=== PATIENT | female | born 1940 | race Caucasian/White ===

== ENCOUNTER → 2016-08-25 | Outpatient (CLI) | payer OTHER, BC ==
[~2016-08-25] MED LIST: ACET-1256 PO; APIX1TAB3 PO; ASCA500 PO; ASPI-435 PO; ATV5X PO; B COCAP3 PO; BSP/5 PO; CALC-51 PO; CARV6.25 PO; CHOL100040 PO; DIAZ2TAB PO; FLV400 PO; FOLI800T PO; FURO40TA3 PO; GFNSR600 PO; GUAISYP4 PO; INSU0.01 SC; INSU1INJ16 SC; INSU1INJ16 SQ; INSUINJ7 SC; IPRA1AER2 INH; LVQ750 PO; MAGN1TAB19 PO; MULT-506 PO; NVLG SQ; NVLRPUC SQ; OXYC1TAB3 PO; PRED10TA PO; PREG200C PO; SCPTP TD; VENL37.593 PO
[2016-08-25 16:46] LABS: HEMATOCRIT 40.1 % (37-47); MEAN CELL VOLUME 91.1 fL (80-100); MEAN CORPUSCULAR HEMOGLOBIN 28.9 pg (25-34); MEAN CORPUSCULAR HGB CONC 31.7 g/dl (32-36); MEAN PLATELET VOLUME 11.9 fL (7.4-10.4); PLATELET COUNT 150 K/uL (130-400)
[2016-08-25 16:59] LABS: URINE APPEARANCE CLEAR (CLEAR); URINE BILIRUBIN NEG (NEG); URINE COLOR YELLOW; URINE NITRITE NEG (NEG); URINE PH 5.5 (4.5-7.5); URINE SPECIFIC GRAVITY 1.018 (1.000-1.030); UROBILINOGEN NEG (NEG)
[2016-08-25 17:07] LABS: MANUAL MICROSCOPIC REQUIRED? NO; REVIEW REQ? NO
[2016-08-25 17:09] LABS: URINE PROTIEN/CREAT RATIO 0.3 (0-0.2); URINE TOTAL PROTEIN 34.8 mg/dl (0-11.9)
[2016-08-25 17:10] LABS: ALT/SGPT 23 U/L (12-78); AST/SGOT 17 U/L (15-37); BLOOD UREA NITROGEN 22 mg/dl (7-18); BUN/CREATININE RATIO 17.2 (10-20); CALCIUM 8.3 mg/dl (8.5-10.1); CARBON DIOXIDE 26 mmol/L (21-32); CHLORIDE 106 mmol/L (98-107); GLUCOSE 220 mg/dl (70-99); POTASSIUM 4.1 mmol/L (3.5-5.1); SODIUM 144 mmol/L (136-145)
[2016-08-25 17:15] LABS: ALB/GLOB RATIO 1.2 (0.9-2); ALKALINE PHOSPHATASE 69 U/L (45-117)
== END | disposition home or self-care (01) ==
LOC: C.LAB1850 15:30
PROVIDERS: ATTEND Internal Medicine Nephrology
DX: I12.9 Hypertensive chronic kidney disease with stage 1 through stage 4 chronic kidney disease, or unspecified chronic kidney disease (principal); N18.3 Chronic kidney disease, stage 3 (moderate); E11.9 Type 2 diabetes mellitus without complications; E55.9 Vitamin D deficiency, unspecified

== ENCOUNTER 2016-11-03 04:47 | Emergency (ER) | payer OTHER, BC ==
[~2016-11-03] VITALS: Ht 154.9 cm; Wt 90.6 kg
[~2016-11-03 04:47] MED LIST changes: -ASCA500 PO; -ASPI-435 PO; -B COCAP3 PO; -BSP/5 PO; -CALC-51 PO; -CHOL100040 PO; -FOLI800T PO; -INSU1INJ16 SQ; -MAGN1TAB19 PO; -MULT-506 PO; -NVLG SQ; -NVLRPUC SQ; -PREG200C PO
[2016-11-03 04:55] VITALS: TEMP 36.7; Ht 154.9 cm; Wt 90.6 kg
[2016-11-03] MEDS ORDERED: LIDOCAINE/EPINEPH/TETRACAINE 1 EA SYR EXT STA (05:11)
[2016-11-03] MEDS ORDERED: LIDOCAINE/EPINEPH/TETRACAINE 1 EA SYR ONE (05:19)
[2016-11-03 06:08] LABS: BUN/CREATININE RATIO 24.3 (10-20); CALCIUM 8.6 mg/dl (8.5-10.1); CREATININE 1.2 mg/dl (0.60-1.20); POTASSIUM 3.9 mmol/L (3.5-5.1)
[2016-11-03 06:12] LABS: BASO % 0.2 %; BASO ABS # 0.01 K/uL (0-0.2); COMPLETE YES; EOS % 2.9 %; HEMATOCRIT 39.3 % (37-47); IG% 0.5 %; LARGE PLATELETS 1+; LYMPH % 22.4 %; LYMPH ABS # 1.24 K/uL (1.2-3.4); MEAN CELL VOLUME 91.4 fL (80-100); MEAN CORPUSCULAR HEMOGLOBIN 30.5 pg (25-34); MEAN CORPUSCULAR HGB CONC 33.3 g/dl (32-36); MONO % 10.8 %; NEUT % 63.2 %; PLATELET COUNT 120 K/uL (130-400); PLT ESTIMATE NORMAL; POLYCHROMASIA 1+; WHITE BLOOD COUNT 5.53 K/uL (4.8-10.8)
[2016-11-03] MEDS ORDERED: PROMETHAZINE HCL INJ 12.5 MG in SODIUM CHLORIDE 0.9% 50ML 50 ML IV STA (06:15)
--- NOTE | 2016-11-03 06:36 | EMERGENCY ROOM VISIT NOTE ---
ED Visit Note First contact with patient: 05:00 I have personally evaluated and examined this patient. I agree with assessment and plan of Lambert Bansal PA-C. Fell striking right forehead.
[2016-11-03 06:43] VITALS: O2SAT 95
[2016-11-03] MEDS ORDERED: INSU1INJ16 SQ ×3 (07:01)
--- NOTE | 2016-11-03 07:06 | DIAGNOSTIC IMAGING REPORT ---
CT SCAN OF THE BRAIN WITHOUT IV CONTRAST CLINICAL HISTORY: Fall. Dizziness. Head injury. COMPARISON STUDY: CT of the brain dated 09/09/2015. TECHNIQUE: Unenhanced axial CT scan of the brain is performed from the vertex to the skull base. CT DOSE: 614.27 mGy.cm FINDINGS: Brain parenchyma: There are age-related involutional changes noting minimal subcortical and periventricular microangiopathic change. There is no hemorrhage, mass effect, or evidence of acute territorial ischemia by CT criteria. Finn-white matter is preserved. No extra-axial fluid collection is seen. Ventricles, sulci, cisterns: Prominent secondary to involutional change. Intracranial vasculature: There is atherosclerotic calcification of the cavernous carotid and vertebral arteries. Calvarium: The skeletal structures are osteopenic. There is no depressed calvarial fracture. Sinuses and mastoids: There is trace mucosal thickening within the left maxillary antrum. The remaining visualized paranasal sinuses are clear. The mastoid air cells are well pneumatized. Orbits: The bony orbits are grossly intact. There are bilateral ocular lens implants. IMPRESSION: There is no hemorrhage, mass effect, or evidence of acute territorial ischemia by CT criteria. Electronically signed by: Eliceo Hart M.D. 11/03/2016 7:04 AM Dictated Date/Time: 11/03/2016 7:02 AM
[2016-11-03] MEDS ORDERED: ACETAMINOPHEN 500 MG TAB PO STA (07:11)
--- NOTE | 2016-11-03 07:28 | EMERGENCY ROOM VISIT NOTE ---
History First contact with patient: 05:00 Chief Complaint: LACERATION/CUT (SUT/DERMABOND) Stated Complaint: FELL HIT HEAD,LAC ABOVE RIGHT EYE Nursing Triage Summary: Pt has hx of night terrors. Pt was asleep and thinks she got out of bed while sleeping and had fallen and hit head of dresser. Pt has approx. one inch laceration to right eyebrow. History of Present Illness The patient is a 76 year old female who presents to the Emergency Department by private vehicle for evaluation of a forehead laceration after sustaining a fall out of bed. She reports that while sleeping, she was having a dream that her was in a fight with his neighbor. She remembers waking up on the ground after falling. She had immediate pain. Her awoke with her falling as well. There was no seizure-like activity. There was no postictal state. She describes pain to the RIGHT-sided forehead as well as some nausea. She reports no history of head injuries. The patient does take Eliquis daily. She rates her current discomfort as a 5/10. She reports some dizziness which she reports is not uncommon. She denies any blurry vision, double vision, slurred speech, facial droop, unilateral weakness/numbness, neck pain, chest pain, abdominal pain, or extremity pain. She reports that she was on an antibiotic recently for a urinary tract infection and has been "sore" since. Review of Systems A complete 10-point Review of Systems was discussed with the patient, with pertinent positives and negatives listed in the History of Present Illness. All remaining Review of Systems questions can be considered negative unless otherwise specified. Past Medical/Surgical History Medical Problems: (1) Atrial Fibrillation (2) Atrial fibrillation or flutter (3) C. 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 (7) H/O non-ST elevation myocardial infarction (NSTEMI) (8) HTN (hypertension) (9) Hyperlipidemia Nec/Nos (10) Large Cell Lymphoma, Unsp Site, Extranodal & Solid Organ (11) Neutropenia (12) Peripheral neuropathy Surgical Problems: (1) Knee Joint Replacement Status Family History Diabetes mellitus Hypertension Social History Smoking Status: Never Smoker Alcohol Use: none Drug Use: none Marital Status: Housing Status: lives with significant other Occupation Status: retired Current/Historical Medications Scheduled Apixaban (Eliquis), 5 MG PO BID Aspirin (Aspirin 81), 1 TAB PO QAM B Complex W/ C (Vitamin B Complex-C), 1 CAP PO QAM Calcium Carbonate-Vitamin D (Calcium), 1 TAB PO HS Carvedilol (Coreg), 6.25 MG PO BID Cholecalciferol (Vitamin D-1000), 2,000 UNITS PO QAM Folic Acid (Folic Acid), 1 TAB PO BID Insulin Aspart (Novolog), 60 UNITS SQ HS Insulin Regular (Human) (Novolin R Relion), 18 UNITS SQ DAILY WITH BREAKFAST Insulin Regular (Human) (Novolin R Relion), 26 UNITS SQ DAILY WITH LUNCH Insulin Regular (Human) (Novolin R Relion), 28 UNITS SQ DAILY WITH SUPPER Magnesium Oxide (Mg Supplement (Magnesium Oxide), 1 TAB PO BID Multivitamin (Multivitamin), 1 TAB PO QAM Pregabalin (Lyrica), 200 MG PO BID Scheduled PRN Diazepam (Valium), 2 MG PO DAILY PRN for Anxiety Allergies Coded Allergies: Eptifibatide (Verified Allergy, Severe, ANAPHYLAXIS, 11/03/16) PT STATED SHE CODED TWICE WITH MED Wasp (Verified Allergy, Severe, WASP VENOM PROTEIN-ANAPHYLAXIS, 11/03/16) Azithromycin (Verified Allergy, Intermediate, palpatations, 11/03/16) Atorvastatin (Verified Allergy, Unknown, MUSCLE PAIN, 11/03/16) Cortisone (Verified Allergy, Unknown, INCREASES SUGAR AND VOMITING?, ) Ezetimibe (Verified Allergy, Unknown, MUSCLE PAIN, 11/03/16) Hydralazine (Verified Allergy, Unknown, VOMITING, 11/03/16) Ibuprofen (Verified Allergy, Unknown, VOMITING AND DIARRHEA, 11/03/16) Iodine (Verified Allergy, Unknown, SHELLFISH - VOMITING, 11/03/16) Shellfish (Verified Allergy, Unknown, VOMITING, 11/03/16) Simvastatin (Verified Allergy, Unknown, MUSCLE PAIN, 11/03/16) HMG-CoA-R Inhibitors (Verified Adverse Reaction, Intermediate, STATINS - NAUSEA/RASH; TOLERATES CRESTOR, 11/03/16) Warfarin (Verified Adverse Reaction, Intermediate, EXTREME BLEEDING TIMES , 11/03/16) Codeine (Verified Adverse Reaction, Mild, VOMITING, 11/03/16) Gemfibrozil (Verified Adverse Reaction, Mild, NAUSEA, 11/03/16) Meperidine (Verified Adverse Reaction, Mild, VOMITING, 11/03/16) Ondansetron (Verified Adverse Reaction, Mild, vomiting, 11/03/16) Sulfa Antibiotics (Verified Adverse Reaction, Unknown, VOMITING, 11/03/16) Physical Exam Vital Signs Date Time Temp Pulse Resp B/P Pulse Ox O2 Delivery O2 Flow Rate FiO2 11/03/16 08:10 63 20 159/66 96 11/03/16 06:43 82 18 134/84 95 Nasal Cannula 2.0 11/03/16 06:43 95 Nasal Cannula 2.0 11/03/16 04:55 36.7 65 18 138/67 91 Room Air Pain Rating (0-10): 5 Physical Exam VITAL SIGNS - Vital signs and nursing notes were reviewed. GENERAL - 76-year-old female appearing her stated age. Communicates well with provider and answers questions appropriately. SKIN - 3.0 cm linear laceration noted to the RIGHT-sided forehead. Edges gape apart with traction. No deep structures appreciated. HEAD - Normocephalic. No Vines's Sign or Raccoon's Eyes. No depressed skull fractures palpable. EYES - PERRL with EOMI bilaterally. Without subconjunctival hemorrhage. Palpebral conjunctiva pink and moist with no injection. EARS - No deformities of external structures noted on gross examination bilaterally. No hemotympanum present. No tympanic perforation noted. Handle of malleus, umbo, cone of light, pars tensa/flaccid all easily visualized. NOSE - Midline and without cyanosis. No epistaxis or clear watery discharge noted. Septum midline without deviation. No septal hematoma noted. No overlying ecchymosis noted. MOUTH/OROPHARYNX - Without perioral cyanosis. Tongue midline with equal elevation of palate bilaterally. No blood noted in the oropharynx. No tonsillar hypertrophy, erythema, or exudates noted. No dental fractures noted. NECK - FROM assessed. No nuchal rigidity. No tenderness to palpation over the cervical spinous processes. No cervical paraspinal muscle tenderness noted. LUNGS - Chest wall symmetric without accessory muscle use, intercostals retractions, or central cyanosis. Normal vesicular breath sounds CTA B/L. No wheezes, rales, or rhonchi appreciated. CARDIAC - RRR with S1/S2. No murmur, rubs, or gallops appreciated. ABDOMEN - Abdominal contour obese without pulsations or visible masses. BS normoactive all four quadrants. EXTREMITIES - No gross deformities noted of the extremities. +5/5 strength noted in UE/LE bilaterally. NEUROLOGIC - Cranial nerves II through XII grossly intact. Sensory intact to light touch throughout. Patient able to perform rapid alternating movements appropriately. Negative Pronator Drift. PSYCH - A&Ox3 and cooperates fully with examiner. Pt is very pleasant and interacts well with examiner. Medical Decision & Procedures ER Provider Diagnostic Interpretation: Radiological imaging and reports were reviewed by myself. Radiologist's Interpretation as follows: CT SCAN OF THE BRAIN WITHOUT IV CONTRAST CLINICAL HISTORY: Fall. Dizziness. Head injury. COMPARISON STUDY: CT of the brain dated 09/09/2015. TECHNIQUE: Unenhanced axial CT scan of the brain is performed from the vertex to the skull base. CT DOSE: 614.27 mGy.cm FINDINGS: Brain parenchyma: There are age-related involutional changes noting minimal subcortical and periventricular microangiopathic change. There is no hemorrhage, mass effect, or evidence of acute territorial ischemia by CT criteria. Finn-white matter is preserved. No extra-axial fluid collection is seen. Ventricles, sulci, cisterns: Prominent secondary to involutional change. Intracranial vasculature: There is atherosclerotic calcification of the cavernous carotid and vertebral arteries. Calvarium: The skeletal structures are osteopenic. There is no depressed calvarial fracture. Sinuses and mastoids: There is trace mucosal thickening within the left maxillary antrum. The remaining visualized paranasal sinuses are clear. The mastoid air cells are well pneumatized. Orbits: The bony orbits are grossly intact. There are bilateral ocular lens implants. IMPRESSION: There is no hemorrhage, mass effect, or evidence of acute territorial ischemia by CT criteria. Laboratory Results 11/03/16 05:32 Red Blood Count 4.30, Mean Corpuscular Volume 91.4, Mean Corpuscular Hemoglobin 30.5, Mean Corpuscular Hemoglobin Concent 33.3, Mean Platelet Volume 12.0, Neutrophils (%) (Auto) 63.2, Lymphocytes (%) (Auto) 22.4, Monocytes (%) (Auto) 10.8, Eosinophils (%) (Auto) 2.9, Basophils (%) (Auto) 0.2, Neutrophils # (Auto ) 3.49, Lymphocytes # (Auto) 1.24, Monocytes # (Auto) 0.60, Eosinophils # (Auto ) 0.16, Basophils # (Auto) 0.01 11/03/16 05:32 Test 11/03/16 05:32 White Blood Count 5.53 K/uL (4.8-10.8) Red Blood Count 4.30 M/uL (4.2-5.4) Hemoglobin 13.1 g/dL (12.0-16.0) Hematocrit 39.3 % (37-47) Mean Corpuscular Volume 91.4 fL (80-100) Mean Corpuscular Hemoglobin 30.5 pg (25-34) Mean Corpuscular Hemoglobin Concent 33.3 g/dl (32-36) Platelet Count 120 K/uL (130-400) Mean Platelet Volume 12.0 fL (7.4-10.4) Neutrophils (%) (Auto) 63.2 % Lymphocytes (%) (Auto) 22.4 % Monocytes (%) (Auto) 10.8 % Eosinophils (%) (Auto) 2.9 % Basophils (%) (Auto) 0.2 % Neutrophils # (Auto) 3.49 K/uL (1.4-6.5) Lymphocytes # (Auto) 1.24 K/uL (1.2-3.4) Monocytes # (Auto) 0.60 K/uL (0.11-0.59) Eosinophils # (Auto) 0.16 K/uL (0-0.5) Basophils # (Auto) 0.01 K/uL (0-0.2) RDW Standard Deviation 56.0 fL (36.4-46.3) RDW Coefficient of Variation 16.8 % (11.5-14.5) Immature Granulocyte % (Auto) 0.5 % Immature Granulocyte # (Auto) 0.03 K/uL (0.00-0.02) Platelet Estimate NORMAL Large Platelets 1+ Polychromasia 1+ Anion Gap 7.0 mmol/L (3-11) Est Creatinine Clear Calc Drug Dose 41.5 ml/min Estimated GFR () 51.2 Estimated GFR (Non- 44.2 BUN/Creatinine Ratio 24.3 (10-20) Calcium Level 8.6 mg/dl (8.5-10.1) Total Bilirubin 0.4 mg/dl (0.2-1) Direct Bilirubin 0.1 mg/dl (0-0.2) Aspartate Amino Transf (AST/SGOT) 18 U/L (15-37) Alanine Aminotransferase (ALT/SGPT) 21 U/L (12-78) Alkaline Phosphatase 73 U/L (45-117) Total Creatine Kinase 35 U/L (26-192) Total Protein 6.6 gm/dl (6.4-8.2) Albumin 3.1 gm/dl (3.4-5.0) Medications Administered Medications (Trade) Dose Ordered Sig/Carmen Route Start Time Stop Time Status Last Admin Dose Admin Tetracaine/ Epinephrine/ Lidocaine 1 ea 1 ea NOW STAT EXT 11/03/16 05:11 11/03/16 05:12 DC 11/03/16 05:14 1 EA Promethazine HCl/ Sodium Chloride (Phenergan Inj/ Nss 50ml) 50.5 ml @ 204 mls/hr NOW STAT IV 11/03/16 06:15 11/03/16 06:29 DC 11/03/16 06:34 204 MLS/HR Acetaminophen (Tylenol Tab) 1,000 mg NOW STAT PO 11/03/16 07:11 11/03/16 07:12 DC 11/03/16 07:23 1,000 MG Heparin Sodium (Porcine) (Heparin 100 Unit/ml 5ml Flush) 5 ml STK-MED ONCE .ROUTE 11/03/16 08:00 11/03/16 08:01 DC 11/03/16 08:01 5 ML Procedure Costs and benefits of performing primary wound closure versus no repair were discussed with the patient who verbalizes understanding. Verbal consent was obtained prior to performing the procedure. LET Gel was applied to the laceration with an occlusive dressing and allowed to set for greater than 45 minutes. After proper anesthetization, the wound was cleansed and prepped in the typical sterile fashion utilizing normal saline and Betadine. The wound was further examined and demonstrated a full-thickness laceration as described above. The wound was copiously irrigated with normal saline and Betadine. The wound was closed using 8 simple interrupted, 6-0 Nylon sutures with the wound edges being well approximated. Patient tolerated the procedure well. No complications were met. The wound was cleansed and dressed with a Bacitracin dressing. ED Course Patient was seen and evaluated by myself. Labs were drawn, saline lock in place. CT of the head was obtained. Laboratory results demonstrate no acute leukocytosis, worrisome anemia, or bandemia. The patient has no significant electrolyte abnormalities. Patient complains of headache as well as intense nausea. She is unable to take Zofran as she is allergic. She has used Phenergan in the past with success. On review of her record, she has had IV Phenergan. She was treated with 12.5 mg IV Phenergan. Laceration repair was performed by myself without issue. Laboratory results and imaging studies were reviewed with the patient who acknowledges understanding. The patient was monitored in the emergency department and discharged home in good condition with her driving. Medical Decision Given the patient's presentation and stated complaints, I did elect to perform the above-mentioned workup. The patient presents today after sustaining a facial laceration from a fall from bed. She awoke from her sleep after the injury. Neurological exam is completely unremarkable. She has no focal neurological deficits. CT the head was unremarkable. Laboratory assessment demonstrates no acute findings. The patient does take an anticoagulant daily secondary to atrial fibrillation. Her laceration was repaired without issue. She was monitored in the emergency department without change in neurological status. The patient was discharged home with the intent for close follow-up with her primary care provider. In the evaluation and treatment of this patient, the following differential diagnoses were considered: Concussion, Contrecoup Injury, Brain Tumor, Depression, Encephalitis, Hypothyroidism, Meningitis, CVA, TIA, Migraine, Cluster Headache, Intracranial Abnormality, Intracranial Hemorrhage, Subdural Hematoma, Subarachnoid Hemorrhage, Hydrocephalus. Impression Primary Impression: Fall from bed Additional Impression: Facial laceration Departure Information Dispostion Home / Self-Care Condition GOOD Referrals Lizet Jeter D.O. (PCP) Patient Instructions ED Head Injury Closed, ED Laceration Face Sutr Tape , [facility] Additional Instructions You have been treated in the Emergency Department for a Closed Head Injury. CT Scan of your head/brain demonstrated no acute bleeding or other abnormalities. This does not completely rule out the risk for future damage to the brain. You have received 8 sutures on your face. These sutures are NOT dissolvable and WILL need to be removed by a health care provider in 7 days. You can return to the Emergency Department or contact your Primary Care Provider to have the sutures removed. Proper wound care is essential for adequate wound healing and infection prevention. You can shower and clean the wound with soap and water. Do not scour over the wound, pat dry with a towel. Do not submerse the wound (i.e. bathe or dish wash) until the sutures have been removed. You can use an antibiotic ointment with a dressing over the wound for the next 3-4 days. After this time you may leave the wound dry and open to the air. If crust develops over the wound you can use a Q-tip to apply a 1:1 peroxide:water solution to clean the wound. Look for signs of infection of the wound including: increased pain, swelling, foul discharge, streaking, or increased temperature. If any of these are noticed you should return to the Emergency Department for further assessment and treatment. As with any laceration you may have received nerve damage to the surrounding tissues. This damage may or may not be permanent. You should keep the area covered with sunscreen for the first 6 months to 1 year when at risk for exposure to help minimize scarring. For pain control, you can use the following [id number] medicines (if >12 yo): - Regular strength (325mg/tab) Tylenol (acetaminophen) 2 tabs every 4-6 hours as needed. Do not exceed 12 tablets in a 24 hour period. Avoid taking more than 4 grams (4000 mg) of Tylenol per day. This includes any other sources of acetaminophen you may take on a regular basis. - Regular strength (200 mg/tab) Advil (ibuprofen) 1-2 tabs every 4-6 hours as needed. Do not exceed a dose of 3200 mg per day. You should relax in a quiet, dark place for the rest of the day. Avoid any possible triggers including: cigarette smoke, caffeine, nicotine, chocolate, wine, beer, loud noises or music, or bright lights. You should schedule a follow-up appointment in 2-3 days with your Primary Care Provider or established Neurologist for further evaluation and treatment of your Headache. Return to the Emergency Department if your current symptoms worsen despite treatment course outlined above, or if you develop any of the following symptoms : intractable pain despite aforementioned treatment course, visual disturbances , loss of vision, unilateral weakness or facial drooping, slurring of speech, loss of coordination, or loss of consciousness. Problem Qualifiers Primary Impression: Fall from bed Encounter type: initial encounter Qualified Codes: W06.XXXA - Fall from bed , initial encounter Additional Impression: Facial laceration Encounter type: initial encounter Qualified Codes: S01.81XA - Laceration without foreign body of other part of head, initial encounter
[2016-11-03 08:10] VITALS: BP 159/66; PULSE 63; O2SAT 96
[2017-02-28] MEDS ORDERED: NVLG SQ (06:54)
[2017-02-28] MEDS ORDERED: MULT-506 PO (08:26)
[2017-02-28] MEDS ORDERED: ASPI-435 PO (11:16)
[2017-02-28] MEDS ORDERED: MAGN1TAB19 PO (11:16)
[2017-02-28] MEDS ORDERED: CALC-51 PO (11:16)
[2017-02-28] MEDS ORDERED: CHOL100040 PO (13:59)
[2017-02-28] MEDS ORDERED: B COCAP3 PO (13:59)
[2017-02-28] MEDS ORDERED: ASCA500 PO (15:08)
== END 2016-11-03 08:12 | disposition home or self-care (01) ==
LOC: C.EDB 04:50
DX: S01.81XA Laceration without foreign body of other part of head, initial encounter (principal); W06.XXXA Fall from bed, initial encounter; I48.91 Unspecified atrial fibrillation; I48.92 Unspecified atrial flutter; E11.9 Type 2 diabetes mellitus without complications; I10 Essential (primary) hypertension; E78.5 Hyperlipidemia, unspecified; I25.2 Old myocardial infarction; G62.9 Polyneuropathy, unspecified; Z85.72 Personal history of non-Hodgkin lymphomas; Z96.659 Presence of unspecified artificial knee joint; Z79.82 Long term (current) use of aspirin; Z79.4 Long term (current) use of insulin; Z79.899 Other long term (current) drug therapy; Z88.1 Allergy status to other antibiotic agents; Z88.2 Allergy status to sulfonamides; Z88.5 Allergy status to narcotic agent; Z88.8 Allergy status to other drugs, medicaments and biological substances; Z91.018 Allergy to other foods; Z91.09 Other allergy status, other than to drugs and biological substances; Z83.3 Family history of diabetes mellitus; Z82.49 Family history of ischemic heart disease and other diseases of the circulatory system

== ENCOUNTER 2016-11-29 14:26 | Emergency (ER) | payer OTHER, BC ==
[~2016-11-29] VITALS: Ht 154.9 cm; Wt 89.4 kg
[~2016-11-29 14:26] MED LIST changes: -ACET-1256 PO; -ATV5X PO; -FURO40TA3 PO; -GFNSR600 PO; -GUAISYP4 PO; -INSU0.01 SC; -INSU1INJ16 SC; +INSU1INJ16 SQ; -INSUINJ7 SC; -IPRA1AER2 INH; -LVQ750 PO; -OXYC1TAB3 PO; -PRED10TA PO; -SCPTP TD; -VENL37.593 PO
[2016-11-29 14:35] VITALS: TEMP 36.6
[2016-11-29] MEDS ORDERED: SODIUM CHLORIDE 0.9% 1000ML 1,000 ML IV STA (14:56)
[2016-11-29] MEDS ORDERED: PROCHLORPERAZINE 5 MG/ML 2 ML VIAL IM STA (14:56)
[2016-11-29] MEDS ORDERED: SODIUM CHLORIDE 0.9% 1000ML 1,000 ML IV SCH (14:56)
[2016-11-29] MEDS ORDERED: MAGNESIUM SULFATE 1GM / D5W 1 GM BAG IV STA (14:56)
[2016-11-29] MEDS ORDERED: DiphenhydrAMINE HCL 50 MG/ML VIAL IV STA (14:56)
[2016-11-29 14:59] VITALS: O2SAT 95
[2016-11-29 15:00] VITALS: Ht 154.9 cm; Wt 89.4 kg
[2016-11-29] MEDS ORDERED: ACETAMINOPHEN 500 MG TAB PO STA (15:41)
[2016-11-29 15:49] LABS: BASO % 0.4 %; BASO ABS # 0.02 K/uL (0-0.2); COMPLETE YES; EOS % 2.5 %; HEMATOCRIT 40.3 % (37-47); IG% 0.5 %; LYMPH % 22.1 %; LYMPH ABS # 1.22 K/uL (1.2-3.4); MEAN CELL VOLUME 91.4 fL (80-100); MEAN CORPUSCULAR HEMOGLOBIN 29.9 pg (25-34); MEAN CORPUSCULAR HGB CONC 32.8 g/dl (32-36); MEAN PLATELET VOLUME 11.9 fL (7.4-10.4); MONO % 6.5 %; PLATELET COUNT 131 K/uL (130-400); RED BLOOD COUNT 4.41 M/uL (4.2-5.4); WHITE BLOOD COUNT 5.52 K/uL (4.8-10.8)
[2016-11-29 16:01] LABS: PARTIAL THROMBOPLASTIN RATIO 1.1; PROTHROMBIN TIME (PATIENT) 10.4 SECONDS (9.0-12.0)
[2016-11-29 16:04] LABS: CALCIUM 8.5 mg/dl (8.5-10.1)
--- NOTE | 2016-11-29 16:05 | DIAGNOSTIC IMAGING REPORT ---
CT HEAD WITHOUT CONTRAST (CT) CLINICAL HISTORY: Stroke NAUSEA AND DIZZINESS LEFT-SIDED NUMBNESS COMPARISON STUDY: 11/03/2016 TECHNIQUE: Axial CT of the brain is performed from the vertex to the skull base. IV contrast was not administered for this examination. CT DOSE: 1441.90 mGycm FINDINGS: No intraparenchymal masses are visualized in this noncontrast study. There is no CT evidence of acute cortical infarction. There are chronic bilateral subdural hematomas/hygromas. The collection on the right is minimally larger having increased from 7 mm to 10 mm. There are minimal white matter hypodensities likely on a small vessel basis. There is no evidence of pathologic ventricular dilatation. There is no evidence of acute sinusitis IMPRESSION: 1. Chronic bilateral subdural hematomas/hygromas with minimal interval increase in the size of the right-sided collection which have increased from 7 mm to 10 mm. Electronically signed by: Olaf Muir M.D. 11/29/2016 4:04 PM Dictated Date/Time: 11/29/2016 3:57 PM
[2016-11-29 16:08] LABS: BUN/CREATININE RATIO 21.8 (10-20); CREATININE 1.1 mg/dl (0.60-1.20); POTASSIUM 4.1 mmol/L (3.5-5.1)
[2016-11-29 16:12] LABS: CKMB/CK RATIO 2.9 (0-3.0)
[2016-11-29] MEDS ORDERED: PROCHLORPERAZINE 5 MG/ML 2 ML VIAL IV STA (16:12)
--- NOTE | 2016-11-29 16:17 | DIAGNOSTIC IMAGING REPORT ---
CHEST ONE VIEW PORTABLE CLINICAL HISTORY: Stroke mental status change COMPARISON STUDY: 06/22/2016 FINDINGS: Moderate cardiac megaly. Mild congestive failure. FM smooth. IMPRESSION: Mild congestive heart failure. Electronically signed by: Luciano Longoria M.D. 11/29/2016 4:16 PM Dictated Date/Time: 11/29/2016 4:16 PM
[2016-11-29 16:30] LABS: URINE APPEARANCE CLEAR (CLEAR); URINE BILIRUBIN NEG (NEG); URINE COLOR YELLOW; URINE NITRITE NEG (NEG); URINE SPECIFIC GRAVITY 1.012 (1.000-1.030); UROBILINOGEN NEG (NEG); ZZUR CULT IF INDIC CLEAN CATCH NO
[2016-11-29 16:35] LABS: MANUAL MICROSCOPIC REQUIRED? NO; REVIEW REQ? NO
--- NOTE | 2016-11-29 16:57 | EMERGENCY ROOM VISIT NOTE ---
History Report prepared by Christian: Rishi Hammond Under the Supervision of: Dr. Arun Marshall M.D. First contact with patient: 14:44 Chief Complaint: STROKE SYMPTOMS Stated Complaint: NUMBNESS LEFT SIDE OF FACE, N, DIZZY, WEAK History of Present Illness The patient is a 76 year old female who presents to the Emergency Room with complaints of intermittent left sided facial numbness beginning 2-3 weeks ago. She states that the numbness is primarily in her lips and scalp. She also complains of facial tingling, headaches, nausea, and visual changes. The patient feels that her visual changes are what cause her nausea. She denies any abdominal pain. She notes that her numbness is often present along with her headaches. The patient also notes that her prevention coordinator took of her of amiodarone recently. She has a history of four heart attacks and has four stents in [address]. She notes that she has a heart monitor on for a-fib and a- flutter. The patient also notes that she fell a few weeks ago and has been experiencing her symptoms since then. Source of History: patient Onset: 2-3 weeks ago Position: head (left face) Quality: numbness Timing: intermittent Associated Symptoms: + headache, + nausea, No abdominal pain Note: The patient also complains of facial tingling and visual changes. Review of Systems See HPI for pertinent positives & negatives. A total of 10 systems reviewed and were otherwise negative. Past Medical & Surgical Medical Problems: (1) Atrial Fibrillation (2) Atrial fibrillation or flutter (3) C. 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 (7) H/O non-ST elevation myocardial infarction (NSTEMI) (8) HTN (hypertension) (9) Hyperlipidemia Nec/Nos (10) Large Cell Lymphoma, Unsp Site, Extranodal & Solid Organ (11) Neutropenia (12) Peripheral neuropathy Surgical Problems: (1) Knee Joint Replacement Status Family History Diabetes mellitus Hypertension Social History Smoking Status: Never Smoker Alcohol Use: none Drug Use: none Marital Status: Housing Status: lives with significant other Occupation Status: retired Current/Historical Medications Scheduled Apixaban (Eliquis), 5 MG PO BID Ascorbic Acid (Vitamin C), 500 MG PO QAM Aspirin (Aspirin 81), 1 TAB PO QAM B Complex W/ C (Vitamin B Complex-C), 1 CAP PO QAM Calcium Carbonate-Vitamin D (Calcium), 1 TAB PO BID Carvedilol (Coreg), 3.125 MG PO BID Cholecalciferol (Vitamin D-1000), 2,000 UNITS PO QAM Folic Acid (Folic Acid), 1 TAB PO BID Insulin Aspart (Novolog), 60 UNITS SQ HS Insulin Regular (Human) (Novolin R Relion), 18 UNITS SQ DAILY WITH BREAKFAST Insulin Regular (Human) (Novolin R Relion), 26 UNITS SQ DAILY WITH LUNCH Insulin Regular (Human) (Novolin R Relion), 28 UNITS SQ DAILY WITH SUPPER Magnesium Oxide (Mg Supplement (Magnesium Oxide), 1 TAB PO BID Multivitamin (Multivitamin), 1 TAB PO QAM Pregabalin (Lyrica), 200 MG PO BID Scheduled PRN Diazepam (Valium), 2 MG PO DAILY PRN for Anxiety Allergies Coded Allergies: Eptifibatide (Verified Allergy, Severe, ANAPHYLAXIS, 11/29/16) PT STATED SHE CODED TWICE WITH MED Wasp (Verified Allergy, Severe, WASP VENOM PROTEIN-ANAPHYLAXIS, 11/29/16) Azithromycin (Verified Allergy, Intermediate, palpatations, 11/29/16) Atorvastatin (Verified Allergy, Unknown, MUSCLE PAIN, 11/29/16) Ezetimibe (Verified Allergy, Unknown, MUSCLE PAIN, 11/29/16) Simvastatin (Verified Allergy, Unknown, MUSCLE PAIN, 11/29/16) HMG-CoA-R Inhibitors (Verified Adverse Reaction, Intermediate, STATINS - NAUSEA/RASH; TOLERATES CRESTOR, 11/29/16) Warfarin (Verified Adverse Reaction, Intermediate, EXTREME BLEEDING TIMES , 11/29/16) Codeine (Verified Adverse Reaction, Mild, VOMITING, 11/29/16) Gemfibrozil (Verified Adverse Reaction, Mild, NAUSEA, 11/29/16) Meperidine (Verified Adverse Reaction, Mild, VOMITING, 11/29/16) Ondansetron (Verified Adverse Reaction, Mild, vomiting, 11/29/16) Cortisone (Verified Adverse Reaction, Unknown, INCREASES SUGAR AND VOMITING?, 11/29/16) Hydralazine (Verified Adverse Reaction, Unknown, VOMITING, 11/29/16) Ibuprofen (Verified Adverse Reaction, Unknown, VOMITING AND DIARRHEA, ) Iodine (Verified Adverse Reaction, Unknown, SHELLFISH - VOMITING, 11/29/16) Shellfish (Verified Adverse Reaction, Unknown, VOMITING, 11/29/16) Sulfa Antibiotics (Verified Adverse Reaction, Unknown, VOMITING, 11/29/16) Physical Exam Vital Signs Date Time Temp Pulse Resp B/P Pulse Ox O2 Delivery O2 Flow Rate FiO2 11/29/16 16:55 73 20 210/86 96 Room Air 11/29/16 16:22 75 20 245/103 95 Room Air 11/29/16 15:41 65 20 194/89 95 Room Air 11/29/16 15:32 65 11/29/16 14:59 95 Room Air 11/29/16 14:35 36.6 68 20 164/77 95 Room Air Physical Exam GENERAL: Patient is a healthy-appearing well-nourished HEAD: Normocephalic atraumatic EYES: Ocular movements intact pupils equal and react to light OROPHARYNX mucous membranes are moist no exudates present no erythema or edema present NECK: Supple no nuchal rigidity CHEST: Good equal expansion LUNGS: Clear and equal to auscultation CARDIAC: Normal S1 and S2 ABDOMEN: Soft nontender no guarding BACK: No CVA tenderness EXTREMITIES: No pain upon palpation normal muscle strength in all groups no clubbing cyanosis or edema NEURO: Patient is following commands is answering questions appropriately. Alert and oriented x3 Cranial Nerves 2-12 grossly intact Medical Decision & Procedures ER Provider Diagnostic Interpretation: X-ray results as stated below per interpretation by me and the radiologist. CT results as stated below per my review and radiologist interpretation: CT HEAD WITHOUT CONTRAST (CT) FINDINGS: No intraparenchymal masses are visualized in this noncontrast study. There is no CT evidence of acute cortical infarction. There are chronic bilateral subdural hematomas/hygromas. The collection on the right is minimally larger having increased from 7 mm to 10 mm. There are minimal white matter hypodensities likely on a small vessel basis. There is no evidence of pathologic ventricular dilatation. There is no evidence of acute sinusitis IMPRESSION: 1. Chronic bilateral subdural hematomas/hygromas with minimal interval increase in the size of the right-sided collection which have increased from 7 mm to 10 mm. Electronically signed by: Olaf Muir M.D. CHEST ONE VIEW PORTABLE FINDINGS: Moderate cardiac megaly. Mild congestive failure. FM smooth. IMPRESSION: Mild congestive heart failure. Electronically signed by: Luciano Longoria M.D. Laboratory Results 11/29/16 15:10 Red Blood Count 4.41, Mean Corpuscular Volume 91.4, Mean Corpuscular Hemoglobin 29.9, Mean Corpuscular Hemoglobin Concent 32.8, Mean Platelet Volume 11.9, Neutrophils (%) (Auto) 68.0, Lymphocytes (%) (Auto) 22.1, Monocytes (%) (Auto) 6.5, Eosinophils (%) (Auto) 2.5, Basophils (%) (Auto) 0.4, Neutrophils # (Auto) 3.75, Lymphocytes # (Auto) 1.22, Monocytes # (Auto) 0.36, Eosinophils # (Auto) 0.14, Basophils # (Auto) 0.02 11/29/16 15:10 Test 11/29/16 15:07 11/29/16 15:10 11/29/16 16:14 Bedside Prothrombin Time INR 1.0 (0.9-1.1) Bedside Glucose 210 mg/dl (70-90) White Blood Count 5.52 K/uL (4.8-10.8) Red Blood Count 4.41 M/uL (4.2-5.4) Hemoglobin 13.2 g/dL (12.0-16.0) Hematocrit 40.3 % (37-47) Mean Corpuscular Volume 91.4 fL (80-100) Mean Corpuscular Hemoglobin 29.9 pg (25-34) Mean Corpuscular Hemoglobin Concent 32.8 g/dl (32-36) Platelet Count 131 K/uL (130-400) Mean Platelet Volume 11.9 fL (7.4-10.4) Neutrophils (%) (Auto) 68.0 % Lymphocytes (%) (Auto) 22.1 % Monocytes (%) (Auto) 6.5 % Eosinophils (%) (Auto) 2.5 % Basophils (%) (Auto) 0.4 % Neutrophils # (Auto) 3.75 K/uL (1.4-6.5) Lymphocytes # (Auto) 1.22 K/uL (1.2-3.4) Monocytes # (Auto) 0.36 K/uL (0.11-0.59) Eosinophils # (Auto) 0.14 K/uL (0-0.5) Basophils # (Auto) 0.02 K/uL (0-0.2) RDW Standard Deviation 53.3 fL (36.4-46.3) RDW Coefficient of Variation 15.8 % (11.5-14.5) Immature Granulocyte % (Auto) 0.5 % Immature Granulocyte # (Auto) 0.03 K/uL (0.00-0.02) Prothrombin Time 10.4 SECONDS (9.0-12.0) Prothromb Time International Ratio 1.0 (0.9-1.1) Activated Partial Thromboplast Time 29.4 SECONDS (21.0-31.0) Partial Thromboplastin Ratio 1.1 Anion Gap 8.0 mmol/L (3-11) Est Creatinine Clear Calc Drug Dose 44.9 ml/min Estimated GFR () 56.9 Estimated GFR (Non- 49.1 BUN/Creatinine Ratio 21.8 (10-20) Calcium Level 8.5 mg/dl (8.5-10.1) Total Creatine Kinase 52 U/L (26-192) Creatine Kinase MB 1.5 ng/ml (0.5-3.6) Creatine Kinase MB Ratio 2.9 (0-3.0) Troponin I 0.028 ng/ml (0-0.045) Urine Color YELLOW Urine Appearance CLEAR (CLEAR) Urine pH 6.0 (4.5-7.5) Urine Specific [place] 1.012 (1.000-1.030) Urine Protein TRACE (NEG) Urine Glucose (UA) NEG (NEG) Urine Ketones NEG (NEG) Urine Occult Blood NEG (NEG) Urine Nitrite NEG (NEG) Urine Bilirubin NEG (NEG) Urine Urobilinogen NEG (NEG) Urine Leukocyte Esterase SMALL (NEG) Urine WBC (Auto) 5-10 /hpf (0-5) Urine RBC (Auto) 0-4 /hpf (0-4) Urine Hyaline Casts (Auto) 1-5 /lpf (0-5) Urine Epithelial Cells (Auto) 10-20 /lpf (0-5) Urine Bacteria (Auto) NEG (NEG) Labs reviewed by ED physician. Medications Administered Medications (Trade) Dose Ordered Sig/Carmen Route Start Time Stop Time Status Last Admin Dose Admin Sodium Chloride 1,000 ml @ 50 mls/hr Q20H IV 11/29/16 14:56 12/29/16 14:55 11/29/16 15:44 50 MLS/HR Sodium Chloride (Nss 1000ml) 1,000 ml @ 999 mls/hr Q1H1M STAT IV 11/29/16 14:56 11/29/16 15:56 DC 11/29/16 15:43 999 MLS/HR Magnesium Sulfate (Magnesium Sulfate) 1 gm NOW STAT IV 11/29/16 14:56 11/29/16 15:00 DC 11/29/16 16:09 1 GM Diphenhydramine HCl (Benadryl Inj) 25 mg NOW STAT IV 11/29/16 14:56 11/29/16 15:00 DC 11/29/16 16:07 25 MG Acetaminophen (Tylenol Tab) 1,000 mg NOW STAT PO 11/29/16 15:41 11/29/16 15:42 DC 11/29/16 16:11 1,000 MG Prochlorperazine Edisylate (Compazine Inj) 5 mg NOW STAT IV 11/29/16 16:12 11/29/16 16:14 DC 11/29/16 16:14 5 MG ECG Indication: other (numbness) Rate (beats per minute): 69 Rhythm: normal sinus Findings: no acute ischemic change, no ectopy Comparison ECG Date: no prior available ED Course 1445: Past medical records reviewed. The patient was evaluated in room C5. A complete history and physical examination was performed. 1456: Ordered Benadryl Inj 25 mg IV, Compazine Inj 5 mg IM, Magnesium Sulfate 1 gm IV, Sodium Chloride 1000 ml @ 999 mls/hr, Sodium Chloride 1000 ml @ 50 mls/hr , Tylenol Tab 1000 mg PO. 1541: Ordered Tylenol Tab 1000 mg PO. 1612: Ordered Compazine Inj 5 mg IV. 1640: Upon reexamination the patient is resting comfortably. I discussed results and treatment plan with the patient. She verbalizes agreement and understanding. I spoke with Dr. Preston from [facility]. The patient will be transferred to [facility] by ground. Medical Decision Differential diagnosis: Etiologies such as migraine headache, meningitis, sinusitis, CO exposure, ICH, SAH, infection, tumor, headache, sinus thrombosis, arterial dissection, as well as others were entertained. This is a 76-year-old female who presents emergency department complaining of left-sided facial numbness along with headaches that have been ongoing for the past 2-3 weeks. I will note that the patient fell out of bed 3 weeks ago and is apixiban the patient was sent for CAT scan of the head which was concerning for a chronic subdural hematoma that has increased in size since 2 weeks ago. Because the patient is on a blood thinner and the fact that we do not have a neurosurgical service here at [facility] I did discuss case with the patient and that she needed a tertiary care center. Based on this the patient wished to go to [facility]. I reviewed the benefits and risks of going to [facility] with the patient. She was given normal saline bolus, Toradol, Compazine and Benadryl for her headache. Repeat examination revealed improvement patient's symptoms. I did discuss the case with Dr. Valle at [facility] who agreed to accept the patient. Patient was in agreement with the treatment plan. Consults Time Called: 1625 Consulting Physician: Dr. Rizvi -Hematology Returned Call: [phone] I discussed the patient's case with Dr. Rizvi. She states that there is nothing to due about the patient's Apixaban, and that the patient needs to be evaluated by neurosurgery. Additional Consults: Time Called: 1638 Consulted Physician: Dr. Preston -[facility] Returned Call: [phone] Additional Comments: I discussed the patient's case with Dr. Preston. The patient will be transferred to the [facility] by ground. Impression Primary Impression: Subdural hematoma Critical Care I have personally spent greater than 90 minutes of critical care time in the direct management of this patient. This includes bedside care, interpretation of diagnostic studies, and testing, discussion with consultants, patient, and family members, and other required patient management activities. This 90 minutes is in excess of all separately billable procedures. Scribe Attestation The scribe's documentation has been prepared under my direction and personally reviewed by me in its entirety. I confirm that the note above accurately reflects all work, treatment, procedures, and medical decision making performed by me. Departure Information Dispostion Transfer Acute Care Facility ([facility] by ground) Referrals Lizet Jteer D.O. (PCP) Patient Instructions [facility]
[2016-11-29 22:38] VITALS: BP 195/86; PULSE 75; O2SAT 97
[2017-02-28] MEDS ORDERED: NVLG SQ (06:54)
[2017-02-28] MEDS ORDERED: MULT-506 PO (08:26)
[2017-02-28] MEDS ORDERED: MAGN1TAB19 PO (11:16)
[2017-02-28] MEDS ORDERED: ASPI-435 PO (11:16)
[2017-02-28] MEDS ORDERED: CALC-51 PO (11:16)
[2017-02-28] MEDS ORDERED: CHOL100040 PO (13:59)
[2017-02-28] MEDS ORDERED: B COCAP3 PO (13:59)
[2017-02-28] MEDS ORDERED: ASCA500 PO (15:08)
== END 2016-11-29 22:42 | disposition short-term general hospital (02) ==
LOC: C.EDB 14:29 → C.EDC 22:42
DX: S06.5X0A Traumatic subdural hemorrhage without loss of consciousness, initial encounter (principal); X58.XXXA Exposure to other specified factors, initial encounter; I48.91 Unspecified atrial fibrillation; E11.9 Type 2 diabetes mellitus without complications; I25.2 Old myocardial infarction; I10 Essential (primary) hypertension; E78.5 Hyperlipidemia, unspecified; Z83.3 Family history of diabetes mellitus; Z82.49 Family history of ischemic heart disease and other diseases of the circulatory system; Z79.82 Long term (current) use of aspirin; Z79.4 Long term (current) use of insulin

== ENCOUNTER → 2017-02-25 | Outpatient (CLI) | payer OTHER, BC ==
[~2017-02-25] MED LIST changes: +ASCA500 PO; +ASPI-435 PO; +B COCAP3 PO; +BSP/5 PO; +CALC-51 PO; +CHOL100040 PO; +FOLI800T PO; +MAGN1TAB19 PO; +MULT-506 PO; +NVLG SQ; +NVLRPUC SQ; +PREG200C PO
[2017-02-25 12:14] LABS: HEMATOCRIT 39.5 % (37-47); MEAN CELL VOLUME 92.7 fL (80-100); MEAN CORPUSCULAR HEMOGLOBIN 30.5 pg (25-34); MEAN CORPUSCULAR HGB CONC 32.9 g/dl (32-36); MEAN PLATELET VOLUME 12.6 fL (7.4-10.4); PLATELET COUNT 143 K/uL (130-400); RED BLOOD COUNT 4.26 M/uL (4.2-5.4); WHITE BLOOD COUNT 5.71 K/uL (4.8-10.8)
[2017-02-25 12:17] LABS: URINE APPEARANCE CLEAR (CLEAR); URINE BILIRUBIN NEG (NEG); URINE COLOR YELLOW; URINE EPITHELIAL CELL AUTO >30 /lpf (0-5); URINE NITRITE NEG (NEG); URINE SPECIFIC GRAVITY 1.027 (1.000-1.030); UROBILINOGEN NEG (NEG)
[2017-02-25 12:20] LABS: MANUAL MICROSCOPIC REQUIRED? NO; REVIEW REQ? NO
[2017-02-25 12:28] LABS: BLOOD UREA NITROGEN 27 mg/dl (7-18); BUN/CREATININE RATIO 20.4 (10-20); CALCIUM 8.6 mg/dl (8.5-10.1); CARBON DIOXIDE 26 mmol/L (21-32); CHLORIDE 105 mmol/L (98-107); GLUCOSE 300 mg/dl (70-99); POTASSIUM 4.1 mmol/L (3.5-5.1); SODIUM 140 mmol/L (136-145)
[2017-02-25 12:29] LABS: PHOSPHORUS 3.5 mg/dl (2.5-4.9)
[2017-02-25 12:36] LABS: URINE PROTIEN/CREAT RATIO 0.4 (0-0.2); URINE TOTAL PROTEIN 64.4 mg/dl (0-11.9)
== END | disposition home or self-care (01) ==
LOC: C.LAB1850 09:42
PROVIDERS: ATTEND Internal Medicine Nephrology
DX: C85.90 Non-Hodgkin lymphoma, unspecified, unspecified site (principal); E55.9 Vitamin D deficiency, unspecified; I12.9 Hypertensive chronic kidney disease with stage 1 through stage 4 chronic kidney disease, or unspecified chronic kidney disease; N18.3 Chronic kidney disease, stage 3 (moderate)

== ENCOUNTER 2017-02-28 16:08 | Emergency (ER) | payer OTHER, BC ==
[~2017-02-28] VITALS: Ht 154.9 cm; Wt 86.0 kg
[~2017-02-28 16:08] MED LIST changes: -BSP/5 PO; -FOLI800T PO; -NVLRPUC SQ; -PREG200C PO
[2017-02-28 16:12] VITALS: Ht 154.9 cm; Wt 86.0 kg
[2017-02-28] MEDS ORDERED: ACETAMINOPHEN 500 MG TAB PO STA (16:25)
--- NOTE | 2017-02-28 16:37 | EMERGENCY ROOM VISIT NOTE ---
History First contact with patient: 16:15 Chief Complaint: HEAD INJURY (MINOR) Stated Complaint: FALL- HEAD HURTS, HX SUBDURAL HEMATOMA 11/30 History of Present Illness The patient is a 77 year old female who presents to the Emergency Room via private vehicle coming by male with complaints of "fall, head hurts, history of subdural hematoma". The patient states that earlier today, around 2 PM, she was in the laundry room of her house, when the rug that was on the floor slipped out from underneath her, causing the ironing board to fall striking her in the head, and she fell to the ground. She notes blurred vision in the left eye, as well as pain in the right arm, sternal region, left hip and left mccormick region. She rates the overall pain as a 7/10. She is concerned because she has a history of subdural hematoma or this year, but notes that she does not take any anticoagulants. She takes 1 baby aspirin daily. She denies any loss of consciousness time of the fall. She denies any neck pain. Review of Systems A complete 10-point Review of Systems was discussed with the patient, with pertinent positives and negatives listed in the History of Present Illness. All remaining Review of Systems questions can be considered negative unless otherwise specified. Past Medical/Surgical History Medical Problems: (1) Atrial Fibrillation (2) Atrial fibrillation or flutter (3) C. 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 (7) H/O non-ST elevation myocardial infarction (NSTEMI) (8) HTN (hypertension) (9) Hyperlipidemia Nec/Nos (10) Large Cell Lymphoma, Unsp Site, Extranodal & Solid Organ (11) Neutropenia (12) Peripheral neuropathy Surgical Problems: (1) Knee Joint Replacement Status Family History Diabetes mellitus Hypertension Social History Smoking Status: Never Smoker Alcohol Use: none Drug Use: none Marital Status: Housing Status: lives with significant other Occupation Status: retired Current/Historical Medications Scheduled Ascorbic Acid (Vitamin C), 500 MG PO QAM Aspirin (Aspirin 81), 1 TAB PO QAM B Complex W/ C (Vitamin B Complex-C), 1 CAP PO QAM Buspirone HCl (Buspirone HCl), 5 MG PO BID Calcium Carbonate-Vitamin D (Calcium), 1 TAB PO BID Carvedilol (Coreg), 6.25 MG PO BID Cholecalciferol (Vitamin D-1000), 2,000 UNITS PO QAM Folic Acid (Folic Acid), 800 MCG PO DAILY Insulin Aspart (Novolog), 60 UNITS SQ HS Insulin Regular (Human) (Novolin R Relion), 11 UNITS SQ DAILY WITH BREAKFAST Insulin Regular (Human) (Novolin R Relion), 18 UNITS SQ DAILY WITH LUNCH Insulin Regular (Human) (Novolin R Relion), 26 UNITS SQ DAILY WITH SUPPER Magnesium Oxide (Mg Supplement (Magnesium Oxide), 1 TAB PO BID Multivitamin (Multivitamin), 1 TAB PO QAM Pregabalin (Lyrica), 200 MG PO BID Physical Exam Vital Signs Date Time Temp Pulse Resp B/P (MAP) Pulse Ox O2 Delivery O2 Flow Rate FiO2 02/28/17 17:44 73 20 170/80 95 Room Air 02/28/17 16:12 36.7 77 20 167/92 91 Physical Exam VITAL SIGNS - Vital signs and nursing notes were reviewed. Stable. GENERAL - 77-year-old yearold female appearing her stated age. Communicates well with provider and answers questions appropriately. SKIN - Gross examination of the entire body surface demonstrates no lacerations to the body surface. There is no ecchymosis noted to body examination. HEAD - Normocephalic, Atraumatic. No Vines's Sign or Raccoon's Eyes. No depressed skull fractures palpable. EYES - PERRL with EOMI bilaterally. Without subconjunctival hemorrhage. Palpebral conjunctiva pink and moist with no injection. EARS - No deformities of external structures noted on gross examination bilaterally. No hemotympanum present. No tympanic perforation noted. Handle of malleus, umbo, cone of light, pars tensa/flaccid all easily visualized. NOSE - Midline and without cyanosis. No epistaxis or clear watery discharge noted. Septum midline without deviation. No septal hematoma noted. No overlying ecchymosis noted. MOUTH/OROPHARYNX - Without perioral cyanosis. Tongue midline with equal elevation of palate bilaterally. No blood noted in the oropharynx. No tonsillar hypertrophy, erythema, or exudates noted. No dental fractures noted. NECK - There is tenderness to palpation over the cervical spinous processes. No cervical paraspinal muscle tenderness noted. LUNGS - Chest wall symmetric without accessory muscle use, intercostals retractions, or central cyanosis. No flail chest or depressed fractures noted. No paradoxical chest wall movements noted. There is slight tenderness to palpation across the anterior and posterior chest granados. There is no tenderness with deep inspiration noted against the examiner's applied pressure to the lateral chest granados. Normal vesicular breath sounds CTA B/L. No wheezes, rales, or rhonchi appreciated. CARDIAC - RRR with S1/S2. No murmur, rubs, or gallops appreciated. ABDOMEN - Abdominal contour and without pulsations or visible masses. BS normoactive all four quadrants. No rebound tenderness or guarding noted. Negative Ji's or Eagle Mcdaniels's Signs. No tenderness, palpable masses, hepatosplenomegaly, or ascites noted. EXTREMITIES - No gross deformities noted of the extremities. There is tenderness to palpation overlying the right bicep region, left anterior mccormick, and left hip region. +5/5 strength noted in UE/LE bilaterally. NEUROLOGIC - Cranial nerves II through XII grossly intact. Sensory intact to light touch throughout. . PSYCH - A&Ox3 and cooperates fully with examiner. Pt is very pleasant and interacts well with examiner. Medical Decision & Procedures ER Provider Diagnostic Interpretation: HEAD WITHOUT CONTRAST (CT) CT DOSE: 1009.45 mGy.cm HISTORY: Trauma Fall, head trauma, hx subdural hematoma TECHNIQUE: Multiaxial CT images of the head were performed without the use of intravenous contrast. A dose lowering technique was utilized adhering to the principles of ALARA. Comparison: 11/29/2016 Findings: The paranasal sinuses and mastoid air cells are clear. Interval right craniotomy flap aligned anatomically. High density component of a 5 mm residual subdural collection. This may represent chronic scarring versus a small rebleed. Interval scans are not available for comparison. Frontal atrophy is unchanged. No acute parenchymal hemorrhage. Impression: 1. Nonspecific study due to absence of postoperative scans for comparison. 2. Linear high density focus immediately deep to an interval craniotomy flap on the right. 3. This may represent a small acute subdural hematoma superimposed upon a residual chronic subdural hygroma. 4. This may also represent postoperative residual high density postoperative tissue 5. Correlation with postoperative scans would be helpful The above report was generated using voice recognition software. It may contain grammatical, syntax or spelling errors. Electronically signed by: Luciano Longoria M.D. 02/28/2017 5:04 PM Dictated Date/Time: 02/28/2017 5:[address] DOSE: HISTORY: Fall, head trauma, hx subdural hematoma TECHNIQUE: Multiaxial CT images of the cervical spine were performed and reformatted in the sagittal and coronal plane without the use of contrast. A dose lowering technique was utilized adhering to the principles of ALARA. COMPARISON: None. FINDINGS: No fractures. Severe disc space narrowing at C5-C6 and moderate to space narrowing at C6-C7 with endplate osteophytes. Prevertebral soft tissues and the C1-C2 interval are intact. Moderate facet degenerative changes seen throughout the cervical spine. There is 1 mm of anterolisthesis of C4 and C5 likely due to the long-standing degenerative change. IMPRESSION: No fractures within the cervical spine. Electronically signed by: Jeremy Moran M.D. 02/28/2017 5:04 PM Dictated Date/Time: 02/28/2017 5:00 PM [~ rep ct add3]] CHEST 1 VW FRONT-NOT PORTABLE CLINICAL HISTORY: FALL trauma COMPARISON STUDY: 11/29/2016 FINDINGS: Stable cardiomegaly. Central catheters. Vena cava. Prominent pulmonary vasculature. IMPRESSION: Mild congestive heart failure. The above report was generated using voice recognition software. It may contain grammatical, syntax or spelling errors. Electronically signed by: Luciano Longoria M.D. 02/28/2017 6:32 PM Dictated Date/Time: 02/28/2017 6:32 PM LEFT PELVIS/UNILATERAL HIP 2-3VIEWS CLINICAL HISTORY: Fall, left hip pain trauma. Pain. COMPARISON: None. DISCUSSION: The bones and joint spaces appear intact. There is no evidence of fracture, dislocation or bony disease. Mild degenerative change of both hips as well as sacroiliac joints. No acute bony abnormality. IMPRESSION: No acute bony abnormality. Mild degenerative change. The above report was generated using voice recognition software. It may contain grammatical, syntax or spelling errors. Electronically signed by: Luciano Longoria M.D. 02/28/2017 6:33 PM Dictated Date/Time: 02/28/2017 6:33 PM RIGHT HUMERUS 2 VIEWS HISTORY: Fall, right arm pain Right COMPARISON: None. FINDINGS: There is no fracture or dislocation. Soft tissues are unremarkable. No radiopaque foreign bodies. Moderate osteoarthritis of the glenohumeral joint. IMPRESSION: No fractures within the right humerus. Electronically signed by: Jeremy Moran M.D. 02/28/2017 6:30 PM Dictated Date/Time: 02/28/2017 6:29 PM LEFT TIBIA/FIBULAR 2 VIEWS HISTORY: Fall, left leg pain COMPARISON: None. FINDINGS: No fracture or dislocation. Left total knee arthroplasty. The hardware appears intact. Plantar and posterior calcaneal spurs. Calcification of the distal Achilles tendon. Mild soft tissue swelling within the ankle. A 7 mm lucent lesion within the mid shaft of the tibia. No radiopaque foreign bodies. IMPRESSION: 1. No fracture or dislocation within the left lower leg. 2. Multiple dural calcifications. 3. A 7 mm lucent lesion within the mid shaft of the tibia. This is indeterminate. Consider follow-up nonemergent skeletal survey for further evaluation. Electronically signed by: Jeremy Moran M.D. 02/28/2017 6:33 PM Dictated Date/Time: 02/28/2017 6:30 PM Laboratory Results Test 02/28/17 17:32 02/28/17 17:44 02/28/17 17:45 Bedside Prothrombin Time INR 0.9 (0.9-1.1) Troponin I 0.031 ng/ml (0-0.045) Bedside Hemoglobin 12.6 g/dl (12.0-16.0) Bedside Hematocrit 37 % (37-47) Bedside Sodium 142 mEq/L (135-144) Bedside Potassium 4.1 mEq/L (3.3-5.0) Bedside Chloride 105 mEq/L (101-112) Bedside Total CO2 26 mEq/l (24-31) Anion Gap 15.0 mmol/L (16-25) Bedside Blood Urea Nitrogen 29 mg/dl (7-18) Bedside Creatinine 1.0 mg/dl (0.6-1.3) Bedside Glucose (other) 135 mg/dl (70-99) Bedside Ionized Calcium (Melina) 1.16 mmol/l (1.12-1.32) Medications Administered Medications (Trade) Dose Ordered Sig/Carmen Route Start Time Stop Time Status Last Admin Dose Admin Acetaminophen (Tylenol Tab) 500 mg NOW STAT PO 02/28/17 16:25 02/28/17 16:28 DC 02/28/17 16:46 500 MG Medical Decision Patient was seen and evaluated as above. After obtaining a thorough history and physical examination IV access was initiated, and the above workup was performed. CT scans, and radiographs were ordered as indicated. CT scan of the head reveals a questionable acute on chronic subdural hematoma. Remainder of the studies were essentially negative for acute process, however the incidental's were discussed with the patient. She is to follow-up with a skeletal survey for the left tibia abnormality. I did discuss the case with the attending physician here, and subsequently the ER attending at [facility] , trauma team, as well as Dr. Valle, neurosurgeon. Correspondence took place, with direct visualization of the CAT scans, and Dr. Valle was able to state that this appears to be postoperative change, and not in acute subdural hematoma. He indicated that he does not feel the patient needs to be transferred. He feels comfortable following up with the patient either this week or next week. I do believe this is reasonable. Remainder of her studies were unremarkable. EKG was obtained, and reveals normal sinus rhythm, with abnormalities however no acute change compared to previous. Troponin was normal. BUN slightly high, but the patient states this is normal for her. She appears stable for outpatient management. She was offered splinting for her injuries today, but declined. She was educated upon worrisome symptoms which to return, had questions as to discharge, and was discharged home in good condition. In the evaluation and treatment of this patient, the following differential diagnoses were considered: Concussion, Contrecoup Injury, Brain Tumor, Depression, Encephalitis, Hypothyroidism, Meningitis, CVA, TIA, Migraine, Cluster Headache, Intracranial Abnormality, Intracranial Hemorrhage, Subdural Hematoma, Subarachnoid Hemorrhage, Hydrocephalus. Impression Primary Impression: Closed head injury Additional Impressions: Sternal pain Right arm pain Left hip pain Pain in left mccormick Departure Information Dispostion Home / Self-Care Condition GOOD Referrals Lizet Jeter D.O. (PCP) Patient Instructions [facility] Additional Instructions You have been treated in the Emergency Department for a Closed Head Injury and fall injuries. For pain control, you can use the following [id number] medicines (if >12 yo): - Regular strength (325mg/tab) Tylenol (acetaminophen) 2 tabs every 4-6 hours as needed. Do not exceed 12 tablets in a 24 hour period. Avoid taking more than 3 grams (3000 mg) of Tylenol per day. This includes any other sources of acetaminophen you may take on a regular basis. You should relax in a quiet, dark place for the rest of the day. Avoid any possible triggers including: cigarette smoke, caffeine, nicotine, chocolate, wine, beer, loud noises or music, or bright lights. You should schedule a follow-up appointment in 2-3 days with your Primary Care Provider or established Neurologist for further evaluation and treatment of your Headache. Please also follow-up with your family doctor regarding the lesion in the leg as we discussed. Return to the Emergency Department if your current symptoms worsen despite treatment course outlined above, or if you develop any of the following symptoms : intractable pain despite aforementioned treatment course, visual disturbances , loss of vision, unilateral weakness or facial drooping, slurring of speech, loss of coordination, or loss of consciousness. Please return to the emergency department with any new/concerning symptoms. Dr.Burke BENDER (Neurosurgeon) [place] Address: [facility] [place] [address] Problem Qualifiers
[2017-02-28] MEDS ORDERED: BSP/5 PO (16:39)
[2017-02-28] MEDS ORDERED: FOLI800T PO (16:39)
--- NOTE | 2017-02-28 17:05 | DIAGNOSTIC IMAGING REPORT ---
HEAD WITHOUT CONTRAST (CT) CT DOSE: 1009.45 mGy.cm HISTORY: Trauma Fall, head trauma, hx subdural hematoma TECHNIQUE: Multiaxial CT images of the head were performed without the use of intravenous contrast. A dose lowering technique was utilized adhering to the principles of ALARA. Comparison: 11/29/2016 Findings: The paranasal sinuses and mastoid air cells are clear. Interval right craniotomy flap aligned anatomically. High density component of a 5 mm residual subdural collection. This may represent chronic scarring versus a small rebleed. Interval scans are not available for comparison. Frontal atrophy is unchanged. No acute parenchymal hemorrhage. Impression: 1. Nonspecific study due to absence of postoperative scans for comparison. 2. Linear high density focus immediately deep to an interval craniotomy flap on the right. 3. This may represent a small acute subdural hematoma superimposed upon a residual chronic subdural hygroma. 4. This may also represent postoperative residual high density postoperative tissue 5. Correlation with postoperative scans would be helpful The above report was generated using voice recognition software. It may contain grammatical, syntax or spelling errors. Electronically signed by: Luciano Longoria M.D. 02/28/2017 5:04 PM Dictated Date/Time: 02/28/2017 5:00 PM
--- NOTE | 2017-02-28 17:06 | DIAGNOSTIC IMAGING REPORT ---
CERVICAL SPINE CT CT DOSE: HISTORY: Fall, head trauma, hx subdural hematoma TECHNIQUE: Multiaxial CT images of the cervical spine were performed and reformatted in the sagittal and coronal plane without the use of contrast. A dose lowering technique was utilized adhering to the principles of ALARA. COMPARISON: None. FINDINGS: No fractures. Severe disc space narrowing at C5-C6 and moderate to space narrowing at C6-C7 with endplate osteophytes. Prevertebral soft tissues and the C1-C2 interval are intact. Moderate facet degenerative changes seen throughout the cervical spine. There is 1 mm of anterolisthesis of C4 and C5 likely due to the long-standing degenerative change. IMPRESSION: No fractures within the cervical spine. Electronically signed by: Jeremy Moran M.D. 02/28/2017 5:04 PM Dictated Date/Time: 02/28/2017 5:00 PM
[2017-02-28 18:07] LABS: ISTAT HEMOGLOBIN 12.6 g/dl (12.0-16.0); ISTAT IONIZED CALCIUM 1.16 mmol/l (1.12-1.32)
--- NOTE | 2017-02-28 18:31 | DIAGNOSTIC IMAGING REPORT ---
RIGHT HUMERUS 2 VIEWS HISTORY: Fall, right arm pain Right COMPARISON: None. FINDINGS: There is no fracture or dislocation. Soft tissues are unremarkable. No radiopaque foreign bodies. Moderate osteoarthritis of the glenohumeral joint. IMPRESSION: No fractures within the right humerus. Electronically signed by: Jeremy Moran M.D. 02/28/2017 6:30 PM Dictated Date/Time: 02/28/2017 6:29 PM
--- NOTE | 2017-02-28 18:34 | DIAGNOSTIC IMAGING REPORT ---
CHEST 1 VW FRONT-NOT PORTABLE CLINICAL HISTORY: FALL trauma COMPARISON STUDY: 11/29/2016 FINDINGS: Stable cardiomegaly. Central catheters. Vena cava. Prominent pulmonary vasculature. IMPRESSION: Mild congestive heart failure. The above report was generated using voice recognition software. It may contain grammatical, syntax or spelling errors. Electronically signed by: Luciano Longoria M.D. 02/28/2017 6:32 PM Dictated Date/Time: 02/28/2017 6:32 PM
--- NOTE | 2017-02-28 18:34 | DIAGNOSTIC IMAGING REPORT ---
LEFT TIBIA/FIBULAR 2 VIEWS HISTORY: Fall, left leg pain COMPARISON: None. FINDINGS: No fracture or dislocation. Left total knee arthroplasty. The hardware appears intact. Plantar and posterior calcaneal spurs. Calcification of the distal Achilles tendon. Mild soft tissue swelling within the ankle. A 7 mm lucent lesion within the mid shaft of the tibia. No radiopaque foreign bodies. IMPRESSION: 1. No fracture or dislocation within the left lower leg. 2. Multiple dural calcifications. 3. A 7 mm lucent lesion within the mid shaft of the tibia. This is indeterminate. Consider follow-up nonemergent skeletal survey for further evaluation. Electronically signed by: Jeremy Moran M.D. 02/28/2017 6:33 PM Dictated Date/Time: 02/28/2017 6:30 PM
--- NOTE | 2017-02-28 18:35 | DIAGNOSTIC IMAGING REPORT ---
LEFT PELVIS/UNILATERAL HIP 2-3VIEWS CLINICAL HISTORY: Fall, left hip pain trauma. Pain. COMPARISON: None. DISCUSSION: The bones and joint spaces appear intact. There is no evidence of fracture, dislocation or bony disease. Mild degenerative change of both hips as well as sacroiliac joints. No acute bony abnormality. IMPRESSION: No acute bony abnormality. Mild degenerative change. The above report was generated using voice recognition software. It may contain grammatical, syntax or spelling errors. Electronically signed by: Luciano Longoria M.D. 02/28/2017 6:33 PM Dictated Date/Time: 02/28/2017 6:33 PM
[2017-02-28] MEDS ORDERED: PREG200C PO (20:09)
[2017-02-28 20:17] VITALS: BP 161/78; PULSE 71; TEMP 36.7; O2SAT 95
--- NOTE | 2017-02-28 22:48 | EMERGENCY ROOM VISIT NOTE ---
ED Visit Note First contact with patient: 16:15 I have personally seen and evaluated the patient with the PA. I agree with the diagnosis and management decisions and have been personally involved in the case. Please see Yrn Blackwell PA-C's notes for further details of the history, physical and visit.
== END 2017-02-28 20:19 | disposition home or self-care (01) ==
LOC: C.EDB 16:11 → C.EDD 20:19
DX: S09.90XA Unspecified injury of head, initial encounter (principal); R07.2 Precordial pain; M79.601 Pain in right arm; M25.552 Pain in left hip; M79.662 Pain in left lower leg; W19.XXXA Unspecified fall, initial encounter; W22.09XA Striking against other stationary object, initial encounter; Z85.841 Personal history of malignant neoplasm of brain; Y92.008 Other place in unspecified non-institutional (private) residence as the place of occurrence of the external cause; I48.91 Unspecified atrial fibrillation; E11.43 Type 2 diabetes mellitus with diabetic autonomic (poly)neuropathy; Z85.79 Personal history of other malignant neoplasms of lymphoid, hematopoietic and related tissues; I10 Essential (primary) hypertension; E78.5 Hyperlipidemia, unspecified; Z96.659 Presence of unspecified artificial knee joint; Z83.3 Family history of diabetes mellitus; Z82.49 Family history of ischemic heart disease and other diseases of the circulatory system; Z79.82 Long term (current) use of aspirin; Z79.4 Long term (current) use of insulin; Z79.899 Other long term (current) drug therapy

== ENCOUNTER → 2017-03-21 | Outpatient (CLI) | payer OTHER, BC ==
[~2017-03-21] MED LIST changes: -APIX1TAB3 PO; +BSP/5 PO; -DIAZ2TAB PO; -FLV400 PO; +FOLI800T PO; +NVLRPUC SQ; +PREG200C PO
--- NOTE | 2017-03-21 15:33 | DIAGNOSTIC IMAGING REPORT ---
BONE SCAN WHOLE BODY CLINICAL HISTORY: C83.30 lymphoma. Lesion of the tibia COMPARISON STUDY: Conventional radiographic study of the left tibia and fibula dated 02/28/2017, CT scan of the abdomen and pelvis dated 09/09/2015, head CT dated 02/28/2017 FINDINGS: The patient was injected with 22.2 mCi of technetium 99m MDP. Three-hour delayed whole body images were acquired. There is an area of increased activity involving the right calvarium, consistent with the history of a prior craniotomy. There are photopenic defects within each knee consistent with bilateral knee arthroplasties. There are no areas of increased activity to correspond to the 7 mm lytic lesion within the midshaft of the left tibia. There is a subtle focus of increased activity within the mid thoracic spine, likely degenerative. There is a focus of increased activity within the mid to lower lumbar spine likely corresponding to degenerative changes as visualized in the prior abdominal CT scan dated 09/09/2015 IMPRESSION: 1. No scintigraphic evidence of metastatic disease 2. Foci of increased activity within the spine likely degenerative 3. Focus of increased activity within the right calvarium consistent with post craniotomy changes 4. There are no areas of increased activity to correspond to the recently described 7 mm lucent lesion within the midshaft of the left tibia Electronically signed by: Olaf Muir M.D. 03/21/2017 3:31 PM Dictated Date/Time: 03/21/2017 3:26 PM
== END | disposition home or self-care (01) ==
LOC: C.NUCL 11:27
PROVIDERS: ATTEND Nurse Practitioner Family
DX: C83.30 Diffuse large B-cell lymphoma, unspecified site (principal)

== ENCOUNTER 2017-04-25 10:39 | Observation (INO) | payer OTHER, BC ==
[~2017-04-25] VITALS: Ht 154.9 cm; Wt 86.1 kg
[2017-04-25] VITALS (8 sets, daily range): BP systolic 151–203; BP diastolic 77–97; PULSE 66–75; TEMP 36.3–36.4; O2SAT 91–99; Ht 154.9 cm; Wt 86.1 kg
[~2017-04-25 10:39] MED LIST changes: -NVLRPUC SQ
[2017-04-25] MEDS ORDERED: NITROGLYCERIN OINT 2% 1GM PACKET EXT ONE (11:15)
[2017-04-25 11:17] LABS: BASO % 0.2 %; BASO ABS # 0.01 K/uL (0-0.2); COMPLETE YES; EOS % 2.6 %; HEMATOCRIT 40.2 % (37-47); IG% 0.4 %; LYMPH % 19.8 %; LYMPH ABS # 0.98 K/uL (1.2-3.4); MEAN CELL VOLUME 90.7 fL (80-100); MEAN CORPUSCULAR HGB CONC 33.1 g/dl (32-36); MEAN PLATELET VOLUME 12.1 fL (7.4-10.4); MONO % 6.9 %; NEUT % 70.1 %; PLATELET COUNT 136 K/uL (130-400); RED BLOOD COUNT 4.43 M/uL (4.2-5.4); WHITE BLOOD COUNT 4.95 K/uL (4.8-10.8)
--- NOTE | 2017-04-25 11:28 | DIAGNOSTIC IMAGING REPORT ---
CHEST ONE VIEW PORTABLE HISTORY: Atypical chest pain. COMPARISON: Chest 02/28/2017. FINDINGS: Left subclavian Port-A-Cath terminates in the SVC. There are suture material within the left lung apex, unchanged. The heart remains enlarged. No pleural effusions. No pneumothorax. There is mild central pulmonary vascular congestion without overt edema. A few linear densities the left lung base favor subsegmental atelectasis. No new focal lung consolidations to suggest pneumonia. IMPRESSION: Cardiomegaly with mild central pulmonary vascular congestion without overt edema. Electronically signed by: Jeremy Moran M.D. 04/25/2017 11:27 AM Dictated Date/Time: 04/25/2017 11:26 AM
[2017-04-25 11:30] LABS: PROTHROMBIN TIME (PATIENT) 10.3 SECONDS (9.0-12.0)
[2017-04-25 11:34] LABS: BUN/CREATININE RATIO 22.1 (10-20); CALCIUM 9.3 mg/dl (8.5-10.1); CREATININE 1.2 mg/dl (0.60-1.20); POTASSIUM 3.8 mmol/L (3.5-5.1)
[2017-04-25] MEDS ORDERED: NVLRPUC SQ (11:38)
[2017-04-25] MEDS ORDERED: PANTOprazole SOD 40 MG TAB PO STA (13:03)
[2017-04-25] MEDS ORDERED: ACETAMINOPHEN 325 MG TAB PO PRN (13:15)
[2017-04-25] MEDS ORDERED: MAGNESIUM HYDROXIDE SUSP 30 ML UDC PO PRN (13:15)
[2017-04-25] MEDS ORDERED: ALUMINUM/MAGNESIUM/SIMETH (MAALOX MAX) 30 ML UDC PO PRN (13:15)
[2017-04-25] MEDS ORDERED: NITROGLYCERIN 0.4 MG SL PER TAB CHARGE SL PRN (13:15)
[2017-04-25] MEDS ORDERED: GI COCKTAIL PO PRN (13:15)
[2017-04-25] MEDS ORDERED: ONDANSETRON INJ 2 MG/ML 2 ML VIAL IV PRN (13:15)
--- NOTE | 2017-04-25 13:48 | History and Physical ---
History & Physical Date & Time of Service: Apr 25, 2017 at 13:41 Chief Complaint: Chest Pain Primary Care Physician: Lizet Jeter D.O. History of Present Illness 77-year-old female with accelerated course of chest pain over the last 1 month. Patient is diabetic and has known coronary disease with stents in the past. Patient is recovering from lymphoma. She also suffered a subdural hematoma from a fall. She has been her normal state up into the last 1 month when she's had increased stress in her life as her and her are transitioning to a [facility] this is place undue strain upon the patient she began developing chest pain which she said she didn't have time for this however continues to be reproducible and has been increasing in frequency today being associated with shortness of breath and some nausea. The patient has chronic right shoulder pain due to previous orthopedic injury and she cannot tell whether that's worse because she is preparing to move or whether to associate with her chest pain. Her blood glucoses have also been okay during last period of time in the emergency department her initial evaluation is unremarkable including EKG and troponin checks Past Medical/Surgical History Medical Problems: (1) Atrial Fibrillation Status: Chronic (2) Atrial fibrillation or flutter Status: Chronic (3) C. 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 (7) H/O non-ST elevation myocardial infarction (NSTEMI) Status: Resolved (8) HTN (hypertension) Status: Chronic (9) Hyperlipidemia Nec/Nos Status: Chronic (10) Large Cell Lymphoma, Unsp Site, Extranodal & Solid Organ Status: Chronic (11) Neutropenia Status: Resolved (12) Peripheral neuropathy Status: Chronic Surgical Problems: (1) Knee Joint Replacement Status Status: Resolved Family History Diabetes mellitus Hypertension Social History Smoking Status: Never Smoker Drug Use: none Marital Status: Housing status: lives with family Occupational Status: retired Immunizations History of Influenza Vaccine: Yes Influenza Vaccine Date: Jul 20, 2013 History of Tetanus Vaccine?: Yes Tetanus Immunization Date: Sep 18, 2007 History of Pneumococcal: Yes Pneumococcal Date: Apr 18, 1998 History of Hepatitis B Vaccine: No Multi-Drug Resistant Organisms History of MDRO: No Allergies Coded Allergies: Eptifibatide (Verified Allergy, Severe, ANAPHYLAXIS, 04/25/17) PT STATED SHE CODED TWICE WITH MED Wasp (Verified Allergy, Severe, WASP VENOM PROTEIN-ANAPHYLAXIS, 04/25/17) Azithromycin (Verified Allergy, Intermediate, palpatations, 04/25/17) Atorvastatin (Verified Allergy, Unknown, MUSCLE PAIN, 04/25/17) Ezetimibe (Verified Allergy, Unknown, MUSCLE PAIN, 04/25/17) Simvastatin (Verified Allergy, Unknown, MUSCLE PAIN, 04/25/17) HMG-CoA-R Inhibitors (Verified Adverse Reaction, Intermediate, STATINS - NAUSEA/RASH; TOLERATES CRESTOR, 04/25/17) Warfarin (Verified Adverse Reaction, Intermediate, EXTREME BLEEDING TIMES , 04/25/17) Codeine (Verified Adverse Reaction, Mild, VOMITING, 04/25/17) Gemfibrozil (Verified Adverse Reaction, Mild, NAUSEA, 04/25/17) Meperidine (Verified Adverse Reaction, Mild, VOMITING, 04/25/17) Ondansetron (Verified Adverse Reaction, Mild, vomiting, 04/25/17) Cortisone (Verified Adverse Reaction, Unknown, INCREASES SUGAR AND VOMITING?, 04/25/17) Hydralazine (Verified Adverse Reaction, Unknown, VOMITING, 04/25/17) Ibuprofen (Verified Adverse Reaction, Unknown, VOMITING AND DIARRHEA, 04/25) Iodine (Verified Adverse Reaction, Unknown, SHELLFISH - VOMITING, 04/25/17) Shellfish (Verified Adverse Reaction, Unknown, VOMITING, 04/25/17) Sulfa Antibiotics (Verified Adverse Reaction, Unknown, VOMITING, 04/25/17) Home Medications Scheduled Ascorbic Acid (Vitamin C), 500 MG PO QAM B Complex W/ C (Vitamin B Complex-C), 1 CAP PO QAM Buspirone HCl (Buspirone HCl), 5 MG PO BID Calcium Carbonate-Vitamin D (Calcium), 1 TAB PO BID Carvedilol (Coreg), 6.25 MG PO BID Cholecalciferol (Vitamin D-1000), 2,000 UNITS PO QAM Folic Acid (Folic Acid), 800 MCG PO DAILY Insulin Aspart (Novolog), 60 UNITS SQ HS Insulin Human Regular (Novolin R), SQ TIDM Insulin Regular (Human) (Novolin R Relion), 11 UNITS SQ DAILY WITH BREAKFAST Insulin Regular (Human) (Novolin R Relion), 18 UNITS SQ DAILY WITH LUNCH Insulin Regular (Human) (Novolin R Relion), 28 UNITS SQ DAILY WITH SUPPER Magnesium Oxide (Mg Supplement (Magnesium Oxide), 1 TAB PO DAILY Multivitamin (Multivitamin), 1 TAB PO QAM Pregabalin (Lyrica), 200 MG PO BID Review of Systems ROS: well nourished well developed No double vision blurry vision No problems with speech or swallowing No palpitations, but has had increasing chest pain and pressure with associated shortness of breath No Wheezing or breathing issues not associated with chest pain No abdominal pain nausea vomiting diarrhea changes in appetite or weight No burning urine urine frequency or changes in color No focal joint pain or muscle pain No skin rashes or oral lesions No unusual bruising or bleeding No focused back pain or numbness or loss of strength, chronic right shoulder pain No changes in memory or confusion Physical Exam Vital Signs Date Time Temp Pulse Resp B/P (MAP) Pulse Ox O2 Delivery O2 Flow Rate FiO2 04/25/17 11:56 61 18 146/72 94 Nasal Cannula 2.0 04/25/17 11:13 67 20 191/77 Nasal Cannula 2.0 04/25/17 11:10 93 Nasal Cannula 2.0 04/25/17 11:07 66 04/25/17 11:05 Nasal Cannula 2.0 04/25/17 10:48 36.7 71 22 179/89 97 Room Air General Appearance: WD/WN, + mild distress Head: normocephalic, atraumatic Eyes: PERRL, EOMI Respiratory/Chest: chest non-tender, lungs clear, normal breath sounds Cardiovascular: regular rate, rhythm, + systolic murmur Abdomen/GI: normal bowel sounds, non tender, soft, + pertinent finding (slight distention but no change in bowel habits) Back: no CVA tenderness, no muscle spasm Extremities/Musculoskelatal: no pedal edema, normal range of motion Neurologic/Psych: alert, oriented x 3 Skin: normal color, warm/dry, no rash Diagnostics Laboratory Results Results Past 24 Hours Test 04/25/17 11:00 04/25/17 11:54 Range/Units White Blood Count 4.95 4.8-10.8 K/uL Red Blood Count 4.43 4.2-5.4 M/uL Hemoglobin 13.3 12.0-16.0 g/dL Hematocrit 40.2 37-47 % Mean Corpuscular Volume 90.7 80-100 fL Mean Corpuscular Hemoglobin 30.0 25-34 pg Mean Corpuscular Hemoglobin Concent 33.1 32-36 g/dl Platelet Count 136 130-400 K/uL Mean Platelet Volume 12.1 7.4-10.4 fL Neutrophils (%) (Auto) 70.1 % Lymphocytes (%) (Auto) 19.8 % Monocytes (%) (Auto) 6.9 % Eosinophils (%) (Auto) 2.6 % Basophils (%) (Auto) 0.2 % Neutrophils # (Auto) 3.47 1.4-6.5 K/uL Lymphocytes # (Auto) 0.98 1.2-3.4 K/uL Monocytes # (Auto) 0.34 0.11-0.59 K/uL Eosinophils # (Auto) 0.13 0-0.5 K/uL Basophils # (Auto) 0.01 0-0.2 K/uL RDW Standard Deviation 52.3 36.4-46.3 fL RDW Coefficient of Variation 15.8 11.5-14.5 % Immature Granulocyte % (Auto) 0.4 % Immature Granulocyte # (Auto) 0.02 0.00-0.02 K/uL Prothrombin Time 10.3 9.0-12.0 SECONDS Prothromb Time International Ratio 1.0 0.9-1.1 Activated Partial Thromboplast Time 25.9 21.0-31.0 SECONDS Partial Thromboplastin Ratio 1.0 Sodium Level 142 136-145 mmol/L Potassium Level 3.8 3.5-5.1 mmol/L Chloride Level 105 98-107 mmol/L Carbon Dioxide Level 28 21-32 mmol/L Anion Gap 9.0 3-11 mmol/L Blood Urea Nitrogen 27 7-18 mg/dl Creatinine 1.20 0.60-1.20 mg/dl Est Creatinine Clear Calc Drug Dose 40.4 ml/min Estimated GFR () 50.8 Estimated GFR (Non- 43.9 BUN/Creatinine Ratio 22.1 10-20 Random Glucose 188 70-99 mg/dl Calcium Level 9.3 8.5-10.1 mg/dl Bedside Troponin I 0.040 0-0.045 ng/ml CXR normal other (EKG shows sinus rhythm with chronic T-wave inversions that are old compared to summer) Impression Assessment and Plan 77 showed female here with accelerated chest pain history of coronary disease and diabetes Chest pain the patient will have serial troponins she'll consult with Oliver Gilbert and Dr. Iraheta last stress that she had was a nuclear stress test 2014 given the fact that her last catheterization 2011 that shows nonocclusive disease this may have progressed since that time. We'll continue aspirin and statin beta suraj therapy. She'll maintain on Nitropaste in the past she's been on Eliquis for A. fib this has since been stopped due to her subdural hematoma Regarding her diabetes will continue basal bolus with sliding scale insulin GERD we'll continue her Protonix Anxiety the patient is on BuSpar will continue Lyrica for restless leg syndrome Heparin will be used for DVT prevention VTE Prophylaxis VTE Risk Assessment Done? Y/N: Yes Risk Level: Moderate Given or contraindicated: Unfractionated heparin SQ
[2017-04-25] MEDS ORDERED: ALUMINUM/MAGNESIUM SUSP 18 ML, LIDOCAINE HCL 2% VISCOUS SOLN 6 ML, BARCODE IDENTIFIER 1 EA PO PRN ×2 (14:30)
[2017-04-25] MEDS ORDERED: GLUCOSE 10 TABS/TUBE PO PRN (14:45)
[2017-04-25] MEDS ORDERED: GLUCOSE 40% GEL 15 GM TUBE PO PRN (14:45)
[2017-04-25] MEDS ORDERED: DEXTROSE 50% 50 ML SYR IV PRN (14:45)
[2017-04-25] MEDS ORDERED: GLUCAGON FOR INJ 1 MG VIAL SQ PRN (14:45)
[2017-04-25] MEDS: NITROGLYCERIN OINT 2% 1GM PACKET EXT SCH ×2 (16:14→20:47)
--- NOTE | 2017-04-25 16:30 | ECHOCARDIOGRAM REPORT ---
*NOTICE TO RECEIVING [employer]PUBL[employer] AGENCY This information is strictly Confidential and protected under [place] law. [place] law prohibits you from making any further disclosure of this information unless further disclosure is expressly permitted by the written consent of the person to whom it pertains or is authorized by law. A general authorization for the release of medical or other information is not sufficient for this purpose. Hospital accepts no responsibility if the information is made available to any other person, INCLUDING THE PATIENT. Interpretation Summary * Conclusions -- * 1. Normal left ventricular size and systolic function. EF 60-65%. No regional wall motion abnormalities. Severe concentric left ventricular hypertrophy. * 2. Normal right ventricular size with mildly reduced systolic function. * 3. The left atrium is moderately dilated. * 4. No significant valvular abnormalities visualized. * 5. Technically difficult study, enhanced with IV Definity. * 6. No significant change from prior study on 06/20/2016. Procedure Details * A complete two-dimensional transthoracic echocardiogram was performed (2D, M-mode, Doppler and color flow Doppler). * The study was technically difficult. * A contrast injection of Definity was performed to improve assessment of LV function. * Contrast was injected into an intravenous site in the central line. * One vial of Definity ultrasound contrast was diluted in normal saline to a total volume of 10 ml. A total of '2' ml of solution was administered during imaging. * Lot # [id number] of Definity utilized for procedure. * Expiration date MAY 11. * The attending nurse who injected the contrast agent was FEDERICO GORDON RN. Left Ventricle * Normal left ventricular size and systolic function. EF 60-65%. No regional wall motion abnormalities. Severe concentric left ventricular hypertrophy. Right Ventricle * Normal right ventricular size with mildly reduced systolic function. * There is mild right ventricular hypertrophy. Atria * The left atrium is moderately dilated. * Right atrial size is normal. * There is no evidence of atrial septal defect, but resolution does not allow assessment for a patent foramen ovale. Mitral Valve * There is mild to moderate mitral annular calcification. * There is no mitral valve stenosis. * There is trace mitral regurgitation. Tricuspid Valve * The tricuspid valve is not well visualized. * There is no tricuspid stenosis. * Significant tricuspid regurgitation is absent. Aortic Valve * The aortic valve is not well visualized. * No hemodynamically significant valvular aortic stenosis. * There is no significant aortic regurgitation. Pulmonic Valve * The pulmonary valve is inadequately visualized, but the Doppler data is adequate for interpretation. * There is no pulmonic valvular stenosis. * There is no significant pulmonary regurgitation. Great Vessels * The aortic root is normal size. * Ascending aorta of normal dimension * Blunted pulmonary venous flow pattern. Pericardium/Pleural * Trace pericardial effusion. Great Vessels * IVC not well visualized, but appears normal in size. Left Ventricular Diastolic Function * No significant diastolic dysfunction. MMode 2D Measurements and Calculations IVSd 1.6 cm IVSs 2.0 cm LVIDd 4.4 cm LVIDs 2.8 cm LVPWd 1.5 cm LVPWs 2.0 cm IVS/LVPW 1.0 FS 36.5 % EDV(Teich) 86.4 ml ESV(Teich) 28.9 ml EF(Teich) 66.5 % EDV(cubed) 83.6 ml ESV(cubed) 21.4 ml EF(cubed) 74.4 % % IVS thick 29.7 % % LVPW thick 34.7 % LV mass(C)d 274.6 grams LV mass(C)dI 146.9 grams/m\S\2 LV mass(C)s 249.1 grams LV mass(C)sI 133.3 grams/m\S\2 SV(Teich) 57.4 ml SI(Teich) 30.7 ml/m\S\2 SV(cubed) 62.2 ml SI(cubed) 33.3 ml/m\S\2 Ao root diam 3.5 cm Ao root area 9.6 cm\S\2 asc Aorta Diam 2.9 cm LVOT diam 2.0 cm LVOT area 3.0 cm\S\2 Doppler Measurements and Calculations MV E max elvia 94.9 cm/sec MV A max elvia 27.5 cm/sec MV E/A 3.5 MV P1/2t max elvia 99.2 cm/sec MV P1/2t 62.4 msec MVA(P1/2t) 3.5 cm\S\2 MV dec slope 465.9 cm/sec\S\2 MV dec time 0.22 sec Ao V2 max 109.8 cm/sec Ao max PG 4.9 mmHg Ao max PG (full) 3.6 mmHg MISHEL(V,A) 1.5 cm\S\2 MISHEL(V,D) 1.5 cm\S\2 LV V1 max PG 1.3 mmHg LV V1 max 56.1 cm/sec TV E max elvia 34.0 cm/sec PA V2 max 63.8 cm/sec PA max PG 1.6 mmHg
[2017-04-25] MEDS: INSULIN ASPART 100 UNITS/ML 3 ML PEN SC SCH ×2 (17:36→20:44)
--- NOTE | 2017-04-25 18:34 | EMERGENCY ROOM VISIT NOTE ---
History Report prepared by Christian: Rishi Hammond Under the Supervision of: Dr. Zachery Choi M.D. First contact with patient: 10:50 Chief Complaint: CHEST PAIN Stated Complaint: CHEST PAIN History of Present Illness The patient is a 77 year old female who presents to the Emergency Room with complaints of waxing and waning chest pain beginning three weeks ago. She has a history of multiple myocardial infarctions. She states that her pain is localized to her central chest which is unlike her previous heart attacks. The patient states that she had a jabbing episode of pain to the right side. Her central pain feels different. She also complains of nausea, diarrhea, and SOB. She denies any known fevers, abdominal pain, or vomiting. The patient states that she has felt a lot of indigestion recently. She notes that she has leg swelling but that this is chronic. She states that she has been sweating at night, but denies sweating more with increased pain. The patient has a previous history of Non-Hodgkin's Lymphoma and has been cancer free for about two years. She is on supplemental oxygen at home for heart failure. The pain today started at 6 AM. Source of History: patient Onset: Three weeks ago Position: chest (central) Timing: intermittent Associated Symptoms: + SOB, + nausea, + diarrhea, No fevers (known), No vomiting, No abdominal pain Review of Systems See HPI for pertinent positives & negatives. A total of 10 systems reviewed and were otherwise negative. Past Medical & Surgical Medical Problems: (1) Atrial Fibrillation (2) Atrial fibrillation or flutter (3) C. 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 (7) H/O non-ST elevation myocardial infarction (NSTEMI) (8) HTN (hypertension) (9) Hyperlipidemia Nec/Nos (10) Large Cell Lymphoma, Unsp Site, Extranodal & Solid Organ (11) Neutropenia (12) Peripheral neuropathy Surgical Problems: (1) Knee Joint Replacement Status Family History Diabetes mellitus Hypertension Social History Smoking Status: Never Smoker Alcohol Use: none Drug Use: none Marital Status: Housing Status: lives with significant other Occupation Status: retired Current/Historical Medications Scheduled Ascorbic Acid (Vitamin C), 500 MG PO QAM B Complex W/ C (Vitamin B Complex-C), 1 CAP PO QAM Buspirone HCl (Buspirone HCl), 5 MG PO BID Calcium Carbonate-Vitamin D (Calcium), 1 TAB PO BID Carvedilol (Coreg), 6.25 MG PO BID Cholecalciferol (Vitamin D-1000), 2,000 UNITS PO QAM Folic Acid (Folic Acid), 800 MCG PO DAILY Insulin Aspart (Novolog), 60 UNITS SQ HS Insulin Human Regular (Novolin R), SQ TIDM Insulin Regular (Human) (Novolin R Relion), 11 UNITS SQ DAILY WITH BREAKFAST Insulin Regular (Human) (Novolin R Relion), 18 UNITS SQ DAILY WITH LUNCH Insulin Regular (Human) (Novolin R Relion), 28 UNITS SQ DAILY WITH SUPPER Magnesium Oxide (Mg Supplement (Magnesium Oxide), 1 TAB PO DAILY Multivitamin (Multivitamin), 1 TAB PO QAM Pregabalin (Lyrica), 200 MG PO BID Allergies Coded Allergies: Eptifibatide (Verified Allergy, Severe, ANAPHYLAXIS, 04/25/17) PT STATED SHE CODED TWICE WITH MED Wasp (Verified Allergy, Severe, WASP VENOM PROTEIN-ANAPHYLAXIS, 04/25/17) Azithromycin (Verified Allergy, Intermediate, palpatations, 04/25/17) Atorvastatin (Verified Allergy, Unknown, MUSCLE PAIN, 04/25/17) Ezetimibe (Verified Allergy, Unknown, MUSCLE PAIN, 04/25/17) Simvastatin (Verified Allergy, Unknown, MUSCLE PAIN, 04/25/17) HMG-CoA-R Inhibitors (Verified Adverse Reaction, Intermediate, STATINS - NAUSEA/RASH; TOLERATES CRESTOR, 04/25/17) Warfarin (Verified Adverse Reaction, Intermediate, EXTREME BLEEDING TIMES , 04/25/17) Codeine (Verified Adverse Reaction, Mild, VOMITING, 04/25/17) Gemfibrozil (Verified Adverse Reaction, Mild, NAUSEA, 04/25/17) Meperidine (Verified Adverse Reaction, Mild, VOMITING, 04/25/17) Ondansetron (Verified Adverse Reaction, Mild, vomiting, 04/25/17) Cortisone (Verified Adverse Reaction, Unknown, INCREASES SUGAR AND VOMITING?, 04/25/17) Hydralazine (Verified Adverse Reaction, Unknown, VOMITING, 04/25/17) Ibuprofen (Verified Adverse Reaction, Unknown, VOMITING AND DIARRHEA, 04/25) Iodine (Verified Adverse Reaction, Unknown, SHELLFISH - VOMITING, 04/25/17) Shellfish (Verified Adverse Reaction, Unknown, VOMITING, 04/25/17) Sulfa Antibiotics (Verified Adverse Reaction, Unknown, VOMITING, 04/25/17) Physical Exam Vital Signs Date Time Temp Pulse Resp B/P (MAP) Pulse Ox O2 Delivery O2 Flow Rate FiO2 04/25/17 11:56 61 18 146/72 94 Nasal Cannula 2.0 04/25/17 11:13 67 20 191/77 Nasal Cannula 2.0 04/25/17 11:10 93 Nasal Cannula 2.0 04/25/17 11:07 66 04/25/17 11:05 Nasal Cannula 2.0 04/25/17 10:48 36.7 71 22 179/89 97 Room Air Physical Exam Constitutional: Vital signs reviewed. Eyes: Pupils are equal round reactive to light. Conjunctiva are noninjected. ENT: Pharynx is clear without erythema or exudate. Mucous membranes are moist. Neck supple without meningeal signs. Respiratory: Clear to auscultation bilaterally. Breath sounds are equal bilaterally. Cardiovascular: Regular rate and rhythm. No rubs or gallops. GI: Soft, nondistended and nontender. Bowel sounds are present. Musculoskeletal: No peripheral edema. No lower extremity tenderness. Port left chest. Integumentary: No cyanosis. Neurological: The patient is awake and alert. No focal deficits. Psychiatric: Normal affect. Medical Decision & Procedures ER Provider Diagnostic Interpretation: X-ray results as stated below per interpretation by me and the radiologist: CHEST ONE VIEW PORTABLE FINDINGS: Left subclavian Port-A-Cath terminates in the SVC. There are suture material within the left lung apex, unchanged. The heart remains enlarged. No pleural effusions. No pneumothorax. There is mild central pulmonary vascular congestion without overt edema. A few linear densities the left lung base favor subsegmental atelectasis. No new focal lung consolidations to suggest pneumonia. IMPRESSION: Cardiomegaly with mild central pulmonary vascular congestion without overt edema. Electronically signed by: Jeremy Moran M.D. 04/25/2017 11:27 AM Laboratory Results 04/25/17 11:00 Red Blood Count 4.43, Mean Corpuscular Volume 90.7, Mean Corpuscular Hemoglobin 30.0, Mean Corpuscular Hemoglobin Concent 33.1, Mean Platelet Volume 12.1, Neutrophils (%) (Auto) 70.1, Lymphocytes (%) (Auto) 19.8, Monocytes (%) (Auto) 6.9, Eosinophils (%) (Auto) 2.6, Basophils (%) (Auto) 0.2, Neutrophils # (Auto) 3.47, Lymphocytes # (Auto) 0.98, Monocytes # (Auto) 0.34, Eosinophils # (Auto) 0.13, Basophils # (Auto) 0.01 04/25/17 11:00 Test 04/25/17 11:00 04/25/17 11:54 White Blood Count 4.95 K/uL (4.8-10.8) Red Blood Count 4.43 M/uL (4.2-5.4) Hemoglobin 13.3 g/dL (12.0-16.0) Hematocrit 40.2 % (37-47) Mean Corpuscular Volume 90.7 fL (80-100) Mean Corpuscular Hemoglobin 30.0 pg (25-34) Mean Corpuscular Hemoglobin Concent 33.1 g/dl (32-36) Platelet Count 136 K/uL (130-400) Mean Platelet Volume 12.1 fL (7.4-10.4) Neutrophils (%) (Auto) 70.1 % Lymphocytes (%) (Auto) 19.8 % Monocytes (%) (Auto) 6.9 % Eosinophils (%) (Auto) 2.6 % Basophils (%) (Auto) 0.2 % Neutrophils # (Auto) 3.47 K/uL (1.4-6.5) Lymphocytes # (Auto) 0.98 K/uL (1.2-3.4) Monocytes # (Auto) 0.34 K/uL (0.11-0.59) Eosinophils # (Auto) 0.13 K/uL (0-0.5) Basophils # (Auto) 0.01 K/uL (0-0.2) RDW Standard Deviation 52.3 fL (36.4-46.3) RDW Coefficient of Variation 15.8 % (11.5-14.5) Immature Granulocyte % (Auto) 0.4 % Immature Granulocyte # (Auto) 0.02 K/uL (0.00-0.02) Prothrombin Time 10.3 SECONDS (9.0-12.0) Prothromb Time International Ratio 1.0 (0.9-1.1) Activated Partial Thromboplast Time 25.9 SECONDS (21.0-31.0) Partial Thromboplastin Ratio 1.0 Anion Gap 9.0 mmol/L (3-11) Est Creatinine Clear Calc Drug Dose 40.4 ml/min Estimated GFR () 50.8 Estimated GFR (Non- 43.9 BUN/Creatinine Ratio 22.1 (10-20) Calcium Level 9.3 mg/dl (8.5-10.1) Bedside Troponin I 0.040 ng/ml (0-0.045) Laboratory results as reviewed by me. Medications Administered Medications (Trade) Dose Ordered Sig/Carmen Route Start Time Stop Time Status Last Admin Dose Admin Nitroglycerin (Nitroglycerin 2% Oint) 1 inch NOW ONCE EXT 04/25/17 11:15 04/25/17 11:16 DC 04/25/17 11:16 1 INCH Pantoprazole Sodium (Protonix Tab) 40 mg NOW STAT PO 04/25/17 13:03 04/25/17 13:15 DC 04/25/17 16:19 40 MG ECG Indication: chest pain Rate (beats per minute): 64 Rhythm: normal sinus Findings: T-wave inversion (lead 1, V5, V6, and AVL. ), ST elevation (1 mm, in lead 3) Comparison ECG Date: November 29, 2016 Change: T-wave inversions are old. ED Course 1054: The patient was evaluated in room C4. A complete history and physical exam was performed. 1115: Ordered Nitroglycerin 2% Oint 1 inch EXT. 1145: I reassessed the patient. Her chest pain is much better. I discussed her test results with her and recommended hospitalization. 1205: Upon reevaluation, the patient appeared to have improvement of her symptoms. I discussed her negative Troponin with her. She verbalized agreement of the treatment plan. The patient will be evaluated for further management. Medical Decision this is a 77-year-old female presents with chest pain.differential diagnosis includes unstable angina, VA, pleurisy, GERD, pneumonia. I did perform a limited focused review of portions of the patient's old chart on the electronic medical record. The patient has had no recent pertinent visits to this hospital. I did evaluate the patient as noted above. IV access was established. The patient was placed on a continuous ekg monitor tech. I did order and personally review the patient's 12-lead EKG and chest x-ray as described above. The patient has normal EKG but it does not show any significant changes from her prior. She does have an extensive cardiac history. I did treat her with nitroglycerin paste. She did have significant improvement of her chest discomfort with this. I did order and review the patient's blood work as noted in the electronic medical record. Initial troponin is negative. I did discuss the test results with the patient. I did recommend hospitalization for further evaluation of her symptoms. I did discuss case with the hospitalist and bilingual patient support caseworker. Medication Reconcilliation Current Medication List: was personally reviewed by me Blood Pressure Screening Patient's blood pressure: Elevated blood pressure Blood pressure disposition: Referred to PCP Consults Time Called: 1230 Consulting Physician: Dr. Lomeli -[facility] Returned Call: [address] Lomeli of [facility]. We discussed the patient and her results. The patient will be further evaluated by [facility]. Impression Primary Impression: Acute chest pain Scribe Attestation The scribe's documentation has been prepared under my direct and personally reviewed by me in its entirety. I confirm that the note above accurately reflects all work, treatment, procedures, and medical decision making performed by me. Departure Information Dispostion Being Evaluated By Hospitalist Referrals Lizet Jeter D.O. (PCP) Patient Instructions [facility]
--- NOTE | 2017-04-25 20:19 | DIAGNOSTIC IMAGING REPORT ---
ABDOMEN 2 VIEWS CLINICAL HISTORY: Constipation. COMPARISON STUDY: CT of the abdomen and pelvis July 09, 2016. FINDINGS: There is no evidence of free air. The bowel gas pattern is normal. A calcified structure within the pelvis is unchanged. This is of no clinical significance. There is a moderate amount of stool within the colon and rectum. IMPRESSION: 1. No free air or evidence of bowel obstruction. 2. Moderate amount of stool within the colon and rectum. No evidence for fecal impaction. Electronically signed by: Jose Mcgregor M.D. 04/25/2017 8:18 PM Dictated Date/Time: 04/25/2017 8:16 PM
[2017-04-25] MEDS: PREGABALIN 100 MG CAP PO SCH (20:31)
[2017-04-25] MEDS: CARVEDILOL 6.25 MG TAB PO SCH (20:32)
[2017-04-25] MEDS ORDERED: HEPARIN SOD 5000 UNIT/0.5 ML CARP SQ SCH (21:00)
--- NOTE | 2017-04-25 21:19 | Progress Note ---
Progress Note Date of Service Apr 25, 2017. Progress Note patient refusing DVT prophylaxis due history of intracranial bleed I have placed a hold order Per day team to review need to for pharmacological prophylaxis and group home counselor patient accordingly
[2017-04-25] MEDS ORDERED: LABETALOL HCL IV 5 MG/ML 20ML IV PRN (22:00)
[2017-04-26 03:37] LABS: MEAN CELL VOLUME 91.6 fL (80-100); MEAN CORPUSCULAR HEMOGLOBIN 30.1 pg (25-34); MEAN CORPUSCULAR HGB CONC 32.9 g/dl (32-36); MEAN PLATELET VOLUME 11.3 fL (7.4-10.4); PLATELET COUNT 132 K/uL (130-400); RED BLOOD COUNT 4.15 M/uL (4.2-5.4); WHITE BLOOD COUNT 4.72 K/uL (4.8-10.8)
[2017-04-26 04:00] VITALS: BP 113/67; PULSE 67; TEMP 36.4; O2SAT 97
[2017-04-26 04:02] LABS: BUN/CREATININE RATIO 22.5 (10-20); CALCIUM 8.1 mg/dl (8.5-10.1); CREATININE 1.4 mg/dl (0.60-1.20); POTASSIUM 4.3 mmol/L (3.5-5.1)
[2017-04-26] MEDS: NITROGLYCERIN OINT 2% 1GM PACKET EXT SCH ×2 (04:06→10:41)
[2017-04-26 04:08] VITALS: BP 134/70
[2017-04-26 07:09] VITALS: BP 159/82; PULSE 66; TEMP 36.7; O2SAT 97
[2017-04-26] MEDS: CARVEDILOL 6.25 MG TAB PO SCH (08:33)
[2017-04-26] MEDS: PREGABALIN 100 MG CAP PO SCH (08:40)
[2017-04-26] MEDS: INSULIN ASPART 100 UNITS/ML 3 ML PEN SC SCH ×2 (08:40→12:09)
[2017-04-26] MEDS ORDERED: MULTIVITAMIN TAB PO SCH (09:00)
[2017-04-26] MEDS ORDERED: MAGNESIUM OXIDE 400 MG TAB PO SCH (09:00)
[2017-04-26] MEDS ORDERED: PANTOprazole SOD 40 MG TAB PO SCH (09:00)
[2017-04-26] MEDS ORDERED: ASCORBIC ACID 500 MG TAB PO SCH (09:00)
--- NOTE | 2017-04-26 10:34 | Cardiology Consultation ---
Cardiology Consultation Date of Consultation: Apr 26, 2017. Requesting Physician: Dr. Lomeli Attending Physician: Dr. Iraheta Reason for Consultation: Chest pain Pt evaluation today including: conversation w/ patient, physical exam, chart review, lab review, review of studies, review of inpatient medication list, conversation w/ attending History of Present Illness Mrs. 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 She has a history of coronary artery disease status post RCA, left circumflex and LAD stenting. She underwent cardiac catheterization on 08/03/11 which demonstrated diffuse CAD with multiple intracoronary stents within the RCA, left circumflex and LAD which were all patent. There was a small marginal branch of the left circumflex with 70% ostial stenosis, otherwise nonobstructive CAD in the circumflex, RCA and LAD. A nuclear stress test on 04/10 was negative for myocardial ischemia. She reports that about 4 months ago she fell and suffered a subdural hematoma. She was transferred to [facility] in [place] where she apparently required neurosurgery. Since then she has been off Eliquis and aspirin. She feels her mentation is not completely back to baseline which she finds frustrating. She was admitted on 04/26/17 with chest discomfort. She reports that over the past month she has experienced intermittent episodes of chest pain which can be associated with emotional stress or exertion. She is under increased stress due to family issues. Also, she and her are preparing to move into a correction [place]. Her exertional chest discomfort occurs about 3 days per week on average. She has been doing a lot of packing and lifting heavy boxes. Typically her pain occurs directly after exertion rather than during exertion. Her pain is often sharp in nature and resolves on its own usually within a few minutes. Yesterday morning around 6 am she was eating breakfast when she developed a squeezing discomfort in the center of her chest. She also had episodes of sharper chest discomfort. Her pain became progressively worse, especially while carrying boxes to the car and she therefore presented to the emergency department. She states her pain was similar to previous angina but not as severe. She believes her pain radiated into her shoulders but she cannot recall for certain. She had some associated dyspnea and nausea. No vomiting or diaphoresis. Upon admission her troponin level was not elevated and electrocardiogram showed ST changes which are not new. Her pain persisted until she went to be last night. She states she is currently feeling well and has no acute complaints. She has not had any chest discomfort today. She has stable exertional dyspnea. She denies dyspnea at rest, orthopnea, PND, peripheral edema. She reports intermittent episodes of dizziness which she describes as a "spinning sensation." She denies cerebrovascular symptoms. She denies abnormal bleeding including melena, hematochezia or hematuria. The remainder of her review of systems is unremarkable. Family History Diabetes mellitus Hypertension Social History Smoking Status: Never Smoker History of Alcohol Use: No with 3 children and grandchildren. Retired. No history of tobacco use. No alcohol or drug use. Allergies Coded Allergies: Eptifibatide (Verified Allergy, Severe, ANAPHYLAXIS, 04/25/17) PT STATED SHE CODED TWICE WITH MED Wasp (Verified Allergy, Severe, WASP VENOM PROTEIN-ANAPHYLAXIS, 04/25/17) Azithromycin (Verified Allergy, Intermediate, palpatations, 04/25/17) Atorvastatin (Verified Allergy, Unknown, MUSCLE PAIN, 04/25/17) Ezetimibe (Verified Allergy, Unknown, MUSCLE PAIN, 04/25/17) Simvastatin (Verified Allergy, Unknown, MUSCLE PAIN, 04/25/17) HMG-CoA-R Inhibitors (Verified Adverse Reaction, Intermediate, STATINS - NAUSEA/RASH; TOLERATES CRESTOR, 04/25/17) Warfarin (Verified Adverse Reaction, Intermediate, EXTREME BLEEDING TIMES , 04/25/17) Codeine (Verified Adverse Reaction, Mild, VOMITING, 04/25/17) Gemfibrozil (Verified Adverse Reaction, Mild, NAUSEA, 04/25/17) Meperidine (Verified Adverse Reaction, Mild, VOMITING, 04/25/17) Ondansetron (Verified Adverse Reaction, Mild, vomiting, 04/25/17) Cortisone (Verified Adverse Reaction, Unknown, INCREASES SUGAR AND VOMITING?, 04/25/17) Hydralazine (Verified Adverse Reaction, Unknown, VOMITING, 04/25/17) Ibuprofen (Verified Adverse Reaction, Unknown, VOMITING AND DIARRHEA, 04/25) Iodine (Verified Adverse Reaction, Unknown, SHELLFISH - VOMITING, 04/25/17) Shellfish (Verified Adverse Reaction, Unknown, VOMITING, 04/25/17) Sulfa Antibiotics (Verified Adverse Reaction, Unknown, VOMITING, 04/25/17) Medications Current Inpatient Medications Medications (Trade) Dose Ordered Sig/Carmen Route Start Time Stop Time Status Last Admin Dose Admin Heparin Sodium (Porcine) (Heparin Sq 5000 Unit/0.5ml) 5,000 unit Q12 SQ 04/25/17 21:00 05/25/17 20:59 Future Hold 04/25/17 20:45 5,000 UNIT Acetaminophen (Tylenol Tab) 650 mg Q4H PRN PO 04/25/17 13:15 05/25/17 13:14 04/25/17 22:47 650 MG Al Hydrox/Mg Hydrox/Simethicone (Maalox Max Susp) 15 ml Q4H PRN PO 04/25/17 13:15 05/25/17 13:14 Magnesium Hydroxide (Milk Of Magnesia Susp) 30 ml Q12H PRN PO 04/25/17 13:15 05/25/17 13:14 Ondansetron HCl (Zofran Inj) 4 mg Q6H PRN IV 04/25/17 13:15 05/25/17 13:14 Nitroglycerin (Nitrostat Tab) 0.4 mg UD PRN SL 04/25/17 13:15 05/25/17 13:14 Nitroglycerin (Nitroglycerin 2% Oint) 1 inch Q6H EXT 04/25/17 16:00 05/25/17 15:59 04/26/17 04:06 1 INCH Ascorbic Acid (Vitamin C Tab) 500 mg QAM PO 04/26/17 09:00 05/26/17 08:59 04/26/17 08:33 500 MG Buspirone HCl (Buspar Tab) 5 mg BID PO 04/25/17 21:00 05/25/17 20:59 04/26/17 08:33 5 MG Carvedilol (Coreg Tab) 6.25 mg BID PO 04/25/17 21:00 05/25/17 20:59 04/26/17 08:33 6.25 MG Multivitamins (Multivitamin Tab) 1 tab QAM PO 04/26/17 09:00 05/26/17 08:59 04/26/17 08:33 1 TAB Pregabalin (Lyrica Cap) 200 mg BID PO 04/25/17 21:00 05/25/17 20:59 04/26/17 08:40 200 MG Magnesium Oxide (Mag-Ox Tab) 400 mg DAILY PO 04/26/17 09:00 05/26/17 08:59 04/26/17 08:33 400 MG Insulin Aspart (novoLOG ASPART) SLIDING SCALE PARAMETER ACHS SC 04/25/17 16:30 05/25/17 16:29 04/26/17 08:40 4 UNITS Pantoprazole Sodium (Protonix Tab) 40 mg QAM PO 04/26/17 09:00 05/26/17 08:59 04/26/17 09:16 40 MG Al Hydroxide/Mg Hydroxide/ Lidocaine HCl/ Barcode Q8H PRN PO 04/25/17 14:30 05/25/17 14:29 Glucose (Glucose 40% Gel) 15-30 GRAMS 15 GRAMS... UD PRN PO 04/25/17 14:45 05/25/17 14:44 Glucose (Glucose Chew Tab) 4-8 Tablets 4 Tabl... UD PRN PO 04/25/17 14:45 05/25/17 14:44 Dextrose (Dextrose 50% 50ML Syringe) 25-50ML OF 50% DW IV FOR... UD PRN IV 04/25/17 14:45 05/25/17 14:44 Glucagon (Glucagon Inj) 1 mg UD PRN SQ 04/25/17 14:45 05/25/17 14:44 Labetalol HCl (Normodyne IV) 10 mg Q4H PRN IV 04/25/17 22:00 05/25/17 21:59 04/25/17 22:42 10 MG Heparin Sodium (Porcine) (Heparin 100 Unit/ml 5ml Flush) 5 ml PRN PRN IV 04/25/17 23:15 05/25/17 23:14 04/26/17 03:22 5 ML Physical Exam Vital Signs Past 12 Hours Date Time Temp Pulse Resp B/P (MAP) Pulse Ox O2 Delivery O2 Flow Rate FiO2 04/26/17 08:00 Nasal Cannula 2.0 04/26/17 07:09 36.7 66 18 159/82 (107) 97 Room Air 04/26/17 04:08 134/70 (91) 04/26/17 04:00 Nasal Cannula 2.0 04/26/17 04:00 36.4 67 20 113/67 (82) 97 Nasal Cannula 2.0 04/26/17 00:00 Nasal Cannula 2.0 04/25/17 23:07 36.3 66 18 151/77 (101) 93 Nasal Cannula 2.0 04/25/17 22:30 69 176/85 (115) General: No acute distress. Alert and oriented. HEENT: Head is normal. PERRLA. EOMI. Sclera anicteric. Ears, nose and throat unremarkable. Mucous membranes moist. Neck: No JVD or carotid bruit. Lungs: Clear to auscultation without rales, rhonchi or wheezes. Cardiac: Regular rate and rhythm. S1 and S2 with grade 1-2/6 systolic murmur at the left sternal border. No diastolic murmur, gallop or rub. Port L chest wall. Abdomen: Soft and nontender. Bowel sounds present. No mass. No abdominal bruit. Extremities: No cyanosis or clubbing. Trace pretibial edema bilaterally. Peripheral pulses intact. Skin: No rash or abnormal lesions. Normal turgor. Neurologic: No focal deficits. Psychiatric: Affect seems appropriate. Data Laboratory Results: Last 24 Hours Test 04/25/17 11:00 04/25/17 11:54 04/25/17 16:10 04/25/17 19:12 White Blood Count 4.95 K/uL Red Blood Count 4.43 M/uL Hemoglobin 13.3 g/dL Hematocrit 40.2 % Mean Corpuscular Volume 90.7 fL Mean Corpuscular Hemoglobin 30.0 pg Mean Corpuscular Hemoglobin Concent 33.1 g/dl Platelet Count 136 K/uL Mean Platelet Volume 12.1 fL Neutrophils (%) (Auto) 70.1 % Lymphocytes (%) (Auto) 19.8 % Monocytes (%) (Auto) 6.9 % Eosinophils (%) (Auto) 2.6 % Basophils (%) (Auto) 0.2 % Neutrophils # (Auto) 3.47 K/uL Lymphocytes # (Auto) 0.98 K/uL Monocytes # (Auto) 0.34 K/uL Eosinophils # (Auto) 0.13 K/uL Basophils # (Auto) 0.01 K/uL RDW Standard Deviation 52.3 fL RDW Coefficient of Variation 15.8 % Immature Granulocyte % (Auto) 0.4 % Immature Granulocyte # (Auto) 0.02 K/uL Prothrombin Time 10.3 SECONDS Prothromb Time International Ratio 1.0 Activated Partial Thromboplast Time 25.9 SECONDS Partial Thromboplastin Ratio 1.0 Sodium Level 142 mmol/L Potassium Level 3.8 mmol/L Chloride Level 105 mmol/L Carbon Dioxide Level 28 mmol/L Anion Gap 9.0 mmol/L Blood Urea Nitrogen 27 mg/dl Creatinine 1.20 mg/dl Est Creatinine Clear Calc Drug Dose 40.4 ml/min Estimated GFR () 50.8 Estimated GFR (Non- 43.9 BUN/Creatinine Ratio 22.1 Random Glucose 188 mg/dl Calcium Level 9.3 mg/dl Bedside Troponin I 0.040 ng/ml Bedside Glucose 178 mg/dl Troponin I 0.028 ng/ml Test 04/25/17 20:15 04/26/17 03:25 04/26/17 07:35 Bedside Glucose 220 mg/dl 229 mg/dl White Blood Count 4.72 K/uL Red Blood Count 4.15 M/uL Hemoglobin 12.5 g/dL Hematocrit 38.0 % Mean Corpuscular Volume 91.6 fL Mean Corpuscular Hemoglobin 30.1 pg Mean Corpuscular Hemoglobin Concent 32.9 g/dl RDW Standard Deviation 53.5 fL RDW Coefficient of Variation 15.9 % Platelet Count 132 K/uL Mean Platelet Volume 11.3 fL Sodium Level 141 mmol/L Potassium Level 4.3 mmol/L Chloride Level 104 mmol/L Carbon Dioxide Level 30 mmol/L Anion Gap 7.0 mmol/L Blood Urea Nitrogen 32 mg/dl Creatinine 1.40 mg/dl Est Creatinine Clear Calc Drug Dose 34.2 ml/min Estimated GFR () 42.2 Estimated GFR (Non- 36.4 BUN/Creatinine Ratio 22.5 Random Glucose 201 mg/dl Calcium Level 8.1 mg/dl Troponin I 0.033 ng/ml Chemistry Specimen Hemolysis Imaging: Chest xray per radiology shows cardiomegaly with mild central pulmonary vascular congestion without overt edema. ECG: Electrocardiograms reviewed. ECG from 04/26/17 sinus rhythm at [address] and T wave abnormality, consider lateral ischemia. Compared to ECG from no significant change. Echocardiogram: normal LV size and function (EF 60-65%). No regional wall motion abnormalities. Severe concentric LVH. Left atrium moderately dilated. No significant valvular abnormalities. Technically difficult study, enhanced with IV Definity. No significant change from study on 06/20/16. Telemetry reviewed: Sinus rhythm without arrhythmia or pause. Assessment & Plan Patient discussed with Dr. Iraheta. 1. Coronary artery disease: Patient was admitted 04/25/17 with chest pain. She has a history of CAD status post multiple intracoronary stents in the RCA, left circumflex and LAD. A cardiac cath in 2011 demonstrated patent stents with otherwise nonobstructive CAD. She has been having episodes of chest discomfort for the past month. Her chest discomfort is atypical and can occur with emotional stress or exertion. Yesterday she had a more severe, prolonged episode of chest pain which prompted her current admission. Her troponin level has been normal and she has no new ECG changes. It is unlikely her pain represents acute coronary syndrome and a cardiac catheterization is not indicated at this time. Recommend ischemic evaluation with a nuclear stress test which can be performed as an outpatient. She does have reproducible pain on exam and it may be musculoskeletal. Continue statin therapy and beta suraj. Patient's aspirin was reportedly discontinued after her subdural hemorrhage. Given her history of intracoronary stent placement ideally the patient would be maintained on aspirin therapy. She would need to be cleared by her neurosurgeon first. 2. Paroxysmal atrial flutter: Patient is currently in sinus rhythm. Her anticoagulation has been discontinued due to recent subdural hematoma. Continue beta suraj therapy. 3. Apical variant hypertropic cardiomyopathy with chronic diastolic CHF: Severe concentric LVH on echo. No signs or symptoms of decompensated heart failure. 4. Hypertension: Blood pressure has been elevated during admission, could consider increasing dose of carvedilol. Thank you for the consultation. Dr. Iraheta Addendum: Patient seen and examined. Reviewed patient's ECGs, Echo, prior stress test and cardiac cath. Agree with assessment and plan as outlined by JEFE Maldonado. Suspicion that presenting chest pain represents ACS is low. Prior symptoms over the last several weeks have also been atypical but with her CAD history suspicion for some progression of prior disease is elevated and reasonable to further risk stratify with repeat stress test. With patients LVH , baseline ECG abnormalities would recommend pharmacologic SPECT over stress echo. This will be arranged as an outpatient. From a cardiac standpoint OK for discharge today.
[2017-04-26 10:42] VITALS: BP 137/62; PULSE 67
[2017-04-26 11:13] VITALS: BP 152/79; PULSE 61; TEMP 36.4; O2SAT 97
--- NOTE | 2017-04-26 11:25 | Discharge Instructions ---
Discharge Instructions Date of Service Apr 26, 2017. Admission Reason for Admission: Chest Pain Discharge Discharge Diagnosis / Problem: Chest pain rule out acute coronary syndrome Discharge Goals Goal(s): Decrease discomfort, Improve function, Increase independence, Improve disease control, Diagnostic testing, Therapeutic intervention, Prevent Disease Progression Activity Recommendations Activity Limitations: resume your previous activity Exercise/Sports Limitations: as tolerated . Instructions / Follow-Up Instructions / Follow-Up Patient to be discharged home Continue all home medications at this time Recommend outpatient nuclear stress test If worsening chest pain, shortness of breath please report to ER Follow up with Dr Jeter in 1 week Current Hospital Diet Patient's current hospital diet: AHA Diet (Heart Healthy), Diabetes Type 2 Diet Discharge Diet Recommended Diet: AHA Diet (Heart Healthy), Diabetes Type 2 Diet Pending Studies Studies pending at discharge: no Medical Emergencies . Who to Call and When: Medical Emergencies: If at any time you feel your situation is an emergency, please call 911 immediately. . Non-Emergent Contact Non-Emergency issues call your: Primary Care Provider Call Non-Emergent contact if: your pain is worsening . . "Provider Documentation" section prepared by Alan Suazo. . VTE Core Measure Inpt VTE Proph given/why not?: Unfractionated heparin SQ
[2017-04-26 11:37] VITALS: BP 152/79; PULSE 61; TEMP 36.4; O2SAT 97
--- NOTE | 2017-04-26 12:51 | Discharge Summary ---
Discharge Summary Date of Service Apr 26, 2017. Discharge Summary Admission Date: Apr 25, 2017 at 13:10 Discharge Date: Apr 26, 2017 Discharge Disposition: Home Principal Diagnosis: chest pain rule out acute coronary syndrome Immunizations: Have You Had Influenza Vaccine: Yes Influenza Vaccine Date: Jul 20, 2013 History of Tetanus Vaccine?: Yes Tetanus Immunization Date: Sep 18, 2007 History of Pneumococcal: Yes Pneumococcal Date: Apr 18, 1998 History of Hepatitis B Vaccine: No Consultations: cardiology Medication Reconciliation Continued Medications: Ascorbic Acid (Vitamin C) 500 Mg Tab 500 MG PO QAM B Complex W/ C (Vitamin B Complex-C) 1 Cap Cap 1 CAP PO QAM Buspirone HCl (Buspirone HCl) 5 Mg Tab 5 MG PO BID, #90 Calcium Carbonate-Vitamin D (Calcium) 1 Tab Tab 1 TAB PO BID Carvedilol (Coreg) 6.25 Mg Tab 6.25 MG PO BID, TAB Cholecalciferol (Vitamin D-1000) 1,000 Unit Tab 2000 UNITS PO QAM Folic Acid (Folic Acid) 800 Mcg Tab 800 MCG PO DAILY Insulin Aspart (Novolog) 100 Units/Ml Inj 60 UNITS SQ HS Insulin Human Regular (Novolin R) 100 Units/1 Ml Inj SQ TIDM SLIDING SCALE Insulin Regular (Human) (Novolin R Relion) 100 Unit/Ml Inj 11 UNITS SQ DAILY WITH BREAKFAST PLUS SLIDING SCALE Insulin Regular (Human) (Novolin R Relion) 100 Unit/Ml Inj 18 UNITS SQ DAILY WITH LUNCH PLUSS SLIDING SCALE Insulin Regular (Human) (Novolin R Relion) 100 Unit/Ml Inj 28 UNITS SQ DAILY WITH SUPPER PLUS SLIDING SCALE Magnesium Oxide (Mg Supplement (Magnesium Oxide) 400 Mg Tab 1 TAB PO DAILY Multivitamin (Multivitamin) Tab 1 TAB PO QAM, 0 Refills Pregabalin (Lyrica) 200 Mg Cap 200 MG PO BID, CAP Discharge Exam Review of Systems: Constitutional: No fever, No chills, No sweats, No weakness, No fatigue ENT: No unusual epistaxis, No nasal symptoms, No sore throat, No tinnitus Respiratory: No cough, No sputum, No wheezing, No shortness of breath Cardiovascular: No chest pain, No orthopnea, No PND, No edema Abdomen: No pain, No nausea, No vomiting, No diarrhea Musculoskeletal: No joint pain, No muscle pain, No swelling, No calf pain Genitourinary - Female: No dysuria, No urinary frequency, No urinary urgency , No urinary incontinence Neurologic: No memory loss, No paralysis, No weakness, No numbness/tingling Psychiatric: No depression symptoms, No anhedonism, No anxiety, No insomnia Endocrine: No fatigue, No excessive thirst Integumentary: No rash, No itch Physical Exam: General Appearance: WD/WN, no apparent distress Eyes: normal inspection, PERRL, EOMI, sclerae normal Neck: supple, no adenopathy, thyroid normal, no JVD Respiratory/Chest: chest non-tender, lungs clear, normal breath sounds, no respiratory distress Cardiovascular: regular rate, rhythm, no edema, no gallop, no JVD, + systolic murmur Abdomen / GI: normal bowel sounds, non tender, soft, no organomegaly Neurologic/Psychiatric: no motor/sensory deficits, alert, normal mood/affect , normal reflexes, oriented x 3 Skin: normal color, warm/dry, no rash Lymphatic: no adenopathy Hospital Course 77 showed female here with accelerated chest pain history of coronary disease and diabetes Chest pain with hx of CAD wit stents in the RCA, left circumflex and LAD. A cardiac cath in 2012 demonstrated patent stents with otherwise nonobstructive CAD. She has been having episodes of chest discomfort for the past month. Pt reports stressors of moving into a snf. Her serial troponin levels have been normal and she has no new ECG changes. It is unlikely her pain represents acute coronary syndrome and a cardiac catheterization is not indicated at this time. Recommend ischemic evaluation with a nuclear stress test which can be performed as an outpatient. Continue beta suraj. Patient's aspirin was reportedly discontinued after her subdural hemorrhage. Given her history of intracoronary stent placement ideally the patient would be maintained on aspirin therapy. She would need to be cleared by her neurosurgeon first. Regarding her diabetes will continue basal bolus with sliding scale insulin Paroxysmal a flutter AC on hold due to recent intracranial bleed GERD we'll continue her Protonix Anxiety the patient is on BuSpar will continue Lyrica for restless leg syndrome Heparin will be used for DVT prevention Total Time Spent: Greater than 30 minutes This includes examination of the patient, discharge planning, medication reconciliation, and communication with other providers. Discharge Instructions Please refer to the electronic Patient Visit Report (Discharge Instructions) for additional information. Additional Copies To Lizet Jeter D.O.
--- NOTE | 2017-04-26 15:34 | Medical Student: [facility] ---
Med Student History & Physical Date & Time of Service: Apr 26, 2017 at 12:27 Chief Complaint: Chest Pain Primary Care Physician: Lizet Jeter D.O. History of Present Illness Source: patient This is 77 year-old female with history of Afib, PA x4 stents, HTN, hyperlipidemia, neuropathy, CKD stage 3, IBS, questionable MS, non-Hodgkin Lymphoma diffuse large B cells, and recent subdural hematoma presented to the ER yesterday with worsening chest pain for the past month. Patient states that for the past 1 month, she has been busy with packing and moving to the senior house with her and started to have the chest pain associated with exertion. Although, she also admits to have some CP while resting. CP usually last minutes to half hour and localized to mid-chest but once in a while radiate to the right side of the chest. Pain is described as pressure-like. Pt just waits for the pain to pass and does not take anything to help with the pain. With these chest pain, patient also gets SOB and leg swelling. She is on 2.5L of O2 at home, CPAP at night and during the day when she gets SOB. Of note , patient recently has neurosurgical procedure on 11/30/2016 at [facility] to evacuate a subdural hematoma after a fall. Since, she started to have the light-headedness and syncope episodes. Not sure how many times she has these syncopes, but last time she gets syncope was last week. She does not know how long each lasts and there was usually no witness. She also has associated N/ V with these episodes. She uses a walker/cane at home. Since neurosurgery, her Eliquis and aspirin, which are for Afib were held. Today, she states that she feels better than yesterday, but still has the pressure-like chest pain. No SOB. She gets right lower quadrant abdominal pain, which she states that has been chronic for 20 years. Bm are swinging between diarrhea and constipation. She has sweating which she says has been going on since diagnosis of lymphoma. No headache, fever, chills, or dysuria. Past Medical/Surgical History PMH - Paroxysmal Afib - CAD x 4 stents 2010 - PA x 4 - MS? - DM type II - HTN - Hyperlipidemia - Neuropathy - IBS - Subdural hematoma Surgeries - B/l knee joint replacement ( R-2007, L-2002) - Left upper lob wedge resection - Brain Surgery (11/2016) - Tonsillectomy - Hysterectomy Family History Father: coronary artery disease, HTN, heart disease Mother: stroke Social History Smoking Status: Never Smoker Drug Use: none Marital Status: Housing status: lives with family Occupational Status: retired Immunizations History of Influenza Vaccine: Yes Influenza Vaccine Date: Jul 20, 2013 History of Tetanus Vaccine?: Yes Tetanus Immunization Date: Sep 18, 2007 History of Pneumococcal: Yes Pneumococcal Date: Apr 18, 1998 History of Hepatitis B Vaccine: No Allergies Coded Allergies: Eptifibatide (Verified Allergy, Severe, ANAPHYLAXIS, 04/25/17) PT STATED SHE CODED TWICE WITH MED Wasp (Verified Allergy, Severe, WASP VENOM PROTEIN-ANAPHYLAXIS, 04/25/17) Azithromycin (Verified Allergy, Intermediate, palpatations, 04/25/17) Atorvastatin (Verified Allergy, Unknown, MUSCLE PAIN, 04/25/17) Ezetimibe (Verified Allergy, Unknown, MUSCLE PAIN, 04/25/17) Simvastatin (Verified Allergy, Unknown, MUSCLE PAIN, 04/25/17) HMG-CoA-R Inhibitors (Verified Adverse Reaction, Intermediate, STATINS - NAUSEA/RASH; TOLERATES CRESTOR, 04/25/17) Warfarin (Verified Adverse Reaction, Intermediate, EXTREME BLEEDING TIMES , 04/25/17) Codeine (Verified Adverse Reaction, Mild, VOMITING, 04/25/17) Gemfibrozil (Verified Adverse Reaction, Mild, NAUSEA, 04/25/17) Meperidine (Verified Adverse Reaction, Mild, VOMITING, 04/25/17) Ondansetron (Verified Adverse Reaction, Mild, vomiting, 04/25/17) Cortisone (Verified Adverse Reaction, Unknown, INCREASES SUGAR AND VOMITING?, 04/25/17) Hydralazine (Verified Adverse Reaction, Unknown, VOMITING, 04/25/17) Ibuprofen (Verified Adverse Reaction, Unknown, VOMITING AND DIARRHEA, 04/25) Iodine (Verified Adverse Reaction, Unknown, SHELLFISH - VOMITING, 04/25/17) Shellfish (Verified Adverse Reaction, Unknown, VOMITING, 04/25/17) Sulfa Antibiotics (Verified Adverse Reaction, Unknown, VOMITING, 04/25/17) Medications Ascorbic Acid (Vitamin C), 500 MG PO QAM B Complex W/ C (Vitamin B Complex-C), 1 CAP PO QAM Buspirone HCl (Buspirone HCl), 5 MG PO BID Calcium Carbonate-Vitamin D (Calcium), 1 TAB PO BID Carvedilol (Coreg), 6.25 MG PO BID Cholecalciferol (Vitamin D-1000), 2,000 UNITS PO QAM Folic Acid (Folic Acid), 800 MCG PO DAILY Insulin Aspart (Novolog), 60 UNITS SQ HS Insulin Human Regular (Novolin R), SQ TIDM Insulin Regular (Human) (Novolin R Relion), 11 UNITS SQ DAILY WITH BREAKFAST Insulin Regular (Human) (Novolin R Relion), 18 UNITS SQ DAILY WITH LUNCH Insulin Regular (Human) (Novolin R Relion), 28 UNITS SQ DAILY WITH SUPPER Magnesium Oxide (Mg Supplement (Magnesium Oxide), 1 TAB PO DAILY Multivitamin (Multivitamin), 1 TAB PO QAM Pregabalin (Lyrica), 200 MG PO BID Review of Systems Constitutional: + sweats, No fever, No chills ENT: No hearing loss Respiratory: + dyspnea on exertion, No cough, No sputum, No shortness of breath Cardiovascular: + chest pain (pressure-like) Abdomen: + pain (RLQ), No nausea, No vomiting Musculoskeletal: No muscle pain Genitourinary - Female: No dysuria Neurologic: + numbness/tingling (neuropathic pain), + balance problems Hematologic / Lymphatic: + night sweats Integumentary: No rash Physical Exam Vital Signs (24 Hours) Date Time Temp Pulse Resp B/P (MAP) Pulse Ox O2 Delivery O2 Flow Rate FiO2 04/26/17 11:37 36.4 61 18 97 Nasal Cannula 04/26/17 11:13 36.4 61 18 152/79 (103) 97 Room Air 04/26/17 10:42 67 137/62 (87) 04/26/17 08:00 Nasal Cannula 2.0 04/26/17 07:09 36.7 66 18 159/82 (107) 97 Room Air 04/26/17 04:08 134/70 (91) 04/26/17 04:00 Nasal Cannula 2.0 04/26/17 04:00 36.4 67 20 113/67 (82) 97 Nasal Cannula 2.0 04/26/17 00:00 Nasal Cannula 2.0 04/25/17 23:07 36.3 66 18 151/77 (101) 93 Nasal Cannula 2.0 04/25/17 22:30 69 176/85 (115) 04/25/17 20:00 91 Nasal Cannula 2.0 CPAP 04/25/17 19:07 36.3 75 20 189/81 (117) 91 Room Air 04/25/17 17:41 72 18 172/85 (114) 97 Nasal Cannula 2.0 04/25/17 16:24 67 20 181/82 (115) 97 Nasal Cannula 2.0 04/25/17 16:00 97 Nasal Cannula 2.0 04/25/17 14:38 36.4 66 20 197/97 99 Nasal Cannula 2.0 203/85 04/25/17 13:52 67 20 158/86 95 Nasal Cannula 2.0 General Appearance: no apparent distress, + obese Head: atraumatic Eyes: normal inspection ENT: hearing grossly normal Respiratory/Chest: lungs clear, normal breath sounds, no respiratory distress Cardiovascular: regular rate, rhythm, no murmur Abdomen/GI: normal bowel sounds, soft, + tenderness (RLQ), + distended Extremities/Musculoskelatal: no calf tenderness, no pedal edema Neurologic/Psych: normal mood/affect, normal reflexes, oriented x 3 Skin: normal color Diagnostics Laboratory Results Results Past 24 Hours Test 04/25/17 16:10 04/25/17 19:12 04/25/17 20:15 04/26/17 03:25 Range/Units Bedside Glucose 178 220 70-90 mg/dl Troponin I 0.028 0.033 0-0.045 ng/ml White Blood Count 4.72 4.8-10.8 K/uL Red Blood Count 4.15 4.2-5.4 M/uL Hemoglobin 12.5 12.0-16.0 g/dL Hematocrit 38.0 37-47 % Mean Corpuscular Volume 91.6 80-100 fL Mean Corpuscular Hemoglobin 30.1 25-34 pg Mean Corpuscular Hemoglobin Concent 32.9 32-36 g/dl RDW Standard Deviation 53.5 36.4-46.3 fL RDW Coefficient of Variation 15.9 11.5-14.5 % Platelet Count 132 130-400 K/uL Mean Platelet Volume 11.3 7.4-10.4 fL Sodium Level 141 136-145 mmol/L Potassium Level 4.3 3.5-5.1 mmol/L Chloride Level 104 98-107 mmol/L Carbon Dioxide Level 30 21-32 mmol/L Anion Gap 7.0 3-11 mmol/L Blood Urea Nitrogen 32 7-18 mg/dl Creatinine 1.40 0.60-1.20 mg/dl Est Creatinine Clear Calc Drug Dose 34.2 ml/min Estimated GFR () 42.2 Estimated GFR (Non- 36.4 BUN/Creatinine Ratio 22.5 10-20 Random Glucose 201 70-99 mg/dl Calcium Level 8.1 8.5-10.1 mg/dl Chemistry Specimen Hemolysis Test 04/26/17 07:35 04/26/17 11:13 Range/Units Bedside Glucose 229 275 70-90 mg/dl Diagnostic Radiology CXR - cardiomegaly with mild central pulmonary vascular congestion without edema Abd x-ray - no perforation or obstruction other (Inverted T-wave on V4-V6, Q-wave on Lead III) Impression Assessment and Plan This is 77 year-old female with history of Afib, PA x4 stents, HTN, hyperlipidemia, neuropathy, CKD stage 3, IBS, questionable MS, non-Hodgkin Lymphoma diffuse large B cells, and recent subdural hematoma presented to the ER yesterday with worsening chest pain for the past month Ddx chest pain - cardiac-PA, arrhythmia, CAD; lungs - pneumonia, pleuritis, pleural effusion, GI- GERD, MSK - costochondritis Chest pain - atypical, probably related to patient's underlying cardiac problems CAD, HTN, and AFIB Sx has gotten better. Chest pain has improved. CBC and electrolytes are normal. VSS. Echo 04/25 shows LV concentric hypertrophy, EF 60-65%, no wall motion abnormalities, no valvular stenosis. Troponin serial - negative - Cardiology consulted - Continue Coreg (probably dose has to be titrate up). Nuclear stress test as outpt. Continue hold Eliquis and aspirin until cleared by neurosurgery. Eliquis for AFIB has been held since November 2016 after neurosurgery for subdural hematoma. - Consider putting on statin and KAMRAN inhibitor as outpatient. - Follow with rabbit dresser and PCP as outpatient. DM type II Glucose today is 229. - Continue insulin sliding scales while inpatient - Resume home insulin and follow with PCP. Neuropathy - Continue pregabalin DVT prophylaxis - Patient declines heparin for DVT prophylaxis due to history of brain bleed. Level of Care Telemetry Advanced Directives Existing Living Will: No Existing Power of Feather Washer: No Resuscitation Status FULL RESUSCITATION DVT Prophylaxis Prophylaxis Contraindication: Medication refused Social Service Consult None Apply Note Total Time: Critical Care 30 - 74 minutes
== END 2017-04-26 13:21 | disposition home or self-care (01) ==
LOC: C.EDB 10:41 → C.MED 13:10 → EDBEDREQ 13:18 → ENRESERV 13:41
PROVIDERS: ADMIT Internal Medicine; ATTEND Hospitalist
DX: R07.9 Chest pain, unspecified (principal); I25.10 Atherosclerotic heart disease of native coronary artery without angina pectoris; E11.9 Type 2 diabetes mellitus without complications; K21.9 Gastro-esophageal reflux disease without esophagitis; I48.0 Paroxysmal atrial fibrillation; I50.32 Chronic diastolic (congestive) heart failure; I11.0 Hypertensive heart disease with heart failure; Z79.4 Long term (current) use of insulin; Z96.659 Presence of unspecified artificial knee joint; Z82.49 Family history of ischemic heart disease and other diseases of the circulatory system; Z88.1 Allergy status to other antibiotic agents; Z88.2 Allergy status to sulfonamides; Z88.5 Allergy status to narcotic agent; Z91.013 Allergy to seafood; Z83.3 Family history of diabetes mellitus

== ENCOUNTER 2017-06-18 10:44 | Inpatient (IN) | payer OTHER, BC ==
[~2017-06-18] VITALS: Ht 154.9 cm; Wt 68.3 kg
[~2017-06-18 10:44] MED LIST changes: -ASPI-435 PO; +NVLRPUC SQ
[2017-06-18] MEDS ORDERED: METOPROLOL TARTRATE 1 MG/ML VIAL IV STA ×3 (11:24→12:23)
--- NOTE | 2017-06-18 11:24 | EMERGENCY ROOM VISIT NOTE ---
History Report prepared by Christian: Mariely Sunshine Under the Supervision of: Dr. Johnny Handley M.D. First contact with patient: 11:05 Chief Complaint: CHEST PAIN Stated Complaint: CHEST PAIN Nursing Triage Summary: Intermittnet chest pain, "racing" heart History of Present Illness The patient is a 77 year old white female with a past medical history of atrial flutter, atrial fibrillation, cardiac stent, brain hemorrhage, brain surgery, who presents to the ED with a cc of intermittent chest pain described as a pressure beginning prior to arrival. Positive shortness of breath, lower extremity swelling, left arm pain, left jaw pain, nausea, diaphoresis. Negative cough, vomiting. She currently rates her discomfort as a 9/10 in severity. The patient states that she is on 2.5 liters of nasal cannula oxygen at home at all times. She denies any history of smoking, but notes that she has a history of COPD and lung cancer. The patient denies any recent car or plane travel. She reports a history of a brain hemorrhage, noting that she is no longer on her blood thinners. Source of History: patient Onset: prior to arrival Position: chest Symptom Intensity: 9/10 Timing: intermittent Associated Symptoms: + diaphoresis, + SOB, + nausea, No cough, No vomiting Note: Associated Symptoms: lower extremity swelling, left arm pain, left jaw pain Review of Systems See HPI for pertinent positives and negatives. A total of ten systems were reviewed and were otherwise negative. Past Medical & Surgical Medical Problems: (1) Atrial Fibrillation (2) Atrial fibrillation or flutter (3) C. 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, Unsp Site, Extranodal & Solid Organ (12) Neutropenia (13) Peripheral neuropathy Surgical Problems: (1) Knee Joint Replacement Status Family History Cancer Diabetes mellitus FHx: gallbladder disease Heart disease Hypertension Social History Smoking Status: Never Smoker Alcohol Use: none Drug Use: none Marital Status: Housing Status: lives with significant other Occupation Status: retired Current/Historical Medications Scheduled Ascorbic Acid (Vitamin C), 500 MG PO QAM B Complex W/ C (Vitamin B Complex-C), 1 CAP PO QAM Buspirone HCl (Buspirone HCl), 5 MG PO BID Calcium Carbonate-Vitamin D (Calcium), 1 TAB PO BID Carvedilol (Coreg), 6.25 MG PO BID Cholecalciferol (Vitamin D-1000), 2,000 UNITS PO QAM Folic Acid (Folic Acid), 800 MCG PO DAILY Insulin Human Regular (Novolin R), SQ TIDM Insulin Isophane (Human) (Novolin N Relion), 35 UNITS SQ BID Insulin Regular (Human) (Novolin R Relion), 11 UNITS SQ DAILY WITH BREAKFAST Insulin Regular (Human) (Novolin R Relion), 18 UNITS SQ DAILY WITH LUNCH Insulin Regular (Human) (Novolin R Relion), 28 UNITS SQ DAILY WITH SUPPER Magnesium Oxide (Mg Supplement (Magnesium Oxide), 1 TAB PO DAILY Multivitamin (Multivitamin), 1 TAB PO QAM Pregabalin (Lyrica), 200 MG PO BID Allergies Coded Allergies: Eptifibatide (Verified Allergy, Severe, ANAPHYLAXIS, 04/25/17) PT STATED SHE CODED TWICE WITH MED Wasp (Verified Allergy, Severe, WASP VENOM PROTEIN-ANAPHYLAXIS, 04/25/17) Azithromycin (Verified Allergy, Intermediate, palpatations, 04/25/17) Atorvastatin (Verified Allergy, Unknown, MUSCLE PAIN, 04/25/17) Ezetimibe (Verified Allergy, Unknown, MUSCLE PAIN, 04/25/17) Simvastatin (Verified Allergy, Unknown, MUSCLE PAIN, 04/25/17) HMG-CoA-R Inhibitors (Verified Adverse Reaction, Intermediate, STATINS - NAUSEA/RASH; TOLERATES CRESTOR, 04/25/17) Warfarin (Verified Adverse Reaction, Intermediate, EXTREME BLEEDING TIMES , 04/25/17) Codeine (Verified Adverse Reaction, Mild, VOMITING, 04/25/17) Gemfibrozil (Verified Adverse Reaction, Mild, NAUSEA, 04/25/17) Meperidine (Verified Adverse Reaction, Mild, VOMITING, 04/25/17) Ondansetron (Verified Adverse Reaction, Mild, vomiting, 04/25/17) Cortisone (Verified Adverse Reaction, Unknown, INCREASES SUGAR AND VOMITING?, 04/25/17) Hydralazine (Verified Adverse Reaction, Unknown, VOMITING, 04/25/17) Ibuprofen (Verified Adverse Reaction, Unknown, VOMITING AND DIARRHEA, 04/25) Iodine (Verified Adverse Reaction, Unknown, SHELLFISH - VOMITING, 04/25/17) Shellfish (Verified Adverse Reaction, Unknown, VOMITING, 04/25/17) Sulfa Antibiotics (Verified Adverse Reaction, Unknown, VOMITING, 04/25/17) Physical Exam Vital Signs Date Time Temp Pulse Resp B/P (MAP) Pulse Ox O2 Delivery O2 Flow Rate FiO2 06/18/17 13:58 69 27 121/61 95 Nasal Cannula 2.0 06/18/17 12:15 123 104/73 06/18/17 12:05 132 124/88 06/18/17 12:03 138 106/77 06/18/17 12:02 138 18 106/77 94 Nasal Cannula 2.0 06/18/17 11:40 139 06/18/17 11:32 94 Nasal Cannula 2.0 06/18/17 11:32 94 Nasal Cannula 2.0 06/18/17 10:53 36.7 128 18 131/68 94 Room Air Physical Exam GENERAL: Awake, alert, well-appearing, NAD, on nasal cannula oxygen, no respiratory distress. HENT: Normocephalic, atraumatic. EYES: Normal conjunctiva. Sclera non-icteric. NECK: Supple. No nuchal rigidity. FROM. RESPIRATORY: CTAB, no rhonchi, wheezing, crackles CARDIAC: RRR, no MRG ABDOMEN: Soft, NTND, BS+ MSK: No chest wall TTP, 1+ pretibial edema bilaterally NEURO: GCS 15, CN 2-12 intact, moves all 4s on command SKIN: No rash or jaundice noted. Medical Decision & Procedures ER Provider Diagnostic Interpretation: X-ray: Per my interpretation, radiologist review. CHEST ONE VIEW PORTABLE CLINICAL HISTORY: Chest pain and. COMPARISON STUDY: Chest radiograph April 25, 2017. FINDINGS: A left subclavian [id number] remains in place. Postsurgical findings within the left upper hemithorax are noted. Cardiomegaly is unchanged. There is no evidence of pulmonary edema. There is no consolidation to suggest pneumonia. The appearance of the chest is unchanged. IMPRESSION: No acute cardiopulmonary findings. No change in appearance of the chest. Electronically signed by: Jose Mcgregor M.D. 06/18/2017 12:37 PM Dictated Date/Time: 06/18/2017 12:36 PM Laboratory Results 06/18/17 11:54 Red Blood Count 4.31, Mean Corpuscular Volume 94.0, Mean Corpuscular Hemoglobin 31.3, Mean Corpuscular Hemoglobin Concent 33.3, Mean Platelet Volume 12.4, Neutrophils (%) (Auto) 71.1, Lymphocytes (%) (Auto) 19.6, Monocytes (%) (Auto) 6.5, Eosinophils (%) (Auto) 1.8, Basophils (%) (Auto) 0.4, Neutrophils # (Auto) 3.52, Lymphocytes # (Auto) 0.97, Monocytes # (Auto) 0.32, Eosinophils # (Auto) 0.09, Basophils # (Auto) 0.02 06/18/17 11:54 Test 06/18/17 11:54 White Blood Count 4.95 K/uL (4.8-10.8) Red Blood Count 4.31 M/uL (4.2-5.4) Hemoglobin 13.5 g/dL (12.0-16.0) Hematocrit 40.5 % (37-47) Mean Corpuscular Volume 94.0 fL (80-100) Mean Corpuscular Hemoglobin 31.3 pg (25-34) Mean Corpuscular Hemoglobin Concent 33.3 g/dl (32-36) Platelet Count 139 K/uL (130-400) Mean Platelet Volume 12.4 fL (7.4-10.4) Neutrophils (%) (Auto) 71.1 % Lymphocytes (%) (Auto) 19.6 % Monocytes (%) (Auto) 6.5 % Eosinophils (%) (Auto) 1.8 % Basophils (%) (Auto) 0.4 % Neutrophils # (Auto) 3.52 K/uL (1.4-6.5) Lymphocytes # (Auto) 0.97 K/uL (1.2-3.4) Monocytes # (Auto) 0.32 K/uL (0.11-0.59) Eosinophils # (Auto) 0.09 K/uL (0-0.5) Basophils # (Auto) 0.02 K/uL (0-0.2) RDW Standard Deviation 54.0 fL (36.4-46.3) RDW Coefficient of Variation 15.7 % (11.5-14.5) Immature Granulocyte % (Auto) 0.6 % Immature Granulocyte # (Auto) 0.03 K/uL (0.00-0.02) Prothrombin Time 10.7 SECONDS (9.0-12.0) Prothromb Time International Ratio 1.0 (0.9-1.1) Activated Partial Thromboplast Time 26.8 SECONDS (21.0-31.0) Partial Thromboplastin Ratio 1.0 Venous Blood pH 7.39 (7.36-7.41) Venous Blood Partial Pressure CO2 46 mmHg (38.0-50.0) Venous Blood Partial Pressure O2 36 mmHg Venous Blood HCO3 27 mmol/L Venous Blood Oxygen Saturation 64.8 % Venous Blood Base Excess 1.2 mEq/L Anion Gap 10.0 mmol/L (3-11) Est Creatinine Clear Calc Drug Dose 32.2 ml/min Estimated GFR () 39.1 Estimated GFR (Non- 33.8 BUN/Creatinine Ratio 21.7 (10-20) Calcium Level 9.1 mg/dl (8.5-10.1) Total Bilirubin 0.3 mg/dl (0.2-1) Direct Bilirubin mg/dl (0-0.2) Aspartate Amino Transf (AST/SGOT) 27 U/L (15-37) Alanine Aminotransferase (ALT/SGPT) 30 U/L (12-78) Alkaline Phosphatase 64 U/L (45-117) Troponin I 0.049 ng/ml (0-0.045) Pro-B-Type Natriuretic Peptide 2939 pg/ml (0-1800) Total Protein 6.2 gm/dl (6.4-8.2) Albumin 3.1 gm/dl (3.4-5.0) Lipase 269 U/L (73-393) Laboratory results reviewed by me Medications Administered Medications (Trade) Dose Ordered Sig/Carmen Route Start Time Stop Time Status Last Admin Dose Admin Metoprolol Tartrate (Lopressor Iv) 5 mg NOW STAT IV 06/18/17 11:24 06/18/17 11:25 DC 06/18/17 12:03 5 MG Metoprolol Tartrate (Lopressor Iv) 5 mg NOW STAT IV 06/18/17 12:23 06/18/17 12:24 DC 06/18/17 12:05 5 MG Metoprolol Tartrate (Lopressor Iv) 5 mg NOW STAT IV 06/18/17 12:23 06/18/17 12:24 DC 06/18/17 12:15 5 MG Carvedilol (Coreg Tab) 6.25 mg NOW ONCE PO 06/18/17 12:30 06/18/17 12:31 DC 06/18/17 13:24 6.25 MG Diltiazem HCl 125 mg/Dextrose 125 ml @ 0 mls/hr Q0M PRN IV 06/18/17 13:30 06/18/17 17:13 DC 06/18/17 13:53 5 MLS/HR Morphine Sulfate (MoRPHine SULFATE INJ) 2 mg STK-MED ONCE .ROUTE 06/18/17 13:34 06/18/17 13:35 DC 06/18/17 13:44 2 MG Diltiazem HCl (Cardizem Inj) 20 mg TODAY@1345 IV 06/18/17 13:45 06/18/17 13:46 DC 06/18/17 13:54 20 MG ECG Indication: chest pain Rate (beats per minute): 122 Rhythm: atrial fibrillation (with RVR) Findings: T-wave inversion (Lateral), other (normal QRS, no other STS or TWI) Comparison ECG Date: 04/26/17 Change: no significant change Change: Repeat EKG: atrial flutter with a 2:1 conduction, ventricular rate is 74 beats per minute, T wave inversions laterally. ED Course 1114: The patient was evaluated in room B10. A complete history and physical exam was performed. 1245: I reevaluated the patient and she is resting comfortably. I discussed thee exam findings with her and I discussed the treatment plan. She verbalized complete understanding and agreement. She is going to be evaluated for further treatment. 1315: I discussed the patients case with Dr. Watson, Cardiology. He recommends a Cardizem drip and that the patient is evaluated for further treatment. 1324: I discussed the patients case with Dr. Bhatt, [facility]. He is going to evaluate the patient for further treatment. 1415: I reevaluated the patient and she is feeling much better. Dr. Lomeli is at the patients bedside. Medical Decision Differential diagnosis: Etiologies such as cardiac ischemia, aortic dissection, pulmonary embolism, pneumonia, pneumothorax, musculoskeletal, infections, pericarditis, myocarditis , esophageal rupture, gastrointestinal, as well as others were entertained. The patient is a 77 year old white female with a past medical history of atrial flutter, atrial fibrillation, cardiac stent, brain hemorrhage, brain surgery, who presents to the ED with a cc of intermittent chest pain described as a pressure beginning prior to arrival. Patient was seen and evaluated the bedside. Patient states that she's been having some chest pain and pressure since been ongoing today. Patient does have a prior history of atrial flutter. Patient is noted to be tachycardic on exam did have an EKG that shows some A. fib with RVR. Patient does take Coreg at home. Patient did have blood work that was completed. Patient is chronically on 2-1/2 L of oxygen at all times secondary to prior bouts procedure secondary to lung resection. Patient is no prior history of smoking. Patient describes the chest pain is pressure. Patient has a prior history of CAD and stents. Patient does complain of some mild nausea but no vomiting. Patient is not taking any aspirin or Plavix given that the patient has had a brain bleed within the last 6 months. Patient does not take any other anticoagulant medications. Patient's EKG did show some lateral depressions and T-wave inversions. Patient to inversions are old compared to prior EKG. Patient's troponin is 0.049. Aspirin was deferred at this time given that the patient has had a prior brain bleed. I did speak with the applications systems engineer who stated he needed to be careful about possibly converting the patient given that we do not want to results of blood clot or possible stroke. He did recommend starting on a Cardizem drip. No nitro at this time to see if patient's CP improves w/ better rate control. I discussed this w/ the hospitalist. I did speak with the hospitalist who agreed to evaluate and admit the patient. Of note patient did convert on cardizem. Repeat EKG shows likely a flutt w/ 2:1 conduction w/ a ventricular rate < 100. Discussed patient w/ hospitalist at bedside. CP/SOB much improved. Medication Reconcilliation Current Medication List: was personally reviewed by me Blood Pressure Screening Patient's blood pressure: Normal blood pressure Blood pressure disposition: Did not require urgent referral Consults Time Called: 1250 Consulting Physician: Dr. Watson Returned Call: 1315 I discussed the patients case with Dr. Watson, Cardiology. He recommends a Cardizem drip and that the patient is evaluated for further treatment. Additional Consults: Time Called: 1320 Consulted Physician: HUNTER Woodard Returned Call: [phone] Additional Comments: I discussed the patients case with HUNTER Woodard. He is going to evaluate the patient for further treatment. Impression Primary Impression: Atrial Fibrillation Additional Impressions: Chest pain SOB (shortness of breath) Critical Care I have personally spent greater than 45 minutes of critical care time in the direct management of this patient. This includes bedside care, interpretation of diagnostic studies, and testing, discussion with consultants, patient, and family members, and other required patient management activities. This 45 minutes is in excess of all separately billable procedures. Scribe Attestation The scribe's documentation has been prepared under my direction and personally reviewed by me in its entirety. I confirm that the note above accurately reflects all work, treatment, procedures, and medical decision making performed by me. Departure Information Dispostion Being Evaluated By Hospitalist Referrals Lizet Jeter D.O. (PCP) Problem Qualifiers Additional Impressions: Chest pain Chest pain type: unspecified Qualified Codes: R07.9 - Chest pain, unspecified
[2017-06-18 12:05] LABS: BASO % 0.4 %; BASO ABS # 0.02 K/uL (0-0.2); COMPLETE YES; EOS % 1.8 %; HEMATOCRIT 40.5 % (37-47); IG% 0.6 %; LYMPH % 19.6 %; LYMPH ABS # 0.97 K/uL (1.2-3.4); MEAN CORPUSCULAR HEMOGLOBIN 31.3 pg (25-34); MEAN CORPUSCULAR HGB CONC 33.3 g/dl (32-36); MEAN PLATELET VOLUME 12.4 fL (7.4-10.4); MONO % 6.5 %; NEUT % 71.1 %; PLATELET COUNT 139 K/uL (130-400); RED BLOOD COUNT 4.31 M/uL (4.2-5.4); WHITE BLOOD COUNT 4.95 K/uL (4.8-10.8)
[2017-06-18 12:13] LABS: PROTHROMBIN TIME (PATIENT) 10.7 SECONDS (9.0-12.0); VEN BLD GAS O2 SATURATION 64.8 %; VEN BLOOD GAS BASE EXCESS 1.2 mEq/L
[2017-06-18] MEDS ORDERED: CARVEDILOL 3.125 MG TAB PO ONE (12:30)
--- NOTE | 2017-06-18 12:38 | DIAGNOSTIC IMAGING REPORT ---
CHEST ONE VIEW PORTABLE CLINICAL HISTORY: Chest pain and. COMPARISON STUDY: Chest radiograph April 25, 2017. FINDINGS: A left subclavian [id number] remains in place. Postsurgical findings within the left upper hemithorax are noted. Cardiomegaly is unchanged. There is no evidence of pulmonary edema. There is no consolidation to suggest pneumonia. The appearance of the chest is unchanged. IMPRESSION: No acute cardiopulmonary findings. No change in appearance of the chest. Electronically signed by: Jose Mcgregor M.D. 06/18/2017 12:37 PM Dictated Date/Time: 06/18/2017 12:36 PM
[2017-06-18 12:44] LABS: ALKALINE PHOSPHATASE 64 U/L (45-117); ALT/SGPT 30 U/L (12-78); AST/SGOT 27 U/L (15-37); BLOOD UREA NITROGEN 32 mg/dl (7-18); BUN/CREATININE RATIO 21.7 (10-20); CALCIUM 9.1 mg/dl (8.5-10.1); CARBON DIOXIDE 26 mmol/L (21-32); CHLORIDE 104 mmol/L (98-107); CREATININE 1.49 mg/dl (0.60-1.20); GLUCOSE 291 mg/dl (70-99); POTASSIUM 4.3 mmol/L (3.5-5.1); SODIUM 140 mmol/L (136-145)
[2017-06-18] MEDS ORDERED: DILTIAZEM BOLUS / DRIP IV STA (13:19)
[2017-06-18] MEDS ORDERED: DILTIAZEM HCL INJ 125 MG in DEXTROSE 5% 100ML IV PRN (13:30)
[2017-06-18] MEDS ORDERED: MoRPHine SULFATE 2 MG/ML CARP IV STA (13:33)
[2017-06-18] MEDS ORDERED: MoRPHine SULFATE 2 MG/ML CARP ONE (13:34)
[2017-06-18] MEDS ORDERED: DILTIAZEM HCL 5 MG/ML 5 ML VIAL BOLUS/OMNI IV SCH (13:45)
[2017-06-18] MEDS ORDERED: INFLUENZA VIRUS QUAD VACCINE 0.5 ML SYR IM. ONE (14:00)
[2017-06-18] MEDS ORDERED: POLYETHYLENE (MIRALAX) 17 GM PACK PO PRN (14:00)
[2017-06-18] MEDS ORDERED: ALUMINUM/MAGNESIUM/SIMETH (MAALOX MAX) 30 ML UDC PO PRN (14:00)
[2017-06-18] MEDS ORDERED: NITROGLYCERIN 0.4 MG SL PER TAB CHARGE SL PRN (14:00)
[2017-06-18] MEDS ORDERED: ACETAMINOPHEN 325 MG TAB PO PRN (14:00)
[2017-06-18] MEDS ORDERED: ONDANSETRON INJ 2 MG/ML 2 ML VIAL IV PRN (14:00)
[2017-06-18 14:35] VITALS: O2SAT 95; Ht 154.9 cm; Wt 68.3 kg
[2017-06-18] MEDS ORDERED: LANTUS PER UNIT CHARGE SC STA (14:54)
[2017-06-18] MEDS ORDERED: GLUCOSE 10 TABS/TUBE PO PRN (15:00)
[2017-06-18] MEDS ORDERED: GLUCOSE 40% GEL 15 GM TUBE PO PRN (15:00)
[2017-06-18] MEDS ORDERED: LORAZEPAM 2 MG/ML 1 ML VIAL IV PRN ×2 (15:00)
[2017-06-18] MEDS ORDERED: GLUCAGON FOR INJ 1 MG VIAL SQ PRN (15:00)
[2017-06-18] MEDS ORDERED: DEXTROSE 50% 50 ML SYR IV PRN (15:00)
[2017-06-18] MEDS ORDERED: MoRPHine SULFATE 4 MG/ML 1 ML CARP\\VIAL IV PRN (15:00)
[2017-06-18] MEDS ORDERED: LORAZEPAM 0.5 MG TAB PO PRN (15:00)
--- NOTE | 2017-06-18 15:05 | History and Physical ---
History & Physical Date & Time of Service: Jun 18, 2017 at 14:58 Chief Complaint: Chest Pain Primary Care Physician: Lizet Jeter D.O. History of Present Illness 77 showed female who presents with A. fib RVR and chest pain with known history of coronary disease and diabetes who is in our facility in April with chest pain and some ST depression and T-wave inversion. Patient attributes that episode to stress in her life and was supposed to have an outpatient nuclear stress test. However the patient did not follow-up. She states since that time she's had exertional chest pain with associated diaphoresis dyspnea and nausea sometimes to the point where she gets dizzy and has to lay down this can occur doing simple things such as vacuuming her carpet. Her and urged her to be present to the ER however patient was resistant to all today when she says her symptoms became too great and she cannot stand being at home. In the ER her EKG shows similar changes to previous with inferolateral ST depression and T-wave inversion she's a mild elevation of her troponin to 0.049 and she is agreeable for further cardiac evaluation During her last stay she visited with Dr. Iraheta because she has had a intercranial hemorrhage in the past that required evacuation she is not on antiplatelet agents nor anticoagulation for her history of atrial fib. She sees Dr. Valle from [place] and he states that if it's amount of life or limb he would then support the use of anticoagulants and antiplatelet agents but until that time if we can avoid it we shall. Past Medical/Surgical History Medical Problems: (1) Atrial Fibrillation Status: Chronic (2) Atrial fibrillation or flutter Status: Chronic (3) C. 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 (7) H/O non-ST elevation myocardial infarction (NSTEMI) Status: Resolved (8) HTN (hypertension) Status: Chronic (9) Hyperlipidemia Nec/Nos Status: Chronic (10) Large Cell Lymphoma, Unsp Site, Extranodal & Solid Organ Status: Chronic (11) Neutropenia Status: Resolved (12) Peripheral neuropathy Status: Chronic Surgical Problems: (1) Knee Joint Replacement Status Status: Resolved Family History Cancer Diabetes mellitus FHx: gallbladder disease Heart disease Hypertension Social History Smoking Status: Never Smoker Drug Use: none Marital Status: Housing status: lives with family Occupational Status: retired Immunizations History of Influenza Vaccine: Yes Influenza Vaccine Date: Jul 20, 2013 History of Tetanus Vaccine?: Yes Tetanus Immunization Date: Sep 18, 2007 History of Pneumococcal: Yes Pneumococcal Date: Apr 18, 1998 History of Hepatitis B Vaccine: No Multi-Drug Resistant Organisms History of MDRO: No Allergies Coded Allergies: Eptifibatide (Verified Allergy, Severe, ANAPHYLAXIS, 04/25/17) PT STATED SHE CODED TWICE WITH MED Wasp (Verified Allergy, Severe, WASP VENOM PROTEIN-ANAPHYLAXIS, 04/25/17) Azithromycin (Verified Allergy, Intermediate, palpatations, 04/25/17) Atorvastatin (Verified Allergy, Unknown, MUSCLE PAIN, 04/25/17) Ezetimibe (Verified Allergy, Unknown, MUSCLE PAIN, 04/25/17) Simvastatin (Verified Allergy, Unknown, MUSCLE PAIN, 04/25/17) HMG-CoA-R Inhibitors (Verified Adverse Reaction, Intermediate, STATINS - NAUSEA/RASH; TOLERATES CRESTOR, 04/25/17) Warfarin (Verified Adverse Reaction, Intermediate, EXTREME BLEEDING TIMES , 04/25/17) Codeine (Verified Adverse Reaction, Mild, VOMITING, 04/25/17) Gemfibrozil (Verified Adverse Reaction, Mild, NAUSEA, 04/25/17) Meperidine (Verified Adverse Reaction, Mild, VOMITING, 04/25/17) Ondansetron (Verified Adverse Reaction, Mild, vomiting, 04/25/17) Cortisone (Verified Adverse Reaction, Unknown, INCREASES SUGAR AND VOMITING?, 04/25/17) Hydralazine (Verified Adverse Reaction, Unknown, VOMITING, 04/25/17) Ibuprofen (Verified Adverse Reaction, Unknown, VOMITING AND DIARRHEA, 04/25) Iodine (Verified Adverse Reaction, Unknown, SHELLFISH - VOMITING, 04/25/17) Shellfish (Verified Adverse Reaction, Unknown, VOMITING, 04/25/17) Sulfa Antibiotics (Verified Adverse Reaction, Unknown, VOMITING, 04/25/17) Home Medications Scheduled Ascorbic Acid (Vitamin C), 500 MG PO QAM B Complex W/ C (Vitamin B Complex-C), 1 CAP PO QAM Buspirone HCl (Buspirone HCl), 5 MG PO BID Calcium Carbonate-Vitamin D (Calcium), 1 TAB PO BID Carvedilol (Coreg), 6.25 MG PO BID Cholecalciferol (Vitamin D-1000), 2,000 UNITS PO QAM Folic Acid (Folic Acid), 800 MCG PO DAILY Insulin Aspart (Novolog), 35 UNITS SQ BID Insulin Human Regular (Novolin R), SQ TIDM Insulin Regular (Human) (Novolin R Relion), 11 UNITS SQ DAILY WITH BREAKFAST Insulin Regular (Human) (Novolin R Relion), 18 UNITS SQ DAILY WITH LUNCH Insulin Regular (Human) (Novolin R Relion), 28 UNITS SQ DAILY WITH SUPPER Magnesium Oxide (Mg Supplement (Magnesium Oxide), 1 TAB PO DAILY Multivitamin (Multivitamin), 1 TAB PO QAM Pregabalin (Lyrica), 200 MG PO BID Review of Systems ROS: well nourished well developed No double vision blurry vision No problems with speech or swallowing No palpitations but she has significant, chest pressure There is associated dyspnea with minor activity No abdominal pain , nausea accompanies her symptoms, some mild increased abdominal girth No burning urine urine frequency or changes in color No focal joint pain or muscle pain No skin rashes or oral lesions No unusual bruising or bleeding No focused back pain or numbness or loss of strength No changes in memory or confusion Physical Exam Vital Signs Date Time Temp Pulse Resp B/P (MAP) Pulse Ox O2 Delivery O2 Flow Rate FiO2 06/18/17 13:58 69 27 121/61 95 Nasal Cannula 2.0 06/18/17 12:15 123 104/73 06/18/17 12:05 132 124/88 06/18/17 12:03 138 106/77 06/18/17 12:02 138 18 106/77 94 Nasal Cannula 2.0 06/18/17 11:40 139 06/18/17 11:32 94 Nasal Cannula 2.0 06/18/17 11:32 94 Nasal Cannula 2.0 06/18/17 10:53 36.7 128 18 131/68 94 Room Air General Appearance: WD/WN, + mild distress Head: normocephalic, atraumatic Eyes: PERRL, EOMI ENT: hearing grossly normal, pharynx normal Neck: supple, no JVD Respiratory/Chest: chest non-tender, lungs clear, normal breath sounds Cardiovascular: + tachycardia, + irregularly irregular Abdomen/GI: normal bowel sounds, non tender, soft Back: no CVA tenderness, no muscle spasm Extremities/Musculoskelatal: no pedal edema, normal range of motion Neurologic/Psych: alert, oriented x 3 Skin: normal color, warm/dry, no rash Diagnostics Laboratory Results Results Past 24 Hours Test 06/18/17 11:54 Range/Units White Blood Count 4.95 4.8-10.8 K/uL Red Blood Count 4.31 4.2-5.4 M/uL Hemoglobin 13.5 12.0-16.0 g/dL Hematocrit 40.5 37-47 % Mean Corpuscular Volume 94.0 80-100 fL Mean Corpuscular Hemoglobin 31.3 25-34 pg Mean Corpuscular Hemoglobin Concent 33.3 32-36 g/dl Platelet Count 139 130-400 K/uL Mean Platelet Volume 12.4 7.4-10.4 fL Neutrophils (%) (Auto) 71.1 % Lymphocytes (%) (Auto) 19.6 % Monocytes (%) (Auto) 6.5 % Eosinophils (%) (Auto) 1.8 % Basophils (%) (Auto) 0.4 % Neutrophils # (Auto) 3.52 1.4-6.5 K/uL Lymphocytes # (Auto) 0.97 1.2-3.4 K/uL Monocytes # (Auto) 0.32 0.11-0.59 K/uL Eosinophils # (Auto) 0.09 0-0.5 K/uL Basophils # (Auto) 0.02 0-0.2 K/uL RDW Standard Deviation 54.0 36.4-46.3 fL RDW Coefficient of Variation 15.7 11.5-14.5 % Immature Granulocyte % (Auto) 0.6 % Immature Granulocyte # (Auto) 0.03 0.00-0.02 K/uL Prothrombin Time 10.7 9.0-12.0 SECONDS Prothromb Time International Ratio 1.0 0.9-1.1 Activated Partial Thromboplast Time 26.8 21.0-31.0 SECONDS Partial Thromboplastin Ratio 1.0 Venous Blood pH 7.39 7.36-7.41 Venous Blood Partial Pressure CO2 46 38.0-50.0 mmHg Venous Blood Partial Pressure O2 36 mmHg Venous Blood HCO3 27 mmol/L Venous Blood Oxygen Saturation 64.8 % Venous Blood Base Excess 1.2 mEq/L Sodium Level 140 136-145 mmol/L Potassium Level 4.3 3.5-5.1 mmol/L Chloride Level 104 98-107 mmol/L Carbon Dioxide Level 26 21-32 mmol/L Anion Gap 10.0 3-11 mmol/L Blood Urea Nitrogen 32 7-18 mg/dl Creatinine 1.49 0.60-1.20 mg/dl Est Creatinine Clear Calc Drug Dose 32.2 ml/min Estimated GFR () 39.1 Estimated GFR (Non- 33.8 BUN/Creatinine Ratio 21.7 10-20 Random Glucose 291 70-99 mg/dl Calcium Level 9.1 8.5-10.1 mg/dl Total Bilirubin 0.3 0.2-1 mg/dl Direct Bilirubin 0-0.2 mg/dl Aspartate Amino Transf (AST/SGOT) 27 15-37 U/L Alanine Aminotransferase (ALT/SGPT) 30 12-78 U/L Alkaline Phosphatase 64 45-117 U/L Troponin I 0.049 0-0.045 ng/ml Pro-B-Type Natriuretic Peptide 2939 0-1800 pg/ml Total Protein 6.2 6.4-8.2 gm/dl Albumin 3.1 3.4-5.0 gm/dl Lipase 269 73-393 U/L Diagnostic Radiology Elevated troponin noted other (a port note significant heart failure) other (atrial fibrillation RVR inferolateral ST and T wave changes similar to old) Impression Assessment and Plan 77-year-old female A. fib RVR chest pain and elevated troponin The A. fib is being controlled by diltiazem drip he typically takes carvedilol these will both be continued, the patient is not on any anticoagulation due to previous intracranial hemorrhage Exertional chest pain and elevated troponin patient is agreeable to a nuclear stress test likely will not be performed until 1126 we'll do serial cardiac enzymes and consult cardiology she has seen Dr. Iraheta in the past Diabetes patient will be on basal bolus I discussed the fact that her med reconciliation is likely erroneous and her will bring in her insulin that she takes 35 twice a day as I do not believe she is on log 35 twice a day plus along with meals plus sliding scale. We will put her on Lantus 20 twice a day with a very tight sliding scale until this information is shared Previous history of lymphoma the patient states that she is scheduled to have an outpatient CT abdomen and pelvis and up coming days she's concerned she is may have some increased abdominal girth, however recent bone scan has been negative for recurrence of malignancy There is a history of COPD in her chart typically the patient does wear oxygen and use nocturnal CPAP at home her will bring in her CPAP machine DVT prevention is SCDs and teds given her contraindication to anticoagulation VTE Prophylaxis VTE Risk Assessment Done? Y/N: Yes Risk Level: Moderate
[2017-06-18] MEDS ORDERED: DILTIAZEM BOLUS / DRIP IV PRN (15:35)
[2017-06-18 17:00] VITALS: BP 144/78; PULSE 78; TEMP 36.6; O2SAT 97
[2017-06-18] MEDS ORDERED: INFLUENZA ADMINISTRATION CHARGE ONE (17:45)
[2017-06-18] MEDS ORDERED: PNEUMOCOCCAL ADMINISTRATION CHARGE ONE (18:00)
[2017-06-18] MEDS ORDERED: INFLUENZA VACCINE HIGH DOSE 65+ 0.5 ML SYR IM. ONE (18:00)
[2017-06-18] MEDS ORDERED: PNEUMOCOCCAL POLYSACCHARIDES 25 MCG/0.5 ML VIAL/SYR IM. ONE (18:00)
[2017-06-18] MEDS: DILTIAZEM HCL INJ 125 MG in DEXTROSE 5% 100ML IV PRN (18:24)
[2017-06-18] MEDS ORDERED: INSU0.01 SQ (18:28)
[2017-06-18] MEDS: INSULIN ASPART 100 UNITS/ML 3 ML PEN SC SCH ×2 (18:30→21:20)
[2017-06-18] MEDS ORDERED: LORAZEPAM INJ 0.5 MG in SYRINGE 0.75 ML IV PRN (18:30)
[2017-06-18] MEDS ORDERED: LORAZEPAM INJ 1 MG in SYRINGE 0.5 ML IV PRN (18:30)
[2017-06-18] MEDS: INSULIN GLARGINE SOLOSTAR 100 UNITS/ML 3 ML PEN SC SCH (18:31)
[2017-06-18 19:00] VITALS: BP 127/73; PULSE 78; TEMP 36.5; O2SAT 94
[2017-06-18] MEDS: PREGABALIN 100 MG CAP PO SCH (21:13)
[2017-06-18] MEDS: CARVEDILOL 6.25 MG TAB PO SCH (21:13)
[2017-06-18 23:08] VITALS: BP 123/69; PULSE 69; TEMP 36.5; O2SAT 96
[2017-06-19] VITALS (8 sets, daily range): BP systolic 102–150; BP diastolic 52–97; PULSE 67–91; TEMP 36.4–36.8; O2SAT 92–97
[2017-06-19 04:04] LABS: HEMATOCRIT 41.9 % (37-47); MEAN CELL VOLUME 94.2 fL (80-100); MEAN CORPUSCULAR HEMOGLOBIN 29.2 pg (25-34); MEAN PLATELET VOLUME 12.3 fL (7.4-10.4); PLATELET COUNT 145 K/uL (130-400); RED BLOOD COUNT 4.45 M/uL (4.2-5.4); WHITE BLOOD COUNT 5.57 K/uL (4.8-10.8)
[2017-06-19] MEDS: DILTIAZEM HCL INJ 125 MG in DEXTROSE 5% 100ML IV PRN (04:08)
[2017-06-19 04:21] LABS: BUN/CREATININE RATIO 24.1 (10-20); CALCIUM 8.1 mg/dl (8.5-10.1); CREATININE 1.48 mg/dl (0.60-1.20); POTASSIUM 4.3 mmol/L (3.5-5.1)
[2017-06-19] MEDS: CARVEDILOL 6.25 MG TAB PO SCH (07:59)
[2017-06-19] MEDS: FoLIC ACID TAB 400 MCG TAB PO SCH (07:59)
[2017-06-19] MEDS: PREGABALIN 100 MG CAP PO SCH (08:01)
[2017-06-19] MEDS: INSULIN ASPART 100 UNITS/ML 3 ML PEN SC SCH ×3 (08:07→17:26)
[2017-06-19] MEDS: INSULIN GLARGINE SOLOSTAR 100 UNITS/ML 3 ML PEN SC SCH (08:08)
--- NOTE | 2017-06-19 10:44 | Cardiology Consultation ---
Cardiology Consultation Date of Consultation: Jun 19, 2017. Requesting Physician: Dr. Goins Reason for Consultation: Atrial fibrillation, elevated troponin Pt evaluation today including: conversation w/ patient, physical exam, lab review, review of studies, review of inpatient medication list, conversation w/ attending History of Present Illness This is a 77-year-old woman who has a history of coronary artery disease including stenting in the past, catheterization 08/03/2011 showed multivessel disease with patent stents which were previously placed. A nuclear stress test 04/10/2015 was negative for ischemia. She also has a history of apical variant hypertrophic cardiomyopathy and chronic congestive heart failure. She was admitted in early April 2017 with chest discomfort, however her troponin was not elevated and she had no new electrocardiographic changes. An outpatient nuclear stress test was recommended and she was discharged. She subsequently did not have the stress test done. She also has a history of paroxysmal atrial flutter, she had been maintained on Eliquis for this. She evidently fell on 11/03/2016 and was seen in the emergency room, although there was felt to be no intracerebral bleed at that time. She then had neurologic symptoms and her CT scan from November 29, 2016 was read as chronic bilateral subdural hematomas, the comparison study was 2016 however the report on that study does not describe them so I'm not sure when they occurred. Evidently they were worse in November 2016. She was transferred to [facility] and mayh have required neurosurgical intervention. I haven't found detailed records regarding that. Her Eliquis was discontinued and she has not been on it since. She has been instructed not to take antiplatelet agents or anticoagulants if at all possible. In the past she had been on amiodarone, her amiodarone was discontinued on 04/19/2016, from the record it appears she was doing well on it but was concerned about the side effects. At that time she was on Eliquis. She is currently not on an antiarrhythmic. She presents now with worsening exertional chest discomfort associated with diaphoresis and dyspnea, occasionally she has to lay down because of dizziness which occurs at the same time. In the emergency room she was found to have atrial fibrillation or flutter with a rapid ventricular response. It is not clear when this started, 04/26/2017 she was in sinus rhythm, she feels that her symptoms worsened shortly thereafter which is not specifically aware of the arrhythmia. Today she feels well, she has not had chest discomfort since admission. It seems as though her discomfort is only exertional. Past Medical/Surgical History (1) Hyperlipidemia Nec/Nos (2) Large Cell Lymphoma, Unsp Site, Extranodal & Solid Organ (3) Peripheral neuropathy (4) Diabetes (5) HTN (hypertension) (6) Atrial fibrillation or flutter (7) H/O non-ST elevation myocardial infarction (NSTEMI) (8) C. difficile colitis Family History Cancer Diabetes mellitus FHx: gallbladder disease Heart disease Hypertension Social History Smoking Status: Never Smoker History of Alcohol Use: No Allergies Coded Allergies: Eptifibatide (Verified Allergy, Severe, ANAPHYLAXIS, 04/25/17) PT STATED SHE CODED TWICE WITH MED Wasp (Verified Allergy, Severe, WASP VENOM PROTEIN-ANAPHYLAXIS, 04/25/17) Azithromycin (Verified Allergy, Intermediate, palpatations, 04/25/17) Atorvastatin (Verified Allergy, Unknown, MUSCLE PAIN, 04/25/17) Ezetimibe (Verified Allergy, Unknown, MUSCLE PAIN, 04/25/17) Simvastatin (Verified Allergy, Unknown, MUSCLE PAIN, 04/25/17) HMG-CoA-R Inhibitors (Verified Adverse Reaction, Intermediate, STATINS - NAUSEA/RASH; TOLERATES CRESTOR, 04/25/17) Warfarin (Verified Adverse Reaction, Intermediate, EXTREME BLEEDING TIMES , 04/25/17) Codeine (Verified Adverse Reaction, Mild, VOMITING, 04/25/17) Gemfibrozil (Verified Adverse Reaction, Mild, NAUSEA, 04/25/17) Meperidine (Verified Adverse Reaction, Mild, VOMITING, 04/25/17) Ondansetron (Verified Adverse Reaction, Mild, vomiting, 04/25/17) Cortisone (Verified Adverse Reaction, Unknown, INCREASES SUGAR AND VOMITING?, 04/25/17) Hydralazine (Verified Adverse Reaction, Unknown, VOMITING, 04/25/17) Ibuprofen (Verified Adverse Reaction, Unknown, VOMITING AND DIARRHEA, 04/25) Iodine (Verified Adverse Reaction, Unknown, SHELLFISH - VOMITING, 04/25/17) Shellfish (Verified Adverse Reaction, Unknown, VOMITING, 04/25/17) Sulfa Antibiotics (Verified Adverse Reaction, Unknown, VOMITING, 04/25/17) Medications Current Inpatient Medications Medications (Trade) Dose Ordered Sig/Carmen Route Start Time Stop Time Status Last Admin Dose Admin Buspirone HCl (Buspar Tab) 5 mg BID PO 06/18/17 21:00 07/18/17 20:59 06/19/17 07:59 5 MG Carvedilol (Coreg Tab) 6.25 mg BID PO 06/18/17 21:00 07/18/17 20:59 06/19/17 07:59 6.25 MG Pregabalin (Lyrica Cap) 200 mg BID PO 06/18/17 21:00 07/18/17 20:59 06/19/17 08:01 200 MG Folic Acid (Folvite Tab) 800 mcg DAILY PO 06/19/17 09:00 07/19/17 08:59 06/19/17 07:59 800 MCG Insulin Aspart (novoLOG ASPART) SLIDING SCALE PARAMETER ACHS SC 06/18/17 17:19 07/18/17 17:18 06/19/17 08:07 10 UNITS Acetaminophen (Tylenol Tab) 650 mg Q4H PRN PO 06/18/17 14:00 07/18/17 13:59 Al Hydrox/Mg Hydrox/Simethicone (Maalox Max Susp) 15 ml Q4H PRN PO 06/18/17 14:00 07/18/17 13:59 Ondansetron HCl (Zofran Inj) 4 mg Q6H PRN IV 06/18/17 14:00 07/18/17 13:59 Nitroglycerin (Nitrostat Tab) 0.4 mg UD PRN SL 06/18/17 14:00 07/18/17 13:59 Polyethylene (Miralax Powder Packet) 17 gm DAILY PRN PO 06/18/17 14:00 07/18/17 13:59 06/19/17 08:09 17 GM Lorazepam (Ativan Inj) 0.5 mg Q4H PRN IV 06/18/17 15:00 07/18/17 14:59 Lorazepam (Ativan Inj) 1 mg Q4H PRN IV 06/18/17 15:00 07/18/17 14:59 Lorazepam (Ativan Tab) 0.5 mg Q6 PRN PO 06/18/17 15:00 07/18/17 14:59 Morphine Sulfate (MoRPHine SULFATE INJ) 4 mg Q4H PRN IV 06/18/17 15:00 07/02/17 14:59 Glucose (Glucose 40% Gel) 15-30 GRAMS 15 GRAMS... UD PRN PO 06/18/17 15:00 07/18/17 14:59 Glucose (Glucose Chew Tab) 4-8 Tablets 4 Tabl... UD PRN PO 06/18/17 15:00 07/18/17 14:59 Dextrose (Dextrose 50% 50ML Syringe) 25-50ML OF 50% DW IV FOR... UD PRN IV 06/18/17 15:00 07/18/17 14:59 Glucagon (Glucagon Inj) 1 mg UD PRN SQ 06/18/17 15:00 07/18/17 14:59 Diltiazem HCl 125 mg/Dextrose 125 ml @ 0 mls/hr Q0M PRN IV 06/18/17 17:15 07/18/17 17:14 06/19/17 04:08 10 MLS/HR Insulin Glargine (Lantus Solostar Pen) 20 units BID SC 06/18/17 17:21 07/18/17 17:20 06/19/17 08:08 20 UNITS Lorazepam 1 mg/ Syringe 1 ml @ 1 mls/min Q4H PRN IV 06/18/17 18:30 07/18/17 18:29 Lorazepam 0.5 mg/ Syringe 1 ml @ 1 mls/min Q4H PRN IV 06/18/17 18:30 07/18/17 18:29 Heparin Sodium (Porcine) (Heparin 100 Unit/ml 5ml Flush) 5 ml PRN PRN IV 06/19/17 01:15 07/19/17 01:14 Physical Exam Vital Signs Past 12 Hours Date Time Temp Pulse Resp B/P (MAP) Pulse Ox O2 Delivery O2 Flow Rate FiO2 06/19/17 08:00 Nasal Cannula 2.0 06/19/17 07:43 36.6 69 18 117/63 (81) 93 CPAP 06/19/17 06:11 128/65 (86) 06/19/17 04:00 36.7 70 18 105/52 (69) 92 CPAP 06/19/17 04:00 95 Nasal Cannula 2.0 CPAP 06/19/17 00:00 95 Nasal Cannula 2.0 CPAP 06/18/17 23:08 36.5 69 16 123/69 (87) 96 Nasal Cannula 2.0 Constitutional: General Apperance: overweight Level of Distress: NAD Psychiatric: Mental Status: active & alert Head: normocephalic Eyes: EOM: EOMI ENMT: normal ENT inspection, hearing grossly normal Neck: supple, no masses Lungs: Respiratory effort: no dyspnea, good air movement Auscultation: breath sounds normal, no wheezing Cardiovascular: Heart Auscultation: RRR, no murmurs, no rubs, no gallops Peripheral Pulses: Bruits: none appreciated Abdomen: Bowel Sounds: normal Inspection & Palpation: soft, no tenderness, guarding & rebound, no masses Musculoskeletal: normal strength (5/5 throughout) Extremities: no edema Neurologic: Cranial Nerves: grossly intact Sensation: grossly intact Data Laboratory Results: Last 24 Hours Test 06/18/17 11:54 06/18/17 17:06 06/18/17 20:13 06/18/17 21:03 White Blood Count 4.95 K/uL Red Blood Count 4.31 M/uL Hemoglobin 13.5 g/dL Hematocrit 40.5 % Mean Corpuscular Volume 94.0 fL Mean Corpuscular Hemoglobin 31.3 pg Mean Corpuscular Hemoglobin Concent 33.3 g/dl Platelet Count 139 K/uL Mean Platelet Volume 12.4 fL Neutrophils (%) (Auto) 71.1 % Lymphocytes (%) (Auto) 19.6 % Monocytes (%) (Auto) 6.5 % Eosinophils (%) (Auto) 1.8 % Basophils (%) (Auto) 0.4 % Neutrophils # (Auto) 3.52 K/uL Lymphocytes # (Auto) 0.97 K/uL Monocytes # (Auto) 0.32 K/uL Eosinophils # (Auto) 0.09 K/uL Basophils # (Auto) 0.02 K/uL RDW Standard Deviation 54.0 fL RDW Coefficient of Variation 15.7 % Immature Granulocyte % (Auto) 0.6 % Immature Granulocyte # (Auto) 0.03 K/uL Prothrombin Time 10.7 SECONDS Prothromb Time International Ratio 1.0 Activated Partial Thromboplast Time 26.8 SECONDS Partial Thromboplastin Ratio 1.0 Venous Blood pH 7.39 Venous Blood Partial Pressure CO2 46 mmHg Venous Blood Partial Pressure O2 36 mmHg Venous Blood HCO3 27 mmol/L Venous Blood Oxygen Saturation 64.8 % Venous Blood Base Excess 1.2 mEq/L Sodium Level 140 mmol/L Potassium Level 4.3 mmol/L Chloride Level 104 mmol/L Carbon Dioxide Level 26 mmol/L Anion Gap 10.0 mmol/L Blood Urea Nitrogen 32 mg/dl Creatinine 1.49 mg/dl Est Creatinine Clear Calc Drug Dose 32.2 ml/min Estimated GFR () 39.1 Estimated GFR (Non- 33.8 BUN/Creatinine Ratio 21.7 Random Glucose 291 mg/dl Calcium Level 9.1 mg/dl Total Bilirubin 0.3 mg/dl Direct Bilirubin mg/dl Aspartate Amino Transf (AST/SGOT) 27 U/L Alanine Aminotransferase (ALT/SGPT) 30 U/L Alkaline Phosphatase 64 U/L Troponin I 0.049 ng/ml 0.071 ng/ml Pro-B-Type Natriuretic Peptide 2939 pg/ml Total Protein 6.2 gm/dl Albumin 3.1 gm/dl Lipase 269 U/L Bedside Glucose 207 mg/dl 243 mg/dl Test 06/19/17 03:57 06/19/17 06:57 White Blood Count 5.57 K/uL Red Blood Count 4.45 M/uL Hemoglobin 13.0 g/dL Hematocrit 41.9 % Mean Corpuscular Volume 94.2 fL Mean Corpuscular Hemoglobin 29.2 pg Mean Corpuscular Hemoglobin Concent 31.0 g/dl RDW Standard Deviation 53.9 fL RDW Coefficient of Variation 15.7 % Platelet Count 145 K/uL Mean Platelet Volume 12.3 fL Sodium Level 137 mmol/L Potassium Level 4.3 mmol/L Chloride Level 103 mmol/L Carbon Dioxide Level 26 mmol/L Anion Gap 8.0 mmol/L Blood Urea Nitrogen 36 mg/dl Creatinine 1.48 mg/dl Est Creatinine Clear Calc Drug Dose 32.4 ml/min Estimated GFR () 39.5 Estimated GFR (Non- 34.0 BUN/Creatinine Ratio 24.1 Random Glucose 219 mg/dl Calcium Level 8.1 mg/dl Troponin I 0.074 ng/ml Bedside Glucose 214 mg/dl Imaging: Chest x-ray shows clear lung edmonds. EKG: Initially atrial fibrillation or flutter with a heart rate of 122 bpm at rest. This morning atrial flutter with what appears to be 4 to one AV block with a ventricular rate of 70 bpm. Telemetry reviewed: Initially atrial fibrillation or atrial flutter with a rapid ventricular response, one starting intravenous diltiazem her rate dropped significantly and regularized but appears to be 4-1 atrial flutter. Assessment & Plan #1. Atrial arrhythmia: She has a history of paroxysmal atrial flutter, she was on amiodarone for control but was discontinued due to concern of side effects. She was on eliquis to protect her from stroke but developed a subdural hematoma following a fall. She now returns with paroxysmal atrial flutter, currently rate controlled but quite fast on admission and probably with exertion prior to admission. Her current episode of atrial flutter evidently started sometime after 04/26/2017. It isn't clear how long she has been in it. Our options are limited, ideally we would start an anticoagulant (since she had a subdural hematoma following a fall I don't know that that is strictly contraindicated although she is evidently been told not to take them). We could consider converting her back to sinus rhythm, either with amiodarone or electrically, but that would require a ELZA and after cardioversion she really should be anticoagulated. The other approaches to leave things alone with rate control, if she converts spontaneously to sinus rhythm then we could restart her amiodarone. #2. Coronary disease: She presented with symptoms of exertional chest discomfort as well as an elevated troponin, her troponin however is quite low, only 0.074. This would be consistent with demand ischemia based on her known coronary artery disease and her rapid rates during atrial fibrillation. Basically on this I would not pursue invasive evaluation and her electrocardiogram does not show acute changes. We should consider a stress test (which had been planned before), although we can intervene this is of limited use. We will get more information if we did a stress test rather than a pharmacologic study as exercise may reproduce her exertional symptoms. #3. Exertional chest discomfort: Her worsening of exertional chest discomfort currently could be due to rapid rates during her atrial arrhythmia, which is likely given her description of dizziness and near syncope associated with the exercise. I would make sure that her rate is well controlled before performing stress test, and I think a treadmill stress test (even if she doesn't do very well on it) would be useful to see whether she has rapid heart rates during activity and with that reproduces her symptoms of chest discomfort. Without significant ischemia on stress imaging or quite severe symptoms I would be reluctant to consider invasive evaluation. I will discuss this with Dr. Iraheta who sees the patient is an outpatient. Thank you for allowing me to participate in her care.
[2017-06-19] MEDS: DILTIAZEM SR 60 MG CAP PO SCH (11:32)
--- NOTE | 2017-06-19 13:30 | Progress Note ---
Subjective Date of Service: Jun 19, 2017. Subjective pt has been without symptoms but has not been exerting herself in the hospital, no further syncopal spells. has many questions about the upcoming stress test Problem List Medical Problems: (1) Acute chest pain Status: Acute (2) Atrial Fibrillation Status: Chronic (3) Chest pain Status: Acute (4) Closed head injury Status: Acute (5) COPD exacerbation Status: Acute (6) COPD exacerbation Status: Acute (7) Facial laceration Status: Acute (8) Failure of outpatient treatment Status: Acute (9) Fall from bed Status: Acute (10) Left hip pain Status: Acute (11) Pain in left mccormick Status: Acute (12) PNA (pneumonia) Status: Acute (13) Right arm pain Status: Acute (14) SOB (shortness of breath) Status: Acute (15) Sternal pain Status: Acute (16) Subdural hematoma Status: Acute Review of Systems Constitutional: + weakness, No fever, No chills, No fatigue Respiratory: No cough, No sputum, No shortness of breath Cardiac: No chest pain, No orthopnea, No edema Abdomen: No pain, No nausea, No vomiting, No diarrhea Musculoskeletal: No joint pain, No muscle pain Psychiatric: No depression symptoms, No anhedonism Objective Vital Signs Date Time Temp Pulse Resp B/P (MAP) Pulse Ox O2 Delivery O2 Flow Rate FiO2 06/19/17 06:11 128/65 (86) 06/19/17 04:00 36.7 70 18 105/52 (69) 92 CPAP 06/19/17 04:00 95 Nasal Cannula 2.0 CPAP 06/19/17 00:00 95 Nasal Cannula 2.0 CPAP 06/18/17 23:08 36.5 69 16 123/69 (87) 96 Nasal Cannula 2.0 06/18/17 19:00 36.5 78 18 127/73 (91) 94 Nasal Cannula 2.0 06/18/17 17:00 36.6 78 20 144/78 (100) 97 Nasal Cannula 2.0 06/18/17 14:35 95 Nasal Cannula 2.0 06/18/17 13:58 69 27 121/61 95 Nasal Cannula 2.0 06/18/17 12:15 123 104/73 06/18/17 12:05 132 124/88 06/18/17 12:03 138 106/77 06/18/17 12:02 138 18 106/77 94 Nasal Cannula 2.0 06/18/17 11:40 139 06/18/17 11:32 94 Nasal Cannula 2.0 06/18/17 11:32 94 Nasal Cannula 2.0 06/18/17 10:53 36.7 128 18 131/68 94 Room Air Physical Exam General Appearance: WD/WN, no apparent distress Eyes: PERRL, EOMI Neck: supple, no JVD Respiratory/Chest: chest non-tender, lungs clear, normal breath sounds Cardiovascular: regular rate, rhythm, no murmur Abdomen: normal bowel sounds, non tender, soft Extremities: no pedal edema, no calf tenderness Laboratory Results Last 24 Hours Test 06/18/17 11:54 06/18/17 17:06 06/18/17 20:13 06/18/17 21:03 White Blood Count 4.95 K/uL Red Blood Count 4.31 M/uL Hemoglobin 13.5 g/dL Hematocrit 40.5 % Mean Corpuscular Volume 94.0 fL Mean Corpuscular Hemoglobin 31.3 pg Mean Corpuscular Hemoglobin Concent 33.3 g/dl Platelet Count 139 K/uL Mean Platelet Volume 12.4 fL Neutrophils (%) (Auto) 71.1 % Lymphocytes (%) (Auto) 19.6 % Monocytes (%) (Auto) 6.5 % Eosinophils (%) (Auto) 1.8 % Basophils (%) (Auto) 0.4 % Neutrophils # (Auto) 3.52 K/uL Lymphocytes # (Auto) 0.97 K/uL Monocytes # (Auto) 0.32 K/uL Eosinophils # (Auto) 0.09 K/uL Basophils # (Auto) 0.02 K/uL RDW Standard Deviation 54.0 fL RDW Coefficient of Variation 15.7 % Immature Granulocyte % (Auto) 0.6 % Immature Granulocyte # (Auto) 0.03 K/uL Prothrombin Time 10.7 SECONDS Prothromb Time International Ratio 1.0 Activated Partial Thromboplast Time 26.8 SECONDS Partial Thromboplastin Ratio 1.0 Venous Blood pH 7.39 Venous Blood Partial Pressure CO2 46 mmHg Venous Blood Partial Pressure O2 36 mmHg Venous Blood HCO3 27 mmol/L Venous Blood Oxygen Saturation 64.8 % Venous Blood Base Excess 1.2 mEq/L Sodium Level 140 mmol/L Potassium Level 4.3 mmol/L Chloride Level 104 mmol/L Carbon Dioxide Level 26 mmol/L Anion Gap 10.0 mmol/L Blood Urea Nitrogen 32 mg/dl Creatinine 1.49 mg/dl Est Creatinine Clear Calc Drug Dose 32.2 ml/min Estimated GFR () 39.1 Estimated GFR (Non- 33.8 BUN/Creatinine Ratio 21.7 Random Glucose 291 mg/dl Calcium Level 9.1 mg/dl Total Bilirubin 0.3 mg/dl Direct Bilirubin mg/dl Aspartate Amino Transf (AST/SGOT) 27 U/L Alanine Aminotransferase (ALT/SGPT) 30 U/L Alkaline Phosphatase 64 U/L Troponin I 0.049 ng/ml 0.071 ng/ml Pro-B-Type Natriuretic Peptide 2939 pg/ml Total Protein 6.2 gm/dl Albumin 3.1 gm/dl Lipase 269 U/L Bedside Glucose 207 mg/dl 243 mg/dl Test 06/19/17 03:57 06/19/17 06:57 White Blood Count 5.57 K/uL Red Blood Count 4.45 M/uL Hemoglobin 13.0 g/dL Hematocrit 41.9 % Mean Corpuscular Volume 94.2 fL Mean Corpuscular Hemoglobin 29.2 pg Mean Corpuscular Hemoglobin Concent 31.0 g/dl RDW Standard Deviation 53.9 fL RDW Coefficient of Variation 15.7 % Platelet Count 145 K/uL Mean Platelet Volume 12.3 fL Sodium Level 137 mmol/L Potassium Level 4.3 mmol/L Chloride Level 103 mmol/L Carbon Dioxide Level 26 mmol/L Anion Gap 8.0 mmol/L Blood Urea Nitrogen 36 mg/dl Creatinine 1.48 mg/dl Est Creatinine Clear Calc Drug Dose 32.4 ml/min Estimated GFR () 39.5 Estimated GFR (Non- 34.0 BUN/Creatinine Ratio 24.1 Random Glucose 219 mg/dl Calcium Level 8.1 mg/dl Troponin I 0.074 ng/ml Bedside Glucose 214 mg/dl Assessment and Plan 77-year-old female A. fib RVR chest pain and elevated troponin The A. fib had been controlled by diltiazem drip will convert to po bid diltiazem and continue the typically taken carvedilol, the patient is not on any anticoagulation due to previous intracranial hemorrhage and advice from her Neurosurgeon. If needed such as stemi or need for LHC or just AC from Afib will need to discuss with Dr Valle in [place] Exertional chest pain and elevated troponin this has trended 0.07, patient is agreeable to a nuclear stress test will attempt to have treadmill nuclear test, consult cardiology she did see Dr Watson and she has seen Dr. Iraheta in the past Diabetes patient will be on basal bolus in the 200's with Lantus 20 twice a day with a very tight sliding scale, may need to increase lantus but will be npo for stress overnight Previous history of lymphoma the patient states that she is scheduled to have an outpatient CT abdomen and pelvis this week, recent bone scan has been negative for recurrence of malignancy COPD she typically wears oxygen and use nocturnal CPAP at home DVT prevention is SCDs and teds given her contraindication to anticoagulation
[2017-06-20] VITALS: BP 150/97; PULSE 91; TEMP 36.8; O2SAT 94
[2017-06-20] MEDS: DILTIAZEM SR 60 MG CAP PO SCH ×2 (00:47→09:31)
[2017-06-20] MEDS: PREGABALIN 100 MG CAP PO SCH ×2 (00:48→08:02)
[2017-06-20] MEDS: CARVEDILOL 6.25 MG TAB PO SCH ×2 (00:48→09:31)
[2017-06-20] MEDS: INSULIN GLARGINE SOLOSTAR 100 UNITS/ML 3 ML PEN SC SCH ×2 (00:49→14:24)
[2017-06-20] MEDS: INSULIN ASPART 100 UNITS/ML 3 ML PEN SC SCH ×5 (00:52→17:03)
[2017-06-20] MEDS ORDERED: PREGABALIN 100 MG CAP PO STA (01:46)
[2017-06-20 03:01] VITALS: BP 148/72; PULSE 80; TEMP 36.9; O2SAT 92
[2017-06-20 07:53] VITALS: BP 156/81; PULSE 130; TEMP 36.9; O2SAT 96
[2017-06-20] MEDS: FoLIC ACID TAB 400 MCG TAB PO SCH (07:53)
[2017-06-20 09:05] LABS: HEMATOCRIT 41.3 % (37-47); MEAN CELL VOLUME 93.2 fL (80-100); MEAN CORPUSCULAR HEMOGLOBIN 30.5 pg (25-34); MEAN CORPUSCULAR HGB CONC 32.7 g/dl (32-36); PLATELET COUNT 132 K/uL (130-400); RED BLOOD COUNT 4.43 M/uL (4.2-5.4); WHITE BLOOD COUNT 4.71 K/uL (4.8-10.8)
[2017-06-20 09:23] LABS: BUN/CREATININE RATIO 25.3 (10-20); CALCIUM 8.7 mg/dl (8.5-10.1); CREATININE 1.22 mg/dl (0.60-1.20); MAGNESIUM 1.6 mg/dl (1.8-2.4); POTASSIUM 4.1 mmol/L (3.5-5.1)
[2017-06-20 13:46] VITALS: BP 152/90; PULSE 81; TEMP 36.6; O2SAT 96
[2017-06-20] MEDS ORDERED: CRDSR60 PO (15:26)
--- NOTE | 2017-06-20 16:18 | Discharge Instructions ---
Discharge Instructions Date of Service Jun 20, 2017. Admission Reason for Admission: Elevated Troponin Discharge Discharge Diagnosis / Problem: Exertional chest pain, atrial fibrillation Discharge Goals Goal(s): Decrease discomfort, Improve function, Diagnostic testing, Therapeutic intervention Activity Recommendations Activity Limitations: resume your previous activity (as tolerated) . Instructions / Follow-Up Instructions / Follow-Up You were admitted to the hospital after presenting with severe exertional chest pain. You were also found to be in an irregular rhythm called atrial fibrillation with a rapid heart rate. You were initially treated with an IV drip of diltiazem due to your heart rhythm and rate. This was later stopped and you were started on oral diltiazem which has been keeping your heart rate under control. You did have a mildly elevated troponin, which is a cardiac enzyme, while in the hospital, but this did not appear to be due to an acute cardiac event and did return to normal prior to discharge. A nuclear exercise stress test was completed, and this was normal. Medications: *Please take diltiazem 60 mg by mouth twice a day. This is a new medication for the abnormal heart rhythm *Continue your other home medications as prescribed. *Some questions were raised about your insulin regimen. The regimen was confirmed by your pharmacy. Please continue your current home insulin regimen as prescribed until you follow up with your primary care provider on 06/21. You may require adjustments to this regimen for better/more efficient control. Follow up: *You have been scheduled to follow up with your primary care provider's office tomorrow, 06/21. Further details have been provided in these instructions. Please seek medical attention if you experience fevers, chills, sweats, dizziness/lightheadedness, loss of consciousness, chest pain, shortness of breath, nausea, vomiting, numbness or tingling. Current Hospital Diet Patient's current hospital diet: Diabetes Type 2 Diet, AHA Diet (Heart Healthy) Discharge Diet Recommended Diet: AHA Diet (Heart Healthy), Diabetes Type 2 Diet Procedures Procedures Performed: Nuclear stress test Pending Studies Studies pending at discharge: no Medical Emergencies . Who to Call and When: Medical Emergencies: If at any time you feel your situation is an emergency, please call 911 immediately. . Non-Emergent Contact Non-Emergency issues call your: Primary Care Provider, [employer] Call Non-Emergent contact if: you have a fever, your pain is not controlled, your pain is worsening, your pain is unusual for you, your pain is concerning you, you have any medication questions . Past History Medical & Surgical History: (1) Atrial Fibrillation (2) Chest pain . "Provider Documentation" section prepared by Purvi Pulido. . VTE Core Measure Inpt VTE Proph given/why not?: T.E.D. Stockings, SCD's
[2017-06-20 16:31] VITALS: BP 140/88; PULSE 74; O2SAT 97
--- NOTE | 2017-06-20 16:49 | Discharge Summary ---
Discharge Summary Date of Service Jun 20, 2017. (Purvi Pulido PA-C) Discharge Summary Admission Date: Jun 18, 2017 at 14:06 Discharge Date: Jun 20, 2017 Discharge Disposition: Home Principal Diagnosis: Chest pain, atrial fibrillation Problems/Secondary Diagnoses: (1) Atrial Fibrillation Status: Chronic Immunizations: Have You Had Influenza Vaccine: Yes Influenza Vaccine Date: Jul 20, 2013 History of Tetanus Vaccine?: Yes Tetanus Immunization Date: Sep 18, 2007 History of Pneumococcal: Yes Pneumococcal Date: Apr 18, 1998 History of Hepatitis B Vaccine: No (Purvi Pulido PA-C) Medication Reconciliation New Medications: Diltiazem HCl (Diltiazem HCl ER) 60 Mg Capcr 60 MG PO BID for 30 Days, #60 CAP Continued Medications: Ascorbic Acid (Vitamin C) 500 Mg Tab 500 MG PO QAM B Complex W/ C (Vitamin B Complex-C) 1 Cap Cap 1 CAP PO QAM Buspirone HCl (Buspirone HCl) 5 Mg Tab 5 MG PO BID, #90 Calcium Carbonate-Vitamin D (Calcium) 1 Tab Tab 1 TAB PO BID Carvedilol (Coreg) 6.25 Mg Tab 6.25 MG PO BID, TAB Cholecalciferol (Vitamin D-1000) 1,000 Unit Tab 2000 UNITS PO QAM Folic Acid (Folic Acid) 800 Mcg Tab 800 MCG PO DAILY Insulin Human Regular (Novolin R) 100 Units/1 Ml Inj SQ TIDM SLIDING SCALE Insulin Isophane (Human) (Novolin N Relion) 100 Unit/Ml Inj 35 UNITS SQ BID Insulin Regular (Human) (Novolin R Relion) 100 Unit/Ml Inj 11 UNITS SQ DAILY WITH BREAKFAST PLUS SLIDING SCALE Insulin Regular (Human) (Novolin R Relion) 100 Unit/Ml Inj 18 UNITS SQ DAILY WITH LUNCH PLUSS SLIDING SCALE Insulin Regular (Human) (Novolin R Relion) 100 Unit/Ml Inj 28 UNITS SQ DAILY WITH SUPPER PLUS SLIDING SCALE Magnesium Oxide (Mg Supplement (Magnesium Oxide) 400 Mg Tab 1 TAB PO DAILY Multivitamin (Multivitamin) Tab 1 TAB PO QAM, 0 Refills Pregabalin (Lyrica) 200 Mg Cap 200 MG PO BID, CAP Discharge Exam Patient reports feeling well. She does not have any exertional chest pain this morning. She states she has a chronic mild chest discomfort that she rates as a "less than 1 out of 10" in her mid chest, but nothing like she had been feeling when she first came in. She also complains of nausea which she states is again chronic. She had noted some palpitations earlier this morning, but they have since resolved. The patient denies fevers, chills, sweats, claudication, cough, wheezing, shortness of breath, vomiting, abdominal pain, dysuria, hematuria, urinary retention, paralysis, weakness, numbness and tingling. Review of Systems: Constitutional: No fever, No chills, No sweats Eyes: No worsening of vision, No eye pain, No diplopia ENT: No hearing loss, No nasal symptoms, No trouble swallowing Respiratory: No cough, No wheezing, No shortness of breath Cardiovascular: + chest pain, + palpitations, No claudication Abdomen: No pain, No nausea, No vomiting Musculoskeletal: No joint pain, No muscle pain, No swelling Genitourinary - Female: No dysuria, No urinary retention, No hematuria Neurologic: No paralysis, No weakness, No numbness/tingling Integumentary: No rash, No itch, No color change Physical Exam: General Appearance: WD/WN, no apparent distress Eyes: normal inspection, PERRL, EOMI ENT: normal ENT inspection, hearing grossly normal, pharynx normal Neck: supple, no JVD, trachea midline Respiratory/Chest: lungs clear, normal breath sounds, no respiratory distress Cardiovascular: no gallop, no murmur, + irregularly irregular (rate controlled) Abdomen / GI: normal bowel sounds, soft, + tenderness (mild lower abdominal tenderness) Extremities: normal inspection, no calf tenderness, + swelling (trace pitting edema) Neurologic/Psychiatric: alert, normal mood/affect, oriented x 3 Skin: normal color, warm/dry, no rash (Purvi Pulido ., SILVIAC) Hospital Course 77 y/o female with a history of paroxysmal a-fib, h/o intracranial hemorrhage while on anticoagulation, HTN, HLD, CAD with h/o NSTEMI, DM II, h/o lymphoma, anxiety, and peripheral neuropathy who presents with chest pain, elevated troponin and a-fib with RVR. Chest pain, h/o CAD and NSTEMI--resolved, back to baseline -Admit to telemetry. Pt remains in a-fib, up to 130s prior to morning medications, otherwise mostly controlled in 80s-90s -Troponin mildly elevated at 0.074. Repeat trop 06/20 negative -Cardiology consulted, appreciate recs: Recommend exercise nuclear stress test to see if exertion reproduces RVR and/or chest pain. If no clear ischemia or severe symptoms on stress, would avoid further invasive evaluation. -Spoke with Dr. Iraheta regarding results of nuclear exercise stress test. Pt only achieved 70% of predicted target HR, but perfusion study at that point normal. Exertion did not reproduce RVR and pt remained rate control. Did not reproduce chest pain. Not a good candidate for invasive evaluation. Will f/u with her as oupt A-fib with RVR--stable, rate controlled -D/C with diltiazem 60 mg PO BID -Continue Coreg 6.25 mg PO BID -Not a good candidate for cardioversion as pt cannot be anticoagulated (history of ICH) HTN, HLD--stable -Continue Coreg as above DM II--stable -Questions regarding pt's home insulin regimen. Pt's pharmacy was called who did confirm the prescriptions. Attempted to call PCP office for clarification of regimen but prescribing physician not in the office. Case management will follow up. Recommend that pt be on long acting insulin in addition to short acting. -Will d/c pt back on home regimen as she is scheduled to follow up with PCP following day and could not successfully clarify current regimen -Lantus 20 units SC BID while inpt -Insulin sliding scale -Check BSGs q ac and qhs H/o lymphoma -Pt to have outpt CT a/p for f/u -Recent bone scan negative for malignancy Anxiety -Continue BuSpar 5 mg PO BID Neuropathy -Continue Lyrica 200 mg PO BID DVT prophylaxis -FREEDOM turner and SCDs Code Status -Level I, FULL RESUSCITATION STATUS Total Time Spent: Greater than 30 minutes This includes examination of the patient, discharge planning, medication reconciliation, and communication with other providers. (Purvi Pulido .BRYSON) Discharge Instructions Please refer to the electronic Patient Visit Report (Discharge Instructions) for additional information. (Purvi Pulido PA-C) Follow-Up Pt to f/u with PCP 06/21 Will schedule cardiology f/u (Purvi Pulido PA-C) Additional Copies To Grine, Lizet M.,D.O. Reviewed: Pt Seen/Exam by Me (Bridgette Hernandez, ) History Pt has had no further chest pain. No SOB on her baseline O2 use. Tolerating PO without issue. Agree with HPI/ROS as noted. (Bridgette Hernandez, ) General Appearance: WD/WN, no apparent distress Respiratory: normal breath sounds, no respiratory distress Cardiovascular: normal peripheral pulses, regular rate, rhythm Gastrointestinal: non tender, soft Extremities: non-tender, no pedal edema Neurologic/Psychiatric: alert, normal mood/affect, oriented x 3 Skin Characteristics: normal color, warm/dry (Bridgette Hernandez, ) Assessment/Plan Agree with plan as outlined above CP: possibly related to afib with RVR and now resolved with improved HR Unable to take anticoag due to recent hemorrhage Nuclear stress not quite to optimal HR, but no issues at 70% Insulin regimen is not optimal however this was a recent change by PCP Confirmed by pharmacy and PCP unavailable to discuss Advised pt to discuss with PCP and given appt for tomorrow Pt states she could not afford lantus in the past, but just recently qualified for a PACE card--lantus possibly more affordable now? to discuss with PCP (Bridgette Hernandez, )
[2017-06-20 17:28] VITALS: BP 140/88; PULSE 74; TEMP 36.6; O2SAT 97
--- NOTE | 2017-06-20 21:06 | MYOCARDIAL PERFUSION SCAN ---
ONE-DAY NUCLEAR MEDICINE TECHNETIUM-99M CARDIOLITE MYOCARDIAL PERFUSION SCAN STUDY REQUESTED BY: Dr. Lomeli PRIMARY CARE DOCTOR: Dr. Jeter INDICATION: Chest pain, mildly elevated troponin in the setting of atrial fibrillation with rapid ventricular response. Baseline EKG showed atrial flutter with 4:1 conduction and ventricular rate of 74. She had lateral T-wave inversions in 1, 2 and aVL. Stress EKG; the patient exercised for 4 minutes and 31 seconds on a modified Chauncey protocol achieving 2.3 mets. Her heart rate dahiana from 74 to 107. She had no dynamic ST changes. She had occasional PVCs, but no complex arrhythmias. Her blood pressure dahiana from 120/68 to 132/70. TECHNIQUE: For the stress portion of the study, 28.8 mCi of technetium-99m Cardiolite IV was injected at 13:05 p.m. on 06/20/2017. Fifteen minutes following the injection, imaging of the heart was performed in multiple projections. For the rest portion of the study, 9.9 mCi of technetium-99m Cardiolite was injected IV at 10:30 a.m. One hour following the injection, imaging of the heart was performed in the same projections. STUDY FINDINGS: Rotating raw images were reviewed in detail. There was a uniform breast shadow over the heart in both stress and rest images. There was gut and liver uptake mildly impacting the inferior imaging border of the heart. There was no significant motion artifact. There was no significant extra cardiac pathologic uptake. The short axis, vertical long axis and horizontal long axis images were reviewed in detail. There was normal myocardial perfusion in both the stress and the rest. No significant evidence of ischemia/infarct. LV size was normal with an end-diastolic volume of 53. Calculated ejection fraction was 46% with low to mild global hypokinesis. IMPRESSION: 1. Nondiagnostic exercise myocardial perfusion study due to inability to reach target heart rate. 2. Normal myocardial perfusion at achieved 73% MPHR. No evidence of significant ischemia or infarct. 3. Well rate-controlled atrial flutter without signs of ischemia at achieved maximum heart rate of 107. 4. Poor functional capacity, achieved 2.3 mets. No exercise induced chest pain. 5. Normal left ventricular size and with low normal to mild left ventricular dysfunction, calculated ejection fraction of 46% with no regional wall motion abnormalities. [facility]
== END 2017-06-20 18:11 | disposition home or self-care (01) | DRG 309 ==
LOC: C.EDB 10:46 → C.2E 14:06 → ENRESERV 14:41
PROVIDERS: ADMIT Internal Medicine; ATTEND Internal Medicine
DX: I48.0 Paroxysmal atrial fibrillation (principal); I24.8 Other forms of acute ischemic heart disease; I48.92 Unspecified atrial flutter; I25.10 Atherosclerotic heart disease of native coronary artery without angina pectoris; I10 Essential (primary) hypertension; E78.5 Hyperlipidemia, unspecified; E11.42 Type 2 diabetes mellitus with diabetic polyneuropathy; F41.9 Anxiety disorder, unspecified; J44.9 Chronic obstructive pulmonary disease, unspecified; I25.2 Old myocardial infarction; Z86.79 Personal history of other diseases of the circulatory system; Z95.5 Presence of coronary angioplasty implant and graft; Z85.72 Personal history of non-Hodgkin lymphomas; Z99.81 Dependence on supplemental oxygen; Z79.4 Long term (current) use of insulin; Z79.899 Other long term (current) drug therapy; Z88.8 Allergy status to other drugs, medicaments and biological substances; Z82.49 Family history of ischemic heart disease and other diseases of the circulatory system; Z83.3 Family history of diabetes mellitus

== ENCOUNTER → 2017-06-23 | Outpatient (CLI) | payer OTHER, BC ==
[~2017-06-23] MED LIST changes: +CRDSR60 PO; +INSU0.01 SQ; -NVLG SQ; +OPTIRAY 320 IV PRN
--- NOTE | 2017-06-23 12:33 | DIAGNOSTIC IMAGING REPORT ---
(CHEST) THORAX WITHOUT CT DOSE: 1465.96 mGy.cm HISTORY: Lymphoma LYPHOMA TECHNIQUE: Multiaxial CT images of the chest were performed without contrast. A dose lowering technique was utilized adhering to the principles of ALARA. COMPARISON: 09/09/2015 FINDINGS: Parenchymal scarring left pulmonary apex is stable. 4 mm nodule previous described right upper lobe has resolved. Mild basilar interstitial prominence improved from the prior exam. Mild stable cardiomegaly. No significant mediastinal or hilar adenopathy. Moderate stable cardiomegaly. IMPRESSION: 1. Improved exam with decrease/resolution in parenchymal nodularity 2. No significant adenopathy at the current time. The above report was generated using voice recognition software. It may contain grammatical, syntax or spelling errors. Electronically signed by: Luciano Longoria M.D. 06/23/2017 12:31 PM Dictated Date/Time: 06/23/2017 12:19 PM
--- NOTE | 2017-06-23 12:50 | DIAGNOSTIC IMAGING REPORT ---
CT SCAN OF THE ABDOMEN AND PELVIS WITHOUT IV CONTRAST CLINICAL HISTORY: Lymphoma. COMPARISON STUDY: Abdominal CT dated 09/09/15. TECHNIQUE: CT scan of the abdomen and pelvis is performed from the lung bases to the proximal femora. Images are reviewed in the axial, sagittal, and coronal planes. IV contrast was not administered for this examination as per the referring clinician. Note that the examination was performed in suboptimal fashion without IV contrast. A dose lowering technique was utilized adhering to the principles of ALARA. FINDINGS: Lung bases: The heart is enlarged and without pericardial effusion. The coronary arteries are densely calcified. There is a tiny hiatal hernia. Scarring versus atelectasis is present the lung bases. No airspace consolidation or pleural effusion is seen. Liver: The unenhanced liver is normal in size, contour, and attenuation. There is no intrahepatic biliary ductal dilatation. Gallbladder: Unremarkable. Spleen: Normal in size and attenuation, measuring 11.4 cm in length. Pancreas: The unenhanced pancreas is moderately atrophic and grossly unremarkable. Adrenal glands: Unremarkable. Kidneys: There is markedly asymmetric cortical atrophy of the left kidney as compared to the right. Significant scarring is identified in the left kidney. There is no hydronephrosis. Small nonobstructing left renal calculi are noted. No right renal calculi are seen. 1.7 cm cyst is noted in the left kidney. Abdominal vasculature: The abdominal aorta is normal in course and caliber noting advanced atherosclerotic calcification. Bowel: There is mild to moderate colonic diverticulosis without CT evidence of acute diverticulitis. Mild colonic fecal retention is observed. No bowel obstruction is seen. A fat-containing structure measuring 1.9 cm on the anterior aspect of the ascending colon seen on image #236 likely represents a chronically torsed epiploic appendage. The appendix is not identified and reported surgically absent. Peritoneum: There is no intraperitoneal free air or abdominal ascites. Lymphadenopathy: None. Pelvic viscera: The bladder is normal as visualized. The uterus is surgically absent. No adnexal lesion is seen. Skeletal structures: The skeletal structures are osteopenic. Moderate lumbosacral spondylosis is observed. Large posterior disc osteophyte complexes seen at L3-L4 and L5-S1 likely contribute to central canal stenosis. No lytic or blastic lesions are seen. IMPRESSION: 1. Suboptimal examination without IV contrast. 2. There are no pathologically enlarged lymph nodes identified in the abdomen or pelvis. 3. The spleen is normal in size. 4. There is markedly asymmetric cortical atrophy of the left kidney as compared to the right. Nonobstructing left renal calculi are noted. 5. Mild/moderate colonic diverticulosis without CT evidence of acute diverticulitis. 6. Additional findings as above. Electronically signed by: Eliceo Hart M.D. 06/23/2017 12:49 PM Dictated Date/Time: 06/23/2017 12:43 PM
== END | disposition home or self-care (01) ==
LOC: C.CTS 11:19
PROVIDERS: ATTEND Nurse Practitioner Family
DX: C83.30 Diffuse large B-cell lymphoma, unspecified site (principal); K57.30 Diverticulosis of large intestine without perforation or abscess without bleeding

== ENCOUNTER → 2017-06-23 | Outpatient (CLI) | payer OTHER, BC ==
[~2017-06-23] MED LIST changes: -OPTIRAY 320 IV PRN
[2017-06-23 12:38] LABS: ESTIMATED AVERAGE GLUCOSE 180 mg/dl; HA1C FLAG Normal (Normal)
== END | disposition home or self-care (01) ==
LOC: C.LAB1850 10:53
PROVIDERS: ATTEND Family Medicine
DX: E11.9 Type 2 diabetes mellitus without complications (principal)

== ENCOUNTER → 2017-07-06 | Outpatient (CLI) | payer OTHER, BC ==
[2017-07-06 18:08] LABS: BLOOD UREA NITROGEN 31 mg/dl (7-18); BUN/CREATININE RATIO 19.4 (10-20); CALCIUM 8.7 mg/dl (8.5-10.1); CARBON DIOXIDE 29 mmol/L (21-32); CHLORIDE 102 mmol/L (98-107); CREATININE 1.58 mg/dl (0.60-1.20); GLUCOSE 265 mg/dl (70-99); POTASSIUM 4.2 mmol/L (3.5-5.1); SODIUM 139 mmol/L (136-145)
== END | disposition home or self-care (01) ==
LOC: C.LAB1850 16:17
PROVIDERS: ATTEND Family Medicine
DX: E11.9 Type 2 diabetes mellitus without complications (principal)

== ENCOUNTER 2017-07-29 22:25 | Emergency (ER) | payer OTHER, BC ==
[~2017-07-29] VITALS: Ht 154.9 cm; Wt 87.7 kg
[2017-07-29 22:28] VITALS: TEMP 36.4; Ht 154.9 cm; Wt 87.7 kg
[2017-07-29] MEDS ORDERED: DILTIAZEM HCL 5 MG/ML 5 ML VIAL IV STA ×2 (22:45)
[2017-07-29] MEDS ORDERED: DILTIAZEM BOLUS / DRIP IV STA (22:45)
--- NOTE | 2017-07-29 22:46 | EMERGENCY ROOM VISIT NOTE ---
History Report prepared by Scribe: Shaina Cooley Under the Supervision of: Dr. Arun Marshall M.D. First contact with patient: 22:37 Chief Complaint: IRREGULAR HEARTBEAT Stated Complaint: HIGH BP,HIGH HEART RATE,FEELING LOUSY History of Present Illness The patient is a 77 year old female who presents to the Emergency Room with complaints of an intermittent irregular heartbeat for the past 5 to 6 weeks. She states she has been in and out of atrial fibrillation since . This evening, she began to feel weak, dizzy, and developed chest pain. She checked her vitals and her blood pressure was 160/110 and her BSG was over 400. 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 Iraheta with [facility] and she admits to a history of 4 previous NC's and multiple cardiac stents. She last saw him a few weeks ago and states he placed her on Diltiazem. She believes the Diltiazem has been elevating her blood sugars, but has still been taking it. She used to take Insulin for her history of Diabetes, but states she was placed on Lantus by Dr. Justin of [facility] around [facility]. The patient denies any abdominal pain but admits to diarrhea that seems to be worsened by the Diltiazem. She does not take any daily blood thinners. 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 A total of 10 systems reviewed and were otherwise negative. Past Medical & Surgical Medical Problems: (1) Atrial Fibrillation (2) Atrial fibrillation or flutter (3) C. 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, Unsp Site, Extranodal & Solid Organ (12) Neutropenia (13) Peripheral neuropathy Surgical Problems: (1) Knee Joint Replacement Status Family History Cancer Diabetes mellitus FHx: gallbladder disease Heart disease Hypertension Social History Smoking Status: Never Smoker Alcohol Use: none Drug Use: none Marital Status: Housing Status: lives with significant other Occupation Status: retired Current/Historical Medications Scheduled Ascorbic Acid (Vitamin C), 500 MG PO QAM B Complex W/ C (Vitamin B Complex-C), 1 CAP PO QAM Buspirone HCl (Buspirone HCl), 5 MG PO BID Calcium Carbonate-Vitamin D (Calcium), 1 TAB PO BID Carvedilol (Coreg), 3.125 MG PO BID Cholecalciferol (Vitamin D-1000), 2,000 UNITS PO QAM Diltiazem Hcl (Diltiazem Hcl Er), 60 MG PO BID Folic Acid (Folic Acid), 800 MCG PO DAILY Insulin Glargine (Lantus Solostar), 25 UNITS SQ QPM Magnesium Oxide (Mg Supplement (Magnesium Oxide), 400 MG PO DAILY Multivitamin (Multivitamin), 1 TAB PO QAM Pregabalin (Lyrica), 200 MG PO BID Allergies Coded Allergies: Eptifibatide (Verified Allergy, Severe, ANAPHYLAXIS, 04/25/17) PT STATED SHE CODED TWICE WITH MED Wasp (Verified Allergy, Severe, WASP VENOM PROTEIN-ANAPHYLAXIS, 04/25/17) Azithromycin (Verified Allergy, Intermediate, palpatations, 04/25/17) Atorvastatin (Verified Allergy, Unknown, MUSCLE PAIN, 04/25/17) Ezetimibe (Verified Allergy, Unknown, MUSCLE PAIN, 04/25/17) Simvastatin (Verified Allergy, Unknown, MUSCLE PAIN, 04/25/17) HMG-CoA-R Inhibitors (Verified Adverse Reaction, Intermediate, STATINS - NAUSEA/RASH; TOLERATES CRESTOR, 04/25/17) Warfarin (Verified Adverse Reaction, Intermediate, EXTREME BLEEDING TIMES , 04/25/17) Codeine (Verified Adverse Reaction, Mild, VOMITING, 04/25/17) Gemfibrozil (Verified Adverse Reaction, Mild, NAUSEA, 04/25/17) Meperidine (Verified Adverse Reaction, Mild, VOMITING, 04/25/17) Ondansetron (Verified Adverse Reaction, Mild, vomiting, 04/25/17) Cortisone (Verified Adverse Reaction, Unknown, INCREASES SUGAR AND VOMITING?, 04/25/17) Hydralazine (Verified Adverse Reaction, Unknown, VOMITING, 04/25/17) Ibuprofen (Verified Adverse Reaction, Unknown, VOMITING AND DIARRHEA, 04/25) Iodine (Verified Adverse Reaction, Unknown, SHELLFISH - VOMITING, 04/25/17) Shellfish (Verified Adverse Reaction, Unknown, VOMITING, 04/25/17) Sulfa Antibiotics (Verified Adverse Reaction, Unknown, VOMITING, 04/25/17) Physical Exam Vital Signs Date Time Temp Pulse Resp B/P (MAP) Pulse Ox O2 Delivery O2 Flow Rate FiO2 07/29/17 23:50 65 18 110/55 95 Room Air 07/29/17 23:37 108 20 118/85 96 Room Air 07/29/17 23:27 101 20 116/66 96 Room Air 07/29/17 23:13 95 Room Air 07/29/17 23:01 118 07/29/17 22:28 36.4 123 22 195/117 92 Room Air Physical Exam GENERAL: Patient is a healthy-appearing well-nourished 77 year old female HEAD: Normocephalic atraumatic EYES: Ocular movements intact pupils equal and react to light OROPHARYNX mucous membranes are moist no exudates present no erythema or edema present NECK: Supple no nuchal rigidity CHEST: Good equal expansion LUNGS: Clear and equal to auscultation CARDIAC: Normal S1 and S2 ABDOMEN: Soft nontender no guarding BACK: No CVA tenderness EXTREMITIES: No pain upon palpation normal muscle strength in all groups no clubbing cyanosis or edema NEURO: Patient is following commands and answering questions appropriately. Alert and oriented x3 Cranial Nerves 2-12 grossly intact Medical Decision & Procedures ER Provider Diagnostic Interpretation: Radiology results as stated below per my review and interpretation: CHEST X-RAY, 1 VIEW Enlarged heart. No evidence of pneumonia. Port in place. No pneumothorax. Laboratory Results 07/29/17 23:00 Red Blood Count 4.26, Mean Corpuscular Volume 92.7, Mean Corpuscular Hemoglobin 31.2, Mean Corpuscular Hemoglobin Concent 33.7, Mean Platelet Volume 12.0, Neutrophils (%) (Auto) 66.6, Lymphocytes (%) (Auto) 21.6, Monocytes (%) (Auto) 7.8, Eosinophils (%) (Auto) 1.7, Basophils (%) (Auto) 0.4, Neutrophils # (Auto) 3.43, Lymphocytes # (Auto) 1.11, Monocytes # (Auto) 0.40, Eosinophils # (Auto) 0.09, Basophils # (Auto) 0.02 07/29/17 23:00 Test 07/29/17 00:00 07/29/17 23:00 Influenza Type A Antigen Neg for Influ A (NEG) Influenza Type B Antigen Neg for Influ B (NEG) White Blood Count 5.15 K/uL (4.8-10.8) Red Blood Count 4.26 M/uL (4.2-5.4) Hemoglobin 13.3 g/dL (12.0-16.0) Hematocrit 39.5 % (37-47) Mean Corpuscular Volume 92.7 fL (80-100) Mean Corpuscular Hemoglobin 31.2 pg (25-34) Mean Corpuscular Hemoglobin Concent 33.7 g/dl (32-36) Platelet Count 144 K/uL (130-400) Mean Platelet Volume 12.0 fL (7.4-10.4) Neutrophils (%) (Auto) 66.6 % Lymphocytes (%) (Auto) 21.6 % Monocytes (%) (Auto) 7.8 % Eosinophils (%) (Auto) 1.7 % Basophils (%) (Auto) 0.4 % Neutrophils # (Auto) 3.43 K/uL (1.4-6.5) Lymphocytes # (Auto) 1.11 K/uL (1.2-3.4) Monocytes # (Auto) 0.40 K/uL (0.11-0.59) Eosinophils # (Auto) 0.09 K/uL (0-0.5) Basophils # (Auto) 0.02 K/uL (0-0.2) RDW Standard Deviation 49.4 fL (36.4-46.3) RDW Coefficient of Variation 14.7 % (11.5-14.5) Immature Granulocyte % (Auto) 1.9 % Immature Granulocyte # (Auto) 0.10 K/uL (0.00-0.02) Prothrombin Time 10.0 SECONDS (9.0-12.0) Prothromb Time International Ratio 1.0 (0.9-1.1) Activated Partial Thromboplast Time 27.9 SECONDS (21.0-31.0) Partial Thromboplastin Ratio 1.1 Anion Gap 12.0 mmol/L (3-11) Est Creatinine Clear Calc Drug Dose 34.4 ml/min Estimated GFR () 42.2 Estimated GFR (Non- 36.4 BUN/Creatinine Ratio 18.5 (10-20) Calcium Level 8.4 mg/dl (8.5-10.1) Total Bilirubin 0.3 mg/dl (0.2-1) Direct Bilirubin mg/dl (0-0.2) Aspartate Amino Transf (AST/SGOT) 32 U/L (15-37) Alanine Aminotransferase (ALT/SGPT) 42 U/L (12-78) Alkaline Phosphatase 84 U/L (45-117) Total Creatine Kinase 58 U/L (26-192) Creatine Kinase MB 1.3 ng/ml (0.5-3.6) Creatine Kinase MB Ratio 2.2 (0-3.0) Troponin I 0.020 ng/ml (0-0.045) Total Protein 6.8 gm/dl (6.4-8.2) Albumin 3.2 gm/dl (3.4-5.0) Lipase 455 U/L (73-393) Beta-Hydroxybutyric Acid mg/dL (0.2-2.81) Labs reviewed by ED physician. Medications Administered Medications (Trade) Dose Ordered Sig/Carmen Route Start Time Stop Time Status Last Admin Dose Admin Diltiazem HCl (Cardizem Inj) 22 mg NOW STAT IV 07/29/17 22:45 07/29/17 22:51 DC 07/29/17 23:23 22 MG Diltiazem HCl (Cardizem Inj) 30 mg NOW STAT IV 07/29/17 22:45 07/29/17 22:51 DC 07/29/17 23:46 30 MG Insulin Human Regular (novoLIN-R U-100 PER UNIT) 10 units NOW STAT IV 07/30/17 00:06 07/30/17 00:07 DC 07/30/17 00:26 10 UNITS Sodium Chloride 500 ml @ 999 mls/hr Q31M STAT IV 07/30/17 00:07 07/30/17 00:37 DC 07/30/17 00:26 999 MLS/HR ECG Indication: palpitations (atrial fibrillation) Rate (beats per minute): 115 Rhythm: atrial fibrillation (with RVR) Findings: ST depression (Anterior, lateral), no acute ischemic change, no ectopy ED Course 2238: Past medical records reviewed. The patient was evaluated in room B2. A complete history and physical examination was performed. 2245: Cardizem 30 mg IV, Cardizem 22 mg IV, Cardizem Bolus/Drip 1 ea IV. 2299: Diltiazem HCl 125 mg/Dextrose 125 ml @ 0 mls/hr IV. 2349: I reevaluated the patient. She is feeling well and resting comfortably. Medical Decision Prior records/ancillary studies reviewed. Triage Nursing notes reviewed. The patient's history was concerning for chest pain. Differential diagnosis: Etiologies such as cardiac ischemia, aortic dissection, pulmonary embolism, pneumonia, pneumothorax, musculoskeletal, infections, pericarditis, myocarditis , esophageal rupture, gastrointestinal, as well as others were entertained. This is a 77-year-old female that presents emergency department complaining of a fibrillation with RVR. I will note that the patient is on diltiazem for her RVR however she has not been taking the medication believing that it has been causing her sugars to be elevated. After further questioning the patient I suspect the patient sugars are elevated because she stopped taking her short acting insulin after starting her long acting insulin. I had a lengthy conversation with the patient that both insulins are normally needed. The patient agreed to continue taking her diltiazem. She was given them here in the emergency department and 2 boluses. Repeat examination revealed much improvement the patient's symptoms. I do believe that the patient is well enough at this point to be discharged home as this is what she wants. She is going to follow-up with her primary care physician on Tuesday. Impression Primary Impression: Hyperglycemia Additional Impression: Atrial fibrillation Scribe Attestation The scribe's documentation has been prepared under my direction and personally reviewed by me in its entirety. I confirm that the note above accurately reflects all work, treatment, procedures, and medical decision making performed by me. Departure Information Dispostion Home / Self-Care Referrals Lizet Jeter D.O. (PCP) Patient Instructions My [facility] Problem Qualifiers Additional Impression: Atrial fibrillation Atrial fibrillation type: unspecified Qualified Codes: I48.91 - Unspecified atrial fibrillation
[2017-07-29] MEDS ORDERED: DILTIAZEM HCL INJ 125 MG in DEXTROSE 5% 100ML IV PRN (23:00)
[2017-07-29 23:13] VITALS: O2SAT 95
[2017-07-29 23:13] LABS: BASO % 0.4 %; BASO ABS # 0.02 K/uL (0-0.2); EOS % 1.7 %; EOS ABS # 0.09 K/uL (0-0.5); HEMATOCRIT 39.5 % (37-47); HEMOGLOBIN 13.3 g/dL (12.0-16.0); LYMPH % 21.6 %; LYMPH ABS # 1.11 K/uL (1.2-3.4); MEAN CELL VOLUME 92.7 fL (80-100); MEAN CORPUSCULAR HEMOGLOBIN 31.2 pg (25-34); MEAN CORPUSCULAR HGB CONC 33.7 g/dl (32-36); MONO % 7.8 %; NEUT % 66.6 %; NEUT ABS # 3.43 K/uL (1.4-6.5); PLATELET COUNT 144 K/uL (130-400); RED CELL DISTRIBUTION WIDTH CV 14.7 % (11.5-14.5); RED CELL DISTRIBUTION WIDTH SD 49.4 fL (36.4-46.3); WHITE BLOOD COUNT 5.15 K/uL (4.8-10.8)
[2017-07-29 23:24] LABS: PTT PATIENT 27.9 SECONDS (21.0-31.0)
[2017-07-29] MEDS ORDERED: DILT40TA PO (23:50)
[2017-07-29] MEDS ORDERED: DILT60CA PO (23:51)
[2017-07-29] MEDS ORDERED: INSDGIPEN SQ (23:54)
[2017-07-29] MEDS ORDERED: CARV3.122 PO (23:56)
[2017-07-30 00:05] LABS: ALBUMIN 3.2 gm/dl (3.4-5.0); CALCIUM 8.4 mg/dl (8.5-10.1); CKMB 1.3 ng/ml (0.5-3.6); CREATININE 1.4 mg/dl (0.60-1.20); POTASSIUM 4.4 mmol/L (3.5-5.1); TOTAL PROTEIN 6.8 gm/dl (6.4-8.2)
[2017-07-30] MEDS ORDERED: NovoLIN-R INSULIN PER UNIT CHARGE IV STA (00:06)
[2017-07-30] MEDS ORDERED: SODIUM CHLORIDE 0.9% 500ML 500 ML IV STA (00:07)
[2017-07-30 00:16] LABS: INFLUENZA B ANTIGEN Neg for Influ B (NEG)
[2017-07-30 01:05] LABS: INFLUENZA A PCR Neg for Influ A (NEG); INFLUENZA B PCR Neg for Influ B (NEG)
[2017-07-30 01:15] VITALS: BP 123/65; PULSE 84; O2SAT 94
--- NOTE | 2017-07-30 06:37 | DIAGNOSTIC IMAGING REPORT ---
CHEST ONE VIEW PORTABLE CLINICAL HISTORY: Atypical chest pain. Hypertension. COMPARISON STUDY: 06/18/2017 FINDINGS: The heart remains enlarged. There is a left subclavian A-Port catheter present. Postsurgical changes are present within the left upper lobe. There is persistent prominence of the main pulmonary artery segment. There is mild interstitial thickening but no evidence of overt failure. There is no lobar consolidation. There are no significant pleural effusions.[ IMPRESSION: Stable findings. Persistent cardiomegaly. No active disease in the chest. Electronically signed by: Olaf Muir M.D. 07/30/2017 6:36 AM Dictated Date/Time: 07/30/2017 6:34 AM
== END 2017-07-30 01:25 | disposition home or self-care (01) ==
LOC: C.EDB 22:27
DX: E11.65 Type 2 diabetes mellitus with hyperglycemia (principal); I48.91 Unspecified atrial fibrillation; I10 Essential (primary) hypertension; E78.5 Hyperlipidemia, unspecified; Z85.72 Personal history of non-Hodgkin lymphomas; D70.9 Neutropenia, unspecified; E11.40 Type 2 diabetes mellitus with diabetic neuropathy, unspecified; Z80.9 Family history of malignant neoplasm, unspecified; Z83.3 Family history of diabetes mellitus; Z83.79 Family history of other diseases of the digestive system; Z82.49 Family history of ischemic heart disease and other diseases of the circulatory system; Z79.4 Long term (current) use of insulin; Z79.899 Other long term (current) drug therapy; Z96.659 Presence of unspecified artificial knee joint

== ENCOUNTER 2017-08-08 14:05 | Observation (INO) | payer OTHER, BC ==
[~2017-08-08] VITALS: Ht 162.6 cm; Wt 86.8 kg
[~2017-08-08 14:05] MED LIST changes: +CARV3.122 PO; -CARV6.25 PO; -CRDSR60 PO; +DILT60CA PO; +INSDGIPEN SQ; -INSU0.01 SQ; -INSU1INJ16 SQ; -NVLRPUC SQ
[2017-08-08] MEDS ORDERED: ASPIRIN 81 MG CHEW PO STA (14:25)
[2017-08-08] MEDS ORDERED: ONDANSETRON INJ 2 MG/ML 2 ML VIAL IV STA (14:25)
[2017-08-08] MEDS ORDERED: SODIUM CHLORIDE 0.9% 1000ML 1,000 ML IV STA (14:25)
[2017-08-08 15:07] LABS: BASO % 0.2 %; BASO ABS # 0.01 K/uL (0-0.2); EOS % 1.5 %; EOS ABS # 0.09 K/uL (0-0.5); HEMOGLOBIN 13.1 g/dL (12.0-16.0); IG# 0.04 K/uL (0.00-0.02); LYMPH % 18.1 %; LYMPH ABS # 1.07 K/uL (1.2-3.4); MEAN CELL VOLUME 93.5 fL (80-100); MEAN CORPUSCULAR HEMOGLOBIN 30.6 pg (25-34); MEAN CORPUSCULAR HGB CONC 32.8 g/dl (32-36); MEAN PLATELET VOLUME 11.7 fL (7.4-10.4); MONO % 8.4 %; NEUT % 71.1 %; NEUT ABS # 4.21 K/uL (1.4-6.5); PLATELET COUNT 138 K/uL (130-400); RED CELL DISTRIBUTION WIDTH CV 15.3 % (11.5-14.5); WHITE BLOOD COUNT 5.92 K/uL (4.8-10.8)
[2017-08-08] MEDS ORDERED: PROMETHAZINE HCL INJ 25 MG/ML 1 ML VIAL IV STA (15:09)
--- NOTE | 2017-08-08 15:13 | DIAGNOSTIC IMAGING REPORT ---
CHEST ONE VIEW PORTABLE HISTORY: 77 years-old Female EVALUATE WEAKNESS acute weakness COMPARISON: Chest radiograph 07/29/2017, chest CT 06/23/2017 TECHNIQUE: Portable AP view of the chest FINDINGS: Cardiac silhouette is again enlarged. Left subclavian [id number] catheter appears unchanged. Atherosclerosis of the aorta. Postoperative changes of the left upper lobe redemonstrated with adjacent pleural parenchymal scarring. There is no pneumothorax, pleural effusion, overt pulmonary edema or lobar airspace consolidation. Chronic left basilar opacities are again seen suggesting areas of scarring/atelectasis. Bones of the chest appear grossly intact. IMPRESSION: No acute process. The above report was generated using voice recognition software. It may contain grammatical, syntax or spelling errors. Electronically signed by: Dipak Tapia M.D. 08/08/2017 3:12 PM Dictated Date/Time: 08/08/2017 3:10 PM
[2017-08-08 15:28] LABS: ALBUMIN 3.3 gm/dl (3.4-5.0); ALT/SGPT 47 U/L (12-78); AST/SGOT 47 U/L (15-37); BLOOD UREA NITROGEN 30 mg/dl (7-18); CALCIUM 8.7 mg/dl (8.5-10.1); CARBON DIOXIDE 28 mmol/L (21-32); CREATININE 1.27 mg/dl (0.60-1.20); GLUCOSE 193 mg/dl (70-99); POTASSIUM 4.2 mmol/L (3.5-5.1); SODIUM 139 mmol/L (136-145)
[2017-08-08 15:38] LABS: ALKALINE PHOSPHATASE 69 U/L (45-117); TOTAL PROTEIN 6.5 gm/dl (6.4-8.2)
[2017-08-08] MEDS ORDERED: MECLIZINE HCL 25 MG TAB PO STA (15:42)
--- NOTE | 2017-08-08 16:03 | DIAGNOSTIC IMAGING REPORT ---
HEAD WITHOUT CONTRAST (CT) CLINICAL HISTORY: 77 years-old Female with EVALUATE WEAKNESS. Acute weakness. History of prior craniotomy with subdural hematoma evacuation TECHNIQUE: Multiple axial CT images of the head were obtained without contrast. A dose lowering technique was utilized adhering to the principles of ALARA. CT DOSE: 823.94 mGycm COMPARISON: Head CT 02/28/2017. FINDINGS: Postoperative changes from prior right calvarial craniotomy again noted involving the parietal bone. Linear area of partially calcified increased attenuation is again seen along the right cerebral convexity adjacent to the craniotomy site measuring 3 mm. This has decreased in size from prior study where it previously measured 5 mm. There is moderate atrophy. Senescent calcifications of the lentiform nuclei are noted. No hydrocephalus or midline shift. No intra-axial hemorrhage identified. No territorial infarction. Chronic microvascular ischemic changes. Moderate mucoperiosteal thickening of the left maxillary antrum, partially imaged. Mild mucosal thickening is seen throughout the ethmoid air cells. Mastoid air cells and middle ear cavities are clear. Soft tissues are unremarkable. IMPRESSION: 1. Postoperative changes from prior right calvarial craniotomy. Decreased size of partially calcified increased attenuation along the right cerebral convexity subdural space suggesting postsurgical changes related to subdural hematoma evacuation. No midline shift. 2. No evidence of territorial infarction. The above report was generated using voice recognition software. It may contain grammatical, syntax or spelling errors. Electronically signed by: Dipak Tapia M.D. 08/08/2017 4:02 PM Dictated Date/Time: 08/08/2017 3:56 PM
[2017-08-08] MEDS ORDERED: PROMETHAZINE HCL INJ 12.5 MG in SODIUM CHLORIDE 0.9% 50ML 50 ML IV ONE (16:15)
[2017-08-08] MEDS ORDERED: DIAZEPAM INJ 5 MG/ML 2 ML CARP IV STA (16:21)
[2017-08-08] MEDS ORDERED: NITROGLYCERIN 2% OINTMENT 30GM TUBE EXT SCH (17:15)
--- NOTE | 2017-08-08 18:41 | History and Physical ---
History & Physical Date & Time of Service: Aug 08, 2017 at 18:19 Chief Complaint: A FIB Primary Care Physician: Lizet Jeter D.O. History of Present Illness Source: patient, family 77yo female with history of a. fib/flutter who presented with dizziness/ vertigo. She was at the eye doctor's today for a visit for glaucoma. At that visit she became acutely vertiginous. She was sitting in a wheelchair in the lobby when the vertigo started abruptly. She had nausea and emesis. This occurred at about 1330 today. The vertigo improved while awaiting admission in the ER. Denies any visual field cuts but had some sort of visual change/loss during the episode. The vision slowly improved by the time she was in our ER. She had vertigo associated with her SDH last spring 2016 but doesn't suffer from chronic vertigo. She also had chest pressure when she was vomiting at the eye doctor office. The chest pressure improved in the ER while awaiting admission. The pain today was different and was "not as bad" as the pain she has had with prior MIs. She reports chronic fatigue, chronic dizziness/lightheadedness, occasional chest pressure at home. She is followed by Dr. Iraheta in cardiology and saw him within the last 2 weeks. Was placed on diltiazem for a. fib/flutter at that time. She uses NC O2 during the day "as needed" and CPAP at HS for JANICE. Past Medical/Surgical History PMH: 1. a. fib/flutter 2. h/o c. diff colitis 3. T2DM 4. h/o Diffuse large B-cell lymphoma of extranodal site - 2014 5. CAD s/p NSTEMI 6. HTN 7. hyperlipidemia 8. Peripheral neuropathy 9. h/o subdural hematoma in the setting of a fall and anticoagulant use 10. JANICE on CPAP 11. CKD stage 3 PSH: 1. Knee Joint Replacement b/l 2. s/p VATs for lymphoma 3. port placement 4. SDH evacuation 5. 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) Immunizations History of Influenza Vaccine: Yes Influenza Vaccine Date: Jul 20, 2013 History of Tetanus Vaccine?: Yes Tetanus Immunization Date: Sep 18, 2007 History of Pneumococcal: Yes Pneumococcal Date: Apr 18, 1998 History of Hepatitis B Vaccine: No Multi-Drug Resistant Organisms History of MDRO: No Allergies Coded Allergies: Eptifibatide (Verified Allergy, Severe, ANAPHYLAXIS, 08/08/17) PT STATED SHE CODED TWICE WITH MED Wasp (Verified Allergy, Severe, WASP VENOM PROTEIN-ANAPHYLAXIS, 08/08/17) Azithromycin (Verified Allergy, Intermediate, palpatations, 08/08/17) Atorvastatin (Verified Allergy, Unknown, MUSCLE PAIN, 08/08/17) Ezetimibe (Verified Allergy, Unknown, MUSCLE PAIN, 08/08/17) Simvastatin (Verified Allergy, Unknown, MUSCLE PAIN, 08/08/17) HMG-CoA-R Inhibitors (Verified Adverse Reaction, Intermediate, STATINS - NAUSEA/RASH; TOLERATES CRESTOR, 08/08/17) Warfarin (Verified Adverse Reaction, Intermediate, EXTREME BLEEDING TIMES , 08/08/17) Codeine (Verified Adverse Reaction, Mild, VOMITING, 08/08/17) Gemfibrozil (Verified Adverse Reaction, Mild, NAUSEA, 08/08/17) Meperidine (Verified Adverse Reaction, Mild, VOMITING, 08/08/17) Ondansetron (Verified Adverse Reaction, Mild, vomiting, 08/08/17) Cortisone (Verified Adverse Reaction, Unknown, INCREASES SUGAR AND VOMITING?, 08/08/17) Hydralazine (Verified Adverse Reaction, Unknown, VOMITING, 08/08/17) Ibuprofen (Verified Adverse Reaction, Unknown, VOMITING AND DIARRHEA, 08/08) Iodine (Verified Adverse Reaction, Unknown, SHELLFISH - VOMITING, 08/08/17) Shellfish (Verified Adverse Reaction, Unknown, VOMITING, 08/08/17) Sulfa Antibiotics (Verified Adverse Reaction, Unknown, VOMITING, 08/08/17) Home Medications Scheduled Ascorbic Acid (Vitamin C), 500 MG PO QAM B Complex W/ C (Vitamin B Complex-C), 1 CAP PO QAM Buspirone HCl (Buspirone HCl), 5 MG PO BID Calcium Carbonate-Vitamin D (Calcium), 1 TAB PO BID Carvedilol (Coreg), 3.125 MG PO BID Cholecalciferol (Vitamin D-1000), 2,000 UNITS PO QAM Diltiazem Hcl (Diltiazem Hcl Er), 120 MG PO BID Folic Acid (Folic Acid), 800 MCG PO DAILY Insulin Glargine (Lantus Solostar), 20 UNITS SQ BID Magnesium Oxide (Mg Supplement (Magnesium Oxide), 400 MG PO DAILY Multivitamin (Multivitamin), 1 TAB PO QAM Pregabalin (Lyrica), 200 MG PO BID Review of Systems Constitutional: + fatigue, No fever, No chills, No weight loss Eyes: + worsening of vision (today during the vertigo spell but no visual field deficits), No diplopia ENT: + sore throat (chronic, x 2 years), No nasal symptoms Respiratory: + dyspnea on exertion (chronic ), No cough, No sputum, No wheezing , No dyspnea at rest Cardiovascular: + chest pain (during episodes of emesis today), + edema (left, chronic ), + palpitations Abdomen: + pain (right groin - both rest and with walking x 1 month ), + nausea , + vomiting, No diarrhea, No constipation, No GI bleeding Musculoskeletal: No joint pain, No muscle pain Genitourinary - Female: No dysuria, No hematuria Neurologic: + numbness/tingling (feet - chronic ), + problem reported (uses can to walk) Psychiatric: No depression symptoms, No anxiety Endocrine: + fatigue, + problem reported (cold intolerance - 6 weeks worth) Hematologic / Lymphatic: No abnormal bleeding/bruising Integumentary: No rash Physical Exam Vital Signs Date Time Temp Pulse Resp B/P (MAP) Pulse Ox O2 Delivery O2 Flow Rate FiO2 08/08/17 15:57 60 18 166/83 95 Nasal Cannula 2.0 08/08/17 15:03 Nasal Cannula 2.0 08/08/17 14:24 61 08/08/17 14:18 Room Air 08/08/17 14:11 36.3 61 22 151/80 96 Room Air General Appearance: no apparent distress, + obese Head: normocephalic Eyes: PERRL, sclerae normal, + pertinent finding (no nystagmus) ENT: TMs normal, pharynx normal Neck: supple, no adenopathy, thyroid normal, no JVD Respiratory/Chest: lungs clear, no respiratory distress, no accessory muscle use Cardiovascular: no gallop, normal peripheral pulses, + systolic murmur (1/6 XAVI LSB), + irregularly irregular Abdomen/GI: normal bowel sounds, non tender, soft, no organomegaly Back: normal inspection Extremities/Musculoskelatal: + pedal edema (trace-1+ b/l ) Neurologic/Psych: no motor/sensory deficits, alert, normal mood/affect, normal reflexes, oriented x 3, + pertinent finding (visual edmonds full by direct confrontation in all quadrants; EOMI; no facial droop; finger/nose/finger maneuver without dysmetria) Skin: no rash, + pertinent finding (port, left chest - clean ) Diagnostics Laboratory Results Results Past 24 Hours Test 08/08/17 14:45 Range/Units White Blood Count 5.92 4.8-10.8 K/uL Red Blood Count 4.28 4.2-5.4 M/uL Hemoglobin 13.1 12.0-16.0 g/dL Hematocrit 40.0 37-47 % Mean Corpuscular Volume 93.5 80-100 fL Mean Corpuscular Hemoglobin 30.6 25-34 pg Mean Corpuscular Hemoglobin Concent 32.8 32-36 g/dl Platelet Count 138 130-400 K/uL Mean Platelet Volume 11.7 7.4-10.4 fL Neutrophils (%) (Auto) 71.1 % Lymphocytes (%) (Auto) 18.1 % Monocytes (%) (Auto) 8.4 % Eosinophils (%) (Auto) 1.5 % Basophils (%) (Auto) 0.2 % Neutrophils # (Auto) 4.21 1.4-6.5 K/uL Lymphocytes # (Auto) 1.07 1.2-3.4 K/uL Monocytes # (Auto) 0.50 0.11-0.59 K/uL Eosinophils # (Auto) 0.09 0-0.5 K/uL Basophils # (Auto) 0.01 0-0.2 K/uL RDW Standard Deviation 51.0 36.4-46.3 fL RDW Coefficient of Variation 15.3 11.5-14.5 % Immature Granulocyte % (Auto) 0.7 % Immature Granulocyte # (Auto) 0.04 0.00-0.02 K/uL Sodium Level 139 136-145 mmol/L Potassium Level 4.2 3.5-5.1 mmol/L Chloride Level 105 98-107 mmol/L Carbon Dioxide Level 28 21-32 mmol/L Anion Gap 6.0 3-11 mmol/L Blood Urea Nitrogen 30 7-18 mg/dl Creatinine 1.27 0.60-1.20 mg/dl Est Creatinine Clear Calc Drug Dose 40.1 ml/min Estimated GFR () 47.5 Estimated GFR (Non- 41.0 BUN/Creatinine Ratio 23.8 10-20 Random Glucose 193 70-99 mg/dl Calcium Level 8.7 8.5-10.1 mg/dl Total Bilirubin 0.5 0.2-1 mg/dl Direct Bilirubin 0.1 0-0.2 mg/dl Aspartate Amino Transf (AST/SGOT) 47 15-37 U/L Alanine Aminotransferase (ALT/SGPT) 47 12-78 U/L Alkaline Phosphatase 69 45-117 U/L Troponin I < 0.015 0-0.045 ng/ml Total Protein 6.5 6.4-8.2 gm/dl Albumin 3.3 3.4-5.0 gm/dl Thyroid Stimulating Hormone (TSH) 9.310 0.300-4.500 uIu/ml Diagnostic Radiology CT head - IMPRESSION: 1. Postoperative changes from prior right calvarial craniotomy. Decreased size of partially calcified increased attenuation along the right cerebral convexity subdural space suggesting postsurgical changes related to subdural hematoma evacuation. No midline shift. 2. No evidence of territorial infarction. cxr - FINDINGS: Cardiac silhouette is again enlarged. Left subclavian [id number] catheter appears unchanged. Atherosclerosis of the aorta. Postoperative changes of the left upper lobe redemonstrated with adjacent pleural parenchymal scarring. There is no pneumothorax, pleural effusion, overt pulmonary edema or lobar airspace consolidation. Chronic left basilar opacities are again seen suggesting areas of scarring/atelectasis. Bones of the chest appear grossly intact. IMPRESSION: No acute process. EKG EKG - my reading - a. flutter with variable block, ST segment depressions I and AVL and lateral chest leads - NO CHANGE FROM PRIOR EKG Impression Assessment and Plan 77yo female with multiple medical problems including a fib/flutter, h/o SDH, T2DM, JANICE, CAD - presenting with acute vertigo that began at a local eye physician's office. This was associated with some form of visual disturbance. She subsequently had emesis followed by chest pressure. All symptoms were resolved by the time of my ER assessment. 1. acute vertigo - now resolved. I am concerned that she had associated visual disturbance with this. Given her a fib/flutter and not being on anticoagulation any longer due to her prior subdural hematoma she is at high risk of stroke vs TIA. She could have had a posterior circulation event. She has not had any prodromal viral symptoms to suggest a viral labrynthitis. Will perform an MRI of the head to exclude stroke. Place on telemetry. PT, OT evals. Consider additional stroke work-up including carotid duplex or CTA neck. Defer on echo as she just had such a few months prior. Antivert prn for any recurrent symptoms. 2. chest pressure - she has ischemic changes on EKG but these are unchanged from prior EKGs. Initial troponin is negative. During her 05/2017 admission she had a negative exercise stress test although she did not hit target HR. With that said her symptoms today were in the setting of emesis and her pain was likely from the vomiting. Plan for telemetry, serial cardiac enzymes, and repeat EKG if needed. Consider cardiology consult only if convincing evidence of ischemia. She hasn't been taking aspirin at home (presumably due to prior SDH) but aspirin WAS given in ER today. Cont BB; apparently she is statin intolerant. 3. T2DM - cont lantus; add novolog for meal coverage. 4. a. fib/flutter - she has had trouble with this as of late with rapid rates. She just had CCB added in the office by Dr. Iraheta. Cont this and her beta suraj. Adjust meds as needed. 5. JANICE - may use home CPAP or hospital's. 6. h/o Diffuse large B-cell lymphoma of extranodal site - 2014 - noted. CBC is stable. Has chronic fatigue but this is likely related to other health issues. 7. CKD stage 3 - creatinine is at baseline. 8. abnormal TSH - check a free T4 in the AM. With her chronic fatigue, if the TSH remains abnormal as an outpatient, consider replacement. 9. DVT proph - SCDs. 10. HTN - continue home meds. PT, OT evals tomorrow to ensure safe to ambulate and return home Level of Care Telemetry Resuscitation Status DO NOT RESUSCITATE VTE Prophylaxis Risk Level: Moderate Given or contraindicated: SCD's Note patient to be placed on observation status - time 70 min
[2017-08-08] MEDS ORDERED: MECLIZINE HCL 12.5 MG TAB PO PRN (19:15)
[2017-08-08] MEDS ORDERED: DIAZEPAM 2MG TAB PO ONE (19:15)
[2017-08-08] MEDS ORDERED: ALUMINUM/MAGNESIUM/SIMETH (MAALOX MAX) 30 ML UDC PO PRN (19:15)
[2017-08-08] MEDS ORDERED: MAGNESIUM HYDROXIDE SUSP 30 ML UDC PO PRN (19:15)
[2017-08-08] MEDS ORDERED: ACETAMINOPHEN 325 MG TAB PO PRN (19:15)
[2017-08-08] MEDS ORDERED: ONDANSETRON INJ 2 MG/ML 2 ML VIAL IV PRN (19:15)
--- NOTE | 2017-08-08 19:23 | EMERGENCY ROOM VISIT NOTE ---
History Report prepared by Christian: Iva Rubio Under the Supervision of: Jerzy NewsomeO. First contact with patient: 14:15 Chief Complaint: CARDIAC ASSESSMENT Stated Complaint: A FIB History of Present Illness The patient is a 77 year old female who presents to the Emergency Room with complaints of persistent dizziness that began earlier today. The patient states that she was at her doctors office, when she began feeling dizzy and nauseous. She notes that she has been experiencing chest pain, describing it as chest tightness. The patient states that she has been in atrial fibrillation since . She notes that this morning her blood pressure was really low but her AFib was 130. She states a history of several heart attacks, noting her pain does not feel like her previous heart attacks. The patient states a history of blood clots. She denies having a pacemaker in place. Pt denies headache, change in vision, fevers, diarrhea, pain with urination, and melena. Dizziness is worse with changing positions. No weakness or numbness in arms or legs. Source of History: patient Onset: earlier today Quality: other (dizziness) Timing: other (persistent) Associated Symptoms: + chest pain, + nausea, No headache, No SOB, No vomiting, No melena, No diarrhea, No urinary symptoms Review of Systems See HPI for pertinent positives & negatives. A total of 10 systems reviewed and were otherwise negative. Past Medical & Surgical Medical Problems: (1) Atrial Fibrillation (2) Atrial fibrillation or flutter (3) C. 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, Unsp Site, Extranodal & Solid Organ (13) Neutropenia (14) Peripheral neuropathy (15) Vertigo Surgical Problems: (1) Knee Joint Replacement Status Family History Cancer Diabetes mellitus FHx: gallbladder disease Heart disease Hypertension Social History Smoking Status: Never Smoker Alcohol Use: none Drug Use: none Marital Status: Housing Status: lives with significant other Occupation Status: retired Current/Historical Medications Scheduled Ascorbic Acid (Vitamin C), 500 MG PO QAM B Complex W/ C (Vitamin B Complex-C), 1 CAP PO QAM Buspirone HCl (Buspirone HCl), 5 MG PO BID Calcium Carbonate-Vitamin D (Calcium), 1 TAB PO BID Carvedilol (Coreg), 3.125 MG PO BID Cholecalciferol (Vitamin D-1000), 2,000 UNITS PO QAM Diltiazem Hcl (Diltiazem Hcl Er), 120 MG PO BID Folic Acid (Folic Acid), 800 MCG PO DAILY Insulin Glargine (Lantus Solostar), 20 UNITS SQ BID Magnesium Oxide (Mg Supplement (Magnesium Oxide), 400 MG PO DAILY Multivitamin (Multivitamin), 1 TAB PO QAM Pregabalin (Lyrica), 200 MG PO BID Allergies Coded Allergies: Eptifibatide (Verified Allergy, Severe, ANAPHYLAXIS, 08/08/17) PT STATED SHE CODED TWICE WITH MED Wasp (Verified Allergy, Severe, WASP VENOM PROTEIN-ANAPHYLAXIS, 08/08/17) Azithromycin (Verified Allergy, Intermediate, palpatations, 08/08/17) Atorvastatin (Verified Allergy, Unknown, MUSCLE PAIN, 08/08/17) Ezetimibe (Verified Allergy, Unknown, MUSCLE PAIN, 08/08/17) Simvastatin (Verified Allergy, Unknown, MUSCLE PAIN, 08/08/17) HMG-CoA-R Inhibitors (Verified Adverse Reaction, Intermediate, STATINS - NAUSEA/RASH; TOLERATES CRESTOR, 08/08/17) Warfarin (Verified Adverse Reaction, Intermediate, EXTREME BLEEDING TIMES , 08/08/17) Codeine (Verified Adverse Reaction, Mild, VOMITING, 08/08/17) Gemfibrozil (Verified Adverse Reaction, Mild, NAUSEA, 08/08/17) Meperidine (Verified Adverse Reaction, Mild, VOMITING, 08/08/17) Ondansetron (Verified Adverse Reaction, Mild, vomiting, 08/08/17) Cortisone (Verified Adverse Reaction, Unknown, INCREASES SUGAR AND VOMITING?, 08/08/17) Hydralazine (Verified Adverse Reaction, Unknown, VOMITING, 08/08/17) Ibuprofen (Verified Adverse Reaction, Unknown, VOMITING AND DIARRHEA, 08/08) Iodine (Verified Adverse Reaction, Unknown, SHELLFISH - VOMITING, 08/08/17) Shellfish (Verified Adverse Reaction, Unknown, VOMITING, 08/08/17) Sulfa Antibiotics (Verified Adverse Reaction, Unknown, VOMITING, 08/08/17) Physical Exam Vital Signs Date Time Temp Pulse Resp B/P (MAP) Pulse Ox O2 Delivery O2 Flow Rate FiO2 08/08/17 18:30 08/08/17 18:30 81 151/81 98 136/90 82 139/81 08/08/17 18:27 82 08/08/17 18:00 82 20 137/81 96 Room Air 08/08/17 15:57 60 18 166/83 95 Nasal Cannula 2.0 08/08/17 15:03 Nasal Cannula 2.0 08/08/17 14:24 61 08/08/17 14:18 Room Air 08/08/17 14:11 36.3 61 22 151/80 96 Room Air Physical Exam GENERAL: Sitting up in bed, disheveled, in minimal distress, alert, well nourished, non-toxic EYE EXAM: normal conjunctiva. OROPHARYNX: no exudate, no erythema, lips, buccal mucosa, and tongue normal and mucous membranes are moist NECK: supple, no nuchal rigidity, no adenopathy, non-tender LUNGS: Clear to auscultation. Normal chest wall mechanics HEART: no murmurs, S1 normal and S2 normal ABDOMEN: abdomen soft, non-tender, normo-active bowel sounds, no masses, no rebound or guarding. BACK: Back is symmetrical on inspection and there is no deformity, no midline tenderness, no CVA tenderness. SKIN: no rashes and no bruising UPPER EXTREMITIES: upper extremities are grossly normal. LOWER EXTREMITIES: No pitting edema. NEURO EXAM: Normal sensorium, cranial nerves II-XII grossly intact, normal speech, no gross weakness of arms, no gross weakness of legs. No drift. Finger to nose intact. Gross sensation intact. Medical Decision & Procedures ER Provider Diagnostic Interpretation: Radiology results as stated below per my review and the radiologist's interpretation: CHEST ONE VIEW PORTABLE HISTORY: 77 years-old Female EVALUATE WEAKNESS acute weakness COMPARISON: Chest radiograph 07/29/2017, chest CT 06/23/2017 TECHNIQUE: Portable AP view of the chest FINDINGS: Cardiac silhouette is again enlarged. Left subclavian Ehjcsp-h-[id number] catheter appears unchanged. Atherosclerosis of the aorta. Postoperative changes of the left upper lobe redemonstrated with adjacent pleural parenchymal scarring. There is no pneumothorax, pleural effusion, overt pulmonary edema or lobar airspace consolidation. Chronic left basilar opacities are again seen suggesting areas of scarring/atelectasis. Bones of the chest appear grossly intact. IMPRESSION: No acute process. The above report was generated using voice recognition software. It may contain grammatical, syntax or spelling errors. Electronically signed by: Dipak Tapia M.D. 08/08/2017 3:12 PM Dictated Date/Time: 08/08/2017 3:10 PM HEAD WITHOUT CONTRAST (CT) CLINICAL HISTORY: 77 years-old Female with EVALUATE WEAKNESS. Acute weakness. History of prior craniotomy with subdural hematoma evacuation TECHNIQUE: Multiple axial CT images of the head were obtained without contrast. A dose lowering technique was utilized adhering to the principles of ALARA. CT DOSE: 823.94 mGycm COMPARISON: Head CT 02/28/2017. FINDINGS: Postoperative changes from prior right calvarial craniotomy again noted involving the parietal bone. Linear area of partially calcified increased attenuation is again seen along the right cerebral convexity adjacent to the craniotomy site measuring 3 mm. This has decreased in size from prior study where it previously measured 5 mm. There is moderate atrophy. Senescent calcifications of the lentiform nuclei are noted. No hydrocephalus or midline shift. No intra-axial hemorrhage identified. No territorial infarction. Chronic microvascular ischemic changes. Moderate mucoperiosteal thickening of the left maxillary antrum, partially imaged. Mild mucosal thickening is seen throughout the ethmoid air cells. Mastoid air cells and middle ear cavities are clear. Soft tissues are unremarkable. IMPRESSION: 1. Postoperative changes from prior right calvarial craniotomy. Decreased size of partially calcified increased attenuation along the right cerebral convexity subdural space suggesting postsurgical changes related to subdural hematoma evacuation. No midline shift. 2. No evidence of territorial infarction. The above report was generated using voice recognition software. It may contain grammatical, syntax or spelling errors. Electronically signed by: Dipak Tapia M.D. 08/08/2017 4:02 PM Dictated Date/Time: 08/08/2017 3:56 PM Laboratory Results 08/08/17 14:45 Red Blood Count 4.28, Mean Corpuscular Volume 93.5, Mean Corpuscular Hemoglobin 30.6, Mean Corpuscular Hemoglobin Concent 32.8, Mean Platelet Volume 11.7, Neutrophils (%) (Auto) 71.1, Lymphocytes (%) (Auto) 18.1, Monocytes (%) (Auto) 8.4, Eosinophils (%) (Auto) 1.5, Basophils (%) (Auto) 0.2, Neutrophils # (Auto) 4.21, Lymphocytes # (Auto) 1.07, Monocytes # (Auto) 0.50, Eosinophils # (Auto) 0.09, Basophils # (Auto) 0.01 08/08/17 14:45 Test 08/08/17 14:45 White Blood Count 5.92 K/uL (4.8-10.8) Red Blood Count 4.28 M/uL (4.2-5.4) Hemoglobin 13.1 g/dL (12.0-16.0) Hematocrit 40.0 % (37-47) Mean Corpuscular Volume 93.5 fL (80-100) Mean Corpuscular Hemoglobin 30.6 pg (25-34) Mean Corpuscular Hemoglobin Concent 32.8 g/dl (32-36) Platelet Count 138 K/uL (130-400) Mean Platelet Volume 11.7 fL (7.4-10.4) Neutrophils (%) (Auto) 71.1 % Lymphocytes (%) (Auto) 18.1 % Monocytes (%) (Auto) 8.4 % Eosinophils (%) (Auto) 1.5 % Basophils (%) (Auto) 0.2 % Neutrophils # (Auto) 4.21 K/uL (1.4-6.5) Lymphocytes # (Auto) 1.07 K/uL (1.2-3.4) Monocytes # (Auto) 0.50 K/uL (0.11-0.59) Eosinophils # (Auto) 0.09 K/uL (0-0.5) Basophils # (Auto) 0.01 K/uL (0-0.2) RDW Standard Deviation 51.0 fL (36.4-46.3) RDW Coefficient of Variation 15.3 % (11.5-14.5) Immature Granulocyte % (Auto) 0.7 % Immature Granulocyte # (Auto) 0.04 K/uL (0.00-0.02) Anion Gap 6.0 mmol/L (3-11) Est Creatinine Clear Calc Drug Dose 40.1 ml/min Estimated GFR () 47.5 Estimated GFR (Non- 41.0 BUN/Creatinine Ratio 23.8 (10-20) Calcium Level 8.7 mg/dl (8.5-10.1) Total Bilirubin 0.5 mg/dl (0.2-1) Direct Bilirubin 0.1 mg/dl (0-0.2) Aspartate Amino Transf (AST/SGOT) 47 U/L (15-37) Alanine Aminotransferase (ALT/SGPT) 47 U/L (12-78) Alkaline Phosphatase 69 U/L (45-117) Troponin I < 0.015 ng/ml (0-0.045) Total Protein 6.5 gm/dl (6.4-8.2) Albumin 3.3 gm/dl (3.4-5.0) Thyroid Stimulating Hormone (TSH) 9.310 uIu/ml (0.300-4.500) Laboratory results per my review. Medications Administered Medications (Trade) Dose Ordered Sig/Carmen Route Start Time Stop Time Status Last Admin Dose Admin Sodium Chloride 1,000 ml @ 999 mls/hr Q1H1M STAT IV 08/08/17 14:25 08/08/17 15:25 DC 08/08/17 15:00 999 MLS/HR Meclizine HCl (Antivert Tab) 25 mg NOW STAT PO 08/08/17 15:42 08/08/17 15:43 DC 08/08/17 16:45 25 MG Promethazine HCl 12.5 mg/Sodium Chloride 50.5 ml @ 202 mls/hr TODAY@1615 ONCE IV 08/08/17 16:15 08/08/17 16:29 DC 08/08/17 16:25 202 MLS/HR ECG Indication: other (dizzy) Rate (beats per minute): 61 Rhythm: other (mobitz 2 with T wave flattening in lateral ) Findings: T-wave inversion (Lateral) Comparison ECG Date: mobitz is new compared to 07/29/17 ED Course ED COURSE: Vital signs were reviewed and showed the patient is hypertensive. The patients medical record was reviewed The above diagnostic studies were performed and reviewed. ED treatments and interventions as stated above. 1417: The patient was evaluated in room A9. A complete history and physical examination was performed. 1425: Ordered Zofran Inj 4mg IV, Sodium Chloride 1000ml @ 999 mls/hr IV, and Aspirin 324mg PO. 1542: I reevaluated the patient and discussed with her the test findings. Ordered Antivert Tab 25mg PO. 1615: Ordered Promethazine HCL 12.5mg/ Sodium Chloride 50.5ml @202 mls/hr IV. 1617: I discussed the patients case with Dr. Watson from Cardiology, who believes the patient is in atrial flutter. 1621: Ordered Valium Inj 2mg IV. 1622: I reevaluated the patient and updated her on test findings. 1706: I reviewed the patient's case with HUNTER Dia. He will evaluate the patient for further management. The patient states that her chest pain is difficult to describe, but it is almost all gone. 1715: Ordered Nitroglycerin 0.5 inch. Medical Decision Differential diagnosis includes etiologies such as benign positional vertigo, dehydration, hypovolemia, anemia, tumor, infection, hypoglycemia, electrolyte abnormalities, cardiac sources, intracerebral event, toxicologic, neurologic, acute coronary syndrome, myocardial infarction, pericarditis, pulmonary embolus , aortic dissection, pneumonia, pneumothorax, musculoskeletal, shingles, esophageal. as well as others were entertained. Patient is a 77-year-old female with a past medical history of A. fib, and 3 MIs that presents for intermittent chest pain that has been present throughout the day today. Now complains of severe dizziness which is worse with movement. This started abruptly later today. She has no focal deficit. She is completely neurologically intact. CT head was negative. It is associated with shortness of breath. It feels somewhat like her previous MIs but not as severe. Each of her 3 previous MIs have all felt different. CBC all BMP, LFTs were unremarkable. TSH was slightly elevated. Troponin was negative. EKG was not changed from previous. Patient was given Phenergan. She declined aspirin. On multiple re-evaluations she notes that her chest pain was gone away and then she states it's difficult to describe whether truly there or not at this point. She was placed on Nitropaste. She did feel better. I discussed with internal medicine. She'll be admitted for further workup of her chest pain and vertiginous symptoms. Medication Reconcilliation Current Medication List: was personally reviewed by me Consults Time Called: 1705 Consulting Physician: HUNTER Dia Returned Call: 1706 I reviewed the patient's case with Dr. Greco [facility] [place]. He will evaluate the patient for further management Impression Primary Impression: Chest pain Additional Impression: Vertigo Scribe Attestation The scribe's documentation has been prepared under my direction and personally reviewed by me in its entirety. I confirm that the note above accurately reflects all work, treatment, procedures, and medical decision making performed by me. Departure Information Dispostion Being Evaluated By Hospitalist Referrals Lizet Jeter D.OCurry (PCP) Forms IMPORTANT VISIT INFORMATION Patient Instructions My [facility] Problem Qualifiers Primary Impression: Chest pain Chest pain type: unspecified Qualified Codes: R07.9 - Chest pain, unspecified
[2017-08-08] MEDS ORDERED: IV FLUIDS COMPLETED PRN (20:00)
[2017-08-08] MEDS ORDERED: DIAZEPAM 2MG TAB ONE (20:16)
[2017-08-08 20:55] VITALS: BP 137/89; PULSE 105; O2SAT 97; BMI 33.4
[2017-08-08] MEDS ORDERED: NURSING VERBAL MED ORDER ONE (21:45)
[2017-08-08] MEDS: PREGABALIN 100 MG CAP PO SCH (21:45)
[2017-08-08] MEDS: DILTIAZEM SR 60 MG CAP PO SCH (21:46)
[2017-08-08] MEDS: CARVEDILOL 3.125 MG TAB PO SCH (21:46)
[2017-08-08] MEDS: CALCIUM CARBONATE 1250MG TAB PO SCH (21:46)
[2017-08-08] MEDS: INSULIN GLARGINE SOLOSTAR 100 UNITS/ML 3 ML PEN SQ SCH (21:48)
[2017-08-08] MEDS ORDERED: GLUCOSE 40% GEL 15 GM TUBE PO PRN (22:00)
[2017-08-08] MEDS ORDERED: DEXTROSE 50% 50 ML SYR IV PRN (22:00)
[2017-08-08] MEDS ORDERED: GLUCOSE 10 TABS/TUBE PO PRN (22:00)
[2017-08-08] MEDS ORDERED: GLUCAGON FOR INJ 1 MG VIAL SQ PRN (22:00)
[2017-08-08] MEDS ORDERED: LORAZEPAM 2 MG/ML 1 ML VIAL IV PRN (22:00)
[2017-08-08] MEDS ORDERED: LORAZEPAM 2 MG/ML 1 ML VIAL IV SCH (22:00)
[2017-08-08 23:40] VITALS: BP 152/91; PULSE 114; TEMP 36.7; O2SAT 97
[2017-08-09] VITALS (9 sets, daily range): BP systolic 109–152; BP diastolic 72–85; PULSE 86–126; TEMP 36.4–36.7; O2SAT 91–96
[2017-08-09 03:27] LABS: CALCIUM 8.3 mg/dl (8.5-10.1); CREATININE 1.13 mg/dl (0.60-1.20); POTASSIUM 4.2 mmol/L (3.5-5.1)
--- NOTE | 2017-08-09 07:22 | DIAGNOSTIC IMAGING REPORT ---
BRAIN WITHOUT CONTRAST HISTORY: 77 years-old Female vertigo, visual change; eval for posterior circulation CVA acute vertigo with concern for acute stroke. COMPARISON: Brain MRI 08/07/2016, CT head 08/08/2017 TECHNIQUE: Multiplanar multisequence MRI of the brain was obtained without contrast. FINDINGS: No restricted diffusion to suggest acute infarction. Midline structures including the corpus callosum, brainstem, optic chiasm, infundibulum, pituitary and pineal glands are unremarkable the sagittal T1 series. No cerebellar tonsillar herniation. Degenerative changes are seen within the cervical spine. Postoperative changes from prior right parietal calvarial craniotomy from subdural evacuation. There is a chronic 3 mm subdural collection nicely seen on image 11 of series 8 demonstrating linear blooming artifact correlating with areas of calcification seen on comparison CT. No enlarging or new subdural collections identified. No significant mass effect or midline shift. No hydrocephalus or intracranial mass. Scattered foci of T2/FLAIR prolongation again seen within the subcortical and periventricular white matter suggesting mild chronic microvascular ischemic changes, slightly progressed from comparison study 08/07/2014. Mild to moderate brain atrophy. The major flow voids at the level of the skull base appear patent. Trace left mastoid effusion. Mild mucosal thickening of the left maxillary sinus. Soft tissues are unremarkable. IMPRESSION: 1. Postoperative changes from right sided craniotomy. Chronic partially calcified 3 mm subdural hematoma is again seen adjacent to the right cerebral convexity. No significant mass effect or midline shift. 2. Mild to moderate atrophy with mild chronic microvascular ischemic changes. The above report was generated using voice recognition software. It may contain grammatical, syntax or spelling errors. Electronically signed by: Dipak Tapia M.D. 08/09/2017 7:20 AM Dictated Date/Time: 08/09/2017 7:10 AM
[2017-08-09] MEDS: MULTIVITAMIN TAB PO SCH (09:11)
[2017-08-09] MEDS: ASCORBIC ACID 500 MG TAB PO SCH (09:12)
[2017-08-09] MEDS: CARVEDILOL 3.125 MG TAB PO SCH ×2 (09:12→21:12)
[2017-08-09] MEDS: MAGNESIUM OXIDE 400 MG TAB PO SCH (09:12)
[2017-08-09] MEDS: FoLIC ACID TAB 400 MCG TAB PO SCH (09:12)
[2017-08-09] MEDS: DILTIAZEM SR 60 MG CAP PO SCH ×2 (09:12→21:12)
[2017-08-09] MEDS: CHOLECALCIFEROL 1000 INTER.UNIT TAB PO SCH (09:12)
[2017-08-09] MEDS: CALCIUM CARBONATE 1250MG TAB PO SCH ×2 (09:12→21:12)
[2017-08-09] MEDS: INSULIN ASPART 100 UNITS/ML 3 ML PEN SC SCH ×4 (09:15→21:17)
[2017-08-09] MEDS: INSULIN GLARGINE SOLOSTAR 100 UNITS/ML 3 ML PEN SQ SCH ×2 (09:16→21:18)
[2017-08-09] MEDS: PREGABALIN 100 MG CAP PO SCH ×2 (09:26→21:13)
--- NOTE | 2017-08-09 11:19 | Progress Note ---
Subjective Date of Service: Aug 09, 2017. Subjective Pt evaluation today including: conversation w/ patient, conversation w/ family , physical exam, chart review, lab review, review of studies, conversation w/ clinical sales consultant, review of inpatient medication list Feeling better, sitting up in chair, no vertigo or dizziness, denied chest pain or chest tight, heart rate is better controlled, at 94 be per minute, denied palpitation or chest pain Problem List Medical Problems: (1) Acute chest pain Status: Acute (2) Atrial fibrillation Status: Acute (3) Closed head injury Status: Acute (4) COPD exacerbation Status: Acute (5) COPD exacerbation Status: Acute (6) Facial laceration Status: Acute (7) Failure of outpatient treatment Status: Acute (8) Fall from bed Status: Acute (9) Left hip pain Status: Acute (10) Pain in left mccormick Status: Acute (11) PNA (pneumonia) Status: Acute (12) Right arm pain Status: Acute (13) Sternal pain Status: Acute (14) Subdural hematoma Status: Acute Review of Systems Constitutional: No see HPI, No fever, No chills, No sweats, No weight loss, No weakness, No fatigue, No problem reported Eyes: No see HPI, No worsening of vision, No eye pain, No redness, No discharge , No diplopia, No problem reported ENT: No see HPI, No hearing loss, No unusual epistaxis, No nasal symptoms, No sore throat, No tinnitus, No dental problems, No trouble swallowing, No problem reported Respiratory: No see HPI, No cough, No sputum, No wheezing, No shortness of breath, No dyspnea on exertion, No dyspnea at rest, No hemoptysis, No problem reported Cardiac: + edema (is not new), No see HPI, No chest pain, No orthopnea, No PND , No claudication, No palpitations, No problem reported Abdomen: No see HPI, No pain, No nausea, No vomiting, No diarrhea, No constipation, No GI bleeding, No problem reported Musculoskeletal: No see HPI, No joint pain, No muscle pain, No swelling, No calf pain, No problem reported Female : No see HPI, No dysuria, No urinary frequency, No hematuria, No incontinence, No abnormal vaginal bleeding, No vaginal discharge, No problem reported Psychiatric: No see HPI, No depression symptoms, No anhedonism, No anxiety, No insomnia, No substance abuse, No problem reported Heme: No see HPI, No abnormal bleeding/bruising, No clotting problems, No swollen lymph nodes, No night sweats, No problem reported Endo: + fatigue, No see HPI, No excessive thirst, No excessive urination, No problem reported Skin: No see HPI, No rash, No itch, No new/changing skin lesions, No color change, No bleeding, No problem reported Objective Vital Signs Date Time Temp Pulse Resp B/P (MAP) Pulse Ox O2 Delivery O2 Flow Rate FiO2 08/09/17 10:58 36.7 103 18 124/79 (94) 92 Room Air 08/09/17 08:00 Room Air 08/09/17 07:16 36.4 105 20 135/76 (95) 96 Nasal Cannula 3.0 08/09/17 04:15 124 143/72 (95) 125 145/73 (97) 08/09/17 04:08 36.5 115 18 109/72 (84) 94 CPAP 2.0 08/09/17 04:00 Nasal Cannula 2.0 08/09/17 00:13 2.0 08/08/17 23:59 Nasal Cannula 2.0 08/08/17 23:40 36.7 114 22 152/91 (111) 97 Nasal Cannula 2.0 08/08/17 21:00 Nasal Cannula 2.0 08/08/17 20:55 105 18 137/89 (105) 97 Nasal Cannula 2.0 08/08/17 20:55 105 18 137/89 08/08/17 20:48 Nasal Cannula 2.0 08/08/17 20:31 106 17 151/103 97 Nasal Cannula 2.0 08/08/17 18:30 08/08/17 18:30 81 151/81 98 136/90 82 139/81 08/08/17 18:27 82 08/08/17 18:00 82 20 137/81 96 Room Air 08/08/17 15:57 60 18 166/83 95 Nasal Cannula 2.0 08/08/17 15:03 Nasal Cannula 2.0 08/08/17 14:24 61 08/08/17 14:18 Room Air 08/08/17 14:11 36.3 61 22 151/80 96 Room Air Physical Exam General Appearance: WD/WN, no apparent distress, + obese, + pertinent finding ( pleasant, but looks tired) Eyes: normal inspection, PERRL, EOMI, sclerae normal ENT: normal ENT inspection, hearing grossly normal, pharynx normal Neck: supple, no adenopathy, thyroid normal, no JVD, no carotid bruits, trachea midline Respiratory/Chest: chest non-tender, normal breath sounds, no respiratory distress, no accessory muscle use, + decreased breath sounds Cardiovascular: no gallop, no JVD, no murmur, + irregularly irregular, + pertinent finding (1+ edema) Abdomen: normal bowel sounds, non tender, soft, no organomegaly, no pulsatile mass Extremities: normal range of motion, non-tender, normal inspection, no pedal edema, no calf tenderness, normal capillary refill, pelvis stable, + swelling (1 + edema left > right, patient said it is always like this ) Neurologic/Psychiatric: instructor painting II-XII nml as tested, no motor/sensory deficits, alert, normal mood/affect, oriented x 3 Skin: normal color, warm/dry, no rash Lymphatic: no adenopathy Laboratory Results Last 24 Hours Test 08/08/17 14:31 08/08/17 14:45 08/08/17 21:00 08/08/17 21:45 Bedside Glucose 182 mg/dl 235 mg/dl White Blood Count 5.92 K/uL Red Blood Count 4.28 M/uL Hemoglobin 13.1 g/dL Hematocrit 40.0 % Mean Corpuscular Volume 93.5 fL Mean Corpuscular Hemoglobin 30.6 pg Mean Corpuscular Hemoglobin Concent 32.8 g/dl Platelet Count 138 K/uL Mean Platelet Volume 11.7 fL Neutrophils (%) (Auto) 71.1 % Lymphocytes (%) (Auto) 18.1 % Monocytes (%) (Auto) 8.4 % Eosinophils (%) (Auto) 1.5 % Basophils (%) (Auto) 0.2 % Neutrophils # (Auto) 4.21 K/uL Lymphocytes # (Auto) 1.07 K/uL Monocytes # (Auto) 0.50 K/uL Eosinophils # (Auto) 0.09 K/uL Basophils # (Auto) 0.01 K/uL RDW Standard Deviation 51.0 fL RDW Coefficient of Variation 15.3 % Immature Granulocyte % (Auto) 0.7 % Immature Granulocyte # (Auto) 0.04 K/uL Sodium Level 139 mmol/L Potassium Level 4.2 mmol/L Chloride Level 105 mmol/L Carbon Dioxide Level 28 mmol/L Anion Gap 6.0 mmol/L Blood Urea Nitrogen 30 mg/dl Creatinine 1.27 mg/dl Est Creatinine Clear Calc Drug Dose 40.1 ml/min Estimated GFR () 47.5 Estimated GFR (Non- 41.0 BUN/Creatinine Ratio 23.8 Random Glucose 193 mg/dl Calcium Level 8.7 mg/dl Total Bilirubin 0.5 mg/dl Direct Bilirubin 0.1 mg/dl Aspartate Amino Transf (AST/SGOT) 47 U/L Alanine Aminotransferase (ALT/SGPT) 47 U/L Alkaline Phosphatase 69 U/L Troponin I < 0.015 ng/ml 0.015 ng/ml Total Protein 6.5 gm/dl Albumin 3.3 gm/dl Thyroid Stimulating Hormone (TSH) 9.310 uIu/ml Urine Color YELLOW Urine Appearance CLEAR Urine pH 5.5 Urine Specific [place] 1.011 Urine Protein NEG Urine Glucose (UA) TRACE Urine Ketones NEG Urine Occult Blood NEG Urine Nitrite NEG Urine Bilirubin NEG Urine Urobilinogen NEG Urine Leukocyte Esterase NEG Test 08/09/17 02:37 Sodium Level 141 mmol/L Potassium Level 4.2 mmol/L Chloride Level 106 mmol/L Carbon Dioxide Level 28 mmol/L Anion Gap 7.0 mmol/L Blood Urea Nitrogen 24 mg/dl Creatinine 1.13 mg/dl Est Creatinine Clear Calc Drug Dose 45.5 ml/min Estimated GFR () 54.7 Estimated GFR (Non- 47.2 BUN/Creatinine Ratio 21.1 Random Glucose 200 mg/dl Calcium Level 8.3 mg/dl Troponin I 0.018 ng/ml Free Thyroxine 0.81 ng/dl Assessment and Plan 77yo female admitted on 08/08/2017 because of acute vertigo that began at a local eye physician's office, associated with some form of visual disturbance. acute vertigo with history of vertigo, has been evaluated extensively by PCP and ENT per report from patient now resolved. Differential diagnosis include stroke vs TIA. However MRI results has no acute disease, the report is in below: 1. Postoperative changes from right sided craniotomy. Chronic partially calcified 3 mm subdural hematoma is again seen adjacent to the right cerebral convexity. No significant mass effect or midline shift. 2. Mild to moderate atrophy with mild chronic microvascular ischemic changes. chest pressure with history of DM 2, a flutter, aflutter upon admission has ischemic changes on EKG but these are unchanged from prior EKGs. Cardiac enzyme troponin has been negative Combined with a flutter with RVR at 120's of HR, cardiology is consulted just had CCB added in the office by Dr. Iraheta. Cont this and her beta suraj. hasn't been taking aspirin or any other blood thinner for a flutter because of prior SDH Cont BB; and she is not on statin which she is not able to tolerant. T2DM - cont lantus; add novolog for meal coverage. JANICE - may use home CPAP or hospital's. h/o Diffuse large B-cell lymphoma of extranodal site - 2014 - noted. CKD stage 3 - creatinine is at baseline. abnormal TSH - check a free T4 which is normal. With her chronic fatigue, if the TSH remains abnormal as an outpatient, consider replacement, PCP and need to follow-up PT, OT evals tomorrow to ensure safe to ambulate and return home, increase activity out of bed to chair and ambulation Possible discharge home tomorrow Continued [facility] stay due to: multiple IV medications needed Discharge planning: home
--- NOTE | 2017-08-09 15:03 | Cardiology Consultation ---
Cardiology Consultation Date of Consultation: Aug 09, 2017. Requesting Physician: Nova Reason for Consultation: Atrial flutter Pt evaluation today including: conversation w/ patient, physical exam, chart review, lab review, review of studies, review of inpatient medication list, conversation w/ attending History of Present Illness Patient is a 77-year-old woman with a history of coronary artery disease, atrial flutter and hypertrophic cardiomyopathy who was at her regrinder yesterday for routine appointment. Patient states will wait for regrinder in a wheelchair she began to feel dizzy and lightheaded. The symptoms involved a sensation that the room was spinning. This quickly resulted in significant nausea vomiting and retching. Based on the severe nature of her symptoms she was brought to [facility] for an evaluation. Patient states that she felt as if she was going to pass out at a certain point. She never lost consciousness however. She also had some chest discomfort that occurred exclusively with vomiting. She describes this discomfort as sharp in nature. Patient was given some antiemetics and monitored over the course of the evening. With her history of prior intracranial hemorrhage she underwent imaging of her head and brain which did not reveal any evidence of trauma or other abnormality. This morning she claims to be feeling better. Nausea is improved and she has been tolerating usual diet. She still feels somewhat unsteady on her feet and tired. Recently she has had more fatigue and an element of exercise intolerance. She has some mild dyspnea on exertion. She does have episodes of dizziness which occur randomly. These are not always associated with gastrointestinal symptoms. They can occur in nearly any position. They are not exclusively related to exertion. Patient denies any chest pain currently. Past Medical/Surgical History Hypertrophic cardiomyopathy, apical variant Coronary artery disease Hypotension Hypertension Chronic renal insufficiency Atrial flutter Diabetes mellitus Lymphoma Glaucoma Past surgical history Cataracts Hysterectomy Knee arthroplasty Port placement Achilles tendon repair Family History Cancer Diabetes mellitus FHx: gallbladder disease Heart disease Hypertension Coronary disease, diabetes mellitus Social History Smoking Status: Never Smoker History of Alcohol Use: No Lives independently with her . Review of Systems Respiratory: No see HPI, No cough, No sputum, No wheezing, No shortness of breath, No dyspnea on exertion, No dyspnea at rest, No hemoptysis, No problem reported Cardiac: + edema No recent constitutional symptoms such as fevers or chills. All Other Systems: Reviewed and Negative Allergies Coded Allergies: Eptifibatide (Verified Allergy, Severe, ANAPHYLAXIS, 08/08/17) PT STATED SHE CODED TWICE WITH MED Wasp (Verified Allergy, Severe, WASP VENOM PROTEIN-ANAPHYLAXIS, 08/08/17) Azithromycin (Verified Allergy, Intermediate, palpatations, 08/08/17) Atorvastatin (Verified Allergy, Unknown, MUSCLE PAIN, 08/08/17) Ezetimibe (Verified Allergy, Unknown, MUSCLE PAIN, 08/08/17) Simvastatin (Verified Allergy, Unknown, MUSCLE PAIN, 08/08/17) HMG-CoA-R Inhibitors (Verified Adverse Reaction, Intermediate, STATINS - NAUSEA/RASH; TOLERATES CRESTOR, 08/08/17) Warfarin (Verified Adverse Reaction, Intermediate, EXTREME BLEEDING TIMES , 08/08/17) Codeine (Verified Adverse Reaction, Mild, VOMITING, 08/08/17) Gemfibrozil (Verified Adverse Reaction, Mild, NAUSEA, 08/08/17) Meperidine (Verified Adverse Reaction, Mild, VOMITING, 08/08/17) Ondansetron (Verified Adverse Reaction, Mild, vomiting, 08/08/17) Cortisone (Verified Adverse Reaction, Unknown, INCREASES SUGAR AND VOMITING?, 08/08/17) Hydralazine (Verified Adverse Reaction, Unknown, VOMITING, 08/08/17) Ibuprofen (Verified Adverse Reaction, Unknown, VOMITING AND DIARRHEA, 08/08) Iodine (Verified Adverse Reaction, Unknown, SHELLFISH - VOMITING, 08/08/17) Shellfish (Verified Adverse Reaction, Unknown, VOMITING, 08/08/17) Sulfa Antibiotics (Verified Adverse Reaction, Unknown, VOMITING, 08/08/17) Medications Current Inpatient Medications Medications (Trade) Dose Ordered Sig/Carmen Route Start Time Stop Time Status Last Admin Dose Admin Acetaminophen (Tylenol Tab) 650 mg Q4H PRN PO 08/08/17 19:15 09/07/17 19:14 Al Hydrox/Mg Hydrox/Simethicone (Maalox Max Susp) 15 ml Q4H PRN PO 08/08/17 19:15 09/07/17 19:14 Magnesium Hydroxide (Milk Of Magnesia Susp) 30 ml Q12H PRN PO 08/08/17 19:15 09/07/17 19:14 Ondansetron HCl (Zofran Inj) 4 mg Q6H PRN IV 08/08/17 19:15 09/07/17 19:14 Ascorbic Acid (Vitamin C Tab) 500 mg QAM PO 08/09/17 09:00 09/08/17 08:59 08/09/17 09:12 500 MG Buspirone HCl (Buspar Tab) 5 mg BID PO 08/08/17 21:00 09/07/17 20:59 08/09/17 09:12 5 MG Carvedilol (Coreg Tab) 3.125 mg BID PO 08/08/17 21:00 09/07/17 20:59 08/09/17 09:12 3.125 MG Cholecalciferol (Vitamin D Tab) 1,000 inter.unit QAM PO 08/09/17 09:00 09/08/17 08:59 08/09/17 09:12 1,000 INTER.UNIT Diltiazem HCl (Cardizem Sr) 120 mg BID PO 08/08/17 21:00 09/07/17 20:59 08/09/17 09:12 120 MG Insulin Glargine (Lantus Solostar Pen) 20 units BID SQ 08/08/17 22:00 09/07/17 21:59 08/09/17 09:16 20 UNITS Multivitamins (Multivitamin Tab) 1 tab QAM PO 08/09/17 09:00 09/08/17 08:59 08/09/17 09:11 1 TAB Pregabalin (Lyrica Cap) 200 mg BID PO 08/08/17 21:30 09/07/17 21:29 08/09/17 09:26 200 MG Calcium Carbonate (oS-Hemant 500 TAB) 1,250 mg BID PO 08/08/17 21:00 09/07/17 20:59 08/09/17 09:12 1,250 MG Folic Acid (Folvite Tab) 800 mcg QAM PO 08/09/17 09:00 09/08/17 08:59 08/09/17 09:12 800 MCG Magnesium Oxide (Mag-Ox Tab) 400 mg QAM PO 08/09/17 09:00 09/08/17 08:59 08/09/17 09:12 400 MG Meclizine HCl (Antivert Tab) 12.5 mg Q6H PRN PO 08/08/17 19:15 09/07/17 19:14 Miscellaneous (Iv Fluids Completed) 1 ea PRN PRN N/A 08/08/17 20:00 08/08/18 19:59 Insulin Aspart (novoLOG ASPART) SLIDING SCALE G... ACHS SC 08/09/17 07:00 09/08/17 06:59 08/09/17 12:57 5 UNITS Glucose (Glucose 40% Gel) 15-30 GRAMS 15 GRAMS... UD PRN PO 08/08/17 22:00 09/07/17 21:59 Glucose (Glucose Chew Tab) 4-8 Tablets 4 Tabl... UD PRN PO 08/08/17 22:00 09/07/17 21:59 Dextrose (Dextrose 50% 50ML Syringe) 25-50ML OF 50% DW IV FOR... UD PRN IV 08/08/17 22:00 09/07/17 21:59 Glucagon (Glucagon Inj) 1 mg UD PRN SQ 08/08/17 22:00 09/07/17 21:59 Heparin Sodium (Porcine) (Heparin 100 Unit/ml 5ml Flush) 5 ml PRN PRN IV 08/09/17 02:15 09/08/17 02:14 Physical Exam Vital Signs Past 12 Hours Date Time Temp Pulse Resp B/P (MAP) Pulse Ox O2 Delivery O2 Flow Rate FiO2 08/09/17 13:55 110 92 08/09/17 12:00 Room Air 08/09/17 10:58 36.7 103 18 124/79 (94) 92 Room Air 08/09/17 08:00 Room Air 08/09/17 07:16 36.4 105 20 135/76 (95) 96 Nasal Cannula 3.0 08/09/17 04:15 124 143/72 (95) 125 145/73 (97) 08/09/17 04:08 36.5 115 18 109/72 (84) 94 CPAP 2.0 08/09/17 04:00 Nasal Cannula 2.0 Data Laboratory Results: Last 24 Hours Test 08/08/17 14:45 08/08/17 21:00 08/08/17 21:45 08/09/17 02:37 White Blood Count 5.92 K/uL Red Blood Count 4.28 M/uL Hemoglobin 13.1 g/dL Hematocrit 40.0 % Mean Corpuscular Volume 93.5 fL Mean Corpuscular Hemoglobin 30.6 pg Mean Corpuscular Hemoglobin Concent 32.8 g/dl Platelet Count 138 K/uL Mean Platelet Volume 11.7 fL Neutrophils (%) (Auto) 71.1 % Lymphocytes (%) (Auto) 18.1 % Monocytes (%) (Auto) 8.4 % Eosinophils (%) (Auto) 1.5 % Basophils (%) (Auto) 0.2 % Neutrophils # (Auto) 4.21 K/uL Lymphocytes # (Auto) 1.07 K/uL Monocytes # (Auto) 0.50 K/uL Eosinophils # (Auto) 0.09 K/uL Basophils # (Auto) 0.01 K/uL RDW Standard Deviation 51.0 fL RDW Coefficient of Variation 15.3 % Immature Granulocyte % (Auto) 0.7 % Immature Granulocyte # (Auto) 0.04 K/uL Sodium Level 139 mmol/L 141 mmol/L Potassium Level 4.2 mmol/L 4.2 mmol/L Chloride Level 105 mmol/L 106 mmol/L Carbon Dioxide Level 28 mmol/L 28 mmol/L Anion Gap 6.0 mmol/L 7.0 mmol/L Blood Urea Nitrogen 30 mg/dl 24 mg/dl Creatinine 1.27 mg/dl 1.13 mg/dl Est Creatinine Clear Calc Drug Dose 40.1 ml/min 45.5 ml/min Estimated GFR () 47.5 54.7 Estimated GFR (Non- 41.0 47.2 BUN/Creatinine Ratio 23.8 21.1 Random Glucose 193 mg/dl 200 mg/dl Calcium Level 8.7 mg/dl 8.3 mg/dl Total Bilirubin 0.5 mg/dl Direct Bilirubin 0.1 mg/dl Aspartate Amino Transf (AST/SGOT) 47 U/L Alanine Aminotransferase (ALT/SGPT) 47 U/L Alkaline Phosphatase 69 U/L Troponin I < 0.015 ng/ml 0.015 ng/ml 0.018 ng/ml Total Protein 6.5 gm/dl Albumin 3.3 gm/dl Thyroid Stimulating Hormone (TSH) 9.310 uIu/ml Urine Color YELLOW Urine Appearance CLEAR Urine pH 5.5 Urine Specific [place] 1.011 Urine Protein NEG Urine Glucose (UA) TRACE Urine Ketones NEG Urine Occult Blood NEG Urine Nitrite NEG Urine Bilirubin NEG Urine Urobilinogen NEG Urine Leukocyte Esterase NEG Bedside Glucose 235 mg/dl Free Thyroxine 0.81 ng/dl Test 08/09/17 11:20 Bedside Glucose 210 mg/dl Imaging: Chest x-ray did not demonstrate any acute process. CT and MRI of the brain did not reveal any acute process. She did have evidence of an old craniotomy and chronic hematoma. EKG: Atrial flutter with controlled ventricular response Telemetry reviewed: Atrial flutter with variable heart rate response. Nuclear perfusion study dated 05/2017 did not reveal any evidence of reversible ischemia. Patient exercised during that test achieving a maximum heart rate of 107 beats per minute. Echocardiogram performed 04/2017: Preserved LV systolic function with ejection fraction 60 65 percent. Severe LVH. Cardiac catheterization performed 07/2011: Patent stents in the RCA. Patent stent in the left circumflex with 70 percent ostial stenosis of a small OM. Patent stent in the LAD Assessment & Plan 1. Dizziness and presyncope: Appears to be related more to vertigo than any arrhythmia. There is no sense of palpitation. Her symptoms involve nausea and vomiting which is more consistent with inner ear process. She does have a history of hypotension on occasion but she was sitting at that time. Her symptoms seem to have resolved. I do not think this represents a more sinister process such as a cardiac arrhythmia. 2. Hypertrophic cardiomyopathy: Described as apical variant. No symptoms of obstruction. No actual syncope. The overall degree of hypertrophy does not meet criteria as a primary indication for prophylactic defibrillator. Patient is on a beta-suraj and calcium channel suraj. 3. Atrial flutter: Previously, patient appeared to have good rate control. She actually exercised using a standard Chauncey protocol did not have significantly elevated heart rates. In the hospital on telemetry she is having some higher rates. She has been re-initiated on an outpatient regimen of low- dose carvedilol and diltiazem. I think it is reasonable to monitor on this regimen and continue ambulation to see if additional doses are warranted. Digoxin is relatively contraindicated in the setting of hypertrophic cardiomyopathy. Aggressive rate control with these agents may be limited by her periodic hypotension. In the past the patient reports being on amiodarone with good effect. It seems she was able to maintain sinus rhythm for extended period of time. While she is relatively long the long-term toxicities associated with amiodarone is significant, absence of good rate control with standard agents with the presence of hypotension in that setting may necessitate reinstitution of amiodarone. Do not think she is a good candidate for other antiarrhythmic such as sotalol or dofetilide due to her renal dysfunction. Disopyramide is often employed in the setting of hypertrophic cardiomyopathy, but she has no notable outflow gradient, this would likely be less effective for suppressing atrial fibrillation. With respect to anticoagulation, the patient was cleared by her neurosurgeon for reinstitution of anticoagulation. I think the appropriate dose for her would be Eliquis 5 milligrams twice daily. This could be reinstitution immediately. This would also allow for re-initiation of antiarrhythmic therapy or possibly cardioversion 1 month from now. 4. Coronary artery disease: Patient's symptoms of chest discomfort were decidedly noncardiac. She has not have elevation in her biomarkers. The symptoms were related exclusively to retching and vomiting. I think she can be continued on secondary prevention with beta blockers. She is not on anti-lipid therapy at this time as she has had prior intolerance to statins. Aspirin was discontinued at the time of her intracranial hemorrhage. He was seem reasonable reinitiate Eliquis as noted above.
[2017-08-10] VITALS (11 sets, daily range): BP systolic 126–160; BP diastolic 73–101; PULSE 90–125; TEMP 36.4–36.9; O2SAT 91–99; Ht 162.6 cm; Wt 86.8 kg
[2017-08-10 05:54] LABS: CALCIUM 8.9 mg/dl (8.5-10.1); CREATININE 1.27 mg/dl (0.60-1.20); POTASSIUM 4.1 mmol/L (3.5-5.1)
[2017-08-10 05:59] LABS: HEMOGLOBIN A1C 9.8 % (4.5-5.6)
[2017-08-10] MEDS: MAGNESIUM OXIDE 400 MG TAB PO SCH ×2 (08:16→21:19)
[2017-08-10] MEDS: FoLIC ACID TAB 400 MCG TAB PO SCH (08:16)
[2017-08-10] MEDS: CHOLECALCIFEROL 1000 INTER.UNIT TAB PO SCH (08:16)
[2017-08-10] MEDS: CALCIUM CARBONATE 1250MG TAB PO SCH ×2 (08:16→21:19)
[2017-08-10] MEDS: MULTIVITAMIN TAB PO SCH (08:17)
[2017-08-10] MEDS: DILTIAZEM SR 60 MG CAP PO SCH ×2 (08:17→21:18)
[2017-08-10] MEDS: ASCORBIC ACID 500 MG TAB PO SCH (08:17)
[2017-08-10] MEDS: CARVEDILOL 3.125 MG TAB PO SCH ×2 (08:17→21:19)
[2017-08-10] MEDS: INSULIN ASPART 100 UNITS/ML 3 ML PEN SC SCH ×4 (08:19→21:24)
[2017-08-10] MEDS: INSULIN GLARGINE SOLOSTAR 100 UNITS/ML 3 ML PEN SQ SCH ×2 (08:20→21:23)
[2017-08-10] MEDS: PREGABALIN 100 MG CAP PO SCH ×2 (08:33→21:21)
[2017-08-10] MEDS ORDERED: NURSING VERBAL MED ORDER ONE (09:45)
[2017-08-10] MEDS ORDERED: MAGNESIUM SULFATE 1GM / D5W 1 GM in PREMIXED IN D5W 100 ML IV ONE (10:00)
--- NOTE | 2017-08-10 10:08 | Progress Note ---
Subjective Date of Service: Aug 10, 2017. Subjective Pt evaluation today including: conversation w/ patient, physical exam, chart review, lab review, review of studies, conversation w/ cardiology consultant, review of inpatient medication list Heart rate still up to 120s in the monitor, patient is pleasant , no complaining , Problem List Medical Problems: (1) Acute chest pain Status: Acute (2) Atrial fibrillation Status: Acute (3) Closed head injury Status: Acute (4) COPD exacerbation Status: Acute (5) COPD exacerbation Status: Acute (6) Facial laceration Status: Acute (7) Failure of outpatient treatment Status: Acute (8) Fall from bed Status: Acute (9) Left hip pain Status: Acute (10) Pain in left mccormick Status: Acute (11) PNA (pneumonia) Status: Acute (12) Right arm pain Status: Acute (13) Sternal pain Status: Acute (14) Subdural hematoma Status: Acute Review of Systems Constitutional: No fever, No chills, No sweats, No weight loss, No weakness, No fatigue, No problem reported Eyes: No worsening of vision, No eye pain, No redness, No discharge, No diplopia ENT: No hearing loss, No unusual epistaxis, No nasal symptoms, No sore throat, No tinnitus, No dental problems, No trouble swallowing Respiratory: No cough, No sputum, No wheezing, No shortness of breath, No dyspnea on exertion, No dyspnea at rest, No hemoptysis Cardiac: + edema (1+ edema which is not new), No chest pain, No orthopnea, No PND, No claudication, No palpitations Abdomen: No pain, No nausea, No vomiting, No diarrhea, No constipation Musculoskeletal: No joint pain, No muscle pain, No swelling, No calf pain Female : No dysuria, No urinary frequency, No hematuria, No incontinence, No abnormal vaginal bleeding, No vaginal discharge Neurologic: No memory loss, No paralysis, No weakness, No numbness/tingling, No vertigo, No balance problems Psychiatric: No depression symptoms, No anhedonism, No anxiety, No insomnia, No substance abuse Heme: No abnormal bleeding/bruising, No clotting problems, No swollen lymph nodes, No night sweats Endo: No fatigue, No excessive thirst, No excessive urination Skin: No rash, No itch, No new/changing skin lesions, No color change, No bleeding Objective Vital Signs Date Time Temp Pulse Resp B/P (MAP) Pulse Ox O2 Delivery O2 Flow Rate FiO2 08/10/17 08:00 Room Air 08/10/17 07:57 111 157/84 (108) 08/10/17 07:57 125 159/101 (120) 08/10/17 07:55 36.6 120 20 135/80 (98) 98 2.0 08/10/17 04:00 Nasal Cannula 2.0 08/10/17 03:40 36.6 95 23 155/85 (108) 93 Room Air 3.0 131/84 (100) 149/89 (109) 08/10/17 00:00 Nasal Cannula 2.0 08/09/17 23:40 36.4 116 19 147/79 (101) 95 Room Air 08/09/17 22:24 126 94 2.0 08/09/17 20:00 Room Air 08/09/17 19:48 36.7 118 20 149/81 (103) 92 Room Air 08/09/17 16:04 36.6 86 20 152/85 (107) 91 Room Air 08/09/17 16:00 Room Air 08/09/17 13:55 110 92 08/09/17 12:00 Room Air 08/09/17 10:58 36.7 103 18 124/79 (94) 92 Room Air Physical Exam General Appearance: WD/WN, no apparent distress, + obese Eyes: normal inspection, PERRL, EOMI, sclerae normal ENT: normal ENT inspection, hearing grossly normal, pharynx normal Neck: supple, no adenopathy, thyroid normal, no JVD, no carotid bruits, trachea midline Respiratory/Chest: chest non-tender, lungs clear, normal breath sounds, no respiratory distress, no accessory muscle use Cardiovascular: regular rate, rhythm, no edema, no gallop, no JVD, no murmur, + irregularly irregular (heart rate at 120) Abdomen: normal bowel sounds, non tender, soft, no organomegaly, no pulsatile mass Extremities: normal range of motion, non-tender, normal inspection, no pedal edema, no calf tenderness, normal capillary refill, pelvis stable 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, no motor/sensory deficits, alert, normal mood/affect, oriented x 3 Skin: normal color, warm/dry, no rash Lymphatic: no adenopathy Laboratory Results Last 24 Hours Test 08/09/17 11:20 08/09/17 16:23 08/09/17 19:27 08/09/17 20:39 Bedside Glucose 210 mg/dl 140 mg/dl 230 mg/dl Magnesium Level 1.5 mg/dl Test 08/10/17 05:06 08/10/17 06:12 Sodium Level 141 mmol/L Potassium Level 4.1 mmol/L Chloride Level 105 mmol/L Carbon Dioxide Level 31 mmol/L Anion Gap 5.0 mmol/L Blood Urea Nitrogen 28 mg/dl Creatinine 1.27 mg/dl Est Creatinine Clear Calc Drug Dose 40.5 ml/min Estimated GFR () 47.5 Estimated GFR (Non- 41.0 BUN/Creatinine Ratio 21.9 Random Glucose 181 mg/dl Estimated Average Glucose 235 mg/dl Hemoglobin A1c 9.8 % Calcium Level 8.9 mg/dl Magnesium Level 1.4 mg/dl Bedside Glucose 208 mg/dl Assessment and Plan 77yo female admitted on 08/08/2017 because of acute vertigo that began at a local eye physician's office, associated with some form of visual disturbance, was found has A. fib with RVR emergency known acute vertigo with history of vertigo, has been evaluated extensively by PCP and ENT per report from patient: resolved. Differential diagnosis include stroke vs TIA. MRI results has no acute disease, the report is in below: 1. Postoperative changes from right sided craniotomy. Chronic partially calcified 3 mm subdural hematoma is again seen adjacent to the right cerebral convexity. No significant mass effect or midline shift. 2. Mild to moderate atrophy with mild chronic microvascular ischemic changes. chest pressure with history of DM 2, a flutter, aflutter upon admission Cardiac enzyme troponin has been negative Combined with a flutter with RVR at 120's of HR, cardiology is consulted just had CCB added in the office by Dr. Iraheta. Cont this and her beta suraj. Discussed with integrity analyst, may be add amiodarone by integrity analyst, while waiting for more input hasn't been taking aspirin or any other blood thinner for a flutter because of prior SDH Patient has proximal A. fib, this increased risk of stroke, per integrity analyst, the patient was cleared by her neurosurgeon for reinstitution of anticoagulation ( per integrity analyst: they got a letter from Dr. Valle [facility] neurosurgeon which indicate patient is okay to start of blood thinner for stroke prevention). I counselling patient again in bedside in detail about the risks and benefits of blood thinner for stroke prevention, and the pros and cons, patient is awake alert and orientated, understanding all the risks and willing to taking all the risks of the bleeding, Eliquis 5 milligrams twice daily, started. Cont BB; and she is not on statin which she is not able to tolerant. Uncontrolled T2DM with blood glucose elevated around 200, and A1c 9.8, increased lantus; continue novolog for meal coverage. JANICE - may use home CPAP or hospital's. h/o Diffuse large B-cell lymphoma of extranodal site - 2014 - noted. CKD stage 3 - creatinine continue is at baseline. abnormal TSH - check a free T4 which is normal. With her chronic fatigue, if the TSH remains abnormal as an outpatient, consider replacement, PCP and need to follow-up PT, OT evals tomorrow to ensure safe to ambulate and return home, increase activity out of bed to chair and ambulation Possible discharge home soon Continued [facility] stay due to: home environment unsafe for pt Discharge planning: home
[2017-08-10] MEDS ORDERED: MAGNESIUM OXIDE 400 MG TAB PO SCH (11:00)
--- NOTE | 2017-08-10 18:38 | Cardiology Follow-Up ---
Subjective Subjective Date of Service: Aug 10, 2017. Pt evaluation today including: conversation w/ patient, conversation w/ family , physical exam, chart review, lab review, review of studies, review of inpatient medication list Additional Details: Feeling relatively well. Denies any recurrent chest pain. Denies any recurrent dizziness/vertigo. Telemetry reviewed--heart rates primarily in the 90s to 110s, occasionally up in the 130s Problem List Medical Problems: (1) Acute chest pain Status: Acute (2) Atrial fibrillation Status: Acute (3) Closed head injury Status: Acute (4) COPD exacerbation Status: Acute (5) COPD exacerbation Status: Acute (6) Facial laceration Status: Acute (7) Failure of outpatient treatment Status: Acute (8) Fall from bed Status: Acute (9) Left hip pain Status: Acute (10) Pain in left mccormick Status: Acute (11) PNA (pneumonia) Status: Acute (12) Right arm pain Status: Acute (13) Sternal pain Status: Acute (14) Subdural hematoma Status: Acute Review of Systems Constitutional: No fever, No chills, No sweats, No weight loss, No weakness, No fatigue, No problem reported Eyes: No worsening of vision, No eye pain, No redness, No discharge, No diplopia ENT: No hearing loss, No unusual epistaxis, No nasal symptoms, No sore throat, No tinnitus, No dental problems, No trouble swallowing Respiratory: No cough, No sputum, No wheezing, No shortness of breath, No dyspnea on exertion, No dyspnea at rest, No hemoptysis Cardiac: + edema (1+ edema which is not new), No chest pain, No orthopnea, No PND, No claudication, No palpitations Abdomen: No pain, No nausea, No vomiting, No diarrhea, No constipation Musculoskeletal: No joint pain, No muscle pain, No swelling, No calf pain Female : No dysuria, No urinary frequency, No hematuria, No incontinence, No abnormal vaginal bleeding, No vaginal discharge Neurologic: No memory loss, No paralysis, No weakness, No numbness/tingling, No vertigo, No balance problems Psychiatric: No depression symptoms, No anhedonism, No anxiety, No insomnia, No substance abuse Heme: No abnormal bleeding/bruising, No clotting problems, No swollen lymph nodes, No night sweats Endo: No fatigue, No excessive thirst, No excessive urination Skin: No rash, No itch, No new/changing skin lesions, No color change, No bleeding Objective Vital Signs Last Vital Signs Documentation Date Time Temp Pulse Resp B/P (MAP) Pulse Ox O2 Delivery O2 Flow Rate FiO2 08/10/17 16:00 Room Air 08/10/17 11:39 36.4 90 16 126/73 (90) 95 08/10/17 07:55 2.0 Physical Exam: General Appearance: no apparent distress, + obese ENT: hearing grossly normal Neck: no JVD Respiratory/Chest: lungs clear, normal breath sounds, no accessory muscle use ( une) Cardiovascular: no edema, + tachycardia, + irregularly irregular (heart rate at 120) Abdomen: non tender, soft Extremities: no pedal edema, no calf tenderness Neurologic/Psychiatric: alert, normal mood/affect Skin: warm/dry Assessment and Plan 1. Dizziness/vertigo 2. Persistent atrial flutter/fibrillation 3. Coronary artery disease status post multivessel stenting 4. Apical variant hypertrophic cardiomyopathy 5. Chronic diastolic heart failure Patient remains in atrial fibrillation with reasonable rate control after receiving meds. She is otherwise asymptomatic. Well perfused, no significant congestion on exam. --patient restarted on apixaban 5 mg b.i.d. yesterday --continue current AV clarisse agents with carvedilol and diltiazem --patient had prolonged period of sinus rhythm and felt better on amiodarone and will plan to resume as an outpatient after has been on anticoagulation for 1 month. --from a cardiac standpoint okay for discharge tomorrow with outpatient follow- up. Continued [facility] stay due to: home environment unsafe for pt Discharge planning: home Medications: Current Inpatient Medications Medications (Trade) Dose Ordered Sig/Carmen Route Start Time Stop Time Status Last Admin Dose Admin Acetaminophen (Tylenol Tab) 650 mg Q4H PRN PO 08/08/17 19:15 09/07/17 19:14 Al Hydrox/Mg Hydrox/Simethicone (Maalox Max Susp) 15 ml Q4H PRN PO 08/08/17 19:15 09/07/17 19:14 Magnesium Hydroxide (Milk Of Magnesia Susp) 30 ml Q12H PRN PO 08/08/17 19:15 09/07/17 19:14 Ondansetron HCl (Zofran Inj) 4 mg Q6H PRN IV 08/08/17 19:15 09/07/17 19:14 Ascorbic Acid (Vitamin C Tab) 500 mg QAM PO 08/09/17 09:00 09/08/17 08:59 08/10/17 08:17 500 MG Buspirone HCl (Buspar Tab) 5 mg BID PO 08/08/17 21:00 09/07/17 20:59 08/10/17 08:18 5 MG Carvedilol (Coreg Tab) 3.125 mg BID PO 08/08/17 21:00 09/07/17 20:59 08/10/17 08:17 3.125 MG Cholecalciferol (Vitamin D Tab) 1,000 inter.unit QAM PO 08/09/17 09:00 09/08/17 08:59 08/10/17 08:16 1,000 INTER.UNIT Diltiazem HCl (Cardizem Sr) 120 mg BID PO 08/08/17 21:00 09/07/17 20:59 08/10/17 08:17 120 MG Multivitamins (Multivitamin Tab) 1 tab QAM PO 08/09/17 09:00 09/08/17 08:59 08/10/17 08:17 1 TAB Pregabalin (Lyrica Cap) 200 mg BID PO 08/08/17 21:30 09/07/17 21:29 08/10/17 08:33 200 MG Calcium Carbonate (oS-Hemant 500 TAB) 1,250 mg BID PO 08/08/17 21:00 09/07/17 20:59 08/10/17 08:16 1,250 MG Folic Acid (Folvite Tab) 800 mcg QAM PO 08/09/17 09:00 09/08/17 08:59 08/10/17 08:16 800 MCG Meclizine HCl (Antivert Tab) 12.5 mg Q6H PRN PO 08/08/17 19:15 09/07/17 19:14 Miscellaneous (Iv Fluids Completed) 1 ea PRN PRN N/A 08/08/17 20:00 08/08/18 19:59 Insulin Aspart (novoLOG ASPART) SLIDING SCALE G... ACHS SC 08/09/17 07:00 09/08/17 06:59 08/10/17 17:16 3 UNITS Glucose (Glucose 40% Gel) 15-30 GRAMS 15 GRAMS... UD PRN PO 08/08/17 22:00 09/07/17 21:59 Glucose (Glucose Chew Tab) 4-8 Tablets 4 Tabl... UD PRN PO 08/08/17 22:00 09/07/17 21:59 Dextrose (Dextrose 50% 50ML Syringe) 25-50ML OF 50% DW IV FOR... UD PRN IV 08/08/17 22:00 09/07/17 21:59 Glucagon (Glucagon Inj) 1 mg UD PRN SQ 08/08/17 22:00 09/07/17 21:59 Heparin Sodium (Porcine) (Heparin 100 Unit/ml 5ml Flush) 5 ml PRN PRN IV 08/09/17 02:15 09/08/17 02:14 08/10/17 05:19 5 ML Magnesium Oxide (Mag-Ox Tab) 400 mg BID PO 08/10/17 21:00 09/09/17 20:59 Insulin Glargine (Lantus Solostar Pen) 22 units BID SQ 08/10/17 21:00 09/07/17 21:59 Apixaban (Eliquis Tab) 5 mg BID PO 08/10/17 21:00 09/09/17 20:59 Lab Results: 08/10/17 05:06 Test 08/10/17 05:06 08/10/17 16:31 Anion Gap 5.0 mmol/L (3-11) Est Creatinine Clear Calc Drug Dose 40.5 ml/min Estimated GFR () 47.5 Estimated GFR (Non- 41.0 BUN/Creatinine Ratio 21.9 (10-20) Estimated Average Glucose 235 mg/dl Hemoglobin A1c 9.8 % (4.5-5.6) Calcium Level 8.9 mg/dl (8.5-10.1) Magnesium Level 1.4 mg/dl (1.8-2.4) Bedside Glucose 164 mg/dl (70-90)
[2017-08-10] MEDS: APIXABAN 2.5 MG TAB PO SCH (21:19)
[2017-08-11 03:54] VITALS: BP 117/74; PULSE 123; TEMP 36.6; O2SAT 99
[2017-08-11 08:02] VITALS: BP 136/63; PULSE 93; TEMP 36.6; O2SAT 92
[2017-08-11 08:03] VITALS: BP_SYST 138; BP_SYST 149; BP_DIAS 68; BP_DIAS 88; PULSE 110; PULSE 121
[2017-08-11] MEDS: ASCORBIC ACID 500 MG TAB PO SCH (08:29)
[2017-08-11] MEDS: INSULIN ASPART 100 UNITS/ML 3 ML PEN SC SCH ×2 (08:30→11:59)
[2017-08-11] MEDS: DILTIAZEM SR 60 MG CAP PO SCH (08:31)
[2017-08-11] MEDS: INSULIN GLARGINE SOLOSTAR 100 UNITS/ML 3 ML PEN SQ SCH (08:31)
[2017-08-11] MEDS: APIXABAN 2.5 MG TAB PO SCH (08:32)
[2017-08-11] MEDS: CALCIUM CARBONATE 1250MG TAB PO SCH (08:32)
[2017-08-11] MEDS: CARVEDILOL 3.125 MG TAB PO SCH (08:32)
[2017-08-11] MEDS: CHOLECALCIFEROL 1000 INTER.UNIT TAB PO SCH (08:33)
[2017-08-11] MEDS: MAGNESIUM OXIDE 400 MG TAB PO SCH (08:33)
[2017-08-11] MEDS: MULTIVITAMIN TAB PO SCH (08:33)
[2017-08-11] MEDS: FoLIC ACID TAB 400 MCG TAB PO SCH (08:33)
[2017-08-11] MEDS: PREGABALIN 100 MG CAP PO SCH (08:34)
[2017-08-11 10:05] LABS: CALCIUM 9.3 mg/dl (8.5-10.1); CREATININE 1.29 mg/dl (0.60-1.20)
[2017-08-11 11:31] VITALS: BP 123/81; PULSE 83; TEMP 36.5; O2SAT 96
[2017-08-11] MEDS ORDERED: PROMETHAZINE HCL 25 MG TAB PO ONE (12:30)
[2017-08-11] MEDS ORDERED: APIX1TAB3 PO (14:08)
[2017-08-11] MEDS ORDERED: MGNO400 PO (14:08)
[2017-08-11] MEDS ORDERED: ANT25 PO (14:08)
--- NOTE | 2017-08-11 14:20 | Discharge Instructions ---
Discharge Instructions Date of Service Aug 11, 2017. Admission Reason for Admission: Chest Pain, Vertigo Discharge Discharge Diagnosis / Problem: Vertigo and chest pain Discharge Goals Goal(s): Decrease discomfort, Improve function, Diagnostic testing, Therapeutic intervention Activity Recommendations Activity Limitations: resume your previous activity (as tolerated) . Instructions / Follow-Up Instructions / Follow-Up You were admitted to the hospital after presenting with vertigo, nausea, vomiting, and chest pain. A head CT scan and brain MRI were obtained, and these did not show any acute abnormalities. The chest pain does not appear to be cardiac in nature, but rather was related to the vomiting you had. During your stay, you developed a rapid heart rate. You were evaluated by cardiology, but it was not recommended to make any changes to your current recommendations at this time. Your neurosurgeon cleared the initiation of blood thinners to help reduce your risk of stroke. Cardiology has recommended that you go back on amiodarone for your atrial fibrillation, but this cannot be done until you have been on the blood thinner for 1 month. Medications: *Please take apixaban (Eliquis) 5 mg by mouth twice a day. This is a blood thinner, or anticoagulant, to reduce your stroke risk due to a-fib. *You may take meclizine (Antivert) 12.5 mg by mouth up to three times a day as needed for dizziness and/or vertigo. *Your magnesium supplement has been increased to 400 mg by mouth twice a day, as your magnesium levels had been low in the hospital. Follow up: *You will be scheduled to follow up with your primary care provider. You will need to follow up regarding your diabetes control, as your sugars were not well controlled here at the hospital, and your [id number] was up to 9.8. *You will also be scheduled to follow up with cardiology. Please seek medical attention if you experience fevers, chills, sweats, dizziness/lightheadedness, loss of consciousness, chest pain, shortness of breath, nausea, vomiting, numbness or tingling. Current Hospital Diet Patient's current hospital diet: AHA Diet (Heart Healthy), Diabetes Type 2 Diet Discharge Diet Recommended Diet: AHA Diet (Heart Healthy), Diabetes Type 2 Diet Pending Studies Studies pending at discharge: no Laboratory Results Hemoglobin A1c Test 08/10/17 05:06 Range/Units Estimated Average Glucose 235 mg/dl Hemoglobin A1c 9.8 H 4.5-5.6 % Medical Emergencies . Who to Call and When: Medical Emergencies: If at any time you feel your situation is an emergency, please call 911 immediately. . Non-Emergent Contact Non-Emergency issues call your: Primary Care Provider, Machine Accountant Call Non-Emergent contact if: you have a fever, you have any medication questions . Past History Medical & Surgical History: (1) Vertigo (2) Chest pain . "Provider Documentation" section prepared by Purvi Pulido. . VTE Core Measure Inpt VTE Proph given/why not?: Other Anticoagulation (Eliquis), SCD's
[2017-08-11 14:35] VITALS: BP 123/81; PULSE 83; TEMP 36.5; O2SAT 96
--- NOTE | 2017-08-11 15:02 | Discharge Summary ---
Discharge Summary Date of Service Aug 11, 2017. Discharge Summary Admission Date: Aug 08, 2017 at 19:22 Discharge Date: Aug 11, 2017 Discharge Disposition: Home Principal Diagnosis: Vertigo, chest pain Problems/Secondary Diagnoses: a-fib/flutter, CAD, h/o NSTEMI, HTN, HLd, DM II, diffuse large B-cell lymphoma of extranodal site (2014), peripheral neuropathy, h/o subdural hematoma following fall on AC, JANICE, CKD stage III, anxiety Immunizations: Have You Had Influenza Vaccine: Yes Influenza Vaccine Date: Jul 20, 2013 History of Tetanus Vaccine?: Yes Tetanus Immunization Date: Sep 18, 2007 History of Pneumococcal: Yes Pneumococcal Date: Apr 18, 1998 History of Hepatitis B Vaccine: No Procedures: HEAD WITHOUT CONTRAST (CT) CLINICAL HISTORY: 77 years-old Female with EVALUATE WEAKNESS. Acute weakness. History of prior craniotomy with subdural hematoma evacuation TECHNIQUE: Multiple axial CT images of the head were obtained without contrast. A dose lowering technique was utilized adhering to the principles of ALARA. CT DOSE: 823.94 mGycm COMPARISON: Head CT 02/28/2017. FINDINGS: Postoperative changes from prior right calvarial craniotomy again noted involving the parietal bone. Linear area of partially calcified increased attenuation is again seen along the right cerebral convexity adjacent to the craniotomy site measuring 3 mm. This has decreased in size from prior study where it previously measured 5 mm. There is moderate atrophy. Senescent calcifications of the lentiform nuclei are noted. No hydrocephalus or midline shift. No intra-axial hemorrhage identified. No territorial infarction. Chronic microvascular ischemic changes. Moderate mucoperiosteal thickening of the left maxillary antrum, partially imaged. Mild mucosal thickening is seen throughout the ethmoid air cells. Mastoid air cells and middle ear cavities are clear. Soft tissues are unremarkable. IMPRESSION: 1. Postoperative changes from prior right calvarial craniotomy. Decreased size of partially calcified increased attenuation along the right cerebral convexity subdural space suggesting postsurgical changes related to subdural hematoma evacuation. No midline shift. 2. No evidence of territorial infarction. BRAIN WITHOUT CONTRAST HISTORY: 77 years-old Female vertigo, visual change; eval for posterior circulation CVA acute vertigo with concern for acute stroke. COMPARISON: Brain MRI 08/07/2016, CT head 08/08/2017 TECHNIQUE: Multiplanar multisequence MRI of the brain was obtained without contrast. FINDINGS: No restricted diffusion to suggest acute infarction. Midline structures including the corpus callosum, brainstem, optic chiasm, infundibulum, pituitary and pineal glands are unremarkable the sagittal T1 series. No cerebellar tonsillar herniation. Degenerative changes are seen within the cervical spine. Postoperative changes from prior right parietal calvarial craniotomy from subdural evacuation. There is a chronic 3 mm subdural collection nicely seen on image 11 of series 8 demonstrating linear blooming artifact correlating with areas of calcification seen on comparison CT. No enlarging or new subdural collections identified. No significant mass effect or midline shift. No hydrocephalus or intracranial mass. Scattered foci of T2/FLAIR prolongation again seen within the subcortical and periventricular white matter suggesting mild chronic microvascular ischemic changes, slightly progressed from comparison study 08/07/2014. Mild to moderate brain atrophy. The major flow voids at the level of the skull base appear patent. Trace left mastoid effusion. Mild mucosal thickening of the left maxillary sinus. Soft tissues are unremarkable. IMPRESSION: 1. Postoperative changes from right sided craniotomy. Chronic partially calcified 3 mm subdural hematoma is again seen adjacent to the right cerebral convexity. No significant mass effect or midline shift. 2. Mild to moderate atrophy with mild chronic microvascular ischemic changes. CHEST ONE VIEW PORTABLE HISTORY: 77 years-old Female EVALUATE WEAKNESS acute weakness COMPARISON: Chest radiograph 07/29/2017, chest CT 06/23/2017 TECHNIQUE: Portable AP view of the chest FINDINGS: Cardiac silhouette is again enlarged. Left subclavian [id number] catheter appears unchanged. Atherosclerosis of the aorta. Postoperative changes of the left upper lobe redemonstrated with adjacent pleural parenchymal scarring. There is no pneumothorax, pleural effusion, overt pulmonary edema or lobar airspace consolidation. Chronic left basilar opacities are again seen suggesting areas of scarring/atelectasis. Bones of the chest appear grossly intact. IMPRESSION: No acute process. Consultations: Cardiology Medication Reconciliation New Medications: Apixaban (Eliquis) 5 Mg Tab 5 MG PO BID for 30 Days, #60 TAB Magnesium Oxide (Magnesium-Oxide) 400 Mg Tab 400 MG PO BID for 30 Days, #60 TAB Meclizine HCl (Meclizine HCl) 25 Mg Tab 12.5 MG PO TID PRN for dizziness/vertigo for 30 Days, #45 TAB Continued Medications: Ascorbic Acid (Vitamin C) 500 Mg Tab 500 MG PO QAM B Complex W/ C (Vitamin B Complex-C) 1 Cap Cap 1 CAP PO QAM Buspirone HCl (Buspirone HCl) 5 Mg Tab 5 MG PO BID Calcium Carbonate-Vitamin D (Calcium) 1 Tab Tab 1 TAB PO BID Carvedilol (Coreg) 3.125 Mg Tab 3.125 MG PO BID, TAB Cholecalciferol (Vitamin D-1000) 1,000 Unit Tab 2000 UNITS PO QAM Diltiazem Hcl (Diltiazem Hcl Er) 60 Mg Cap 120 MG PO BID Folic Acid (Folic Acid) 800 Mcg Tab 800 MCG PO DAILY Insulin Glargine (Lantus Solostar) 100 Unit/Ml Inj 20 UNITS SQ BID, PEN Multivitamin (Multivitamin) Tab 1 TAB PO QAM, 0 Refills Pregabalin (Lyrica) 200 Mg Cap 200 MG PO BID, CAP Discontinued Medications: Magnesium Oxide (Mg Supplement (Magnesium Oxide) 400 Mg Tab 400 MG PO DAILY Discharge Exam The patient reports feeling well. She does have some dizziness this morning but denies any vertigo. She states the dizziness began after she turned her head suddenly to the right to speak to her at bedside. She does note some mild blurry vision since onset of dizziness. She also complains of some nausea but denied any vomiting. Last night she felt palpitations, shortness of breath and fatigue. At that time upon tele review, the patient had been in a- flutter with HR sustained in 120s from about 7 pm to 4 am. She is otherwise feeling well. The patient denies fevers, chills, sweats, chest pain, claudication, cough, wheezing, vomiting, abdominal pain, dysuria, hematuria, urinary retention, paralysis, weakness, acute numbness and tingling. Constitutional: No fever, No chills, No sweats Eyes: +Blurry vision w/dizziness. No eye pain, No diplopia ENT: No hearing loss, No nasal symptoms, No trouble swallowing Respiratory: No cough, No wheezing, No shortness of breath Cardiovascular: +Palpitations. No chest pain, No claudication Abdomen: +Nausea. No pain, No vomiting Musculoskeletal: No joint pain, No muscle pain, No swelling Genitourinary - Female: No dysuria, No urinary retention, No hematuria Neurologic: +Dizziness. No paralysis, No weakness, No numbness/tingling Integumentary: No rash, No itch, No color change General appearance: +Obese. Well-developed, well-nourished, no apparent distress Head: Normocephalic, atraumatic Eyes: +Reports Increased nausea with EOM. Normal inspection, PERRL, EOMI ENT: Normal ENT inspection, hearing grossly normal, pharynx normal Neck: Supple, no JVD, trachea midline Respiratory/Chest: Lungs clear to auscultation, normal breath sounds, no respiratory distress Cardiovascular: +Irregularly irregular, currently rate controlled. No gallop, no murmur Abdomen/GI: Normal bowel sounds, non-tender, soft Extremities/Musculoskeletal: +1+ pitting edema. Normal inspection, no calf tenderness Neurological/Psych: Alert, normal mood/affect, oriented x 3 Skin: Normal color, warm/dry, no rash Hospital Course 77 y/o female with a history of a-fib/flutter, CAD, h/o NSTEMI, HTN, HLD, DM II , diffuse large B-cell lymphoma of extranodal site (2014), peripheral neuropathy , h/o subdural hematoma following fall on AC, JANICE, CKD stage III, and anxiety who presents with acute vertigo, nausea, vomiting and chest pain. Acute vertigo--improved. Had resolved at time of admission, but some dizziness without vertigo this morning. Nausea, no vomiting, able to ambulate -Admit to telemetry. No acute events overnight. Pt in a-fib/flutter HR 80s but up to 120s from [id number] -Head CT, brain MRI negative for acute findings -Dizziness today brought on by sudden head movements, nausea worsened, believe vertigo is benign -D/C with meclizine 12.5 mg PO TID prn -PT/OT evaluate and treat. Recommend home PT Chest pain -No acute ischemic changes, EKG abnormalities same as prior EKGs -Troponins negative -Chest pain occurred in setting of vomiting, likely related to this A-fib/flutter with RVR--currently rate controlled. Had been tachy overnight -Cardiology consulted, appreciate recs: Tolerated amiodarone well with long periods of sinus rhythm in the past. Will plan to restart amiodarone as outpatient after being on anticoagulation for [address] Iraheta regarding overnight RVR w/palpitations, SOB and fatigue. Pt has history of intermittent hypotension, does not recommend increasing home meds at this point. Ok to d/c from cardiac standpoint. -Continue Coreg 3.125 mg PO BID and diltiazem 120 mg PO BID -Cleared to restart anticoagulation by her neurosurgeon Dr. Valle at [facility]. Eliquis 5 mg PO BID CAD, h/o NSTEMI, HTN, HLD--stable -Continue Coreg and diltiazem as above, apparently does not tolerate statins DM II -Lantus 22 units SC BID -Insulin sliding scale -Check BSGs q ac and qhs -HgbA1c 9.8 on 08/10 -Need to f/u with PCP regarding glycemic control Peripheral neuropathy--stable -Continue Lyrica 200 mg PO BID H/o subdural hematoma following fall while on anticoagulation, s/p craniotomy and evacuation -OK to resume AC per neurosurgeon, Analiquis as above JANICE -Continue CPAP. Pt state she has not been wearing here b/c mask doesn't fit well (did not bring her own) H/o Diffuse large B-cell lymphoma of extranodal site - 2014 - noted. CKD stage III--stable, at baseline Abnormal TSH -TSH elevated on admission, free T4 WNL -Repeat thyroid function tests 4-6 weeks outpt, may require replacement Anxiety -Continue BuSpar 5 mg PO BID DVT prophylaxis -Eliquis -FREEDOM turner and SCDs Dispo -From home -D/C to home w/home PT Total Time Spent: Greater than 30 minutes This includes examination of the patient, discharge planning, medication reconciliation, and communication with other providers. Discharge Instructions Please refer to the electronic Patient Visit Report (Discharge Instructions) for additional information. Additional Copies To Lizet Jeter D.O.
== END 2017-08-11 14:55 | disposition home or self-care (01) ==
LOC: C.EDB 14:08 → C.2T 19:22 → ENRESERV 19:48
PROVIDERS: ADMIT Internal Medicine; ATTEND Internal Medicine
DX: R42 Dizziness and giddiness (principal); R07.9 Chest pain, unspecified; I48.91 Unspecified atrial fibrillation; I48.92 Unspecified atrial flutter; I25.10 Atherosclerotic heart disease of native coronary artery without angina pectoris; I13.0 Hypertensive heart and chronic kidney disease with heart failure and stage 1 through stage 4 chronic kidney disease, or unspecified chronic kidney disease; N18.3 Chronic kidney disease, stage 3 (moderate); I50.32 Chronic diastolic (congestive) heart failure; E78.5 Hyperlipidemia, unspecified; E11.9 Type 2 diabetes mellitus without complications; I42.2 Other hypertrophic cardiomyopathy; H40.9 Unspecified glaucoma; G47.33 Obstructive sleep apnea (adult) (pediatric); G62.9 Polyneuropathy, unspecified; I25.2 Old myocardial infarction; Z85.79 Personal history of other malignant neoplasms of lymphoid, hematopoietic and related tissues; Z79.82 Long term (current) use of aspirin; Z79.4 Long term (current) use of insulin; Z79.01 Long term (current) use of anticoagulants; Z87.01 Personal history of pneumonia (recurrent); Z90.710 Acquired absence of both cervix and uterus; Z96.653 Presence of artificial knee joint, bilateral; Z86.19 Personal history of other infectious and parasitic diseases; Z90.722 Acquired absence of ovaries, bilateral; Z90.79 Acquired absence of other genital organ(s); Z82.49 Family history of ischemic heart disease and other diseases of the circulatory system; Z83.3 Family history of diabetes mellitus; Z82.3 Family history of stroke

== ENCOUNTER → 2017-09-01 | Outpatient (CLI) | payer OTHER, BC ==
[~2017-09-01] MED LIST changes: +ANT25 PO; +APIX1TAB3 PO; -MAGN1TAB19 PO; +MGNO400 PO
[2017-09-01 16:42] LABS: HEMATOCRIT 44.2 % (37-47); HEMOGLOBIN 14.4 g/dL (12.0-16.0); MEAN CELL VOLUME 94.2 fL (80-100); MEAN CORPUSCULAR HEMOGLOBIN 30.7 pg (25-34); MEAN CORPUSCULAR HGB CONC 32.6 g/dl (32-36); MEAN PLATELET VOLUME 12.8 fL (7.4-10.4); PLATELET COUNT 162 K/uL (130-400); RED CELL DISTRIBUTION WIDTH CV 15.3 % (11.5-14.5); RED CELL DISTRIBUTION WIDTH SD 52.6 fL (36.4-46.3); WHITE BLOOD COUNT 6.91 K/uL (4.8-10.8)
[2017-09-01 18:18] LABS: ALBUMIN 3.8 gm/dl (3.4-5.0); BLOOD UREA NITROGEN 39 mg/dl (7-18); CALCIUM 9.4 mg/dl (8.5-10.1); CARBON DIOXIDE 27 mmol/L (21-32); CREATININE 1.35 mg/dl (0.60-1.20); GLUCOSE 109 mg/dl (70-99); POTASSIUM 3.6 mmol/L (3.5-5.1); SODIUM 139 mmol/L (136-145)
[2017-09-01 18:19] LABS: PHOSPHORUS 3.5 mg/dl (2.5-4.9)
== END | disposition home or self-care (01) ==
LOC: C.LAB1850 14:46
PROVIDERS: ATTEND Internal Medicine Nephrology
DX: I10 Essential (primary) hypertension (principal); N18.3 Chronic kidney disease, stage 3 (moderate); E11.9 Type 2 diabetes mellitus without complications; E55.9 Vitamin D deficiency, unspecified

== ENCOUNTER 2017-09-21 16:12 | Inpatient (IN) | payer OTHER, BC ==
[~2017-09-21] VITALS: Ht 162.6 cm; Wt 90.3 kg
[~2017-09-21 16:12] MED LIST changes: -APIX1TAB3 PO; -BSP/5 PO; -FOLI800T PO; -INSDGIPEN SQ
[2017-09-21] MEDS ORDERED: FOLI800T PO (16:39)
[2017-09-21] MEDS ORDERED: BSP/5 PO (16:39)
[2017-09-21 16:50] LABS: BASO % 0.8 %; BASO ABS # 0.04 K/uL (0-0.2); EOS % 2.1 %; EOS ABS # 0.11 K/uL (0-0.5); HEMATOCRIT 44.5 % (37-47); HEMOGLOBIN 14.7 g/dL (12.0-16.0); IG# 0.03 K/uL (0.00-0.02); LYMPH % 19.8 %; LYMPH ABS # 1.05 K/uL (1.2-3.4); MEAN CELL VOLUME 94.7 fL (80-100); MEAN CORPUSCULAR HEMOGLOBIN 31.3 pg (25-34); MEAN PLATELET VOLUME 12.5 fL (7.4-10.4); MONO % 5.8 %; MONO ABS # 0.31 K/uL (0.11-0.59); NEUT % 70.9 %; NEUT ABS # 3.77 K/uL (1.4-6.5); PLATELET COUNT 137 K/uL (130-400); RED CELL DISTRIBUTION WIDTH CV 15.2 % (11.5-14.5); WHITE BLOOD COUNT 5.31 K/uL (4.8-10.8)
--- NOTE | 2017-09-21 16:52 | DIAGNOSTIC IMAGING REPORT ---
CHEST ONE VIEW PORTABLE CLINICAL HISTORY: Atypical chest pain COMPARISON STUDY: July 2017 FINDINGS: The patient was imaged in a somewhat apical lordotic fashion. There is a left-sided A-Port catheter unchanged in position. The heart remains enlarged. The left hemidiaphragm remains obscured. The left heart border is indistinct. Left basilar scarring is suspected. There are postsurgical changes of the left apex.[ IMPRESSION: 1. Persistent cardiomegaly 2. Postsurgical changes of the left 3. Indistinctness of the left heart border and left hemidiaphragm, likely secondary to a combination of technical factors and left sided scarring. 4. If symptoms persist, a PA and lateral study might be of benefit for further evaluation Electronically signed by: Olaf Muir M.D. 09/21/2017 4:50 PM Dictated Date/Time: 09/21/2017 4:48 PM
--- NOTE | 2017-09-21 16:56 | EMERGENCY ROOM VISIT NOTE ---
History Report prepared by Christian: Andrey Glynn Under the Supervision of: Dr. Patti Rivera M.D. First contact with patient: 16:28 Chief Complaint: CHEST PAIN Stated Complaint: CHEST PRESSURE/PAIN History of Present Illness The patient is a 77 year old female who presents to the Emergency Room with complaints of chest pain and shortness of breath that began at 0600, 10.5 hours prior to her arrival to the department. The patient describes her chest pain as a "pressure" that has radiated down her arm and up into the right side of her neck intermittently. She rates the chest pressure as a 6/10 in severity. Her shortness of breath is worsened with exertion. The patient also complains of nausea that onset shortly after the chest pressure started. She noted that she has had a brain bleed in the past, about 9 months ago and cannot take Aspirin. She is taking Apixaban daily. The patient has had several myocardial infarctions in the past and notes that this pressure feels similar to those episodes in the past. Review of the patient's medical record shows that she has been cleared by her neurologist to start anticoagulation therapy again. Source of History: patient Onset: 10.5 hours prior to arrival Position: chest Quality: pressure Associated Symptoms: + SOB, + nausea Review of Systems See HPI for pertinent positives & negatives. A total of 10 systems reviewed and were otherwise negative. Past Medical & Surgical Medical Problems: (1) Atrial Fibrillation (2) Atrial fibrillation or flutter (3) C. 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, Unsp Site, Extranodal & Solid Organ (13) Neutropenia (14) Peripheral neuropathy (15) Unstable angina (16) Vertigo Surgical Problems: (1) Knee Joint Replacement Status Family History Cancer Diabetes mellitus FHx: gallbladder disease Heart disease Hypertension Social History Smoking Status: Never Smoker Alcohol Use: none Drug Use: none Marital Status: Housing Status: lives with significant other Occupation Status: retired Current/Historical Medications Scheduled Amiodarone HCl (Amiodarone HCl), 200 MG PO DAILY Apixaban (Eliquis), 5 MG PO BID Ascorbic Acid (Vitamin C), 500 MG PO QAM B Complex W/ C (Vitamin B Complex-C), 1 CAP PO QAM Buspirone HCl (Buspirone HCl), 5 MG PO BID Calcium Carbonate-Vitamin D (Calcium), 1 TAB PO BID Carvedilol (Carvedilol), 6.25 MG PO BID Diltiazem Hcl Coated Beads (Cartia Xt), 120 MG PO DAILY Ergocalciferol (Vitamin D 78987 Unit), 50,000 UNITS PO WK Folic Acid (Folic Acid), 800 MCG PO DAILY Insulin Glargine (Lantus Solostar), 25 UNITS SQ BID Magnesium Oxide (Mag-Ox), 400 MG PO BID Multivitamin (Multivitamin), 1 TAB PO QAM Pregabalin (Lyrica), 200 MG PO BID Allergies Coded Allergies: Eptifibatide (Verified Allergy, Severe, ANAPHYLAXIS, 08/08/17) PT STATED SHE CODED TWICE WITH MED Wasp (Verified Allergy, Severe, WASP VENOM PROTEIN-ANAPHYLAXIS, 08/08/17) Azithromycin (Verified Allergy, Intermediate, palpatations, 08/08/17) Atorvastatin (Verified Allergy, Unknown, MUSCLE PAIN, 08/08/17) Ezetimibe (Verified Allergy, Unknown, MUSCLE PAIN, 08/08/17) Simvastatin (Verified Allergy, Unknown, MUSCLE PAIN, 08/08/17) HMG-CoA-R Inhibitors (Verified Adverse Reaction, Intermediate, STATINS - NAUSEA/RASH; TOLERATES CRESTOR, 08/08/17) Warfarin (Verified Adverse Reaction, Intermediate, EXTREME BLEEDING TIMES , 08/08/17) Codeine (Verified Adverse Reaction, Mild, VOMITING, 08/08/17) Gemfibrozil (Verified Adverse Reaction, Mild, NAUSEA, 08/08/17) Meperidine (Verified Adverse Reaction, Mild, VOMITING, 08/08/17) Ondansetron (Verified Adverse Reaction, Mild, vomiting, 08/08/17) Cortisone (Verified Adverse Reaction, Unknown, INCREASES SUGAR AND VOMITING?, 08/08/17) Hydralazine (Verified Adverse Reaction, Unknown, VOMITING, 08/08/17) Ibuprofen (Verified Adverse Reaction, Unknown, VOMITING AND DIARRHEA, 08/08) Iodine (Verified Adverse Reaction, Unknown, SHELLFISH - VOMITING, 08/08/17) Shellfish (Verified Adverse Reaction, Unknown, VOMITING, 08/08/17) Sulfa Antibiotics (Verified Adverse Reaction, Unknown, VOMITING, 08/08/17) Physical Exam Vital Signs Date Time Temp Pulse Resp B/P (MAP) Pulse Ox O2 Delivery O2 Flow Rate FiO2 09/21/17 19:41 187/112 09/21/17 19:31 194/98 09/21/17 19:21 162/104 09/21/17 19:12 99 27 142/97 96 09/21/17 19:11 163/112 09/21/17 19:01 165/104 09/21/17 18:51 173/106 09/21/17 18:41 179/111 09/21/17 18:38 174/98 09/21/17 18:38 90 20 174/98 96 Nasal Cannula 09/21/17 18:31 173/113 09/21/17 18:28 177/110 09/21/17 18:21 194/113 09/21/17 18:12 108 25 96 09/21/17 18:11 181/108 09/21/17 18:09 108 20 198/118 96 Nasal Cannula 2.0 09/21/17 18:08 198/118 09/21/17 18:01 196/139 09/21/17 17:51 196/130 09/21/17 17:41 208/143 09/21/17 17:31 169/149 09/21/17 17:21 187/121 09/21/17 17:12 106 22 99 09/21/17 17:11 181/110 09/21/17 17:09 107 09/21/17 17:06 188/116 09/21/17 17:04 184/126 09/21/17 17:03 196/122 09/21/17 17:01 180/127 09/21/17 16:58 108 18 188/116 96 Nasal Cannula 2.0 09/21/17 16:58 90 Room Air 09/21/17 16:55 166/119 09/21/17 16:42 95 Room Air 09/21/17 16:40 93 Room Air 09/21/17 16:18 36.3 107 18 174/109 96 Room Air Physical Exam Vital signs reviewed.Tachycardic and hypertensive. General: Chronically ill-appearing obese female, in no significant distress. HEENT: No scleral icterus, PERRLA, neck supple. Atraumatic. Cardiovascular: Rapid rate with an irregular rhythm, no extra sounds. Pulmonary: Clear to auscultation bilaterally, normal work of breathing. Abdomen: Soft, nontender, nondistended, positive bowel sounds. Musculoskeletal: Atraumatic, no peripheral edema. Neurologic: Patient awake alert and oriented x 3 Skin: Warm, dry, no rash Medical Decision & Procedures ER Provider Diagnostic Interpretation: Radiology results as stated below per my review and radiologist interpretation: CHEST ONE VIEW PORTABLE CLINICAL HISTORY: Atypical chest pain COMPARISON STUDY: July 2017 FINDINGS: The patient was imaged in a somewhat apical lordotic fashion. There is a left-sided A-Port catheter unchanged in position. The heart remains enlarged. The left hemidiaphragm remains obscured. The left heart border is indistinct. Left basilar scarring is suspected. There are postsurgical changes of the left apex.[ IMPRESSION: 1. Persistent cardiomegaly 2. Postsurgical changes of the left 3. Indistinctness of the left heart border and left hemidiaphragm, likely secondary to a combination of technical factors and left sided scarring. 4. If symptoms persist, a PA and lateral study might be of benefit for further evaluation Electronically signed by: Olaf Muir M.D. 09/21/2017 4:50 PM Dictated Date/Time: 09/21/2017 4:48 PM Laboratory Results Test 09/21/17 16:35 09/21/17 16:43 Immature Granulocyte % (Auto) 0.6 % White Blood Count 5.31 K/uL (4.8-10.8) Red Blood Count 4.70 M/uL (4.2-5.4) Hemoglobin 14.7 g/dL (12.0-16.0) Hematocrit 44.5 % (37-47) Mean Corpuscular Volume 94.7 fL (80-100) Mean Corpuscular Hemoglobin 31.3 pg (25-34) Mean Corpuscular Hemoglobin Concent 33.0 g/dl (32-36) Platelet Count 137 K/uL (130-400) Mean Platelet Volume 12.5 fL (7.4-10.4) Neutrophils (%) (Auto) 70.9 % Lymphocytes (%) (Auto) 19.8 % Monocytes (%) (Auto) 5.8 % Eosinophils (%) (Auto) 2.1 % Basophils (%) (Auto) 0.8 % Neutrophils # (Auto) 3.77 K/uL (1.4-6.5) Lymphocytes # (Auto) 1.05 K/uL (1.2-3.4) Monocytes # (Auto) 0.31 K/uL (0.11-0.59) Eosinophils # (Auto) 0.11 K/uL (0-0.5) Basophils # (Auto) 0.04 K/uL (0-0.2) Immature Granulocyte # (Auto) 0.03 K/uL (0.00-0.02) Magnesium Level 1.7 mg/dl (1.8-2.4) Total Bilirubin 0.5 mg/dl (0.2-1) Direct Bilirubin mg/dl (0-0.2) Aspartate Amino Transf (AST/SGOT) 66 U/L (15-37) Alanine Aminotransferase (ALT/SGPT) 65 U/L (12-78) Alkaline Phosphatase 76 U/L (45-117) Total Creatine Kinase 66 U/L (26-192) Creatine Kinase MB 1.5 ng/ml (0.5-3.6) Creatine Kinase MB Ratio 2.3 (0-3.0) Total Protein 7.3 gm/dl (6.4-8.2) Albumin 3.7 gm/dl (3.4-5.0) Beta-Hydroxybutyric Acid mg/dL (0.2-2.81) Chemistry Specimen Hemolysis Bedside Troponin I < 0.030 ng/ml (0-0.045) Laboratory results per my review. Medications Administered Medications (Trade) Dose Ordered Sig/Carmen Route Start Time Stop Time Status Last Admin Dose Admin Labetalol HCl (Normodyne IV) 10 mg NOW STAT IV 09/21/17 17:16 09/21/17 17:17 DC 09/21/17 18:31 10 MG ECG Per My Interpretation Indication: chest pain, SOB/dyspnea Rate (beats per minute): 106 Rhythm: atrial fibrillation Findings: ST elevation (Lead III), other (Some reciprocal change in aVL noted, some repolarization abnormalities in the lateral leads. ) Comparison ECG Date: 08/08/2017 Change: no significant change Change: REPEAT ON SAME VISIT: A-fib at 107. Rightward axis, Likely previous anterior infarct. ST-changes in the inferior leads are not significantly changed from previous. Repolarization abnormality laterally. No significant change from previous. ED Course 162: Past medical records reviewed. The patient was evaluated in room A1. A complete history and physical examination was performed. 1715: Ordered Normodyne IV 10 mg. 1745: I discussed the case with Dr. Edy Rubalcava at this time. He states that he will make Dr. Momo Del Rio aware of the patient at his change of shift. 1910: I checked on the patient at this time. She is doing well. 1920: I discussed the case with Dr. Edy HARRISON Hospitalist at this time. He will evaluate the patient for further treatment. Medical Decision Differential diagnosis: Etiologies such as cardiac ischemia, aortic dissection, pulmonary embolism, pneumonia, pneumothorax, musculoskeletal, infections, pericarditis, myocarditis , esophageal rupture, gastrointestinal, as well as others were entertained. This pt was evaluated and appeared to be in no distress. IV access was obtained and lab work was drawn. Pt was placed on the cardiac care nurse. She declines aspirin d/t previous ICH, although is on Eliquis. Pt was given IV labetolol for HTN and rate control. Cardiac enzymes are negative. Pain seems chronic, although pt is high risk at this time. She will be evaluated by the hospitalist service for further management. Medication Reconcilliation Current Medication List: was personally reviewed by me Blood Pressure Screening Patient's blood pressure: Elevated blood pressure Referred to Hospitalist Consults Time Called: 1911 Consulting Physician: Dr. Edy HARRISON Hospitalist Returned Call: 1920 I discussed the case with Dr. Edy HARRISON Hospitalist at this time. He will evaluate the patient for further treatment. Impression Primary Impression: Unstable angina Additional Impressions: Hypertensive urgency Rapid atrial fibrillation Scribe Attestation The scribe's documentation has been prepared under my direction and personally reviewed by me in its entirety. I confirm that the note above accurately reflects all work, treatment, procedures, and medical decision making performed by me. Departure Information Dispostion Being Evaluated By Hospitalist Referrals Lizet Jeter D.O. (PCP) Patient Instructions My [facility] Problem Qualifiers
[2017-09-21] MEDS ORDERED: LABETALOL HCL IV 5 MG/ML 20ML IV STA (17:16)
[2017-09-21 17:37] LABS: ALBUMIN 3.7 gm/dl (3.4-5.0); ALKALINE PHOSPHATASE 76 U/L (45-117); ALT/SGPT 65 U/L (12-78); AST/SGOT 66 U/L (15-37); BLOOD UREA NITROGEN 33 mg/dl (7-18); CALCIUM 8.7 mg/dl (8.5-10.1); CARBON DIOXIDE 24 mmol/L (21-32); CKMB 1.5 ng/ml (0.5-3.6); CREATININE 1.52 mg/dl (0.60-1.20); GLUCOSE 325 mg/dl (70-99); POTASSIUM 5.1 mmol/L (3.5-5.1); SODIUM 140 mmol/L (136-145); TOTAL PROTEIN 7.3 gm/dl (6.4-8.2)
[2017-09-21] MEDS ORDERED: CRG625 PO (19:00)
[2017-09-21] MEDS ORDERED: CRD200 PO (19:00)
[2017-09-21] MEDS ORDERED: DILT120C43 PO (19:00)
[2017-09-21] MEDS ORDERED: APIX1TAB3 PO (19:00)
[2017-09-21] MEDS ORDERED: ERGO500011 PO (19:00)
[2017-09-21] MEDS ORDERED: MAGN400T6 PO (19:00)
[2017-09-21] MEDS ORDERED: METOPROLOL TARTRATE 1 MG/ML VIAL IV STA (19:48)
[2017-09-21] MEDS ORDERED: MoRPHine SULFATE 2 MG/ML CARP IV STA (19:52)
[2017-09-21] MEDS ORDERED: NITROGLYCERIN 2% OINTMENT 30GM TUBE EXT SCH (20:00)
[2017-09-21] MEDS ORDERED: METOPROLOL TARTRATE 1 MG/ML VIAL IV PRN (20:00)
[2017-09-21] MEDS ORDERED: MoRPHine SULFATE 2 MG/ML CARP IV PRN (20:15)
[2017-09-21] MEDS ORDERED: SODIUM CHLORIDE 0.9% 1000ML 1,000 ML IV SCH (20:30)
--- NOTE | 2017-09-21 20:42 | History and Physical ---
History & Physical Date & Time of Service: Sep 21, 2017 at 20:04 Chief Complaint: Chest Pressure/Pain Primary Care Physician: Lizet Jeter D.O. History of Present Illness Source: patient Ms. Hagen started feeling chest pain 04/03 with dyspnea while sitting and talking on the phone. She had associated jaw pain. She has chest pain often over the past weeks but its usually with exertion. She is also nauseas. She has an extensive cardiac history with CAD s/p multi vessel stenting with residual non occlusive disease, apical variant hypertrophic cardiomyopathy with diastolic CHF , PAF, htn, dyslipidemia, DMII, PAD, Lymphoma, CKDIII. She has been in A.fib for about a month for anticoagulation before cardioversion. She is able to feel palpitations when she lays down in bed. Due to history of craniotomy 9 months ago she is unable to take ASA. She also cannot take nitro but she does not remember why. ROS Constitutional: no chills, aches, sweats or fever Respiratory: see HPI Cardiac: see HPI GI: no abdominal pain, nausea, vomiting, diarrhea or constipation : no dysuria or hesitancy Extremities: no joint pain or weakness Skin: no rash All other systems reviewed and negative Family History Cancer Diabetes mellitus FHx: gallbladder disease Heart disease Hypertension Social History Smoking Status: Never Smoker Drug Use: none Marital Status: Housing status: lives with family Occupational Status: retired Immunizations History of Influenza Vaccine: Yes Influenza Vaccine Date: Jul 20, 2013 History of Tetanus Vaccine?: Yes Tetanus Immunization Date: Sep 18, 2007 History of Pneumococcal: Yes Pneumococcal Date: Apr 18, 1998 History of Hepatitis B Vaccine: No Allergies Coded Allergies: Eptifibatide (Verified Allergy, Severe, ANAPHYLAXIS, 08/08/17) PT STATED SHE CODED TWICE WITH MED Wasp (Verified Allergy, Severe, WASP VENOM PROTEIN-ANAPHYLAXIS, 08/08/17) Azithromycin (Verified Allergy, Intermediate, palpatations, 08/08/17) Atorvastatin (Verified Allergy, Unknown, MUSCLE PAIN, 08/08/17) Ezetimibe (Verified Allergy, Unknown, MUSCLE PAIN, 08/08/17) Simvastatin (Verified Allergy, Unknown, MUSCLE PAIN, 08/08/17) HMG-CoA-R Inhibitors (Verified Adverse Reaction, Intermediate, STATINS - NAUSEA/RASH; TOLERATES CRESTOR, 08/08/17) Warfarin (Verified Adverse Reaction, Intermediate, EXTREME BLEEDING TIMES , 08/08/17) Codeine (Verified Adverse Reaction, Mild, VOMITING, 08/08/17) Gemfibrozil (Verified Adverse Reaction, Mild, NAUSEA, 08/08/17) Meperidine (Verified Adverse Reaction, Mild, VOMITING, 08/08/17) Ondansetron (Verified Adverse Reaction, Mild, vomiting, 08/08/17) Cortisone (Verified Adverse Reaction, Unknown, INCREASES SUGAR AND VOMITING?, 08/08/17) Hydralazine (Verified Adverse Reaction, Unknown, VOMITING, 08/08/17) Ibuprofen (Verified Adverse Reaction, Unknown, VOMITING AND DIARRHEA, 08/08) Iodine (Verified Adverse Reaction, Unknown, SHELLFISH - VOMITING, 08/08/17) Shellfish (Verified Adverse Reaction, Unknown, VOMITING, 08/08/17) Sulfa Antibiotics (Verified Adverse Reaction, Unknown, VOMITING, 08/08/17) Home Medications Scheduled Amiodarone HCl (Amiodarone HCl), 200 MG PO DAILY Apixaban (Eliquis), 5 MG PO DAILY Ascorbic Acid (Vitamin C), 500 MG PO QAM B Complex W/ C (Vitamin B Complex-C), 1 CAP PO QAM Buspirone HCl (Buspirone HCl), 5 MG PO BID Calcium Carbonate-Vitamin D (Calcium), 1 TAB PO BID Carvedilol (Carvedilol), 6.25 MG PO BID Diltiazem Hcl Coated Beads (Cartia Xt), 120 MG PO DAILY Ergocalciferol (Vitamin D 58875 Unit), 50,000 UNITS PO WK Folic Acid (Folic Acid), 800 MCG PO DAILY Insulin Glargine (Lantus Solostar), 25 UNITS SQ BID Magnesium Oxide (Mag-Ox), 400 MG PO BID Multivitamin (Multivitamin), 1 TAB PO QAM Pregabalin (Lyrica), 200 MG PO BID Physical Exam Vital Signs Date Time Temp Pulse Resp B/P (MAP) Pulse Ox O2 Delivery O2 Flow Rate FiO2 09/21/17 18:38 90 20 174/98 96 Nasal Cannula 09/21/17 18:09 108 20 198/118 96 Nasal Cannula 2.0 09/21/17 17:09 107 09/21/17 16:58 108 18 188/116 96 Nasal Cannula 2.0 09/21/17 16:58 90 Room Air 09/21/17 16:42 95 Room Air 09/21/17 16:40 93 Room Air 09/21/17 16:18 36.3 107 18 174/109 96 Room Air General: no distress Eyes: normal inspection, PERLL Respiratory: chest non tender, clear to auscultation, normal breath sounds, no respiratory distress, no accessory muscle use Cardiac: irregular rate and rhythm, no rub or gallop, no murmur, no edema, no jvd GI/: active bowel sounds, no abd pain or tenderness, soft, non distended Extremities: normal range of motion, normal strength, non tender Neuro/Psych: alert and oriented x 3, normal mood and affect Skin: normal color, dry Diagnostics Laboratory Results Results Past 24 Hours Test 09/21/17 16:35 09/21/17 16:43 Range/Units White Blood Count 5.31 4.8-10.8 K/uL Red Blood Count 4.70 4.2-5.4 M/uL Hemoglobin 14.7 12.0-16.0 g/dL Hematocrit 44.5 37-47 % Mean Corpuscular Volume 94.7 80-100 fL Mean Corpuscular Hemoglobin 31.3 25-34 pg Mean Corpuscular Hemoglobin Concent 33.0 32-36 g/dl Platelet Count 137 130-400 K/uL Mean Platelet Volume 12.5 7.4-10.4 fL Neutrophils (%) (Auto) 70.9 % Lymphocytes (%) (Auto) 19.8 % Monocytes (%) (Auto) 5.8 % Eosinophils (%) (Auto) 2.1 % Basophils (%) (Auto) 0.8 % Neutrophils # (Auto) 3.77 1.4-6.5 K/uL Lymphocytes # (Auto) 1.05 1.2-3.4 K/uL Monocytes # (Auto) 0.31 0.11-0.59 K/uL Eosinophils # (Auto) 0.11 0-0.5 K/uL Basophils # (Auto) 0.04 0-0.2 K/uL RDW Standard Deviation 53.0 36.4-46.3 fL RDW Coefficient of Variation 15.2 11.5-14.5 % Immature Granulocyte % (Auto) 0.6 % Immature Granulocyte # (Auto) 0.03 0.00-0.02 K/uL Sodium Level 140 136-145 mmol/L Potassium Level 5.1 3.5-5.1 mmol/L Chloride Level 106 98-107 mmol/L Carbon Dioxide Level 24 21-32 mmol/L Anion Gap 10.0 3-11 mmol/L Blood Urea Nitrogen 33 7-18 mg/dl Creatinine 1.52 0.60-1.20 mg/dl Est Creatinine Clear Calc Drug Dose 31.9 ml/min Estimated GFR () 38.2 Estimated GFR (Non- 33.0 BUN/Creatinine Ratio 21.5 10-20 Random Glucose 325 70-99 mg/dl Calcium Level 8.7 8.5-10.1 mg/dl Magnesium Level 1.7 1.8-2.4 mg/dl Total Bilirubin 0.5 0.2-1 mg/dl Direct Bilirubin 0-0.2 mg/dl Aspartate Amino Transf (AST/SGOT) 66 15-37 U/L Alanine Aminotransferase (ALT/SGPT) 65 12-78 U/L Alkaline Phosphatase 76 45-117 U/L Total Creatine Kinase 66 26-192 U/L Creatine Kinase MB 1.5 0.5-3.6 ng/ml Creatine Kinase MB Ratio 2.3 0-3.0 Troponin I < 0.015 0-0.045 ng/ml Total Protein 7.3 6.4-8.2 gm/dl Albumin 3.7 3.4-5.0 gm/dl Beta-Hydroxybutyric Acid 0.2-2.81 mg/dL Chemistry Specimen Hemolysis Bedside Troponin I < 0.030 0-0.045 ng/ml Diagnostic Radiology CHEST ONE VIEW PORTABLE CLINICAL HISTORY: Atypical chest pain COMPARISON STUDY: July 2017 FINDINGS: The patient was imaged in a somewhat apical lordotic fashion. There is a left-sided A-Port catheter unchanged in position. The heart remains enlarged. The left hemidiaphragm remains obscured. The left heart border is indistinct. Left basilar scarring is suspected. There are postsurgical changes of the left apex.[ IMPRESSION: 1. Persistent cardiomegaly 2. Postsurgical changes of the left 3. Indistinctness of the left heart border and left hemidiaphragm, likely secondary to a combination of technical factors and left sided scarring. 4. If symptoms persist, a PA and lateral study might be of benefit for further evaluation EKG Likely atrial flutter Rightward axis ST & T wave abnormality, consider lateral ischemia Abnormal ECG Confirmed by Mo Manuel ([id number]) on 09/21/2017 5:16:26 PM Impression Assessment and Plan Ms. Hagen is here for unstable angina and A.fib with RVR Unstable angina, chest pain, A.fib RVR, diastolic CHF - admit telemetry - 5 mg IV lopressor now - continue home coreg, diltiazem, metoprolol, amiodarone, apixaban - prn morphine for chest pain - EKG showed lateral ischemia, trop wnl - will continue to trend - EKG with chest pain - consult cardiology - Echo Elevated creatinine - creatinine 1.52 - baseline is around 1.3 - Gentle IVF - repeat prp in am DMII with hyperglycemia and neuropathy - patient's bsg 325 - continue home lantus and add ss - bsgs ac & hs - continue Lyrica Hypomagnesemia - 1 g mag IV now I personally interviewed and examined the patient. I agree with history of present illness and physical exam mentioned above, I also performed my own history taking and examination. Past medical history and review of system has been obtained by myself I reviewed all pertinent labs and studies Reviewed current medications I discussed and formulated of the assessment and plan mentioned above. Please refer to the Summary mentioned below. 77-year-old female with significant past medical history for cardiac disease, presented to the ED with persistent chest pain. Patient did have a fall and intracranial hemorrhage status post craniectomy about a year ago, since then she was told she is not a candidate for any aspirin. Also patient is not taking any nitroglycerin but she does not remember why. In ED she was found to have A. fib with RVR with elevated blood pressure. Patient with giving IV beta-suraj 2, patient pain improved to 4 out of 10. Sensate that she takes morphine for pain, morphine was ordered. Troponin is negative, EKG showed some ST-T wave changes but no ST elevation. Minimal depression in lateral leads, likely rate related. Cardiology was consulted patient will be admitted to telemetry. Serial cardiac enzymes ordered. General Appearance: not in acute distress Eyes: normal Sclerae, extraocular muscle intact ENT: hearing grossly normal Neck: supple Respiratory/Chest: normal air entry bilateral ,no respiratory distress, no accessory muscle use Cardiovascular: regular rate, rhythm, no murmur Abdomen: non tender, soft, no masses Extremities: no edema Neurologic/Psychiatric: Awake alert oriented times place and person moves all extremities sensation intact cranial nerves II-12 appear to be intact Skin: normal color, warm/dry, no rash Suhail Rubalcava MD, [facility] Advanced Directives Existing Advance Directive: No Existing Living Will: No Existing Power of Business Data Analyst: No Existing Health Care Proxy: No Resuscitation Status DNR VTE Prophylaxis Will order VTE Prophylaxis: Yes
[2017-09-21 22:22] VITALS: BP 160/88; PULSE 97; TEMP 36.9; O2SAT 95; Ht 162.6 cm; Wt 90.3 kg
[2017-09-21] MEDS ORDERED: MAGNESIUM SULFATE 1GM / D5W 1 GM in PREMIXED IN D5W 100 ML IV ONE (23:00)
[2017-09-21 23:35] VITALS: BP 155/80; PULSE 100; TEMP 36.8; O2SAT 97
[2017-09-21] MEDS: MAGNESIUM OXIDE 400 MG TAB PO SCH (23:49)
[2017-09-21] MEDS: CALCIUM 600MG + VIT D 400 IU TAB PO SCH (23:49)
[2017-09-21] MEDS: CARVEDILOL 6.25 MG TAB PO SCH (23:49)
[2017-09-21] MEDS: PREGABALIN 100 MG CAP PO SCH (23:50)
[2017-09-21] MEDS: APIXABAN 2.5 MG TAB PO SCH (23:50)
[2017-09-21] MEDS ORDERED: INSDGIPEN SQ (23:54)
[2017-09-22] VITALS (9 sets, daily range): BP systolic 111–157; BP diastolic 55–95; PULSE 59–100; TEMP 36.6–36.8; O2SAT 93–97
[2017-09-22] MEDS: INSULIN ASPART 100 UNITS/ML 3 ML PEN SC SCH ×3 (00:07→11:38)
[2017-09-22] MEDS: INSULIN GLARGINE SOLOSTAR 100 UNITS/ML 3 ML PEN SQ SCH ×2 (00:08→09:00)
[2017-09-22 06:55] LABS: HEMATOCRIT 39.8 % (37-47); HEMOGLOBIN 12.8 g/dL (12.0-16.0); MEAN CELL VOLUME 94.5 fL (80-100); MEAN CORPUSCULAR HEMOGLOBIN 30.4 pg (25-34); MEAN CORPUSCULAR HGB CONC 32.2 g/dl (32-36); MEAN PLATELET VOLUME 11.9 fL (7.4-10.4); PLATELET COUNT 125 K/uL (130-400); RED CELL DISTRIBUTION WIDTH CV 15.5 % (11.5-14.5); RED CELL DISTRIBUTION WIDTH SD 53.5 fL (36.4-46.3); WHITE BLOOD COUNT 4.86 K/uL (4.8-10.8)
[2017-09-22 07:27] LABS: CALCIUM 8.4 mg/dl (8.5-10.1); CREATININE 1.18 mg/dl (0.60-1.20); POTASSIUM 4.2 mmol/L (3.5-5.1)
[2017-09-22] MEDS ORDERED: MULTIVITAMIN TAB PO SCH (09:00)
[2017-09-22] MEDS ORDERED: FoLIC ACID TAB 400 MCG TAB PO SCH (09:00)
[2017-09-22] MEDS ORDERED: DILTIAZEM HCL 120 MG CAPCR PO SCH (09:00)
[2017-09-22] MEDS ORDERED: VITAMIN B COMPLEX TAB PO SCH (09:00)
[2017-09-22] MEDS ORDERED: AMIODARONE 200 MG TAB PO SCH (09:00)
[2017-09-22] MEDS ORDERED: ASCORBIC ACID 500 MG TAB PO SCH (09:00)
[2017-09-22] MEDS: MAGNESIUM OXIDE 400 MG TAB PO SCH (09:12)
[2017-09-22] MEDS: CARVEDILOL 6.25 MG TAB PO SCH (09:12)
[2017-09-22] MEDS: CALCIUM 600MG + VIT D 400 IU TAB PO SCH (09:13)
[2017-09-22] MEDS: APIXABAN 2.5 MG TAB PO SCH (09:17)
[2017-09-22] MEDS: PREGABALIN 100 MG CAP PO SCH (09:17)
--- NOTE | 2017-09-22 12:57 | [facility] Operative Report ---
Operative Report Date of Service Sep 22, 2017. 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 She understood such and wished to proceed. She was taken to the cardiac catheterization suite holding area. A general anesthetic was administered by the Anesthesiology Service. Once appropriately anesthetized, the patient was cardioverted using 200 joules delivered in a biphasic fashion. This returned the patient to sinus rhythm. The patient tolerated procedure well , there were no immediate complications. Patient was neurologically intact subsequent to the procedure. Impression: Successful cardioversion from atrial flutter to normal sinus rhythm I attest to the content of the Intraoperative Record and any orders documented therein. Any exceptions are noted below.
--- NOTE | 2017-09-22 13:04 | Anesthesiology Progress Note ---
Anesthesia Post Op Note Date & Time Sep 22, 2017 at 13:04 Vital Signs Pain Intensity: 0 Vital Signs Past 12 Hours Date Time Temp Pulse Resp B/P (MAP) Pulse Ox O2 Delivery O2 Flow Rate FiO2 09/22/17 12:56 85 16 113/58 96 Nasal Cannula 4 09/22/17 12:55 85 16 113/58 96 Nasal Cannula 4 09/22/17 12:50 85 16 147/85 96 Nasal Cannula 4 09/22/17 12:00 Room Air 09/22/17 11:34 36.6 100 18 111/82 (92) 93 Room Air 09/22/17 08:00 Room Air 09/22/17 07:56 36.7 89 18 157/95 (115) 96 09/22/17 04:00 Nasal Cannula 2.0 09/22/17 03:53 36.8 96 19 149/80 (103) 97 Nasal Cannula 2.0 Notes Mental Status: alert / awake / arousable, participated in evaluation Pt Amnestic to Procedure: Yes Nausea / Vomiting: adequately controlled Pain: adequately controlled Airway Patency, RR, SpO2: stable & adequate BP & HR: stable & adequate Hydration State: stable & adequate Anesthetic Complications: no major complications apparent
--- NOTE | 2017-09-22 15:25 | Family Medicine Progress Note ---
Progress Note Date of Service Sep 22, 2017. Subjective Pt resting comfortably in bed, describes long h/o afib, says she can feel it when she has it, and says she has felt it for months. Says her pain with the afib sensation was new for her however, began as a pain coming from deep in her pelvis all the way to her chest, then settled in her left upper abdomen area. When she mentioned it to her care nurse, they recommended she get to the hospital immediately. Pt follows with Dr. Iraheta in the clinic. Lives with her in assisted living. Currently denies shortness of breath, abdominal pain, diarrhea, constipation, headache. ROS See HPI for pertinent positives and negatives. Objective Physical Exam Notes: GENERAL: Awake, alert, in no distress HENT: Normocephalic, atraumatic. EYES: Normal conjunctiva. Sclera non-icteric. NECK: Supple. No nuchal rigidity. FROM. No JVD. + carotid bruit appreciated over Left side RESPIRATORY: Slight crackles heard at left base CARDIAC: Irregularly irregular rate. Extremities warm and well perfused. Pulses equal. ABDOMEN: Soft, non-distended. No tenderness to palpation. No rebound or guarding. No masses. LOWER EXTREMITIES: Calves are equal size bilaterally and non-tender. No edema. No discoloration. NEURO: No motor deficits noted. SKIN: No rash or jaundice noted. Assessment and Plan 77 yoF here for unstable angina and A.fib with RVR Unstable angina, chest pain, A.fib RVR, diastolic CHF - pain improved, pt still feels her afib though - 5 mg IV lopressor given overnight. Currently rate controled 80s-90s - NPO except meds - continue home coreg, diltiazem, metoprolol, amiodarone, apixaban - prn morphine for chest pain (2mg given last night, none since, denies pain currently) - EKG showed lateral ischemia, trop wnl - will continue to trend - cardiology consulted, cardioversion done today. Pt tolerated well, is resting in her room with at bedside, eating. - Echo Elevated creatinine - resolved - Gentle IVF given -- will DC DMII with hyperglycemia and neuropathy - patient's bsg 325 - continue home lantus and add ss - bsgs ac & hs - continue Lyrica Hypomagnesemia - 1 g mag IV now Resident Tracking Resident Involvement: Resident Care Provided Care Provided: Adult Hospital Medicine
--- NOTE | 2017-09-22 16:28 | Discharge Instructions ---
Discharge Instructions Date of Service Sep 22, 2017. Admission Reason for Admission: Unstable Angina Discharge Discharge Diagnosis / Problem: Unstable Angina Discharge Goals Goal(s): Decrease discomfort, Improve function, Increase independence, Improve disease control, Learn about illness, Diagnostic testing, Therapeutic intervention Activity Recommendations Activity Limitations: per Instructions/Follow-up section . Instructions / Follow-Up Instructions / Follow-Up You were admitted for chest pain that was new for you. You were found to have atrial flutter Given your worsening symptoms, cardiology decided to treat your rhythm with cardioversion. You tolerated the procedure well, and your heart rate is back to normal today. However, your atrial fibrillation will likely return as you know, cardioversion is not a cure. Please continue your medications as prescribed, and keep your follow up appointment with Oliver Gilbert on October 03. Be well A [facility] Current Hospital Diet Patient's current hospital diet: AHA Diet (Heart Healthy) Discharge Diet Recommended Diet: AHA Diet (Heart Healthy), Diabetes Type 2 Diet Pending Studies Studies pending at discharge: no Laboratory Results Hemoglobin A1c Test 08/10/17 05:06 Range/Units Estimated Average Glucose 235 mg/dl Hemoglobin A1c 9.8 H 4.5-5.6 % Medical Emergencies . Who to Call and When: Medical Emergencies: If at any time you feel your situation is an emergency, please call 911 immediately. . Non-Emergent Contact Non-Emergency issues call your: Primary Care Provider, Players Assistant Call Non-Emergent contact if: your pain is not controlled, your pain is worsening, your pain is unusual for you . . "Provider Documentation" section prepared by Brenda Pond. . Resident Tracking Resident Involvement: Resident Care Provided Care Provided: Adult Hospital Medicine
--- NOTE | 2017-09-22 16:45 | Discharge Summary ---
Discharge Summary Date of Service Sep 22, 2017. Discharge Summary Admission Date: Sep 21, 2017 at 19:47 Discharge Date: Sep 22, 2017 Discharge Disposition: Home Principal Diagnosis: Unstable angina Problems/Secondary Diagnoses: Atrial flutter T2DM Immunizations: Have You Had Influenza Vaccine: Yes Influenza Vaccine Date: Jul 20, 2013 History of Tetanus Vaccine?: Yes Tetanus Immunization Date: Sep 18, 2007 History of Pneumococcal: Yes Pneumococcal Date: Apr 18, 1998 History of Hepatitis B Vaccine: No Procedures: Date of Service Sep 22, 2017. Operative Report Procedure performed: Cardioversion Indication: Atrial fibrillation Staff supervisor public health nursing: Mo Manuel MD Procedure in detail: The patient was informed of the risks benefits and alternatives to the intended procedure. She understood such and wished to proceed. She was taken to the cardiac catheterization suite holding area. A general anesthetic was administered by the Anesthesiology Service. Once appropriately anesthetized, the patient was cardioverted using 200 joules delivered in a biphasic fashion. This returned the patient to sinus rhythm. The patient tolerated procedure well , there were no immediate complications. Patient was neurologically intact subsequent to the procedure. Impression: Successful cardioversion from atrial flutter to normal sinus rhythm I attest to the content of the Intraoperative Record and any orders documented therein. Any exceptions are noted below. Consultations: Cardiology Medication Reconciliation Continued Medications: Amiodarone HCl (Amiodarone HCl) 200 Mg Tab 200 MG PO DAILY Apixaban (Eliquis) 5 Mg Tab 5 MG PO BID Ascorbic Acid (Vitamin C) 500 Mg Tab 500 MG PO QAM B Complex W/ C (Vitamin B Complex-C) 1 Cap Cap 1 CAP PO QAM Buspirone HCl (Buspirone HCl) 5 Mg Tab 5 MG PO BID Calcium Carbonate-Vitamin D (Calcium) 1 Tab Tab 1 TAB PO BID Carvedilol (Carvedilol) 6.25 Mg Tab 6.25 MG PO BID Diltiazem Hcl Coated Beads (Cartia Xt) 120 Mg Cap 120 MG PO DAILY Ergocalciferol (Vitamin D 50280 Unit) 50,000 Unit Cap 84648 UNITS PO WK TAKE EVERY TUESDAY Folic Acid (Folic Acid) 800 Mcg Tab 800 MCG PO DAILY Insulin Glargine (Lantus Solostar) 100 Unit/Ml Inj 25 UNITS SQ BID, PEN Magnesium Oxide (Mag-Ox) 400 Mg Tab 400 MG PO BID Multivitamin (Multivitamin) Tab 1 TAB PO QAM, 0 Refills Pregabalin (Lyrica) 200 Mg Cap 200 MG PO BID, CAP Discharge Exam Pt resting comfortably in bed, describes long h/o afib, says she can feel it when she has it, and says she has felt it for months. Says her pain with the afib sensation was new for her however, began as a pain coming from deep in her pelvis all the way to her chest, then settled in her left upper abdomen area. When she mentioned it to her care nurse, they recommended she get to the hospital immediately. Pt follows with Dr. Iarheta in the clinic. Lives with her in assisted living. Currently denies shortness of breath, abdominal pain, diarrhea, constipation, headache. ROS See HPI for pertinent positives and negatives. Physical Exam Notes: GENERAL: Awake, alert, in no distress HENT: Normocephalic, atraumatic. EYES: Normal conjunctiva. Sclera non-icteric. NECK: Supple. No nuchal rigidity. FROM. No JVD. + carotid bruit appreciated over Left side RESPIRATORY: Slight crackles heard at left base CARDIAC: Regular rate. Extremities warm and well perfused. Pulses equal. ABDOMEN: Soft, non-distended. No tenderness to palpation. No rebound or guarding. No masses. LOWER EXTREMITIES: Calves are equal size bilaterally and non-tender. No edema. No discoloration. NEURO: No motor deficits noted. SKIN: No rash or jaundice noted. Hospital Course Mrs. Hagen is a 77 year old Female here for unstable angina and A.fib with RVR. Describes long h/o afib, says she can feel it when she has it, and says she has felt it for months. Says her pain with the afib sensation was new for her however, began as a pain coming from deep in her pelvis all the way to her chest , then settled in her left upper abdomen area. When she mentioned it to her care nurse, they recommended she get to the hospital immediately. Pt follows with Dr. Iraheta in the clinic. Lives with her in assisted living. Pt was admitted due to the new onset of the pain, and treated with cardioversion. Pt's rate was normal sinus following the procedure and deemed stable for discharge. Answered all pt's questions. Follow up scheduled with cardiology on October 03. For more details of hospital stay, please see below. It was a pleasure participating in Mrs. Hagen's care. Unstable angina, chest pain, A.fib RVR, diastolic CHF - 5 mg IV lopressor given overnight. - EKG showed lateral ischemia, troponin normal. - cardiology consulted, cardioversion done today as above. - Normal sinus rhythm after procedure. Stable for discharge. Elevated creatinine - Gentle IVF given, resolved. 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 DMII with hyperglycemia and neuropathy - continue home insulin - continue Lyrica Hypomagnesemia - repleted, resolved. Resident Physician Supervision Note: I was present with Dr. Pond during the history and exam. I discussed the case with the resident and agree with the findings and plan as documented in the note. I also discussed the case with cardiology. Documented By: Jacky Singleton Total Time Spent: Less than 30 minutes This includes examination of the patient, discharge planning, medication reconciliation, and communication with other providers. Discharge Instructions Please refer to the electronic Patient Visit Report (Discharge Instructions) for additional information. Follow-Up Oliver Gilbert October 03. Additional Copies To Lizet Jeter D.O.
--- NOTE | 2017-09-23 01:10 | CARDIOLOGY CONSULTATION ---
DATE OF CONSULTATION: 09/22/2017 CONSULTATION REQUESTED BY: Dr. Edy Rubalcava. REASON FOR CONSULTATION: Chest pain, atrial fibrillation. HISTORY OF PRESENT ILLNESS: Mrs. Hagen is a 77-year-old woman with a complex cardiac history as outlined below, who is known to me from the outpatient setting and prior hospital visits. She has had longstanding atrial fibrillation with recent RVR which has been difficult to control. More recently, she was started on amiodarone and has been on Eliquis since 07/2017. She was admitted overnight in the setting of recurrent chest pain. She states that she has had chest pain intermittently for the last month. Current symptoms worse than prior with associated shortness of breath. Denied any palpitations. Denied any presyncope. Upon arrival, the patient was tachycardic to the 110s. Her EKG showed atrial fibrillation with lateral ST depressions which she has had on prior EKGs with RVR. Troponins have been negative x2, and at the time of the interview, she was largely chest pain free. PAST MEDICAL HISTORY: 1. Multivessel coronary artery disease, status post prior multivessel stenting. 2. 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 3. Paroxysmal atrial fibrillation. 4. Hypertension. 5. Dyslipidemia. 6. Diabetes. 7. Chronic kidney disease. 8. Large B cell lymphoma, in remission. 9. Prior subdural hematoma in 11/2016. FAMILY HISTORY: Mother had an AK as did brother. SOCIAL HISTORY: She is . She is a nonsmoker. Denies any alcohol or illicit drugs. HOME MEDICATIONS: Include amiodarone 200, Eliquis 5 mg b.i.d., vitamin C, B complex vitamin, buspirone, calcium carbonate, vitamin D, carvedilol 6.25 b.i.d., diltiazem 120 mg daily, ergocalciferol 50,000 units q. weekly, folic acid, insulin glargine, magnesium oxide, multivitamin and pregabalin. REVIEW OF SYSTEMS: Ten-point review of systems completed and otherwise negative other than listed in HPI. PHYSICAL EXAMINATION: VITAL SIGNS: Temperature 36.6, pulse 100, blood pressure 113/58, satting 96% on 4 liters. GENERAL: The patient appears comfortable, in no acute distress. HEENT: Sclerae anicteric. Oropharynx is clear. LUNGS: Clear to auscultation bilaterally. CARDIAC: She has an irregularly irregular rhythm with no murmurs, with 2/6 holosystolic murmur. ABDOMEN: Soft, nontender, nondistended with positive bowel sounds. EXTREMITIES: Warm. She has no significant lower extremity edema. SKIN: Shows no rashes or lesions. DATA: CBC reviewed, within normal limits. BMP remarkable for BUN 28, creatinine of 1.2. Troponins negative x2. Chest x-ray showed no acute cardiopulmonary process. IMPRESSION AND PLAN: 1. Atypical chest pain. 2. Atrial fibrillation with rapid ventricular response. 3. 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 4. Hypertension. 5. History of subdural hematoma. Mrs. Hagen is here with atypical chest pain notable over the last month, worse in the presenting days. This is in the setting of atrial fibrillation with RVR. At this point, the patient has been on anticoagulation for more than a month and has been on amiodarone for several weeks. I feel the patient will benefit from a symptomatic standpoint from proceeding with electrical cardioversion and we will plan to arrange for later today. In the interim, continue anticoagulation and the amiodarone on discharge. Assuming successful conversion, may need to stop diltiazem. Further recommendations pending completion of cardioversion. Thank you for consultation.
[2017-09-24] MEDS ORDERED: ERGOCALCIFEROL 50,000 INTER.UNIT CAP PO SCH (09:00)
== END 2017-09-22 17:44 | disposition home or self-care (01) | DRG 309 ==
LOC: C.EDB 16:13 → C.2E 19:47 → ENRESERV 21:19
PROVIDERS: ADMIT Internal Medicine; ATTEND Internal Medicine
DX: I48.0 Paroxysmal atrial fibrillation (principal); I50.32 Chronic diastolic (congestive) heart failure; I13.0 Hypertensive heart and chronic kidney disease with heart failure and stage 1 through stage 4 chronic kidney disease, or unspecified chronic kidney disease; E78.5 Hyperlipidemia, unspecified; G62.9 Polyneuropathy, unspecified; I16.0 Hypertensive urgency; N18.3 Chronic kidney disease, stage 3 (moderate); E83.42 Hypomagnesemia; E11.40 Type 2 diabetes mellitus with diabetic neuropathy, unspecified; E11.65 Type 2 diabetes mellitus with hyperglycemia; Z66 Do not resuscitate; I42.2 Other hypertrophic cardiomyopathy; I25.10 Atherosclerotic heart disease of native coronary artery without angina pectoris; I48.92 Unspecified atrial flutter; Z96.659 Presence of unspecified artificial knee joint; I25.2 Old myocardial infarction; Z88.2 Allergy status to sulfonamides; Z88.6 Allergy status to analgesic agent; Z88.5 Allergy status to narcotic agent; Z91.038 Other insect allergy status; Z91.013 Allergy to seafood; Z85.72 Personal history of non-Hodgkin lymphomas; Z80.9 Family history of malignant neoplasm, unspecified; Z83.3 Family history of diabetes mellitus; Z82.49 Family history of ischemic heart disease and other diseases of the circulatory system

== ENCOUNTER → 2017-10-03 | Outpatient (CLI) | payer OTHER, BC ==
[~2017-10-03] MED LIST changes: -ANT25 PO; +APIX1TAB3 PO; +BSP/5 PO; -CARV3.122 PO; -CHOL100040 PO; +CRD200 PO; +CRG625 PO; +DILT120C43 PO; -DILT60CA PO; +ERGO500011 PO; +FOLI800T PO; +INSDGIPEN SQ; +MAGN400T6 PO; -MGNO400 PO
[2017-10-03 16:29] LABS: ALBUMIN 3.4 gm/dl (3.4-5.0); TOTAL PROTEIN 6.6 gm/dl (6.4-8.2)
== END | disposition home or self-care (01) ==
LOC: C.LAB1850 13:57
PROVIDERS: ATTEND Internal Medicine Interventional Cardiology
DX: I48.91 Unspecified atrial fibrillation (principal)

== ENCOUNTER → 2018-02-07 | Outpatient (CLI) | payer OTHER, BC | END | disposition home or self-care (01) | LOC: C.PATH 07:53 | PROVIDERS: ATTEND Family Medicine | DX: R22.32 Localized swelling, mass and lump, left upper limb (principal) ==

== ENCOUNTER → 2018-03-06 | Outpatient (CLI) | payer OTHER, BC ==
--- NOTE | 2018-03-06 13:53 | DIAGNOSTIC IMAGING REPORT ---
ULTRASOUND OF THE PELVIS CLINICAL HISTORY: Right groin pain. COMPARISON STUDY: Pelvic CT dated 06/23/2017. TECHNIQUE: Real-time, grayscale, and color flow sonography of the pelvis is performed transabdominally. Images are reviewed in the transverse and longitudinal planes. FINDINGS: Uterus: The uterus is surgically absent Ovaries: The ovaries are not identified and reported surgically absent. Pelvis: There is no free fluid in the cul-de-sac. No concerning adnexal lesion is seen. IMPRESSION: No acute sonographic abnormality is identified in the pelvis. The uterus and ovaries are reported surgically absent. Electronically signed by: Eliceo Hart M.D. 03/06/2018 1:51 PM Dictated Date/Time: 03/06/2018 1:50 PM
== END | disposition home or self-care (01) ==
LOC: C.ULTR 12:56
PROVIDERS: ATTEND Family Medicine
DX: R10.9 Unspecified abdominal pain (principal)

== ENCOUNTER → 2018-03-06 | Outpatient (CLI) | payer OTHER, BC ==
[2018-03-06 14:53] LABS: HEMATOCRIT 41.9 % (37-47); HEMOGLOBIN 13.5 g/dL (12.0-16.0); MEAN CELL VOLUME 94.8 fL (80-100); MEAN CORPUSCULAR HEMOGLOBIN 30.5 pg (25-34); MEAN CORPUSCULAR HGB CONC 32.2 g/dl (32-36); RED CELL DISTRIBUTION WIDTH CV 15.4 % (11.5-14.5); RED CELL DISTRIBUTION WIDTH SD 53.5 fL (36.4-46.3); WHITE BLOOD COUNT 5.43 K/uL (4.8-10.8)
[2018-03-06 15:12] LABS: MEAN PLATELET VOLUME 12.5 fL (7.4-10.4); PLATELET COUNT 129 K/uL (130-400)
[2018-03-06 15:19] LABS: ALBUMIN 3.4 gm/dl (3.4-5.0); BLOOD UREA NITROGEN 25 mg/dl (7-18); CALCIUM 8.5 mg/dl (8.5-10.1); CARBON DIOXIDE 30 mmol/L (21-32); CREATININE 1.35 mg/dl (0.60-1.20); GLUCOSE 144 mg/dl (70-99); PHOSPHORUS 2.7 mg/dl (2.5-4.9); POTASSIUM 4.4 mmol/L (3.5-5.1); SODIUM 137 mmol/L (136-145)
== END | disposition home or self-care (01) ==
LOC: C.LAB1850 13:54
PROVIDERS: ATTEND Internal Medicine Nephrology
DX: I12.9 Hypertensive chronic kidney disease with stage 1 through stage 4 chronic kidney disease, or unspecified chronic kidney disease (principal); N18.3 Chronic kidney disease, stage 3 (moderate); C85.90 Non-Hodgkin lymphoma, unspecified, unspecified site; E55.9 Vitamin D deficiency, unspecified; I48.91 Unspecified atrial fibrillation

== ENCOUNTER 2018-08-08 16:25 | Inpatient (IN) ==
[2018-08-08] MEDS ORDERED: ONDANSETRON INJ 2 MG/ML 2 ML VIAL IV STA (17:13)
[2018-08-08] MEDS ORDERED: SODIUM CHLORIDE 0.9% 1000ML 1,000 ML IV SCH (17:15)
[2018-08-08 17:41] LABS: Alanine Aminotransferase 33 U/L (12-78); Albumin Level 3.4 gm/dl (3.4-5.0); Aspartate Aminotransferase 20 U/L (15-37); BUN Creatinine Ratio 20.3 (10-20); Blood Urea Nitrogen 38 mg/dl (7-18); Carbon Dioxide 27 mmol/L (21-32); Chloride 102 mmol/L (98-107); Creatinine Clr Calc Pharmacy 25.6 ml/min; Est GFR (African American) 29.5; Est GFR (Non-African American) 25.5; Glucose 187 mg/dl (70-99); Magnesium 1.5 mg/dl (1.8-2.4); Potassium 4.2 mmol/L (3.5-5.1); Sodium 139 mmol/L (136-145)
[2018-08-08 17:43] LABS: Albumin Globulin Ratio 0.9 (0.9-2); Alkaline Phosphatase 80 U/L (45-117); Bilirubin,Total 0.7 mg/dl (0.2-1); Globulin 3.9 gm/dl (2.5-4.0); Total Protein 7.3 gm/dl (6.4-8.2)
--- NOTE | 2018-08-08 17:44 | XRay Report ---
XR chest 1V portable CLINICAL HISTORY: sob COMPARISON STUDY: 07/04/2018 FINDINGS: The heart is enlarged. There is a left-sided A-Port catheter present. There is continued ra diographic evidence of congestive failure with pulmonary edema. Suspected trace pleural effusions.[ IMPRESSION: Stable findings. Persistent cardiomegaly and radiographic evidence of congestive failure with pulmonary edema Electronically signed by: Olaf Muir M.D. 08/08/2018 5:42 PM
[2018-08-08] MEDS ORDERED: PROMETHAZINE HCL 12.5 MG in SODIUM CHLORIDE 0.9% 50 ML IV STA (17:45)
[2018-08-08] MEDS ORDERED: cefTRIAXone SODIUM 1,000 MG/50 ML BAG IV STA (17:49)
[2018-08-08 17:58] LABS: Basophils # (auto) 0.01 K/uL (0-0.2); Basophils % (auto) 0.2 %; Eosinophils # (auto) 0.01 K/uL (0-0.5); Eosinophils % (auto) 0.2 %; Hemoglobin 12.7 g/dL (12.0-16.0); Immature Granulocytes # (auto) 0.05 K/uL (0.00-0.02); Immature Granulocytes % (auto) 1.2 %; Lymphocytes # (auto) 0.14 K/uL (1.2-3.4); Lymphocytes % (auto) 3.3 %; Mean Corpuscular Hgb Conc 31.8 g/dL (32-36); Mean Corpuscular Volume 96.2 fL (80-100); Mean Platelet Volume 12.2 fL (7.4-10.4); Monocytes # (auto) 0.05 K/uL (0.11-0.59); Monocytes % (auto) 1.2 %; Neutrophils # (auto) 3.99 K/uL (1.4-6.5); Neutrophils % (auto) 93.9 %; Platelet Count 125 K/uL (130-400); RBC Morphology Unremarkable; RDW Coefficient of Variation 15.8 % (11.5-14.5); Red Blood Count 4.16 M/uL (4.2-5.4); White Blood Count 4.25 K/uL (4.8-10.8)
[2018-08-08 18:10] LABS: Appearance Urine Clear (Clear); Bacteria Urine Automated 3+ (Negative); Bilirubin Urine Negative (Negative); Cast Urine Automated 0 /lpf (0-5); Color Urine Yellow; Epithelial Cell Urine Auto 0-5 /lpf (0-5); Glucose Urine UA Negative (Negative); Ketones Urine Negative (Negative); Leukocyte Esterase Urine Trace (Negative); Nitrite Urine Negative (Negative); Protein Urine 1+ (Negative); Urobilinogen Urine Negative (Negative); WBC Urine Automated >30 /hpf (0-5)
[2018-08-08 18:19] LABS: Troponin I < 0.015 ng/ml (0-0.045)
--- NOTE | 2018-08-08 18:26 | CT Scan Report ---
CT SCAN OF THE ABDOMEN AND PELVIS WITHOUT CONTRAST CLINICAL HISTORY: Left flank pain. A urinary tract infection. COMPARISON STUDY: 06/26/2018 TECHNIQUE: CT scan of the abdomen and pelvis was performed from the lung bases to the proximal femurs . Images are reviewed in the axial, sagittal, and coronal planes. IV contrast was not administered fo r this examination. A dose lowering technique was utilized adhering to the principles of ALARA. CT DOSE: 935.74 mGycm FINDINGS: Lower chest: The heart is enlarged. There are coronary artery calcifications present. There are persi stent right dependent bibasilar opacities right greater than left. Liver: The unenhanced liver is normal in size, contour, and attenuation. There is no intrahepatic uzma iary ductal dilatation. Gallbladder: Unremarkable. Spleen: There is a subtle splenic hypodensity, similar to the prior study. A splenic calcification is also evident Pancreas: Unremarkable. Adrenal glands: Unremarkable. Kidneys: The left kidney is atrophic. There is a lower pole calculus. There is mild left-sided periur eteral edema. There is a 2.5 mm distal left ureteral calculus as above the level of the UVJ. Bowel: There are no transition zones indicate bowel obstruction. There is no acute diverticulitis. Th ere are multiple colonic diverticula present. By history the appendix is surgically absent. Peritoneum: There is no intraperitoneal free air or abdominal ascites. There is a blunted intraperito radha fat. Vasculature: Atherosclerotic changes are present. There is no evidence of abdominal aortic aneurysm. Adenopathy: None. Pelvic viscera: The uterus is surgically absent. Skeletal structures: No destructive osseous lesions are seen. IMPRESSION: 1. 2.5 mm distal left ureteral calculus with mild secondary obstructive changes 2. Left-sided nephrolithiasis. Renal atrophy. 3. Diverticulosis. No evidence of acute diverticulitis 4. No evidence of bowel obstruction. No evidence of free air 5. Stable bilateral lower lobe dependent parenchymal opacities Electronically signed by: Olaf Muir M.D. 08/08/2018 6:24 PM
[2018-08-08] MEDS: MAGNESIUM SULFATE / D5W 1 GM/100 ML BAG IV SCH ×3 (19:23→21:45)
--- NOTE | 2018-08-08 20:12 | History & Physical Report ---
Date of Service August 08, 2018 Assessment & Plan (1) Ureterolithiasis: Patient with 2.5mm stone in left ureter, mildly obstructing. UA positive for bacteria. Presently pain and nausea is well controlled. Patient is afebrile, hemodynamically stable, non-septic. Patient had a stone in the past which she passed without difficulty. She is unsure of the size. * Admit to medical floor * Follow urine culture * Urine strainer * Flomax 0.4mg qHS * Ceftriaxone 1gm IV daily - patient received first dose in the ER * Urology consultation - appreciate assistance with this case * Will keep patient NPO after midnight tonight in case of procedure in the morning, although she will most likely pass 2.5mm stone * Patient received gentle IVF in the ER. Will hold off on additional IVF at this time given patient's history of CHF, recent weight gain and faint crackles on exam * Present on Admission?: Yes (2) UTI (urinary tract infection): +UA in presence of stone. Patient hemodynamically stable at present. Patient is not showing evidence of severe allergic reaction to the Bactrim that she took. No skin manifestations or evidence of anaphylaxis * Plan as above. Follow culture, Ceftriaxone, Urology consultation * Continue to monitor for evidence of systemic allergic reaction * Monitor renal function * Present on Admission?: Yes (3) Diabetes: Blood sugar presently 187. Last A1C 8.3 07/05/18. * Will decrease basal insulin to 12u BID as patient to be NPO tonight * ISS * Continue to monitor * (4) CAD (coronary artery disease): CAD s/p AR x 4. Cardiac catheterization 07/06/18 with placement of AWILDA x 2 to RCA. Patient is presently CP free. No concern for cardiac ischemia at this time. Patient is statin intolerant. Per notes she may be started on a PCSK9 inhibitor (Vascepa) as an outpatient to assist with lipid management. She does not take ASA. * Continue Plavix daily * Continue Eliquis daily * Continue Carvedilol * (5) Atrial fibrillation: Patient presently in NSR with PACs per EKG. * Continue Amiodarone * Continue Carvedilol * Continue Eliquis * (6) HTN (hypertension): Blood pressure mildly elevated at present at 168/75 * Continue Carvedilol * Continue to monitor * Present on Admission?: Yes (7) CHF (congestive heart failure): Patient with chronic diastolic CHF. Does not appear to be in florid overload at this time. She has received IVF in the ER. Will not continue additional IVF after that * Carvedilol as above * Continue Lasix at home dose - monitor closely for need for additional dosing while inpatient * (8) JANICE treated with BiPAP: BiPAP qHS (9) Chronic respiratory failure with hypoxia: No respiratory distress at present. Adequate oxygenation/ventilation on NC 2L. Patient wears 2-3L O2 during the day * Continue home O2 * Continue Combivent Present on Admission?: Yes (10) Chronic kidney disease with active medical management without dialysis, stage 3 (moderate): BUN=38, Cr=1.87 at present which is slightly above her baseline. Electrolytes are acceptable, patient is making adequate urine. ?effects of infection, stone, mild prerenal or effects of Bactrim. * Continue to monitor BUN, Cr, electrolytes and UOP * Avoid nephrotoxic medications * Renal dosing where needed * F/E/N - Heplock. Mg given in ER, will continue PO supplementation, repeat Mg level in AM, CC diet and NPO after midnight. Ppx - Patient anticoagulated with Eliquis. Code - DNR per discussion with patient Dispo - Admit to medical floor Present on Admission?: Yes History of Present Illness Chief Complaint: Back pain Primary Care Provider: Lizet Jeter DO Mrs. Hagen is a pleasant 78yo C female with history of CAD s/p AR x 4, recent cardiac catheterization on 07/06/18 with placement of 2 AWILDA to the RCA. She is on Plavix and Eliquis. Also with HTN, DM, CKD III, CHF and AF. Patient was seen by her PCP yesterday with complaints consistent with a UTI. She had a urine dip performed at the office and was started on Bactrim for uncomplicated UTI, however, patient has an allergy listed to Sulfa drugs reaction is GI upset. Patient took a dose of Bactrim last evening with dinner and felt fine. She took her second dose with breakfast then started to experience severe nausea as well as left flank pain with radiation into the groin. She denies fevers, chills, CP, palpitations. Denies SOB, wheeze, rash, swelling of the face/lips/tongue/throat. She does report gaining 4 pounds in the last week, otherwise no complaints. Upon arrival to the ER she was afebrile, mildly hypertensive. CT of the abdomen was performed which revealed a 2.5mm partially obstructing stone in the distal left ureter. UA positive. ER Course: Ceftriaxone 1gm, Magnesium sulfate 1gm, NSS x 1 liter, Phenergan x 12.5mg Allergies Allergy/AdvReac Type Severity Reaction Status Date / Time eptifibatide Allergy Severe ANAPHYLAXIS Verified 08/08/18 18:17 hornet venom Allergy Severe WASP VENOM Verified 08/08/18 18:17 PROTEIN-ANAPHYLAXIS mivacurium Allergy Intermediate palpatation Verified 08/08/18 18:17 s atorvastatin Allergy Unknown MUSCLE PAIN Verified 08/08/18 18:17 ezetimibe Allergy Unknown MUSCLE PAIN Verified 08/08/18 18:17 simvastatin Allergy Unknown MUSCLE PAIN Verified 08/08/18 18:17 warfarin AdvReac Intermediate EXTREME Verified 08/08/18 18:17 BLEEDING TIMES codeine AdvReac Mild VOMITING Verified 08/08/18 18:17 gemfibrozil AdvReac Mild NAUSEA Verified 08/08/18 18:17 meperidine AdvReac Mild VOMITING Verified 08/08/18 18:17 ondansetron AdvReac Mild vomiting Verified 08/08/18 18:17 ranitidine [From Zantac] AdvReac Mild dyspepsia Verified 08/08/18 18:17 cortisone AdvReac Unknown INCREASES Verified 08/08/18 18:17 SUGAR AND VOMITING? hydralazine AdvReac Unknown VOMITING Verified 08/08/18 18:17 ibuprofen AdvReac Unknown VOMITING Verified 08/08/18 18:17 AND DIARRHEA iodine AdvReac Unknown SHELLFISH Verified 08/08/18 18:17 - VOMITING shellfish derived AdvReac Unknown VOMITING Verified 08/08/18 18:17 Sulfa (Sulfonamide AdvReac Unknown VOMITING Verified 08/08/18 18:17 Antibiotics) HMG-CoA-R Inhibitors AdvReac Intermediate STATINS - Uncoded 08/08/18 18:17 NAUSEA/RASH Home Medications Home Medications Medication Instructions Recorded Confirmed Type amiodarone [Pacerone] 100 mg PO BID 06/20/18 08/08/18 History ascorbic acid (vitamin C) [Vitamin 1 g PO DAILY 06/20/18 08/08/18 History C] buspirone 5 mg PO BID 06/20/18 08/08/18 History ergocalciferol (vitamin D2) 50,000 unit PO MONTHLY 06/20/18 08/08/18 History [Vitamin D2] folic acid 0.4 mg PO BID 06/20/18 08/08/18 History furosemide [Lasix] 40 mg PO Q OTHER DAY 06/20/18 08/08/18 History insulin aspart U-100 [Novolog 11 unit SUBCUT QAM 06/20/18 08/08/18 History U-100 Insulin aspart] insulin aspart U-100 [Novolog 18 unit SUBCUT LD 06/20/18 08/08/18 History U-100 Insulin aspart] insulin aspart U-100 [Novolog 26 unit SUBCUT QPM 06/20/18 08/08/18 History U-100 Insulin aspart] insulin glargine [Lantus Solostar 25 unit SUBCUT BID 06/20/18 08/08/18 History U-100 Insulin] ipratropium-albuterol [Combivent 1 puff INHALATION Q6H PRN 06/20/18 08/08/18 History Respimat] magnesium oxide [MagOx] 400 mg PO BID 06/20/18 08/08/18 History multivitamin 1 tab PO DAILY 06/20/18 08/08/18 History nitroglycerin [Nitrostat] 0.4 mg SUBLINGUAL UD PRN 06/20/18 08/08/18 History pregabalin [Lyrica] 200 mg PO BID 06/20/18 08/08/18 History tafluprost (PF) [Zioptan (PF)] 1 drp OPB DAILY 06/20/18 08/08/18 History vitamin B complex 1 tab PO DAILY 06/20/18 08/08/18 History carvedilol 12.5 mg PO BID 30 Days #60 tab 06/22/18 08/08/18 Rx apixaban [Eliquis] 2.5 mg PO BID 07/09/18 08/08/18 History clopidogrel 75 mg PO QAM #30 tab 07/09/18 08/08/18 Rx cephalexin 500 mg PO Q12 08/08/18 08/08/18 History sulfamethoxazole-trimethoprim 1 tab PO BID 08/08/18 08/08/18 History Past Med/Surg History Medical History CHF (congestive heart failure) JANICE treated with BiPAP Atrial fibrillation CAD (coronary artery disease) Myocardial infarction Peripheral neuropathy (Chronic) Diabetes (Chronic) HTN (hypertension) (Chronic) Diffuse large B-cell lymphoma of extranodal site (~08/2012) Surgical History S/P cardiac catheterization S/P hysterectomy S/P tonsillectomy Social History marital status: Current Living Situation: Spouse Feels Safe at Home: Yes Smoking Status: Never smoker Second Hand Exposure: No Hx Alcohol Use: No Hx Substance Use: No Beliefs That Will Affect Care: None Preferred Language: Bengali Review of Systems All systems reviewed & are unremarkable except as noted in HPI & below Physical Exam 2 Vital Signs (Past 24 Hours): Last Vital Signs Temp 36.8 C 08/08/18 16:28 Pulse 78 08/08/18 18:24 Resp 24 08/08/18 18:24 BP 168/75 H 08/08/18 18:24 Pulse Ox 91 08/08/18 18:24 Physical Exam: General: patient resting comfortably, NAD, non-toxic in appearance, AA&O x 4, NC in place Skin: warm, dry, intact, no rashes or lesions HEENT: NC/AT, PERRL, EOMI, anicteric sclera, conjunctiva without injection, external ear normal to inspection and nontender, nares patent, dry mucus membranes, dentition intact, no oropharyngeal lesions, neck supple, trachea midline, no LAD, no thyromegaly, no JVD. No swelling of tongue, soft palate, uvula or face noted Heart: +S1/S2, irregularly irregular, no m/r/g Lungs: equal air entry bilaterally, crackles in bilateral bases L>R Abd: +BS, soft, distended and tympanic to percussion, nontender, no masses/ organomegaly/ascites Ext: warm, 2+ pulses in UE/LE bilaterally, 1+ pitting edema to knees bilaterally Neuro: nonfocal, patient AA&O x 4, speech intact, no facial droop, moving all extremities on command with equal strength 5/5 Results & Data Laboratory Results Lab Results 08/08/18 08/08/1808/08/19 Range/Units 16:45 16:45 17:35 WBC 4.25 L (4.8-10.8) K/uL RBC 4.16 L (4.2-5.4) M/uL Hgb 12.7 (12.0-16.0) g/dL Hct 40.0 (37-47) % MCV 96.2 (80-100) fL MCH 30.5 (25-34) pg MCHC 31.8 L (32-36) g/dL RDW Std Deviation 55.0 H (36.4-46.3) fL RDW Coeff of Nhi 15.8 H (11.5-14.5) % Plt Count 125 L (130-400) K/uL MPV 12.2 H (7.4-10.4) fL Immature Gran % (Auto) 1.2 % Neut % (Auto) 93.9 % Lymph % (Auto) 3.3 % [place] % (Auto) 1.2 % Eos % (Auto) 0.2 % Baso % (Auto) 0.2 % Immature Gran # (Auto) 0.05 H (0.00-0.02) K/uL Neut # (Auto) 3.99 (1.4-6.5) K/uL Lymph # (Auto) 0.14 L (1.2-3.4) K/uL [place] # (Auto) 0.05 L (0.11-0.59) K/uL Eos # (Auto) 0.01 (0-0.5) K/uL Baso # (Auto) 0.01 (0-0.2) K/uL RBC Morphology Unremarkable Sodium 139 (136-145) mmol/L Potassium 4.2 (3.5-5.1) mmol/L Chloride 102 (98-107) mmol/L Carbon Dioxide 27 (21-32) mmol/L Anion Gap 10.0 (3-11) BUN 38 H (7-18) mg/dl Creatinine 1.87 H (0.6-1.2) mg/dl Est Cr Clr Drug Dosing 25.6 ml/min Est GFR ( Amer) 29.5 Est GFR (Non-Af Amer) 25.5 BUN/Creatinine Ratio 20.3 H (10-20) Glucose 187 H (70-99) mg/dl Calcium 9.0 (8.5-10.1) mg/dl Magnesium 1.5 L (1.8-2.4) mg/dl Total Bilirubin 0.7 (0.2-1) mg/dl AST 20 (15-37) U/L ALT 33 (12-78) U/L Alkaline Phosphatase 80 (45-117) U/L Troponin I < 0.015 (0-0.045) ng/ml Total Protein 7.3 (6.4-8.2) gm/dl Albumin 3.4 (3.4-5.0) gm/dl Globulin 3.9 (2.5-4.0) gm/dl Albumin/Globulin Ratio 0.9 (0.9-2) Lipase 194 (73-393) U/L Urine Color Yellow Urine Appearance Clear (Clear) Urine pH 5.0 (4.5-7.5) Ur Specific [place] 1.010 (1.000-1.030) Urine Protein 1+ H (Negative) Urine Glucose (UA) Negative (Negative) Urine Ketones Negative (Negative) Urine Blood 1+ H (Negative) Urine Nitrite Negative (Negative) Urine Bilirubin Negative (Negative) Urine Urobilinogen Negative (Negative) Ur Leukocyte Esterase Trace H (Negative) Urine WBC (Auto) >30 H (0-5) /hpf Urine RBC (Auto) 0-4 (0-4) /hpf U Hyaline Cast (Auto) 0 (0-5) /lpf U Epithel Cells (Auto) 0-5 (0-5) /lpf Urine Bacteria (Auto) 3+ H (Negative) Diagnostic Findings CT SCAN OF THE ABDOMEN AND PELVIS WITHOUT CONTRAST CLINICAL HISTORY: Left flank pain. A urinary tract infection. COMPARISON STUDY: 06/26/2018 TECHNIQUE: CT scan of the abdomen and pelvis was performed from the lung bases to the proximal femurs. Images are reviewed in the axial, sagittal, and coronal planes. IV contrast was not administered for this examination. A dose lowering technique was utilized adhering to the principles of ALARA. CT DOSE: 935.74 mGycm FINDINGS: Lower chest: The heart is enlarged. There are coronary artery calcifications present. There are persistent right dependent bibasilar opacities right greater than left. Liver: The unenhanced liver is normal in size, contour, and attenuation. There is no intrahepatic biliary ductal dilatation. Gallbladder: Unremarkable. Spleen: There is a subtle splenic hypodensity, similar to the prior study. A splenic calcification is also evident Pancreas: Unremarkable. Adrenal glands: Unremarkable. Kidneys: The left kidney is atrophic. There is a lower pole calculus. There is mild left-sided periureteral edema. There is a 2.5 mm distal left ureteral calculus as above the level of the UVJ. Bowel: There are no transition zones indicate bowel obstruction. There is no acute diverticulitis. There are multiple colonic diverticula present. By history the appendix is surgically absent. Peritoneum: There is no intraperitoneal free air or abdominal ascites. There is a blunted intraperitoneal fat. Vasculature: Atherosclerotic changes are present. There is no evidence of abdominal aortic aneurysm. Adenopathy: None. Pelvic viscera: The uterus is surgically absent. Skeletal structures: No destructive osseous lesions are seen. IMPRESSION: 1. 2.5 mm distal left ureteral calculus with mild secondary obstructive changes 2. Left-sided nephrolithiasis. Renal atrophy. 3. Diverticulosis. No evidence of acute diverticulitis 4. No evidence of bowel obstruction. No evidence of free air 5. Stable bilateral lower lobe dependent parenchymal opacities Electronically signed by: Olaf Muir M.D. 08/08/2018 6:24 PM Dictated: 08/08/181817 Transcribed: 08/08/181817 XR chest 1V portable CLINICAL HISTORY: sob COMPARISON STUDY: 07/04/2018 FINDINGS: The heart is enlarged. There is a left-sided A-Port catheter present. There is continued radiographic evidence of congestive failure with pulmonary edema. Suspected trace pleural effusions.[ IMPRESSION: Stable findings. Persistent cardiomegaly and radiographic evidence of congestive failure with pulmonary edema Electronically signed by: Olaf Muir M.D. 08/08/2018 5:42 PM ECG Additional Comments: The study shows NSR with PACs, ZA=660, QRS=88, RRz=543, nonspecific ST changes Code Status & VTE Plan Code Status DNR per discussion with patient VTE Prophylaxis Plan VTE Prophylaxis will be ordered: No Reason for no VTE drug order: Treatment not indicated Critical Care Time Critical Care Time: No _ (1) UTI (urinary tract infection) Encounter type: Hematuria presence: with hematuria Indwelling urinary catheter type: Urinary tract infection type: acute cystitis Qualified Code(s) : N30.01 - Acute cystitis with hematuria (2) Diabetes Diabetes mellitus type: type 2 Diabetes mellitus intermediate insulin use: with intermediate use Diabetes mellitus complication status: without complication Diabetes mellitus complication detail: Diabetic retinopathy severity: Proliferative retinopathy type: Diabetes mellitus macular edema: Laterality : Chronic kidney disease stage: Qualified Code(s): E11.9 - Type 2 diabetes mellitus without complications; Z79.4 - terminologist (current) use of insulin (3) CAD (coronary artery disease) Coronary Disease-Associated Artery/Lesion type: [place] artery [place] vs. transplanted heart: [place] heart Associated angina: without angina Qualified Code(s): I25.10 - Atherosclerotic heart disease of [place] coronary artery without angina pectoris (4) Atrial fibrillation Atrial fibrillation type: paroxysmal Qualified Code(s): I48.0 - Paroxysmal atrial fibrillation (5) HTN (hypertension) Hypertension type: essential hypertension Qualified Code(s): I10 - Essential (primary) hypertension (6) CHF (congestive heart failure) Heart failure type: diastolic Heart failure chronicity: chronic Qualified Code(s): I50.32 - Chronic diastolic (congestive) heart failure
[2018-08-08] MEDS ORDERED: IPRATROPIUM BROMIDE/ALBUTEROL respimat INH INH PRN (20:26)
[2018-08-08] MEDS ORDERED: CARBOHYDRATES FOR HYPOGLYCEMIA PO PRN (20:26)
[2018-08-08] MEDS ORDERED: GLUCOSE 40% GEL 15 GM TUBE PO PRN (20:26)
[2018-08-08] MEDS ORDERED: DEXTROSE 50% 50 ML SYRINGE IV PRN (20:26)
[2018-08-08] MEDS ORDERED: GLUCAGON FOR INJ 1 MG VIAL SQ PRN (20:26)
[2018-08-08] MEDS ORDERED: PROMETHAZINE HCL 12.5 MG in SODIUM CHLORIDE 0.9% 50 ML IV PRN (20:26)
[2018-08-08] MEDS ORDERED: GLUCOSE 10 TABS/TUBE PO PRN (20:26)
[2018-08-08] MEDS ORDERED: ALBUT/IPRATROP 3MG/0.5MG NEB 3 ML VIAL NEB STA (20:55)
[2018-08-08] MEDS ORDERED: ALBUT/IPRATROP 3MG/0.5MG NEB 3 ML VIAL NEB PRN (20:55)
[2018-08-08] MEDS ORDERED: TAMSULOSIN HCL 0.4 MG CAP PO SCH (21:00)
[2018-08-08] MEDS ORDERED: INSULIN ASPART 100 UNITS/ML 3 ML PEN SC SCH (21:00)
[2018-08-08] MEDS: CARVEDILOL 12.5 MG TAB PO SCH (21:47)
[2018-08-08] MEDS: AMIODARONE 200 MG TAB PO SCH (21:48)
[2018-08-08] MEDS: APIXABAN 2.5 MG TAB PO SCH (21:48)
[2018-08-08] MEDS: FOLIC ACID 400 MCG TAB PO SCH (21:49)
[2018-08-08] MEDS: MAGNESIUM OXIDE 400 MG TAB PO SCH (21:49)
[2018-08-08] MEDS: INSULIN GLARGINE SOLOSTAR 100 UNITS/ML 3 ML PEN SC SCH (21:51)
[2018-08-08] MEDS: PREGABALIN 100 MG CAP PO SCH (21:55)
[2018-08-09] MEDS ORDERED: Nursing to Pharmacy Communication ONE (00:54)
[2018-08-09] MEDS: HEPARIN 100 UNIT/ML 5ML FLUSH FLUSH PRN ×3 (06:04→14:26)
[2018-08-09] MEDS: INSULIN ASPART 100 UNITS/ML 3 ML PEN SC SCH ×4 (06:16→23:59)
[2018-08-09] MEDS ORDERED: INFLUENZA ADMINISTRATION CHARGE ONE (06:30)
[2018-08-09] MEDS ORDERED: INFLUENZA VACCINE HIGH DOSE 65+ 0.5 ML SYR IM ONE (06:30)
[2018-08-09 07:12] LABS: Basophils # (auto) 0.02 K/uL (0-0.2); Basophils % (auto) 0.1 %; Hemoglobin 10.9 g/dL (12.0-16.0); Immature Granulocytes # (auto) 0.04 K/uL (0.00-0.02); Immature Granulocytes % (auto) 0.3 %; Lymphocytes % (auto) 4.4 %; Mean Corpuscular Hgb Conc 32.1 g/dL (32-36); Mean Corpuscular Volume 96.6 fL (80-100); Mean Platelet Volume 12.8 fL (7.4-10.4); Monocytes # (auto) 0.91 K/uL (0.11-0.59); Monocytes % (auto) 6.7 %; Neutrophils # (auto) 11.98 K/uL (1.4-6.5); Neutrophils % (auto) 88.5 %; Nucleated RBC # (auto) 0.05 K/uL (0-0); Nucleated RBC % (auto) 0.4 %; Platelet Count 123 K/uL (130-400); RDW Coefficient of Variation 16.2 % (11.5-14.5); RDW Standard Deviation 57.5 fL (36.4-46.3); Red Blood Count 3.52 M/uL (4.2-5.4); White Blood Count 13.55 K/uL (4.8-10.8)
[2018-08-09 07:31] LABS: Calcium 8.2 mg/dl (8.5-10.1); Creatinine Clr Calc Pharmacy 19.8 ml/min; Est GFR (African American) 21.6; Est GFR (Non-African American) 18.7; Potassium 5.1 mmol/L (3.5-5.1)
[2018-08-09] MEDS: MAGNESIUM SULFATE / D5W 1 GM/100 ML BAG IV SCH ×2 (08:23→09:16)
[2018-08-09] MEDS ORDERED: TAFLUPROST OPB SCH (09:00)
[2018-08-09] MEDS ORDERED: CLOPIDOGREL BISULFATE 75 MG TAB PO SCH (09:00)
[2018-08-09] MEDS: INSULIN GLARGINE SOLOSTAR 100 UNITS/ML 3 ML PEN SC SCH ×2 (09:04→20:32)
[2018-08-09] MEDS: APIXABAN 2.5 MG TAB PO SCH (09:21)
--- NOTE | 2018-08-09 09:33 | Urology Consultation ---
Date of Consultation August 09, 2018 Assessment & Plan (1) Ureterolithiasis: 2.5mm L ureteral stone, KENDELL and elevated WBC Plan for stent placement today. Discussed with Dr. Au. Risks and benefits of ureteral stent placement reviewed. Discussed potential parish catheter placement if bleeding or debri encountered during procedure. Keep NPO. Plavix/eliquis to be held today. Discussed with hospitalist salas. Patient agreeable to this plan. Please contact us with any changes in condition including temp >38C, tachycardia , hypotension - this will necessitate immediate stent placement. History of Present Illness Reason for Consultation: stone, +ua Requesting Physician: Dr. Farrell Attending Physician: Catarina Farrell MD History of Present Illness Ms. Hagen is a very pleasant 78yo F whom presented to ED last evenign with complaints of severe L flank pain and groin pain. Eval by PCP 1 day prior to arrival with typical UTI symtoms, started on bactrim. She recieved 2 doses prior to hospitalization. CT reveals 2-2.5mm distal L ureteral stone, mild perinephric edema. No hydro, no renal stones. UA + bacteria, trace leuks. Prelim UC&S reveals >100,000 cfu G- bacilli. Cr grossly elevated from her baseline of 1.0-1.5 (per dr. berg). WBC elevated today, despite broad spectrum antibiotic coverage. Fever of 37.6F last night noted. VS stable otherwise. Sitting in bed at times of evaluation, feeling better today than yesterday. No family members at bedside at time of evaluation. Voiding spontaneously without difficulty, slight dysuria. Denies hematuria, urgency/frequency Agree with above . Pt seen at 1 pm and has had no fever . She does have urgency which is new and may be the stone at the uvj . Kub done and initail interpretation of stone appeared to be to proximal and likelycalcicication in iliac artery. Reviewed w Dr. workman pt has less than 3 m stone just at uvj . Pt on elequis and plavix and will likely bleed with a stent and would need a possible ureteroscopy . Best alternative would be to give stone a chance to pass if pt not uroseptic . Will order lactic acid and reassess at 530 . Discussed with the hospitalist who held plavix and elequis this am . Gregory Au Hx brain surgery in 2017, interfers with [facility]. She is unsure if ever evaluated by urologist, thinks he may have spontaneously passed stone before. No previous intervention. Known to Dr. Can, nephrology, for CKD. Baseline Cr 1.0-1.5. Allergies Allergy/AdvReac Type Severity Reaction Status Date / Time eptifibatide Allergy Severe ANAPHYLAXIS Verified 08/08/18 18:17 hornet venom Allergy Severe WASP VENOM Verified 08/08/18 18:17 PROTEIN-ANAPHYLAXIS mivacurium Allergy Intermediate palpatation Verified 08/08/18 18:17 s atorvastatin Allergy Unknown MUSCLE PAIN Verified 08/08/18 18:17 ezetimibe Allergy Unknown MUSCLE PAIN Verified 08/08/18 18:17 simvastatin Allergy Unknown MUSCLE PAIN Verified 08/08/18 18:17 warfarin AdvReac Intermediate EXTREME Verified 08/08/18 18:17 BLEEDING TIMES codeine AdvReac Mild VOMITING Verified 08/08/18 18:17 gemfibrozil AdvReac Mild NAUSEA Verified 08/08/18 18:17 meperidine AdvReac Mild VOMITING Verified 08/08/18 18:17 ondansetron AdvReac Mild vomiting Verified 08/08/18 18:17 ranitidine [From Zantac] AdvReac Mild dyspepsia Verified 08/08/18 18:17 cortisone AdvReac Unknown INCREASES Verified 08/08/18 18:17 SUGAR AND VOMITING? hydralazine AdvReac Unknown VOMITING Verified 08/08/18 18:17 ibuprofen AdvReac Unknown VOMITING Verified 08/08/18 18:17 AND DIARRHEA iodine AdvReac Unknown SHELLFISH Verified 08/08/18 18:17 - VOMITING shellfish derived AdvReac Unknown VOMITING Verified 08/08/18 18:17 Sulfa (Sulfonamide AdvReac Unknown VOMITING Verified 08/08/18 18:17 Antibiotics) Home Medications Home Medications Medication Instructions Recorded Confirmed Type amiodarone [Pacerone] 100 mg PO BID 06/20/18 08/08/18 History ascorbic acid (vitamin C) [Vitamin 1 g PO DAILY 06/20/18 08/08/18 History C] buspirone 5 mg PO BID 06/20/18 08/08/18 History ergocalciferol (vitamin D2) 50,000 unit PO MONTHLY 06/20/18 08/08/18 History [Vitamin D2] folic acid 0.4 mg PO BID 06/20/18 08/08/18 History furosemide [Lasix] 40 mg PO Q OTHER DAY 06/20/18 08/08/18 History insulin aspart U-100 [Novolog 11 unit SUBCUT QAM 06/20/18 08/08/18 History U-100 Insulin aspart] insulin aspart U-100 [Novolog 18 unit SUBCUT LD 06/20/18 08/08/18 History U-100 Insulin aspart] insulin aspart U-100 [Novolog 26 unit SUBCUT QPM 06/20/18 08/08/18 History U-100 Insulin aspart] insulin glargine [Lantus Solostar 25 unit SUBCUT BID 06/20/18 08/08/18 History U-100 Insulin] ipratropium-albuterol [Combivent 1 puff INHALATION Q6H PRN 06/20/18 08/08/18 History Respimat] magnesium oxide [MagOx] 400 mg PO BID 06/20/18 08/08/18 History multivitamin 1 tab PO DAILY 06/20/18 08/08/18 History nitroglycerin [Nitrostat] 0.4 mg SUBLINGUAL UD PRN 06/20/18 08/08/18 History pregabalin [Lyrica] 200 mg PO BID 06/20/18 08/08/18 History tafluprost (PF) [Zioptan (PF)] 1 drp OPB DAILY 06/20/18 08/08/18 History vitamin B complex 1 tab PO DAILY 06/20/18 08/08/18 History carvedilol 12.5 mg PO BID 30 Days #60 tab 06/22/18 08/08/18 Rx apixaban [Eliquis] 2.5 mg PO BID 07/09/18 08/08/18 History clopidogrel 75 mg PO QAM #30 tab 07/09/18 08/08/18 Rx cephalexin 500 mg PO Q12 08/08/18 08/08/18 History sulfamethoxazole-trimethoprim 1 tab PO BID 08/08/18 08/08/18 History Patient History Medical History CHF (congestive heart failure) JANICE treated with BiPAP Atrial fibrillation CAD (coronary artery disease) Myocardial infarction Peripheral neuropathy (Chronic) Diabetes (Chronic) HTN (hypertension) (Chronic) Diffuse large B-cell lymphoma of extranodal site (~08/2012) Surgical History S/P cardiac catheterization S/P hysterectomy S/P tonsillectomy Family History Other Cancer Diabetes Gallbladder disease Heart disease Hypertension Kidney stones Social History marital status: Current Living Situation: Spouse Other Information That Helps Us Care for You: No Feels Safe at Home: Yes Safety Concerns: Feels Safe At This Time Smoking Status: Never smoker Do You Dip or Chew Tobacco: No Hx Alcohol Use: No Hx Substance Use: No Beliefs That Will Affect Care: None Communication Ability: Effective Review of Systems Constitutional: as per Subjective / HPI; no fever, no chills and no sweats Eyes: no problem reported Ear, Nose, Mouth, Throat: no problem reported Respiratory: no cough and no dyspnea Cardiovascular: no chest pain Gastrointestinal: + nausea (mild, intermittent); no abdominal pain, no belching and no vomiting Genitourinary (Female): + flank pain (mild, left sided. improve from time of admit); no urinary frequency and no urinary hesitancy Musculoskeletal: no problem reported Integumentary: no rash Neurologic: no confusion Endocrine: no fatigue and no polydipsia Hematologic / Lymphatic: no easy bleeding and no easy bruising Physical Exam 2 Vital Signs (Past 24 Hours): Last Vital Signs Temp 36.7 C 08/09/18 06:54 Pulse 53 L 08/09/18 06:54 Resp 20 08/09/18 06:54 BP 119/78 08/09/18 06:54 Pulse Ox 99 08/09/18 06:54 Constitutional: well developed and + obese; no acute distress ENMT: Ears: no hearing impairment Neck: normal visual inspection Respiratory: normal respiratory effort; no respiratory distress, no labored breathing and does not use accessory muscles 2.5LNC intact Cardiovascular: Vessels: no JVD Gastrointestinal (Abdomen): Inspection/Auscultation: abdomen not distended and no abdominal edema Percussion/Palpation: abdomen nontender Skin: no rashes, warm and dry (in exposed areas) Psychiatric: A+Ox3, euthymic affect Judgement: good judgement Genitourinary: no suprapubic tenderness, no bladder distension
--- NOTE | 2018-08-09 10:09 | XRay Report ---
ADDENDUM Addendum: The calcification immediately inferior to left sacroiliac joint represents vascular calcifi cation. The 2.5 mm distal left ureteral calculus shown on CT of August 08, 2018 is not definitively identified, likely due to radiographic technique, but may reflect a faint calcification projecting ov er the distal left ureter. Electronically signed by: Jose Mcgregor M.D. 08/09/2018 1:04 PM ORIGINAL REPORT XR KUB CLINICAL HISTORY: ureteral stone nephrocalcinosis COMPARISON STUDY: 04/25/2017 FINDINGS: 3 mm distal left ureteral calculus medially inferior to the level of the left sacroiliac dano int. Multiple pelvic vascular calcifications unchanged from the prior study. Calcification overlying the r ight kidney unchanged. Bowel pattern is nonobstructive. IMPRESSION: 3 mm distal left ureteral calculus inferior to the level of the left sacroiliac joint. The above report was generated using voice recognition software. It may contain grammatical, syntax or spelling errors. Electronically signed by: Luciano Longoria M.D. 08/09/2018 10:07 AM
[2018-08-09] MEDS: PREGABALIN 100 MG CAP PO SCH ×2 (10:42→20:28)
[2018-08-09] MEDS: MULTIVITAMIN TAB PO SCH (10:45)
[2018-08-09] MEDS: ASCORBIC ACID 500 MG TAB PO SCH (10:45)
[2018-08-09] MEDS: VITAMIN B COMPLEX TAB PO SCH (10:45)
[2018-08-09] MEDS: MAGNESIUM OXIDE 400 MG TAB PO SCH ×2 (10:45→20:30)
[2018-08-09] MEDS: FOLIC ACID 400 MCG TAB PO SCH ×2 (10:46→20:29)
[2018-08-09] MEDS: CARVEDILOL 12.5 MG TAB PO SCH ×2 (10:46→20:30)
[2018-08-09] MEDS: AMIODARONE 200 MG TAB PO SCH ×2 (12:13→20:46)
[2018-08-09] MEDS: ACETAMINOPHEN 325 MG TAB PO PRN (12:17)
[2018-08-09] MEDS ORDERED: SODIUM CHLORIDE 0.9% 500 ML IV ONE (12:48)
[2018-08-09] MEDS: SODIUM CHLORIDE 0.9% 1000ML 1,000 ML IV SCH (15:58)
[2018-08-09] MEDS: cefTRIAXone SODIUM 1,000 MG in DEXTROSE 5% 50 ML IV SCH (16:05)
--- NOTE | 2018-08-09 16:25 | Hospitalist Progress Note ---
Date of Service August 09, 2018 Assessment & Plan (1) Sepsis: - Admitted with leukocytosis, low grade fevers and hypotension with urinary source; lactate level was 0.9. - Hypotensive this afternoon -- received 500 cc bolus followed by fluids at 100 cc/hr. - Holding Flomax and home Lasix; will continue Coreg 12.5 mg BID with hold parameters. - CXR was negative for pneumonia; no BC were collected. - Treatment for UTI as noted below. (2) Ureterolithiasis: - Presented with left flank pain and dysuria; CT A/P showed 2.5 cm distal left ureteral calculus with obstructive changes. - Urology consulted, appreciate input. - Strain urine to monitor for passing of stone. - May require surgical intervention with stent placement over next 48 hours. - Hold Flomax due to hypotension. - Received 500 cc bolus, continue IV fluids at 100 cc/hr. - Currently NPO for possible procedure -- will keep NPO overnight. (3) UTI (urinary tract infection): - U/a positive, UC shows gram negative bacilli. - Was started on Bactrim as outpatient by PCP, reports developing allergic reaction of "left flank pain". - Continue Ceftriaxone for empiric coverage. - Urology following, appreciate input. (4) Acute kidney injury: - Creatinine increased to 2.42 today, likely prerenal related to dehydration. - Started IV fluids at 100 cc/hr. - Repeat BMP showed worsening renal function, creatinine 2.6. (5) Chronic kidney disease with active medical management without dialysis, stage 3 (moderate): - Avoid nephrotoxic agents, renally dose all meds. (6) Diabetes: - Most recent A1C was 8.3 in June 2018. - On Lantus 25 units BID at home; decreased dose to 12 units BID due to NPO status. - SSI coverage with gluc checks ac/hs. - Blood glucose levels have been elevated -- will need to increase coverage once pt. is eating. (7) Apical variant hypertrophic cardiomyopathy: - Holding home Lasix. - Monitor volume status. (8) CAD (coronary artery disease): - H/o CAD, most recent cardiac event with cardiac cath on 07/06/18 with placement of AWILDA x 2 to RCA. - EKG negative for changes on admission; initial Troponin was negative, will repeat level. - Continue Coreg 12.5 mg BID with hold parameters. - Will hold Eliquis for possible procedure. - Held Plavix this morning, will need to resume on 08/10/18 -- discussed with cardiology, patient will need to continue Plavix in operative setting due to recent cath with stent placement/high risk of discontinuing medication. - May need to start PCSK9 inhibitor as outpatient; is statin intolerant. - Cardiology consulted. (9) Atrial fibrillation: - In NSR at admission. - Continue Amiodarone 100 mg BID. - Continue Coreg 12.5 mg BID with hold parameters. - Holding Eliquis for procedure. (10) HTN (hypertension): - Has been hypotensive this afternoon with SBP 90's. - Holding home Lasix; continue Coreg with hold parameters. - On IVFs at 100 cc/hr. (11) CHF (congestive heart failure): - Has chronic diastolic CHF; no evidence of fluid overload. - Holding home Lasix; on continuous IV fluids at 100 cc/hr due to dehydration/ hypotension. - Continue Coreg as prescribed. - Monitor daily weights and I/Os. (12) JANICE treated with BiPAP: - BiPAP qhs. (13) Acute and chronic respiratory failure: - Requires 2-3L via NC at home chronically; was requiring Oxymask at 5-15L , now weaned down to baseline. (14) Anxiety: - Continue Buspar 5 mg BID as prescribed. (15) DVT prophylaxis: - Continue Plavix; holding Eliquis. Dispo: Urology consulted, may require stent placement if no improvement. Will need to call Dr. Au overnight if she clinically decompensates for urgent stent placement. Supervising Physician Co-Signing Physician Notes JEFE Supervision Note: I did not personally see or examine the patient today, but I verified all [place] points of JEFE Chaves's assessment and plan with the following exceptions/ additions: None Subjective Pt. has ongoing dysuria with left flank pain that radiates to left side of abdomen today. She had fever/chills at home, had low grade fever during this admission. Has nausea, no vomiting, with decreased appetite. WBC is elevated in setting of infection. BP has been trending down throughout day, was 90's systolically this afternoon. Received 500 cc bolus followed by IV fluids at 100 cc/hr due to dehydration. Will re-evaluate this afternoon to determine if pt. is appropriate to go to the OR for stent placement. Discussed cardiac medications in pre-op period with cardiology. Will hold Eliquis (last dose was on 08/08/18 in the evening). Will continue Plavix as pt. is s/p cardiac cath on 07/06/18 with placement of 2 drug eluting stents; discontinuing plavix would be high risk at this time. Will need to monitor for bleeding/treatment bleeding that occurs if pt. goes to the OR. Review of Systems All systems reviewed & are unremarkable except as noted in HPI & below Constitutional: + fever, + chills and + weakness Respiratory: no cough and no dyspnea Cardiovascular: no chest pain, no palpitations and no edema Gastrointestinal: + abdominal pain and + nausea; no vomiting, no constipation and no diarrhea/loose stools Genitourinary (Female): + dysuria, + urinary frequency and + flank pain (Left); no hematuria Musculoskeletal: no joint pain Allergy / Immunological: no rash Physical Exam 2 Vital Signs (Past 24 Hours): Last Vital Signs Temp 36.4 C L 08/09/18 15:08 Pulse 50 L 08/09/18 15:08 Resp 18 08/09/18 15:08 BP 90/43 L 08/09/18 15:08 Pulse Ox 100 08/09/18 15:08 Physical Exam: General: Resting comfortably in no apparent distress HEENT: NC/AT; PERRLA with EOMI; [place] conjunctiva, MMM. Neck: Supple and nontender Cardiac: RRR Lungs: on 2L via NC; clear to auscultation throughout Abdomen: Bowel normoactive X 4; Nontender to palpation Extremities: Warm. No edema present Neuro: No focal weakness Skin: No rash Results & Data Laboratory Results 08/09/18 08/09/18 08/09/18 Range/Units 16:05 16:04 14:33 WBC (4.8-10.8) K/uL RBC (4.2-5.4) M/uL Hgb (12.0-16.0) g/dL Hct (37-47) % MCV (80-100) fL MCH (25-34) pg MCHC (32-36) g/dL RDW Std Deviation (36.4-46.3) fL RDW Coeff of Nhi (11.5-14.5) % Plt Count (130-400) K/uL MPV (7.4-10.4) fL Immature Gran % (Auto) % Neut % (Auto) % Lymph % (Auto) % [place] % (Auto) % Eos % (Auto) % Baso % (Auto) % Immature Gran # (Auto) (0.00-0.02) K/uL Neut # (Auto) (1.4-6.5) K/uL Lymph # (Auto) (1.2-3.4) K/uL [place] # (Auto) (0.11-0.59) K/uL Eos # (Auto) (0-0.5) K/uL Baso # (Auto) (0-0.2) K/uL Absolute Nucleated RBC (0-0) K/uL Nucleated RBC % (auto) % Platelet Estimate (Normal) RBC Morphology PT Pending INR Pending Sodium Pending (136-145) mmol/L Potassium Pending (3.5-5.1) mmol/L Chloride Pending (98-107) mmol/L Carbon Dioxide Pending (21-32) mmol/L Anion Gap Pending (3-11) BUN Pending (7-18) mg/dl Creatinine Pending (0.6-1.2) mg/dl Est Cr Clr Drug Dosing Pending ml/min Est GFR ( Amer) Pending Est GFR (Non-Af Amer) Pending BUN/Creatinine Ratio Pending (10-20) Glucose Pending (70-99) mg/dl POC Glucose (70-99) Lactate 0.9 (0.4-2.0) mmol/L Calcium Pending (8.5-10.1) mg/dl Magnesium (1.8-2.4) mg/dl Total Bilirubin (0.2-1) mg/dl AST (15-37) U/L ALT (12-78) U/L Alkaline Phosphatase (45-117) U/L Troponin I Pending (0-0.045) ng/ml Total Protein (6.4-8.2) gm/dl Albumin (3.4-5.0) gm/dl Globulin (2.5-4.0) gm/dl Albumin/Globulin Ratio (0.9-2) Lipase (73-393) U/L Urine Color Urine Appearance (Clear) Urine pH (4.5-7.5) Ur Specific [place] (1.000-1.030) Urine Protein (Negative) Urine Glucose (UA) (Negative) Urine Ketones (Negative) Urine Blood (Negative) Urine Nitrite (Negative) Urine Bilirubin (Negative) Urine Urobilinogen (Negative) Ur Leukocyte Esterase (Negative) Urine WBC (Auto) (0-5) /hpf Urine RBC (Auto) (0-4) /hpf U Hyaline Cast (Auto) (0-5) /lpf U Epithel Cells (Auto) (0-5) /lpf Urine Bacteria (Auto) (Negative) 08/09/18 08/09/18 08/09/18 Range/Units 11:43 06:02 06:02 WBC 13.55 H (4.8-10.8) K/uL RBC 3.52 L (4.2-5.4) M/uL Hgb 10.9 L (12.0-16.0) g/dL Hct 34.0 L (37-47) % MCV 96.6 (80-100) fL MCH 31.0 (25-34) pg MCHC 32.1 (32-36) g/dL RDW Std Deviation 57.5 H (36.4-46.3) fL RDW Coeff of Nhi 16.2 H (11.5-14.5) % Plt Count 123 L (130-400) K/uL MPV 12.8 H (7.4-10.4) fL Immature Gran % (Auto) 0.3 % Neut % (Auto) 88.5 % Lymph % (Auto) 4.4 % [place] % (Auto) 6.7 % Eos % (Auto) 0.0 % Baso % (Auto) 0.1 % Immature Gran # (Auto) 0.04 H (0.00-0.02) K/uL Neut # (Auto) 11.98 H (1.4-6.5) K/uL Lymph # (Auto) 0.60 L (1.2-3.4) K/uL [place] # (Auto) 0.91 H (0.11-0.59) K/uL Eos # (Auto) 0.00 (0-0.5) K/uL Baso # (Auto) 0.02 (0-0.2) K/uL Absolute Nucleated RBC 0.05 H (0-0) K/uL Nucleated RBC % (auto) 0.4 % Platelet Estimate Decreased (Normal) RBC Morphology PT INR Sodium 138 (136-145) mmol/L Potassium 5.1 D (3.5-5.1) mmol/L Chloride 100 (98-107) mmol/L Carbon Dioxide 31 (21-32) mmol/L Anion Gap 7.0 (3-11) BUN 44 H (7-18) mg/dl Creatinine 2.42 H D (0.6-1.2) mg/dl Est Cr Clr Drug Dosing 19.8 ml/min Est GFR ( Amer) 21.6 Est GFR (Non-Af Amer) 18.7 BUN/Creatinine Ratio 18.0 (10-20) Glucose 244 H (70-99) mg/dl POC Glucose 180 H (70-99) Lactate (0.4-2.0) mmol/L Calcium 8.2 L (8.5-10.1) mg/dl Magnesium 2.0 (1.8-2.4) mg/dl Total Bilirubin (0.2-1) mg/dl AST (15-37) U/L ALT (12-78) U/L Alkaline Phosphatase (45-117) U/L Troponin I (0-0.045) ng/ml Total Protein (6.4-8.2) gm/dl Albumin (3.4-5.0) gm/dl Globulin (2.5-4.0) gm/dl Albumin/Globulin Ratio (0.9-2) Lipase (73-393) U/L Urine Color Urine Appearance (Clear) Urine pH (4.5-7.5) Ur Specific [place] (1.000-1.030) Urine Protein (Negative) Urine Glucose (UA) (Negative) Urine Ketones (Negative) Urine Blood (Negative) Urine Nitrite (Negative) Urine Bilirubin (Negative) Urine Urobilinogen (Negative) Ur Leukocyte Esterase (Negative) Urine WBC (Auto) (0-5) /hpf Urine RBC (Auto) (0-4) /hpf U Hyaline Cast (Auto) (0-5) /lpf U Epithel Cells (Auto) (0-5) /lpf Urine Bacteria (Auto) (Negative) 08/09/18 08/08/18 08/08/18 Range/Units 05:57 20:31 17:35 WBC (4.8-10.8) K/uL RBC (4.2-5.4) M/uL Hgb (12.0-16.0) g/dL Hct (37-47) % MCV (80-100) fL MCH (25-34) pg MCHC (32-36) g/dL RDW Std Deviation (36.4-46.3) fL RDW Coeff of Nhi (11.5-14.5) % Plt Count (130-400) K/uL MPV (7.4-10.4) fL Immature Gran % (Auto) % Neut % (Auto) % Lymph % (Auto) % [place] % (Auto) % Eos % (Auto) % Baso % (Auto) % Immature Gran # (Auto) (0.00-0.02) K/uL Neut # (Auto) (1.4-6.5) K/uL Lymph # (Auto) (1.2-3.4) K/uL [place] # (Auto) (0.11-0.59) K/uL Eos # (Auto) (0-0.5) K/uL Baso # (Auto) (0-0.2) K/uL Absolute Nucleated RBC (0-0) K/uL Nucleated RBC % (auto) % Platelet Estimate (Normal) RBC Morphology PT INR Sodium (136-145) mmol/L Potassium (3.5-5.1) mmol/L Chloride (98-107) mmol/L Carbon Dioxide (21-32) mmol/L Anion Gap (3-11) BUN (7-18) mg/dl Creatinine (0.6-1.2) mg/dl Est Cr Clr Drug Dosing ml/min Est GFR ( Amer) Est GFR (Non-Af Amer) BUN/Creatinine Ratio (10-20) Glucose (70-99) mg/dl POC Glucose 269 H 181 H (70-99) Lactate (0.4-2.0) mmol/L Calcium (8.5-10.1) mg/dl Magnesium (1.8-2.4) mg/dl Total Bilirubin (0.2-1) mg/dl AST (15-37) U/L ALT (12-78) U/L Alkaline Phosphatase (45-117) U/L Troponin I (0-0.045) ng/ml Total Protein (6.4-8.2) gm/dl Albumin (3.4-5.0) gm/dl Globulin (2.5-4.0) gm/dl Albumin/Globulin Ratio (0.9-2) Lipase (73-393) U/L Urine Color Yellow Urine Appearance Clear (Clear) Urine pH 5.0 (4.5-7.5) Ur Specific [place] 1.010 (1.000-1.030) Urine Protein 1+ H (Negative) Urine Glucose (UA) Negative (Negative) Urine Ketones Negative (Negative) Urine Blood 1+ H (Negative) Urine Nitrite Negative (Negative) Urine Bilirubin Negative (Negative) Urine Urobilinogen Negative (Negative) Ur Leukocyte Esterase Trace H (Negative) Urine WBC (Auto) >30 H (0-5) /hpf Urine RBC (Auto) 0-4 (0-4) /hpf U Hyaline Cast (Auto) 0 (0-5) /lpf U Epithel Cells (Auto) 0-5 (0-5) /lpf Urine Bacteria (Auto) 3+ H (Negative) 08/08/18 08/08/18 Range/Units 16:45 16:45 WBC 4.25 L (4.8-10.8) K/uL RBC 4.16 L (4.2-5.4) M/uL Hgb 12.7 (12.0-16.0) g/dL Hct 40.0 (37-47) % MCV 96.2 (80-100) fL MCH 30.5 (25-34) pg MCHC 31.8 L (32-36) g/dL RDW Std Deviation 55.0 H (36.4-46.3) fL RDW Coeff of Nhi 15.8 H (11.5-14.5) % Plt Count 125 L (130-400) K/uL MPV 12.2 H (7.4-10.4) fL Immature Gran % (Auto) 1.2 % Neut % (Auto) 93.9 % Lymph % (Auto) 3.3 % [place] % (Auto) 1.2 % Eos % (Auto) 0.2 % Baso % (Auto) 0.2 % Immature Gran # (Auto) 0.05 H (0.00-0.02) K/uL Neut # (Auto) 3.99 (1.4-6.5) K/uL Lymph # (Auto) 0.14 L (1.2-3.4) K/uL [place] # (Auto) 0.05 L (0.11-0.59) K/uL Eos # (Auto) 0.01 (0-0.5) K/uL Baso # (Auto) 0.01 (0-0.2) K/uL Absolute Nucleated RBC (0-0) K/uL Nucleated RBC % (auto) % Platelet Estimate (Normal) RBC Morphology Unremarkable PT INR Sodium 139 (136-145) mmol/L Potassium 4.2 (3.5-5.1) mmol/L Chloride 102 (98-107) mmol/L Carbon Dioxide 27 (21-32) mmol/L Anion Gap 10.0 (3-11) BUN 38 H (7-18) mg/dl Creatinine 1.87 H (0.6-1.2) mg/dl Est Cr Clr Drug Dosing 25.6 ml/min Est GFR ( Amer) 29.5 Est GFR (Non-Af Amer) 25.5 BUN/Creatinine Ratio 20.3 H (10-20) Glucose 187 H (70-99) mg/dl POC Glucose (70-99) Lactate (0.4-2.0) mmol/L Calcium 9.0 (8.5-10.1) mg/dl Magnesium 1.5 L (1.8-2.4) mg/dl Total Bilirubin 0.7 (0.2-1) mg/dl AST 20 (15-37) U/L ALT 33 (12-78) U/L Alkaline Phosphatase 80 (45-117) U/L Troponin I < 0.015 (0-0.045) ng/ml Total Protein 7.3 (6.4-8.2) gm/dl Albumin 3.4 (3.4-5.0) gm/dl Globulin 3.9 (2.5-4.0) gm/dl Albumin/Globulin Ratio 0.9 (0.9-2) Lipase 194 (73-393) U/L Urine Color Urine Appearance (Clear) Urine pH (4.5-7.5) Ur Specific [place] (1.000-1.030) Urine Protein (Negative) Urine Glucose (UA) (Negative) Urine Ketones (Negative) Urine Blood (Negative) Urine Nitrite (Negative) Urine Bilirubin (Negative) Urine Urobilinogen (Negative) Ur Leukocyte Esterase (Negative) Urine WBC (Auto) (0-5) /hpf Urine RBC (Auto) (0-4) /hpf U Hyaline Cast (Auto) (0-5) /lpf U Epithel Cells (Auto) (0-5) /lpf Urine Bacteria (Auto) (Negative) _ (1) UTI (urinary tract infection) Encounter type: Hematuria presence: with hematuria Indwelling urinary catheter type: Urinary tract infection type: acute cystitis Qualified Code(s) : N30.01 - Acute cystitis with hematuria (2) Diabetes Chronic kidney disease stage: Diabetes mellitus complication detail: Diabetes mellitus complication status: without complication Diabetes mellitus chcf insulin use: with chcf use Diabetes mellitus macular edema: Diabetes mellitus type: type 2 Diabetic retinopathy severity: Laterality: Proliferative retinopathy type: Qualified Code(s): E11.9 - Type 2 diabetes mellitus without complications; 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 transplanted heart: [place] heart Qualified Code (s): I25.10 - Atherosclerotic heart disease of [place] coronary artery without angina pectoris (4) CHF (congestive heart failure) Heart failure chronicity: chronic Heart failure type: diastolic Qualified Code(s): I50.32 - Chronic diastolic (congestive) heart failure (5) Atrial fibrillation Atrial fibrillation type: paroxysmal Qualified Code(s): I48.0 - Paroxysmal atrial fibrillation (6) HTN (hypertension) Hypertension type: essential hypertension Qualified Code(s): I10 - Essential (primary) hypertension
[2018-08-09 16:27] LABS: INR 1.1 (0.9-1.1); Prothrombin Time 10.7 Seconds (9.0-12.0)
[2018-08-09 16:51] LABS: BUN Creatinine Ratio 17.2 (10-20); Calcium 8.3 mg/dl (8.5-10.1); Creatinine Clr Calc Pharmacy 17.9 ml/min; Est GFR (African American) 19.2; Est GFR (Non-African American) 16.6; Potassium 4.2 mmol/L (3.5-5.1); Troponin I 0.035 ng/ml (0-0.045)
--- NOTE | 2018-08-09 18:06 | Urology Progress Note ---
Date of Service August 09, 2018 pt reevaluated prior to planned stent placement this evening . Pt feels much better w/o flank or abdominal pain and diminished urgency . Lactic acid this afternoon normal .Afebrile and no chills . Pt hungry . Her mucous membranes are dry . Discussed the risks of the procedure and not doing the procedure . She does not appear septic as of now and her lactic acid is normal . If a stent is placed on both elequis and plavix she may have symptomatic bleeding and likely will need another procedure and she is high risk . The stone is near the bladder and per radiology less than 3 mm. She has passed stones before . Discussed with the hospitalist and will let her eat now and then make her NPO again . If she becomes febrile will place stent later. If creatinine continues to rise will need to place stent but she will have been off elequis longer . Explained the situation to the patient and her and they understand the risks and that if she develops chills or fever will need to proceed to stent placement Subjective Constitutional: as per Subjective / HPI; no fever, no chills and no sweats Physical Exam 2 Vital Signs (Past 24 Hours): Last Vital Signs Temp 36.4 C L 08/09/18 15:08 Pulse 49 L 08/09/18 16:40 Resp 18 08/09/18 15:08 BP 114/66 08/09/18 16:40 Pulse Ox 100 08/09/18 15:08
[2018-08-09] MEDS ORDERED: ZIOPTAN OP SCH (21:00)
[2018-08-09] MEDS: ZIOPTAN OP SCH (21:54)
--- NOTE | 2018-08-10 00:11 | Emergency Department Note ---
Entered by Gilbert Rodriguez acting as a scribe for Arleth Centeno DO History of Present Illness General Chief complaint: Urinary Symptoms Stated complaint: BAD REACTION FROM DRUG TREATING UTI Time Seen by Provider: 08/08/18 16:40 Source: patient History of Present Illness Onset (ago): hour(s) (this morning) Location: back and abdomen (nausea) Pain Consistency: + other (persistent) Quality: + other ("strong" nausea) Associated symptoms: + other (chills, left lower back pain) The patient is a 78 year old female who presents to the Emergency Room with complaints of persistent strong nausea beginning this morning. The patient reports a recent UTI and states that she was prescribed Bactrim DS, but she has a sulfa drug allergy and notes that this was not mentioned at the time of prescription. She reports that the first dosage was taken last night. Her second dose was taken this morning after breakfast, and one hour later her nausea developed. She states that she has not vomited. She reports chills, left lower back pain beginning today, and states that her bottom feels like someone took a sledgehammer to it. She notes that she is unsure if cultures were sent for her UTI. She reports a history of recurrent UTIs. She states that she does not have any medications at home. She notes that she wears supplemental oxygen at home. 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 [facility]. She notes a history of non-Hodgkins lymphoma of the left lung, stating that she has had no problems with her port for the past nine years. She reports a history of four heart attacks. Home Medications Home Medications Medication Instructions Recorded Confirmed Type amiodarone [Pacerone] 100 mg PO BID 06/20/18 08/08/18 History ascorbic acid (vitamin C) [Vitamin 1 g PO DAILY 06/20/18 08/08/18 History C] buspirone 5 mg PO BID 06/20/18 08/08/18 History ergocalciferol (vitamin D2) 50,000 unit PO MONTHLY 06/20/18 08/08/18 History [Vitamin D2] folic acid 0.4 mg PO BID 06/20/18 08/08/18 History furosemide [Lasix] 40 mg PO Q OTHER DAY 06/20/18 08/08/18 History insulin aspart U-100 [Novolog 11 unit SUBCUT QAM 06/20/18 08/08/18 History U-100 Insulin aspart] insulin aspart U-100 [Novolog 18 unit SUBCUT LD 06/20/18 08/08/18 History U-100 Insulin aspart] insulin aspart U-100 [Novolog 26 unit SUBCUT QPM 06/20/18 08/08/18 History U-100 Insulin aspart] insulin glargine [Lantus Solostar 25 unit SUBCUT BID 06/20/18 08/08/18 History U-100 Insulin] ipratropium-albuterol [Combivent 1 puff INHALATION Q6H PRN 06/20/18 08/08/18 History Respimat] magnesium oxide [MagOx] 400 mg PO BID 06/20/18 08/08/18 History multivitamin 1 tab PO DAILY 06/20/18 08/08/18 History nitroglycerin [Nitrostat] 0.4 mg SUBLINGUAL UD PRN 06/20/18 08/08/18 History pregabalin [Lyrica] 200 mg PO BID 06/20/18 08/08/18 History tafluprost (PF) [Zioptan (PF)] 1 drp OPB DAILY 06/20/18 08/08/18 History vitamin B complex 1 tab PO DAILY 06/20/18 08/08/18 History carvedilol 12.5 mg PO BID 30 Days #60 tab 06/22/18 08/08/18 Rx apixaban [Eliquis] 2.5 mg PO BID 07/09/18 08/08/18 History clopidogrel 75 mg PO QAM #30 tab 07/09/18 08/08/18 Rx cephalexin 500 mg PO Q12 08/08/18 08/08/18 History sulfamethoxazole-trimethoprim 1 tab PO BID 08/08/18 08/08/18 History Allergies Allergy/AdvReac Type Severity Reaction Status Date / Time eptifibatide Allergy Severe ANAPHYLAXIS Verified 08/08/18 18:17 hornet venom Allergy Severe WASP VENOM Verified 08/08/18 18:17 PROTEIN-ANAPHYLAXIS mivacurium Allergy Intermediate palpatation Verified 08/08/18 18:17 s atorvastatin Allergy Unknown MUSCLE PAIN Verified 08/08/18 18:17 ezetimibe Allergy Unknown MUSCLE PAIN Verified 08/08/18 18:17 simvastatin Allergy Unknown MUSCLE PAIN Verified 08/08/18 18:17 warfarin AdvReac Intermediate EXTREME Verified 08/08/18 18:17 BLEEDING TIMES codeine AdvReac Mild VOMITING Verified 08/08/18 18:17 gemfibrozil AdvReac Mild NAUSEA Verified 08/08/18 18:17 meperidine AdvReac Mild VOMITING Verified 08/08/18 18:17 ondansetron AdvReac Mild vomiting Verified 08/08/18 18:17 ranitidine [From Zantac] AdvReac Mild dyspepsia Verified 08/08/18 18:17 cortisone AdvReac Unknown INCREASES Verified 08/08/18 18:17 SUGAR AND VOMITING? hydralazine AdvReac Unknown VOMITING Verified 08/08/18 18:17 ibuprofen AdvReac Unknown VOMITING Verified 08/08/18 18:17 AND DIARRHEA iodine AdvReac Unknown SHELLFISH Verified 08/08/18 18:17 - VOMITING shellfish derived AdvReac Unknown VOMITING Verified 08/08/18 18:17 Sulfa (Sulfonamide AdvReac Unknown VOMITING Verified 08/08/18 18:17 Antibiotics) Past Med/Surg History Medical History CHF (congestive heart failure) JANICE treated with BiPAP Atrial fibrillation CAD (coronary artery disease) Myocardial infarction Peripheral neuropathy (Chronic) Diabetes (Chronic) HTN (hypertension) (Chronic) Diffuse large B-cell lymphoma of extranodal site (~08/2012) Surgical History S/P cardiac catheterization S/P hysterectomy S/P tonsillectomy Family History Other Cancer Diabetes Gallbladder disease Heart disease Hypertension Kidney stones Social History marital status: Current Living Situation: Spouse Other Information That Helps Us Care for You: No Feels Safe at Home: Yes Safety Concerns: Feels Safe At This Time Smoking Status: Never smoker Do You Dip or Chew Tobacco: No Hx Alcohol Use: No Hx Substance Use: No Beliefs That Will Affect Care: None Communication Ability: Effective Review of Systems See HPI for pertinent positives & negatives. and A total of 10 systems reviewed and were otherwise negative Physical Exam Vital Signs Vital Signs - 24 hr 08/09/18 06:54 08/09/18 08:26 08/09/18 12:38 Temperature 36.7 C 36.3 C L Temperature Source Axillary Oral Pulse Rate Pulse Rate [Left] 53 L 50 L Pulse Rate [Right Brachial] Pulse Rhythm [Left] Regular Pulse Strength [Left] Normal Respiratory Rate 20 12 Respiratory Effort / Characteristics Non-Labored Non-Labored Respiratory Depth Normal Normal Respiratory Pattern Apnea Regular Blood Pressure [Right Arm] 119/78 90/45 L Blood Pressure Mean [Right Arm] 91 60 Blood Pressure Position [Right Arm] Lying Lying Pulse Oximetry 99 98 Oxygen Delivery Method BiPAP BiPAP Nasal Cannula Oxygen Flow Rate 9 9 3 08/09/18 14:09 08/09/18 15:08 08/09/18 16:00 Temperature 36.4 C L Temperature Source Oral Pulse Rate Pulse Rate [Left] 50 L Pulse Rate [Right Brachial] Pulse Rhythm [Left] Regular Pulse Strength [Left] Normal Respiratory Rate 18 Respiratory Effort / Characteristics Non-Labored Spontaneous Non-Labored Non-Labored Spontaneous Respiratory Depth Normal Normal Normal Respiratory Pattern Regular Regular Regular Blood Pressure [Right Arm] 90/43 L Blood Pressure Mean [Right Arm] 58 Blood Pressure Position [Right Arm] Sitting Pulse Oximetry 100 Oxygen Delivery Method Nasal Cannula Nasal Cannula Nasal Cannula Oxygen Flow Rate 3 3 3 08/09/18 16:19 08/09/18 16:40 08/09/18 20:27 Temperature 36.9 C Temperature Source Oral Pulse Rate Pulse Rate [Left] 52 L Pulse Rate [Right Brachial] 49 L 49 L 52 L Pulse Rhythm [Left] Pulse Strength [Left] Respiratory Rate Respiratory Effort / Characteristics Respiratory Depth Respiratory Pattern Blood Pressure [Right Arm] 94/50 L 114/66 112/64 Blood Pressure Mean [Right Arm] 64 82 80 Blood Pressure Position [Right Arm] Pulse Oximetry 97 Oxygen Delivery Method Nasal Cannula Oxygen Flow Rate 3 08/09/18 22:09 08/09/18 23:49 Temperature 36.5 C Temperature Source Oral Pulse Rate 76 Pulse Rate [Left] Pulse Rate [Right Brachial] 64 Pulse Rhythm [Left] Pulse Strength [Left] Respiratory Rate 18 20 Respiratory Effort / Characteristics Non-Labored Spontaneous Respiratory Depth Normal Respiratory Pattern Regular Blood Pressure [Right Arm] 125/70 Blood Pressure Mean [Right Arm] 88 Blood Pressure Position [Right Arm] Lying Pulse Oximetry 93 100 Oxygen Delivery Method Oxymask Oxygen Flow Rate 8 3 GENERAL: alert, ill and pale-appearing, well nourished EYE EXAM: normal conjunctiva, PERRL and EOM's grossly intact OROPHARYNX: no exudate, no erythema, lips, buccal mucosa, and tongue normal and mucous membranes are dry NECK: supple, no nuchal rigidity, no adenopathy, non-tender LUNGS: Clear to auscultation. Normal chest wall mechanics, no w/r/r HEART: no murmurs, S1 normal and S2 normal CHEST: port in the left anterior/superior chest wall without surrounding erythema ABDOMEN: abdomen mildly distended, generalized tenderness with palpation, normo- active bowel sounds, no masses, no rebound or guarding. BACK: Back is symmetrical on inspection and there is no deformity, no midline tenderness, no CVA tenderness. SKIN: no rashes and no bruising UPPER EXTREMITIES: upper extremities are grossly normal. FROM,nml pulses b/l. LOWER EXTREMITIES: No pitting edema. FROM, nml pulses b/l. NEURO EXAM: Normal sensorium, cranial nerves II-XII grossly intact, normal speech, no gross weakness of arms, no gross weakness of legs. Gross sensation intact. Course 1658: Past medical records reviewed. The patient was evaluated in room C3, and a complete history and physical examination were performed. 1836: I updated the patient on results. 1910: I consulted Dr. [facility]. He is agreeable to the current plan. He states that if the patients symptoms worsen she may require additional coverage for pseudomonas, but given her current condition, he does not currently feel the need for this. 1921: I consulted Dr. Hinojosa [facility] Hospitalist. She will reevaluate the patient for hospitalization. Consultations Consultation #1: I consulted Dr. [facility]. He is agreeable to the current plan. He states that if the patients symptoms worsen she may require additional coverage for pseudomonas, but given her current condition, he does not currently feel the need for this. Time: 19:11 Consultation #2: I consulted Dr. Hinojosa [facility] Hospitalist. She will reevaluate the patient for hospitalization. Time: 19:22 Administered Medications Acetaminophen (Tylenol) 650 mg PO Q4H PRN PRN Reason: pain/fever Stop: 09/07/18 20:25 Last Admin: 08/09/18 12:17 Dose: 650 mg Amiodarone HCl (Cordarone) 100 mg PO BID [facility] Stop: 09/07/18 20:59 Last Admin: 08/09/18 20:46 Dose: 100 mg Admin: 08/09/18 12:13 Dose: 100 mg Admin: 08/08/18 21:48 Dose: 100 mg Ascorbic Acid (Vitamin C) 1,000 mg PO DAILY [facility] Stop: 09/08/18 08:59 Last Admin: 08/09/18 10:45 Dose: Not Given Buspirone HCl (Buspar) 5 mg PO BID [facility] Stop: 09/07/18 20:59 Last Admin: 08/09/18 20:29 Dose: 5 mg Admin: 08/09/18 10:47 Dose: 5 mg Admin: 08/08/18 21:48 Dose: 5 mg Carvedilol (Coreg) 12.5 mg PO BID [facility] Stop: 09/07/18 20:59 Last Admin: 08/09/18 20:30 Dose: Not Given Admin: 08/09/18 10:46 Dose: 12.5 mg Admin: 08/08/18 21:47 Dose: 12.5 mg Folic Acid (Folvite) 400 mcg PO BID [facility] Stop: 09/07/18 20:59 Last Admin: 08/09/18 20:29 Dose: 400 mcg Admin: 08/09/18 10:46 Dose: Not Given Admin: 08/08/18 21:49 Dose: 400 mcg Heparin Sodium (Porcine) (Heparin Sod 100 Unit/Ml Flush) 5 ml FLUSH PRN PRN PRN Reason: Flush Stop: 09/08/18 00:59 Last Admin: 08/09/18 14:26 Dose: 5 ml Admin: 08/09/18 10:17 Dose: 5 ml Admin: 08/09/18 06:04 Dose: 5 ml Ceftriaxone Sodium 1,000 mg/ (Dextrose) 50 mls @ 100 mls/hr IV Q24H [facility]; Protocol Stop: 08/18/18 15:59 Last Infusion: 08/09/18 17:14 Dose: 0 mls/hr Admin: 08/09/18 16:05 Dose: 100 mls/hr Sodium Chloride (Nss 1000ml) 1,000 mls @ 100 mls/hr IV .Q10H [facility] Stop: 09/08/18 14:59 Last Admin: 08/09/18 15:58 Dose: 100 mls/hr Insulin Aspart (Novolog Flexpen) 0 units SC Q6 [facility] Stop: 09/08/18 05:59 Last Admin: 08/09/18 23:59 Dose: 1 units Admin: 08/09/18 18:54 Dose: 3 units Admin: 08/09/18 12:29 Dose: 2 units Admin: 08/09/18 06:16 Dose: 6 units Insulin Glargine (Lantus Solostar Pen) 12 units SC Q12H [facility] Stop: 09/07/18 20:25 Last Admin: 08/09/18 20:32 Dose: 12 units Admin: 08/09/18 09:04 Dose: 12 units Admin: 08/08/18 21:51 Dose: 12 units Magnesium Oxide (Mag-Ox) 400 mg PO BID [facility] Stop: 09/07/18 20:59 Last Admin: 08/09/18 20:30 Dose: 400 mg Admin: 08/09/18 10:45 Dose: Not Given Admin: 08/08/18 21:49 Dose: 400 mg Multivitamins (Multivitamin Tab) 1 tab PO DAILY [facility] Stop: 09/08/18 08:59 Last Admin: 08/09/18 10:45 Dose: Not Given Zioptan- Non- Formulary Patient's Own Med 1 ea OP HS [facility] Stop: 09/08/18 20:59 Last Admin: 08/09/18 21:54 Dose: 2 drops Pregabalin (Lyrica) 200 mg PO BID [facility] Stop: 09/07/18 20:59 Last Admin: 08/09/18 20:28 Dose: 200 mg Admin: 08/09/18 10:42 Dose: 200 mg Admin: 08/08/18 21:55 Dose: 200 mg Vitamin B Complex (Vitamin B Complex) 1 tab PO DAILY [facility] Stop: 09/08/18 08:59 Last Admin: 08/09/18 10:45 Dose: Not Given Discontinued Medications Albuterol (Duoneb) 3 ml NEB NOW STA Stop: 08/08/18 20:56 Last Admin: 08/08/18 21:17 Dose: 3 ml Apixaban (Eliquis) 2.5 mg PO BID [facility] Stop: 09/07/18 20:59 Last Admin: 08/09/18 09:21 Dose: Not Given Admin: 08/08/18 21:48 Dose: 2.5 mg Clopidogrel Bisulfate (Plavix) 75 mg PO QAM [facility] Stop: 09/08/18 08:59 Last Admin: 08/09/18 09:21 Dose: Not Given Sodium Chloride (Nss 1000ml) 1,000 mls @ 125 mls/hr IV .Q8H [facility] Stop: 09/07/18 17:14 Last Infusion: 08/08/18 21:46 Dose: Admin: 08/08/18 17:43 Dose: 125 mls/hr Promethazine HCl 12.5 mg/ (Sodium Chloride) 50.5 mls @ 204 mls/hr IV NOW STA Stop: 08/08/18 17:59 Last Infusion: 08/08/18 18:23 Dose: 0 mls/hr Admin: 08/08/18 18:06 Dose: 204 mls/hr Ceftriaxone Sodium (Rocephin) 1,000 mg in 50 mls @ 100 mls/hr IV NOW STA Stop: 08/08/18 18:18 Last Infusion: 08/08/18 19:00 Dose: 0 mls/hr Admin: 08/08/18 18:23 Dose: 100 mls/hr Magnesium Sulfate/Dextrose (Magnesium Sulfate / D5w) 1 gm in 100 mls @ 100 mls/ hr IV Q1H [facility] Stop: 08/08/18 20:44 Last Admin: 08/08/18 21:45 Dose: Not Given Infusion: 08/08/18 20:30 Dose: 0 mls/hr Admin: 08/08/18 19:23 Dose: 100 mls/hr Magnesium Sulfate/Dextrose (Magnesium Sulfate / D5w) 1 gm in 100 mls @ 100 mls/ hr IV Q1H [facility] Stop: 08/09/18 08:14 Last Infusion: 08/09/18 10:15 Dose: 0 mls/hr Admin: 08/09/18 09:16 Dose: 100 mls/hr Infusion: 08/09/18 09:16 Dose: 100 mls/hr Admin: 08/09/18 08:23 Dose: 100 mls/hr Sodium Chloride (Nss) 500 mls @ 999 mls/hr IV .Q31M ONE Stop: 08/09/18 13:18 Last Infusion: 08/09/18 14:25 Dose: 0 mls/hr Admin: 08/09/18 13:18 Dose: 999 mls/hr Influenza Virus Vaccine (Fluzone High-Dose Pf) 0.5 ml IM .ONCE ONE Stop: 08/09/18 06:31 Last Admin: 08/09/18 08:36 Dose: Not Given Insulin Aspart (Novolog Flexpen) 0 units SC ACHS [facility] Stop: 09/07/18 20:59 Last Admin: 08/08/18 21:50 Dose: 2 units Miscellaneous (Order Awaiting Action) 1 ea N/A QS [facility] Stop: 09/08/18 00:00 Last Admin: 08/09/18 16:06 Dose: Not Given Admin: 08/09/18 13:21 Dose: Not Given Admin: 08/08/18 23:45 Dose: Not Given Ondansetron HCl (Zofran) 4 mg IV NOW STA Stop: 08/08/18 17:14 Last Admin: 08/08/18 17:43 Dose: Not Given Tamsulosin HCl (Flomax) 0.4 mg PO HS [facility] Stop: 09/07/18 20:59 Last Admin: 08/08/18 21:48 Dose: 0.4 mg Medical Decision Making Differential Diagnosis Differential diagnosis: Etiologies such as gastroenteritis, food borne illness, infections, appendicitis , diverticulitis, inflammatory bowel disease, obstruction, GI bleed, biliary pathology, as well as others were entertained. Medical Records Attestation: I reviewed the patient's medical records. Home Medications Current Medication List: was personally reviewed by me Laboratory Data Attestation: I reviewed the patient's lab results. Result diagrams: 08/09/18 06:02 08/09/18 16:05 Lab Results 08/08/18 08/08/18 08/08/18 Range/Units 16:45 16:45 17:35 WBC 4.25 L (4.8-10.8) K/uL RBC 4.16 L (4.2-5.4) M/uL Hgb 12.7 (12.0-16.0) g/dL Hct 40.0 (37-47) % MCV 96.2 (80-100) fL MCH 30.5 (25-34) pg MCHC 31.8 L (32-36) g/dL RDW Std Deviation 55.0 H (36.4-46.3) fL RDW Coeff of Nhi 15.8 H (11.5-14.5) % Plt Count 125 L (130-400) K/uL MPV 12.2 H (7.4-10.4) fL Immature Gran % (Auto) 1.2 % Neut % (Auto) 93.9 % Lymph % (Auto) 3.3 % [place] % (Auto) 1.2 % Eos % (Auto) 0.2 % Baso % (Auto) 0.2 % Immature Gran # (Auto) 0.05 H (0.00-0.02) K/uL Neut # (Auto) 3.99 (1.4-6.5) K/uL Lymph # (Auto) 0.14 L (1.2-3.4) K/uL [place] # (Auto) 0.05 L (0.11-0.59) K/uL Eos # (Auto) 0.01 (0-0.5) K/uL Baso # (Auto) 0.01 (0-0.2) K/uL Absolute Nucleated RBC (0-0) K/uL Nucleated RBC % (auto) % Platelet Estimate (Normal) RBC Morphology Unremarkable PT (9.0-12.0) Seconds INR (0.9-1.1) Sodium 139 (136-145) mmol/L Potassium 4.2 (3.5-5.1) mmol/L Chloride 102 (98-107) mmol/L Carbon Dioxide 27 (21-32) mmol/L Anion Gap 10.0 (3-11) BUN 38 H (7-18) mg/dl Creatinine 1.87 H (0.6-1.2) mg/dl Est Cr Clr Drug Dosing 25.6 ml/min Est GFR ( Amer) 29.5 Est GFR (Non-Af Amer) 25.5 BUN/Creatinine Ratio 20.3 H (10-20) Glucose 187 H (70-99) mg/dl POC Glucose (70-99) Lactate (0.4-2.0) mmol/L Calcium 9.0 (8.5-10.1) mg/dl Magnesium 1.5 L (1.8-2.4) mg/dl Total Bilirubin 0.7 (0.2-1) mg/dl AST 20 (15-37) U/L ALT 33 (12-78) U/L Alkaline Phosphatase 80 (45-117) U/L Troponin I < 0.015 (0-0.045) ng/ml Total Protein 7.3 (6.4-8.2) gm/dl Albumin 3.4 (3.4-5.0) gm/dl Globulin 3.9 (2.5-4.0) gm/dl Albumin/Globulin Ratio 0.9 (0.9-2) Lipase 194 (73-393) U/L Urine Color Yellow Urine Appearance Clear (Clear) Urine pH 5.0 (4.5-7.5) Ur Specific [place] 1.010 (1.000-1.030) Urine Protein 1+ H (Negative) Urine Glucose (UA) Negative (Negative) Urine Ketones Negative (Negative) Urine Blood 1+ H (Negative) Urine Nitrite Negative (Negative) Urine Bilirubin Negative (Negative) Urine Urobilinogen Negative (Negative) Ur Leukocyte Esterase Trace H (Negative) Urine WBC (Auto) >30 H (0-5) /hpf Urine RBC (Auto) 0-4 (0-4) /hpf U Hyaline Cast (Auto) 0 (0-5) /lpf U Epithel Cells (Auto) 0-5 (0-5) /lpf Urine Bacteria (Auto) 3+ H (Negative) 08/08/18 08/09/18 08/09/18 Range/Units 20:31 05:57 06:02 WBC 13.55 H (4.8-10.8) K/uL RBC 3.52 L (4.2-5.4) M/uL Hgb 10.9 L (12.0-16.0) g/dL Hct 34.0 L (37-47) % MCV 96.6 (80-100) fL MCH 31.0 (25-34) pg MCHC 32.1 (32-36) g/dL RDW Std Deviation 57.5 H (36.4-46.3) fL RDW Coeff of Nhi 16.2 H (11.5-14.5) % Plt Count 123 L (130-400) K/uL MPV 12.8 H (7.4-10.4) fL Immature Gran % (Auto) 0.3 % Neut % (Auto) 88.5 % Lymph % (Auto) 4.4 % [place] % (Auto) 6.7 % Eos % (Auto) 0.0 % Baso % (Auto) 0.1 % Immature Gran # (Auto) 0.04 H (0.00-0.02) K/uL Neut # (Auto) 11.98 H (1.4-6.5) K/uL Lymph # (Auto) 0.60 L (1.2-3.4) K/uL [place] # (Auto) 0.91 H (0.11-0.59) K/uL Eos # (Auto) 0.00 (0-0.5) K/uL Baso # (Auto) 0.02 (0-0.2) K/uL Absolute Nucleated RBC 0.05 H (0-0) K/uL Nucleated RBC % (auto) 0.4 % Platelet Estimate Decreased (Normal) RBC Morphology PT (9.0-12.0) Seconds INR (0.9-1.1) Sodium (136-145) mmol/L Potassium (3.5-5.1) mmol/L Chloride (98-107) mmol/L Carbon Dioxide (21-32) mmol/L Anion Gap (3-11) BUN (7-18) mg/dl Creatinine (0.6-1.2) mg/dl Est Cr Clr Drug Dosing ml/min Est GFR ( Amer) Est GFR (Non-Af Amer) BUN/Creatinine Ratio (10-20) Glucose (70-99) mg/dl POC Glucose 181 H 269 H (70-99) Lactate (0.4-2.0) mmol/L Calcium (8.5-10.1) mg/dl Magnesium (1.8-2.4) mg/dl Total Bilirubin (0.2-1) mg/dl AST (15-37) U/L ALT (12-78) U/L Alkaline Phosphatase (45-117) U/L Troponin I (0-0.045) ng/ml Total Protein (6.4-8.2) gm/dl Albumin (3.4-5.0) gm/dl Globulin (2.5-4.0) gm/dl Albumin/Globulin Ratio (0.9-2) Lipase (73-393) U/L Urine Color Urine Appearance (Clear) Urine pH (4.5-7.5) Ur Specific [place] (1.000-1.030) Urine Protein (Negative) Urine Glucose (UA) (Negative) Urine Ketones (Negative) Urine Blood (Negative) Urine Nitrite (Negative) Urine Bilirubin (Negative) Urine Urobilinogen (Negative) Ur Leukocyte Esterase (Negative) Urine WBC (Auto) (0-5) /hpf Urine RBC (Auto) (0-4) /hpf U Hyaline Cast (Auto) (0-5) /lpf U Epithel Cells (Auto) (0-5) /lpf Urine Bacteria (Auto) (Negative) 08/09/18 08/09/18 08/09/18 Range/Units 06:02 11:43 14:33 WBC (4.8-10.8) K/uL RBC (4.2-5.4) M/uL Hgb (12.0-16.0) g/dL Hct (37-47) % MCV (80-100) fL MCH (25-34) pg MCHC (32-36) g/dL RDW Std Deviation (36.4-46.3) fL RDW Coeff of Nhi (11.5-14.5) % Plt Count (130-400) K/uL MPV (7.4-10.4) fL Immature Gran % (Auto) % Neut % (Auto) % Lymph % (Auto) % [place] % (Auto) % Eos % (Auto) % Baso % (Auto) % Immature Gran # (Auto) (0.00-0.02) K/uL Neut # (Auto) (1.4-6.5) K/uL Lymph # (Auto) (1.2-3.4) K/uL [place] # (Auto) (0.11-0.59) K/uL Eos # (Auto) (0-0.5) K/uL Baso # (Auto) (0-0.2) K/uL Absolute Nucleated RBC (0-0) K/uL Nucleated RBC % (auto) % Platelet Estimate (Normal) RBC Morphology PT (9.0-12.0) Seconds INR (0.9-1.1) Sodium 138 (136-145) mmol/L Potassium 5.1 D (3.5-5.1) mmol/L Chloride 100 (98-107) mmol/L Carbon Dioxide 31 (21-32) mmol/L Anion Gap 7.0 (3-11) BUN 44 H (7-18) mg/dl Creatinine 2.42 H D (0.6-1.2) mg/dl Est Cr Clr Drug Dosing 19.8 ml/min Est GFR ( Amer) 21.6 Est GFR (Non-Af Amer) 18.7 BUN/Creatinine Ratio 18.0 (10-20) Glucose 244 H (70-99) mg/dl POC Glucose 180 H (70-99) Lactate 0.9 (0.4-2.0) mmol/L Calcium 8.2 L (8.5-10.1) mg/dl Magnesium 2.0 (1.8-2.4) mg/dl Total Bilirubin (0.2-1) mg/dl AST (15-37) U/L ALT (12-78) U/L Alkaline Phosphatase (45-117) U/L Troponin I (0-0.045) ng/ml Total Protein (6.4-8.2) gm/dl Albumin (3.4-5.0) gm/dl Globulin (2.5-4.0) gm/dl Albumin/Globulin Ratio (0.9-2) Lipase (73-393) U/L Urine Color Urine Appearance (Clear) Urine pH (4.5-7.5) Ur Specific [place] (1.000-1.030) Urine Protein (Negative) Urine Glucose (UA) (Negative) Urine Ketones (Negative) Urine Blood (Negative) Urine Nitrite (Negative) Urine Bilirubin (Negative) Urine Urobilinogen (Negative) Ur Leukocyte Esterase (Negative) Urine WBC (Auto) (0-5) /hpf Urine RBC (Auto) (0-4) /hpf U Hyaline Cast (Auto) (0-5) /lpf U Epithel Cells (Auto) (0-5) /lpf Urine Bacteria (Auto) (Negative) 08/09/18 08/09/18 08/09/18 Range/Units 16:04 16:05 17:56 WBC (4.8-10.8) K/uL RBC (4.2-5.4) M/uL Hgb (12.0-16.0) g/dL Hct (37-47) % MCV (80-100) fL MCH (25-34) pg MCHC (32-36) g/dL RDW Std Deviation (36.4-46.3) fL RDW Coeff of Nhi (11.5-14.5) % Plt Count (130-400) K/uL MPV (7.4-10.4) fL Immature Gran % (Auto) % Neut % (Auto) % Lymph % (Auto) % [place] % (Auto) % Eos % (Auto) % Baso % (Auto) % Immature Gran # (Auto) (0.00-0.02) K/uL Neut # (Auto) (1.4-6.5) K/uL Lymph # (Auto) (1.2-3.4) K/uL [place] # (Auto) (0.11-0.59) K/uL Eos # (Auto) (0-0.5) K/uL Baso # (Auto) (0-0.2) K/uL Absolute Nucleated RBC (0-0) K/uL Nucleated RBC % (auto) % Platelet Estimate (Normal) RBC Morphology PT 10.7 (9.0-12.0) Seconds INR 1.1 (0.9-1.1) Sodium 139 (136-145) mmol/L Potassium 4.2 D (3.5-5.1) mmol/L Chloride 101 (98-107) mmol/L Carbon Dioxide 31 (21-32) mmol/L Anion Gap 7.0 (3-11) BUN 46 H (7-18) mg/dl Creatinine 2.67 H (0.6-1.2) mg/dl Est Cr Clr Drug Dosing 17.9 ml/min Est GFR ( Amer) 19.2 Est GFR (Non-Af Amer) 16.6 BUN/Creatinine Ratio 17.2 (10-20) Glucose 117 H (70-99) mg/dl POC Glucose 128 H (70-99) Lactate (0.4-2.0) mmol/L Calcium 8.3 L (8.5-10.1) mg/dl Magnesium (1.8-2.4) mg/dl Total Bilirubin (0.2-1) mg/dl AST (15-37) U/L ALT (12-78) U/L Alkaline Phosphatase (45-117) U/L Troponin I 0.035 (0-0.045) ng/ml Total Protein (6.4-8.2) gm/dl Albumin (3.4-5.0) gm/dl Globulin (2.5-4.0) gm/dl Albumin/Globulin Ratio (0.9-2) Lipase (73-393) U/L Urine Color Urine Appearance (Clear) Urine pH (4.5-7.5) Ur Specific [place] (1.000-1.030) Urine Protein (Negative) Urine Glucose (UA) (Negative) Urine Ketones (Negative) Urine Blood (Negative) Urine Nitrite (Negative) Urine Bilirubin (Negative) Urine Urobilinogen (Negative) Ur Leukocyte Esterase (Negative) Urine WBC (Auto) (0-5) /hpf Urine RBC (Auto) (0-4) /hpf U Hyaline Cast (Auto) (0-5) /lpf U Epithel Cells (Auto) (0-5) /lpf Urine Bacteria (Auto) (Negative) 08/09/18 08/09/18 Range/Units 22:06 23:40 WBC (4.8-10.8) K/uL RBC (4.2-5.4) M/uL Hgb (12.0-16.0) g/dL Hct (37-47) % MCV (80-100) fL MCH (25-34) pg MCHC (32-36) g/dL RDW Std Deviation (36.4-46.3) fL RDW Coeff of Nhi (11.5-14.5) % Plt Count (130-400) K/uL MPV (7.4-10.4) fL Immature Gran % (Auto) % Neut % (Auto) % Lymph % (Auto) % [place] % (Auto) % Eos % (Auto) % Baso % (Auto) % Immature Gran # (Auto) (0.00-0.02) K/uL Neut # (Auto) (1.4-6.5) K/uL Lymph # (Auto) (1.2-3.4) K/uL [place] # (Auto) (0.11-0.59) K/uL Eos # (Auto) (0-0.5) K/uL Baso # (Auto) (0-0.2) K/uL Absolute Nucleated RBC (0-0) K/uL Nucleated RBC % (auto) % Platelet Estimate (Normal) RBC Morphology PT (9.0-12.0) Seconds INR (0.9-1.1) Sodium (136-145) mmol/L Potassium (3.5-5.1) mmol/L Chloride (98-107) mmol/L Carbon Dioxide (21-32) mmol/L Anion Gap (3-11) BUN (7-18) mg/dl Creatinine (0.6-1.2) mg/dl Est Cr Clr Drug Dosing ml/min Est GFR ( Amer) Est GFR (Non-Af Amer) BUN/Creatinine Ratio (10-20) Glucose (70-99) mg/dl POC Glucose 148 H (70-99) Lactate (0.4-2.0) mmol/L Calcium (8.5-10.1) mg/dl Magnesium (1.8-2.4) mg/dl Total Bilirubin (0.2-1) mg/dl AST (15-37) U/L ALT (12-78) U/L Alkaline Phosphatase (45-117) U/L Troponin I 0.022 (0-0.045) ng/ml Total Protein (6.4-8.2) gm/dl Albumin (3.4-5.0) gm/dl Globulin (2.5-4.0) gm/dl Albumin/Globulin Ratio (0.9-2) Lipase (73-393) U/L Urine Color Urine Appearance (Clear) Urine pH (4.5-7.5) Ur Specific [place] (1.000-1.030) Urine Protein (Negative) Urine Glucose (UA) (Negative) Urine Ketones (Negative) Urine Blood (Negative) Urine Nitrite (Negative) Urine Bilirubin (Negative) Urine Urobilinogen (Negative) Ur Leukocyte Esterase (Negative) Urine WBC (Auto) (0-5) /hpf Urine RBC (Auto) (0-4) /hpf U Hyaline Cast (Auto) (0-5) /lpf U Epithel Cells (Auto) (0-5) /lpf Urine Bacteria (Auto) (Negative) Imaging Data Radiologist's Impression: Radiology results as stated below per my review and the radiologist's interpretation: CT SCAN OF THE ABDOMEN AND PELVIS WITHOUT CONTRAST CLINICAL HISTORY: Left flank pain. A urinary tract infection. COMPARISON STUDY: 06/26/2018 TECHNIQUE: CT scan of the abdomen and pelvis was performed from the lung bases to the proximal femurs. Images are reviewed in the axial, sagittal, and coronal planes. IV contrast was not administered for this examination. A dose lowering technique was utilized adhering to the principles of ALARA. CT DOSE: 935.74 mGycm FINDINGS: Lower chest: The heart is enlarged. There are coronary artery calcifications present. There are persistent right dependent bibasilar opacities right greater than left. Liver: The unenhanced liver is normal in size, contour, and attenuation. There is no intrahepatic biliary ductal dilatation. Gallbladder: Unremarkable. Spleen: There is a subtle splenic hypodensity, similar to the prior study. A splenic calcification is also evident Pancreas: Unremarkable. Adrenal glands: Unremarkable. Kidneys: The left kidney is atrophic. There is a lower pole calculus. There is mild left-sided periureteral edema. There is a 2.5 mm distal left ureteral calculus as above the level of the UVJ. Bowel: There are no transition zones indicate bowel obstruction. There is no acute diverticulitis. There are multiple colonic diverticula present. By history the appendix is surgically absent. Peritoneum: There is no intraperitoneal free air or abdominal ascites. There is a blunted intraperitoneal fat. Vasculature: Atherosclerotic changes are present. There is no evidence of abdominal aortic aneurysm. Adenopathy: None. Pelvic viscera: The uterus is surgically absent. Skeletal structures: No destructive osseous lesions are seen. IMPRESSION: 1. 2.5 mm distal left ureteral calculus with mild secondary obstructive changes 2. Left-sided nephrolithiasis. Renal atrophy. 3. Diverticulosis. No evidence of acute diverticulitis 4. No evidence of bowel obstruction. No evidence of free air 5. Stable bilateral lower lobe dependent parenchymal opacities Electronically signed by: Olaf Muir M.D. 08/08/2018 6:24 PM XR chest 1V portable CLINICAL HISTORY: sob COMPARISON STUDY: 07/04/2018 FINDINGS: The heart is enlarged. There is a left-sided A-Port catheter present. There is continued radiographic evidence of congestive failure with pulmonary edema. Suspected trace pleural effusions.[ IMPRESSION: Stable findings. Persistent cardiomegaly and radiographic evidence of congestive failure with pulmonary edema Electronically signed by: Olaf Muir M.D. 08/08/2018 5:42 PM ECG Data Attestation: I personally reviewed and interpreted this ECG as follows: Indication: nausea Rate (beats per minute): 74 Rhythm: sinus rhythm Findings: + other (normal axis, normal intervals) and + T-wave inversion (leads I, II, aVL, V4-V6) Comparison ECG Date: from (07/06/18) Change: the following changes noted (T-wave inversion in V4-V6 is new) Blood Pressure Blood Pressure Findings: Elevated blood pressure Blood Pressure Disposition: further management by hospitalist MDM Narrative Patient here initially ill-appearing, however responded to gentle IV hydration and antiemetics. Patient likely with intolerance/allergy to Bactrim which she was started on again for a urinary tract infection as an outpatient. Patient does have a prior history of UTI. Given patient's complaint of low back pain and worsening symptoms, concern for possible evolving pyelonephritis. On CT patient found to have a distal left ureteral stone. Patient has previously had and spontaneously passed a kidney stone. Due to patient's chronic kidney disease, infection, and concurrent stone, discussed with patient continued monitoring and inpatient evaluation due to risks of additional complication, as well as patient's very tenuous volume status due to prior heart history. Patient was in agreement with this plan. Case discussed with Dr. Mir, urology. No need for emergent intervention at this time given the size and location of the stone, however they will reevaluate in the morning. He was comfortable with IV Rocephin started in the ER did not feel additional antibiotics were warranted at this time. We were unable to obtain the urine culture at this time as the office was closed. Discussed with him that hopefully this can be obtained tomorrow to assure the patient would not need additional coverage for possible Pseudomonas. Case discussed with hospitalist for additional evaluation and management and discussion with urology conveyed to them. Impression & Plan UTI (urinary tract infection), Ureterolithiasis, Chronic kidney disease, Nausea & vomiting Discharge Plan Visit Data *Final* Discharge Date/Time: 08/08/18 20:08 Chief Complaint: Urinary Symptoms Stated Complaint: BAD REACTION FROM DRUG TREATING UTI ED Provider: Arleth Centeno Discharge Problem: UTI (urinary tract infection), Ureterolithiasis, Chronic kidney disease, Nausea & vomiting Patient Disposition: Admitted As Inpatient Discharge Instructions Interventions: ED Discharge Assessment Last Done: 08/08/18 20:08 The scribe's documentation has been prepared under my direction and personally reviewed by me in its entirety. I confirm that the note above accurately reflects all work, treatment, procedures, and medical decision making performed by me.
[2018-08-10] MEDS: SODIUM CHLORIDE 0.9% 1000ML 1,000 ML IV SCH (01:34)
[2018-08-10] MEDS: INSULIN ASPART 100 UNITS/ML 3 ML PEN SC SCH ×4 (05:46→21:35)
[2018-08-10 05:53] LABS: Hemoglobin 10.8 g/dL (12.0-16.0); Mean Corpuscular Hgb Conc 30.9 g/dL (32-36); Mean Corpuscular Volume 99.2 fL (80-100); Mean Platelet Volume 12.4 fL (7.4-10.4); Platelet Count 108 K/uL (130-400); RDW Coefficient of Variation 16.4 % (11.5-14.5); RDW Standard Deviation 59.1 fL (36.4-46.3); Red Blood Count 3.53 M/uL (4.2-5.4); White Blood Count 9.11 K/uL (4.8-10.8)
[2018-08-10 06:37] LABS: BUN Creatinine Ratio 21.6 (10-20); Calcium 7.7 mg/dl (8.5-10.1); Est GFR (African American) 20.6; Est GFR (Non-African American) 17.8; Magnesium 2.7 mg/dl (1.8-2.4); Potassium 4.9 mmol/L (3.5-5.1)
[2018-08-10] MEDS: HEPARIN 100 UNIT/ML 5ML FLUSH FLUSH PRN ×2 (08:18→18:04)
--- NOTE | 2018-08-10 08:51 | Anesthesiology Consultation ---
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 Date Last Intake of Fluids: 08/09/18 Time Last Intake of Fluids: 00:00 Date Last Intake of Solids: 08/09/18 Time Last Intake of Solids: 00:00 History Surgery Operation Date: 08/09/18 17:30 Proposed Procedures p Cystoscopy, Left Stent Placement - Gregory Au MD Operation Date: 08/10/18 08:15 Proposed Procedures p Cystoscopy Left Stent Insertion - Zack Mir II, DO Height/Weight Height: 1.55 m Weight: 91.6 kg Allergies Allergy/AdvReac Type Severity Reaction Status Date / Time eptifibatide Allergy Severe ANAPHYLAXIS Verified 08/08/18 18:17 hornet venom Allergy Severe WASP VENOM Verified 08/08/18 18:17 PROTEIN-ANAPHYLAXIS mivacurium Allergy Intermediate palpatation Verified 08/08/18 18:17 s atorvastatin Allergy Unknown MUSCLE PAIN Verified 08/08/18 18:17 ezetimibe Allergy Unknown MUSCLE PAIN Verified 08/08/18 18:17 simvastatin Allergy Unknown MUSCLE PAIN Verified 08/08/18 18:17 warfarin AdvReac Intermediate EXTREME Verified 08/08/18 18:17 BLEEDING TIMES codeine AdvReac Mild VOMITING Verified 08/08/18 18:17 gemfibrozil AdvReac Mild NAUSEA Verified 08/08/18 18:17 meperidine AdvReac Mild VOMITING Verified 08/08/18 18:17 ondansetron AdvReac Mild vomiting Verified 08/08/18 18:17 ranitidine [From Zantac] AdvReac Mild dyspepsia Verified 08/08/18 18:17 cortisone AdvReac Unknown INCREASES Verified 08/08/18 18:17 SUGAR AND VOMITING? hydralazine AdvReac Unknown VOMITING Verified 08/08/18 18:17 ibuprofen AdvReac Unknown VOMITING Verified 08/08/18 18:17 AND DIARRHEA iodine AdvReac Unknown SHELLFISH Verified 08/08/18 18:17 - VOMITING shellfish derived AdvReac Unknown VOMITING Verified 08/08/18 18:17 Sulfa (Sulfonamide AdvReac Unknown VOMITING Verified 08/08/18 18:17 Antibiotics) Medications Home Medications Medication Instructions Recorded Confirmed Last Taken amiodarone [Pacerone] 100 mg PO BID 06/20/18 08/08/18 08/08/18 ascorbic acid (vitamin C) [Vitamin 1 g PO DAILY 06/20/18 08/08/18 08/07/18 C] buspirone 5 mg PO BID 06/20/18 08/08/18 08/08/18 ergocalciferol (vitamin D2) 50,000 unit PO MONTHLY 06/20/18 08/08/18 05/27/18 [Vitamin D2] folic acid 0.4 mg PO BID 06/20/18 08/08/18 08/07/18 furosemide [Lasix] 40 mg PO Q OTHER DAY 06/20/18 08/08/18 08/08/18 insulin aspart U-100 [Novolog 11 unit SUBCUT QAM 06/20/18 08/08/18 08/08/18 U-100 Insulin aspart] insulin aspart U-100 [Novolog 18 unit SUBCUT LD 06/20/18 08/08/18 08/07/18 U-100 Insulin aspart] insulin aspart U-100 [Novolog 26 unit SUBCUT QPM 06/20/18 08/08/18 08/07/18 U-100 Insulin aspart] insulin glargine [Lantus Solostar 25 unit SUBCUT BID 06/20/18 08/08/18 08/07/18 U-100 Insulin] ipratropium-albuterol [Combivent 1 puff INHALATION Q6H PRN 06/20/18 08/08/18 Unknown Respimat] magnesium oxide [MagOx] 400 mg PO BID 06/20/18 08/08/18 08/07/18 multivitamin 1 tab PO DAILY 06/20/18 08/08/18 08/08/18 nitroglycerin [Nitrostat] 0.4 mg SUBLINGUAL UD PRN 06/20/18 08/08/18 Unknown pregabalin [Lyrica] 200 mg PO BID 06/20/18 08/08/18 08/08/18 tafluprost (PF) [Zioptan (PF)] 1 drp OPB DAILY 06/20/18 08/08/18 08/07/18 vitamin B complex 1 tab PO DAILY 06/20/18 08/08/18 08/07/18 carvedilol 12.5 mg PO BID 30 Days #60 tab 06/22/18 08/08/18 08/07/18 apixaban [Eliquis] 2.5 mg PO BID 07/09/18 08/08/18 08/08/18 clopidogrel 75 mg PO QAM #30 tab 07/09/18 08/08/18 08/08/18 cephalexin 500 mg PO Q12 08/08/18 08/08/18 Unknown sulfamethoxazole-trimethoprim 1 tab PO BID 08/08/18 08/08/18 08/08/18 Active Medications Generic Name Dose Route Start Last Admin Trade Name Freq PRN Reason Stop Dose Admin Acetaminophen 650 mg 08/08/18 20:26 08/09/18 12:17 Tylenol PO 09/07/18 20:25 650 mg Q4H PRN Administration pain/fever Amiodarone HCl 100 mg 08/08/18 21:00 08/09/18 20:46 Cordarone PO 09/07/18 20:59 100 mg BID RAFIA Administration Ascorbic Acid 1,000 mg 08/09/18 09:00 08/09/18 10:45 Vitamin C PO 09/08/18 08:59 Not Given DAILY RAFIA Buspirone HCl 5 mg 08/08/18 21:00 08/09/18 20:29 Buspar PO 09/07/18 20:59 5 mg BID RAFIA Administration Carvedilol 12.5 mg 08/08/18 21:00 08/09/18 20:30 Coreg PO 09/07/18 20:59 Not Given BID RAFIA Folic Acid 400 mcg 08/08/18 21:00 08/09/18 20:29 Folvite PO 09/07/18 20:59 400 mcg BID RAFIA Administration Heparin Sodium (Porcine) 5 ml 08/09/18 00:57 08/10/18 08:18 Heparin Sod 100 Unit/Ml Flush FLUSH 09/08/18 00:59 5 ml PRN PRN Administration Flush Ceftriaxone Sodium 1,000 mg/ 50 mls @ 100 mls/hr 08/09/18 16:00 08/09/18 17: 14 Dextrose IV 08/18/18 15:59 Infused Q24H [facility] Infusion Protocol Insulin Aspart 0 units 08/09/18 06:00 08/10/18 05:46 Novolog Flexpen SC 09/08/18 05:59 2 units Q6 RAFIA Administration Insulin Glargine 12 units 08/08/18 20:26 08/09/18 20:32 Lantus Solostar Pen SC 09/07/18 20:25 12 units Q12H RAFIA Administration Magnesium Oxide 400 mg 08/08/18 21:00 08/09/18 20:30 Mag-Ox PO 09/07/18 20:59 400 mg BID RAFIA Administration Multivitamins 1 tab 08/09/18 09:00 08/09/18 10:45 Multivitamin Tab PO 09/08/18 08:59 Not Given DAILY RAFIA Zioptan- Non- 1 ea 08/09/18 21:00 08/09/18 21:54 Formulary Patient's OP 09/08/18 20:59 2 drops Own Med HS RAFIA Administration Pregabalin 200 mg 08/08/18 21:00 08/09/18 20:28 Lyrica PO 09/07/18 20:59 200 mg BID RAFIA Administration Vitamin B Complex 1 tab 08/09/18 09:00 08/09/18 10:45 Vitamin B Complex PO 09/08/18 08:59 Not Given DAILY RAFIA Beta Sherita Beta Sherita Taken Within 24 Hours: No Past Medical History Medical History CHF (congestive heart failure) JANICE treated with BiPAP Atrial fibrillation CAD (coronary artery disease) Myocardial infarction Peripheral neuropathy (Chronic) Diabetes (Chronic) HTN (hypertension) (Chronic) CKD (chronic kidney disease) stage 3, GFR 30-59 ml/min Respiratory failure Chronic-on 2-3L O2 at home Diffuse large B-cell lymphoma of extranodal site (~08/2012) Past Family History Family History Other Cancer Diabetes Gallbladder disease Heart disease Hypertension Kidney stones Past Surgical History Surgical History S/P cardiac catheterization S/P hysterectomy S/P tonsillectomy Social History Smoking Status: Never smoker Do You Dip or Chew Tobacco: No Hx Alcohol Use: No Hx Substance Use: No Physical Exam Vital Signs Last Vital Signs Temp 36.8 C 08/10/18 07:22 Pulse 59 L 08/10/18 07:22 Resp 22 08/10/18 07:22 BP 153/77 H 08/10/18 07:22 Pulse Ox 97 08/10/18 07:22 Testing Electrocardiogram Date: 08/08/18 Findings: + NSR @ (74bpm with PACs) Sinus rhythm with Premature atrial complexes ST & T wave abnormality, consider lateral ischemia Abnormal ECG When compared with ECG of 06-JUL-2018 16:24, Premature atrial complexes are now Present Confirmed by GREGORY SANDY ([id number]) on 08/09/2018 12:09:36 PM Chest X-Ray Date: 08/08/18 FINDINGS: The heart is enlarged. There is a left-sided A-Port catheter present. There is continued radiographic evidence of congestive failure with pulmonary edema. Suspected trace pleural effusions.[ IMPRESSION: Stable findings. Persistent cardiomegaly and radiographic evidence of congestive failure with pulmonary edema Echocardiogram Date: 06/21/18 EF: 55-60% LV Function: normal (LV borderline dilated) Other Findings: + LVH (Mild CLVH) and + diastolic dysfunction (Gr II) RVSP elevated at 40-50mmHg Laboratory Results 08/10/18 05:36 08/10/18 05:36 PT 10.7 Seconds (9.0-12.0) 08/09/18 16:04 INR 1.1 (0.9-1.1) 08/09/18 16:04 Urine Color Yellow 08/08/18 17:35 Urine Appearance Clear (Clear) 08/08/18 17:35 Urine pH 5.0 (4.5-7.5) 08/08/18 17:35 Ur Specific [place] 1.010 (1.000-1.030) 08/08/18 17:35 Urine Protein 1+ (Negative) H 08/08/18 17:35 Urine Glucose (UA) Negative (Negative) 08/08/18 17:35 Urine Ketones Negative (Negative) 08/08/18 17:35 Urine Nitrite Negative (Negative) 08/08/18 17:35 Ur Leukocyte Esterase Trace (Negative) H 08/08/18 17:35 Urine WBC (Auto) >30 /hpf (0-5) H 08/08/18 17:35 Urine RBC (Auto) 0-4 /hpf (0-4) 08/08/18 17:35 U Hyaline Cast (Auto) 0 /lpf (0-5) 08/08/18 17:35 U Epithel Cells (Auto) 0-5 /lpf (0-5) 08/08/18 17:35 Urine Bacteria (Auto) 3+ (Negative) H 08/08/18 17:35 08/08/18 17:35 Urine Culture - Preliminary Urine,Clean Catch Escherichia coli 08/10/18 08/10/18 08/09/18 08:14 05:33 23:40 POC Glucose 182 H 169 H 148 H
--- NOTE | 2018-08-10 08:57 | XRay Report ---
XR KUB CLINICAL HISTORY: distal stone passage confirmation COMPARISON STUDY: 08/09/2017 FINDINGS: The pelvic calcifications bilaterally are unchanged. As was noted in the addendum per Dr. Aislinn gonzales, there is no evidence for an obstructing calculus on the prior study. Current study therefor e is unchanged. Bilateral renal nephrocalcinosis is unaltered. IMPRESSION: No evidence for a ureteral calculus. No change from the prior study. The above report was generated using voice recognition software. It may contain grammatical, syntax or spelling errors. Electronically signed by: Luciano Longoria M.D. 08/10/2018 8:56 AM
[2018-08-10] MEDS ORDERED: FUROSEMIDE 40 MG TAB PO SCH (09:00)
[2018-08-10] MEDS: FOLIC ACID 400 MCG TAB PO SCH ×2 (09:39→21:05)
[2018-08-10] MEDS: INSULIN GLARGINE SOLOSTAR 100 UNITS/ML 3 ML PEN SC SCH (09:39)
[2018-08-10] MEDS: CARVEDILOL 12.5 MG TAB PO SCH ×2 (09:39→21:04)
[2018-08-10] MEDS: AMIODARONE 200 MG TAB PO SCH ×2 (09:40→21:03)
[2018-08-10] MEDS: VITAMIN B COMPLEX TAB PO SCH (09:41)
[2018-08-10] MEDS: MAGNESIUM OXIDE 400 MG TAB PO SCH ×2 (09:41→21:06)
[2018-08-10] MEDS: MULTIVITAMIN TAB PO SCH (09:42)
[2018-08-10] MEDS: ASCORBIC ACID 500 MG TAB PO SCH (09:42)
[2018-08-10] MEDS: CLOPIDOGREL BISULFATE 75 MG TAB PO SCH (10:21)
[2018-08-10] MEDS: PREGABALIN 100 MG CAP PO SCH ×2 (10:23→21:27)
--- NOTE | 2018-08-10 10:26 | Nephrology Consultation ---
Date of Consultation August 10, 2018 Assessment & Plan (1) Acute kidney injury: Maureen Hagen is a 78-year-old female with stage 3 chronic kidney disease, chronic diastolic dysfunction, coronary artery disease and nephrolithiasis admitted with left-sided ureteral stone. She passed the stone this morning. On admission she was found to have acute kidney injury, creatinine 1.9 with baseline creatinine around 1.5. Over last 2 days renal function worsened and creatinine staying around 2.4-2.5. She has left atrophy kidney. Has low grade proteinuria. Since admission diuretics has been on hold and she has been getting IV hydration. Acute kidney injury could be related to the of right left-sided hydronephrosis however could be hemodynamically mediated with volume overload and decreased cardiac output with history of diastolic dysfunction as diuretics has been on hold. Creatinine already seems to have started slightly to 2.5 this morning from 2.7 yesterday. --currently she denies any significant symptom respiratory distress --avoid further IV fluid --check renal function a.m. --renal function may continue to improve --she does have some sign of volume overload, if renal function stabilize would suggest starting her back on Lasix --no other workup indicated at this time Will follow Thank you for allowing me to participate in your patient's care. It was a pleasure to see Maureen (2) CHF (congestive heart failure): (3) Ureterolithiasis: (4) Chronic kidney disease with active medical management without dialysis, stage 3 (moderate): (5) HTN (hypertension): (6) Diabetes: History of Present Illness Reason for Consultation: Acute kidney injury with history of chronic kidney disease Attending Physician: Catarina Farrell MD History of Present Illness Maureen Hagen 78-year-old female with past medical history significant for stage 3 chronic kidney disease, diabetes, coronary artery disease, congestive heart failure with diastolic dysfunction , nephrolithiasis admitted to the hospital with left ureteral stone with hydronephrosis. Nephrology consult was requested to manage acute kidney injury. Electronic medical records including labs and imaging are reviewed in detail during patient's visit. Maureen presented in emergency room 08/08/2018 with left flank pain. CT abdomen pelvis on admission showed left ureteral 3 millimeter stone with hydronephrosis. She has paroxysmal atrial fibrillation and has been on Eliquis and Plavix and because of high risk of bleeding no urological procedure was planned and waited for the stone to pass. She seems to have passed the stone, this morning KUB showed no remaining stone. Her family flank pain seems to have resolved. She remained afebrile. She has stage 3 chronic kidney disease baseline creatinine around 1.5, secondary to microvascular disease. Has low grade proteinuria. Renal imaging showed atrophic left kidney. On admission creatinine was 1.9 which worsened over last 2 days creatinine staying around 2.4 to 2.5. No history of NSAID exposure. She has history of CHF with diastolic dysfunction at home she was on Lasix 40 milligram every other day. Since admission Lasix has been on hold. On admission chest x-ray showed pulmonary edema. Since then her creatinine was elevated and clinically she was thought to be volume depleted, she was started on IV fluid which she has been getting until this morning. She currently denies any shortness of breath or chest pain. Electrolyte remain acceptable. She is non-oliguric. Blood pressure running slightly elevated. Allergies Allergy/AdvReac Type Severity Reaction Status Date / Time eptifibatide Allergy Severe ANAPHYLAXIS Verified 08/08/18 18:17 hornet venom Allergy Severe WASP VENOM Verified 08/08/18 18:17 PROTEIN-ANAPHYLAXIS mivacurium Allergy Intermediate palpatation Verified 08/08/18 18:17 s atorvastatin Allergy Unknown MUSCLE PAIN Verified 08/08/18 18:17 ezetimibe Allergy Unknown MUSCLE PAIN Verified 08/08/18 18:17 simvastatin Allergy Unknown MUSCLE PAIN Verified 08/08/18 18:17 warfarin AdvReac Intermediate EXTREME Verified 08/08/18 18:17 BLEEDING TIMES codeine AdvReac Mild VOMITING Verified 08/08/18 18:17 gemfibrozil AdvReac Mild NAUSEA Verified 08/08/18 18:17 meperidine AdvReac Mild VOMITING Verified 08/08/18 18:17 ondansetron AdvReac Mild vomiting Verified 08/08/18 18:17 ranitidine [From Zantac] AdvReac Mild dyspepsia Verified 08/08/18 18:17 cortisone AdvReac Unknown INCREASES Verified 08/08/18 18:17 SUGAR AND VOMITING? hydralazine AdvReac Unknown VOMITING Verified 08/08/18 18:17 ibuprofen AdvReac Unknown VOMITING Verified 08/08/18 18:17 AND DIARRHEA iodine AdvReac Unknown SHELLFISH Verified 08/08/18 18:17 - VOMITING shellfish derived AdvReac Unknown VOMITING Verified 08/08/18 18:17 Sulfa (Sulfonamide AdvReac Unknown VOMITING Verified 08/08/18 18:17 Antibiotics) Home Medications Home Medications Medication Instructions Recorded Confirmed Type amiodarone [Pacerone] 100 mg PO BID 06/20/18 08/08/18 History ascorbic acid (vitamin C) [Vitamin 1 g PO DAILY 06/20/18 08/08/18 History C] buspirone 5 mg PO BID 06/20/18 08/08/18 History ergocalciferol (vitamin D2) 50,000 unit PO MONTHLY 06/20/18 08/08/18 History [Vitamin D2] folic acid 0.4 mg PO BID 06/20/18 08/08/18 History furosemide [Lasix] 40 mg PO Q OTHER DAY 06/20/18 08/08/18 History insulin aspart U-100 [Novolog 11 unit SUBCUT QAM 06/20/18 08/08/18 History U-100 Insulin aspart] insulin aspart U-100 [Novolog 18 unit SUBCUT LD 06/20/18 08/08/18 History U-100 Insulin aspart] insulin aspart U-100 [Novolog 26 unit SUBCUT QPM 06/20/18 08/08/18 History U-100 Insulin aspart] insulin glargine [Lantus Solostar 25 unit SUBCUT BID 06/20/18 08/08/18 History U-100 Insulin] ipratropium-albuterol [Combivent 1 puff INHALATION Q6H PRN 06/20/18 08/08/18 History Respimat] magnesium oxide [MagOx] 400 mg PO BID 06/20/18 08/08/18 History multivitamin 1 tab PO DAILY 06/20/18 08/08/18 History nitroglycerin [Nitrostat] 0.4 mg SUBLINGUAL UD PRN 06/20/18 08/08/18 History pregabalin [Lyrica] 200 mg PO BID 06/20/18 08/08/18 History tafluprost (PF) [Zioptan (PF)] 1 drp OPB DAILY 06/20/18 08/08/18 History vitamin B complex 1 tab PO DAILY 06/20/18 08/08/18 History carvedilol 12.5 mg PO BID 30 Days #60 tab 11/29/18 01/15/19 Rx apixaban [Eliquis] 2.5 mg PO BID 07/09/18 08/08/18 History clopidogrel 75 mg PO QAM #30 tab 07/09/18 08/08/18 Rx cephalexin 500 mg PO Q12 08/08/18 08/08/18 History sulfamethoxazole-trimethoprim 1 tab PO BID 08/08/18 08/08/18 History Patient History Medical History CHF (congestive heart failure) JANICE treated with BiPAP Atrial fibrillation CAD (coronary artery disease) Myocardial infarction Peripheral neuropathy (Chronic) Diabetes (Chronic) HTN (hypertension) (Chronic) CKD (chronic kidney disease) stage 3, GFR 30-59 ml/min Respiratory failure Chronic-on 2-3L O2 at home Diffuse large B-cell lymphoma of extranodal site (~08/2012) Surgical History S/P cardiac catheterization S/P hysterectomy S/P tonsillectomy Family History Other Cancer Diabetes Gallbladder disease Heart disease Hypertension Kidney stones Social History marital status: Current Living Situation: Spouse Other Information That Helps Us Care for You: No Feels Safe at Home: Yes Safety Concerns: Feels Safe At This Time Smoking Status: Never smoker Do You Dip or Chew Tobacco: No Hx Alcohol Use: No Hx Substance Use: No Beliefs That Will Affect Care: None Communication Ability: Effective Review of Systems Detailed review of system otherwise unremarkable. Physical Exam 2 Vital Signs (Past 24 Hours): Last Vital Signs Temp 36.8 C 08/10/18 07:22 Pulse 59 L 08/10/18 07:22 Resp 22 08/10/18 07:22 BP 153/77 H 08/10/18 07:22 Pulse Ox 97 08/10/18 07:22 Physical Exam: GENERAL: Elderly female AAA x 3, pleasant, healthy-appearing, not in any distress. HEENT: Atraumatic, normocephalic. NECK: Supple, no JVD, no carotid bruit appreciated. ENT: No sinus tenderness MOUTH and THROAT: Moist oral mucosa, no oral ulcer or pharyngeal erythema RESPIRATORY: Normal breathing efforts, no accessory muscle use, crackles b/l bases. CARDIOVASCULAR: S1, S2 normal, rate rhythm regular. ABDOMEN: Soft, nontender, positive bowel sound. MUSCULOSKELETAL: No CVA tenderness. No joint swelling, erythema or tenderness. Normal range of motion. SKIN: No skin rash EXTREMITY: 1+ b/l lower extremity edema NEURO: No gross focal neurological deficit, speech fluent. 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
--- NOTE | 2018-08-10 10:53 | Cardiology Consultation ---
Date of Consultation August 10, 2018 Assessment & Plan (1) CAD (coronary artery disease): 2. Ureterolithiasis 3. Paroxysmal atrial fibrillation 4. Chronic diastolic heart 5. Acute on chronic kidney disease 6. Insulin dependent diabetes 7. Prior subdural hematoma 8. Hypertension Patient stable from a cardiac standpoint. Remains in sinus rhythm. No recurrent anginal symptoms. No evidence of heart failure on exam today. Patient seems to have passed her stone but if urologic surgery necessary will be okay to proceed with planned procedure without additional risk stratification. Ideally would continue clopidogrel in the perioperative period as is only 1 month out from recent drug-eluting stents. Can hold eliquis as needed. Continue home amiodarone, carvedilol. Hold home diuretics. Thank you for allowing us to participate in the care of this patient. Please contact with any questions. History of Present Illness Attending Physician: Catarina Farrell MD History of Present Illness Mrs. Hagen is a very pleasant 78-year-old female with a history of coronary artery disease status post multivessel stenting, paroxysmal atrial fibrillation/ flutter, apical variant hypertrophic cardiomyopathy, chronic diastolic heart failure, hypertension, hyperlipidemia, insulin dependent diabetes, chronic kidney disease, JANICE on BiPAP, large B-cell lymphoma in remission, and prior subdural hematoma post craniotomy 11/2016. She is well-known to me from the outpatient setting and recent hospitalizations. She was admitted 06/20/18 with chest pain occurring at rest. Her initial EKG was unchanged and troponins were negative. She underwent a dobutamine stress echo which showed preserved LV function with no signs of ischemia. Her troponins post stress were elevated (peak 0.288). She was discharged home on Lasix 40 mg every other day. She was readmitted on 07/04/18 with increased fatigue and shortness of breath, epigastric discomfort, heart failure. Cardiac cath demonstrated severe multivessel CAD and elevated intracardiac filling pressures. She underwent successful PCI of distal RCA with single AWILDA and mid RCA in-stent restenosis with a single AWILDA. She was placed on Plavix following stent placement. She developed recurrent atrial fibrillation during admission and was restarted on Eliquis 2.5 mg BID. She was continued on Amiodarone and carvedilol. She was diuresed with IV Lasix during admission and was discharged on PO Lasix 40 mg every other day. Patient was readmitted 2 days ago in the setting of UTI symptoms and left flank pain ureterolithiasis complicated by KENDELL. Patient treated with IV antibiotics. She reports stone yesterday evening. Today she feels much improved. During episode denies any chest pain denies any palpitations or symptoms consistent with prior atrial fibrillation. Cardiology was consulted for preoperative assessment prior to possible cystoscopy, stent insertion. Allergies Allergy/AdvReac Type Severity Reaction Status Date / Time eptifibatide Allergy Severe ANAPHYLAXIS Verified 08/08/18 18:17 hornet venom Allergy Severe WASP VENOM Verified 08/08/18 18:17 PROTEIN-ANAPHYLAXIS mivacurium Allergy Intermediate palpatation Verified 08/08/18 18:17 s atorvastatin Allergy Unknown MUSCLE PAIN Verified 08/08/18 18:17 ezetimibe Allergy Unknown MUSCLE PAIN Verified 08/08/18 18:17 simvastatin Allergy Unknown MUSCLE PAIN Verified 08/08/18 18:17 warfarin AdvReac Intermediate EXTREME Verified 08/08/18 18:17 BLEEDING TIMES codeine AdvReac Mild VOMITING Verified 08/08/18 18:17 gemfibrozil AdvReac Mild NAUSEA Verified 08/08/18 18:17 meperidine AdvReac Mild VOMITING Verified 08/08/18 18:17 ondansetron AdvReac Mild vomiting Verified 08/08/18 18:17 ranitidine [From Zantac] AdvReac Mild dyspepsia Verified 08/08/18 18:17 cortisone AdvReac Unknown INCREASES Verified 08/08/18 18:17 SUGAR AND VOMITING? hydralazine AdvReac Unknown VOMITING Verified 08/08/18 18:17 ibuprofen AdvReac Unknown VOMITING Verified 08/08/18 18:17 AND DIARRHEA iodine AdvReac Unknown SHELLFISH Verified 08/08/18 18:17 - VOMITING shellfish derived AdvReac Unknown VOMITING Verified 08/08/18 18:17 Sulfa (Sulfonamide AdvReac Unknown VOMITING Verified 08/08/18 18:17 Antibiotics) Home Medications Home Medications Medication Instructions Recorded Confirmed Type amiodarone [Pacerone] 100 mg PO BID 06/20/18 08/08/18 History ascorbic acid (vitamin C) [Vitamin 1 g PO DAILY 06/20/18 08/08/18 History C] buspirone 5 mg PO BID 06/20/18 08/08/18 History ergocalciferol (vitamin D2) 50,000 unit PO MONTHLY 06/20/18 08/08/18 History [Vitamin D2] folic acid 0.4 mg PO BID 06/20/18 08/08/18 History furosemide [Lasix] 40 mg PO Q OTHER DAY 06/20/18 08/08/18 History insulin aspart U-100 [Novolog 11 unit SUBCUT QAM 06/20/18 08/08/18 History U-100 Insulin aspart] insulin aspart U-100 [Novolog 18 unit SUBCUT LD 06/20/18 08/08/18 History U-100 Insulin aspart] insulin aspart U-100 [Novolog 26 unit SUBCUT QPM 06/20/18 08/08/18 History U-100 Insulin aspart] insulin glargine [Lantus Solostar 25 unit SUBCUT BID 06/20/18 08/08/18 History U-100 Insulin] ipratropium-albuterol [Combivent 1 puff INHALATION Q6H PRN 06/20/18 08/08/18 History Respimat] magnesium oxide [MagOx] 400 mg PO BID 06/20/18 08/08/18 History multivitamin 1 tab PO DAILY 06/20/18 08/08/18 History nitroglycerin [Nitrostat] 0.4 mg SUBLINGUAL UD PRN 06/20/18 08/08/18 History pregabalin [Lyrica] 200 mg PO BID 06/20/18 08/08/18 History tafluprost (PF) [Zioptan (PF)] 1 drp OPB DAILY 06/20/18 08/08/18 History vitamin B complex 1 tab PO DAILY 06/20/18 08/08/18 History carvedilol 12.5 mg PO BID 30 Days #60 tab 06/22/18 08/08/18 Rx apixaban [Eliquis] 2.5 mg PO BID 07/09/18 08/08/18 History clopidogrel 75 mg PO QAM #30 tab 07/09/18 08/08/18 Rx cephalexin 500 mg PO Q12 08/08/18 08/08/18 History sulfamethoxazole-trimethoprim 1 tab PO BID 08/08/18 08/08/18 History Patient History Medical History CHF (congestive heart failure) JANICE treated with BiPAP Atrial fibrillation CAD (coronary artery disease) Myocardial infarction Peripheral neuropathy (Chronic) Diabetes (Chronic) HTN (hypertension) (Chronic) CKD (chronic kidney disease) stage 3, GFR 30-59 ml/min Respiratory failure Chronic-on 2-3L O2 at home Diffuse large B-cell lymphoma of extranodal site (~08/2012) Surgical History S/P cardiac catheterization S/P hysterectomy S/P tonsillectomy Family History Other Cancer Diabetes Gallbladder disease Heart disease Hypertension Kidney stones Social History marital status: Current Living Situation: Spouse Other Information That Helps Us Care for You: No Feels Safe at Home: Yes Safety Concerns: Feels Safe At This Time Smoking Status: Never smoker Do You Dip or Chew Tobacco: No Hx Alcohol Use: No Hx Substance Use: No Beliefs That Will Affect Care: None Communication Ability: Effective Review of Systems 10 point review of systems was completed and was otherwise negative unless stated in HPI Physical Exam 2 Vital Signs (Past 24 Hours): Last Vital Signs Temp 36.8 C 08/10/18 07:22 Pulse 59 L 08/10/18 07:22 Resp 22 08/10/18 07:22 BP 153/77 H 08/10/18 07:22 Pulse Ox 97 08/10/18 07:22 Physical Exam: General: Comfortable, no acute distress Eyes: Sclerae anicteric, extraocular movements intact HENT: Oropharynx clear mucous membranes moist Neck: Normal carotid upstrokes, no bruits. No JVD. Lungs: Clear to auscultation bilaterally, no rhonchi or wheezes Cardiac: Regular rate and rhythm, no murmurs, rubs or gallops. Vascular: 2+ radial, DP and PT pulses. No varicosities. Abdomen: Soft, nontender, nondistended, positive bowel sounds. Extremities: Well perfused, trace bilateral edema Skin: No rashes or lesions. Neuro: Nonfocal Psych: Alert orient x3, normal affect and mood _ (1) CAD (coronary artery disease) Coronary Disease-Associated Artery/Lesion type: kaibab artery [place] vs. transplanted heart: kaibab heart Associated angina: without angina Qualified Code(s): I25.10 - Atherosclerotic heart disease of [place] coronary artery without angina pectoris
--- NOTE | 2018-08-10 15:09 | Urology Progress Note ---
Date of Service August 10, 2018 Assessment & Plan (1) Ureterolithiasis: Interval passage of L ureteral stone, confirmed by KUB today. Case discussed with Dr. Mir, unclear if elevated Cr solely due to stone as L kidney is atrophic. Appreciate nephrology's input. No further urologic intervention required at this time. (2) UTI (urinary tract infection): UC&S positive for e. coli - please treat based on sensitivies for 5-7days. Will make f/u outpatient appt with Dr. Au in 3-4 weeks. Thank you for the consultation and allowing us to participate in the care of Ms. Hagen. Please contact us with any additional concerns, questions or changes in patient status. Subjective 78yo F female with history of CKD III, stones, CAD, CHF and AF, on plavix and eliquis. Sitting up in chair at time of evaluation, no family members at bedside. In good spirits. Spontaneously passed distal L ureteral stone last evening. Patient feeling much better, denies flank or suprapubic pain. Mild urgency, frequency - ongoing x1 month, no acute issue. Some dysuria. Tolerating PO diet well. Per patient, she has trouble with recurrent UTI's, requiring antibiotics frequently. Previously managed by PCP. We are happy to work this up as an outpatient. Review of Systems All systems reviewed & are unremarkable except as noted in HPI & below Physical Exam 2 Vital Signs (Past 24 Hours): Last Vital Signs Temp 36.8 C 08/10/18 07:22 Pulse 59 L 08/10/18 07:22 Resp 22 08/10/18 07:22 BP 153/77 H 08/10/18 07:22 Pulse Ox 97 08/10/18 07:22 Physical Exam: A&Ox3 RRR - 2LNC Abd obese, slightly firm but nontender Bladder nondistended, nontended psych- calm, good spirits, good judgement Results & Data Laboratory Results Laboratory Tests Laboratory Tests 08/09/18 16:05 BUN 46 H Creatinine 2.67 H 08/10/18 08/10/18 05:36 05:36 WBC 9.11 Hgb 10.8 L Hct 35.0 L Plt Count 108 L Creatinine 2.52 H _ (1) UTI (urinary tract infection) Encounter type: Hematuria presence: with hematuria Indwelling urinary catheter type: Urinary tract infection type: acute cystitis Qualified Code(s) : N30.01 - Acute cystitis with hematuria
--- NOTE | 2018-08-10 15:32 | Hospitalist Progress Note ---
Date of Service August 10, 2018 Assessment & Plan (1) Ureterolithiasis: - Presented with left flank pain and dysuria; CT A/P showed 2.5 cm distal left ureteral calculus with obstructive changes. - Urology consulted, appreciate input. - Passed stone last evening, symptoms now resolved. No surgical intervention indicated. - Discontinued IV fluids due to evidence of fluid overload. - Advanced diet, tolerating well. (2) UTI (urinary tract infection): - U/a positive, UC +E. coli. - Was started on Bactrim as outpatient by PCP, reports developing allergic reaction of "left flank pain". - Continue Ceftriaxone for empiric coverage. - Urology following, appreciate input. (3) Acute kidney injury: - Creatinine remains elevated, was 2.5 on morning labs; likely pre-renal related to dehydration with slow improvement. - Discontinued IV fluids due to evidence of pulm edema. - Consulted nephro, recommend to continue to monitor renal function & restart home Lasix when creatinine is stable. - Monitor BMP qAM. (4) Chronic kidney disease with active medical management without dialysis, stage 3 (moderate): - Avoid nephrotoxic agents, renally dose all meds. (5) Diabetes: - Most recent A1C was 8.3 in June 2018. - On Lantus 25 units BID at home; will increase back to 18 units BID as diet was restarted. - SSI coverage with gluc checks ac/hs. - Blood glucose levels have been elevated, titrate coverage as needed. (6) Apical variant hypertrophic cardiomyopathy: - Holding home Lasix, will likely need to resume on 08/11/18. - Monitor volume status -- appears volume overloaded. (7) CAD (coronary artery disease): - H/o CAD, most recent cardiac event with cardiac cath on 07/06/18 with placement of AWILDA x 2 to RCA. - EKG negative for changes on admission; Troponin neg x 2. - Continue Coreg 12.5 mg BID with hold parameters. - Resume Eliquis 2.5 mg BID and Plavix 75 mg daily. - May need to start PCSK9 inhibitor as outpatient; is statin intolerant. - Cardiology consulted, appreciate input. (8) Atrial fibrillation: - In NSR at admission. - Continue Amiodarone 100 mg BID. - Continue Coreg 12.5 mg BID with hold parameters. - Resumed Eliquis. (9) HTN (hypertension): - Hypotension now improving. - Holding home Lasix; continue Coreg with hold parameters. (10) CHF (congestive heart failure): - Has chronic diastolic CHF; has evidence of fluid overload. - Holding home Lasix, will likely resume over next 24 hours. - Continue Coreg as prescribed. - Monitor daily weights and I/Os. (11) JANICE treated with BiPAP: - BiPAP qhs. (12) Acute and chronic respiratory failure: - Requires 2-3L via NC at home chronically. (13) Anxiety: - Continue Buspar 5 mg BID as prescribed. (14) DVT prophylaxis: - Continue Plavix & Eliquis. Dispo: Discharge on 08/11/18 pending improvement in renal function. PT/OT ordered. Supervising Physician Co-Signing Physician Notes PA Supervision Note: I did not personally see or examine the patient today, but I verified all [place] points of JEFE Chaves's assessment and plan with the following exceptions/ additions: None Subjective Pt. is doing well overall. Stone passed last evening. She had hematuria yesterday, now resolved. Left flank pain and N/V completely resolved. No indication for procedure. Creatinine remains elevated, will continue to monitor. Nephro consulted, appreciate input. IV fluids discontinued this AM due to crackles on lung exam, evidence of fluid overload. Will continue to hold home Lasix, may restart on 08/11/18. Will also restart home Eliquis as pt. will not require procedure. Review of Systems All systems reviewed & are unremarkable except as noted in HPI & below Constitutional: no fever and no chills Respiratory: no cough and no dyspnea Cardiovascular: no chest pain, no palpitations and no edema Gastrointestinal: no abdominal pain, no nausea and no constipation Genitourinary (Female): no difficulty urinating and no hematuria Musculoskeletal: no joint pain Allergy / Immunological: no rash Physical Exam 2 Vital Signs (Past 24 Hours): Last Vital Signs Temp 36.8 C 08/10/18 07:22 Pulse 59 L 08/10/18 07:22 Resp 22 08/10/18 07:22 BP 153/77 H 08/10/18 07:22 Pulse Ox 97 08/10/18 07:22 Physical Exam: General: Resting comfortably in no apparent distress HEENT: NC/AT; PERRLA with EOMI; [place] conjunctiva, MMM. Neck: Supple and nontender Cardiac: RRR Lungs: on 2L via NC; crackles in bilat lower lung bases Abdomen: Bowel normoactive X 4; Nontender to palpation Extremities: Warm. Trace LE edema. Neuro: No focal weakness Skin: No rash Results & Data Laboratory Results 08/10/18 08/10/18 08/10/18 Range/Units 12:02 08:14 05:36 WBC (4.8-10.8) K/uL RBC (4.2-5.4) M/uL Hgb (12.0-16.0) g/dL Hct (37-47) % MCV (80-100) fL MCH (25-34) pg MCHC (32-36) g/dL RDW Std Deviation (36.4-46.3) fL RDW Coeff of Nhi (11.5-14.5) % Plt Count (130-400) K/uL MPV (7.4-10.4) fL PT (9.0-12.0) Seconds INR (0.9-1.1) Sodium 140 (136-145) mmol/L Potassium 4.9 D (3.5-5.1) mmol/L Chloride 105 (98-107) mmol/L Carbon Dioxide 32 (21-32) mmol/L Anion Gap 3.0 (3-11) BUN 54 H (7-18) mg/dl Creatinine 2.52 H (0.6-1.2) mg/dl Est Cr Clr Drug Dosing 19.0 ml/min Est GFR ( Amer) 20.6 Est GFR (Non-Af Amer) 17.8 BUN/Creatinine Ratio 21.6 H (10-20) Glucose 170 H (70-99) mg/dl POC Glucose 175 H 182 H (70-99) Calcium 7.7 L (8.5-10.1) mg/dl Magnesium 2.7 H (1.8-2.4) mg/dl Troponin I (0-0.045) ng/ml 08/10/18 08/10/18 08/09/18 Range/Units 05:36 05:33 23:40 WBC 9.11 (4.8-10.8) K/uL RBC 3.53 L (4.2-5.4) M/uL Hgb 10.8 L (12.0-16.0) g/dL Hct 35.0 L (37-47) % MCV 99.2 (80-100) fL MCH 30.6 (25-34) pg MCHC 30.9 L (32-36) g/dL RDW Std Deviation 59.1 H (36.4-46.3) fL RDW Coeff of Nhi 16.4 H (11.5-14.5) % Plt Count 108 L (130-400) K/uL MPV 12.4 H (7.4-10.4) fL PT (9.0-12.0) Seconds INR (0.9-1.1) Sodium (136-145) mmol/L Potassium (3.5-5.1) mmol/L Chloride (98-107) mmol/L Carbon Dioxide (21-32) mmol/L Anion Gap (3-11) BUN (7-18) mg/dl Creatinine (0.6-1.2) mg/dl Est Cr Clr Drug Dosing ml/min Est GFR ( Amer) Est GFR (Non-Af Amer) BUN/Creatinine Ratio (10-20) Glucose (70-99) mg/dl POC Glucose 169 H 148 H (70-99) Calcium (8.5-10.1) mg/dl Magnesium (1.8-2.4) mg/dl Troponin I (0-0.045) ng/ml 08/09/18 08/09/18 08/09/18 Range/Units 22:06 17:56 16:05 WBC (4.8-10.8) K/uL RBC (4.2-5.4) M/uL Hgb (12.0-16.0) g/dL Hct (37-47) % MCV (80-100) fL MCH (25-34) pg MCHC (32-36) g/dL RDW Std Deviation (36.4-46.3) fL RDW Coeff of Nhi (11.5-14.5) % Plt Count (130-400) K/uL MPV (7.4-10.4) fL PT (9.0-12.0) Seconds INR (0.9-1.1) Sodium 139 (136-145) mmol/L Potassium 4.2 D (3.5-5.1) mmol/L Chloride 101 (98-107) mmol/L Carbon Dioxide 31 (21-32) mmol/L Anion Gap 7.0 (3-11) BUN 46 H (7-18) mg/dl Creatinine 2.67 H (0.6-1.2) mg/dl Est Cr Clr Drug Dosing 17.9 ml/min Est GFR ( Amer) 19.2 Est GFR (Non-Af Amer) 16.6 BUN/Creatinine Ratio 17.2 (10-20) Glucose 117 H (70-99) mg/dl POC Glucose 128 H (70-99) Calcium 8.3 L (8.5-10.1) mg/dl Magnesium (1.8-2.4) mg/dl Troponin I 0.022 0.035 (0-0.045) ng/ml 08/09/18 Range/Units 16:04 WBC (4.8-10.8) K/uL RBC (4.2-5.4) M/uL Hgb (12.0-16.0) g/dL Hct (37-47) % MCV (80-100) fL MCH (25-34) pg MCHC (32-36) g/dL RDW Std Deviation (36.4-46.3) fL RDW Coeff of Nhi (11.5-14.5) % Plt Count (130-400) K/uL MPV (7.4-10.4) fL PT 10.7 (9.0-12.0) Seconds INR 1.1 (0.9-1.1) Sodium (136-145) mmol/L Potassium (3.5-5.1) mmol/L Chloride (98-107) mmol/L Carbon Dioxide (21-32) mmol/L Anion Gap (3-11) BUN (7-18) mg/dl Creatinine (0.6-1.2) mg/dl Est Cr Clr Drug Dosing ml/min Est GFR ( Amer) Est GFR (Non-Af Amer) BUN/Creatinine Ratio (10-20) Glucose (70-99) mg/dl POC Glucose (70-99) Calcium (8.5-10.1) mg/dl Magnesium (1.8-2.4) mg/dl Troponin I (0-0.045) ng/ml _ (1) UTI (urinary tract infection) Encounter type: Hematuria presence: with hematuria Indwelling urinary catheter type: Urinary tract infection type: acute cystitis Qualified Code(s) : N30.01 - Acute cystitis with hematuria (2) Diabetes Chronic kidney disease stage: Diabetes mellitus complication detail: Diabetes mellitus complication status: without complication Diabetes mellitus long-term insulin use: with termite control service representative use Diabetes mellitus macular edema: Diabetes mellitus type: type 2 Diabetic retinopathy severity: Laterality: Proliferative retinopathy type: Qualified Code(s): E11.9 - Type 2 diabetes mellitus without complications; Z79.4 - rn long term care (current) use of insulin (3) CAD (coronary artery disease) Associated angina: without angina Coronary Disease-Associated Artery/Lesion type: [place] artery [place] vs. transplanted heart: [place] heart Qualified Code (s): I25.10 - Atherosclerotic heart disease of [place] coronary artery without angina pectoris (4) CHF (congestive heart failure) Heart failure chronicity: chronic Heart failure type: diastolic Qualified Code(s): I50.32 - Chronic diastolic (congestive) heart failure (5) Atrial fibrillation Atrial fibrillation type: paroxysmal Qualified Code(s): I48.0 - Paroxysmal atrial fibrillation (6) HTN (hypertension) Hypertension type: essential hypertension Qualified Code(s): I10 - Essential (primary) hypertension
[2018-08-10] MEDS: cefTRIAXone SODIUM 1,000 MG in DEXTROSE 5% 50 ML IV SCH (16:51)
[2018-08-10] MEDS ORDERED: INSULIN GLARGINE SOLOSTAR 100 UNITS/ML 3 ML PEN SC SCH (21:00)
[2018-08-10] MEDS: ZIOPTAN OP SCH (21:07)
[2018-08-10] MEDS ORDERED: Nursing to Pharmacy Communication ONE (21:18)
[2018-08-10] MEDS: APIXABAN 2.5 MG TAB PO SCH (21:32)
[2018-08-11 06:24] LABS: Hematocrit (blood only) 34.3 % (37-47); Hemoglobin 10.7 g/dL (12.0-16.0); Mean Corpuscular Hgb Conc 31.2 g/dL (32-36); RDW Coefficient of Variation 16.1 % (11.5-14.5); Red Blood Count 3.43 M/uL (4.2-5.4); White Blood Count 7.67 K/uL (4.8-10.8)
[2018-08-11 06:50] LABS: BUN Creatinine Ratio 24.9 (10-20); Calcium 7.6 mg/dl (8.5-10.1); Creatinine Clr Calc Pharmacy 21.1 ml/min; Est GFR (African American) 22.9; Est GFR (Non-African American) 19.7; Potassium 5.2 mmol/L (3.5-5.1)
[2018-08-11 06:58] LABS: Platelet Count 98 K/uL (130-400)
[2018-08-11] MEDS: INSULIN ASPART 100 UNITS/ML 3 ML PEN SC SCH ×5 (08:22→21:47)
[2018-08-11] MEDS: ALBUT/IPRATROP 3MG/0.5MG NEB 3 ML VIAL NEB PRN ×2 (08:39→22:02)
[2018-08-11] MEDS: CARVEDILOL 12.5 MG TAB PO SCH ×2 (09:08→21:46)
[2018-08-11] MEDS: APIXABAN 2.5 MG TAB PO SCH ×2 (09:09→21:45)
[2018-08-11] MEDS: AMIODARONE 200 MG TAB PO SCH ×2 (09:09→21:45)
[2018-08-11] MEDS: FOLIC ACID 400 MCG TAB PO SCH ×2 (09:10→21:46)
[2018-08-11] MEDS: MULTIVITAMIN TAB PO SCH (09:10)
[2018-08-11] MEDS: VITAMIN B COMPLEX TAB PO SCH (09:11)
[2018-08-11] MEDS: MAGNESIUM OXIDE 400 MG TAB PO SCH ×2 (09:11→21:46)
[2018-08-11] MEDS: ASCORBIC ACID 500 MG TAB PO SCH (09:11)
[2018-08-11] MEDS: CLOPIDOGREL BISULFATE 75 MG TAB PO SCH (09:11)
[2018-08-11] MEDS: INSULIN GLARGINE SOLOSTAR 100 UNITS/ML 3 ML PEN SC SCH ×2 (09:14→21:47)
[2018-08-11] MEDS ORDERED: SODIUM POLYSTYRENE SULFONATE 30 GM/120 ML UDP PO SCH (09:15)
[2018-08-11] MEDS: PREGABALIN 100 MG CAP PO SCH ×2 (09:21→21:46)
[2018-08-11] MEDS ORDERED: SODIUM POLYSTYRENE SULFONATE 15G/60ML SUSP PO ONE (09:45)
--- NOTE | 2018-08-11 14:09 | Nephrology Progress Note ---
Date of Service August 11, 2018 Assessment & Plan (1) Acute kidney injury: Maureen Hagen is a 78-year-old female with stage 3 chronic kidney disease, chronic diastolic dysfunction, coronary artery disease and nephrolithiasis admitted with left-sided ureteral stone. She passed the stone this morning. On admission she was found to have acute kidney injury, creatinine 1.9 with baseline creatinine around 1.5. Over last 2 days renal function worsened and creatinine staying around 2.4-2.5. She has left atrophy kidney. Has low grade proteinuria. Since admission diuretics has been on hold and she has been getting IV hydration. Acute kidney injury could be related to the right left-sided hydronephrosis however could be hemodynamically mediated with volume overload and decreased cardiac output with history of diastolic dysfunction as diuretics has been on hold. Renal function has been slowly improving creatinine down to 2.3 this morning. --resume Lasix at 20 milligrams p.o. daily, 1 dose now --avoid further IV fluid --check renal function a.m. --if renal function continues to improve, can be discharged tomorrow Will follow (2) CHF (congestive heart failure): (3) Ureterolithiasis: (4) Chronic kidney disease with active medical management without dialysis, stage 3 (moderate): (5) HTN (hypertension): (6) Diabetes: Subjective Maureen was seen and examined in her room this morning. She denies any shortness of breath or chest pain. Has been voiding. Blood pressure slightly elevated. Reports being unstable when walks however it has been chronic. Renal function improving but rather slowly. Review of Systems Detailed review of system was otherwise unremarkable. Physical Exam 2 Vital Signs (Past 24 Hours): Last Vital Signs Temp 37 C 08/10/18 23:51 Pulse 53 L 08/11/18 12:17 Resp 20 08/11/18 12:17 BP 178/76 H 08/11/18 13:13 Pulse Ox 98 08/11/18 12:17 Physical Exam: GENERAL: Elderly female, AAA x 3, pleasant, healthy-appearing , not in any distress. NECK: Supple, no JVD. RESPIRATORY: Normal breathing efforts, no accessory muscle use, crackles bilaterally at bases. CARDIOVASCULAR: S1, S2 normal, rate rhythm regular. EXTREMITY: 1+ bilateral lower extremity edema NEURO: speech fluent. PSYCHIATRY: Normal mood and judgment _ (1) CHF (congestive heart failure) Heart failure type: diastolic Heart failure chronicity: chronic Qualified Code(s): I50.32 - Chronic diastolic (congestive) heart failure (2) HTN (hypertension) Hypertension type: essential hypertension Qualified Code(s): I10 - Essential (primary) hypertension (3) Diabetes Diabetes mellitus type: type 2 Diabetes mellitus senior living insulin use: with manager terminal use Diabetes mellitus complication status: without complication Diabetes mellitus complication detail: Diabetic retinopathy severity: Proliferative retinopathy type: Diabetes mellitus macular edema: Laterality : Chronic kidney disease stage: Qualified Code(s): E11.9 - Type 2 diabetes mellitus without complications; Z79.4 - nursing home (current) use of insulin
--- NOTE | 2018-08-11 16:30 | Hospitalist Progress Note ---
Date of Service August 11, 2018 Assessment & Plan (1) Ureterolithiasis: - Presented with left flank pain and dysuria; CT A/P showed 2.5 cm distal left ureteral calculus with obstructive changes. - Urology consulted, appreciate input. - Passed stone on 08/09, symptoms now resolved. No surgical intervention indicated. - Hold IV fluids due to evidence of fluid overload. - Tolerating diet. (2) UTI (urinary tract infection): - U/a positive, UC +E. coli. - Was started on Bactrim as outpatient by PCP, reports developing allergic reaction of "left flank pain". - Converted Ceftriaxone to Cipro per sensitivities. Would treat for 7 day course - Urology following, appreciate input. (3) Acute kidney injury: - Creatinine and BUN remain elevated, will continue to monitor. - Holding IV fluids due to evidence of pulm edema. - Consulted nephro, recommend to monitor renal function over next 24 hours. - Monitor BMP qAM. (4) Chronic kidney disease with active medical management without dialysis, stage 3 (moderate): - Avoid nephrotoxic agents, renally dose all meds. (5) Hyperkalemia: - K level 5.2 in setting of KENDELL. - EKG with no acute changes. - Received Kayexalate 30 gm PO. - Low potassium diet. - Repeat BMP is pending. (6) Diabetes: - Most recent A1C was 8.3 in June 2018. - On Lantus 25 units BID at home; increase back to home dose due to hyperglycemia. - SSI coverage with gluc checks ac/hs. (7) Apical variant hypertrophic cardiomyopathy: - Holding home Lasix, may resume on 08/12/18 pending improvement in renal function. - Monitor volume status -- appears volume overloaded. (8) CAD (coronary artery disease): - H/o CAD, most recent cardiac event with cardiac cath on 07/06/18 with placement of AWILDA x 2 to RCA. - EKG negative for changes on admission; Troponin neg x 2. - Continue Coreg 12.5 mg BID with hold parameters. - Resumed Eliquis 2.5 mg BID and Plavix 75 mg daily. - May need to start PCSK9 inhibitor as outpatient; is statin intolerant. - Cardiology consulted, appreciate input. (9) Atrial fibrillation: - In NSR. - Continue Amiodarone 100 mg BID & Eliquis. - Continue Coreg 12.5 mg BID with hold parameters. (10) HTN (hypertension): - Is now hypertensive with SBP 150-170's. - Holding home Lasix due to KENDELL; continue Coreg. (11) CHF (congestive heart failure): Acute on chronic diastolic CHF - Has chronic diastolic CHF; now has evidence of fluid overload. - Holding home Lasix due to KENDELL, will likely resume on 08/12/18. - Continue Coreg as prescribed. - Monitor daily weights and I/Os. (12) JANICE treated with BiPAP: - BiPAP qhs. (13) Acute and chronic respiratory failure: - Requires 2-3L via NC at home chronically. Possibly some acute component today due to acute CHF as above (14) Anxiety: - Continue Buspar 5 mg BID as prescribed. (15) DVT prophylaxis: - Continue Plavix & Eliquis. Dispo: Discharge pending improvement in renal function. Supervising Physician Co-Signing Physician Notes PA Supervision Note: I did not personally see or examine the patient today, but I verified all [place] points of JEFE Chaves's assessment and plan with the following exceptions/ additions: None Subjective Pt is doing well today. She denies left flank pain, nausea or vomiting. She has SOB, on oxymask or NC, likely related to fluid overload and chronic respiratory failure. Plan for discharge tomorrow pending improvement in renal function. Review of Systems All systems reviewed & are unremarkable except as noted in HPI & below Constitutional: no fever and no chills Respiratory: + dyspnea and + dyspnea on exertion; no cough Cardiovascular: + edema; no chest pain and no palpitations Gastrointestinal: no abdominal pain, no nausea and no constipation Genitourinary (Female): no dysuria Musculoskeletal: no joint pain Allergy / Immunological: no rash Physical Exam 2 Vital Signs (Past 24 Hours): Last Vital Signs Temp 36.5 C 08/11/18 15:30 Pulse 56 L 08/11/18 15:30 Resp 18 08/11/18 15:30 BP 172/76 H 08/11/18 15:30 Pulse Ox 93 08/11/18 15:30 Physical Exam: General: Resting comfortably in no apparent distress HEENT: NC/AT; PERRLA with EOMI; [place] conjunctiva, MMM. Neck: Supple and nontender Cardiac: RRR Lungs: on oxymask; crackles in bilat lower lung bases Abdomen: Bowel normoactive X 4; Nontender to palpation Extremities: Warm. Trace LE edema. Neuro: No focal weakness Skin: No rash Results & Data Laboratory Results 08/11/18 08/11/18 08/11/18 Range/Units 15:59 12:05 08:16 WBC (4.8-10.8) K/uL RBC (4.2-5.4) M/uL Hgb (12.0-16.0) g/dL Hct (37-47) % MCV (80-100) fL MCH (25-34) pg MCHC (32-36) g/dL RDW Std Deviation (36.4-46.3) fL RDW Coeff of Nhi (11.5-14.5) % Plt Count (130-400) K/uL MPV (7.4-10.4) fL Platelet Estimate (Normal) Sodium Pending (136-145) mmol/L Potassium Pending (3.5-5.1) mmol/L Chloride Pending (98-107) mmol/L Carbon Dioxide Pending (21-32) mmol/L Anion Gap Pending (3-11) BUN Pending (7-18) mg/dl Creatinine Pending (0.6-1.2) mg/dl Est Cr Clr Drug Dosing Pending ml/min Est GFR ( Amer) Pending Est GFR (Non-Af Amer) Pending BUN/Creatinine Ratio Pending (10-20) Glucose Pending (70-99) mg/dl POC Glucose 192 H 210 H (70-99) Calcium Pending (8.5-10.1) mg/dl 08/11/18 08/11/18 08/10/18 Range/Units 05:37 05:37 20:33 WBC 7.67 (4.8-10.8) K/uL RBC 3.43 L (4.2-5.4) M/uL Hgb 10.7 L (12.0-16.0) g/dL Hct 34.3 L (37-47) % MCV 100.0 (80-100) fL MCH 31.2 (25-34) pg MCHC 31.2 L (32-36) g/dL RDW Std Deviation 59.0 H (36.4-46.3) fL RDW Coeff of Nhi 16.1 H (11.5-14.5) % Plt Count 98 L (130-400) K/uL MPV 13.0 H (7.4-10.4) fL Platelet Estimate Decreased (Normal) Sodium 138 (136-145) mmol/L Potassium 5.2 H (3.5-5.1) mmol/L Chloride 105 (98-107) mmol/L Carbon Dioxide 27 (21-32) mmol/L Anion Gap 6.0 (3-11) BUN 58 H (7-18) mg/dl Creatinine 2.31 H (0.6-1.2) mg/dl Est Cr Clr Drug Dosing 21.1 ml/min Est GFR ( Amer) 22.9 Est GFR (Non-Af Amer) 19.7 BUN/Creatinine Ratio 24.9 H (10-20) Glucose 216 H (70-99) mg/dl POC Glucose 161 H (70-99) Calcium 7.6 L (8.5-10.1) mg/dl 08/10/18 Range/Units 17:07 WBC (4.8-10.8) K/uL RBC (4.2-5.4) M/uL Hgb (12.0-16.0) g/dL Hct (37-47) % MCV (80-100) fL MCH (25-34) pg MCHC (32-36) g/dL RDW Std Deviation (36.4-46.3) fL RDW Coeff of Nhi (11.5-14.5) % Plt Count (130-400) K/uL MPV (7.4-10.4) fL Platelet Estimate (Normal) Sodium (136-145) mmol/L Potassium (3.5-5.1) mmol/L Chloride (98-107) mmol/L Carbon Dioxide (21-32) mmol/L Anion Gap (3-11) BUN (7-18) mg/dl Creatinine (0.6-1.2) mg/dl Est Cr Clr Drug Dosing ml/min Est GFR ( Amer) Est GFR (Non-Af Amer) BUN/Creatinine Ratio (10-20) Glucose (70-99) mg/dl POC Glucose 206 H (70-99) Calcium (8.5-10.1) mg/dl _ (1) UTI (urinary tract infection) Encounter type: Hematuria presence: with hematuria Indwelling urinary catheter type: Urinary tract infection type: acute cystitis Qualified Code(s) : N30.01 - Acute cystitis with hematuria (2) Diabetes Chronic kidney disease stage: Diabetes mellitus complication detail: Diabetes mellitus complication status: without complication Diabetes mellitus correction insulin use: with correction use Diabetes mellitus macular edema: Diabetes mellitus type: type 2 Diabetic retinopathy severity: Laterality: Proliferative retinopathy type: Qualified Code(s): E11.9 - Type 2 diabetes mellitus without complications; Z79.4 - terminal supervisor (current) use of insulin (3) CAD (coronary artery disease) Associated angina: without angina Coronary Disease-Associated Artery/Lesion type: [place] artery [place] vs. transplanted heart: [place] heart Qualified Code (s): I25.10 - Atherosclerotic heart disease of [place] coronary artery without angina pectoris (4) CHF (congestive heart failure) Heart failure chronicity: chronic Heart failure type: diastolic Qualified Code(s): I50.32 - Chronic diastolic (congestive) heart failure (5) Atrial fibrillation Atrial fibrillation type: paroxysmal Qualified Code(s): I48.0 - Paroxysmal atrial fibrillation (6) HTN (hypertension) Hypertension type: essential hypertension Qualified Code(s): I10 - Essential (primary) hypertension
[2018-08-11 16:36] LABS: BUN Creatinine Ratio 27.2 (10-20); Creatinine Clr Calc Pharmacy 24.2 ml/min; Est GFR (African American) 27.1; Est GFR (Non-African American) 23.3; Potassium 4.7 mmol/L (3.5-5.1)
[2018-08-11] MEDS: FUROSEMIDE 20 MG TAB PO SCH (17:25)
[2018-08-11] MEDS: CIPROFLOXACIN 500 MG TAB PO SCH (21:46)
[2018-08-11] MEDS: ZIOPTAN OP SCH (21:46)
[2018-08-12] MEDS: HEPARIN 100 UNIT/ML 5ML FLUSH FLUSH PRN ×5 (01:06→18:04)
[2018-08-12 06:21] LABS: Hematocrit (blood only) 36.9 % (37-47); Hemoglobin 11.5 g/dL (12.0-16.0); Mean Corpuscular Hgb Conc 31.2 g/dL (32-36); Mean Corpuscular Volume 99.7 fL (80-100); Mean Platelet Volume 12.5 fL (7.4-10.4); Nucleated RBC # (auto) 0.04 K/uL (0-0); Nucleated RBC % (auto) 0.4 %; Platelet Count 125 K/uL (130-400); RDW Coefficient of Variation 15.9 % (11.5-14.5); RDW Standard Deviation 58.4 fL (36.4-46.3); White Blood Count 9.05 K/uL (4.8-10.8)
[2018-08-12 06:46] LABS: BUN Creatinine Ratio 26.3 (10-20); Calcium 7.9 mg/dl (8.5-10.1); Creatinine Clr Calc Pharmacy 24.8 ml/min; Est GFR (African American) 27.9; Est GFR (Non-African American) 24.1; Phosphorus 4.9 mg/dl (2.5-4.9); Potassium 4.8 mmol/L (3.5-5.1)
[2018-08-12] MEDS: ALBUT/IPRATROP 3MG/0.5MG NEB 3 ML VIAL NEB PRN ×2 (07:35→21:57)
[2018-08-12] MEDS: MULTIVITAMIN TAB PO SCH (09:18)
[2018-08-12] MEDS: FOLIC ACID 400 MCG TAB PO SCH ×2 (09:18→21:30)
[2018-08-12] MEDS: AMIODARONE 200 MG TAB PO SCH ×2 (09:19→21:31)
[2018-08-12] MEDS: CLOPIDOGREL BISULFATE 75 MG TAB PO SCH (09:19)
[2018-08-12] MEDS: ASCORBIC ACID 500 MG TAB PO SCH (09:19)
[2018-08-12] MEDS: VITAMIN B COMPLEX TAB PO SCH (09:20)
[2018-08-12] MEDS: CARVEDILOL 12.5 MG TAB PO SCH ×2 (09:20→21:31)
[2018-08-12] MEDS: CIPROFLOXACIN 500 MG TAB PO SCH (09:20)
[2018-08-12] MEDS: APIXABAN 2.5 MG TAB PO SCH ×2 (09:21→21:33)
[2018-08-12] MEDS: FUROSEMIDE 20 MG TAB PO SCH (09:21)
[2018-08-12] MEDS: MAGNESIUM OXIDE 400 MG TAB PO SCH ×2 (09:22→21:30)
[2018-08-12] MEDS: PREGABALIN 100 MG CAP PO SCH ×2 (09:27→21:50)
[2018-08-12] MEDS: INSULIN ASPART 100 UNITS/ML 3 ML PEN SC SCH ×4 (09:34→21:43)
[2018-08-12] MEDS: INSULIN GLARGINE SOLOSTAR 100 UNITS/ML 3 ML PEN SC SCH ×2 (09:36→21:42)
--- NOTE | 2018-08-12 11:13 | Nephrology Progress Note ---
Date of Service August 12, 2018 Assessment & Plan (1) Acute kidney injury: Mrs. Hagen is a 78-year-old female with stage 3 chronic kidney disease, chronic diastolic dysfunction, coronary artery disease and nephrolithiasis admitted with left-sided ureteral stone. She passed the stone 08/11/18. On admission she was found to have acute kidney injury, creatinine 1.9 with baseline creatinine around 1.5. Over last 2 days renal function worsened and creatinine staying around 2.4-2.5. She has left atrophy kidney. Has low grade proteinuria. Since admission diuretics has been on hold and she has been getting IV hydration. -- Patient is now in recovery phase. She is nonoliguric and creatinine has improved to 1.9 -- Continue Furosemide 20 mg daily -- Patient clinically has developed an ileus. Electrolyte balance is acceptable. Recommend checking KUB x-ray and ambulating patient -- Discharge can be considered once patient is moving her bowels, tolerating her diet and able to ambulate / perform ADL's (2) CHF (congestive heart failure): (3) Ureterolithiasis: (4) Chronic kidney disease with active medical management without dialysis, stage 3 (moderate): (5) HTN (hypertension): (6) Diabetes: Subjective Mrs. Hagen was seen and examined in her hospital room this morning. She reports brisk UO but complains of abdominal distention and nausea. Physical Exam 2 Vital Signs (Past 24 Hours): Last Vital Signs Temp 36.6 C 08/12/18 06:49 Pulse 60 08/12/18 07:36 Resp 20 08/12/18 07:36 BP 189/76 H 08/12/18 06:49 Pulse Ox 95 08/12/18 07:36 Constitutional: + obese Respiratory: no respiratory distress Cardiovascular: RRR, no murmur, no edema Gastrointestinal (Abdomen): Inspection/Auscultation: + abdomen distended (no bowel sounds) Percussion/Palpation: abdomen nontender and no guarding Results & Data Laboratory Results Laboratory Tests 08/12/18 06:01 WBC 9.05 Hgb 11.5 L Hct 36.9 L Plt Count 125 L Laboratory Tests 08/12/18 06:01 Sodium 141 Potassium 4.8 Chloride 105 Carbon Dioxide 34 H BUN 52 H Creatinine 1.96 H Calcium 7.9 L Albumin 3.0 L _ (1) CHF (congestive heart failure) Heart failure type: diastolic Heart failure chronicity: chronic Qualified Code(s): I50.32 - Chronic diastolic (congestive) heart failure (2) HTN (hypertension) Hypertension type: essential hypertension Qualified Code(s): I10 - Essential (primary) hypertension (3) Diabetes Diabetes mellitus type: type 2 Diabetes mellitus assisted insulin use: with terminal make up operator use Diabetes mellitus complication status: without complication Diabetes mellitus complication detail: Diabetic retinopathy severity: Proliferative retinopathy type: Diabetes mellitus macular edema: Laterality : Chronic kidney disease stage: Qualified Code(s): E11.9 - Type 2 diabetes mellitus without complications; Z79.4 - [facility] (current) use of insulin
[2018-08-12 11:20] LABS: Base Excess VBG 4.5 mEq/L; Oxygen Saturation VBG 73.8 %; pH VBG 7.24 (7.36-7.41)
--- NOTE | 2018-08-12 11:20 | XRay Report ---
SINGLE VIEW CHEST CLINICAL HISTORY: Dyspnea. FINDINGS: An AP, portable, upright chest radiograph is compared to study dated 08/08/2018 and correlat ed with chest CT dated 06/26/2018. The examination is degraded by portable technique and apical lordot ic positioning. A left subclavian central venous infusion port is unchanged in position. The heart is enlarged and there is atherosclerotic calcification of the thoracic aorta. There is pulmonary vascul ar congestion. Linear atelectasis/scarring is seen in the mid lung bilaterally. There are bibasilar a irspace opacities. Small pleural effusions are suspected. No pneumothorax is seen. The skeletal struc tures are osteopenic. The bony thorax is grossly intact. IMPRESSION: 1. Cardiomegaly with evidence of congestive failure. 2. There are bibasilar airspace opacities and small pleural effusions. This could represent atelectas is versus an infectious/inflammatory pneumonitis. Clinical correlation will be required. Electronically signed by: Eliceo Hart M.D. 08/12/2018 11:19 AM
--- NOTE | 2018-08-12 11:22 | XRay Report ---
KUB CLINICAL HISTORY: Generalized abdominal pain. FINDINGS: 2 AP, portable, supine abdominal radiographs are compared to study dated 08/10/2018 and kimberly elated with abdominal CT dated 08/08/2018. There is a nonobstructed abdominal bowel gas pattern. Moder ate fecal retention is noted in the right colon. No evidence of intraperitoneal free air is seen on t hese supine images. There are no abnormal abdominal calcifications. Phleboliths are noted in the pelv is. The skeletal structures are osteopenic. Moderate to advanced lumbosacral spondylosis is observed. IMPRESSION: Nonobstructed abdominal bowel gas pattern. Electronically signed by: Eliceo Hart M.D. 08/12/2018 11:20 AM
[2018-08-12] MEDS ORDERED: MAGNESIUM HYDROXIDE SUSP 30 ML UDC PO PRN (11:29)
[2018-08-12] MEDS: AMLODIPINE BESYLATE 5 MG TAB PO SCH (11:34)
[2018-08-12 11:41] LABS: BUN Creatinine Ratio 25.8 (10-20); Calcium 7.8 mg/dl (8.5-10.1); Creatinine Clr Calc Pharmacy 25.8 ml/min; Est GFR (African American) 29.1; Est GFR (Non-African American) 25.2; Potassium 4.2 mmol/L (3.5-5.1)
[2018-08-12] MEDS: DOCUSATE SODIUM/SENNA 50/8.6MG TAB PO SCH ×2 (12:40→21:30)
--- NOTE | 2018-08-12 13:14 | Hospitalist Progress Note ---
Date of Service August 12, 2018 Assessment & Plan (1) Acute respiratory failure with hypercapnia: - Developed acute lethargy this morning; VBG showed pH 7.24, pCO2 83. - Has been refusing BiPAP at night for JANICE; will start continuous BiPAP - her will bring her machine from home. - Repeat VBG in 1-2 hours. - Requires 2-3L via NC at home with BiPAP at night chronically. (2) Healthcare-associated pneumonia: - CXR showed no congestive failure; bibasilar opacities concerning for atelectasis vs. PNA - Concern for HAP -- start Cefepime/Levaquin. - MRSA swab pending -- will need Vancomycin if positive. - BiPAP for respiratory failure as noted above. (3) Acute on chronic diastolic heart failure: - Has chronic diastolic CHF; acute fluid overload noted during this admission 2/2 IV fluids. - Monitor daily weights and I/O's. - Resumed Lasix 20 mg PO daily on 08/11; nephro following in setting of ARF. - Continue Coreg as prescribed. (4) Acute chest pain: - Developed chest pain last evening; EKG showed no significant change compared to study at admission. - Troponin was 0.026, now trending down. - Discussed with cardiology due to h/o recent cardiac events, is not concerning for acute ischemia. (5) Constipation: - No BM in 4 days; KUB negative for obstruction. - Start Colace/Senna BID with Miralax TID until pt. has BM; MOM prn. - Pt. received Kayexalate on 08/11 for hyperkalemia with no response. (6) Ureterolithiasis: - Presented with left flank pain and dysuria; CT A/P showed 2.5 cm distal left ureteral calculus with obstructive changes. - Urology consulted, appreciate input. - Passed stone on 08/09, symptoms now resolved. No surgical intervention indicated. (7) UTI (urinary tract infection): - U/a positive, UC +E. coli. - On Cefepime for coverage of PNA/UTI. (8) Acute kidney injury: - Creatinine trending down, baseline ~1.4-1.8; BUN remains elevated above baseline. - Holding IV fluids due to acute CHF. - Consulted nephro, stable for discharge in regards to renal function. - Monitor BMP qAM. (9) Chronic kidney disease with active medical management without dialysis, stage 3 (moderate): - Avoid nephrotoxic agents, renally dose all meds. (10) Hyperkalemia: - K level 5.2 on 08/11, now resolved. - S/p kayexalate, did not have BM following med. - Low potassium diet. (11) Diabetes: - Most recent A1C was 8.3 in June 2018. - Continue home Lantus 25 units BID. - SSI coverage with gluc checks ac/hs. (12) Apical variant hypertrophic cardiomyopathy: - Continue Lasix 20 mg PO daily. - Monitor volume status. (13) CAD (coronary artery disease): - H/o CAD, most recent cardiac event with cardiac cath on 07/06/18 with placement of AWILDA x 2 to RCA. - Continue Coreg 12.5 mg BID. - Resumed Eliquis 2.5 mg BID and Plavix 75 mg daily. - May need to start PCSK9 inhibitor as outpatient; is statin intolerant. - Cardiology consulted, appreciate input. (14) Atrial fibrillation: - In NSR. - Continue Amiodarone 100 mg BID & Eliquis. - Continue Coreg 12.5 mg BID with hold parameters. (15) HTN (hypertension): - Remains hypertensive with SBP 170-180s. - Continue Coreg as prescribed, cannot increase dose due to borderline bradycardia. - Lasix 20 mg PO daily. - Start Amlodipine 5 mg PO daily. (16) JANICE treated with BiPAP: - BiPAP qhs - pt. has been refused, now requiring continuous BiPAP for resp failure. (17) Anxiety: - Continue Buspar 5 mg BID as prescribed. (18) DVT prophylaxis: - Continue Plavix & Eliquis. Dispo: Discharge pending clinical improvement. Supervising Physician Co-Signing Physician Notes Attending Attestation - Pt seen/examined, chart reviewed, care plan d/w JEFE Ugarte. I agree w/ the [place] components of her documentation. Pt was lethargic prior to my bedside visit. By the time of my assessment she was more awake/alert. She c/o fatigue, anorexia, and cough. Some dyspnea. Exam - gen - obese, NAD, mildly sleepy mouth - MMM neck - no JVD heart - RRR lungs - rales bases, decreased BS bases abd - soft NT ext - pulses 2+ b/l A/P: acute/chronic hypoxic/hypercarbic respiratory failure. uncontrolled JANICE. concern for gram negative pneumonia/nosocomial pneumonia. acute/chronic diastolic CHF. recent acute kidney injury. morbid obesity with BMI approaching 40. agree with Ms. Ugarte's care plan including initiation of IV antibiotic therapy. start BIPAP now; to retrieve her personal unit from home sometime today as she does not like hospital supplied BIPAP. Alfredo Goldberg MD Subjective Pt. developed acute lethargy/fatigue this morning. She was alert and oriented x 3 but had significant change compared to baseline. VBG showed CO2 retention -- will start BiPAP. Pt. has been refusing BiPAP at night as ordered. CXR also showed pneumonia -- will start Cefepime/Levaquin for coverage. MRSA swab is pending. She has not had a BM in 4 days -- KUB neg for obstruction. Will start Colace/Senna BID with Miralax TID until she has BM. MOM is also ordered as needed. Review of Systems All systems reviewed & are unremarkable except as noted in HPI & below Constitutional: + weakness; no fever and no chills Respiratory: no cough and no dyspnea Cardiovascular: + edema (Bilat LE); no chest pain and no palpitations Gastrointestinal: + bloating and + constipation; no abdominal pain, no nausea, no vomiting and no diarrhea/loose stools Genitourinary (Female): no difficulty urinating Musculoskeletal: no joint pain Allergy / Immunological: no rash Physical Exam 2 Vital Signs (Past 24 Hours): Last Vital Signs Temp 36.6 C 08/12/18 06:49 Pulse 53 L 08/12/18 12:13 Resp 14 08/12/18 12:13 BP 189/76 H 08/12/18 06:49 Pulse Ox 98 08/12/18 12:13 Physical Exam: General: Resting comfortably in no apparent distress HEENT: NC/AT; PERRLA with EOMI; Franquez conjunctiva, MMM. Neck: Supple and nontender Cardiac: RRR Lungs: on oxymask; crackles in bilat lower lung bases Abdomen: Distended; Bowel hypoactive X 4; Nontender to palpation Extremities: Warm. Trace bilat LE edema. Neuro: No focal weakness Skin: No rash Results & Data Laboratory Results 0108/12/18 08/12/18 Range/Units 12:02 11:07 11:07 WBC (4.8-10.8) K/uL RBC (4.2-5.4) M/uL Hgb (12.0-16.0) g/dL Hct (37-47) % MCV (80-100) fL MCH (25-34) pg MCHC (32-36) g/dL RDW Std Deviation (36.4-46.3) fL RDW Coeff of Nhi (11.5-14.5) % Plt Count (130-400) K/uL MPV (7.4-10.4) fL Absolute Nucleated RBC (0-0) K/uL Nucleated RBC % (auto) % VBG pH (7.36-7.41) VBG pCO2 (38-50) mmHg VBG pO2 mmHg VBG HCO3 mmol/L VBG O2 Saturation % VBG Base Excess mEq/L Barometric Pressure mm/Hg Sodium 141 (136-145) mmol/L Potassium 4.2 (3.5-5.1) mmol/L Chloride 103 (98-107) mmol/L Carbon Dioxide 33 H (21-32) mmol/L Anion Gap 4.0 (3-11) BUN 49 H (7-18) mg/dl Creatinine 1.89 H (0.6-1.2) mg/dl Est Cr Clr Drug Dosing 25.8 ml/min Est GFR ( Amer) 29.1 Est GFR (Non-Af Amer) 25.2 BUN/Creatinine Ratio 25.8 H (10-20) Glucose 134 H (70-99) mg/dl POC Glucose 160 H (70-99) Lactate (0.4-2.0) mmol/L Calcium 7.8 L (8.5-10.1) mg/dl Phosphorus (2.5-4.9) mg/dl Ammonia 19.6 (11-32) umol/L Troponin I (0-0.045) ng/ml Albumin (3.4-5.0) gm/dl 08/12/18 08/12/18 08/12/18 Range/Units 11:07 11:07 08:18 WBC (4.8-10.8) K/uL RBC (4.2-5.4) M/uL Hgb (12.0-16.0) g/dL Hct (37-47) % MCV (80-100) fL MCH (25-34) pg MCHC (32-36) g/dL RDW Std Deviation (36.4-46.3) fL RDW Coeff of Nhi (11.5-14.5) % Plt Count (130-400) K/uL MPV (7.4-10.4) fL Absolute Nucleated RBC (0-0) K/uL Nucleated RBC % (auto) % VBG pH 7.24 L (7.36-7.41) VBG pCO2 83 H (38-50) mmHg VBG pO2 42 mmHg VBG HCO3 34 mmol/L VBG O2 Saturation 73.8 % VBG Base Excess 4.5 mEq/L Barometric Pressure 733.8 mm/Hg Sodium (136-145) mmol/L Potassium (3.5-5.1) mmol/L Chloride (98-107) mmol/L Carbon Dioxide (21-32) mmol/L Anion Gap (3-11) BUN (7-18) mg/dl Creatinine (0.6-1.2) mg/dl Est Cr Clr Drug Dosing ml/min Est GFR ( Amer) Est GFR (Non-Af Amer) BUN/Creatinine Ratio (10-20) Glucose (70-99) mg/dl POC Glucose 136 H (70-99) Lactate 0.5 (0.4-2.0) mmol/L Calcium (8.5-10.1) mg/dl Phosphorus (2.5-4.9) mg/dl Ammonia (11-32) umol/L Troponin I (0-0.045) ng/ml Albumin (3.4-5.0) gm/dl 08/12/18 08/12/18 08/12/18 Range/Units 06:01 06:01 06:01 WBC 9.05 (4.8-10.8) K/uL RBC 3.70 L (4.2-5.4) M/uL Hgb 11.5 L (12.0-16.0) g/dL Hct 36.9 L (37-47) % MCV 99.7 (80-100) fL MCH 31.1 (25-34) pg MCHC 31.2 L (32-36) g/dL RDW Std Deviation 58.4 H (36.4-46.3) fL RDW Coeff of Nhi 15.9 H (11.5-14.5) % Plt Count 125 L (130-400) K/uL MPV 12.5 H (7.4-10.4) fL Absolute Nucleated RBC 0.04 H (0-0) K/uL Nucleated RBC % (auto) 0.4 % VBG pH (7.36-7.41) VBG pCO2 (38-50) mmHg VBG pO2 mmHg VBG HCO3 mmol/L VBG O2 Saturation % VBG Base Excess mEq/L Barometric Pressure mm/Hg Sodium 141 (136-145) mmol/L Potassium 4.8 (3.5-5.1) mmol/L Chloride 105 (98-107) mmol/L Carbon Dioxide 34 H (21-32) mmol/L Anion Gap 2.0 L (3-11) BUN 52 H (7-18) mg/dl Creatinine 1.96 H (0.6-1.2) mg/dl Est Cr Clr Drug Dosing 24.8 ml/min Est GFR ( Amer) 27.9 Est GFR (Non-Af Amer) 24.1 BUN/Creatinine Ratio 26.3 H (10-20) Glucose 118 H (70-99) mg/dl POC Glucose (70-99) Lactate (0.4-2.0) mmol/L Calcium 7.9 L (8.5-10.1) mg/dl Phosphorus 4.9 (2.5-4.9) mg/dl Ammonia (11-32) umol/L Troponin I 0.025 (0-0.045) ng/ml Albumin 3.0 L (3.4-5.0) gm/dl 08/12/18 08/11/18 08/11/18 Range/Units 00:59 20:43 17:12 WBC (4.8-10.8) K/uL RBC (4.2-5.4) M/uL Hgb (12.0-16.0) g/dL Hct (37-47) % MCV (80-100) fL MCH (25-34) pg MCHC (32-36) g/dL RDW Std Deviation (36.4-46.3) fL RDW Coeff of Nhi (11.5-14.5) % Plt Count (130-400) K/uL MPV (7.4-10.4) fL Absolute Nucleated RBC (0-0) K/uL Nucleated RBC % (auto) % VBG pH (7.36-7.41) VBG pCO2 (38-50) mmHg VBG pO2 mmHg VBG HCO3 mmol/L VBG O2 Saturation % VBG Base Excess mEq/L Barometric Pressure mm/Hg Sodium (136-145) mmol/L Potassium (3.5-5.1) mmol/L Chloride (98-107) mmol/L Carbon Dioxide (21-32) mmol/L Anion Gap (3-11) BUN (7-18) mg/dl Creatinine (0.6-1.2) mg/dl Est Cr Clr Drug Dosing ml/min Est GFR ( Amer) Est GFR (Non-Af Amer) BUN/Creatinine Ratio (10-20) Glucose (70-99) mg/dl POC Glucose 202 H 192 H (70-99) Lactate (0.4-2.0) mmol/L Calcium (8.5-10.1) mg/dl Phosphorus (2.5-4.9) mg/dl Ammonia (11-32) umol/L Troponin I 0.026 (0-0.045) ng/ml Albumin (3.4-5.0) gm/dl 08/11/18 Range/Units 15:59 WBC (4.8-10.8) K/uL RBC (4.2-5.4) M/uL Hgb (12.0-16.0) g/dL Hct (37-47) % MCV (80-100) fL MCH (25-34) pg MCHC (32-36) g/dL RDW Std Deviation (36.4-46.3) fL RDW Coeff of Nhi (11.5-14.5) % Plt Count (130-400) K/uL MPV (7.4-10.4) fL Absolute Nucleated RBC (0-0) K/uL Nucleated RBC % (auto) % VBG pH (7.36-7.41) VBG pCO2 (38-50) mmHg VBG pO2 mmHg VBG HCO3 mmol/L VBG O2 Saturation % VBG Base Excess mEq/L Barometric Pressure mm/Hg Sodium 140 (136-145) mmol/L Potassium 4.7 (3.5-5.1) mmol/L Chloride 107 (98-107) mmol/L Carbon Dioxide 32 (21-32) mmol/L Anion Gap 1.0 L (3-11) BUN 55 H (7-18) mg/dl Creatinine 2.01 H D (0.6-1.2) mg/dl Est Cr Clr Drug Dosing 24.2 ml/min Est GFR ( Amer) 27.1 Est GFR (Non-Af Amer) 23.3 BUN/Creatinine Ratio 27.2 H (10-20) Glucose 160 H (70-99) mg/dl POC Glucose (70-99) Lactate (0.4-2.0) mmol/L Calcium 8.0 L (8.5-10.1) mg/dl Phosphorus (2.5-4.9) mg/dl Ammonia (11-32) umol/L Troponin I (0-0.045) ng/ml Albumin (3.4-5.0) gm/dl Diagnostic Findings SINGLE VIEW CHEST CLINICAL HISTORY: Dyspnea. FINDINGS: An AP, portable, upright chest radiograph is compared to study dated and correlated with chest CT dated 06/26/2018. The examination is degraded by portable technique and apical lordotic positioning. A left subclavian central venous infusion port is unchanged in position. The heart is enlarged and there is atherosclerotic calcification of the thoracic aorta. There is pulmonary vascular congestion. Linear atelectasis/scarring is seen in the mid lung bilaterally. There are bibasilar airspace opacities. Small pleural effusions are suspected. No pneumothorax is seen. The skeletal structures are osteopenic. The bony thorax is grossly intact. IMPRESSION: 1. Cardiomegaly with evidence of congestive failure. 2. There are bibasilar airspace opacities and small pleural effusions. This could represent atelectasis versus an infectious/inflammatory pneumonitis. Clinical correlation will be required. KUB CLINICAL HISTORY: Generalized abdominal pain. FINDINGS: 2 AP, portable, supine abdominal radiographs are compared to study dated 08/10/2018 and correlated with abdominal CT dated 08/08/2018. There is a nonobstructed abdominal bowel gas pattern. Moderate fecal retention is noted in the right colon. No evidence of intraperitoneal free air is seen on these supine images. There are no abnormal abdominal calcifications. Phleboliths are noted in the pelvis. The skeletal structures are osteopenic. Moderate to advanced lumbosacral spondylosis is observed. IMPRESSION: Nonobstructed abdominal bowel gas pattern. _ (1) UTI (urinary tract infection) Encounter type: Hematuria presence: with hematuria Indwelling urinary catheter type: Urinary tract infection type: acute cystitis Qualified Code(s) : N30.01 - Acute cystitis with hematuria (2) Diabetes Chronic kidney disease stage: Diabetes mellitus complication detail: Diabetes mellitus complication status: without complication Diabetes mellitus manager long term care insulin use: with manager long term care use Diabetes mellitus macular edema: Diabetes mellitus type: type 2 Diabetic retinopathy severity: Laterality: Proliferative retinopathy type: Qualified Code(s): E11.9 - Type 2 diabetes mellitus without complications; Z79.4 - assisted (current) use of insulin (3) CAD (coronary artery disease) Associated angina: without angina Coronary Disease-Associated Artery/Lesion type: [place] artery [place] vs. transplanted heart: [place] heart Qualified Code (s): I25.10 - Atherosclerotic heart disease of [place] coronary artery without angina pectoris (4) Atrial fibrillation Atrial fibrillation type: paroxysmal Qualified Code(s): I48.0 - Paroxysmal atrial fibrillation (5) HTN (hypertension) Hypertension type: essential hypertension Qualified Code(s): I10 - Essential (primary) hypertension
[2018-08-12] MEDS: POLYETHYLENE (MIRALAX) 17 GM PACK PO SCH ×2 (13:17→21:40)
[2018-08-12] MEDS: CEFEPIME 1,000 MG in SYRINGE 0 ML IV SCH (13:52)
[2018-08-12 13:58] LABS: Base Excess VBG 5.6 mEq/L; Oxygen Saturation VBG 60.9 %; pH VBG 7.3 (7.36-7.41)
[2018-08-12] MEDS ORDERED: LEVOFLOXACIN/D5W 750 MG/150 ML BAG IV SCH (16:00)
[2018-08-12] MEDS: ZIOPTAN OP SCH (21:34)
[2018-08-13] MEDS: HEPARIN 100 UNIT/ML 5ML FLUSH FLUSH PRN ×2 (05:45→13:23)
[2018-08-13 06:19] LABS: Hematocrit (blood only) 34.4 % (37-47); Hemoglobin 10.7 g/dL (12.0-16.0); Mean Corpuscular Hgb Conc 31.1 g/dL (32-36); Mean Platelet Volume 12.4 fL (7.4-10.4); Platelet Count 117 K/uL (130-400); RDW Coefficient of Variation 15.6 % (11.5-14.5); RDW Standard Deviation 56.1 fL (36.4-46.3); Red Blood Count 3.51 M/uL (4.2-5.4); White Blood Count 7.08 K/uL (4.8-10.8)
[2018-08-13 06:41] LABS: BUN Creatinine Ratio 26.5 (10-20); Calcium 8.1 mg/dl (8.5-10.1); Creatinine Clr Calc Pharmacy 27.8 ml/min; Est GFR (Non-African American) 27.6; Potassium 3.8 mmol/L (3.5-5.1)
[2018-08-13] MEDS: ALBUT/IPRATROP 3MG/0.5MG NEB 3 ML VIAL NEB PRN ×2 (07:20→22:18)
[2018-08-13] MEDS: FOLIC ACID 400 MCG TAB PO SCH ×2 (09:31→21:42)
[2018-08-13] MEDS: APIXABAN 2.5 MG TAB PO SCH ×2 (09:31→21:42)
[2018-08-13] MEDS: VITAMIN B COMPLEX TAB PO SCH (09:31)
[2018-08-13] MEDS: MAGNESIUM OXIDE 400 MG TAB PO SCH ×2 (09:31→21:41)
[2018-08-13] MEDS: CLOPIDOGREL BISULFATE 75 MG TAB PO SCH (09:32)
[2018-08-13] MEDS: ASCORBIC ACID 500 MG TAB PO SCH (09:32)
[2018-08-13] MEDS: MULTIVITAMIN TAB PO SCH (09:32)
[2018-08-13] MEDS: CARVEDILOL 12.5 MG TAB PO SCH ×2 (09:32→21:40)
[2018-08-13] MEDS: DOCUSATE SODIUM/SENNA 50/8.6MG TAB PO SCH ×2 (09:32→21:42)
[2018-08-13] MEDS: FUROSEMIDE 20 MG TAB PO SCH (09:32)
[2018-08-13] MEDS: AMIODARONE 200 MG TAB PO SCH ×2 (09:32→21:41)
[2018-08-13] MEDS: AMLODIPINE BESYLATE 5 MG TAB PO SCH (09:32)
[2018-08-13] MEDS: INSULIN ASPART 100 UNITS/ML 3 ML PEN SC SCH ×4 (09:33→21:44)
[2018-08-13] MEDS: INSULIN GLARGINE SOLOSTAR 100 UNITS/ML 3 ML PEN SC SCH ×3 (09:33→22:12)
[2018-08-13] MEDS: POLYETHYLENE (MIRALAX) 17 GM PACK PO SCH ×2 (09:33→14:09)
[2018-08-13] MEDS: PREGABALIN 100 MG CAP PO SCH ×2 (09:41→21:55)
--- NOTE | 2018-08-13 11:16 | Nephrology Progress Note ---
Date of Service August 13, 2018 Assessment & Plan (1) Acute kidney injury: Mrs. Hagen is a 78-year-old female with stage 3 chronic kidney disease, chronic diastolic dysfunction, coronary artery disease and nephrolithiasis admitted with left-sided ureteral stone. She passed the stone 08/11/18. On admission she was found to have acute kidney injury, creatinine 1.9 with baseline creatinine around 1.5. Over last 2 days renal function worsened and creatinine staying around 2.4-2.5. She has left atrophy kidney. Has low grade proteinuria. Since admission diuretics has been on hold and she has been getting IV hydration. -- Patient is now in recovery phase. She is nonoliguric and creatinine has improved to 1.7. She is nearing her baseline kidney function -- Continue Furosemide 20 mg daily -- KUB x-ray 08/12/18: No obstruction or ileus. Moderate fecal retention. -- No further Nephrology evaluation needed at this time. Will sign off. Please call if further assistance is needed. (2) CHF (congestive heart failure): (3) Ureterolithiasis: (4) Chronic kidney disease with active medical management without dialysis, stage 3 (moderate): (5) HTN (hypertension): (6) Diabetes: Subjective Mrs. Hagen was seen and examined in her hospital room this morning. She reports that her abdominal discomfort has improved. She had one bowel movement this morning. She is tolerating her diet. Mrs. Hagen's only concern is fatigue. Physical Exam 2 Vital Signs (Past 24 Hours): Last Vital Signs Temp 36.3 C L 08/13/18 07:13 Pulse 58 L 08/13/18 07:21 Resp 18 08/13/18 07:21 BP 155/76 H 08/13/18 07:13 Pulse Ox 95 08/13/18 07:21 Constitutional: + obese Respiratory: no respiratory distress Cardiovascular: RRR, no murmur, no edema Gastrointestinal (Abdomen): Inspection/Auscultation: + abdomen distended (no bowel sounds) Percussion/Palpation: abdomen nontender and no guarding Results & Data Laboratory Results Laboratory Tests 08/13/18 08/13/18 05:43 05:43 WBC 7.08 Hgb 10.7 L Hct 34.4 L Plt Count 117 L Sodium 142 Potassium 3.8 Chloride 103 Carbon Dioxide 33 H BUN 46 H Creatinine 1.75 H _ (1) CHF (congestive heart failure) Heart failure type: diastolic Heart failure chronicity: chronic Qualified Code(s): I50.32 - Chronic diastolic (congestive) heart failure (2) HTN (hypertension) Hypertension type: essential hypertension Qualified Code(s): I10 - Essential (primary) hypertension (3) Diabetes Diabetes mellitus type: type 2 Diabetes mellitus manager intermediate insulin use: with manager intermediate use Diabetes mellitus complication status: without complication Diabetes mellitus complication detail: Diabetic retinopathy severity: Proliferative retinopathy type: Diabetes mellitus macular edema: Laterality : Chronic kidney disease stage: Qualified Code(s): E11.9 - Type 2 diabetes mellitus without complications; Z79.4 - intermediate (current) use of insulin
[2018-08-13] MEDS: CEFEPIME 1,000 MG in SYRINGE 0 ML IV SCH (13:23)
--- NOTE | 2018-08-13 15:17 | Hospitalist Progress Note ---
Date of Service August 13, 2018 Assessment & Plan (1) Acute respiratory failure with hypercapnia: - Developed acute lethargy on 08/12; VBG showed pH 7.24, pCO2 83. - Was not able to tolerate BiPAP yesterday, cannot use machine from home per RT. - CO2 remains elevated on morning labs, did not repeat VBG. - Lethargy now improved, on 4L via NC. (2) Healthcare-associated pneumonia: - CXR: no congestive failure; bibasilar opacities concerning for atelectasis vs. PNA - Concern for HAP -- continue Cefepime/Levaquin. - MRSA swab negative -- will hold MRSA coverage. (3) Acute on chronic diastolic heart failure: - Has chronic diastolic CHF; acute fluid overload noted during this admission 2/2 IV fluids. - Monitor daily weights and I/O's. - Resumed Lasix 20 mg PO daily on 08/11; nephro following in setting of ARF. - Continue Coreg as prescribed. (4) Acute chest pain: - Developed chest pain on 08/11; EKG showed no significant change. - Troponin was 0.026, trended down. - Discussed with cardiology due to h/o recent cardiac events, is not concerning for acute ischemia. (5) Constipation: - KUB was negative for obstruction; had BM, now resolved. - Colace/Senna BID with Miralax TID prn. (6) Ureterolithiasis: - Presented with left flank pain and dysuria; CT A/P showed 2.5 cm distal left ureteral calculus with obstructive changes. - Urology consulted, appreciate input. - Passed stone on 08/09, symptoms now resolved. No surgical intervention indicated. (7) UTI (urinary tract infection): - U/a positive, UC +E. coli. - On Cefepime for coverage of PNA/UTI. (8) Acute kidney injury: - Creatinine & BUN trending down, creatinine baseline ~1.4-1.8. - Holding IV fluids due to acute CHF. - Consulted nephro, stable for discharge in regards to renal function. - Monitor BMP qAM. (9) Chronic kidney disease with active medical management without dialysis, stage 3 (moderate): - Avoid nephrotoxic agents, renally dose all meds. (10) Hyperkalemia: - K level 5.2 on 08/11, now resolved. - S/p kayexalate, did not have BM following med. - Low potassium diet. (11) Diabetes: - Most recent A1C was 8.3 in June 2018. - Had AM hypoglycemia -- will decrease home Lantus from 25 to 20 units BID and change SSI coverage. (12) Apical variant hypertrophic cardiomyopathy: - Continue Lasix 20 mg PO daily. - Monitor volume status. (13) CAD (coronary artery disease): - H/o CAD, most recent cardiac event with cardiac cath on 07/06/18 with placement of AWILDA x 2 to RCA. - Continue Coreg 12.5 mg BID. - Resumed Eliquis 2.5 mg BID and Plavix 75 mg daily. - May need to start PCSK9 inhibitor as outpatient; is statin intolerant. - Cardiology consulted, appreciate input. (14) Atrial fibrillation: - In NSR. - Continue Amiodarone 100 mg BID & Eliquis. - Continue Coreg 12.5 mg BID. (15) HTN (hypertension): - Continue Coreg as prescribed. - Lasix 20 mg PO daily. - Started Amlodipine 5 mg PO daily on 08/12 with improvement in uncontrolled BP. (16) JANICE treated with BiPAP: - BiPAP qhs - pt. refuses our BiPAP machine, cannot use one from home. (17) Anxiety: - Continue Buspar 5 mg BID as prescribed. (18) DVT prophylaxis: - Continue Plavix & Eliquis. Dispo: Discharge pending clinical improvement. Supervising Physician Co-Signing Physician Notes Attending Attestation - Chart reviewed in detail, and care plan d/w JEFE Ugarte. I agree w/ the [place] components of her documentation. Patient with improved respiratory status overnight including CO2 on VBG. Remains on IV antibiotics for suspected pneumonia. Labs acceptable today. Vitals acceptable as well. Continue current care plan as outlined by Ms. Ugarte. Alfredo Goldberg MD Subjective Pt. complains of decreased appetite and generalized weakness. She expressed that she "does not know if I can go on". She had a large BM, constipation and abd bloating now resolved. Pt. had hypercapnia yesterday, was placed on BiPAP but was not able to tolerate for long period of time. She has BiPAP machine at home but cannot tolerate hospital machine. She is now weaned down to 4L via NC. CO2 remains elevated on morning lab work, no repeat VBG was obtained. Plan to continue IV abx for treatment of PNA. Pt. will also need repeat eval by PT/OT as she states she feels weak, is not sure if she can go home. Review of Systems All systems reviewed & are unremarkable except as noted in HPI & below Constitutional: + weakness and + anorexia; no fever and no chills Respiratory: no cough and no dyspnea Cardiovascular: no chest pain, no palpitations and no edema Gastrointestinal: no abdominal pain, no nausea and no constipation Genitourinary (Female): no difficulty urinating Musculoskeletal: no joint pain Allergy / Immunological: no rash Physical Exam 2 Vital Signs (Past 24 Hours): Last Vital Signs Temp 36.3 C L 08/13/18 15:09 Pulse 51 L 08/13/18 15:09 Resp 19 08/13/18 15:09 BP 131/60 08/13/18 15:09 Pulse Ox 96 08/13/18 15:09 Physical Exam: General: Resting comfortably in no apparent distress HEENT: NC/AT; PERRLA with EOMI; [place] conjunctiva, MMM. Neck: Supple and nontender Cardiac: RRR Lungs: on 4L via NC; crackles in bilat lower lung [place]. Abdomen: Bowel normoactive x4; non tender to light palpation, abd distention improved. Extremities: Warm. Trace bilat LE edema. Neuro: No focal weakness Skin: No rash Results & Data Laboratory Results 08/13/18 08/13/18 08/13/18 Range/Units 12:09 08:25 08:10 WBC (4.8-10.8) K/uL RBC (4.2-5.4) M/uL Hgb (12.0-16.0) g/dL Hct (37-47) % MCV (80-100) fL MCH (25-34) pg MCHC (32-36) g/dL RDW Std Deviation (36.4-46.3) fL RDW Coeff of Nhi (11.5-14.5) % Plt Count (130-400) K/uL MPV (7.4-10.4) fL Sodium (136-145) mmol/L Potassium (3.5-5.1) mmol/L Chloride (98-107) mmol/L Carbon Dioxide (21-32) mmol/L Anion Gap (3-11) BUN (7-18) mg/dl Creatinine (0.6-1.2) mg/dl Est Cr Clr Drug Dosing ml/min Est GFR ( Amer) Est GFR (Non-Af Amer) BUN/Creatinine Ratio (10-20) Glucose (70-99) mg/dl POC Glucose 156 H 76 64 L* (70-99) Calcium (8.5-10.1) mg/dl Nasal Screen MRSA (PCR) (Negative) 08/13/18 08/13/18 08/12/18 Range/Units 05:43 05:43 20:44 WBC 7.08 (4.8-10.8) K/uL RBC 3.51 L (4.2-5.4) M/uL Hgb 10.7 L (12.0-16.0) g/dL Hct 34.4 L (37-47) % MCV 98.0 (80-100) fL MCH 30.5 (25-34) pg MCHC 31.1 L (32-36) g/dL RDW Std Deviation 56.1 H (36.4-46.3) fL RDW Coeff of Nhi 15.6 H (11.5-14.5) % Plt Count 117 L (130-400) K/uL MPV 12.4 H (7.4-10.4) fL Sodium 142 (136-145) mmol/L Potassium 3.8 (3.5-5.1) mmol/L Chloride 103 (98-107) mmol/L Carbon Dioxide 33 H (21-32) mmol/L Anion Gap 6.0 (3-11) BUN 46 H (7-18) mg/dl Creatinine 1.75 H (0.6-1.2) mg/dl Est Cr Clr Drug Dosing 27.8 ml/min Est GFR ( Amer) 32.0 Est GFR (Non-Af Amer) 27.6 BUN/Creatinine Ratio 26.5 H (10-20) Glucose 59 L (70-99) mg/dl POC Glucose 165 H (70-99) Calcium 8.1 L (8.5-10.1) mg/dl Nasal Screen MRSA (PCR) (Negative) 08/12/18 08/12/18 Range/Units 17:11 13:20 WBC (4.8-10.8) K/uL RBC (4.2-5.4) M/uL Hgb (12.0-16.0) g/dL Hct (37-47) % MCV (80-100) fL MCH (25-34) pg MCHC (32-36) g/dL RDW Std Deviation (36.4-46.3) fL RDW Coeff of Nhi (11.5-14.5) % Plt Count (130-400) K/uL MPV (7.4-10.4) fL Sodium (136-145) mmol/L Potassium (3.5-5.1) mmol/L Chloride (98-107) mmol/L Carbon Dioxide (21-32) mmol/L Anion Gap (3-11) BUN (7-18) mg/dl Creatinine (0.6-1.2) mg/dl Est Cr Clr Drug Dosing ml/min Est GFR ( Amer) Est GFR (Non-Af Amer) BUN/Creatinine Ratio (10-20) Glucose (70-99) mg/dl POC Glucose 138 H (70-99) Calcium (8.5-10.1) mg/dl Nasal Screen MRSA (PCR) Negative (Negative) _ (1) UTI (urinary tract infection) Encounter type: Hematuria presence: with hematuria Indwelling urinary catheter type: Urinary tract infection type: acute cystitis Qualified Code(s) : N30.01 - Acute cystitis with hematuria (2) Diabetes Chronic kidney disease stage: Diabetes mellitus complication detail: Diabetes mellitus complication status: without complication 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 transplanted heart: [place] heart Qualified Code (s): I25.10 - Atherosclerotic heart disease of [place] coronary artery without angina pectoris (4) Atrial fibrillation Atrial fibrillation type: paroxysmal Qualified Code(s): I48.0 - Paroxysmal atrial fibrillation (5) HTN (hypertension) Hypertension type: essential hypertension Qualified Code(s): I10 - Essential (primary) hypertension
[2018-08-13] MEDS ORDERED: POLYETHYLENE (MIRALAX) 17 GM PACK PO PRN (15:24)
[2018-08-13] MEDS: ZIOPTAN OP SCH (21:43)
[2018-08-14] MEDS: HEPARIN 100 UNIT/ML 5ML FLUSH FLUSH PRN (05:44)
[2018-08-14 06:17] LABS: Hematocrit (blood only) 34.7 % (37-47); Hemoglobin 10.6 g/dL (12.0-16.0); Mean Corpuscular Hgb Conc 30.5 g/dL (32-36); Mean Corpuscular Volume 98.3 fL (80-100); Mean Platelet Volume 12.7 fL (7.4-10.4); Nucleated RBC # (auto) 0.03 K/uL (0-0); Nucleated RBC % (auto) 0.5 %; Platelet Count 126 K/uL (130-400); RDW Coefficient of Variation 15.7 % (11.5-14.5); RDW Standard Deviation 55.2 fL (36.4-46.3); Red Blood Count 3.53 M/uL (4.2-5.4); White Blood Count 5.47 K/uL (4.8-10.8)
[2018-08-14 06:49] LABS: BUN Creatinine Ratio 27.1 (10-20); Calcium 8.5 mg/dl (8.5-10.1); Creatinine Clr Calc Pharmacy 30.4 ml/min; Est GFR (African American) 35.7; Est GFR (Non-African American) 30.8; Potassium 4.2 mmol/L (3.5-5.1)
[2018-08-14] MEDS: ALBUT/IPRATROP 3MG/0.5MG NEB 3 ML VIAL NEB PRN ×3 (07:19→23:28)
[2018-08-14] MEDS: FOLIC ACID 400 MCG TAB PO SCH ×2 (07:54→22:13)
[2018-08-14] MEDS: MULTIVITAMIN TAB PO SCH (07:54)
[2018-08-14] MEDS: AMLODIPINE BESYLATE 5 MG TAB PO SCH (07:54)
[2018-08-14] MEDS: APIXABAN 2.5 MG TAB PO SCH ×2 (07:54→22:14)
[2018-08-14] MEDS: DOCUSATE SODIUM/SENNA 50/8.6MG TAB PO SCH ×2 (07:54→22:13)
[2018-08-14] MEDS: CARVEDILOL 12.5 MG TAB PO SCH ×2 (07:54→22:13)
[2018-08-14] MEDS: FUROSEMIDE 20 MG TAB PO SCH (07:56)
[2018-08-14] MEDS: AMIODARONE 200 MG TAB PO SCH ×2 (07:56→22:13)
[2018-08-14] MEDS: VITAMIN B COMPLEX TAB PO SCH (07:56)
[2018-08-14] MEDS: ASCORBIC ACID 500 MG TAB PO SCH (07:57)
[2018-08-14] MEDS: MAGNESIUM OXIDE 400 MG TAB PO SCH ×2 (07:57→22:13)
[2018-08-14] MEDS: CLOPIDOGREL BISULFATE 75 MG TAB PO SCH (07:57)
[2018-08-14] MEDS: PREGABALIN 100 MG CAP PO SCH ×2 (08:01→22:26)
[2018-08-14] MEDS: INSULIN ASPART 100 UNITS/ML 3 ML PEN SC SCH ×4 (08:39→22:04)
[2018-08-14] MEDS: INSULIN GLARGINE SOLOSTAR 100 UNITS/ML 3 ML PEN SC SCH ×2 (08:39→22:04)
[2018-08-14] MEDS: CEFEPIME 1,000 MG in SYRINGE 0 ML IV SCH (12:59)
--- NOTE | 2018-08-14 14:21 | Hospitalist Progress Note ---
Date of Service August 14, 2018 Assessment & Plan (1) Healthcare-associated pneumonia: CXR on 08/08 showed heart failure, but on 08/12, showed bibasilar opacities concerning for atelectasis vs. PNA. - Concern for HAP - started on cefepime & levofloxacin on 08/12 - MRSA swab negative on 08/12 - hold MRSA coverage - Breathing at baseline on 08/14 with minimal cough (2) Acute respiratory failure with hypercapnia: Developed acute lethargy on 08/12; VBG showed pH 7.24, pCO2 83. - Was not able to tolerate BiPAP & cannot use machine from home per RT. - Lethargy improved on 08/13 & 08/14, on 4L via NC. (3) Acute on chronic diastolic heart failure: Has chronic diastolic CHF; acute fluid overload noted during this admission 2/2 IV fluids. - Monitor daily weights and I/O's. - Resumed Lasix 20 mg PO daily on 08/11; nephro following in setting of ARF. - Continue Coreg as prescribed (4) Ureterolithiasis: Presented with left flank pain and dysuria; CT A/P showed 2.5 cm distal left ureteral calculus with obstructive changes. - Urology consulted, appreciate input. - Passed stone on 08/09, symptoms now resolved. No surgical intervention indicated. (5) UTI (urinary tract infection): U/a on 08/08 positive; urine culture grew +E. coli, sensitive to levofloxacin. - On cefepime for coverage of PNA/UTI. (6) Acute kidney injury: Creatinine baseline ~1.4-1.8; up to 2.7 on admission, likely due to renal stone obstruction. - Holding IV fluids due to acute CHF. - By 08/14, nephrology signed off as Cr was back to baseline. - Monitor BMP qAM (7) Chronic kidney disease with active medical management without dialysis, stage 3 (moderate): - Avoid nephrotoxic agents, renally dose all meds. (8) Diabetes: - Most recent A1C was 8.3 in June 2018. - Had AM hypoglycemia -- will decrease home Lantus from 25 to 20 units BID and change SSI coverage. (9) CAD (coronary artery disease): H/o CAD, most recent cardiac event with cardiac cath on 07/06/18 with placement of AWILDA x 2 to RCA. - Continue Coreg 12.5 mg BID. - Resumed Eliquis 2.5 mg BID and Plavix 75 mg daily. - May need to start PCSK9 inhibitor as outpatient; is statin intolerant. - Cardiology consulted, appreciate input. (10) Atrial fibrillation: In NSR. - Continue Amiodarone 100 mg BID & Eliquis. - Continue Coreg 12.5 mg BID. (11) HTN (hypertension): BP 100/70 up to 175/75 in the last 24 hours. - Continue Coreg as prescribed. - Lasix 20 mg PO daily - Started Amlodipine 5 mg PO daily on 08/12; monitor BPs (12) JANICE treated with BiPAP: - BiPAP qhs - pt. refuses our BiPAP machine, cannot use one from home. (13) Anxiety: - Continue Buspar 5 mg BID as prescribed. (14) DVT prophylaxis: Plavix & Eliquis Subjective 78yo F w/ hx of kidney stone who presented with kidney stone, but had complicated course with respiratory failure. Today, she reports feeling weak, and not being sure she can go on. When asked what is making her feel this way, she reports the of her dog and overall health problems. Reports no fevers/chills, chest pain, shortness of breath, abdominal pain, nausea, or vomiting. Physical Exam 2 Vital Signs (Past 24 Hours): Last Vital Signs Temp 36.8 C 08/14/18 07:33 Pulse 54 L 08/14/18 07:33 Resp 16 08/14/18 07:33 BP 135/62 08/14/18 07:33 Pulse Ox 98 08/14/18 07:33 Constitutional: WD/WN, vitals as above + ill appearing and + obese; no acute distress Eyes: EOM intact bilaterally; no conjunctival abnormality ENMT: external ear and nose normal, oropharynx normal Neck: trachea midline, no thyromegaly normal visual inspection Respiratory: normal respiratory effort, lungs clear to auscultation no respiratory distress Cardiovascular: RRR, no murmur, no edema Gastrointestinal (Abdomen): Inspection/Auscultation: abdomen normal to inspection; abdomen not distended Musculoskeletal: no cyanosis or clubbing, extremities motor strength 5/5 Skin: no rashes, warm and dry Neurologic: moves all extremities and awake Psychiatric: Orientation: alert, oriented to person and cooperative _ (1) UTI (urinary tract infection) Encounter type: Hematuria presence: with hematuria Indwelling urinary catheter type: Urinary tract infection type: acute cystitis Qualified Code(s) : N30.01 - Acute cystitis with hematuria (2) Diabetes Diabetes mellitus type: type 2 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 transplanted heart: [place] heart Associated angina: without angina Qualified Code(s): I25.10 - Atherosclerotic heart disease of [place] coronary artery without angina pectoris (4) Atrial fibrillation Atrial fibrillation type: paroxysmal Qualified Code(s): I48.0 - Paroxysmal atrial fibrillation (5) HTN (hypertension) Hypertension type: essential hypertension Qualified Code(s): I10 - Essential (primary) hypertension
[2018-08-14] MEDS ORDERED: levoFLOXacin 750 MG TAB PO SCH (16:00)
[2018-08-14] MEDS: ACETAMINOPHEN 325 MG TAB PO PRN ×2 (17:06→22:13)
[2018-08-14] MEDS: ZIOPTAN OP SCH (23:28)
[2018-08-15] MEDS: HEPARIN 100 UNIT/ML 5ML FLUSH FLUSH PRN ×2 (06:11→12:58)
[2018-08-15 07:03] LABS: Calcium 8.3 mg/dl (8.5-10.1); Est GFR (African American) 32.2; Est GFR (Non-African American) 27.8; Potassium 4.3 mmol/L (3.5-5.1)
[2018-08-15] MEDS: ALBUT/IPRATROP 3MG/0.5MG NEB 3 ML VIAL NEB PRN (07:18)
[2018-08-15] MEDS: CARVEDILOL 12.5 MG TAB PO SCH (07:40)
[2018-08-15] MEDS: AMIODARONE 200 MG TAB PO SCH (07:41)
[2018-08-15] MEDS: FUROSEMIDE 20 MG TAB PO SCH (07:41)
[2018-08-15] MEDS: AMLODIPINE BESYLATE 5 MG TAB PO SCH (07:42)
[2018-08-15] MEDS: CLOPIDOGREL BISULFATE 75 MG TAB PO SCH (08:33)
[2018-08-15] MEDS: VITAMIN B COMPLEX TAB PO SCH (08:33)
[2018-08-15] MEDS: FOLIC ACID 400 MCG TAB PO SCH (08:33)
[2018-08-15] MEDS: DOCUSATE SODIUM/SENNA 50/8.6MG TAB PO SCH (08:34)
[2018-08-15] MEDS: APIXABAN 2.5 MG TAB PO SCH (08:34)
[2018-08-15] MEDS: MAGNESIUM OXIDE 400 MG TAB PO SCH (08:34)
[2018-08-15] MEDS: ASCORBIC ACID 500 MG TAB PO SCH (08:34)
[2018-08-15] MEDS: MULTIVITAMIN TAB PO SCH (08:34)
[2018-08-15] MEDS: PREGABALIN 100 MG CAP PO SCH (08:38)
[2018-08-15] MEDS: INSULIN GLARGINE SOLOSTAR 100 UNITS/ML 3 ML PEN SC SCH (09:18)
[2018-08-15] MEDS: INSULIN ASPART 100 UNITS/ML 3 ML PEN SC SCH ×2 (09:18→12:49)
[2018-08-15] MEDS: CEFEPIME 1,000 MG in SYRINGE 0 ML IV SCH (12:59)
--- NOTE | 2018-08-15 18:15 | Discharge Summary ---
Date of Service August 15, 2018 Admission HPI Per Admitting Provider Mrs. Hagen is a pleasant 78yo C female with history of CAD s/p HI x 4, recent cardiac catheterization on 07/06/18 with placement of 2 AWILDA to the RCA. She is on Plavix and Eliquis. Also with HTN, DM, CKD III, CHF and AF. Patient was seen by her PCP yesterday with complaints consistent with a UTI. She had a urine dip performed at the office and was started on Bactrim for uncomplicated UTI, however, patient has an allergy listed to Sulfa drugs reaction is GI upset. Patient took a dose of Bactrim last evening with dinner and felt fine. She took her second dose with breakfast then started to experience severe nausea as well as left flank pain with radiation into the groin. She denies fevers, chills, CP, palpitations. Denies SOB, wheeze, rash, swelling of the face/lips/tongue/throat. She does report gaining 4 pounds in the last week, otherwise no complaints. Upon arrival to the ER she was afebrile, mildly hypertensive. CT of the abdomen was performed which revealed a 2.5mm partially obstructing stone in the distal left ureter. UA positive. ER Course: Ceftriaxone 1gm, Magnesium sulfate 1gm, NSS x 1 liter, Phenergan x 12.5mg Principal Diagnosis Kidney stone, with hospital course complicated by respiratory distress Discharge Exam Constitutional WD/WN, vitals as above + ill appearing and + obese; no acute distress Eyes EOM intact bilaterally; no conjunctival abnormality ENMT external ear and nose normal, oropharynx normal Neck trachea midline, no thyromegaly normal visual inspection Respiratory normal respiratory effort, lungs clear to auscultation no respiratory distress Cardiovascular RRR, no murmur, no edema Gastrointestinal (Abdomen) Inspection/Auscultation: abdomen normal to inspection; abdomen not distended Musculoskeletal no cyanosis or clubbing, extremities motor strength 5/5 Skin no rashes, warm and dry Neurologic moves all extremities and awake Psychiatric Orientation: alert, oriented to person and cooperative Discharge Data Allergies Allergy/AdvReac Type Severity Reaction Status Date / Time eptifibatide Allergy Severe ANAPHYLAXIS Verified 08/08/18 18:17 hornet venom Allergy Severe WASP VENOM Verified 08/08/18 18:17 PROTEIN-ANAPHYLAXIS mivacurium Allergy Intermediate palpatation Verified 08/08/18 18:17 s atorvastatin Allergy Unknown MUSCLE PAIN Verified 08/08/18 18:17 ezetimibe Allergy Unknown MUSCLE PAIN Verified 08/08/18 18:17 simvastatin Allergy Unknown MUSCLE PAIN Verified 08/08/18 18:17 warfarin AdvReac Intermediate EXTREME Verified 08/08/18 18:17 BLEEDING TIMES codeine AdvReac Mild VOMITING Verified 08/08/18 18:17 gemfibrozil AdvReac Mild NAUSEA Verified 08/08/18 18:17 meperidine AdvReac Mild VOMITING Verified 08/08/18 18:17 ondansetron AdvReac Mild vomiting Verified 08/08/18 18:17 ranitidine [From Zantac] AdvReac Mild dyspepsia Verified 08/08/18 18:17 cortisone AdvReac Unknown INCREASES Verified 08/08/18 18:17 SUGAR AND VOMITING? hydralazine AdvReac Unknown VOMITING Verified 08/08/18 18:17 ibuprofen AdvReac Unknown VOMITING Verified 08/08/18 18:17 AND DIARRHEA iodine AdvReac Unknown SHELLFISH Verified 08/08/18 18:17 - VOMITING shellfish derived AdvReac Unknown VOMITING Verified 08/08/18 18:17 Sulfa (Sulfonamide AdvReac Unknown VOMITING Verified 08/08/18 18:17 Antibiotics) Consultations 08/08/18 19:22 ED Decision to Admit Stat 08/08/18 20:26 Consult Urology Routine 08/09/18 14:56 Consult Cardiology Routine 08/10/18 09:47 Consult Nephrology Routine 08/12/18 13:27 Consult Case Management - Discharge Planning Routine Procedures Performed Operation Date: 08/09/18 17:30 <No data on this case meets the specified criteria> Operation Date: 08/10/18 08:15 <No data on this case meets the specified criteria> Ordered Studies 08/08/18 17:13 CT abd pelvis wo con Stat Hospital Course (1) Healthcare-associated pneumonia: CXR on 08/08 showed heart failure, but on 08/12, showed bibasilar opacities concerning for atelectasis vs. PNA. - Concern for HAP - started on cefepime & levofloxacin on 08/12 - MRSA swab negative on 08/12 - held MRSA coverage - Breathing at baseline on 08/14 with minimal cough - Last dose of levofloxacin would be 08/16 for coverage until 01/24 given her kidney function (2) Acute respiratory failure with hypercapnia: Developed acute lethargy on 08/12; VBG showed pH 7.24, pCO2 83. - Was not able to tolerate BiPAP. - Lethargy improved on 08/13 & 08/14, on 4L via NC. - Was able to bring in home BiPap and use it on 08/15. This improved her mental status during the day, and she was much more alert and awake. (3) Acute on chronic diastolic heart failure: Has chronic diastolic CHF; acute fluid overload noted during this admission 2/2 IV fluids. - Monitor daily weights and I/O's. - Resumed Lasix 20 mg PO daily on 08/11; nephro following in setting of ARF. - Continue Coreg as prescribed (4) Ureterolithiasis: Presented with left flank pain and dysuria; CT A/P showed 2.5 cm distal left ureteral calculus with obstructive changes. - Urology consulted, appreciate input. - Passed stone on 08/09, symptoms now resolved. No surgical intervention indicated. - Outpatient follow up. (5) UTI (urinary tract infection): U/a on 08/08 positive; urine culture grew +E. coli, sensitive to levofloxacin. - On cefepime for coverage of PNA/UTI. - Covered with her PNA antibiotics. (6) Acute kidney injury: Creatinine baseline ~1.4-1.8; up to 2.7 on admission, likely due to renal stone obstruction. - Holding IV fluids due to acute CHF. - By 08/14, nephrology signed off as Cr was back to baseline. (7) Chronic kidney disease with active medical management without dialysis, stage 3 (moderate): - Avoid nephrotoxic agents, renally dose all meds. (8) Diabetes: - Most recent A1C was 8.3 in June 2018. - Had AM hypoglycemia one day. - On discharge, Lantus was down to 20 units BID (9) CAD (coronary artery disease): H/o CAD, most recent cardiac event with cardiac cath on 07/06/18 with placement of AWILDA x 2 to RCA. - Continued Coreg 12.5 mg BID. - Resumed Eliquis 2.5 mg BID and Plavix 75 mg daily. - May need to start PCSK9 inhibitor as outpatient; is statin intolerant. (10) Atrial fibrillation: In NSR. - Continue Amiodarone 100 mg BID & Eliquis. - Continue Coreg 12.5 mg BID. (11) HTN (hypertension): BP 100/70 up to 175/75 in the last 24 hours. - Continue Coreg as prescribed. - Lasix 20 mg PO daily - Started Amlodipine 5 mg PO daily on 08/12; BPs were somewhat better (120/60-170 /70) with it. - Discharged on amlodipine (12) JANICE treated with BiPAP: May have contributed to her hypercapnea. Had home machine by discharge, and respiratory status was stable. (13) Anxiety: - Continue Buspar 5 mg BID as prescribed. (14) DVT prophylaxis: Plavix & Eliquis Total Time Total Time Spent Total Time Spent (In Minutes): 45 Total Time Includes: Examination of the Patient, Discharge Planning and Medication Reconciliation Discharge Plan Discharge Items Patient Disposition: Transfer Inpatient Rehab Fac Reason For Visit: UTI,RENAL STONE Discharge Diagnosis: Initially for kidney stone, then for respiratory distress Discharge Goals: Decrease discomfort and Improve function Activity: Resume your previous activity Exercise/Sports: Gradually increase as tolerated Non-emergency contact: Primary Care Provider Call non-emergency contact if: your symptoms worsen and your pain is not controlled Follow-up/Referrals: Gregory Au MD [Physician] - 09/06/18 4:40 pm (Please, follow up at [facility] Urology Office with Dr. Au on TuesdaySeptember 06 at 4:40 pm. *This office is located at [address] [place] [address] in [place]. If you need to change this appointment, call the office at [phone].) Gopi Iraheta MD [Physician] - 08/17/18 10:30 am (Please, follow up at [facility] Cardiology Office [facility] Dr. Enrico Iraheta on August 17 at 10:30 am. *If you need to change this appointment, call the office at [phone]. ) Lizet Jeter DO [Primary Care Provider] - (Please see your PCP in 1-2 weeks.) Diet: Heart Healthy Addtl Provider Instructions: Ms. Hagen was admitted for a kidney stone on 08/08. She received some IV fluids in the ED, and possibly this caused some respiratory distress. She passed the kidney stone without issue while she was hospitalized, but developed respiratory issues with hypercapnea and confusion which required several days of antibiotics, diuresis, and BiPap to improve. While my concern for pneumonia is lower, she has improved with these therapies, so would complete 7-day treatment with levofloxacin. Despite the multiple QTc- prolonging medications, her QTc was only 326 on 08/19/2018, so there was low concern for QT prolongation. Given the kidney function, she only needs one more dose on 08/16 to finish out her antibiotic course. She should continue her oral medications and definitely wear her BiPap at night to prevent hypercapnea. Her baseline Cr is ~1.5. Possibly due to Bactrim & the kidney stone, her Cr was 1.9 on admission and went up to 2.7. It was down to 1.7 on discharge, and she should get a follow up check in 1 week to be sure it is stable. Her blood pressure was significantly elevated for much of the stay, and she was started on amlodipine. On discharge, BP was 125/60, but was still up as high as 170/70 at times. Prescriptions: New amlodipine [Norvasc] 5 mg Tablet 5 mg PO QAM Qty: 30 RF: 0 levofloxacin 750 mg Tablet 750 mg PO Q2D@1100 Qty: 3 RF: 0 Continue multivitamin Tablet 1 tab PO DAILY RF: 0 buspirone 5 mg tablet 5 mg PO BID RF: 0 amiodarone [Pacerone] 200 mg tablet 100 mg PO BID RF: 0 folic acid 400 mcg Tablet 0.4 mg PO BID RF: 0 nitroglycerin [Nitrostat] 0.4 mg Tablet, Sublingual 0.4 mg Sublingual UD PRN (Reason: Chest Pain) RF: 0 vitamin B complex Tablet 1 tab PO DAILY RF: 0 pregabalin [Lyrica] 200 mg capsule 200 mg PO BID RF: 0 ipratropium-albuterol [Combivent Respimat] 20-100 mcg/actuation Mist 1 puff INHALATION Q6H PRN (Reason: Shortness Of Breath Or Wheezing) RF: 0 furosemide [Lasix] 40 mg tablet 40 mg PO Q OTHER DAY RF: 0 ascorbic acid (vitamin C) [Vitamin C] 1,000 mg Tablet 1 g PO DAILY RF: 0 magnesium oxide [MagOx] 400 mg (241.3 mg magnesium) tablet 400 mg PO BID RF: 0 insulin aspart U-100 [Novolog U-100 Insulin aspart] 100 unit/mL Solution 18 unit SUBCUT LD RF: 0 insulin aspart U-100 [Novolog U-100 Insulin aspart] 100 unit/mL Solution 26 unit SUBCUT QPM RF: 0 insulin aspart U-100 [Novolog U-100 Insulin aspart] 100 unit/mL Solution 11 unit SUBCUT QAM RF: 0 ergocalciferol (vitamin D2) [Vitamin D2] 50,000 unit Capsule 50,000 unit PO MONTHLY RF: 0 tafluprost (PF) [Zioptan (PF)] 0.0015 % dropperette 1 drp OPB DAILY RF: 0 carvedilol 12.5 mg tablet 12.5 mg PO BID 30 Days Qty: 60 RF: 3 apixaban [Eliquis] 2.5 mg Tablet 2.5 mg PO BID RF: 0 clopidogrel 75 mg Tablet 75 mg PO QAM Qty: 30 RF: 0 Changed insulin glargine [Lantus Solostar U-100 Insulin] 100 unit/mL (3 mL) insulin pen 20 unit subcut BID Qty: 0 RF: 0 Discontinued sulfamethoxazole-trimethoprim 800-160 mg tablet 1 tab PO BID RF: 0 cephalexin 500 mg capsule 500 mg PO Q12 RF: 0 Stand-Alone Forms: [facility]/Other Patient Handouts: Levofloxacin Oral tablet, Amlodipine, Kidney Stones Discharge Orders: Discharge Order (Routine); Ordered 08/15/18 Ordered By: Raymundo Lucio Skilled Items Patient informed of condition?: Yes DNR: Yes Discharge Level of Care: Acute rehab Communicable Disease: No Discharge Prognosis: Stable Admission Data Admit Date/Time: 08/08/18 19:42 Attending Provider: Raymundo Lucio Admit Provider: Mariely Hinojosa Primary Care Provider: Lizet Jeter Other Providers: Mariely Hinojosa ; Gregory Au ; Vito Taylor ; Cesar Lucio I. ; Gopi Figueroa ; Allie Schafer ; Zack Mir II ; Amy Groves ; Gregory Watson Service: Surgical Services Other Interventions: Discharge Summary Assessment (RN) Last Done: 08/15/18 15:41 DC Date/Time DO NOT enter until pt leaves facility: 08/15/18 17:50
== END 2018-08-15 17:50 | DRG 871 ==
LOC: ED 16:25 → 3W 19:42 → SUATTDRO 19:42 → 3W 20:08

== ENCOUNTER 2018-09-14 16:57 | Observation (INO) ==
[2018-09-14 17:28] LABS: Basophils # (auto) 0.02 K/uL (0-0.2); Basophils % (auto) 0.4 %; Eosinophils # (auto) 0.09 K/uL (0-0.5); Eosinophils % (auto) 1.7 %; Hematocrit (blood only) 40.9 % (37-47); Hemoglobin 12.7 g/dL (12.0-16.0); Immature Granulocytes # (auto) 0.01 K/uL (0.00-0.02); Immature Granulocytes % (auto) 0.2 %; Lymphocytes # (auto) 1.09 K/uL (1.2-3.4); Mean Corpuscular Hgb Conc 31.1 g/dL (32-36); Mean Corpuscular Volume 97.1 fL (80-100); Mean Platelet Volume 12.6 fL (7.4-10.4); Monocytes # (auto) 0.34 K/uL (0.11-0.59); Monocytes % (auto) 6.6 %; Neutrophils # (auto) 3.63 K/uL (1.4-6.5); Neutrophils % (auto) 70.1 %; Platelet Count 145 K/uL (130-400); RDW Coefficient of Variation 16.1 % (11.5-14.5); RDW Standard Deviation 56.8 fL (36.4-46.3); Red Blood Count 4.21 M/uL (4.2-5.4); White Blood Count 5.18 K/uL (4.8-10.8)
[2018-09-14 17:46] LABS: Partial Thromboplastin Ratio 0.9; Partial Thromboplastin Time 25.5 Seconds (21.0-31.0); Prothrombin Time 10.5 Seconds (9.0-12.0)
[2018-09-14 17:53] LABS: Alanine Aminotransferase 29 U/L (12-78); Albumin Level 3.3 gm/dl (3.4-5.0); Aspartate Aminotransferase 19 U/L (15-37); BUN Creatinine Ratio 21.6 (10-20); Blood Urea Nitrogen 40 mg/dl (7-18); Calcium 8.4 mg/dl (8.5-10.1); Carbon Dioxide 30 mmol/L (21-32); Chloride 105 mmol/L (98-107); Est GFR (African American) 29.5; Est GFR (Non-African American) 25.5; Glucose 145 mg/dl (70-99); Potassium 4.3 mmol/L (3.5-5.1); Sodium 143 mmol/L (136-145)
[2018-09-14 17:57] LABS: Albumin Globulin Ratio 0.9 (0.9-2); Alkaline Phosphatase 61 U/L (45-117); Bilirubin,Total 0.4 mg/dl (0.2-1); Globulin 3.7 gm/dl (2.5-4.0); Troponin I 0.018 ng/ml (0-0.045)
[2018-09-14] MEDS ORDERED: SODIUM CHLORIDE 0.9% 1000ML 500 ML IV ONE (19:16)
--- NOTE | 2018-09-14 19:27 | Emergency Department Note ---
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 The patient reports that she was referred to the ER by her PCP after having a blood pressure of 60/44. The patient states that she has been experiencing chest pain as well as nausea but denies any vomiting or urinary symptoms. She notes that she is prescribed Eliquis as well as Plavix. Home Medications Home Medications Medication Instructions Recorded Confirmed Type amiodarone [Pacerone] 100 mg PO BID 06/20/18 09/14/18 History ascorbic acid (vitamin C) [Vitamin 1 g PO DAILY 06/20/18 09/14/18 History C] buspirone 5 mg PO BID 06/20/18 09/14/18 History ergocalciferol (vitamin D2) 50,000 unit PO MONTHLY 06/20/18 09/14/18 History [Vitamin D2] folic acid 800 mcg PO DAILY 06/20/18 09/14/18 History furosemide [Lasix] 40 mg PO Q OTHER DAY 06/20/18 09/14/18 History insulin aspart U-100 [Novolog 11 unit SUBCUT QAM 06/20/18 09/14/18 History U-100 Insulin aspart] insulin aspart U-100 [Novolog 18 unit SUBCUT LD 06/20/18 09/14/18 History U-100 Insulin aspart] insulin aspart U-100 [Novolog 26 unit SUBCUT QPM 06/20/18 09/14/18 History U-100 Insulin aspart] ipratropium-albuterol [Combivent 1 puff INHALATION Q6H PRN 06/20/18 09/14/18 History Respimat] magnesium oxide [MagOx] 400 mg PO BID 06/20/18 09/14/18 History multivitamin 1 tab PO DAILY 06/20/18 09/14/18 History pregabalin [Lyrica] 200 mg PO BID 06/20/18 09/14/18 History tafluprost (PF) [Zioptan (PF)] 1 drp OPB DAILY 06/20/18 09/14/18 History vitamin B complex 1 tab PO DAILY 06/20/18 09/14/18 History carvedilol 12.5 mg PO BID 30 Days #60 tab 06/22/18 09/14/18 Rx apixaban [Eliquis] 2.5 mg PO BID 07/09/18 09/14/18 History clopidogrel 75 mg PO QAM #30 tab 07/09/18 09/14/18 Rx insulin glargine [Lantus Solostar 20 unit SUBCUT BID #0 ml 08/15/18 09/14/18 Rx U-100 Insulin] amoxicillin 2,000 mg PO UD 09/14/18 09/14/18 History Allergies Allergy/AdvReac Type Severity Reaction Status Date / Time eptifibatide Allergy Severe ANAPHYLAXIS Verified 08/08/18 18:17 hornet venom Allergy Severe WASP VENOM Verified 08/08/18 18:17 PROTEIN-ANAPHYLAXIS levofloxacin [From Levaquin] Allergy Severe Hives Verified 09/14/18 19:43 mivacurium Allergy Intermediate palpatation Verified 08/08/18 18:17 s atorvastatin Allergy Unknown MUSCLE PAIN Verified 08/08/18 18:17 ezetimibe Allergy Unknown MUSCLE PAIN Verified 08/08/18 18:17 simvastatin Allergy Unknown MUSCLE PAIN Verified 08/08/18 18:17 amlodipine AdvReac Severe Nausea Verified 09/14/18 19:43 warfarin AdvReac Intermediate EXTREME Verified 08/08/18 18:17 BLEEDING TIMES codeine AdvReac Mild VOMITING Verified 08/08/18 18:17 gemfibrozil AdvReac Mild NAUSEA Verified 08/08/18 18:17 meperidine AdvReac Mild VOMITING Verified 08/08/18 18:17 ondansetron AdvReac Mild vomiting Verified 08/08/18 18:17 ranitidine [From Zantac] AdvReac Mild dyspepsia Verified 08/08/18 18:17 cortisone AdvReac Unknown INCREASES Verified 08/08/18 18:17 SUGAR AND VOMITING? hydralazine AdvReac Unknown VOMITING Verified 08/08/18 18:17 ibuprofen AdvReac Unknown VOMITING Verified 08/08/18 18:17 AND DIARRHEA iodine AdvReac Unknown SHELLFISH Verified 08/08/18 18:17 - VOMITING shellfish derived AdvReac Unknown VOMITING Verified 08/08/18 18:17 Sulfa (Sulfonamide AdvReac Unknown VOMITING Verified 08/08/18 18:17 Antibiotics) Past Med/Surg History Medical History JANICE treated with BiPAP Atrial fibrillation CAD (coronary artery disease) Myocardial infarction Peripheral neuropathy (Chronic) Diabetes (Chronic) HTN (hypertension) (Chronic) CKD (chronic kidney disease) stage 3, GFR 30-59 ml/min Diffuse large B-cell lymphoma of extranodal site (~08/2012) Respiratory failure Chronic-on 2-3L O2 at home Surgical History S/P cardiac catheterization S/P hysterectomy S/P tonsillectomy Family History Other Cancer Diabetes Gallbladder disease Heart disease Hypertension Kidney stones Social History marital status: Current Living Situation: Spouse Other Information That Helps Us Care for You: No Feels Safe at Home: Yes Safety Concerns: Feels Safe At This Time Smoking Status: Never smoker Second Hand Exposure: No Hx Alcohol Use: No Hx Substance Use: No Beliefs That Will Affect Care: None Preferred Language: Setswana Review of Systems See HPI for pertinent positives & negatives. and A total of 10 systems reviewed and were otherwise negative Physical Exam Vital Signs Vital Signs - 24 hr 09/14/18 17:00 09/14/18 20:26 09/14/18 20:27 Temperature 36.7 C Temperature Source Oral Sepsis Recent Fever Within 48 Hours No Sepsis New/Unexplained Change in Mental Status No Sepsis Action Taken by Nursing No Action Required Pulse Rate 104 H Pulse Rate [Left Finger] 95 H Pulse Rate from SpO2 Sensor Respiratory Rate 24 24 Respiratory Effort / Characteristics Non-Labored Respiratory Depth Normal Respiratory Pattern Regular Blood Pressure 117/70 Blood Pressure [Left Arm] 186/92 H Blood Pressure [Right Arm] Blood Pressure Mean 85 Blood Pressure Mean [Left Arm] 123 Blood Pressure Mean [Right Arm] Blood Pressure Position [Left Arm] Blood Pressure Position [Right Arm] Pulse Oximetry 92 98 98 Oxygen Delivery Method Nasal Cannula Nasal Cannula Nasal Cannula Oxygen Flow Rate 2.5 2 2 09/14/18 21:02 09/14/18 21:37 09/14/18 22:06 Temperature Temperature Source Sepsis Recent Fever Within 48 Hours Sepsis New/Unexplained Change in Mental Status Sepsis Action Taken by Nursing Pulse Rate Pulse Rate [Left Finger] 86 91 H 90 Pulse Rate from SpO2 Sensor Respiratory Rate 21 22 23 Respiratory Effort / Characteristics Non-Labored Respiratory Depth Normal Respiratory Pattern Blood Pressure Blood Pressure [Left Arm] 180/87 H 178/89 H 161/84 H Blood Pressure [Right Arm] Blood Pressure Mean Blood Pressure Mean [Left Arm] 118 118 109 Blood Pressure Mean [Right Arm] Blood Pressure Position [Left Arm] Lying Blood Pressure Position [Right Arm] Pulse Oximetry 98 99 97 Oxygen Delivery Method Nasal Cannula Nasal Cannula Nasal Cannula Oxygen Flow Rate 2 2 2 09/14/18 23:00 09/14/18 23:30 09/15/18 00:10 Temperature Temperature Source Sepsis Recent Fever Within 48 Hours Sepsis New/Unexplained Change in Mental Status Sepsis Action Taken by Nursing Pulse Rate 84 90 84 Pulse Rate [Left Finger] Pulse Rate from SpO2 Sensor 82 94 H Respiratory Rate 25 H 21 21 Respiratory Effort / Characteristics Respiratory Depth Respiratory Pattern Blood Pressure 141/82 H 133/87 137/75 Blood Pressure [Left Arm] Blood Pressure [Right Arm] Blood Pressure Mean 101 102 Blood Pressure Mean [Left Arm] Blood Pressure Mean [Right Arm] Blood Pressure Position [Left Arm] Blood Pressure Position [Right Arm] Pulse Oximetry 97 97 96 Oxygen Delivery Method Nasal Cannula Nasal Cannula Nasal Cannula Oxygen Flow Rate 2 2 2 09/15/18 00:30 09/15/18 00:32 09/15/18 03:20 Temperature 36.3 C L 36.5 C Temperature Source Oral Oral Sepsis Recent Fever Within 48 Hours Sepsis New/Unexplained Change in Mental Status Sepsis Action Taken by Nursing Pulse Rate 101 H Pulse Rate [Left Finger] 104 H 90 Pulse Rate from SpO2 Sensor Respiratory Rate 18 18 Respiratory Effort / Characteristics Non-Labored Spontaneous Respiratory Depth Normal Respiratory Pattern Regular Blood Pressure Blood Pressure [Left Arm] 132/62 130/72 Blood Pressure [Right Arm] Blood Pressure Mean Blood Pressure Mean [Left Arm] 85 91 Blood Pressure Mean [Right Arm] Blood Pressure Position [Left Arm] Lying Blood Pressure Position [Right Arm] Pulse Oximetry 94 96 Oxygen Delivery Method Nasal Cannula Nasal Cannula Nasal Cannula Oxygen Flow Rate 2 2 2 09/15/18 07:52 09/15/18 08:00 09/15/18 11:56 Temperature 36.7 C 36.3 C L Temperature Source Oral Oral Sepsis Recent Fever Within 48 Hours Sepsis New/Unexplained Change in Mental Status Sepsis Action Taken by Nursing Pulse Rate Pulse Rate [Left Finger] 92 H 92 H Pulse Rate from SpO2 Sensor Respiratory Rate 19 18 Respiratory Effort / Characteristics Non-Labored Respiratory Depth Normal Respiratory Pattern Regular Blood Pressure Blood Pressure [Left Arm] 121/71 Blood Pressure [Right Arm] 136/77 Blood Pressure Mean Blood Pressure Mean [Left Arm] 87 Blood Pressure Mean [Right Arm] 96 Blood Pressure Position [Left Arm] Sitting Blood Pressure Position [Right Arm] Sitting Pulse Oximetry 97 94 Oxygen Delivery Method Room Air Nasal Cannula Room Air Oxygen Flow Rate 2 09/15/18 13:38 Temperature 36.3 C L Temperature Source Sepsis Recent Fever Within 48 Hours Sepsis New/Unexplained Change in Mental Status Sepsis Action Taken by Nursing Pulse Rate Pulse Rate [Left Finger] 92 H Pulse Rate from SpO2 Sensor Respiratory Rate 18 Respiratory Effort / Characteristics Respiratory Depth Respiratory Pattern Blood Pressure Blood Pressure [Left Arm] 121/71 Blood Pressure [Right Arm] 136/77 Blood Pressure Mean Blood Pressure Mean [Left Arm] Blood Pressure Mean [Right Arm] Blood Pressure Position [Left Arm] Blood Pressure Position [Right Arm] Pulse Oximetry 94 Oxygen Delivery Method Oxygen Flow Rate GENERAL: Patient is awake alert in no acute distress patient is resting comfortably and showing no signs of anxiety EYES: The conjunctivae are clear. The pupils are round and reactive. EARS, NOSE, MOUTH AND THROAT: The nose is without any evidence of any deformity. Mucous membranes are moist tongue is midline NECK: The neck is nontender and supple. RESPIRATORY: Diminished breath sounds are noted throughout. There is no tachypnea or conversational dyspnea noted. CARDIOVASCULAR: Irregular rhythm was noted to auscultation. There is no definite murmur noted. GASTROINTESTINAL: The abdomen is soft. Bowel sounds are present in all quadrants. Abdomen is nontender MUSCULOSKELETAL/EXTREMITIES: There is no evidence of gross deformity full range of motion is noted in the hips and shoulders SKIN: There is no obvious evidence of any rash. Pedal edema was noted bilaterally. NEUROLOGIC: Patient is awake alert and oriented x3. Course 191: Past medical records reviewed. The patient was evaluated in room A4B, and a complete history and physical examination were performed. 2118: I reviewed the patient's case with Dr. Del Rio - [facility] Hospitalist. He will evaluate the patient for further management. Administered Medications Discontinued Medications Amiodarone HCl (Cordarone) 100 mg PO BID RAFIA Stop: 10/15/18 00:05 Last Admin: 09/15/18 08:24 Dose: 100 mg Admin: 09/15/18 00:59 Dose: 100 mg Apixaban (Eliquis) 2.5 mg PO BID RAFIA Stop: 10/15/18 00:05 Last Admin: 09/15/18 08:25 Dose: 2.5 mg Admin: 09/15/18 01:00 Dose: 2.5 mg Ascorbic Acid (Vitamin C) 1,000 mg PO DAILY RAFIA Stop: 10/15/18 08:59 Last Admin: 09/15/18 08:25 Dose: 1,000 mg Buspirone HCl (Buspar) 5 mg PO BID RAFIA Stop: 10/15/18 00:05 Last Admin: 09/15/18 08:24 Dose: 5 mg Admin: 09/15/18 01:00 Dose: 5 mg Carvedilol (Coreg) 12.5 mg PO BIDM RAFIA Stop: 10/15/18 00:05 Last Admin: 09/15/18 08:24 Dose: 12.5 mg Admin: 09/15/18 01:00 Dose: 12.5 mg Clopidogrel Bisulfate (Plavix) 75 mg PO QAM RAFIA Stop: 10/15/18 08:59 Last Admin: 09/15/18 08:25 Dose: 75 mg Folic Acid (Folvite) 800 mcg PO DAILY RAFIA Stop: 10/15/18 08:59 Last Admin: 09/15/18 08:24 Dose: 800 mcg Heparin Sodium (Porcine) (Heparin Sod 100 Unit/Ml Flush) Confirm Administered Dose 5 ml .ROUTE .STK-MED ONE Stop: 09/15/18 06:30 Last Admin: 09/15/18 06:34 Dose: 5 ml Sodium Chloride (Nss 1000ml) 500 mls @ 999 mls/hr IV .Q31M ONE Stop: 09/14/18 19:46 Last Infusion: 09/14/18 21:36 Dose: 0 mls/hr Admin: 09/14/18 20:59 Dose: 999 mls/hr Insulin Aspart (Novolog Flexpen) 0 units SC ACHS RAFIA Stop: 10/15/18 07:29 Last Admin: 09/15/18 12:17 Dose: 2 units Admin: 09/15/18 08:25 Dose: 5 units Insulin Glargine (Lantus Solostar Pen) 14 units SQ BID RAFIA Stop: 10/15/18 00:05 Last Admin: 09/15/18 08:26 Dose: 14 units Admin: 09/15/18 00:58 Dose: 14 units Magnesium Oxide (Mag-Ox) 400 mg PO BID RAFIA Stop: 10/15/18 00:05 Last Admin: 09/15/18 08:24 Dose: 400 mg Admin: 09/15/18 00:59 Dose: 400 mg Miscellaneous (Order Awaiting Action) 1 ea N/A QS RAFIA Stop: 10/15/18 07:59 Last Admin: 09/15/18 07:30 Dose: Not Given Miscellaneous (Patient's Height And/Or Weight Needed) 1 ea N/A Q2H RAFIA Stop: 10/15/18 00:44 Last Admin: 09/15/18 07:30 Dose: Not Given Admin: 09/15/18 07:13 Dose: Not Given Admin: 09/15/18 05:14 Dose: Not Given Admin: 09/15/18 05:01 Dose: Not Given Admin: 09/15/18 01:18 Dose: 1 ea Multivitamins (Multivitamin Tab) 1 tab PO DAILY RAFIA Stop: 10/15/18 08:59 Last Admin: 09/15/18 08:25 Dose: 1 tab Pregabalin (Lyrica) 200 mg PO BID RAFIA Stop: 10/15/18 00:05 Last Admin: 09/15/18 08:30 Dose: 200 mg Admin: 09/15/18 01:03 Dose: 200 mg Vitamin B Complex (Vitamin B Complex) 1 tab PO DAILY RAFIA Stop: 10/15/18 08:59 Last Admin: 09/15/18 08:24 Dose: 1 tab Medical Decision Making Differential Diagnosis Differential Diagnosis includes but is not limited to dehydration, stroke, anemia, hypoglycemia, hyponatremia, hypernatremia, urinary tract infection, pneumonia, bronchitis, sepsis, gastroenteritis, additional abdominal pathology, metabolic abnormalities and infections. Medical Records Attestation: I reviewed the patient's medical records. Home Medications Current Medication List: was personally reviewed by me Laboratory Data Attestation: I reviewed the patient's lab results. Result diagrams: 09/15/18 06:28 09/15/18 06:28 Lab Results 09/14/18 09/14/18 09/14/18 Range/Units 17:10 17:10 17:10 WBC 5.18 (4.8-10.8) K/uL RBC 4.21 (4.2-5.4) M/uL Hgb 12.7 (12.0-16.0) g/dL Hct 40.9 (37-47) % MCV 97.1 (80-100) fL MCH 30.2 (25-34) pg MCHC 31.1 L (32-36) g/dL RDW Std Deviation 56.8 H (36.4-46.3) fL RDW Coeff of Nhi 16.1 H (11.5-14.5) % Plt Count 145 (130-400) K/uL MPV 12.6 H (7.4-10.4) fL Immature Gran % (Auto) 0.2 % Neut % (Auto) 70.1 % Lymph % (Auto) 21.0 % Page % (Auto) 6.6 % Eos % (Auto) 1.7 % Baso % (Auto) 0.4 % Immature Gran # (Auto) 0.01 (0.00-0.02) K/uL Neut # (Auto) 3.63 (1.4-6.5) K/uL Lymph # (Auto) 1.09 L (1.2-3.4) K/uL Page # (Auto) 0.34 (0.11-0.59) K/uL Eos # (Auto) 0.09 (0-0.5) K/uL Baso # (Auto) 0.02 (0-0.2) K/uL PT 10.5 (9.0-12.0) Seconds INR 1.0 (0.9-1.1) APTT 25.5 (21.0-31.0) Seconds PTT Ratio 0.9 Sodium 143 (136-145) mmol/L Potassium 4.3 (3.5-5.1) mmol/L Chloride 105 (98-107) mmol/L Carbon Dioxide 30 (21-32) mmol/L Anion Gap 8.0 (3-11) BUN 40 H (7-18) mg/dl Creatinine 1.87 H (0.6-1.2) mg/dl Est Cr Clr Drug Dosing Not Reportable Est GFR ( Amer) 29.5 Est GFR (Non-Af Amer) 25.5 BUN/Creatinine Ratio 21.6 H (10-20) Glucose 145 H (70-99) mg/dl POC Glucose (70-99) Estimat Average Glucose mg/dl Hemoglobin A1c (4.5-5.6) % Calcium 8.4 L (8.5-10.1) mg/dl Magnesium 1.9 (1.8-2.4) mg/dl Total Bilirubin 0.4 (0.2-1) mg/dl AST 19 (15-37) U/L ALT 29 (12-78) U/L Alkaline Phosphatase 61 (45-117) U/L Troponin I 0.018 (0-0.045) ng/ml Total Protein 7.0 (6.4-8.2) gm/dl Albumin 3.3 L (3.4-5.0) gm/dl Globulin 3.7 (2.5-4.0) gm/dl Albumin/Globulin Ratio 0.9 (0.9-2) TSH 3.500 (0.300-4.500) uIu/ml Urine Color Urine Appearance (Clear) Urine pH (4.5-7.5) Ur Specific Sterling (1.000-1.030) Urine Protein (Negative) Urine Glucose (UA) (Negative) Urine Ketones (Negative) Urine Blood (Negative) Urine Nitrite (Negative) Urine Bilirubin (Negative) Urine Urobilinogen (Negative) Ur Leukocyte Esterase (Negative) Urine WBC (Auto) (0-5) /hpf Urine RBC (Auto) (0-4) /hpf U Hyaline Cast (Auto) (0-5) /lpf U Epithel Cells (Auto) (0-5) /lpf Urine Bacteria (Auto) (Negative) 09/15/18 09/15/18 09/15/18 Range/Units 00:35 00:37 00:39 WBC (4.8-10.8) K/uL RBC (4.2-5.4) M/uL Hgb (12.0-16.0) g/dL Hct (37-47) % MCV (80-100) fL MCH (25-34) pg MCHC (32-36) g/dL RDW Std Deviation (36.4-46.3) fL RDW Coeff of Nhi (11.5-14.5) % Plt Count (130-400) K/uL MPV (7.4-10.4) fL Immature Gran % (Auto) % Neut % (Auto) % Lymph % (Auto) % Page % (Auto) % Eos % (Auto) % Baso % (Auto) % Immature Gran # (Auto) (0.00-0.02) K/uL Neut # (Auto) (1.4-6.5) K/uL Lymph # (Auto) (1.2-3.4) K/uL Page # (Auto) (0.11-0.59) K/uL Eos # (Auto) (0-0.5) K/uL Baso # (Auto) (0-0.2) K/uL PT (9.0-12.0) Seconds INR (0.9-1.1) APTT (21.0-31.0) Seconds PTT Ratio Sodium (136-145) mmol/L Potassium (3.5-5.1) mmol/L Chloride (98-107) mmol/L Carbon Dioxide (21-32) mmol/L Anion Gap (3-11) BUN (7-18) mg/dl Creatinine (0.6-1.2) mg/dl Est Cr Clr Drug Dosing Est GFR ( Amer) Est GFR (Non-Af Amer) BUN/Creatinine Ratio (10-20) Glucose (70-99) mg/dl POC Glucose 134 H (70-99) Estimat Average Glucose mg/dl Hemoglobin A1c (4.5-5.6) % Calcium (8.5-10.1) mg/dl Magnesium (1.8-2.4) mg/dl Total Bilirubin (0.2-1) mg/dl AST (15-37) U/L ALT (12-78) U/L Alkaline Phosphatase (45-117) U/L Troponin I 0.040 (0-0.045) ng/ml Total Protein (6.4-8.2) gm/dl Albumin (3.4-5.0) gm/dl Globulin (2.5-4.0) gm/dl Albumin/Globulin Ratio (0.9-2) TSH (0.300-4.500) uIu/ml Urine Color Yellow Urine Appearance Clear (Clear) Urine pH 6.5 (4.5-7.5) Ur Specific Sterling 1.017 (1.000-1.030) Urine Protein 1+ H (Negative) Urine Glucose (UA) Negative (Negative) Urine Ketones Negative (Negative) Urine Blood Negative (Negative) Urine Nitrite Negative (Negative) Urine Bilirubin Negative (Negative) Urine Urobilinogen Negative (Negative) Ur Leukocyte Esterase 1+ H (Negative) Urine WBC (Auto) >30 H (0-5) /hpf Urine RBC (Auto) 0-4 (0-4) /hpf U Hyaline Cast (Auto) 0 (0-5) /lpf U Epithel Cells (Auto) 10-20 H (0-5) /lpf Urine Bacteria (Auto) Negative (Negative) 09/15/18 09/15/18 09/15/18 Range/Units 06:28 06:28 06:28 WBC 3.89 L (4.8-10.8) K/uL RBC 3.79 L (4.2-5.4) M/uL Hgb 11.6 L (12.0-16.0) g/dL Hct 37.3 (37-47) % MCV 98.4 (80-100) fL MCH 30.6 (25-34) pg MCHC 31.1 L (32-36) g/dL RDW Std Deviation 58.3 H (36.4-46.3) fL RDW Coeff of Nhi 16.2 H (11.5-14.5) % Plt Count 110 L (130-400) K/uL MPV 11.9 H (7.4-10.4) fL Immature Gran % (Auto) 0.3 % Neut % (Auto) 66.5 % Lymph % (Auto) 23.1 % Page % (Auto) 8.0 % Eos % (Auto) 1.8 % Baso % (Auto) 0.3 % Immature Gran # (Auto) 0.01 (0.00-0.02) K/uL Neut # (Auto) 2.59 (1.4-6.5) K/uL Lymph # (Auto) 0.90 L (1.2-3.4) K/uL Page # (Auto) 0.31 (0.11-0.59) K/uL Eos # (Auto) 0.07 (0-0.5) K/uL Baso # (Auto) 0.01 (0-0.2) K/uL PT 10.8 (9.0-12.0) Seconds INR 1.1 (0.9-1.1) APTT 25.5 (21.0-31.0) Seconds PTT Ratio 0.9 Sodium 146 H (136-145) mmol/L Potassium 4.1 (3.5-5.1) mmol/L Chloride 110 H (98-107) mmol/L Carbon Dioxide 32 (21-32) mmol/L Anion Gap 4.0 (3-11) BUN 35 H (7-18) mg/dl Creatinine 1.66 H (0.6-1.2) mg/dl Est Cr Clr Drug Dosing 28.7 Est GFR ( Amer) 34.1 Est GFR (Non-Af Amer) 29.4 BUN/Creatinine Ratio 21.1 H (10-20) Glucose 158 H (70-99) mg/dl POC Glucose (70-99) Estimat Average Glucose mg/dl Hemoglobin A1c (4.5-5.6) % Calcium 7.5 L (8.5-10.1) mg/dl Magnesium (1.8-2.4) mg/dl Total Bilirubin 0.4 (0.2-1) mg/dl AST 14 L (15-37) U/L ALT 21 (12-78) U/L Alkaline Phosphatase 49 (45-117) U/L Troponin I (0-0.045) ng/ml Total Protein 6.0 L (6.4-8.2) gm/dl Albumin 2.8 L (3.4-5.0) gm/dl Globulin 3.2 (2.5-4.0) gm/dl Albumin/Globulin Ratio 0.9 (0.9-2) TSH (0.300-4.500) uIu/ml Urine Color Urine Appearance (Clear) Urine pH (4.5-7.5) Ur Specific Sterling (1.000-1.030) Urine Protein (Negative) Urine Glucose (UA) (Negative) Urine Ketones (Negative) Urine Blood (Negative) Urine Nitrite (Negative) Urine Bilirubin (Negative) Urine Urobilinogen (Negative) Ur Leukocyte Esterase (Negative) Urine WBC (Auto) (0-5) /hpf Urine RBC (Auto) (0-4) /hpf U Hyaline Cast (Auto) (0-5) /lpf U Epithel Cells (Auto) (0-5) /lpf Urine Bacteria (Auto) (Negative) 09/15/18 09/15/18 09/15/18 Range/Units 06:28 07:09 11:13 WBC (4.8-10.8) K/uL RBC (4.2-5.4) M/uL Hgb (12.0-16.0) g/dL Hct (37-47) % MCV (80-100) fL MCH (25-34) pg MCHC (32-36) g/dL RDW Std Deviation (36.4-46.3) fL RDW Coeff of Nhi (11.5-14.5) % Plt Count (130-400) K/uL MPV (7.4-10.4) fL Immature Gran % (Auto) % Neut % (Auto) % Lymph % (Auto) % Page % (Auto) % Eos % (Auto) % Baso % (Auto) % Immature Gran # (Auto) (0.00-0.02) K/uL Neut # (Auto) (1.4-6.5) K/uL Lymph # (Auto) (1.2-3.4) K/uL Page # (Auto) (0.11-0.59) K/uL Eos # (Auto) (0-0.5) K/uL Baso # (Auto) (0-0.2) K/uL PT (9.0-12.0) Seconds INR (0.9-1.1) APTT (21.0-31.0) Seconds PTT Ratio Sodium (136-145) mmol/L Potassium (3.5-5.1) mmol/L Chloride (98-107) mmol/L Carbon Dioxide (21-32) mmol/L Anion Gap (3-11) BUN (7-18) mg/dl Creatinine (0.6-1.2) mg/dl Est Cr Clr Drug Dosing Est GFR ( Amer) Est GFR (Non-Af Amer) BUN/Creatinine Ratio (10-20) Glucose (70-99) mg/dl POC Glucose 162 H 150 H (70-99) Estimat Average Glucose 148 mg/dl Hemoglobin A1c 6.8 H (4.5-5.6) % Calcium (8.5-10.1) mg/dl Magnesium (1.8-2.4) mg/dl Total Bilirubin (0.2-1) mg/dl AST (15-37) U/L ALT (12-78) U/L Alkaline Phosphatase (45-117) U/L Troponin I (0-0.045) ng/ml Total Protein (6.4-8.2) gm/dl Albumin (3.4-5.0) gm/dl Globulin (2.5-4.0) gm/dl Albumin/Globulin Ratio (0.9-2) TSH (0.300-4.500) uIu/ml Urine Color Urine Appearance (Clear) Urine pH (4.5-7.5) Ur Specific Sterling (1.000-1.030) Urine Protein (Negative) Urine Glucose (UA) (Negative) Urine Ketones (Negative) Urine Blood (Negative) Urine Nitrite (Negative) Urine Bilirubin (Negative) Urine Urobilinogen (Negative) Ur Leukocyte Esterase (Negative) Urine WBC (Auto) (0-5) /hpf Urine RBC (Auto) (0-4) /hpf U Hyaline Cast (Auto) (0-5) /lpf U Epithel Cells (Auto) (0-5) /lpf Urine Bacteria (Auto) (Negative) Imaging Data Radiologist's Impression: Radiology results as stated below per my review and the radiologist's interpretation: XR chest 1V portable HISTORY: 78 years-old Female weakness acute atypical chest pain with atrial fibrillation and hypotension COMPARISON: Chest radiograph 08/12/2018 TECHNIQUE: Portable AP view of the chest FINDINGS: Cardiac silhouette is enlarged, unchanged. Calcification of the thoracic aortic arch. Pulmonary vascular congestion with interstitial coarsening. No pneumothorax. Trace pleural effusions with bibasilar opacities, left greater than right. Stable positioning of left subclavian [id number] catheter. Degenerative changes of the shoulders and spine. IMPRESSION: 1. Cardiomegaly with mild pulmonary edema. 2. Trace pleural effusions with bibasilar opacities suggesting atelectasis or pneumonitis. The above report was generated using voice recognition software. It may contain grammatical, syntax or spelling errors. Electronically signed by: Dipak Tapia M.D. 09/14/2018 8:01 PM ECG Data Attestation: I personally reviewed and interpreted this ECG as follows: Indication: chest pain Rate (beats per minute): 104 Rhythm: atrial fibrillation Findings: + Q waves (inferior) and + ST depression (lateral) Comparison ECG Date: from (13-AUG-2018) Change: the following changes noted (a fib has replaced maria de jesus) Additional Comments: REPEAT EKG: a-fib, rate of 89 bpm, inferior Q waves, lateral ST depressions. No change from earlier tracing. Blood Pressure Blood Pressure Findings: Elevated blood pressure Blood Pressure Disposition: further management by hospitalist JOSE Narrative The patient is a 78-year-old female who presented to the emergency department with multiple complaints. The patient had chest pain as well as palpitations. She has a history of paroxysmal atrial fibrillation which is normally controlled with medications and anticoagulants. The patient continued to have chest discomfort in the emergency department. I discussed the patient's laboratory and radiographic studies with her. I also discussed the limitations of the emergency department workup for chest pain with her. Ultimately I discussed her case with the on-call [facility] hospitalist. Given the patient's risk factors and comorbidities I felt that she may be expensing discomfort secondary to her atrial fibrillation. They have agreed to evaluate the patient in the emergency department for further management and disposition. Impression & Plan Chest pain, Paroxysmal A-fib Discharge Plan Visit Data *Final* Discharge Date/Time: 09/15/18 00:10 Chief Complaint: Cardiac Assessment Stated Complaint: LOW BP, CHEST PRESSURE, REFERRED ED Provider: Gerry Barbosa Discharge Problem: Chest pain, Paroxysmal A-fib Patient Disposition: Admitted As Inpatient Discharge Instructions Interventions: ED Discharge Assessment Last Done: 09/15/18 00:10 The scribe's documentation has been prepared under my direction and personally reviewed by me in its entirety. I confirm that the note above accurately reflects all work, treatment, procedures, and medical decision making performed by me.
[2018-09-14 19:53] LABS: Magnesium 1.9 mg/dl (1.8-2.4)
--- NOTE | 2018-09-14 20:03 | XRay Report ---
XR chest 1V portable HISTORY: 78 years-old Female weakness acute atypical chest pain with atrial fibrillation and hypoten vidhya COMPARISON: Chest radiograph 08/12/2018 TECHNIQUE: Portable AP view of the chest FINDINGS: Cardiac silhouette is enlarged, unchanged. Calcification of the thoracic aortic arch. Pulmonary vascu lar congestion with interstitial coarsening. No pneumothorax. Trace pleural effusions with bibasilar opacities, left greater than right. Stable positioning of left subclavian Vzvcdj-[id number]-Rixt catheter. Deg enerative changes of the shoulders and spine. IMPRESSION: 1. Cardiomegaly with mild pulmonary edema. 2. Trace pleural effusions with bibasilar opacities suggesting atelectasis or pneumonitis. The above report was generated using voice recognition software. It may contain grammatical, syntax o r spelling errors. Electronically signed by: Dipak Tapia M.D. 09/14/2018 8:01 PM
--- NOTE | 2018-09-14 23:08 | History & Physical Report ---
Date of Service September 14, 2018 Assessment & Plan (1) Chest pressure: Chest pressure/ Paroxysmal Atrial Fib with RVR/CAD-- The patient will be admitted to telemetry for serial cardiac enzymes, serial EKG's, cardiac rhythm monitoring and a 2-D echocardiogram with Dopplers. Continue amiodarone, carvedilol, clopidogrel and apixban. Her symptoms were triggered by the stress of her upcoming oral surgery, the question will be whether she will need to be in a hospital setting for the procedure to be monitored for rapid a-fib. I told her that in large part that may become an insurance approval issue. Consult cardiology. Present on Admission?: Yes (2) Paroxysmal A-fib: as above. Present on Admission?: Yes (3) CAD (coronary artery disease): as above Present on Admission?: Yes (4) Diabetes: reduce insulin glargine from 20 to 14 units subcu bid. hold standing orders for short acting. Place on accuchecks AC and HS with novolog coverage per scale. Present on Admission?: Yes (5) Anxiety: continue buspirone 5mg po bid Present on Admission?: Yes (6) Peripheral neuropathy: continue pregabalin 200mg bid Present on Admission?: Yes (7) Chronic kidney disease with active medical management without dialysis, stage 3 (moderate): Creatinine of 1.87 is within her usual range of 1.60-2.67. Follow serially. Present on Admission?: Yes (8) JANICE treated with BiPAP: if patient does not have her own unit, one will be supplied Present on Admission?: Yes History of Present Illness Chief Complaint: The patient presents to the ED with chest pressure, recurrent palpitations due to atrial fib with RVR, and borderline low BP. Primary Care Provider: Lizet Jeter, The patient is a 78 yo female who presents to the ED with palpitations thought due to recurrent atrial fib with RVR, that she associates with the stress of going to an oral surgeon appointment today regarding a dental procedure needing to be performed on a front tooth. Her EKG shows some new nonspecific inferior lateral changes, so she was referred to the medical service for assessment for admission. She is specific to say that she is having chest pressure, not chest pain. Allergies Allergy/AdvReac Type Severity Reaction Status Date / Time eptifibatide Allergy Severe ANAPHYLAXIS Verified 08/08/18 18:17 hornet venom Allergy Severe WASP VENOM Verified 08/08/18 18:17 PROTEIN-ANAPHYLAXIS levofloxacin [From Levaquin] Allergy Severe Hives Verified 09/14/18 19:43 mivacurium Allergy Intermediate palpatation Verified 08/08/18 18:17 s atorvastatin Allergy Unknown MUSCLE PAIN Verified 08/08/18 18:17 ezetimibe Allergy Unknown MUSCLE PAIN Verified 08/08/18 18:17 simvastatin Allergy Unknown MUSCLE PAIN Verified 08/08/18 18:17 amlodipine AdvReac Severe Nausea Verified 09/14/18 19:43 warfarin AdvReac Intermediate EXTREME Verified 08/08/18 18:17 BLEEDING TIMES codeine AdvReac Mild VOMITING Verified 08/08/18 18:17 gemfibrozil AdvReac Mild NAUSEA Verified 08/08/18 18:17 meperidine AdvReac Mild VOMITING Verified 08/08/18 18:17 ondansetron AdvReac Mild vomiting Verified 08/08/18 18:17 ranitidine [From Zantac] AdvReac Mild dyspepsia Verified 08/08/18 18:17 cortisone AdvReac Unknown INCREASES Verified 08/08/18 18:17 SUGAR AND VOMITING? hydralazine AdvReac Unknown VOMITING Verified 08/08/18 18:17 ibuprofen AdvReac Unknown VOMITING Verified 08/08/18 18:17 AND DIARRHEA iodine AdvReac Unknown SHELLFISH Verified 08/08/18 18:17 - VOMITING shellfish derived AdvReac Unknown VOMITING Verified 08/08/18 18:17 Sulfa (Sulfonamide AdvReac Unknown VOMITING Verified 08/08/18 18:17 Antibiotics) Home Medications Home Medications Medication Instructions Recorded Confirmed Type amiodarone [Pacerone] 100 mg PO BID 06/20/18 09/14/18 History ascorbic acid (vitamin C) [Vitamin 1 g PO DAILY 06/20/18 09/14/18 History C] buspirone 5 mg PO BID 06/20/18 09/14/18 History ergocalciferol (vitamin D2) 50,000 unit PO MONTHLY 06/20/18 09/14/18 History [Vitamin D2] folic acid 800 mcg PO DAILY 06/20/18 09/14/18 History furosemide [Lasix] 40 mg PO Q OTHER DAY 06/20/18 09/14/18 History insulin aspart U-100 [Novolog 11 unit SUBCUT QAM 06/20/18 09/14/18 History U-100 Insulin aspart] insulin aspart U-100 [Novolog 18 unit SUBCUT LD 06/20/18 09/14/18 History U-100 Insulin aspart] insulin aspart U-100 [Novolog 26 unit SUBCUT QPM 06/20/18 09/14/18 History U-100 Insulin aspart] ipratropium-albuterol [Combivent 1 puff INHALATION Q6H PRN 06/20/18 09/14/18 History Respimat] magnesium oxide [MagOx] 400 mg PO BID 06/20/18 09/14/18 History multivitamin 1 tab PO DAILY 06/20/18 09/14/18 History pregabalin [Lyrica] 200 mg PO BID 06/20/18 09/14/18 History tafluprost (PF) [Zioptan (PF)] 1 drp OPB DAILY 06/20/18 09/14/18 History vitamin B complex 1 tab PO DAILY 06/20/18 09/14/18 History carvedilol 12.5 mg PO BID 30 Days #60 tab 06/22/18 09/14/18 Rx apixaban [Eliquis] 2.5 mg PO BID 07/09/18 09/14/18 History clopidogrel 75 mg PO QAM #30 tab 07/09/18 09/14/18 Rx insulin glargine [Lantus Solostar 20 unit SUBCUT BID #0 ml 08/15/18 09/14/18 Rx U-100 Insulin] amoxicillin 2,000 mg PO UD 09/14/18 09/14/18 History Past Med/Surg History Medical History JANICE treated with BiPAP Atrial fibrillation CAD (coronary artery disease) Myocardial infarction Peripheral neuropathy (Chronic) Diabetes (Chronic) HTN (hypertension) (Chronic) CKD (chronic kidney disease) stage 3, GFR 30-59 ml/min Diffuse large B-cell lymphoma of extranodal site (~08/2012) Respiratory failure Chronic-on 2-3L O2 at home Surgical History S/P cardiac catheterization S/P hysterectomy S/P tonsillectomy Family History Other Cancer Diabetes Gallbladder disease Heart disease Hypertension Kidney stones Social History marital status: Current Living Situation: Spouse Other Information That Helps Us Care for You: No Feels Safe at Home: Yes Safety Concerns: Feels Safe At This Time Smoking Status: Never smoker Second Hand Exposure: No Hx Alcohol Use: No Hx Substance Use: No Beliefs That Will Affect Care: None Preferred Language: Irish Review of Systems The patient denies chest pain, cough, lower extremity swelling, sore throat, fevers, chills, sweats, weight change, fatigue, nausea, vomiting, diarrhea , constipation, abdominal pain, pelvic pain, blood in urine or stool, dysuria, urinary frequency or urgency, lightheadedness, dizziness, headache, memory loss , loss of consciousness, rash, abnormal bruising or bleeding, imbalance, focal or generalized weakness, numbness or tingling in arms or legs, generalized arthralgias or myalgias, back or neck pain, or night sweats. The review of systems is otherwise negative other than for that already noted above, and at least 10 systems have been reviewed. Physical Exam 2 Vital Signs (Past 24 Hours): Last Vital Signs Temp 36.7 C 09/14/18 17:00 Pulse 90 09/14/18 22:06 Resp 23 09/14/18 22:06 BP 161/84 H 09/14/18 22:06 Pulse Ox 97 09/14/18 22:06 Physical Exam: The patient is awake, alert and oriented 3, normocephalic and atraumatic, lying in bed and in no acute distress. HEENT--PERRL, EOMI, mucous membranes and oropharynx dry. Neck--supple. No JVD. No bruits. Thyroid normal, trachea midline, no adenopathy. Heart--irregularly irregular, No murmurs, rubs or gallops. Lungs--clear bilaterally, no respiratory distress, no accessory muscle use. Abdomen--normal bowel sounds and soft. Nontender. Nondistended. Obese Extremities--no cyanosis or clubbing. No edema. There are good distal pulses b/ l. Dermatologic--normal skin turgor, normal color, no abnormal lymph nodes, no rash. Neurologic--cranial nerves II through XII grossly intact. Rheumatologic--normal range of motion. Psychiatric--normal affect. Results & Data Laboratory Results Laboratory Results WBC 5.18 K/uL (4.8-10.8) 09/14/18 17:10 RBC 4.21 M/uL (4.2-5.4) 09/14/18 17:10 Hgb 12.7 g/dL (12.0-16.0) 09/14/18 17:10 Hct 40.9 % (37-47) 09/14/18 17:10 MCV 97.1 fL (80-100) 09/14/18 17:10 MCH 30.2 pg (25-34) 09/14/18 17:10 MCHC 31.1 g/dL (32-36) L 09/14/18 17:10 RDW Std Deviation 56.8 fL (36.4-46.3) H 09/14/18 17:10 RDW Coeff of Nhi 16.1 % (11.5-14.5) H 09/14/18 17:10 Plt Count 145 K/uL (130-400) 09/14/18 17:10 MPV 12.6 fL (7.4-10.4) H 09/14/18 17:10 Immature Gran % (Auto) 0.2 % 09/14/18 17:10 Neut % (Auto) 70.1 % 09/14/18 17:10 Lymph % (Auto) 21.0 % 09/14/18 17:10 [place] % (Auto) 6.6 % 09/14/18 17:10 Eos % (Auto) 1.7 % 09/14/18 17:10 Baso % (Auto) 0.4 % 09/14/18 17:10 Immature Gran # (Auto) 0.01 K/uL (0.00-0.02) 09/14/18 17:10 Neut # (Auto) 3.63 K/uL (1.4-6.5) 09/14/18 17:10 Lymph # (Auto) 1.09 K/uL (1.2-3.4) L 09/14/18 17:10 [place] # (Auto) 0.34 K/uL (0.11-0.59) 09/14/18 17:10 Eos # (Auto) 0.09 K/uL (0-0.5) 09/14/18 17:10 Baso # (Auto) 0.02 K/uL (0-0.2) 09/14/18 17:10 PT 10.5 Seconds (9.0-12.0) 09/14/18 17:10 INR 1.0 (0.9-1.1) 09/14/18 17:10 APTT 25.5 Seconds (21.0-31.0) 09/14/18 17:10 PTT Ratio 0.9 09/14/18 17:10 Sodium 143 mmol/L (136-145) 09/14/18 17:10 Potassium 4.3 mmol/L (3.5-5.1) 09/14/18 17:10 Chloride 105 mmol/L (98-107) 09/14/18 17:10 Carbon Dioxide 30 mmol/L (21-32) 09/14/18 17:10 Anion Gap 8.0 (3-11) 09/14/18 17:10 BUN 40 mg/dl (7-18) H 09/14/18 17:10 Creatinine 1.87 mg/dl (0.6-1.2) H 09/14/18 17:10 Est Cr Clr Drug Dosing Not Reportable 09/14/18 17:10 Est GFR ( Amer) 29.5 09/14/18 17:10 Est GFR (Non-Af Amer) 25.5 09/14/18 17:10 BUN/Creatinine Ratio 21.6 (10-20) H 09/14/18 17:10 Glucose 145 mg/dl (70-99) H 09/14/18 17:10 POC Glucose 134 (70-99) H 09/15/18 00:37 Calcium 8.4 mg/dl (8.5-10.1) L 09/14/18 17:10 Magnesium 1.9 mg/dl (1.8-2.4) 09/14/18 17:10 Total Bilirubin 0.4 mg/dl (0.2-1) 09/14/18 17:10 AST 19 U/L (15-37) 09/14/18 17:10 ALT 29 U/L (12-78) 09/14/18 17:10 Alkaline Phosphatase 61 U/L (45-117) 09/14/18 17:10 Troponin I 0.040 ng/ml (0-0.045) 09/15/18 00:39 Total Protein 7.0 gm/dl (6.4-8.2) 09/14/18 17:10 Albumin 3.3 gm/dl (3.4-5.0) L 09/14/18 17:10 Globulin 3.7 gm/dl (2.5-4.0) 09/14/18 17:10 Albumin/Globulin Ratio 0.9 (0.9-2) 09/14/18 17:10 TSH 3.500 uIu/ml (0.300-4.500) 09/14/18 17:10 Urine Color Yellow 09/15/18 00:35 Urine Appearance Clear (Clear) 09/15/18 00:35 Urine pH 6.5 (4.5-7.5) 09/15/18 00:35 Ur Specific [place] 1.017 (1.000-1.030) 09/15/18 00:35 Urine Protein 1+ (Negative) H 09/15/18 00:35 Urine Glucose (UA) Negative (Negative) 09/15/18 00:35 Urine Ketones Negative (Negative) 09/15/18 00:35 Urine Blood Negative (Negative) 09/15/18 00:35 Urine Nitrite Negative (Negative) 09/15/18 00:35 Urine Bilirubin Negative (Negative) 09/15/18 00:35 Urine Urobilinogen Negative (Negative) 09/15/18 00:35 Ur Leukocyte Esterase 1+ (Negative) H 09/15/18 00:35 Urine WBC (Auto) >30 /hpf (0-5) H 09/15/18 00:35 Urine RBC (Auto) 0-4 /hpf (0-4) 09/15/18 00:35 U Hyaline Cast (Auto) 0 /lpf (0-5) 09/15/18 00:35 U Epithel Cells (Auto) 10-20 /lpf (0-5) H 09/15/18 00:35 Urine Bacteria (Auto) Negative (Negative) 09/15/18 00:35 Diagnostic Findings [facility], [place] [phone] XRay Report Patient: PING VIZCAINO Date: 09/14/18 MR#: [id number]: [address] Acct ID:[id number]: [facility] [place] [place] [address] Age: 78Location: ED Sex: F Room/Bed: Att Phy: Diagnosis: LOW BP, CHEST PRESSURE, CARDIAC HX-REFERRED Moni Phy: Lizet Jeter D.O.Service Date: 09/14/18 Fam Phy: Mo Iraheta MDInterpreting Phy: Peter Tapia Admit Phy: Ordering Phy: Gerry Barbosa DO cc: ~ XR chest 1V portable HISTORY: 78 years-old Female weakness acute atypical chest pain with atrial fibrillation and hypotension COMPARISON: Chest radiograph 08/12/2018 TECHNIQUE: Portable AP view of the chest FINDINGS: Cardiac silhouette is enlarged, unchanged. Calcification of the thoracic aortic arch. Pulmonary vascular congestion with interstitial coarsening. No pneumothorax. Trace pleural effusions with bibasilar opacities, left greater than right. Stable positioning of left subclavian Swibcn-c-Zwyr catheter. Degenerative changes of the shoulders and spine. IMPRESSION: 1. Cardiomegaly with mild pulmonary edema. 2. Trace pleural effusions with bibasilar opacities suggesting atelectasis or pneumonitis. The above report was generated using voice recognition software. It may contain grammatical, syntax or spelling errors. Electronically signed by: Dipak Tapia M.D. 09/14/2018 8:01 PM Dictated: 09/14/181999 Transcribed: 09/14/181999 Code Status & VTE Plan Code Status full code VTE Prophylaxis Plan VTE Prophylaxis will be ordered: Yes _ (1) CAD (coronary artery disease) Coronary Disease-Associated Artery/Lesion type: [place] artery [place] vs. 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
[2018-09-15] MEDS ORDERED: GLUCOSE 40% GEL 15 GM TUBE PO PRN (00:06)
[2018-09-15] MEDS ORDERED: ALUMINUM/MAGNESIUM SUSP 30 ML UDC PO PRN (00:06)
[2018-09-15] MEDS ORDERED: ACETAMINOPHEN 325 MG TAB PO PRN (00:06)
[2018-09-15] MEDS ORDERED: DEXTROSE 50% 50 ML SYRINGE IV PRN (00:06)
[2018-09-15] MEDS ORDERED: CARBOHYDRATES FOR HYPOGLYCEMIA PO PRN (00:06)
[2018-09-15] MEDS ORDERED: GLUCAGON FOR INJ 1 MG VIAL SQ PRN (00:06)
[2018-09-15] MEDS ORDERED: MAGNESIUM HYDROXIDE SUSP 30 ML UDC PO PRN (00:06)
[2018-09-15] MEDS ORDERED: GLUCOSE 10 TABS/TUBE PO PRN (00:06)
[2018-09-15] MEDS ORDERED: NITROGLYCERIN SL 0.4 MG/TAB TAB SL PRN (00:06)
[2018-09-15] MEDS ORDERED: IPRATROPIUM BROMIDE/ALBUTEROL respimat INH INH PRN (00:06)
[2018-09-15] MEDS ORDERED: ACETAMINOPHEN 1000 MG/100 ML IV IV PRN (00:06)
[2018-09-15] MEDS ORDERED: ONDANSETRON INJ 2 MG/ML 2 ML VIAL IV PRN (00:06)
[2018-09-15] MEDS ORDERED: POLYETHYLENE (MIRALAX) 17 GM PACK PO PRN (00:06)
[2018-09-15] MEDS: INSULIN GLARGINE SOLOSTAR 100 UNITS/ML 3 ML PEN SQ SCH ×2 (00:58→08:26)
[2018-09-15] MEDS: MAGNESIUM OXIDE 400 MG TAB PO SCH ×2 (00:59→08:24)
[2018-09-15] MEDS: AMIODARONE 200 MG TAB PO SCH ×2 (00:59→08:24)
[2018-09-15] MEDS: CARVEDILOL 12.5 MG TAB PO SCH ×2 (01:00→08:24)
[2018-09-15] MEDS: APIXABAN 2.5 MG TAB PO SCH ×2 (01:00→08:25)
[2018-09-15] MEDS: PREGABALIN 100 MG CAP PO SCH ×2 (01:03→08:30)
[2018-09-15] MEDS: PATIENT'S HEIGHT AND/OR WEIGHT NEEDED SCH ×5 (01:18→07:30)
[2018-09-15 01:37] LABS: Appearance Urine Clear (Clear); Bacteria Urine Automated Negative (Negative); Bilirubin Urine Negative (Negative); Blood Urine Negative (Negative); Cast Urine Automated 0 /lpf (0-5); Color Urine Yellow; Glucose Urine UA Negative (Negative); Ketones Urine Negative (Negative); Leukocyte Esterase Urine 1+ (Negative); Nitrite Urine Negative (Negative); Protein Urine 1+ (Negative); RBC Urine Automated 0-4 /hpf (0-4); Specific Gravity Urine 1.017 (1.000-1.030); Urobilinogen Urine Negative (Negative); WBC Urine Automated >30 /hpf (0-5); pH Urine 6.5 (4.5-7.5)
[2018-09-15] MEDS ORDERED: HEPARIN 100 UNIT/ML 5ML FLUSH ONE (06:29)
[2018-09-15] MEDS ORDERED: NURSING DECISION MEDICATION ONE (06:34)
[2018-09-15] MEDS ORDERED: HEPARIN 100 UNIT/ML 5ML FLUSH IV PRN (06:39)
[2018-09-15 06:52] LABS: Basophils # (auto) 0.01 K/uL (0-0.2); Basophils % (auto) 0.3 %; Eosinophils # (auto) 0.07 K/uL (0-0.5); Eosinophils % (auto) 1.8 %; Hematocrit (blood only) 37.3 % (37-47); Hemoglobin 11.6 g/dL (12.0-16.0); Immature Granulocytes # (auto) 0.01 K/uL (0.00-0.02); Immature Granulocytes % (auto) 0.3 %; Lymphocytes % (auto) 23.1 %; Mean Corpuscular Hgb Conc 31.1 g/dL (32-36); Mean Corpuscular Volume 98.4 fL (80-100); Mean Platelet Volume 11.9 fL (7.4-10.4); Monocytes # (auto) 0.31 K/uL (0.11-0.59); Neutrophils # (auto) 2.59 K/uL (1.4-6.5); Neutrophils % (auto) 66.5 %; Platelet Count 110 K/uL (130-400); RDW Coefficient of Variation 16.2 % (11.5-14.5); RDW Standard Deviation 58.3 fL (36.4-46.3); Red Blood Count 3.79 M/uL (4.2-5.4); White Blood Count 3.89 K/uL (4.8-10.8)
[2018-09-15 06:55] LABS: Estimated Average Glucose 148 mg/dl; Hemoglobin A1C 6.8 % (4.5-5.6)
[2018-09-15 07:11] LABS: INR 1.1 (0.9-1.1); Partial Thromboplastin Ratio 0.9; Partial Thromboplastin Time 25.5 Seconds (21.0-31.0); Prothrombin Time 10.8 Seconds (9.0-12.0)
[2018-09-15 07:22] LABS: Albumin Level 2.8 gm/dl (3.4-5.0); BUN Creatinine Ratio 21.1 (10-20); Calcium 7.5 mg/dl (8.5-10.1); Creatinine Clr Calc Pharmacy 28.7 ml/min; Est GFR (African American) 34.1; Est GFR (Non-African American) 29.4; Potassium 4.1 mmol/L (3.5-5.1)
[2018-09-15 07:25] LABS: Albumin Globulin Ratio 0.9 (0.9-2); Bilirubin,Total 0.4 mg/dl (0.2-1); Globulin 3.2 gm/dl (2.5-4.0)
--- NOTE | 2018-09-15 08:11 | Hospitalist Progress Note ---
Date of Service September 15, 2018 Assessment & Plan (1) Chest pressure: Chest pressure/ Paroxysmal Atrial Fib with RVR/CAD-- Continue amiodarone, carvedilol, clopidogrel and apixban. Her symptoms were triggered by the stress of her upcoming oral surgery, the question will be whether she will need to be in a hospital setting for the procedure to be monitored for rapid a-fib. Consult cardiology. (2) Paroxysmal A-fib: as above. (3) CAD (coronary artery disease): as above (4) Diabetes: reduce insulin glargine from 20 to 14 units subcu bid. hold standing orders for short acting. Place on accuchecks AC and HS with novolog coverage per scale. (5) Anxiety: continue buspirone 5mg po bid (6) Peripheral neuropathy: continue pregabalin 200mg bid (7) Chronic kidney disease with active medical management without dialysis, stage 3 (moderate): Creatinine of 1.87 is within her usual range of 1.60-2.67. Follow serially. (8) JANICE treated with BiPAP: if patient does not have her own unit, one will be supplied Physical Exam 2 Vital Signs (Past 24 Hours): Last Vital Signs Temp 36.7 C 09/15/18 07:52 Pulse 92 H 09/15/18 07:52 Resp 19 09/15/18 07:52 BP 136/77 09/15/18 07:52 Pulse Ox 97 09/15/18 07:52 _ (1) CAD (coronary artery disease) Coronary Disease-Associated Artery/Lesion type: [place] artery [place] vs. 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
[2018-09-15] MEDS: INSULIN ASPART 100 UNITS/ML 3 ML PEN SC SCH ×2 (08:25→12:17)
[2018-09-15] MEDS ORDERED: VITAMIN B COMPLEX TAB PO SCH (09:00)
[2018-09-15] MEDS ORDERED: ASCORBIC ACID 500 MG TAB PO SCH (09:00)
[2018-09-15] MEDS ORDERED: MULTIVITAMIN TAB PO SCH (09:00)
[2018-09-15] MEDS ORDERED: FOLIC ACID 400 MCG TAB PO SCH (09:00)
[2018-09-15] MEDS ORDERED: CLOPIDOGREL BISULFATE 75 MG TAB PO SCH (09:00)
--- NOTE | 2018-09-15 10:19 | Cardiology Consultation ---
Date of Consultation September 15, 2018 Assessment & Plan (1) Chest pressure: 2. CAD 3. Atrial fibrillation with RVR 4. Apical variant hypertrophic cardiomyopathy 5. Chronic diastolic heart failure 6. Hypertension 7. Dyslipidemia Patient developed palpitations, tachycardia and associated chest discomfort yesterday. Her symptoms developed while she was feeling anxious about meeting with her oral surgeon to discuss possible surgery. Initial EKG noted afib with elevated heart rate. She remains in afib but her heart rate is now well controlled. She is chest pain free. On exam she is well perfused without signs of heart failure. Her troponin levels are normal and EKG without acute ischemic changes. Her symptoms were likely due to her atrial fibrillation rather than acute coronary syndrome. Stable for discharge from cardiac standpoint with followup in our office. Supervising Physician Co-Signing Physician Notes Agree with assessment and plan as outlined by physician photo studio assistant Karlie Maldonado. Symptoms likely secondary to atrial fibrillation. Will rate controlled today. Symptoms seem to be triggered due to stress regarding possible oral surgery. Recommend oral surgery be deferred as DAPT should be continued for at least 6 months post most recent PCI with stenting. History of Present Illness Attending Physician: Zachery Lomeli MD History of Present Illness Mrs. Hagen is a very pleasant 78-year-old female with a history of coronary artery disease status post multivessel stenting (most recently RCA DESx 2 2017), paroxysmal atrial fibrillation/flutter, apical variant hypertrophic cardiomyopathy, chronic diastolic heart failure, hypertension, hyperlipidemia, insulin dependent diabetes, chronic kidney disease, JANICE on BiPAP, large B-cell lymphoma in remission, and prior subdural hematoma post craniotomy 11/2016. She was admitted on 09/14/18 with chest pain and afib with RVR. She had an appointment with her oral surgeon to discuss a possible dental procedure. She felt very anxious about possibly undergoing surgery and around noon developed palpitations, tachycardia and chest discomfort. Her hear rate was as high as the 120s and she notes her blood pressure was low. The chest discomfort initially felt "crushing" and later become more of a pressure. It was brought on with exertion. She states the pain felt similar to a previous episode of atrial fibrillation which required cardioversion last year. It was different than her prior angina symptoms. Chest discomfort lasted greater than 5 hours in duration. She did not take nitro. She had no associated shortness of breath or diaphoresis. She had some mild nausea which she attributes to not eating all day. She reports feeling much better today. She denies any recurrent chest discomfort. No shortness of breath, orthopnea or edema. No further palpitations. No lightheadedness, near syncope or syncope. No abnormal bleeding. Allergies Allergy/AdvReac Type Severity Reaction Status Date / Time eptifibatide Allergy Severe ANAPHYLAXIS Verified 08/08/18 18:17 hornet venom Allergy Severe WASP VENOM Verified 08/08/18 18:17 PROTEIN-ANAPHYLAXIS levofloxacin [From Levaquin] Allergy Severe Hives Verified 09/14/18 19:43 mivacurium Allergy Intermediate palpatation Verified 08/08/18 18:17 s atorvastatin Allergy Unknown MUSCLE PAIN Verified 08/08/18 18:17 ezetimibe Allergy Unknown MUSCLE PAIN Verified 08/08/18 18:17 simvastatin Allergy Unknown MUSCLE PAIN Verified 08/08/18 18:17 amlodipine AdvReac Severe Nausea Verified 09/14/18 19:43 warfarin AdvReac Intermediate EXTREME Verified 08/08/18 18:17 BLEEDING TIMES codeine AdvReac Mild VOMITING Verified 08/08/18 18:17 gemfibrozil AdvReac Mild NAUSEA Verified 08/08/18 18:17 meperidine AdvReac Mild VOMITING Verified 08/08/18 18:17 ondansetron AdvReac Mild vomiting Verified 08/08/18 18:17 ranitidine [From Zantac] AdvReac Mild dyspepsia Verified 08/08/18 18:17 cortisone AdvReac Unknown INCREASES Verified 08/08/18 18:17 SUGAR AND VOMITING? hydralazine AdvReac Unknown VOMITING Verified 08/08/18 18:17 ibuprofen AdvReac Unknown VOMITING Verified 08/08/18 18:17 AND DIARRHEA iodine AdvReac Unknown SHELLFISH Verified 08/08/18 18:17 - VOMITING shellfish derived AdvReac Unknown VOMITING Verified 08/08/18 18:17 Sulfa (Sulfonamide AdvReac Unknown VOMITING Verified 08/08/18 18:17 Antibiotics) Home Medications Home Medications Medication Instructions Recorded Confirmed Type amiodarone [Pacerone] 100 mg PO BID 06/20/18 09/14/18 History ascorbic acid (vitamin C) [Vitamin 1 g PO DAILY 06/20/18 09/14/18 History C] buspirone 5 mg PO BID 06/20/18 09/14/18 History ergocalciferol (vitamin D2) 50,000 unit PO MONTHLY 06/20/18 09/14/18 History [Vitamin D2] folic acid 800 mcg PO DAILY 06/20/18 09/14/18 History furosemide [Lasix] 40 mg PO Q OTHER DAY 06/20/18 09/14/18 History insulin aspart U-100 [Novolog 11 unit SUBCUT QAM 06/20/18 09/14/18 History U-100 Insulin aspart] insulin aspart U-100 [Novolog 18 unit SUBCUT LD 06/20/18 09/14/18 History U-100 Insulin aspart] insulin aspart U-100 [Novolog 26 unit SUBCUT QPM 06/20/18 09/14/18 History U-100 Insulin aspart] ipratropium-albuterol [Combivent 1 puff INHALATION Q6H PRN 06/20/18 09/14/18 History Respimat] magnesium oxide [MagOx] 400 mg PO BID 06/20/18 09/14/18 History multivitamin 1 tab PO DAILY 06/20/18 09/14/18 History pregabalin [Lyrica] 200 mg PO BID 06/20/18 09/14/18 History tafluprost (PF) [Zioptan (PF)] 1 drp OPB DAILY 06/20/18 09/14/18 History vitamin B complex 1 tab PO DAILY 06/20/18 09/14/18 History carvedilol 12.5 mg PO BID 30 Days #60 tab 06/22/18 09/14/18 Rx apixaban [Eliquis] 2.5 mg PO BID 07/09/18 09/14/18 History clopidogrel 75 mg PO QAM #30 tab 07/09/18 09/14/18 Rx insulin glargine [Lantus Solostar 20 unit SUBCUT BID #0 ml 08/15/18 09/14/18 Rx U-100 Insulin] amoxicillin 2,000 mg PO UD 09/14/18 09/14/18 History Patient History Medical History JANICE treated with BiPAP Atrial fibrillation CAD (coronary artery disease) Myocardial infarction Peripheral neuropathy (Chronic) Diabetes (Chronic) HTN (hypertension) (Chronic) CKD (chronic kidney disease) stage 3, GFR 30-59 ml/min Diffuse large B-cell lymphoma of extranodal site (~08/2012) Respiratory failure Chronic-on 2-3L O2 at home Surgical History S/P cardiac catheterization S/P hysterectomy S/P tonsillectomy Family History Other Cancer Diabetes Gallbladder disease Heart disease Hypertension Kidney stones Social History marital status: Current Living Situation: Spouse Other Information That Helps Us Care for You: No Feels Safe at Home: Yes Safety Concerns: Feels Safe At This Time Smoking Status: Never smoker Second Hand Exposure: No Hx Alcohol Use: No Hx Substance Use: No Beliefs That Will Affect Care: None Preferred Language: Chinese Review [employer] Systems 10 point ROS completed and otherwise negative unless stated in HPI Physical Exam 2 Vital Signs (Past 24 Hours): Last Vital Signs Temp 36.7 C 09/15/18 07:52 Pulse 92 H 09/15/18 07:52 Resp 19 09/15/18 07:52 BP 136/77 09/15/18 07:52 Pulse Ox 97 09/15/18 07:52 Physical Exam: General: No acute distress, comfortable. HEENT: Head is normal. PERRLA. EOMI. Sclerae anicteric. Ears, nose and throat unremarkable. Mucous membranes moist. Neck: Normal carotid upstrokes, no bruits. No appreciable JVD. Lungs: Clear to auscultation bilaterally without rales, rhonchi or wheezes. Cardiac: Irregularly irregular. Controlled rate. S1-S2 normal. No appreciable murmur, gallop or rub. Abdomen: Soft and nontender. Bowel sounds normal. No mass or organomegaly. No abdominal bruit. Extremities/vascular: Well perfused. No edema. Radial, DP and PT pulses 2+ bilaterally Skin: No rash or abnormal lesions. Normal turgor. Neurologic: Nonfocal Psychiatric: Affect appropriate. Alert and oriented. Results & Data Laboratory Results Laboratory Results - last 24 hr 09/14/18 09/14/18 09/14/18 17:10 17:10 17:10 WBC 5.18 RBC 4.21 Hgb 12.7 Hct 40.9 MCV 97.1 MCH 30.2 MCHC 31.1 L RDW Std Deviation 56.8 H RDW Coeff of Nhi 16.1 H Plt Count 145 MPV 12.6 H Immature Gran % (Auto) 0.2 Neut % (Auto) 70.1 Lymph % (Auto) 21.0 Vance % (Auto) 6.6 Eos % (Auto) 1.7 Baso % (Auto) 0.4 Immature Gran # (Auto) 0.01 Neut # (Auto) 3.63 Lymph # (Auto) 1.09 L Vance # (Auto) 0.34 Eos # (Auto) 0.09 Baso # (Auto) 0.02 PT 10.5 INR 1.0 APTT 25.5 PTT Ratio 0.9 Sodium 143 Potassium 4.3 Chloride 105 Carbon Dioxide 30 Anion Gap 8.0 BUN 40 H Creatinine 1.87 H Est Cr Clr Drug Dosing Not Reportable Est GFR ( Amer) 29.5 Est GFR (Non-Af Amer) 25.5 BUN/Creatinine Ratio 21.6 H Glucose 145 H POC Glucose Estimat Average Glucose Hemoglobin A1c Calcium 8.4 L Magnesium 1.9 Total Bilirubin 0.4 AST 19 ALT 29 Alkaline Phosphatase 61 Troponin I 0.018 Total Protein 7.0 Albumin 3.3 L Globulin 3.7 Albumin/Globulin Ratio 0.9 TSH 3.500 Urine Color Urine Appearance Urine pH Ur Specific [place] Urine Protein Urine Glucose (UA) Urine Ketones Urine Blood Urine Nitrite Urine Bilirubin Urine Urobilinogen Ur Leukocyte Esterase Urine WBC (Auto) Urine RBC (Auto) U Hyaline Cast (Auto) U Epithel Cells (Auto) Urine Bacteria (Auto) 09/15/18 09/15/18 09/15/18 00:35 00:37 00:39 WBC RBC Hgb Hct MCV MCH MCHC RDW Std Deviation RDW Coeff of Nhi Plt Count MPV Immature Gran % (Auto) Neut % (Auto) Lymph % (Auto) Vance % (Auto) Eos % (Auto) Baso % (Auto) Immature Gran # (Auto) Neut # (Auto) Lymph # (Auto) Vance # (Auto) Eos # (Auto) Baso # (Auto) PT INR APTT PTT Ratio Sodium Potassium Chloride Carbon Dioxide Anion Gap BUN Creatinine Est Cr Clr Drug Dosing Est GFR ( Amer) Est GFR (Non-Af Amer) BUN/Creatinine Ratio Glucose POC Glucose 134 H Estimat Average Glucose Hemoglobin A1c Calcium Magnesium Total Bilirubin AST ALT Alkaline Phosphatase Troponin I 0.040 Total Protein Albumin Globulin Albumin/Globulin Ratio TSH Urine Color Yellow Urine Appearance Clear Urine pH 6.5 Ur Specific [place] 1.017 Urine Protein 1+ H Urine Glucose (UA) Negative Urine Ketones Negative Urine Blood Negative Urine Nitrite Negative Urine Bilirubin Negative Urine Urobilinogen Negative Ur Leukocyte Esterase 1+ H Urine WBC (Auto) >30 H Urine RBC (Auto) 0-4 U Hyaline Cast (Auto) 0 U Epithel Cells (Auto) 10-20 H Urine Bacteria (Auto) Negative 09/15/18 09/15/18 09/15/18 06:28 06:28 06:28 WBC 3.89 L RBC 3.79 L Hgb 11.6 L Hct 37.3 MCV 98.4 MCH 30.6 MCHC 31.1 L RDW Std Deviation 58.3 H RDW Coeff of Nhi 16.2 H Plt Count 110 L MPV 11.9 H Immature Gran % (Auto) 0.3 Neut % (Auto) 66.5 Lymph % (Auto) 23.1 Vance % (Auto) 8.0 Eos % (Auto) 1.8 Baso % (Auto) 0.3 Immature Gran # (Auto) 0.01 Neut # (Auto) 2.59 Lymph # (Auto) 0.90 L Vance # (Auto) 0.31 Eos # (Auto) 0.07 Baso # (Auto) 0.01 PT 10.8 INR 1.1 APTT 25.5 PTT Ratio 0.9 Sodium 146 H Potassium 4.1 Chloride 110 H Carbon Dioxide 32 Anion Gap 4.0 BUN 35 H Creatinine 1.66 H Est Cr Clr Drug Dosing 28.7 Est GFR ( Amer) 34.1 Est GFR (Non-Af Amer) 29.4 BUN/Creatinine Ratio 21.1 H Glucose 158 H POC Glucose Estimat Average Glucose Hemoglobin A1c Calcium 7.5 L Magnesium Total Bilirubin 0.4 AST 14 L ALT 21 Alkaline Phosphatase 49 Troponin I Total Protein 6.0 L Albumin 2.8 L Globulin 3.2 Albumin/Globulin Ratio 0.9 TSH Urine Color Urine Appearance Urine pH Ur Specific [place] Urine Protein Urine Glucose (UA) Urine Ketones Urine Blood Urine Nitrite Urine Bilirubin Urine Urobilinogen Ur Leukocyte Esterase Urine WBC (Auto) Urine RBC (Auto) U Hyaline Cast (Auto) U Epithel Cells (Auto) Urine Bacteria (Auto) 09/15/18 09/15/18 06:28 07:09 WBC RBC Hgb Hct MCV MCH MCHC RDW Std Deviation RDW Coeff of Nhi Plt Count MPV Immature Gran % (Auto) Neut % (Auto) Lymph % (Auto) Vance % (Auto) Eos % (Auto) Baso % (Auto) Immature Gran # (Auto) Neut # (Auto) Lymph # (Auto) Vance # (Auto) Eos # (Auto) Baso # (Auto) PT INR APTT PTT Ratio Sodium Potassium Chloride Carbon Dioxide Anion Gap BUN Creatinine Est Cr Clr Drug Dosing Est GFR ( Amer) Est GFR (Non-Af Amer) BUN/Creatinine Ratio Glucose POC Glucose 162 H Estimat Average Glucose 148 Hemoglobin A1c 6.8 H Calcium Magnesium Total Bilirubin AST ALT Alkaline Phosphatase Troponin I Total Protein Albumin Globulin Albumin/Globulin Ratio TSH Urine Color Urine Appearance Urine pH Ur Specific [place] Urine Protein Urine Glucose (UA) Urine Ketones Urine Blood Urine Nitrite Urine Bilirubin Urine Urobilinogen Ur Leukocyte Esterase Urine WBC (Auto) Urine RBC (Auto) U Hyaline Cast (Auto) U Epithel Cells (Auto) Urine Bacteria (Auto) ECG Additional Comments: EKGs reviewed: initial EKG afib with rate in low 100s. EKG today afib with controlled rate. ST/T wave abnormality which is similar to previous EKGs.
--- NOTE | 2018-09-15 13:25 | Discharge Summary ---
Date of Service September 15, 2018 Admission HPI Per Admitting Provider The patient is a 78 yo female who presents to the ED with palpitations thought due to recurrent atrial fib with RVR, that she associates with the stress of going to an oral surgeon appointment today regarding a dental procedure needing to be performed on a front tooth. Her EKG shows some new nonspecific inferior lateral changes, so she was referred to the medical service for assessment for admission. She is specific to say that she is having chest pressure, not chest pain. Principal Diagnosis atrial fibrillation with rapid response Discharge Exam Constitutional well developed and average body habitus Eyes no conjunctival abnormality and no scleral abnormality Neck normal visual inspection and trachea midline Respiratory normal respiratory effort; no respiratory distress Auscultation: lungs clear to auscultation bilaterally Cardiovascular RRR, no murmur, no edema Gastrointestinal (Abdomen) normal bowel sounds, soft, nontender, no hepatosplenomegaly Musculoskeletal no cyanosis or clubbing, extremities motor strength 5/5 Discharge Data Allergies Allergy/AdvReac Type Severity Reaction Status Date / Time eptifibatide Allergy Severe ANAPHYLAXIS Verified 08/08/18 18:17 hornet venom Allergy Severe WASP VENOM Verified 08/08/18 18:17 PROTEIN-ANAPHYLAXIS levofloxacin [From Levaquin] Allergy Severe Hives Verified 09/14/18 19:43 mivacurium Allergy Intermediate palpatation Verified 08/08/18 18:17 s atorvastatin Allergy Unknown MUSCLE PAIN Verified 08/08/18 18:17 ezetimibe Allergy Unknown MUSCLE PAIN Verified 08/08/18 18:17 simvastatin Allergy Unknown MUSCLE PAIN Verified 08/08/18 18:17 amlodipine AdvReac Severe Nausea Verified 09/14/18 19:43 warfarin AdvReac Intermediate EXTREME Verified 08/08/18 18:17 BLEEDING TIMES codeine AdvReac Mild VOMITING Verified 08/08/18 18:17 gemfibrozil AdvReac Mild NAUSEA Verified 08/08/18 18:17 meperidine AdvReac Mild VOMITING Verified 08/08/18 18:17 ondansetron AdvReac Mild vomiting Verified 08/08/18 18:17 ranitidine [From Zantac] AdvReac Mild dyspepsia Verified 08/08/18 18:17 cortisone AdvReac Unknown INCREASES Verified 08/08/18 18:17 SUGAR AND VOMITING? hydralazine AdvReac Unknown VOMITING Verified 08/08/18 18:17 ibuprofen AdvReac Unknown VOMITING Verified 08/08/18 18:17 AND DIARRHEA iodine AdvReac Unknown SHELLFISH Verified 08/08/18 18:17 - VOMITING shellfish derived AdvReac Unknown VOMITING Verified 08/08/18 18:17 Sulfa (Sulfonamide AdvReac Unknown VOMITING Verified 08/08/18 18:17 Antibiotics) Consultations 09/14/18 21:08 ED Decision to Admit Stat 09/15/18 00:06 Consult Cardiology Routine Consult Case Management - Discharge Planning Routine Hospital Course (1) Chest pressure: Chest pressure/ Paroxysmal Atrial Fib with RVR/CAD-- Cardiology did evaluate and does not feel any additional intervention will recommend to continue amiodarone, carvedilol, clopidogrel and apixban. Her symptoms were triggered by the stress of her upcoming oral surgery, she will need to have this timed to be at least 6 months after her recent cardiac stent procedure (2) Paroxysmal A-fib: as above. (3) CAD (coronary artery disease): as above (4) Diabetes: will return to her home regimen (5) Anxiety: continue buspirone 5mg po bid, pt was offered ativan and refused a Rx (6) Peripheral neuropathy: continue pregabalin 200mg bid (7) Chronic kidney disease with active medical management without dialysis, stage 3 (moderate): (8) JANICE treated with BiPAP: Total Time Total Time Spent Total Time Spent (In Minutes): greater than 30 minutes were required to prepare discharge Discharge Plan Discharge Items Patient Disposition: Home - Self-Care Reason For Visit: ATRIAL FIB WITH RVR Discharge Diagnosis: atrial fibrillation Discharge Goals: Decrease discomfort and Improve disease control Activity: Resume your previous activity Non-emergency contact: Primary Care Provider and Percussion Teacher Call non-emergency contact if: you have any medication questions Diet: Carb Consistent or DM2 Addtl Provider Instructions: follow up with Dr Iraheta, no oral surgery until at least 6 months after your cardiac stents were placed as you cannot stop plavix for at minimum of 6 months for concern of stents becoming clotted Prescriptions: Continue multivitamin Tablet 1 tab PO DAILY RF: 0 buspirone 5 mg tablet 5 mg PO BID RF: 0 amiodarone [Pacerone] 200 mg tablet 100 mg PO BID RF: 0 folic acid 400 mcg Tablet 800 mcg PO DAILY RF: 0 vitamin B complex Tablet 1 tab PO DAILY RF: 0 pregabalin [Lyrica] 200 mg capsule 200 mg PO BID RF: 0 ipratropium-albuterol [Combivent Respimat] 20-100 mcg/actuation Mist 1 puff INHALATION Q6H PRN (Reason: Shortness Of Breath Or Wheezing) RF: 0 furosemide [Lasix] 40 mg tablet 40 mg PO Q OTHER DAY RF: 0 ascorbic acid (vitamin C) [Vitamin C] 1,000 mg Tablet 1 g PO DAILY RF: 0 magnesium oxide [MagOx] 400 mg (241.3 mg magnesium) tablet 400 mg PO BID RF: 0 insulin aspart U-100 [Novolog U-100 Insulin aspart] 100 unit/mL Solution 18 unit SUBCUT LD RF: 0 insulin aspart U-100 [Novolog U-100 Insulin aspart] 100 unit/mL Solution 26 unit SUBCUT QPM RF: 0 insulin aspart U-100 [Novolog U-100 Insulin aspart] 100 unit/mL Solution 11 unit SUBCUT QAM RF: 0 ergocalciferol (vitamin D2) [Vitamin D2] 50,000 unit Capsule 50,000 unit PO MONTHLY RF: 0 tafluprost (PF) [Zioptan (PF)] 0.0015 % dropperette 1 drp OPB DAILY RF: 0 carvedilol 12.5 mg tablet 12.5 mg PO BID 30 Days Qty: 60 RF: 3 insulin glargine [Lantus Solostar U-100 Insulin] 100 unit/mL (3 mL) insulin pen 20 unit subcut BID Qty: 0 RF: 0 amoxicillin 500 mg Tablet 2,000 mg PO UD RF: 0 apixaban [Eliquis] 2.5 mg Tablet 2.5 mg PO BID RF: 0 clopidogrel 75 mg Tablet 75 mg PO QAM Qty: 30 RF: 0 Stand-Alone Forms: [facility] Discharge Orders: Discharge Order (Routine); Ordered 09/15/18 Ordered By: Zachery Lomeli Admission Data Admit Date/Time: 09/14/18 23:08 Attending Provider: Zachery Lomeli Admit Provider: Jeffery Del Rio Primary Care Provider: Lizet Jeter Other Providers: Jeffery Del Rio ; Iggy Fisher Service: Telemetry
== END 2018-09-15 14:27 | disposition home or self-care (01) ==
LOC: ED 16:57 → 2S 16:57 → SUATTDRO 23:08 → 2S 09-15 00:10

== ENCOUNTER 2018-11-15 11:16 | Inpatient (IN) ==
[2018-11-15 12:48] LABS: INR 1.1 (0.9-1.1); Partial Thromboplastin Ratio 1.5; Partial Thromboplastin Time 41.7 Seconds (21.0-31.0)
[2018-11-15 12:54] LABS: BUN Creatinine Ratio 24.5 (10-20); Calcium 8.2 mg/dl (8.5-10.1); Creatinine Clr Calc Pharmacy 32.2 ml/min; Est GFR (African American) 37.9; Est GFR (Non-African American) 32.7; Potassium 4.2 mmol/L (3.5-5.1)
[2018-11-15 12:59] LABS: Albumin Globulin Ratio 0.9 (0.9-2); Bilirubin,Total 0.3 mg/dl (0.2-1); Globulin 3.4 gm/dl (2.5-4.0); Total Protein 6.4 gm/dl (6.4-8.2); Troponin I 0.034 ng/ml (0-0.045)
[2018-11-15 13:01] LABS: Hematocrit (blood only) 38.1 % (37-47); Hemoglobin 11.7 g/dL (12.0-16.0); Mean Corpuscular Hgb Conc 30.7 g/dL (32-36); Mean Corpuscular Volume 94.8 fL (80-100); Mean Platelet Volume 12.8 fL (7.4-10.4); Platelet Count 90 K/uL (130-400); RDW Coefficient of Variation 16.4 % (11.5-14.5); RDW Standard Deviation 56.7 fL (36.4-46.3); Red Blood Count 4.02 M/uL (4.2-5.4); White Blood Count 5.21 K/uL (4.8-10.8)
[2018-11-15 13:02] LABS: Basophils # (auto) 0.01 K/uL (0-0.2); Basophils % (auto) 0.2 %; Eosinophils # (auto) 0.04 K/uL (0-0.5); Eosinophils % (auto) 0.8 %; Immature Granulocytes # (auto) 0.02 K/uL (0.00-0.02); Immature Granulocytes % (auto) 0.4 %; Lymphocytes # (auto) 0.87 K/uL (1.2-3.4); Lymphocytes % (auto) 16.7 %; Monocytes # (auto) 0.42 K/uL (0.11-0.59); Monocytes % (auto) 8.1 %; Neutrophils # (auto) 3.85 K/uL (1.4-6.5); Neutrophils % (auto) 73.8 %; Platelet Estimate Decreased (Normal); RBC Morphology Unremarkable
--- NOTE | 2018-11-15 13:48 | CT Scan Report ---
CT head/brain wo con CLINICAL HISTORY: 78 years-old Female with headache. Acute headache with history of prior craniotomy TECHNIQUE: Multiple axial CT images of the head were obtained without contrast. A dose lowering tech nique was utilized adhering to the principles of ALARA. CT DOSE: 638.56 mGycm COMPARISON: Head CT 01/20/2018. FINDINGS: Hyperattenuating extra-axial area about the subdural distribution adjacent to the right frontal conve xity is unchanged measuring up to 3 mm, likely postsurgical and unchanged. Postoperative changes from prior right parietal craniotomy. Age-related involutional changes. Ill-defined white matter hypodens ities suggest chronic microvascular ischemic changes. Senescent calcifications of the lentiform nucle i. No acute intracranial hemorrhage, midline shift, new abnormal extra-axial collections, intracrania l mass or territorial infarct. Cerebral vascular calcifications are noted. Mild mucosal thickening of the maxillary, ethmoid and sphenoid sinuses. Mastoid air cells and middle ear cavities are clear. Secretions are seen about the nasopharynx. The soft tissues and orbits are un remarkable. Prior bilateral cataract repair. IMPRESSION: Chronic findings as above without acute intracranial abnormality. The above report was generated using voice recognition software. It may contain grammatical, syntax o r spelling errors. Electronically signed by: Dipak Tapia M.D. 11/15/2018 1:47 PM
[2018-11-15 14:27] LABS: Appearance Urine Clear (Clear); Bacteria Urine Automated Negative (Negative); Bilirubin Urine Negative (Negative); Blood Urine Negative (Negative); Cast Urine Automated 0 /lpf (0-5); Color Urine Yellow; Glucose Urine UA Negative (Negative); Ketones Urine Negative (Negative); Leukocyte Esterase Urine Trace (Negative); Nitrite Urine Negative (Negative); Protein Urine 2+ (Negative); RBC Urine Automated 0-4 /hpf (0-4); Specific Gravity Urine 1.024 (1.000-1.030); Urobilinogen Urine Negative (Negative)
--- NOTE | 2018-11-15 14:43 | XRay Report ---
XR chest 2V routine CLINICAL HISTORY: cough COMPARISON STUDY: No previous studies for comparison. FINDINGS: The heart remains enlarged. There is a left-sided A-Port catheter. There is persistent but improving congestive failure/fluid overload. There is no lobar consolidation. Trace pleural effusions are suspected. Increased left basilar markings are likely atelectatic.[ IMPRESSION: Cardiomegaly and persistent but improving congestive failure/fluid overload. Electronically signed by: Olaf Muir M.D. 11/15/2018 2:42 PM
--- NOTE | 2018-11-15 15:17 | Emergency Department Note ---
ED Visit Note This Patient was discussed with the physician furniture removalist's assistant, Purvi Niño PA-C. The pertinent historical and physical exam findings were confirmed. I agree with the studies ordered and with the interpretations of these studies. I agree with the disposition and care plan. .
[2018-11-15] MEDS ORDERED: FUROSEMIDE 40 MG/4 ML VIAL IV STA (15:20)
[2018-11-15] MEDS ORDERED: ACETAMINOPHEN 325 MG TAB PO STA (15:42)
--- NOTE | 2018-11-15 16:20 | Emergency Department Note ---
History of Present Illness General Chief Complaint: Shortness of Breath/Dyspnea Stated Complaint: PNEUMONIA Source: patient Mode of arrival: ambulatory Limitations: no limitations History of Present Illness Provider Complaint: shortness of breath, cough and pain with inspiration Onset (ago): week(s) (1.5) Severity: moderate Consistency/Duration: + progressively worsening Maximum Pain Intensity: 7 Current Pain Intensity: 7 Relieved By: + nothing Exacerbated By: + lying flat, + exertion and + coughing Context: + recent illness Known history of: COPD, congestive heart failure and recurrent pneumonia Associated symptoms: + fever (subjective), + cough, + wheezing, + sputum production, + orthopnea, + chest congestion and + other (headache) Treatment prior to arrival: diuretics (80mg lasix BID) and other (doxycycline) This 78-year-old female patient presents emergency department today, ambulatory, accompanied by her . She is complaining of cough, chest congestion, and "pneumonia" since Tuesday. The patient states her symptoms have been ongoing for approximately 10-14 days. She has noticed progressive edema in her lower ex tremities early on, and states early last week, she was seen by her PCP who increased her Lasix to 80 mg twice daily. She states by Tuesday, her coughing and chest congestion were worse,. She saw her PCP again and without any imaging, was diagnosed with pneumonia. She was started on doxycycline. She was told to come back if she was not feeling better. She did have a follow-up today, and states her PCP told her she seemed much worse. She states her coughing is worse and she is noticing subjective fevers and has been having difficulty sleeping due to dyspnea and cough while lying flat. She reports body aches, decreased appetite, productive cough, and worsening leg edema since last week. She states the doxycycline does not seem to be helping. She does have a history of CHF, recurrent pneumonia, and is chronically on 2 L of oxygen at home. The patient also reports a history of lung cancer and a brain bleed/clot in 2017. She states she is currently experience any headache in her right temporal region in the area of the bleed since Tuesday. She was also asked to have this evaluated by her PCP. The patient denies any numbness, tingling, weakness, balance disturbances, dizziness, nausea, vomiting, diarrhea, constipation, abdominal pain, or other concerning symptoms. Related Data Home oxygen amount: 2 liters Home Medications Home Medications Medication Instructions Recorded Confirmed Type Combivent Respimat 1 puff INHALATION Q6H PRN 06/20/18 11/15/18 History Lyrica 200 mg PO BID 06/20/18 11/15/18 History Novolog U-100 Insulin aspart 11 unit SUBCUT QAM 06/20/18 11/15/18 History Novolog U-100 Insulin aspart 18 unit SUBCUT LD 06/20/18 11/15/18 History Novolog U-100 Insulin aspart 26 unit SUBCUT QPM 06/20/18 11/15/18 History Zioptan (PF) 1 drp OPB DAILY 06/20/18 11/15/18 History amiodarone [Pacerone] 100 mg PO BID 06/20/18 11/15/18 History ascorbic acid (vitamin C) [Vitamin 1 g PO DAILY 06/20/18 11/15/18 History C] buspirone 5 mg PO BID 06/20/18 11/15/18 History ergocalciferol (vitamin D2) 50,000 unit PO MONTHLY 06/20/18 11/15/18 History [Vitamin D2] folic acid 800 mcg PO DAILY 06/20/18 11/15/18 History furosemide [Lasix] 40 mg PO Q OTHER DAY 06/20/18 11/15/18 History magnesium oxide [MagOx] 400 mg PO BID 06/20/18 11/15/18 History multivitamin 1 tab PO DAILY 06/20/18 11/15/18 History vitamin B complex 1 tab PO DAILY 06/20/18 11/15/18 History Eliquis 2.5 mg PO BID 07/09/18 11/15/18 History clopidogrel 75 mg PO QAM #30 tab 07/09/18 11/15/18 Rx Lantus Solostar U-100 Insulin 20 unit SUBCUT BID #0 ml 08/15/18 11/15/18 Rx amoxicillin 2,000 mg PO UD 09/14/18 11/15/18 History Allergies Allergy/AdvReac Type Severity Reaction Status Date / Time eptifibatide Allergy Severe ANAPHYLAXIS Verified 11/15/18 14:59 hornet venom Allergy Severe WASP VENOM Verified 11/15/18 14:59 PROTEIN-ANAPHYLAXIS levofloxacin [From Levaquin] Allergy Severe Hives Verified 11/15/18 14:59 mivacurium Allergy Intermediate palpatation Verified 11/15/18 14:59 s atorvastatin Allergy Unknown MUSCLE PAIN Verified 11/15/18 14:59 ezetimibe Allergy Unknown MUSCLE PAIN Verified 11/15/18 14:59 simvastatin Allergy Unknown MUSCLE PAIN Verified 11/15/18 14:59 amlodipine AdvReac Severe Nausea Verified 11/15/18 14:59 warfarin AdvReac Intermediate EXTREME Verified 11/15/18 14:59 BLEEDING TIMES codeine AdvReac Mild VOMITING Verified 11/15/18 14:59 gemfibrozil AdvReac Mild NAUSEA Verified 11/15/18 14:59 meperidine AdvReac Mild VOMITING Verified 11/15/18 14:59 ondansetron AdvReac Mild vomiting Verified 11/15/18 14:59 ranitidine [From Zantac] AdvReac Mild dyspepsia Verified 11/15/18 14:59 cortisone AdvReac Unknown INCREASES Verified 11/15/18 14:59 SUGAR AND VOMITING? hydralazine AdvReac Unknown VOMITING Verified 11/15/18 14:59 ibuprofen AdvReac Unknown VOMITING Verified 11/15/18 14:59 AND DIARRHEA iodine AdvReac Unknown SHELLFISH Verified 11/15/18 14:59 - VOMITING shellfish derived AdvReac Unknown VOMITING Verified 11/15/18 14:59 Sulfa (Sulfonamide AdvReac Unknown VOMITING Verified 11/15/18 14:59 Antibiotics) Past Med/Surg History Medical History JANICE treated with BiPAP Atrial fibrillation CAD (coronary artery disease) Myocardial infarction Peripheral neuropathy (Chronic) Diabetes (Chronic) HTN (hypertension) (Chronic) CKD (chronic kidney disease) stage 3, GFR 30-59 ml/min Diffuse large B-cell lymphoma of extranodal site (~08/2012) Respiratory failure Chronic-on 2-3L O2 at home Surgical History S/P cardiac catheterization S/P hysterectomy S/P tonsillectomy Social History Preferred Language: Maori Communication Ability: Effective Gas Singer Required: No Beliefs That Will Affect Care: None marital status: Current Living Situation: Spouse 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: Retired/Disabled Other Information That Helps Us Care for You: No Feels Safe at Home: Yes Safety Concerns: Feels Safe At This Time Smoking Status: Never smoker Do You Dip or Chew Tobacco: No Second Hand Exposure: No Hx Alcohol Use: No Hx Substance Use: No Review of Systems A total of 10 systems reviewed and were otherwise negative Physical Exam Vital Signs: Vital Signs - 24 hr 11/15/18 11:16 11/15/18 11:17 11/15/18 12:03 Temperature 36.6 C Temperature Source Oral Sepsis Recent Feve r Within 48 Hours Yes Sepsis New/Unexpla ined Change in Men david Status No Sepsis Action Take n by Nursing No Action Required Pulse Rate 101 H Pulse Rate [Apical ] Respiratory Rate 24 Respiratory Effort / Characteristics Respiratory Depth Blood Pressure 126/72 Blood Pressure [Ri ght Arm] Blood Pressure Deborah n 90 Blood Pressure Deborah n [Right Arm] Pulse Oximetry 94 92 94 Oxygen Delivery Me thod Nasal Cannula Nasal Cannula Nasal Cannula Oxygen Flow Rate 2 2 2 11/15/18 13:16 11/15/18 15:00 Temperature Temperature Source Sepsis Recent Feve r Within 48 Hours Sepsis New/Unexpla ined Change in Men david Status Sepsis Action Take n by Nursing Pulse Rate Pulse Rate [Apical ] 112 H 98 H Respiratory Rate 18 24 Respiratory Effort / Characteristics Non-Labored Respiratory Depth Normal Blood Pressure Blood Pressure [Ri ght Arm] 107/84 144/96 H Blood Pressure Deborah n Blood Pressure Deborah n [Right Arm] 91 112 Pulse Oximetry 95 96 Oxygen Delivery Me thod Nasal Cannula Nasal Cannula Oxygen Flow Rate 2 2 Physical Exam: VITALS: Vitals are noted on the nurse's note and reviewed by myself. Vital signs stable. GENERAL: This is a 78-year-old obese white female, dyspneic, but in no acute distress, nondiaphoretic, well-developed well-nourished. SKIN: 3+ pitting edema of the bilateral lower extremities to the knees. The skin was without rashes, erythema, or bruising. There is no tenting of the ski n. Capillary reflex less than 2 seconds. HEAD: Normocephalic atraumatic. EARS: External auditory canals clear, tympanic membranes pearly [place] without erythema or effusion bilaterally. EYES: Pupils equal round and reactive to light and accommodation. Conjunctivae without injection, sclerae without icterus. Extraocular movements intact. NOSE: Patent, turbinates without inflammation or discharge. No sinus tenderness. MOUTH: Mucous membranes moist. Tonsils are not enlarged. Pharynx without erythema or exudate. Uvula midline. Airway patent. Tongue does not deviate. NECK: Supple without nuchal rigidity. No lymphadenopathy. No thyromegaly. Cervical spine is nontender. No JVD. HEART: Regular rate and rhythm without murmurs gallops or rubs. LUNGS: Diffuse wheezing and rhonchi throughout out. No dullness to percussion. No retractions or accessory muscle use. ABDOMEN: Positive bowel sounds x 4. Normal tympanic percussion. Soft, nontender, without masses or organomegaly. Luu sign negative. No guarding or rebound tenderness. MUSCULOSKELETAL: No muscle atrophy, erythema, or edema except as noted. Full range of motion without joint tenderness in all extremities. No tenderness to palpation. Normal gait. Strength 5/5 throughout. NEURO: Patient was alert and oriented to person place and time. Normal sensation to light and sharp touch. Deep tendon reflexes 2+ throughout. No focal neurological deficits. Course The patient was seen and evaluated as above. IV access obtained, labs drawn. Imaging performed and reviewed by myself and radiologist as above. Labs reviewed by myself. I discussed the findings with the patient at bedside. I discussed the case with my attending in the fundraising manager. The patient was given 40 mg IV Lasix. I discussed the case with the [facility] hospitalist, Dr. Hinojosa. She agreed to evaluate the patient for admission. Administered Medications Discontinued Medications Acetaminophen (Tylenol) 650 mg PO NOW STA Stop: 11/15/18 15:43 Last Admin: 11/15/18 15:54 Dose: 650 mg Documented by: [id number] Furosemide (Lasix) 40 mg IV NOW STA Stop: 11/15/18 15:21 Last Admin: 11/15/18 15:54 Dose: 40 mg Documented by: [id number] Medical Decision Making Differential Diagnosis + acute exacerbation of chronic obstructive airways disease, + congestive heart failure, + community acquired pneumonia, + asthma with exacerbation, + pulmonary embolism, + COPD, + bronchitis, + pneumothorax, + pneumonia, + pleural effusion, + CHF, + ACS and + aspiration Medical Records Attestation: I reviewed the patient's medical records. Home Medications Current Medication List: was personally reviewed by me Laboratory Data Attestation: I reviewed the patient's lab results. No leukocytosis, anemia, thrombocytopenia. Creatinine elevated 1.52. This has improved from previous values. Glucose 168. Potassium 4.2, sodium 140. Lipase 207. BNP greater than 3000. Troponin slightly elevated at 0.034. Urinalysis without any evidence of infection. Influenza testing negative. Result diagrams: 11/15/18 12:11/15/18 12: Lab Results 11/15/18 11/15/18 11/15/18 Range/Units 12: 12: 12: WBC 5.21 (4.8-10.8) K/uL RBC 4.02 L (4.2-5.4) M/uL Hgb 11.7 L (12.0-16.0) g/dL Hct 38.1 (37-47) % MCV 94.8 (80-100) fL MCH 29.1 (25-34) pg MCHC 30.7 L (32-36) g/dL RDW Std Deviation 56.7 H (36.4-46.3) fL RDW Coeff of Nhi 16.4 H (11.5-14.5) % Plt Count 90 L (130-400) K/uL MPV 12.8 H (7.4-10.4) fL Immature Gran % (Auto) 0.4 % Neut % (Auto) 73.8 % Lymph % (Auto) 16.7 % Mason % (Auto) 8.1 % Eos % (Auto) 0.8 % Baso % (Auto) 0.2 % Immature Gran # (Auto) 0.02 (0.00-0.02) K/uL Neut # (Auto) 3.85 (1.4-6.5) K/uL Lymph # (Auto) 0.87 L (1.2-3.4) K/uL Mason # (Auto) 0.42 (0.11-0.59) K/uL Eos # (Auto) 0.04 (0-0.5) K/uL Baso # (Auto) 0.01 (0-0.2) K/uL Platelet Estimate Decreased (Normal) RBC Morphology Unremarkable PT 11.0 (9.0-12.0) Seconds INR 1.1 (0.9-1.1) APTT 41.7 H (21.0-31.0) Seconds PTT Ratio 1.5 Sodium 140 (136-145) mmol/L Potassium 4.2 (3.5-5.1) mmol/L Chloride 104 (98-107) mmol/L Carbon Dioxide 34 H (21-32) mmol/L Anion Gap 2.0 L (3-11) BUN 37 H (7-18) mg/dl Creatinine 1.52 H (0.6-1.2) mg/dl Est Cr Clr Drug Dosing 32.2 ml/min Est GFR ( Amer) 37.9 Est GFR (Non-Af Amer) 32.7 BUN/Creatinine Ratio 24.5 H (10-20) Glucose 168 H (70-99) mg/dl Calcium 8.2 L (8.5-10.1) mg/dl Total Bilirubin 0.3 (0.2-1) mg/dl AST 36 (15-37) U/L ALT 31 (12-78) U/L Alkaline Phosphatase 67 (45-117) U/L Troponin I 0.034 (0-0.045) ng/ml NT-Pro-B Natriuret Pep 3083 H (0-1800) pg/ml Total Protein 6.4 (6.4-8.2) gm/dl Albumin 3.0 L (3.4-5.0) gm/dl Globulin 3.4 (2.5-4.0) gm/dl Albumin/Globulin Ratio 0.9 (0.9-2) Lipase 207 (73-393) U/L Urine Color Urine Appearance (Clear) Urine pH (4.5-7.5) Ur Specific [place] (1.000-1.030) Urine Protein (Negative) Urine Glucose (UA) (Negative) Urine Ketones (Negative) Urine Blood (Negative) Urine Nitrite (Negative) Urine Bilirubin (Negative) Urine Urobilinogen (Negative) Ur Leukocyte Esterase (Negative) Urine WBC (Auto) (0-5) /hpf Urine RBC (Auto) (0-4) /hpf U Hyaline Cast (Auto) (0-5) /lpf U Epithel Cells (Auto) (0-5) /lpf Urine Bacteria (Auto) (Negative) Influenza Type A Ag (Neg) Influenza Type B Ag (Neg) 11/15/18 11/15/18 Range/Units 12:20 13:50 WBC (4.8-10.8) K/uL RBC (4.2-5.4) M/uL Hgb (12.0-16.0) g/dL Hct (37-47) % MCV (80-100) fL MCH (25-34) pg MCHC (32-36) g/dL RDW Std Deviation (36.4-46.3) fL RDW Coeff of Nhi (11.5-14.5) % Plt Count (130-400) K/uL MPV (7.4-10.4) fL Immature Gran % (Auto) % Neut % (Auto) % Lymph % (Auto) % Mason % (Auto) % Eos % (Auto) % Baso % (Auto) % Immature Gran # (Auto) (0.00-0.02) K/uL Neut # (Auto) (1.4-6.5) K/uL Lymph # (Auto) (1.2-3.4) K/uL Mason # (Auto) (0.11-0.59) K/uL Eos # (Auto) (0-0.5) K/uL Baso # (Auto) (0-0.2) K/uL Platelet Estimate (Normal) RBC Morphology PT (9.0-12.0) Seconds INR (0.9-1.1) APTT (21.0-31.0) Seconds PTT Ratio Sodium (136-145) mmol/L Potassium (3.5-5.1) mmol/L Chloride (98-107) mmol/L Carbon Dioxide (21-32) mmol/L Anion Gap (3-11) BUN (7-18) mg/dl Creatinine (0.6-1.2) mg/dl Est Cr Clr Drug Dosing ml/min Est GFR ( Amer) Est GFR (Non-Af Amer) BUN/Creatinine Ratio (10-20) Glucose (70-99) mg/dl Calcium (8.5-10.1) mg/dl Total Bilirubin (0.2-1) mg/dl AST (15-37) U/L ALT (12-78) U/L Alkaline Phosphatase (45-117) U/L Troponin I (0-0.045) ng/ml NT-Pro-B Natriuret Pep (0-1800) pg/ml Total Protein (6.4-8.2) gm/dl Albumin (3.4-5.0) gm/dl Globulin (2.5-4.0) gm/dl Albumin/Globulin Ratio (0.9-2) Lipase (73-393) U/L Urine Color Yellow Urine Appearance Clear (Clear) Urine pH 5.0 (4.5-7.5) Ur Specific [place] 1.024 (1.000-1.030) Urine Protein 2+ H (Negative) Urine Glucose (UA) Negative (Negative) Urine Ketones Negative (Negative) Urine Blood Negative (Negative) Urine Nitrite Negative (Negative) Urine Bilirubin Negative (Negative) Urine Urobilinogen Negative (Negative) Ur Leukocyte Esterase Trace H (Negative) Urine WBC (Auto) 1-5 (0-5) /hpf Urine RBC (Auto) 0-4 (0-4) /hpf U Hyaline Cast (Auto) 0 (0-5) /lpf U Epithel Cells (Auto) 10-20 H (0-5) /lpf Urine Bacteria (Auto) Negative (Negative) Influenza Type A Ag Neg for Influ A (Neg) Influenza Type B Ag Neg for Influ B (Neg) Imaging Data Radiologist's Impression: CT head/brain wo con CLINICAL HISTORY: 78 years-old Female with headache. Acute headache with history of prior craniotomy TECHNIQUE: Multiple axial CT images of the head were obtained without contrast. A dose lowering technique was utilized adhering to the principles of ALARA. CT DOSE: 638.56 mGycm COMPARISON: Head CT 01/20/2018. FINDINGS: Hyperattenuating extra-axial area about the subdural distribution adjacent to the right frontal convexity is unchanged measuring up to 3 mm, likely postsurgical and unchanged. Postoperative changes from prior right parietal craniotomy. Age-related involutional changes. Ill-defined white matter hypodensities suggest chronic microvascular ischemic changes. Senescent calcifications of the lentiform nuclei. No acute intracranial hemorrhage, midline shift, new abnormal extra-axial collections, intracranial mass or territorial infarct. Cerebral vascular calcifications are noted. Mild mucosal thickening of the maxillary, ethmoid and sphenoid sinuses. Mastoid air cells and middle ear cavities are clear. Secretions are seen about the nasopharynx. The soft tissues and orbits are unremarkable. Prior bilateral cataract repair. IMPRESSION: Chronic findings as above without acute intracranial abnormality. The above report was generated using voice recognition software. It may contain grammatical, syntax or spelling errors. Electronically signed by: Dipak Tapia M.D. 11/15/2018 1:47 PM XR chest 2V routine CLINICAL HISTORY: cough COMPARISON STUDY: No previous studies for comparison. FINDINGS: The heart remains enlarged. There is a left-sided A-Port catheter. There is persistent but improving congestive failure/fluid overload. There is no lobar consolidation. Trace pleural effusions are suspected. Increased left basilar markings are likely atelectatic.[ IMPRESSION: Cardiomegaly and persistent but improving congestive failure/fluid overload. Electronically signed by: Olaf Muir M.D. 11/15/2018 2:42 PM ECG Data Attestation: I personally reviewed and interpreted this ECG as follows: Prior ECG tracings: available for review Interpretation: Atrial fibrillation with RVR, ventricular rate of 110 bpm. Rightward axis. T wave inversion in lateral leads, less evident than EKG 09/15/18. Blood Pressure Blood Pressure Findings: Normal blood pressure Blood Pressure Disposition: further management by hospitalist Head Trauma GCS Score: 15 MDM Narrative This 78-year-old female patient presents emergency department today complaining of cough, congestion, edema, and subjective fever. The patient has been on outpatient doxycycline without improvement of her symptoms. She was diagnosed with pneumonia, but no imaging was performed. She also complains of worsening bilateral lower extremity edema for which her Lasix was increased to 80 mg twice daily. The patient states the edema seems to be worsening and she has had approximately 10 pound weight gain over the past "few days". The patient is e xperiencing orthopnea. Her symptoms are consistent with heart failure. There is no fever while here in the emergency department. X-ray and laboratory evaluation are consistent with CHF. I suspect this is an acute on chronic CHF exacerbation, and recommended the patient be admitted for diuresis and further management of her symptoms. The patient was agreeable. She was given IV Lasix while here in the department and will be further evaluated and managed by the hospitalist. The chart was completed utilizing [employer] voice recognition software. Grammatical errors, random word insertions, pronoun errors, and incomplete sentences are an occasional consequence of this system due to software limitations, ambient noise, and hardware issues. Any formal questions or concerns about the content, text, or information contained within the body of this dictation should be directly addressed to the provider for clarification. Impression & Plan Acute on chronic diastolic heart failure Discharge Plan Visit Data Chief Complaint: Shortness of Breath/Dyspnea Stated Complaint: PNEUMONIA ED Provider: Gerry Barbosa ED Midlevel Provider: Purvi Niño Discharge Problem: Acute on chronic diastolic heart failure Patient Disposition: Admitted As Inpatient Condition: Good Forms Stand Alone Forms: [facility] goTenna Prescriptions Prescriptions: No Action multivitamin Tablet 1 tab PO DAILY RF: 0 buspirone 5 mg tablet 5 mg PO BID RF: 0 amiodarone [Pacerone] 200 mg tablet 100 mg PO BID RF: 0 folic acid 400 mcg Tablet 800 mcg PO DAILY RF: 0 vitamin B complex Tablet 1 tab PO DAILY RF: 0 Lyrica 200 mg capsule 200 mg PO BID RF: 0 Combivent Respimat 20-100 mcg/actuation Mist 1 puff INHALATION Q6H PRN (Reason: Shortness Of Breath Or Wheezing) RF: 0 furosemide [Lasix] 40 mg tablet 40 mg PO Q OTHER DAY RF: 0 ascorbic acid (vitamin C) [Vitamin C] 1,000 mg Tablet 1 g PO DAILY RF: 0 magnesium oxide [MagOx] 400 mg (241.3 mg magnesium) tablet 400 mg PO BID RF: 0 Novolog U-100 Insulin aspart 100 unit/mL Solution 18 unit SUBCUT LD RF: 0 Novolog U-100 Insulin aspart 100 unit/mL Solution 26 unit SUBCUT QPM RF: 0 Novolog U-100 Insulin aspart 100 unit/mL Solution 11 unit SUBCUT QAM RF: 0 ergocalciferol (vitamin D2) [Vitamin D2] 50,000 unit Capsule 50,000 unit PO MONTHLY RF: 0 Zioptan (PF) 0.0015 % dropperette 1 drp OPB DAILY RF: 0 Lantus Solostar U-100 Insulin 100 unit/mL (3 mL) insulin pen 20 unit subcut BID Qty: 0 RF: 0 amoxicillin 500 mg Tablet 2,000 mg PO UD RF: 0 Eliquis 2.5 mg Tablet 2.5 mg PO BID RF: 0 clopidogrel 75 mg Tablet 75 mg PO QAM Qty: 30 RF: 0 Referrals Referrals: Lizet Jeter DO [Primary Care Provider] -
--- NOTE | 2018-11-15 17:32 | History & Physical Report ---
Date of Service November 15, 2018 Assessment & Plan (1) Acute on chronic diastolic heart failure: Patient with progressive BARAHONA/SOB, edema, orthopnea and weight gain. Appears to be volume overloaded on clinical exam. She has history of diastolic CHF. Echo performed on 25 April 2017 with normal LV size and function with EF of 60-65%. No WMA, severe LVH. No diastolic dysfunction noted on echo at that time. ?Acute exacerbation of CHF. Patient mildly dyspneic, adequate oxygenation on NC. Afebrile, no leukocytosis, no infiltrate noted on CXR. +Wheezing as well. -Admit to medical floor with telemetry monitoring -Check procalcitonin -Lasix 60mg IV BID -Daily weights, strict I/Os, Na restriction -BID BMP to monitor electrolytes and renal function -Check 2D echocardiogram (2) Paroxysmal A-fib: Patient mildly tachycardic at 110 bpm. -Continue Amiodarone 100mg po BID -Continue Carvedilol BID -Continue Eliquis daily -Telemetry monitoring Present on Admission?: Yes (3) Chest pressure: Patient with known CAD, complaining of mild substernal chest pressure since today. She has chronic changes on EKG, does not appear to be any acute ischemic changes. Troponin is detectable but near prior studies. -Telemetry monitoring -Repeat troponin to assess trend -2D echo as above -Continue Plavix. Patient is statin intolerant Present on Admission?: Yes (4) Anxiety: Patient with history of anxiety. Well controlled -Continue Buspirone 5mg po BID Present on Admission?: Yes (5) JANICE treated with BiPAP: Treat suspected CHF as above -BiPAP qHS, patient's plans to return home to bring her BiPAP in Present on Admission?: Yes (6) CAD (coronary artery disease): CP as above -EKG monitoring -Repeat troponin -Continue Plavix (7) Diabetes: Patient reports adequate blood sugar control AIC=6.8 on 09/15/18 -Continue home insulin regimen -Fingersticks -CC diet as tolerated Present on Admission?: Yes (8) HTN (hypertension): Blood pressure mildly elevated at present, 138/103 -Continue Amlodipine. -Continue Carvedilol Present on Admission?: Yes (9) Diarrhea: In setting of recent antibiotic use -Check C.diff F/E/N - diuresis as above. Monitor electrolytes and replete as needed. Continue PO Mag supplement. CC/Low Na diet as tolerated Ppx - anticoagulation with Eliquis Code -Full Dispo - Med tele History of Present Illness Chief Complaint: SOB, edema, weight gain Primary Care Provider: Lizet Jeter DO Maureen Hagen is a 78yo C female with multiple medical problems to include history of CAD s/p NM with cardiac stent, AF on anticoagulation, DM, CKD III, and JANICE on home BiPAP qHS. Patient was seen by her PCP 5 days ago and was noted to have increase in bilateral LE edema and weight gain. Lasix was increased to 80mg PO BID at that time. Patient reports compliance with the increased Lasix dosing but does not feel improved. States that she has been having progressively worsening productive cough, BARAHONA and SOB, orthopnea, and weight gain x 4 days. Reports 9# weight gain over the last week. Additionally she reports SSCP that started today - occurs frequently in times of stress. Palpitations and tachycardia over the last month. Nausea and diarrhea, 5 episodes/day over the last few days. ER Course: Tylenol, Lasix 40mg IV Allergies Allergy/AdvReac Type Severity Reaction Status Date / Time eptifibatide Allergy Severe ANAPHYLAXIS Verified 11/15/18 14:59 hornet venom Allergy Severe WASP VENOM Verified 11/15/18 14:59 PROTEIN-ANAPHYLAXIS levofloxacin [From Levaquin] Allergy Severe Hives Verified 11/15/18 14:59 mivacurium Allergy Intermediate palpatation Verified 11/15/18 14:59 s atorvastatin Allergy Unknown MUSCLE PAIN Verified 11/15/18 14:59 ezetimibe Allergy Unknown MUSCLE PAIN Verified 11/15/18 14:59 simvastatin Allergy Unknown MUSCLE PAIN Verified 11/15/18 14:59 amlodipine AdvReac Severe Nausea Verified 11/15/18 14:59 warfarin AdvReac Intermediate EXTREME Verified 11/15/18 14:59 BLEEDING TIMES codeine AdvReac Mild VOMITING Verified 11/15/18 14:59 gemfibrozil AdvReac Mild NAUSEA Verified 11/15/18 14:59 meperidine AdvReac Mild VOMITING Verified 11/15/18 14:59 ondansetron AdvReac Mild vomiting Verified 11/15/18 14:59 ranitidine [From Zantac] AdvReac Mild dyspepsia Verified 04/24/19 14:59 cortisone AdvReac Unknown INCREASES Verified 11/15/18 14:59 SUGAR AND VOMITING? hydralazine AdvReac Unknown VOMITING Verified 11/15/18 14:59 ibuprofen AdvReac Unknown VOMITING Verified 11/15/18 14:59 AND DIARRHEA iodine AdvReac Unknown SHELLFISH Verified 11/15/18 14:59 - VOMITING shellfish derived AdvReac Unknown VOMITING Verified 11/15/18 14:59 Sulfa (Sulfonamide AdvReac Unknown VOMITING Verified 11/15/18 14:59 Antibiotics) Home Medications Home Medications Medication Instructions Recorded Confirmed Type Combivent Respimat 1 puff INHALATION Q6H PRN 06/20/18 11/15/18 History Lyrica 200 mg PO BID 06/20/18 11/15/18 History Novolog U-100 Insulin aspart 11 unit SUBCUT QAM 06/20/18 11/15/18 History Novolog U-100 Insulin aspart 18 unit SUBCUT LD 06/20/18 11/15/18 History Novolog U-100 Insulin aspart 26 unit SUBCUT QPM 06/20/18 11/15/18 History Zioptan (PF) 1 drp OPB DAILY 06/20/18 11/15/18 History amiodarone [Pacerone] 100 mg PO BID 06/20/18 11/15/18 History ascorbic acid (vitamin C) [Vitamin 1 g PO DAILY 06/20/18 11/15/18 History C] buspirone 5 mg PO BID 06/20/18 11/15/18 History ergocalciferol (vitamin D2) 50,000 unit PO MONTHLY 06/20/18 11/15/18 History [Vitamin D2] folic acid 800 mcg PO DAILY 06/20/18 11/15/18 History furosemide [Lasix] 40 mg PO Q OTHER DAY 06/20/18 11/15/18 History magnesium oxide [MagOx] 400 mg PO BID 06/20/18 11/15/18 History multivitamin 1 tab PO DAILY 06/20/18 11/15/18 History vitamin B complex 1 tab PO DAILY 06/20/18 11/15/18 History Eliquis 2.5 mg PO BID 07/09/18 11/15/18 History clopidogrel 75 mg PO QAM #30 tab 07/09/18 11/15/18 Rx Lantus Solostar U-100 Insulin 20 unit SUBCUT BID #0 ml 08/15/18 11/15/18 Rx amoxicillin 2,000 mg PO UD 09/14/18 11/15/18 History carvedilol 6.25 mg PO BID 11/15/18 11/15/18 History Past Med/Surg History Medical History JANICE treated with BiPAP Atrial fibrillation CAD (coronary artery disease) Myocardial infarction Peripheral neuropathy (Chronic) Diabetes (Chronic) HTN (hypertension) (Chronic) Diastolic CHF Dyslipidemia Hypertrophic cardiomyopathy apical variant CKD (chronic kidney disease) stage 3, GFR 30-59 ml/min Diffuse large B-cell lymphoma of extranodal site (~08/2012) Respiratory failure Chronic-on 2-3L O2 at home Surgical History S/P cardiac catheterization S/P hysterectomy S/P tonsillectomy Social History Preferred Language: Lithuanian Communication Ability: Effective Bryologist Required: No Beliefs That Will Affect Care: None marital status: Current Living Situation: Spouse 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: Retired/Disabled Other Information That Helps Us Care for You: No Feels Safe at Home: Yes Safety Concerns: Feels Safe At This Time Smoking Status: Never smoker Do You Dip or Chew Tobacco: No Second Hand Exposure: No Hx Alcohol Use: No Hx Substance Use: No Review of Systems Review of Systems: All systems reviewed & are unremarkable except as noted in HPI & below +Subjective fevers/chills Physical Exam Physical Exam: General: patient sitting at edge of the bed, chronically ill in appearance, NAD, AA&O x 4, mild conversational dyspnea Skin: warm, dry, intact, no rashes or lesions HEENT: NC/AT, PERRL, EOMI, anicteric sclera, conjunctiva without injection, external ear normal to inspection and nontender, nares patent, moist mucus membranes, dentition intact, no oropharyngeal lesions, neck supple, trachea midline, no LAD, no thyromegaly, + JVD to angle of the jaw bilaterally Heart: +S1/S2, distant heart sounds, irregularly irregular, no m/r/g Lungs: equal air entry bilaterally, diffuse expiratory wheezing throughout, +rales to mid-lung field bilaterally, mildly diminished in right base Abd: +BS, soft, NT/ND, no masses/organomegaly/ascites Ext: warm, 2+ pulses in UE/LE bilaterally, no clubbing/cyanosis, 2+ pitting edema to knees bilaterally Neuro: nonfocal, patient AA&O x 4, speech intact, no facial droop, moving all extremities on command with equal strength 5/5 Results & Data Vital Signs (Past 12 Hours) Vital Signs Temp Pulse Pulse Resp BP BP Pulse Ox 11/15/18 17:00 99 H 18 138/103 H 94 11/15/18 15:00 98 H 24 144/96 H 96 11/15/18 13:16 112 H 18 107/84 95 11/15/18 12:03 94 11/15/18 11:17 36.6 C 101 H 24 126/72 92 11/15/18 11:16 94 Laboratory Results Lab Results 11/15/18 11/15/18 11/15/18 Range/Units 12:19 12:19 12:19 WBC 5.21 (4.8-10.8) K/uL RBC 4.02 L (4.2-5.4) M/uL Hgb 11.7 L (12.0-16.0) g/dL Hct 38.1 (37-47) % MCV 94.8 (80-100) fL MCH 29.1 (25-34) pg MCHC 30.7 L (32-36) g/dL RDW Std Deviation 56.7 H (36.4-46.3) fL RDW Coeff of Nhi 16.4 H (11.5-14.5) % Plt Count 90 L (130-400) K/uL MPV 12.8 H (7.4-10.4) fL Immature Gran % (Auto) 0.4 % Neut % (Auto) 73.8 % Lymph % (Auto) 16.7 % [place] % (Auto) 8.1 % Eos % (Auto) 0.8 % Baso % (Auto) 0.2 % Immature Gran # (Auto) 0.02 (0.00-0.02) K/uL Neut # (Auto) 3.85 (1.4-6.5) K/uL Lymph # (Auto) 0.87 L (1.2-3.4) K/uL [place] # (Auto) 0.42 (0.11-0.59) K/uL Eos # (Auto) 0.04 (0-0.5) K/uL Baso # (Auto) 0.01 (0-0.2) K/uL Platelet Estimate Decreased (Normal) RBC Morphology Unremarkable PT 11.0 (9.0-12.0) Seconds INR 1.1 (0.9-1.1) APTT 41.7 H (21.0-31.0) Seconds PTT Ratio 1.5 Sodium 140 (136-145) mmol/L Potassium 4.2 (3.5-5.1) mmol/L Chloride 104 (98-107) mmol/L Carbon Dioxide 34 H (21-32) mmol/L Anion Gap 2.0 L (3-11) BUN 37 H (7-18) mg/dl Creatinine 1.52 H (0.6-1.2) mg/dl Est Cr Clr Drug Dosing 32.2 ml/min Est GFR ( Amer) 37.9 Est GFR (Non-Af Amer) 32.7 BUN/Creatinine Ratio 24.5 H (10-20) Glucose 168 H (70-99) mg/dl Calcium 8.2 L (8.5-10.1) mg/dl Total Bilirubin 0.3 (0.2-1) mg/dl AST 36 (15-37) U/L ALT 31 (12-78) U/L Alkaline Phosphatase 67 (45-117) U/L Troponin I 0.034 (0-0.045) ng/ml NT-Pro-B Natriuret Pep 3083 H (0-1800) pg/ml Total Protein 6.4 (6.4-8.2) gm/dl Albumin 3.0 L (3.4-5.0) gm/dl Globulin 3.4 (2.5-4.0) gm/dl Albumin/Globulin Ratio 0.9 (0.9-2) Lipase 207 (73-393) U/L Urine Color Urine Appearance (Clear) Urine pH (4.5-7.5) Ur Specific Geraldine (1.000-1.030) Urine Protein (Negative) Urine Glucose (UA) (Negative) Urine Ketones (Negative) Urine Blood (Negative) Urine Nitrite (Negative) Urine Bilirubin (Negative) Urine Urobilinogen (Negative) Ur Leukocyte Esterase (Negative) Urine WBC (Auto) (0-5) /hpf Urine RBC (Auto) (0-4) /hpf U Hyaline Cast (Auto) (0-5) /lpf U Epithel Cells (Auto) (0-5) /lpf Urine Bacteria (Auto) (Negative) Influenza Type A Ag (Neg) Influenza Type B Ag (Neg) 11/15/18 11/15/18 Range/Units 12:20 13:50 WBC (4.8-10.8) K/uL RBC (4.2-5.4) M/uL Hgb (12.0-16.0) g/dL Hct (37-47) % MCV (80-100) fL MCH (25-34) pg MCHC (32-36) g/dL RDW Std Deviation (36.4-46.3) fL RDW Coeff of Nhi (11.5-14.5) % Plt Count (130-400) K/uL MPV (7.4-10.4) fL Immature Gran % (Auto) % Neut % (Auto) % Lymph % (Auto) % [place] % (Auto) % Eos % (Auto) % Baso % (Auto) % Immature Gran # (Auto) (0.00-0.02) K/uL Neut # (Auto) (1.4-6.5) K/uL Lymph # (Auto) (1.2-3.4) K/uL [place] # (Auto) (0.11-0.59) K/uL Eos # (Auto) (0-0.5) K/uL Baso # (Auto) (0-0.2) K/uL Platelet Estimate (Normal) RBC Morphology PT (9.0-12.0) Seconds INR (0.9-1.1) APTT (21.0-31.0) Seconds PTT Ratio Sodium (136-145) mmol/L Potassium (3.5-5.1) mmol/L Chloride (98-107) mmol/L Carbon Dioxide (21-32) mmol/L Anion Gap (3-11) BUN (7-18) mg/dl Creatinine (0.6-1.2) mg/dl Est Cr Clr Drug Dosing ml/min Est GFR ( Amer) Est GFR (Non-Af Amer) BUN/Creatinine Ratio (10-20) Glucose (70-99) mg/dl Calcium (8.5-10.1) mg/dl Total Bilirubin (0.2-1) mg/dl AST (15-37) U/L ALT (12-78) U/L Alkaline Phosphatase (45-117) U/L Troponin I (0-0.045) ng/ml NT-Pro-B Natriuret Pep (0-1800) pg/ml Total Protein (6.4-8.2) gm/dl Albumin (3.4-5.0) gm/dl Globulin (2.5-4.0) gm/dl Albumin/Globulin Ratio (0.9-2) Lipase (73-393) U/L Urine Color Yellow Urine Appearance Clear (Clear) Urine pH 5.0 (4.5-7.5) Ur Specific Geraldine 1.024 (1.000-1.030) Urine Protein 2+ H (Negative) Urine Glucose (UA) Negative (Negative) Urine Ketones Negative (Negative) Urine Blood Negative (Negative) Urine Nitrite Negative (Negative) Urine Bilirubin Negative (Negative) Urine Urobilinogen Negative (Negative) Ur Leukocyte Esterase Trace H (Negative) Urine WBC (Auto) 1-5 (0-5) /hpf Urine RBC (Auto) 0-4 (0-4) /hpf U Hyaline Cast (Auto) 0 (0-5) /lpf U Epithel Cells (Auto) 10-20 H (0-5) /lpf Urine Bacteria (Auto) Negative (Negative) Influenza Type A Ag Neg for Influ A (Neg) Influenza Type B Ag Neg for Influ B (Neg) Diagnostic Findings CT head/brain wo con CLINICAL HISTORY: 78 years-old Female with headache. Acute headache with history of prior craniotomy TECHNIQUE: Multiple axial CT images of the head were obtained without contrast. A dose lowering technique was utilized adhering to the principles of ALARA. CT DOSE: 638.56 mGycm COMPARISON: Head CT 01/20/2018. FINDINGS: Hyperattenuating extra-axial area about the subdural distribution adjacent to the right frontal convexity is unchanged measuring up to 3 mm, likely post surgical and unchanged. Postoperative changes from prior right parietal craniotomy. Age-related involutional changes. Ill-defined white matter hypodensities suggest chronic microvascular ischemic changes. Senescent calcifications of the lentiform nuclei. No acute intracranial hemorrhage, midline shift, new abnormal extra-axial collections, intracranial mass or territorial infarct. Cerebral vascular calcifications are noted. Mild mucosal thickening of the maxillary, ethmoid and sphenoid sinuses. Mastoid air cells and middle ear cavities are clear. Secretions are seen about the nasopharynx. The soft tissues and orbits are unremarkable. Prior bilateral cataract repair. IMPRESSION: Chronic findings as above without acute intracranial abnormality. The above report was generated using voice recognition software. It may contain grammatical, syntax or spelling errors. Electronically signed by: Dipak Tapia M.D. 11/15/2018 1:47 PM Dictated: 11/15/18 1343 Transcribed: 11/15/18 134 XR chest 2V routine CLINICAL HISTORY: cough COMPARISON STUDY: No previous studies for comparison. FINDINGS: The heart remains enlarged. There is a left-sided A-Port catheter. There is persistent but improving congestive failure/fluid overload. There is no lobar consolidation. Trace pleural effusions are suspected. Increased left basilar markings are likely atelectatic.[ IMPRESSION: Cardiomegaly and persistent but improving congestive failure/fluid overload. Electronically signed by: Olaf Muir M.D. 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 transplanted heart: [place] heart Qualified Code(s): I25.10 - Atherosclerotic heart disease of [place] coronary artery without angina pectoris (3) HTN (hypertension) Hypertension type: essential hypertension Qualified Code(s): I10 - Essential (primary) hypertension
[2018-11-15] MEDS ORDERED: GLUCOSE 40% GEL 15 GM TUBE PO PRN (19:06)
[2018-11-15] MEDS ORDERED: ALBUTEROL 0.5% NEB SOLN 2.5 MG/0.5 ML VIAL NEB PRN (19:06)
[2018-11-15] MEDS ORDERED: CARBOHYDRATES FOR HYPOGLYCEMIA PO PRN (19:06)
[2018-11-15] MEDS ORDERED: GLUCAGON FOR INJ 1 MG VIAL SQ PRN (19:06)
[2018-11-15] MEDS ORDERED: ONDANSETRON INJ 2 MG/ML 2 ML VIAL IV PRN (19:06)
[2018-11-15] MEDS ORDERED: ACETAMINOPHEN 325 MG TAB PO PRN (19:06)
[2018-11-15] MEDS ORDERED: GLUCOSE 10 TABS/TUBE PO PRN (19:06)
[2018-11-15] MEDS ORDERED: DEXTROSE 50% 50 ML SYRINGE IV PRN (19:06)
[2018-11-15] MEDS ORDERED: INSULIN ASPART SQ SCH ×2 (19:06→21:00)
[2018-11-15] MEDS: ALBUT/IPRATROP 3MG/0.5MG NEB 3 ML VIAL NEB SCH ×2 (19:35→23:08)
[2018-11-15 21:19] LABS: BUN Creatinine Ratio 24.4 (10-20); Calcium 8.4 mg/dl (8.5-10.1); Creatinine Clr Calc Pharmacy 30.9 ml/min; Est GFR (African American) 36.2; Est GFR (Non-African American) 31.2; Magnesium 1.6 mg/dl (1.8-2.4); Potassium 4.1 mmol/L (3.5-5.1)
[2018-11-15 21:24] LABS: Phosphorus 3.3 mg/dl (2.5-4.9); Troponin I 0.044 ng/ml (0-0.045)
[2018-11-15] MEDS: AMIODARONE 200 MG TAB PO SCH (21:50)
[2018-11-15] MEDS: APIXABAN 2.5 MG TAB PO SCH (21:50)
[2018-11-15] MEDS: FUROSEMIDE 60 MG in SYRINGE 0 ML IV SCH (21:51)
[2018-11-15] MEDS: MAGNESIUM OXIDE 400 MG TAB PO SCH (21:51)
[2018-11-15] MEDS: INSULIN ASPART 100 UNITS/ML 3 ML PEN SC SCH (21:52)
[2018-11-15] MEDS: INSULIN GLARGINE SOLOSTAR 100 UNITS/ML 3 ML PEN SQ SCH (21:53)
[2018-11-15] MEDS: guaiFENesin SUGAR FREE 100 MG/5 ML UDC PO PRN (21:54)
[2018-11-15] MEDS: CARVEDILOL 6.25 MG TAB PO SCH (22:02)
[2018-11-15] MEDS: PREGABALIN 100 MG CAP PO SCH (22:03)
[2018-11-16] MEDS: ALBUT/IPRATROP 3MG/0.5MG NEB 3 ML VIAL NEB SCH ×6 (03:29→23:14)
[2018-11-16] MEDS: INSULIN ASPART 100 UNITS/ML 3 ML PEN SC SCH ×4 (08:12→21:15)
[2018-11-16] MEDS: FUROSEMIDE 60 MG in SYRINGE 0 ML IV SCH ×2 (08:12→21:18)
[2018-11-16] MEDS: INSULIN GLARGINE SOLOSTAR 100 UNITS/ML 3 ML PEN SQ SCH ×2 (08:12→21:12)
[2018-11-16] MEDS: PREGABALIN 100 MG CAP PO SCH ×2 (08:12→21:18)
[2018-11-16] MEDS: AMIODARONE 200 MG TAB PO SCH ×2 (08:13→21:21)
[2018-11-16] MEDS: MAGNESIUM OXIDE 400 MG TAB PO SCH ×2 (08:13→21:22)
[2018-11-16] MEDS: APIXABAN 2.5 MG TAB PO SCH ×2 (08:13→21:22)
[2018-11-16] MEDS: guaiFENesin SUGAR FREE 100 MG/5 ML UDC PO PRN (08:13)
[2018-11-16] MEDS: FOLIC ACID 400 MCG TAB PO SCH (08:13)
[2018-11-16] MEDS: CLOPIDOGREL BISULFATE 75 MG TAB PO SCH (08:13)
[2018-11-16] MEDS: VITAMIN B COMPLEX TAB PO SCH (08:13)
[2018-11-16] MEDS: CARVEDILOL 6.25 MG TAB PO SCH ×2 (08:14→21:20)
[2018-11-16] MEDS ORDERED: INSULIN ASPART SQ SCH (09:00)
[2018-11-16 09:28] LABS: Hematocrit (blood only) 38.6 % (37-47); Hemoglobin 12.1 g/dL (12.0-16.0); Mean Corpuscular Hgb Conc 31.3 g/dL (32-36); Mean Corpuscular Volume 94.4 fL (80-100); Mean Platelet Volume 12.3 fL (7.4-10.4); Nucleated RBC # (auto) 0.02 K/uL (0-0); Nucleated RBC % (auto) 0.3 %; Platelet Count 98 K/uL (130-400); RDW Coefficient of Variation 16.4 % (11.5-14.5); RDW Standard Deviation 56.6 fL (36.4-46.3); Red Blood Count 4.09 M/uL (4.2-5.4); White Blood Count 5.98 K/uL (4.8-10.8)
[2018-11-16 09:29] LABS: BUN Creatinine Ratio 25.4 (10-20); Calcium 8.5 mg/dl (8.5-10.1); Est GFR (African American) 35.7; Est GFR (Non-African American) 30.8; Potassium 4.1 mmol/L (3.5-5.1)
[2018-11-16 09:33] LABS: Basophils # (auto) 0.01 K/uL (0-0.2); Basophils % (auto) 0.2 %; Eosinophils # (auto) 0.04 K/uL (0-0.5); Eosinophils % (auto) 0.7 %; Giant Platelets 1+; Immature Granulocytes # (auto) 0.03 K/uL (0.00-0.02); Immature Granulocytes % (auto) 0.5 %; Lymphocytes # (auto) 0.63 K/uL (1.2-3.4); Lymphocytes % (auto) 10.5 %; Monocytes # (auto) 0.36 K/uL (0.11-0.59); Neutrophils # (auto) 4.91 K/uL (1.4-6.5); Neutrophils % (auto) 82.1 %; Platelet Estimate Decreased (Normal)
--- NOTE | 2018-11-16 10:59 | Cardiology Consultation ---
Date of Consultation November 16, 2018 Assessment & Plan (1) Acute on chronic diastolic heart failure: 2. Multivessel CAD 3. Persistent AF 4. CKD 5. Type 2 DM 6. HTN 7. Prior subdural hematoma post craniotomy 2016 8. JANICE Admitted with progressive acute on chronic diastolic heart failure refractory to escalating outpatient diuretics. Questionably precipitated by preceding respiratory illness. Has been in persistent AF for months, rate control adequate. No evidence of coronary ischemia. Biventricular, valvular function unchanged. Patient responding appropriately to IV diuretics. Renal function stable. Residual congestion. Recommendations: -- Continue current BID IV lasix -- continue current carvedilol. rate control has been adequate - if HR>110s could consider increasing beta-suraj -- for now will continue amiodarone despite unsuccessful rhythm control (steve felt worse off med, will reconsider as an outpatient). -- continue current eliquis 2.5 bid with renal function/ICH history -- continue clopidogrel, 4 months out from most recent stents. Will continue to follow. History of Present Illness Attending Physician: Catarina Farrell MD History of Present Illness Mrs. Hagen is a 78 year old woman well known to me from the outpatient setting with a history multivessel CAD post PCI with DESx2 to RCA 06/11, persistent atrial fibrillation on anticoagulation/amiodarone, chronic diastolic heart failure, CKD, insulin dependent diabetes and prior subdural hematoma requiring craniotomy on 11/2016 readmitted yestereday with acute heart failure. Patient was last seen by me on 11/10/2018 at which time she presented acutely, feeling poorly with increased fatigue, LE edema, and exertional dyspnea, weight up 9lbs. Lasix increased to 40mg BID with plan for repeat follow-up early this week. Later seen by PCP who increased lasix to 80mg BID. Minimal change in urine output with change with increased diuretics and endorsed continued worsen ing of dyspnea/orthopnea,additional weight gain prompting presentation to ED. Symptoms also accompanied by increased productive cough, wheezing questionable fever/chills for which states was on antibiotics at some point. Also with some recurrent chest pain, different than prior cardiac chest pain. In ED persistent congestion on xray, BNP in 3000s, troponin negative, ECG with AF with RVR in 100s but without ST changes. Started on IV diuretics (40 in ED, 60 on floor). Negative 1200 thus far. Allergies Allergy/AdvReac Type Severity Reaction Status Date / Time eptifibatide Allergy Severe ANAPHYLAXIS Verified 11/15/18 14:59 hornet venom Allergy Severe WASP VENOM Verified 11/15/18 14:59 PROTEIN-ANAPHYLAXIS levofloxacin [From Levaquin] Allergy Severe Hives Verified 11/15/18 14:59 mivacurium Allergy Intermediate palpatation Verified 11/15/18 14:59 s atorvastatin Allergy Unknown MUSCLE PAIN Verified 11/15/18 14:59 ezetimibe Allergy Unknown MUSCLE PAIN Verified 11/15/18 14:59 simvastatin Allergy Unknown MUSCLE PAIN Verified 11/15/18 14:59 amlodipine AdvReac Severe Nausea Verified 11/15/18 14:59 warfarin AdvReac Intermediate EXTREME Verified 11/15/18 14:59 BLEEDING TIMES codeine AdvReac Mild VOMITING Verified 11/15/18 14:59 gemfibrozil AdvReac Mild NAUSEA Verified 11/15/18 14:59 meperidine AdvReac Mild VOMITING Verified 11/15/18 14:59 ondansetron AdvReac Mild vomiting Verified 11/15/18 14:59 ranitidine [From Zantac] AdvReac Mild dyspepsia Verified 11/15/18 14:59 cortisone AdvReac Unknown INCREASES Verified 11/15/18 14:59 SUGAR AND VOMITING? hydralazine AdvReac Unknown VOMITING Verified 11/15/18 14:59 ibuprofen AdvReac Unknown VOMITING Verified 11/15/18 14:59 AND DIARRHEA iodine AdvReac Unknown SHELLFISH Verified 11/15/18 14:59 - VOMITING shellfish derived AdvReac Unknown VOMITING Verified 11/15/18 14:59 Sulfa (Sulfonamide AdvReac Unknown VOMITING Verified 11/15/18 14:59 Antibiotics) Home Medications Home Medications Medication Instructions Recorded Confirmed Type Combivent Respimat 1 puff INHALATION Q6H PRN 06/20/18 11/15/18 History Lyrica 200 mg PO BID 06/20/18 11/15/18 History Novolog U-100 Insulin aspart 11 unit SUBCUT QAM 06/20/18 11/15/18 History Novolog U-100 Insulin aspart 18 unit SUBCUT LD 06/20/18 11/15/18 History Novolog U-100 Insulin aspart 26 unit SUBCUT QPM 06/20/18 11/15/18 History Zioptan (PF) 1 drp OPB DAILY 06/20/18 11/15/18 History amiodarone [Pacerone] 100 mg PO BID 06/20/18 11/15/18 History ascorbic acid (vitamin C) [Vitamin 1 g PO DAILY 06/20/18 11/15/18 History C] buspirone 5 mg PO BID 06/20/18 11/15/18 History ergocalciferol (vitamin D2) 50,000 unit PO MONTHLY 06/20/18 11/15/18 History [Vitamin D2] folic acid 800 mcg PO DAILY 06/20/18 11/15/18 History furosemide [Lasix] 40 mg PO Q OTHER DAY 06/20/18 11/15/18 History magnesium oxide [MagOx] 400 mg PO BID 06/20/18 11/15/18 History multivitamin 1 tab PO DAILY 06/20/18 11/15/18 History vitamin B complex 1 tab PO DAILY 06/20/18 11/15/18 History Eliquis 2.5 mg PO BID 07/09/18 11/15/18 History clopidogrel 75 mg PO QAM #30 tab 07/09/18 11/15/18 Rx Lantus Solostar U-100 Insulin 20 unit SUBCUT BID #0 ml 08/15/18 11/15/18 Rx amoxicillin 2,000 mg PO UD 09/14/18 11/15/18 History carvedilol 6.25 mg PO BID 11/15/18 11/15/18 History Patient History Medical History JANICE treated with BiPAP Atrial fibrillation CAD (coronary artery disease) Myocardial infarction Peripheral neuropathy (Chronic) Diabetes (Chronic) HTN (hypertension) (Chronic) Diastolic CHF Dyslipidemia Hypertrophic cardiomyopathy apical variant CKD (chronic kidney disease) stage 3, GFR 30-59 ml/min Diffuse large B-cell lymphoma of extranodal site (~08/2012) Respiratory failure Chronic-on 2-3L O2 at home Surgical History S/P cardiac catheterization S/P hysterectomy S/P tonsillectomy Social History Preferred Language: Indonesian Communication Ability: Effective Clock And Watch Hands Painter Required: No Beliefs That Will Affect Care: None marital status: Current Living Situation: Spouse 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: Retired/Disabled Other Information That Helps Us Care for You: No Feels Safe at Home: Yes Safety Concerns: Feels Safe At This Time Smoking Status: Never smoker Do You Dip or Chew Tobacco: No Second Hand Exposure: No Hx Alcohol Use: No Hx Substance Use: No Review of Systems Review of Systems: All systems reviewed & are unremarkable except as noted in HPI & below Physical Exam Constitutional: WD/WN, vitals as above + ill appearing Eyes: + anicteric sclerae Respiratory: Auscultation: + crackles (at bases) and + wheezes (diffuse) Cardiovascular: Rate/Rhythm: regular rate and + irregularly irregular Heart Sounds: no murmur Extremities: + edema (2+ to knees) Gastrointestinal (Abdomen): Inspection/Auscultation: abdomen not distended Percussion/Palpation: abdomen soft; abdomen nontender Skin: no rashes, warm and dry Neurologic: no focal motor deficits Psychiatric: A+Ox3, euthymic affect Results & Data Vital Signs (Past 12 Hours) Vital Signs Temp Pulse Pulse Resp BP Pulse Ox 11/16/18 07:38 36.9 C 99 H 20 134/75 94 11/16/18 07:20 114 H 20 94 11/16/18 03:35 37.1 C 106 H 20 139/67 98 11/16/18 03:30 92 H 20 93 11/15/18 23:10 106 H 16 85 L 11/15/18 23:09 37.1 C 97 H 20 138/91 92 Diagnostic Findings Echo today: LVEF 55-60%. Diastolic dysfunction. Mild RV dysfunction. Normal CVP.
[2018-11-16] MEDS ORDERED: COUGH DROP (SUGAR FREE) LOZ 24 LOZ/1 BOX BUCCAL PRN (15:52)
[2018-11-16] MEDS: BENZONATATE 100 MG CAPSULE PO PRN (16:22)
--- NOTE | 2018-11-16 18:11 | Hospitalist Progress Note ---
Date of Service November 16, 2018 Assessment & Plan (1) Acute on chronic diastolic heart failure: Patient with progressive [place]/SOB, edema, orthopnea and weight gain prior to admission along with recent respiratory illness as below. Continues to be volume overloaded on clinical exam. She has history of diastolic CHF. Echo performed on 25 April 2017 with normal LV size and function with EF of 60- 65%. No WMA, severe LVH. No diastolic dysfunction noted on echo at that time. Afebrile, no leukocytosis, no infiltrate noted on CXR. +Wheezing as well with COPD exacerbation as below Has known diuresed and is down 3 kg from previous. Rapid A. fib is likely contributing Procalcitonin is negative. Repeat echocardiogram here with preserved LV function, mild LVH, diastolic dysfunction, and mildly reduced RV function Also has known apical variant hypertrophic obstructive cardiomyopathy -Continue rate control for A. fib as below -Appreciate cardiology consultation -Continue Lasix 60mg IV BID -Continue Daily weights, strict I/Os, Na restriction -Continue to check BMP to monitor electrolytes and renal function on a daily basis (2) COPD with acute exacerbation: With diffuse wheezing on examination, worsening shortness of breath, and recent lower respiratory infection likely viral. Was on doxycycline prior to admission x3 days, but has not been on any corticosteroids. Flu swab here is negative -Start Solu-Medrol with loading dose now then 60 mg IV every 8 Continue duo nebs scheduled every 4 hours -Continue supplemental O2 during the day and nasal BiPAP at nighttime -Added Tessalon Perles for cough -Chest x-ray without definite pneumonia but difficult to see the left base due to cardiomegaly on chest x-ray (3) Acute and chronic respiratory failure: Acute and chronic respiratory failure with hypoxia, also with hypercapnia in the past on previous ABGs -Continue supplemental O2 during the day to keep pulse ox greater than 88% -Continue nasal BiPAP at nighttime -Follows with sleep medicine as an outpatient (4) Paroxysmal A-fib: Continues with mildly rapid ventricular response with her A. fib-could be exacerbated by recent respiratory illness and COPD exacerbation -Continue Amiodarone 100mg po BID -Continue Carvedilol 6.25 mg BID -Continue Eliquis 2.5 mg p.o. twice daily (is on lower dose due to history of intracranial hemorrhage and is also on Plavix for her recent cardiac stents) -Continue telemetry monitoring -Appreciate cardiology consultation (5) Chest pressure: Patient with known CAD, complaining of mild substernal chest pressure upon admission which is now resolved. She has chronic changes on EKG, does not appear to be any acute ischemic changes. Troponin within normal range at 0.034/0.044 Had cardiac catheterization in 06/2018 with stent placed x2 in the RCA No ongoing ACS, echo without wall motion abnormalities -Continue telemetry monitoring -Repeat troponin to assess trend -Continue Plavix. Patient is statin intolerant -Continue carvedilol (6) CAD (coronary artery disease): Plan outlined as above in "chest pain" (7) Anxiety: Patient with history of anxiety. Well controlled -Continue Buspirone 5mg po BID (8) JANICE treated with BiPAP: Treat suspected CHF as above -BiPAP qHS, patient's plans to return home to bring her BiPAP in (9) Diabetes: Patient reports adequate blood sugar control AIC=6.8 on 09/15/18 -Continue home insulin regimen -Fingersticks (10) HTN (hypertension): controlled -Continue Amlodipine. -Continue Carvedilol (11) Diarrhea: In setting of recent antibiotic use -Check C.diff-not collected thus far (12) Thrombocytopenia: mild, 90s Unclear etiology -Follow CBC (13) DVT prophylaxis: Eliquis Disposition-remain on telemetry Subjective Patient feeling a little bit better than when she came in. Less short of breath but still wheezing coughing quite a bit. Her cough is minimally productive but she is unable to get it up and out. She reports that she does have a long history of COPD, yet she never smoked. She has been on prednisone before for this but says that it usually does not help. Telemetry with A. fib with rates in the 100s to 120s Review of Systems Review of Systems: All systems reviewed & are unremarkable except as noted in HPI & below Physical Exam Constitutional: WD/WN, vitals as above + obese; no acute distress Eyes: PERRL, conjunctivae normal, anicteric sclerae ENMT: external ear and nose normal, oropharynx normal Neck: trachea midline, no thyromegaly Respiratory: normal respiratory effort Auscultation: + crackles (At the bases) and + wheezes (Diffuse inspiratory and expiratory wheezes); no rhonchi Cardiovascular: Rate/Rhythm: + tachycardic (Mild) and + irregularly irregular Heart Sounds: no murmur Extremities: + edema (1+ pitting edema legs to the knees bilaterally) Gastrointestinal (Abdomen): normal bowel sounds, soft, nontender, no hepatosplenomegaly Musculoskeletal: Extremities: extremities normal to inspection; no cyanosis and no clubbing Skin: no rashes, warm and dry Neurologic: moves all extremities and awake; no focal motor deficits Psychiatric: A+Ox3, euthymic affect Results & Data Vital Signs (Past 12 Hours) Vital Signs Temp Pulse Pulse Pulse Resp BP BP 11/16/18 15:00 102 H 11/16/18 11:45 37.2 C 99 H 20 120/69 11/16/18 11:16 104 H 18 11/16/18 07:38 36.9 C 99 H 20 134/75 11/16/18 07:20 114 H 20 Pulse Ox 11/16/18 15:00 11/16/18 11:45 94 11/16/18 11:16 86 L 11/16/18 07:38 94 11/16/18 07:20 94 Laboratory Results 11/17/18 11/16/18 11/16/18 Range/Units 05:44 20:09 16:47 WBC (4.8-10.8) K/uL RBC (4.2-5.4) M/uL Hgb (12.0-16.0) g/dL Hct (37-47) % MCV (80-100) fL MCH (25-34) pg MCHC (32-36) g/dL RDW Std Deviation (36.4-46.3) fL RDW Coeff of Nhi (11.5-14.5) % Plt Count (130-400) K/uL MPV (7.4-10.4) fL Immature Gran % (Auto) % Neut % (Auto) % Lymph % (Auto) % [place] % (Auto) % Eos % (Auto) % Baso % (Auto) % Immature Gran # (Auto) (0.00-0.02) K/uL Neut # (Auto) (1.4-6.5) K/uL Lymph # (Auto) (1.2-3.4) K/uL [place] # (Auto) (0.11-0.59) K/uL Eos # (Auto) (0-0.5) K/uL Baso # (Auto) (0-0.2) K/uL Absolute Nucleated RBC (0-0) K/uL Nucleated RBC % (auto) % Platelet Estimate (Normal) Giant Platelets Sodium Pending (136-145) mmol/L Potassium Pending (3.5-5.1) mmol/L Chloride Pending (98-107) mmol/L Carbon Dioxide Pending (21-32) mmol/L Anion Gap Pending (3-11) BUN Pending (7-18) mg/dl Creatinine Pending (0.6-1.2) mg/dl Est Cr Clr Drug Dosing Pending ml/min Est GFR ( Amer) Pending Est GFR (Non-Af Amer) Pending BUN/Creatinine Ratio Pending (10-20) Glucose Pending (70-99) mg/dl POC Glucose 135 H 89 (70-99) Calcium Pending (8.5-10.1) mg/dl Magnesium Pending Specimen Hemolysis 11/16/18 11/16/18 11/16/18 Range/Units 11:43 08:50 08:50 WBC 5.98 (4.8-10.8) K/uL RBC 4.09 L (4.2-5.4) M/uL Hgb 12.1 (12.0-16.0) g/dL Hct 38.6 (37-47) % MCV 94.4 (80-100) fL MCH 29.6 (25-34) pg MCHC 31.3 L (32-36) g/dL RDW Std Deviation 56.6 H (36.4-46.3) fL RDW Coeff of Nhi 16.4 H (11.5-14.5) % Plt Count 98 L (130-400) K/uL MPV 12.3 H (7.4-10.4) fL Immature Gran % (Auto) 0.5 % Neut % (Auto) 82.1 % Lymph % (Auto) 10.5 % [place] % (Auto) 6.0 % Eos % (Auto) 0.7 % Baso % (Auto) 0.2 % Immature Gran # (Auto) 0.03 H (0.00-0.02) K/uL Neut # (Auto) 4.91 (1.4-6.5) K/uL Lymph # (Auto) 0.63 L (1.2-3.4) K/uL [place] # (Auto) 0.36 (0.11-0.59) K/uL Eos # (Auto) 0.04 (0-0.5) K/uL Baso # (Auto) 0.01 (0-0.2) K/uL Absolute Nucleated RBC 0.02 H (0-0) K/uL Nucleated RBC % (auto) 0.3 % Platelet Estimate Decreased (Normal) Giant Platelets 1+ Sodium 143 (136-145) mmol/L Potassium 4.1 (3.5-5.1) mmol/L Chloride 102 (98-107) mmol/L Carbon Dioxide 36 H (21-32) mmol/L Anion Gap 5.0 (3-11) BUN 41 H (7-18) mg/dl Creatinine 1.60 H (0.6-1.2) mg/dl Est Cr Clr Drug Dosing 30.0 ml/min Est GFR ( Amer) 35.7 Est GFR (Non-Af Amer) 30.8 BUN/Creatinine Ratio 25.4 H (10-20) Glucose 157 H (70-99) mg/dl POC Glucose 109 H (70-99) Calcium 8.5 (8.5-10.1) mg/dl Magnesium Specimen Hemolysis 11/16/18 Range/Units 07:24 WBC (4.8-10.8) K/uL RBC (4.2-5.4) M/uL Hgb (12.0-16.0) g/dL Hct (37-47) % MCV (80-100) fL MCH (25-34) pg MCHC (32-36) g/dL RDW Std Deviation (36.4-46.3) fL RDW Coeff of Nhi (11.5-14.5) % Plt Count (130-400) K/uL MPV (7.4-10.4) fL Immature Gran % (Auto) % Neut % (Auto) % Lymph % (Auto) % [place] % (Auto) % Eos % (Auto) % Baso % (Auto) % Immature Gran # (Auto) (0.00-0.02) K/uL Neut # (Auto) (1.4-6.5) K/uL Lymph # (Auto) (1.2-3.4) K/uL [place] # (Auto) (0.11-0.59) K/uL Eos # (Auto) (0-0.5) K/uL Baso # (Auto) (0-0.2) K/uL Absolute Nucleated RBC (0-0) K/uL Nucleated RBC % (auto) % Platelet Estimate (Normal) Giant Platelets Sodium (136-145) mmol/L Potassium (3.5-5.1) mmol/L Chloride (98-107) mmol/L Carbon Dioxide (21-32) mmol/L Anion Gap (3-11) BUN (7-18) mg/dl Creatinine (0.6-1.2) mg/dl Est Cr Clr Drug Dosing ml/min Est GFR ( Amer) Est GFR (Non-Af Amer) BUN/Creatinine Ratio (10-20) Glucose (70-99) mg/dl POC Glucose 141 H (70-99) Calcium (8.5-10.1) mg/dl Magnesium Specimen Hemolysis (1) Diabetes Diabetes mellitus complication status: without complication 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 transplanted heart: [place] heart Qualified Code(s): I25.10 - Atherosclerotic heart disease of [place] coronary artery without angina pectoris (4) HTN (hypertension) Hypertension type: essential hypertension Qualified Code(s): I10 - Essential (primary) hypertension
[2018-11-16] MEDS ORDERED: SODIUM CHLORIDE 0.65% NA SOLN 45 ML (OCEAN) PRN (18:39)
[2018-11-16] MEDS ORDERED: methylPREDNISolone 125 MG/2 ML VIAL IV STA (18:39)
[2018-11-16] MEDS ORDERED: methylPREDNISolone 125 MG in SYRINGE 0 ML IV STA (18:50)
[2018-11-16] MEDS: DOXYCYCLINE HYCLATE 100 MG in DEXTROSE 5% 100 ML IV SCH (19:42)
[2018-11-16] MEDS: FLUTICASONE PROPIONATE NA SPR 16 GM BTL SCH (19:42)
[2018-11-16] MEDS: HEPARIN 100 UNIT/ML 5ML FLUSH IV PRN (22:02)
[2018-11-17] MEDS: HEPARIN 100 UNIT/ML 5ML FLUSH IV PRN ×5 (02:04→20:34)
[2018-11-17] MEDS: methylPREDNISolone 60 MG in SYRINGE 0 ML IV SCH ×3 (02:04→17:52)
[2018-11-17] MEDS: ALBUT/IPRATROP 3MG/0.5MG NEB 3 ML VIAL NEB SCH ×6 (03:13→23:04)
[2018-11-17] MEDS: DOXYCYCLINE HYCLATE 100 MG in DEXTROSE 5% 100 ML IV SCH ×2 (06:22→17:52)
[2018-11-17 07:02] LABS: BUN Creatinine Ratio 29.4 (10-20); Calcium 8.1 mg/dl (8.5-10.1); Creatinine Clr Calc Pharmacy 27.9 ml/min; Est GFR (African American) 32.7; Est GFR (Non-African American) 28.2; Magnesium 1.7 mg/dl (1.8-2.4); Potassium 3.9 mmol/L (3.5-5.1)
[2018-11-17] MEDS: INSULIN ASPART 100 UNITS/ML 3 ML PEN SC SCH ×5 (08:04→20:47)
[2018-11-17] MEDS: INSULIN GLARGINE SOLOSTAR 100 UNITS/ML 3 ML PEN SQ SCH ×2 (08:04→20:48)
[2018-11-17] MEDS: CLOPIDOGREL BISULFATE 75 MG TAB PO SCH (08:08)
[2018-11-17] MEDS: CARVEDILOL 6.25 MG TAB PO SCH ×2 (08:08→20:45)
[2018-11-17] MEDS: PREGABALIN 100 MG CAP PO SCH (08:08)
[2018-11-17] MEDS: FUROSEMIDE 60 MG in SYRINGE 0 ML IV SCH (08:08)
[2018-11-17] MEDS: FLUTICASONE PROPIONATE NA SPR 16 GM BTL SCH (08:08)
[2018-11-17] MEDS: BENZONATATE 100 MG CAPSULE PO PRN (08:09)
[2018-11-17] MEDS: FOLIC ACID 400 MCG TAB PO SCH (08:09)
[2018-11-17] MEDS: VITAMIN B COMPLEX TAB PO SCH (08:09)
[2018-11-17] MEDS: AMIODARONE 200 MG TAB PO SCH ×2 (08:09→20:45)
[2018-11-17] MEDS: APIXABAN 2.5 MG TAB PO SCH ×2 (08:10→20:47)
[2018-11-17] MEDS: MAGNESIUM OXIDE 400 MG TAB PO SCH ×2 (08:10→20:45)
[2018-11-17] MEDS ORDERED: POTASSIUM CHLORIDE 20 MEQ TABCR PO STA (09:05)
[2018-11-17] MEDS: MAGNESIUM SULFATE / D5W 1 GM/100 ML BAG IV SCH ×2 (11:35→12:17)
--- NOTE | 2018-11-17 12:01 | Hospitalist Progress Note ---
Date of Service November 17, 2018 Assessment & Plan (1) COPD with acute exacerbation: With diffuse wheezing on examination, worsening shortness of breath, and recent lower respiratory infection likely viral respiratory illness that started within the last week. Was on doxycycline prior to admission x3 days, but has not been on any corticosteroids. With increased sputum production and severe COPD exacerbation Flu swab here is negative Much improved today with addition of steroids -Continue Solu-Medrol 60 mg IV every 8 hours Continue duo nebs scheduled every 4 hours -Continue supplemental O2 during the day and nasal BiPAP at nighttime -Continue Tessalon Perles for cough -Chest x-ray without definite pneumonia but difficult to see the left base due to cardiomegaly on chest x-ray -Continue doxycycline 100 mg twice daily -Check sputum culture if possible (2) Acute on chronic diastolic heart failure: Patient with progressive [place]/SOB, edema, orthopnea and weight gain prior to admission along with recent respiratory illness as above Peripheral edema is improved, weight is down, and respiratory distress is improved with IV diuresis Approaching euvolemia Echo performed on 25 April 2017 with normal LV size and function with EF of 60-65%. No WMA, severe LVH. Has now diuresed and is down 3 kg from previous. Rapid A. fib was likely contributing Repeat echocardiogram here with preserved LV function, mild LVH, diastolic dysfunction, and mildly reduced RV function Also has known apical variant hypertrophic obstructive cardiomyopathy -Continue rate control for A. fib as below -Appreciate cardiology consultation -With creatinine rising, will transition to Lasix 40 mg p.o. twice daily -Continue Daily weights, strict I/Os, Na restriction -Continue to check BMP to monitor electrolytes and renal function on a daily basis (3) Acute and chronic respiratory failure: Acute and chronic respiratory failure with hypoxia, also with hypercapnia in the past on previous ABGs -Continue supplemental O2 during the day to keep pulse ox greater than 88% -Continue nasal BiPAP at nighttime -Follows with sleep medicine as an outpatient (4) Paroxysmal A-fib: Continues with mildly rapid ventricular response with her A. fib-could be exacerbated by recent respiratory illness and COPD exacerbation -Continue Amiodarone 100mg po BID -Continue Carvedilol 6.25 mg BID -Continue Eliquis 2.5 mg p.o. twice daily (is on lower dose due to history of intracranial hemorrhage and is also on Plavix for her recent cardiac stents) -Continue telemetry monitoring -Appreciate cardiology consultation (5) Chest pressure: Patient with known CAD, complaining of mild substernal chest pressure upon admission which is now resolved. She has chronic changes on EKG, does not appear to be any acute ischemic changes. Troponin within normal range at 0.034/0.044 Had cardiac catheterization in 06/2018 with stent placed x2 in the RCA No ongoing ACS, echo without wall motion abnormalities -Continue telemetry monitoring -Repeat troponin to assess trend -Continue Plavix. Patient is statin intolerant -Continue carvedilol (6) CAD (coronary artery disease): Plan outlined as above in "chest pain" (7) Anxiety: Patient with history of anxiety. Well controlled -Continue Buspirone 5mg po BID (8) JANICE treated with BiPAP: Treat suspected CHF as above -BiPAP qHS (9) Diabetes: Patient reports adequate blood sugar control AIC=6.8 on 09/15/18 With hyperglycemia here secondary corticosteroids -Increase Lantus and sliding scale insulin (10) HTN (hypertension): controlled -Continue Amlodipine. -Continue Carvedilol (11) Diarrhea: Resolved (12) Thrombocytopenia: mild, 90s Unclear etiology -Follow CBC (13) DVT prophylaxis: Eliquis Disposition-remain on telemetry Subjective Feeling much improved today, much less short of breath and cough is decreased. Denies any chest pain. She is making plenty of urine. No nausea or vomiting. Atrial fibrillation with rates in the 90s to 100s noted on telemetry Review of Systems Review of Systems: All systems reviewed & are unremarkable except as noted in HPI & below Physical Exam Constitutional: WD/WN, vitals as above + obese; no acute distress Eyes: PERRL, conjunctivae normal, anicteric sclerae ENMT: external ear and nose normal, oropharynx normal Neck: trachea midline, no thyromegaly Respiratory: normal respiratory effort Auscultation: + wheezes (Diffuse expiratory wheezes but much improved air movement since yesterday); no rhonchi Cardiovascular: Rate/Rhythm: regular rate and + irregularly irregular Heart Sounds: no murmur Extremities: + edema (Trace + pitting edema legs to the knees bilaterally) Gastrointestinal (Abdomen): normal bowel sounds, soft, nontender, no hepatosplenomegaly Musculoskeletal: Extremities: extremities normal to inspection; no cyanosis and no clubbing Skin: no rashes, warm and dry Neurologic: moves all extremities and awake; no focal motor deficits Psychiatric: A+Ox3, euthymic affect Results & Data Vital Signs (Past 12 Hours) Vital Signs Temp Pulse Resp BP Pulse Ox 11/17/18 11:40 36.7 C 87 16 115/70 90 11/17/18 11:11 87 18 96 11/17/18 07:30 78 20 95 11/17/18 07:06 36.4 C L 101 H 20 133/73 90 11/17/18 03:40 36.5 C 101 H 20 118/69 92 Laboratory Results 11/17/18 11/17/18 11/17/18 Range/Units 16:47 16:45 11:37 Sodium (136-145) mmol/L Potassium (3.5-5.1) mmol/L Chloride (98-107) mmol/L Carbon Dioxide (21-32) mmol/L Anion Gap (3-11) BUN (7-18) mg/dl Creatinine (0.6-1.2) mg/dl Est Cr Clr Drug Dosing ml/min Est GFR ( Amer) Est GFR (Non-Af Amer) BUN/Creatinine Ratio (10-20) Glucose (70-99) mg/dl POC Glucose 291 H 303 H* 280 H (70-99) Calcium (8.5-10.1) mg/dl Magnesium (1.8-2.4) mg/dl Specimen Hemolysis 11/17/18 11/17/18 11/16/18 Range/Units 07:36 05:44 20:09 Sodium 140 (136-145) mmol/L Potassium 3.9 (3.5-5.1) mmol/L Chloride 98 (98-107) mmol/L Carbon Dioxide 35 H (21-32) mmol/L Anion Gap 7.0 (3-11) BUN 51 H (7-18) mg/dl Creatinine 1.72 H (0.6-1.2) mg/dl Est Cr Clr Drug Dosing 27.9 ml/min Est GFR ( Amer) 32.7 Est GFR (Non-Af Amer) 28.2 BUN/Creatinine Ratio 29.4 H (10-20) Glucose 185 H (70-99) mg/dl POC Glucose 225 H 135 H (70-99) Calcium 8.1 L (8.5-10.1) mg/dl Magnesium 1.7 L (1.8-2.4) mg/dl Specimen Hemolysis (1) Diabetes Diabetes mellitus complication status: without complication Diabetes mellitus shelter insulin use: with shelter use Diabetes mellitus type: type 2 Qualified Code(s): E11.9 - Type 2 diabetes mellitus without complications; 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 transplanted heart: [place] heart Qualified Code(s): I25.10 - Atherosclerotic heart disease of [place] coronary artery without angina pectoris (4) HTN (hypertension) Hypertension type: essential hypertension Qualified Code(s): I10 - Essential (primary) hypertension
--- NOTE | 2018-11-17 12:43 | Cardiology Progress Note ---
Date of Service November 17, 2018 Assessment & Plan (1) Acute on chronic diastolic heart failure: 2. Multivessel CAD 3. Persistent Afib 4. CKD 5. Type 2 DM 6. Hypertension 7. History of subdural hematoma with craniotomy 2017 8. JANICE 9. COPD exacerbation Patient notes improvement in her shortness of breath and is negative 2.4 L. She continues to have evidence of vascular congestion on exam and would continue IV Lasix. Renal function remains relatively stable. Continue to monitor BMP closel y. Daily weights. Low sodium diet. No recurrent chest pain and troponin is in normal range. Continue clopidogrel, beta suraj. Heart rate has been reasonably controlled. If HR >110s can attempt to increase beta suraj. Continue anticoagulation. Subjective No acute complaints. Notes improvement in shortness of breath but not back to baseline. Some improvement in peripheral edema. No orthopnea or PND. No chest pain today. Continues to have a cough. Negative 2.4 L. Tele reviewed-- afib with rates up to low 100s Review of Systems Review of Systems: 10 point ROS completed and otherwise negative unless stated in HPI Physical Exam Physical Exam: General: No acute distress, comfortable. HEENT: Head is normal. PERRLA. EOMI. Sclerae anicteric. Ears, nose and throat unremarkable. Mucous membranes moist. Neck: Normal carotid upstrokes, no bruits. No appreciable JVD. Lungs: Bibasilar crackles and diffuse wheezing. Cardiac: Irregularly irregular. No appreciable murmur. Abdomen: Soft and nontender. Bowel sounds normal. No mass or organomegaly. No abdominal bruit. Extremities/vascular: Well perfused. 1+ right lower extremity edema and 1-2+ left lower extremity edema to nearly the knees Radial, DP and PT pulses 2+ bilaterally Skin: No rash or abnormal lesions. Normal turgor. Neurologic: Nonfocal Psychiatric: Affect appropriate. Alert and oriented. Results & Data Vital Signs (Past 12 Hours) Vital Signs Temp Pulse Resp BP Pulse Ox 11/17/18 11:40 36.7 C 87 16 115/70 90 11/17/18 11:11 87 18 96 11/17/18 07:30 78 20 95 11/17/18 07:06 36.4 C L 101 H 20 133/73 90 11/17/18 03:40 36.5 C 101 H 20 118/69 92 Laboratory Results Laboratory Results - last 24 hr 11/16/18 11/16/18 11/17/18 16:47 20:09 05:44 Sodium 140 Potassium 3.9 Chloride 98 Carbon Dioxide 35 H Anion Gap 7.0 BUN 51 H Creatinine 1.72 H Est Cr Clr Drug Dosing 27.9 Est GFR ( Amer) 32.7 Est GFR (Non-Af Amer) 28.2 BUN/Creatinine Ratio 29.4 H Glucose 185 H POC Glucose 89 135 H Calcium 8.1 L Magnesium 1.7 L Specimen Hemolysis 11/17/18 11/17/18 07:36 11:37 Sodium Potassium Chloride Carbon Dioxide Anion Gap BUN Creatinine Est Cr Clr Drug Dosing Est GFR ( Amer) Est GFR (Non-Af Amer) BUN/Creatinine Ratio Glucose POC Glucose 225 H 280 H Calcium Magnesium Specimen Hemolysis Diagnostic Findings Echo 11/16/18: Normal LV size. Mild concentric LVH. LVEF 55-60%. Normal RV size mildly reduced function. Diastolic dysfunction. Normal estimated CVP.
[2018-11-17] MEDS: FUROSEMIDE 40 MG TAB PO SCH (17:52)
[2018-11-17] MEDS: PREGABALIN 75 MG CAP PO SCH (20:51)
[2018-11-17] MEDS ORDERED: LORazepam 0.5 MG TAB PO STA (23:26)
[2018-11-18] MEDS: methylPREDNISolone 60 MG in SYRINGE 0 ML IV SCH ×3 (01:32→20:53)
[2018-11-18] MEDS: ALBUT/IPRATROP 3MG/0.5MG NEB 3 ML VIAL NEB SCH ×6 (03:30→23:02)
[2018-11-18] MEDS: DOXYCYCLINE HYCLATE 100 MG in DEXTROSE 5% 100 ML IV SCH ×2 (05:15→18:16)
[2018-11-18 06:53] LABS: Hematocrit (blood only) 39.2 % (37-47); Hemoglobin 12.3 g/dL (12.0-16.0); Mean Corpuscular Hgb Conc 31.4 g/dL (32-36); Mean Corpuscular Volume 93.3 fL (80-100); Nucleated RBC # (auto) 0.03 K/uL (0-0); Nucleated RBC % (auto) 0.4 %; Platelet Count 105 K/uL (130-400); RDW Standard Deviation 54.4 fL (36.4-46.3); White Blood Count 8.18 K/uL (4.8-10.8)
[2018-11-18 06:56] LABS: Basophils # (auto) 0.01 K/uL (0-0.2); Basophils % (auto) 0.1 %; Immature Granulocytes # (auto) 0.06 K/uL (0.00-0.02); Immature Granulocytes % (auto) 0.7 %; Lymphocytes # (auto) 0.39 K/uL (1.2-3.4); Lymphocytes % (auto) 4.8 %; Monocytes # (auto) 0.36 K/uL (0.11-0.59); Monocytes % (auto) 4.4 %; Neutrophils # (auto) 7.36 K/uL (1.4-6.5)
[2018-11-18 06:59] LABS: BUN Creatinine Ratio 34.8 (10-20); Creatinine Clr Calc Pharmacy 24.3 ml/min; Est GFR (African American) 27.7; Est GFR (Non-African American) 23.9; Potassium 4.1 mmol/L (3.5-5.1)
[2018-11-18] MEDS: CLOPIDOGREL BISULFATE 75 MG TAB PO SCH (08:05)
[2018-11-18] MEDS: AMIODARONE 200 MG TAB PO SCH ×2 (08:05→20:51)
[2018-11-18] MEDS: APIXABAN 2.5 MG TAB PO SCH ×2 (08:05→20:52)
[2018-11-18] MEDS: MAGNESIUM OXIDE 400 MG TAB PO SCH ×2 (08:06→20:54)
[2018-11-18] MEDS: FUROSEMIDE 40 MG TAB PO SCH ×2 (08:06→16:54)
[2018-11-18] MEDS: CARVEDILOL 6.25 MG TAB PO SCH (08:06)
[2018-11-18] MEDS: FOLIC ACID 400 MCG TAB PO SCH (08:06)
[2018-11-18] MEDS: FLUTICASONE PROPIONATE NA SPR 16 GM BTL SCH (08:07)
[2018-11-18] MEDS: VITAMIN B COMPLEX TAB PO SCH (08:07)
[2018-11-18] MEDS: INSULIN GLARGINE SOLOSTAR 100 UNITS/ML 3 ML PEN SQ SCH ×2 (08:08→20:53)
[2018-11-18] MEDS: INSULIN ASPART 100 UNITS/ML 3 ML PEN SC SCH ×4 (08:11→20:56)
[2018-11-18] MEDS: PREGABALIN 75 MG CAP PO SCH ×2 (08:14→20:54)
[2018-11-18] MEDS: HEPARIN 100 UNIT/ML 5ML FLUSH IV PRN ×2 (08:16→20:54)
[2018-11-18] MEDS ORDERED: CARVEDILOL 3.125 MG TAB PO ONE ×2 (09:15→16:30)
--- NOTE | 2018-11-18 10:25 | Nephrology Consultation ---
Date of Consultation November 18, 2018 Assessment & Plan (1) Acute kidney injury: -- UA: +2 protein; acellular microscopy -- Creatinine slightly elevated but metabolic profile otherwise acceptable -- Good urine output -- Volume status improving -- Rise in creatinine/BUN consistent with prerenal physiology from changes in effective circulating volume due to CRS and diuretics -- Medications are appropriately dosed for kidney function, including dose adjusted Eliquis -- Agree with continuing furosemide to encourage even to slightly negative fluid balance -- Document I/O's -- Repeat metabolic profile tomorrow AM (2) Chronic kidney disease with active medical management without dialysis, stage 3 (moderate): -- Baseline creatinine ~1.6 mg/dL -- Multiple episodes of KENDELL consistent with CRS -- Follows with Dr. 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 Maureen Hagen is a 78-year-old female with coronary artery disease, paroxysmal atrial fibrillation/flutter, apical variant hypertrophic cardiomyopathy, chronic diastolic heart failure, hypertension, hyperlipidemia, insulin dependent diabetes, chronic kidney disease, JANICE on BiPAP QHS, large B-cell lymphoma in remission, and prior subdural hematoma post craniotomy 11/2016. Maureen has CKD III with a baseline creatinine of 1.6 mg/dL. CKD has been attributed to diabetic nephropathy, hypertension, and microvascular disease. The patient follows with Dr. Sherman in the nephrology clinic. She has a history of multiple episodes of KENDELL consistent with cardiorenal syndrome. Hypertension has been managed with Carvedilol. ARB therapy was discontinued due to persistent lightheadedness and a history of recent KENDELL. In 2011, Mrs. Hagen suffered a syncopal event. She underwent an extensive evaluation. Random cortisol level was appropriately elevated. Cardiac catheterization July revealed no significant coronary artery disease. Event monitor was negative for arrhythmia. Carotid Doppler revealed bilateral plaque disease. An echocardiogram was performed. This was felt to be c/w hypertrophic cardiomyopathy. Mrs. Hagen was found to have an enlarged mediastinum. A chest CT revealed 3 pulmonary nodules. The patient underwent bronchoscopy. She was found to have a diffuse large B-cell lymphoma. She was referred to Oncology and completed six months or EPOCH chemotherapy and IVIG therapy. She is considered to be in complete remission at this time. For atrial fibrillation, her rhythm has been controlled with Amiodarone. Amiodarone previously discontinued in March of 2016. Unfortunately, she had multiple hospitalizations with recurrent AFib with RVR and associated dizziness and the medication was restarted in August of 2017. She was again admitted in September 2017 with atypical chest pain was found to be in atrial fibrillation and underwent electrical cardioversion. She was admitted to [facility] on 06/20/18 with chest pain occurring at rest. Her initial EKG was unchanged and troponin was negative. She underwent a dobutamine stress echo which showed preserved LV function with no signs of ischemia. She was discharged home on Lasix 40 mg every other day. She was readmitted on 07/04/18 with increased fatigue, shortness of breath and epigastric discomfort. Cardiac cath demonstrated severe multivessel CAD and elevated intracardiac filling pressures. She underwent successful PCI of distal RCA with single AWILDA and mid RCA in-stent restenosis with a single AWILDA. She was placed on Plavix following stent placement. She developed recurrent atrial fibrillation during admission and was restarted on Eliquis 2.5 mg BID (the med was held for the catheterization procedure). She was continued on Amiodarone and carvedilol. She was diuresed with IV Lasix during admission and was discharged on PO Lasix 40 mg every other day. More recently, she was admitted on 08/08/2018 with UTI and ureterolithiasis complicated by acute kidney injury. She eventually passed her stone and no surgical intervention was required. She was felt to volume overload secondary to treatment with IV fluids her Lasix was resumed with improvement of volume status. She presented to the cardiology clinic for an acute evaluation on 11/10 due to feeling poorly. Complaints included fatigue, lower extremity swelling, and increased exertional dyspnea. She was being treated by her PCP for left lower extremity cellulitis with Keflex. No fever, chills or sweats. She increased her Lasix from 40 mg every other day to 40 mg daily about one week prior without any significant improvement in her symptoms. Furosemide was increased to 80 mg BID, unfortunately symptoms progressed. Maureen presented to the ED at [facility] on November 15 with dyspnea and increasing edema. She was admitted with acute on chronic diastolic CHF and a COPD exacerbation. She also endorsed some substernal chest pains and palpitations at that time. Tele monitor has demonstrated atrial fibrillation with rates in the low 100's. There have not been any acute EKG changes. Symptoms are improving with diuresis and treatment of a COPD exacerbation. Maureen was started on doxycycline prior to arrival. She had symptoms of recent bronchitis. Solumedrol was started for COPD exacerbation during the admission. She remains on amiodarone and carvedilol for her atrial fibrillation. TTE was obtained on 10/2518: Normal LV size. Mild concentric LVH. LVEF 55-60%. Normal RV size mildly reduced function. Diastolic dysfunction. Normal estimated CVP. Furosemide has been reduced to 40 mg BID. Maureen weighs herself daily at home. She notes that she typically feels best when weight is less than 200 lbs. Weight had increased to >200 lbs for greater than 1 week prior to admission. Maureen's was recently diagnosed with prostate CA. She is very concerned about his health. Allergies Allergy/AdvReac Type Severity Reaction Status Date / Time eptifibatide Allergy Severe ANAPHYLAXIS Verified 11/15/18 14:59 hornet venom Allergy Severe WASP VENOM Verified 11/15/18 14:59 PROTEIN-ANAPHYLAXIS levofloxacin [From Levaquin] Allergy Severe Hives Verified 11/15/18 14:59 mivacurium Allergy Intermediate palpatation Verified 11/15/18 14:59 s atorvastatin Allergy Unknown MUSCLE PAIN Verified 11/15/18 14:59 ezetimibe Allergy Unknown MUSCLE PAIN Verified 11/15/18 14:59 simvastatin Allergy Unknown MUSCLE PAIN Verified 11/15/18 14:59 amlodipine AdvReac Severe Nausea Verified 11/15/18 14:59 warfarin AdvReac Intermediate EXTREME Verified 11/15/18 14:59 BLEEDING TIMES codeine AdvReac Mild VOMITING Verified 11/15/18 14:59 gemfibrozil AdvReac Mild NAUSEA Verified 11/15/18 14:59 meperidine AdvReac Mild VOMITING Verified 11/15/18 14:59 ondansetron AdvReac Mild vomiting Verified 11/15/18 14:59 ranitidine [From Zantac] AdvReac Mild dyspepsia Verified 11/15/18 14:59 cortisone AdvReac Unknown INCREASES Verified 11/15/18 14:59 SUGAR AND VOMITING? hydralazine AdvReac Unknown VOMITING Verified 11/15/18 14:59 ibuprofen AdvReac Unknown VOMITING Verified 11/15/18 14:59 AND DIARRHEA iodine AdvReac Unknown SHELLFISH Verified 11/15/18 14:59 - VOMITING shellfish derived AdvReac Unknown VOMITING Verified 11/15/18 14:59 Sulfa (Sulfonamide AdvReac Unknown VOMITING Verified 11/15/18 14:59 Antibiotics) Home Medications Home Medications Medication Instructions Recorded Confirmed Type Combivent Respimat 1 puff INHALATION Q6H PRN 06/20/18 11/15/18 History Lyrica 200 mg PO BID 06/20/18 11/15/18 History Novolog U-100 Insulin aspart 11 unit SUBCUT QAM 06/20/18 11/15/18 History Novolog U-100 Insulin aspart 18 unit SUBCUT LD 06/20/18 11/15/18 History Novolog U-100 Insulin aspart 26 unit SUBCUT QPM 06/20/18 11/15/18 History Zioptan (PF) 1 drp OPB DAILY 06/20/18 11/15/18 History amiodarone [Pacerone] 100 mg PO BID 06/20/18 11/15/18 History ascorbic acid (vitamin C) [Vitamin 1 g PO DAILY 06/20/18 11/15/18 History C] buspirone 5 mg PO BID 06/20/18 11/15/18 History ergocalciferol (vitamin D2) 50,000 unit PO MONTHLY 06/20/18 11/15/18 History [Vitamin D2] folic acid 800 mcg PO DAILY 06/20/18 11/15/18 History furosemide [Lasix] 40 mg PO Q OTHER DAY 06/20/18 11/15/18 History magnesium oxide [MagOx] 400 mg PO BID 06/20/18 11/15/18 History multivitamin 1 tab PO DAILY 06/20/18 11/15/18 History vitamin B complex 1 tab PO DAILY 06/20/18 11/15/18 History Eliquis 2.5 mg PO BID 07/09/18 11/15/18 History clopidogrel 75 mg PO QAM #30 tab 07/09/18 11/15/18 Rx Lantus Solostar U-100 Insulin 20 unit SUBCUT BID #0 ml 08/15/18 11/15/18 Rx amoxicillin 2,000 mg PO UD 09/14/18 11/15/18 History carvedilol 6.25 mg PO BID 11/15/18 11/15/18 History Patient History Medical History JANICE treated with BiPAP Atrial fibrillation CAD (coronary artery disease) Myocardial infarction Peripheral neuropathy (Chronic) Diabetes (Chronic) HTN (hypertension) (Chronic) Diastolic CHF Dyslipidemia Hypertrophic cardiomyopathy apical variant CKD (chronic kidney disease) stage 3, GFR 30-59 ml/min Diffuse large B-cell lymphoma of extranodal site (~08/2012) Respiratory failure Chronic-on 2-3L O2 at home Surgical History S/P cardiac catheterization S/P hysterectomy S/P tonsillectomy Family History Other Cancer Diabetes Gallbladder disease Heart disease Hypertension Kidney stones Social History Preferred Language: Lao Communication Ability: Effective 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 Beliefs That Will Affect Care: None marital status: Current Living Situation: Spouse 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: Retired/Disabled Other Information That Helps Us Care for You: No Feels Safe at Home: Yes Safety Concerns: Feels Safe At This Time Smoking Status: Never smoker Do You Dip or Chew Tobacco: No Second Hand Exposure: No Hx Alcohol Use: No Hx Substance Use: No Review of Systems Review of Systems: All systems reviewed & are unremarkable except as noted in HPI & below Physical Exam Constitutional: + obese; no acute distress Eyes: no scleral abnormality and no corneal abnormality ENMT: Mouth: no oral mucosal abnormality and oral mucous membranes not dry Neck: normal visual inspection and trachea midline Respiratory: no respiratory distress Auscultation: lungs clear to auscultation bilaterally and + rales (few basilar) Cardiovascular: Rate/Rhythm: + tachycardic and + irregularly irregular Heart Sounds: normal S1 and normal S2 Vessels: + JVD Extremities: + edema Gastrointestinal (Abdomen): Inspection/Auscultation: + abdomen distended Percussion/Palpation: abdomen soft; abdomen nontender Musculoskeletal: Extremities: no cyanosis and no clubbing Skin: normal turgor; no rashes Neurologic: Motor/Sensory: no tremor and no asterixis Psychiatric: Affect: euthymic affect Results & Data Vital Signs (Past 12 Hours) Vital Signs Temp Pulse Pulse Pulse Resp BP Pulse Ox 11/18/18 08:08 36.4 C L 119 H 20 159/90 H 96 11/18/18 07:22 115 H 18 97 11/18/18 04:25 97 11/18/18 04:01 115 H 20 79 L 11/18/18 04:00 36.4 C L 102 H 20 148/91 H 94 11/17/18 23:11 97 H 11/17/18 23:00 36.5 C 94 H 18 159/75 H 93 Laboratory Results Laboratory Results - last 24 hr 11/17/18 11/17/18 11/17/18 11:37 16:45 16:47 WBC RBC Hgb Hct MCV MCH MCHC RDW Std Deviation RDW Coeff of Nhi Plt Count MPV Immature Gran % (Auto) Neut % (Auto) Lymph % (Auto) [place] % (Auto) Eos % (Auto) Baso % (Auto) Immature Gran # (Auto) Neut # (Auto) Lymph # (Auto) [place] # (Auto) Eos # (Auto) Baso # (Auto) Absolute Nucleated RBC Nucleated RBC % (auto) Sodium Potassium Chloride Carbon Dioxide Anion Gap BUN Creatinine Est Cr Clr Drug Dosing Est GFR ( Amer) Est GFR (Non-Af Amer) BUN/Creatinine Ratio Glucose POC Glucose 280 H 303 H* 291 H Calcium 11/17/18 11/18/18 11/18/18 20:11 06:06 06:06 WBC 8.18 RBC 4.20 Hgb 12.3 Hct 39.2 MCV 93.3 MCH 29.3 MCHC 31.4 L RDW Std Deviation 54.4 H RDW Coeff of Nhi 16.0 H Plt Count 105 L MPV 12.0 H Immature Gran % (Auto) 0.7 Neut % (Auto) 90.0 Lymph % (Auto) 4.8 [place] % (Auto) 4.4 Eos % (Auto) 0.0 Baso % (Auto) 0.1 Immature Gran # (Auto) 0.06 H Neut # (Auto) 7.36 H Lymph # (Auto) 0.39 L [place] # (Auto) 0.36 Eos # (Auto) 0.00 Baso # (Auto) 0.01 Absolute Nucleated RBC 0.03 H Nucleated RBC % (auto) 0.4 Sodium 139 Potassium 4.1 Chloride 97 L Carbon Dioxide 37 H Anion Gap 5.0 BUN 69 H Creatinine 1.97 H Est Cr Clr Drug Dosing 24.3 Est GFR ( Amer) 27.7 Est GFR (Non-Af Amer) 23.9 BUN/Creatinine Ratio 34.8 H Glucose 167 H POC Glucose 238 H Calcium 8.0 L 11/18/18 07:29 WBC RBC Hgb Hct MCV MCH MCHC RDW Std Deviation RDW Coeff of Nhi Plt Count MPV Immature Gran % (Auto) Neut % (Auto) Lymph % (Auto) [place] % (Auto) Eos % (Auto) Baso % (Auto) Immature Gran # (Auto) Neut # (Auto) Lymph # (Auto) [place] # (Auto) Eos # (Auto) Baso # (Auto) Absolute Nucleated RBC Nucleated RBC % (auto) Sodium Potassium Chloride Carbon Dioxide Anion Gap BUN Creatinine Est Cr Clr Drug Dosing Est GFR ( Amer) Est GFR (Non-Af Amer) BUN/Creatinine Ratio Glucose POC Glucose 172 H Calcium Diagnostic Findings Echo 11/16/18: Normal LV size. Mild concentric LVH. LVEF 55-60%. Normal RV size mildly reduced function. Diastolic dysfunction. Normal estimated CVP. (1) Atrial fibrillation Atrial fibrillation type: paroxysmal Qualified Code(s): I48.0 - Paroxysmal atrial fibrillation (2) CAD (coronary artery disease) Coronary Disease-Associated Artery/Lesion type: [place] artery [place] vs. transplanted heart: [place] heart Associated angina: without angina Qualified Code(s): I25.10 - Atherosclerotic heart disease of [place] coronary artery without angina pectoris
--- NOTE | 2018-11-18 16:36 | Hospitalist Progress Note ---
Date of Service November 18, 2018 Assessment & Plan (1) COPD with acute exacerbation: With diffuse wheezing on examination, worsening shortness of breath, and recent lower respiratory infection likely viral respiratory illness that started within the last week. Was on doxycycline prior to admission x3 days, but has not been on any corticosteroids. With increased sputum production and severe COPD exacerbation Flu swab here is negative Continues to be improved today Wheezing is now resolved -taper down Solu-Medrol 60 mg IV every 12 hours -Continue duo nebs scheduled every 4 hours -Continue supplemental O2 during the day and nasal BiPAP at nighttime -Continue Tessalon Perles for cough -Chest x-ray without definite pneumonia but difficult to see the left base due to cardiomegaly on chest x-ray -Continue doxycycline 100 mg twice daily x 2 more days -Check sputum culture if possible (2) Acute on chronic diastolic heart failure: Patient with progressive BARAHONA/SOB, edema, orthopnea and weight gain prior to admission along with recent respiratory illness as above Peripheral edema is improved, weight is down, and respiratory distress is improved with IV diuresis Approaching euvolemia but still needs some volume taken off With rising occ ther, consulted Nephro--> appreciate consult--> recommends remaining on po lasix to encourage UOP Has cardiorenal syndrome Echo performed on 25 April 2017 with normal LV size and function with EF of 60-65%. No WMA, severe LVH. Has now diuresed and is down 3 kg from previous. Rapid A. fib was likely contributing Repeat echocardiogram here with preserved LV function, mild LVH, diastolic dysfunction, and mildly reduced RV function Also has known apical variant hypertrophic obstructive cardiomyopathy -Continue rate control for A. fib as below -Appreciate cardiology consultation -cont Lasix 40 mg p.o. twice daily -Continue Daily weights, strict I/Os, Na restriction -Continue to check BMP to monitor electrolytes and renal function on a daily basis (3) Acute and chronic respiratory failure: Acute and chronic respiratory failure with hypoxia, also with hypercapnia in the past on previous ABGs -Continue supplemental O2 during the day to keep pulse ox greater than 88% -Continue nasal BiPAP at nighttime -Follows with sleep medicine as an outpatient (4) Paroxysmal A-fib: Rates not well controlled yet A. fib-could be exacerbated by recent respiratory illness and COPD exacerbation, steroids and bronchodilators -Continue Amiodarone 100mg po BID -increase Carvedilol to 9.375 mg BID -Continue Eliquis 2.5 mg p.o. twice daily (is on lower dose due to history of intracranial hemorrhage and is also on Plavix for her recent cardiac stents) -Continue telemetry monitoring -Appreciate cardiology consultation (5) Chest pressure: Patient with known CAD, complaining of mild substernal chest pressure upon admission which is now resolved. She has chronic changes on EKG, does not appear to be any acute ischemic changes. Troponin within normal range at 0.034/0.044 Had cardiac catheterization in 06/2018 with stent placed x2 in the RCA No ongoing ACS, echo without wall motion abnormalities -Continue telemetry monitoring -Continue Plavix. Patient is statin intolerant -Continue carvedilol (6) CAD (coronary artery disease): Plan outlined as above in "chest pain" (7) Anxiety: Patient with history of anxiety. Well controlled -Continue Buspirone 5mg po BID (8) JANICE treated with BiPAP: Treat suspected CHF as above -BiPAP qHS (9) Diabetes: Patient reports adequate blood sugar control AIC=6.8 on 09/15/18 With hyperglycemia here secondary corticosteroids, now improved with increased doses of insulin -continue Lantus and sliding scale insulin (10) HTN (hypertension): controlled -Continue Amlodipine. -Continue Carvedilol (11) Diarrhea: Resolved (12) Thrombocytopenia: mild,improved today to 105 Unclear etiology, no liver abnormalities or splenomegaly on imaging mild anemia with macrocytosis -Follow CBC -check B12, folate levels (13) DVT prophylaxis: Eliquis Disposition-remain on telemetry, remain hospitalized until renal function improving and euvolemic, breathing is improved Subjective Pt feelin gbetter with her breathing. Is making urine, denies CP. Is actually feeling "bored." Tele with Afib with rates 100s-110s pt also reports great difficulty sleeping last night due to the steroids hyping her up-reports the ativan 0.5mg dose she got did nothing for her Review of Systems Review of Systems: All systems reviewed & are unremarkable except as noted in HPI & below Physical Exam Constitutional: WD/WN, vitals as above + obese; no acute distress Eyes: PERRL, conjunctivae normal, anicteric sclerae ENMT: external ear and nose normal, oropharynx normal Neck: trachea midline, no thyromegaly Respiratory: normal respiratory effort Auscultation: + diminished lung sounds (at bases); no crackles, no rhonchi and no wheezes Cardiovascular: Rate/Rhythm: + tachycardic and + irregularly irregular Heart Sounds: no murmur Extremities: + edema (Trace + pitting edema legs to the knees bilaterally, improved from yesterda) Gastrointestinal (Abdomen): normal bowel sounds, soft, nontender, no hepatosplenomegaly Musculoskeletal: Extremities: extremities normal to inspection; no cyanosis and no clubbing Skin: no rashes, warm and dry Neurologic: moves all extremities and awake; no focal motor deficits Psychiatric: A+Ox3, euthymic affect Results & Data Vital Signs (Past 12 Hours) Vital Signs Temp Pulse Pulse Resp BP BP Pulse Ox 11/18/18 15:34 76 18 97 11/18/18 15:22 111 H 20 136/73 91 11/18/18 11:51 36.3 C L 97 H 20 139/82 93 11/18/18 11:20 97 H 16 94 11/18/18 08:08 36.4 C L 119 H 20 159/90 H 96 11/18/18 07:22 115 H 18 97 Laboratory Results 11/18/18 11/18/18 11/18/18 Range/Units 11:56 07:29 06:06 WBC (4.8-10.8) K/uL RBC (4.2-5.4) M/uL Hgb (12.0-16.0) g/dL Hct (37-47) % MCV (80-100) fL MCH (25-34) pg MCHC (32-36) g/dL RDW Std Deviation (36.4-46.3) fL RDW Coeff of Nhi (11.5-14.5) % Plt Count (130-400) K/uL MPV (7.4-10.4) fL Immature Gran % (Auto) % Neut % (Auto) % Lymph % (Auto) % [place] % (Auto) % Eos % (Auto) % Baso % (Auto) % Immature Gran # (Auto) (0.00-0.02) K/uL Neut # (Auto) (1.4-6.5) K/uL Lymph # (Auto) (1.2-3.4) K/uL [place] # (Auto) (0.11-0.59) K/uL Eos # (Auto) (0-0.5) K/uL Baso # (Auto) (0-0.2) K/uL Absolute Nucleated RBC (0-0) K/uL Nucleated RBC % (auto) % Sodium 139 (136-145) mmol/L Potassium 4.1 (3.5-5.1) mmol/L Chloride 97 L (98-107) mmol/L Carbon Dioxide 37 H (21-32) mmol/L Anion Gap 5.0 (3-11) BUN 69 H (7-18) mg/dl Creatinine 1.97 H (0.6-1.2) mg/dl Est Cr Clr Drug Dosing 24.3 ml/min Est GFR ( Amer) 27.7 Est GFR (Non-Af Amer) 23.9 BUN/Creatinine Ratio 34.8 H (10-20) Glucose 167 H (70-99) mg/dl POC Glucose 184 H 172 H (70-99) Calcium 8.0 L (8.5-10.1) mg/dl 11/18/18 11/17/18 11/17/18 Range/Units 06:06 20:11 16:47 WBC 8.18 (4.8-10.8) K/uL RBC 4.20 (4.2-5.4) M/uL Hgb 12.3 (12.0-16.0) g/dL Hct 39.2 (37-47) % MCV 93.3 (80-100) fL MCH 29.3 (25-34) pg MCHC 31.4 L (32-36) g/dL RDW Std Deviation 54.4 H (36.4-46.3) fL RDW Coeff of Nhi 16.0 H (11.5-14.5) % Plt Count 105 L (130-400) K/uL MPV 12.0 H (7.4-10.4) fL Immature Gran % (Auto) 0.7 % Neut % (Auto) 90.0 % Lymph % (Auto) 4.8 % [place] % (Auto) 4.4 % Eos % (Auto) 0.0 % Baso % (Auto) 0.1 % Immature Gran # (Auto) 0.06 H (0.00-0.02) K/uL Neut # (Auto) 7.36 H (1.4-6.5) K/uL Lymph # (Auto) 0.39 L (1.2-3.4) K/uL [place] # (Auto) 0.36 (0.11-0.59) K/uL Eos # (Auto) 0.00 (0-0.5) K/uL Baso # (Auto) 0.01 (0-0.2) K/uL Absolute Nucleated RBC 0.03 H (0-0) K/uL Nucleated RBC % (auto) 0.4 % Sodium (136-145) mmol/L Potassium (3.5-5.1) mmol/L Chloride (98-107) mmol/L Carbon Dioxide (21-32) mmol/L Anion Gap (3-11) BUN (7-18) mg/dl Creatinine (0.6-1.2) mg/dl Est Cr Clr Drug Dosing ml/min Est GFR ( Amer) Est GFR (Non-Af Amer) BUN/Creatinine Ratio (10-20) Glucose (70-99) mg/dl POC Glucose 238 H 291 H (70-99) Calcium (8.5-10.1) mg/dl 11/17/18 Range/Units 16:45 WBC (4.8-10.8) K/uL RBC (4.2-5.4) M/uL Hgb (12.0-16.0) g/dL Hct (37-47) % MCV (80-100) fL MCH (25-34) pg MCHC (32-36) g/dL RDW Std Deviation (36.4-46.3) fL RDW Coeff of Nhi (11.5-14.5) % Plt Count (130-400) K/uL MPV (7.4-10.4) fL Immature Gran % (Auto) % Neut % (Auto) % Lymph % (Auto) % [place] % (Auto) % Eos % (Auto) % Baso % (Auto) % Immature Gran # (Auto) (0.00-0.02) K/uL Neut # (Auto) (1.4-6.5) K/uL Lymph # (Auto) (1.2-3.4) K/uL [place] # (Auto) (0.11-0.59) K/uL Eos # (Auto) (0-0.5) K/uL Baso # (Auto) (0-0.2) K/uL Absolute Nucleated RBC (0-0) K/uL Nucleated RBC % (auto) % Sodium (136-145) mmol/L Potassium (3.5-5.1) mmol/L Chloride (98-107) mmol/L Carbon Dioxide (21-32) mmol/L Anion Gap (3-11) BUN (7-18) mg/dl Creatinine (0.6-1.2) mg/dl Est Cr Clr Drug Dosing ml/min Est GFR ( Amer) Est GFR (Non-Af Amer) BUN/Creatinine Ratio (10-20) Glucose (70-99) mg/dl POC Glucose 303 H* (70-99) Calcium (8.5-10.1) mg/dl (1) Acute and chronic respiratory failure Respiratory failure complication: hypoxia Qualified Code(s): J96.21 - Acute and chronic respiratory failure with hypoxia (2) CAD (coronary artery disease) Coronary Disease-Associated Artery/Lesion type: [place] artery [place] vs. 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
[2018-11-18] MEDS ORDERED: LORazepam 1 MG TAB PO PRN (16:50)
[2018-11-18] MEDS: CARVEDILOL 3.125 MG TAB PO SCH (20:51)
[2018-11-19] MEDS: ALBUT/IPRATROP 3MG/0.5MG NEB 3 ML VIAL NEB SCH ×6 (03:47→22:57)
[2018-11-19] MEDS: DOXYCYCLINE HYCLATE 100 MG in DEXTROSE 5% 100 ML IV SCH ×2 (06:02→17:12)
[2018-11-19 06:56] LABS: BUN Creatinine Ratio 37.1 (10-20); Calcium 8.1 mg/dl (8.5-10.1); Est GFR (Non-African American) 22.4; Potassium 4.1 mmol/L (3.5-5.1)
[2018-11-19 07:15] LABS: Mean Corpuscular Hgb Conc 31.2 g/dL (32-36)
[2018-11-19 07:18] LABS: Hematocrit (blood only) 40.7 % (37-47); Hemoglobin 12.7 g/dL (12.0-16.0); Mean Corpuscular Volume 95.1 fL (80-100); Mean Platelet Volume 12.7 fL (7.4-10.4); Nucleated RBC # (auto) 0.03 K/uL (0-0); Nucleated RBC % (auto) 0.2 %; Platelet Count 131 K/uL (130-400); RDW Standard Deviation 54.9 fL (36.4-46.3); Red Blood Count 4.28 M/uL (4.2-5.4)
[2018-11-19 07:19] LABS: Basophils # (auto) 0.01 K/uL (0-0.2); Basophils % (auto) 0.1 %; Immature Granulocytes # (auto) 0.18 K/uL (0.00-0.02); Immature Granulocytes % (auto) 1.5 %; Lymphocytes # (auto) 0.36 K/uL (1.2-3.4); Monocytes # (auto) 0.37 K/uL (0.11-0.59); Monocytes % (auto) 3.1 %; Neutrophils # (auto) 11.18 K/uL (1.4-6.5); Neutrophils % (auto) 92.3 %; Platelet Estimate Decreased (Normal); RBC Morphology Unremarkable
[2018-11-19] MEDS: methylPREDNISolone 60 MG in SYRINGE 0 ML IV SCH ×2 (08:20→20:09)
[2018-11-19] MEDS: AMIODARONE 200 MG TAB PO SCH ×2 (08:21→20:09)
[2018-11-19] MEDS: CLOPIDOGREL BISULFATE 75 MG TAB PO SCH (08:21)
[2018-11-19] MEDS: VITAMIN B COMPLEX TAB PO SCH (08:22)
[2018-11-19] MEDS: MAGNESIUM OXIDE 400 MG TAB PO SCH ×2 (08:22→20:12)
[2018-11-19] MEDS: FOLIC ACID 400 MCG TAB PO SCH (08:22)
[2018-11-19] MEDS: APIXABAN 2.5 MG TAB PO SCH ×2 (08:22→20:10)
[2018-11-19] MEDS: BENZONATATE 100 MG CAPSULE PO PRN (08:22)
[2018-11-19] MEDS: INSULIN GLARGINE SOLOSTAR 100 UNITS/ML 3 ML PEN SQ SCH ×2 (08:23→20:13)
[2018-11-19] MEDS: INSULIN ASPART 100 UNITS/ML 3 ML PEN SC SCH ×4 (08:23→20:12)
[2018-11-19] MEDS: CARVEDILOL 3.125 MG TAB PO SCH ×2 (08:25→20:11)
[2018-11-19] MEDS: FLUTICASONE PROPIONATE NA SPR 16 GM BTL SCH (08:25)
[2018-11-19] MEDS: PREGABALIN 75 MG CAP PO SCH ×2 (08:57→20:15)
--- NOTE | 2018-11-19 11:31 | Nephrology Progress Note ---
Date of Service November 19, 2018 Assessment & Plan (1) Acute kidney injury: -- UA: +2 protein; acellular microscopy -- Creatinine slightly elevated from baseline but fairly stable at 2.0 mg/dL this morning -- Good urine output -- Volume status acceptable, agree with holding diuretics -- Rise in creatinine/BUN consistent with prerenal physiology from changes in effective circulating volume due to CRS and diuretics -- Medications are appropriately dosed for kidney function, including dose ad justed Eliquis -- Maintain even fluid balance -- Document I/O's -- Repeat metabolic profile tomorrow AM (2) Chronic kidney disease with active medical management without dialysis, stage 3 (moderate): -- Baseline creatinine ~1.6 mg/dL -- Multiple episodes of KENDELL consistent with CRS -- Follows with Dr. 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 Maureen is feeling somewhat depressed this morning. Her breathing has significantly improved. Appetite is poor. She denies nausea, abdominal pain, or constipation. Maureen is concerned about her 's health. She is worried about not being at home. She otherwise feels well. Activity tolerance has improved. Review of Systems Review of Systems: All systems reviewed & are unremarkable except as noted in HPI & below Physical Exam Constitutional: + obese; no acute distress Eyes: no scleral abnormality and no corneal abnormality ENMT: Mouth: no oral mucosal abnormality and oral mucous membranes not dry Neck: normal visual inspection and trachea midline Respiratory: no respiratory distress Auscultation: lungs clear to auscultation bilaterally and + rales (few basilar) Cardiovascular: Rate/Rhythm: regular rate and + irregularly irregular Heart Sounds: normal S1 and normal S2 Vessels: + JVD Extremities: + edema (significantly improved) Gastrointestinal (Abdomen): Inspection/Auscultation: + abdomen distended Percussion/Palpation: abdomen soft; abdomen nontender Musculoskeletal: Extremities: no cyanosis and no clubbing Skin: normal turgor; no rashes Neurologic: Motor/Sensory: no tremor and no asterixis Psychiatric: Affect: euthymic affect Results & Data Vital Signs (Past 12 Hours) Vital Signs Temp Pulse Pulse Resp BP BP Pulse Ox 11/19/18 07:22 99 H 18 94 11/19/18 07:20 36.5 C 103 H 20 148/77 H 94 11/19/18 04:00 36.4 C L 103 H 20 149/98 H 94 11/19/18 00:00 102 H Laboratory Results Laboratory Results - last 24 hr 11/18/18 11/18/18 11/18/18 11:56 16:38 20:21 WBC RBC Hgb Hct MCV MCH MCHC RDW Std Deviation RDW Coeff of Nhi Plt Count MPV Immature Gran % (Auto) Neut % (Auto) Lymph % (Auto) [place] % (Auto) Eos % (Auto) Baso % (Auto) Immature Gran # (Auto) Neut # (Auto) Lymph # (Auto) [place] # (Auto) Eos # (Auto) Baso # (Auto) Absolute Nucleated RBC Nucleated RBC % (auto) Platelet Estimate RBC Morphology Sodium Potassium Chloride Carbon Dioxide Anion Gap BUN Creatinine Est Cr Clr Drug Dosing Est GFR ( Amer) Est GFR (Non-Af Amer) BUN/Creatinine Ratio Glucose POC Glucose 184 H 168 H 182 H Calcium 11/19/18 11/19/18 11/19/18 06:12 06:12 07:36 WBC 12.10 H RBC 4.28 Hgb 12.7 Hct 40.7 MCV 95.1 MCH 29.7 MCHC 31.2 L RDW Std Deviation 54.9 H RDW Coeff of Nhi 16.0 H Plt Count 131 MPV 12.7 H Immature Gran % (Auto) 1.5 Neut % (Auto) 92.3 Lymph % (Auto) 3.0 [place] % (Auto) 3.1 Eos % (Auto) 0.0 Baso % (Auto) 0.1 Immature Gran # (Auto) 0.18 H Neut # (Auto) 11.18 H Lymph # (Auto) 0.36 L [place] # (Auto) 0.37 Eos # (Auto) 0.00 Baso # (Auto) 0.01 Absolute Nucleated RBC 0.03 H Nucleated RBC % (auto) 0.2 Platelet Estimate Decreased RBC Morphology Unremarkable Sodium 141 Potassium 4.1 Chloride 98 Carbon Dioxide 37 H Anion Gap 6.0 BUN 77 H Creatinine 2.08 H Est Cr Clr Drug Dosing 23.0 Est GFR ( Amer) 26.0 Est GFR (Non-Af Amer) 22.4 BUN/Creatinine Ratio 37.1 H Glucose 157 H POC Glucose 192 H Calcium 8.1 L (1) Atrial fibrillation Atrial fibrillation type: paroxysmal Qualified Code(s): I48.0 - Paroxysmal atrial fibrillation (2) CAD (coronary artery disease) Coronary Disease-Associated Artery/Lesion type: [place] artery [place] vs. transplanted heart: [place] heart Associated angina: without angina Qualified Code(s): I25.10 - Atherosclerotic heart disease of [place] coronary artery without angina pectoris
[2018-11-19 12:00] LABS: Folate (Folic Acid) > 24.00 ng/ml (>5.38); Vitamin B12 1391 pg/ml (211-911)
--- NOTE | 2018-11-19 13:35 | Hospitalist Progress Note ---
Date of Service November 19, 2018 Assessment & Plan (1) COPD with acute exacerbation: Presented with diffuse wheezing on examination, worsening shortness of breath, and recent lower respiratory infection likely viral respiratory illness that started within the last week. Was on doxycycline prior to admission x3 days, but had not been on any corticosteroids. Here with increased sputum production and severe COPD exacerbation Flu swab here is negative Continues to be improved today from a pulmonary standpoint Wheezing is now resolved -DC Solu-Medrol and switch to prednisone for tomorrow -Continue duo nebs scheduled every 4 hours -Continue supplemental O2 during the day to keep pulse ox greater than 90% and nasal BiPAP at nighttime -Continue Tessalon Perles for cough -Chest x-ray without definite pneumonia but difficult to see the left base due to cardiomegaly on chest x-ray -Continue doxycycline 100 mg twice daily x 1 more days -Check sputum culture if possible, but not able to cough up any sputum (2) Acute on chronic diastolic heart failure: Patient with progressive [place]/SOB, edema, orthopnea and weight gain prior to admission along with recent respiratory illness as above Peripheral edema is improved, weight is down, and respiratory distress is improved with IV diuresis Approaching euvolemia but still needs some volume taken off With creatinine continue to rise, consulted Nephro--> appreciate consult--> will now hold Lasix Has cardiorenal syndrome Echo performed on 25 April 2017 with normal LV size and function with EF of 60- 65%. No WMA, severe LVH. Has now diuresed and is down 3 kg from previous. Rapid A. fib was likely contributing Repeat echocardiogram here with preserved LV function, mild LVH, diastolic dysfunction, and mildly reduced RV function Also has known apical variant hypertrophic obstructive cardiomyopathy -Continue rate control for A. fib as below -Appreciate cardiology consultation -Hold Lasix today for rising creatinine -Continue Daily weights, strict I/Os, Na restriction -Continue to check BMP to monitor electrolytes and renal function on a daily basis - will likely send out on oral Lasix 40 mg once daily once creatinine improves- her previous home dosage was 40 mg every other day-we will discuss with nephrology and cardiology prior to discharge (3) Acute and chronic respiratory failure: Acute and chronic respiratory failure with hypoxia, also with hypercapnia in the past on previous ABGs -Continue supplemental O2 during the day to keep pulse ox greater than 88% -Continue nasal BiPAP at nighttime -Follows with sleep medicine as an outpatient (4) Paroxysmal A-fib: Rates have been mildly elevated throughout her stay but are slightly improved today with increased dose of carvedilol A. fib-could be exacerbated by recent respiratory illness and COPD exacerbation, steroids and bronchodilators -Continue Amiodarone 100mg po BID -increased Carvedilol to 9.375 mg BID on 11/18-continue the same dose -Continue Eliquis 2.5 mg p.o. twice daily (is on lower dose due to history of intracranial hemorrhage and is also on Plavix for her recent cardiac stents) -Continue telemetry monitoring -Appreciate cardiology consultation -Hesitant to increase beta-suraj further as I suspect her blood pressure and heart rate will decrease now that steroids are being tapered down (5) Chest pressure: Patient with known CAD, complaining of mild substernal chest pressure upon admission which is now resolved. She has chronic changes on EKG, does not appear to be any acute ischemic changes. Troponin within normal range at 0.034/0.044 Had cardiac catheterization in 06/2018 with stent placed x2 in the RCA No ongoing ACS, echo without wall motion abnormalities -Continue telemetry monitoring -Continue Plavix. Patient is statin intolerant -Continue carvedilol (6) CAD (coronary artery disease): Plan outlined as above in "chest pain" (7) Anxiety: Patient with history of anxiety. Well controlled -Continue Buspirone 5mg po BID (8) JANICE treated with BiPAP: -BiPAP qHS (9) Diabetes: Patient reports adequate blood sugar control AIC=6.8 on 09/15/18 With hyperglycemia here secondary corticosteroids, now improved with increased doses of insulin -continue Lantus and sliding scale insulin (10) HTN (hypertension): Blood pressures somewhat elevated here, could be secondary to high-dose steroids -Continue Amlodipine. -Continue Carvedilol -Tapering down steroids -Follow blood pressures (11) Diarrhea: Resolved (12) Thrombocytopenia: mild,improved again today to 131 Unclear etiology, no liver abnormalities or splenomegaly on imaging mild anemia with macrocytosis -Follow CBC -B12 and folate levels are normal (13) DVT prophylaxis: Eliquis Disposition-remain on telemetry, remain hospitalized until renal function improving-hopeful for discharge to home in the next 1 to 2 days Will need follow-up in CHF clinic Subjective Patient is feeling depressed about being in the hospital for so long. Feels her breathing is much improved. She is tired of using salt substitute and wishes she could use regular salt on her food. No chest pain or abdominal pain. She is making plenty of urine. I discussed the case with nephrology today. Telemetry with atrial fibrillation with rates in the low 100s. Review of Systems Review of Systems: All systems reviewed & are unremarkable except as noted in HPI & below Physical Exam Constitutional: WD/WN, vitals as above + obese; no acute distress Eyes: PERRL, conjunctivae normal, anicteric sclerae Neck: trachea midline, no thyromegaly Respiratory: normal respiratory effort Auscultation: + diminished lung sounds (at bases); no crackles, no rhonchi and no wheezes Cardiovascular: Rate/Rhythm: regular rate and + irregularly irregular Heart Sounds: no murmur Extremities: + edema (1 + pitting edema legs to the knees bilaterally, slightly worse) Gastrointestinal (Abdomen): normal bowel sounds, soft, nontender, no hepatosplenomegaly Musculoskeletal: Extremities: extremities normal to inspection; no cyanosis and no clubbing Skin: no rashes, warm and dry Neurologic: moves all extremities and awake; no focal motor deficits Psychiatric: A+Ox3, euthymic affect Results & Data Vital Signs (Past 12 Hours) Vital Signs Temp Pulse Pulse Resp BP BP Pulse Ox 11/19/18 11:30 36.4 C L 90 20 163/91 H 96 11/19/18 08:00 98 H 11/19/18 07:22 99 H 18 94 11/19/18 07:20 36.5 C 103 H 20 148/77 H 94 11/19/18 04:00 36.4 C L 103 H 20 149/98 H 94 Laboratory Results 11/19/18 11/19/18 11/19/18 Range/Units 16:37 11:35 07:36 WBC (4.8-10.8) K/uL RBC (4.2-5.4) M/uL Hgb (12.0-16.0) g/dL Hct (37-47) % MCV (80-100) fL MCH (25-34) pg MCHC (32-36) g/dL RDW Std Deviation (36.4-46.3) fL RDW Coeff of Nhi (11.5-14.5) % Plt Count (130-400) K/uL MPV (7.4-10.4) fL Immature Gran % (Auto) % Neut % (Auto) % Lymph % (Auto) % [place] % (Auto) % Eos % (Auto) % Baso % (Auto) % Immature Gran # (Auto) (0.00-0.02) K/uL Neut # (Auto) (1.4-6.5) K/uL Lymph # (Auto) (1.2-3.4) K/uL [place] # (Auto) (0.11-0.59) K/uL Eos # (Auto) (0-0.5) K/uL Baso # (Auto) (0-0.2) K/uL Absolute Nucleated RBC (0-0) K/uL Nucleated RBC % (auto) % Platelet Estimate (Normal) RBC Morphology Sodium (136-145) mmol/L Potassium (3.5-5.1) mmol/L Chloride (98-107) mmol/L Carbon Dioxide (21-32) mmol/L Anion Gap (3-11) BUN (7-18) mg/dl Creatinine (0.6-1.2) mg/dl Est Cr Clr Drug Dosing ml/min Est GFR ( Amer) Est GFR (Non-Af Amer) BUN/Creatinine Ratio (10-20) Glucose (70-99) mg/dl POC Glucose 159 H 231 H 192 H (70-99) Calcium (8.5-10.1) mg/dl Vitamin B12 (211-911) pg/ml Folate (>5.38) ng/ml 11/19/18 11/19/18 11/19/18 Range/Units 06:12 06:12 06:12 WBC 12.10 H (4.8-10.8) K/uL RBC 4.28 (4.2-5.4) M/uL Hgb 12.7 (12.0-16.0) g/dL Hct 40.7 (37-47) % MCV 95.1 (80-100) fL MCH 29.7 (25-34) pg MCHC 31.2 L (32-36) g/dL RDW Std Deviation 54.9 H (36.4-46.3) fL RDW Coeff of Nhi 16.0 H (11.5-14.5) % Plt Count 131 (130-400) K/uL MPV 12.7 H (7.4-10.4) fL Immature Gran % (Auto) 1.5 % Neut % (Auto) 92.3 % Lymph % (Auto) 3.0 % [place] % (Auto) 3.1 % Eos % (Auto) 0.0 % Baso % (Auto) 0.1 % Immature Gran # (Auto) 0.18 H (0.00-0.02) K/uL Neut # (Auto) 11.18 H (1.4-6.5) K/uL Lymph # (Auto) 0.36 L (1.2-3.4) K/uL [place] # (Auto) 0.37 (0.11-0.59) K/uL Eos # (Auto) 0.00 (0-0.5) K/uL Baso # (Auto) 0.01 (0-0.2) K/uL Absolute Nucleated RBC 0.03 H (0-0) K/uL Nucleated RBC % (auto) 0.2 % Platelet Estimate Decreased (Normal) RBC Morphology Unremarkable Sodium 141 (136-145) mmol/L Potassium 4.1 (3.5-5.1) mmol/L Chloride 98 (98-107) mmol/L Carbon Dioxide 37 H (21-32) mmol/L Anion Gap 6.0 (3-11) BUN 77 H (7-18) mg/dl Creatinine 2.08 H (0.6-1.2) mg/dl Est Cr Clr Drug Dosing 23.0 ml/min Est GFR ( Amer) 26.0 Est GFR (Non-Af Amer) 22.4 BUN/Creatinine Ratio 37.1 H (10-20) Glucose 157 H (70-99) mg/dl POC Glucose (70-99) Calcium 8.1 L (8.5-10.1) mg/dl Vitamin B12 1391 H (211-911) pg/ml Folate > 24.00 (>5.38) ng/ml 11/18/18 Range/Units 20:21 WBC (4.8-10.8) K/uL RBC (4.2-5.4) M/uL Hgb (12.0-16.0) g/dL Hct (37-47) % MCV (80-100) fL MCH (25-34) pg MCHC (32-36) g/dL RDW Std Deviation (36.4-46.3) fL RDW Coeff of Nhi (11.5-14.5) % Plt Count (130-400) K/uL MPV (7.4-10.4) fL Immature Gran % (Auto) % Neut % (Auto) % Lymph % (Auto) % [place] % (Auto) % Eos % (Auto) % Baso % (Auto) % Immature Gran # (Auto) (0.00-0.02) K/uL Neut # (Auto) (1.4-6.5) K/uL Lymph # (Auto) (1.2-3.4) K/uL [place] # (Auto) (0.11-0.59) K/uL Eos # (Auto) (0-0.5) K/uL Baso # (Auto) (0-0.2) K/uL Absolute Nucleated RBC (0-0) K/uL Nucleated RBC % (auto) % Platelet Estimate (Normal) RBC Morphology Sodium (136-145) mmol/L Potassium (3.5-5.1) mmol/L Chloride (98-107) mmol/L Carbon Dioxide (21-32) mmol/L Anion Gap (3-11) BUN (7-18) mg/dl Creatinine (0.6-1.2) mg/dl Est Cr Clr Drug Dosing ml/min Est GFR ( Amer) Est GFR (Non-Af Amer) BUN/Creatinine Ratio (10-20) Glucose (70-99) mg/dl POC Glucose 182 H (70-99) Calcium (8.5-10.1) mg/dl Vitamin B12 (211-911) pg/ml Folate (>5.38) ng/ml (1) Diabetes Diabetes mellitus complication status: without complication Diabetes mellitus bed bug exterminator insulin use: with snf use Diabetes mellitus type: type 2 Qualified Code(s): E11.9 - Type 2 diabetes mellitus without complications; Z79.4 - terminal gauger supervisor (current) use of insulin (2) Acute and chronic respiratory failure Respiratory failure complication: hypoxia Qualified Code(s): J96.21 - Acute and chronic respiratory failure with hypoxia (3) CAD (coronary artery disease) Associated angina: without angina Coronary Disease-Associated Artery/Lesion type: [place] artery [place] vs. transplanted heart: [place] heart Qualified Code(s): I25.10 - Atherosclerotic heart disease of [place] coronary artery without angina pectoris (4) HTN (hypertension) Hypertension type: essential hypertension Qualified Code(s): I10 - Essential (primary) hypertension
[2018-11-19] MEDS: HEPARIN 100 UNIT/ML 5ML FLUSH IV PRN (20:17)
[2018-11-20] MEDS: ALBUT/IPRATROP 3MG/0.5MG NEB 3 ML VIAL NEB SCH ×6 (03:15→23:08)
[2018-11-20 06:00] LABS: Hematocrit (blood only) 39.3 % (37-47); Hemoglobin 12.3 g/dL (12.0-16.0); Mean Corpuscular Hgb Conc 31.3 g/dL (32-36); Mean Corpuscular Volume 94.7 fL (80-100); Mean Platelet Volume 12.5 fL (7.4-10.4); Nucleated RBC # (auto) 0.03 K/uL (0-0); Nucleated RBC % (auto) 0.3 %; Platelet Count 108 K/uL (130-400); RDW Coefficient of Variation 16.1 % (11.5-14.5); RDW Standard Deviation 55.7 fL (36.4-46.3); Red Blood Count 4.15 M/uL (4.2-5.4)
[2018-11-20] MEDS: DOXYCYCLINE HYCLATE 100 MG in DEXTROSE 5% 100 ML IV SCH (06:05)
[2018-11-20 06:13] LABS: Creatinine Clr Calc Pharmacy 29.3 ml/min; Est GFR (African American) 34.9; Est GFR (Non-African American) 30.1; Magnesium 2.6 mg/dl (1.8-2.4); Potassium 3.7 mmol/L (3.5-5.1)
[2018-11-20] MEDS: MAGNESIUM OXIDE 400 MG TAB PO SCH ×2 (08:06→20:36)
[2018-11-20] MEDS: CARVEDILOL 3.125 MG TAB PO SCH (08:06)
[2018-11-20] MEDS: AMIODARONE 200 MG TAB PO SCH ×2 (08:06→20:34)
[2018-11-20] MEDS: FOLIC ACID 400 MCG TAB PO SCH (08:07)
[2018-11-20] MEDS: CLOPIDOGREL BISULFATE 75 MG TAB PO SCH (08:07)
[2018-11-20] MEDS: APIXABAN 2.5 MG TAB PO SCH ×2 (08:07→20:36)
[2018-11-20] MEDS: INSULIN GLARGINE SOLOSTAR 100 UNITS/ML 3 ML PEN SQ SCH ×2 (08:07→20:40)
[2018-11-20] MEDS: INSULIN ASPART 100 UNITS/ML 3 ML PEN SC SCH ×4 (08:07→20:38)
[2018-11-20] MEDS: FLUTICASONE PROPIONATE NA SPR 16 GM BTL SCH (08:07)
[2018-11-20] MEDS: predniSONE 20 MG TAB PO SCH (08:07)
[2018-11-20] MEDS: VITAMIN B COMPLEX TAB PO SCH (08:07)
[2018-11-20] MEDS: PREGABALIN 75 MG CAP PO SCH ×2 (08:07→20:44)
--- NOTE | 2018-11-20 10:24 | Nephrology Progress Note ---
Date of Service November 20, 2018 Assessment & Plan (1) Acute kidney injury: -- acute kidney injury resolving, renal function improved, creatinine close to baseline. Her volume status improved and she has been net negative --continue Lasix at 40 milligram p.o. daily, monitor urine output next 24 hours, aim for net negative, eventually she may needs to be on Lasix 40 twice a day before discharge -- Document I/O's -- Repeat metabolic profile tomorrow AM --if otherwise stable, can be discharged tomorrow with outpatient follow-up with Dr. Sherman in 2-3 weeks, will need to have lab prior to the visit. (2) Chronic kidney disease with active medical management without dialysis, stage 3 (moderate): -- Baseline creatinine ~1.6 mg/dL -- Multiple episodes of KENDELL consistent with CRS -- Follows with Dr. 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 No acute events overnight. Her breathing has significantly improved. Appetite is poor. She denies nausea, abdominal pain, or constipation. Maureen is concerned about her 's health. She is worried about not being at home. She otherwise feels well. Activity tolerance has improved. Lasix has been on hold since yesterday afternoon however she remained net negative with more than 1 liter negative. Physical Exam Constitutional: WD/WN, vitals as above Neck: trachea midline Respiratory: Auscultation: + rhonchi and + wheezes Cardiovascular: Rate/Rhythm: regular rate and regular rhythm Heart Sounds: normal S1 and normal S2 Neurologic: moves all extremities and awake Psychiatric: A+Ox3, euthymic affect Results & Data Vital Signs (Past 12 Hours) Vital Signs Temp Pulse Pulse Resp BP Pulse Ox 11/20/18 08:00 36.6 C 94 H 88 18 149/82 H 94 11/20/18 07:07 86 18 95 04/29/19 04:00 36.5 C 98 H 20 143/85 H 92 11/19/18 23:54 36.9 C 102 H 20 148/75 H 96 (1) Atrial fibrillation Atrial fibrillation type: paroxysmal Qualified Code(s): I48.0 - Paroxysmal atrial fibrillation (2) CAD (coronary artery disease) Coronary Disease-Associated Artery/Lesion type: [place] artery [place] vs. transplanted heart: [place] heart Associated angina: without angina Qualified Code(s): I25.10 - Atherosclerotic heart disease of [place] coronary artery wi thout angina pectoris
[2018-11-20] MEDS: FUROSEMIDE 40 MG TAB PO SCH (12:51)
[2018-11-20] MEDS: SERTRALINE HCL 50 MG TABLET PO SCH (12:51)
--- NOTE | 2018-11-20 14:44 | Cardiology Progress Note ---
Date of Service November 20, 2018 Assessment & Plan (1) Acute on chronic diastolic heart failure: 2. Multivessel CAD 3. Persistent Afib 4. Acute on chronic renal insufficiency 5. Type 2 DM 6. Hypertension 7. History of subdural hematoma with craniotomy 2017 8. JANICE 9. COPD exacerbation Patient has been diuresing well, down more than 4 L, 4 kg since admission. Mild KENDELL improved, creatinine back near baseline Respiratory status improved, still with some mild congestion on exam. Heart rate reasonably controlled on current carvedilol, amiodarone. Transitioned to daily p.o. diuretics today. If respiratory status stable okay with discharge today/tomorrow with close heart failure follow-up later this week Continue current carvedilol. We will plan to discontinue amiodarone as an outpatient. Continue Eliquis and clopidogrel. Subjective Breathing better. No chest pain. No other new complaints. Tele reviewed -- persistent AF with HR 90-100s Review of Systems Review of Systems: All systems reviewed & are unremarkable except as noted in HPI & below Physical Exam Constitutional: WD/WN, vitals as above Eyes: + anicteric sclerae Respiratory: Auscultation: + crackles (at bases) Cardiovascular: Rate/Rhythm: regular rate and + irregularly irregular Heart Sounds: no murmur Extremities: + edema (1+) Gastrointestinal (Abdomen): Inspection/Auscultation: abdomen not distended Percussion/Palpation: abdomen soft; abdomen nontender Skin: no rashes, warm and dry Neurologic: no focal motor deficits Psychiatric: A+Ox3, euthymic affect Results & Data Vital Signs (Past 12 Hours) Vital Signs Temp Pulse Pulse Resp BP BP Pulse Ox 11/20/18 14:22 11/20/18 12:08 36.8 C 83 18 114/73 90 11/20/18 11:08 101 H 16 98 11/20/18 08:00 36.6 C 94 H 88 18 149/82 H 94 11/20/18 07:07 86 18 95 11/20/18 04:00 36.5 C 98 H 20 143/85 H 92 Pulse Ox Pulse Ox 11/20/18 14:22 94 82 L 11/20/18 12:08 11/20/18 11:08 11/20/18 08:00 11/20/18 07:07 11/20/18 04:00
--- NOTE | 2018-11-20 16:23 | Hospitalist Progress Note ---
Date of Service November 20, 2018 Assessment & Plan (1) COPD with acute exacerbation: slowly improving. change doxycycline from IV to PO. day #5/7 today. continue prednisone. wean over next 7-10 days. cont nebs. cont NC O2. BIPAP HS. pulmonary toilet. Present on Admission?: Yes (2) Acute on chronic diastolic heart failure: echocardiogram this admission with preserved LV function, mild LVH, diastolic dysfunction, and mildly reduced RV function. h/o known apical variant hypertrophic obstructive cardiomyopathy. resume lasix today at 40mg PO daily. (3) Acute and chronic respiratory failure: acute component resolving. see above. (4) Paroxysmal A-fib: Continue Amiodarone 100mg po BID Would increase Carvedilol to 12.5 mg BID due to borderline high rates Continue Eliquis 2.5 mg p.o. twice daily if rates prove difficult to control could increase amiodarone dosing to help maintain NSR (5) CAD (coronary artery disease): No ischemic symptoms today. Cont BB, plavix. previously statin-intolerant. (6) Anxiety: Buspirone 5mg po BID Consider increase adding SSRI due to depression (7) Depression: start SSRI in form of zoloft 25mg daily (8) JANICE treated with BiPAP: -BiPAP qHS (9) Diabetes: control acceptable at this time with lantus & novolog; no changes today (10) HTN (hypertension): cont current medications (11) Chronic kidney disease with active medical management without dialysis, stage 3 (moderate): creatinine stable today / at baseline (12) Thrombocytopenia: stable count today at 108. TSH, B12, folate acceptable. cause? (13) Acute kidney injury: resolved appreciate nephrology consult & recs resume lasix 40mg once daily today (14) DVT prophylaxis: [facility] PT, OT mark needed ok to shower hopefully home tomorrow on Tuesday Subjective tele - a.fib, most rates controlled. she reports depression of several months duration. to her knowledge has never taken an antidepressant. she wants to take a shower. states she needs to get home to take care of various things. she feels she is ready to go home. also reports nausea "for maybe a week or two" and inability to eat because of the nausea. denies abdominal pain. attributes the nausea to stress/anxiety/depression. uses home O2 w/ ambulation only. anxious to get home. Review of Systems Constitutional: no fever Respiratory: + cough, + dyspnea and + wheezing Cardiovascular: no chest pain Gastrointestinal: no abdominal pain Physical Exam Constitutional: well developed, well nourished and + obese; no acute distress ENMT: external ear and nose normal, oropharynx normal Respiratory: no respiratory distress Auscultation: + diminished lung sounds (bases) and + wheezes; no crackles Cardiovascular: Rate/Rhythm: regular rate; + abnormal rhythm (irregular) Heart Sounds: normal S1 and normal S2 Vessels: posterior tibial pulses present and dorsalis pedis pulses present; no JVD Extremities: no edema Gastrointestinal (Abdomen): normal bowel sounds, soft, nontender, no h epatosplenomegaly Psychiatric: Orientation: alert Mood: + anxious mood Results & Data Vital Signs (Past 12 Hours) Vital Signs Temp Pulse Pulse Resp BP BP Pulse Ox 11/20/18 16:17 36.6 C 101 H 20 171/83 H 94 11/20/18 14:22 11/20/18 12:08 36.8 C 83 18 114/73 90 11/20/18 11:08 101 H 16 98 11/20/18 08:00 36.6 C 94 H 88 18 149/82 H 94 11/20/18 07:07 86 18 95 Pulse Ox Pulse Ox 11/20/18 16:17 11/20/18 14:22 94 82 L 11/20/18 12:08 11/20/18 11:08 11/20/18 08:00 11/20/18 07:07 Laboratory Results Laboratory Results - last 24 hr 11/19/18 11/19/18 11/20/18 16:37 20:07 05:36 WBC RBC Hgb Hct MCV MCH MCHC RDW Std Deviation RDW Coeff of Nhi Plt Count MPV Absolute Nucleated RBC Nucleated RBC % (auto) Sodium 144 Potassium 3.7 Chloride 101 Carbon Dioxide 40 H Anion Gap 3.0 BUN 72 H Creatinine 1.63 H D Est Cr Clr Drug Dosing 29.3 Est GFR ( Amer) 34.9 Est GFR (Non-Af Amer) 30.1 BUN/Creatinine Ratio 44.0 H Glucose 80 POC Glucose 159 H 144 H Calcium 8.0 L Magnesium 2.6 H 11/20/18 11/20/18 11/20/18 05:36 07:49 11:22 WBC 9.00 RBC 4.15 L Hgb 12.3 Hct 39.3 MCV 94.7 MCH 29.6 MCHC 31.3 L RDW Std Deviation 55.7 H RDW Coeff of Nhi 16.1 H Plt Count 108 L MPV 12.5 H Absolute Nucleated RBC 0.03 H Nucleated RBC % (auto) 0.3 Sodium Potassium Chloride Carbon Dioxide Anion Gap BUN Creatinine Est Cr Clr Drug Dosing Est GFR ( Amer) Est GFR (Non-Af Amer) BUN/Creatinine Ratio Glucose POC Glucose 96 158 H Calcium Magnesium (1) Diabetes Diabetes mellitus complication status: without complication Diabetes mellitus rodent exterminator insulin use: with rodent exterminator use Diabetes mellitus type: type 2 Qualified Code(s): E11.9 - Type 2 diabetes mellitus without complications; Z79.4 - exterminator helper (current) use of insulin (2) Acute and chronic respiratory failure Respiratory failure complication: hypoxia Qualified Code(s): J96.21 - Acute and chronic respiratory failure with hypoxia (3) CAD (coronary artery disease) Associated angina: without angina Coronary Disease-Associated Artery/Lesion type: [place] artery [place] vs. transplanted heart: [place] heart Qualified Code(s): I25.10 - Atherosclerotic heart disease of [place] coronary artery without angina pectoris (4) HTN (hypertension) Hypertension type: essential hypertension Qualified Code(s): I10 - Essential (primary) hypertension (5) Depression Depression Type: unspecified Qualified Code(s): F32.9 - Major depressive disorder, single episode, unspecified
[2018-11-20] MEDS: DOXYCYCLINE HYCLATE 100 MG CAP PO SCH (18:42)
--- OUTSIDE RECORDS SUMMARY | 2018-11-20 20:27 | External Medical Summary | Continuity of Care Document ---
:1940 Author Name Garrett Angeles, Provider Address Unavailable Unavailable , Care Team Providers Name Role Phone Oliver Gilbert PA-C Unavailable [email or web address] Roe Angeles Unavailable [email or web address] Unavailable [email or web address] Joel MASSEY Unavailable [email or web address] Parish MASSEY Unavailable [email or web address] Esequiel Angeles Unavailable [email or web address] Thuan Sherman M.D. Unavailable [email or web address] Megan YADAV Unavailable Unavailable Unavailable Unavailable Unavailable Problems Lymphoma (202.80) (C85.90) Type 2 diabetes mellitus (250.00) (E11.9) Atrial flutter, paroxysmal (427.32) (I48.92) Dyslipidemia (272.4) (E78.5) Hypertension (401.9) (I10) Nephrolithiasis (592.0) (N20.0) CAD (coronary artery disease) (414.00) (I25.10) AF (atrial fibrillation) (427.31) (I48.91) Diastolic congestive heart failure (428.30) (I50.30) Obstructive hypertrophic cardiomyopathy (425.11) (I42.1) Vertigo (780.4) (R42) Sensory problems with limbs (V49.3) (R20.9) Dizziness (780.4) (R42) 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) Diabetic nephropathy (250.40) (E11.21) Diabetic peripheral neuropathy (250.60) (E11.42) Fibromyalgia (729.1) (M79.7) Multiple sclerosis (340) (G35) Arteriosclerotic cardiovascular disease (ASCVD) (429.2) (I25 .10) Apical variant hypertrophic cardiomyopathy (425.18) (I42.2) Peripheral vascular disease (443.9) (I73.9) Vitamin D deficiency (268.9) (E55.9) Chronic kidney disease, stage 3 (moderate) (585.3) (N18.3) Hypertensive urgency (401.9) (I16.0) Dyspnea on exertion (786.09) (R06.09) Allergies and Adverse Reactions Codeine Derivatives (Allergy) Cortisone POWD (Allergy) Coumadin TABS (Allergy) Gemfibrozil TABS (Allergy) Ibuprofen CAPS (Allergy) Integrilin SOLN (Allergy) Statins (Allergy) Sulfa Drugs (Allergy) Zofran TABS (Allergy) Shellfish (Allergy) Wasp (Allergy) Medications Vitamin D (Ergocalciferol) 93652 UNIT Oral Capsule; on e tablet each month. Bridgette Sherman Start: 07-Sep-2017 Quantity: 4 Refills: 3 Multivitamins TABS; TAKE 1 TABLET DAILY. Refills: 0 B Complex Oral Tablet; TAKE 1 TABLET DAILY. Refills: 0 cloNIDine HCl - 0.1 MG Oral Tablet; TAKE 1 TABLET BY MOUTH EVERY 8 HRS, NEEDED FOR SYSTOLIC BP > OR = 160 mmHg BRYSON Gilbert Start: Quantity: 30 Refills: 5 Lyrica 200 MG Oral Capsule; TAKE 1 CAPSULE BY MOUTH TWICE DA DARSHAN Refills: 0 Carvedilol 6.25 MG Oral Tablet; TAKE 1 T ABLET BY MOUTH TWICE A DAY WITH MORNING AND EVENING MEAL Bridgette Iraheta Start: 13-Apr-2017 Quantity: 180 Refills: 3 Fluticasone Propionate 50 MCG/ACT Nasal Suspension; USE 2 SPRAYS IN EACH NOSTRIL TWICE DAILY. Refills: 0 Furosemide 40 MG Oral Tablet; take 1 tablet by mouth e very other day Bridgette Iraheta Quantity: 30 Refills: 11 Clopidogrel Bisulfate 75 MG Oral Tablet; take 1 tablet by mouth once daily Bridgette Iraheta Quantity: 30 Refills: 5 NovoLOG SOLN; INJECT SUBCUTANEOUSLY DIRECTED. 10 ML Vial Refills: 0 Eliquis 2.5 MG Oral Tablet; Take 1 tablet twice daily BRYSON Lugo Start: 05-Sep-2017 Quantity: 60 Refills: 5 Amiodarone HCl - 100 MG Oral Tablet; TAKE 1 TABLET BY MOUTH TWICE DAILY Bridgette Iraheta Start: 05-Sep-2017 Quantity: 60 Refills: 11 Lantus SOLN; inject 25 units subcutaneously twice daily 10 ML Vial Refills: 0 B-12 1000 MCG Oral Capsule; 1 capsule per day Start: 29-Aug-2014 Refills: 0 Magnesium 400 MG CAPS; 1 pill two times a day Start: 29-Aug-2014 Refills: 0 Nitroglycerin 0.4 MG Sublingual Tablet S ublingual; PLACE 1 TABLET UNDER THE TONGUE EVERY 5 MINUTES FOR UP TO 3 DOSES NEEDED FOR CHEST PAIN.CALL 911 IF PAIN PERSISTS. BRYSON Maldonado Start: 22-Sep-2018 Quantity: 25 Refills: 1 Tylenol Extra Strength 500 MG Oral Tablet; prn Refills: 0 GNP Folic Acid 400 MCG Oral Tablet; TAKE 1 TABLET DAILY D IRECTED. Refills: 0 BD Insulin Syringe Ultrafine 31G X 15/64 " 0.5 ML MISC; use to inject NPH and humalog 4 times a day JEFE Davidson Start: 21-Feb-2014 Quantity: 4 100 Miscellaneous George x Refills: 3 Procedures History of Hysterectomy Status: Complete d History of Knee Arthroplasty Status: Com pleted History of Cataract Surgery Status: Comp leted History of Primary Repair Of Ruptured Achilles Tendon Status: Completed Immunizations Immunizations not documented Family History Mother Family history of Acute Myocardial Infarction (V17.3) Status : Active Father Family history of Diabetes Mellitus (V18.0) Status: Active Brother Family history of Acute Myocardial Infarction (V17.3) Status : Active Social History - Smoking Status Never smoker Plan of Treatment Planned Encounters Appointment; Gregory Au M.D. Start: 01-Mar-2019 13:20 R laraest Planned Observations Planned Goals not documented Results Urine rflx Laboratory: [facility] Laboratory Comments: C ath N Microscopic [address] [place] [address] tel: 08-Nov-2018 12:15 Urine Color Yellow Urine Appearance Clear Range: Clear Urine Specific [place] 1.014 Range: 1.0 00-1.030 Urine Ph 5.0 Range: 4.5-7.5 Urine Protein(Dipstick) 1+ Range: Negat chito (Abnormal) Urine Glucose(Dipstick) Negative Range: Negative Urine Ketones Negative Range: Negative Urine Bilirubin Negative Range: Negativ e URINE BLOOD HGB Negative Range: Negativ e Urobilinogen Negative Range: Negative Nitrite Urine Negative Range: Negative Urine Leukocyte Esterase Trace Range: N egative (Abnormal) Urine Rbc Auto 0-4 {/hpf} Range: 0-4 /h pf Urine Wbc Auto 1-5 {/hpf} Range: 0-5 /h pf Urine Epithelial Cell Auto 10-20 Range: 0-5 /lpf {/lpf} (Abnormal) Urine Cast (Auto) 1-5 {/lpf} Range: 0-5 /lpf Urine Bacteria (Auto) Negative Range: N egative Urine Laboratory: [facility] Laboratory Protein/Creatinine [address] [facility] [address] tel: 08-Nov-2018 12:15 CREATININE RANDOM URINE 48.7 Range: mg/ dl mg/dl Comments: The refere nce interval and other method performancespecifications have not been established for this bodyfluid. The test result must be integrated into the clinicalcontext for interpretation. URINE TOTAL PROTEIN 35.4 mg/dl Range: 0 -11.9 mg/dl (above high threshold) URINE PROTIEN/CREAT RATIO 0.7 Range: 0- 0.2 (above high threshold) Renal Panel Laboratory: [facility] Laboratory [address] [employer] [facility] [employer] [facility] [address] tel: 08-Nov-2018 12:06 SODIUM 144 mmol/L Range: 136-145 mmol /L POTASSIUM 4.2 mmol/L Range: 3.5-5.1 mmo l/L CHLORIDE 108 mmol/L (above high Range: 98-107 mmol/L threshold) CARBON DIOXIDE 31 mmol/L Range: 21-32 m mol/L ANION GAP 5.0 Range: 3-11 BLOOD UREA NITROGEN 34 mg/dl Range: 7-1 8 mg/dl (above high threshold) CREATININE 1.65 mg/dl (above Range: 0.6 -1.2 mg/dl high threshold) Estimated GFR () Comment s: Units: ml/min per 1.73 34.4 meters squaredThe es timated GFR (CKD-EPI equation) h as not been validatedfor inpatie nt settings and may not be an ac curate reflectionof renal f unction in critically ill patie nts or those withrapidly changing renal function (e.g. KENDELL). Estimated GFR (Non- Comments: Uni ts: ml/min per 1.73 Syrian) 29.6 meters squaredThe es timated GFR (CKD-EPI equation) h as not been validatedfor inpatie nt settings and may not be an ac curate reflectionof renal f unction in critically ill patie nts or those withrapidly changing renal function (e.g. KENDELL). BUN/CREATININE RATIO 20.3 (above Range: 10-20 high threshold) GLUCOSE 182 mg/dl (above high Range: 70 -99 mg/dl threshold) CALCIUM 9.6 mg/dl Range: 8.5-10.1 mg/ dl PHOSPHORUS 3.3 mg/dl Range: 2.5-4.9 mg/ dl ALBUMIN 3.4 {gm/dl} Range: 3.4-5.0 gm/d l CBC No Diff Laboratory: [facility] Laboratory [address] [facility] [address] tel: 08-Nov-2018 12:06 WBC 6.63 K/uL Range: 4.8-10.8 K/u L RBC 4.44 {M/uL} Range: 4.2-5.4 M/uL HEMOGLOBIN 13.0 g/dL Range: 12.0-16.0 g /dL HEMATOCRIT 41.9 % Range: 37-47 % MCV 94.4 fL Range: 80-100 fL MCH 29.3 pg Range: 25-34 pg MEAN CORPUSCULAR HGB CONC 31.0 Range: 3 2-36 g/dL g/dL (below low threshold) RED CELL DISTRIBUTION WIDTH SD Range: 3 6.4-46.3 fL 54.8 fL (above high threshold) RED CELL DISTRIBUTION WIDTH CV Range: 1 1.5-14.5 % 15.9 % (above high threshold) PLATELET COUNT 128 K/uL (below Range: 1 30-400 K/uL low threshold) MEAN PLATELET VOLUME 13.3 fL Range: 7.4 -10.4 fL (above high threshold) PLATELET ESTIMATE Normal Range: Normal PTH, Intact Laboratory: [facility] Laboratory [address] [facility] [address] tel: 08-Nov-2018 12:06 PARATHYROID HORMONE INTACT Range: 18. 4-80.1 pg/ml 42.7 pg/ml Vitamin D, Laboratory: [facility] Laboratory 25-Hydroxy [address] [place] [address] tel: 08-Nov-2018 12:06 VITAMIN D, 25 HYDROXY 35.8 ng/ml Range: 30-100 ng/ml Comments: Deficient: <20 ng/mLInsufficient: 20-30 ng/mLSufficient: 30-100 ng/mL In-House EKG Laboratory: [facility] Total Component (Pending) 10-Nov-2018 13:43 In-House EKG Total Component [facility] Test Date: [id number] Name: PING VIZCAINO Detment: Room: Gender: Female Hydrodynamics Teacher: SergioOB: 1940 Requested By: Karlie MaldonadoOrder Number: [id number] Reading MD: Mo Iraheta MeasurementsIntervals [place] Rate: 88 P: IN: QRS: 90QRSD: 89 T: 153QT: 365 QTc: 411 Interpretive StatementsATRIAL FIBRILLATIONNONSPECIFIC ST \\T\\ T-WAVE ABNORMALITYABNORMAL ECGComed to ECG 07/19/2018 14:43:07Sinus bradycardia no longer presentPossible ischemia no longer presentElectronically Signed On 11-13-2018 14:58:39 EDT by JEFE MaldonadoElectronically Signed On 11-15-2018 18:30:41 EDT by Mo Iraheta Vital Signs 10-Nov-2018 13:02 Systolic 100 mm[Hg] Diastolic 80 mm[Hg] Heart Rate 80 /min Weight 208 lb BSA Calculated 1.92 m2 BMI Calculated 39.3 kg/m2 Encounters Appointment; Karlie Maldonado PA-C 10-Nov-2018 13:15 Encounter Diagnosis: Problem not documented Appointment; Gregory Au M.D. 06-Sep-2018 16:40 Encounter Diagnosis: Problem not documented Appointment; Karlie Maldonado PA-C 29-Aug-2018 14:30 Encounter Diagnosis: Problem not documented Appointment; Zack Sherman M.D. 21-Jul-2018 13:30 Encounter Diagnosis: Problem not documented Appointment; Charmaine Lugo PA-C 19-Jul-2018 14:00 Encounter Diagnosis: Problem not documented Appointment; Karlie Maldonado PA-C 13-Jul-2018 15:15 Encounter Diagnosis: Problem not documented Appointment; Zack Sherman M.D. 27-Apr-2018 15:00 Encounter Diagnosis: Problem not documented Appointment; Zack Sherman M.D. 16-Mar-2018 15:15 Encounter Diagnosis: Problem not documented Appointment; Mo Iraheta M.D. 05-Jan-2018 15:45 Encounter Diagnosis: Problem not documented Appointment; Oliver Gilbert PA-C 03-Oct-2017 13:00 Encounter Diagnosis: Problem not documented Appointment; Zack Sherman M.D. 07-Sep-2017 14:30 Encounter Diagnosis: Problem not documented Appointment; Oliver Gilbert PA-C 05-Sep-2017 14:00 Encounter Diagnosis: Problem not documented Appointment; Oliver Gilbert PA-C 25-Aug-2017 14:30 Encounter Diagnosis: Problem not documented Appointment; Mo Iraheta M.D. 08-Jul-2017 10:00 Encounter Diagnosis: Problem not documented Appointment; Zack Sherman M.D. 07-Mar-2017 14:30 Encounter Diagnosis: Problem not documented Appointment; Gregory Au M.D. 01-Mar-2019 13:20 Encounter Diagnosis: Problem not documented
[2018-11-20] MEDS: BENZONATATE 100 MG CAPSULE PO PRN (20:33)
[2018-11-20] MEDS: CARVEDILOL 12.5 MG TAB PO SCH (20:36)
[2018-11-20] MEDS: guaiFENesin SUGAR FREE 100 MG/5 ML UDC PO PRN (20:51)
[2018-11-20] MEDS: HEPARIN 100 UNIT/ML 5ML FLUSH IV PRN (20:53)
[2018-11-21] MEDS: ALBUT/IPRATROP 3MG/0.5MG NEB 3 ML VIAL NEB SCH ×3 (03:30→13:09)
[2018-11-21] MEDS: DOXYCYCLINE HYCLATE 100 MG CAP PO SCH (06:37)
[2018-11-21] MEDS: FLUTICASONE PROPIONATE NA SPR 16 GM BTL SCH (07:51)
[2018-11-21] MEDS: AMIODARONE 200 MG TAB PO SCH (07:51)
[2018-11-21] MEDS: CARVEDILOL 12.5 MG TAB PO SCH (07:51)
[2018-11-21] MEDS: FUROSEMIDE 40 MG TAB PO SCH (07:51)
[2018-11-21] MEDS: APIXABAN 2.5 MG TAB PO SCH (07:51)
[2018-11-21] MEDS: FOLIC ACID 400 MCG TAB PO SCH (07:51)
[2018-11-21] MEDS: PREGABALIN 75 MG CAP PO SCH (07:52)
[2018-11-21] MEDS: CLOPIDOGREL BISULFATE 75 MG TAB PO SCH (07:52)
[2018-11-21] MEDS: VITAMIN B COMPLEX TAB PO SCH (07:52)
[2018-11-21] MEDS: SERTRALINE HCL 50 MG TABLET PO SCH (07:52)
[2018-11-21] MEDS: MAGNESIUM OXIDE 400 MG TAB PO SCH (07:52)
[2018-11-21] MEDS: INSULIN GLARGINE SOLOSTAR 100 UNITS/ML 3 ML PEN SQ SCH (07:52)
[2018-11-21] MEDS: predniSONE 20 MG TAB PO SCH (07:52)
[2018-11-21] MEDS: INSULIN ASPART 100 UNITS/ML 3 ML PEN SC SCH ×2 (07:53→12:18)
--- NOTE | 2018-11-21 08:37 | Cardiology Progress Note ---
Date of Service November 21, 2018 Assessment & Plan (1) Acute on chronic diastolic heart failure: 2. Multivessel CAD 3. Persistent Afib 4. Acute on chronic renal insufficiency 5. Type 2 DM 6. Hypertension 7. History of subdural hematoma with craniotomy 2016 8. JANICE 9. COPD exacerbation Near euvolemic. Respiratory status improved. HR stable on current therapy. From a cardiac standpoint OK for discharge today. -- Home on lasix 40mg daily -- continue clopidogrel, eliquis 2.5 bid -- continue current carvedilol, amiodarone. will likely stop amio an outpatient. Follow-up with me in next 1-2 weeks. Subjective Upset overnight about not going home. Concerned mad at her. Some hypoglycemia this morning with sugars to 60s, with this felt nauseated. Breathing feels better. Denies chest pain. Tele reviewed -- AF 90-100s Review of Systems Review of Systems: All systems reviewed & are unremarkable except as noted in HPI & below Physical Exam Constitutional: WD/WN, vitals as above Eyes: + anicteric sclerae Respiratory: Auscultation: + crackles (few at bases) Cardiovascular: Rate/Rhythm: regular rate and + irregularly irregular Heart Sounds: no murmur Extremities: + edema (trace) Gastrointestinal (Abdomen): Inspection/Auscultation: abdomen not distended Percussion/Palpation: abdomen soft; abdomen nontender Skin: no rashes, warm and dry Neurologic: no focal motor deficits Psychiatric: A+Ox3, euthymic affect Results & Data Vital Signs (Past 12 Hours) Vital Signs Temp Pulse Pulse Resp BP Pulse Ox 11/21/18 07:35 36.5 C 76 18 145/94 H 94 11/21/18 04:35 36.5 C 67 18 123/78 96 11/21/18 03:30 103 H 18 96 11/20/18 23:10 36.4 C L 82 20 118/85 95 11/20/18 23:08 90 15 95
[2018-11-21] MEDS: HEPARIN 100 UNIT/ML 5ML FLUSH IV PRN (08:39)
[2018-11-21 09:06] LABS: Albumin Level 2.8 gm/dl (3.4-5.0); BUN Creatinine Ratio 40.4 (10-20); Calcium 8.2 mg/dl (8.5-10.1); Creatinine Clr Calc Pharmacy 27.7 ml/min; Est GFR (African American) 32.7; Est GFR (Non-African American) 28.2; Potassium 3.9 mmol/L (3.5-5.1)
[2018-11-21 09:07] LABS: Phosphorus 2.9 mg/dl (2.5-4.9)
--- NOTE | 2018-11-21 09:16 | Psychiatric Consultation ---
Date of Consultation November 21, 2018 Impression / Recommendations Impression 78-year-old woman admitted with acute on chronic heart failure. We are consulted to evaluate possible depression and delusions. She admits that she is frustrated being in the hospital and wants only to be able to go home. She says that she had a "meltdown" yesterday and threatened to walk home. She understands that she has been kept in the hospital due to her medical conditions and today seems much more reasonable. She would like to go home as soon as possible as she misses her dog, her home and her . I find no evidence of delusions, saying only that her is at home doing the very think she would like to be doing. Her mood is not depressed but she does admit to a history of chronic anxiety. All in all she is quite reasonable in conversation, reality based and one can certainly sympathize with not wanting to stay in the hospital very long. She is currently on BuSpar 5 mg twice daily and has recently been started on Zoloft 25 mg daily. Although I do not object to starting her on an antidepressant as this will clearly help to improve her medical outcomes over time however I am not sure that she meets criteria for severe depression that would benefit from an antidepressant. I see no reason that she should be kept in the hospital psychiatrically. Inventory Assets Strengths: Love of her her home and her dog Needs: Healthy coping strategies Risk Factors Assessment Male: No : Yes Health Problems: Yes Mental Health Diagnoses: Yes Substance Use Disorders: No Previous Attempt: No Smoker: No Protective Factors Assessment : Yes Responsible for Young Children: No Employed: No Stable Relationships: Yes Supportive Family: Yes CPT Code 40372 Psych History Identifying Data 78 yo female with multiple chronic medical conditions listed below, admitted with acute on chronic heart failure. We are consulted to evaluate depression and possible delusions. Informatuion is gathered from the patient and considered to be reliable. Chief Complaint "Oh honey, I'm fine. ". History of Present Illness 78-year-old woman with multiple chronic medical conditions including MS, hy pertension, paroxysmal atrial fib, chronic kidney disease, chronic heart failure, coronary artery disease, obstructive sleep apnea, and diabetes, presented to the ED at the recommendation of her PCP due to a weeklong course of worsening cough, lower extremity edema. She was found to have acute on chronic heart failure and admitted medically. She has been improving slowly and has wanted to go home almost since the day of admission. She describes feeling like they tell her she will be discharged and then they postpone it. She admits that she has been increasingly frustrated and yesterday had a "meltdown" and wanted to go home. She threatened to walk down the [place] to get home and was making statements that her was leaving the easier life at home while she was in the hospital. This raises concerns that she may be delusional and a consult was requested. At the time I see the patient she is seated at the bedside finishing her breakfast. She is alert and cooperative. She is fully oriented. She admits that she has been frustrated and simply wants to be able to go home and see her dog and take care of her house. She says that she is 78 years old and has had multiple problems medically in the past including cancer and so has no idea how much longer she has to live, and therefore wants to leave it to the fullest at her home and not in the hospital. She understands that medically she has been kept in the hospital due to her heart failure, but wishes with all of her heart to be able to go home. 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 She appreciates it but she wants to be able to be at home and help with those things herself. She denies having any auditory or visual hallucinations and her conversation is completely reasonable. She says that her mood is "fine" and denies any suicidal thinking. Her sleep is excessive, with multiple naps during the day. She reports good appetite although says that she is sick of hospital food despite the fact that she thinks that it is good. She admits to some chronic worry having been in psychiatric treatment years ago for anxiety. She says that she has learned to like herself and accept her lot in life which has significantly reduced her anxiety. She says that she has been on medications in the past, cannot remember what, but does not think she needs them at this time. Past Psychiatric History Previous Psych History: Years ago had been in therapy at the psych clinic Current Psychiatric Diagnosis: Anxiety Outpatient Services: None History of Previous Suicide Attempt: No Past Medication Trials: Multiple but she cannot remember what Allergies Allergy/AdvReac Type Severity Reaction Status Date / Time eptifibatide Allergy Severe ANAPHYLAXIS Verified 11/15/18 14:59 hornet venom Allergy Severe WASP VENOM Verified 11/15/18 14:59 PROTEIN-ANAPHYLAXIS levofloxacin [From Levaquin] Allergy Severe Hives Verified 11/15/18 14:59 mivacurium Allergy Intermediate palpatation Verified 11/15/18 14:59 s atorvastatin Allergy Unknown MUSCLE PAIN Verified 11/15/18 14:59 ezetimibe Allergy Unknown MUSCLE PAIN Verified 11/15/18 14:59 simvastatin Allergy Unknown MUSCLE PAIN Verified 11/15/18 14:59 amlodipine AdvReac Severe Nausea Verified 11/15/18 14:59 warfarin AdvReac Intermediate EXTREME Verified 11/15/18 14:59 BLEEDING TIMES codeine AdvReac Mild VOMITING Verified 11/15/18 14:59 gemfibrozil AdvReac Mild NAUSEA Verified 11/15/18 14:59 meperidine AdvReac Mild VOMITING Verified 11/15/18 14:59 ondansetron AdvReac Mild vomiting Verified 11/15/18 14:59 ranitidine [From Zantac] AdvReac Mild dyspepsia Verified 11/15/18 14:59 cortisone AdvReac Unknown INCREASES Verified 11/15/18 14:59 SUGAR AND VOMITING? hydralazine AdvReac Unknown VOMITING Verified 11/15/18 14:59 ibuprofen AdvReac Unknown VOMITING Verified 11/15/18 14:59 AND DIARRHEA iodine AdvReac Unknown SHELLFISH Verified 11/15/18 14:59 - VOMITING shellfish derived AdvReac Unknown VOMITING Verified 11/15/18 14:59 Sulfa (Sulfonamide AdvReac Unknown VOMITING Verified 11/15/18 14:59 Antibiotics) Home Medications Home Medications Medication Instructions Recorded Confirmed Type Combivent Respimat 1 puff INHALATION Q6H PRN 06/20/18 11/15/18 History Lyrica 200 mg PO BID 06/20/18 11/15/18 History Novolog U-100 Insulin aspart 11 unit SUBCUT QAM 06/20/18 11/15/18 History Novolog U-100 Insulin aspart 18 unit SUBCUT LD 06/20/18 11/15/18 History Novolog U-100 Insulin aspart 26 unit SUBCUT QPM 06/20/18 11/15/18 History Zioptan (PF) 1 drp OPB DAILY 06/20/18 11/15/18 History amiodarone [Pacerone] 100 mg PO BID 06/20/18 11/15/18 History ascorbic acid (vitamin C) [Vitamin 1 g PO DAILY 06/20/18 11/15/18 History C] buspirone 5 mg PO BID 06/20/18 11/15/18 History ergocalciferol (vitamin D2) 50,000 unit PO MONTHLY 06/20/18 11/15/18 History [Vitamin D2] folic acid 800 mcg PO DAILY 06/20/18 11/15/18 History furosemide [Lasix] 40 mg PO Q OTHER DAY 06/20/18 11/15/18 History magnesium oxide [MagOx] 400 mg PO BID 06/20/18 11/15/18 History multivitamin 1 tab PO DAILY 06/20/18 11/15/18 History vitamin B complex 1 tab PO DAILY 06/20/18 11/15/18 History Eliquis 2.5 mg PO BID 07/09/18 11/15/18 History clopidogrel 75 mg PO QAM #30 tab 07/09/18 11/15/18 Rx Lantus Solostar U-100 Insulin 20 unit SUBCUT BID #0 ml 08/15/18 11/15/18 Rx amoxicillin 2,000 mg PO UD 09/14/18 11/15/18 History carvedilol 6.25 mg PO BID 11/15/18 11/15/18 History Family History Not applicable Substance Abuse History Occasional small glass of wine Personal History Living Arrangements: Home Highest Grade Completed: High School Graduate Employment Status: Retired Marital Status: Number Of Children: 3 Beliefs That Will Affect Care: None Patient History Medical History JANICE treated with BiPAP Atrial fibrillation CAD (coronary artery disease) Myocardial infarction Peripheral neuropathy (Chronic) Diabetes (Chronic) HTN (hypertension) (Chronic) Diastolic CHF Dyslipidemia Hypertrophic cardiomyopathy apical variant CKD (chronic kidney disease) stage 3, GFR 30-59 ml/min Diffuse large B-cell lymphoma of extranodal site (~08/2012) Respiratory failure Chronic-on 2-3L O2 at home Surgical History S/P cardiac catheterization S/P hysterectomy S/P tonsillectomy Family History Other Cancer Diabetes Gallbladder disease Heart disease Hypertension Kidney stones Social History Preferred Language: Welsh Communication Ability: Effective 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 Beliefs That Will Affect Care: None marital status: Current Living Situation: Spouse 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: Retired/Disabled Other Information That Helps Us Care for You: No Feels Safe at Home: Yes Safety Concerns: Feels Safe At This Time Smoking Status: Never smoker Do You Dip or Chew Tobacco: No Second Hand Exposure: No Hx Alcohol Use: No Hx Substance Use: No Physical Exam Psychiatric: Orientation: alert, oriented x 3 and cooperative Apperance: appropriately dressed and appropriately groomed Eye Contact: good eye contact Motor Behavior: no abnormal motor movements Speech: normal rate/rhy thm/volume of speech Affect: euthymic affect Mood: no depressed mood and no anxious mood Thought Process: goal directed thought process Thought Content: reality based without delusions Suicidal Thoughts: denies suicidal thoughts Homicidal Thoughts: denies homicidal thoughts Hallucinations: no auditory hallucinations and no visual hallucinations Cognition: recent memory grossly intact, remote memory grossly intact, attention grossly intact and language grossly intact Estimated Intelligence: consistent with education level Insight: + fair insight Judgement: + fair judgement Vital Signs (Past 24 Hours): Last Vital Signs Temp 36.5 C 11/21/18 07:35 Pulse 76 11/21/18 07:35 Resp 18 11/21/18 07:35 BP 145/94 H 11/21/18 07:35 Pulse Ox 94 11/21/18 07:35 Review of Systems All systems reviewed & are unremarkable except as noted in HPI & below Constitutional: + malaise Respiratory: + cough Results & Data Medications Administered Albuterol (Duoneb) 3 ml NEB Q4R RAFIA Stop: 12/15/18 19:59 Last Admin: 11/21/18 07:00 Dose: Not Given Documented by: [id number] Admin: 11/21/18 03:30 Dose: 3 ml Documented by: [id number] Admin: 11/20/18 23:08 Dose: 3 ml Documented by: [id number] Admin: 11/20/18 19:23 Dose: Not Given Documented by: [id number] Admin: 11/20/18 15:01 Dose: Not Given Documented by: [id number] Admin: 11/20/18 11:09 Dose: Not Given Documented by: [id number] Admin: 11/20/18 07:06 Dose: 3 ml Documented by: [id number] Admin: 11/20/18 03:15 Dose: Not Given Documented by: [id number] Admin: 11/19/18 22:57 Dose: Not Given Documented by: [id number] Admin: 11/19/18 19:16 Dose: 3 ml Documented by: [id number] Admin: 11/19/18 15:24 Dose: Not Given Documented by: [id number] Admin: 11/19/18 11:05 Dose: Not Given Documented by: [id number] Admin: 11/19/18 07:22 Dose: 3 ml Documented by: [id number] Admin: 11/19/18 03:47 Dose: Not Given Documented by: [id number] Admin: 11/18/18 23:02 Dose: 3 ml Documented by: [id number] Admin: 11/18/18 19:25 Dose: 3 ml Documented by: [id number] Admin: 11/18/18 15:28 Dose: 3 ml Documented by: [id number] Admin: 11/18/18 11:19 Dose: 3 ml Documented by: [id number] Admin: 11/18/18 07:21 Dose: 3 ml Documented by: [id number] Admin: 11/18/18 03:30 Dose: Not Given Documented by: [id number] Admin: 11/17/18 23:04 Dose: Not Given Documented by: [id number] Admin: 11/17/18 18:52 Dose: Not Given Documented by: [id number] Admin: 11/17/18 15:15 Dose: Not Given Documented by: [id number] Admin: 11/17/18 11:11 Dose: 3 ml Documented by: [id number] Admin: 11/17/18 07:26 Dose: 3 ml Documented by: [id number] Admin: 11/17/18 03:13 Dose: Not Given Documented by: [id number] Admin: 11/16/18 23:14 Dose: Not Given Documented by: [id number] Admin: 11/16/18 18:45 Dose: 3 ml Documented by: [id number] Admin: 11/16/18 15:42 Dose: Not Given Documented by: [id number] Admin: 11/16/18 11:14 Dose: 3 ml Documented by: [id number] Admin: 11/16/18 07:20 Dose: 3 ml Documented by: [id number] Admin: 11/16/18 03:29 Dose: 3 ml Documented by: [id number] Admin: 11/15/18 23:08 Dose: 3 ml Documented by: [id number] Admin: 11/15/18 19:35 Dose: 3 ml Documented by: [id number] Albuterol (Ventolin 0.5% 2.5mg/0.5ml) 2.5 mg NEB Q2H PRN PRN Reason: SOB/Wheeze Stop: 12/15/18 19:05 Last Admin: 11/18/18 04:00 Dose: 2.5 mg Documented by: [id number] Amiodarone HCl (Cordarone) 100 mg PO BID RAFIA Stop: 12/15/18 20:59 Last Admin: 11/21/18 07:51 Dose: 100 mg Documented by: [id number] Admin: 11/20/18 20:34 Dose: 100 mg Documented by: [id number] Admin: 11/20/18 08:06 Dose: 100 mg Documented by: [id number] Admin: 11/19/18 20:09 Dose: 100 mg Documented by: [id number] Admin: 11/19/18 08:21 Dose: 100 mg Documented by: [id number] Admin: 11/18/18 20:51 Dose: 100 mg Documented by: [id number] Admin: 11/18/18 08:05 Dose: 100 mg Documented by: [id number] Admin: 11/17/18 20:45 Dose: 100 mg Documented by: [id number] Admin: 11/17/18 08:09 Dose: 100 mg Documented by: [id number] Admin: 11/16/18 21:21 Dose: 100 mg Documented by: [id number] Admin: 11/16/18 08:13 Dose: 100 mg Documented by: [id number] Admin: 11/15/18 21:50 Dose: 100 mg Documented by: [id number] Apixaban (Eliquis) 2.5 mg PO BID RAFIA Stop: 12/15/18 20:59 Last Admin: 11/21/18 07:51 Dose: 2.5 mg Documented by: [id number] Admin: 11/20/18 20:36 Dose: 2.5 mg Documented by: [id number] Admin: 11/20/18 08:07 Dose: 2.5 mg Documented by: [id number] Admin: 11/19/18 20:10 Dose: 2.5 mg Documented by: [id number] Admin: 11/19/18 08:22 Dose: 2.5 mg Documented by: [id number] Admin: 11/18/18 20:52 Dose: 2.5 mg Documented by: [id number] Admin: 11/18/18 08:05 Dose: 2.5 mg Documented by: [id number] Admin: 11/17/18 20:47 Dose: 2.5 mg Documented by: [id number] Admin: 11/17/18 08:10 Dose: 2.5 mg Documented by: [id number] Admin: 11/16/18 21:22 Dose: 2.5 mg Documented by: [id number] Admin: 11/16/18 08:13 Dose: 2.5 mg Documented by: [id number] Admin: 11/15/18 21:50 Dose: 2.5 mg Documented by: [id number] Benzonatate (Tessalon Perle) 100 mg PO Q6 PRN PRN Reason: Cough Stop: 12/16/18 15:51 Last Admin: 11/20/18 20:33 Dose: 100 mg Documented by: [id number] Admin: 11/19/18 08:22 Dose: 100 mg Documented by: [id number] Admin: 11/17/18 08:09 Dose: 100 mg Documented by: [id number] Admin: 11/16/18 16:22 Dose: 100 mg Documented by: [id number] Buspirone HCl (Buspar) 5 mg PO BID RAFIA Stop: 12/15/18 20:59 Last Admin: 11/21/18 07:51 Dose: 5 mg Documented by: [id number] Admin: 11/20/18 20:35 Dose: 5 mg Documented by: [id number] Admin: 11/20/18 08:06 Dose: 5 mg Documented by: [id number] Admin: 11/19/18 20:10 Dose: 5 mg Documented by: [id number] Admin: 11/19/18 08:22 Dose: 5 mg Documented by: [id number] Admin: 11/18/18 20:52 Dose: 5 mg Documented by: [id number] Admin: 11/18/18 08:06 Dose: 5 mg Documented by: [id number] Admin: 11/17/18 20:45 Dose: 5 mg Documented by: [id number] Admin: 11/17/18 08:09 Dose: 5 mg Documented by: [id number] Admin: 11/16/18 21:21 Dose: 5 mg Documented by: [id number] Admin: 11/16/18 08:13 Dose: 5 mg Documented by: [id number] Admin: 11/15/18 21:49 Dose: 5 mg Documented by: [id number] Carvedilol (Coreg) 12.5 mg PO BID RAFIA Stop: 12/20/18 20:59 Last Admin: 11/21/18 07:51 Dose: 12.5 mg Documented by: [id number] Admin: 11/20/18 20:36 Dose: 12.5 mg Documented by: [id number] Clopidogrel Bisulfate (Plavix) 75 mg PO QAM RAFIA Stop: 12/16/18 08:59 Last Admin: 11/21/18 07:52 Dose: 75 mg Documented by: [id number] Admin: 11/20/18 08:07 Dose: 75 mg Documented by: [id number] Admin: 11/19/18 08:21 Dose: 75 mg Documented by: [id number] Admin: 11/18/18 08:05 Dose: 75 mg Documented by: [id number] Admin: 11/17/18 08:08 Dose: 75 mg Documented by: [id number] Admin: 11/16/18 08:13 Dose: 75 mg Documented by: [id number] Doxycycline Hyclate (Vibramycin) 100 mg PO Q12H RAFIA Stop: 11/24/18 18:59 Last Admin: 11/21/18 06:37 Dose: 100 mg Documented by: [id number] Admin: 11/20/18 18:42 Dose: 100 mg Documented by: [id number] Fluticasone Propionate (Flonase) 2 sprays NA DAILY RAFIA Stop: 12/16/18 18:44 Last Admin: 11/21/18 07:51 Dose: 2 sprays Documented by: [id number] Admin: 11/20/18 08:07 Dose: 2 sprays Documented by: [id number] Admin: 11/19/18 08:25 Dose: 2 sprays Documented by: [id number] Admin: 11/18/18 08:07 Dose: 2 sprays Documented by: [id number] Admin: 11/17/18 08:08 Dose: 2 sprays Documented by: [id number] Admin: 11/16/18 19:42 Dose: 2 sprays Documented by: [id number] Folic Acid (Folvite) 800 mcg PO DAILY RAFIA Stop: 12/16/18 08:59 Last Admin: 11/21/18 07:51 Dose: 800 mcg Documented by: [id number] Admin: 11/20/18 08:07 Dose: 800 mcg Documented by: [id number] Admin: 11/19/18 08:22 Dose: 800 mcg Documented by: [id number] Admin: 11/18/18 08:06 Dose: 800 mcg Documented by: [id number] Admin: 11/17/18 08:09 Dose: 800 mcg Documented by: [id number] Admin: 11/16/18 08:13 Dose: 800 mcg Documented by: [id number] Furosemide (Lasix) 40 mg PO DAILY RAFIA Stop: 12/20/18 11:44 Last Admin: 11/21/18 07:51 Dose: 40 mg Documented by: [id number] Admin: 11/20/18 12:51 Dose: 40 mg Documented by: [id number] Guaifenesin (Robitussin Sugar Free Syrup) 100 mg PO Q6H PRN PRN Reason: Cough Stop: 12/15/18 19:05 Last Admin: 11/20/18 20:51 Dose: 100 mg Documented by: [id number] Admin: 11/16/18 08:13 Dose: 100 mg Documented by: [id number] Admin: 11/15/18 21:54 Dose: 100 mg Documented by: [id number] Heparin Sodium (Porcine) (Heparin Sod 100 Unit/Ml Flush) 5 ml IV PRN PRN PRN Reason: Flush Stop: 12/16/18 08:38 Last Admin: 11/21/18 08:39 Dose: 5 ml Documented by: [id number] Admin: 11/20/18 20:53 Dose: 5 ml Documented by: [id number] Admin: 11/19/18 20:17 Dose: 5 ml Documented by: [id number] Admin: 11/18/18 20:54 Dose: 5 ml Documented by: [id number] Admin: 11/18/18 08:16 Dose: 5 ml Documented by: [id number] Admin: 11/17/18 20:34 Dose: 5 ml Documented by: [id number] Admin: 11/17/18 15:34 Dose: 5 ml Documented by: [id number] Admin: 11/17/18 12:21 Dose: 5 ml Documented by: [id number] Admin: 11/17/18 08:11 Dose: 5 ml Documented by: [id number] Admin: 11/17/18 02:04 Dose: 5 ml Documented by: [id number] Admin: 11/16/18 22:02 Dose: 5 ml Documented by: [id number] Insulin Aspart (Novolog Flexpen) 0 units SC ACHS RAFIA Stop: 12/15/18 20:59 Last Admin: 11/21/18 07:53 Dose: 5 units Documented by: [id number] Cosigned by: [id number] Admin: 11/20/18 20:38 Dose: 1 units Documented by: [id number] Cosigned by: [id number] Admin: 11/20/18 17:24 Dose: Not Given Documented by: [id number] Cosigned by: [id number] Admin: 11/20/18 12:51 Dose: 7 units Documented by: [id number] Cosigned by: [id number] Admin: 11/20/18 08:07 Dose: 6 units Documented by: [id number] Cosigned by: [id number] Admin: 11/19/18 20:12 Dose: Not Given Documented by: [id number] Cosigned by: [id number] Admin: 11/19/18 17:14 Dose: 6 units Documented by: [id number] Cosigned by: [id number] Admin: 11/19/18 12:26 Dose: 13 units Documented by: [id number] Cosigned by: [id number] Admin: 11/19/18 08:23 Dose: 14 units Documented by: [id number] Cosigned by: [id number] Admin: 11/18/18 20:56 Dose: 2 units Documented by: [id number] Cosigned by: [id number] Admin: 11/18/18 16:56 Dose: 11 units Documented by: [id number] Cosigned by: [id number] Admin: 11/18/18 14:04 Dose: 10 units Documented by: [id number] Cosigned by: [id number] Admin: 11/18/18 08:11 Dose: 11 units Documented by: [id number] Cosigned by: [id number] Admin: 11/17/18 20:47 Dose: 6 units Documented by: [id number] Cosigned by: [id number] Admin: 11/17/18 17:53 Dose: 21 units Documented by: [id number] Cosigned by: [id number] Insulin Glargine (Lantus Solostar Pen) 30 units SQ BID RAFIA Stop: 12/17/18 20:59 Last Admin: 11/21/18 07:52 Dose: 30 units Documented by: [id number] Cosigned by: [id number] Admin: 11/20/18 20:40 Dose: 30 units Documented by: [id number] Cosigned by: [id number] Admin: 11/20/18 08:07 Dose: 30 units Documented by: [id number] Cosigned by: [id number] Admin: 11/19/18 20:13 Dose: 30 units Documented by: [id number] Cosigned by: [id number] Admin: 11/19/18 08:23 Dose: 30 units Documented by: [id number] Cosigned by: [id number] Admin: 11/18/18 20:53 Dose: 30 units Documented by: [id number] Cosigned by: [id number] Admin: 11/18/18 08:08 Dose: 30 units Documented by: [id number] Cosigned by: [id number] Admin: 11/17/18 20:48 Dose: 30 units Documented by: [id number] Cosigned by: [id number] Magnesium Oxide (Mag-Ox) 400 mg PO BID RAFIA Stop: 12/15/18 20:59 Last Admin: 11/21/18 07:52 Dose: 400 mg Documented by: [id number] Admin: 11/20/18 20:36 Dose: 400 mg Documented by: [id number] Admin: 11/20/18 08:06 Dose: 400 mg Documented by: [id number] Admin: 11/19/18 20:12 Dose: 400 mg Documented by: [id number] Admin: 11/19/18 08:22 Dose: 400 mg Documented by: [id number] Admin: 11/18/18 20:54 Dose: 400 mg Documented by: [id number] Admin: 11/18/18 08:06 Dose: 400 mg Documented by: [id number] Admin: 11/17/18 20:45 Dose: 400 mg Documented by: [id number] Admin: 11/17/18 08:10 Dose: 400 mg Documented by: [id number] Admin: 11/16/18 21:22 Dose: 400 mg Documented by: [id number] Admin: 11/16/18 08:13 Dose: 400 mg Documented by: [id number] Admin: 11/15/18 21:51 Dose: 400 mg Documented by: [id number] Menthol (Nice) 1 che BUCCAL NOW PRN PRN Reason: Sore Throat Stop: 12/16/18 15:51 Last Admin: 11/16/18 16:22 Dose: 1 che Documented by: [id number] Miscellaneous (Order Awaiting Action) 1 ea N/A QS RAFIA Stop: 12/16/18 00:00 Last Admin: 11/21/18 07:46 Dose: Not Given Documented by: [id number] Admin: 11/21/18 00:25 Dose: Not Given Documented by: [id number] Admin: 11/20/18 16:04 Dose: Not Given Documented by: [id number] Admin: 11/20/18 08:02 Dose: Not Given Documented by: [id number] Admin: 11/19/18 23:08 Dose: Not Given Documented by: [id number] Admin: 11/19/18 12:22 Dose: Not Given Documented by: [id number] Admin: 11/19/18 08:25 Dose: Not Given Documented by: [id number] Admin: 11/18/18 23:32 Dose: Not Given Documented by: [id number] Admin: 11/18/18 16:55 Dose: Not Given Documented by: [id number] Admin: 11/18/18 08:23 Dose: Not Given Documented by: [id number] Admin: 11/18/18 00:04 Dose: Not Given Documented by: [id number] Admin: 11/17/18 15:35 Dose: Not Given Documented by: [id number] Admin: 11/17/18 08:04 Dose: Not Given Documented by: [id number] Admin: 11/17/18 00:00 Dose: Not Given Documented by: [id number] Admin: 11/16/18 15:00 Dose: Not Given Documented by: [id number] Admin: 11/16/18 07:59 Dose: Not Given Documented by: [id number] Admin: 11/16/18 00:53 Dose: Not Given Documented by: [id number] Miscellaneous (Carbohydrates For Hypoglycemia) 15 - 30 gm PO UD PRN PRN Reason: Hypoglycemia Treatment Stop: 12/15/18 19:05 Last Admin: 11/21/18 07:45 Dose: 15 gm Documented by: [id number] Prednisone (Prednisone) 60 mg PO QAM RAFIA Stop: 12/20/18 08:59 Last Admin: 11/21/18 07:52 Dose: 60 mg Documented by: [id number] Admin: 11/20/18 08:07 Dose: 60 mg Documented by: [id number] Pregabalin (Lyrica) 75 mg PO BID RAFIA Stop: 12/17/18 20:59 Last Admin: 11/21/18 07:52 Dose: 75 mg Documented by: [id number] Admin: 11/20/18 20:44 Dose: 75 mg Documented by: [id number] Admin: 11/20/18 08:07 Dose: 75 mg Documented by: [id number] Admin: 11/19/18 20:15 Dose: 75 mg Documented by: [id number] Admin: 11/19/18 08:57 Dose: 75 mg Documented by: [id number] Admin: 11/18/18 20:54 Dose: 75 mg Documented by: [id number] Admin: 11/18/18 08:14 Dose: 75 mg Documented by: [id number] Admin: 11/17/18 20:51 Dose: 75 mg Documented by: [id number] Sertraline HCl (Zoloft) 25 mg PO QAM RAFIA Stop: 12/20/18 11:59 Last Admin: 11/21/18 07:52 Dose: 25 mg Documented by: [id number] Admin: 11/20/18 12:51 Dose: 25 mg Documented by: [id number] Vitamin B Complex (Vitamin B Complex) 1 tab PO DAILY RAFIA Stop: 12/16/18 08:59 Last Admin: 11/21/18 07:52 Dose: 1 tab Documented by: [id number] Admin: 11/20/18 08:07 Dose: 1 tab Documented by: [id number] Admin: 11/19/18 08:22 Dose: 1 tab Documented by: [id number] Admin: 11/18/18 08:07 Dose: 1 tab Documented by: [id number] Admin: 11/17/18 08:09 Dose: 1 tab Documented by: [id number] Admin: 11/16/18 08:13 Dose: 1 tab Documented by: [id number]
--- NOTE | 2018-11-21 10:25 | Nephrology Progress Note ---
Date of Service November 21, 2018 Assessment & Plan (1) Acute kidney injury: -- renal function staying relatively stable, creatinine close to baseline, however BUN remained elevated. Her volume status improved and she has been net negative --continue Lasix at 40 milligram p.o. daily -- Document I/O's -- Repeat metabolic profile tomorrow AM --if otherwise stable, can be discharged with outpatient follow-up with Dr. Sherman in 2-3 weeks, will need to have lab prior to the visit. --patient has significant risk for progressive worsening of renal function or recurrent acute kidney injury, will need close monitoring, diuretics should be managed by the heart failure clinic. 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 She reports having nausea after she was found to be hypoglycemic this morning. Reports decent urine output although recorded I/O shows decreased urine output as she was not able to collect all her urine. Renal function staying relatively stable although BUN remained significantly elevated, electrolyte acceptable. Physical Exam Constitutional: WD/WN, vitals as above Neck: trachea midline Respiratory: Auscultation: + rhonchi and + wheezes Cardiovascular: Rate/Rhythm: regular rate and regular rhythm Heart Sounds: normal S1 and normal S2 Extremities: + edema Neurologic: moves all extremities and awake Psychiatric: A+Ox3, euthymic affect Results & Data Vital Signs (Past 12 Hours) Vital Signs Temp Pulse Pulse Pulse Resp BP Pulse Ox 11/21/18 08:00 81 11/21/18 07:35 36.5 C 76 18 145/94 H 94 11/21/18 04:35 36.5 C 67 18 123/78 96 11/21/18 03:30 103 H 18 96 11/20/18 23:10 36.4 C L 82 20 118/85 95 11/20/18 23:08 90 15 95 (1) Atrial fibrillation Atrial fibrillation type: paroxysmal Qualified Code(s): I48.0 - Paroxysmal atrial fibrillation (2) CAD (coronary artery disease) Coronary Disease-Associated Artery/Lesion type: [place] artery [place] vs. transplanted heart: [place] heart Associated angina: without angina Qualified Code(s): I25.10 - Atherosclerotic heart disease of [place] coronary artery without angina pectoris
[2018-11-21 14:31] LABS: Appearance Urine Clear (Clear); Bacteria Urine Automated Negative (Negative); Bilirubin Urine Negative (Negative); Blood Urine Negative (Negative); Color Urine Yellow; Glucose Urine UA Negative (Negative); Ketones Urine Negative (Negative); Leukocyte Esterase Urine 1+ (Negative); Nitrite Urine Negative (Negative); Protein Urine Negative (Negative); RBC Urine Automated 0-4 /hpf (0-4); Specific Gravity Urine 1.016 (1.000-1.030); Urobilinogen Urine Negative (Negative)
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
== END 2018-11-21 15:02 | disposition home health service (06) | DRG 291 ==
LOC: ED 11:16 → SUATTDRO 17:09 → 2N 17:09
DX: J96.21 Acute and chronic respiratory failure with hypoxia; D69.6 Thrombocytopenia, unspecified; G47.33 Obstructive sleep apnea (adult) (pediatric); Z79.899 Other long term (current) drug therapy; N17.9 Acute kidney failure, unspecified; I42.1 Obstructive hypertrophic cardiomyopathy; J44.1 Chronic obstructive pulmonary disease with (acute) exacerbation; Z99.81 Dependence on supplemental oxygen; I25.10 Atherosclerotic heart disease of native coronary artery without angina pectoris; N18.3 Chronic kidney disease, stage 3 (moderate); Z79.01 Long term (current) use of anticoagulants; I48.0 Paroxysmal atrial fibrillation; E11.22 Type 2 diabetes mellitus with diabetic chronic kidney disease; I13.0 Hypertensive heart and chronic kidney disease with heart failure and stage 1 through stage 4 chronic kidney disease, or unspecified chronic kidney disease; R19.7 Diarrhea, unspecified; Z79.4 Long term (current) use of insulin; F41.9 Anxiety disorder, unspecified; I50.33 Acute on chronic diastolic (congestive) heart failure

== ENCOUNTER 2019-02-12 12:05 | Inpatient (IN) ==
[2019-02-12] MEDS ORDERED: ALBUT/IPRATROP 3MG/0.5MG NEB 3 ML VIAL NEB STA (12:34)
[2019-02-12 12:50] LABS: Albumin Level 3.4 gm/dl (3.4-5.0); BUN Creatinine Ratio 22.4 (10-20); Calcium 8.9 mg/dl (8.5-10.1); Creatinine Clr Calc Pharmacy 22.8 ml/min; Magnesium 1.7 mg/dl (1.8-2.4); Potassium 3.8 mmol/L (3.5-5.1)
[2019-02-12 12:55] LABS: Bilirubin,Total 0.7 mg/dl (0.2-1); Globulin 3.5 gm/dl (2.5-4.0); Total Protein 6.9 gm/dl (6.4-8.2); Troponin I 0.016 ng/ml (0-0.045)
--- NOTE | 2019-02-12 12:56 | XRay Report ---
XR chest 1V portable HISTORY: 78 years-old Female Chest Pain acute atypical chest pain COMPARISON: Chest radiograph 01/18/2019 TECHNIQUE: Portable AP view of the chest FINDINGS: Cardiac silhouette is enlarged, unchanged. Pulmonary vascular congestion with persistent interstitial coarsening. Postoperative changes of the left upper lung. Stable positioning of the left subclavian [id number] catheter. No pneumothorax. Mild blunting of the cost phrenic angles is unchanged and ma y reflect trace pleural effusions. Subsegmental bibasilar opacities suggest atelectasis. Degenerative changes of the shoulders and spine. IMPRESSION: 1. Cardiomegaly with mild pulmonary edema. 2. Suggestion of trace pleural effusions with subsegmental bibasilar opacities. The above report was generated using voice recognition software. It may contain grammatical, syntax o r spelling errors. Electronically signed by: Dipak Tapia M.D. 02/12/2019 12:54 PM
[2019-02-12 13:12] LABS: Hematocrit (blood only) 42.1 % (37-47); Hemoglobin 13.4 g/dL (12.0-16.0); Mean Corpuscular Hgb Conc 31.8 g/dL (32-36); Mean Corpuscular Volume 96.1 fL (80-100); Platelet Count 95 K/uL (130-400); RDW Coefficient of Variation 18.1 % (11.5-14.5); Red Blood Count 4.38 M/uL (4.2-5.4); White Blood Count 4.49 K/uL (4.8-10.8)
[2019-02-12 13:14] LABS: Basophils # (auto) 0.02 K/uL (0-0.2); Basophils % (auto) 0.4 %; Eosinophils # (auto) 0.07 K/uL (0-0.5); Eosinophils % (auto) 1.6 %; Immature Granulocytes # (auto) 0.07 K/uL (0.00-0.02); Immature Granulocytes % (auto) 1.6 %; Lymphocytes # (auto) 0.92 K/uL (1.2-3.4); Lymphocytes % (auto) 20.5 %; Monocytes % (auto) 8.9 %; Neutrophils # (auto) 3.01 K/uL (1.4-6.5); Platelet Estimate Decreased (Normal)
[2019-02-12] MEDS ORDERED: MAGNESIUM SULFATE / D5W 1 GM/100 ML BAG IV ONE (13:41)
[2019-02-12] MEDS ORDERED: MAGNESIUM OXIDE 400 MG TAB PO STA (13:41)
[2019-02-12 14:10] LABS: Partial Thromboplastin Ratio 0.9; Partial Thromboplastin Time 25.6 Seconds (21.0-31.0); Prothrombin Time 10.7 Seconds (9.0-12.0)
[2019-02-12] MEDS ORDERED: NITROGLYCERIN SL 0.4 MG/TAB TAB ONE (14:12)
[2019-02-12] MEDS ORDERED: NITROGLYCERIN SL 0.4 MG/TAB TAB SL STA (14:15)
[2019-02-12] MEDS ORDERED: FUROSEMIDE 40 MG/4 ML VIAL IV STA (14:15)
[2019-02-12] MEDS ORDERED: NITROGLYCERIN 2% OINTMENT 30GM TUBE ONE (14:26)
--- NOTE | 2019-02-12 14:31 | History & Physical Report ---
Date of Service February 12, 2019 Assessment & Plan (1) Paroxysmal A-fib: Apparent recurrence of paroxysmal atrial fibrillation with chest pain this morning. She is now in sinus bradycardia rhythm. Telemetry. Continue amiodarone, metoprolol, Eliquis. Await cardiology consultation Present on Admission?: Yes (2) Angina pectoris: Chest discomfort and shortness of breath consistent with angina pectoris occurred with palpitations this morning. Telemetry. Continue data suraj therapy. Add aspirin therapy and nitrates. Serial troponins. Cardiology consultation Present on Admission?: Yes (3) Acute on chronic diastolic heart failure: IV Lasix every 12 hours. Gautam catheter for accurate intake and output. BNP level is pending Present on Admission?: Yes (4) Chronic kidney disease with active medical management without dialysis, stage 3 (moderate): Monitor intake and output. Serial lab studies (5) Diabetes: ADA diet. Basal glargine insulin. Sliding scale coverage as needed (6) DVT prophylaxis: Continue Eliquis therapy History of Present Illness Chief Complaint: Recurrent palpitations, chest pain, shortness of breath Primary Care Provider: Lizet Jeter, 78-year-old female with known coronary artery disease and paroxysmal atrial fibrillation. She recently underwent cardioversion procedure. Today while at rest after awakening she developed palpitations accompanied by chest pain and shortness of breath. She describes the chest discomfort as pressure-like and nonradiating. EMS was summoned and they gave her a series of sublingual nitroglycerin tablets and her symptoms completely resolved. At the time of my examination, she is beginning to have chest discomfort again and repeat sublingual nitroglycerin has been ordered with the addition of topical nitrates. Her EKG at this time reveals sinus bradycardia with [address] segment depression and conduction delay. Initial troponin is normal. The ED physician has discussed case with Dr. Enrico Iraheta who will see the patient later today. She also has clinical evidence of congestive heart failure, probably diastolic. Gautam catheter will be placed and intravenous Lasix started. BNP is pending. Allergies Allergy/AdvReac Type Severity Reaction Status Date / Time eptifibatide Allergy Severe ANAPHYLAXIS Verified 02/12/19 13:28 hornet venom Allergy Severe WASP VENOM Verified 02/12/19 13:28 PROTEIN-ANAPHYLAXIS levofloxacin [From Levaquin] Allergy Severe Hives Verified 02/12/19 13:28 atorvastatin Allergy Unknown MUSCLE PAIN Verified 02/12/19 13:28 ezetimibe Allergy Unknown MUSCLE PAIN Verified 02/12/19 13:28 simvastatin Allergy Unknown MUSCLE PAIN Verified 02/12/19 13:28 amlodipine AdvReac Severe Nausea Verified 02/12/19 13:28 mivacurium AdvReac Intermediate palpatation Verified 02/12/19 13:28 s warfarin AdvReac Intermediate EXTREME Verified 02/12/19 13:28 BLEEDING TIMES codeine AdvReac Mild VOMITING Verified 02/12/19 13:28 gemfibrozil AdvReac Mild NAUSEA Verified 02/12/19 13:28 meperidine AdvReac Mild VOMITING Verified 02/12/19 13:28 ondansetron AdvReac Mild vomiting Verified 02/12/19 13:28 ranitidine [From Zantac] AdvReac Mild dyspepsia Verified 02/12/19 13:28 cortisone AdvReac Unknown INCREASES Verified 02/12/19 13:28 SUGAR AND VOMITING? hydralazine AdvReac Unknown VOMITING Verified 02/12/19 13:28 ibuprofen AdvReac Unknown VOMITING Verified 02/12/19 13:28 AND DIARRHEA iodine AdvReac Unknown SHELLFISH Verified 02/12/19 13:28 - VOMITING shellfish derived AdvReac Unknown VOMITING Verified 02/12/19 13:28 Sulfa (Sulfonamide AdvReac Unknown VOMITING Verified 02/12/19 13:28 Antibiotics) Home Medications Home Medications Medication Instructions Recorded Confirmed Type Combivent Respimat 1 puff INHALATION Q6H PRN 06/20/18 02/12/19 History Novolog U-100 Insulin aspart 11 unit SUBCUT QAM 06/20/18 02/12/19 History Novolog U-100 Insulin aspart 18 unit SUBCUT QDL 06/20/18 02/12/19 History Novolog U-100 Insulin aspart 28 unit SUBCUT QPM 06/20/18 02/12/19 History ascorbic acid (vitamin C) [Vitamin 1 g PO QAM 06/20/18 02/12/19 History C] buspirone 5 mg PO BID 06/20/18 02/12/19 History ergocalciferol (vitamin D2) 50,000 unit PO MONTHLY 06/20/18 02/12/19 History [Vitamin D2] folic acid 800 mcg PO QAM 06/20/18 02/12/19 History multivitamin 1 tab PO QAM 06/20/18 02/12/19 History vitamin B complex 1 tab PO QAM 06/20/18 02/12/19 History Eliquis 2.5 mg PO BID 07/09/18 02/12/19 History clopidogrel 75 mg PO QAM #30 tab 07/09/18 02/12/19 Rx amoxicillin 2,000 mg PO UD 09/14/18 02/12/19 History Lyrica 200 mg PO BID 01/18/19 02/12/19 History furosemide [Lasix] 40 mg PO QAM 01/18/19 02/12/19 History metoprolol tartrate 25 mg PO QAM 01/18/19 02/12/19 History amiodarone 200 mg PO BID 30 Days #60 tab 02/05/19 02/12/19 Rx furosemide 80 mg PO UD PRN 02/12/19 02/12/19 History insulin glargine [Basaglar KwikPen 20 unit SUBCUT BID 02/12/19 02/12/19 History U-100 Insulin] Past Med/Surg History Social History Preferred Language: Setswana Communication Ability: Effective Beliefs That Will Affect Care: None marital status: Current Living Situation: Spouse 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: Retired/Disabled Feels Safe at Home: Yes Smoking Status: Never smoker Second Hand Exposure: No Hx Alcohol Use: No Hx Substance Use: No Review of Systems Review of Systems: Constitutional-no fever or chills ENT-no blurred vision, no double vision, no epistaxis, no sore throat Respiratory-no cough, no wheezing. Shortness of breath as described above with chest discomfort Cardiac-no syncope. Chest discomfort and palpitations as described above GI-no nausea, vomiting, diarrhea, melena, hematochezia -no urinary retention, no urinary incontinence, no dysuria, no hematuria Musculoskeletal-no joint pain, no muscle tenderness Skin-no bruising, no rashes, no pruritus Neuro-no isolated weakness, no paresthesia, no weakness Psych-no depression, no anxiety Physical Exam Physical Exam: General-alert and oriented x3, no fevers, no chills HEENT-head atraumatic and normocephalic, TMs intact bilaterally, pupils equal and reactive to light, extraocular muscles intact Neck-no lymphadenopathy or thyromegaly, trachea midline Chest-bibasilar inspiratory rales. No rhonchi. No dullness to percussion Cardiac-sinus bradycardia in the 50s. Normal S1 and S2. The patient is obese and presence of JVD is difficult to discern Abdomen-normal bowel sounds, nontender, no hepatosplenomegaly Extremities-no cyanosis, clubbing. Mild peripheral edema bilateral lower ex tremities below the knees Neuro-cranial nerves II through XII intact, motor and sensory function within normal limits, strength symmetrical 5/5, no focal deficits Psych-normal affect, normal mood Results & Data Vital Signs (Past 12 Hours) Vital Signs Temp Pulse Pulse Resp BP BP Pulse Ox 02/12/19 14:23 54 L 18 128/63 97 02/12/19 14:14 54 L 16 170/77 H 95 02/12/19 13:31 52 L 20 156/72 H 95 02/12/19 13:03 52 L 18 95 02/12/19 13:01 54 L 12 160/82 H 92 02/12/19 12:45 93 02/12/19 12:05 36.7 C 57 L 16 169/73 H 95 Laboratory Results 02/12/19 11:50 02/12/19 11:50 PG Care Time/CCT Total # of Minutes Spent Total Time Spent with Patient: Total time spent is greater than 50% in coordination of care (as documented) at patient's floor/unit and/or counseling patient: (1) Diabetes Diabetes mellitus type: type 2 Diabetes mellitus head nurse insulin use: with head nurse use Diabetes mellitus complication status: without complication Qualified Code(s): E11.9 - Type 2 diabetes mellitus without complications; 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
[2019-02-12] MEDS ORDERED: MoRPHine SULFATE 2 MG/ML CARP IV PRN (16:00)
[2019-02-12] MEDS ORDERED: IPRATROPIUM BROMIDE/ALBUTEROL respimat INH INH PRN (16:00)
[2019-02-12] MEDS ORDERED: ONDANSETRON INJ 2 MG/ML 2 ML VIAL IV PRN (16:00)
[2019-02-12] MEDS ORDERED: ALUMINUM/MAGNESIUM SUSP 30 ML UDC PO PRN (16:00)
[2019-02-12] MEDS ORDERED: ACETAMINOPHEN 325 MG TAB PO PRN (16:00)
[2019-02-12] MEDS ORDERED: NITROGLYCERIN SL 0.4 MG/TAB TAB SL PRN (16:00)
[2019-02-12] MEDS ORDERED: GLUCAGON FOR INJ 1 MG VIAL IM PRN (16:15)
[2019-02-12] MEDS ORDERED: GLUCOSE 10 TABS/TUBE PO PRN (16:15)
[2019-02-12] MEDS ORDERED: CARBOHYDRATES FOR HYPOGLYCEMIA PO PRN (16:15)
[2019-02-12] MEDS ORDERED: GLUCOSE 40% GEL 15 GM TUBE PO PRN (16:15)
[2019-02-12] MEDS ORDERED: DEXTROSE 50% 50 ML SYRINGE IV PRN (16:15)
[2019-02-12] MEDS: NITROGLYCERIN 2% OINTMENT 30GM TUBE EXT SCH (17:41)
[2019-02-12] MEDS ORDERED: HEPARIN 100 UNIT/ML 5ML FLUSH FLUSH PRN (17:52)
[2019-02-12] MEDS ORDERED: NITROGLYCERIN 2% OINTMENT 30GM TUBE EXT SCH (18:00)
--- NOTE | 2019-02-12 18:20 | Emergency Department Note ---
Entered by Chandra Boyd acting as a scribe for Eliceo Reddy MD History of Present Illness General Chief complaint: Chest Pain Time Seen by Provider: 02/12/19 12:20 Source: patient History of Present Illness Onset (ago): hour(s) 2 Location: chest Pain Consistency: + other (an episode) Maximum Pain Intensity: 9 Relieved By: + medication (nitroglycerin) Associated symptoms: + other (Positive for left arm pain, jaw pain, and dizziness.) The patient is a 78 year old female who presents to the emergency department with complaints of an episode of chest pain beginning 2 hours ago. The patient states that she had a cardioversion done for rapid Afib on 02/05/2019 and has not had any heart problems since. She notes that she had an episode of Afib today at 0940. She reports that she was not exerting herself at that time. The patient states her throat and head started pounding, and she notes that she had pain in her center chest, left arm, and jaw. She rated her pain as a 9/10. She reports that her heart rate increased from the 50s to 122 during the episode. The patient states that her symptoms lasted for over an hour. She notes that she received 2 sprays of nitroglycerin which relieved her symptoms. She also complains of dizziness. She reports that she wears 2.5L of oxygen at all times for her COPD. The patient states that she has a history of a brain bleed. She notes that she takes Eliquis. She reports that she takes nebulizer treatments as needed. Home Medications Home Medications Medication Instructions Recorded Confirmed Type Combivent Respimat 1 puff INHALATION Q6H PRN 06/20/18 02/12/19 History Novolog U-100 Insulin aspart 11 unit SUBCUT QAM 06/20/18 02/12/19 History Novolog U-100 Insulin aspart 18 unit SUBCUT QDL 06/20/18 02/12/19 History Novolog U-100 Insulin aspart 28 unit SUBCUT QPM 06/20/18 02/12/19 History ascorbic acid (vitamin C) [Vitamin 1 g PO QAM 06/20/18 02/12/19 History C] buspirone 5 mg PO BID 06/20/18 02/12/19 History ergocalciferol (vitamin D2) 50,000 unit PO MONTHLY 06/20/18 02/12/19 History [Vitamin D2] folic acid 800 mcg PO QAM 06/20/18 02/12/19 History multivitamin 1 tab PO QAM 06/20/18 02/12/19 History vitamin B complex 1 tab PO QAM 06/20/18 02/12/19 History Eliquis 2.5 mg PO BID 07/09/18 02/12/19 History clopidogrel 75 mg PO QAM #30 tab 07/09/18 02/12/19 Rx amoxicillin 2,000 mg PO UD 09/14/18 02/12/19 History Lyrica 200 mg PO BID 01/18/19 02/12/19 History furosemide [Lasix] 40 mg PO QAM 01/18/19 02/12/19 History metoprolol tartrate 25 mg PO QAM 01/18/19 02/12/19 History amiodarone 200 mg PO BID 30 Days #60 tab 02/05/19 02/12/19 Rx furosemide 80 mg PO UD PRN 02/12/19 02/12/19 History insulin glargine [Basaglar KwikPen 20 unit SUBCUT BID 02/12/19 02/12/19 History U-100 Insulin] Allergies Allergy/AdvReac Type Severity Reaction Status Date / Time eptifibatide Allergy Severe ANAPHYLAXIS Verified 02/12/19 13:28 hornet venom Allergy Severe WASP VENOM Verified 02/12/19 13:28 PROTEIN-ANAPHYLAXIS levofloxacin [From Levaquin] Allergy Severe Hives Verified 02/12/19 13:28 atorvastatin Allergy Unknown MUSCLE PAIN Verified 02/12/19 13:28 ezetimibe Allergy Unknown MUSCLE PAIN Verified 02/12/19 13:28 simvastatin Allergy Unknown MUSCLE PAIN Verified 02/12/19 13:28 amlodipine AdvReac Severe Nausea Verified 02/12/19 13:28 mivacurium AdvReac Intermediate palpatation Verified 02/12/19 13:28 s warfarin AdvReac Intermediate EXTREME Verified 02/12/19 13:28 BLEEDING TIMES codeine AdvReac Mild VOMITING Verified 02/12/19 13:28 gemfibrozil AdvReac Mild NAUSEA Verified 02/12/19 13:28 meperidine AdvReac Mild VOMITING Verified 02/12/19 13:28 ondansetron AdvReac Mild vomiting Verified 02/12/19 13:28 ranitidine [From Zantac] AdvReac Mild dyspepsia Verified 02/12/19 13:28 cortisone AdvReac Unknown INCREASES Verified 02/12/19 13:28 SUGAR AND VOMITING? 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) Chronic kidney disease with active medical management without dialysis, stage 3 (moderate) (Chronic) Acute on chronic diastolic heart failure (Acute) Thrombocytopenia chronic; baseline platelets low 100's JANICE treated with BiPAP Atrial fibrillation CAD (coronary artery disease) cardiac stents x 6; most recent: AWILDA x2 (mid/distal RCA) 07/06/18* Myocardial infarction X4 Peripheral neuropathy Diabetes (Chronic) HTN (hypertension) Lung cancer CKD (chronic kidney disease) stage 3, GFR 30-59 ml/min Diastolic CHF Dyslipidemia Hypertrophic cardiomyopathy apical variant Respiratory failure 2-3L O2 Surgical History History of cardioversion MULTIPLE History of lung surgery PARTIAL LEFT LOBECTOMY (2013) Hx of brain surgery 2017 S/P FALL/INJURY; SUBSEQUENT BLOOD CLOT EVACUATION S/P cardiac catheterization 7 TOTAL; CARDIAC STENTS X6 S/P hysterectomy S/P tonsillectomy Social History Preferred Language: Greenlandic Communication Ability: Effective 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 and A total of 10 systems reviewed and were otherwise negative Physical Exam Vital Signs Vital Signs - 24 hr 02/12/19 12:05 02/12/19 12:45 02/12/19 13:00 Temperature 36.7 C Temperature Source Oral Sepsis Recent Fever Within 48 Hours No Sepsis New/Unexplained Change in Mental Status No Sepsis Action Taken by Nursing No Action Required Pulse Rate 57 L Pulse Rate [Apical] Pulse Rhythm Regular Respiratory Rate 16 Respiratory Effort / Characteristics Non-Labored Respiratory Depth Normal Respiratory Pattern Regular Blood Pressure 169/73 H Blood Pressure [Left Arm] Blood Pressure Mean 105 Blood Pressure Mean [Left Arm] Pulse Oximetry 95 93 Oxygen Delivery Method Nasal Cannula Room Air Nasal Cannula Oxygen Flow Rate 2 2 02/12/19 13:01 02/12/19 13:03 02/12/19 13:31 Temperature Temperature Source Sepsis Recent Fever Within 48 Hours Sepsis New/Unexplained Change in Mental Status Sepsis Action Taken by Nursing Pulse Rate Pulse Rate [Apical] 54 L 52 L 52 L Pulse Rhythm Respiratory Rate 12 18 20 Respiratory Effort / Characteristics Spontaneous Non-Labored Respiratory Depth Normal Respiratory Pattern Blood Pressure Blood Pressure [Left Arm] 160/82 H 156/72 H Blood Pressure Mean Blood Pressure Mean [Left Arm] 108 100 Pulse Oximetry 92 95 95 Oxygen Delivery Method Nasal Cannula Nasal Cannula Nasal Cannula Oxygen Flow Rate 2 2 02/12/19 14:14 02/12/19 14:23 Temperature Temperature Source Sepsis Recent Fever Within 48 Hours Sepsis New/Unexplained Change in Mental Status Sepsis Action Taken by Nursing Pulse Rate Pulse Rate [Apical] 54 L 54 L Pulse Rhythm Respiratory Rate 16 18 Respiratory Effort / Characteristics Respiratory Depth Respiratory Pattern Blood Pressure Blood Pressure [Left Arm] 170/77 H 128/63 Blood Pressure Mean Blood Pressure Mean [Left Arm] 108 84 Pulse Oximetry 95 97 Oxygen Delivery Method Room Air Nasal Cannula Oxygen Flow Rate 2 GENERAL: Patient is in no acute distress. HEENT: No acute trauma, normocephalic atraumatic, mucous membranes moist, no nasal congestion, no scleral icterus. NECK: No stridor, no adenopathy, no meningismus, trachea is midline. LUNGS: No wheezing, breath sounds equal, crackles at both lung bases, no respiratory distress. HEART: Mildly bradycardic with a regular rhythm, no murmurs. ABDOMEN: Soft, nontender, bowel sounds positive, no hernias, no peritonitis. EXTREMITIES: No cyanosis, full range of motion of all the joints without pain or difficulty, no signs for acute trauma, mild bilateral pedal edema. NEUROLOGIC: Oriented x 3, no acute motor or sensory deficits, no focal weakness. SKIN: No rash, no jaundice, no diaphoresis. Course 1223: The patient was evaluated in room C4. A complete history and physical exam was performed. Per review of EMR, the patient had a cardioversion for rapid Afib on 02/05/2019. 1234: I discussed the patient's case with Dr. Esequiel Cortés [facility]. He states that the patient should be hospitalized and that he will see her as a consult. He has no immediate suggestions. 1346: Upon reevaluation, the patient is stable. I discussed the findings and the treatment plan with the patient. She expresses agreement and understanding. I spoke with Dr. Street of the [facility] Hospitalist Service. The patient will be evaluated for further management. 1354: I reevaluated and updated the patient. Consultations Consultation #1: I discussed the patient's case with Dr. Esequiel Cortés [facility]. He states that the patient should be hospitalized and that he will see her as a consult. He has no immediate suggestions. Time: 12:34 Consultation #2: I reviewed the patient's case with Dr. Street - Augusto [facility]. He will evaluate the patient for further management. Time: 13:46 Administered Medications Nitroglycerin (Nitro-Bid 2%) 1 inch EXT Q6 RAFIA Stop: 03/14/19 17:59 Last Admin: 02/12/19 17:41 Dose: 1 inch Documented by: [id number] Discontinued Medications Albuterol (Duoneb) 3 ml NEB NOW STA Stop: 02/12/19 12:35 Last Admin: 02/12/19 13:00 Dose: 3 ml Documented by: [id number] Furosemide (Lasix) 40 mg IV NOW STA Stop: 02/12/19 14:16 Last Admin: 02/12/19 14:29 Dose: 40 mg Documented by: [id number] Magnesium Sulfate/Dextrose (Magnesium Sulfate / D5w) 1 gm in 100 mls @ 100 mls/hr IV ONE ONE Stop: 02/12/19 14:40 Last Infusion: 02/12/19 15:15 Dose: 0 mls/hr Documented by: [id number] Admin: 02/12/19 13:57 Dose: 100 mls/hr Documented by: [id number] Magnesium Oxide (Mag-Ox) 400 mg PO NOW STA Stop: 02/12/19 13:42 Last Admin: 02/12/19 13:57 Dose: 400 mg Documented by: [id number] Nitroglycerin (Nitrostat) Confirm Administered Dose 0.4 mg .ROUTE .STK-MED ONE Stop: 02/12/19 14:13 Last Admin: 02/12/19 14:15 Dose: 0.4 mg Documented by: [id number] Nitroglycerin (Nitrostat) 0.4 mg SL NOW STA Stop: 02/12/19 14:16 Last Admin: 02/12/19 16:09 Dose: Not Given Documented by: [id number] Nitroglycerin (Nitro-Bid 2%) Confirm Administered Dose 18 inch .ROUTE .STK-MED ONE Stop: 02/12/19 14:27 Last Admin: 02/12/19 14:29 Dose: 18 inch Documented by: [id number] Medical Decision Making Differential Diagnosis Differential diagnosis includes: OH, angina, Afib, atrial flutter, anemia, electrolyte imbalance, and CHF. Medical Records Attestation: I reviewed the patient's medical records. Home Medications Current Medication List: was personally reviewed by me Laboratory Data Attestation: I reviewed the patient's lab results. Result diagrams: 02/12/19 11:50 02/12/19 11:50 Lab Results 02/12/19 02/12/19 02/12/19 Range/Units 11:50 11:50 13:38 WBC 4.49 L (4.8-10.8) K/uL RBC 4.38 (4.2-5.4) M/uL Hgb 13.4 (12.0-16.0) g/dL Hct 42.1 (37-47) % MCV 96.1 (80-100) fL MCH 30.6 (25-34) pg MCHC 31.8 L (32-36) g/dL RDW Std Deviation 63.0 H (36.4-46.3) fL RDW Coeff of Nhi 18.1 H (11.5-14.5) % Plt Count 95 L (130-400) K/uL Immature Gran % (Auto) 1.6 % Neut % (Auto) 67.0 % Lymph % (Auto) 20.5 % Shelby % (Auto) 8.9 % Eos % (Auto) 1.6 % Baso % (Auto) 0.4 % Immature Gran # (Auto) 0.07 H (0.00-0.02) K/uL Neut # (Auto) 3.01 (1.4-6.5) K/uL Lymph # (Auto) 0.92 L (1.2-3.4) K/uL Shelby # (Auto) 0.40 (0.11-0.59) K/uL Eos # (Auto) 0.07 (0-0.5) K/uL Baso # (Auto) 0.02 (0-0.2) K/uL Platelet Estimate Decreased L (Normal) PT 10.7 (9.0-12.0) Seconds INR 1.0 (0.9-1.1) APTT 25.6 (21.0-31.0) Seconds PTT Ratio 0.9 Sodium 143 (136-145) mmol/L Potassium 3.8 (3.5-5.1) mmol/L Chloride 102 (98-107) mmol/L Carbon Dioxide 32 (21-32) mmol/L Anion Gap 9.0 (3-11) BUN 43 H (7-18) mg/dl Creatinine 1.90 H (0.6-1.2) mg/dl Est Cr Clr Drug Dosing 22.8 ml/min Est GFR ( Amer) 29.0 Est GFR (Non-Af Amer) 25.0 BUN/Creatinine Ratio 22.4 H (10-20) Glucose 223 H (70-99) mg/dl Calcium 8.9 (8.5-10.1) mg/dl Magnesium 1.7 L (1.8-2.4) mg/dl Total Bilirubin 0.7 (0.2-1) mg/dl AST 20 (15-37) U/L ALT 29 (12-78) U/L Alkaline Phosphatase 75 (45-117) U/L Troponin I 0.016 (0-0.045) ng/ml NT-Pro-B Natriuret Pep 1581 (0-1800) pg/ml Total Protein 6.9 (6.4-8.2) gm/dl Albumin 3.4 (3.4-5.0) gm/dl Globulin 3.5 (2.5-4.0) gm/dl Albumin/Globulin Ratio 1.0 (0.9-2) Lipase 386 (73-393) U/L Imaging Data Radiologist's Impression: Radiology results as stated below per my review and the radiologist's interpretation: XR chest 1V portable FINDINGS: Cardiac silhouette is enlarged, unchanged. Pulmonary vascular congestion with persistent interstitial coarsening. Postoperative changes of the left upper lung. Stable positioning of the left subclavian [id number] catheter. No pneumothorax. Mild blunting of the cost phrenic angles is unchanged and may reflect trace pleural effusions. Subsegmental bibasilar opacities suggest atelectasis. Degenerative changes of the shoulders and spine. IMPRESSION: 1. Cardiomegaly with mild pulmonary edema. 2. Suggestion of trace pleural effusions with subsegmental bibasilar opacities. The above report was generated using voice recognition software. It may contain grammatical, syntax or spelling errors. Electronically signed by: Dipak Tapia M.D. 02/12/2019 12:54 PM ECG Data Attestation: I personally reviewed and interpreted this ECG as follows: Indication: chest pain Rate (beats per minute): 112 Rhythm: atrial fibrillation Findings: + ST depression (laterally) Additional Comments: EKG #2: Sinus tachycardia, 114, LBBB noted. Blood Pressure Blood Pressure Findings: Elevated blood pressure Blood Pressure Disposition: further management by hospitalist [facility] Narrative There is no concerning anemia. No leukocytosis. Platelet count slightly low at 95, the patient does have a history of a lower platelet count. No coagulopathy. Creatinine is elevated at 1.9, this is baseline for the patient. Magnesium is low 1.7. No concerning liver enzyme elevation. No evidence for pancreatitis. EKG showed a sinus bradycardia without acute ischemic change. Cardiac enzyme testing x1 is not consistent with acute cardiac injury. Chest film shows cardiomegaly and some parenchymal congestion. The film looks similar to previous films. The patient presents with chest pain, jaw pain and arm pain. She was short of breath. Her symptoms lasted for about 2 hours and she believes were resolved by the nitroglycerin administered by EMS. Looking at her EKG from the EMS trip, she was in a rapid A. fib, at one point, she had a left bundle branch block. Upon arrival, her EKG shows a sinus bradycardia, no left bundle branch block seen. Patient received IV magnesium, she was given a DuoNeb as she was due for a treatment. I spoke with cardiology. Patient is going to be hospitalized for further cardiac work-up. Patient is currently resting comfortably. She is aware of all her findings. Case management has been involved. The on-call hospitalist was consulted. Impression & Plan Chest pain, precordial, Atrial fibrillation, rapid, Hypomagnesemia Discharge Plan Visit Data *Final* Discharge Date/Time: 02/12/19 15:41 Chief Complaint: Chest Pain ED Provider: Eliceo Reddy Discharge Problem: Chest pain, precordial, Atrial fibrillation, rapid, Hypomagnesemia Patient Disposition: Admitted As Inpatient Discharge Instructions Interventions: ED Discharge Assessment Last Done: 02/12/19 15:41 The scribe's documentation has been prepared under my direction and personally reviewed by me in its entirety. I confirm that the note above accurately reflects all work, treatment, procedures, and medical decision making performed by me.
[2019-02-12] MEDS: AMIODARONE 200 MG TAB PO SCH (21:08)
[2019-02-12] MEDS: APIXABAN 2.5 MG TAB PO SCH (21:09)
[2019-02-12] MEDS: PREGABALIN 100 MG CAP PO SCH (21:12)
[2019-02-12] MEDS: INSULIN GLARGINE SOLOSTAR 100 UNITS/ML 3 ML PEN SQ SCH (21:13)
[2019-02-13] MEDS: NITROGLYCERIN 2% OINTMENT 30GM TUBE EXT SCH ×2 (00:29→05:37)
[2019-02-13 00:59] LABS: Calcium 8.2 mg/dl (8.5-10.1); Creatinine Clr Calc Pharmacy 25.2 ml/min; Potassium 3.6 mmol/L (3.5-5.1)
[2019-02-13 01:04] LABS: Troponin I 0.026 ng/ml (0-0.045)
[2019-02-13] MEDS: FUROSEMIDE 40 MG in SYRINGE 0 ML IV SCH ×2 (05:38→17:40)
[2019-02-13] MEDS: CLOPIDOGREL BISULFATE 75 MG TAB PO SCH (07:54)
[2019-02-13] MEDS: APIXABAN 2.5 MG TAB PO SCH ×2 (07:54→20:53)
[2019-02-13] MEDS: VITAMIN B COMPLEX TAB PO SCH (07:54)
[2019-02-13] MEDS: FOLIC ACID 400 MCG TAB PO SCH (07:54)
[2019-02-13] MEDS: AMIODARONE 200 MG TAB PO SCH ×2 (07:54→20:53)
[2019-02-13] MEDS: MULTIVITAMIN TAB PO SCH (07:54)
[2019-02-13] MEDS: ASPIRIN 81 MG ECTAB PO SCH (07:54)
[2019-02-13] MEDS: INSULIN GLARGINE SOLOSTAR 100 UNITS/ML 3 ML PEN SQ SCH ×2 (07:55→20:54)
[2019-02-13] MEDS: METOPROLOL TARTRATE 25 MG TAB PO SCH (07:55)
[2019-02-13] MEDS: ASCORBIC ACID 500 MG TAB PO SCH (07:55)
[2019-02-13] MEDS: PREGABALIN 100 MG CAP PO SCH ×2 (08:00→20:53)
--- NOTE | 2019-02-13 08:09 | Family Medicine Progress Note ---
Date of Service February 13, 2019 Assessment & Plan (1) Paroxysmal A-fib: #Paroxysmal A-fib: Apparent recurrence of paroxysmal atrial fibrillation with chest pain this morning. On telemetry. Continue amiodarone, metoprolol, Eliquis. Cardiology consulted following recommendations -Continue telemetry -IV furosemide 40 mg twice daily -Pharmacological SPECT tomorrow -Continue home meds and started on aspirin, if no evidence of high risk CAD discontinue on discharge #Angina pectoris: Chest discomfort and shortness of breath consistent with angina pectoris occurred with palpitations this morning. Continue beta suraj therapy. Add aspirin therapy and nitrates. Follow serial troponins. peaked and down trending now -0.016->0.017->0.026->0.018 -Started on isosorbide mononitrate 20 mg twice daily, if she tolerates we will continue on discharge #CAD Patient has history of not tolerating statins. She is tried all of them on the market and they cause side effects from GI upset all the way to myopathy. I believe this patient would be an excellent candidate for Repatha therapy, will attempt to get this approved for her as an inpatient. If not defer to outpatient physician. #Acute on chronic diastolic heart failure: IV Lasix every 12 hours. Gautam catheter for accurate intake and output. -currently -2 liters -weight 89 kg -> 86.8kg BNP level is 1581 #Chronic kidney disease with active medical management without dialysis, stage 3 (moderate): Monitor intake and output. -Cr 1.9 today holding off on hydration secondary to fluid overload Trend daily BMP, replete electrolytes as indicated #Diabetes: Basal glargine insulin. Sliding scale coverage as needed #JANICE on home Bipap at night FENa: Diabetic diet Code Status:[] DVT PPX: Eliquis Dispo: Telemetry Supervising Physician Co-Signing Physician Notes I personally examined the patient and verified all [place] points of history and exam, discussed case, and agree with decision making with Dr Hinojosa. Feeling better. No chest pain. Cardiology input appreciated, for nuclear med stress test tomorrow. Vitals noted, in general she is awake and alert pleasant no distress. HEENT normocephalic atraumatic mucous membranes moist. Breathing unlabored no accessory muscle use good effort. Skin shows no rashes no pallor or icterus. EKG is noted. Chest painconcern on unstable angina (however this seems less likely given that she had symptoms again in the ER whenever her rates were good). Pain-free now. Await stress test, likely will need to alter med management for coronary disease plus or minus cath based on stress results. Subjective Patient sitting up in bed comfortably this morning in no acute distress. Patient reports feeling significantly better than when she presented. No longer experiencing chest pain, chest pressure, tingling, palpitations, or other concerning signs or symptoms of cardiac pathology. Patient states she was in her normal state health until yesterday when she began acutely palpitations, chest pressure, chest pain and called EMS leading to her presentation in the ER. Symptoms resolved status post sublingual nitro. Patient has been in normal sinus rhythm since admission, she had a slight bump in her troponins, they have not peaked we are still continuing to trend. She does not endorse dyspnea currently, no coughing, no fevers no chills no nausea no vomiting. Patient is tolerating her diet, voiding, stooling, sleeping, no acute concerns are present all questions answered. Physical Exam Physical Exam: General: Elderly obese female in no acute distress HEENT: Normocephalic atraumatic Neck: Trachea midline, did not appreciate JVD Cardiac: Regular rate and rhythm, normal S1, initiate any murmurs rubs or gallops, negative calf tenderness, 1+ pitting pedal edema Respiratory: Clear to auscultation bilaterally GI: Soft, nontender, nondistended, normal bowel sounds MSK: Moves all extremities Skin: No new rashes Neuro: Alert and oriented x4 Psych: Calm, cooperative Results & Data Vital Signs (Past 12 Hours) Vital Signs Temp Pulse Pulse Pulse Resp BP Pulse Ox 02/13/19 07:51 36.5 C 63 18 107/53 L 96 02/13/19 04:16 36.6 C 55 L 18 134/66 98 02/13/19 00:44 52 L 02/12/19 23:01 36.7 C 55 L 18 159/69 H 97 Laboratory Results Abnormal lab results 02/12/19 02/12/19 02/12/19 Range/Units 11:50 11:50 16:41 WBC 4.49 L (4.8-10.8) K/uL MCHC 31.8 L (32-36) g/dL RDW Std Deviation 63.0 H (36.4-46.3) fL RDW Coeff of Nhi 18.1 H (11.5-14.5) % Plt Count 95 L (130-400) K/uL Immature Gran # (Auto) 0.07 H (0.00-0.02) K/uL Lymph # (Auto) 0.92 L (1.2-3.4) K/uL Platelet Estimate Decreased L (Normal) Carbon Dioxide (21-32) mmol/L BUN 43 H (7-18) mg/dl Creatinine 1.90 H (0.6-1.2) mg/dl BUN/Creatinine Ratio 22.4 H (10-20) Glucose 223 H (70-99) mg/dl POC Glucose 140 H (70-99) Calcium (8.5-10.1) mg/dl Magnesium 1.7 L (1.8-2.4) mg/dl 02/12/19 02/13/19 02/13/19 Range/Units 20:26 00:23 07:21 WBC (4.8-10.8) K/uL MCHC (32-36) g/dL RDW Std Deviation (36.4-46.3) fL RDW Coeff of Nhi (11.5-14.5) % Plt Count (130-400) K/uL Immature Gran # (Auto) (0.00-0.02) K/uL Lymph # (Auto) (1.2-3.4) K/uL Platelet Estimate (Normal) Carbon Dioxide 38 H (21-32) mmol/L BUN 44 H (7-18) mg/dl Creatinine 1.90 H (0.6-1.2) mg/dl BUN/Creatinine Ratio 23.0 H (10-20) Glucose 151 H (70-99) mg/dl POC Glucose 252 H 161 H (70-99) Calcium 8.2 L (8.5-10.1) mg/dl Magnesium (1.8-2.4) mg/dl Medications Administered Current Inpatient Medications Acetaminophen (Tylenol) 650 mg PO Q4H PRN PRN Reason: Pain or Fever Stop: 03/14/19 15:59 Al Hydrox/Mg Hydrox/Simethicone (Maalox) 15 ml PO Q4H PRN PRN Reason: Dyspepsia Stop: 03/14/19 15:59 Albuterol (Combivent Respimat) 1 puffs INH Q6H PRN PRN Reason: Shortness Of Breath Or Wheezin Stop: 03/14/19 15:59 Amiodarone HCl (Cordarone) 200 mg PO BID [facility] Stop: 03/14/19 20:59 Last Admin: 02/13/19 07:54 Dose: 200 mg Documented by: Apixaban (Eliquis) 2.5 mg PO BID [facility] Stop: 03/14/19 20:59 Last Admin: 02/13/19 07:54 Dose: 2.5 mg Documented by: Ascorbic Acid (Vitamin C) 1,000 mg PO QAM [facility] Stop: 03/15/19 08:59 Last Admin: 02/13/19 07:55 Dose: 1,000 mg Documented by: Aspirin (Ecotrin Ectab) 81 mg PO QAM [facility] Stop: 03/15/19 08:59 Last Admin: 02/13/19 07:54 Dose: 81 mg Documented by: Buspirone HCl (Buspar) 5 mg PO BID [facility] Stop: 03/14/19 20:59 Last Admin: 02/13/19 07:54 Dose: 5 mg Documented by: Clopidogrel Bisulfate (Plavix) 75 mg PO QAM [facility] Stop: 03/15/19 08:59 Last Admin: 02/13/19 07:54 Dose: 75 mg Documented by: Dextrose (Dextrose 50%) 25 - 50 ml IV UD PRN; Protocol PRN Reason: Hypoglycemia Protocol Stop: 03/14/19 16:14 Folic Acid (Folvite) 800 mcg PO [facility] Stop: 03/15/19 08:59 Last Admin: 02/13/19 07:54 Dose: 800 mcg Documented by: Glucagon (Glucagen) 1 mg IM UD PRN; Protocol PRN Reason: Hypoglycemia Protocol Stop: 03/14/19 16:14 Glucose (Glucose 40%) 15 - 30 gm PO UD PRN; Protocol PRN Reason: Hypoglycemia Protocol Stop: 03/14/19 16:14 Glucose (Dex4 Glucose) 4 - 8 tabs PO UD PRN; Protocol PRN Reason: Hypoglycemia Protocol Stop: 03/14/19 16:14 Heparin Sodium (Porcine) (Heparin Sod 100 Unit/Ml Flush) 5 ml FLUSH PRN PRN PRN Reason: Flush Stop: 03/14/19 17:51 Furosemide 40 mg/ Syringe 4 mls @ 4 mls/min IV Q12H [facility] Stop: 03/15/19 04:59 Last Admin: 02/13/19 05:38 Dose: 4 mls/min Documented by: Insulin Aspart (Novolog Flexpen) 18 units SQ QDD [facility] Stop: 03/15/19 16:29 Insulin Glargine (Lantus Solostar Pen) 20 units SQ BID [facility] Stop: 03/14/19 20:59 Last Admin: 02/13/19 07:55 Dose: 20 units Documented by: Metoprolol Tartrate (Lopressor) 25 mg PO QAM [facility] Stop: 03/15/19 08:59 Last Admin: 02/13/19 07:55 Dose: 25 mg Documented by: Miscellaneous (Carbohydrates For Hypoglycemia) 15 - 30 gm PO UD PRN PRN Reason: Hypoglycemia Treatment Stop: 03/14/19 16:14 Morphine Sulfate (Morphine Sulfate) 2 mg IV Q30M PRN PRN Reason: Chest Pain Stop: 02/26/19 15:59 [facility]ivitamins ([facility]ivitamin Tab) [facility] [place]: 03/15/19 08:59 Last Admin: 02/13/19 07:54 Dose: 1 tab Documented by: Nitroglycerin (Nitro-Bid 2%) 1 inch EXT Q6 RAFIA Stop: 03/14/19 17:59 Last Admin: 02/13/19 05:37 Dose: 1 inch Documented by: Nitroglycerin (Nitrostat) 0.4 mg SL UD PRN PRN Reason: Chest Pain Stop: 03/14/19 15:59 Ondansetron HCl (Zofran) 4 mg IV Q6H PRN PRN Reason: Nausea Stop: 03/14/19 15:59 Potassium Chloride (Klor-Con M20) 20 meq PO Q2H [facility] Stop: 02/13/19 11:46 Pregabalin (Lyrica) 200 mg PO BID [facility] Stop: 03/14/19 20:59 Last Admin: 02/13/19 08:00 Dose: 200 mg Documented by: Vitamin B Complex (Vitamin B Complex) 1 tab PO QAM [facility] Stop: 03/15/19 08:59 Last Admin: 02/13/19 07:54 Dose: 1 tab Documented by: PG Care Time/CCT Total # of Minutes Spent Total Time Spent with Patient: Total time spent is greater than 50% in coordination of care (as documented) at patient's floor/unit and/or counseling patient: Resident Activity Tracking Resident Involvement: Resident Care Provided Care Provided: Adult Hospital Medicine
--- NOTE | 2019-02-13 08:55 | Cardiology Consultation ---
Date of Consultation February 13, 2019 Assessment & Plan (1) Chest pain, precordial: 2. Paroxysmal atrial fibrillation 3. Acute on chronic diastolic heart failure 4. Multivessel coronary artery disease post most recent PCI to RCA 06/2018 5. Chronic kidney disease 6. Hypertension 7. Thrombocytopenia Patient with acute onset of chest pain with associated palpitations. Symptoms different than what has previously experienced with recent atrial fibrillation with RVR. Reportedly had some evidence of atrial fibrillation in route although EKG is unavailable for review at this time. Has remained in sinus rhythm overnight. Pulmonary congestion on imaging on presentation, breathing improved today post diuresis 2 L. With patient's history some concern for ACS triggering patient symptoms yesterday. Enzymes, EKG without signs of active ischemia. Will need additional risk stratification. Going forward: Continue to monitor on telemetry Continue current IV diuresis 40 mg twice daily today Plan for pharmacologic SPECT tomorrow Continue home amiodarone and Eliquis Continue home beta-suraj, clopidogrel. Started on aspirin. If no evidence of high risk CAD will discontinue on discharge. Thank you for allowing us to participate in the care of this patient. Please contact with any questions. History of Present Illness Attending Physician: Raad Villegas DO History of Present Illness Mrs. Hagen is a very pleasant 78-year-old woman well-known to me from the outpatient setting and prior hospitalizations readmitted yesterday with acute onset chest pain. Patient's prior history remarkable for coronary artery disease post multivessel stenting last with 2 stents to RCA in 06/2018, questionable apical variant hypertrophic or myopathy, chronic diastolic heart failure, hypertension, dyslipidemia, insulin-dependent diabetes, stage III chronic kidney disease, JANICE, large B-cell lymphoma in remission and prior subdural hematoma postcraniotomy. Most recently have been dealing with acute on diastolic heart failure requiring escalating diuretics and symptomatic atrial fibrillation with RVR. She is recently been loaded on amiodarone and underwent successful electrical cardioversion on 02/05/2019. Patient states feeling well post procedure. Still dealing with stress of her who is being treated for prostate cancer. Yesterday while at rest developed acute onset chest pain with some associated palpitations and shortness of breath. Pain severe, partially resolved with nitroglycerin. Per report EKGs in route showed questionable atrial fibrillation with left bundle branch block. On arrival here chest pain resolved with additional nitroglycerin and nitro patch. EKG here showed sinus bradycardia with nonspecific ST changes. Troponin has been negative overnight. No recurrent chest pain. Chest x-ray with pulmonary congestion. Started on IV Lasix. Negative more than 2 L. Creatinine stable 1.9. Allergies Allergy/AdvReac Type Severity Reaction Status Date / Time eptifibatide Allergy Severe ANAPHYLAXIS Verified 02/12/19 13:28 hornet venom Allergy Severe WASP VENOM Verified 02/12/19 13:28 PROTEIN-ANAPHYLAXIS levofloxacin [From Levaquin] Allergy Severe Hives Verified 02/12/19 13:28 atorvastatin Allergy Unknown MUSCLE PAIN Verified 02/12/19 13:28 ezetimibe Allergy Unknown MUSCLE PAIN Verified 02/12/19 13:28 simvastatin Allergy Unknown MUSCLE PAIN Verified 02/12/19 13:28 amlodipine AdvReac Severe Nausea Verified 02/12/19 13:28 mivacurium AdvReac Intermediate palpatation Verified 02/12/19 13:28 s warfarin AdvReac Intermediate EXTREME Verified 02/12/19 13:28 BLEEDING TIMES codeine AdvReac Mild VOMITING Verified 02/12/19 13:28 gemfibrozil AdvReac Mild NAUSEA Verified 02/12/19 13:28 meperidine AdvReac Mild VOMITING Verified 02/12/19 13:28 ondansetron AdvReac Mild vomiting Verified 02/12/19 13:28 ranitidine [From Zantac] AdvReac Mild dyspepsia Verified 02/12/19 13:28 cortisone AdvReac Unknown INCREASES Verified 02/12/19 13:28 SUGAR AND VOMITING? hydralazine AdvReac Unknown VOMITING Verified 02/12/19 13:28 ibuprofen AdvReac Unknown VOMITING Verified 02/12/19 13:28 AND DIARRHEA iodine AdvReac Unknown SHELLFISH Verified 02/12/19 13:28 - VOMITING shellfish derived AdvReac Unknown VOMITING Verified 02/12/19 13:28 Sulfa (Sulfonamide AdvReac Unknown VOMITING Verified 02/12/19 13:28 Antibiotics) Home Medications Home Medications Medication Instructions Recorded Confirmed Type Combivent Respimat 1 puff INHALATION Q6H PRN 06/20/18 02/12/19 History Novolog U-100 Insulin aspart 11 unit SUBCUT QAM 06/20/18 02/12/19 History Novolog U-100 Insulin aspart 18 unit SUBCUT QDL 06/20/18 02/12/19 History Novolog U-100 Insulin aspart 28 unit SUBCUT QPM 06/20/18 02/12/19 History ascorbic acid (vitamin C) [Vitamin 1 g PO QAM 06/20/18 02/12/19 History C] buspirone 5 mg PO BID 06/20/18 02/12/19 History ergocalciferol (vitamin D2) 50,000 unit PO MONTHLY 06/20/18 02/12/19 History [Vitamin D2] folic acid 800 mcg PO QAM 06/20/18 02/12/19 History multivitamin 1 tab PO QAM 06/20/18 02/12/19 History vitamin B complex 1 tab PO QAM 06/20/18 02/12/19 History Eliquis 2.5 mg PO BID 07/09/18 02/12/19 History clopidogrel 75 mg PO QAM #30 tab 07/09/18 02/12/19 Rx amoxicillin 2,000 mg PO UD 09/14/18 02/12/19 History Lyrica 200 mg PO BID 01/18/19 02/12/19 History furosemide [Lasix] 40 mg PO QAM 01/18/19 02/12/19 History metoprolol tartrate 25 mg PO QAM 01/18/19 02/12/19 History amiodarone 200 mg PO BID 30 Days #60 tab 02/05/19 02/12/19 Rx furosemide 80 mg PO UD PRN 02/12/19 02/12/19 History insulin glargine [Basaglar KwikPen 20 unit SUBCUT BID 02/12/19 02/12/19 History U-100 Insulin] Patient History Medical History Angina pectoris (Acute) 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) Chronic kidney disease with active medical management without dialysis, stage 3 (moderate) (Chronic) Acute on chronic diastolic heart failure (Acute) Thrombocytopenia chronic; baseline platelets low 100's JANICE treated with BiPAP Atrial fibrillation CAD (coronary artery disease) cardiac stents x 6; most recent: AWILDA x2 (mid/distal RCA) 07/06/18* Myocardial infarction X4 Peripheral neuropathy Diabetes (Chronic) HTN (hypertension) Lung cancer CKD (chronic kidney disease) stage 3, GFR 30-59 ml/min Diastolic CHF Dyslipidemia Hypertrophic cardiomyopathy apical variant Respiratory failure 2-3L O2 Surgical History History of cardioversion MULTIPLE History of lung surgery PARTIAL LEFT LOBECTOMY (2014) Hx of brain surgery 2017 S/P FALL/INJURY; SUBSEQUENT BLOOD CLOT EVACUATION S/P cardiac catheterization 7 TOTAL; CARDIAC STENTS X6 S/P hysterectomy S/P tonsillectomy Social History Preferred Language: Bulgarian Communication Ability: Effective Service Desk Specialist Required: No Beliefs That Will Affect Care: None marital status: Current Living Situation: Spouse 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: Retired/Disabled Feels Safe at Home: Yes Safety Concerns: Feels Safe At This Time Smoking Status: Never smoker Second Hand Exposure: No Hx Alcohol Use: No Hx Substance Use: No Review of Systems Review of Systems: All systems reviewed & are unremarkable except as noted in HPI & below Physical Exam Physical Exam: General: Comfortable, no acute distress Eyes: Sclerae anicteric, extraocular movements intact HENT: Oropharynx clear mucous membranes moist Neck: Normal carotid upstrokes, JVD difficult to assess Lungs: Few crackles at bases bilaterally Cardiac: Regular rate and rhythm, 2 out of 6 holosystolic murmur Abdomen: Soft, nontender, nondistended, positive bowel sounds. Extremities: Well perfused, no peripheral edema Skin: No rashes or lesions. Neuro: Nonfocal Psych: Alert orient x3, normal affect and mood Results & Data Vital Signs (Past 12 Hours) Vital Signs Temp Pulse Pulse Pulse Resp BP Pulse Ox 02/13/19 07:51 36.5 C 63 18 107/53 L 96 02/13/19 04:16 36.6 C 55 L 18 134/66 98 02/13/19 00:44 52 L 02/12/19 23:01 36.7 C 55 L 18 159/69 H 97
[2019-02-13] MEDS: POTASSIUM CHLORIDE 20 MEQ TABCR PO SCH ×2 (11:40→13:46)
[2019-02-13] MEDS ORDERED: ISOSORBIDE MONONITRATE 20 MG TAB PO SCH (12:45)
[2019-02-13] MEDS: ISOSORBIDE MONONITRATE 20 MG TAB PO SCH (14:46)
[2019-02-13] MEDS: INSULIN ASPART 100 UNITS/ML 3 ML PEN SQ SCH (17:40)
[2019-02-14] MEDS: FUROSEMIDE 40 MG in SYRINGE 0 ML IV SCH (05:28)
[2019-02-14 06:03] LABS: BUN Creatinine Ratio 21.5 (10-20); Calcium 8.2 mg/dl (8.5-10.1); Creatinine Clr Calc Pharmacy 22.8 ml/min; Est GFR (Non-African American) 22.4; Potassium 4.4 mmol/L (3.5-5.1)
[2019-02-14] MEDS: ISOSORBIDE MONONITRATE 20 MG TAB PO SCH ×2 (07:22→13:06)
--- NOTE | 2019-02-14 07:57 | Discharge Summary ---
Date of Service February 14, 2019 Admission HPI Per Admitting Provider 78-year-old female with known coronary artery disease and paroxysmal atrial fibrillation. She recently underwent cardioversion procedure. Today while at rest after awakening she developed palpitations accompanied by chest pain and shortness of breath. She describes the chest discomfort as pressure-like and nonradiating. EMS was summoned and they gave her a series of sublingual nitroglycerin tablets and her symptoms completely resolved. At the time of my examination, she is beginning to have chest discomfort again and repeat sublingual nitroglycerin has been ordered with the addition of topical nitrates. Her EKG at this time reveals sinus bradycardia with [address] segment depression and conduction delay. Initial troponin is normal. The ED physician has discussed case with Dr. Enrico Iraheta who will see the patient later today. She also has clinical evidence of congestive heart failure, probably diastolic. Gautam catheter will be placed and intravenous Lasix started. BNP is pending. Admission Exam Per Admitting Provider General-alert and oriented x3, no fevers, no chills HEENT-head atraumatic and normocephalic, TMs intact bilaterally, pupils equal and reactive to light, extraocular muscles intact Neck-no lymphadenopathy or thyromegaly, trachea midline Chest-bibasilar inspiratory rales. No rhonchi. No dullness to percussion Cardiac-sinus bradycardia in the 50s. Normal S1 and S2. The patient is obese and presence of JVD is difficult to discern Abdomen-normal bowel sounds, nontender, no hepatosplenomegaly Extremities-no cyanosis, clubbing. Mild peripheral edema bilateral lower extremities below the knees Neuro-cranial nerves II through XII intact, motor and sensory function within normal limits, strength symmetrical 5/5, no focal deficits Psych-normal affect, normal mood Principal Diagnosis CHEST PAIN,CHF,ATRIAL FIBRILLATION Discharge Exam eneral: Elderly obese female in no acute distress HEENT: Normocephalic atraumatic Neck: Trachea midline, did not appreciate JVD Cardiac: Regular rate and rhythm, normal S1, initiate any murmurs rubs or gallops, negative calf tenderness, 1+ pitting pedal edema Respiratory: Clear to auscultation bilaterally GI: Soft, nontender, nondistended, normal bowel sounds MSK: Moves all extremities Skin: No new rashes Neuro: Alert and oriented x4 Psych: Calm, cooperative Discharge Data Allergies Allergy/AdvReac Type Severity Reaction Status Date / Time eptifibatide Allergy Severe ANAPHYLAXIS Verified 02/12/19 13:28 hornet venom Allergy Severe WASP VENOM Verified 02/12/19 13:28 PROTEIN-ANAPHYLAXIS levofloxacin [From Levaquin] Allergy Severe Hives Verified 02/12/19 13:28 atorvastatin Allergy Unknown MUSCLE PAIN Verified 02/12/19 13:28 ezetimibe Allergy Unknown MUSCLE PAIN Verified 02/12/19 13:28 simvastatin Allergy Unknown MUSCLE PAIN Verified 02/12/19 13:28 amlodipine AdvReac Severe Nausea Verified 02/12/19 13:28 mivacurium AdvReac Intermediate palpatation Verified 02/12/19 13:28 s warfarin AdvReac Intermediate EXTREME Verified 02/12/19 13:28 BLEEDING TIMES codeine AdvReac Mild VOMITING Verified 02/12/19 13:28 gemfibrozil AdvReac Mild NAUSEA Verified 02/12/19 13:28 meperidine AdvReac Mild VOMITING Verified 02/12/19 13:28 ondansetron AdvReac Mild vomiting Verified 02/12/19 13:28 ranitidine [From Zantac] AdvReac Mild dyspepsia Verified 02/12/19 13:28 cortisone AdvReac Unknown INCREASES Verified 02/12/19 13:28 SUGAR AND VOMITING? hydralazine AdvReac Unknown VOMITING Verified 02/12/19 13:28 ibuprofen AdvReac Unknown VOMITING Verified 02/12/19 13:28 AND DIARRHEA iodine AdvReac Unknown SHELLFISH Verified 02/12/19 13:28 - VOMITING shellfish derived AdvReac Unknown VOMITING Verified 02/12/19 13:28 Sulfa (Sulfonamide AdvReac Unknown VOMITING Verified 02/12/19 13:28 Antibiotics) Consultations 02/12/19 13:48 ED Decision to Admit Stat 02/12/19 16:00 Consult Cardiology Routine Hospital Course (1) Paroxysmal A-fib: #Paroxysmal A-fib: Apparent recurrence of paroxysmal atrial fibrillation with chest pain morning of 02/12. Patient was admitted to the telemetry service, continued on her home amiodarone, metoprolol, Eliquis and monitored throughout the admission without recurrence of atrial fibrillation. Cardiology was consulted and recommended IV furosemide 40 mg twice daily, and will consider maintaining aspirin therapy on discharge pending schedule pharmacological SPECT on 02/14. Patient tolerated the procedure well and was subsequently discharged, aspirin was discontinued on discharge #Angina pectoris: Chest discomfort and shortness of breath consistent with angina pectoris occurred with palpitations morning of 02/12. Patient was admitted to the telemetry service and continued on her home beta-suraj therapy, aspirin therapy as well as PRN nitrates were added. Serial troponins were trended, and peaked on 02/13 with a max value of 0.026. Patient was started on isosorbide mononitrate 20 mg twice daily on 02/13 and has tolerated it well, this medication will be maintained on discharge #CAD Patient has history of not tolerating statins. She is tried all of them on the market and they cause side effects from GI upset all the way to myopathy. I believe this patient would be an excellent candidate for Repatha therapy, will attempt to get this approved for her as an inpatient. If not defer to outpa tient physician. #Acute on chronic diastolic heart failure: Patient has a past medical history of diastolic heart failure, on this admission appears to be having an acute exacerbation. BNP on admission was 1581 the patient received IV Lasix twice daily throughout the admission, a Gautam catheter was used for accurate tracking of eyes and O's, on the day of discharge the patient was net 4 L negative and her discharge weight was 87 kg.IV Lasix every 12 hours. #Chronic kidney disease with active medical management without dialysis, stage 3 (moderate): Baseline creatinine appears to be 1.6-1.7, admission creatinine 1.8. patient was administered fluid bolus on admission, BMP was trended daily, on the day of discharge her creatinine was 2.0, this is likely secondary to aggressive diuresis with Lasix. Would recommend follow-up BMP on discharge, primary care physician should ensure her creatinine returned to normal. #Diabetes: Patient's home diabetes medication was held during the admission, she was covered with basal glargine and sliding scale and insulin as needed. #JANICE on home Bipap at night FENa: Diabetic diet Code Status: full DVT PPX: Eliquis Dispo: Telemetry Total Time Total Time Spent Total Time Spent (In Minutes): >30 Discharge Plan Discharge Items Patient Disposition: Home - Self-Care Reason For Visit: CHEST PAIN,CHF,ATRIAL FIBRILLATION Discharge Diagnosis: CHEST PAIN,CHF,ATRIAL FIBRILLATION Discharge Goals: Decrease discomfort, Diagnostic testing and Therapeutic intervention Activity: Resume your previous activity Activity Comment: as tolerated Non-emergency contact: Primary Care Provider and [employer] Call non-emergency contact if: you have any medication questions, your symptoms worsen and your temperature is above 100.5 Follow-up/Referrals: Gopi Iraheta MD [Physician] - 03/08/19 2:30 pm (Please, follow up at [facility]iology Office with Dr. Iraheta on March 08 at 2:30 pm. *[address] [facility], next to this hospital. If you need to change this appointment, call the office at [phone].) Lizet Jeter DO [Primary Care Provider] - 02/19/19 10:50 am (Please, follow up at Dr. Lizet Jeter's office with her associate, Dr. Rollins, on TuesdayFebruary 19 at 10:50 am. *If you need to change this appointment, call the office at [phone].) Diet: Carb Consistent or DM2 and Heart Healthy Other Ambulatory Orders: Basic Metabolic Panel (Routine) Timeframe: 5 Days Location: Determined by Patient Ordered By: Arjun Henderson Provider Instructions: Care instructions: You were admitted to [facility] for treatment of chest pain, acute on chronic CHF exacerbation, atrial fibrillation. Your atrial fibrillation terminated upon arrival to the ED. your chest pain was assessed, there worse concerns on your EKG, so cardiology was consulted. They felt it was appropriate to do a chemical stress test, the results indicated that there were no high risk findings, and there is no need for further invasive evaluation of your coronary artery disease. Additionally upon arrival you were found to be slightly fluid overloaded so we aggressively diuresed you with Lasix during the admission. After successful completion and recovery of the chemical stress test he was subsequently discharged. While admitted he was started on a long-acting nitrate to help with your chest pain. This medication was called into the [facility] on [facility] in [place], you are to take 20 mg twice daily 7 hours apart for example 8 AM and 3 PM. A discharge summary will be sent to your primary care physician to ensure continuity of care. Please bring this discharge summary with you to your next office appointment so that your provider can review it at that time. Follow-up appointments: - Keep all your follow-up appointments as already scheduled. If you cannot make an appointment, notify your provider. - Please call to request a follow-up appointment with your primary care physician within one week of discharge. Please let us know if you are unable to obtain an appointment Follow-up labs: - Please go to a lab nearest you and obtain the requested lab work. Please have this completed at least 3 hours before your doctor's appointment (or the day before your appointment if possible). -BMP in 5 days Medications: - Your medication list has been reviewed and reconciled upon discharge to ensure accuracy and continuity of care. - You are provided with a list of all your current medications at this time. Please review this list closely and make note of any changes. - Please take all of your medications exactly as prescribed. - Tell your primary care provider if you cannot afford your medications. - Call your primary care provider if you are having any side effects or any other problems. - Call your primary care provider before taking any over the counter medications or supplements, including herbals and vitamins, because some of these may interact with your current medications and/or make your symptoms worse. Symptoms: Please call your primary care provider for symptoms including, but not limited to: fevers (temperatures greater than 100.4), chills, intractable nausea or vomiting, diarrhea, rash, shortness of breath, bleeding, pain, or if you experience any worsening of the symptoms that brought you to the hospital. For EMERGENCY and VERY SERIOUS health-related issues, such as chest pain, shortness of breath, or sudden onset of the symptoms that brought you to the hospital, you may need to call 911 or go directly to the Emergency Room It has been our privilege to take care of you during your hospital stay. And Above All Else Feel Better! Best Wishes, Arjun Hinojosa MD PGY1 Resident, Family & Community Medicine [facility] Residency at [facility] [place] [address], [address] : [place] [address] Prescriptions: New isosorbide mononitrate 20 mg Tablet 20 mg PO BID@0700,1400 30 Days Qty: 60 RF: 0 Continued multivitamin Tablet 1 tab PO QAM RF: 0 buspirone 5 mg tablet 5 mg PO BID RF: 0 folic acid 400 mcg Tablet 800 mcg PO QAM RF: 0 vitamin B complex Tablet 1 tab PO QAM RF: 0 Combivent Respimat 20-100 mcg/actuation Mist 1 puff INHALATION Q6H PRN (Reason: Shortness Of Breath Or Wheezing) RF: 0 ascorbic acid (vitamin C) [Vitamin C] 1,000 mg Tablet 1 g PO QAM RF: 0 Novolog U-100 Insulin aspart 100 unit/mL Solution 18 unit SUBCUT QDL RF: 0 Novolog U-100 Insulin aspart 100 unit/mL Solution 28 unit SUBCUT QPM RF: 0 Novolog U-100 Insulin aspart 100 unit/mL Solution 11 unit SUBCUT QAM RF: 0 ergocalciferol (vitamin D2) [Vitamin D2] 50,000 unit Capsule 50,000 unit PO MONTHLY RF: 0 amoxicillin 500 mg Tablet 2,000 mg PO UD RF: 0 metoprolol tartrate 50 mg tablet 25 mg PO QAM RF: 0 furosemide [Lasix] 40 mg tablet 40 mg PO QAM RF: 0 Lyrica 200 mg capsule 200 mg PO BID RF: 0 amiodarone 200 mg tablet 200 mg PO BID 30 Days Qty: 60 RF: 1 Eliquis 2.5 mg Tablet 2.5 mg PO BID RF: 0 clopidogrel 75 mg Tablet 75 mg PO QAM Qty: 30 RF: 0 furosemide 40 mg tablet 80 mg PO UD PRN (Reason: Edema) RF: 0 Basaglar KwikPen U-100 Insulin 100 unit/mL (3 mL) insulin pen 20 unit subcut BID RF: 0 Stand-Alone Forms: Call Back Authorization, [facility] Discharge Orders: Discharge Order (Routine); Ordered 02/14/19 Ordered By: Arjun Hinojosa Admission Data Admit Date/Time: 02/12/19 14:28 Attending Provider: Raad Villegas Admit Provider: Riley Street Primary Care Provider: Lizet Jeter Other Providers: Riley [address] ; Gopi Iraheta Service: Telemetry Other Interventions: Discharge Summary Assessment (RN) Last Done: 02/14/19 17:34 DC Date/Time DO NOT enter until pt leaves facility: 02/14/19 17:50 Supervising Physician Co-Signing Physician Notes I personally examined the patient and verified all [place] points of history and exam, discussed case, and agree with decision making with Dr Hinojosa. Feeling better. Had some reproducible chest pain earlier today that has now totally resolved. Stress test reviewed with cardiology, input greatly appreciated. Vitals noted, in general she is awake and alert pleasant no distress. HEENT normocephalic atraumatic mucous membranes moist. Breathing unlabored no accessory muscle use good effort. Skin shows no rashes no pallor or icterus. EKG is noted. Chest painnonspecificnow pain-free. Stress test low risk. Added long-acting nitrate, outpatient will initiate Repatha for lipids. Stable for home. Resident Activity Tracking Resident Involvement: Resident Care Provided Care Provided: Adult Hospital Medicine
[2019-02-14] MEDS ORDERED: REGADENOSON 0.4 MG/5 ML SYR IV ONE (08:32)
[2019-02-14] MEDS: MULTIVITAMIN TAB PO SCH (11:31)
[2019-02-14] MEDS: ASPIRIN 81 MG ECTAB PO SCH (11:31)
[2019-02-14] MEDS: CLOPIDOGREL BISULFATE 75 MG TAB PO SCH (11:31)
[2019-02-14] MEDS: AMIODARONE 200 MG TAB PO SCH (11:32)
[2019-02-14] MEDS: VITAMIN B COMPLEX TAB PO SCH (11:32)
[2019-02-14] MEDS: APIXABAN 2.5 MG TAB PO SCH (11:32)
[2019-02-14] MEDS: ASCORBIC ACID 500 MG TAB PO SCH (11:34)
[2019-02-14] MEDS: FOLIC ACID 400 MCG TAB PO SCH (11:34)
[2019-02-14] MEDS: INSULIN GLARGINE SOLOSTAR 100 UNITS/ML 3 ML PEN SQ SCH (11:38)
[2019-02-14] MEDS: PREGABALIN 100 MG CAP PO SCH (11:41)
[2019-02-14] MEDS: METOPROLOL TARTRATE 25 MG TAB PO SCH (11:41)
--- NOTE | 2019-02-14 11:46 | Family Medicine Progress Note ---
Date of Service February 14, 2019 Assessment & Plan (1) Paroxysmal A-fib: #Paroxysmal A-fib: Apparent recurrence of paroxysmal atrial fibrillation with chest pain morning of 02/12. Patient was admitted to the telemetry service, continued on her home amiodarone, metoprolol, Eliquis and monitored throughout the admission without recurrence of atrial fibrillation. Cardiology was consulted and recommended IV furosemide 40 mg twice daily, and will consider maintaining aspirin therapy on discharge pending schedule pharmacological SPECT on 02/14. Patient tolerated the procedure well and was subsequently discharged #Angina pectoris: Chest discomfort and shortness of breath consistent with angina pectoris occurred with palpitations morning of 02/12. Patient was admitted to the telemetry service and continued on her home beta-suraj therapy, aspirin therapy as well as PRN nitrates were added. Serial troponins were trended, and peaked on 02/13 with a max value of 0.026. Patient was started on isosorbide mononitrate 20 mg twice daily on 02/13 and has tolerated it well, this medication will be maintained on discharge #CAD Patient has history of not tolerating statins. She is tried all of them on the market and they cause side effects from GI upset all the way to myopathy. I believe this patient would be an excellent candidate for Repatha therapy, will attempt to get this approved for her as an inpatient. If not defer to outpatient physician. #Acute on chronic diastolic heart failure: Patient has a past medical history of diastolic heart failure, on this admission appears to be having an acute exacerbation. BNP on admission was 1581 the patient received IV Lasix twice daily throughout the admission, a Gautam catheter was used for accurate tracking of eyes and O's, on the day of discharge the patient was net 4 L negative and her discharge weight was 87 kg.IV Lasix every 12 hours. #Chronic kidney disease with active medical management without dialysis, stage 3 (moderate): Baseline creatinine appears to be 1.6-1.7, admission creatinine 1.8. patient was administered fluid bolus on admission, BMP was trended daily, on the day of discharge her creatinine was 2.0, this is likely secondary to aggressive diuresis with Lasix. Would recommend follow-up BMP on discharge, primary care physician should ensure her creatinine returned to normal. #Diabetes: Patient's home diabetes medication was held during the admission, she was covered with basal glargine and sliding scale and insulin as needed. #JANICE on home Bipap at night FENa: Diabetic diet Code Status: full DVT PPX: Eliquis Dispo: Telemetry Results & Data Vital Signs (Past 12 Hours) Vital Signs Temp Pulse Resp BP Pulse Ox 02/14/19 11:27 36.5 C 54 L 20 155/71 H 94 02/14/19 11:00 36.4 C L 56 L 18 169/76 H 96 02/14/19 06:50 36.4 C L 53 L 20 144/79 H 02/14/19 02:38 36.6 C 59 L 20 101/62 96 02/13/19 23:53 36.7 C 53 L 18 143/68 H 98 PG Care Time/CCT Total # of Minutes Spent Total Time Spent with Patient: Total time spent is greater than 50% in coordinat ion of care (as documented) at patient's floor/unit and/or counseling patient:
[2019-02-14] MEDS ORDERED: MAGNESIUM HYDROXIDE SUSP 30 ML UDC PO PRN (11:56)
[2019-02-14] MEDS ORDERED: MAGNESIUM HYDROXIDE SUSP 30 ML UDC PO ONE (12:00)
[2019-02-14] MEDS ORDERED: DOCUSATE SODIUM 100 MG CAP PO SCH (12:30)
[2019-02-14 15:05] VITALS: BP 138/70; TEMP 97.5; O2SAT 97
--- NOTE | 2019-02-14 16:13 | Myocardial Perfusion Study ---
Date of Service February 14, 2019 Myocardial Perfusion Study [facility] Myocardial Perfusion Study Report ONE DAY NUCLEAR MEDICINE LEXISCAN TECHNETIUM 99M MYOCARDIAL PERFUSION SCAN Indication: Chest pain, known coronary artery disease. Baseline ECG: Sinus bradycardia, occasional PACs, right axis deviation, nonspecific T wave flattening. Stress ECG: No Lexiscan induced ST changes. No arrhythmias. HR dahiana from 55 to 63 representing 44 % MPHR. SBP 155/67. No Lexiscan induced chest pain. Technique: For the stress portion of the study 32.2 mCi of Technetium 99m Cardiolite IV was injected at 10: 10 on 02/14/2019. 30 minutes following the injection, imaging of the heart was performed in multiple projections. For the rest portion of the study, 10.2 mCi of Technetium 99m Cardiolite was injected IV at 8: 25. One hour following the injection, imaging of the hear was performed in the same projections. Findings: Rotating raw images were reviewed in detail. Potential sources of attenuation include a lateral breast shadow, subtle diaphragmatic attenuation and minimal gut uptake impacting the inferior imaging border of the heart. No significant extracardiac pathologic uptake. Short axis, vertical long axis and horizontal long axis images were reviewed in detail. No visual TID. Moderate, mild, largely reversible, base to mid inferolateral perfusion defect potentially consistent with diaphragmatic attenuation (sum difference score 4). There is also a small, mild, mostly reversible anterior apical perfusion defect (summed difference score 2). Normal LV size. EDV 57 ml. Calculated EF 71 %. No regional wall motion abnormalities. SUMMARY: 1. Mildly abnormal myocardial perfusion study with mild base to mid inferolateral perfusion defect and small/mild anterior apical defect. Defects likely artifactual but potentially represent a small amount of low risk ischemia . 2. Normal LV size and function. LVEF 71 % with no regional wall motion abnormalities. 3. Non-diagnostic stress ECG due to inability to reach target HR with Lexiscan.
--- NOTE | 2019-02-14 16:20 | Cardiology Progress Note ---
Date of Service February 14, 2019 Assessment & Plan (1) Chest pain, precordial: 2. Paroxysmal atrial fibrillation 3. Acute on chronic diastolic heart failure 4. Multivessel coronary artery disease post most recent PCI to RCA 06/2018 5. Chronic kidney disease 6. Hypertension 7. Thrombocytopenia Breathing improved following diuresis, negative almost 4 L since admission. Minimal residual congestion on exam. Slight increase in creatinine No recurrent anginal symptoms. Has remained in sinus rhythm. Reviewed Lexiscan SPECT done today. Subtle mild perfusion defects potentially artifactual but could also correspond to known disease in small OM, apical LAD. No high risk findings. Do not feel needs further invasive evaluation of her CAD. Going forward: Continue home amiodarone, continue home metoprolol Continue anticoagulation with Eliquis and continue clopidogrel Transition IV Lasix to home p.o. Lasix 80 mg daily. Additional 80 mg as needed for weight gain/increased symptoms Continue home long-acting nitrate. Can titrate as an outpatient if additional anginal symptoms. From a cardiac standpoint okay with discharge today if medical issues resolved. Follow-up with me and 2 weeks. Subjective Breathing better today. Denies any chest pain. No other new concerns. Telemetry reviewedsinus bradycardia without any atrial fibrillation. -1700 yesterday Review of Systems Review of Systems: All systems reviewed & are unremarkable except as noted in HPI & below Physical Exam Physical Exam: General: Comfortable, no acute distress HEENT: Sclerae anicteric, mucous membranes moist Lungs: Clear to auscultation with scant crackles at bases bilaterally Cardiac: Regular, bradycardic Abdomen: Soft, nontender, nondistended, positive bowel sounds. Extremities: Warm, well perfused, no edema. Skin: No rashes or lesions. Neuro: Nonfocal Psych: Alert orient x3, normal affect and mood Results & Data Vital Signs (Past 12 Hours) Vital Signs Temp Pulse Pulse Resp BP Pulse Ox 02/14/19 15:04 36.4 C L 58 L 18 138/70 97 02/14/19 13:40 59 L 152/73 H 02/14/19 13:07 55 L 157/73 H 02/14/19 12:22 52 L 02/14/19 11:27 36.5 C 54 L 20 155/71 H 94 02/14/19 11:00 36.4 C L 56 L 18 169/76 H 96 02/14/19 06:50 36.4 C L 53 L 20 144/79 H
[2019-02-14] MEDS: INSULIN ASPART 100 UNITS/ML 3 ML PEN SQ SCH (16:57)
[2019-02-14 17:37] VITALS: PULSE 58
== END 2019-02-14 17:50 | disposition home or self-care (01) | DRG 308 ==
LOC: ED 12:05 → 2S 14:28 → SUATTDRO 14:28 → 2S 15:41

== ENCOUNTER 2019-04-22 13:42 | Observation (INO) ==
[2019-04-22 14:33] LABS: Prothrombin Time 10.5 Seconds (9.0-12.0)
--- NOTE | 2019-04-22 14:44 | XRay Report ---
SINGLE VIEW CHEST CLINICAL HISTORY: Atypical chest pain. FINDINGS: An AP, portable, upright chest radiograph is compared to study dated 02/12/2019 and correlat ed with chest CT dated 06/26/2018. The examination is degraded by portable technique, apical lordotic positioning, and patient rotation. A left subclavian central venous infusion port is unchanged in pos ition. The heart is enlarged noting atherosclerotic calcification of the thoracic aorta. There is mil d pulmonary vascular congestion. Bibasilar airspace opacities likely represent scarring/atelectasis. No large pleural effusion or pneumothorax is seen. Suture material projects over the left upper lung. Volume loss in the left lung suggests previous surgical resection. The skeletal structures are osteo penic. The bony thorax is grossly intact. Degenerative change is noted in the shoulders and thoracic spine. IMPRESSION: 1. Cardiomegaly with mild pulmonary vascular congestion. 2. Bibasilar airspace opacities likely represent scarring/atelectasis. Clinical correlation will be r equired. Electronically signed by: Eliceo Hart M.D. 04/22/2019 2:43 PM
[2019-04-22 14:53] LABS: Albumin Globulin Ratio 0.9 (0.9-2); Albumin Level 3.2 gm/dl (3.4-5.0); BUN Creatinine Ratio 21.7 (10-20); Bilirubin,Total 0.5 mg/dl (0.2-1); Calcium 8.7 mg/dl (8.5-10.1); Creatinine Clr Calc Pharmacy 21.8 ml/min; Est GFR (African American) 24.5; Est GFR (Non-African American) 21.1; Globulin 3.5 gm/dl (2.5-4.0); Potassium 4.1 mmol/L (3.5-5.1); Total Protein 6.7 gm/dl (6.4-8.2); Troponin I 0.021 ng/ml (0-0.045)
[2019-04-22 15:34] LABS: Hemoglobin 12.7 g/dL (12.0-16.0); Mean Corpuscular Hemoglobin 30.5 pg (25-34); Mean Corpuscular Hgb Conc 31.8 g/dL (32-36); Mean Corpuscular Volume 96.2 fL (80-100); Mean Platelet Volume 13.3 fL (7.4-10.4); Platelet Count 117 K/uL (130-400); RDW Coefficient of Variation 16.9 % (11.5-14.5); RDW Standard Deviation 59.4 fL (36.4-46.3); Red Blood Count 4.16 M/uL (4.2-5.4); White Blood Count 4.89 K/uL (4.8-10.8)
[2019-04-22 15:36] LABS: Basophils # (auto) 0.02 K/uL (0-0.2); Basophils % (auto) 0.4 %; Immature Granulocytes # (auto) 0.05 K/uL (0.00-0.02); Lymphocytes # (auto) 0.96 K/uL (1.2-3.4); Lymphocytes % (auto) 19.6 %; Monocytes # (auto) 0.35 K/uL (0.11-0.59); Monocytes % (auto) 7.2 %; Neutrophils # (auto) 3.41 K/uL (1.4-6.5); Neutrophils % (auto) 69.8 %
--- NOTE | 2019-04-22 17:46 | History & Physical Report ---
Date of Service April 22, 2019 Assessment & Plan (1) Atrial fibrillation with RVR: 79-year-old female with a history of coronary artery disease status post multivessel stenting, paroxysmal atrial fibrillation/flutter, apical variant hypertrophic cardiomyopathy, chronic diastolic heart failure, hypertension, hyperlipidemia, insulin dependent diabetes, chronic kidney disease III, JANICE on BiPAP, large B-cell lymphoma in remission, SKYLER lymphoma s/p VATS (on chronic O2 2L) and prior subdural hematoma post craniotomy 11/2016, chronic thrombocytopenia presents with recurrent chest pain due to atrial fibrillation episode. Chest pain: likely secondary to Afib with RVR - now resolved Episode likely triggered by hypoxia as she forgot to turn on her O2 02/14/19 nuclear stress test: small amount of low risk ischemia, EF 71% no regional wall motion abnormality EKG rate 62 SR 1st degree AV block, T wave inversion I and aVL, Qtc 452 Troponin 0.021 CXR cardiomegaly mild pulm vas congestion, bibasilar opacity likely scarring/atelectasis Continue home amiodarone, metoprolol and eliquis Monitor on telemetry ECHO ordered Trend troponin Cardiology consulted CAD s/p multivessel stenting (RCA AWILDA x 2 in 06/2018), apical variant hypertrophic cardiomyopathy, chronic diastolic heart failure, hypertension, hyperlipidemia, Afib Continue home amiodarone, metoprolol, clopidogrel and eliquis Hold home Lasix in the setting of KENDELL and dehydration KENDELL on CKD3 likely secondary to dehydration Pt reports drinking only 750cc (reports this is her renal limit), which sounds pretty low? BUN/Cr 47/2.17 (baseline Cr 1.6) Hold home lasix Follow BMP Hx of thrombocytopenia - stable Plt 117 Continue to monitor DM-Insulin Dependent On SSI and Glargine Check BSG per unit protocol Diabetic neuropathy Continue home lyrica Large B-cell lymphoma in remission, SKYLER lymphoma s/p VATS with resultant chronic O2 requirement Continue home O2 2L at baseline JANICE Continue home BiPAP Anxiety/depression Continue home bupropion FEN/GI: DM2 diet, NPO after midnight in the event she requires PCI, on IVFs LR 100cc/hr Code: DNR/DNI Dispo: Med/surg with telemetry (2) Chronic kidney disease with active medical management without dialysis, stage 3 (moderate): (3) Anxiety: (4) Paroxysmal A-fib: (5) JANICE treated with BiPAP: (6) Depression: (7) Thrombocytopenia: (8) CAD (coronary artery disease): (9) Peripheral neuropathy: (10) Diabetes: (11) HTN (hypertension): History of Present Illness Chief Complaint: Chest pain Primary Care Provider: Lizet Jeter DO 79-year-old female with a history of coronary artery disease status post multivessel stenting, paroxysmal atrial fibrillation/flutter, apical variant hypertrophic cardiomyopathy, chronic diastolic heart failure, hypertension, hyperlipidemia, insulin dependent diabetes, chronic kidney disease III, JANICE on BiPAP, large B-cell lymphoma in remission, SKYLER lymphoma s/p VATS (on chronic O2 2L) and prior subdural hematoma post craniotomy 11/2016, chronic leukopenia presents with recurrent chest pain due to atrial fibrillation episode. Per patient, she was reading a magazine this morning and bent down to fruit picker something from the floor when her A. fib hit her again. She reports sitting down however she continued to have midsternal chest pain that was radiating to her jaw and ears, she was also having left wrist pain and felt pounding sensations in her neck. Of note: She realized she was wearing her nasal cannula but her oxygen was not on which may have triggered her episode of A. fib. Per she has been more forgetful lately and also complaining of more shortness of breath for the past couple months. As a result of her recent symptoms she also had a recent stress test she was not particularly concerning for ischemia. Her chest pain got worse after receiving nitro but has now resolved. She only reports headache at this time. She denies any worsening of her breathing during the episode or now compared to her baseline. She also reports abdominal pain x1 month and chronically irregular bowel movements. She denies any dizziness, fever, chills, nausea, vomiting, dysuria. Allergies Allergy/AdvReac Type Severity Reaction Status Date / Time eptifibatide Allergy Severe ANAPHYLAXIS Verified 04/22/19 15:40 hornet venom Allergy Severe WASP VENOM Verified 04/22/19 15:40 PROTEIN-ANAPHYLAXIS levofloxacin [From Levaquin] Allergy Severe Hives Verified 04/22/19 15:40 atorvastatin Allergy Unknown MUSCLE PAIN Verified 04/22/19 15:40 ezetimibe Allergy Unknown MUSCLE PAIN Verified 04/22/19 15:40 simvastatin Allergy Unknown MUSCLE PAIN Verified 04/22/19 15:40 amlodipine AdvReac Severe Nausea Verified 04/22/19 15:40 mivacurium AdvReac Intermediate palpatation Verified 04/22/19 15:40 s warfarin AdvReac Intermediate EXTREME Verified 04/22/19 15:40 BLEEDING TIMES codeine AdvReac Mild VOMITING Verified 04/22/19 15:40 gemfibrozil AdvReac Mild NAUSEA Verified 04/22/19 15:40 meperidine AdvReac Mild VOMITING Verified 04/22/19 15:40 ondansetron AdvReac Mild vomiting Verified 04/22/19 15:40 ranitidine [From Zantac] AdvReac Mild dyspepsia Verified 04/22/19 15:40 cortisone AdvReac Unknown INCREASES Verified 04/22/19 15:40 SUGAR AND VOMITING? hydralazine AdvReac Unknown VOMITING Verified 04/22/19 15:40 ibuprofen AdvReac Unknown VOMITING Verified 04/22/19 15:40 AND DIARRHEA iodine AdvReac Unknown SHELLFISH Verified 04/22/19 15:40 - VOMITING shellfish derived AdvReac Unknown VOMITING Verified 04/22/19 15:40 Sulfa (Sulfonamide AdvReac Unknown VOMITING Verified 04/22/19 15:40 Antibiotics) Home Medications Home Medications Medication Instructions Recorded Confirmed Type ascorbic acid (vitamin C) [Vitamin 1 g PO QAM 06/20/18 04/22/19 History C] buspirone 5 mg PO BID 06/20/18 04/22/19 History ergocalciferol (vitamin D2) 50,000 unit PO MONTHLY 06/20/18 04/22/19 History [Vitamin D2] folic acid 400 mcg PO BID 06/20/18 04/22/19 History multivitamin 1 tab PO QAM 06/20/18 04/22/19 History Eliquis 2.5 mg PO BID 07/09/18 04/22/19 History clopidogrel 75 mg PO QAM #30 tab 07/09/18 04/22/19 Rx amoxicillin 2,000 mg PO UD 09/14/18 04/22/19 History pregabalin [Lyrica] 200 mg PO BID 01/18/19 04/22/19 History Basaglar KwikPen U-100 Insulin 28 unit SUBCUT BID 02/12/19 04/22/19 History furosemide 40 mg PO UD PRN 02/12/19 04/22/19 History furosemide 40 mg tablet 40 mg PO BID tab 02/26/19 04/22/19 History nitroglycerin 0.4 mg sublingual 0.4 mg SL Q5M PRN #25 tab 02/26/19 04/22/19 History tablet amiodarone 200 mg tablet 200 mg PO BID #180 tab 04/19/19 04/22/19 Rx insulin lispro [Humalog KwikPen 11 unit SUBCUT QAM 04/22/19 04/22/19 History Insulin] insulin lispro [Humalog KwikPen 18 unit SUBCUT .DAILY AFTER LUNCH 04/22/19 04/22/19 History Insulin] insulin lispro [Humalog KwikPen 28 unit SUBCUT .DAILY AFTER DINNER 04/22/19 04/22/19 History Insulin] metoprolol tartrate [Lopressor] 50 mg PO DAILY 04/22/19 04/22/19 History Past Med/Surg History Medical History Angina pectoris (Acute) 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) Chronic kidney disease with active medical management without dialysis, stage 3 (moderate) (Chronic) Thrombocytopenia chronic; baseline platelets low 100's JANICE treated with BiPAP Atrial fibrillation CAD (coronary artery disease) cardiac stents x 6; most recent: AWILDA x2 (mid/distal RCA) 07/06/18* Myocardial infarction X4 Peripheral neuropathy Diabetes (Chronic) HTN (hypertension) CKD (chronic kidney disease) stage 3, GFR 30-59 ml/min Diastolic CHF Dyslipidemia Hypertrophic cardiomyopathy apical variant Lung cancer Respiratory failure 2-3L O2 Surgical History History of cardioversion MULTIPLE History of lung surgery PARTIAL LEFT LOBECTOMY (2013) Hx of brain surgery 2017 S/P FALL/INJURY; SUBSEQUENT BLOOD CLOT EVACUATION S/P cardiac catheterization 7 TOTAL; CARDIAC STENTS X6 S/P hysterectomy S/P tonsillectomy Family History Father Cancer Heart disease Diabetes Mother Stroke Hypertension Grandmother (Maternal) Coronary heart disease Stroke Family/Other Multiple sclerosis Brother Coronary heart disease Grandfather (Maternal) Heart disease Grandfather (Paternal) Diabetes Aunt Muscular dystrophy Other Gallbladder disease Kidney stones Social History Preferred Language: Korean Communication Ability: Effective Delivery Motorcycle Driver Required: No Beliefs That Will Affect Care: None marital status: Current Living Situation: Spouse 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: Retired/Disabled Feels Safe at Home: Yes Safety Concerns: Feels Safe At This Time Smoking Status: Never smoker Second Hand Exposure: No ; Hx Alcohol Use: No Hx Substance Use: No Review of Systems Review of Systems: As per HPI Physical Exam Physical Exam: General: In NAD, pleasant HEENT: dry oral mucous membranes Neuro: A&O x 4 Pulm: Bibasilar crackles and diminished breath sounds CV: RRR, no m/r/g, cap refill 3 secs Abdomen:+BS, no TTP in all quadrants, non-distended LE: 1+ edema around ankles only, no calf TTP Results & Data Vital Signs (Past 12 Hours) Vital Signs Temp Pulse Pulse Resp BP BP Pulse Ox 04/22/19 17:00 53 L 16 161/75 H 97 04/22/19 15:59 55 L 16 127/68 97 04/22/19 13:59 36.6 C 63 16 159/73 H 96 Laboratory Results Abnormal lab results 04/22/19 04/22/19 04/22/19 Range/Units 13:55 13:55 16:27 RBC 4.16 L (4.2-5.4) M/uL MCHC 31.8 L (32-36) g/dL RDW Std Deviation 59.4 H (36.4-46.3) fL RDW Coeff of Nhi 16.9 H (11.5-14.5) % Plt Count 117 L (130-400) K/uL MPV 13.3 H (7.4-10.4) fL Immature Gran # (Auto) 0.05 H (0.00-0.02) K/uL Lymph # (Auto) 0.96 L (1.2-3.4) K/uL BUN 47 H (7-18) mg/dl Creatinine 2.17 H (0.6-1.2) mg/dl BUN/Creatinine Ratio 21.7 H (10-20) Glucose 301 H* (70-99) mg/dl POC Glucose 253 H (70-99) Albumin 3.2 L (3.4-5.0) gm/dl Diagnostic Findings SINGLE VIEW CHEST CLINICAL HISTORY: Atypical chest pain. FINDINGS: An AP, portable, upright chest radiograph is compared to study dated 02/12/2019 and correlated with chest CT dated 06/26/2018. The examination is degraded by portable technique, apical lordotic positioning, and patient rotation. A left subclavian central venous infusion port is unchanged in position. The heart is enlarged noting atherosclerotic calcification of the thoracic aorta. There is mild pulmonary vascular congestion. Bibasilar airspace opacities likely represent scarring/atelectasis. No large pleural effusion or pneumothorax is seen. Suture material projects over the left upper lung. Volume loss in the left lung suggests previous surgical resection. The skeletal structu res are osteopenic. The bony thorax is grossly intact. Degenerative change is noted in the shoulders and thoracic spine. IMPRESSION: 1. Cardiomegaly with mild pulmonary vascular congestion. 2. Bibasilar airspace opacities likely represent scarring/atelectasis. Clinical correlation will be required. Code Status & VTE Plan Code Status DNR/DNI Supervising Physician Co-Signing Physician Notes Resident Physician Supervision Note: I independently interviewed and examined the patient and verified the [place] history and physical, reviewed labs and image studies, discussed the case with the resident Dr. Iraheta and agree with the findings and care plan. PG Care Time/CCT Total # of Minutes Spent Total Time Spent with Patient: Total time spent is greater than 50% in coordination of care (as documented) at patient's floor/unit and/or counseling patient: Resident Activity Tracking Resident Involvement: Resident Care Provided Care Provided: Adult Hospital Medicine (1) Diabetes Diabetes mellitus complication status: without complication Diabetes mellitus exterminator helper termite insulin use: with exterminator helper termite use Diabetes mellitus type: type 2 Qualified Code(s): E11.9 - Type 2 diabetes mellitus without complications; Z79.4 - roasterman (current) use of insulin (2) CAD (coronary artery disease) Associated angina: without angina Coronary Disease-Associated Artery/Lesion type: [place] artery [place] vs. transplanted heart: [place] heart Qualified Code(s): I25.10 - Atherosclerotic heart disease of [place] coronary artery without angina pectoris (3) Depression Depression Type: unspecified Qualified Code(s): F32.9 - Major depressive disorder, single episode, unspecified (4) HTN (hypertension) Hypertension type: essential hypertension Qualified Code(s): I10 - Essential (primary) hypertension
[2019-04-22] MEDS ORDERED: GLUCOSE 40% GEL 15 GM TUBE PO PRN (19:14)
[2019-04-22] MEDS ORDERED: POLYETHYLENE (MIRALAX) 17 GM PACK PO PRN (19:14)
[2019-04-22] MEDS ORDERED: MAGNESIUM HYDROXIDE SUSP 30 ML UDC PO PRN (19:14)
[2019-04-22] MEDS ORDERED: ACETAMINOPHEN 325 MG TAB PO PRN (19:14)
[2019-04-22] MEDS ORDERED: ONDANSETRON INJ 2 MG/ML 2 ML VIAL IV PRN (19:14)
[2019-04-22] MEDS ORDERED: CARBOHYDRATES FOR HYPOGLYCEMIA PO PRN (19:14)
[2019-04-22] MEDS ORDERED: GLUCAGON FOR INJ 1 MG VIAL SQ PRN (19:14)
[2019-04-22] MEDS ORDERED: ALUMINUM/MAGNESIUM SUSP 30 ML UDC PO PRN (19:14)
[2019-04-22] MEDS ORDERED: DEXTROSE 50% 50 ML SYRINGE IV PRN (19:14)
[2019-04-22] MEDS ORDERED: GLUCOSE 10 TABS/TUBE PO PRN (19:14)
--- NOTE | 2019-04-22 19:49 | Emergency Department Note ---
Entered by Shaina Cooley acting as a scribe for Raad Andre DO History of Present Illness General Chief complaint: Chest Pain Stated complaint: chest pain/sob Source: patient and EMS Mode of arrival: EMS Limitations: no limitations History of Present Illness Location: chest Radiation: non-radiation Pain Consistency: + constant Quality: + other ("pressure" ) Relieved By: + none Exacerbated By: + medication (2 Nitro) Associated symptoms: + shortness of breath Treatments prior to arrival: other ( Nitro) The patient is a 79 year old female with a PMHX of atrial fibrillation on Eliquis and Plavix, CKD, COPD, DM, DVT, HTN, HI and JANICE who presents to the ED with complaints of chest pain. She was brought to the ED via EMS. She states around 1130 today as she was reading a magazine, she developed chest pain that she describes as feeling like "pressure". 2 Nitro made her pain "worse". She has been short of breath, but notes she is chronically on oxygen. The patient has a history of previous HI's and states her last stent was placed within the past 1 year. She notes that this feels like her previous onset of A. fib. EMS EKG showed A. fib. She is currently in no longer in A. fib. She currently has no chest pain at this time. She denies any shortness of breath. Home Medications Home Medications Medication Instructions Recorded Confirmed Type ascorbic acid (vitamin C) [Vitamin 1 g PO QAM 06/20/18 04/22/19 History C] buspirone 5 mg PO BID 06/20/18 04/22/19 History ergocalciferol (vitamin D2) 50,000 unit PO MONTHLY 06/20/18 04/22/19 History [Vitamin D2] folic acid 400 mcg PO BID 06/20/18 04/22/19 History multivitamin 1 tab PO QAM 06/20/18 04/22/19 History Eliquis 2.5 mg PO BID 07/09/18 04/22/19 History clopidogrel 75 mg PO QAM #30 tab 07/09/18 04/22/19 Rx amoxicillin 2,000 mg PO UD 09/14/18 04/22/19 History pregabalin [Lyrica] 200 mg PO BID 01/18/19 04/22/19 History Basaglar KwikPen U-100 Insulin 28 unit SUBCUT BID 02/12/19 04/22/19 History furosemide 40 mg PO UD PRN 02/12/19 04/22/19 History furosemide 40 mg tablet 40 mg PO BID tab 02/26/19 04/22/19 History nitroglycerin 0.4 mg sublingual 0.4 mg SL Q5M PRN #25 tab 02/26/19 04/22/19 History tablet amiodarone 200 mg tablet 200 mg PO BID #180 tab 04/19/19 04/22/19 Rx insulin lispro [Humalog KwikPen 11 unit SUBCUT QAM 04/22/19 04/22/19 History Insulin] insulin lispro [Humalog KwikPen 18 unit SUBCUT .DAILY AFTER LUNCH 04/22/19 04/22/19 History Insulin] insulin lispro [Humalog KwikPen 28 unit SUBCUT .DAILY AFTER DINNER 04/22/19 04/22/19 History Insulin] metoprolol tartrate [Lopressor] 50 mg PO DAILY 04/22/19 04/22/19 History Allergies Allergy/AdvReac Type Severity Reaction Status Date / Time eptifibatide Allergy Severe ANAPHYLAXIS Verified 04/22/19 15:40 hornet venom Allergy Severe WASP VENOM Verified 04/22/19 15:40 PROTEIN-ANAPHYLAXIS levofloxacin [From Levaquin] Allergy Severe Hives Verified 04/22/19 15:40 atorvastatin Allergy Unknown MUSCLE PAIN Verified 04/22/19 15:40 ezetimibe Allergy Unknown MUSCLE PAIN Verified 04/22/19 15:40 simvastatin Allergy Unknown MUSCLE PAIN Verified 04/22/19 15:40 amlodipine AdvReac Severe Nausea Verified 04/22/19 15:40 mivacurium AdvReac Intermediate palpatation Verified 04/22/19 15:40 s warfarin AdvReac Intermediate EXTREME Verified 04/22/19 15:40 BLEEDING TIMES codeine AdvReac Mild VOMITING Verified 04/22/19 15:40 gemfibrozil AdvReac Mild NAUSEA Verified 04/22/19 15:40 meperidine AdvReac Mild VOMITING Verified 04/22/19 15:40 ondansetron AdvReac Mild vomiting Verified 04/22/19 15:40 ranitidine [From Zantac] AdvReac Mild dyspepsia Verified 04/22/19 15:40 cortisone AdvReac Unknown INCREASES Verified 04/22/19 15:40 SUGAR AND VOMITING? hydralazine AdvReac Unknown VOMITING Verified 04/22/19 15:40 ibuprofen AdvReac Unknown VOMITING Verified 04/22/19 15:40 AND DIARRHEA iodine AdvReac Unknown SHELLFISH Verified 04/22/19 15:40 - VOMITING shellfish derived AdvReac Unknown VOMITING Verified 04/22/19 15:40 Sulfa (Sulfonamide AdvReac Unknown VOMITING Verified 04/22/19 15:40 Antibiotics) Past Med/Surg History Medical History Angina pectoris (Acute) 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) Chronic kidney disease with active medical management without dialysis, stage 3 (moderate) (Chronic) Thrombocytopenia chronic; baseline platelets low 100's JANICE treated with BiPAP Atrial fibrillation CAD (coronary artery disease) cardiac stents x 6; most recent: AWILDA x2 (mid/distal RCA) 07/06/18* Myocardial infarction X4 Peripheral neuropathy Diabetes (Chronic) HTN (hypertension) CKD (chronic kidney disease) stage 3, GFR 30-59 ml/min Diastolic CHF Dyslipidemia Hypertrophic cardiomyopathy apical variant Lung cancer Respiratory failure 2-3L O2 Surgical History History of cardioversion MULTIPLE History of lung surgery PARTIAL LEFT LOBECTOMY (2013) Hx of brain surgery 2017 S/P FALL/INJURY; SUBSEQUENT BLOOD CLOT EVACUATION S/P cardiac catheterization 7 TOTAL; CARDIAC STENTS X6 S/P hysterectomy S/P tonsillectomy Family History Father Cancer Heart disease Diabetes Mother Stroke Hypertension Grandmother (Maternal) Coronary heart disease Stroke Family/Other Multiple sclerosis Brother Coronary heart disease Grandfather (Maternal) Heart disease Grandfather (Paternal) Diabetes Aunt Muscular dystrophy Other Gallbladder disease Kidney stones Social History Preferred Language: Mohawk Communication Ability: Effective 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 and A total of 10 systems reviewed and were otherwise negative Physical Exam Vital Signs Vital Signs - 24 hr 04/22/19 13:59 04/22/19 15:59 04/22/19 17:00 Temperature 36.6 C Temperature Source Oral Sepsis Recent Fever Within 48 Hours No Sepsis New/Unexplained Change in Mental Status No Sepsis Action Taken by Nursing No Action Required Pulse Rate 63 Pulse Rate [Apical] 55 L 53 L Respiratory Rate 16 16 16 Blood Pressure 159/73 H Blood Pressure [Left Arm] 127/68 161/75 H Blood Pressure Mean 101 Blood Pressure Mean [Left Arm] 87 103 Pulse Oximetry 96 97 97 Oxygen Delivery Method Nasal Cannula Nasal Cannula Nasal Cannula Oxygen Flow Rate 2 2 2 04/22/19 18:11 Temperature Temperature Source Sepsis Recent Fever Within 48 Hours Sepsis New/Unexplained Change in Mental Status Sepsis Action Taken by Nursing Pulse Rate Pulse Rate [Apical] 60 Respiratory Rate 16 Blood Pressure Blood Pressure [Left Arm] 165/72 H Blood Pressure Mean Blood Pressure Mean [Left Arm] 103 Pulse Oximetry 97 Oxygen Delivery Method Room Air Oxygen Flow Rate 2 GENERAL: Patient is alert, chronically ill-appearing, disheveled, on nasal canula Oxygen EYE EXAM: normal conjunctiva OROPHARYNX: no exudate, no erythema, lips, buccal mucosa, and tongue normal and mucous membranes are moist NECK: supple, no nuchal rigidity, no adenopathy, non-tender LUNGS: Clear to auscultation. Normal chest wall mechanics HEART: no murmurs, S1 normal and S2 normal ABDOMEN: abdomen soft, non-tender, normo-active bowel sounds, no masses, no rebound or guarding. BACK: Back is symmetrical on inspection and there is no deformity, no midline tenderness, no CVA tenderness. SKIN: no rashes and no bruising UPPER EXTREMITIES: upper extremities are grossly normal. LOWER EXTREMITIES: No pitting edema. Calves are equal bilaterally. NEURO EXAM: Normal sensorium, cranial nerves II-XII intact, normal speech, no weakness of arms, no weakness of legs. Gross sensation intact. Course ED COURSE: Vital signs were reviewed and showed the patient is hypertensive. The patients medical record was reviewed The above diagnostic studies were performed and reviewed. ED treatments and interventions as stated above. 1351: The patient was evaluated in room A10. A complete history and physical examination was performed. 1630: I discussed the patients case with Dr. Goldberg, [facility] Hospitalist. The patient will be further evaluated. 1645: Upon reevaluation, the patient is resting comfortably. I discussed my findings with the patient and she understands and agrees with the treatment plan. Based on the patients age, coexisting illnesses, exam and lab findings the decision to treat as an inpatient was made. The patient remained stable while under my care. The patient will be evaluated for further management. Medical Decision Making Differential Diagnosis Differential diagnoses includes but is not limited to acute coronary syndrome, myocardial infarction, pericarditis, pulmonary embolus, aortic dissection, pneumonia, pneumothorax, musculoskeletal, shingles, esophageal. Medical Records Attestation: I reviewed the patient's medical records. Home Medications Current Medication List: was personally reviewed by me Laboratory Data Attestation: I reviewed the patient's lab results. Result diagrams: 04/22/19 13:55 04/22/19 13:55 Lab Results 04/22/19 04/22/19 04/22/19 Range/Units 13:55 13:55 13:55 WBC 4.89 (4.8-10.8) K/uL RBC 4.16 L (4.2-5.4) M/uL Hgb 12.7 (12.0-16.0) g/dL Hct 40.0 (37-47) % MCV 96.2 (80-100) fL MCH 30.5 (25-34) pg MCHC 31.8 L (32-36) g/dL RDW Std Deviation 59.4 H (36.4-46.3) fL RDW Coeff of Nhi 16.9 H (11.5-14.5) % Plt Count 117 L (130-400) K/uL MPV 13.3 H (7.4-10.4) fL Immature Gran % (Auto) 1.0 % Neut % (Auto) 69.8 % Lymph % (Auto) 19.6 % Mchenry % (Auto) 7.2 % Eos % (Auto) 2.0 % Baso % (Auto) 0.4 % Immature Gran # (Auto) 0.05 H (0.00-0.02) K/uL Neut # (Auto) 3.41 (1.4-6.5) K/uL Lymph # (Auto) 0.96 L (1.2-3.4) K/uL Mchenry # (Auto) 0.35 (0.11-0.59) K/uL Eos # (Auto) 0.10 (0-0.5) K/uL Baso # (Auto) 0.02 (0-0.2) K/uL PT 10.5 (9.0-12.0) Seconds INR 1.0 (0.9-1.1) Sodium 142 (136-145) mmol/L Potassium 4.1 (3.5-5.1) mmol/L Chloride 101 (98-107) mmol/L Carbon Dioxide 31 (21-32) mmol/L Anion Gap 10.0 (3-11) BUN 47 H (7-18) mg/dl Creatinine 2.17 H (0.6-1.2) mg/dl Est Cr Clr Drug Dosing 21.8 ml/min Est GFR ( Amer) 24.5 Est GFR (Non-Af Amer) 21.1 BUN/Creatinine Ratio 21.7 H (10-20) Glucose 301 H* (70-99) mg/dl POC Glucose (70-99) Calcium 8.7 (8.5-10.1) mg/dl Total Bilirubin 0.5 (0.2-1) mg/dl AST 19 (15-37) U/L ALT 26 (12-78) U/L Alkaline Phosphatase 71 (45-117) U/L Troponin I 0.021 (0-0.045) ng/ml Total Protein 6.7 (6.4-8.2) gm/dl Albumin 3.2 L (3.4-5.0) gm/dl Globulin 3.5 (2.5-4.0) gm/dl Albumin/Globulin Ratio 0.9 (0.9-2) Lipase 366 (73-393) U/L Beta-Hydroxybutyric Acd (0.2-2.81) mg/dl Specimen Hemolysis 04/22/19 Range/Units 16:27 WBC (4.8-10.8) K/uL RBC (4.2-5.4) M/uL Hgb (12.0-16.0) g/dL Hct (37-47) % MCV (80-100) fL MCH (25-34) pg MCHC (32-36) g/dL RDW Std Deviation (36.4-46.3) fL RDW Coeff of Nhi (11.5-14.5) % Plt Count (130-400) K/uL MPV (7.4-10.4) fL Immature Gran % (Auto) % Neut % (Auto) % Lymph % (Auto) % Mchenry % (Auto) % Eos % (Auto) % Baso % (Auto) % Immature Gran # (Auto) (0.00-0.02) K/uL Neut # (Auto) (1.4-6.5) K/uL Lymph # (Auto) (1.2-3.4) K/uL Mchenry # (Auto) (0.11-0.59) K/uL Eos # (Auto) (0-0.5) K/uL Baso # (Auto) (0-0.2) K/uL PT (9.0-12.0) Seconds INR (0.9-1.1) Sodium (136-145) mmol/L Potassium (3.5-5.1) mmol/L Chloride (98-107) mmol/L Carbon Dioxide (21-32) mmol/L Anion Gap (3-11) BUN (7-18) mg/dl Creatinine (0.6-1.2) mg/dl Est Cr Clr Drug Dosing ml/min Est GFR ( Amer) Est GFR (Non-Af Amer) BUN/Creatinine Ratio (10-20) Glucose (70-99) mg/dl POC Glucose 253 H (70-99) Calcium (8.5-10.1) mg/dl Total Bilirubin (0.2-1) mg/dl AST (15-37) U/L ALT (12-78) U/L Alkaline Phosphatase (45-117) U/L Troponin I (0-0.045) ng/ml Total Protein (6.4-8.2) gm/dl Albumin (3.4-5.0) gm/dl Globulin (2.5-4.0) gm/dl Albumin/Globulin Ratio (0.9-2) Lipase (73-393) U/L Beta-Hydroxybutyric Acd (0.2-2.81) mg/dl Specimen Hemolysis Imaging Data Radiologist's Impression: Radiology results as stated below per my review and the radiologist's interpretation: SINGLE VIEW CHEST CLINICAL HISTORY: Atypical chest pain. FINDINGS: An AP, portable, upright chest radiograph is compared to study dated 02/12/2019 and correlated with chest CT dated 06/26/2018. The examination is de graded by portable technique, apical lordotic positioning, and patient rotation. A left subclavian central venous infusion port is unchanged in position. The heart is enlarged noting atherosclerotic calcification of the thoracic aorta. There is mild pulmonary vascular congestion. Bibasilar airspace opacities likely represent scarring/atelectasis. No large pleural effusion or pneumothorax is seen. Suture material projects over the left upper lung. Volume loss in the left lung suggests previous surgical resection. The skeletal structures are osteopenic. The bony thorax is grossly intact. Degenerative change is noted in the shoulders and thoracic spine. IMPRESSION: 1. Cardiomegaly with mild pulmonary vascular congestion. 2. Bibasilar airspace opacities likely represent scarring/atelectasis. Clinical correlation will be required. Electronically signed by: Eliceo Hart M.D. 04/22/2019 2:43 PM ECG Data Attestation: I personally reviewed and interpreted this ECG as follows: Indication: chest pain Rate (beats per minute): 113 Rhythm: atrial fibrillation Findings: + other (Normal axis) and + LBBB Additional Comments: 2nd EKG on 04/22/2019: Sinus rhythm, rate of 62, inferior Q- waves, TWI and ST depressions in high lateral leads, septal Q-waves, worse than previous EKG from 02/14/2019 Blood Pressure Blood Pressure Findings: Elevated blood pressure Blood Pressure Disposition: further management by hospitalist JOSE Narrative Patient is a 79-year-old female with an extensive past medical history including A. fib, hyperlipidemia, CKD, CAD, HI, diabetes, hypertension who presents the ER for chest pain. Upon presentation symptoms have resolved. IV was established blood work was obtained showed no significant leukocytosis or anemia. INR was unremarkable. BMP with a creatinine 2.1. Slightly elevated off of a baseline of 1.9. Glucose was elevated at 301. Troponin was detectable but not positive. Lipase is normal. Chest x-ray without any focal infiltrate. EKG did show new/worsening ST depressions in the high lateral leads. EMS EKG did confirm A. fib and a low rate of 113. Patient was updated bedside. She declined aspirin. She is on Plavix and blood thinners. Due to the EKG changes with her extensive history discussed with the hospitalist for observation. Impression & Plan Chest pain, precordial, Atrial fibrillation with RVR, Acute electrocardiogram changes Discharge Plan Visit Data *Final* Discharge Date/Time: 04/22/19 18:35 Chief Complaint: Chest Pain Stated Complaint: chest pain/sob ED Provider: Raad Andre Discharge Problem: Chest pain, precordial, Atrial fibrillation with RVR, Acute electrocardiogram changes Patient Disposition: Admitted As Inpatient Discharge Instructions Interventions: ED Discharge Assessment Last Done: 04/22/19 18:35 The scribe's documentation has been prepared under my direction and personally reviewed by me in its entirety. I confirm that the note above accurately reflects all work, treatment, procedures, and medical decision making performed by me.
[2019-04-22] MEDS: FOLIC ACID 400 MCG TAB PO SCH (21:12)
[2019-04-22] MEDS: PREGABALIN 100 MG CAP PO SCH (21:12)
[2019-04-22] MEDS: APIXABAN 2.5 MG TAB PO SCH (21:13)
[2019-04-22] MEDS: AMIODARONE 200 MG TAB PO SCH (21:14)
[2019-04-22] MEDS: INSULIN GLARGINE SOLOSTAR 100 UNITS/ML 3 ML PEN SC SCH (21:14)
[2019-04-22] MEDS: INSULIN ASPART 100 UNITS/ML 3 ML PEN SC SCH (21:17)
[2019-04-22] MEDS: LACTATED RINGER'S 1,000 ML IV SCH (21:19)
[2019-04-23] MEDS ORDERED: HEPARIN 100 UNIT/ML 5ML FLUSH FLUSH PRN (01:23)
[2019-04-23 04:13] LABS: Basophils # (auto) 0.02 K/uL (0-0.2); Basophils % (auto) 0.5 %; Eosinophils # (auto) 0.11 K/uL (0-0.5); Eosinophils % (auto) 2.8 %; Hemoglobin 12.3 g/dL (12.0-16.0); Immature Granulocytes # (auto) 0.03 K/uL (0.00-0.02); Immature Granulocytes % (auto) 0.8 %; Lymphocytes # (auto) 0.83 K/uL (1.2-3.4); Lymphocytes % (auto) 21.3 %; Mean Corpuscular Hemoglobin 30.3 pg (25-34); Mean Corpuscular Hgb Conc 31.5 g/dL (32-36); Mean Corpuscular Volume 96.1 fL (80-100); Mean Platelet Volume 11.8 fL (7.4-10.4); Monocytes # (auto) 0.45 K/uL (0.11-0.59); Monocytes % (auto) 11.5 %; Neutrophils # (auto) 2.46 K/uL (1.4-6.5); Neutrophils % (auto) 63.1 %; Platelet Count 101 K/uL (130-400); RDW Coefficient of Variation 16.9 % (11.5-14.5); RDW Standard Deviation 59.3 fL (36.4-46.3); Red Blood Count 4.06 M/uL (4.2-5.4)
[2019-04-23 04:29] LABS: BUN Creatinine Ratio 25.5 (10-20); Calcium 8.8 mg/dl (8.5-10.1); Creatinine Clr Calc Pharmacy 24.9 ml/min; Est GFR (African American) 28.8; Est GFR (Non-African American) 24.8; Potassium 3.7 mmol/L (3.5-5.1)
[2019-04-23 04:40] LABS: Troponin I 0.102 ng/ml (0-0.045)
[2019-04-23 05:23] LABS: Stomatocytes 1+
[2019-04-23 06:09] LABS: Estimated Average Glucose 206 mg/dl; Hemoglobin A1C 8.8 % (4.5-5.6)
[2019-04-23] MEDS ORDERED: PERFLUTREN LIPID MICROSPHERE (DEFINITY) IV ONE (06:54)
[2019-04-23] MEDS: PREGABALIN 100 MG CAP PO SCH (08:47)
[2019-04-23] MEDS: APIXABAN 2.5 MG TAB PO SCH (08:52)
[2019-04-23] MEDS ORDERED: CLOPIDOGREL BISULFATE 75 MG TAB PO SCH (09:00)
[2019-04-23] MEDS ORDERED: METOPROLOL TARTRATE 50 MG TAB PO SCH (09:00)
[2019-04-23] MEDS: FOLIC ACID 400 MCG TAB PO SCH (10:08)
[2019-04-23] MEDS: AMIODARONE 200 MG TAB PO SCH (10:09)
[2019-04-23] MEDS: INSULIN GLARGINE SOLOSTAR 100 UNITS/ML 3 ML PEN SC SCH (10:10)
[2019-04-23] MEDS: INSULIN ASPART 100 UNITS/ML 3 ML PEN SC SCH ×3 (10:11→17:10)
[2019-04-23] MEDS: LACTATED RINGER'S 1,000 ML IV SCH (12:27)
--- NOTE | 2019-04-23 18:09 | Cardiology Consultation ---
Date of Consultation April 23, 2019 Assessment & Plan (1) Atrial fibrillation: 2. Elevated troponin 3. Chronic diastolic heart failure 4. Multivessel coronary artery disease post most recent PCI to RCA 06/2018 5. Chronic kidney disease 6. Hypertension 7. Thrombocytopenia 8. Type 2 DM Patient has remained chest pain free since admission. Troponin peaked and echo unchanged. Chest pain reminiscent of prior AF symptoms. Brief asymptomatic episodes of SVT on monitor. At this point low suspicion presenting symptoms represent ACS and suspect troponin secondary to demand in the setting of AF and chronic multivessel CAD. No clear triggers for AF recurrence. At this point limited additional options for rhythm control as has been maintained on bid amiodarone. For now -- -- Continue to monitor on telemetry -- Continue BID amiodarone and metoprolol -- Stop IV fluids -- resume daily lasix tomorrow -- Continue home eliquis and clopidogrel -- No need for additional ischemic testing at this point. -- If electrically stable overnight OK with discharge with close cardiac follow- up. History of Present Illness Attending Physician: Raad Villegas DO History of Present Illness Mrs. Hagen is a very pleasant 79-year-old woman well-known to me from the outpatient setting and prior hospitalizations readmitted yesterday with acute onset chest pain she attributes to her atrial fibrillation. Patient's prior history remarkable for coronary artery disease post multivessel stenting last with 2 stents to RCA in 06/2018, questionable apical variant hypertrophic cardiomyopathy, chronic diastolic heart failure, hypertension, dyslipidemia, insulin-dependent diabetes, stage III chronic kidney disease, JANICE, large B-cell lymphoma in remission and prior subdural hematoma postcraniotomy. Recent issues have focused on diastolic heart failure requiring escalating diuretics and symptomatic atrial fibrillation with RVR. She was loaded on amiodarone and underwent successful electrical cardioversion on 02/05/2019. She was re-hospitalized 02/14/2019 in the setting of chest pain attributed to atrial fibrillation. Underwent diuresis and stress test which was negative for significant ischemia. Last seen 03/12/2019 at which weight mildly elevated and lasix increased to BID 40mg. Represented yesterday after developed chest discomfort while sitting reading a magazine. States she can tell difference between her AF chest pain and OK chest pain and this was definitely her AF. Reportedly converted to sinus rhythm on arrival to ED. Since that time has been chest pain free and feels like herself other than being a little weak. Tele remarkable for a few episodes of apparent AFL/AT for 2 minutes during which patient asymptomatic. Trop mildly elevated to 0.1 and trending down. Initial ECG with lateral TWI but no other significant changes. Echo showed preserved LV function without new RWMA. Allergies Allergy/AdvReac Type Severity Reaction Status Date / Time eptifibatide Allergy Severe ANAPHYLAXIS Verified 04/22/19 15:40 hornet venom Allergy Severe WASP VENOM Verified 04/22/19 15:40 PROTEIN-ANAPHYLAXIS levofloxacin [From Levaquin] Allergy Severe Hives Verified 04/22/19 15:40 atorvastatin Allergy Unknown MUSCLE PAIN Verified 04/22/19 15:40 ezetimibe Allergy Unknown MUSCLE PAIN Verified 04/22/19 15:40 simvastatin Allergy Unknown MUSCLE PAIN Verified 04/22/19 15:40 amlodipine AdvReac Severe Nausea Verified 04/22/19 15:40 mivacurium AdvReac Intermediate palpatation Verified 04/22/19 15:40 s warfarin AdvReac Intermediate EXTREME Verified 04/22/19 15:40 BLEEDING TIMES codeine AdvReac Mild VOMITING Verified 04/22/19 15:40 gemfibrozil AdvReac Mild NAUSEA Verified 04/22/19 15:40 meperidine AdvReac Mild VOMITING Verified 04/22/19 15:40 ondansetron AdvReac Mild vomiting Verified 04/22/19 15:40 ranitidine [From Zantac] AdvReac Mild dyspepsia Verified 04/22/19 15:40 cortisone AdvReac Unknown INCREASES Verified 04/22/19 15:40 SUGAR AND VOMITING? hydralazine AdvReac Unknown VOMITING Verified 04/22/19 15:40 ibuprofen AdvReac Unknown VOMITING Verified 04/22/19 15:40 AND DIARRHEA iodine AdvReac Unknown SHELLFISH Verified 04/22/19 15:40 - VOMITING shellfish derived AdvReac Unknown VOMITING Verified 04/22/19 15:40 Sulfa (Sulfonamide AdvReac Unknown VOMITING Verified 04/22/19 15:40 Antibiotics) Home Medications Home Medications Medication Instructions Recorded Confirmed Type ascorbic acid (vitamin C) [Vitamin 1 g PO QAM 06/20/18 04/22/19 History C] buspirone 5 mg PO BID 06/20/18 04/22/19 History ergocalciferol (vitamin D2) 50,000 unit PO MONTHLY 06/20/18 04/22/19 History [Vitamin D2] folic acid 400 mcg PO BID 06/20/18 04/22/19 History multivitamin 1 tab PO QAM 06/20/18 04/22/19 History Eliquis 2.5 mg PO BID 07/09/18 04/22/19 History clopidogrel 75 mg PO QAM #30 tab 07/09/18 04/22/19 Rx amoxicillin 2,000 mg PO UD 09/14/18 04/22/19 History pregabalin [Lyrica] 200 mg PO BID 01/18/19 04/22/19 History Basaglar KwikPen U-100 Insulin 28 unit SUBCUT BID 02/12/19 04/22/19 History furosemide 40 mg PO UD PRN 02/12/19 04/22/19 History furosemide 40 mg tablet 40 mg PO BID tab 02/26/19 04/22/19 History nitroglycerin 0.4 mg sublingual 0.4 mg SL Q5M PRN #25 tab 02/26/19 04/22/19 History tablet amiodarone 200 mg tablet 200 mg PO BID #180 tab 04/19/19 04/22/19 Rx insulin lispro [Humalog KwikPen 11 unit SUBCUT QAM 04/22/19 04/22/19 History Insulin] insulin lispro [Humalog KwikPen 18 unit SUBCUT .DAILY AFTER LUNCH 04/22/19 04/22/19 History Insulin] insulin lispro [Humalog KwikPen 28 unit SUBCUT .DAILY AFTER DINNER 04/22/19 04/22/19 History Insulin] metoprolol tartrate [Lopressor] 50 mg PO DAILY 04/22/19 04/22/19 History Patient History Medical History Angina pectoris (Acute) 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) Chronic kidney disease with active medical management without dialysis, stage 3 (moderate) (Chronic) Thrombocytopenia chronic; baseline platelets low 100's JANICE treated with BiPAP Atrial fibrillation CAD (coronary artery disease) cardiac stents x 6; most recent: AWILDA x2 (mid/distal RCA) 07/06/18* Myocardial infarction X4 Peripheral neuropathy Diabetes (Chronic) HTN (hypertension) CKD (chronic kidney disease) stage 3, GFR 30-59 ml/min Diastolic CHF Dyslipidemia Hypertrophic cardiomyopathy apical variant Lung cancer Respiratory failure 2-3L O2 Surgical History History of cardioversion MULTIPLE History of lung surgery PARTIAL LEFT LOBECTOMY (2013) Hx of brain surgery 2017 S/P FALL/INJURY; SUBSEQUENT BLOOD CLOT EVACUATION S/P cardiac catheterization 7 TOTAL; CARDIAC STENTS X6 S/P hysterectomy S/P tonsillectomy Family History Father Cancer Heart disease Diabetes Mother Stroke Hypertension Grandmother (Maternal) Coronary heart disease Stroke Family/Other Multiple sclerosis Brother Coronary heart disease Grandfather (Maternal) Heart disease Grandfather (Paternal) Diabetes Aunt Muscular dystrophy Other Gallbladder disease Kidney stones Social History Preferred Language: Sudanese Communication Ability: Effective 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 Beliefs That Will Affect Care: None marital status: Current Living Situation: Spouse 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: Retired/Disabled Feels Safe at Home: Yes Smoking Status: Never smoker Second Hand Exposure: No ; Hx Alcohol Use: No Hx Substance Use: No Review of Systems Review of Systems: All systems reviewed & are unremarkable except as noted in HPI & below Physical Exam Constitutional: no acute distress and not ill appearing Eyes: PERRL, conjunctivae normal, anicteric sclerae Respiratory: Auscultation: + rales (few at bases); no wheezes Cardiovascular: Rate/Rhythm: regular rate Heart Sounds: no murmur Vessels: no JVD Gastrointestinal (Abdomen): Inspection/Auscultation: normal bowel sounds; abdomen not distended Percussion/Palpation: abdomen nontender Skin: no rashes, warm and dry Neurologic: awake; no focal motor deficits Psychiatric: A+Ox3, euthymic affect Results & Data Vital Signs (Past 12 Hours) Vital Signs Temp Pulse Pulse Pulse Pulse Resp BP 04/23/19 16:39 56 L 04/23/19 16:00 97.5 F L 55 L 18 137/82 04/23/19 12:18 97.7 F 52 L 18 154/88 H 04/23/19 08:59 53 L 04/23/19 08:00 56 L 04/23/19 07:25 97.7 F 54 L 16 180/64 H Pulse Ox 04/23/19 16:39 04/23/19 16:00 93 04/23/19 12:18 93 04/23/19 08:59 04/23/19 08:00 04/23/19 07:25 92 PG Care Time/CCT Total # of Minutes Spent Total Time Spent with Patient: Total time spent is greater than 50% in coordination of care (as documented) at patient's floor/unit and/or counseling patient:
--- NOTE | 2019-04-23 18:25 | Family Medicine Progress Note ---
Date of Service April 23, 2019 Assessment & Plan (1) Atrial fibrillation with RVR: 79-year-old female with a history of coronary artery disease status post multivessel stenting, paroxysmal atrial fibrillation/flutter, apical variant hypertrophic cardiomyopathy, chronic diastolic heart failure, hypertension, hyperlipidemia, insulin dependent diabetes, chronic kidney disease III, JANICE on BiPAP, large B-cell lymphoma in remission, SKYLER lymphoma s/p VATS (on chronic O2 2L) and prior subdural hematoma post craniotomy 11/2016, chronic thrombocytopenia presents with recurrent chest pain due to atrial fibrillation episode. Chest pain: likely secondary to Afib with RVR - now resolved Episode likely triggered by hypoxia as she forgot to turn on her O2 02/14/19 nuclear stress test: small amount of low risk ischemia, EF 71% no regional wall motion abnormality EKG rate 62 SR 1st degree AV block, T wave inversion I and aVL, Qtc 452 Troponin 0.021 CXR cardiomegaly mild pulm vas congestion, bibasilar opacity likely scarring/atelectasis Continue home amiodarone, metoprolol and eliquis Monitor on telemetry ECHO ordered Trend troponin Cardiology consulted CAD s/p multivessel stenting (RCA AWILDA x 2 in 06/2018), apical variant hypertrophic cardiomyopathy, chronic diastolic heart failure, hypertension, hyperlipidemia, Afib Continue home amiodarone, metoprolol, clopidogrel and eliquis Hold home Lasix in the setting of KENDELL and dehydration KENDELL on CKD3 likely secondary to dehydration Pt reports drinking only 750cc (reports this is her renal limit), which sounds pretty low? BUN/Cr 47/2.17 (baseline Cr 1.6) Hold home lasix Follow BMP Hx of thrombocytopenia - stable Plt 117 Continue to monitor DM-Insulin Dependent On SSI and Glargine Check BSG per unit protocol Diabetic neuropathy Continue home lyrica Large B-cell lymphoma in remission, SKYLER lymphoma s/p VATS with resultant chronic O2 requirement Continue home O2 2L at baseline JANICE Continue home BiPAP Anxiety/depression Continue home bupropion FEN/GI: DM2 diet, NPO after midnight in the event she requires PCI, on IVFs LR 100cc/hr Code: DNR/DNI Dispo: Med/surg with telemetry (2) Chronic kidney disease with active medical management without dialysis, stage 3 (moderate): (3) Anxiety: (4) Paroxysmal A-fib: (5) JANICE treated with BiPAP: (6) Depression: (7) Thrombocytopenia: (8) CAD (coronary artery disease): (9) Peripheral neuropathy: (10) Diabetes: (11) HTN (hypertension): Subjective Discussed the pain that she was having as 10/10 crushing with left arm and jaw pain. The pain started to feel the way prior episodes of A. fib had felt for patient but then thought the pain was more consistent with pain that she had had with prior heart attacks. Results & Data Vital Signs (Past 12 Hours) Vital Signs Temp Pulse Pulse Pulse Pulse Resp BP 04/23/19 16:39 56 L 04/23/19 16:00 36.4 C L 55 L 18 137/82 04/23/19 12:18 36.5 C 52 L 18 154/88 H 04/23/19 08:59 53 L 04/23/19 08:00 56 L 04/23/19 07:25 36.5 C 54 L 16 180/64 H Pulse Ox 04/23/19 16:39 04/23/19 16:00 93 04/23/19 12:18 93 04/23/19 08:59 04/23/19 08:00 04/23/19 07:25 92 PG Care Time/CCT Total # of Minutes Spent Total Time Spent with Patient: Total time spent is greater than 50% in coordination of care (as documented) at patient's floor/unit and/or counseling patient: (1) Depression Depression Type: unspecified Qualified Code(s): F32.9 - Major depressive disorder, single episode, unspecified (2) CAD (coronary artery disease) Coronary Disease-Associated Artery/Lesion type: [place] artery [place] vs. transplanted heart: [place] heart Associated angina: without angina Qualified Code(s): I25.10 - Atherosclerotic heart disease of [place] coronary artery without angina pectoris (3) Diabetes Diabetes mellitus type: type 2 Diabetes mellitus director long term care insulin use: with director long term care use Diabetes mellitus complication status: without complication Qualified Code(s): E11.9 - Type 2 diabetes mellitus without complications; Z79.4 - supervisor intermediates (current) use of insulin (4) HTN (hypertension) Hypertension type: essential hypertension Qualified Code(s): I10 - Essential (primary) hypertension
--- NOTE | 2019-04-23 18:34 | Discharge Summary ---
Date of Service April 23, 2019 Admission HPI Per Admitting Provider 79-year-old female with a history of coronary artery disease status post multivessel stenting, paroxysmal atrial fibrillation/flutter, apical variant hypertrophic cardiomyopathy, chronic diastolic heart failure, hypertension, hyperlipidemia, insulin dependent diabetes, chronic kidney disease III, JANICE on BiPAP, large B-cell lymphoma in remission, SKYLER lymphoma s/p VATS (on chronic O2 2L) and prior subdural hematoma post craniotomy 11/2016, chronic leukopenia presents with recurrent chest pain due to atrial fibrillation episode. Per patient, she was reading a magazine this morning and bent down to lemon picker something from the floor when her A. fib hit her again. She reports sitting down however she continued to have midsternal chest pain that was radiating to her jaw and ears, she was also having left wrist pain and felt pounding sensations in her neck. Of note: She realized she was wearing her nasal cannula but her oxygen was not on which may have triggered her episode of A. fib. Per she has been more forgetful lately and also complaining of more shortness of breath for the past couple months. As a result of her recent symptoms she also had a recent stress test she was not particularly concerning for ischemia. Her chest pain got worse after receiving nitro but has now resolved. She only reports headache at this time. She denies any worsening of her breathing during the episode or now compared to her baseline. She also reports abdominal pain x1 month and chronically irregular bowel movements. She denies any dizziness, fever, chills, nausea, vomiting, dysuria. Principal Diagnosis angina provoked by afib with RVR Discharge Exam General she is awake and alert pleasant no distress. HEENT normocephalic atraumatic mucous members moist. Breathing unlabored no accessory muscle use good effort. Cardio is now rate controlled. No focal neuro deficits. No pallor or icterus. Discharge Data Allergies Allergy/AdvReac Type Severity Reaction Status Date / Time eptifibatide Allergy Severe ANAPHYLAXIS Verified 04/22/19 15:40 hornet venom Allergy Severe WASP VENOM Verified 04/22/19 15:40 PROTEIN-ANAPHYLAXIS levofloxacin [From Levaquin] Allergy Severe Hives Verified 04/22/19 15:40 atorvastatin Allergy Unknown MUSCLE PAIN Verified 04/22/19 15:40 ezetimibe Allergy Unknown MUSCLE PAIN Verified 04/22/19 15:40 simvastatin Allergy Unknown MUSCLE PAIN Verified 04/22/19 15:40 amlodipine AdvReac Severe Nausea Verified 04/22/19 15:40 mivacurium AdvReac Intermediate palpatation Verified 04/22/19 15:40 s warfarin AdvReac Intermediate EXTREME Verified 04/22/19 15:40 BLEEDING TIMES codeine AdvReac Mild VOMITING Verified 04/22/19 15:40 gemfibrozil AdvReac Mild NAUSEA Verified 04/22/19 15:40 meperidine AdvReac Mild VOMITING Verified 04/22/19 15:40 ondansetron AdvReac Mild vomiting Verified 04/22/19 15:40 ranitidine [From Zantac] AdvReac Mild dyspepsia Verified 04/22/19 15:40 cortisone AdvReac Unknown INCREASES Verified 04/22/19 15:40 SUGAR AND VOMITING? hydralazine AdvReac Unknown VOMITING Verified 04/22/19 15:40 ibuprofen AdvReac Unknown VOMITING Verified 04/22/19 15:40 AND DIARRHEA iodine AdvReac Unknown SHELLFISH Verified 04/22/19 15:40 - VOMITING shellfish derived AdvReac Unknown VOMITING Verified 04/22/19 15:40 Sulfa (Sulfonamide AdvReac Unknown VOMITING Verified 04/22/19 15:40 Antibiotics) Consultations 04/22/19 16:24 ED Decision to Admit Stat 04/22/19 19:14 Consult Cardiology Routine Hospital Course (1) Atrial fibrillation with RVR: Appears in A. fib with RVR was the main culprit bring her to the hospital. I suspect this was probably provoked from hypoxia, and we discussed being careful about keeping her oxygen on. At the same time and discussions with cardiology and reviewing her baseline resting bradycardia when she is not in RV R, there are not a lot of immediate answers medically (discussed med changes versus observation management, and right now cardiology and myself feel that ongoing observation management makes the most sense, patient agrees with this as well). The rate related to her A. fib appears to have provoked a degree of angina, which is why she had a mild bump in troponin is a mild degree of demand ischemia, but only brought on by inappropriately fast rates. She is stable for home, she feels up to going home, and she will be followed up closely by her PCP and chief service dispatcher. (2) Chronic kidney disease with active medical management without dialysis, stage 3 (moderate): (3) Anxiety: (4) Paroxysmal A-fib: (5) JANICE treated with BiPAP: (6) Depression: (7) Thrombocytopenia: (8) CAD (coronary artery disease): (9) Peripheral neuropathy: (10) Diabetes: (11) HTN (hypertension): Total Time Total Time Spent Total Time Spent (In Minutes): Greater than 30 minutes Discharge Plan Discharge Items Patient Disposition: Home - Self-Care Reason For Visit: CHEST PAIN Discharge Diagnosis: chest pain related to atrial fibrillation racing Activity: Resume your previous activity Non-emergency contact: Primary Care Provider and Insulating Machine Operator Call non-emergency contact if: you have any medication questions and your symptoms worsen Follow-up/Referrals: Lizet Jeter, [Primary Care Provider] - 04/30/19 10:50 am (Please, follow up at Dr. Jeter's office with her associate, Dr. Rollins, on TuesdayApril 30 at 10:50 am. *If you need to change this appointment, call the office at [phone].) Diet: Carb Consistent or DM2 Addtl Attending Provider Instructions: it appears that the symptoms started because your atrial fibrillation "was acting up" and causing your heart to race. the heart racing then created an anginal feeling of chest pain because it was like you "were on a treadmill that was going too fast" -- fortunately it stopped on its own and things settled out. right now because it stopped on its own, and because your resting heart rate when you're not racing is pretty slow, it's going to be safest to keep you on the same meds you're already on and watch you closely -- Dr Iraheta will coordinate this. at the same time, just as we discussed, if you have new symptoms/recurrent symptoms, we'd rather have you here 100 times for things that don't turning machine operator to be truly worrisome than have you stay at home for problems that don't self-correct even once! Pending Studies at Discharge: No Stand-Alone Forms: Call Back Authorization, My [facility] Medications and DC Order Prescriptions: Continued nitroglycerin 0.4 mg tablet, sublingual 0.4 mg SL Q5M PRN (Reason: chest pain) Qty: 25 RF: 0 amiodarone 200 mg tablet 200 mg PO BID Qty: 180 RF: 2 multivitamin Tablet 1 tab PO QAM RF: 0 buspirone 5 mg tablet 5 mg PO BID RF: 0 folic acid 400 mcg Tablet 400 mcg PO BID RF: 0 ascorbic acid (vitamin C) [Vitamin C] 1,000 mg Tablet 1 g PO QAM RF: 0 ergocalciferol (vitamin D2) [Vitamin D2] 50,000 unit Capsule 50,000 unit PO MONTHLY RF: 0 amoxicillin 500 mg Tablet 2,000 mg PO UD RF: 0 pregabalin [Lyrica] 200 mg capsule 200 mg PO BID RF: 0 furosemide [Lasix] 40 mg tablet 40 mg PO BID RF: 0 Eliquis 2.5 mg Tablet 2.5 mg PO BID RF: 0 clopidogrel 75 mg Tablet 75 mg PO QAM Qty: 30 RF: 0 furosemide 40 mg tablet 40 mg PO UD PRN (Reason: Edema) RF: 0 Basaglar KwikPen U-100 Insulin 100 unit/mL (3 mL) insulin pen 28 unit subcut BID RF: 0 metoprolol tartrate [Lopressor] 50 mg tablet 50 mg PO DAILY RF: 0 insulin lispro [Humalog KwikPen Insulin] 100 unit/mL insulin pen 18 unit subcut .DAILY AFTER LUNCH RF: 0 insulin lispro [Humalog KwikPen Insulin] 100 unit/mL insulin pen 11 unit subcut QAM RF: 0 insulin lispro [Humalog KwikPen Insulin] 100 unit/mL insulin pen 28 unit subcut .DAILY AFTER DINNER RF: 0 Discharge Orders: Discharge Order (Routine); Ordered 04/23/19 Ordered By: Raad Yuen/Other Patient Handouts: Diabetes Longterm Complications, Diabetes Resources, Diabetes Type 2 Coping, Diabetes Healthy Meals, Diabetes Carbs, Diabetes Keep Feet Healthy, Diabetes Inspect Feet, Diabetes Exercise Benefits, Diabetes Exercise Get Started, Diabetes Activity Tips, Diabetes Living Life, Diabetes Manage A1C Test Admission Data Admit Date/Time: 04/22/19 18:20 Attending Provider: Raad Villegas Admit Provider: Bipin Pérez Primary Care Provider: Lizet Jeter Other Providers: Alfredo Goldberg ; Jose Alberto Moody ; Mirna Hankins
[2019-04-23] MEDS ORDERED: LIDOCAINE 5% 1 PATCH TD PRN (18:47)
== END 2019-04-23 18:59 | disposition home or self-care (01) ==
LOC: 2N 13:42 → ED 13:42 → SUATTDRO 18:20 → 2N 18:35

== ENCOUNTER 2019-06-04 10:51 | Inpatient (IN) ==
[2019-06-04 11:20] LABS: Hematocrit (blood only) 39.6 % (37-47); Hemoglobin 12.5 g/dL (12.0-16.0); Mean Corpuscular Hemoglobin 30.3 pg (25-34); Mean Corpuscular Hgb Conc 31.6 g/dL (32-36); Mean Corpuscular Volume 95.9 fL (80-100); Mean Platelet Volume 12.9 fL (7.4-10.4); Platelet Count 118 K/uL (130-400); RDW Coefficient of Variation 16.4 % (11.5-14.5); RDW Standard Deviation 56.6 fL (36.4-46.3); Red Blood Count 4.13 M/uL (4.2-5.4); White Blood Count 5.79 K/uL (4.8-10.8)
[2019-06-04 11:26] LABS: Albumin Level 3.4 gm/dl (3.4-5.0); BUN Creatinine Ratio 24.9 (10-20); Creatinine Clr Calc Pharmacy 24.2 ml/min; Est GFR (African American) 26.9; Est GFR (Non-African American) 23.2; Potassium 4.3 mmol/L (3.5-5.1)
[2019-06-04 11:31] LABS: Albumin Globulin Ratio 1.1 (0.9-2); Bilirubin,Total 0.6 mg/dl (0.2-1); Globulin 3.1 gm/dl (2.5-4.0); Total Protein 6.5 gm/dl (6.4-8.2); Troponin I 0.025 ng/ml (0-0.045)
--- NOTE | 2019-06-04 11:33 | XRay Report ---
XR chest 1V portable HISTORY: 79 years-old Female Chest Pain acute atypical chest pain COMPARISON: Chest radiograph 04/22/2019 TECHNIQUE: Portable AP view of the chest FINDINGS: The cardiac silhouette is enlarged, unchanged. Mild pulmonary vascular congestion. Unchanged left hil ar opacity adjacent surgical suture material. Stable positioning of the left subclavian [id number] catheter. Mild right hemidiaphragmatic elevation with bibasilar opacities. Scarring/atelectasis of t he lateral left midlung. No pneumothorax or large pleural effusion. Degenerative changes of the shoul ders and spine. IMPRESSION: 1. Cardiomegaly with pulmonary vascular congestion. 2. Bibasilar opacities suggest probable atelectasis/scarring. The above report was generated using voice recognition software. It may contain grammatical, syntax o r spelling errors. Electronically signed by: Dipak Tapia M.D. 06/04/2019 11:31 AM
[2019-06-04 11:37] LABS: Basophils # (auto) 0.02 K/uL (0-0.2); Basophils % (auto) 0.3 %; Eosinophils # (auto) 0.07 K/uL (0-0.5); Eosinophils % (auto) 1.2 %; Immature Granulocytes # (auto) 0.06 K/uL (0.00-0.02); Lymphocytes # (auto) 1.42 K/uL (1.2-3.4); Lymphocytes % (auto) 24.5 %; Monocytes # (auto) 0.47 K/uL (0.11-0.59); Monocytes % (auto) 8.1 %; Neutrophils # (auto) 3.75 K/uL (1.4-6.5); Neutrophils % (auto) 64.9 %
[2019-06-04] MEDS ORDERED: NITROGLYCERIN SL 0.4 MG/TAB TAB ONE (11:57)
[2019-06-04] MEDS: NITROGLYCERIN SL 0.4 MG/TAB TAB SL PRN ×2 (11:58→12:44)
[2019-06-04] MEDS ORDERED: FUROSEMIDE 40 MG/4 ML VIAL IV STA (12:32)
[2019-06-04] MEDS ORDERED: ONDANSETRON INJ 2 MG/ML 2 ML VIAL IV STA (13:43)
[2019-06-04] MEDS ORDERED: NITROGLYCERIN SL 0.4 MG/TAB TAB SL PRN ×2 (13:43→13:49)
[2019-06-04] MEDS ORDERED: ZOLPIDEM TARTRATE 5 MG TAB PO PRN (13:56)
[2019-06-04] MEDS ORDERED: POLYETHYLENE (MIRALAX) 17 GM PACK PO PRN (13:56)
[2019-06-04] MEDS ORDERED: MAGNESIUM HYDROXIDE SUSP 30 ML UDC PO PRN (13:56)
[2019-06-04] MEDS ORDERED: ALUMINUM/MAGNESIUM SUSP 30 ML UDC PO PRN (13:56)
[2019-06-04] MEDS ORDERED: CARBOHYDRATES FOR HYPOGLYCEMIA PO PRN (14:02)
[2019-06-04] MEDS ORDERED: GLUCOSE 10 TABS/TUBE PO PRN (14:02)
[2019-06-04] MEDS ORDERED: DEXTROSE 50% 50 ML SYRINGE IV PRN (14:02)
[2019-06-04] MEDS ORDERED: GLUCAGON FOR INJ 1 MG VIAL SQ PRN (14:02)
[2019-06-04] MEDS ORDERED: GLUCOSE 40% GEL 15 GM TUBE PO PRN (14:02)
--- NOTE | 2019-06-04 14:25 | History & Physical Report ---
Date of Service June 04, 2019 Assessment & Plan (1) Angina pectoris: Since she has persistent chest pain and her systolic blood pressure in 170 We will start patient on nitroglycerin drip titrate to comfort Also will have her on sublingual nitroglycerin as needed exacerbation of her chest pain Continue her home dose of metoprolol Received one aspirin in route, but has history of subdural hematoma, will hold aspirin Continue only Eliquis and Plavix Ordered house calls nurse practitioner consult (2) Diffuse large B-cell lymphoma of extranodal site: Continue supportive care (3) Chronic kidney disease with active medical management without dialysis, stage 3 (moderate): As patient will be on large dose of Lasix IV twice daily, will hold KAMRAN inhibitor for now (4) Acute on chronic systolic congestive heart failure, NYHA class 2: Admit to PCU Lasix 40 mg IV twice daily Place Gautam catheter for accurate calculation Obtain 2D echo Consult house calls nurse practitioner Daily weight (5) Dyslipidemia: Patient is (6) Dyslipidemia: Patient is on some injectable type of statin, I do not see in her med rec We will check her lipids panel prior to evaluating her regimen (7) Diabetes 1.5, managed as type 2: Continue pre-meal coverage Add sliding scale insulin We will give her only half the dose of her long-acting insulin as she will be n.p.o. from midnight, and this house calls nurse practitioner canceled the n.p.o. (8) Sleep apnea: CPAP machine at night (9) Atrial fibrillation with RVR: Continue metoprolol 50 mg will give 1 dose now Currently rate controlled It appears that she was on amiodarone as an outpatient but, I do not know the dose right now, will await until full reconciliation of her home meds History of Present Illness 79-year-old female with past medical history of dyslipidemia, recent B-cell lymphoma in the lung status post chemotherapy,/surgery, chronic respiratory failure on 2 L of oxygen at home recently increased to 3 L, essential hypertension, atrial fibrillation/paroxysmal, coronary artery disease, morbid obesity, obstructive sleep apnea, and chronic kidney disease stage III, diabetes mellitus insulin requiring, patient presented to the ED with chest pain and atrial fibrillation/RVR, patient stated that she was in her regular state of health until about 2 weeks ago when she started slowly gaining weight and having more lower extremity swelling. Patient also gets short of breath when she lays flat so she sleeps raising the head of the bed up about 30 degrees, patient stated that she recently had to increase her oxygen from 2 L to 3 L to help her breathe better. She was taking a shower today and while she was in the bathroom she started developing chest pain chest pain was substernal described as heaviness, initially was moderate and progressively became severe, referred to her jaw. Patient came out of the bathroom and took multiple nitroglycerin and that her tongue pain called 911, in route the patient received aspirin by paramedics, also received Cardizem by the time she got to the ER her heart rate was under control in the range of high 80s. But she continued to have mild chest pain about 5/10 Primary Care Provider: Lizet Jeter, Allergies Allergy/AdvReac Type Severity Reaction Status Date / Time eptifibatide Allergy Severe ANAPHYLAXIS Verified 06/04/19 12:05 hornet venom Allergy Severe WASP VENOM Verified 06/04/19 12:05 PROTEIN-ANAPHYLAXIS levofloxacin [From Levaquin] Allergy Severe Hives Verified 06/04/19 12:05 atorvastatin Allergy Unknown MUSCLE PAIN Verified 06/04/19 12:05 ezetimibe Allergy Unknown MUSCLE PAIN Verified 06/04/19 12:05 simvastatin Allergy Unknown MUSCLE PAIN Verified 06/04/19 12:05 amlodipine AdvReac Severe Nausea Verified 06/04/19 12:05 azithromycin AdvReac Intermediate Palpitation Verified 06/04/19 12:05 s warfarin AdvReac Intermediate EXTREME Verified 06/04/19 12:05 BLEEDING TIMES codeine AdvReac Mild VOMITING Verified 06/04/19 12:05 gemfibrozil AdvReac Mild NAUSEA Verified 06/04/19 12:05 meperidine AdvReac Mild VOMITING Verified 06/04/19 12:05 ondansetron AdvReac Mild vomiting Verified 06/04/19 12:05 ranitidine [From Zantac] AdvReac Mild dyspepsia Verified 06/04/19 12:05 cortisone AdvReac Unknown INCREASES Verified 06/04/19 12:05 SUGAR AND VOMITING? hydralazine AdvReac Unknown VOMITING Verified 06/04/19 12:05 ibuprofen AdvReac Unknown VOMITING Verified 06/04/19 12:05 AND DIARRHEA iodine AdvReac Unknown SHELLFISH Verified 06/04/19 12:05 - VOMITING shellfish derived AdvReac Unknown VOMITING Verified 06/04/19 12:05 Sulfa (Sulfonamide AdvReac Unknown VOMITING Verified 06/04/19 12:05 Antibiotics) Home Medications Home Medications Medication Instructions Recorded Confirmed Type ascorbic acid (vitamin C) [Vitamin 1 g PO QAM 06/20/18 06/04/19 History C] buspirone 5 mg PO BID 06/20/18 06/04/19 History ergocalciferol (vitamin D2) 50,000 unit PO MONTHLY 06/20/18 06/04/19 History [Vitamin D2] folic acid 400 mcg PO BID 06/20/18 06/04/19 History multivitamin 1 tab PO QAM 06/20/18 06/04/19 History amoxicillin 2,000 mg PO UD 09/14/18 06/04/19 History pregabalin [Lyrica] 200 mg PO BID 01/18/19 06/04/19 History Basaglar KwikPen U-100 Insulin 28 unit SUBCUT BID 02/12/19 06/04/19 History furosemide 40 mg PO UD PRN 02/12/19 06/04/19 History nitroglycerin 0.4 mg sublingual 0.4 mg SL Q5M PRN #25 tab 02/26/19 06/04/19 History tablet insulin lispro [Humalog KwikPen 11 unit SUBCUT QDB 04/22/19 06/04/19 History Insulin] insulin lispro [Humalog KwikPen 18 unit SUBCUT QDL 04/22/19 06/04/19 History Insulin] insulin lispro [Humalog KwikPen 28 unit SUBCUT QDD 04/22/19 06/04/19 History Insulin] metoprolol tartrate [Lopressor] 50 mg PO DAILY 04/22/19 06/04/19 History clopidogrel 75 mg tablet 75 mg PO QAM #90 tab 05/01/19 06/04/19 Rx alirocumab 75 mg/mL subcutaneous 75 mg SQ Q14D 05/03/19 06/04/19 History pen injector apixaban 2.5 mg tablet 2.5 mg PO BID #180 tab 05/04/19 06/04/19 Rx furosemide 80 mg tablet 80 mg PO BID tab 05/22/19 06/04/19 History levothyroxine 25 mcg PO DAILY 06/04/19 06/04/19 History Past Med/Surg History Social History Preferred Language: [place] Communication Ability: Effective School Library Media Specialist Required: No Beliefs That Will Affect Care: None marital status: Current Living Situation: Spouse 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: Retired/Disabled Other Information That Helps Us Care for You: No Feels Safe at Home: Yes Safety Concerns: Feels Safe At This Time Smoking Status: Never smoker Second Hand Exposure: No ; Hx Alcohol Use: No Hx Substance Use: No Review of Systems Review of Systems: Review of system Constitutional: No fever / no chills / no sweats / no weakness / no fatigue Eyes: no blurring of vision / no eye pain / no discharge / no redness ENT: no hearing loss / no epistaxis /no swallowing problems Respiratory: no cough / no wheezing /positive for shortness of breath/ no hemoptysis Cardiovascular: Positive for chest pain and lower extremity swelling as described for/ no palpitation Abdomen: no pain / no nausea / no vomiting / no constipation Musculoskeletal: no joint pain / no muscle pain / no joint swelling Genitourinary: no dysuria / no incontinence / no urinary retention Neurologic: no focal weakness / no numbness/tingling / no ataxia Psychiatric: no depression symptoms / no anxiety / no insomnia Endocrine: no excessive thirst / no excessive urination Hematologic: no abnormal bleeding / no bruising / no LN swelling Skin: No rash / no pallor Physical Exam Physical Exam: Physical examination General morbidly obese, in mild acute distress HEENT: Atraumatic , normocephalic /no jaundice /no pallor /anicteric /no dry mucous membrane /normal external ear inspection Neck: Supple /no swelling /central trach Heart: S1/S2 irregular irregularity/no gallop /no rub /no murmur Lungs: C decreased air entry bilaterally, scattered rhonchi/Rales Abdomen: Soft/nontender/no guarding/no rebound/no organomegaly/no pulsatile mass Musculoskeletal: No swelling/no edema/no tenderness/normal range of motion Neuro exam: Awake alert oriented 3/cranial nerves II through XII appear to be intact/sensation intact/moves all extremities/no abnormal movements Psychiatric evaluation: No depressed mood/normal affect Skin: No rash on exposed skin area/no erythema Extremity: Normal pulse/no pitting edema/no clubbing or cyanosis Endocrine/lymphatic: No obvious lymphadenopathy /no lymphedema Results & Data Vital Signs (Past 12 Hours) Vital Signs Temp Pulse Resp BP Pulse Ox 06/04/19 13:01 89 21 06/04/19 13:00 94 H 18 172/98 H 94 06/04/19 12:31 92 H 23 97 06/04/19 12:30 92 H 16 173/99 H 98 06/04/19 12:01 85 18 06/04/19 12:00 90 20 171/70 H 90 06/04/19 11:31 85 26 H 94 06/04/19 11:30 83 24 140/73 94 06/04/19 11:06 93 06/04/19 11:03 36.7 C 85 10 L 154/90 H 93 06/04/19 11:02 95 H 15 87 L 06/04/19 11:00 87 17 144/77 H 92 Code Status & VTE Plan VTE Prophylaxis Plan VTE Prophylaxis will be ordered: Yes PG Care Time/CCT Total # of Minutes Spent Total Time Spent with Patient: 35 minutes total time spent is greater than 50% in coordination of care (as documented) at patient's floor/unit and/or counseling patient/family discussion of care with nursing staff:
[2019-06-04] MEDS: NITROGLYCERIN/D5W 100MCG/ML 250 ML IV SCH (15:41)
[2019-06-04] MEDS ORDERED: FUROSEMIDE 20 MG in SYRINGE 0 ML IV SCH (17:00)
[2019-06-04] MEDS: METOPROLOL TARTRATE 50 MG TAB PO SCH (18:42)
[2019-06-04] MEDS: INSULIN HUMAN LISPRO (humaLOG) 100 UNITS/ML VIAL SC SCH ×2 (18:42→21:22)
[2019-06-04] MEDS: FUROSEMIDE 40 MG in SYRINGE 0 ML IV SCH (18:43)
[2019-06-04] MEDS: INSULIN HUMAN LISPRO (humaLOG) 100 UNITS/ML VIAL SQ SCH (18:43)
--- NOTE | 2019-06-04 20:30 | Cardiology Consultation ---
Date of Consultation June 04, 2019 Assessment & Plan (1) CHF (congestive heart failure): She appeared to have element of pulmonary vascular congestion at the time of admission. She appears to be approximately 3 kilograms heavier than she was a month ago. She has been administered diuretics with improvement in her symptoms. She is not currently short of breath at rest and does not appear to have symptoms orthopnea. She does have some evidence of peripheral edema. He would seem reasonable to continue her diuresis monitoring her electrolytes and renal function closely. The etiology of her heart failure is likely diastolic. She has evidence of small ventricular cavity and hypertrophy. Atrial fibrillation likely compromises her ventricular filling as well. She can continue on her metoprolol and hopefully more aggressive attempts at rate control of her atrial fibrillation will help. (2) A-fib: She tends to be symptomatic with her atrial fibrillation. In the past, a rhythm control strategy was not effective. This was despite high doses of amiodarone. A recent outpatient conversation revolved around the possibility of an ablate and pace strategy. I think we have an opportunity to perhaps place a pacemaker this admission and complete her ablation at a later date. We will see what her biomarkers do over the course of the evening and decide whether tomorrow is an opportune time for pacemaker implantation. Will hold a dose of Eliquis tonight in anticipation of procedure. She can continue her metoprolol. (3) Chest pain, precordial: In the past she has had symptoms of chest discomfort with atrial fibrillation. She also has known coronary disease. She has some branch vessel disease which could cause symptoms in the absence of an acute coronary syndrome and high ventricular rates. An echocardiogram performed today did not reveal any wall motion abnormalities. Her EKG appeared unchanged. Her biomarkers are slightly elevated. She seems to be a poor candidate for repeat catheterization due to her renal dysfunction. She is not currently having chest pain. Can monitor biomarkers over the course of the evening. Continue on nitroglycerin and metoprolol. Continue Plavix. Reassess need for coronary angiography in the morning. History of Present Illness Reason for Consultation: Chest pain, atrial fibrillation Requesting Physician: Khadar Attending Physician: Suhail Rubalcava MD History of Present Illness The patient is a 71-year-old woman with a long history of coronary disease, atrial fibrillation, possible apical variant hypertrophy and diastolic heart failure who experienced an episode of chest discomfort this morning. Patient states that around 8 a.m. she was taking a prolonged shower. She had some severe chest pains around that time that only improve mildly with discontinuation of her shower. Based on the nature of the symptoms which she describes as precordial in nature but radiating to her jaw and chin she came to the hospital for an evaluation. She states that the symptoms are fairly common. Occasionally she attributes this to atrial fibrillation. They tend to be fairly random in nature and not precipitated by any specific activity. In fact, the patient is very sedentary. She states that she is unable to perform much activity due to significant fatigue and an element of dyspnea. She reports an element of weight gain and some orthopnea. She has noticed some mild edema in her lower extremities. She has struggle with atrial fibrillation and a sense of palpitations over the past few weeks. Currently, she claims to be feeling fairly well. She states that her chest pain improved this afternoon. She has a sense of her chest being grouchy currently. She denies breathing difficulty at rest. She has no pain in other locations. Allergies Allergy/AdvReac Type Severity Reaction Status Date / Time eptifibatide Allergy Severe ANAPHYLAXIS Verified 06/04/19 12:05 hornet venom Allergy Severe WASP VENOM Verified 06/04/19 12:05 PROTEIN-ANAPHYLAXIS levofloxacin [From Levaquin] Allergy Severe Hives Verified 06/04/19 12:05 atorvastatin Allergy Unknown MUSCLE PAIN Verified 06/04/19 12:05 ezetimibe Allergy Unknown MUSCLE PAIN Verified 06/04/19 12:05 simvastatin Allergy Unknown MUSCLE PAIN Verified 06/04/19 12:05 amlodipine AdvReac Severe Nausea Verified 06/04/19 12:05 azithromycin AdvReac Intermediate Palpitation Verified 06/04/19 12:05 s warfarin AdvReac Intermediate EXTREME Verified 06/04/19 12:05 BLEEDING TIMES codeine AdvReac Mild VOMITING Verified 06/04/19 12:05 gemfibrozil AdvReac Mild NAUSEA Verified 06/04/19 12:05 meperidine AdvReac Mild VOMITING Verified 06/04/19 12:05 ondansetron AdvReac Mild vomiting Verified 06/04/19 12:05 ranitidine [From Zantac] AdvReac Mild dyspepsia Verified 06/04/19 12:05 cortisone AdvReac Unknown INCREASES Verified 06/04/19 12:05 SUGAR AND VOMITING? hydralazine AdvReac Unknown VOMITING Verified 06/04/19 12:05 ibuprofen AdvReac Unknown VOMITING Verified 06/04/19 12:05 AND DIARRHEA iodine AdvReac Unknown SHELLFISH Verified 06/04/19 12:05 - VOMITING shellfish derived AdvReac Unknown VOMITING Verified 06/04/19 12:05 Sulfa (Sulfonamide AdvReac Unknown VOMITING Verified 06/04/19 12:05 Antibiotics) Home Medications Home Medications Medication Instructions Recorded Confirmed Type ascorbic acid (vitamin C) [Vitamin 1 g PO QAM 06/20/18 06/04/19 History C] buspirone 5 mg PO BID 06/20/18 06/04/19 History ergocalciferol (vitamin D2) 50,000 unit PO MONTHLY 06/20/18 06/04/19 History [Vitamin D2] folic acid 400 mcg PO BID 06/20/18 06/04/19 History multivitamin 1 tab PO QAM 06/20/18 06/04/19 History amoxicillin 2,000 mg PO UD 09/14/18 06/04/19 History pregabalin [Lyrica] 200 mg PO BID 01/18/19 06/04/19 History Basaglar KwikPen U-100 Insulin 28 unit SUBCUT BID 02/12/19 06/04/19 History furosemide 40 mg PO UD PRN 02/12/19 06/04/19 History nitroglycerin 0.4 mg sublingual 0.4 mg SL Q5M PRN #25 tab 02/26/19 06/04/19 History tablet insulin lispro [Humalog KwikPen 11 unit SUBCUT QDB 04/22/19 06/04/19 History Insulin] insulin lispro [Humalog KwikPen 18 unit SUBCUT QDL 04/22/19 06/04/19 History Insulin] insulin lispro [Humalog KwikPen 28 unit SUBCUT QDD 04/22/19 06/04/19 History Insulin] metoprolol tartrate [Lopressor] 50 mg PO DAILY 04/22/19 06/04/19 History clopidogrel 75 mg tablet 75 mg PO QAM #90 tab 05/01/19 06/04/19 Rx alirocumab 75 mg/mL subcutaneous 75 mg SQ Q14D 05/03/19 06/04/19 History pen injector apixaban 2.5 mg tablet 2.5 mg PO BID #180 tab 05/04/19 06/04/19 Rx furosemide 80 mg tablet 80 mg PO BID tab 05/22/19 06/04/19 History levothyroxine 25 mcg PO DAILY 06/04/19 06/04/19 History Patient History Medical History Proteinuria (Chronic) Angina pectoris (Acute) 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) Chronic kidney disease with active medical management without dialysis, stage 3 (moderate) (Chronic) Thrombocytopenia chronic; baseline platelets low 100's JANICE treated with BiPAP Atrial fibrillation CAD (coronary artery disease) cardiac stents x 6; most recent: AWILDA x2 (mid/distal RCA) 07/06/18* Myocardial infarction X4 Peripheral neuropathy Diabetes (Chronic) HTN (hypertension) (Chronic) Subdural hematoma CKD (chronic kidney disease) stage 3, GFR 30-59 ml/min Diastolic CHF Dyslipidemia Hypertrophic cardiomyopathy apical variant Lung cancer Respiratory failure 2-3L O2 Surgical History History of cardioversion MULTIPLE History of lung surgery PARTIAL LEFT LOBECTOMY (2013) Hx of brain surgery 2017 S/P FALL/INJURY; SUBSEQUENT BLOOD CLOT EVACUATION S/P cardiac catheterization 7 TOTAL; CARDIAC STENTS X6 S/P hysterectomy S/P tonsillectomy Family History Father Cancer Heart disease Diabetes Mother Stroke Hypertension Grandmother (Maternal) Coronary heart disease Stroke Family/Other Multiple sclerosis Brother Coronary heart disease Grandfather (Maternal) Heart disease Grandfather (Paternal) Diabetes Aunt Muscular dystrophy Other Gallbladder disease Kidney stones Social History Preferred Language: Citizen Of [place] Communication Ability: Effective Patient Ambassador Required: No Beliefs That Will Affect Care: None marital status: Current Living Situation: Spouse 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: Retired/Disabled Feels Safe at Home: Yes Smoking Status: Never smoker Second Hand Exposure: No ; Hx Alcohol Use: No Hx Substance Use: No Review of Systems Review of Systems: All systems reviewed & are unremarkable except as noted in HPI & below Physical Exam Physical Exam: She is alert and oriented x3. Mood affect appear normal. She answered all questions appropriately. HEENT: Sclerae are anicteric. Pupils are equal and reactive to light and accommodation. Extraocular movements were intact. Neuro: Cranial nerves intact Neck: Examination of the submandibular region did not reveal any significant lymphadenopathy. Carotids are palpable bilaterally and free of bruits on auscultation. The thyroid was not enlarged. Lungs: Lungs are clear to auscultation bilaterally. There are no rales wheezes or rhonchi. She has normal respiratory effort without use of accessory muscles. There is normal pulmonary excursion. Cardiac: The rhythm was irregular. S1 and S2 were normal. There are no murmurs on examination. The PMI was not markedly displaced on palpation. Abdomen: The abdomen was soft and nontender. Extremities: Patient has bilateral radial pulses that are equal in intensity. There is no evidence cyanosis or clubbing. There was no evidence of significant peripheral edema bilaterally. Skin: There are no rashes noted on examination today. Results & Data Vital Signs (Past 12 Hours) Vital Signs Temp Pulse Pulse Pulse Resp BP BP 06/04/19 19:11 36.2 C L 95 H 18 123/67 06/04/19 17:30 112/75 06/04/19 17:15 130/73 06/04/19 17:00 118/72 06/04/19 16:45 152/71 H 06/04/19 16:30 156/80 H 06/04/19 16:20 129/86 06/04/19 16:10 119/74 06/04/19 16:00 141/89 H 06/04/19 15:50 150/84 H 06/04/19 15:41 162/77 H 06/04/19 15:10 36.7 C 88 20 188/92 H 06/04/19 13:01 89 21 06/04/19 13:00 94 H 18 172/98 H 06/04/19 12:31 92 H 23 06/04/19 12:30 92 H 16 173/99 H 06/04/19 12:01 85 18 06/04/19 12:00 90 20 171/70 H 06/04/19 11:31 85 26 H 06/04/19 11:30 83 24 140/73 06/04/19 11:06 06/04/19 11:03 36.7 C 85 10 L 154/90 H 06/04/19 11:02 95 H 15 06/04/19 11:00 87 17 144/77 H Pulse Ox 06/04/19 19:11 90 06/04/19 17:30 06/04/19 17:15 06/04/19 17:00 06/04/19 16:45 06/04/19 16:30 06/04/19 16:20 06/04/19 16:10 06/04/19 16:00 06/04/19 15:50 06/04/19 15:41 06/04/19 15:10 94 06/04/19 13:01 06/04/19 13:00 94 06/04/19 12:31 97 06/04/19 12:30 98 06/04/19 12:01 06/04/19 12:00 90 06/04/19 11:31 94 06/04/19 11:30 94 06/04/19 11:06 93 06/04/19 11:03 93 06/04/19 11:02 87 L 06/04/19 11:00 92 Laboratory Results Abnormal Lab Results 06/04/19 06/04/19 06/04/19 10:28 10:28 10:28 WBC 5.79 RBC 4.13 L Hgb 12.5 Hct 39.6 MCV 95.9 MCH 30.3 MCHC 31.6 L RDW Std Deviation 56.6 H RDW Coeff of Nhi 16.4 H Plt Count 118 L MPV 12.9 H Immature Gran % (Auto) 1.0 Neut % (Auto) 64.9 Lymph % (Auto) 24.5 [place] % (Auto) 8.1 Eos % (Auto) 1.2 Baso % (Auto) 0.3 Immature Gran # (Auto) 0.06 H Neut # (Auto) 3.75 Lymph # (Auto) 1.42 [place] # (Auto) 0.47 Eos # (Auto) 0.07 Baso # (Auto) 0.02 Sodium 139 Potassium 4.3 Chloride 99 Carbon Dioxide 33 H Anion Gap 7.0 BUN 50 H Creatinine 2.01 H Est Cr Clr Drug Dosing 24.2 Est GFR ( Amer) 26.9 Est GFR (Non-Af Amer) 23.2 BUN/Creatinine Ratio 24.9 H Glucose 237 H POC Glucose Calcium 9.0 Total Bilirubin 0.6 AST 23 ALT 28 Alkaline Phosphatase 63 Troponin I 0.025 NT-Pro-B Natriuret Pep 2195 H Total Protein 6.5 Albumin 3.4 Globulin 3.1 Albumin/Globulin Ratio 1.1 Lipase 431 H 06/04/19 06/04/19 06/04/19 16:32 16:40 19:40 WBC RBC Hgb Hct MCV MCH MCHC RDW Std Deviation RDW Coeff of Nhi Plt Count MPV Immature Gran % (Auto) Neut % (Auto) Lymph % (Auto) [place] % (Auto) Eos % (Auto) Baso % (Auto) Immature Gran # (Auto) Neut # (Auto) Lymph # (Auto) [place] # (Auto) Eos # (Auto) Baso # (Auto) Sodium Potassium Chloride Carbon Dioxide Anion Gap BUN Creatinine Est Cr Clr Drug Dosing Est GFR ( Amer) Est GFR (Non-Af Amer) BUN/Creatinine Ratio Glucose POC Glucose 206 H Calcium Total Bilirubin AST ALT Alkaline Phosphatase Troponin I 0.513 H* 0.766 H* NT-Pro-B Natriuret Pep Total Protein Albumin Globulin Albumin/Globulin Ratio Lipase Diagnostic Findings Echocardiogram obtained today revealed preserved LV systolic function with only mild mitral regurgitation. Essentially unchanged from echocardiogram performed 04/23/2019 Chest x-ray obtained today suggested pulmonary vascular congestion. ECG Additional Comments: EKG revealed atrial fibrillation with nonspecific ST and T- wave changes PG Care Time/CCT Total # of Minutes Spent Total Time Spent with Patient: Total time spent is greater than 50% in coordination of care (as documented) at patient's floor/unit and/or counseling patient: (1) CHF (congestive heart failure) Heart failure chronicity: unspecified Heart failure type: unspecified Qualified Code(s): I50.9 - Heart failure, unspecified (2) A-fib Atrial fibrillation type: unspecified Qualified Code(s): I48.91 - Unspecified atrial fibrillation
[2019-06-04] MEDS ORDERED: APIXABAN 2.5 MG TAB PO SCH (21:00)
[2019-06-04] MEDS ORDERED: INSULIN GLARGINE SOLOSTAR 100 UNITS/ML 3 ML PEN SQ SCH (21:00)
[2019-06-04] MEDS: PREGABALIN 100 MG CAP PO SCH (21:20)
[2019-06-04] MEDS: INSULIN GLARGINE SOLOSTAR 100 UNITS/ML 3 ML PEN SQ SCH (21:27)
--- NOTE | 2019-06-05 01:52 | Emergency Department Note ---
Entered by Nataliia Maldonado acting as a scribe for History of Present Illness General Chief complaint: Cardiac Assessment Time Seen by Provider: 06/04/19 12:13 Source: patient History of Present Illness Onset (ago): hour(s) 4 Location: chest Pain Consistency: + other (episode) Quality: + other (pressure) Relieved By: + medication (Nitroglycerin, Aspirin) Associated symptoms: + denies other symptoms (congestion), + fever/chills (Positive chills. Negative fever. ) and + other (heart racing, weight gain, leg swelling); no cough The patient is a 79 year old female who presents to the Emergency Room with complaints of an episode of chest pain starting 4 hours ago. The patient states that this morning she was in the shower when she started to have central chest pressure. She reports that she felt like along with her chest pain, her heart was racing. She states that she decided to take a Nitroglycerin and 4 baby Aspirin. She notes that she decided to call 911. She notes that she has had less intense chest pressure like this a few times a week for months, but nothing ever this bad. She reports that it scared her and that is why she came here. The patient states that in the ambulance they gave her another medication and that made her start to feel better once she got here, but it feels like it is starting to come back again now. The patient notes that she slept fine and felt fine before this happened. The patient complains of having chills for the past week, increased weight gain, and leg swelling. She notes that she has been taking her Lasix every day, but didnt take her medications this morning as she hadnt eaten yet. The patient notes that she is on Eliquis and typically wears 2L O2 at all times, but recently bumped it up to 3. The patient notes a history of lymphoma and a lung resection in 2018 and a subdural hematoma in 2017. The patient denies fever, cough, and congestion. Home Medications Home Medications Medication Instructions Recorded Confirmed Type ascorbic acid (vitamin C) [Vitamin 1 g PO QAM 06/20/18 06/04/19 History C] buspirone 5 mg PO BID 06/20/18 06/04/19 History ergocalciferol (vitamin D2) 50,000 unit PO MONTHLY 06/20/18 06/04/19 History [Vitamin D2] folic acid 400 mcg PO BID 06/20/18 06/04/19 History multivitamin 1 tab PO QAM 06/20/18 06/04/19 History amoxicillin 2,000 mg PO UD 09/14/18 06/04/19 History pregabalin [Lyrica] 200 mg PO BID 01/18/19 06/04/19 History Basaglar KwikPen U-100 Insulin 28 unit SUBCUT BID 02/12/19 06/04/19 History furosemide 40 mg PO UD PRN 02/12/19 06/04/19 History nitroglycerin 0.4 mg sublingual 0.4 mg SL Q5M PRN #25 tab 02/26/19 06/04/19 History tablet insulin lispro [Humalog KwikPen 11 unit SUBCUT QDB 04/22/19 06/04/19 History Insulin] insulin lispro [Humalog KwikPen 18 unit SUBCUT QDL 04/22/19 06/04/19 History Insulin] insulin lispro [Humalog KwikPen 28 unit SUBCUT QDD 04/22/19 06/04/19 History Insulin] metoprolol tartrate [Lopressor] 50 mg PO DAILY 04/22/19 06/04/19 History clopidogrel 75 mg tablet 75 mg PO QAM #90 tab 05/01/19 06/04/19 Rx alirocumab 75 mg/mL subcutaneous 75 mg SQ Q14D 05/03/19 06/04/19 History pen injector apixaban 2.5 mg tablet 2.5 mg PO BID #180 tab 05/04/19 06/04/19 Rx furosemide 80 mg tablet 80 mg PO BID tab 05/22/19 06/04/19 History levothyroxine 25 mcg PO DAILY 06/04/19 06/04/19 History Allergies Allergy/AdvReac Type Severity Reaction Status Date / Time eptifibatide Allergy Severe ANAPHYLAXIS Verified 06/04/19 12:05 hornet venom Allergy Severe WASP VENOM Verified 06/04/19 12:05 PROTEIN-ANAPHYLAXIS levofloxacin [From Levaquin] Allergy Severe Hives Verified 06/04/19 12:05 atorvastatin Allergy Unknown MUSCLE PAIN Verified 06/04/19 12:05 ezetimibe Allergy Unknown MUSCLE PAIN Verified 06/04/19 12:05 simvastatin Allergy Unknown MUSCLE PAIN Verified 06/04/19 12:05 amlodipine AdvReac Severe Nausea Verified 06/04/19 12:05 azithromycin AdvReac Intermediate Palpitation Verified 06/04/19 12:05 s warfarin AdvReac Intermediate EXTREME Verified 06/04/19 12:05 BLEEDING TIMES codeine AdvReac Mild VOMITING Verified 06/04/19 12:05 gemfibrozil AdvReac Mild NAUSEA Verified 06/04/19 12:05 meperidine AdvReac Mild VOMITING Verified 06/04/19 12:05 ondansetron AdvReac Mild vomiting Verified 06/04/19 12:05 ranitidine [From Zantac] AdvReac Mild dyspepsia Verified 06/04/19 12:05 cortisone AdvReac Unknown INCREASES Verified 06/04/19 12:05 SUGAR AND VOMITING? hydralazine AdvReac Unknown VOMITING Verified 06/04/19 12:05 ibuprofen AdvReac Unknown VOMITING Verified 06/04/19 12:05 AND DIARRHEA iodine AdvReac Unknown SHELLFISH Verified 06/04/19 12:05 - VOMITING shellfish derived AdvReac Unknown VOMITING Verified 06/04/19 12:05 Sulfa (Sulfonamide AdvReac Unknown VOMITING Verified 06/04/19 12:05 Antibiotics) Past Med/Surg History Medical History Angina pectoris (Acute) Atrial fibrillation CAD (coronary artery disease) cardiac stents x 6; most recent: AWILDA x2 (mid/distal RCA) 07/06/18* Chronic kidney disease with active medical management without dialysis, stage 3 (moderate) (Chronic) CKD (chronic kidney disease) stage 3, GFR 30-59 ml/min Diabetes (Chronic) Diastolic CHF 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) Dyslipidemia HTN (hypertension) (Chronic) Hypertrophic cardiomyopathy apical variant Lung cancer Myocardial infarction X4 JANICE treated with BiPAP Peripheral neuropathy Proteinuria (Chronic) Respiratory failure 2-3L O2 Subdural hematoma Thrombocytopenia chronic; baseline platelets low 100's Surgical History History of cardioversion MULTIPLE History of lung surgery PARTIAL LEFT LOBECTOMY (2013) Hx of brain surgery 2017 S/P FALL/INJURY; SUBSEQUENT BLOOD CLOT EVACUATION S/P cardiac catheterization 7 TOTAL; CARDIAC STENTS X6 S/P hysterectomy S/P tonsillectomy Family History Father Cancer Heart disease Diabetes Mother Stroke Hypertension Grandmother (Maternal) Coronary heart disease Stroke Family/Other Multiple sclerosis Brother Coronary heart disease Grandfather (Maternal) Heart disease Grandfather (Paternal) Diabetes Aunt Muscular dystrophy Other Gallbladder disease Kidney stones Social History Preferred Language: Malay Communication Ability: Effective 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 and A total of 10 systems reviewed and were otherwise negative Physical Exam Vital Signs Vital Signs - 24 hr 06/04/19 11:00 06/04/19 11:02 06/04/19 11:03 Temperature 36.7 C Temperature Source Oral Sepsis Recent Fever Within 48 Hours No Sepsis Action Taken by Nursing No Action Required Pulse Rate 87 95 H 85 Pulse Rate from SpO2 Sensor 90 97 H Pulse Rhythm Irregular Respiratory Rate 17 15 10 L Respiratory Effort / Characteristics Non-Labored Respiratory Depth Normal Respiratory Pattern Regular Blood Pressure 144/77 H 154/90 H Blood Pressure Mean 99 111 Blood Pressure Position Lying Pulse Oximetry 92 87 L 93 Oxygen Delivery Method Nasal Cannula Oxygen Flow Rate 3 06/04/19 11:06 06/04/19 11:30 06/04/19 11:31 Temperature Temperature Source Sepsis Recent Fever Within 48 Hours Sepsis Action Taken by Nursing Pulse Rate 83 85 Pulse Rate from SpO2 Sensor 92 H 84 Pulse Rhythm Respiratory Rate 24 26 H Respiratory Effort / Characteristics Respiratory Depth Respiratory Pattern Blood Pressure 140/73 Blood Pressure Mean 95 Blood Pressure Position Pulse Oximetry 93 94 94 Oxygen Delivery Method Nasal Cannula Oxygen Flow Rate 3 06/04/19 12:00 06/04/19 12:01 06/04/19 12:30 Temperature Temperature Source Sepsis Recent Fever Within 48 Hours Sepsis Action Taken by Nursing Pulse Rate 90 85 92 H Pulse Rate from SpO2 Sensor 89 90 97 H Pulse Rhythm Respiratory Rate 20 18 16 Respiratory Effort / Characteristics Respiratory Depth Respiratory Pattern Blood Pressure 171/70 H 173/99 H Blood Pressure Mean 103 123 Blood Pressure Position Pulse Oximetry 90 98 Oxygen Delivery Method Oxygen Flow Rate 06/04/19 12:31 06/04/19 13:00 06/04/19 13:01 Temperature Temperature Source Sepsis Recent Fever Within 48 Hours Sepsis Action Taken by Nursing Pulse Rate 92 H 94 H 89 Pulse Rate from SpO2 Sensor 89 101 H 85 Pulse Rhythm Respiratory Rate 23 18 21 Respiratory Effort / Characteristics Respiratory Depth Respiratory Pattern Blood Pressure 172/98 H Blood Pressure Mean 122 Blood Pressure Position Pulse Oximetry 97 94 Oxygen Delivery Method Oxygen Flow Rate GENERAL: Awake, alert, chronically ill-appearing, in no distress HENT: Normocephalic, atraumatic. Oropharynx unremarkable. EYES: Normal conjunctiva. Sclera non-icteric. NECK: Supple. No nuchal rigidity. FROM. No JVD. RESPIRATORY: Diminished breath sounds at the bases. CARDIAC: Regular rate, irreguar rhythm. Extremities warm and well perfused. Pulses equal. ABDOMEN: Soft, non-distended. No tenderness to palpation. No rebound or guarding. No masses. RECTAL: Deferred. MUSCULOSKELETAL: Chest examination reveals no tenderness. The back is symmetrical on inspection without obvious abnormality. There is no CVA tenderness to palpation. No joint edema. LOWER EXTREMITIES: Calves are equal size bilaterally and non-tender. 1+ bilateral lower extremity edema. No discoloration. NEURO: Normal sensorium. No sensory or motor deficits noted. SKIN: No rash or jaundice noted. Course 1225: The patient was evaluated in room C3. A complete history and physical exam was performed. I discussed her test results and the treatment plan with her. She verbally agrees and understands. 1239: I discussed the patient's case with Dr. Snow- [facility] Hospitalist. He will evaluate the patient for further management. Administered Medications Acetaminophen (Tylenol) 650 mg PO Q4H PRN PRN Reason: Pain or Fever Stop: 07/04/19 13:55 Last Admin: 06/06/19 03:12 Dose: 650 mg Documented by: [id number] Apixaban (Eliquis) 2.5 mg PO BID [facility] Stop: 07/06/19 20:59 Last Admin: 06/06/19 21:54 Dose: 2.5 mg Documented by: [id number] Buspirone HCl (Buspar) 5 mg PO BID [facility] Stop: 07/04/19 20:59 Last Admin: 06/06/19 21:54 Dose: 5 mg Documented by: [id number] Admin: 06/06/19 08:06 Dose: 5 mg Documented by: [id number] Admin: 06/05/19 20:34 Dose: 5 mg Documented by: [id number] Admin: 06/05/19 08:20 Dose: 5 mg Documented by: [id number] Admin: 06/04/19 21:20 Dose: 5 mg Documented by: [id number] Clopidogrel Bisulfate (Plavix) 75 mg PO QAM [facility] Stop: 07/05/19 08:59 Last Admin: 06/06/19 08:06 Dose: 75 mg Documented by: [id number] Admin: 06/05/19 08:21 Dose: 75 mg Documented by: [id number] Docusate Sodium (Colace) 100 mg PO BID [facility] Stop: 07/05/19 21:59 Last Admin: 06/06/19 21:54 Dose: Not Given Documented by: [id number] Admin: 06/06/19 08:05 Dose: 100 mg Documented by: [id number] Admin: 06/05/19 22:36 Dose: 100 mg Documented by: [id number] Heparin Sodium (Porcine) (Heparin Sod 100 Unit/Ml Flush) 5 ml FLUSH PRN PRN PRN Reason: Flush Stop: 07/05/19 01:14 Last Admin: 06/06/19 09:32 Dose: 5 ml Documented by: [id number] Furosemide 40 mg/ Syringe 4 mls @ 4 mls/min IV Q12 [facility] Stop: 07/05/19 20:59 Last Admin: 06/05/19 20:34 Dose: 4 mls/min Documented by: [id number] Insulin Glargine (Lantus Solostar Pen) 5 units SQ BID [facility] Stop: 07/05/19 21:29 Last Admin: 06/06/19 21:55 Dose: 5 units Documented by: [id number] Cosigned by: [id number] Admin: 06/06/19 08:08 Dose: 5 units Documented by: [id number] Cosigned by: [id number] Admin: 06/05/19 21:35 Dose: 5 units Documented by: [id number] Cosigned by: [id number] Insulin Human Lispro (Humalog) 11 units SQ QDB [facility] Stop: 07/05/19 07:29 Last Admin: 06/06/19 08:06 Dose: 11 units Documented by: [id number] Cosigned by: [id number] Admin: 06/05/19 08:29 Dose: Not Given Documented by: [id number] Insulin Human Lispro (Humalog) 0 units SC ACHS [facility] Stop: 07/04/19 16:29 Last Admin: 06/06/19 21:53 Dose: Not Given Documented by: [id number] Cosigned by: [id number] Admin: 06/06/19 17:07 Dose: Not Given Documented by: [id number] Admin: 06/06/19 11:42 Dose: 2 units Documented by: [id number] Cosigned by: [id number] Admin: 06/06/19 08:07 Dose: 3 units Documented by: [id number] Cosigned by: [id number] Admin: 06/05/19 21:34 Dose: Not Given Documented by: [id number] Cosigned by: [id number] Admin: 06/05/19 16:44 Dose: 1 units Documented by: [id number] Cosigned by: [id number] Admin: 06/05/19 12:10 Dose: 1 units Documented by: [id number] Cosigned by: [id number] Admin: 06/05/19 08:13 Dose: 2 units Documented by: [id number] Cosigned by: [id number] Admin: 06/04/19 21:22 Dose: 2 units Documented by: [id number] Cosigned by: [id number] Admin: 06/04/19 18:42 Dose: 3 units Documented by: [id number] Cosigned by: [id number] Insulin Human Lispro (Humalog) 18 units SQ QDL [facility] Stop: 07/05/19 11:29 Last Admin: 06/06/19 11:41 Dose: 18 units Documented by: [id number] Cosigned by: [id number] Admin: 06/05/19 12:07 Dose: 18 units Documented by: [id number] Cosigned by: [id number] Insulin Human Lispro (Humalog) 14 units SQ QDD [facility] Stop: 07/06/19 16:29 Last Admin: 06/06/19 17:07 Dose: Not Given Documented by: [id number] Levothyroxine Sodium (Synthroid) 25 mcg PO DAILYBB [facility] Stop: 07/05/19 06:29 Last Admin: 06/06/19 06:22 Dose: 25 mcg Documented by: [id number] Admin: 06/05/19 05:42 Dose: 25 mcg Documented by: [id number] Metoprolol Tartrate (Lopressor) 50 mg PO BID [facility] Stop: 07/06/19 20:59 Last Admin: 06/06/19 21:54 Dose: 50 mg Documented by: [id number] Miscellaneous (Carbohydrates For Hypoglycemia) 15 - 30 gm PO UD PRN PRN Reason: Hypoglycemia Protocol Stop: 07/04/19 14:01 Last Admin: 06/05/19 20:27 Dose: 15 gm Documented by: [id number] Pregabalin (Lyrica) 200 mg PO BID [facility] Stop: 07/04/19 20:59 Last Admin: 06/06/19 21:57 Dose: 200 mg Documented by: [id number] Admin: 06/06/19 08:18 Dose: 200 mg Documented by: [id number] Admin: 06/05/19 20:34 Dose: 200 mg Documented by: [id number] Admin: 06/05/19 08:43 Dose: 200 mg Documented by: [id number] Admin: 06/04/19 21:20 Dose: 200 mg Documented by: [id number] Discontinued Medications Bacitracin (Bacitracin) Confirm Administered Dose 50,000 units .ROUTE .STK-MED ONE Stop: 06/05/19 09:30 Last Admin: 06/05/19 13:52 Dose: Not Given Documented by: [id number] Bupivacaine HCl (Sensorcaine 0.25% Inj) Confirm Administered Dose 30 ml .ROUTE .STK-MED ONE Stop: 06/05/19 09:30 Last Admin: 06/05/19 13:52 Dose: Not Given Documented by: [id number] Cefazolin Sodium (Ancef) Confirm Administered Dose 2,000 mg .ROUTE .STK-MED ONE Stop: 06/05/19 10:15 Last Admin: 06/05/19 14:24 Dose: Not Given Documented by: [id number] Fentanyl Citrate (Fentanyl Citrate) Confirm Administered Dose 100 mcg .ROUTE .STK-MED ONE Stop: 06/05/19 10:13 Last Admin: 06/05/19 14:23 Dose: Not Given Documented by: [id number] Furosemide (Lasix) 40 mg IV NOW STA Stop: 06/04/19 12:33 Last Admin: 06/04/19 12:45 Dose: 40 mg Documented by: [id number] Nitroglycerin/Dextrose (Nitroglycerin/D5w 100 Mcg/Ml) 250 mls @ 3 mls/hr IV .Q24H [facility]; Protocol Stop: 07/04/19 14:09 Last Admin: 06/05/19 18:12 Dose: Not Given Documented by: [id number] Titration: 06/05/19 14:50 Dose: 0 mcg/min, 0 mls/hr Documented by: [id number] Titration: 06/05/19 07:10 Dose: 5 mcg/min, 3 mls/hr Documented by: [id number] Cosigned by: [id number] Titration: 06/04/19 21:31 Dose: 5 mcg/min, 3 mls/hr Documented by: [id number] Titration: 06/04/19 18:30 Dose: 10 mcg/min, 6 mls/hr Documented by: [id number] Titration: 06/04/19 16:15 Dose: 15 mcg/min, 9 mls/hr Documented by: [id number] Titration: 06/04/19 16:00 Dose: 10 mcg/min, 6 mls/hr Documented by: [id number] Admin: 06/04/19 15:41 Dose: 5 mcg/min, 3 mls/hr Documented by: [id number] Cosigned by: [id number] Furosemide 40 mg/ Syringe 4 mls @ 4 mls/min IV [id number] [facility] Stop: 06/05/19 09:15 Last Admin: 06/05/19 08:43 Dose: 4 mls/min Documented by: [id number] Admin: 06/04/19 18:43 Dose: 4 mls/min Documented by: [id number] Furosemide 40 mg/ Syringe 4 mls @ 4 mls/min IV Q6 [facility] Stop: 07/05/19 11:59 Last Admin: 06/05/19 12:10 Dose: 4 mls/min Documented by: [id number] Cefazolin Sodium (Ancef 1000mg) 1,000 mg in 7.5 mls @ 2.5 mls/min IV Q8H [facility]IA; Protocol Stop: 06/06/19 19:29 Last Admin: 06/06/19 11:40 Dose: 2.5 mls/min Documented by: [id number] Admin: 06/06/19 03:10 Dose: 2.5 mls/min Documented by: [id number] Admin: 06/05/19 20:34 Dose: 2.5 mls/min Documented by: [id number] Insulin Glargine (Lantus Solostar Pen) 10 units SQ BID [facility] Stop: 07/04/19 20:59 Last Admin: 06/05/19 21:36 Dose: Not Given Documented by: [id number] Cosigned by: [id number] Admin: 06/05/19 08:15 Dose: 10 units Documented by: [id number] Cosigned by: [id number] Admin: 06/04/19 21:27 Dose: 10 units Documented by: [id number] Cosigned by: [id number] Insulin Human Lispro (Humalog) 28 units SQ QDD [facility] Stop: 07/04/19 16:29 Last Admin: 06/05/19 16:44 Dose: 28 units Documented by: [id number] Cosigned by: [id number] Admin: 06/04/19 18:43 Dose: Not Given Documented by: [id number] Insulin Human Lispro (Humalog) 10 units SQ QDD [facility] Stop: 06/06/19 19:30 Last Admin: 06/06/19 17:08 Dose: 10 units Documented by: [id number] Cosigned by: [id number] Lidocaine HCl (Xylocaine 1% (Local)) Confirm Administered Dose 20 ml .ROUTE .STK-MED ONE Stop: 06/05/19 09:30 Last Admin: 06/05/19 13:53 Dose: Not Given Documented by: [id number] Metoprolol Tartrate (Lopressor) 50 mg PO DAILY [facility] Stop: 07/04/19 15:59 Last Admin: 06/06/19 08:05 Dose: 50 mg Documented by: [id number] Admin: 06/05/19 08:21 Dose: 50 mg Documented by: [id number] Admin: 06/04/19 18:42 Dose: 50 mg Documented by: [id number] Midazolam HCl (Versed) Confirm Administered Dose 5 mg .ROUTE .STK-MED ONE Stop: 06/05/19 10:13 Last Admin: 06/05/19 14:24 Dose: Not Given Documented by: [id number] Nitroglycerin (Nitrostat) 0.4 mg SL UD PRN PRN Reason: Chest Pain Stop: 07/04/19 11:53 Last Admin: 06/04/19 12:44 Dose: 0.4 mg Documented by: [id number] Admin: 06/04/19 11:58 Dose: 0.4 mg Documented by: [id number] Nitroglycerin (Nitrostat) Confirm Administered Dose 0.4 mg .ROUTE .STK-MED ONE Stop: 06/04/19 11:58 Last Admin: 06/04/19 11:58 Dose: Not Given Documented by: [id number] Ondansetron HCl (Zofran) 4 mg IV NOW STA Stop: 06/04/19 13:44 Last Admin: 06/04/19 15:00 Dose: 4 mg Documented by: [id number] Impression & Plan CHF (congestive heart failure), A-fib, CKD (chronic kidney disease), Shortness of breath Discharge Plan Visit Data *Final* Discharge Date/Time: 06/04/19 15:17 Chief Complaint: Cardiac Assessment ED Provider: Farhad Alves Discharge Problem: CHF (congestive heart failure), A-fib, CKD (chronic kidney disease), Shortness of breath Patient Disposition: Admitted As Inpatient Discharge Instructions Interventions: ED Discharge Assessment Last Done: 06/04/19 15:17 Medical Decision Making Differential Diagnosis Differential diagnoses includes but is not limited to acute coronary syndrome, myocardial infarction, pericarditis, pulmonary embolus, aortic dissection, pneumonia, pneumothorax, musculoskeletal, shingles, esophageal. Medical Records Attestation: I reviewed the patient's medical records. Home Medications Current Medication List: was personally reviewed by me Laboratory Data Attestation: I reviewed the patient's lab results. Result diagrams: 06/06/19 05:22 06/06/19 05:22 Lab Results 06/04/19 06/04/19 06/04/19 Range/Units 10:28 10:28 10:28 WBC 5.79 (4.8-10.8) K/uL RBC 4.13 L (4.2-5.4) M/uL Hgb 12.5 (12.0-16.0) g/dL Hct 39.6 (37-47) % MCV 95.9 (80-100) fL MCH 30.3 (25-34) pg MCHC 31.6 L (32-36) g/dL RDW Std Deviation 56.6 H (36.4-46.3) fL RDW Coeff of Nhi 16.4 H (11.5-14.5) % Plt Count 118 L (130-400) K/uL MPV 12.9 H (7.4-10.4) fL Immature Gran % (Auto) 1.0 % Neut % (Auto) 64.9 % Lymph % (Auto) 24.5 % Hall % (Auto) 8.1 % Eos % (Auto) 1.2 % Baso % (Auto) 0.3 % Immature Gran # (Auto) 0.06 H (0.00-0.02) K/uL Neut # (Auto) 3.75 (1.4-6.5) K/uL Lymph # (Auto) 1.42 (1.2-3.4) K/uL Hall # (Auto) 0.47 (0.11-0.59) K/uL Eos # (Auto) 0.07 (0-0.5) K/uL Baso # (Auto) 0.02 (0-0.2) K/uL Sodium 139 (136-145) mmol/L Potassium 4.3 (3.5-5.1) mmol/L Chloride 99 (98-107) mmol/L Carbon Dioxide 33 H (21-32) mmol/L Anion Gap 7.0 (3-11) BUN 50 H (7-18) mg/dl Creatinine 2.01 H (0.6-1.2) mg/dl Est Cr Clr Drug Dosing 24.2 ml/min Est GFR ( Amer) 26.9 Est GFR (Non-Af Amer) 23.2 BUN/Creatinine Ratio 24.9 H (10-20) Glucose 237 H (70-99) mg/dl Calcium 9.0 (8.5-10.1) mg/dl Total Bilirubin 0.6 (0.2-1) mg/dl AST 23 (15-37) U/L ALT 28 (12-78) U/L Alkaline Phosphatase 63 (45-117) U/L Troponin I 0.025 (0-0.045) ng/ml NT-Pro-B Natriuret Pep 2195 H (0-1800) pg/ml Total Protein 6.5 (6.4-8.2) gm/dl Albumin 3.4 (3.4-5.0) gm/dl Globulin 3.1 (2.5-4.0) gm/dl Albumin/Globulin Ratio 1.1 (0.9-2) Lipase 431 H (73-393) U/L Imaging Data Radiologist's Impression: Radiology results as stated below per my review and the radiologist's interpretation: XR chest 1V portable HISTORY: 79 years-old Female Chest Pain acute atypical chest pain COMPARISON: Chest radiograph 04/22/2019 TECHNIQUE: Portable AP view of the chest FINDINGS: The cardiac silhouette is enlarged, unchanged. Mild pulmonary vascular congestion. Unchanged left hilar opacity adjacent surgical suture material. Stable positioning of the left subclavian [id number] catheter. Mild right hemidiaphragmatic elevation with bibasilar opacities. Scarring/atelectasis of the lateral left midlung. No pneumothorax or large pleural effusion. Degenerative changes of the shoulders and spine. IMPRESSION: 1. Cardiomegaly with pulmonary vascular congestion. 2. Bibasilar opacities suggest probable atelectasis/scarring. The above report was generated using voice recognition software. It may contain grammatical, syntax or spelling errors. Electronically signed by: Dipak Tapia M.D. 06/04/2019 11:31 AM ECG Data Attestation: I personally reviewed and interpreted this ECG as follows: Indication: + chest pain Rate (beats per minute): 87 Rhythm: + atrial fibrillation ECG ST segments: no ST elevation ECG Findings: + Other (ST abnormalities, QT-c 425); no PACs and no PVCs Comparison ECG Date: from (04/22/2019) Change: no significant change Blood Pressure Blood Pressure Findings: Elevated blood pressure Blood Pressure Disposition: further management by hospitalist [facility] Narrative The patient is a pleasant 79-year-old woman with a past medical history of A. fib on Eliquis, CAD, CHF, CKD who presents emergency department with worsening shortness of breath over the past week in setting of report of increased weight gain with CP that began this morning and has been constant per hpi. Of note, patient was reported to have RVR prior to arrival which improved after administration of diltiazem by EMS. On arrival patient is chronically ill-ap pearing but no acute distress, afebrile stable vital signs. Patient has diminished breath sounds at the bases with 1+ bilateral lower extremity edema. EKG with Afib with ST abnormality. No ST elevations. Chest x-ray demonstrates venous congestion. WBC, H/H, wnl. Platelets 118 similar to prior. Chemistry without acidosis. Cr. 2.1 similar to prior values. LFTs and electrolytes unremarkable. UA negative.Troponin wnl. BNP 2K increased from 1500 in January. Of note, the patient has recently been followed outpatient for her volume overload however she reports not having any response despite taking Lasix. Given the patient's worsening symptoms in the setting of her increasing weight gain reasonable to admit the patient for the management. Patient agreeble with this. Patient ordered for IV Lasix.Case was discussed with Dr. Snow, [facility] hospitalist, who evaluate the patient for admission. Discharge Problem: CHF (congestive heart failure) Qualifiers: Heart failure type: unspecified Heart failure chronicity: unspecified Qualified Code(s): I50.9 - Heart failure, unspecified A-fib Qualifiers: Atrial fibrillation type: unspecified Qualified Code(s): I48.91 - Unspecified atrial fibrillation The scribe's documentation has been prepared under my direction and personally reviewed by me in its entirety. I confirm that the note above accurately reflects all work, treatment, procedures, and medical decision making performed by me.
[2019-06-05 04:54] LABS: Albumin Level 3.2 gm/dl (3.4-5.0); Bilirubin Direct 0.2 mg/dl (0-0.2); Bilirubin,Total 0.5 mg/dl (0.2-1); Calcium 8.5 mg/dl (8.5-10.1); Creatinine Clr Calc Pharmacy 21.7 ml/min; Est GFR (African American) 23.6; Est GFR (Non-African American) 20.3; Potassium 4.2 mmol/L (3.5-5.1); Total Protein 6.2 gm/dl (6.4-8.2); Troponin I 0.739 ng/ml (0-0.045)
[2019-06-05 04:55] LABS: Albumin Globulin Ratio 1.1 (0.9-2); BUN Creatinine Ratio 22.1 (10-20)
[2019-06-05] MEDS: LEVOTHYROXINE SODIUM 25 MCG TABLET PO SCH (05:42)
[2019-06-05 05:52] LABS: Hemoglobin 11.3 g/dL (12.0-16.0); Mean Corpuscular Hemoglobin 30.1 pg (25-34); Mean Corpuscular Hgb Conc 31.4 g/dL (32-36); Mean Platelet Volume 12.7 fL (7.4-10.4); Platelet Count 112 K/uL (130-400); RDW Coefficient of Variation 16.5 % (11.5-14.5); RDW Standard Deviation 57.5 fL (36.4-46.3); Red Blood Count 3.75 M/uL (4.2-5.4); White Blood Count 4.35 K/uL (4.8-10.8)
[2019-06-05 06:16] LABS: Basophils # (auto) 0.02 K/uL (0-0.2); Basophils % (auto) 0.5 %; Eosinophils # (auto) 0.07 K/uL (0-0.5); Eosinophils % (auto) 1.6 %; Immature Granulocytes # (auto) 0.02 K/uL (0.00-0.02); Immature Granulocytes % (auto) 0.5 %; Lymphocytes # (auto) 1.02 K/uL (1.2-3.4); Lymphocytes % (auto) 23.4 %; Monocytes # (auto) 0.37 K/uL (0.11-0.59); Monocytes % (auto) 8.5 %; Neutrophils # (auto) 2.85 K/uL (1.4-6.5); Neutrophils % (auto) 65.5 %
[2019-06-05 07:02] LABS: Estimated Average Glucose 200 mg/dl; Hemoglobin A1C 8.6 % (4.5-5.6)
[2019-06-05] MEDS: INSULIN HUMAN LISPRO (humaLOG) 100 UNITS/ML VIAL SC SCH ×4 (08:13→21:34)
[2019-06-05] MEDS: INSULIN GLARGINE SOLOSTAR 100 UNITS/ML 3 ML PEN SQ SCH ×3 (08:15→21:36)
[2019-06-05] MEDS: CLOPIDOGREL BISULFATE 75 MG TAB PO SCH (08:21)
[2019-06-05] MEDS: METOPROLOL TARTRATE 50 MG TAB PO SCH (08:21)
[2019-06-05] MEDS: INSULIN HUMAN LISPRO (humaLOG) 100 UNITS/ML VIAL SQ SCH ×3 (08:29→16:44)
[2019-06-05] MEDS: FUROSEMIDE 40 MG in SYRINGE 0 ML IV SCH (08:43)
[2019-06-05] MEDS: PREGABALIN 100 MG CAP PO SCH ×2 (08:43→20:34)
[2019-06-05] MEDS ORDERED: BACITRACIN INJ 50,000 UNIT VIAL ONE (09:29)
[2019-06-05] MEDS ORDERED: BUPIVACAINE 0.25% 30 ML VIAL ONE (09:29)
[2019-06-05] MEDS ORDERED: LIDOCAINE HCL 1% 20 ML VIAL ONE (09:29)
[2019-06-05] MEDS ORDERED: MIDAZOLAM HCL 5 MG/ML 1 ML VIAL ONE (10:12)
[2019-06-05] MEDS ORDERED: fentaNYL citrate 100 MCG/2 ML VIAL ONE (10:12)
[2019-06-05] MEDS ORDERED: CEFAZOLIN 250 MG/ML 1 GM VIAL ONE (10:14)
--- NOTE | 2019-06-05 10:25 | Pre Anesthesia Assessment ---
Date of Service June 05, 2019 Pre Sedation Assessment Vital Signs Temp Pulse Pulse Pulse Resp BP BP 06/05/19 07:53 36.6 C 83 18 113/75 06/05/19 04:03 36.3 C L 95 H 20 99/66 L 06/04/19 23:19 36.5 C 89 20 114/66 06/04/19 21:34 105/61 06/04/19 21:21 92/59 L 06/04/19 19:11 36.2 C L 95 H 18 123/67 06/04/19 17:30 112/75 06/04/19 17:15 130/73 06/04/19 17:00 118/72 06/04/19 16:45 152/71 H 06/04/19 16:30 156/80 H 06/04/19 16:20 129/86 06/04/19 16:10 119/74 06/04/19 16:00 141/89 H 06/04/19 15:50 150/84 H 06/04/19 15:41 162/77 H 06/04/19 15:10 36.7 C 88 20 188/92 H 06/04/19 13:01 89 21 06/04/19 13:00 94 H 18 172/98 H 06/04/19 12:31 92 H 23 06/04/19 12:30 92 H 16 173/99 H 06/04/19 12:01 85 18 06/04/19 12:00 90 20 171/70 H 06/04/19 11:31 85 26 H 06/04/19 11:30 83 24 140/73 06/04/19 11:06 06/04/19 11:03 36.7 C 85 10 L 154/90 H 06/04/19 11:02 95 H 15 06/04/19 11:00 87 17 144/77 H Pulse Ox 06/05/19 07:53 95 06/05/19 04:03 98 06/04/19 23:19 97 06/04/19 21:34 06/04/19 21:21 06/04/19 19:11 90 06/04/19 17:30 06/04/19 17:15 06/04/19 17:00 06/04/19 16:45 06/04/19 16:30 06/04/19 16:20 06/04/19 16:10 06/04/19 16:00 06/04/19 15:50 06/04/19 15:41 06/04/19 15:10 94 06/04/19 13:01 06/04/19 13:00 94 06/04/19 12:31 97 06/04/19 12:30 98 06/04/19 12:01 06/04/19 12:00 90 06/04/19 11:31 94 06/04/19 11:30 94 06/04/19 11:06 93 06/04/19 11:03 93 06/04/19 11:02 87 L 06/04/19 11:00 92 Cardiovascular + irregularly irregular Respiratory + respiratory effort normal Pre-Sedation Airway Assessment Smoking Status: Never smoker Hx Sleep Apnea: No Hx Difficult Intubation: No Short, Thick Neck: No Thyromental Distance: > or= 3.5 Finger Breadths Oral Cavity: + WNL Mallampati Class: I ASA: ASA3 NPO Status Date of Last Intake of Fluids: 06/04/19 Date of Last Intake of Solid Food: 06/04/19 Procedure Planning Contraindications for Sedation: none Current Medications Reviewed: Yes Notes The planned sedation has been discussed with the patient. Informed Consent was obtained. I have identified the patient, determined the appropriateness of sedation and have assessed the patient immediately prior to the procedure. All medicine(s) and interventions are by my order.
--- NOTE | 2019-06-05 11:20 | Procedure Note ---
Procedure Note Date of Service June 05, 2019 Note Procedure performed: Implantation of dual-chamber permanent pacemaker and right heart catheterization Staff executive sales assistant: Mo Manuel MD Indication: The patient is a 79-year-old woman with a history of paroxysmal atrial fibrillation refractory to medical therapy. An attempt to improve rate control she was advised to consider permanent pacemaker for tachybradycardia syndrome. The device is being implanted for symptomatic nonreversible sinus node dysfunction. Dual-chamber device was selected as wish to maintain AV synchrony and employ atrial therapies. Procedure in detail: The patient was informed of the risks benefits and alternatives to the intended procedure and she wished to proceed. She was taken to the electrophysiology suite in a fasting state. A preoperative antibiotic had been administered. The patient was monitored electrocardiographically throughout today's procedure and conscious sedation was administered per protocol. The left upper pectoral area is prepped and draped in usual sterile fashion. This area was anesthetized using subcutaneous administration of a xylocaine solution. An incision was made at this site and carried down to the prepectoralis fascia using sharp dissection. Electrocautery was also employed for dissection as well as for hemostasis. A device pocket was fashioned tissues above the pectoralis muscle. Subsequent to this maneuver the left axillary vein was accessed using modified Seldinger technique. Sheaths were placed over guidewires at this site and used to facilitate passage of the pacing leads to the respective chambers under fluoroscopic guidance. This included right atrial and right ventricular leads. Adequate sensing and threshold parameters were obtained prior to Active fixation of the leads to the endocardial surface. The proximal portion leads were then sutured the prepectoral fascia using nonabsorbable suture. The device pocket was irrigated with antibiotic solution. The leads were then attached to the device. The device and leads were then placed in the pocket and pocket was closed in 3 layers of absorbable suture. Steri-Strips and sterile dressing were applied. The device was tested noninvasively prior to conclusion the procedure. The patient tolerated procedure well there no immediate complications. Equipment used: New pulse generator: Head Porter [employer]. Model number: [id number] serial number [id number] Right atrial lead: Head Porter [employer]. Model number: 5076 serial number [id number] Right ventricular lead: Head Porter [employer]. Model number: 5076 serial number [id number] Measured data: Right atrial lead: The patient was in atrial fibrillation. Sensing was 3.5 mV. Pacing impedance was 475 ohms Right ventricular lead: R waves measured 12.5 mV. Pacing threshold was 0.75 V at 0.4 ms with a pacing impedance of 532 ohms Hemodynamics: PA pressure 75/43 mmHg Pulmonary Pulmonary capillary wedge pressure 25 mmHg Left ventricular pressure 70/11 mmHg Right atrial pressure 15 mmHg Impression: Successful implantation of chamber permanent pacemaker Elevated pulmonary pressures Coding
--- NOTE | 2019-06-05 11:28 | Post Anesthesia Assessment ---
Date of Service June 05, 2019 Post Sedation Assessment Vital Signs Temp Pulse Pulse Pulse Resp BP BP 06/05/19 11:22 76 20 138/89 06/05/19 07:53 36.6 C 83 18 113/75 06/05/19 04:03 36.3 C L 95 H 20 99/66 L 06/04/19 23:19 36.5 C 89 20 114/66 06/04/19 21:34 105/61 06/04/19 21:21 92/59 L 06/04/19 19:11 36.2 C L 95 H 18 123/67 06/04/19 17:30 112/75 06/04/19 17:15 130/73 06/04/19 17:00 118/72 06/04/19 16:45 152/71 H 06/04/19 16:30 156/80 H 06/04/19 16:20 129/86 06/04/19 16:10 119/74 06/04/19 16:00 141/89 H 06/04/19 15:50 150/84 H 06/04/19 15:41 162/77 H 06/04/19 15:10 36.7 C 88 20 188/92 H 06/04/19 13:01 89 21 06/04/19 13:00 94 H 18 172/98 H 06/04/19 12:31 92 H 23 06/04/19 12:30 92 H 16 173/99 H 06/04/19 12:01 85 18 06/04/19 12:00 90 20 171/70 H 06/04/19 11:31 85 26 H 06/04/19 11:30 83 24 140/73 Pulse Ox 06/05/19 11:22 96 06/05/19 07:53 95 06/05/19 04:03 98 06/04/19 23:19 97 06/04/19 21:34 06/04/19 21:21 06/04/19 19:11 90 06/04/19 17:30 06/04/19 17:15 06/04/19 17:00 06/04/19 16:45 06/04/19 16:30 06/04/19 16:20 06/04/19 16:10 06/04/19 16:00 06/04/19 15:50 06/04/19 15:41 06/04/19 15:10 94 06/04/19 13:01 06/04/19 13:00 94 06/04/19 12:31 97 06/04/19 12:30 98 06/04/19 12:01 06/04/19 12:00 90 06/04/19 11:31 94 06/04/19 11:30 94 Recovery Score Activity: Moves 4 extremities Respiration: Deep Breath/Cough Circulation: +/-20% PreAnes Value Consciousness: Fully Awake Oxygen Saturation: O2 needed for >90% Post Anesthesia Score: 9 Discharge Sedation Level of Care: Fast Track Phase II Post Sedation Plan On clinical assessment, the patient appears to have tolerated the sedation without complications. Patient is recovering as anticipated. Patient will continue to be monitored by nursing and may be discharged when sedation discharge criteria are met per below protocol. Upon Completions of procedure and additional 15 minutes continue every 5 minute vital signs and the P.A.R. score; then discharge to a Phase I or Fast Track to Phase II per the following guidelines: * Discharge Patient to appropriate Phase II area if PAR is 8 or greater or return to pre- procedure baseline. The post - procedure orders will be as directed. * If PAR score is less than 8 or not return to pre-procedure baseline then patient will follow Phase I monitoring till PAR is reached for Phase II. The Phase I may be done in procedure room or may call to secure a Phase I area. * If naloxone or flumazenil are used for reversal, hold in Phase I for continued monitoring from when last reversal dose was given for a minimum of 60 minutes or longer pending the nurse and/or physician discretion of patient condition before discharge to Phase II. Please call the Sedation Physician to re-evaluate and complete post-note for discharge to Phase II area. Do NOT discharge from procedure sedation or Phase 1 until post- sedation evaluation note is complete by procedure /sedation MD Sedation Discharge Instructions to be given to the patient at discharge to home.
[2019-06-05] MEDS ORDERED: INSULIN HUMAN LISPRO (humaLOG) 100 UNITS/ML VIAL SQ SCH (11:30)
[2019-06-05] MEDS ORDERED: FUROSEMIDE 40 MG in SYRINGE 0 ML IV SCH ×2 (12:00→21:00)
--- NOTE | 2019-06-05 17:17 | Hospitalist Progress Note ---
Date of Service June 05, 2019 Assessment & Plan (1) Acute on chronic systolic congestive heart failure, NYHA class 2: responding okay to Lasix, negative 1100mL for admission increased Lasix to q6 today, will back off to q12 again this evening Place Gautam catheter for accurate calculation continue fluid restriction, daily weights (2) Atrial fibrillation with RVR: continue metoprolol dual chamber pacemaker placed today with plans for aggressive rate control, possible ablation tolerated well anticoagulated on Eliquis (3) Angina pectoris: no further chest pain stop nitroglycerin drip troponin 0.5 and 0.7, likely due to CKD Continue Eliquis and Plavix appreciate input from Dr. Manuel would be high risk for cath given CKD (4) Diffuse large B-cell lymphoma of extranodal site: Continue supportive care (5) Chronic kidney disease with active medical management without dialysis, stage 3 (moderate): Cr stable at 2.2 which is baseline repeat tomorrow with aggressive diuresis holding Lisinopril while diursing (6) Dyslipidemia: (7) Diabetes 1.5, managed as type 2: continue basal and bolus insulin monitor for hypoglycemia (8) Sleep apnea: CPAP machine at night Subjective patient feeling better today, no chest pain, breathing is much better underwent dual chamber pacemaker and right heart cath today with Dr. Manuel, tolerated well, no complications eating fine vitals stable reviewed labs, Cr is 2.2 and K is 4.2 updated patient's at the bedside discussed with Dr. Manuel, appreciate his input Review of Systems Review of Systems: All systems reviewed & are unremarkable except as noted in HPI & below Constitutional: no fever, no fatigue and no weakness Respiratory: + dyspnea on exertion; no cough and no dyspnea Cardiovascular: no chest pain, no syncope and no edema Gastrointestinal: no abdominal pain, no nausea, no vomiting, no constipation and no diarrhea/loose stools Physical Exam Constitutional: WD/WN, vitals as above Eyes: PERRL, conjunctivae normal, anicteric sclerae ENMT: external ear and nose normal, oropharynx normal Neck: trachea midline, no thyromegaly Respiratory: normal respiratory effort, lungs clear to auscultation Cardiovascular: Rate/Rhythm: regular rate and + irregularly irregular Heart Sounds: normal S1 and normal S2; no murmur Vessels: no JVD Extremities: normal capillary refill; no edema Gastrointestinal (Abdomen): normal bowel sounds, soft, nontender, no hepatosplenomegaly Musculoskeletal: no cyanosis or clubbing, extremities motor strength 5/5 Skin: no rashes, warm and dry Neurologic: patellar DTR's 2+ bilat, sensation intact and PERRL, EOMI, accommodation nl, no face palsy, no dysarthria Psychiatric: A+Ox3, euthymic affect Lymphatic: no cervical or axillary lymphadenopathy Results & Data Vital Signs (Past 12 Hours) Vital Signs Temp Pulse Pulse Resp BP BP Pulse Ox 06/05/19 15:20 36.3 C L 68 18 131/68 90 06/05/19 14:25 79 18 126/85 99 06/05/19 13:45 70 18 114/69 96 06/05/19 13:15 82 18 118/74 94 06/05/19 12:43 36 C L 78 18 143/76 H 96 06/05/19 12:10 80 18 118/64 94 06/05/19 11:50 36.4 C L 78 18 130/61 93 06/05/19 11:37 82 20 134/82 97 06/05/19 11:22 76 20 138/89 96 06/05/19 07:53 36.6 C 83 18 113/75 95 Laboratory Results Laboratory Results - last 24 hr 06/04/19 06/04/19 06/04/19 16:32 16:40 19:40 WBC RBC Hgb Hct MCV MCH MCHC RDW Std Deviation RDW Coeff of Nhi Plt Count MPV Immature Gran % (Auto) Neut % (Auto) Lymph % (Auto) Williams % (Auto) Eos % (Auto) Baso % (Auto) Immature Gran # (Auto) Neut # (Auto) Lymph # (Auto) Williams # (Auto) Eos # (Auto) Baso # (Auto) ESR Sodium Potassium Chloride Carbon Dioxide Anion Gap BUN Creatinine Est Cr Clr Drug Dosing Est GFR ( Amer) Est GFR (Non-Af Amer) BUN/Creatinine Ratio Glucose POC Glucose 206 H Estimat Average Glucose Hemoglobin A1c Calcium Total Bilirubin Direct Bilirubin AST ALT Alkaline Phosphatase Troponin I 0.513 H* 0.766 H* Total Protein Albumin Globulin Albumin/Globulin Ratio Triglycerides Cholesterol LDL Cholesterol, Calc VLDL Cholesterol, Calc HDL Cholesterol Cholesterol/HDL Ratio Lipase 06/04/19 06/05/19 06/05/19 20:21 01:46 05:27 WBC 4.35 L RBC 3.75 L Hgb 11.3 L Hct 36.0 L MCV 96.0 MCH 30.1 MCHC 31.4 L RDW Std Deviation 57.5 H RDW Coeff of Nhi 16.5 H Plt Count 112 L MPV 12.7 H Immature Gran % (Auto) 0.5 Neut % (Auto) 65.5 Lymph % (Auto) 23.4 Williams % (Auto) 8.5 Eos % (Auto) 1.6 Baso % (Auto) 0.5 Immature Gran # (Auto) 0.02 Neut # (Auto) 2.85 Lymph # (Auto) 1.02 L Williams # (Auto) 0.37 Eos # (Auto) 0.07 Baso # (Auto) 0.02 ESR Sodium 143 Potassium 4.2 Chloride 101 Carbon Dioxide 35 H Anion Gap 7.0 BUN 49 H Creatinine 2.24 H Est Cr Clr Drug Dosing 21.7 Est GFR ( Amer) 23.6 Est GFR (Non-Af Amer) 20.3 BUN/Creatinine Ratio 22.1 H Glucose 194 H POC Glucose 194 H Estimat Average Glucose Hemoglobin A1c Calcium 8.5 Total Bilirubin 0.5 Direct Bilirubin 0.2 AST 22 ALT 26 Alkaline Phosphatase 56 Troponin I 0.739 H* Total Protein 6.2 L Albumin 3.2 L Globulin 3.0 Albumin/Globulin Ratio 1.1 Triglycerides 348 H Cholesterol 126 LDL Cholesterol, Calc 13 VLDL Cholesterol, Calc 70 HDL Cholesterol 43 Cholesterol/HDL Ratio 3 Lipase 319 06/05/19 06/05/19 06/05/19 05:27 05:27 05:27 WBC RBC Hgb Hct MCV MCH MCHC RDW Std Deviation RDW Coeff of Nhi Plt Count MPV Immature Gran % (Auto) Neut % (Auto) Lymph % (Auto) Williams % (Auto) Eos % (Auto) Baso % (Auto) Immature Gran # (Auto) Neut # (Auto) Lymph # (Auto) Williams # (Auto) Eos # (Auto) Baso # (Auto) ESR 9 Sodium Potassium Chloride Carbon Dioxide Anion Gap BUN Creatinine Est Cr Clr Drug Dosing Est GFR ( Amer) Est GFR (Non-Af Amer) BUN/Creatinine Ratio Glucose POC Glucose Estimat Average Glucose 200 Hemoglobin A1c 8.6 H Calcium Total Bilirubin Direct Bilirubin AST ALT Alkaline Phosphatase Troponin I 0.581 H* Total Protein Albumin Globulin Albumin/Globulin Ratio Triglycerides Cholesterol LDL Cholesterol, Calc VLDL Cholesterol, Calc HDL Cholesterol Cholesterol/HDL Ratio Lipase 06/05/19 06/05/19 06/05/19 07:23 12:03 16:33 WBC RBC Hgb Hct MCV MCH MCHC RDW Std Deviation RDW Coeff of Nhi Plt Count MPV Immature Gran % (Auto) Neut % (Auto) Lymph % (Auto) Williams % (Auto) Eos % (Auto) Baso % (Auto) Immature Gran # (Auto) Neut # (Auto) Lymph # (Auto) Williams # (Auto) Eos # (Auto) Baso # (Auto) ESR Sodium Potassium Chloride Carbon Dioxide Anion Gap BUN Creatinine Est Cr Clr Drug Dosing Est GFR ( Amer) Est GFR (Non-Af Amer) BUN/Creatinine Ratio Glucose POC Glucose 187 H 170 H 174 H Estimat Average Glucose Hemoglobin A1c Calcium Total Bilirubin Direct Bilirubin AST ALT Alkaline Phosphatase Troponin I Total Protein Albumin Globulin Albumin/Globulin Ratio Triglycerides Cholesterol LDL Cholesterol, Calc VLDL Cholesterol, Calc HDL Cholesterol Cholesterol/HDL Ratio Lipase Medications Administered Current Inpatient Medications Acetaminophen (Tylenol) 650 mg PO Q4H PRN PRN Reason: Pain or Fever Stop: 07/04/19 13:55 Al Hydrox/Mg Hydrox/Simethicone (Maalox) 15 ml PO Q4H PRN PRN Reason: Dyspepsia Stop: 07/04/19 13:55 Apixaban (Eliquis) 2.5 mg PO BID [facility] Stop: 07/04/19 20:59 Buspirone HCl (Buspar) 5 mg PO BID [facility] Stop: 07/04/19 20:59 Last Admin: 06/05/19 08:20 Dose: 5 mg Documented by: Clopidogrel Bisulfate (Plavix) 75 mg PO QAM [facility] Stop: 07/05/19 08:59 Last Admin: 06/05/19 08:21 Dose: 75 mg Documented by: Dextrose (Dextrose 50%) 25 - 50 ml IV UD PRN; Protocol PRN Reason: Hypoglycemia Protocol Stop: 07/04/19 14:01 Glucagon (Glucagen) 1 mg SQ UD PRN; Protocol PRN Reason: Hypoglycemia Protocol Stop: 07/04/19 14:01 Glucose (Glucose 40%) 15 - 30 gm PO UD PRN; Protocol PRN Reason: Hypoglycemia Protocol Stop: 07/04/19 14:01 Glucose (Dex4 Glucose) 4 - 8 tabs PO UD PRN; Protocol PRN Reason: Hypoglycemia Protocol Stop: 07/04/19 14:01 Heparin Sodium (Porcine) (Heparin Sod 100 Unit/Ml Flush) 5 ml FLUSH PRN PRN PRN Reason: Flush Stop: 07/05/19 01:14 Cefazolin Sodium (Ancef 1000mg) 1,000 mg in 7.5 mls @ 2.5 mls/min IV Q8H [facility]; Protocol Stop: 06/06/19 19:29 Furosemide 40 mg/ Syringe 4 mls @ 4 mls/min IV Q12 [facility] Stop: 07/05/19 20:59 Insulin Glargine (Lantus Solostar Pen) 10 units SQ BID [facility] Stop: 07/04/19 20:59 Last Admin: 06/05/19 08:15 Dose: 10 units Documented by: Insulin Human Lispro (Humalog) 28 units SQ QDD [facility] Stop: 07/04/19 16:29 Last Admin: 06/05/19 16:44 Dose: 28 units Documented by: Insulin Human Lispro (Humalog) 11 units SQ QDB [facility] Stop: 07/05/19 07:29 Last Admin: 06/05/19 08:29 Dose: Not Given Documented by: Insulin Human Lispro (Humalog) 0 units SC ACHS [facility] Stop: 07/04/19 16:29 Last Admin: 06/05/19 16:44 Dose: 1 units Documented by: Insulin Human Lispro (Humalog) 18 units SQ QDL [facility] Stop: 07/05/19 11:29 Last Admin: 06/05/19 12:07 Dose: 18 units Documented by: Levothyroxine Sodium (Synthroid) 25 mcg PO DAILYBB [facility] Stop: 07/05/19 06:29 Last Admin: 06/05/19 05:42 Dose: 25 mcg Documented by: Magnesium Hydroxide (Milk Of Magnesia) 30 ml PO Q12H PRN PRN Reason: Constipation Stop: 07/04/19 13:55 Metoprolol Tartrate (Lopressor) 50 mg PO DAILY [facility] Stop: 07/04/19 15:59 Last Admin: 06/05/19 08:21 Dose: 50 mg Documented by: Miscellaneous (Carbohydrates For Hypoglycemia) 15 - 30 gm PO UD PRN PRN Reason: Hypoglycemia Protocol Stop: 07/04/19 14:01 Nitroglycerin (Nitrostat) 0.4 mg SL Q5M PRN PRN Reason: chest pain Stop: 07/04/19 13:48 Polyethylene Glycol (Miralax Powder Packet) 17 gm PO DAILY PRN PRN Reason: Constipation Stop: 07/04/19 13:55 Pregabalin (Lyrica) 200 mg PO BID [facility] Stop: 07/04/19 20:59 Last Admin: 06/05/19 08:43 Dose: 200 mg Documented by: Zolpidem Tartrate (Ambien) 5 mg PO HS PRN PRN Reason: Sleep Stop: 07/04/19 13:55 PG Care Time/CCT Total # of Minutes Spent Total Time Spent with Patient: Total time spent is greater than 50% in coordination of care (as documented) at patient's floor/unit and/or counseling patient:
[2019-06-05] MEDS: NITROGLYCERIN/D5W 100MCG/ML 250 ML IV SCH (18:12)
[2019-06-05] MEDS: CEFAZOLIN 1000MG 1,000 MG/7.5 ML SYR IV SCH (20:34)
[2019-06-05] MEDS: DOCUSATE SODIUM 100 MG CAP PO SCH (22:36)
[2019-06-06] MEDS: CEFAZOLIN 1000MG 1,000 MG/7.5 ML SYR IV SCH ×2 (03:10→11:40)
[2019-06-06] MEDS: ACETAMINOPHEN 325 MG TAB PO PRN (03:12)
[2019-06-06 06:09] LABS: Hematocrit (blood only) 38.1 % (37-47); Hemoglobin 11.8 g/dL (12.0-16.0); Mean Corpuscular Hemoglobin 30.2 pg (25-34); Mean Corpuscular Volume 97.4 fL (80-100); Mean Platelet Volume 13.1 fL (7.4-10.4); Platelet Count 99 K/uL (130-400); Platelet Estimate Decreased (Normal); RDW Coefficient of Variation 16.9 % (11.5-14.5); RDW Standard Deviation 59.5 fL (36.4-46.3); Red Blood Count 3.91 M/uL (4.2-5.4); White Blood Count 6.69 K/uL (4.8-10.8)
[2019-06-06 06:11] LABS: Albumin Level 3.1 gm/dl (3.4-5.0); BUN Creatinine Ratio 21.4 (10-20); Calcium 8.2 mg/dl (8.5-10.1); Creatinine Clr Calc Pharmacy 15.9 ml/min; Est GFR (African American) 16.7; Est GFR (Non-African American) 14.4; Magnesium 1.9 mg/dl (1.8-2.4)
[2019-06-06 06:16] LABS: Bilirubin,Total 0.4 mg/dl (0.2-1); Globulin 3.2 gm/dl (2.5-4.0); Total Protein 6.3 gm/dl (6.4-8.2)
[2019-06-06] MEDS: LEVOTHYROXINE SODIUM 25 MCG TABLET PO SCH (06:22)
[2019-06-06] MEDS: METOPROLOL TARTRATE 50 MG TAB PO SCH ×2 (08:05→21:54)
[2019-06-06] MEDS: DOCUSATE SODIUM 100 MG CAP PO SCH ×2 (08:05→21:54)
[2019-06-06] MEDS: INSULIN HUMAN LISPRO (humaLOG) 100 UNITS/ML VIAL SQ SCH ×2 (08:06→11:41)
[2019-06-06] MEDS: CLOPIDOGREL BISULFATE 75 MG TAB PO SCH (08:06)
[2019-06-06] MEDS: INSULIN HUMAN LISPRO (humaLOG) 100 UNITS/ML VIAL SC SCH ×4 (08:07→21:53)
[2019-06-06] MEDS: INSULIN GLARGINE SOLOSTAR 100 UNITS/ML 3 ML PEN SQ SCH ×2 (08:08→21:55)
[2019-06-06] MEDS: PREGABALIN 100 MG CAP PO SCH ×2 (08:18→21:57)
[2019-06-06] MEDS: HEPARIN 100 UNIT/ML 5ML FLUSH FLUSH PRN (09:32)
--- NOTE | 2019-06-06 10:29 | Hospitalist Progress Note ---
Date of Service June 06, 2019 Assessment & Plan (1) Acute on chronic systolic congestive heart failure, NYHA class 2: no further response to Lasix, examines more euvolemic stop Lasix IV as her Cr up to 2.9 continue fluid restriction, daily weights reassess Cr in the morning (2) Atrial fibrillation with RVR: continue metoprolol, increase Lopressor 50mg to BID now that pacemaker in place dual chamber pacemaker placed 06/05 with plans for aggressive rate control, possible ablation tolerated well anticoagulated on Eliquis (3) Angina pectoris: no further chest pain stop nitroglycerin drip troponin 0.5 and 0.7, likely due to CKD Continue Eliquis and Plavix appreciate input from Dr. Manuel would be high risk for cath given CKD no chest pain or pressure on 06/06 (4) Diffuse large B-cell lymphoma of extranodal site: Continue supportive care (5) Chronic kidney disease with active medical management without dialysis, stage 3 (moderate): Cr trended up to 2.98 with aggressive Lasix repeat tomorrow, hold Lasix holding Lisinopril (6) Dyslipidemia: on a trial medication that is injected she asked about getting lipid profile, has only been on it a few weeks discussed that it would be too soon, should follow up with PCP (7) Diabetes 1.5, managed as type 2: continue basal and bolus insulin some hypoglycemia in the AM on 06/06 will decrease Humalog from 28 to 10 units at night, see how her sugars respond in the morning (8) Sleep apnea: CPAP machine at night Subjective patient doing well today, breathing well, no chest pain she says she "feels like a new woman with her pacemaker" she did admit that she is feeling weak noted that her rates are mostly in the 70-90 range but there were some rates in the 100's will increase her metoprolol to BID as it should be dosed discussed patient with Dr. Manuel, from a cardiology perspective he is okay with her going home patient eating okay, moving bowels updated at the bedside reviewed labs, Cr went up to 2.98 after Lasix, stopped Lasix in the AM Review of Systems Review of Systems: All systems reviewed & are unremarkable except as noted in HPI & below Constitutional: + fatigue and + weakness; no fever Respiratory: + dyspnea on exertion; no cough, no dyspnea and no wheezing Cardiovascular: no chest pain and no edema Gastrointestinal: no abdominal pain, no nausea, no vomiting, no constipation and no diarrhea/loose stools Physical Exam Constitutional: WD/WN, vitals as above Eyes: PERRL, conjunctivae normal, anicteric sclerae ENMT: external ear and nose normal, oropharynx normal Neck: trachea midline, no thyromegaly Respiratory: normal respiratory effort, lungs clear to auscultation Cardiovascular: Rate/Rhythm: regular rate and + irregularly irregular Heart Sounds: normal S1 and normal S2; no murmur Vessels: no JVD Extremities: normal capillary refill; no edema Gastrointestinal (Abdomen): normal bowel sounds, soft, nontender, no hepatosplenomegaly Musculoskeletal: no cyanosis or clubbing, extremities motor strength 5/5 Skin: no rashes, warm and dry Neurologic: patellar DTR's 2+ bilat, sensation intact and PERRL, EOMI, accommodation nl, no face palsy, no dysarthria Psychiatric: A+Ox3, euthymic affect Lymphatic: no cervical or axillary lymphadenopathy Results & Data Vital Signs (Past 12 Hours) Vital Signs Temp Pulse Pulse Resp BP Pulse Ox 06/06/19 08:00 123 H 06/06/19 07:40 36.5 C 84 18 107/75 91 06/06/19 03:06 36.5 C 89 19 121/66 91 06/05/19 23:38 36.7 C 82 18 111/62 93 Laboratory Results Laboratory Results - last 24 hr 06/05/19 06/05/19 06/05/19 12:03 16:33 20:22 WBC RBC Hgb Hct MCV MCH MCHC RDW Std Deviation RDW Coeff of Nhi Plt Count MPV Platelet Estimate Sodium Potassium Chloride Carbon Dioxide Anion Gap BUN Creatinine Est Cr Clr Drug Dosing Est GFR ( Amer) Est GFR (Non-Af Amer) BUN/Creatinine Ratio Glucose POC Glucose 170 H 174 H 63 L* Calcium Magnesium Total Bilirubin AST ALT Alkaline Phosphatase Total Protein Albumin Globulin Albumin/Globulin Ratio 06/05/19 06/05/19 06/06/19 20:23 20:42 03:02 WBC RBC Hgb Hct MCV MCH MCHC RDW Std Deviation RDW Coeff of Nhi Plt Count MPV Platelet Estimate Sodium Potassium Chloride Carbon Dioxide Anion Gap BUN Creatinine Est Cr Clr Drug Dosing Est GFR ( Amer) Est GFR (Non-Af Amer) BUN/Creatinine Ratio Glucose POC Glucose 66 L* 75 87 Calcium Magnesium Total Bilirubin AST ALT Alkaline Phosphatase Total Protein Albumin Globulin Albumin/Globulin Ratio 06/06/19 06/06/19 06/06/19 05:22 05:22 07:21 WBC 6.69 RBC 3.91 L Hgb 11.8 L Hct 38.1 MCV 97.4 MCH 30.2 MCHC 31.0 L RDW Std Deviation 59.5 H RDW Coeff of Nhi 16.9 H Plt Count 99 L MPV 13.1 H Platelet Estimate Decreased L Sodium 141 Potassium 4.0 Chloride 99 Carbon Dioxide 35 H Anion Gap 6.0 BUN 64 H Creatinine 2.98 H D Est Cr Clr Drug Dosing 15.9 Est GFR ( Amer) 16.7 Est GFR (Non-Af Amer) 14.4 BUN/Creatinine Ratio 21.4 H Glucose 185 H POC Glucose 213 H Calcium 8.2 L Magnesium 1.9 Total Bilirubin 0.4 AST 22 ALT 19 Alkaline Phosphatase 59 Total Protein 6.3 L Albumin 3.1 L Globulin 3.2 Albumin/Globulin Ratio 1.0 Medications Administered Current Inpatient Medications Acetaminophen (Tylenol) 650 mg PO Q4H PRN PRN Reason: Pain or Fever Stop: 07/04/19 13:55 Last Admin: 06/06/19 03:12 Dose: 650 mg Documented by: Al Hydrox/Mg Hydrox/Simethicone (Maalox) 15 ml PO Q4H PRN PRN Reason: Dyspepsia Stop: 07/04/19 13:55 Apixaban (Eliquis) 2.5 mg PO BID [facility] Stop: 07/04/19 20:59 Buspirone HCl (Buspar) 5 mg PO BID [facility] Stop: 07/04/19 20:59 Last Admin: 06/06/19 08:06 Dose: 5 mg Documented by: Clopidogrel Bisulfate (Plavix) 75 mg PO QAM [facility] Stop: 07/05/19 08:59 Last Admin: 06/06/19 08:06 Dose: 75 mg Documented by: Dextrose (Dextrose 50%) 25 - 50 ml IV UD PRN; Protocol PRN Reason: Hypoglycemia Protocol Stop: 07/04/19 14:01 Docusate Sodium (Colace) 100 mg PO BID [facility] Stop: 07/05/19 21:59 Last Admin: 06/06/19 08:05 Dose: 100 mg Documented by: Glucagon (Glucagen) 1 mg SQ UD PRN; Protocol PRN Reason: Hypoglycemia Protocol Stop: 07/04/19 14:01 Glucose (Glucose 40%) 15 - 30 gm PO UD PRN; Protocol PRN Reason: Hypoglycemia Protocol Stop: 07/04/19 14:01 Glucose (Dex4 Glucose) 4 - 8 tabs PO UD PRN; Protocol PRN Reason: Hypoglycemia Protocol Stop: 07/04/19 14:01 Heparin Sodium (Porcine) (Heparin Sod 100 Unit/Ml Flush) 5 ml FLUSH PRN PRN PRN Reason: Flush Stop: 07/05/19 01:14 Last Admin: 06/06/19 09:32 Dose: 5 ml Documented by: Cefazolin Sodium (Ancef 1000mg) 1,000 mg in 7.5 mls @ 2.5 mls/min IV Q8H [facility]; Protocol Stop: 06/06/19 19:29 Last Admin: 06/06/19 03:10 Dose: 2.5 mls/min Documented by: Furosemide 40 mg/ Syringe 4 mls @ 4 mls/min IV Q12 [facility] Stop: 07/05/19 20:59 Last Admin: 06/05/19 20:34 Dose: 4 mls/min Documented by: Insulin Glargine (Lantus Solostar Pen) 5 units SQ BID [facility] Stop: 07/05/19 21:29 Last Admin: 06/06/19 08:08 Dose: 5 units Documented by: Insulin Human Lispro (Humalog) 28 units SQ QDD [facility] Stop: 07/04/19 16:29 Last Admin: 06/05/19 16:44 Dose: 28 units Documented by: Insulin Human Lispro (Humalog) 11 units SQ QDB [facility] Stop: 07/05/19 07:29 Last Admin: 06/06/19 08:06 Dose: 11 units Documented by: Insulin Human Lispro (Humalog) 0 units SC ACHS [facility] Stop: 07/04/19 16:29 Last Admin: 06/06/19 08:07 Dose: 3 units Documented by: Insulin Human Lispro (Humalog) 18 units SQ QDL [facility] Stop: 07/05/19 11:29 Last Admin: 06/05/19 12:07 Dose: 18 units Documented by: Levothyroxine Sodium (Synthroid) 25 mcg PO DAILYBB [facility] Stop: 07/05/19 06:29 Last Admin: 06/06/19 06:22 Dose: 25 mcg Documented by: Magnesium Hydroxide (Milk Of Magnesia) 30 ml PO Q12H PRN PRN Reason: Constipation Stop: 07/04/19 13:55 Metoprolol Tartrate (Lopressor) 50 mg PO BID [facility] Stop: 07/06/19 20:59 Miscellaneous (Carbohydrates For Hypoglycemia) 15 - 30 gm PO UD PRN PRN Reason: Hypoglycemia Protocol Stop: 07/04/19 14:01 Last Admin: 06/05/19 20:27 Dose: 15 gm Documented by: Nitroglycerin (Nitrostat) 0.4 mg SL Q5M PRN PRN Reason: chest pain Stop: 07/04/19 13:48 Polyethylene Glycol (Miralax Powder Packet) 17 gm PO DAILY PRN PRN Reason: Constipation Stop: 07/04/19 13:55 Pregabalin (Lyrica) 200 mg PO BID [facility] Stop: 07/04/19 20:59 Last Admin: 06/06/19 08:18 Dose: 200 mg Documented by: Zolpidem Tartrate (Ambien) 5 mg PO HS PRN PRN Reason: Sleep Stop: 07/04/19 13:55 PG Care Time/CCT Total # of Minutes Spent Total Time Spent with Patient: Total time spent is greater than 50% in coordination of care (as documented) at patient's floor/unit and/or counseling patient:
--- NOTE | 2019-06-06 11:08 | XRay Report ---
XR chest 2V PA/lateral CLINICAL HISTORY: Chest x-ray status post pacemaker placement COMPARISON STUDY: 06/04/2019 FINDINGS: The heart remains enlarged. There is a left-sided A-Port catheter. There is been interval p lacement of a right subclavian dual-chamber central venous pacemaker. Electrode position is unremarka ble. There is no evidence of pneumothorax. There is mild central pulmonary vascular congestion simila r to the preceding study. There are suspected postsurgical changes within the left upper lobe. IMPRESSION: 1. No evidence of pneumothorax status post placement of a right subclavian dual-chamber central venou s pacemaker. Electronically signed by: Olaf Muir M.D. 06/06/2019 11:07 AM
--- NOTE | 2019-06-06 12:52 | Cardiology Progress Note ---
Date of Service June 06, 2019 Assessment & Plan (1) CHF (congestive heart failure): She did have some elevated both pulmonary and wedge pressures yesterday suggesting an element of diastolic heart failure. However, attempts at more aggressive diuresis of only resulted in worsening renal function. Perhaps we have reached a an endpoint in her diuretic management. I think if her symptoms are improved and clinically she is feeling well we can continue her on her outpatient dose of diuretic. (2) A-fib: To continues to be in atrial fibrillation. She seems to feel well despite the arrhythmia. Overall heart rates appear adequate. The glide a better understanding whether she requires more metoprolol when she has been more active. I have a low threshold for increasing her metoprolol to 75 or 100 milligrams daily based on her blood pressure. No concerns over bradycardia now that the pacemaker is in place. I think would be reasonable to restart her apixaban tonight. (3) Chest pain, precordial: No recurrence. Currently feeling well. She is known to have an element of coronary disease and appears to have had some demand ischemia. Hopefully with better control of her atrial fibrillation she will have fewer symptoms and controlled heart rates. Subjective This morning patient clearly feeling well. She has not had any additional episodes of chest discomfort. He states that her breathing is fine in the pain at the device implant site is minimal. Review of Systems Review of Systems: Per HPI Physical Exam Physical Exam: She is alert and oriented x3. Mood affect appear normal. She answered all questions appropriately. HEENT: Sclerae are anicteric. Pupils are equal and reactive to light and accommodation. Extraocular movements were intact. Neuro: Cranial nerves intact Neck: Examination of the submandibular region did not reveal any significant lymphadenopathy. Carotids are palpable bilaterally and free of bruits on auscultation. The thyroid was not enlarged. Lungs: Lungs are clear to auscultation bilaterally. There are no rales wheezes or rhonchi. She has normal respiratory effort without use of accessory muscles. There is normal pulmonary excursion. Cardiac: The rhythm was irregular. S1 and S2 were normal. There are no murmurs on examination. The PMI was not markedly displaced on palpation. Chest: Device implant site in the right upper pectoral area without hematoma or drainage. Very small amount of ecchymosis. Abdomen: The abdomen was soft and nontender. Extremities: Patient has bilateral radial pulses that are equal in intensity. There is no evidence cyanosis or clubbing. There was no evidence of significant peripheral edema bilaterally. Skin: There are no rashes noted on examination today. Results & Data Vital Signs (Past 12 Hours) Vital Signs Temp Pulse Pulse Resp BP Pulse Ox 06/06/19 11:55 36.5 C 73 20 119/76 98 06/06/19 08:00 123 H 06/06/19 07:40 36.5 C 84 18 107/75 91 06/06/19 03:06 36.5 C 89 19 121/66 91 Laboratory Results Abnormal Lab Results 06/05/19 06/05/19 06/05/19 16:33 20:22 20:23 WBC RBC Hgb Hct MCV MCH MCHC RDW Std Deviation RDW Coeff of Nhi Plt Count MPV Platelet Estimate Sodium Potassium Chloride Carbon Dioxide Anion Gap BUN Creatinine Est Cr Clr Drug Dosing Est GFR ( Amer) Est GFR (Non-Af Amer) BUN/Creatinine Ratio Glucose POC Glucose 174 H 63 L* 66 L* Calcium Magnesium Total Bilirubin AST ALT Alkaline Phosphatase Total Protein Albumin Globulin Albumin/Globulin Ratio 06/05/19 06/06/19 06/06/19 20:42 03:02 05:22 WBC 6.69 RBC 3.91 L Hgb 11.8 L Hct 38.1 MCV 97.4 MCH 30.2 MCHC 31.0 L RDW Std Deviation 59.5 H RDW Coeff of Nhi 16.9 H Plt Count 99 L MPV 13.1 H Platelet Estimate Decreased L Sodium Potassium Chloride Carbon Dioxide Anion Gap BUN Creatinine Est Cr Clr Drug Dosing Est GFR ( Amer) Est GFR (Non-Af Amer) BUN/Creatinine Ratio Glucose POC Glucose 75 87 Calcium Magnesium Total Bilirubin AST ALT Alkaline Phosphatase Total Protein Albumin Globulin Albumin/Globulin Ratio 06/06/19 06/06/19 05:22 07:21 WBC RBC Hgb Hct MCV MCH MCHC RDW Std Deviation RDW Coeff of Nhi Plt Count MPV Platelet Estimate Sodium 141 Potassium 4.0 Chloride 99 Carbon Dioxide 35 H Anion Gap 6.0 BUN 64 H Creatinine 2.98 H D Est Cr Clr Drug Dosing 15.9 Est GFR ( Amer) 16.7 Est GFR (Non-Af Amer) 14.4 BUN/Creatinine Ratio 21.4 H Glucose 185 H POC Glucose 213 H Calcium 8.2 L Magnesium 1.9 Total Bilirubin 0.4 AST 22 ALT 19 Alkaline Phosphatase 59 Total Protein 6.3 L Albumin 3.1 L Globulin 3.2 Albumin/Globulin Ratio 1.0 Diagnostic Findings Chest x-ray obtained today revealed good lead placement without evidence of pneumothorax Device interrogation revealed good sensing on both leads and good pacing parameters on the right ventricular lead. PG Care Time/CCT Total # of Minutes Spent Total Time Spent with Patient: Total time spent is greater than 50% in coordination of care (as documented) at patient's floor/unit and/or counseling patient: (1) CHF (congestive heart failure) Heart failure chronicity: unspecified Heart failure type: unspecified Qualified Code(s): I50.9 - Heart failure, unspecified (2) A-fib Atrial fibrillation type: unspecified Qualified Code(s): I48.91 - Unspecified atrial fibrillation
[2019-06-06] MEDS ORDERED: INSULIN HUMAN LISPRO (humaLOG) 100 UNITS/ML VIAL SQ SCH ×2 (16:30→17:05)
[2019-06-06] MEDS ORDERED: Nursing to Pharmacy Communication ONE (16:53)
[2019-06-06] MEDS: APIXABAN 2.5 MG TAB PO SCH (21:54)
[2019-06-07] MEDS: ACETAMINOPHEN 325 MG TAB PO PRN (04:07)
[2019-06-07] MEDS: LEVOTHYROXINE SODIUM 25 MCG TABLET PO SCH (05:56)
[2019-06-07 08:31] LABS: BUN Creatinine Ratio 25.1 (10-20); Creatinine Clr Calc Pharmacy 18.5 ml/min; Est GFR (African American) 20.1; Est GFR (Non-African American) 17.3; Potassium 4.3 mmol/L (3.5-5.1)
[2019-06-07] MEDS: INSULIN HUMAN LISPRO (humaLOG) 100 UNITS/ML VIAL SQ SCH ×2 (08:39→12:16)
[2019-06-07] MEDS: INSULIN HUMAN LISPRO (humaLOG) 100 UNITS/ML VIAL SC SCH ×2 (08:40→12:16)
[2019-06-07] MEDS: INSULIN GLARGINE SOLOSTAR 100 UNITS/ML 3 ML PEN SQ SCH (08:41)
[2019-06-07] MEDS: DOCUSATE SODIUM 100 MG CAP PO SCH (08:47)
[2019-06-07] MEDS: CLOPIDOGREL BISULFATE 75 MG TAB PO SCH (08:48)
[2019-06-07] MEDS: APIXABAN 2.5 MG TAB PO SCH (08:48)
[2019-06-07] MEDS: METOPROLOL TARTRATE 50 MG TAB PO SCH (08:51)
[2019-06-07] MEDS: PREGABALIN 100 MG CAP PO SCH (08:51)
--- NOTE | 2019-06-07 11:00 | Cardiology Progress Note ---
Date of Service June 07, 2019 Assessment & Plan (1) CHF (congestive heart failure): Overall she is feeling better. Her diuretic has been held due to declining renal function which is improved today. At some point I think we can simply to restart her outpatient medical regimen included furosemide 80 milligrams twice daily. (2) A-fib: He appears asymptomatic currently. Overall rate control appears quite good on her current medical regimen. They will monitor her rates either on telemetry through her device when she is discharged in good decide on more aggressive rate control. Apixaban was restarted last night. No evidence of significant hematoma at the implant site. (3) Chest pain, precordial: No recurrence. Currently feeling well. She is known to have an element of coronary disease and appears to have had some demand ischemia. Hopefully with better control of her atrial fibrillation she will have fewer symptoms and controlled heart rates. Subjective This morning patient claims feeling well. She still has little energy at times especially when she attempts to ambulate. However, she was happy with the ambulation she is able do yesterday. No pain at the implant site. Overall feeling better. Review of Systems Review of Systems: Per HPI Physical Exam Physical Exam: She is alert and oriented x3. Mood affect appear normal. She answered all questions appropriately. HEENT: Sclerae are anicteric. Pupils are equal and reactive to light and accommodation. Extraocular movements were intact. Neuro: Cranial nerves intact Neck: Examination of the submandibular region did not reveal any significant lymphadenopathy. Carotids are palpable bilaterally and free of bruits on auscultation. The thyroid was not enlarged. Lungs: Lungs are clear to auscultation bilaterally. There are no rales wheezes or rhonchi. She has normal respiratory effort without use of accessory muscles. There is normal pulmonary excursion. Cardiac: The rhythm was irregular. S1 and S2 were normal. There are no murmurs on examination. The PMI was not markedly displaced on palpation. Chest: Device implant site in the right upper pectoral area without hematoma or drainage. Very small amount of ecchymosis. Abdomen: The abdomen was soft and nontender. Extremities: Patient has bilateral radial pulses that are equal in intensity. There is no evidence cyanosis or clubbing. There was no evidence of significant peripheral edema bilaterally. Skin: There are no rashes noted on examination today. Results & Data Vital Signs (Past 12 Hours) Vital Signs Temp Pulse Pulse Resp BP BP Pulse Ox 06/07/19 08:00 94 H 06/07/19 07:57 36.4 C L 76 22 108/74 96 06/07/19 03:56 36.5 C 86 18 149/84 H 96 06/07/19 00:00 94 H 06/06/19 23:44 36.5 C 84 18 111/71 91 Laboratory Results Abnormal Lab Results 06/06/19 06/06/19 06/06/19 11:36 16:11 21:41 Sodium Potassium Chloride Carbon Dioxide Anion Gap BUN Creatinine Est Cr Clr Drug Dosing Est GFR ( Amer) Est GFR (Non-Af Amer) BUN/Creatinine Ratio Glucose POC Glucose 183 H 103 H 117 H Calcium 06/07/19 06/07/19 06/07/19 03:37 07:33 07:46 Sodium 139 Potassium 4.3 Chloride 101 Carbon Dioxide 34 H Anion Gap 5.0 BUN 64 H Creatinine 2.56 H D Est Cr Clr Drug Dosing 18.5 Est GFR ( Amer) 20.1 Est GFR (Non-Af Amer) 17.3 BUN/Creatinine Ratio 25.1 H Glucose 207 H POC Glucose 135 H 222 H Calcium 8.0 L (1) CHF (congestive heart failure) Heart failure chronicity: unspecified Heart failure type: unspecified Qualified Code(s): I50.9 - Heart failure, unspecified (2) A-fib Atrial fibrillation type: unspecified Qualified Code(s): I48.91 - Unspecified atrial fibrillation
--- NOTE | 2019-06-07 15:51 | Discharge Summary ---
Date of Service June 07, 2019 Admission HPI Per Admitting Provider 79-year-old female with past medical history of dyslipidemia, recent B-cell lymphoma in the lung status post chemotherapy,/surgery, chronic respiratory failure on 2 L of oxygen at home recently increased to 3 L, essential hypertension, atrial fibrillation/paroxysmal, coronary artery disease, morbid obesity, obstructive sleep apnea, and chronic kidney disease stage III, diabetes mellitus insulin requiring, patient presented to the ED with chest pain and atrial fibrillation/RVR, patient stated that she was in her regular state of health until about 2 weeks ago when she started slowly gaining weight and having more lower extremity swelling. Patient also gets short of breath when she lays flat so she sleeps raising the head of the bed up about 30 degrees, patient stated that she recently had to increase her oxygen from 2 L to 3 L to help her breathe better. She was taking a shower today and while she was in the bathroom she started developing chest pain chest pain was substernal described as heaviness, initially was moderate and progressively became severe, referred to her jaw. Patient came out of the bathroom and took multiple nitroglycerin and that her tongue pain called 911, in route the patient received aspirin by paramedics, also received Cardizem by the time she got to the ER her heart rate was under control in the range of high 80s. But she continued to have mild chest pain about 5/10 Primary Care Provider: Lizet Jeter DO Principal Diagnosis Chest pain Discharge Exam Constitutional WD/WN, vitals as above Eyes PERRL, conjunctivae normal, anicteric sclerae ENMT external ear and nose normal, oropharynx normal Neck trachea midline, no thyromegaly Respiratory normal respiratory effort, lungs clear to auscultation Cardiovascular Rate/Rhythm: regular rate and + irregularly irregular Heart Sounds: normal S1 and normal S2; no murmur Vessels: no JVD Extremities: normal capillary refill; no edema Gastrointestinal (Abdomen) normal bowel sounds, soft, nontender, no hepatosplenomegaly Musculoskeletal no cyanosis or clubbing, extremities motor strength 5/5 Skin no rashes, warm and dry Neurologic patellar DTR's 2+ bilat, sensation intact and PERRL, EOMI, accommodation nl, no face palsy, no dysarthria Psychiatric A+Ox3, euthymic affect Lymphatic no cervical or axillary lymphadenopathy Discharge Data Allergies Allergy/AdvReac Type Severity Reaction Status Date / Time eptifibatide Allergy Severe ANAPHYLAXIS Verified 06/04/19 12:05 hornet venom Allergy Severe WASP VENOM Verified 06/04/19 12:05 PROTEIN-ANAPHYLAXIS levofloxacin [From Levaquin] Allergy Severe Hives Verified 06/04/19 12:05 atorvastatin Allergy Unknown MUSCLE PAIN Verified 06/04/19 12:05 ezetimibe Allergy Unknown MUSCLE PAIN Verified 06/04/19 12:05 simvastatin Allergy Unknown MUSCLE PAIN Verified 06/04/19 12:05 amlodipine AdvReac Severe Nausea Verified 06/04/19 12:05 azithromycin AdvReac Intermediate Palpitation Verified 06/04/19 12:05 s warfarin AdvReac Intermediate EXTREME Verified 06/04/19 12:05 BLEEDING TIMES codeine AdvReac Mild VOMITING Verified 06/04/19 12:05 gemfibrozil AdvReac Mild NAUSEA Verified 06/04/19 12:05 meperidine AdvReac Mild VOMITING Verified 06/04/19 12:05 ondansetron AdvReac Mild vomiting Verified 06/04/19 12:05 ranitidine [From Zantac] AdvReac Mild dyspepsia Verified 06/04/19 12:05 cortisone AdvReac Unknown INCREASES Verified 06/04/19 12:05 SUGAR AND VOMITING? hydralazine AdvReac Unknown VOMITING Verified 06/04/19 12:05 ibuprofen AdvReac Unknown VOMITING Verified 06/04/19 12:05 AND DIARRHEA iodine AdvReac Unknown SHELLFISH Verified 06/04/19 12:05 - VOMITING shellfish derived AdvReac Unknown VOMITING Verified 06/04/19 12:05 Sulfa (Sulfonamide AdvReac Unknown VOMITING Verified 06/04/19 12:05 Antibiotics) Consultations 06/04/19 12:37 ED Decision to Admit Stat 06/04/19 13:56 Consult Cardiology Routine Procedures Performed Operation Date: 06/05/19 10:00 Actual Procedures p Pacer with A/V Leads (Dual) - Gopi Manuel MD s Right Heart Cath Only - Gopi Manuel MD Operation Date: 06/05/19 10:00 <No data on this case meets the specified criteria> Ordered Studies 06/05/19 09:51 CL Cath Imgs for PACS use only Routine Hospital Course (1) Acute on chronic systolic congestive heart failure, NYHA class 2: no further response to Lasix IV, examines euvolemic continue fluid restriction, daily weights on discharge, specific heart failure instructions given continue Lasix 80mg PO BID instructed to call PCP or cardiology if weight up by 2-3 lbs Cr went up with Lasix IV, peaked at 2.8, drifting back down to 2.5 off the Lasix IV (2) Atrial fibrillation with RVR: continue metoprolol, increased Lopressor 50mg to BID now that pacemaker in place dual chamber pacemaker placed 06/05 with plans for aggressive rate control, possible ablation tolerated well anticoagulated on Eliquis instructions for pacemaker provided, follow up with Dr. Manuel (3) Angina pectoris: no further chest pain stop nitroglycerin drip on 06/05 troponin 0.5 and 0.7, likely due to CKD Continue Eliquis and Plavix appreciate input from Dr. Manuel would be high risk for cath given CKD no chest pain or pressure for three days prior to discharge (4) Diffuse large B-cell lymphoma of extranodal site: Continue supportive care (5) Chronic kidney disease with active medical management without dialysis, stage 3 (moderate): Cr trended up to 2.98 with aggressive Lasix, down to 2.5 off the Lasix safe to resume Lasix PO on discharge and Lisinopril (6) Diabetes 1.5, managed as type 2: continue basal and bolus insulin some hypoglycemia in the AM on 06/06 likely fine to resume home dosing of insulin as she likely eats more carbs at home (7) Sleep apnea: CPAP machine at night Total Time Total Time Spent Total Time Spent (In Minutes): 37 minutes Total Time Includes: Examination of the Patient, Discharge Planning, Medication Reconciliation and Communication With Other Providers (cardiology) Discharge Plan Discharge Items Patient Disposition: Home - Home Health Services Reason For Visit: CHEST PAIN Discharge Diagnosis: Atrial fibrillation Acute on chronic diastolic heart failure Chest pain Condition on Discharge: Good Goals: improve strength and mobility improve disease control Activity: Resume your previous activity Lifting: No more than 5 pounds Lifting Comment: right arm, do not lift right arm above head or reach back for 6 weeks Bathing: Keep incision dry Driving/Machine Use: No limitations Weightbearing: Full weightbearing Non-emergency contact: Primary Care Provider and Vacuum Frame Operator Call non-emergency contact if: you have any medication questions, your symptoms worsen, your pain is not controlled and you have a fever Follow-up/Referrals: Lizet Jeter, DO [Primary Care Provider] - Diet: Carb Consistent or DM2 and Heart Healthy Fluids: 2000ml (8 cups) Addtl Attending Provider Instructions: Medications: - METOPROLOL: 50mg twice a day, you were previously taking once a day, dose increased because you now have a pacemaker so heart rate cannot go slow - LASIX: 80mg twice a day, start tonight - BASAGLAR: while you were hospitalized we reduced your dose, however, your diet is likely better while here, you can resume the 28 units you were taking at home Chest pain: no evidence of acute heart attack, likely just chronic angina Atrial fibrillation: you had pacemaker placed while here with Dr. Manuel, can now be more aggressive with heart rate control metoprolol 50mg increased from once a day to twice a day, Heart rate has been stable continue anticoagulation with Eliquis Acute on chronic diastolic heart failure resolved, continue on Lasix 80mg twice a day, can resume this evening important to follow fluid restriction of less than 2 liters of fluid a day, low sodium diet of less than 2gm a day WEIGH yourself every morning, generally recommend that you step on scale after you urinate, before you eat or drink record your weights, if at any time they are up by 2-3 lbs from your baseline, call cardiology office for instructions Pacemaker: placed by Dr. Manuel do not lift more than 5lbs with right arm do not lift right arm above head, do not reach backwards for 6 weeks, pacemaker and leads need to become secure FOLLOW UP - Dr. Jeter in one week, please call her office for appt - Dr. Manuel next week for pacemaker follow up, call [phone] for appointment Pending Studies at Discharge: No Stand-Alone Forms: [email or web address], Smoking Cessation Medications and DC Order Prescriptions: New metoprolol tartrate 50 mg Tablet 50 mg PO BID 30 Days Qty: 60 RF: 3 Continued nitroglycerin 0.4 mg tablet, sublingual 0.4 mg SL Q5M PRN (Reason: chest pain) Qty: 25 RF: 0 clopidogrel 75 mg tablet 75 mg PO QAM Qty: 90 RF: 1 Praluent Pen 75 mg/mL pen injector 75 mg SQ Q14D RF: 0 Eliquis 2.5 mg tablet 2.5 mg PO BID Qty: 180 RF: 3 furosemide 80 mg tablet 80 mg PO BID RF: 0 multivitamin Tablet 1 tab PO QAM RF: 0 buspirone 5 mg tablet 5 mg PO BID RF: 0 folic acid 400 mcg Tablet 400 mcg PO BID RF: 0 ascorbic acid (vitamin C) [Vitamin C] 1,000 mg Tablet 1 g PO QAM RF: 0 ergocalciferol (vitamin D2) [Vitamin D2] 50,000 unit Capsule 50,000 unit PO MONTHLY RF: 0 amoxicillin 500 mg Tablet 2,000 mg PO UD RF: 0 pregabalin [Lyrica] 200 mg capsule 200 mg PO BID RF: 0 levothyroxine 25 mcg tablet 25 mcg PO DAILY RF: 0 furosemide 40 mg tablet 40 mg PO UD PRN (Reason: Edema) RF: 0 Basaglar KwikPen U-100 Insulin 100 unit/mL (3 mL) insulin pen 28 unit subcut BID RF: 0 insulin lispro [Humalog KwikPen Insulin] 100 unit/mL insulin pen 18 unit subcut QDL RF: 0 insulin lispro [Humalog KwikPen Insulin] 100 unit/mL insulin pen 11 unit subcut QDB RF: 0 insulin lispro [Humalog KwikPen Insulin] 100 unit/mL insulin pen 28 unit subcut QDD RF: 0 Discontinued metoprolol tartrate [Lopressor] 50 mg tablet 50 mg PO DAILY RF: 0 Discharge Orders: Discharge Order (Routine); Ordered 06/07/19 Ordered By: Campos Yuen/Other Patient Handouts: Pacemaker, Implantation Pacemaker Dc, Meds Taking Admission Data Admit Date/Time: 06/04/19 13:52 Attending Provider: Campos Bingham Admit Provider: Suhail Gutierrez Primary Care Provider: Lizet Jeter Other Providers: Suhail Gutierrez ; Gopi Manuel ; [facility] Other Interventions: Discharge Summary Assessment (RN) Last Done: 06/07/19 15:42 DC Date/Time DO NOT enter until pt leaves facility: 06/07/19 16:50
[2019-06-07] MEDS ORDERED: HEPARIN 100 UNIT/ML 5ML FLUSH FLUSH PRN (16:02)
[2019-06-07] MEDS: HEPARIN 100 UNIT/ML 5ML FLUSH FLUSH PRN (16:20)
[2019-06-07] MEDS ORDERED: INSULIN HUMAN LISPRO (humaLOG) 100 UNITS/ML VIAL SQ SCH (16:30)
== END 2019-06-07 16:50 | disposition home health service (06) | DRG 242 ==
LOC: ED 10:51 → SUATTDRO 13:52 → 2S 13:52
PROC: CLB.CRH (2019-06-05 10:00)

== ENCOUNTER 2019-07-12 09:47 | Inpatient (IN) ==
[2019-07-12] MEDS ORDERED: METOPROLOL TARTRATE 1 MG/ML VIAL IV STA ×2 (10:35→11:46)
--- NOTE | 2019-07-12 11:00 | XRay Report ---
XR chest 1V portable HISTORY: 79 years-old Female eval for pna acute shortness of breath with clinical concern for pneumo dariel COMPARISON: Chest radiographs 06/06/2019 TECHNIQUE: Portable AP view of the chest FINDINGS: Unchanged left subclavian [id number] catheter and right subclavian pacer. Coronary arterial stent grafts are noted. Cardiomegaly. Calcified plaque of the thoracic aortic arch. Pulmonary vascular alphonse estion with interstitial coarsening. Postoperative changes of the left lung. No pneumothorax. Bluntin g of the costophrenic angles with left basilar opacities. Degenerative changes of the shoulders and s pine. No large pleural effusion. IMPRESSION: 1. Cardiomegaly with pulmonary vascular congestion. 2. Left basilar and midlung opacities suggest probable atelectasis. Superimposed pneumonitis would be difficult to exclude. 3. Possible trace effusions. ACT 112: Negative or not required by law. The above report was generated using voice recognition software. It may contain grammatical, syntax o r spelling errors. Electronically signed by: Dipak Tapia M.D. 07/12/2019 10:58 AM
--- NOTE | 2019-07-12 11:14 | CT Scan Report ---
HEAD CT NONCONTRAST CT DOSE: 614.27 mGy.cm HISTORY: Altered mental status. TECHNIQUE: Multiaxial CT images of the head were performed without the use of intravenous contrast. A utomated exposure control was utilized for this study. A dose lowering technique was utilized adheri ng to the principles of ALARA. Comparison: Head CT 11/15/2018. Findings: The paranasal sinuses and mastoid air cells are clear. The calvarium and skull base are int act. There is no mass, hematoma, midline shift, acute infarct. White matter hypodensity is nonspecifi c but suggestive of microvascular ischemic change. The ventricles and sulci demonstrate mild age-rela anjana involutional changes. Prior right lateral craniotomy. Mild thickening and calcification at the un derlying dura of the craniotomy site. This remains stable. Impression: No significant change compared to the prior study. No acute intracranial abnormality. ACT 112: Negative or not required by law. Electronically signed by: Jeremy Moran M.D. 07/12/2019 11:13 AM
[2019-07-12 11:36] LABS: Hematocrit (blood only) 36.5 % (37-47); Hemoglobin 11.2 g/dL (12.0-16.0); Mean Corpuscular Hemoglobin 30.4 pg (25-34); Mean Corpuscular Hgb Conc 30.7 g/dL (32-36); Mean Corpuscular Volume 99.2 fL (80-100); Nucleated RBC # (auto) 0.13 K/uL (0-0); Nucleated RBC % (auto) 1.8 %; Platelet Count 124 K/uL (130-400); RDW Coefficient of Variation 16.4 % (11.5-14.5); RDW Standard Deviation 59.1 fL (36.4-46.3); Red Blood Count 3.68 M/uL (4.2-5.4); White Blood Count 7.35 K/uL (4.8-10.8)
[2019-07-12 11:52] LABS: Albumin Level 2.9 gm/dl (3.4-5.0); BUN Creatinine Ratio 35.4 (10-20); Calcium 9.4 mg/dl (8.5-10.1); Est GFR (African American) 24.5; Est GFR (Non-African American) 21.1; Magnesium 1.9 mg/dl (1.8-2.4); Potassium 4.4 mmol/L (3.5-5.1)
[2019-07-12 11:58] LABS: Basophils # (auto) 0.04 K/uL (0-0.2); Basophils % (auto) 0.5 %; Eosinophils # (auto) 0.08 K/uL (0-0.5); Eosinophils % (auto) 1.1 %; Immature Granulocytes # (auto) 0.38 K/uL (0.00-0.02); Immature Granulocytes % (auto) 5.2 %; Lymphocytes # (auto) 0.89 K/uL (1.2-3.4); Lymphocytes % (auto) 12.1 %; Monocytes # (auto) 0.72 K/uL (0.11-0.59); Monocytes % (auto) 9.8 %; Neutrophils # (auto) 5.24 K/uL (1.4-6.5); Neutrophils % (auto) 71.3 %
[2019-07-12 12:03] LABS: Albumin Globulin Ratio 0.7 (0.9-2); Bilirubin,Total 0.6 mg/dl (0.2-1); Globulin 3.9 gm/dl (2.5-4.0); INR 1.1 (0.9-1.1); Partial Thromboplastin Ratio 1.1; Partial Thromboplastin Time 29.9 Seconds (21.0-31.0); Prothrombin Time 11.4 Seconds (9.0-12.0); Thyroid Stimulating Hormone 1.65 uIu/ml (0.300-4.500); Total Protein 6.8 gm/dl (6.4-8.2)
[2019-07-12] MEDS ORDERED: dilTIAZem HCL 125 MG in DEXTROSE 5% 100 ML IV SCH (12:30)
[2019-07-12 12:31] LABS: Appearance Urine Clear (Clear); Bacteria Urine Automated Negative (Negative); Bilirubin Urine Negative (Negative); Blood Urine Negative (Negative); Color Urine Yellow; Glucose Urine UA Negative (Negative); Ketones Urine Negative (Negative); Leukocyte Esterase Urine Negative (Negative); Nitrite Urine Negative (Negative); Protein Urine Trace (Negative); RBC Urine Automated 0-4 /hpf (0-4); Specific Gravity Urine 1.019 (1.000-1.030); Urobilinogen Urine Negative (Negative); WBC Urine Automated 0 /hpf (0-5)
[2019-07-12] MEDS: dilTIAZem HCL 125 MG in DEXTROSE 5% 100 ML IV SCH ×2 (13:05→23:12)
--- NOTE | 2019-07-12 13:27 | History & Physical Report ---
Date of Service July 12, 2019 Assessment & Plan (1) ACS (acute coronary syndrome): Admit to PCU on telemetry Vital signs every 4 hours Strict in and out Daily weight Free fluid restriction p.o. to 1200 mils per day Monitor electrolytes and replenish as needed Low-sodium diet Started diltiazem drip with bolus for A. fib with RVR control Consult cardiology Patient is a apixaban for A. fib's which will also serve as a DVT prophylaxis Full code Present on Admission?: Yes (2) Thrombocytopenia: Continue monitoring. Patient denies bruising, melena, hematuria, hematemesis, nosebleed. Present on Admission?: Yes (3) Elevated troponin: Patient troponin is elevated to 0.27. In the setting of EKG with atrial flutter and variable AV block market ST abnormality possibly lateral subendocardial injury we will consult cardiology. Patient is already on apixaban anticoagulated. Continue apixaban. Started diltiazem drip with bolus for better rate control. Patient may need cardiac intervention depending on her progression of troponin. Troponin x3 every 6 hours with EKG Present on Admission?: Yes (4) Chronic kidney disease: Patient is CKD stage IV. Avoid nephrotoxic agents. Monitor creatinine and GFR. We will consult nephrology. Present on Admission?: Yes (5) Anemia: Anemia of chronic disease. Continue monitoring. PRBC transfusion if hemoglobin drops below 8. No internal or external bleeding at this time is noted Present on Admission?: Yes (6) CHF (congestive heart failure): TTE pending Started diuresis with Lasix IV. Titrate up as needed. Volume overload Worsening kidney function. Patient may need temporary hemodialysis for volume overload if not responsive to Lasix. We will consult nephrology. Present on Admission?: Yes (7) Chronic kidney disease, stage 4 (severe): As above already discussed patient with cardiorenal syndrome. Present on Admission?: Yes (8) Paroxysmal atrial tachycardia: Continue apixaban. Monitor rate with diltiazem drip and bolus. Present on Admission?: Yes (9) Sleep apnea: Will offer CPAP at night. Patient can bring her own from home Present on Admission?: Yes (10) Diabetes 1.5, managed as type 2: Glycemic control Per pharmacy. Accu-Cheks before meals and at bedtime. A1c pending. Patient is on insulin and should receive two thirds of the home dose while in the hospital to prevent hypoglycemia. Present on Admission?: Yes (11) Dyslipidemia: Lipid panel pending. Patient is allergic on atorvastatin and Zetia. Will defer to cardiology for possibly prescription of Repatha after lipid panel is available. Present on Admission?: Yes (12) Atrial fibrillation with RVR: As already discussed. Present on Admission?: Yes History of Present Illness Chief Complaint: Altered mental status and chest pain Primary Care Provider: Lizet Jeter DO Patient is a 79 years old female with past medical history of diabetes mellitus type 2, hyperlipidemia, atrial fibrillation/flutter with RVR anticoagulation with apixaban, sleep apnea, diastolic congestive heart failure, chronic kidney disease stage IV, paroxysmal atrial tachycardia with a pacemaker-[employer] as you are XT DR MORFIN dual-chamber pacemaker placed 06/05/2019, hypertension , patient had stent placed for residual nonocclusive disease 1 months ago, apical variant hypertrophic cardiomyopathy who was brought by EMS per request of her because patient since this morning was not behaving properly, she was confused and she was complaining of chest pain. She was yesterday seen by cardiology in [facility] their device clinic for 1 months follow-up. Patient heart rate was in atrial tachycardia with the rate of 120 bpm, and they attempted to actually burst pace her out of this rhythm but it was not successful. Her atrial therapies were turned on. Her pacemaker and interrogation is functioning appropriately with appropriate pacing and sensing characteristics. They discussed AV clarisse ablation with Dr. Manuel in the past. Patient had her pacemaker implanted but she also needs to have AV node ablated. Patient was advised to follow-up in 3 months. Patient is poor historian and it is hard to review systems with her. Patient is at the bedside and he states that patient is not acting herself. Patient was able to confirm that she denies fever, chills, abdominal pain, frequency, urgency. 3 years ago patient had hemorrhage to her brain and she was treated in [facility]. Labs are reviewed: WBC 7.35, hemoglobin 11.2, hematocrit 36.5, platelets 124, PT 11.4, INR 1.1, APTT 29.9, sodium 140, potassium 4.4, BUN 77, creatinine 2.17, GFR 21.1, magnesium 1.9, AST 22 ALT 23 troponin 0 0.27, BNP 10,394, TSH 1.650. Urine trace proteins, 5-10 hyaline casts and 10-20 epithelial cells otherwise negative. Chest x-ray shows cardiomegaly with pulmonary vascular congestion, left basilar and midlung opacities suggesting probably atelectasis. Superimposed pneumonitis would be difficult to exclude. Possibly trace effusion. CT of the head shows no significant change compared to the prior study. No acute intracranial abnormality. Decision was made to admit patient to PCU on telemetry for further evaluation and treatment of acute exacerbation of acute diastolic congestive heart failure, to rule out possible acute coronary syndrome. Allergies Allergy/AdvReac Type Severity Reaction Status Date / Time eptifibatide Allergy Severe ANAPHYLAXIS Verified 07/12/19 11:00 hornet venom Allergy Severe WASP VENOM Verified 07/12/19 11:00 PROTEIN-ANAPHYLAXIS levofloxacin [From Levaquin] Allergy Severe Hives Verified 07/12/19 11:00 atorvastatin Allergy Unknown MUSCLE PAIN Verified 07/12/19 11:00 ezetimibe Allergy Unknown MUSCLE PAIN Verified 07/12/19 11:00 simvastatin Allergy Unknown MUSCLE PAIN Verified 07/12/19 11:00 amlodipine AdvReac Severe Nausea Verified 07/12/19 11:00 azithromycin AdvReac Intermediate Palpitation Verified 07/12/19 11:00 s warfarin AdvReac Intermediate EXTREME Verified 07/12/19 11:00 BLEEDING TIMES codeine AdvReac Mild VOMITING Verified 07/12/19 11:00 gemfibrozil AdvReac Mild NAUSEA Verified 07/12/19 11:00 meperidine AdvReac Mild VOMITING Verified 07/12/19 11:00 ondansetron AdvReac Mild vomiting Verified 07/12/19 11:00 ranitidine [From Zantac] AdvReac Mild dyspepsia Verified 07/12/19 11:00 cortisone AdvReac Unknown INCREASES Verified 07/12/19 11:00 SUGAR AND VOMITING? hydralazine AdvReac Unknown VOMITING Verified 07/12/19 11:00 ibuprofen AdvReac Unknown VOMITING Verified 07/12/19 11:00 AND DIARRHEA iodine AdvReac Unknown SHELLFISH Verified 07/12/19 11:00 - VOMITING shellfish derived AdvReac Unknown VOMITING Verified 07/12/19 11:00 Sulfa (Sulfonamide AdvReac Unknown VOMITING Verified 07/12/19 11:00 Antibiotics) Home Medications Home Medications Medication Instructions Recorded Confirmed Type ascorbic acid (vitamin C) [Vitamin 1 g PO QAM 06/20/18 07/12/19 History C] ergocalciferol (vitamin D2) 50,000 unit PO MONTHLY 06/20/18 07/12/19 History [Vitamin D2] multivitamin 1 tab PO QAM 06/20/18 07/12/19 History amoxicillin 2,000 mg PO UD 09/14/18 07/12/19 History pregabalin [Lyrica] 200 mg PO BID 01/18/19 07/12/19 History Basaglar KwikPen U-100 Insulin 28 unit SUBCUT BID 02/12/19 07/12/19 History furosemide [Lasix] 40 mg PO HS PRN 02/12/19 07/12/19 History nitroglycerin 0.4 mg sublingual 0.4 mg SL Q5M PRN #25 tab 02/26/19 07/12/19 History tablet insulin lispro [Humalog KwikPen 11 unit SUBCUT QDB 04/22/19 07/12/19 History Insulin] insulin lispro [Humalog KwikPen 18 unit SUBCUT QDL 04/22/19 07/12/19 History Insulin] insulin lispro [Humalog KwikPen 28 unit SUBCUT QDD 04/22/19 07/12/19 History Insulin] levothyroxine [Synthroid] 25 mcg PO QAM 06/04/19 07/12/19 History alirocumab [Praluent Pen] 75 mg SQ Q14D 07/12/19 07/12/19 History apixaban [Eliquis] 2.5 mg PO BID 07/12/19 07/12/19 History buspirone 10 mg PO TID 07/12/19 07/12/19 History clopidogrel [Plavix] 75 mg PO QAM 07/12/19 07/12/19 History furosemide [Lasix] 80 mg PO AMPM 07/12/19 07/12/19 History metoprolol tartrate [Lopressor] 50 mg PO BID 07/12/19 07/12/19 History Past Med/Surg History Medical History Angina pectoris Atrial fibrillation CAD (coronary artery disease) cardiac stents x 6; most recent: AWILDA x2 (mid/distal RCA) 07/06/18* Chronic kidney disease, stage 4 (severe) CKD (chronic kidney disease) stage 3, GFR 30-59 ml/min Diabetes (Chronic) Diastolic CHF 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) Dyslipidemia HTN (hypertension) (Chronic) Hypertrophic cardiomyopathy apical variant Lung cancer Myocardial infarction X4 JANICE treated with BiPAP Peripheral neuropathy Proteinuria (Chronic) Respiratory failure 2-3L O2 Subdural hematoma Thrombocytopenia chronic; baseline platelets low 100's Surgical History History of cardioversion MULTIPLE History of lung surgery PARTIAL LEFT LOBECTOMY (2013) Hx of brain surgery 2017 S/P FALL/INJURY; SUBSEQUENT BLOOD CLOT EVACUATION S/P cardiac catheterization 7 TOTAL; CARDIAC STENTS X6 S/P hysterectomy S/P tonsillectomy Family History Father Cancer Heart disease Diabetes Mother Stroke Hypertension Grandmother (Maternal) Coronary heart disease Stroke Family/Other Multiple sclerosis Brother Coronary heart disease Grandfather (Maternal) Heart disease Grandfather (Paternal) Diabetes Aunt Muscular dystrophy Other Gallbladder disease Kidney stones Social History Preferred Language: Palestinian Communication Ability: Unable Manager Business Intelligence Required: No Beliefs That Will Affect Care: None marital status: Current Living Situation: Spouse 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: Retired/Disabled Other Information That Helps Us Care for You: No Feels Safe at Home: Yes Safety Concerns: Feels Safe At This Time Smoking Status: Never smoker Do You Dip or Chew Tobacco: No ; Second Hand Exposure: No ; Tobacco Cessation Education Requested by Patient: No Hx Alcohol Use: No Hx Substance Use: No Review of Systems Review of Systems: All systems reviewed & are unremarkable except as noted in HPI & below Physical Exam Constitutional: WD/WN, vitals as above well developed, + acute distress, + ill appearing and + morbidly obese Eyes: PERRL, conjunctivae normal, anicteric sclerae ENMT: external ear and nose normal, oropharynx normal Neck: trachea midline, no thyromegaly Respiratory: Auscultation: + wheezes Cardiovascular: Rate/Rhythm: + irregularly irregular Heart Sounds: normal S1 and normal S2 Palpation: + palpable S3 Vessels: + JVD and dorsalis pedis pulses present Extremities: + pedal edema Gastrointestinal (Abdomen): normal bowel sounds, soft, nontender, no hepatosplenomegaly Musculoskeletal: no cyanosis or clubbing, extremities motor strength 5/5 Skin: no rashes, warm and dry Neurologic: patellar DTR's 2+ bilat, sensation intact Psychiatric: A+Ox3, euthymic affect Lymphatic: no cervical or axillary lymphadenopathy Results & Data Vital Signs (Past 12 Hours) Vital Signs Temp Pulse Pulse Resp BP BP Pulse Ox 07/12/19 13:00 111 H 20 133/86 98 07/12/19 11:33 115 H 20 146/92 H 97 07/12/19 09:55 36.6 C 118 H 20 145/95 H 94 Code Status & VTE Plan Code Status Full code VTE Prophylaxis Plan VTE Prophylaxis will be ordered: Yes PG Care Time/CCT Total # of Minutes Spent Total Time Spent with Patient: Total time spent is greater than 50% in coordination of care (as documented) at patient's floor/unit and/or counseling patient: (1) Chronic kidney disease Chronic kidney disease stage: unspecified stage Qualified Code(s): N18.9 - Chronic kidney disease, unspecified (2) Anemia Anemia type: unspecified type Qualified Code(s): D64.9 - Anemia, unspecified (3) CHF (congestive heart failure) Heart failure chronicity: unspecified Heart failure type: unspecified Qualified Code(s): I50.9 - Heart failure, unspecified
[2019-07-12] MEDS ORDERED: GLUCOSE 10 TABS/TUBE PO PRN (14:18)
[2019-07-12] MEDS ORDERED: GLUCOSE 40% GEL 15 GM TUBE PO PRN (14:18)
[2019-07-12] MEDS ORDERED: NITROGLYCERIN SL 0.4 MG/TAB TAB SL PRN (14:18)
[2019-07-12] MEDS ORDERED: DEXTROSE 50% 50 ML SYRINGE IV PRN (14:18)
[2019-07-12] MEDS ORDERED: ACETAMINOPHEN 325 MG TAB PO PRN (14:18)
[2019-07-12] MEDS ORDERED: ALUMINUM/MAGNESIUM SUSP 30 ML UDC PO PRN (14:18)
[2019-07-12] MEDS ORDERED: MAGNESIUM HYDROXIDE SUSP 30 ML UDC PO PRN (14:18)
[2019-07-12] MEDS ORDERED: POLYETHYLENE (MIRALAX) 17 GM PACK PO PRN (14:18)
[2019-07-12] MEDS ORDERED: ONDANSETRON INJ 2 MG/ML 2 ML VIAL IV PRN (14:18)
[2019-07-12] MEDS ORDERED: GLUCAGON FOR INJ 1 MG VIAL SQ PRN (14:18)
[2019-07-12] MEDS ORDERED: CARBOHYDRATES FOR HYPOGLYCEMIA PO PRN (14:18)
[2019-07-12] MEDS ORDERED: PHARMACY GLYCEMIC MGMT CONSULT PRN (14:43)
[2019-07-12] MEDS ORDERED: INSULIN GLARGINE SOLOSTAR 100 UNITS/ML 3 ML PEN SC STA (14:59)
--- NOTE | 2019-07-12 15:12 | Pharmacy Report ---
Glycemic Control Consultation - Date of Service July 12, 2019 - Scope Scope: Glycemic Pharmacist consulted for glycemic control and to write orders per [facility] inpatient glycemic control protocol - Objective Weight: 91.2 kg Accuchecks BSG (last 24hrs): 07/12/19 07/12/19 07/12/19 09:56 11:20 14:33 Glucose 236 H POC Glucose 234 H 236 H Laboratory Data (last 24hrs): 07/12/19 11:20 Potassium 4.4 Carbon Dioxide 34 H Anion Gap 6.0 Creatinine 2.17 H Est Cr Clr Drug Dosing 22.0 - Recent Pertinent Medications Outpatient Anti-diabetic Regimen: * Basaglar 28 units SC BID * Humalog 06/11/28 units SC TIDM, respectively * A1c = 8.6 % on 06/05/19, repeat ordered by provider for tomorrow Risk Factors for Insulin Resistance: * Diet: T2DM - Assessment & Plan Assessment & Plan: ASSESSMENT: * 79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 * Recent admission data reviewed - hypo and hyperglycemia noted. Hypoglycemia likely 2nd home Humalog regimen utilized (not CHO based). Hyperglycemia possibly attributed to significantly reduced basal insulin as compared to home * Will still reduce basal insulin compared to home dose, but not as much as previous * Will utilize CHO ratio instead of fixed-dose rapid acting insulin * Patient has not received any basal insulin today per medication history obtained. Will therefore give one-time dose now then again tonight based on BSG. PLAN FOR INPATIENT GLYCEMIC CONTROL: * Basal insulin: Lantus 20 units SC x1 now, then HS x1 tonight based on BSG * 0 units for BSG less than 140 mg/dL * 10 units for BSG 140-180 mg/dL * 20 units for BSG greater than 180 mg/dL * Bolus insulin * NovoLog per scale ACHS and one overnight check * Goal Range: 120 mg/dL - 160 mg/dL * Correction Factor: 20 mg/dL/unit * Nutritional / Prandial insulin per carb ratio of 1 unit per 6 grams CHO consumed * Please note that the plan above was derived based on current level of insulin resistance and hospital stress. These recommendations are appropriate for inpatient admission only. Plan of care upon discharge will need to be reassessed to avoid potential outpatient hypo/hyperglycemia. Thank you.
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
[2019-07-12] MEDS: FUROSEMIDE 40 MG in SYRINGE 0 ML IV SCH (17:03)
[2019-07-12] MEDS: INSULIN ASPART 100 UNITS/ML 3 ML PEN SC SCH ×2 (17:03→21:29)
--- NOTE | 2019-07-12 18:14 | Nephrology Consultation ---
Date of Consultation July 12, 2019 Assessment & Plan (1) Chronic kidney disease, stage 4 (severe): Baseline creatinine has been approximately 1.8-2.2. Patient is recovering from recent acute kidney injury associated with cardiorenal syndrome. Her urinalysis shows trace protein but is otherwise benign. Urine microscopy demonstrates hyaline casts. Serum electrolytes are appropriate. The patient has mild chronic anemia with a hemoglobin 11.2. She is nonoliguric. Volume status is currently acceptable. Chest x-ray does show some evidence of pulmonary vascular congestion. Patient does have some evidence of right greater than left heart failure on exam. I suspect this may improve with control of her heart rate. She has been started on a diltiazem drip. Her blood pressure is appropriate. Cardiology consultation is pending. Suggest be accurately document input and output. I would also suggest we monitor daily morning weights. I will repeat a metabolic profile tomorrow morning. In the interim, patient's medications are appropriately dosed for kidney function. No a dditional evaluation regarding her kidney dysfunction is necessary at this time. I will continue to follow during the hospitalization. It is noted that the patient's are bed previously been discontinued due to acute on chronic kidney dysfunction. I would continue her home dose of diuretic Lasix 80 milligrams twice daily. History of Present Illness Reason for Consultation: CKD Requesting Physician: Lolis Fierro MD Attending Physician: Lolis Fierro MD History of Present Illness Maureen is a 79-year-old female with chronic kidney disease and a history of KENDELL. She follows with Dr. Sherman in the nephrology clinic. Maureen was seen and evaluated in the clinic yesterday regarding a history of KENDELL related to tachybrady syndrome. She was also evaluated in the Cardiology clinic yesterday as well. Maureen was admitted to [facility] today with some confusion and chest pain. She had no acute complaints at the time of my assessment. Maureen has paroxysmal atrial fibrillation. Atrial rate has been difficult to control. She underwent dual chamber pacer placement last month but unfortunately continues to have atrial tachycardia. Consideration is being given to AV node ablation. Maureen was seen and evaluated today for assessment of her kidney dysfunction. She has baseline CKD IV with a serum creatinine of 1.7 - 2.0 mg/dL. Renal impairment is due to diabetic nephropathy and hypertensive nephrosclerosis. Urine sediment has been benign with trace proteinuria. Renal US has revealed asymmetry but no other structural abnormality. She recently suffered KENDELL relate d to tachybrady syndrome. Creatinine has improved to 2.2 mg/dL. Electrolytes are acceptable. She was evaluated with her at the bedside. Medical history is also notable for labile hypertension that has been difficult to control. Maureen has autonomic insufficiency w/ frequent near syncopal events. 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 Required debulking surgery of the main mass and then started EPOCH-R 04/11/2013. She completed 6 months of chemotherapy September 2013. She is now in complete remission. She continues to follow closely with Oncology), subdural hematoma s/p [facility] Allergies Allergy/AdvReac Type Severity Reaction Status Date / Time eptifibatide Allergy Severe ANAPHYLAXIS Verified 07/12/19 11:00 hornet venom Allergy Severe WASP VENOM Verified 07/12/19 11:00 PROTEIN-ANAPHYLAXIS levofloxacin [From Levaquin] Allergy Severe Hives Verified 07/12/19 11:00 atorvastatin Allergy Unknown MUSCLE PAIN Verified 07/12/19 11:00 ezetimibe Allergy Unknown MUSCLE PAIN Verified 07/12/19 11:00 simvastatin Allergy Unknown MUSCLE PAIN Verified 07/12/19 11:00 amlodipine AdvReac Severe Nausea Verified 07/12/19 11:00 azithromycin AdvReac Intermediate Palpitation Verified 07/12/19 11:00 s warfarin AdvReac Intermediate EXTREME Verified 07/12/19 11:00 BLEEDING TIMES codeine AdvReac Mild VOMITING Verified 07/12/19 11:00 gemfibrozil AdvReac Mild NAUSEA Verified 07/12/19 11:00 meperidine AdvReac Mild VOMITING Verified 07/12/19 11:00 ondansetron AdvReac Mild vomiting Verified 07/12/19 11:00 ranitidine [From Zantac] AdvReac Mild dyspepsia Verified 07/12/19 11:00 cortisone AdvReac Unknown INCREASES Verified 07/12/19 11:00 SUGAR AND VOMITING? hydralazine AdvReac Unknown VOMITING Verified 07/12/19 11:00 ibuprofen AdvReac Unknown VOMITING Verified 07/12/19 11:00 AND DIARRHEA iodine AdvReac Unknown SHELLFISH Verified 07/12/19 11:00 - VOMITING shellfish derived AdvReac Unknown VOMITING Verified 07/12/19 11:00 Sulfa (Sulfonamide AdvReac Unknown VOMITING Verified 07/12/19 11:00 Antibiotics) Home Medications Home Medications Medication Instructions Recorded Confirmed Type ascorbic acid (vitamin C) [Vitamin 1 g PO QAM 06/20/18 07/12/19 History C] ergocalciferol (vitamin D2) 50,000 unit PO MONTHLY 06/20/18 07/12/19 History [Vitamin D2] multivitamin 1 tab PO QAM 06/20/18 07/12/19 History amoxicillin 2,000 mg PO UD 09/14/18 07/12/19 History pregabalin [Lyrica] 200 mg PO BID 01/18/19 07/12/19 History Basaglar KwikPen U-100 Insulin 28 unit SUBCUT BID 02/12/19 07/12/19 History furosemide [Lasix] 40 mg PO HS PRN 02/12/19 07/12/19 History nitroglycerin 0.4 mg sublingual 0.4 mg SL Q5M PRN #25 tab 02/26/19 07/12/19 History tablet insulin lispro [Humalog KwikPen 11 unit SUBCUT QDB 04/22/19 07/12/19 History Insulin] insulin lispro [Humalog KwikPen 18 unit SUBCUT QDL 04/22/19 07/12/19 History Insulin] insulin lispro [Humalog KwikPen 28 unit SUBCUT QDD 04/22/19 07/12/19 History Insulin] levothyroxine [Synthroid] 25 mcg PO QAM 06/04/19 07/12/19 History alirocumab [Praluent Pen] 75 mg SQ Q14D 07/12/19 07/12/19 History apixaban [Eliquis] 2.5 mg PO BID 07/12/19 07/12/19 History buspirone 10 mg PO TID 07/12/19 07/12/19 History clopidogrel [Plavix] 75 mg PO QAM 07/12/19 07/12/19 History furosemide [Lasix] 80 mg PO AMPM 07/12/19 07/12/19 History metoprolol tartrate [Lopressor] 50 mg PO BID 07/12/19 07/12/19 History Patient History Medical History Angina pectoris Atrial fibrillation CAD (coronary artery disease) cardiac stents x 6; most recent: AWILDA x2 (mid/distal RCA) 07/06/18* Chronic kidney disease, stage 4 (severe) CKD (chronic kidney disease) stage 3, GFR 30-59 ml/min Diabetes (Chronic) Diastolic CHF 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) Dyslipidemia HTN (hypertension) (Chronic) Hypertrophic cardiomyopathy apical variant Lung cancer Myocardial infarction X4 JANICE treated with BiPAP Peripheral neuropathy Proteinuria (Chronic) Respiratory failure 2-3L O2 Subdural hematoma Thrombocytopenia chronic; baseline platelets low 100's Surgical History History of cardioversion MULTIPLE History of lung surgery PARTIAL LEFT LOBECTOMY (2013) Hx of brain surgery 2017 S/P FALL/INJURY; SUBSEQUENT BLOOD CLOT EVACUATION S/P cardiac catheterization 7 TOTAL; CARDIAC STENTS X6 S/P hysterectomy S/P tonsillectomy Family History Father Cancer Heart disease Diabetes Mother Stroke Hypertension Grandmother (Maternal) Coronary heart disease Stroke Family/Other Multiple sclerosis Brother Coronary heart disease Grandfather (Maternal) Heart disease Grandfather (Paternal) Diabetes Aunt Muscular dystrophy Other Gallbladder disease Kidney stones Social History Preferred Language: Telugu Communication Ability: Unable Head Paper Tester Required: No Beliefs That Will Affect Care: None marital status: Current Living Situation: Spouse 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: Retired/Disabled Feels Safe at Home: Yes Smoking Status: Never smoker Second Hand Exposure: No ; Hx Alcohol Use: No Hx Substance Use: No Review of Systems Review of Systems: All systems reviewed & are unremarkable except as noted in HPI & below Physical Exam Constitutional: + obese; no acute distress Eyes: + anicteric sclerae; no corneal abnormality ENMT: Mouth: no oral mucosal abnormality and oral mucous membranes not dry Neck: normal visual inspection and trachea midline Respiratory: normal respiratory effort Auscultation: lungs clear to auscultation bilaterally Cardiovascular: Rate/Rhythm: + tachycardic Heart Sounds: normal S1 and normal S2 Vessels: + JVD Extremities: + edema Gastrointestinal (Abdomen): Percussion/Palpation: abdomen soft; abdomen nontender Musculoskeletal: Extremities: no cyanosis and no clubbing Skin: normal turgor; no lesions Neurologic: Motor/Sensory: no tremor and no asterixis Psychiatric: Orientation: alert and oriented x 3 Results & Data Vital Signs (Past 12 Hours) Vital Signs Temp Pulse Pulse Resp BP BP Pulse Ox 07/12/19 16:09 36.8 C 109 H 20 143/60 H 96 07/12/19 13:48 120 H 20 143/76 H 96 07/12/19 13:00 111 H 20 133/86 98 07/12/19 11:33 115 H 20 146/92 H 97 07/12/19 09:55 36.6 C 118 H 20 145/95 H 94 Laboratory Results Laboratory Results - last 24 hr 07/12/19 07/12/19 07/12/19 09:56 11:20 11:20 WBC 7.35 RBC 3.68 L Hgb 11.2 L Hct 36.5 L MCV 99.2 MCH 30.4 MCHC 30.7 L RDW Std Deviation 59.1 H RDW Coeff of [place] 16.4 H Plt Count 124 L MPV 13.0 H Immature Gran % (Auto) 5.2 Neut % (Auto) 71.3 Lymph % (Auto) 12.1 [place] % (Auto) 9.8 Eos % (Auto) 1.1 Baso % (Auto) 0.5 Immature Gran # (Auto) 0.38 H Neut # (Auto) 5.24 Lymph # (Auto) 0.89 L [place] # (Auto) 0.72 H Eos # (Auto) 0.08 Baso # (Auto) 0.04 Absolute Nucleated RBC 0.13 H Nucleated RBC % (auto) 1.8 PT INR APTT PTT Ratio Sodium 140 Potassium 4.4 Chloride 100 Carbon Dioxide 34 H Anion Gap 6.0 BUN 77 H Creatinine 2.17 H Est Cr Clr Drug Dosing 22.0 Est GFR ( Amer) 24.5 Est GFR (Non-Af Amer) 21.1 BUN/Creatinine Ratio 35.4 H Glucose 236 H POC Glucose 234 H Calcium 9.4 Magnesium 1.9 Total Bilirubin 0.6 AST 22 ALT 23 Alkaline Phosphatase 87 POC Troponin I NT-Pro-B Natriuret Pep 85778 H Total Protein 6.8 Albumin 2.9 L Globulin 3.9 Albumin/Globulin Ratio 0.7 L Procalcitonin TSH 1.650 Urine Color Urine Appearance Urine pH Ur Specific [place] Urine Protein Urine Glucose (UA) Urine Ketones Urine Blood Urine Nitrite Urine Bilirubin Urine Urobilinogen Ur Leukocyte Esterase Urine WBC (Auto) Urine RBC (Auto) U Hyaline Cast (Auto) U Epithel Cells (Auto) Urine Bacteria (Auto) 07/12/19 07/12/19 07/12/19 11:20 11:20 11:27 WBC RBC Hgb Hct MCV MCH MCHC RDW Std Deviation RDW Coeff of [place] Plt Count MPV Immature Gran % (Auto) Neut % (Auto) Lymph % (Auto) [place] % (Auto) Eos % (Auto) Baso % (Auto) Immature Gran # (Auto) Neut # (Auto) Lymph # (Auto) [place] # (Auto) Eos # (Auto) Baso # (Auto) Absolute Nucleated RBC Nucleated RBC % (auto) PT 11.4 INR 1.1 APTT 29.9 PTT Ratio 1.1 Sodium Potassium Chloride Carbon Dioxide Anion Gap BUN Creatinine Est Cr Clr Drug Dosing Est GFR ( Amer) Est GFR (Non-Af Amer) BUN/Creatinine Ratio Glucose POC Glucose Calcium Magnesium Total Bilirubin AST ALT Alkaline Phosphatase POC Troponin I 0.27 H NT-Pro-B Natriuret Pep Total Protein Albumin Globulin Albumin/Globulin Ratio Procalcitonin 0.33 TSH Urine Color Urine Appearance Urine pH Ur Specific [place] Urine Protein Urine Glucose (UA) Urine Ketones Urine Blood Urine Nitrite Urine Bilirubin Urine Urobilinogen Ur Leukocyte Esterase Urine WBC (Auto) Urine RBC (Auto) U Hyaline Cast (Auto) U Epithel Cells (Auto) Urine Bacteria (Auto) 07/12/19 07/12/19 07/12/19 12:10 14:33 16:08 WBC RBC Hgb Hct MCV MCH MCHC RDW Std Deviation RDW Coeff of [place] Plt Count MPV Immature Gran % (Auto) Neut % (Auto) Lymph % (Auto) [place] % (Auto) Eos % (Auto) Baso % (Auto) Immature Gran # (Auto) Neut # (Auto) Lymph # (Auto) [place] # (Auto) Eos # (Auto) Baso # (Auto) Absolute Nucleated RBC Nucleated RBC % (auto) PT INR APTT PTT Ratio Sodium Potassium Chloride Carbon Dioxide Anion Gap BUN Creatinine Est Cr Clr Drug Dosing Est GFR ( Amer) Est GFR (Non-Af Amer) BUN/Creatinine Ratio Glucose POC Glucose 236 H 294 H Calcium Magnesium Total Bilirubin AST ALT Alkaline Phosphatase POC Troponin I NT-Pro-B Natriuret Pep Total Protein Albumin Globulin Albumin/Globulin Ratio Procalcitonin TSH Urine Color Yellow Urine Appearance Clear Urine pH 5.0 Ur Specific [place] 1.019 Urine Protein Trace H Urine Glucose (UA) Negative Urine Ketones Negative Urine Blood Negative Urine Nitrite Negative Urine Bilirubin Negative Urine Urobilinogen Negative Ur Leukocyte Esterase Negative Urine WBC (Auto) 0 Urine RBC (Auto) 0-4 U Hyaline Cast (Auto) 5-10 H U Epithel Cells (Auto) 10-20 H Urine Bacteria (Auto) Negative PG Care Time/CCT Total # of Minutes Spent Total Time Spent with Patient: Total time spent is greater than 50% in coordination of care (as documented) at patient's floor/unit and/or counseling patient:
[2019-07-12] MEDS ORDERED: INSULIN GLARGINE SOLOSTAR 100 UNITS/ML 3 ML PEN SC ONE (21:00)
[2019-07-12] MEDS ORDERED: APIXABAN 2.5 MG TAB PO SCH (21:00)
[2019-07-12] MEDS ORDERED: INSULIN GLARGINE SOLOSTAR 100 UNITS/ML 3 ML PEN SQ SCH (21:00)
[2019-07-12] MEDS: PREGABALIN 100 MG CAP PO SCH (21:26)
[2019-07-13] MEDS ORDERED: INSULIN ASPART 100 UNITS/ML 3 ML PEN SC ONE (02:00)
[2019-07-13] MEDS: LEVOTHYROXINE SODIUM 25 MCG TABLET PO SCH (06:13)
[2019-07-13 06:45] LABS: Mean Corpuscular Hgb Conc 30.4 g/dL (32-36); Nucleated RBC # (auto) 0.13 K/uL (0-0); Nucleated RBC % (auto) 1.9 %
[2019-07-13 07:15] LABS: Hematocrit (blood only) 36.2 % (37-47); Mean Corpuscular Hemoglobin 30.1 pg (25-34); Mean Corpuscular Volume 98.9 fL (80-100); Mean Platelet Volume 13.2 fL (7.4-10.4); Platelet Count 135 K/uL (130-400); RDW Coefficient of Variation 16.7 % (11.5-14.5); Red Blood Count 3.66 M/uL (4.2-5.4); White Blood Count 6.71 K/uL (4.8-10.8)
[2019-07-13 07:16] LABS: Basophils # (auto) 0.04 K/uL (0-0.2); Basophils % (auto) 0.6 %; Eosinophils # (auto) 0.12 K/uL (0-0.5); Eosinophils % (auto) 1.8 %; Immature Granulocytes # (auto) 0.31 K/uL (0.00-0.02); Immature Granulocytes % (auto) 4.6 %; Lymphocytes # (auto) 0.75 K/uL (1.2-3.4); Lymphocytes % (auto) 11.2 %; Monocytes # (auto) 0.84 K/uL (0.11-0.59); Monocytes % (auto) 12.5 %; Neutrophils # (auto) 4.65 K/uL (1.4-6.5); Neutrophils % (auto) 69.3 %
[2019-07-13 07:21] LABS: Albumin Level 2.8 gm/dl (3.4-5.0); BUN Creatinine Ratio 35.8 (10-20); Calcium 8.6 mg/dl (8.5-10.1); Creatinine Clr Calc Pharmacy 22.2 ml/min; Est GFR (African American) 24.5; Est GFR (Non-African American) 21.1; Potassium 4.2 mmol/L (3.5-5.1)
[2019-07-13 07:26] LABS: Albumin Globulin Ratio 0.7 (0.9-2); Bilirubin,Total 0.6 mg/dl (0.2-1); Estimated Average Glucose 177 mg/dl; Hemoglobin A1C 7.8 % (4.5-5.6); Total Protein 6.8 gm/dl (6.4-8.2)
[2019-07-13] MEDS: PREGABALIN 100 MG CAP PO SCH ×3 (07:44→23:30)
[2019-07-13] MEDS: FUROSEMIDE 40 MG in SYRINGE 0 ML IV SCH ×2 (07:45→16:42)
[2019-07-13] MEDS: CLOPIDOGREL BISULFATE 75 MG TAB PO SCH (07:45)
[2019-07-13] MEDS: ASCORBIC ACID 500 MG TAB PO SCH (07:46)
[2019-07-13] MEDS: INSULIN ASPART 100 UNITS/ML 3 ML PEN SC SCH ×4 (07:46→20:47)
[2019-07-13] MEDS: MULTIVITAMIN TAB PO SCH (07:46)
[2019-07-13] MEDS ORDERED: INSULIN GLARGINE SOLOSTAR 100 UNITS/ML 3 ML PEN SC ONE ×4 (09:00→21:00)
--- NOTE | 2019-07-13 09:52 | Nephrology Progress Note ---
Date of Service July 13, 2019 Assessment & Plan (1) Chronic kidney disease, stage 4 (severe): Creatinine is stable. Electrolytes are appropriate. Urine output is non- oliguric. Furosemide 40 mg IV provided this morning. Goal is to encourage a slightly negative fluid balance. I suspect there will be continued improvement with heart rate control. I discussed the plan of care with Dr. Manuel this morning. Possible ablation today. Continue to document strict I/O. Measure daily weights. Repeat metabolic profile tomorrow AM. Medications are appropriately dosed for kidney function. Subjective No acute events overnight. Improvement in dyspnea noted. Remains weak. No lightheadedness or dizziness. Denies chest pain today. Review of Systems Review of Systems: All systems reviewed & are unremarkable except as noted in HPI & below Physical Exam Constitutional: + obese; no acute distress Eyes: + anicteric sclerae; no corneal abnormality ENMT: Mouth: no oral mucosal abnormality and oral mucous membranes not dry Neck: normal visual inspection and trachea midline Respiratory: normal respiratory effort Auscultation: lungs clear to auscultation bilaterally Cardiovascular: Rate/Rhythm: + tachycardic Heart Sounds: normal S1 and normal S2 Vessels: + JVD Extremities: + edema Gastrointestinal (Abdomen): Percussion/Palpation: abdomen soft; abdomen nontender Musculoskeletal: Extremities: no cyanosis and no clubbing Skin: normal turgor; no lesions Neurologic: Motor/Sensory: no tremor and no asterixis Psychiatric: Orientation: alert and oriented x 3 Results & Data Vital Signs (Past 12 Hours) Vital Signs Temp Pulse Resp BP Pulse Ox 07/13/19 07:34 36.6 C 94 H 20 148/76 H 92 07/13/19 04:38 37.0 C 86 18 135/66 95 07/12/19 23:23 36.4 C L 82 22 120/92 96 Laboratory Results Laboratory Results - last 24 hr 07/12/19 07/12/19 07/12/19 09:56 11:20 11:20 WBC 7.35 RBC 3.68 L Hgb 11.2 L Hct 36.5 L MCV 99.2 MCH 30.4 MCHC 30.7 L RDW Std Deviation 59.1 H RDW Coeff of [place]hi 16.4 H Plt Count 124 L MPV 13.0 H Immature Gran % (Auto) 5.2 Neut % (Auto) 71.3 Lymph % (Auto) 12.1 [place] % (Auto) 9.8 Eos % (Auto) 1.1 Baso % (Auto) 0.5 Immature Gran # (Auto) 0.38 H Neut # (Auto) 5.24 Lymph # (Auto) 0.89 L [place] # (Auto) 0.72 H Eos # (Auto) 0.08 Baso # (Auto) 0.04 Absolute Nucleated RBC 0.13 H Nucleated RBC % (auto) 1.8 PT INR APTT PTT Ratio Sodium 140 Potassium 4.4 Chloride 100 Carbon Dioxide 34 H Anion Gap 6.0 BUN 77 H Creatinine 2.17 H Est Cr Clr Drug Dosing 22.0 Est GFR ( Amer) 24.5 Est GFR (Non-Af Amer) 21.1 BUN/Creatinine Ratio 35.4 H Glucose 236 H POC Glucose 234 H Estimat Average Glucose Hemoglobin A1c Calcium 9.4 Magnesium 1.9 Total Bilirubin 0.6 AST 22 ALT 23 Alkaline Phosphatase 87 POC Troponin I Troponin I NT-Pro-B Natriuret Pep 12137 H Total Protein 6.8 Albumin 2.9 L Globulin 3.9 Albumin/Globulin Ratio 0.7 L Triglycerides Cholesterol LDL Cholesterol, Calc VLDL Cholesterol, Calc HDL Cholesterol Cholesterol/HDL Ratio Procalcitonin TSH 1.650 Urine Color Urine Appearance Urine pH Ur Specific [place] Urine Protein Urine Glucose (UA) Urine Ketones Urine Blood Urine Nitrite Urine Bilirubin Urine Urobilinogen Ur Leukocyte Esterase Urine WBC (Auto) Urine RBC (Auto) U Hyaline Cast (Auto) U Epithel Cells (Auto) Urine Bacteria (Auto) 07/12/19 07/12/19 07/12/19 11:20 11:20 11:27 WBC RBC Hgb Hct MCV MCH MCHC RDW Std Deviation RDW Coeff of [place] Plt Count MPV Immature Gran % (Auto) Neut % (Auto) Lymph % (Auto) [place] % (Auto) Eos % (Auto) Baso % (Auto) Immature Gran # (Auto) Neut # (Auto) Lymph # (Auto) [place] # (Auto) Eos # (Auto) Baso # (Auto) Absolute Nucleated RBC Nucleated RBC % (auto) PT 11.4 INR 1.1 APTT 29.9 PTT Ratio 1.1 Sodium Potassium Chloride Carbon Dioxide Anion Gap BUN Creatinine Est Cr Clr Drug Dosing Est GFR ( Amer) Est GFR (Non-Af Amer) BUN/Creatinine Ratio Glucose POC Glucose Estimat Average Glucose Hemoglobin A1c Calcium Magnesium Total Bilirubin AST ALT Alkaline Phosphatase POC Troponin I 0.27 H Troponin I NT-Pro-B Natriuret Pep Total Protein Albumin Globulin Albumin/Globulin Ratio Triglycerides Cholesterol LDL Cholesterol, Calc VLDL Cholesterol, Calc HDL Cholesterol Cholesterol/HDL Ratio Procalcitonin 0.33 TSH Urine Color Urine Appearance Urine pH Ur Specific [place] Urine Protein Urine Glucose (UA) Urine Ketones Urine Blood Urine Nitrite Urine Bilirubin Urine Urobilinogen Ur Leukocyte Esterase Urine WBC (Auto) Urine RBC (Auto) U Hyaline Cast (Auto) U Epithel Cells (Auto) Urine Bacteria (Auto) 07/12/19 07/12/19 07/12/19 12:10 14:33 16:08 WBC RBC Hgb Hct MCV MCH MCHC RDW Std Deviation RDW Coeff of [place] Plt Count MPV Immature Gran % (Auto) Neut % (Auto) Lymph % (Auto) [place] % (Auto) Eos % (Auto) Baso % (Auto) Immature Gran # (Auto) Neut # (Auto) Lymph # (Auto) [place] # (Auto) Eos # (Auto) Baso # (Auto) Absolute Nucleated RBC Nucleated RBC % (auto) PT INR APTT PTT Ratio Sodium Potassium Chloride Carbon Dioxide Anion Gap BUN Creatinine Est Cr Clr Drug Dosing Est GFR ( Amer) Est GFR (Non-Af Amer) BUN/Creatinine Ratio Glucose POC Glucose 236 H 294 H Estimat Average Glucose Hemoglobin A1c Calcium Magnesium Total Bilirubin AST ALT Alkaline Phosphatase POC Troponin I Troponin I NT-Pro-B Natriuret Pep Total Protein Albumin Globulin Albumin/Globulin Ratio Triglycerides Cholesterol LDL Cholesterol, Calc VLDL Cholesterol, Calc HDL Cholesterol Cholesterol/HDL Ratio Procalcitonin TSH Urine Color Yellow Urine Appearance Clear Urine pH 5.0 Ur Specific [place] 1.019 Urine Protein Trace H Urine Glucose (UA) Negative Urine Ketones Negative Urine Blood Negative Urine Nitrite Negative Urine Bilirubin Negative Urine Urobilinogen Negative Ur Leukocyte Esterase Negative Urine WBC (Auto) 0 Urine RBC (Auto) 0-4 U Hyaline Cast (Auto) 5-10 H U Epithel Cells (Auto) 10-20 H Urine Bacteria (Auto) Negative 07/12/19 07/13/19 07/13/19 20:43 02:12 06:23 WBC 6.71 RBC 3.66 L Hgb 11.0 L Hct 36.2 L MCV 98.9 MCH 30.1 MCHC 30.4 L RDW Std Deviation 60.0 H RDW Coeff of [place] 16.7 H Plt Count 135 MPV 13.2 H Immature Gran % (Auto) 4.6 Neut % (Auto) 69.3 Lymph % (Auto) 11.2 [place] % (Auto) 12.5 Eos % (Auto) 1.8 Baso % (Auto) 0.6 Immature Gran # (Auto) 0.31 H Neut # (Auto) 4.65 Lymph # (Auto) 0.75 L [place] # (Auto) 0.84 H Eos # (Auto) 0.12 Baso # (Auto) 0.04 Absolute Nucleated RBC 0.13 H Nucleated RBC % (auto) 1.9 PT INR APTT PTT Ratio Sodium Potassium Chloride Carbon Dioxide Anion Gap BUN Creatinine Est Cr Clr Drug Dosing Est GFR ( Amer) Est GFR (Non-Af Amer) BUN/Creatinine Ratio Glucose POC Glucose 209 H 225 H Estimat Average Glucose Hemoglobin A1c Calcium Magnesium Total Bilirubin AST ALT Alkaline Phosphatase POC Troponin I Troponin I NT-Pro-B Natriuret Pep Total Protein Albumin Globulin Albumin/Globulin Ratio Triglycerides Cholesterol LDL Cholesterol, Calc VLDL Cholesterol, Calc HDL Cholesterol Cholesterol/HDL Ratio Procalcitonin TSH Urine Color Urine Appearance Urine pH Ur Specific [place] Urine Protein Urine Glucose (UA) Urine Ketones Urine Blood Urine Nitrite Urine Bilirubin Urine Urobilinogen Ur Leukocyte Esterase Urine WBC (Auto) Urine RBC (Auto) U Hyaline Cast (Auto) U Epithel Cells (Auto) Urine Bacteria (Auto) 07/13/19 07/13/19 07/13/19 06:23 06:23 06:23 WBC RBC Hgb Hct MCV MCH MCHC RDW Std Deviation RDW Coeff of [place] Plt Count MPV Immature Gran % (Auto) Neut % (Auto) Lymph % (Auto) [place] % (Auto) Eos % (Auto) Baso % (Auto) Immature Gran # (Auto) Neut # (Auto) Lymph # (Auto) [place] # (Auto) Eos # (Auto) Baso # (Auto) Absolute Nucleated RBC Nucleated RBC % (auto) PT INR APTT PTT Ratio Sodium 143 Potassium 4.2 Chloride 102 Carbon Dioxide 36 H Anion Gap 5.0 BUN 78 H Creatinine 2.17 H Est Cr Clr Drug Dosing 22.2 Est GFR ( Amer) 24.5 Est GFR (Non-Af Amer) 21.1 BUN/Creatinine Ratio 35.8 H Glucose 169 H POC Glucose Estimat Average Glucose 177 Hemoglobin A1c 7.8 H Calcium 8.6 Magnesium Total Bilirubin 0.6 AST 18 ALT 20 Alkaline Phosphatase 83 POC Troponin I Troponin I 0.463 H* NT-Pro-B Natriuret Pep 7353 H Total Protein 6.8 Albumin 2.8 L Globulin 4.0 Albumin/Globulin Ratio 0.7 L Triglycerides 175 H Cholesterol 88 LDL Cholesterol, Calc 16 VLDL Cholesterol, Calc 35 HDL Cholesterol 37 Cholesterol/HDL Ratio 2 Procalcitonin TSH Urine Color Urine Appearance Urine pH Ur Specific [place] Urine Protein Urine Glucose (UA) Urine Ketones Urine Blood Urine Nitrite Urine Bilirubin Urine Urobilinogen Ur Leukocyte Esterase Urine WBC (Auto) Urine RBC (Auto) U Hyaline Cast (Auto) U Epithel Cells (Auto) Urine Bacteria (Auto) 07/13/19 07:38 WBC RBC Hgb Hct MCV MCH MCHC RDW Std Deviation RDW Coeff of [place] Plt Count MPV Immature Gran % (Auto) Neut % (Auto) Lymph % (Auto) [place] % (Auto) Eos % (Auto) Baso % (Auto) Immature Gran # (Auto) Neut # (Auto) Lymph # (Auto) [place] # (Auto) Eos # (Auto) Baso # (Auto) Absolute Nucleated RBC Nucleated RBC % (auto) PT INR APTT PTT Ratio Sodium Potassium Chloride Carbon Dioxide Anion Gap BUN Creatinine Est Cr Clr Drug Dosing Est GFR ( Amer) Est GFR (Non-Af Amer) BUN/Creatinine Ratio Glucose POC Glucose 200 H Estimat Average Glucose Hemoglobin A1c Calcium Magnesium Total Bilirubin AST ALT Alkaline Phosphatase POC Troponin I Troponin I NT-Pro-B Natriuret Pep Total Protein Albumin Globulin Albumin/Globulin Ratio Triglycerides Cholesterol LDL Cholesterol, Calc VLDL Cholesterol, Calc HDL Cholesterol Cholesterol/HDL Ratio Procalcitonin TSH Urine Color Urine Appearance Urine pH Ur Specific [place] Urine Protein Urine Glucose (UA) Urine Ketones Urine Blood Urine Nitrite Urine Bilirubin Urine Urobilinogen Ur Leukocyte Esterase Urine WBC (Auto) Urine RBC (Auto) U Hyaline Cast (Auto) U Epithel Cells (Auto) Urine Bacteria (Auto) PG Care Time/CCT Total # of Minutes Spent Total Time Spent with Patient: Total time spent is greater than 50% in coordination of care (as documented) at patient's floor/unit and/or counseling patient:
--- NOTE | 2019-07-13 10:00 | Cardiology Consultation ---
Date of Consultation July 13, 2019 Assessment & Plan (1) Atrial fibrillation with rapid ventricular response: She has struggle with atrial arrhythmias. She was felt to have paroxysmal atrial tachycardia, possibly atrial flutter and certainly atrial fibrillation. These arrhythmias have been difficult to control. She was previously on aggressive rhythm control strategy with amiodarone. However, this was even ineffectual. We have had difficulty controlling her rates and this likely contributes to both her symptoms and decompensation of diastolic heart failure. She previously undergone implantation of a dual-chamber permanent pacemaker in anticipation of an AV node ablation strategy. He was seem reasonable to continue with that strategy. I did discuss the risks benefits and alternatives with the patient today. We will plan on proceeding this afternoon. In the long run she will need to continue on her apixaban. While she will not require metoprolol for rate control subsequent to AV node ablation, she has a history of of significant coronary disease and likely benefit from continued use. (2) Elevated troponin: I do not think this is likely related to an acute coronary syndrome. Curiously, she did not present with any symptoms of chest discomfort. She is known to have significant coronary disease. This is likely related to her high ventricular rates and cardiac hypertrophy. Will continue her outpatient medical regimen which includes both apixaban, Plavix, Praluent and beta blockade. (3) Pacemaker: Implanted just over 1 month ago. She has not been using her pacemaker. (4) CHF (congestive heart failure): She does appear to have an element of pulmonary edema. This is likely related diastolic heart failure. Hopefully better control of her ventricular rates we will see less frequent decompensations. She will receive another dose of intravenous Lasix this morning. History of Present Illness Reason for Consultation: Atrial fibrillation Requesting Physician: Jami Attending Physician: Catarina Farrell MD History of Present Illness The patient is a 71-year-old woman with an extensive cardiac history to include coronary artery disease status post multiple percutaneous interventions, persistent atrial fibrillation, possible apical variant hypertrophy, not time to consult from a in remission and diabetes mellitus who was brought to the hospital over concerns of breathing difficulty and confusion. The patient provided history to me today. She did not recall any specific symptoms leading up to her admission yesterday. He states she was in disagreement with her who apparently felt that she was more confused. Currently she claims to be excited About a pending procedure for this afternoon. She denies significant breathing difficulty. She did not report any symptoms of chest discomfort leading up to her admission. She is aware of palpitations and feels like she is in atrial fibrillation. She has been minimally ambulatory but is undergoing physical therapy. He has not been aware of any lower extremity edema or swelling. Allergies Allergy/AdvReac Type Severity Reaction Status Date / Time eptifibatide Allergy Severe ANAPHYLAXIS Verified 07/12/19 11:00 hornet venom Allergy Severe WASP VENOM Verified 07/12/19 11:00 PROTEIN-ANAPHYLAXIS levofloxacin [From Levaquin] Allergy Severe Hives Verified 07/12/19 11:00 atorvastatin Allergy Unknown MUSCLE PAIN Verified 07/12/19 11:00 ezetimibe Allergy Unknown MUSCLE PAIN Verified 07/12/19 11:00 simvastatin Allergy Unknown MUSCLE PAIN Verified 07/12/19 11:00 amlodipine AdvReac Severe Nausea Verified 07/12/19 11:00 azithromycin AdvReac Intermediate Palpitation Verified 07/12/19 11:00 s warfarin AdvReac Intermediate EXTREME Verified 07/12/19 11:00 BLEEDING TIMES codeine AdvReac Mild VOMITING Verified 07/12/19 11:00 gemfibrozil AdvReac Mild NAUSEA Verified 07/12/19 11:00 meperidine AdvReac Mild VOMITING Verified 07/12/19 11:00 ondansetron AdvReac Mild vomiting Verified 07/12/19 11:00 ranitidine [From Zantac] AdvReac Mild dyspepsia Verified 07/12/19 11:00 cortisone AdvReac Unknown INCREASES Verified 07/12/19 11:00 SUGAR AND VOMITING? hydralazine AdvReac Unknown VOMITING Verified 07/12/19 11:00 ibuprofen AdvReac Unknown VOMITING Verified 07/12/19 11:00 AND DIARRHEA iodine AdvReac Unknown SHELLFISH Verified 07/12/19 11:00 - VOMITING shellfish derived AdvReac Unknown VOMITING Verified 07/12/19 11:00 Sulfa (Sulfonamide AdvReac Unknown VOMITING Verified 07/12/19 11:00 Antibiotics) Home Medications Home Medications Medication Instructions Recorded Confirmed Type ascorbic acid (vitamin C) [Vitamin 1 g PO QAM 06/20/18 07/12/19 History C] ergocalciferol (vitamin D2) 50,000 unit PO MONTHLY 06/20/18 07/12/19 History [Vitamin D2] multivitamin 1 tab PO QAM 06/20/18 07/12/19 History amoxicillin 2,000 mg PO UD 09/14/18 07/12/19 History pregabalin [Lyrica] 200 mg PO BID 01/18/19 07/12/19 History Basaglar KwikPen U-100 Insulin 28 unit SUBCUT BID 02/12/19 07/12/19 History furosemide [Lasix] 40 mg PO HS PRN 02/12/19 07/12/19 History nitroglycerin 0.4 mg sublingual 0.4 mg SL Q5M PRN #25 tab 02/26/19 07/12/19 History tablet insulin lispro [Humalog KwikPen 11 unit SUBCUT QDB 04/22/19 07/12/19 History Insulin] insulin lispro [Humalog KwikPen 18 unit SUBCUT QDL 04/22/19 07/12/19 History Insulin] insulin lispro [Humalog KwikPen 28 unit SUBCUT QDD 04/22/19 07/12/19 History Insulin] levothyroxine [Synthroid] 25 mcg PO QAM 06/04/19 07/12/19 History alirocumab [Praluent Pen] 75 mg SQ Q14D 07/12/19 07/12/19 History apixaban [Eliquis] 2.5 mg PO BID 07/12/19 07/12/19 History buspirone 10 mg PO TID 07/12/19 07/12/19 History clopidogrel [Plavix] 75 mg PO QAM 07/12/19 07/12/19 History furosemide [Lasix] 80 mg PO AMPM 07/12/19 07/12/19 History metoprolol tartrate [Lopressor] 50 mg PO BID 07/12/19 07/12/19 History Patient History Medical History Angina pectoris Atrial fibrillation CAD (coronary artery disease) cardiac stents x 6; most recent: AWILDA x2 (mid/distal RCA) 07/06/18* Chronic kidney disease, stage 4 (severe) CKD (chronic kidney disease) stage 3, GFR 30-59 ml/min Diabetes (Chronic) Diastolic CHF 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) Dyslipidemia HTN (hypertension) (Chronic) Hypertrophic cardiomyopathy apical variant Lung cancer Myocardial infarction X4 JANICE treated with BiPAP Peripheral neuropathy Proteinuria (Chronic) Respiratory failure 2-3L O2 Subdural hematoma Thrombocytopenia chronic; baseline platelets low 100's Surgical History History of cardioversion MULTIPLE History of lung surgery PARTIAL LEFT LOBECTOMY (2014) Hx of brain surgery 2017 S/P FALL/INJURY; SUBSEQUENT BLOOD CLOT EVACUATION S/P cardiac catheterization 7 TOTAL; CARDIAC STENTS X6 S/P hysterectomy S/P tonsillectomy Family History Father Cancer Heart disease Diabetes Mother Stroke Hypertension Grandmother (Maternal) Coronary heart disease Stroke Family/Other Multiple sclerosis Brother Coronary heart disease Grandfather (Maternal) Heart disease Grandfather (Paternal) Diabetes Aunt Muscular dystrophy Other Gallbladder disease Kidney stones Social History Preferred Language: Thai Communication Ability: Unable Textiles Printer Required: No Beliefs That Will Affect Care: None marital status: Current Living Situation: Spouse 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: Retired/Disabled Feels Safe at Home: Yes Smoking Status: Never smoker Second Hand Exposure: No ; Hx Alcohol Use: No Hx Substance Use: No Review of Systems Review of Systems: All systems reviewed & are unremarkable except as noted in HPI & below Physical Exam Physical Exam: She is alert and oriented x3. Mood affect appear normal. She answered all questions appropriately. HEENT: Sclerae are anicteric. Pupils are equal and reactive to light and accommodation. Extraocular movements were intact. Neuro: Cranial nerves intact Neck: Examination of the submandibular region did not reveal any significant lymphadenopathy. Carotids are palpable bilaterally and free of bruits on auscultation. The thyroid was not enlarged. Chest: Well-healed pacemaker implant site in the right upper pectoral area. Intravenous port in the left upper pectoral area. Lungs: She has diffuse crackles in the bases of both lung edmonds. Some expiratory wheezing. She has normal respiratory effort without use of accessory muscles. There is normal pulmonary excursion. Cardiac: The rhythm was irregular. S1 and S2 were normal. There are no murmurs on examination. The PMI was not markedly displaced on palpation. Abdomen: The abdomen was soft and nontender. Extremities: Patient has bilateral radial pulses that are equal in intensity. There is no evidence cyanosis or clubbing. Mild lower extremity edema bilaterally. Skin: There are no rashes noted on examination today. Results & Data Vital Signs (Past 12 Hours) Vital Signs Temp Pulse Resp BP Pulse Ox 07/13/19 07:34 36.6 C 94 H 20 148/76 H 92 07/13/19 04:38 37.0 C 86 18 135/66 95 07/12/19 23:23 36.4 C L 82 22 120/92 96 Laboratory Results Abnormal Lab Results 07/12/19 07/12/19 07/12/19 09:56 11:20 11:20 WBC 7.35 RBC 3.68 L Hgb 11.2 L Hct 36.5 L MCV 99.2 MCH 30.4 MCHC 30.7 L RDW Std Deviation 59.1 H RDW Coeff of Nhi 16.4 H Plt Count 124 L MPV 13.0 H Immature Gran % (Auto) 5.2 Neut % (Auto) 71.3 Lymph % (Auto) 12.1 Morris % (Auto) 9.8 Eos % (Auto) 1.1 Baso % (Auto) 0.5 Immature Gran # (Auto) 0.38 H Neut # (Auto) 5.24 Lymph # (Auto) 0.89 L Morris # (Auto) 0.72 H Eos # (Auto) 0.08 Baso # (Auto) 0.04 Absolute Nucleated RBC 0.13 H Nucleated RBC % (auto) 1.8 PT INR APTT PTT Ratio Sodium 140 Potassium 4.4 Chloride 100 Carbon Dioxide 34 H Anion Gap 6.0 BUN 77 H Creatinine 2.17 H Est Cr Clr Drug Dosing 22.0 Est GFR ( Amer) 24.5 Est GFR (Non-Af Amer) 21.1 BUN/Creatinine Ratio 35.4 H Glucose 236 H POC Glucose 234 H Estimat Average Glucose Hemoglobin A1c Calcium 9.4 Magnesium 1.9 Total Bilirubin 0.6 AST 22 ALT 23 Alkaline Phosphatase 87 POC Troponin I Troponin I NT-Pro-B Natriuret Pep 68490 H Total Protein 6.8 Albumin 2.9 L Globulin 3.9 Albumin/Globulin Ratio 0.7 L Triglycerides Cholesterol LDL Cholesterol, Calc VLDL Cholesterol, Calc HDL Cholesterol Cholesterol/HDL Ratio Procalcitonin TSH 1.650 Urine Color Urine Appearance Urine pH Ur Specific [place] Urine Protein Urine Glucose (UA) Urine Ketones Urine Blood Urine Nitrite Urine Bilirubin Urine Urobilinogen Ur Leukocyte Esterase Urine WBC (Auto) Urine RBC (Auto) U Hyaline Cast (Auto) U Epithel Cells (Auto) Urine Bacteria (Auto) 07/12/19 07/12/19 07/12/19 11:20 11:20 11:27 WBC RBC Hgb Hct MCV MCH MCHC RDW Std Deviation RDW Coeff of Nhi Plt Count MPV Immature Gran % (Auto) Neut % (Auto) Lymph % (Auto) Morris % (Auto) Eos % (Auto) Baso % (Auto) Immature Gran # (Auto) Neut # (Auto) Lymph # (Auto) Morris # (Auto) Eos # (Auto) Baso # (Auto) Absolute Nucleated RBC Nucleated RBC % (auto) PT 11.4 INR 1.1 APTT 29.9 PTT Ratio 1.1 Sodium Potassium Chloride Carbon Dioxide Anion Gap BUN Creatinine Est Cr Clr Drug Dosing Est GFR ( Amer) Est GFR (Non-Af Amer) BUN/Creatinine Ratio Glucose POC Glucose Estimat Average Glucose Hemoglobin A1c Calcium Magnesium Total Bilirubin AST ALT Alkaline Phosphatase POC Troponin I 0.27 H Troponin I NT-Pro-B Natriuret Pep Total Protein Albumin Globulin Albumin/Globulin Ratio Triglycerides Cholesterol LDL Cholesterol, Calc VLDL Cholesterol, Calc HDL Cholesterol Cholesterol/HDL Ratio Procalcitonin 0.33 TSH Urine Color Urine Appearance Urine pH Ur Specific [place] Urine Protein Urine Glucose (UA) Urine Ketones Urine Blood Urine Nitrite Urine Bilirubin Urine Urobilinogen Ur Leukocyte Esterase Urine WBC (Auto) Urine RBC (Auto) U Hyaline Cast (Auto) U Epithel Cells (Auto) Urine Bacteria (Auto) 07/12/19 07/12/19 07/12/19 12:10 14:33 16:08 WBC RBC Hgb Hct MCV MCH MCHC RDW Std Deviation RDW Coeff of Nhi Plt Count MPV Immature Gran % (Auto) Neut % (Auto) Lymph % (Auto) Morris % (Auto) Eos % (Auto) Baso % (Auto) Immature Gran # (Auto) Neut # (Auto) Lymph # (Auto) Morris # (Auto) Eos # (Auto) Baso # (Auto) Absolute Nucleated RBC Nucleated RBC % (auto) PT INR APTT PTT Ratio Sodium Potassium Chloride Carbon Dioxide Anion Gap BUN Creatinine Est Cr Clr Drug Dosing Est GFR ( Amer) Est GFR (Non-Af Amer) BUN/Creatinine Ratio Glucose POC Glucose 236 H 294 H Estimat Average Glucose Hemoglobin A1c Calcium Magnesium Total Bilirubin AST ALT Alkaline Phosphatase POC Troponin I Troponin I NT-Pro-B Natriuret Pep Total Protein Albumin Globulin Albumin/Globulin Ratio Triglycerides Cholesterol LDL Cholesterol, Calc VLDL Cholesterol, Calc HDL Cholesterol Cholesterol/HDL Ratio Procalcitonin TSH Urine Color Yellow Urine Appearance Clear Urine pH 5.0 Ur Specific [place] 1.019 Urine Protein Trace H Urine Glucose (UA) Negative Urine Ketones Negative Urine Blood Negative Urine Nitrite Negative Urine Bilirubin Negative Urine Urobilinogen Negative Ur Leukocyte Esterase Negative Urine WBC (Auto) 0 Urine RBC (Auto) 0-4 U Hyaline Cast (Auto) 5-10 H U Epithel Cells (Auto) 10-20 H Urine Bacteria (Auto) Negative 07/12/19 07/13/19 07/13/19 20:43 02:12 06:23 WBC 6.71 RBC 3.66 L Hgb 11.0 L Hct 36.2 L MCV 98.9 MCH 30.1 MCHC 30.4 L RDW Std Deviation 60.0 H RDW Coeff of Nhi 16.7 H Plt Count 135 MPV 13.2 H Immature Gran % (Auto) 4.6 Neut % (Auto) 69.3 Lymph % (Auto) 11.2 Morris % (Auto) 12.5 Eos % (Auto) 1.8 Baso % (Auto) 0.6 Immature Gran # (Auto) 0.31 H Neut # (Auto) 4.65 Lymph # (Auto) 0.75 L Morris # (Auto) 0.84 H Eos # (Auto) 0.12 Baso # (Auto) 0.04 Absolute Nucleated RBC 0.13 H Nucleated RBC % (auto) 1.9 PT INR APTT PTT Ratio Sodium Potassium Chloride Carbon Dioxide Anion Gap BUN Creatinine Est Cr Clr Drug Dosing Est GFR ( Amer) Est GFR (Non-Af Amer) BUN/Creatinine Ratio Glucose POC Glucose 209 H 225 H Estimat Average Glucose Hemoglobin A1c Calcium Magnesium Total Bilirubin AST ALT Alkaline Phosphatase POC Troponin I Troponin I NT-Pro-B Natriuret Pep Total Protein Albumin Globulin Albumin/Globulin Ratio Triglycerides Cholesterol LDL Cholesterol, Calc VLDL Cholesterol, Calc HDL Cholesterol Cholesterol/HDL Ratio Procalcitonin TSH Urine Color Urine Appearance Urine pH Ur Specific [place] Urine Protein Urine Glucose (UA) Urine Ketones Urine Blood Urine Nitrite Urine Bilirubin Urine Urobilinogen Ur Leukocyte Esterase Urine WBC (Auto) Urine RBC (Auto) U Hyaline Cast (Auto) U Epithel Cells (Auto) Urine Bacteria (Auto) 07/13/19 07/13/19 07/13/19 06:23 06:23 06:23 WBC RBC Hgb Hct MCV MCH MCHC RDW Std Deviation RDW Coeff of Nhi Plt Count MPV Immature Gran % (Auto) Neut % (Auto) Lymph % (Auto) Morris % (Auto) Eos % (Auto) Baso % (Auto) Immature Gran # (Auto) Neut # (Auto) Lymph # (Auto) Morris # (Auto) Eos # (Auto) Baso # (Auto) Absolute Nucleated RBC Nucleated RBC % (auto) PT INR APTT PTT Ratio Sodium 143 Potassium 4.2 Chloride 102 Carbon Dioxide 36 H Anion Gap 5.0 BUN 78 H Creatinine 2.17 H Est Cr Clr Drug Dosing 22.2 Est GFR ( Amer) 24.5 Est GFR (Non-Af Amer) 21.1 BUN/Creatinine Ratio 35.8 H Glucose 169 H POC Glucose Estimat Average Glucose 177 Hemoglobin A1c 7.8 H Calcium 8.6 Magnesium Total Bilirubin 0.6 AST 18 ALT 20 Alkaline Phosphatase 83 POC Troponin I Troponin I 0.463 H* NT-Pro-B Natriuret Pep 7353 H Total Protein 6.8 Albumin 2.8 L Globulin 4.0 Albumin/Globulin Ratio 0.7 L Triglycerides 175 H Cholesterol 88 LDL Cholesterol, Calc 16 VLDL Cholesterol, Calc 35 HDL Cholesterol 37 Cholesterol/HDL Ratio 2 Procalcitonin TSH Urine Color Urine Appearance Urine pH Ur Specific [place] Urine Protein Urine Glucose (UA) Urine Ketones Urine Blood Urine Nitrite Urine Bilirubin Urine Urobilinogen Ur Leukocyte Esterase Urine WBC (Auto) Urine RBC (Auto) U Hyaline Cast (Auto) U Epithel Cells (Auto) Urine Bacteria (Auto) 07/13/19 07:38 WBC RBC Hgb Hct MCV MCH MCHC RDW Std Deviation RDW Coeff of Nhi Plt Count MPV Immature Gran % (Auto) Neut % (Auto) Lymph % (Auto) [place] % (Auto) Eos % (Auto) Baso % (Auto) Immature Gran # (Auto) Neut # (Auto) Lymph # (Auto) Morris # (Auto) Eos # (Auto) Baso # (Auto) Absolute Nucleated RBC Nucleated RBC % (auto) PT INR APTT PTT Ratio Sodium Potassium Chloride Carbon Dioxide Anion Gap BUN Creatinine Est Cr Clr Drug Dosing Est GFR ( Amer) Est GFR (Non-Af Amer) BUN/Creatinine Ratio Glucose POC Glucose 200 H Estimat Average Glucose Hemoglobin A1c Calcium Magnesium Total Bilirubin AST ALT Alkaline Phosphatase POC Troponin I Troponin I NT-Pro-B Natriuret Pep Total Protein Albumin Globulin Albumin/Globulin Ratio Triglycerides Cholesterol LDL Cholesterol, Calc VLDL Cholesterol, Calc HDL Cholesterol Cholesterol/HDL Ratio Procalcitonin TSH Urine Color Urine Appearance Urine pH Ur Specific [place] Urine Protein Urine Glucose (UA) Urine Ketones Urine Blood Urine Nitrite Urine Bilirubin Urine Urobilinogen Ur Leukocyte Esterase Urine WBC (Auto) Urine RBC (Auto) U Hyaline Cast (Auto) U Epithel Cells (Auto) Urine Bacteria (Auto) Diagnostic Findings Echocardiogram obtained yesterday revealed preserved LV systolic function. Moderate left ventricular hypertrophy. No significant valvular heart disease. ECG Additional Comments: EKG obtained at time admission revealed atrial fibrillation with rapid ventricular response. Nonspecific ST and T-wave changes. Unchanged from prior. PG Care Time/CCT Total # of Minutes Spent Total Time Spent with Patient: Total time spent is greater than 50% in coordination of care (as documented) at patient's floor/unit and/or counseling patient: (1) CHF (congestive heart failure) Heart failure chronicity: unspecified Heart failure type: unspecified Qualified Code(s): I50.9 - Heart failure, unspecified
--- NOTE | 2019-07-13 10:06 | Pre Anesthesia Assessment ---
Date of Service July 13, 2019 Pre Sedation Assessment Vital Signs Temp Pulse Pulse Resp BP BP Pulse Ox 07/13/19 07:34 36.6 C 94 H 20 148/76 H 92 07/13/19 04:38 37.0 C 86 18 135/66 95 07/12/19 23:23 36.4 C L 82 22 120/92 96 07/12/19 19:05 36.8 C 74 20 152/84 H 96 07/12/19 16:09 36.8 C 109 H 20 143/60 H 96 07/12/19 13:48 120 H 20 143/76 H 96 07/12/19 13:00 111 H 20 133/86 98 07/12/19 11:33 115 H 20 146/92 H 97 Cardiovascular + irregularly irregular Respiratory + respiratory effort normal + crackles Pre-Sedation Airway Assessment Smoking Status: Never smoker Hx Sleep Apnea: No Hx Difficult Intubation: No Short, Thick Neck: No Thyromental Distance: > or= 3.5 Finger Breadths Oral Cavity: + WNL Mallampati Class: III ASA: ASA3 Procedure Planning Contraindications for Sedation: none Current Medications Reviewed: Yes Notes The planned sedation has been discussed with the patient. Informed Consent was obtained. I have identified the patient, determined the appropriateness of sedation and have assessed the patient immediately prior to the procedure. All medicine(s) and interventions are by my order.
[2019-07-13] MEDS: dilTIAZem HCL 125 MG in DEXTROSE 5% 100 ML IV SCH (10:14)
--- NOTE | 2019-07-13 10:34 | Pharmacy Report ---
Pharmacy Glycemic Short Note 2 - Date of Service July 13, 2019 - Glycemic Short BSG Results (Last 24 hours): 07/12/19 07/12/19 07/12/19 11:20 14:33 16:08 Glucose 236 H POC Glucose 236 H 294 H 07/12/19 07/13/19 07/13/19 20:43 02:12 06:23 Glucose 169 H POC Glucose 209 H 225 H 07/13/19 07:38 Glucose POC Glucose 200 H OUTPATIENT ANTIDIABETIC REGIMEN: * Basaglar 28 units BID; Humalog 06/11/28 TIDM ASSESSMENT: 07/13 * Patient received 53 units of insulin yesterday however, insulin orders were initiated after lunch, does not accurately account for full day insulin needs * 40 units of basal insulin * 13 units of prandial/correctional insulin * BSGs ranging 209-294 over the past 24hrs * Risk factors for insulin resistance are over the past 24hrs * Dextrose containing IVF - Diltiazem infusion * POD # 0 - AV node ablation scheduled for today * Anticipating insulin regimen will need increased for the next 24hrs d/t : * AM Fasting BSG = 200; Will still give a reduction of 30% from home dose this morning due to NPO status, however will increase with evening dose if BSGs continue to be elevated 07/12 79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 * Recent admission data reviewed - hypo and hyperglycemia noted. Hypoglycemia likely 2nd home Humalog regimen utilized (not CHO based). Hyperglycemia possibly attributed to significantly reduced basal insulin as compared to home * Will still reduce basal insulin compared to home dose, but not as much as previous * Will utilize CHO ratio instead of fixed-dose rapid acting insulin * Patient has not received any basal insulin today per medication history obtained. Will therefore give one-time dose now then again tonight based on BSG. PLAN FOR INPATIENT GLYCEMIC CONTROL: * Basal insulin * Lantus 20 units subq this morning (reduced for NPO status), scale for PM up to home dose, anticipate patient may be able to start diet tomorrow * Bolus insulin * NovoLog per scale ACHS or Q6hrs while NPO * Goal Range: Low 120 mg/dL - High 160 mg/dL * Correction Factor: 20 mg/dL/unit * Nutritional / Prandial insulin per carb ratio of 1 unit per 6 grams CHO consumed
[2019-07-13] MEDS ORDERED: MIDAZOLAM HCL 5 MG/ML 1 ML VIAL ONE (12:08)
[2019-07-13] MEDS ORDERED: fentaNYL citrate 100 MCG/2 ML VIAL ONE (12:09)
[2019-07-13] MEDS ORDERED: HEPARIN (PORCINE) 1000 UNIT/ML 10 ML (CATH LAB USE ONLY) ONE (12:09)
[2019-07-13] MEDS ORDERED: ISOPROTERENOL HCL 0.2 MG/ML 5 ML AMP IV ONE (12:56)
--- NOTE | 2019-07-13 13:10 | Procedure Note ---
Procedure Note Date of Service July 13, 2019 Note Procedure performed: AV node ablation Staff Stripper And Printer: Mo Manuel MD Indication: Permanent rapid atrial fibrillation with recurrent congestive heart failure. Procedure in Detail: The patient was informed of the risks benefits alternatives to the intended procedure. She understood and wished to proceed. She was taken to electrophysiology suite in a fasting state. Conscious sedation was administered per protocol the patient was monitored electrocardiographically throughout today's procedure. The right femoral area is prepped and draped in usual sterile fashion. This area was anesthetized using subcutaneous menstruation lidocaine solution. The right femoral and was subsequently access using modified Seldinger technique. A venous sheath was placed at the site over guidewire. This sheath was used tilt a passage of the ablation catheter to the right atrium under fluoroscopic guidance. The area around the AV node was subsequently mapped. Radiofrequency ablation was performed in a power limited mode until AV conduction ceased. Additional testing on isoproterenol was performed. At the conclusion of the procedure the catheter and sheath were removed. Hemostasis was achieved at the access site using manual pressure. The patient tolerated procedure well. There were no immediate complications. Equipment use: Eight Indonesian irrigated radiofrequency ablation catheter Impression: Successful creation of complete heart block with ablation of the AV node Coding
--- NOTE | 2019-07-13 13:20 | Post Anesthesia Assessment ---
Date of Service July 13, 2019 Post Sedation Assessment Vital Signs Temp Pulse Pulse Resp BP BP Pulse Ox 07/13/19 07:34 36.6 C 94 H 20 148/76 H 92 07/13/19 04:38 37.0 C 86 18 135/66 95 07/12/19 23:23 36.4 C L 82 22 120/92 96 07/12/19 19:05 36.8 C 74 20 152/84 H 96 07/12/19 16:09 36.8 C 109 H 20 143/60 H 96 07/12/19 13:48 120 H 20 143/76 H 96 Recovery Score Activity: Moves 4 extremities Respiration: Deep Breath/Cough Circulation: +/-20% PreAnes Value Consciousness: Fully Awake Oxygen Saturation: O2 needed for >90% Discharge Sedation Level of Care: Fast Track Phase II Post Sedation Plan On clinical assessment, the patient appears to have tolerated the sedation without complications. Patient is recovering as anticipated. Patient will continue to be monitored by nursing and may be discharged when sedation discharge criteria are met per below protocol. Upon Completions of procedure up to 15 minutes continue every 5 minute vital signs and the P.A.R. score; then discharge to a Phase I or Fast Track to Phase II per the following guidelines: * Discharge Patient to appropriate Phase II area if PAR is 8 or greater or return to pre- procedure baseline. The post - procedure orders will be as directed. * If PAR score is less than 8 or not return to pre-procedure baseline then patient will follow Phase I monitoring till PAR is reached for Phase II. The Phase I may be done in procedure room or may call to secure a Phase I area. * If naloxone or flumazenil are used for reversal, hold in Phase I for continued monitoring from when last reversal dose was given for a minimum of 60 minutes or longer pending the nurse and/or physician discretion of patient condition before discharge to Phase II. Please call the Sedation Physician to re-evaluate and complete post-note for discharge to Phase II area. Do NOT discharge from procedure sedation or Phase 1 until post- sedation evaluation note is complete by procedure /sedation MD Sedation Discharge Instructions to be given to the patient at discharge to home.
--- NOTE | 2019-07-13 18:55 | Hospitalist Progress Note ---
Date of Service July 13, 2019 Assessment & Plan (1) Acute metabolic encephalopathy: Presented with acute confusion, possibly related to the rapid atrial fibrillation. Now improving as per status post AV node ablation and control of heart rate (2) Atrial fibrillation with RVR: Presented with rapid atrial fibrillation, was controlled on diltiazem drip Now status post AV node ablation and is pacer dependent -No need for rate control, however cardiology plans to continue beta-suraj given history of severe CAD -Eliquis is on hold for procedure but will be restarted when safe from cardiology standpoint (3) Elevated troponin: Type 2 UT evidenced by Chest Pain reported prior to admission to the ER physician, elevated troponin, and ST changes on ECG in setting of tachycardia and acute diastolic CHF Patient troponin is elevated to 0.27 and repeat 0.46. In the setting of EKG with atrial flutter/fibrillation and ST abnormality possibly lateral subendocardial injury-cardiology consulted and does not feel that this represents acute coronary syndrome or acute myocardial infarction (4) Thrombocytopenia: Platelets were mildly low upon admission and now improved to 135 Platelets have been low for several years TSH, B12, folate acceptable in the past. Unclear etiology, perhaps low level ITP. CT abdomen/pelvis earlier this year showed normal liver and a subtle hypodensity in the spleen that was stable from previous. No splenomegaly. Does have a history of diffuse large B-cell lymphoma now in remission for several years -Follow CBC as an outpatient -Follows with heme/onc (5) Chronic kidney disease: With CKD stage IV. Secondary to diabetic nephropathy and hypertensive nephrosclerosis. Avoid nephrotoxic agents. Monitor creatinine and GFR. Creatinine around baseline at 2.17 Consult nephrology appreciated -Follow BMP in the morning (6) Anemia: Anemia of chronic disease. Continue monitoring. PRBC transfusion if hemoglobin drops below 8. (7) CHF (congestive heart failure): Acute on chronic diastolic CHF treated with IV Lasix Likely secondary to rapid atrial fibrillation Echocardiogram with dilated RV with mild decrease in RV systolic function, RVH, preserved LVEF Improved with diuresis with IV Lasix -Continue Lasix 40 mg IV every 12 hours -Follow BMP and replace electrolytes as needed -Watch renal function Strict I's and O's, low-sodium diet, daily weights (8) Sleep apnea: Patient declines CPAP while here as she has been congested with a cold lately and is not able to use it -Continue supplemental O2 (9) Diabetes 1.5, managed as type 2: Glycemic control Per pharmacy. -Continue basal bolus insulin, Accu-Cheks (10) Dyslipidemia: Continue Repatha (11) Pacemaker: Now in place and will be pacer dependent after AV clarisse ablation (12) CAD (coronary artery disease): Severe, with history of 6 drug-eluting stents, most recently having 2 placed in 06/2018 -Continue Plavix, Repatha, metoprolol to be restarted, and apixaban to be restarted (13) Hypothyroidism: TSH within normal limits -Continue home levothyroxine 25 mcg daily (14) Anxiety: Continue BuSpar (15) Respiratory failure: Phonic hypoxic respiratory failure On 2 to 3 L chronic O2 at home (16) Peripheral neuropathy: Stable -Continue pregabalin 20 mg p.o. twice daily (17) DVT prophylaxis: Eliquis on hold SCDs Disposition-remain on PCU Subjective Patient returned from her complete AV node ablation today and is much improved as per with her mental status. She is still little bit drowsy from the sedation. Denies chest pain or shortness of breath. No abdominal pain or nausea. She has eaten since she returned. I discussed the case with cardiology today. Telemetry with atrial fibrillation with rates in the 80s to 90s prior to her AV node ablation Review of Systems Review of Systems: All systems reviewed & are unremarkable except as noted in HPI & below Physical Exam Constitutional: WD/WN, vitals as above Eyes: + anicteric sclerae Neck: trachea midline, no thyromegaly Respiratory: normal respiratory effort Auscultation: + crackles (At the bases bilaterally); no wheezes Cardiovascular: RRR, no murmur, no edema Chest (Breasts): Chest: normal inspection of chest Gastrointestinal (Abdomen): normal bowel sounds, soft, nontender, no hepatosplenomegaly Musculoskeletal: Extremities: extremities normal to inspection; no cyanosis and no clubbing Skin: no rashes, warm and dry (Right groin with dressing in place, no hematoma or bleeding) Neurologic: moves all extremities and awake; no focal motor deficits Psychiatric: Orientation: alert, oriented to person, oriented to place and cooperative Genitourinary: Gautam catheter in place Lymphatic: no lymphedema Results & Data Vital Signs (Past 12 Hours) Vital Signs Temp Pulse Resp BP Pulse Ox 07/13/19 18:00 80 16 131/64 94 07/13/19 16:48 80 18 139/69 95 07/13/19 16:14 36.4 C L 80 20 156/68 H 94 07/13/19 15:51 74 17 150/79 H 95 07/13/19 15:14 79 20 156/67 H 94 07/13/19 14:45 80 16 138/69 97 07/13/19 14:30 80 18 151/68 H 95 07/13/19 14:15 80 16 142/69 H 95 07/13/19 14:00 36.6 C 80 16 137/70 100 07/13/19 13:45 79 18 153/76 H 97 07/13/19 13:40 80 18 170/74 H 93 07/13/19 13:35 80 18 161/77 H 94 07/13/19 13:30 80 18 156/87 H 95 07/13/19 13:25 80 18 151/72 H 96 07/13/19 07:34 36.6 C 94 H 20 148/76 H 92 Laboratory Results 07/13/19 07/13/19 07/13/19 Range/Units 16:04 14:07 07:38 WBC (4.8-10.8) K/uL RBC (4.2-5.4) M/uL Hgb (12.0-16.0) g/dL Hct (37-47) % MCV (80-100) fL MCH (25-34) pg MCHC (32-36) g/dL RDW Std Deviation (36.4-46.3) fL RDW Coeff of Nhi (11.5-14.5) % Plt Count (130-400) K/uL MPV (7.4-10.4) fL Immature Gran % (Auto) % Neut % (Auto) % Lymph % (Auto) % [place] % (Auto) % Eos % (Auto) % Baso % (Auto) % Immature Gran # (Auto) (0.00-0.02) K/uL Neut # (Auto) (1.4-6.5) K/uL Lymph # (Auto) (1.2-3.4) K/uL [place] # (Auto) (0.11-0.59) K/uL Eos # (Auto) (0-0.5) K/uL Baso # (Auto) (0-0.2) K/uL Absolute Nucleated RBC (0-0) K/uL Nucleated RBC % (auto) % Sodium (136-145) mmol/L Potassium (3.5-5.1) mmol/L Chloride (98-107) mmol/L Carbon Dioxide (21-32) mmol/L Anion Gap (3-11) BUN (7-18) mg/dl Creatinine (0.6-1.2) mg/dl Est Cr Clr Drug Dosing ml/min Est GFR ( Amer) Est GFR (Non-Af Amer) BUN/Creatinine Ratio (10-20) Glucose (70-99) mg/dl POC Glucose 184 H 179 H 200 H (70-99) Estimat Average Glucose mg/dl Hemoglobin A1c (4.5-5.6) % Calcium (8.5-10.1) mg/dl Total Bilirubin (0.2-1) mg/dl AST (15-37) U/L ALT (12-78) U/L Alkaline Phosphatase (45-117) U/L Troponin I (0-0.045) ng/ml NT-Pro-B Natriuret Pep (0-1800) pg/ml Total Protein (6.4-8.2) gm/dl Albumin (3.4-5.0) gm/dl Globulin (2.5-4.0) gm/dl Albumin/Globulin Ratio (0.9-2) Triglycerides (0-150) mg/dl Cholesterol (0-200) mg/dl LDL Cholesterol, Calc mg/dl VLDL Cholesterol, Calc mg/dl HDL Cholesterol mg/dl Cholesterol/HDL Ratio 07/13/19 07/13/19 07/13/19 Range/Units 06:23 06:23 06:23 WBC (4.8-10.8) K/uL RBC (4.2-5.4) M/uL Hgb (12.0-16.0) g/dL Hct (37-47) % MCV (80-100) fL MCH (25-34) pg MCHC (32-36) g/dL RDW Std Deviation (36.4-46.3) fL RDW Coeff of Nhi (11.5-14.5) % Plt Count (130-400) K/uL MPV (7.4-10.4) fL Immature Gran % (Auto) % Neut % (Auto) % Lymph % (Auto) % [place] % (Auto) % Eos % (Auto) % Baso % (Auto) % Immature Gran # (Auto) (0.00-0.02) K/uL Neut # (Auto) (1.4-6.5) K/uL Lymph # (Auto) (1.2-3.4) K/uL [place] # (Auto) (0.11-0.59) K/uL Eos # (Auto) (0-0.5) K/uL Baso # (Auto) (0-0.2) K/uL Absolute Nucleated RBC (0-0) K/uL Nucleated RBC % (auto) % Sodium 143 (136-145) mmol/L Potassium 4.2 (3.5-5.1) mmol/L Chloride 102 (98-107) mmol/L Carbon Dioxide 36 H (21-32) mmol/L Anion Gap 5.0 (3-11) BUN 78 H (7-18) mg/dl Creatinine 2.17 H (0.6-1.2) mg/dl Est Cr Clr Drug Dosing 22.2 ml/min Est GFR ( Amer) 24.5 Est GFR (Non-Af Amer) 21.1 BUN/Creatinine Ratio 35.8 H (10-20) Glucose 169 H (70-99) mg/dl POC Glucose (70-99) Estimat Average Glucose 177 mg/dl Hemoglobin A1c 7.8 H (4.5-5.6) % Calcium 8.6 (8.5-10.1) mg/dl Total Bilirubin 0.6 (0.2-1) mg/dl AST 18 (15-37) U/L ALT 20 (12-78) U/L Alkaline Phosphatase 83 (45-117) U/L Troponin I 0.463 H* (0-0.045) ng/ml NT-Pro-B Natriuret Pep 7353 H (0-1800) pg/ml Total Protein 6.8 (6.4-8.2) gm/dl Albumin 2.8 L (3.4-5.0) gm/dl Globulin 4.0 (2.5-4.0) gm/dl Albumin/Globulin Ratio 0.7 L (0.9-2) Triglycerides 175 H (0-150) mg/dl Cholesterol 88 (0-200) mg/dl LDL Cholesterol, Calc 16 mg/dl VLDL Cholesterol, Calc 35 mg/dl HDL Cholesterol 37 mg/dl Cholesterol/HDL Ratio 2 07/13/19 07/13/19 07/12/19 Range/Units 06:23 02:12 20:43 WBC 6.71 (4.8-10.8) K/uL RBC 3.66 L (4.2-5.4) M/uL Hgb 11.0 L (12.0-16.0) g/dL Hct 36.2 L (37-47) % MCV 98.9 (80-100) fL MCH 30.1 (25-34) pg MCHC 30.4 L (32-36) g/dL RDW Std Deviation 60.0 H (36.4-46.3) fL RDW Coeff of Nhi 16.7 H (11.5-14.5) % Plt Count 135 (130-400) K/uL MPV 13.2 H (7.4-10.4) fL Immature Gran % (Auto) 4.6 % Neut % (Auto) 69.3 % Lymph % (Auto) 11.2 % [place] % (Auto) 12.5 % Eos % (Auto) 1.8 % Baso % (Auto) 0.6 % Immature Gran # (Auto) 0.31 H (0.00-0.02) K/uL Neut # (Auto) 4.65 (1.4-6.5) K/uL Lymph # (Auto) 0.75 L (1.2-3.4) K/uL [place] # (Auto) 0.84 H (0.11-0.59) K/uL Eos # (Auto) 0.12 (0-0.5) K/uL Baso # (Auto) 0.04 (0-0.2) K/uL Absolute Nucleated RBC 0.13 H (0-0) K/uL Nucleated RBC % (auto) 1.9 % Sodium (136-145) mmol/L Potassium (3.5-5.1) mmol/L Chloride (98-107) mmol/L Carbon Dioxide (21-32) mmol/L Anion Gap (3-11) BUN (7-18) mg/dl Creatinine (0.6-1.2) mg/dl Est Cr Clr Drug Dosing ml/min Est GFR ( Amer) Est GFR (Non-Af Amer) BUN/Creatinine Ratio (10-20) Glucose (70-99) mg/dl POC Glucose 225 H 209 H (70-99) Estimat Average Glucose mg/dl Hemoglobin A1c (4.5-5.6) % Calcium (8.5-10.1) mg/dl Total Bilirubin (0.2-1) mg/dl AST (15-37) U/L ALT (12-78) U/L Alkaline Phosphatase (45-117) U/L Troponin I (0-0.045) ng/ml NT-Pro-B Natriuret Pep (0-1800) pg/ml Total Protein (6.4-8.2) gm/dl Albumin (3.4-5.0) gm/dl Globulin (2.5-4.0) gm/dl Albumin/Globulin Ratio (0.9-2) Triglycerides (0-150) mg/dl Cholesterol (0-200) mg/dl LDL Cholesterol, Calc mg/dl VLDL Cholesterol, Calc mg/dl HDL Cholesterol mg/dl Cholesterol/HDL Ratio PG Care Time/CCT Total # of Minutes Spent Total Time Spent with Patient: Total time spent is greater than 50% in barrel cooper rdination of care (as documented) at patient's floor/unit and/or counseling patient: (1) CAD (coronary artery disease) Associated angina: without angina Coronary Disease-Associated Artery/Lesion type: [place] artery [place] vs. transplanted heart: [place] heart Qualified Code(s): I25.10 - Atherosclerotic heart disease of [place] coronary artery without angina pectoris (2) CHF (congestive heart failure) Heart failure chronicity: unspecified Heart failure type: unspecified Qualified Code(s): I50.9 - Heart failure, unspecified (3) Anemia Anemia type: unspecified type Qualified Code(s): D64.9 - Anemia, unspecified (4) Chronic kidney disease Chronic kidney disease stage: unspecified stage Qualified Code(s): N18.9 - Chronic kidney disease, unspecified
[2019-07-14] MEDS: LEVOTHYROXINE SODIUM 25 MCG TABLET PO SCH (05:50)
[2019-07-14 06:01] LABS: Hematocrit (blood only) 37.4 % (37-47); Hemoglobin 11.3 g/dL (12.0-16.0); Mean Corpuscular Hemoglobin 30.1 pg (25-34); Mean Corpuscular Hgb Conc 30.2 g/dL (32-36); Mean Corpuscular Volume 99.7 fL (80-100); Mean Platelet Volume 12.6 fL (7.4-10.4); Nucleated RBC % (auto) 1.3 %; Platelet Count 142 K/uL (130-400); RDW Coefficient of Variation 16.6 % (11.5-14.5); RDW Standard Deviation 59.3 fL (36.4-46.3); Red Blood Count 3.75 M/uL (4.2-5.4); White Blood Count 7.88 K/uL (4.8-10.8)
[2019-07-14 06:33] LABS: Basophils # (auto) 0.02 K/uL (0-0.2); Basophils % (auto) 0.3 %; Eosinophils # (auto) 0.09 K/uL (0-0.5); Eosinophils % (auto) 1.1 %; Immature Granulocytes % (auto) 5.1 %; Lymphocytes # (auto) 0.75 K/uL (1.2-3.4); Lymphocytes % (auto) 9.5 %; Monocytes # (auto) 0.56 K/uL (0.11-0.59); Monocytes % (auto) 7.1 %; Neutrophils # (auto) 6.06 K/uL (1.4-6.5); Neutrophils % (auto) 76.9 %
[2019-07-14 06:34] LABS: Albumin Level 2.7 gm/dl (3.4-5.0); Calcium 8.8 mg/dl (8.5-10.1); Creatinine Clr Calc Pharmacy 23.3 ml/min; Est GFR (African American) 26.1; Est GFR (Non-African American) 22.5; Potassium 4.2 mmol/L (3.5-5.1)
[2019-07-14 06:37] LABS: Albumin Globulin Ratio 0.7 (0.9-2); Bilirubin,Total 0.6 mg/dl (0.2-1); Globulin 3.9 gm/dl (2.5-4.0); Total Protein 6.6 gm/dl (6.4-8.2)
[2019-07-14] MEDS: CLOPIDOGREL BISULFATE 75 MG TAB PO SCH (08:23)
[2019-07-14] MEDS: INSULIN GLARGINE SOLOSTAR 100 UNITS/ML 3 ML PEN SC SCH ×2 (08:24→20:28)
[2019-07-14] MEDS: ASCORBIC ACID 500 MG TAB PO SCH (08:24)
[2019-07-14] MEDS: MULTIVITAMIN TAB PO SCH (08:24)
[2019-07-14] MEDS: INSULIN ASPART 100 UNITS/ML 3 ML PEN SC SCH ×4 (08:25→20:27)
[2019-07-14] MEDS: FUROSEMIDE 40 MG in SYRINGE 0 ML IV SCH (08:26)
[2019-07-14] MEDS: PREGABALIN 100 MG CAP PO SCH ×2 (08:27→20:32)
[2019-07-14] MEDS ORDERED: guaiFENesin SUGAR FREE 100 MG/5 ML UDC PO PRN (10:00)
--- NOTE | 2019-07-14 10:17 | Hospitalist Progress Note ---
Date of Service July 14, 2019 Assessment & Plan (1) Acute metabolic encephalopathy: Presented with acute confusion, possibly related to the rapid atrial fibrillation. Now much improved status post AV node ablation and control of heart rate, and diuresis No evidence of infection otherwise, except does have likely of viral URI causing a COPD exacerbation (2) Atrial fibrillation with RVR: Presented with rapid atrial fibrillation, was controlled on diltiazem drip Now status post AV node ablation and is pacer dependent -No need for rate control, however cardiology recommends to continue beta- suraj given history of severe CAD -Eliquis to be restarted today at 2.5 mg p.o. twice daily-I believe she is on the lower dose due to her history of intracranial hemorrhage and also being on clopidogrel-we will defer to cardiology on if she can be increased to the 5 mg dosing which would ordinarily be the appropriate dose for her (3) Elevated troponin: Type 2 CO evidenced by Chest Pain reported prior to admission to the ER physician, elevated troponin, and ST changes on ECG in setting of tachycardia and acute diastolic CHF Patient troponin is elevated to 0.27 and repeat 0.46. In the setting of EKG with atrial flutter/fibrillation and ST abnormality possibly lateral subendocardial injury-cardiology consulted and does not feel that this represents acute coronary syndrome or acute myocardial infarction (4) COPD with acute exacerbation: COughing x 2 weeks, worse last week prior to admission add prednisone 60 mg daily, start scheduled nebs -Add guaifenesin as needed (5) Thrombocytopenia: Platelets were mildly low upon admission and now improved to 142 Platelets have been low for several years TSH, B12, folate acceptable in the past. Unclear etiology, perhaps low level ITP. CT abdomen/pelvis earlier this year showed normal liver and a subtle hypodensity in the spleen that was stable from previous. No splenomegaly. Does have a history of diffuse large B-cell lymphoma now in remission for several years -Follow CBC as an outpatient -Follows with heme/onc (6) Chronic kidney disease: With CKD stage IV. Secondary to diabetic nephropathy and hypertensive nephrosclerosis. Avoid nephrotoxic agents. Monitor creatinine and GFR. Creatinine around baseline and slightly lower than yesterday at 2.06 Consult nephrology appreciated -Switching back from IV Lasix to p.o. Lasix today Has good urine output, other electrolytes are acceptable, volume status is euvolemic -Follow BMP in the morning (7) Anemia: Anemia of chronic disease. Hemoglobin stable at 11.3 Continue monitoring. (8) CHF (congestive heart failure): Acute on chronic diastolic CHF treated with IV Lasix Likely secondary to rapid atrial fibrillation Echocardiogram with dilated RV with mild decrease in RV systolic function, RVH, preserved LVEF Improved with diuresis with IV Lasix, weight is down -Convert IV Lasix back to home Lasix 80 mg p.o. twice daily -Follow BMP and replace electrolytes as needed -Watch renal function Strict I's and O's, low-sodium diet, daily weights (9) Sleep apnea: Patient declines CPAP while here as she has been congested with a cold lately and is not able to use it -Continue supplemental O2 (10) Diabetes 1.5, managed as type 2: Glycemic control Per pharmacy. -Continue basal bolus insulin, Accu-Cheks (11) Dyslipidemia: Continue Praluent Lipid panel here is quite low (12) Pacemaker: Now in place and is pacer dependent after AV clarisse ablation (13) CAD (coronary artery disease): Severe, with history of 6 drug-eluting stents, most recently having 2 placed in 06/2018 -Continue Plavix, Praluent, will restart metoprolol and apixaban (14) Hypothyroidism: TSH within normal limits -Continue home levothyroxine 25 mcg daily (15) Anxiety: Continue BuSpar (16) Respiratory failure: Chronic hypoxic respiratory failure On 2 to 3 L chronic O2 at home (17) Peripheral neuropathy: Stable -Continue pregabalin 200 mg p.o. twice daily (18) DVT prophylaxis: Eliquis SCDs Disposition-remain on PCU -Remove Gautam catheter PT/OT evaluations to make sure stable for discharge home possibly tomorrow Subjective Patient reports feeling better today. No confusion. She is complaining of a really bad cough that has been worse than last week but has been present for 3 weeks. Nonproductive. She is out of bed to a chair but has not walked around at all since admission. She is making urine. I discussed the case with Dr. Manuel who recommended restarting her Eliquis and metoprolol. Telemetry with paced rhythm at 80. I also discussed the case with nephrology today who suggested converting her from IV to p.o. diuretics again Review of Systems Review of Systems: All systems reviewed & are unremarkable except as noted in HPI & below Physical Exam Constitutional: WD/WN, vitals as above Eyes: + anicteric sclerae ENMT: external ear and nose normal, oropharynx normal Neck: trachea midline, no thyromegaly Respiratory: normal respiratory effort Auscultation: + crackles (At the lower and middle lung [place] bilaterally, occasional faint wheeze); no diminished lung sounds, no rhonchi and no wheezes Cardiovascular: Rate/Rhythm: regular rate and regular rhythm Heart Sounds: no murmur Extremities: + edema (Trace pitting edema bilaterally) Chest (Breasts): Chest: normal inspection of chest Gastrointestinal (Abdomen): normal bowel sounds, soft, nontender, no hepatospl enomegaly Musculoskeletal: Extremities: extremities normal to inspection; no cyanosis and no clubbing Neurologic: moves all extremities and awake; no focal motor deficits Psychiatric: Orientation: alert, oriented to person, oriented to place and cooperative Genitourinary: + abnormal external appearance (Gautam catheter in place draining clear yellow urine) Lymphatic: no lymphedema Results & Data Vital Signs (Past 12 Hours) Vital Signs Temp Pulse Pulse Resp BP Pulse Ox 07/14/19 07:55 36.6 C 80 18 154/74 H 98 07/14/19 02:43 36.8 C 80 19 141/69 H 95 07/14/19 00:00 80 07/13/19 23:26 36.5 C 80 18 150/95 H 97 Laboratory Results 07/14/19 07/14/19 07/14/19 Range/Units 16:10 11:26 07:22 WBC (4.8-10.8) K/uL RBC (4.2-5.4) M/uL Hgb (12.0-16.0) g/dL Hct (37-47) % MCV (80-100) fL MCH (25-34) pg MCHC (32-36) g/dL RDW Std Deviation (36.4-46.3) fL RDW Coeff of Nhi (11.5-14.5) % Plt Count (130-400) K/uL MPV (7.4-10.4) fL Immature Gran % (Auto) % Neut % (Auto) % Lymph % (Auto) % [place] % (Auto) % Eos % (Auto) % Baso % (Auto) % Immature Gran # (Auto) (0.00-0.02) K/uL Neut # (Auto) (1.4-6.5) K/uL Lymph # (Auto) (1.2-3.4) K/uL [place] # (Auto) (0.11-0.59) K/uL Eos # (Auto) (0-0.5) K/uL Baso # (Auto) (0-0.2) K/uL Absolute Nucleated RBC (0-0) K/uL Nucleated RBC % (auto) % Sodium (136-145) mmol/L Potassium (3.5-5.1) mmol/L Chloride (98-107) mmol/L Carbon Dioxide (21-32) mmol/L Anion Gap (3-11) BUN (7-18) mg/dl Creatinine (0.6-1.2) mg/dl Est Cr Clr Drug Dosing ml/min Est GFR ( Amer) Est GFR (Non-Af Amer) BUN/Creatinine Ratio (10-20) Glucose (70-99) mg/dl POC Glucose 221 H 263 H 175 H (70-99) Calcium (8.5-10.1) mg/dl Total Bilirubin (0.2-1) mg/dl AST (15-37) U/L ALT (12-78) U/L Alkaline Phosphatase (45-117) U/L Total Protein (6.4-8.2) gm/dl Albumin (3.4-5.0) gm/dl Globulin (2.5-4.0) gm/dl Albumin/Globulin Ratio (0.9-2) 07/14/19 07/14/19 07/13/19 Range/Units 05:43 05:43 19:54 WBC 7.88 (4.8-10.8) K/uL RBC 3.75 L (4.2-5.4) M/uL Hgb 11.3 L (12.0-16.0) g/dL Hct 37.4 (37-47) % MCV 99.7 (80-100) fL MCH 30.1 (25-34) pg MCHC 30.2 L (32-36) g/dL RDW Std Deviation 59.3 H (36.4-46.3) fL RDW Coeff of Nhi 16.6 H (11.5-14.5) % Plt Count 142 (130-400) K/uL MPV 12.6 H (7.4-10.4) fL Immature Gran % (Auto) 5.1 % Neut % (Auto) 76.9 % Lymph % (Auto) 9.5 % [place] % (Auto) 7.1 % Eos % (Auto) 1.1 % Baso % (Auto) 0.3 % Immature Gran # (Auto) 0.40 H (0.00-0.02) K/uL Neut # (Auto) 6.06 (1.4-6.5) K/uL Lymph # (Auto) 0.75 L (1.2-3.4) K/uL [place] # (Auto) 0.56 (0.11-0.59) K/uL Eos # (Auto) 0.09 (0-0.5) K/uL Baso # (Auto) 0.02 (0-0.2) K/uL Absolute Nucleated RBC 0.10 H (0-0) K/uL Nucleated RBC % (auto) 1.3 % Sodium 143 (136-145) mmol/L Potassium 4.2 (3.5-5.1) mmol/L Chloride 102 (98-107) mmol/L Carbon Dioxide 37 H (21-32) mmol/L Anion Gap 4.0 (3-11) BUN 74 H (7-18) mg/dl Creatinine 2.06 H (0.6-1.2) mg/dl Est Cr Clr Drug Dosing 23.3 ml/min Est GFR ( Amer) 26.1 Est GFR (Non-Af Amer) 22.5 BUN/Creatinine Ratio 36.0 H (10-20) Glucose 168 H (70-99) mg/dl POC Glucose 202 H (70-99) Calcium 8.8 (8.5-10.1) mg/dl Total Bilirubin 0.6 (0.2-1) mg/dl AST 22 (15-37) U/L ALT 20 (12-78) U/L Alkaline Phosphatase 84 (45-117) U/L Total Protein 6.6 (6.4-8.2) gm/dl Albumin 2.7 L (3.4-5.0) gm/dl Globulin 3.9 (2.5-4.0) gm/dl Albumin/Globulin Ratio 0.7 L (0.9-2) PG Care Time/CCT Total # of Minutes Spent Total Time Spent with Patient: Total time spent is greater than 50% in coordination of care (as documented) at patient's floor/unit and/or counseling patient: (1) CAD (coronary artery disease) Associated angina: without angina Coronary Disease-Associated Artery/Lesion type: [place] artery [place] vs. transplanted heart: [place] heart Qualified Code(s): I25.10 - Atherosclerotic heart disease of [place] coronary artery without angina pectoris (2) CHF (congestive heart failure) Heart failure chronicity: unspecified Heart failure type: unspecified Qualified Code(s): I50.9 - Heart failure, unspecified (3) Anemia Anemia type: unspecified type Qualified Code(s): D64.9 - Anemia, unspecified (4) Chronic kidney disease Chronic kidney disease stage: unspecified stage Qualified Code(s): N18.9 - Chronic kidney disease, unspecified
[2019-07-14] MEDS ORDERED: APIXABAN 2.5 MG TAB PO SCH (10:45)
[2019-07-14] MEDS: ALBUT/IPRATROP 3MG/0.5MG NEB 3 ML VIAL NEB SCH ×3 (10:59→20:36)
--- NOTE | 2019-07-14 11:08 | Nephrology Progress Note ---
Date of Service July 14, 2019 Assessment & Plan (1) Chronic kidney disease, stage 4 (severe): Creatinine is stable. Electrolytes are appropriate. Urine output remains acceptable. Furosemide switched back to home dosing of 80 mg twice daily today. Continue to document strict I/O. Measure daily weights. Repeat metabolic profile tomorrow AM. Medications are appropriately dosed for kidney function. Subjective Tolerated ablation well. Paced rhythm on monitor. Maureen was emotional this morning when speaking about her . She expressed that he has been overwhelmed recently. She denies significant pain. She denies dyspnea. Notable c ough. Dyspnea improved. Review of Systems Review of Systems: All systems reviewed & are unremarkable except as noted in HPI & below Physical Exam Constitutional: + obese; no acute distress Eyes: + anicteric sclerae; no corneal abnormality ENMT: Mouth: no oral mucosal abnormality and oral mucous membranes not dry Neck: normal visual inspection and trachea midline Respiratory: normal respiratory effort Auscultation: lungs clear to auscultation bilaterally Cardiovascular: Rate/Rhythm: + tachycardic Heart Sounds: normal S1 and normal S2 Gastrointestinal (Abdomen): Percussion/Palpation: abdomen soft; abdomen nontender Musculoskeletal: Extremities: no cyanosis and no clubbing Skin: normal turgor; no lesions Neurologic: Motor/Sensory: no tremor and no asterixis Psychiatric: Orientation: alert and oriented x 3 Results & Data Vital Signs (Past 12 Hours) Vital Signs Temp Pulse Pulse Resp BP Pulse Ox 07/14/19 10:57 80 18 92 07/14/19 07:55 36.6 C 80 18 154/74 H 98 07/14/19 02:43 36.8 C 80 19 141/69 H 95 07/14/19 00:00 80 07/13/19 23:26 36.5 C 80 18 150/95 H 97 Laboratory Results Laboratory Results - last 24 hr 07/13/19 07/13/19 07/13/19 14:07 16:04 19:54 WBC RBC Hgb Hct MCV MCH MCHC RDW Std Deviation RDW Coeff of Nhi Plt Count MPV Immature Gran % (Auto) Neut % (Auto) Lymph % (Auto) [place] % (Auto) Eos % (Auto) Baso % (Auto) Immature Gran # (Auto) Neut # (Auto) Lymph # (Auto) [place] # (Auto) Eos # (Auto) Baso # (Auto) Absolute Nucleated RBC Nucleated RBC % (auto) Sodium Potassium Chloride Carbon Dioxide Anion Gap BUN Creatinine Est Cr Clr Drug Dosing Est GFR ( Amer) Est GFR (Non-Af Amer) BUN/Creatinine Ratio Glucose POC Glucose 179 H 184 H 202 H Calcium Total Bilirubin AST ALT Alkaline Phosphatase Total Protein Albumin Globulin Albumin/Globulin Ratio 07/14/19 07/14/19 07/14/19 05:43 05:43 07:22 WBC 7.88 RBC 3.75 L Hgb 11.3 L Hct 37.4 MCV 99.7 MCH 30.1 MCHC 30.2 L RDW Std Deviation 59.3 H RDW Coeff of Nhi 16.6 H Plt Count 142 MPV 12.6 H Immature Gran % (Auto) 5.1 Neut % (Auto) 76.9 Lymph % (Auto) 9.5 [place] % (Auto) 7.1 Eos % (Auto) 1.1 Baso % (Auto) 0.3 Immature Gran # (Auto) 0.40 H Neut # (Auto) 6.06 Lymph # (Auto) 0.75 L [place] # (Auto) 0.56 Eos # (Auto) 0.09 Baso # (Auto) 0.02 Absolute Nucleated RBC 0.10 H Nucleated RBC % (auto) 1.3 Sodium 143 Potassium 4.2 Chloride 102 Carbon Dioxide 37 H Anion Gap 4.0 BUN 74 H Creatinine 2.06 H Est Cr Clr Drug Dosing 23.3 Est GFR ( Amer) 26.1 Est GFR (Non-Af Amer) 22.5 BUN/Creatinine Ratio 36.0 H Glucose 168 H POC Glucose 175 H Calcium 8.8 Total Bilirubin 0.6 AST 22 ALT 20 Alkaline Phosphatase 84 Total Protein 6.6 Albumin 2.7 L Globulin 3.9 Albumin/Globulin Ratio 0.7 L PG Care Time/CCT Total # of Minutes Spent Total Time Spent with Patient: Total time spent is greater than 50% in coordination of care (as documented) at patient's floor/unit and/or counseling patient:
[2019-07-14] MEDS: predniSONE 20 MG TAB PO SCH (12:00)
[2019-07-14] MEDS: INSULIN HUMAN NPH SC SCH (12:00)
[2019-07-14] MEDS: METOPROLOL TARTRATE 50 MG TAB PO SCH ×2 (12:13→20:30)
--- NOTE | 2019-07-14 14:49 | Pharmacy Report ---
Glycemic Control Progress Note - Date of Service July 14, 2019 - Scope Glycemic Pharmacist consulted for glycemic control to write orders per [facility] inpatient glycemic control protocol. - Objective Accuchecks BSG(last 24 hours):: 07/13/19 07/13/19 07/14/19 16:04 19:54 05:43 Glucose 168 H POC Glucose 184 H 202 H 07/14/19 07/14/19 07:22 11:26 Glucose POC Glucose 175 H 263 H HbA1c:: Hemoglobin A1c 7.8 % (4.5-5.6) H 07/13/19 06:23 - Recent Pertinent Medications The patient is currently receiving: * Basal insulin: Lantus 20 units every 12 hours * Correctional Insulin: Novolog Correction per scale ACHS Goal Range: Low 120 mg/dL - High 160 mg/dL Correction Factor: 20 mg/dL/unit * Prandial insulin: Per carb ratio of 1 unit per 6 grams CHO consumed - Outpatient Anti-Diabetic Meds Basalgar 28 units BID plus Humalog 06/11/28 - Assessment & Plan ASSESSMENT: * See progress note from 07/12/19 for more background info, in short: * Pt receiving SQ basal bolus insulin regimen for hyperglycemia secondary to baseline DM (outpatient regimen on hold) and now prednisone 60 mg daily for COPD exacerbation. * Patient is currently receiving an average of 53 units of insulin per day * 40 units of basal insulin * 13 units of prandial/correctional insulin * BSGs ranging 179 - 200 mg/dl over the past 24hrs * Changes needed to insulin regimen: * AM Fasting BSG = 175 mg/dl. This is slightly above goal range for patient based on inpatient targets and co-morbidities. Therefore Basal insulin may require increase. Uncertain at this point moving forward. Will fix 40 units/day for now since patient will be starting steroids. Evening blood sugar will most likely be artificially elevated. * Post-prandial BSGs are reasonably in range for now. Will tighten for dinner onwards since prednisone started. Start NPH 0.4 units/kg with prednisone. * Total daily dose = ? units. TBD after steroids. PLAN FOR INPATIENT GLYCEMIC CONTROL: * Continuing Lantus 20 units SQ BID + starting NPH 35 units with prednisone * TIGHTENING correction factor to 15 mg/dl/unit * TIGHTENING carb ratio to 1 unit per 5 grams CHO consumed * Continuing goal range of Low 110 mg/dL - High 140 mg/dL * Please note that the plan above was derived based on current level of insulin resistance and hospital stress. These recommendations are appropriate for inpatient admission only. Plan of care upon discharge will need to be reassessed to avoid potential outpatient hypo/hyperglycemia. Thank you.
[2019-07-14] MEDS: FUROSEMIDE 80 MG TAB PO SCH (17:02)
[2019-07-14] MEDS ORDERED: PRALUENT 75 MG/ML SQ SCH (19:00)
[2019-07-14] MEDS: APIXABAN 5 MG TABLET PO SCH (20:28)
[2019-07-15] MEDS: LEVOTHYROXINE SODIUM 25 MCG TABLET PO SCH (05:15)
[2019-07-15 06:21] LABS: Calcium 8.9 mg/dl (8.5-10.1); Creatinine Clr Calc Pharmacy 23.6 ml/min; Est GFR (African American) 26.5; Est GFR (Non-African American) 22.9
[2019-07-15] MEDS: ALBUT/IPRATROP 3MG/0.5MG NEB 3 ML VIAL NEB SCH ×3 (07:12→15:24)
[2019-07-15] MEDS ORDERED: SODIUM CHLORIDE 0.65% NA SOLN 45 ML (OCEAN) ONE (08:04)
[2019-07-15] MEDS: MULTIVITAMIN TAB PO SCH (08:16)
[2019-07-15] MEDS: CLOPIDOGREL BISULFATE 75 MG TAB PO SCH (08:16)
[2019-07-15] MEDS: APIXABAN 5 MG TABLET PO SCH ×2 (08:16→21:11)
[2019-07-15] MEDS: predniSONE 20 MG TAB PO SCH (08:16)
[2019-07-15] MEDS: METOPROLOL TARTRATE 50 MG TAB PO SCH ×2 (08:17→21:11)
[2019-07-15] MEDS: ASCORBIC ACID 500 MG TAB PO SCH (08:17)
[2019-07-15] MEDS: INSULIN GLARGINE SOLOSTAR 100 UNITS/ML 3 ML PEN SC SCH ×2 (08:18→21:41)
[2019-07-15] MEDS: INSULIN HUMAN NPH SC SCH ×2 (08:18→08:50)
[2019-07-15] MEDS: INSULIN ASPART 100 UNITS/ML 3 ML PEN SC SCH ×4 (08:19→21:46)
[2019-07-15] MEDS: PREGABALIN 100 MG CAP PO SCH ×2 (08:23→21:12)
[2019-07-15] MEDS: FUROSEMIDE 80 MG TAB PO SCH ×2 (10:21→16:05)
--- NOTE | 2019-07-15 10:34 | Nephrology Progress Note ---
Date of Service July 15, 2019 Assessment & Plan (1) Chronic kidney disease, stage 4 (severe): Creatinine is stable. Electrolytes are appropriate. Urine output remains acceptable. Furosemide switched back to home dosing of 80 mg twice daily yesterday. Overall, Maureen appears to be doing well despite some persistent weakness. Medications are appropriately dosed for kidney function. Kidney function is stable. Nephrology will sign-off. Outpatient follow up can be arranged with Dr. Sherman within 2-3 weeks of discharge. Please call with any questions or concerns otherwise. Subjective No acute events overnight. Maureen was seen and evaluated with her at the bedside today. He expressed some concerns about Maureen's weakness. He specifically asked about possible rehab upon discharge. Maureen and her agree that she did very well at [facility] in [place] in the past. She refuses to consider [facility]. The patient's nurse notes that she has been out of bed and ambulating reasonably well. Maureen states that her activity tolerance has improved but she remains weak. She is concerned that she will be sitting in a chair most of the time at home. Dyspnea has improved. Review of Systems Review of Systems: All systems reviewed & are unremarkable except as noted in HPI & below Physical Exam Constitutional: + obese; no acute distress Eyes: + anicteric sclerae; no corneal abnormality ENMT: Mouth: no oral mucosal abnormality and oral mucous membranes not dry Neck: normal visual inspection and trachea midline Respiratory: normal respiratory effort Auscultation: lungs clear to auscultation bilaterally Cardiovascular: Rate/Rhythm: regular rate Heart Sounds: normal S1 and normal S2 Extremities: + edema Gastrointestinal (Abdomen): Percussion/Palpation: abdomen soft; abdomen nontender Musculoskeletal: Extremities: no cyanosis and no clubbing Skin: normal turgor; no lesions Neurologic: Motor/Sensory: no tremor and no asterixis Psychiatric: Orientation: alert and oriented x 3 Results & Data Vital Signs (Past 12 Hours) Vital Signs Temp Pulse Pulse Resp BP Pulse Ox 07/15/19 07:59 36.7 C 86 22 155/66 H 94 07/15/19 07:12 94 07/15/19 03:22 36.8 C 86 19 165/87 H 98 07/15/19 00:00 88 07/14/19 23:25 36.5 C 88 19 146/79 H 93 Laboratory Results Laboratory Results - last 24 hr 07/14/19 07/14/19 07/14/19 11:26 16:10 20:02 Sodium Potassium Chloride Carbon Dioxide Anion Gap BUN Creatinine Est Cr Clr Drug Dosing Est GFR ( Amer) Est GFR (Non-Af Amer) BUN/Creatinine Ratio Glucose POC Glucose 263 H 221 H 204 H Calcium 07/15/19 07/15/19 05:11 07:24 Sodium 144 Potassium 4.0 Chloride 101 Carbon Dioxide 38 H Anion Gap 5.0 BUN 75 H Creatinine 2.03 H Est Cr Clr Drug Dosing 23.6 Est GFR ( Amer) 26.5 Est GFR (Non-Af Amer) 22.9 BUN/Creatinine Ratio 37.0 H Glucose 160 H POC Glucose 157 H Calcium 8.9 PG Care Time/CCT Total # of Minutes Spent Total Time Spent with Patient: Total time spent is greater than 50% in coordination of care (as documented) at patient's floor/unit and/or counseling patient:
--- NOTE | 2019-07-15 12:10 | Hospitalist Progress Note ---
Date of Service July 15, 2019 Assessment & Plan (1) Acute metabolic encephalopathy: Presented with acute confusion, possibly related to the rapid atrial fibrillation. Also with baseline mild cognitive impairment Now much improved status post AV node ablation and control of heart rate, and diuresis No evidence of infection otherwise, except does have likely of viral URI causing a COPD exacerbation (2) Atrial fibrillation with RVR: Presented with rapid atrial fibrillation, was controlled on diltiazem drip Now status post AV node ablation and is pacer dependent -No need for rate control, however cardiology recommends to continue beta-blo cker given history of severe CAD -Eliquis has been restarted at 5 mg p.o. twice daily-I believe she was previously on the lower dose due to her history of intracranial hemorrhage and also being on clopidogrel-intracranial hemorrhage was 3 or 4 years ago and was posttraumatic, discussed benefits of appropriate dosing to prevent embolic stroke with patient and her and feel that this benefit outweighs the risk of recurrent intracranial hemorrhage (3) Elevated troponin: Type 2 MN evidenced by Chest Pain reported prior to admission to the ER physician, elevated troponin, and ST changes on ECG in setting of tachycardia and acute diastolic CHF Patient troponin is elevated to 0.27 and repeat 0.46. In the setting of EKG with atrial flutter/fibrillation and ST abnormality possibly lateral subendocardial injury-cardiology consulted and does not feel that this represents acute coronary syndrome or acute myocardial infarction (4) COPD with acute exacerbation: COughing x 2 weeks, worse last week prior to admission With severe cough and wheezing here, now much improved after starting steroids -Continue prednisone and decrease by 10 mg daily until gone-changed to 50 mg for tomorrow -Continue nebulizers as needed -Add guaifenesin as needed (5) Thrombocytopenia: Platelets were mildly low upon admission and now improved to 142 Platelets have been low for several years TSH, B12, folate acceptable in the past. Unclear etiology, perhaps low level ITP. CT abdomen/pelvis earlier this year showed normal liver and a subtle hypodensity in the spleen that was stable from previous. No splenomegaly. Does have a history of diffuse large B-cell lymphoma now in remission for several years -Follow CBC as an outpatient -Follows with heme/onc (6) Chronic kidney disease: With CKD stage IV. Secondary to diabetic nephropathy and hypertensive nephrosclerosis. Avoid nephrotoxic agents. Monitor creatinine and GFR. Creatinine around baseline and slightly lower than yesterday at 2.03, BUN slightly elevated at 75 status post 2 days of receiving IV Lasix Consult nephrology appreciated-they have now signed off -Continue home dose of p.o. Lasix 80 mg twice daily Has good urine output, other electrolytes are acceptable, volume status is euvolemic -Follow BMP in the morning (7) Anemia: Anemia of chronic disease. Hemoglobin stable at 11.3 Continue monitoring. (8) CHF (congestive heart failure): Acute on chronic diastolic CHF treated with IV Lasix initially Likely secondary to rapid atrial fibrillation Echocardiogram with dilated RV with mild decrease in RV systolic function, RVH, preserved LVEF Improved with diuresis with IV Lasix, weight is down -Converted IV Lasix back to home Lasix 80 mg p.o. twice daily -Follow BMP and replace electrolytes as needed -Watch renal function Strict I's and O's, low-sodium diet, daily weights (9) Sleep apnea: Patient declines CPAP while here as she has been congested with a cold lately and is not able to use it -Continue supplemental O2 (10) Diabetes 1.5, managed as type 2: Glycemic control Per pharmacy. -Continue basal bolus insulin, Accu-Cheks Hemoglobin A1c 7.8% which is improved from previous With hyperglycemia here secondary to corticosteroids -Tapering down corticosteroids (11) Dyslipidemia: Continue Praluent Lipid panel here is quite low (12) Pacemaker: Now in place and is pacer dependent after AV clarisse ablation (13) CAD (coronary artery disease): Severe, with history of 6 drug-eluting stents, most recently having 2 placed in 06/2018 -Continue Plavix, Praluent, metoprolol and apixaban (14) Hypothyroidism: TSH within normal limits -Continue home levothyroxine 25 mcg daily (15) Anxiety: Continue BuSpar (16) Respiratory failure: Chronic hypoxic respiratory failure On 2 to 3 L chronic O2 at home (17) Peripheral neuropathy: Stable -Continue pregabalin 200 mg p.o. twice daily (18) DVT prophylaxis: Eliquis SCDs Disposition-stable for transfer off telemetry to medical floor -Remove Gautam catheter PT/OT evaluations appreciated-recommendation is for SNF. Case management has made referrals to [facility] and [facility] as per patient's request Hopeful for discharge on Tuesday Subjective Patient reports still coughing but is improved. Walked with physical therapy and walked further than she has in a long time and felt good about it. Denies chest pain or shortness of breath. Denies nausea. Her is concerned because she often will not check her blood sugar or if she does and its high, she does not feel like taking her insulin at home. Patient tells me in regards to her uncontrolled blood sugars "I just do not care if it takes a few years of my life, I just want to have fun." Review of Systems Review of Systems: All systems reviewed & are unremarkable except as noted in HPI & below Physical Exam Constitutional: WD/WN, vitals as above Eyes: + anicteric sclerae Neck: trachea midline, no thyromegaly Respiratory: normal respiratory effort Auscultation: + crackles (At the lower and middle lung edmonds bilaterally, occasional faint wheeze); no diminished lung sounds, no rhonchi and no wheezes Cardiovascular: RRR, no murmur, no edema Gastrointestinal (Abdomen): normal bowel sounds, soft, nontender, no hepatosplenomegaly Musculoskeletal: Extremities: extremities normal to inspection; no cyanosis and no clubbing Neurologic: moves all extremities and awake; no focal motor deficits Psychiatric: A+Ox3, euthymic affect Orientation: cooperative Genitourinary: + abnormal external appearance (Gautam catheter in place draining clear yellow urine) Results & Data Vital Signs (Past 12 Hours) Vital Signs Temp Pulse Resp BP Pulse Ox 07/15/19 11:16 36.6 C 84 18 116/67 96 07/15/19 07:59 36.7 C 86 22 155/66 H 94 07/15/19 07:12 94 07/15/19 03:22 36.8 C 86 19 165/87 H 98 Laboratory Results 07/15/19 07/15/19 07/15/19 Range/Units 11:17 07:24 05:11 Sodium 144 (136-145) mmol/L Potassium 4.0 (3.5-5.1) mmol/L Chloride 101 (98-107) mmol/L Carbon Dioxide 38 H (21-32) mmol/L Anion Gap 5.0 (3-11) BUN 75 H (7-18) mg/dl Creatinine 2.03 H (0.6-1.2) mg/dl Est Cr Clr Drug Dosing 23.6 ml/min Est GFR ( Amer) 26.5 Est GFR (Non-Af Amer) 22.9 BUN/Creatinine Ratio 37.0 H (10-20) Glucose 160 H (70-99) mg/dl POC Glucose 156 H 157 H (70-99) Calcium 8.9 (8.5-10.1) mg/dl 07/14/19 Range/Units 20:02 Sodium (136-145) mmol/L Potassium (3.5-5.1) mmol/L Chloride (98-107) mmol/L Carbon Dioxide (21-32) mmol/L Anion Gap (3-11) BUN (7-18) mg/dl Creatinine (0.6-1.2) mg/dl Est Cr Clr Drug Dosing ml/min Est GFR ( Amer) Est GFR (Non-Af Amer) BUN/Creatinine Ratio (10-20) Glucose (70-99) mg/dl POC Glucose 204 H (70-99) Calcium (8.5-10.1) mg/dl PG Care Time/CCT Total # of Minutes Spent Total Time Spent with Patient: Total time spent is greater than 50% in coordination of care (as documented) at patient's floor/unit and/or counseling patient: (1) CAD (coronary artery disease) Associated angina: without angina Coronary Disease-Associated Artery/Lesion type: [place] artery [place] vs. transplanted heart: [place] heart Qualified Code(s): I25.10 - Atherosclerotic heart disease of [place] coronary artery without angina pectoris (2) CHF (congestive heart failure) Heart failure chronicity: unspecified Heart failure type: unspecified Qualified Code(s): I50.9 - Heart failure, unspecified (3) Anemia Anemia type: unspecified type Qualified Code(s): D64.9 - Anemia, unspecified (4) Chronic kidney disease Chronic kidney disease stage: unspecified stage Qualified Code(s): N18.9 - Chronic kidney disease, unspecified
--- NOTE | 2019-07-15 13:46 | Pharmacy Report ---
Pharmacy Glycemic Short Note 2 - Date of Service July 15, 2019 - Glycemic Short BSG Results (Last 24 hours): 07/14/19 07/14/19 07/15/19 16:10 20:02 05:11 Glucose 160 H POC Glucose 221 H 204 H 07/15/19 07/15/19 07:24 11:17 Glucose POC Glucose 157 H 156 H OUTPATIENT ANTIDIABETIC REGIMEN: * Basaglar 28 units BID; Humalog 06/11/28 TIDM * Total daily dose ~ 113 units/day ASSESSMENT: * 79yo T2DM female with adequate outpatient control per recent A1c of 7.8% on 07/13/19 * Inpatient total daily dose continues to increase daily secondary to starting prednisone on 07/14/19 * Pt is receiving Prednisone 60mg PO Daily in AM * NPH insulin is used to counteract the hyperglycemic effect of prednisone. The rationale for this approach is that the pharmacodynamics profile of NPH, with a peak effect of 4-8hrs and duration of action of 12-16hrs, mirrors the pharmacodynamics of prednisone. NPH should be dosed at the same time that prednisone is given * The dose of NPH given is dependent on the steroid dose given * For doses of prednisone 40mg/day or above NPH dose should be 0.4 units/kg * -- Pt received 0.4 units/kg yesterday with prednisone 60mg but dinner and H S BSGs still elevated. Will increase dosing and continue to titrate based on BSG trends. * NPH dosing above is given in addition to patients basal insulin needs * Typically, patients will also need rapid-acting insulin with meals PLAN FOR INPATIENT GLYCEMIC CONTROL: * Basal insulin * No Change to Lantus dosing- AM fasting BSGs in goal range * Steroid induced hyperglycemia with prednisone 60mg daily * Increase NPH to 40 units SQ daily in AM with prednisone * Bolus insulin: no change * NovoLog per scale ACHS or Q6hrs while NPO * Goal Range: Low 110 mg/dL - High 140 mg/dL * Correction Factor: 15 mg/dL/unit * Nutritional / Prandial insulin per carb ratio of 1 unit per 5 grams CHO consumed
[2019-07-15] MEDS ORDERED: ALBUT/IPRATROP 3MG/0.5MG NEB 3 ML VIAL NEB PRN (16:44)
[2019-07-16] MEDS: INSULIN ASPART 100 UNITS/ML 3 ML PEN SC SCH ×6 (00:14→20:54)
[2019-07-16] MEDS: HEPARIN 100 UNIT/ML 5ML FLUSH FLUSH PRN (05:36)
[2019-07-16] MEDS: LEVOTHYROXINE SODIUM 25 MCG TABLET PO SCH (05:51)
[2019-07-16 06:05] LABS: Hematocrit (blood only) 36.8 % (37-47); Hemoglobin 11.4 g/dL (12.0-16.0)
[2019-07-16 06:41] LABS: Albumin Level 2.6 gm/dl (3.4-5.0); BUN Creatinine Ratio 36.1 (10-20); Calcium 8.6 mg/dl (8.5-10.1); Est GFR (African American) 23.1; Est GFR (Non-African American) 19.9; Phosphorus 3.1 mg/dl (2.5-4.9)
[2019-07-16] MEDS: INSULIN GLARGINE SOLOSTAR 100 UNITS/ML 3 ML PEN SC SCH ×2 (08:53→20:50)
[2019-07-16] MEDS: MULTIVITAMIN TAB PO SCH (08:54)
[2019-07-16] MEDS: CLOPIDOGREL BISULFATE 75 MG TAB PO SCH (08:54)
[2019-07-16] MEDS: predniSONE 50 MG TAB PO SCH (08:54)
[2019-07-16] MEDS: METOPROLOL TARTRATE 50 MG TAB PO SCH ×2 (08:54→20:51)
[2019-07-16] MEDS: ASCORBIC ACID 500 MG TAB PO SCH (08:54)
[2019-07-16] MEDS: APIXABAN 5 MG TABLET PO SCH ×2 (08:54→20:49)
[2019-07-16] MEDS: FUROSEMIDE 80 MG TAB PO SCH ×2 (08:54→17:07)
[2019-07-16] MEDS: INSULIN HUMAN NPH SC SCH (08:55)
[2019-07-16] MEDS: PREGABALIN 100 MG CAP PO SCH ×2 (09:09→20:51)
--- NOTE | 2019-07-16 09:44 | Cardiology Progress Note ---
Date of Service July 16, 2019 Assessment & Plan (1) Atrial fibrillation with rapid ventricular response: Status post successful AV node ablation. Currently pacing at 80 beats per minute. She feels better and this is possibly related to a regularization of her ventricular rate. She will require continued anticoagulation. Her dose has been adjusted to 5 milligrams of apixaban twice daily according to published guidelines. Will continue her on metoprolol currently for her history of coronary disease. I will arrange for follow-up in 1 month in order to adjust her ventricular response. (2) Elevated troponin: I do not think this is likely related to an acute coronary syndrome. Curiously, she did not present with any symptoms of chest discomfort. She is known to have significant coronary disease. This is likely related to her high ventricular rates and cardiac hypertrophy. Will continue her outpatient medical regimen which includes both apixaban, Plavix, Praluent and beta blockade. (3) Pacemaker: Likely pacer dependent status post AV node ablation. Normal function. Pacing rate set at 80 with rate response. (4) CHF (congestive heart failure): She did have significant oral intake yesterday. Now on a fluid restriction. Overall volume status has improved. Renal function stable. On oral diuretics currently. Subjective This morning the patient claims to be feeling better. She states that her strength is improving. She feels that her breathing is improved. She made a statement suggesting that she has not felt this well in many years. Her was present at the bedside today and stated that she still was confused last night and actually called him regarding legal proceedings. Review of Systems Review of Systems: Per HPI Physical Exam Physical Exam: She is alert and oriented x3. Mood affect appear normal. She answered all questions appropriately. HEENT: Sclerae are anicteric. Pupils are equal and reactive to light and accommodation. Extraocular movements were intact. Neuro: Cranial nerves intact Neck: Examination of the submandibular region did not reveal any significant l ymphadenopathy. Carotids are palpable bilaterally and free of bruits on auscultation. There was no evidence of jugular venous distention. The thyroid was not enlarged. Lungs: Lungs are clear to auscultation bilaterally. There are no rales wheezes or rhonchi. She has normal respiratory effort without use of accessory muscles. There is normal pulmonary excursion. Cardiac: The rhythm was regular. S1 and S2 were normal. There are no murmurs on examination. The PMI was not markedly displaced on palpation. Abdomen: The abdomen was soft and nontender. Extremities: Patient has bilateral radial pulses that are equal in intensity. There is no evidence cyanosis or clubbing. Skin: There are no rashes noted on examination today. Results & Data Vital Signs (Past 12 Hours) Vital Signs Temp Pulse Resp BP BP Pulse Ox 07/16/19 07:34 36.7 C 80 20 148/85 H 92 07/15/19 23:00 36.6 C 83 18 148/76 H 92 Laboratory Results Abnormal Lab Results 07/15/19 07/15/19 07/15/19 11:17 17:20 21:38 Hgb Hct Sodium Potassium Chloride Carbon Dioxide Anion Gap BUN Creatinine Est Cr Clr Drug Dosing Est GFR ( Amer) Est GFR (Non-Af Amer) BUN/Creatinine Ratio Glucose POC Glucose 156 H 172 H 341 H* Calcium Phosphorus Albumin 07/15/19 07/16/19 07/16/19 21:43 00:07 03:54 Hgb Hct Sodium Potassium Chloride Carbon Dioxide Anion Gap BUN Creatinine Est Cr Clr Drug Dosing Est GFR ( Amer) Est GFR (Non-Af Amer) BUN/Creatinine Ratio Glucose POC Glucose 326 H* 279 H 217 H Calcium Phosphorus Albumin 07/16/19 07/16/19 07/16/19 05:39 05:39 08:50 Hgb 11.4 L Hct 36.8 L Sodium 145 Potassium 4.0 Chloride 100 Carbon Dioxide 39 H Anion Gap 5.0 BUN 82 H Creatinine 2.28 H Est Cr Clr Drug Dosing 21.0 Est GFR ( Amer) 23.1 Est GFR (Non-Af Amer) 19.9 BUN/Creatinine Ratio 36.1 H Glucose 162 H POC Glucose 159 H Calcium 8.6 Phosphorus 3.1 Albumin 2.6 L PG Care Time/CCT Total # of Minutes Spent Total Time Spent with Patient: Total time spent is greater than 50% in coordination of care (as documented) at patient's floor/unit and/or counseling patient: (1) CHF (congestive heart failure) Heart failure chronicity: unspecified Heart failure type: unspecified Qualified Code(s): I50.9 - Heart failure, unspecified
--- NOTE | 2019-07-16 14:05 | Hospitalist Progress Note ---
Date of Service July 16, 2019 Assessment & Plan (1) COPD with acute exacerbation: COughing x 2 weeks, worse last week prior to admission. - Continue nebulizers as needed - Add guaifenesin as needed - Continue prednisone and decrease by 10 mg daily - 40 mg for tomorrow (2) Acute metabolic encephalopathy: Presented with acute confusion, possibly related to the rapid atrial fibrillation. Also with baseline mild cognitive impairment. Now much improved status post AV node ablation and control of heart rate, and diuresis. - No evidence of infection otherwise, except does have likely of viral URI causing a COPD exacerbation. (3) Atrial fibrillation with RVR: Presented with rapid atrial fibrillation. Now status post AV node ablation and is pacer dependent. - Eliquis has been restarted at 5 mg p.o. twice daily - Continue beta-suraj (4) Elevated troponin: Type 2 [place] evidenced by chest Pain reported prior to admission to the ER physician, elevated troponin, and ST changes on ECG in setting of tachycardia and acute diastolic CHF. Patient troponin is elevated to 0.27 and repeat 0.46. In the setting of EKG with atrial flutter/fibrillation and ST abnormality possibly lateral subendocardial injury - cardiology consulted and does not feel that this represents acute coronary syndrome or acute myocardial infarction. (5) Thrombocytopenia: Platelets were mildly low upon admission and now improved to 142. Platelets have been low for several years. TSH, B12, folate acceptable in the past. - Unclear etiology, perhaps low level ITP. CT abdomen/pelvis earlier this year showed normal liver and a subtle hypodensity in the spleen that was stable from previous. No splenomegaly. - Outpatient heme-onc follow up (6) Chronic kidney disease: With CKD stage IV. Secondary to diabetic nephropathy and hypertensive nephrosclerosis. - Baseline appears to be ~2.0 - 2.3; at baseline. (7) Anemia: Anemia of chronic disease. Hemoglobin stable at 11.3. (8) CHF (congestive heart failure): Acute on chronic diastolic CHF treated with IV Lasix initially. Likely secondary to rapid atrial fibrillation. Echocardiogram with dilated RV with mild decrease in RV systolic function, RVH, preserved LVEF. - Continue home Lasix 80 mg p.o. twice daily (9) Sleep apnea: Patient declines CPAP while here as she has been congested with a cold lately and is not able to use it. - Continue supplemental O2 (10) Diabetes 1.5, managed as type 2: Hemoglobin A1c 7.8% which is improved from previous. - Glycemic control per pharmacy. - Continue basal bolus insulin, Accu-Cheks - Continue pregabalin 200 mg p.o. twice daily for neuropathy (11) Dyslipidemia: Lipid panel here shows LDL of 16 & HDL of 37. - Continue Praluent (PCSK-9 inhibitor) (12) Pacemaker: Now in place and is pacer dependent after AV clarisse ablation. (13) CAD (coronary artery disease): Severe, with history of 6 drug-eluting stents, most recently having 2 placed in 06/2018. - Continue Plavix, Praluent, metoprolol, and apixaban (14) Hypothyroidism: TSH within normal limits. - Continue home levothyroxine 25 mcg daily (15) Anxiety: Continue BuSpar (16) Respiratory failure: Chronic hypoxic respiratory failure. - On 2 to 3 L chronic O2 at home. - At baseline. (17) DVT prophylaxis: Eliquis Subjective She feels well overall. She does not have any shortness of breath at this time. No major concerns. Reports no fevers/chills, chest pain, shortness of breath, abdominal pain, nausea, or vomiting. Physical Exam Constitutional: WD/WN, vitals as above Eyes: EOM intact bilaterally; no conjunctival abnormality ENMT: external ear and nose normal, oropharynx normal Neck: trachea midline, no thyromegaly normal visual inspection Respiratory: normal respiratory effort, lungs clear to auscultation no respiratory distress Cardiovascular: RRR, no murmur, no edema Gastrointestinal (Abdomen): Inspection/Auscultation: abdomen normal to inspection; abdomen not distended Musculoskeletal: no cyanosis or clubbing, extremities motor strength 5/5 Skin: no rashes, warm and dry Neurologic: moves all extremities and awake Psychiatric: Orientation: alert, oriented to person and cooperative Results & Data Vital Signs (Past 12 Hours) Vital Signs Temp Pulse Resp BP Pulse Ox 07/16/19 07:34 36.7 C 80 20 148/85 H 92 PG Care Time/CCT Total # of Minutes Spent Total Time Spent with Patient: Total time spent is greater than 50% in coordination of care (as documented) at patient's floor/unit and/or counseling patient: (1) Chronic kidney disease Chronic kidney disease stage: unspecified stage Qualified Code(s): N18.9 - Chronic kidney disease, unspecified (2) Anemia Anemia type: unspecified type Qualified Code(s): D64.9 - Anemia, unspecified (3) CHF (congestive heart failure) Heart failure chronicity: unspecified Heart failure type: unspecified Qualified Code(s): I50.9 - Heart failure, unspecified (4) CAD (coronary artery disease) Coronary Disease-Associated Artery/Lesion type: [place] artery [place] vs. transplanted heart: [place] heart Associated angina: without angina Qualified Code(s): I25.10 - Atherosclerotic heart disease of [place] coronary artery without angina pectoris
--- NOTE | 2019-07-16 14:28 | Pharmacy Report ---
Pharmacy Glycemic Short Note 2 - Date of Service July 16, 2019 - Glycemic Short BSG Results (Last 24 hours): 07/15/19 07/15/19 07/15/19 17:20 21:38 21:43 Glucose POC Glucose 172 H 341 H* 326 H* 07/16/19 07/16/19 07/16/19 00:07 03:54 05:39 Glucose 162 H POC Glucose 279 H 217 H 07/16/19 07/16/19 08:50 11:57 Glucose POC Glucose 159 H 87 OUTPATIENT ANTIDIABETIC REGIMEN: * Basaglar 28 units BID; Humalog 06/11/28 TIDM * Total daily dose ~ 113 units/day ASSESSMENT: 07/16 * Patient received total of 143 units of insulin yesterday, of which 80 were basal to help cover steroids * Fasting this AM 159 mg/dL - did receive overnight checks as BSGs increased * Prednisone decreased by 10 mg to 50 mg today and plan is to continue to decrease daily by 10 mg * Will continue same Lantus/NPH dosing at this time * Had tighten CR with breakfast, patient only had small meal, lunch trended down to 87 mg/dL - provided looser CR for lunch and then changed back to CR of 5 which patient had been on yesterday. Anticipate BSGs to trend up throughout the day with steroids continued 07/15 * 79yo T2DM female with adequate outpatient control per recent A1c of 7.8% on 07/13/19 * Inpatient total daily dose continues to increase daily secondary to starting prednisone on 07/14/19 * Pt is receiving Prednisone 60mg PO Daily in AM * NPH insulin is used to counteract the hyperglycemic effect of prednisone. The rationale for this approach is that the pharmacodynamics profile of NPH, with a peak effect of 4-8hrs and duration of action of 12-16hrs, mirrors the pharmacodynamics of prednisone. NPH should be dosed at the same time that prednisone is given * The dose of NPH given is dependent on the steroid dose given * For doses of prednisone 40mg/day or above NPH dose should be 0.4 units/kg * -- Pt received 0.4 units/kg yesterday with prednisone 60mg but dinner and HS BSGs still elevated. Will increase dosing and continue to titrate based on BSG trends. * NPH dosing above is given in addition to patients basal insulin needs * Typically, patients will also need rapid-acting insulin with meals PLAN FOR INPATIENT GLYCEMIC CONTROL: * Basal insulin * No Change to Lantus dosing- AM fasting BSGs in goal range * NPH - no change / continue 40 units today * Bolus insulin: no change * NovoLog per scale ACHS or Q6hrs while NPO * Goal Range: Low 110 mg/dL - High 140 mg/dL * Correction Factor: 15 mg/dL/unit * Nutritional / Prandial insulin per carb ratio of 1 unit per 5 grams CHO consumed
[2019-07-17] MEDS: INSULIN ASPART 100 UNITS/ML 3 ML PEN SC SCH ×4 (00:20→12:03)
[2019-07-17] MEDS: LEVOTHYROXINE SODIUM 25 MCG TABLET PO SCH (06:18)
[2019-07-17] MEDS: HEPARIN 100 UNIT/ML 5ML FLUSH FLUSH PRN (08:30)
[2019-07-17] MEDS ORDERED: INSULIN HUMAN NPH SC SCH (08:30)
[2019-07-17] MEDS: INSULIN GLARGINE SOLOSTAR 100 UNITS/ML 3 ML PEN SC SCH (08:56)
[2019-07-17] MEDS: APIXABAN 5 MG TABLET PO SCH (08:58)
[2019-07-17] MEDS: MULTIVITAMIN TAB PO SCH (08:59)
[2019-07-17] MEDS: METOPROLOL TARTRATE 50 MG TAB PO SCH (08:59)
[2019-07-17] MEDS: ASCORBIC ACID 500 MG TAB PO SCH (09:00)
[2019-07-17] MEDS: CLOPIDOGREL BISULFATE 75 MG TAB PO SCH (09:00)
[2019-07-17] MEDS: PREGABALIN 100 MG CAP PO SCH (09:09)
[2019-07-17] MEDS: predniSONE 50 MG TAB PO SCH (10:12)
[2019-07-17] MEDS: FUROSEMIDE 80 MG TAB PO SCH (10:12)
--- NOTE | 2019-07-17 13:35 | Pharmacy Report ---
Pharmacy Glycemic Short Note 2 - Date of Service July 17, 2019 - Glycemic Short BSG Results (Last 24 hours): 07/16/19 07/16/19 07/17/19 16:28 20:33 00:04 POC Glucose 212 H 279 H 264 H 07/17/19 07/17/19 07/17/19 03:51 07:47 11:47 POC Glucose 167 H 87 128 H OUTPATIENT ANTIDIABETIC REGIMEN: * Basaglar 28 units BID; Humalog 06/11/28 TIDM * Total daily dose ~ 113 units/day ASSESSMENT: 07/17 * Patient received total of 136 units of insulin yesterday, of which 80 were basal to cover steroids * Fasting BSG 87 mg/dL - will decrease to NPH 35 units daily and continue same Lantus 20 units BID * No change to CF/CR - continue same 07/16 * Patient received total of 143 units of insulin yesterday, of which 80 were basal to help cover steroids * Fasting this AM 159 mg/dL - did receive overnight checks as BSGs increased * Prednisone decreased by 10 mg to 50 mg today and plan is to continue to decrease daily by 10 mg * Will continue same Lantus/NPH dosing at this time * Had tighten CR with breakfast, patient only had small meal, lunch trended down to 87 mg/dL - provided looser CR for lunch and then changed back to CR of 5 which patient had been on yesterday. Anticipate BSGs to trend up throughout the day with steroids continued 07/15 * 79yo T2DM female with adequate outpatient control per recent A1c of 7.8% on 07/13/19 * Inpatient total daily dose continues to increase daily secondary to starting prednisone on 07/14/19 * Pt is receiving Prednisone 60mg PO Daily in AM * NPH insulin is used to counteract the hyperglycemic effect of prednisone. The rationale for this approach is that the pharmacodynamics profile of NPH, with a peak effect of 4-8hrs and duration of action of 12-16hrs, mirrors the pharmacodynamics of prednisone. NPH should be dosed at the same time that prednisone is given * The dose of NPH given is dependent on the steroid dose given * For doses of prednisone 40mg/day or above NPH dose should be 0.4 units/kg * -- Pt received 0.4 units/kg yesterday with prednisone 60mg but dinner and HS BSGs still elevated. Will increase dosing and continue to titrate based on BSG trends. * NPH dosing above is given in addition to patients basal insulin needs * Typically, patients will also need rapid-acting insulin with meals PLAN FOR INPATIENT GLYCEMIC CONTROL: * Basal insulin * No Change to Lantus dosing- AM fasting BSGs in goal range * NPH - 35 units daily with steroids * Bolus insulin: no change * NovoLog per scale ACHS or Q6hrs while NPO * Goal Range: Low 110 mg/dL - High 140 mg/dL * Correction Factor: 15 mg/dL/unit * Nutritional / Prandial insulin per carb ratio of 1 unit per 5 grams CHO consumed DISCHARGE RECOMMENDATIONS: * Spoke with provider and likely discharge today. Will remain on steroids x2-3 days then d/c. Recommended patient take 20 units of basaglar tonight (since got a dose of NPH this AM) . Feel that it is reasonable for her to start her home Basaglar dosing tomorrow morning. Daily units of insulin at home similar to what she is receiving currently on steroids therefore do not feel that dosage adjustment in insulin warranted on discharge
--- NOTE | 2019-07-17 16:01 | Discharge Summary ---
Date of Service July 17, 2019 Admission HPI Per Admitting Provider Patient is a 79 years old female with past medical history of diabetes mellitus type 2, hyperlipidemia, atrial fibrillation/flutter with RVR anticoagulation with apixaban, sleep apnea, diastolic congestive heart failure, chronic kidney disease stage IV, paroxysmal atrial tachycardia with a pacemaker-[employer] as you are XT DR MORFIN dual-chamber pacemaker placed 06/05/2019, hypertension , patient had stent placed for residual nonocclusive disease 1 months ago, apical variant hypertrophic cardiomyopathy who was brought by EMS per request of her because patient since this morning was not behaving properly, she was confused and she was complaining of chest pain. She was yesterday seen by cardiology in [facility] their device clinic for 1 months follow-up. Patient heart rate was in atrial tachycardia with the rate of 120 bpm, and they attempted to actually burst pace her out of this rhythm but it was not successful. Her atrial therapies were turned on. Her pacemaker and interrogation is functioning appropriately with appropriate pacing and sensing characteristics. They discussed AV clarisse ablation with Dr. Manuel in the past. Patient had her pacemaker implanted but she also needs to have AV node ablated. Patient was advised to follow-up in 3 months. Patient is poor historian and it is hard to review systems with her. Patient is at the bedside and he states that patient is not acting herself. Patient was able to confirm that she denies fever, chills, abdominal pain, frequency, urgency. 3 years ago patient had hemorrhage to her brain and she was treated in [place]. Labs are reviewed: WBC 7.35, hemoglobin 11.2, hematocrit 36.5, platelets 124, PT 11.4, INR 1.1, APTT 29.9, sodium 140, potassium 4.4, BUN 77, creatinine 2.17, GFR 21.1, magnesium 1.9, AST 22 ALT 23 troponin 0 0.27, BNP 10,394, TSH 1.650. Urine trace proteins, 5-10 hyaline casts and 10-20 epithelial cells otherwise negative. Chest x-ray shows cardiomegaly with pulmonary vascular congestion, left basilar and midlung opacities suggesting probably atelectasis. Superimposed pneumonitis would be difficult to exclude. Possibly trace effusion. CT of the head shows no significant change compared to the prior study. No acute intracranial abnormality. Decision was made to admit patient to PCU on telemetry for further evaluation and treatment of acute exacerbation of acute diastolic congestive heart failure, to rule out possible acute coronary syndrome. Principal Diagnosis Afib with RVR s/p AV node ablation Discharge Exam Constitutional WD/WN, vitals as above Eyes EOM intact bilaterally; no conjunctival abnormality ENMT external ear and nose normal, oropharynx normal Neck trachea midline, no thyromegaly normal visual inspection Respiratory normal respiratory effort, lungs clear to auscultation no respiratory distress Cardiovascular RRR, no murmur, no edema Gastrointestinal (Abdomen) Inspection/Auscultation: abdomen normal to inspection; abdomen not distended Musculoskeletal no cyanosis or clubbing, extremities motor strength 5/5 Skin no rashes, warm and dry Neurologic moves all extremities and awake Psychiatric Orientation: alert, oriented to person and cooperative Discharge Data Allergies Allergy/AdvReac Type Severity Reaction Status Date / Time eptifibatide Allergy Severe ANAPHYLAXIS Verified 07/12/19 11:00 hornet venom Allergy Severe WASP VENOM Verified 07/12/19 11:00 PROTEIN-ANAPHYLAXIS levofloxacin [From Levaquin] Allergy Severe Hives Verified 07/12/19 11:00 atorvastatin Allergy Unknown MUSCLE PAIN Verified 07/12/19 11:00 ezetimibe Allergy Unknown MUSCLE PAIN Verified 07/12/19 11:00 simvastatin Allergy Unknown MUSCLE PAIN Verified 07/12/19 11:00 amlodipine AdvReac Severe Nausea Verified 07/12/19 11:00 azithromycin AdvReac Intermediate Palpitation Verified 07/12/19 11:00 s warfarin AdvReac Intermediate EXTREME Verified 07/12/19 11:00 BLEEDING TIMES codeine AdvReac Mild VOMITING Verified 07/12/19 11:00 gemfibrozil AdvReac Mild NAUSEA Verified 07/12/19 11:00 meperidine AdvReac Mild VOMITING Verified 07/12/19 11:00 ondansetron AdvReac Mild vomiting Verified 07/12/19 11:00 ranitidine [From Zantac] AdvReac Mild dyspepsia Verified 07/12/19 11:00 cortisone AdvReac Unknown INCREASES Verified 07/12/19 11:00 SUGAR AND VOMITING? hydralazine AdvReac Unknown VOMITING Verified 07/12/19 11:00 ibuprofen AdvReac Unknown VOMITING Verified 07/12/19 11:00 AND DIARRHEA iodine AdvReac Unknown SHELLFISH Verified 07/12/19 11:00 - VOMITING shellfish derived AdvReac Unknown VOMITING Verified 07/12/19 11:00 Sulfa (Sulfonamide AdvReac Unknown VOMITING Verified 07/12/19 11:00 Antibiotics) Consultations 07/12/19 11:55 ED Decision to Admit Stat 07/12/19 14:18 Consult Cardiology Routine Consult Nephrology Routine 07/15/19 11:12 Consult Case Management - Discharge Planning Routine Procedures Performed Operation Date: 07/13/19 12:00 Actual Procedures p AV Node Ablation - Gopi Manuel MD s Interrogation of Pacer - Gopi Manuel MD Ordered Studies 07/12/19 10:35 CT head/brain wo con Stat 07/13/19 12:00 EP Lab Images for PACS ONCE Hospital Course (1) Atrial fibrillation with RVR: Presented with rapid atrial fibrillation. Now status post AV node ablation with Dr. Manuel on 07/13/2019 and is pacer dependent. - Eliquis has been restarted at 5 mg p.o. twice daily - Continue metoprolol 50mg PO BID for CAD (2) COPD with acute exacerbation: COughing x 2 weeks, worse last week prior to admission. - Continue nebulizers as needed - Discharged on a short prednisone burst. By discharge, breathing was at baseline. (3) Diabetes 1.5, managed as type 2: Hemoglobin A1c 7.8% which is improved from previous. - Insulin was adjusted inpatient, but given her ok A1c, her regimen was continued unchanged on discharge after discussed with the glycemic pharmacist. - Continue pregabalin 200 mg p.o. twice daily for neuropathy (4) Acute metabolic encephalopathy: Presented with acute confusion, possibly related to the rapid atrial fibrillation. Also with baseline mild cognitive impairment. Now much improved status post AV node ablation and control of heart rate, and diuresis. - and were quite antagonistic during her hospitalization. He felt she did not take of herself. She repeatedly discussed how she had "wasted" 60 years of her life with her . They frequently got into arguments, and he would leave the hospital in anger. They both report that this began to escalate about 6 weeks ago when she started Praluent injections. I do not see any psychiatric side effects on its UpToDate page. I am not sure what to make of this issue, and will have to defer to outpatient provider/PCP. (5) Elevated troponin: Type 2 [place] evidenced by chest Pain reported prior to admission to the ER physician, elevated troponin, and ST changes on ECG in setting of tachycardia and acute diastolic CHF. Patient troponin is elevated to 0.27 and repeat 0.46. In the setting of EKG with atrial flutter/fibrillation and ST abnormality possibly lateral subendocardial injury - cardiology consulted and does not feel that this represents acute coronary syndrome or acute myocardial infarction. (6) Thrombocytopenia: Platelets were mildly low upon admission and now improved to 142. Platelets have been low for several years. TSH, B12, folate acceptable in the past. - Unclear etiology, perhaps low level ITP. CT abdomen/pelvis earlier this year showed normal liver and a subtle hypodensity in the spleen that was stable from previous. No splenomegaly. - Outpatient heme-onc follow up (7) Chronic kidney disease: With CKD stage IV. Secondary to diabetic nephropathy and hypertensive nephrosclerosis. - Baseline appears to be ~2.0 - 2.3; at baseline. (8) Anemia: Anemia of chronic disease. Hemoglobin stable at 11.3. (9) CHF (congestive heart failure): Acute on chronic diastolic CHF treated with IV Lasix initially. Likely secondary to rapid atrial fibrillation. Echocardiogram with dilated RV with mild decrease in RV systolic function, RVH, preserved LVEF. - Continue home Lasix 80 mg p.o. twice daily with 40mg PRN - Euvolemic on discharge (10) Sleep apnea: Patient declines CPAP while here as she has been congested with a cold lately and is not able to use it. - Continue supplemental O2 (11) Dyslipidemia: Lipid panel here shows LDL of 16 & HDL of 37. - Continue Praluent (PCSK-9 inhibitor) (12) Pacemaker: Now in place and is pacer dependent after AV clarisse ablation. (13) CAD (coronary artery disease): Severe, with history of 6 drug-eluting stents, most recently having 2 placed in 06/2018. - Continue Plavix, Praluent, metoprolol, and apixaban (14) Hypothyroidism: TSH within normal limits. - Continue home levothyroxine 25 mcg daily (15) Anxiety: Continue BuSpar (16) Respiratory failure: Chronic hypoxic respiratory failure. - On 2 to 3 L chronic O2 at home. - At baseline. (17) DVT prophylaxis: Eliquis Total Time Total Time Spent Total Time Spent (In Minutes): 45 Discharge Plan Discharge Items Patient Disposition: Home - Home Health Services Reason For Visit: CHEST PAIN, ALTERED MENTAL STATUS Discharge Diagnosis: Altered mental status, fast heart rate Activity: Resume your previous activity Non-emergency contact: Primary Care Provider and [employer] Supervisor Call non-emergency contact if: you have any medication questions, your symptoms worsen and your temperature is above 101 Follow-up/Referrals: Gopi Manuel MD [Physician] - 08/07/19 1:45 pm (Please, follow up with Dr. Manuel on TuesdayAugust 07 at 1:45 pm. *The office is located in [address] of [facility], next to this hospital. *If you need to change this appointment, call the office at [phone].) Lizet Jeter DO [Primary Care Provider] - 07/23/19 10:10 am (Please, follow up at Dr. Lizet Jeter's office with her associate, Fidelia CORTEZ, on TuesdayJuly 23 at 10:10 am. *If you need to change this appointment, call their office at [phone].) Diet: Carb Consistent or DM2 and Heart Healthy Addtl Attending Provider Instructions: You were admitted to the hospital with problems related to your fast heart rate. We did a procedure which help keep your heart at a steady rate, and now you are feeling much better. Please follow up with Dr. Manuel in the office next month. We are giving you a steroid burst for 3 more days, then you can stop your steroids. This will help your breathing return to normal. For your diabetes, we did not adjust your insulin levels here in the hospital. Your sugars may run a bit high while you are on the steroids, but should go back to normal after your steroids are done. Pending Studies at Discharge: No Stand-Alone Forms: [employer], Smoking Cessation Medications and DC Order Prescriptions: New ipratropium-albuterol 0.5 mg-3 mg(2.5 mg base)/3 mL Solution For Nebulization 3 ml NEB QIDR PRN (Reason: shortness of breath or wheezing) Qty: 90 RF: 0 Eliquis 5 mg Tablet 5 mg PO BID Qty: 60 RF: 0 prednisone 20 mg tablet 40 mg PO DAILY 3 Days Qty: 6 RF: 0 Continued nitroglycerin 0.4 mg tablet, sublingual 0.4 mg SL Q5M PRN (Reason: Chest Pain) Qty: 25 RF: 0 multivitamin Tablet 1 tab PO QAM RF: 0 ascorbic acid (vitamin C) [Vitamin C] 1,000 mg Tablet 1 g PO QAM RF: 0 ergocalciferol (vitamin D2) [Vitamin D2] 50,000 unit Capsule 50,000 unit PO MONTHLY RF: 0 pregabalin [Lyrica] 200 mg capsule 200 mg PO BID RF: 0 levothyroxine [Synthroid] 25 mcg tablet 25 mcg PO QAM RF: 0 furosemide [Lasix] 40 mg tablet 40 mg PO HS PRN (Reason: Edema) RF: 0 insulin lispro [Humalog KwikPen Insulin] 100 unit/mL insulin pen 18 unit subcut QDL RF: 0 insulin lispro [Humalog KwikPen Insulin] 100 unit/mL insulin pen 11 unit subcut QDB RF: 0 insulin lispro [Humalog KwikPen Insulin] 100 unit/mL insulin pen 28 unit subcut QDD RF: 0 buspirone 10 mg tablet 10 mg PO TID RF: 0 clopidogrel [Plavix] 75 mg tablet 75 mg PO QAM RF: 0 furosemide [Lasix] 80 mg tablet 80 mg PO AMPM RF: 0 metoprolol tartrate [Lopressor] 50 mg tablet 50 mg PO BID RF: 0 Praluent Pen 75 mg/mL pen injector 75 mg SQ Q14D RF: 0 Basaglar KwikPen U-100 Insulin 100 unit/mL (3 mL) insulin pen 28 unit subcut BID Qty: 0 RF: 0 Discontinued amoxicillin 500 mg Tablet 2,000 mg PO UD RF: 0 Eliquis 2.5 mg tablet 2.5 mg PO BID RF: 0 Discharge Orders: Discharge Order (Routine); Ordered 07/17/19 Ordered By: Raymundo Lucio Admission Data Admit Date/Time: 07/12/19 13:12 Attending Provider: Raymundo Lucio Admit Provider: Lolis Fierro Primary Care Provider: Lizet Jeter Other Providers: Gregory Watson ; Arun Sauer ; [place] ; Raymundo Lucio ; [facility] Other Interventions: Discharge Summary Assessment (RN) Last Done: 07/17/19 13:59 DC Date/Time DO NOT enter until pt leaves facility: 07/17/19 15:15
[2019-07-28] MEDS ORDERED: ERGOCALCIFEROL 50,000 UNITS CAP PO SCH (09:00)
== END 2019-07-17 15:15 | disposition home health service (06) | DRG 273 ==
LOC: ED 09:47 → SUATTDRO 13:12 → 2E 13:12 → 2W 07-15 14:56

== ENCOUNTER 2019-09-15 13:37 | Inpatient (IN) ==
[2019-09-15] MEDS ORDERED: fentaNYL citrate 100 MCG/2 ML VIAL IV STA (13:57)
[2019-09-15] MEDS ORDERED: ONDANSETRON INJ 2 MG/ML 2 ML VIAL IV STA (14:28)
[2019-09-15] MEDS ORDERED: ONDANSETRON INJ 2 MG/ML 2 ML VIAL ONE (14:29)
[2019-09-15] MEDS ORDERED: PROMETHAZINE 12.5 MG/50.5 ML BAG IV STA (14:31)
--- NOTE | 2019-09-15 15:16 | CT Scan Report ---
CT head/brain wo con CT DOSE: HISTORY: fall TECHNIQUE: Multiaxial CT images of the head were performed without the use of intravenous contrast. A dose lowering technique was utilized adhering to the principles of ALARA. Comparison: 07/12/2019 Findings: Stable right craniotomy. Craniotomy flap is aligned anatomically. Small chronic right sided subdural hematoma. This is unchanged from the prior exam. This is partially calcified and again consistent with a nonacute process. The ventricular system is midline. No acute intracranial hemorrhage. No midline shift. Chronic and po stoperative change. No acute process. Impression: No acute intracranial abnormality. Chronic and postoperative change ACT 112: Negative or not required by law. The above report was generated using voice recognition software. It may contain grammatical, syntax or spelling errors. Electronically signed by: Luciano Longoria M.D. 09/15/2019 3:15 PM
--- NOTE | 2019-09-15 15:18 | CT Scan Report ---
CT cervical spine wo con CT DOSE: HISTORY: Trauma fall TECHNIQUE: Multiaxial CT images of the cervical spine were performed and reformatted in the sagittal and coronal plane without the use of contrast. A dose lowering technique was utilized adhering to e principles of ALARA. COMPARISON: 02/28/2017 FINDINGS: No fractures. No subluxation. Prevertebral soft tissues and the C1-C2 interval are intact. No pneumothorax. Considerable degenerative change primarily at the C5-C7. Focal defect posterior arch C6 felt to be no nacute. IMPRESSION: Degenerative change. No acute process. ACT 112: Negative or not required by law. The above report was generated using voice recognition software. It may contain grammatical, syntax or spelling errors. Electronically signed by: Luciano Longoria M.D. 09/15/2019 3:17 PM
--- NOTE | 2019-09-15 15:23 | CT Scan Report ---
CT chest wo con CT DOSE: 3457.57 mGy.cm HISTORY: Trauma. Pain. fall, left sided pain TECHNIQUE: Multiaxial CT images of the chest were performed without contrast. A dose lowering techni que was utilized adhering to the principles of ALARA. COMPARISON: 06/26/2018 FINDINGS: Chronic parenchymal prominence both lung bases. Moderate stable cardiomegaly. No evidence f or pneumothorax. Nondisplaced cortical fracture left humeral head. Several stable mediastinal and hil ar nodes as compared to the prior exam. There is no evidence for bulky adenopathy IMPRESSION: 1. Nondisplaced cortical fracture left humeral head. 2. Chronic change of the chest with no acute process. ACT 112: Negative or not required by law. The above report was generated using voice recognition software. It may contain grammatical, syntax or spelling errors. Electronically signed by: Luciano Longoria M.D. 09/15/2019 3:21 PM
--- NOTE | 2019-09-15 15:26 | CT Scan Report ---
CT abd pelvis wo con CT DOSE: HISTORY: Trauma. Pain. fall, L sided pain TECHNIQUE: Multiaxial CT images of the abdomen and pelvis were performed without contrast. A dose lo wering technique was utilized adhering to the principles of ALARA. COMPARISON STUDY: 08/08/2018 FINDINGS: The lung bases are clear. The unenhanced liver, spleen, gallbladder, pancreas, kidneys, and adrenal glands are within normal limits. No bowel wall thickening or obstruction. The pelvic organs are unremarkable. No suspicious lytic or blastic osseous lesions. Chronic sigmoid diverticulosis. No evidence for acute diverticulitis. Bladder is midline. IMPRESSION: No acute posttraumatic abnormality. ACT 112: Negative or not required by law. The above report was generated using voice recognition software. It may contain grammatical, syntax or spelling errors. Electronically signed by: Luciano Longoria M.D. 09/15/2019 3:25 PM
[2019-09-15] MEDS ORDERED: ACETAMINOPHEN 1,000 MG/100 ML VIAL IV STA (15:51)
--- NOTE | 2019-09-15 16:23 | XRay Report ---
XR shoulder LT min 2V routine CLINICAL HISTORY: fall trauma COMPARISON: None. DISCUSSION: Nondisplaced fracture humeral neck and lateral aspect humeral head. No evidence dislocati on. There is no evidence for soft tissue swelling. IMPRESSION: Nondisplaced fracture lateral aspect humeral head and neck. ACT 112: Negative or not required by law. The above report was generated using voice recognition software. It may contain grammatical, syntax or spelling errors. Electronically signed by: Luciano Longoria M.D. 09/15/2019 4:21 PM
[2019-09-15 16:33] LABS: BUN Creatinine Ratio 24.3 (10-20); Calcium 8.9 mg/dl (8.5-10.1); Creatinine Clr Calc Pharmacy 23.1 ml/min; Est GFR (African American) 26.1; Est GFR (Non-African American) 22.5
[2019-09-15 16:46] LABS: Hematocrit (blood only) 38.8 % (37-47); Hemoglobin 11.6 g/dL (12.0-16.0); Mean Corpuscular Hemoglobin 27.8 pg (25-34); Mean Corpuscular Hgb Conc 29.9 g/dL (32-36); Mean Corpuscular Volume 92.8 fL (80-100); Mean Platelet Volume 12.5 fL (7.4-10.4); Platelet Count 113 K/uL (130-400); RDW Coefficient of Variation 16.6 % (11.5-14.5); RDW Standard Deviation 56.5 fL (36.4-46.3); Red Blood Count 4.18 M/uL (4.2-5.4); White Blood Count 4.27 K/uL (4.8-10.8)
[2019-09-15 16:48] LABS: Basophils # (auto) 0.01 K/uL (0-0.2); Basophils % (auto) 0.2 %; Eosinophils # (auto) 0.09 K/uL (0-0.5); Eosinophils % (auto) 2.1 %; Giant Platelets 1+; Hypochromasia Present; Immature Granulocytes # (auto) 0.04 K/uL (0.00-0.02); Immature Granulocytes % (auto) 0.9 %; Lymphocytes # (auto) 0.64 K/uL (1.2-3.4); Monocytes # (auto) 0.29 K/uL (0.11-0.59); Monocytes % (auto) 6.8 %; Platelet Estimate Decreased (Normal)
--- NOTE | 2019-09-15 19:03 | Emergency Department Note ---
Entered by Marysol Pedraza acting as a scribe for Carlo Isaac M.D. History of Present Illness General Chief complaint: Fall Time Seen by Provider: 09/15/19 13:39 Source: patient and EMS History of Present Illness Onset (ago): hour(s) (1) Location: head (general) Pain Consistency: + other (episode) Quality: + other (fall) Associated symptoms: + denies other symptoms (change in vision), + headaches and + other (left shoulder pain); no nausea/vomiting and no shortness of breath The patient is a 79 year old female who presents to the Emergency Room with complaints of an episode of a fall that occurred 1 hour ago. EMS states the patient denies loss of consciousness. EMS states she is unsure why she fell, but thinks she tripped on her oxygen cord. They note patient states she hit the left side of her leg, shoulder, and head on a wall. EMS notes the worst of the pain is in her left shoulder. The patient reports a slight headache. The patient denies change in vision, nausea, shortness of breath. EMS reports the patient is on 2-3L of oxygen at home. Home Medications Home Medications Medication Instructions Recorded Confirmed Type ascorbic acid (vitamin C) [Vitamin 1 g PO QAM 06/20/18 09/15/19 History C] ergocalciferol (vitamin D2) 50,000 unit PO MONTHLY 06/20/18 09/15/19 History [Vitamin D2] multivitamin 1 tab PO QAM 06/20/18 09/15/19 History pregabalin [Lyrica] 200 mg PO BID 01/18/19 09/15/19 History furosemide [Lasix] 40 mg PO HS PRN 02/12/19 09/15/19 History nitroglycerin 0.4 mg sublingual 0.4 mg SL Q5M PRN #25 tab 02/26/19 09/15/19 History tablet insulin lispro [Humalog KwikPen 11 unit SUBCUT QDB 04/22/19 09/15/19 History Insulin] insulin lispro [Humalog KwikPen 18 unit SUBCUT QDL 04/22/19 09/15/19 History Insulin] insulin lispro [Humalog KwikPen 28 unit SUBCUT QDD 04/22/19 09/15/19 History Insulin] levothyroxine [Synthroid] 25 mcg PO QAM 06/04/19 09/15/19 History Praluent Pen 75 mg SQ Q14D 07/12/19 09/15/19 History buspirone 10 mg PO TID 07/12/19 09/15/19 History clopidogrel [Plavix] 75 mg PO QAM 07/12/19 09/15/19 History furosemide [Lasix] 80 mg PO DAILY 07/12/19 09/15/19 History metoprolol tartrate [Lopressor] 50 mg PO UD 07/12/19 09/15/19 History ipratropium-albuterol 3 ml NEB QIDR PRN #90 ml 07/17/19 09/15/19 Rx insulin glargine 100 unit/mL (3 30 units SUBCUT BID ml 08/07/19 09/15/19 History mL) subcutaneous pen apixaban [Eliquis] 2.5 mg PO BID 09/15/19 09/15/19 History Allergies Allergy/AdvReac Type Severity Reaction Status Date / Time eptifibatide Allergy Severe ANAPHYLAXIS Verified 09/15/19 14:24 hornet venom Allergy Severe WASP VENOM Verified 09/15/19 14:24 PROTEIN-ANAPHYLAXIS levofloxacin [From Levaquin] Allergy Severe Hives Verified 09/15/19 14:24 atorvastatin Allergy Unknown MUSCLE PAIN Verified 09/15/19 14:24 ezetimibe Allergy Unknown MUSCLE PAIN Verified 09/15/19 14:24 simvastatin Allergy Unknown MUSCLE PAIN Verified 09/15/19 14:24 amlodipine AdvReac Severe Nausea Verified 09/15/19 14:24 azithromycin AdvReac Intermediate Palpitation Verified 09/15/19 14:24 s warfarin AdvReac Intermediate EXTREME Verified 09/15/19 14:24 BLEEDING TIMES codeine AdvReac Mild VOMITING Verified 09/15/19 14:24 gemfibrozil AdvReac Mild NAUSEA Verified 09/15/19 14:24 meperidine AdvReac Mild VOMITING Verified 09/15/19 14:24 ondansetron AdvReac Mild vomiting Verified 09/15/19 14:24 ranitidine [From Zantac] AdvReac Mild dyspepsia Verified 09/15/19 14:24 cortisone AdvReac Unknown INCREASES Verified 09/15/19 14:24 SUGAR AND VOMITING? hydralazine AdvReac Unknown VOMITING Verified 09/15/19 14:24 ibuprofen AdvReac Unknown VOMITING Verified 09/15/19 14:24 AND DIARRHEA iodine AdvReac Unknown SHELLFISH Verified 09/15/19 14:24 - VOMITING shellfish derived AdvReac Unknown VOMITING Verified 09/15/19 14:24 Sulfa (Sulfonamide AdvReac Unknown VOMITING Verified 09/15/19 14:24 Antibiotics) Past Med/Surg History Medical History Angina pectoris Atrial fibrillation CAD (coronary artery disease) cardiac stents x 6; most recent: AWILDA x2 (mid/distal RCA) 07/06/18* Chronic kidney disease, stage 4 (severe) CKD (chronic kidney disease) stage 3, GFR 30-59 ml/min COPD with acute exacerbation Diabetes (Chronic) Diabetic foot ulcer associated with type 2 diabetes mellitus (Acute) Diastolic CHF 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) Dyslipidemia HTN (hypertension) (Chronic) Hypertrophic cardiomyopathy apical variant Hypothyroidism Lung cancer Myocardial infarction X4 Peripheral neuropathy (Chronic) Proteinuria (Chronic) Respiratory failure 2-3L O2 Subdural hematoma Thrombocytopenia chronic; baseline platelets low 100's Surgical History History of cardioversion MULTIPLE History of lung surgery PARTIAL LEFT LOBECTOMY (2013) Hx of brain surgery 2017 S/P FALL/INJURY; SUBSEQUENT BLOOD CLOT EVACUATION S/P cardiac catheterization 7 TOTAL; CARDIAC STENTS X6 S/P hysterectomy S/P tonsillectomy Family History Father Cancer Heart disease Diabetes Mother Stroke Hypertension Grandmother (Maternal) Coronary heart disease Stroke Family/Other Multiple sclerosis Brother Coronary heart disease Grandfather (Maternal) Heart disease Grandfather (Paternal) Diabetes Aunt Muscular dystrophy Other Gallbladder disease Kidney stones Social History Preferred Language: Jordanian Communication Ability: Effective Biomedical Repair Technician Required: No Beliefs That Will Affect Care: None marital status: Current Living Situation: Spouse 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: Retired/Disabled Feels Safe at Home: Yes Smoking Status: Never smoker Second Hand Exposure: No ; Hx Alcohol Use: No Hx Substance Use: No Review of Systems See HPI for pertinent positives & negatives. and A total of 10 systems reviewed and were otherwise negative Physical Exam Vital Signs Vital Signs - 24 hr 09/15/19 13:37 09/15/19 15:14 09/15/19 15:30 Temperature 36.7 C Temperature Source Oral Pulse Rate 72 70 70 Pulse Rate from SpO2 Sensor 69 70 Respiratory Rate 18 12 12 Respiratory Effort / Characteristics Non-Labored Respiratory Depth Normal Respiratory Pattern Regular Blood Pressure 173/51 H 166/89 H 145/93 H Blood Pressure Mean 91 100 110 Pulse Oximetry 96 97 99 Oxygen Delivery Method Nasal Cannula Nasal Cannula Nasal Cannula Oxygen Flow Rate 2 3 3 Sepsis Recent Fever Within 48 Hours No Sepsis New/Unexplained Change in Mental Status No Sepsis Action Taken by Nursing No Action Required 09/15/19 16:01 09/15/19 16:30 09/15/19 17:00 Temperature Temperature Source Pulse Rate 70 70 70 Pulse Rate from SpO2 Sensor 70 69 Respiratory Rate 18 12 25 H Respiratory Effort / Characteristics Respiratory Depth Respiratory Pattern Blood Pressure 169/90 H 166/93 H 169/88 H Blood Pressure Mean 112 115 126 Pulse Oximetry 99 100 Oxygen Delivery Method Nasal Cannula Nasal Cannula Oxygen Flow Rate 3 3 Sepsis Recent Fever Within 48 Hours Sepsis New/Unexplained Change in Mental Status Sepsis Action Taken by Nursing GENERAL: Awake, alert, well-appearing, in no distress HENT: Small contusion on left side of the head. Normocephalic. EYES: Normal conjunctiva. Sclera non-icteric. Eyes PERRL. NECK: Supple. No nuchal rigidity. RESPIRATORY: Clear to auscultation. Normal respiratory effort. CARDIAC: Normal rate. Normal rhythm. Extremities warm and well perfused. GI: Soft, non-distended. No tenderness to palpation. No rebound or guarding. RECTAL: Deferred. MUSCULOSKELETAL: Left shoulder tenderness. 2+ radial pulse. Neuro intact in left hand. Chest examination reveals no tenderness. LOWER EXTREMITIES: Calves are equal size bilaterally and non-tender. NEURO: Normal sensorium. No gross sensory or motor deficits noted although guarding LUE 2/2 to pain in L shoulder. No facial droop. SKIN: Warm and dry. No jaundice noted. Course Course 0145: Past medical records reviewed. The patient was evaluated in room C02B. A complete history and physical exam was performed. 1545: Upon reevaluation the patient is resting more comfortably. I discussed my findings and results with the patient. 1600: regional transportation manager will speak to the patient about the possibility of going to [facility]. 1720: Case management spoke with the patient about observation here at the hospital versus referral to [facility]. The patient agrees to be further evaluated in the hospital. I spoke with Dr. Hinojosa of the [facility] Hospitalist Service who agrees to further evaluate the patient. Administered Medications Discontinued Medications Fentanyl Citrate (Fentanyl Citrate) 50 mcg IV NOW STA Stop: 09/15/19 13:58 Last Admin: 09/15/19 14:30 Dose: 50 mcg Documented by: [id number] Promethazine HCl (Phenergan) 12.5 mg in 50.5 mls @ 202 mls/hr IV NOW STA Stop: 09/15/19 14:45 Last Infusion: 09/15/19 14:56 Dose: 0 mls/hr Documented by: [id number] Admin: 09/15/19 14:36 Dose: 202 mls/hr Documented by: [id number] Acetaminophen (Ofirmev) 1,000 mg in 100 mls @ 400 mls/hr IV NOW STA Stop: 09/15/19 16:05 Last Infusion: 09/15/19 16:18 Dose: 0 mls/hr Documented by: [id number] Admin: 09/15/19 16:02 Dose: 400 mls/hr Documented by: [id number] Ondansetron HCl (Zofran) 4 mg IV NOW STA Stop: 09/15/19 14:29 Last Admin: 09/15/19 14:36 Dose: Not Given Documented by: [id number] Ondansetron HCl (Zofran) Confirm Administered Dose 4 mg .ROUTE .STK-MED ONE Stop: 09/15/19 14:30 Last Admin: 09/15/19 14:36 Dose: Not Given Documented by: [id number] Medical Decision Making Differential Diagnosis Differential diagnoses include major intracranial, cervical, spinal, thoracic, abdominal, pelvic and neurologic injury. Fracture, contusion, sprain, strain, laceration, abrasions included as well. Medical Records Attestation: I reviewed the patient's medical records. Home Medications Current Medication List: was personally reviewed by me Laboratory Data Attestation: I reviewed the patient's lab results. Result diagrams: 09/15/19 14:19 09/15/19 14:19 Lab Results 09/15/19 09/15/19 Range/Units 14:19 14:19 WBC 4.27 L (4.8-10.8) K/uL RBC 4.18 L (4.2-5.4) M/uL Hgb 11.6 L (12.0-16.0) g/dL Hct 38.8 (37-47) % MCV 92.8 (80-100) fL MCH 27.8 (25-34) pg MCHC 29.9 L (32-36) g/dL RDW Std Deviation 56.5 H (36.4-46.3) fL RDW Coeff of Nhi 16.6 H (11.5-14.5) % Plt Count 113 L (130-400) K/uL MPV 12.5 H (7.4-10.4) fL Immature Gran % (Auto) 0.9 % Neut % (Auto) 75.0 % Lymph % (Auto) 15.0 % [place] % (Auto) 6.8 % Eos % (Auto) 2.1 % Baso % (Auto) 0.2 % Immature Gran # (Auto) 0.04 H (0.00-0.02) K/uL Neut # (Auto) 3.20 (1.4-6.5) K/uL Lymph # (Auto) 0.64 L (1.2-3.4) K/uL [place] # (Auto) 0.29 (0.11-0.59) K/uL Eos # (Auto) 0.09 (0-0.5) K/uL Baso # (Auto) 0.01 (0-0.2) K/uL Platelet Estimate Decreased L (Normal) Giant Platelets 1+ Hypochromasia Present Sodium 144 (136-145) mmol/L Potassium 4.0 (3.5-5.1) mmol/L Chloride 107 (98-107) mmol/L Carbon Dioxide 35 H (21-32) mmol/L Anion Gap 2.0 L (3-11) BUN 50 H (7-18) mg/dl Creatinine 2.06 H (0.6-1.2) mg/dl Est Cr Clr Drug Dosing 23.1 ml/min Est GFR ( Amer) 26.1 Est GFR (Non-Af Amer) 22.5 BUN/Creatinine Ratio 24.3 H (10-20) Glucose 184 H (70-99) mg/dl Calcium 8.9 (8.5-10.1) mg/dl Imaging Data Radiologist's Impression: Radiology results as stated below per my review and the radiologist's interpretation: CT cervical spine wo con CT DOSE: HISTORY: Trauma fall TECHNIQUE: Multiaxial CT images of the cervical spine were performed and reformatted in the sagittal and coronal plane without the use of contrast. A dose lowering technique was utilized adhering to the principles of ALARA. COMPARISON: 02/28/2017 FINDINGS: No fractures. No subluxation. Prevertebral soft tissues and the C1-C2 interval are intact. No pneumothorax. Considerable degenerative change primarily at the C5-C7. Focal defect posterior arch C6 felt to be nonacute. IMPRESSION: Degenerative change. No acute process. ACT 112: Negative or not required by law. The above report was generated using voice recognition software. It may contain grammatical, syntax or spelling errors. Electronically signed by: Luciano Longoria M.D. 09/15/2019 3:[address] head/brain wo con CT DOSE: HISTORY: fall TECHNIQUE: Multiaxial CT images of the head were performed without the use of intravenous contrast. A dose lowering technique was utilized adhering to the principles of ALARA. Comparison: 07/12/2019 Findings: Stable right craniotomy. Craniotomy flap is aligned anatomically. Small chronic right sided subdural hematoma. This is unchanged from the prior exam. This is partially calcified and again consistent with a nonacute process. The ventricular system is midline. No acute intracranial hemorrhage. No midline shift. Chronic and postoperative change. No acute process. Impression: No acute intracranial abnormality. Chronic and postoperative change ACT 112: Negative or not required by law. The above report was generated using voice recognition software. It may contain grammatical, syntax or spelling errors. Electronically signed by: Luciano Longoria M.D. 09/15/2019 3:[address] chest wo con CT DOSE: 3457.57 mGy.cm HISTORY: Trauma. Pain. fall, left sided pain TECHNIQUE: Multiaxial CT images of the chest were performed without contrast. A dose lowering technique was utilized adhering to the principles of ALARA. COMPARISON: 06/26/2018 FINDINGS: Chronic parenchymal prominence both lung bases. Moderate stable cardiomegaly. No evidence for pneumothorax. Nondisplaced cortical fracture left humeral head. Several stable mediastinal and hilar nodes as compared to the prior exam. There is no evidence for bulky adenopathy IMPRESSION: 1. Nondisplaced cortical fracture left humeral head. 2. Chronic change of the chest with no acute process. ACT 112: Negative or not required by law. The above report was generated using voice recognition software. It may contain grammatical, syntax or spelling errors. Electronically signed by: Luciano Longoria M.D. 09/15/2019 3:[address] abd pelvis wo con CT DOSE: HISTORY: Trauma. Pain. fall, L sided pain TECHNIQUE: Multiaxial CT images of the abdomen and pelvis were performed without contrast. A dose lowering technique was utilized adhering to the principles of ALARA. COMPARISON STUDY: 08/08/2018 FINDINGS: The lung bases are clear. The unenhanced liver, spleen, gallbladder, pancreas, kidneys, and adrenal glands are within normal limits. No bowel wall thickening or obstruction. The pelvic organs are unremarkable. No suspicious lytic or blastic osseous lesions. Chronic sigmoid diverticulosis. No evidence for acute diverticulitis. Bladder is midline. IMPRESSION: No acute posttraumatic abnormality. ACT 112: Negative or not required by law. The above report was generated using voice recognition software. It may contain grammatical, syntax or spelling errors. Electronically signed by: Luciano Longoria M.D. 09/15/2019 3:25 PM XR shoulder LT min 2V routine CLINICAL HISTORY: fall trauma COMPARISON: None. DISCUSSION: Nondisplaced fracture humeral neck and lateral aspect humeral head. No evidence dislocation. There is no evidence for soft tissue swelling. IMPRESSION: Nondisplaced fracture lateral aspect humeral head and neck. ACT 112: Negative or not required by law. The above report was generated using voice recognition software. It may contain grammatical, syntax or spelling errors. Electronically signed by: Luciano Longoria M.D. 09/15/2019 4:21 PM Blood Pressure Blood Pressure Findings: Elevated blood pressure Blood Pressure Disposition: further management by hospitalist Head Trauma GCS Score: 15 MDM Narrative Patient is a 79-year-old female with a past medical history including CAD, diabetes with neuropathy, COPD, atrial fibrillation on Eliquis, CKD, and hypertension presenting here today after a fall. Patient states he tripped on oxygen cord she struggling to lose at home and fell onto her left side. Is on Eliquis. Small bruise to left side of the head. Significant left shoulder pain. Neurovascular intact with no open wounds on the left upper extremity. Pain in the little bit in the left flank as well. CT the head, neck, chest, abdomen pelvis were obtained noncontrast given her renal function. X-ray of the shoulder was obtained. No evidence of significant traumatic injury to the head neck or thorax. Unfortunately the shoulder does appear to have humeral head fracture. CTs likely show again no acute traumatic injury. Given the patient's comorbidities the fact she lives alone and her ability to ambulate well in a sling with this arm fracture, discussed with her options of ability to go home versus possible need for placement. Patient wished for observation and hospitalist contacted Impression & Plan Fall, Fracture of head of left humerus Discharge Plan Visit Data Chief Complaint: Fall ED Provider: Carlo Isaac Discharge Problem: Fall, Fracture of head of left humerus Patient Disposition: Being Evaluated by Hospitalist Forms Stand Alone Forms: [facility] [employer] Prescriptions Prescriptions: No Action nitroglycerin 0.4 mg tablet, sublingual 0.4 mg SL Q5M PRN (Reason: Chest Pain) Qty: 25 RF: 0 Basaglar KwikPen U-100 Insulin 100 unit/mL (3 mL) insulin pen 30 units subcut BID RF: 0 multivitamin Tablet 1 tab PO QAM RF: 0 ascorbic acid (vitamin C) [Vitamin C] 1,000 mg Tablet 1 g PO QAM RF: 0 ergocalciferol (vitamin D2) [Vitamin D2] 50,000 unit Capsule 50,000 unit PO MONTHLY RF: 0 pregabalin [Lyrica] 200 mg capsule 200 mg PO BID RF: 0 levothyroxine [Synthroid] 25 mcg tablet 25 mcg PO QAM RF: 0 furosemide [Lasix] 40 mg tablet 40 mg PO HS PRN (Reason: Edema) RF: 0 insulin lispro [Humalog KwikPen Insulin] 100 unit/mL insulin pen 18 unit subcut QDL RF: 0 insulin lispro [Humalog KwikPen Insulin] 100 unit/mL insulin pen 11 unit subcut QDB RF: 0 insulin lispro [Humalog KwikPen Insulin] 100 unit/mL insulin pen 28 unit subcut QDD RF: 0 buspirone 10 mg tablet 10 mg PO TID RF: 0 clopidogrel [Plavix] 75 mg tablet 75 mg PO QAM RF: 0 furosemide [Lasix] 80 mg tablet 80 mg PO DAILY RF: 0 metoprolol tartrate [Lopressor] 50 mg tablet 50 mg PO UD RF: 0 Praluent Pen 75 mg/mL pen injector 75 mg SQ Q14D RF: 0 ipratropium-albuterol 0.5 mg-3 mg(2.5 mg base)/3 mL Solution For Nebulization 3 ml NEB QIDR PRN (Reason: shortness of breath or wheezing) Qty: 90 RF: 0 Eliquis 5 mg tablet 2.5 mg PO BID RF: 0 Referrals Referrals: Lizet Jeter DO [Primary Care Provider] - Discharge Problem: Fall Qualifiers: Encounter type: initial encounter Qualified Code(s): W19.XXXA - Unspecified fall, initial encounter Fracture of head of left humerus Qualifiers: Encounter type: initial encounter Fracture type: closed Qualified Code(s): S42.292A - Other displaced fracture of upper end of left humerus, initial encounter for closed fracture The scribe's documentation has been prepared under my direction and personally reviewed by me in its entirety. I confirm that the note above accurately reflects all work, treatment, procedures, and medical decision making performed by me.
[2019-09-15] MEDS ORDERED: ONDANSETRON INJ 2 MG/ML 2 ML VIAL IV PRN (19:55)
[2019-09-15] MEDS ORDERED: GLUCAGON FOR INJ 1 MG VIAL SQ PRN (19:55)
[2019-09-15] MEDS ORDERED: CARBOHYDRATES FOR HYPOGLYCEMIA PO PRN (19:55)
[2019-09-15] MEDS ORDERED: ACETAMINOPHEN 325 MG TAB PO PRN (19:55)
[2019-09-15] MEDS ORDERED: DEXTROSE 50% 50 ML SYRINGE IV PRN (19:55)
[2019-09-15] MEDS ORDERED: GLUCOSE 10 TABS/TUBE PO PRN (19:55)
[2019-09-15] MEDS ORDERED: GLUCOSE 40% GEL 15 GM TUBE PO PRN (19:55)
[2019-09-15] MEDS ORDERED: ALBUT/IPRATROP 3MG/0.5MG NEB 3 ML VIAL NEB PRN (19:55)
--- NOTE | 2019-09-15 20:09 | History & Physical Report ---
Date of Service September 15, 2019 Assessment & Plan (1) Fall: Status post chemical fall resulting in fracture of left humeral head. -Maintain arm immobilized in sling -Pain control Tylenol as needed Caution with IV narcotics, concern for delirium with "spider on the wall" Neurochecks every 4 hours as patient with head trauma on apixaban (2) Fracture of head of left humerus: Pain well controlled Tylenol as needed Continue immobilization PT/OT (3) Coronary artery disease: Patient with history of CAD status post multiple percutaneous interventions in the past. Presently with no chest pain Continue Plavix, metoprolol Present on Admission?: Yes (4) Hypothyroidism: Chronic. TSH = 1.65 on 07/12/2019 Continue Synthroid Present on Admission?: Yes (5) Chronic kidney disease: BUN = 50, creatinine = 2.06 which is near patient's baseline. She is making adequate urine, electrolytes are favorable Avoid nephrotoxic agents Renal dosing were needed Continue to monitor BUN/creatinine/electrolytes/urine output Present on Admission?: Yes (6) Anemia: Hgb = 11.6, HCT = 38.8. No active bleeding Continue to monitor Present on Admission?: Yes (7) CHF (congestive heart failure): Patient with diastolic dysfunction. Presently no overt evidence of congestive failure. Adequate oxygenation on room air Continue home medications, metoprolol, Lasix Present on Admission?: Yes (8) A-fib: Patient with atrial fibrillation status post AV node ablation and dual- chamber pacemaker placement. + S1/S2, regular on cardiac exam today. Patient follows with cardiology, last seen on 08/07/2019 Continue apixaban 2.5 mg p.o. twice daily Continue Plavix 75 mg p.o. daily Continue metoprolol tartrate 25 mg p.o. every morning and 50 mg p.o. nightly Present on Admission?: Yes (9) Diabetes 1.5, managed as type 2: Blood sugar = 184 A1c on 09/06/2019 = 7.2 We will hold patient's NovoLog Lantus 20 units subcu twice daily Continue Lyrica 200 mg p.o. twice daily Insulin sliding scale correction factor = 25, carb ratio = 9, goal blood sugar 100-140 Consistent carb diet as tolerated Present on Admission?: Yes (10) Anxiety: Chronic. Stable. Continue buspirone FENHep-Lock. Electrolytes within normal limits. Consistent carb/heart healthy diet as tolerated. Prophylaxispatient on apixaban CodeDNR/DNI per discussion with patient Dispositionadmit to medical floor History of Present Illness Chief Complaint: Humerus fracture Primary Care Provider: Lizet Jeter DO Maureen Hagen is a pleasant 71-year-old female with multiple medical problems, most notably A. fib on apixaban, CAD/CKD/COPD/diabetes, presenting after mechanical fall at home resulting in a left humeral head fracture. Patient reports she was in her home this afternoon in her usual state of health when her phone rang. She saw that it was her son who typically does not call during that time of day and she was in a bit of a hurry to answer. She tripped over her oxygen tubing and fell into the wall. She hit her head and left shoulder. She did not lose consciousness, denies chest pain/shortness of breath/palpitations/seizure activity. Was unable to get up secondary to pain therefore 911 was called. Presently she is complaining of left shoulder pain as well as "a spider on the ceiling" which showed up after she received pain medication. Otherwise, no complaints. ER course: Tylenol, fentanyl, Zofran, Phenergan Allergies Allergy/AdvReac Type Severity Reaction Status Date / Time eptifibatide Allergy Severe ANAPHYLAXIS Verified 09/15/19 14:24 hornet venom Allergy Severe WASP VENOM Verified 09/15/19 14:24 PROTEIN-ANAPHYLAXIS levofloxacin [From Levaquin] Allergy Severe Hives Verified 09/15/19 14:24 atorvastatin Allergy Unknown MUSCLE PAIN Verified 09/15/19 14:24 ezetimibe Allergy Unknown MUSCLE PAIN Verified 09/15/19 14:24 simvastatin Allergy Unknown MUSCLE PAIN Verified 09/15/19 14:24 amlodipine AdvReac Severe Nausea Verified 09/15/19 14:24 azithromycin AdvReac Intermediate Palpitation Verified 09/15/19 14:24 s warfarin AdvReac Intermediate EXTREME Verified 09/15/19 14:24 BLEEDING TIMES codeine AdvReac Mild VOMITING Verified 09/15/19 14:24 gemfibrozil AdvReac Mild NAUSEA Verified 09/15/19 14:24 meperidine AdvReac Mild VOMITING Verified 09/15/19 14:24 ondansetron AdvReac Mild vomiting Verified 09/15/19 14:24 ranitidine [From Zantac] AdvReac Mild dyspepsia Verified 09/15/19 14:24 cortisone AdvReac Unknown INCREASES Verified 09/15/19 14:24 SUGAR AND VOMITING? hydralazine AdvReac Unknown VOMITING Verified 09/15/19 14:24 ibuprofen AdvReac Unknown VOMITING Verified 09/15/19 14:24 AND DIARRHEA iodine AdvReac Unknown SHELLFISH Verified 09/15/19 14:24 - VOMITING shellfish derived AdvReac Unknown VOMITING Verified 09/15/19 14:24 Sulfa (Sulfonamide AdvReac Unknown VOMITING Verified 09/15/19 14:24 Antibiotics) Home Medications Home Medications Medication Instructions Recorded Confirmed Type ascorbic acid (vitamin C) [Vitamin 1 g PO QAM 06/20/18 09/15/19 History C] ergocalciferol (vitamin D2) 50,000 unit PO MONTHLY 06/20/18 09/15/19 History [Vitamin D2] multivitamin 1 tab PO QAM 06/20/18 09/15/19 History pregabalin [Lyrica] 200 mg PO BID 01/18/19 09/15/19 History furosemide [Lasix] 40 mg PO HS PRN 02/12/19 09/15/19 History nitroglycerin 0.4 mg sublingual 0.4 mg SL Q5M PRN #25 tab 02/26/19 09/15/19 History tablet insulin lispro [Humalog KwikPen 11 unit SUBCUT QDB 04/22/19 09/15/19 History Insulin] insulin lispro [Humalog KwikPen 18 unit SUBCUT QDL 04/22/19 09/15/19 History Insulin] insulin lispro [Humalog KwikPen 28 unit SUBCUT QDD 04/22/19 09/15/19 History Insulin] levothyroxine [Synthroid] 25 mcg PO QAM 06/04/19 09/15/19 History Praluent Pen 75 mg SQ Q14D 07/12/19 09/15/19 History buspirone 10 mg PO TID 07/12/19 09/15/19 History clopidogrel [Plavix] 75 mg PO QAM 07/12/19 09/15/19 History furosemide [Lasix] 80 mg PO DAILY 07/12/19 09/15/19 History metoprolol tartrate [Lopressor] 50 mg PO UD 07/12/19 09/15/19 History ipratropium-albuterol 3 ml NEB QIDR PRN #90 ml 07/17/19 09/15/19 Rx insulin glargine 100 unit/mL (3 30 units SUBCUT BID ml 08/07/19 09/15/19 History mL) subcutaneous pen apixaban [Eliquis] 2.5 mg PO BID 09/15/19 09/15/19 History Past Med/Surg History Medical History Angina pectoris Atrial fibrillation CAD (coronary artery disease) cardiac stents x 6; most recent: AWILDA x2 (mid/distal RCA) 07/06/18* Chronic kidney disease, stage 4 (severe) CKD (chronic kidney disease) stage 3, GFR 30-59 ml/min COPD with acute exacerbation Diabetes (Chronic) Diabetic foot ulcer associated with type 2 diabetes mellitus (Acute) Diastolic CHF 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) Dyslipidemia HTN (hypertension) (Chronic) Hypertrophic cardiomyopathy apical variant Hypothyroidism Lung cancer Myocardial infarction X4 Peripheral neuropathy (Chronic) Proteinuria (Chronic) Respiratory failure 2-3L O2 Subdural hematoma Thrombocytopenia chronic; baseline platelets low 100's Surgical History History of cardioversion MULTIPLE History of lung surgery PARTIAL LEFT LOBECTOMY (2013) Hx of brain surgery 2017 S/P FALL/INJURY; SUBSEQUENT BLOOD CLOT EVACUATION S/P cardiac catheterization 7 TOTAL; CARDIAC STENTS X6 S/P hysterectomy S/P tonsillectomy Family History Father Cancer Heart disease Diabetes Mother Stroke Hypertension Grandmother (Maternal) Coronary heart disease Stroke Family/Other Multiple sclerosis Brother Coronary heart disease Grandfather (Maternal) Heart disease Grandfather (Paternal) Diabetes Aunt Muscular dystrophy Other Gallbladder disease Kidney stones Social History Preferred Language: [place] Communication Ability: Effective Director Of Surgery Required: No Beliefs That Will Affect Care: None marital status: Current Living Situation: Spouse 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: Retired/Disabled Feels Safe at Home: Yes Smoking Status: Never smoker Second Hand Exposure: No ; Hx Alcohol Use: No Hx Substance Use: No Review of Systems Review of Systems: All systems reviewed & are unremarkable except as noted in HPI & below Physical Exam Physical Exam: General: patient resting comfortably, NAD, non-toxic in appearance, AA&O x 4 Skin: warm, dry, intact, no rashes or lesions HEENT: NC/AT, PERRL, EOMI, anicteric sclera, conjunctiva without injection, external ear normal to inspection and nontender, nares patent, moist mucus membranes, dentition intact, no oropharyngeal lesions, neck supple, trachea midline, no LAD, no thyromegaly, no JVD Heart: +S1/S2, regular, no m/r/g Lungs: equal air entry bilaterally, no rales/rhonchi/wheezes Abd: +BS, soft, NT/ND, no masses/organomegaly/ascites Ext: warm, 2+ pulses in UE/LE bilaterally, no clubbing/cyanosis or edema, left arm in sling, neurovascularly intact Neuro: nonfocal, patient AA&O x 4, speech intact, no facial droop, moving all extremities on command with equal strength 5/5 Results & Data Vital Signs (Past 12 Hours) Vital Signs Temp Pulse Resp BP Pulse Ox 09/15/19 19:36 71 20 139/82 98 09/15/19 19:00 71 20 139/82 09/15/19 18:31 70 17 158/68 H 09/15/19 18:00 70 19 175/88 H 09/15/19 17:30 70 23 163/100 H 09/15/19 17:00 70 25 H 169/88 H 09/15/19 16:30 70 12 166/93 H 100 09/15/19 16:01 70 18 169/90 H 99 09/15/19 15:30 70 12 145/93 H 99 09/15/19 15:14 70 12 166/89 H 97 09/15/19 13:37 36.7 C 72 18 173/51 H 96 Laboratory Results Lab Results 09/15/19 09/15/19 Range/Units 14:19 14:19 WBC 4.27 L (4.8-10.8) K/uL RBC 4.18 L (4.2-5.4) M/uL Hgb 11.6 L (12.0-16.0) g/dL Hct 38.8 (37-47) % MCV 92.8 (80-100) fL MCH 27.8 (25-34) pg MCHC 29.9 L (32-36) g/dL RDW Std Deviation 56.5 H (36.4-46.3) fL RDW Coeff of Nhi 16.6 H (11.5-14.5) % Plt Count 113 L (130-400) K/uL MPV 12.5 H (7.4-10.4) fL Immature Gran % (Auto) 0.9 % Neut % (Auto) 75.0 % Lymph % (Auto) 15.0 % [place] % (Auto) 6.8 % Eos % (Auto) 2.1 % Baso % (Auto) 0.2 % Immature Gran # (Auto) 0.04 H (0.00-0.02) K/uL Neut # (Auto) 3.20 (1.4-6.5) K/uL Lymph # (Auto) 0.64 L (1.2-3.4) K/uL [place] # (Auto) 0.29 (0.11-0.59) K/uL Eos # (Auto) 0.09 (0-0.5) K/uL Baso # (Auto) 0.01 (0-0.2) K/uL Platelet Estimate Decreased L (Normal) Giant Platelets 1+ Hypochromasia Present Sodium 144 (136-145) mmol/L Potassium 4.0 (3.5-5.1) mmol/L Chloride 107 (98-107) mmol/L Carbon Dioxide 35 H (21-32) mmol/L Anion Gap 2.0 L (3-11) BUN 50 H (7-18) mg/dl Creatinine 2.06 H (0.6-1.2) mg/dl Est Cr Clr Drug Dosing 23.1 ml/min Est GFR ( Amer) 26.1 Est GFR (Non-Af Amer) 22.5 BUN/Creatinine Ratio 24.3 H (10-20) Glucose 184 H (70-99) mg/dl Calcium 8.9 (8.5-10.1) mg/dl Diagnostic Findings CT abd pelvis wo con CT DOSE: HISTORY: Trauma. Pain. fall, L sided pain TECHNIQUE: Multiaxial CT images of the abdomen and pelvis were performed without contrast. A dose lowering technique was utilized adhering to the principles of ALARA. COMPARISON STUDY: 08/08/2018 FINDINGS: The lung bases are clear. The unenhanced liver, spleen, gallbladder, pancreas, kidneys, and adrenal glands are within normal limits. No bowel wall thickening or obstruction. The pelvic organs are unremarkable. No suspicious lytic or blastic osseous lesions. Chronic sigmoid diverticulosis. No evidence for acute diverticulitis. Bladder is midline. IMPRESSION: No acute posttraumatic abnormality. ACT 112: Negative or not required by law. The above report was generated using voice recognition software. It may contain grammatical, syntax or spelling errors. Electronically signed by: Luciano Longoria M.D. 09/15/2019 3:25 PM Dictated: 09/15/19 152 Transcribed: 09/15/[address] cervical spine wo con CT DOSE: HISTORY: Trauma fall TECHNIQUE: Multiaxial CT images of the cervical spine were performed and reformatted in the sagittal and coronal plane without the use of contrast. A dose lowering technique was utilized adhering to the principles of ALARA. COMPARISON: 02/28/2017 FINDINGS: No fractures. No subluxation. Prevertebral soft tissues and the C1-C2 interval are intact. No pneumothorax. Considerable degenerative change primarily at the C5-C7. Focal defect posterior arch C6 felt to be nonacute. IMPRESSION: Degenerative change. No acute process. ACT 112: Negative or not required by law. The above report was generated using voice recognition software. It may contain grammatical, syntax or spelling errors. Electronically signed by: Luciano Longoria M.D. 09/15/2019 3:17 PM Dictated: 09/15/191514 Transcribed: 09/15/191514 CT head/brain wo con CT DOSE: HISTORY: fall TECHNIQUE: Multiaxial CT images of the head were performed without the use of intravenous contrast. A dose lowering technique was utilized adhering to the principles of ALARA. Comparison: 07/12/2019 Findings: Stable right craniotomy. Craniotomy flap is aligned anatomically. Small chronic right sided subdural hematoma. This is unchanged from the prior exam. This is partially calcified and again consistent with a nonacute process. The ventricular system is midline. No acute intracranial hemorrhage. No midline shift. Chronic and postoperative change. No acute process. Impression: No acute intracranial abnormality. Chronic and postoperative change ACT 112: Negative or not required by law. The above report was generated using voice recognition software. It may contain grammatical, syntax or spelling errors. Electronically signed by: Luciano Longoria M.D. 09/15/2019 3:15 PM Dictated: 09/15/191511 Transcribed: 09/15/191511 XR shoulder LT min 2V routine CLINICAL HISTORY: fall trauma COMPARISON: None. DISCUSSION: Nondisplaced fracture humeral neck and lateral aspect humeral head. No evidence dislocation. There is no evidence for soft tissue swelling. IMPRESSION: Nondisplaced fracture lateral aspect humeral head and neck. ACT 112: Negative or not required by law. The above report was generated using voice recognition software. It may contain grammatical, syntax or spelling errors. Electronically signed by: Luciano Longoria M.D. 09/15/2019 4:21 PM Dictated: 09/15/191620 Transcribed: 09/15/191620 CT chest wo con CT DOSE: 3457.57 mGy.cm HISTORY: Trauma. Pain. fall, left sided pain TECHNIQUE: Multiaxial CT images of the chest were performed without contrast. A dose lowering technique was utilized adhering to the principles of ALARA. COMPARISON: 06/26/2018 FINDINGS: Chronic parenchymal prominence both lung bases. Moderate stable cardiomegaly. No evidence for pneumothorax. Nondisplaced cortical fracture left humeral head. Several stable mediastinal and hilar nodes as compared to the prior exam. There is no evidence for bulky adenopathy IMPRESSION: 1. Nondisplaced cortical fracture left humeral head. 2. Chronic change of the chest with no acute process. ACT 112: Negative or not required by law. The above report was generated using voice recognition software. It may contain grammatical, syntax or spelling errors. Electronically signed by: Luciano Longoria M.D. 09/15/2019 3:21 PM Dictated: 09/15/19 1518 Transcribed: 09/15/19 1518 Code Status & VTE Plan Code Status DNR/DNI VTE Prophylaxis Plan VTE Prophylaxis will be ordered: Yes PG Care Time/CCT Total # of Minutes Spent Total Time Spent with Patient: Total time spent is greater than 50% in coordination of care (as documented) at patient's floor/unit and/or counseling patient: Coding Level of Care Code 87296 Initial Inpt Care Lvl 3 Diagnoses Fall W19.XXXA Encounter type: initial encounter Fracture of head of left humerus S42.292A Encounter type: initial encounter Fracture type: closed Coronary artery disease I25.10 Coronary Disease-Associated Artery/Lesion type: [place] artery [place] vs. transplanted heart: [place] heart Associated angina: without angina Hypothyroidism E03.9 Hypothyroidism type: unspecified Chronic kidney disease N18.9 Chronic kidney disease stage: unspecified stage Anemia D64.9 Anemia type: unspecified type CHF (congestive heart failure) I50.9 Heart failure chronicity: unspecified Heart failure type: unspecified A-fib I48.91 Atrial fibrillation type: unspecified Diabetes 1.5, managed as type 2 E13.9 Anxiety F41.9 (1) Coronary artery disease Coronary Disease-Associated Artery/Lesion type: [place] artery [place] vs. transplanted heart: [place] heart Associated angina: without angina Qualified Code(s): I25.10 - Atherosclerotic heart disease of [place] coronary artery without angina pectoris (2) CHF (congestive heart failure) Heart failure chronicity: unspecified Heart failure type: unspecified Qualified Code(s): I50.9 - Heart failure, unspecified (3) Anemia Anemia type: unspecified type Qualified Code(s): D64.9 - Anemia, unspecified (4) A-fib Atrial fibrillation type: unspecified Qualified Code(s): I48.91 - Unspecified atrial fibrillation (5) Fracture of head of left humerus Encounter type: initial encounter Fracture type: closed Qualified Code(s): S42.292A - Other displaced fracture of upper end of left humerus, initial encounter for closed fracture (6) Hypothyroidism Hypothyroidism type: unspecified Qualified Code(s): E03.9 - Hypothyroidism, unspecified (7) Chronic kidney disease Chronic kidney disease stage: unspecified stage Qualified Code(s): N18.9 - Chronic kidney disease, unspecified (8) Fall Encounter type: initial encounter Qualified Code(s): W19.XXXA - Unspecified fall, initial encounter
[2019-09-15] MEDS: METOPROLOL TARTRATE 50 MG TAB PO SCH (21:35)
[2019-09-15] MEDS: APIXABAN 2.5 MG TAB PO SCH (21:35)
[2019-09-15] MEDS: PREGABALIN 100 MG CAP PO SCH (21:36)
[2019-09-15] MEDS: INSULIN ASPART 100 UNITS/ML 3 ML PEN SC SCH (21:36)
[2019-09-15] MEDS: INSULIN GLARGINE SOLOSTAR 100 UNITS/ML 3 ML PEN SQ SCH (21:39)
[2019-09-16] MEDS: LEVOTHYROXINE SODIUM 25 MCG TABLET PO SCH (05:04)
[2019-09-16] MEDS ORDERED: INSULIN LISPRO 7 UNIT SQ SCH (07:30)
[2019-09-16] MEDS: APIXABAN 2.5 MG TAB PO SCH ×2 (08:45→20:59)
[2019-09-16] MEDS: METOPROLOL TARTRATE 25 MG TAB PO SCH (08:46)
[2019-09-16] MEDS: FUROSEMIDE 80 MG TAB PO SCH (08:46)
[2019-09-16] MEDS: CLOPIDOGREL BISULFATE 75 MG TAB PO SCH (08:46)
[2019-09-16] MEDS: PREGABALIN 100 MG CAP PO SCH ×2 (08:51→21:02)
[2019-09-16] MEDS: INSULIN ASPART 100 UNITS/ML 3 ML PEN SC SCH ×4 (08:52→20:57)
[2019-09-16] MEDS: INSULIN GLARGINE SOLOSTAR 100 UNITS/ML 3 ML PEN SQ SCH ×2 (08:52→20:57)
[2019-09-16] MEDS: TRAMADOL HCL 50 MG TABLET PO PRN ×3 (10:00→19:14)
[2019-09-16] MEDS ORDERED: NON-FORMULARY MEDICATION (Insulin Lispro [Humalog Kwikpen Insulin] 10 UNITS) SQ SCH (11:30)
[2019-09-16] MEDS: ACETAMINOPHEN 500 MG TAB PO SCH ×2 (11:55→20:59)
[2019-09-16] MEDS ORDERED: INSULIN LISPRO 18 UNIT SQ SCH (16:30)
--- NOTE | 2019-09-16 19:07 | Hospitalist Progress Note ---
Date of Service September 16, 2019 Assessment & Plan (1) Fall: Status post mechanical fall resulting in fracture of left humeral head. - Neurochecks every 4 hours as patient with head trauma on apixaban, with known chronic subdural (2) Fracture of head of left humerus: Pain well controlled - Maintain arm immobilized in sling, - Use RAFIA acetaminophen - oxycodone 5mg q6h with cautious use - PT/OT - Vit D levels most recently WNL - F/U orthopedics on d/c to assess for fracture healing (3) Coronary artery disease: Patient with history of CAD status post multiple percutaneous interventions in the past. Presently with no chest pain Continue Plavix, metoprolol, praluent (4) Hypothyroidism: Chronic. TSH = 1.65 on 07/12/2019 Continue Synthroid (5) Chronic kidney disease: BUN = 50, creatinine = 2.06 which is near patient's baseline. She is making adequate urine, electrolytes are favorable Avoid nephrotoxic agents Renal dosing needed Continue to monitor BUN/creatinine/electrolytes/urine output (6) Anemia: Hgb = 11.6, HCT = 38.8. No active bleeding Continue to monitor (7) CHF (congestive heart failure): Patient with diastolic dysfunction. Presently no overt evidence of congestive failure. On home O2. Continue home medications, metoprolol, Lasix (8) A-fib: Patient with atrial fibrillation status post AV node ablation and dual- chamber pacemaker placement. Patient follows with cardiology, last seen on 08/07/2019. Ventricular paced therefore regular rhythm on auscultation. Continue apixaban 2.5 mg p.o. twice daily Continue metoprolol tartrate 25 mg p.o. every morning and 50 mg p.o. nightly (9) Diabetes 1.5, managed as type 2: Blood sugar = 184 A1c on 09/06/2019 = 7.2 We will hold patient's NovoLog Lantus 20 units subcu twice daily Continue Lyrica 200 mg p.o. twice daily Insulin sliding scale correction factor = 25, carb ratio = 9, goal blood sugar 100-140 Consistent carb diet as tolerated (10) Anxiety: Chronic. Stable. Continue buspirone Admission and Anticipated Discharge Date Admission Date: September 15, 2019 Anticipated date of discharge: 09/17/19 Subjective Patient reports possibly requiring equipment at home to manage. Pain is better controlled when she came in. She reports the spider on the ceiling was a real spider after given fentanyl and she does not believe this was an hallucination and her saw it too. Acetaminophen working the best for pain. Tramadol doesn't really make a difference. Discussed use of oxycodone and side effects of constipation, confusion and increased risk of falling. 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 She reports taking lower dose of apixaban due to her own personal concerns regarding her chronic subdural and does not wish to increase at this time. Review of Systems Review of Systems: All systems reviewed & are unremarkable except as noted in HPI & below Physical Exam Constitutional: well developed and well nourished; no acute distress Eyes: + anicteric sclerae; normal pupil size ENMT: external ear and nose normal, oropharynx normal Neck: trachea midline, no thyromegaly Respiratory: normal respiratory effort, lungs clear to auscultation Cardiovascular: Rate/Rhythm: regular rate and regular rhythm Heart Sounds: no murmur Gastrointestinal (Abdomen): normal bowel sounds, soft, nontender, no hepatosplenomegaly Musculoskeletal: no cyanosis or clubbing, extremities motor strength 5/5 (left arm not fully examined, NV intact distal to #) Skin: no rashes, warm and dry Neurologic: moves all extremities and awake; no focal motor deficits and not confused Speech / Cognition: normal speech Motor/Sensory: no tremor Psychiatric: A+Ox3, euthymic affect Results & Data ([facility]) Vital Signs (Past 12 Hours) Vital Signs Temp Pulse Resp BP Pulse Ox 09/16/19 15:22 36.3 C L 69 17 102/64 97 09/16/19 07:08 36.5 C 70 22 119/69 98 PG Care Time/CCT Total # of Minutes Spent Total Time Spent with Patient: Total time spent is greater than 50% in coordination of care (as documented) at patient's floor/unit and/or counseling patient: Coding Level of Care Code 34600 Subseq Hosp Care Lvl 2 Diagnoses Fall W19.XXXA Encounter type: initial encounter Fracture of head of left humerus S42.292A Encounter type: initial encounter Fracture type: closed Coronary artery disease I25.10 Associated angina: without angina Coronary Disease-Associated Artery/Lesion type: [place] artery [place] vs. transplanted heart: [place] heart Hypothyroidism E03.9 Hypothyroidism type: unspecified Chronic kidney disease N18.9 Chronic kidney disease stage: unspecified stage Anemia D64.9 Anemia type: unspecified type CHF (congestive heart failure) I50.9 Heart failure chronicity: unspecified Heart failure type: unspecified A-fib I48.91 Atrial fibrillation type: unspecified Diabetes 1.5, managed as type 2 E13.9 Anxiety F41.9 (1) Coronary artery disease Associated angina: without angina Coronary Disease-Associated Artery/Lesion type: [place] artery [place] vs. transplanted heart: [place] heart Qualified Code(s): I25.10 - Atherosclerotic heart disease of [place] coronary artery without angina pectoris (2) CHF (congestive heart failure) Heart failure chronicity: unspecified Heart failure type: unspecified Qualified Code(s): I50.9 - Heart failure, unspecified (3) Anemia Anemia type: unspecified type Qualified Code(s): D64.9 - Anemia, unspecified (4) A-fib Atrial fibrillation type: unspecified Qualified Code(s): I48.91 - Unspecified atrial fibrillation (5) Fracture of head of left humerus Encounter type: initial encounter Fracture type: closed Qualified Code(s): S42.292A - Other displaced fracture of upper end of left humerus, initial encounter for closed fracture (6) Hypothyroidism Hypothyroidism type: unspecified Qualified Code(s): E03.9 - Hypothyroidism, unspecified (7) Chronic kidney disease Chronic kidney disease stage: unspecified stage Qualified Code(s): N18.9 - Chronic kidney disease, unspecified (8) Fall Encounter type: initial encounter Qualified Code(s): W19.XXXA - Unspecified fall, initial encounter
[2019-09-16] MEDS: METOPROLOL TARTRATE 50 MG TAB PO SCH (20:58)
[2019-09-17] MEDS: TRAMADOL HCL 50 MG TABLET PO PRN (03:05)
[2019-09-17 06:05] LABS: BUN Creatinine Ratio 26.3 (10-20); Calcium 8.4 mg/dl (8.5-10.1); Creatinine Clr Calc Pharmacy 21.4 ml/min; Est GFR (Non-African American) 20.7; Potassium 3.8 mmol/L (3.5-5.1)
[2019-09-17 06:18] LABS: Basophils # (auto) 0.02 K/uL (0-0.2); Basophils % (auto) 0.4 %; Eosinophils # (auto) 0.13 K/uL (0-0.5); Eosinophils % (auto) 2.4 %; Hematocrit (blood only) 33.3 % (37-47); Hemoglobin 10.1 g/dL (12.0-16.0); Immature Granulocytes # (auto) 0.03 K/uL (0.00-0.02); Immature Granulocytes % (auto) 0.6 %; Lymphocytes # (auto) 0.88 K/uL (1.2-3.4); Lymphocytes % (auto) 16.5 %; Mean Corpuscular Hemoglobin 28.1 pg (25-34); Mean Corpuscular Hgb Conc 30.3 g/dL (32-36); Mean Corpuscular Volume 92.5 fL (80-100); Mean Platelet Volume 12.7 fL (7.4-10.4); Monocytes # (auto) 0.52 K/uL (0.11-0.59); Monocytes % (auto) 9.8 %; Neutrophils # (auto) 3.75 K/uL (1.4-6.5); Neutrophils % (auto) 70.3 %; Platelet Count 104 K/uL (130-400); Platelet Estimate Decreased (Normal); RDW Coefficient of Variation 16.6 % (11.5-14.5); RDW Standard Deviation 55.5 fL (36.4-46.3); White Blood Count 5.33 K/uL (4.8-10.8)
[2019-09-17] MEDS: LEVOTHYROXINE SODIUM 25 MCG TABLET PO SCH (06:19)
[2019-09-17] MEDS: APIXABAN 2.5 MG TAB PO SCH ×2 (08:37→21:10)
[2019-09-17] MEDS: FUROSEMIDE 80 MG TAB PO SCH (08:40)
[2019-09-17] MEDS: METOPROLOL TARTRATE 25 MG TAB PO SCH (08:42)
[2019-09-17] MEDS: PREGABALIN 100 MG CAP PO SCH ×2 (08:46→21:06)
[2019-09-17] MEDS: CLOPIDOGREL BISULFATE 75 MG TAB PO SCH (08:48)
[2019-09-17] MEDS: ACETAMINOPHEN 500 MG TAB PO SCH ×3 (08:50→21:07)
[2019-09-17] MEDS: INSULIN ASPART 100 UNITS/ML 3 ML PEN SC SCH ×4 (08:58→21:04)
[2019-09-17] MEDS: INSULIN GLARGINE SOLOSTAR 100 UNITS/ML 3 ML PEN SQ SCH ×2 (09:01→21:04)
--- NOTE | 2019-09-17 11:07 | Hospitalist Progress Note ---
Date of Service September 17, 2019 Assessment & Plan (1) Fall: Status post mechanical fall resulting in fracture of left humeral head. CT head with old SDH but nothing acute. C-spine CT without cervical Fx. Fall was accidental - no prodromal symptoms such as dizziness, lightheadedness, chest pain, etc. (2) Fracture of head of left humerus: 2nd to fall. seen by [facility] orthopedics today - nonoperative management. Cont sling immobilization. Tylenol 1gm TID scheduled for pain. oxycodone prn cautiously due to propensity for confusion with narcotics. PT/OT advising SNF placement for rehab. Recent 25-OH Vit D level wnl. (3) Coronary artery disease: Patient with history of CAD status post multiple percutaneous interventions in the past. Continue Plavix, metoprolol, etc (4) Hypothyroidism: TSH = 1.65 on 07/12/2019 Continue Synthroid (5) Chronic kidney disease: BUN = 50, creatinine = 2.06 which is near patient's baseline. CKD stage 4. (6) Anemia: Hgb = 11.6, HCT = 38.8. stable, follow (7) CHF (congestive heart failure): chronic diastolic CHF - compensated. Continue home medications including metoprolol, Lasix had peripheral edema of legs/ankles but otherwise appears compensated (8) A-fib: paced on EKG and clinically Continue apixaban 2.5 mg p.o. twice daily Continue metoprolol tartrate 25 mg p.o. every morning and 50 mg p.o. nightly (9) Diabetes 1.5, managed as type 2: A1c on 09/06/2019 = 7.2 cont basal-bolus insulin control satisfactory at this time (10) Anxiety: Continue buspirone (11) Subdural hematoma: chronic, old stable on CT head this admission takes chronic anticoagulation (eliquis 2.5mg BID) - continue albeit cautiously (12) Constipation: add senna add miralax (13) Chronic respiratory failure with hypoxia: stable on home O2 amount dispo planning - rehab post-d/c updated continue PT/OT Admission and Anticipated Discharge Date Admission Date: September 15, 2019 Anticipated date of discharge: 09/18/19 Subjective only complaints are that of left shoulder pain and constipation. no bowel movement several days. she IS willing to attend inpatient rehab if necessary in light of her left shoulder fracture. edema of feet is at baseline. eating fair. denies new issues. Review of Systems Constitutional: no fever Respiratory: no cough Cardiovascular: no chest pain and no orthopnea Gastrointestinal: no abdominal pain Neurologic: no dizziness Physical Exam Constitutional: + obese and + altered mental status (slightly confused ); no acute distress ENMT: external ear and nose normal, oropharynx normal Respiratory: normal respiratory effort, lungs clear to auscultation Cardiovascular: Rate/Rhythm: regular rate and regular rhythm Heart Sounds: normal S1 and normal S2 Vessels: posterior tibial pulses present and dorsalis pedis pulses present; no JVD Extremities: + edema (1-2+ b/l ) Gastrointestinal (Abdomen): Inspection/Auscultation: + abdomen distended and normal bowel sounds Percussion/Palpation: abdomen nontender and no hepatosplenomegaly Musculoskeletal: left shoulder in sling immobilization; handgrip on left 5/5; sensation intact to light touch left hand Psychiatric: Orientation: alert, oriented to person and oriented to place Results & Data ([facility]) Vital Signs (Past 12 Hours) Vital Signs Temp Pulse Pulse Resp BP Pulse Ox 09/17/19 07:40 36.4 C L 70 14 130/68 93 09/16/19 23:37 36.3 C L 70 20 150/70 H 96 Laboratory Results Laboratory Results - last 24 hr 09/16/19 09/16/19 09/16/19 12:33 16:58 20:20 WBC RBC Hgb Hct MCV MCH MCHC RDW Std Deviation RDW Coeff of Nhi Plt Count MPV Immature Gran % (Auto) Neut % (Auto) Lymph % (Auto) King % (Auto) Eos % (Auto) Baso % (Auto) Immature Gran # (Auto) Neut # (Auto) Lymph # (Auto) King # (Auto) Eos # (Auto) Baso # (Auto) Platelet Estimate Sodium Potassium Chloride Carbon Dioxide Anion Gap BUN Creatinine Est Cr Clr Drug Dosing Est GFR ( Amer) Est GFR (Non-Af Amer) BUN/Creatinine Ratio Glucose POC Glucose 150 H 177 H 153 H Calcium 09/17/19 09/17/19 09/17/19 04:47 04:47 08:21 WBC 5.33 RBC 3.60 L Hgb 10.1 L Hct 33.3 L MCV 92.5 MCH 28.1 MCHC 30.3 L RDW Std Deviation 55.5 H RDW Coeff of Nhi 16.6 H Plt Count 104 L MPV 12.7 H Immature Gran % (Auto) 0.6 Neut % (Auto) 70.3 Lymph % (Auto) 16.5 King % (Auto) 9.8 Eos % (Auto) 2.4 Baso % (Auto) 0.4 Immature Gran # (Auto) 0.03 H Neut # (Auto) 3.75 Lymph # (Auto) 0.88 L King # (Auto) 0.52 Eos # (Auto) 0.13 Baso # (Auto) 0.02 Platelet Estimate Decreased L Sodium 142 Potassium 3.8 Chloride 106 Carbon Dioxide 31 Anion Gap 5.0 BUN 58 H Creatinine 2.21 H Est Cr Clr Drug Dosing 21.4 Est GFR ( Amer) 24.0 Est GFR (Non-Af Amer) 20.7 BUN/Creatinine Ratio 26.3 H Glucose 200 H POC Glucose 169 H Calcium 8.4 L PG Care Time/CCT Total # of Minutes Spent Total Time Spent with Patient: Total time spent is greater than 50% in coordination of care (as documented) at patient's floor/unit and/or counseling patient: Coding Level of Care Code 94928 Subseq Hosp Care Lvl 2 Diagnoses Fall W19.XXXA Encounter type: initial encounter Fracture of head of left humerus S42.292A Encounter type: initial encounter Fracture type: closed Coronary artery disease I25.10 Associated angina: without angina Coronary Disease-Associated Artery/Lesion type: lummi artery [place] vs. transplanted heart: lummi heart Hypothyroidism E03.9 Hypothyroidism type: unspecified Chronic kidney disease N18.9 Chronic kidney disease stage: unspecified stage Anemia D64.9 Anemia type: unspecified type CHF (congestive heart failure) I50.9 Heart failure chronicity: unspecified Heart failure type: unspecified A-fib I48.91 Atrial fibrillation type: unspecified Diabetes 1.5, managed as type 2 E13.9 Anxiety F41.9 Subdural hematoma S06.5X9A Constipation K59.00 Chronic respiratory failure with hypoxia J96.11 (1) Coronary artery disease Associated angina: without angina Coronary Disease-Associated Artery/Lesion type: lummi artery [place] vs. transplanted heart: lummi heart Qualified Code(s): I25.10 - Atherosclerotic heart disease of lummi coronary artery without angina pectoris (2) CHF (congestive heart failure) Heart failure chronicity: unspecified Heart failure type: unspecified Qualified Code(s): I50.9 - Heart failure, unspecified (3) Anemia Anemia type: unspecified type Qualified Code(s): D64.9 - Anemia, unspecified (4) A-fib Atrial fibrillation type: unspecified Qualified Code(s): I48.91 - Unspecified atrial fibrillation (5) Fracture of head of left humerus Encounter type: initial encounter Fracture type: closed Qualified Code(s): S42.292A - Other displaced fracture of upper end of left humerus, initial encounter for closed fracture (6) Hypothyroidism Hypothyroidism type: unspecified Qualified Code(s): E03.9 - Hypothyroidism, unspecified (7) Chronic kidney disease Chronic kidney disease stage: unspecified stage Qualified Code(s): N18.9 - Chronic kidney disease, unspecified (8) Fall Encounter type: initial encounter Qualified Code(s): W19.XXXA - Unspecified fall, initial encounter
[2019-09-17] MEDS: OXYCODONE HCL IR 5 MG TAB (IMMEDIATE RELEASE) PO PRN (12:12)
[2019-09-17] MEDS: POLYETHYLENE (MIRALAX) 17 GM PACK PO SCH (12:13)
--- NOTE | 2019-09-17 14:18 | Orthopedic Consultation ---
Date of Consultation September 17, 2019 Assessment & Plan (1) Proximal humerus fracture: pt had moderately displaced left proximal humerus fx. For now, i would recommend sling, and nwb. Recommend xrays in one week in our office with Dr Erwin. No surgery needed at this time. D/W pt at length for about 15minutes regarding her case. She was very happy with the plan. Sign off for now. History of Present Illness Reason for Consultation: left shoulder pain Attending Physician: Alfredo Goldberg History of Present Illness Pleasant female who fell onto left shoulder. Has a multitude of medical problems. Pt comfortable now with sling in place. Pt is RHD. pt is diabetic and on eliquis. Allergies Allergy/AdvReac Type Severity Reaction Status Date / Time eptifibatide Allergy Severe ANAPHYLAXIS Verified 09/15/19 14:24 hornet venom Allergy Severe WASP VENOM Verified 09/15/19 14:24 PROTEIN-ANAPHYLAXIS levofloxacin [From Levaquin] Allergy Severe Hives Verified 09/15/19 14:24 atorvastatin Allergy Unknown MUSCLE PAIN Verified 09/15/19 14:24 ezetimibe Allergy Unknown MUSCLE PAIN Verified 09/15/19 14:24 simvastatin Allergy Unknown MUSCLE PAIN Verified 09/15/19 14:24 amlodipine AdvReac Severe Nausea Verified 09/15/19 14:24 azithromycin AdvReac Intermediate Palpitation Verified 09/15/19 14:24 s warfarin AdvReac Intermediate EXTREME Verified 09/15/19 14:24 BLEEDING TIMES codeine AdvReac Mild VOMITING Verified 09/15/19 14:24 gemfibrozil AdvReac Mild NAUSEA Verified 09/15/19 14:24 meperidine AdvReac Mild VOMITING Verified 09/15/19 14:24 ondansetron AdvReac Mild vomiting Verified 09/15/19 14:24 ranitidine [From Zantac] AdvReac Mild dyspepsia Verified 09/15/19 14:24 cortisone AdvReac Unknown INCREASES Verified 09/15/19 14:24 SUGAR AND VOMITING? hydralazine AdvReac Unknown VOMITING Verified 09/15/19 14:24 ibuprofen AdvReac Unknown VOMITING Verified 09/15/19 14:24 AND DIARRHEA iodine AdvReac Unknown SHELLFISH Verified 09/15/19 14:24 - VOMITING shellfish derived AdvReac Unknown VOMITING Verified 09/15/19 14:24 Sulfa (Sulfonamide AdvReac Unknown VOMITING Verified 09/15/19 14:24 Antibiotics) Home Medications Home Medications Medication Instructions Recorded Confirmed Type ascorbic acid (vitamin C) [Vitamin 1 g PO QAM 06/20/18 09/15/19 History C] ergocalciferol (vitamin D2) 50,000 unit PO MONTHLY 06/20/18 09/15/19 History [Vitamin D2] multivitamin 1 tab PO QAM 06/20/18 09/15/19 History pregabalin [Lyrica] 200 mg PO BID 01/18/19 09/15/19 History furosemide [Lasix] 40 mg PO HS PRN 02/12/19 09/15/19 History nitroglycerin 0.4 mg sublingual 0.4 mg SL Q5M PRN #25 tab 02/26/19 09/15/19 History tablet insulin lispro [Humalog KwikPen 11 unit SUBCUT QDB 04/22/19 09/15/19 History Insulin] insulin lispro [Humalog KwikPen 18 unit SUBCUT QDL 04/22/19 09/15/19 History Insulin] insulin lispro [Humalog KwikPen 28 unit SUBCUT QDD 04/22/19 09/15/19 History Insulin] levothyroxine [Synthroid] 25 mcg PO QAM 06/04/19 09/15/19 History Praluent Pen 75 mg SQ Q14D 07/12/19 09/15/19 History buspirone 10 mg PO TID 07/12/19 09/15/19 History clopidogrel [Plavix] 75 mg PO QAM 07/12/19 09/15/19 History furosemide [Lasix] 80 mg PO DAILY 07/12/19 09/15/19 History metoprolol tartrate [Lopressor] 50 mg PO UD 07/12/19 09/15/19 History ipratropium-albuterol 3 ml NEB QIDR PRN #90 ml 07/17/19 09/15/19 Rx insulin glargine 100 unit/mL (3 30 units SUBCUT BID ml 08/07/19 09/15/19 History mL) subcutaneous pen apixaban [Eliquis] 2.5 mg PO BID 09/15/19 09/15/19 History Patient History Medical History Angina pectoris Atrial fibrillation CAD (coronary artery disease) cardiac stents x 6; most recent: AWILDA x2 (mid/distal RCA) 07/06/18* Chronic kidney disease, stage 4 (severe) CKD (chronic kidney disease) stage 3, GFR 30-59 ml/min COPD with acute exacerbation Diabetes (Chronic) Diabetic foot ulcer associated with type 2 diabetes mellitus (Acute) Diastolic CHF 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) Dyslipidemia HTN (hypertension) (Chronic) Hypertrophic cardiomyopathy apical variant Hypothyroidism Lung cancer Myocardial infarction X4 Peripheral neuropathy (Chronic) Proteinuria (Chronic) Respiratory failure 2-3L O2 Subdural hematoma Thrombocytopenia chronic; baseline platelets low 100's Surgical History History of cardioversion MULTIPLE History of lung surgery PARTIAL LEFT LOBECTOMY (2013) Hx of brain surgery 2017 S/P FALL/INJURY; SUBSEQUENT BLOOD CLOT EVACUATION S/P cardiac catheterization 7 TOTAL; CARDIAC STENTS X6 S/P hysterectomy S/P tonsillectomy Family History Father Cancer Heart disease Diabetes Mother Stroke Hypertension Grandmother (Maternal) Coronary heart disease Stroke Family/Other Multiple sclerosis Brother Coronary heart disease Grandfather (Maternal) Heart disease Grandfather (Paternal) Diabetes Aunt Muscular dystrophy Other Gallbladder disease Kidney stones Social History Preferred Language: Jordanian Communication Ability: Effective Mobile Developer Required: No Beliefs That Will Affect Care: None marital status: Current Living Situation: Spouse 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: Retired/Disabled Other Information That Helps Us Care for You: No Feels Safe at Home: Yes Safety Concerns: Feels Safe At This Time Smoking Status: Never smoker Do You Dip or Chew Tobacco: No ; Second Hand Exposure: No ; Hx Alcohol Use: No Hx Substance Use: No Review of Systems Review of Systems: All systems reviewed & are unremarkable except as noted in HPI & below Physical Exam Constitutional: WD/WN, vitals as above Musculoskeletal: Shoulder: + ecchymosis and + limited ROM Results & Data ([facility]) Vital Signs (Past 12 Hours) Vital Signs Temp Pulse Resp BP Pulse Ox 09/17/19 07:40 36.4 C L 70 14 130/68 93
[2019-09-17] MEDS: SENNA 8.6 MG TAB PO SCH (14:34)
[2019-09-17] MEDS: METOPROLOL TARTRATE 50 MG TAB PO SCH (21:09)
[2019-09-18] MEDS: LEVOTHYROXINE SODIUM 25 MCG TABLET PO SCH (05:24)
[2019-09-18 06:08] LABS: Mean Corpuscular Hgb Conc 30.2 g/dL (32-36); Mean Platelet Volume 13.5 fL (7.4-10.4); Nucleated RBC # (auto) 0.03 K/uL (0-0); Nucleated RBC % (auto) 0.7 %; Platelet Count 106 K/uL (130-400)
[2019-09-18 06:09] LABS: Hematocrit (blood only) 34.4 % (37-47); Hemoglobin 10.4 g/dL (12.0-16.0); Mean Corpuscular Hemoglobin 27.7 pg (25-34); Mean Corpuscular Volume 91.7 fL (80-100); Platelet Estimate Decreased (Normal); RDW Coefficient of Variation 16.6 % (11.5-14.5); RDW Standard Deviation 55.5 fL (36.4-46.3); Red Blood Count 3.75 M/uL (4.2-5.4); White Blood Count 4.68 K/uL (4.8-10.8)
[2019-09-18 06:22] LABS: BUN Creatinine Ratio 27.2 (10-20); Calcium 8.4 mg/dl (8.5-10.1); Creatinine Clr Calc Pharmacy 20.2 ml/min; Est GFR (African American) 22.4; Est GFR (Non-African American) 19.3
[2019-09-18] MEDS: POLYETHYLENE (MIRALAX) 17 GM PACK PO SCH (08:54)
[2019-09-18] MEDS: FUROSEMIDE 80 MG TAB PO SCH (08:54)
[2019-09-18] MEDS: APIXABAN 2.5 MG TAB PO SCH ×2 (08:54→20:53)
[2019-09-18] MEDS: CLOPIDOGREL BISULFATE 75 MG TAB PO SCH (08:54)
[2019-09-18] MEDS: SENNA 8.6 MG TAB PO SCH (08:54)
[2019-09-18] MEDS: INSULIN GLARGINE SOLOSTAR 100 UNITS/ML 3 ML PEN SQ SCH ×2 (08:55→20:59)
[2019-09-18] MEDS: METOPROLOL TARTRATE 25 MG TAB PO SCH (08:55)
[2019-09-18] MEDS: INSULIN ASPART 100 UNITS/ML 3 ML PEN SC SCH ×4 (08:58→21:01)
[2019-09-18] MEDS: ACETAMINOPHEN 500 MG TAB PO SCH ×3 (08:59→20:53)
[2019-09-18] MEDS: PREGABALIN 100 MG CAP PO SCH ×2 (09:03→20:52)
[2019-09-18] MEDS: OXYCODONE HCL IR 5 MG TAB (IMMEDIATE RELEASE) PO PRN ×2 (09:59→18:43)
--- NOTE | 2019-09-18 15:14 | Hospitalist Progress Note ---
Date of Service September 18, 2019 Assessment & Plan (1) Fracture of head of left humerus: 2nd to fall. Cont sling immobilization. Tylenol 1gm TID scheduled for pain. oxycodone prn cautiously due to propensity for confusion with narcotics. PT/OT advising SNF placement for rehab. Recent 25-OH Vit D level wnl. - Seen by ortho. Non-operative management at this time. Follow up with Dr. Erwin in 1 week in clinic for repeat x-rays. - Presently working on pain control. - Willing to go to rehab. CM informed. (2) Fall: Status post mechanical fall resulting in fracture of left humeral head. CT head with old SDH but nothing acute. C-spine CT without cervical Fx. Fall was accidental - no prodromal symptoms such as dizziness, lightheadedness, chest pain, etc. (3) Coronary artery disease: Patient with history of CAD status post multiple percutaneous interventions in the past. Continue Plavix, metoprolol, etc (4) Hypothyroidism: TSH = 1.65 on 07/12/2019 Continue Synthroid (5) Chronic kidney disease: BUN = 50, creatinine = 2.06 which is near patient's baseline. CKD stage 4. - Cr is 2.3 today. Will monitor closely given she is on chronic diuretics. (6) Anemia: Hgb = 11.6, HCT = 38.8. stable, follow (7) CHF (congestive heart failure): chronic diastolic CHF - compensated. Continue home medications including metoprolol, Lasix - Has peripheral edema of legs/ankles but otherwise appears compensated. Baseline weight appears to ~90 kg. Asked RN to get standing weight today & daily. (8) A-fib: paced on EKG and clinically Continue apixaban 2.5 mg p.o. twice daily Continue metoprolol tartrate 25 mg p.o. every morning and 50 mg p.o. nightly (9) Diabetes 1.5, managed as type 2: A1c on 09/06/2019 = 7.2 cont basal-bolus insulin - Generally 110-180 in the last 24 hours. Will tighten carb coverage slightly. (10) Anxiety: Continue buspirone (11) Subdural hematoma: chronic, old stable on CT head this admission takes chronic anticoagulation (eliquis 2.5mg BID) - continue albeit cautiously (12) Constipation: add senna add miralax (13) Chronic respiratory failure with hypoxia: stable on home O2 amount Admission and Anticipated Discharge Date Admission Date: September 15, 2019 Anticipated date of discharge: 09/18/19 Subjective Left arm pain, but otherwise doing well. No major concerns/complaints about breathing or chest pain. Mild swelling in the legs. Reports no fevers/chills, chest pain, shortness of breath, abdominal pain, nausea, or vomiting. Physical Exam Constitutional: WD/WN, vitals as above Eyes: EOM intact bilaterally; no conjunctival abnormality ENMT: external ear and nose normal, oropharynx normal Neck: trachea midline, no thyromegaly normal visual inspection Respiratory: normal respiratory effort, lungs clear to auscultation no respiratory distress Cardiovascular: Rate/Rhythm: regular rate and regular rhythm Heart Sounds: normal S1 and normal S2 Extremities: + edema (1+ bilateral) Gastrointestinal (Abdomen): Inspection/Auscultation: abdomen normal to inspection; abdomen not distended Musculoskeletal: no cyanosis or clubbing, extremities motor strength 5/5 Skin: no rashes, warm and dry Neurologic: moves all extremities and awake Psychiatric: Orientation: alert, oriented to person and cooperative Results & Data ([facility]) Vital Signs (Past 12 Hours) Vital Signs Temp Pulse Resp BP Pulse Ox 09/18/19 07:31 36.3 C L 76 16 132/69 98 PG Care Time/CCT Total # of Minutes Spent Total Time Spent with Patient: Total time spent is greater than 50% in coordination of care (as documented) at patient's floor/unit and/or counseling patient: Coding Level of Care Code 72996 Subseq Hosp Care Lvl 3 Diagnoses Fracture of head of left humerus S42.292A Encounter type: initial encounter Fracture type: closed Fall W19.XXXA Encounter type: initial encounter Coronary artery disease I25.10 Coronary Disease-Associated Artery/Lesion type: [place] artery [place] vs. transplanted heart: [place] heart Associated angina: without angina Hypothyroidism E03.9 Hypothyroidism type: unspecified Chronic kidney disease N18.9 Chronic kidney disease stage: unspecified stage Anemia D64.9 Anemia type: unspecified type CHF (congestive heart failure) I50.9 Heart failure chronicity: unspecified Heart failure type: unspecified A-fib I48.91 Atrial fibrillation type: unspecified Diabetes 1.5, managed as type 2 E13.9 Anxiety F41.9 Subdural hematoma S06.5X9A Constipation K59.00 Chronic respiratory failure with hypoxia J96.11 (1) Fall Encounter type: initial encounter Qualified Code(s): W19.XXXA - Unspecified fall, initial encounter (2) Fracture of head of left humerus Encounter type: initial encounter Fracture type: closed Qualified Code(s): S42.292A - Other displaced fracture of upper end of left humerus, initial encounter for closed fracture (3) Coronary artery disease Coronary Disease-Associated Artery/Lesion type: [place] artery [place] vs. transplanted heart: [place] heart Associated angina: without angina Qualified Code(s): I25.10 - Atherosclerotic heart disease of [place] coronary artery without angina pectoris (4) Hypothyroidism Hypothyroidism type: unspecified Qualified Code(s): E03.9 - Hypothyroidism, unspecified (5) Chronic kidney disease Chronic kidney disease stage: unspecified stage Qualified Code(s): N18.9 - Chronic kidney disease, unspecified (6) Anemia Anemia type: unspecified type Qualified Code(s): D64.9 - Anemia, unspecified (7) CHF (congestive heart failure) Heart failure chronicity: unspecified Heart failure type: unspecified Qualified Code(s): I50.9 - Heart failure, unspecified (8) A-fib Atrial fibrillation type: unspecified Qualified Code(s): I48.91 - Unspecified atrial fibrillation
[2019-09-18] MEDS: METOPROLOL TARTRATE 50 MG TAB PO SCH (20:53)
[2019-09-19] MEDS: LEVOTHYROXINE SODIUM 25 MCG TABLET PO SCH (05:30)
[2019-09-19] MEDS: FUROSEMIDE 80 MG TAB PO SCH (07:54)
[2019-09-19] MEDS: METOPROLOL TARTRATE 25 MG TAB PO SCH (07:54)
[2019-09-19] MEDS: CLOPIDOGREL BISULFATE 75 MG TAB PO SCH (07:54)
[2019-09-19] MEDS: APIXABAN 2.5 MG TAB PO SCH (07:55)
[2019-09-19] MEDS: POLYETHYLENE (MIRALAX) 17 GM PACK PO SCH (07:55)
[2019-09-19] MEDS: SENNA 8.6 MG TAB PO SCH (07:55)
[2019-09-19] MEDS: ACETAMINOPHEN 500 MG TAB PO SCH (07:55)
[2019-09-19] MEDS: PREGABALIN 100 MG CAP PO SCH (07:59)
[2019-09-19] MEDS: INSULIN GLARGINE SOLOSTAR 100 UNITS/ML 3 ML PEN SQ SCH (07:59)
[2019-09-19] MEDS: INSULIN ASPART 100 UNITS/ML 3 ML PEN SC SCH ×2 (08:01→12:59)
[2019-09-19 08:56] LABS: BUN Creatinine Ratio 30.8 (10-20); Calcium 8.9 mg/dl (8.5-10.1); Creatinine Clr Calc Pharmacy 21.3 ml/min; Est GFR (African American) 23.4; Est GFR (Non-African American) 20.2
--- NOTE | 2019-09-19 10:55 | Discharge Summary ---
Date of Service September 19, 2019 Admission HPI Per Admitting Provider Maureen Hagen is a pleasant 71-year-old female with multiple medical problems, most notably A. fib on apixaban, CAD/CKD/COPD/diabetes, presenting after mechanical fall at home resulting in a left humeral head fracture. Patient reports she was in her home this afternoon in her usual state of health when her phone rang. She saw that it was her son who typically does not call during that time of day and she was in a bit of a hurry to answer. She tripped over her oxygen tubing and fell into the wall. She hit her head and left shoulder. She did not lose consciousness, denies chest pain/shortness of cristina ath/palpitations/seizure activity. Was unable to get up secondary to pain therefore 911 was called. Presently she is complaining of left shoulder pain as well as "a spider on the ceiling" which showed up after she received pain medication. Otherwise, no complaints. ER course: Tylenol, fentanyl, Zofran, Phenergan Discharge Exam Constitutional + obese and + altered mental status (slightly confused ); no acute distress ENMT external ear and nose normal, oropharynx normal Respiratory normal respiratory effort, lungs clear to auscultation Cardiovascular Rate/Rhythm: regular rate and regular rhythm Heart Sounds: normal S1 and normal S2 Vessels: posterior tibial pulses present and dorsalis pedis pulses present; no JVD Extremities: + edema (1-2+ b/l ) Gastrointestinal (Abdomen) Inspection/Auscultation: + abdomen distended and normal bowel sounds Percussion/Palpation: abdomen nontender and no hepatosplenomegaly Psychiatric Orientation: alert, oriented to person and oriented to place Discharge Data Allergies Allergy/AdvReac Type Severity Reaction Status Date / Time eptifibatide Allergy Severe ANAPHYLAXIS Verified 09/15/19 14:24 hornet venom Allergy Severe WASP VENOM Verified 09/15/19 14:24 PROTEIN-ANAPHYLAXIS levofloxacin [From Levaquin] Allergy Severe Hives Verified 09/15/19 14:24 atorvastatin Allergy Unknown MUSCLE PAIN Verified 09/15/19 14:24 ezetimibe Allergy Unknown MUSCLE PAIN Verified 09/15/19 14:24 simvastatin Allergy Unknown MUSCLE PAIN Verified 09/15/19 14:24 amlodipine AdvReac Severe Nausea Verified 09/15/19 14:24 azithromycin AdvReac Intermediate Palpitation Verified 09/15/19 14:24 s warfarin AdvReac Intermediate EXTREME Verified 09/15/19 14:24 BLEEDING TIMES codeine AdvReac Mild VOMITING Verified 09/15/19 14:24 gemfibrozil AdvReac Mild NAUSEA Verified 09/15/19 14:24 meperidine AdvReac Mild VOMITING Verified 09/15/19 14:24 ondansetron AdvReac Mild vomiting Verified 09/15/19 14:24 ranitidine [From Zantac] AdvReac Mild dyspepsia Verified 09/15/19 14:24 cortisone AdvReac Unknown INCREASES Verified 09/15/19 14:24 SUGAR AND VOMITING? hydralazine AdvReac Unknown VOMITING Verified 09/15/19 14:24 ibuprofen AdvReac Unknown VOMITING Verified 09/15/19 14:24 AND DIARRHEA iodine AdvReac Unknown SHELLFISH Verified 09/15/19 14:24 - VOMITING shellfish derived AdvReac Unknown VOMITING Verified 09/15/19 14:24 Sulfa (Sulfonamide AdvReac Unknown VOMITING Verified 09/15/19 14:24 Antibiotics) Consultations 09/15/19 17:20 ED Decision to Admit Stat 09/17/19 10:48 Consult Orthopedic Surgery Routine Ordered Studies 09/15/19 13:50 CT abd pelvis wo con Stat CT cervical spine wo con Stat CT head/brain wo con Stat 09/15/19 13:56 CT chest wo con Stat Hospital Course (1) Fall: Status post mechanical fall resulting in fracture of left humeral head. CT head with old SDH but nothing acute. C-spine CT without cervical Fx. Fall was accidental - no prodromal symptoms such as dizziness, lightheadedness, chest pain, etc. (2) Fracture of head of left humerus: 2nd to fall. seen by [facility] [place] orthopedics today - nonoperative management. Cont sling immobilization. Tylenol 1gm TID scheduled for pain. oxycodone prn cautiously due to propensity for confusion with narcotics. PT/OT advising SNF placement for rehab. Recent 25-OH Vit D level wnl. (3) Coronary artery disease: Patient with history of CAD status post multiple percutaneous interventions in the past. Continue Plavix, metoprolol, etc (4) Hypothyroidism: TSH = 1.65 on 07/12/2019 Continue Synthroid (5) Chronic kidney disease: BUN = 50, creatinine = 2.06 which is near patient's baseline. CKD stage 4. (6) Anemia: Hgb = 11.6, HCT = 38.8. stable, follow (7) CHF (congestive heart failure): chronic diastolic CHF - compensated. Continue home medications including metoprolol, Lasix had peripheral edema of legs/ankles but otherwise appears compensated (8) A-fib: paced on EKG and clinically Continue apixaban 2.5 mg p.o. twice daily Continue metoprolol tartrate 25 mg p.o. every morning and 50 mg p.o. nightly (9) Diabetes 1.5, managed as type 2: A1c on 09/06/2019 = 7.2 cont basal-bolus insulin control satisfactory at this time (10) Anxiety: Continue buspirone (11) Subdural hematoma: chronic, old stable on CT head this admission takes chronic anticoagulation (eliquis 2.5mg BID) - continue albeit cautiously (12) Constipation: add senna add miralax (13) Chronic respiratory failure with hypoxia: stable on home O2 amount dispo planning - rehab post-d/c updated continue PT/OT Discharge Plan Discharge Items Patient Disposition: Transfer Detention Fac Reason For Visit: FALL, HUMERUS FRACTURE Discharge Diagnosis: 1. accidental fall 2. left humerus fracture 3. chronic hypoxic respiratory failure on oxygen, 2 Liters Activity: As commented below Activity Comment: keep left arm/shoulder in sling at all times Non-emergency contact: Primary Care Provider Call non-emergency contact if: you have any medication questions, your symptoms worsen, your pain is not controlled and your pain is worsening Follow-up/Referrals: Lizet Jeter DO [Primary Care Provider] - Keith Erwin MD [Surgeon] - (see Dr Erwin in 1 week for left humerus fracture) Diet: Carb Consistent or DM2 and Heart Healthy Fluids: 1500ml (6 cups) Addtl Attending Provider Instructions: 1. left shoulder/arm in sling at all times 2. follow-up with Dr Erwin, [facility] - 1 week for left humerus fracture 3. check blood sugars AC/HS 4. oxygen - continuous - 2 liters 5. daily weights ON STANDING SCALE -- call Range [facility]ic if any weight gain of more than 3 pounds in 1-2 days 6. repeat CBC, BMP, and magnesium in 5-7 days for stability -- results to [facility] Return to [facility] if -- * any fever over 100.5 degrees * worsening pain of left shoulder not responding to medication * chest pain or shortness of breath * any other concerns Pending Studies at Discharge: No Stand-Alone Forms: My [facility] Skilled Items Patient informed of condition?: Yes DNR: Yes Discharge Level of Care: Skilled Communicable Disease: No Discharge Prognosis: Stable Lines: None Urinary Catheter: No Medications and DC Order Prescriptions: New sennosides [Senokot] 8.6 mg Tablet 17.2 mg PO QAM Qty: 60 RF: 0 polyethylene glycol 3350 [Miralax] 17 gram Powder In Packet 17 g PO DAILY Qty: 1 RF: 0 acetaminophen 500 mg Tablet 1,000 mg PO TID 10 Days Qty: 60 RF: 0 oxycodone 5 mg Tablet 5 mg PO Q6H PRN (Reason: pain) Qty: 20 RF: 0 (DME) Oxygen Home Liters Per Minute See Rx Instructions .ROUTE .MEDSUPPLY Qty: 1 RF: 0 pregabalin [Lyrica] 200 mg capsule 200 mg PO BID Qty: 60 RF: 0 Continued nitroglycerin 0.4 mg tablet, sublingual 0.4 mg SL Q5M PRN (Reason: Chest Pain) Qty: 25 RF: 0 multivitamin Tablet 1 tab PO QAM RF: 0 ascorbic acid (vitamin C) [Vitamin C] 1,000 mg Tablet 1 g PO QAM RF: 0 ergocalciferol (vitamin D2) [Vitamin D2] 50,000 unit Capsule 50,000 unit PO MONTHLY RF: 0 levothyroxine [Synthroid] 25 mcg tablet 25 mcg PO QAM RF: 0 furosemide [Lasix] 40 mg tablet 40 mg PO HS PRN (Reason: Edema) RF: 0 insulin lispro [Humalog KwikPen Insulin] 100 unit/mL insulin pen 18 unit subcut QDL RF: 0 insulin lispro [Humalog KwikPen Insulin] 100 unit/mL insulin pen 11 unit subcut QDB RF: 0 insulin lispro [Humalog KwikPen Insulin] 100 unit/mL insulin pen 28 unit subcut QDD RF: 0 buspirone 10 mg tablet 10 mg PO TID RF: 0 clopidogrel [Plavix] 75 mg tablet 75 mg PO QAM RF: 0 furosemide [Lasix] 80 mg tablet 80 mg PO DAILY RF: 0 metoprolol tartrate [Lopressor] 50 mg tablet 50 mg PO UD RF: 0 Praluent Pen 75 mg/mL pen injector 75 mg SQ Q14D RF: 0 ipratropium-albuterol 0.5 mg-3 mg(2.5 mg base)/3 mL Solution For Nebulization 3 ml NEB QIDR PRN (Reason: shortness of breath or wheezing) Qty: 90 RF: 0 Eliquis 5 mg tablet 2.5 mg PO BID RF: 0 Changed Basaglar KwikPen U-100 Insulin 100 unit/mL (3 mL) insulin pen 20 units subcut BID Qty: 1 RF: 0 Discharge Orders: Discharge Order (Routine); Ordered 09/19/19 Ordered By: Alfredo Goldberg Admission Data Admit Date/Time: 09/15/19 18:01 Attending Provider: Alfredo Goldberg Admit Provider: Mariely Hinojosa Primary Care Provider: Lizet Jeter Other Providers: Mariely Hinojosa ; Keith Erwin ; Jose Real [facility] Coding Diagnoses Fall W19.XXXA Encounter type: initial encounter Fracture of head of left humerus S42.292A Encounter type: initial encounter Fracture type: closed Coronary artery disease I25.10 Coronary Disease-Associated Artery/Lesion type: [place] artery [place] vs. transplanted heart: [place] heart Associated angina: without angina Hypothyroidism E03.9 Hypothyroidism type: unspecified Chronic kidney disease N18.9 Chronic kidney disease stage: unspecified stage Anemia D64.9 Anemia type: unspecified type CHF (congestive heart failure) I50.9 Heart failure chronicity: unspecified Heart failure type: unspecified A-fib I48.91 Atrial fibrillation type: unspecified Diabetes 1.5, managed as type 2 E13.9 Anxiety F41.9 Subdural hematoma S06.5X9A Constipation K59.00 Chronic respiratory failure with hypoxia J96.11
[2019-09-19] MEDS: OXYCODONE HCL IR 5 MG TAB (IMMEDIATE RELEASE) PO PRN (11:55)
== END 2019-09-19 13:55 | DRG 563 ==
LOC: ED 13:37 → SUATTDRO 18:01 → 3N 18:01

== ENCOUNTER 2019-12-25 12:13 | Inpatient (IN) ==
--- NOTE | 2019-12-25 13:02 | Emergency Department Note ---
History of Present Illness General Chief complaint: Flu Like Symptoms Stated complaint: WEAKNESS,BODYACHES,NO FEVER Time Seen by Provider: 12/25/19 12:41 Source: patient History of Present Illness Provider complaint: Fatigue and myalgias Onset (ago): month(s) 6 Location: chest, abdomen, upper extremity and lower extremity Severity: moderate Pain Consistency: + constant Maximum Pain Intensity: 7 Quality: + aching Relieved By: + none Associated symptoms: + cough (Mild cough starting today probably from allergies), + fever/chills (Chills no fever) and + shortness of breath (Chronic shortness of breath from CHF); no chest pain, no headaches and no nausea/vomiting This is a 79-year-old female sent over from her doctor's office for evaluation. The patient is presenting with 6 months of symptoms including diffuse body aches chills, loss of appetite and generalized fatigue. She states she also noticed that she has problems with her balance which has been going on for 6 months. She denies any focal neurologic symptoms such as weakness or numbness to one side of her body or difficulty with her speech. 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 She denies any known exposure to COVID-19. She has been isolating at home. She states that she did develop a mild cough today but believes it is from allergies. She has baseline shortness of breath from CHF and has noticed increased swelling to her legs with some weight gain. She is not on diuretic but otherwise denies any urinary symptoms. She has had no vomiting or nausea. She denies any chest pain. She states she has aching in her chest which is identical to the aching throughout her body and it is not specifically localized to the chest. She states it feels nothing like her prior cardiac events. She is on Eliquis for history of atrial fibrillation. She does state that she was taken off in 2016 when she had a subdural hematoma. Home Medications Home Medications Medication Instructions Recorded Confirmed Type ascorbic acid (vitamin C) [Vitamin 1,000 mg PO QAM 06/20/18 12/25/19 History C] ergocalciferol (vitamin D2) 50,000 unit PO FR 06/20/18 12/25/19 History [Vitamin D2] multivitamin 1 tab PO QAM 06/20/18 12/25/19 History furosemide [Lasix] 40 mg PO HS PRN 02/12/19 12/25/19 History nitroglycerin 0.4 mg sublingual 0.4 mg SL Q5M PRN #25 tab 02/26/19 12/25/19 His tory tablet insulin lispro [Humalog KwikPen 11 unit SUBCUT QDB 04/22/19 12/25/19 History Insulin] insulin lispro [Humalog KwikPen 18 unit SUBCUT QDL 04/22/19 12/25/19 History Insulin] insulin lispro [Humalog KwikPen 28 unit SUBCUT QDD 04/22/19 12/25/19 History Insulin] levothyroxine [Synthroid] 25 mcg PO QAM 06/04/19 12/25/19 History buspirone 10 mg PO TID 07/12/19 12/25/19 History furosemide [Lasix] 80 mg PO QAM 07/12/19 12/25/19 History metoprolol tartrate [Lopressor] 50 mg PO UD 07/12/19 12/25/19 History ipratropium-albuterol 3 ml NEB QIDR PRN #90 ml 07/17/19 12/25/19 Rx Eliquis 2.5 mg PO BID 09/15/19 12/25/19 History Oxygen Home #1 ea 09/19/19 11/26/19 Rx oxycodone 5 mg PO Q6H PRN #20 tab 09/19/19 12/25/19 Rx polyethylene glycol 3350 [Miralax] 17 g PO DAILY #1 ea 09/19/19 12/25/19 Rx sennosides [Senokot] 17.2 mg PO QAM #60 tab 09/19/19 12/25/19 Rx sodium chloride [Saline Nasal Mist] 2 sprays INTNAS QID PRN #45 ml 09/19/19 12/25/19 Rx clopidogrel 75 mg tablet 75 mg PO QAM #90 tab 10/10/19 12/25/19 Rx Basaglar KwikPen U-100 Insulin 30 units SUBCUT BID 12/25/19 12/25/19 History Allergies Allergy/AdvReac Type Severity Reaction Status Date / Time eptifibatide Allergy Severe ANAPHYLAXIS Verified 12/25/19 15:43 hornet venom Allergy Severe WASP VENOM Verified 12/25/19 15:43 PROTEIN-ANAPHYLAXIS levofloxacin [From Levaquin] Allergy Severe Hives Verified 12/25/19 15:43 atorvastatin Allergy Unknown MUSCLE PAIN Verified 12/25/19 15:43 ezetimibe Allergy Unknown MUSCLE PAIN Verified 12/25/19 15:43 simvastatin Allergy Unknown MUSCLE PAIN Verified 12/25/19 15:43 amlodipine AdvReac Severe Nausea Verified 12/25/19 15:43 azithromycin AdvReac Intermediate Palpitation Verified 12/25/19 15:43 s warfarin AdvReac Intermediate EXTREME Verified 12/25/19 15:43 BLEEDING TIMES codeine AdvReac Mild VOMITING Verified 12/25/19 15:43 gemfibrozil AdvReac Mild NAUSEA Verified 12/25/19 15:43 meperidine AdvReac Mild VOMITING Verified 12/25/19 15:43 ondansetron AdvReac Mild vomiting Verified 12/25/19 15:43 ranitidine [From Zantac] AdvReac Mild dyspepsia Verified 12/25/19 15:43 cortisone AdvReac Unknown INCREASES Verified 12/25/19 15:43 SUGAR AND VOMITING? hydralazine AdvReac Unknown VOMITING Verified 12/25/19 15:43 ibuprofen AdvReac Unknown VOMITING Verified 12/25/19 15:43 AND DIARRHEA iodine AdvReac Unknown SHELLFISH Verified 12/25/19 15:43 - VOMITING shellfish derived AdvReac Unknown VOMITING Verified 12/25/19 15:43 Sulfa (Sulfonamide AdvReac Unknown VOMITING Verified 12/25/19 15:43 Antibiotics) Past Med/Surg History Medical History Angina pectoris Atrial fibrillation CAD (coronary artery disease) cardiac stents x 6; most recent: AWILDA x2 (mid/distal RCA) 07/06/18* Chronic kidney disease, stage 4 (severe) CKD (chronic kidney disease) stage 3, GFR 30-59 ml/min COPD with acute exacerbation Diabetes (Chronic) Diabetic foot ulcer associated with type 2 diabetes mellitus (Acute) Diastolic CHF 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) Dyslipidemia HTN (hypertension) (Chronic) Hypertrophic cardiomyopathy apical variant Hypothyroidism Knee arthropathy Lung cancer Myocardial infarction X4 Peripheral neuropathy (Chronic) Proteinuria (Chronic) Respiratory failure 2-3L O2 Subdural hematoma Thrombocytopenia chronic; baseline platelets low 100's Vitamin D deficiency Surgical History History of cardioversion MULTIPLE History of cataract surgery History of lung surgery PARTIAL LEFT LOBECTOMY (2013) Hx of brain surgery 2017 S/P FALL/INJURY; SUBSEQUENT BLOOD CLOT EVACUATION S/P cardiac catheterization 7 TOTAL; CARDIAC STENTS X6 S/P hysterectomy S/P tonsillectomy Family History Father Cancer Heart disease Diabetes Mother Stroke Hypertension Grandmother (Maternal) Coronary heart disease Stroke Family/Other Multiple sclerosis Brother Coronary heart disease Grandfather (Maternal) Heart disease Grandfather (Paternal) Diabetes Aunt Muscular dystrophy Other Gallbladder disease Kidney stones Social History (Updated 12/25/19 @ 16:01 by Alfredo Goldberg) Preferred Language: Serbian Communication Ability: Effective 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 and A total of 10 systems reviewed and were otherwise negative Physical Exam Vital Signs Vital Signs - 24 hr 12/25/19 12:19 12/25/19 14:04 12/25/19 15:35 Temperature 36.6 C Temperature Source Oral Pulse Rate 74 Pulse Rate [Finger] 70 70 Pulse Rhythm Regular Pulse Rhythm [Finger] Regular Pulse Strength [Finger] Normal Respiratory Rate 22 18 18 Respiratory Effort / Characteristics Non-Labored Non-Labored Spontaneous Respiratory Depth Normal Normal Respiratory Pattern Regular Regular Blood Pressure 186/87 H Blood Pressure [Right Arm] 170/92 H Blood Pressure Mean 120 Blood Pressure Mean [Right Arm] 118 Pulse Oximetry 99 98 Oxygen Delivery Method Nasal Cannula Room Air Oxygen Flow Rate 3 Sepsis Recent Fever Within 48 Hours No Sepsis Action Taken by Nursing No Action Required 12/25/19 16:29 Temperature Temperature Source Pulse Rate Pulse Rate [Finger] 71 Pulse Rhythm Pulse Rhythm [Finger] Pulse Strength [Finger] Respiratory Rate 8 L Respiratory Effort / Characteristics Respiratory Depth Respiratory Pattern Blood Pressure Blood Pressure [Right Arm] 175/94 H Blood Pressure Mean Blood Pressure Mean [Right Arm] 121 Pulse Oximetry 99 Oxygen Delivery Method Nasal Cannula Oxygen Flow Rate 3 Sepsis Recent Fever Within 48 Hours Sepsis Action Taken by Nursing Constitutional: Vital signs reviewed. Eyes: Pupils are equal round reactive to light. Conjunctiva are noninjected. ENT: Pharynx is clear without erythema or exudate. Mucous membranes are moist. Neck supple without meningeal signs. Respiratory: Clear to auscultation bilaterally. Breath sounds are equal bilaterally. Cardiovascular: Regular rate and rhythm. No rubs or gallops. GI: Soft, nondistended and nontender. Bowel sounds are present. Musculoskeletal: Bilateral pitting edema to the lower extremities. No lower extremity tenderness. Integumentary: No cyanosis. or jaundice. Neurological: The patient is awake and alert. No focal deficits. Psychiatric: Normal affect. Not anxious appearing. Course Administered Medications Discontinued Medications Colchicine (Colcrys) 0.6 mg PO NOW ONE Stop: 12/25/19 16:35 Last Admin: 12/25/19 17:20 Dose: 0.6 mg Documented by: [id number] Furosemide (Lasix) 40 mg IV NOW STA Stop: 12/25/19 15:21 Last Admin: 12/25/19 16:29 Dose: 40 mg Documented by: [id number] Prednisone (Prednisone) 20 mg PO NOW STA Stop: 12/25/19 16:35 Last Admin: 12/25/19 17:20 Dose: 20 mg Documented by: [id number] Medical Decision Making Differential Diagnosis CHF exacerbation, UTI, Lyme disease, pneumonia, anemia, metabolic derangement Medical Records Attestation: I reviewed the patient's medical records. The patient was seen here November 25 for a head injury and CHF exacerbation. Home Medications Current Medication List: was personally reviewed by me Laboratory Data Attestation: I reviewed the patient's lab results. Result diagrams: 12/25/19 13:45 12/25/19 13:45 Lab Results 12/25/19 12/25/19 12/25/19 Range/Units 13:45 13:45 13:45 WBC 5.37 (4.8-10.8) K/uL RBC 4.50 (4.2-5.4) M/uL Hgb 12.1 (12.0-16.0) g/dL Hct 40.5 (37-47) % MCV 90.0 (80-100) fL MCH 26.9 (25-34) pg MCHC 29.9 L (32-36) g/dL RDW Std Deviation 63.3 H (36.4-46.3) fL RDW Coeff of Nhi 19.4 H (11.5-14.5) % Plt Count 110 L (130-400) K/uL Immature Gran % (Auto) 0.9 % Neut % (Auto) 75.6 % Lymph % (Auto) 13.8 % [place] % (Auto) 7.8 % Eos % (Auto) 1.5 % Baso % (Auto) 0.4 % Immature Gran # (Auto) 0.05 H (0.00-0.02) K/uL Neut # (Auto) 4.06 (1.4-6.5) K/uL Lymph # (Auto) 0.74 L (1.2-3.4) K/uL [place] # (Auto) 0.42 (0.11-0.59) K/uL Eos # (Auto) 0.08 (0-0.5) K/uL Baso # (Auto) 0.02 (0-0.2) K/uL Absolute Nucleated RBC 0.02 H (0-0) K/uL Nucleated RBC % (auto) 0.3 % Platelet Estimate Decreased L (Normal) Stomatocytes 1+ Sodium 141 (136-145) mmol/L Potassium 4.1 (3.5-5.1) mmol/L Chloride 100 (98-107) mmol/L Carbon Dioxide 37 H (21-32) mmol/L Anion Gap 4.0 (3-11) BUN 43 H (7-18) mg/dl Creatinine 1.85 H (0.6-1.2) mg/dl Est Cr Clr Drug Dosing Not Reportable Est GFR ( Amer) 29.7 Est GFR (Non-Af Amer) 25.6 BUN/Creatinine Ratio 23.4 H (10-20) Glucose 244 H (70-99) mg/dl Uric Acid (2.6-7.2) mg/dl Calcium 9.4 (8.5-10.1) mg/dl Magnesium 1.9 (1.8-2.4) mg/dl Total Bilirubin 0.8 (0.2-1) mg/dl AST 19 (15-37) U/L ALT 29 (12-78) U/L Alkaline Phosphatase 77 (45-117) U/L Total Creatine Kinase (26-192) U/L Troponin I Cancelled 0.054 H* C-Reactive Protein 0.41 H (0-0.29) mg/dl NT-Pro-B Natriuret Pep 5987 H (0-1800) pg/ml Total Protein 6.6 (6.4-8.2) gm/dl Albumin 3.5 (3.4-5.0) gm/dl Globulin 3.1 (2.5-4.0) gm/dl Albumin/Globulin Ratio 1.1 (0.9-2) TSH 1.430 (0.300-4.500) uIu/ml Urine Color Urine Appearance (Clear) Urine pH (4.5-7.5) Ur Specific [place] (1.000-1.030) Urine Protein (Negative) Urine Glucose (UA) (Negative) Urine Ketones (Negative) Urine Blood (Negative) Urine Nitrite (Negative) Urine Bilirubin (Negative) Urine Urobilinogen (Negative) Ur Leukocyte Esterase (Negative) Urine WBC (Auto) (0-5) /hpf Urine RBC (Auto) (0-4) /hpf U Hyaline Cast (Auto) (0-5) /lpf U Epithel Cells (Auto) (0-5) /lpf Urine Bacteria (Auto) (Negative) Lyme Disease IgG Ab (Negative) Lyme Disease IgM Ab (Negative) 12/25/19 12/25/19 12/25/19 Range/Units 13:45 13:45 13:45 WBC (4.8-10.8) K/uL RBC (4.2-5.4) M/uL Hgb (12.0-16.0) g/dL Hct (37-47) % MCV (80-100) fL MCH (25-34) pg MCHC (32-36) g/dL RDW Std Deviation (36.4-46.3) fL RDW Coeff of Nhi (11.5-14.5) % Plt Count (130-400) K/uL Immature Gran % (Auto) % Neut % (Auto) % Lymph % (Auto) % [place] % (Auto) % Eos % (Auto) % Baso % (Auto) % Immature Gran # (Auto) (0.00-0.02) K/uL Neut # (Auto) (1.4-6.5) K/uL Lymph # (Auto) (1.2-3.4) K/uL [place] # (Auto) (0.11-0.59) K/uL Eos # (Auto) (0-0.5) K/uL Baso # (Auto) (0-0.2) K/uL Absolute Nucleated RBC (0-0) K/uL Nucleated RBC % (auto) % Platelet Estimate (Normal) Stomatocytes Sodium (136-145) mmol/L Potassium (3.5-5.1) mmol/L Chloride (98-107) mmol/L Carbon Dioxide (21-32) mmol/L Anion Gap (3-11) BUN (7-18) mg/dl Creatinine (0.6-1.2) mg/dl Est Cr Clr Drug Dosing Est GFR ( Amer) Est GFR (Non-Af Amer) BUN/Creatinine Ratio (10-20) Glucose (70-99) mg/dl Uric Acid 11.4 H (2.6-7.2) mg/dl Calcium (8.5-10.1) mg/dl Magnesium (1.8-2.4) mg/dl Total Bilirubin (0.2-1) mg/dl AST (15-37) U/L ALT (12-78) U/L Alkaline Phosphatase (45-117) U/L Total Creatine Kinase 40 (26-192) U/L Troponin I C-Reactive Protein (0-0.29) mg/dl NT-Pro-B Natriuret Pep (0-1800) pg/ml Total Protein (6.4-8.2) gm/dl Albumin (3.4-5.0) gm/dl Globulin (2.5-4.0) gm/dl Albumin/Globulin Ratio (0.9-2) TSH (0.300-4.500) uIu/ml Urine Color Yellow Urine Appearance Clear (Clear) Urine pH 6.5 (4.5-7.5) Ur Specific [place] 1.013 (1.000-1.030) Urine Protein Trace H (Negative) Urine Glucose (UA) Negative (Negative) Urine Ketones Negative (Negative) Urine Blood Negative (Negative) Urine Nitrite Negative (Negative) Urine Bilirubin Negative (Negative) Urine Urobilinogen Negative (Negative) Ur Leukocyte Esterase Trace H (Negative) Urine WBC (Auto) 5-10 H (0-5) /hpf Urine RBC (Auto) 0-4 (0-4) /hpf U Hyaline Cast (Auto) 0 (0-5) /lpf U Epithel Cells (Auto) 5-10 H (0-5) /lpf Urine Bacteria (Auto) Negative (Negative) Lyme Disease IgG Ab Negative (Negative) Lyme Disease IgM Ab Negative (Negative) Imaging Data Radiologist's Impression: XR chest 1V portable HISTORY: weakness COMPARISON: Chest 11/26/2019. FINDINGS: The heart remains enlarged. There is a right-sided dual-chamber pacemaker. No pneumothorax. Suture material within the left upper lung zone is again noted. Left subclavian Port-A-Cath terminates at the proximal SVC. Perihilar interstitial vascular thickening persists. This favors mild pulmonary edema. Left basilar densities are also unchanged. IMPRESSION: No change compared to the prior study. Cardiomegaly and mild pulmonary edema persists. ACT 112: Negative or not required by law. Electronically signed by: Jeremy Moran M.D. 12/25/2019 1:[address]AST CT DOSE: 788.63 mGycm HISTORY: balance issues eval for bleed/stroke TECHNIQUE: Multiaxial CT images of the head were performed without the use of intravenous contrast. Automated exposure control was utilized for this study. A dose lowering technique was utilized adhering to the principles of ALARA. Comparison: Head CT 11/26/2019. Findings: The paranasal sinuses and mastoid air cells are clear. The calvarium and skull base are intact. There is no mass, hematoma, midline shift, acute infarct. White matter hypodensity is nonspecific but suggestive of microvascular ischemic change. The ventricles and sulci demonstrate mild age-related involutional changes. Old right poststernotomy changes are again noted. This remains unchanged. Impression: No significant change compared to the prior study. No acute intracranial abnormality. ACT 112: Negative or not required by law. Electronically signed by: Jeremy Moran M.D. 12/25/2019 3:04 PM ECG Data Attestation: I personally reviewed and interpreted this ECG as follows: Indication: + SOB/dyspnea Rate (beats per minute): 71 Rhythm: + other (Ventricularly paced rhythm) ECG Intervals/blocks: + IVCD ECG ST segments: + T-wave inversions ECG Findings: no PVCs Comparison ECG Date: from (November 26, 2019) Change: no significant change Blood Pressure Blood Pressure Findings: Elevated blood pressure Blood Pressure Disposition: Referred to patients primary care provider JOSE Crane I did evaluate the patient as noted above. Patient was sent here by her docto r's office for evaluation. The patient has multiple complaints but her doctor was concerned about chest discomfort. She describes her chest discomfort as a generalized aching which she has all over her body. She does not describe it as a distinct pain and states it feels nothing like her prior heart issues. More complaining of generalized weakness and malaise and worsening shortness of breath. She also has had some weight gain with increased swelling to her legs despite taking Lasix 80 mg daily. IV access was established. liquid compounder a paced rhythm at a rate of 70. I did order and personally review the patient's 12-lead EKG as described above. She has a paced rhythm. I did order and personally reviewed the images of the patient's chest x-ray as described above. Chest x-ray shows cardiomegaly and vascular congestion. I did order and review the patient's blood work as noted in the electronic medical record. She has mild thrombocytopenia. She is not anemic or have any leukocytosis. Her CO2 slightly elevated. BUN and creatinine are at baseline. BNP is elevated. Trop onin is slightly elevated. I did treat the patient with Lasix 40 mg IV. The patient was also complaining of balance issues for the past 6 months. She has a history of prior subdural. I did order a CT of the head. I did review the images myself as well as the radiology report as described above. There is no evidence of acute intracranial abnormality. I did discuss the test results with the patient. I did recommend hospitalization for further care and evaluation. I did discuss the case with the hospitalist and casework specialist. Impression & Plan Acute exacerbation of CHF (congestive heart failure), Anticoagulated, Thrombocytopenia, Elevated troponin, CKD (chronic kidney disease) Discharge Plan Visit Data Chief Complaint: Flu Like Symptoms Stated Complaint: WEAKNESS,BODYACHES,NO FEVER ED Provider: Zachery Choi Discharge Problem: Acute exacerbation of CHF (congestive heart failure), Anticoagulated, Thrombocytopenia, Elevated troponin, CKD (chronic kidney disease) Patient Disposition: Being Evaluated by Hospitalist Forms Stand Alone Forms: My [facility] Prescriptions Prescriptions: No Action nitroglycerin 0.4 mg tablet, sublingual 0.4 mg SL Q5M PRN (Reason: Chest Pain) Qty: 25 RF: 0 clopidogrel [Plavix] 75 mg tablet 75 mg PO QAM Qty: 90 RF: 3 multivitamin Tablet 1 tab PO QAM RF: 0 ascorbic acid (vitamin C) [Vitamin C] 1,000 mg Tablet 1,000 mg PO QAM RF: 0 ergocalciferol (vitamin D2) [Vitamin D2] 50,000 unit Capsule 50,000 unit PO FR RF: 0 levothyroxine [Synthroid] 25 mcg tablet 25 mcg PO QAM RF: 0 furosemide [Lasix] 40 mg tablet 40 mg PO HS PRN (Reason: Edema) RF: 0 insulin lispro [Humalog KwikPen Insulin] 100 unit/mL insulin pen 18 unit subcut QDL RF: 0 insulin lispro [Humalog KwikPen Insulin] 100 unit/mL insulin pen 11 unit subcut QDB RF: 0 insulin lispro [Humalog KwikPen Insulin] 100 unit/mL insulin pen 28 unit subcut QDD RF: 0 buspirone 10 mg tablet 10 mg PO TID RF: 0 furosemide [Lasix] 80 mg tablet 80 mg PO QAM RF: 0 metoprolol tartrate [Lopressor] 50 mg tablet 50 mg PO UD RF: 0 ipratropium-albuterol 0.5 mg-3 mg(2.5 mg base)/3 mL Solution For Nebulization 3 ml NEB QIDR PRN (Reason: shortness of breath or wheezing) Qty: 90 RF: 0 Eliquis 5 mg tablet 2.5 mg PO BID RF: 0 sennosides [Senokot] 8.6 mg Tablet 17.2 mg PO QAM Qty: 60 RF: 0 polyethylene glycol 3350 [Miralax] 17 gram Powder In Packet 17 g PO DAILY Qty: 1 RF: 0 oxycodone 5 mg Tablet 5 mg PO Q6H PRN (Reason: pain) Qty: 20 RF: 0 (DME) Oxygen Home Liters Per Minute See Rx Instructions .ROUTE .MEDSUPPLY Qty: 1 RF: 0 sodium chloride [Saline Nasal Mist] 0.65 % aerosol,spray 2 sprays INTNAS QID PRN (Reason: nasal congestion or dry nose) Qty: 45 RF: 0 Basaglar KwikPen U-100 Insulin 100 unit/mL (3 mL) insulin pen 30 units subcut BID RF: 0 Referrals Referrals: Lizet Jeter DO [Primary Care Provider] -
--- NOTE | 2019-12-25 13:29 | XRay Report ---
XR chest 1V portable HISTORY: weakness COMPARISON: Chest 11/26/2019. FINDINGS: The heart remains enlarged. There is a right-sided dual-chamber pacemaker. No pneumothorax. Suture material within the left upper lung zone is again noted. Left subclavian Port-A-Cath terminat es at the proximal SVC. Perihilar interstitial vascular thickening persists. This favors mild pulmona ry edema. Left basilar densities are also unchanged. IMPRESSION: No change compared to the prior study. Cardiomegaly and mild pulmonary edema persists. ACT 112: Negative or not required by law. Electronically signed by: Jeremy Moran M.D. 12/25/2019 1:28 PM
[2019-12-25 13:57] LABS: Mean Corpuscular Hgb Conc 29.9 g/dL (32-36); Nucleated RBC # (auto) 0.02 K/uL (0-0); Nucleated RBC % (auto) 0.3 %
[2019-12-25 14:02] LABS: Appearance Urine Clear (Clear); Bacteria Urine Automated Negative (Negative); Bilirubin Urine Negative (Negative); Blood Urine Negative (Negative); Cast Urine Automated 0 /lpf (0-5); Color Urine Yellow; Glucose Urine UA Negative (Negative); Ketones Urine Negative (Negative); Leukocyte Esterase Urine Trace (Negative); Nitrite Urine Negative (Negative); Protein Urine Trace (Negative); RBC Urine Automated 0-4 /hpf (0-4); Specific Gravity Urine 1.013 (1.000-1.030); Urobilinogen Urine Negative (Negative); pH Urine 6.5 (4.5-7.5)
[2019-12-25 14:05] LABS: Hematocrit (blood only) 40.5 % (37-47); Hemoglobin 12.1 g/dL (12.0-16.0); Mean Corpuscular Hemoglobin 26.9 pg (25-34); RDW Coefficient of Variation 19.4 % (11.5-14.5); RDW Standard Deviation 63.3 fL (36.4-46.3); White Blood Count 5.37 K/uL (4.8-10.8)
[2019-12-25 14:15] LABS: Alanine Aminotransferase 29 U/L (12-78); Albumin Level 3.5 gm/dl (3.4-5.0); Aspartate Aminotransferase 19 U/L (15-37); BUN Creatinine Ratio 23.4 (10-20); Blood Urea Nitrogen 43 mg/dl (7-18); Calcium 9.4 mg/dl (8.5-10.1); Carbon Dioxide 37 mmol/L (21-32); Chloride 100 mmol/L (98-107); Est GFR (African American) 29.7; Est GFR (Non-African American) 25.6; Glucose 244 mg/dl (70-99); Magnesium 1.9 mg/dl (1.8-2.4); Potassium 4.1 mmol/L (3.5-5.1); Sodium 141 mmol/L (136-145)
[2019-12-25 14:20] LABS: Basophils # (auto) 0.02 K/uL (0-0.2); Basophils % (auto) 0.4 %; Eosinophils # (auto) 0.08 K/uL (0-0.5); Eosinophils % (auto) 1.5 %; Immature Granulocytes # (auto) 0.05 K/uL (0.00-0.02); Immature Granulocytes % (auto) 0.9 %; Lymphocytes # (auto) 0.74 K/uL (1.2-3.4); Lymphocytes % (auto) 13.8 %; Monocytes # (auto) 0.42 K/uL (0.11-0.59); Monocytes % (auto) 7.8 %; Neutrophils # (auto) 4.06 K/uL (1.4-6.5); Neutrophils % (auto) 75.6 %; Platelet Count 110 K/uL (130-400); Platelet Estimate Decreased (Normal); Stomatocytes 1+
[2019-12-25 14:56] LABS: Albumin Globulin Ratio 1.1 (0.9-2); Alkaline Phosphatase 77 U/L (45-117); Bilirubin,Total 0.8 mg/dl (0.2-1); Globulin 3.1 gm/dl (2.5-4.0); NT Pro B Type Natriuretic Pept 5987 pg/ml (0-1800); Total Protein 6.6 gm/dl (6.4-8.2); Troponin I 0.054 ng/ml (0-0.045)
--- NOTE | 2019-12-25 15:06 | CT Scan Report ---
HEAD CT NONCONTRAST CT DOSE: 788.63 mGycm HISTORY: balance issues eval for bleed/stroke TECHNIQUE: Multiaxial CT images of the head were performed without the use of intravenous contrast. A utomated exposure control was utilized for this study. A dose lowering technique was utilized adheri ng to the principles of ALARA. Comparison: Head CT 11/26/2019. Findings: The paranasal sinuses and mastoid air cells are clear. The calvarium and skull base are int act. There is no mass, hematoma, midline shift, acute infarct. White matter hypodensity is nonspecifi c but suggestive of microvascular ischemic change. The ventricles and sulci demonstrate mild age-rela anjana involutional changes. Old right poststernotomy changes are again noted. This remains unchanged. Impression: No significant change compared to the prior study. No acute intracranial abnormality. ACT 112: Negative or not required by law. Electronically signed by: Jeremy Moran M.D. 12/25/2019 3:04 PM
--- NOTE | 2019-12-25 15:11 | Electrocardiogram Report ---
Test Reason : Blood Pressure : / mmHG Vent. Rate : 071 BPM Atrial Rate : 202 BPM P-R Int : 000 ms QRS Dur : 176 ms QT Int : 468 ms P-R-T Axes : 000 143 -41 degrees QTc Int : 508 ms Ventricular-paced rhythm Abnormal ECG When compared with ECG of 26-NOV-2019 11:55, No significant change was found Confirmed by Gregory Watson ([id number]) on 12/25/2019 3:11:04 PM Referred By: REFERRED SELF Confirmed By:Gregory Watson
[2019-12-25] MEDS ORDERED: FUROSEMIDE 40 MG/4 ML VIAL IV STA (15:20)
[2019-12-25 15:29] LABS: Lyme Ab IgG w/WB Rflx Negative (Negative); Lyme Ab IgM w/WB Rflx Negative (Negative)
--- NOTE | 2019-12-25 15:38 | History & Physical Report ---
Date of Service December 25, 2019 Assessment & Plan (1) Gout: Physical exam is c/w long-standing gout given the tophi seen in various joints. Uric acid level is markedly elevated (>11). I believe her polyarticular arthritis is gouty arthritis. Cannot rule out RA but less likely. Check sed rate/crp and RF. Start prednisone 20mg daily. Colchicine 0.6mg x 1 now. Consider hand x-rays to check for erosions. Once symptoms and signs are improved would start allopurinol in a few weeks from now. Likely will need low-dose prednisone for 2-3 weeks to get this under control. Would advise rheum referral post-d/c. (2) Chest pain: atypical for ischemic chest pain. symptoms do NOT feel like previous episodes of chest pain from CAD. recheck echo - r/o pericardial effusion as cause of symptoms. cannot rule out non-cardiac causes. will obtain serial troponins. telemetry. consider pacer interrogation. (3) Elevated troponin: see "chest pain" above I do not feel she has had ACS the elevation may simply be due to CKD stage 4 (4) Myalgia: diffuse, widespread. check sed rate/crp - r/o PMR. check CPK. consider cortisol level to r/o [place]'s. recent vitamin D level was wnl. most recent vitamin B12 level was wnl. patient with depression - this could make myalgias worse. (5) Depression: present at least 6 weeks or longer. daily crying spells. lack of energy, considerable fatigue, etc. start zoloft 25mg HS. increase to 50mg in 1 week. strongly consider outpatient counseling. (6) Acute exacerbation of CHF (congestive heart failure): lasix 40mg IV x 1 given in ER. re-eval for additional IV lasix in am. check echo. previous echo with evidence of cor pulmonale. (7) Chronic respiratory failure with hypoxia: on home O2 NC, 2-3 L continuously. 2nd to OHS? 2nd to pulmonary HTN/cor pulmonale? other? (8) Coronary artery disease: history of. follows with Dr Iraheta. cont plavix. cont beta suraj. statin intolerant. see above re: troponins. (9) Hypothyroidism: TSH today wnl. cont synthroid 25mcg daily. (10) Thrombocytopenia: chronic, low 100s at baseline. low-grade ITP? other? despite level she is stable without any bleeding issues. (11) Pacemaker: consider interrogation ventricularly paced (12) Chronic kidney disease, stage 4 (severe): baseline Cr high 1's stable today bmp in am due to diuresis (13) Subdural hematoma: history of such s/p craniotomy CT head w/o ICH today (14) A-fib: takes eliquis 2.5mg BID cont beta suraj pacer in place (15) Sleep apnea: ideally should be on CPAP or BIPAP but is only on NC O2 JANICE likely contributes to chronic fatigue (16) Dyslipidemia: statin intolerant (17) Diffuse large B-cell lymphoma of extranodal site: history of such, 2012 s/p chemo with remission if fatigue, sweats, etc continue would check CT chest/abd/pelvis to look for enlarged lymph nodes, etc (18) Diabetes: cont lantus 30 units BID novolog - correction factor 12 with carb ratio 1:4 may need rapid adjustments due to prednisone use BSGs ac/hs DM diet (19) DVT prophylaxis: eliquis BID PT, OT evals while here updated by phone at time of admission History of Present Illness Chief Complaint: pain everywhere Primary Care Provider: Lizet Jeter, 79yo female with chronic hypoxic respiratory failure on home O2, 2-3L, CAD, COPD, morbid obesity, and T2DM - presenting with several complaints after her PCP referred her to the emergency room. She has diffuse muscle aches in "all my muscles" every day. Symptoms are worse in the evening. Muscles are so sore that she feels like she has flu. She has a hard time rising from a seated position and has noted arm weakness as well. She has had associated joint pain as well in several joints - fingers, right wrist, right shoulder, ankles. She has swelling in these joints. Joints are stiff. No fevers. Feels cold all the time. No weight loss. Has had weight gain - 10 pounds - since her left shoulder fracture several months ago. The muscle pain and joint pain is causing ambulation issues. She has had extreme fatigue and is tired all the time despite getting adequate hours of sleep. Napping during the day which is unusual for her. Appetite has been poor. Started 6 weeks ago. No loss of taste or smell. Admits to frequent crying spells starting 6 weeks ago. Feels depressed. "I feel like life is over." The COVID-19 pandemic has caused anxiety and the quarantining has made her depressed. Complains of chest "aches" periodically. Center of chest in location as well as left side of chest. It feels like the same aches she has in her limbs and other regions. Symptoms occur at rest or with activity. Feels completely different than previous CAD pain. No pleuritic component to it. Lastly, she has had worsening dyspnea for 6 weeks. Worse with activity. Dyspnea present at night-time as well. Allergies Allergy/AdvReac Type Severity Reaction Status Date / Time eptifibatide Allergy Severe ANAPHYLAXIS Verified 12/25/19 15:43 hornet venom Allergy Severe WASP VENOM Verified 12/25/19 15:43 PROTEIN-ANAPHYLAXIS levofloxacin [From Levaquin] Allergy Severe Hives Verified 12/25/19 15:43 atorvastatin Allergy Unknown MUSCLE PAIN Verified 12/25/19 15:43 ezetimibe Allergy Unknown MUSCLE PAIN Verified 12/25/19 15:43 simvastatin Allergy Unknown MUSCLE PAIN Verified 12/25/19 15:43 amlodipine AdvReac Severe Nausea Verified 12/25/19 15:43 azithromycin AdvReac Intermediate Palpitation Verified 12/25/19 15:43 s warfarin AdvReac Intermediate EXTREME Verified 12/25/19 15:43 BLEEDING TIMES codeine AdvReac Mild VOMITING Verified 12/25/19 15:43 gemfibrozil AdvReac Mild NAUSEA Verified 12/25/19 15:43 meperidine AdvReac Mild VOMITING Verified 12/25/19 15:43 ondansetron AdvReac Mild vomiting Verified 12/25/19 15:43 ranitidine [From Zantac] AdvReac Mild dyspepsia Verified 12/25/19 15:43 cortisone AdvReac Unknown INCREASES Verified 12/25/19 15:43 SUGAR AND VOMITING? hydralazine AdvReac Unknown VOMITING Verified 12/25/19 15:43 ibuprofen AdvReac Unknown VOMITING Verified 12/25/19 15:43 AND DIARRHEA iodine AdvReac Unknown SHELLFISH Verified 12/25/19 15:43 - VOMITING shellfish derived AdvReac Unknown VOMITING Verified 12/25/19 15:43 Sulfa (Sulfonamide AdvReac Unknown VOMITING Verified 12/25/19 15:43 Antibiotics) Home Medications Home Medications Medication Instructions Recorded Confirmed Type ascorbic acid (vitamin C) [Vitamin 1,000 mg PO QAM 06/20/18 12/25/19 History C] ergocalciferol (vitamin D2) 50,000 unit PO FR 06/20/18 12/25/19 History [Vitamin D2] multivitamin 1 tab PO QAM 06/20/18 12/25/19 History furosemide [Lasix] 40 mg PO HS PRN 02/12/19 12/25/19 History nitroglycerin 0.4 mg sublingual 0.4 mg SL Q5M PRN #25 tab 02/26/19 12/25/19 History tablet insulin lispro [Humalog KwikPen 11 unit SUBCUT QDB 04/22/19 12/25/19 History Insulin] insulin lispro [Humalog KwikPen 18 unit SUBCUT QDL 04/22/19 12/25/19 History Insulin] insulin lispro [Humalog KwikPen 28 unit SUBCUT QDD 04/22/19 12/25/19 History Insulin] levothyroxine [Synthroid] 25 mcg PO QAM 06/04/19 12/25/19 History buspirone 10 mg PO TID 07/12/19 12/25/19 History furosemide [Lasix] 80 mg PO QAM 07/12/19 12/25/19 History metoprolol tartrate [Lopressor] 50 mg PO UD 07/12/19 12/25/19 History ipratropium-albuterol 3 ml NEB QIDR PRN #90 ml 07/17/19 12/25/19 Rx Eliquis 2.5 mg PO BID 09/15/19 12/25/19 History Oxygen Home #1 ea 09/19/19 11/26/19 Rx oxycodone 5 mg PO Q6H PRN #20 tab 09/19/19 12/25/19 Rx polyethylene glycol 3350 [Miralax] 17 g PO DAILY #1 ea 09/19/19 12/25/19 Rx sennosides [Senokot] 17.2 mg PO QAM #60 tab 09/19/19 12/25/19 Rx sodium chloride [Saline Nasal Mist] 2 sprays INTNAS QID PRN #45 ml 09/19/19 12/25/19 Rx clopidogrel 75 mg tablet 75 mg PO QAM #90 tab 10/10/19 12/25/19 Rx Angela Moses U-100 Insulin 30 units SUBCUT BID 12/25/19 12/25/19 History Past Med/Surg History Medical History Angina pectoris Atrial fibrillation CAD (coronary artery disease) cardiac stents x 6; most recent: AWILDA x2 (mid/distal RCA) 07/06/18* Chronic kidney disease, stage 4 (severe) CKD (chronic kidney disease) stage 3, GFR 30-59 ml/min COPD with acute exacerbation Diabetes (Chronic) Diabetic foot ulcer associated with type 2 diabetes mellitus (Acute) Diastolic CHF 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) Dyslipidemia HTN (hypertension) (Chronic) Hypertrophic cardiomyopathy apical variant Hypothyroidism Knee arthropathy Lung cancer Myocardial infarction X4 Peripheral neuropathy (Chronic) Proteinuria (Chronic) Respiratory failure 2-3L O2 Subdural hematoma Thrombocytopenia chronic; baseline platelets low 100's Vitamin D deficiency Surgical History History of cardioversion MULTIPLE History of cataract surgery History of lung surgery PARTIAL LEFT LOBECTOMY (2013) Hx of brain surgery 2017 S/P FALL/INJURY; SUBSEQUENT BLOOD CLOT EVACUATION S/P cardiac catheterization 7 TOTAL; CARDIAC STENTS X6 S/P hysterectomy S/P tonsillectomy Family History Father Cancer Heart disease Diabetes Mother Stroke Hypertension Grandmother (Maternal) Coronary heart disease Stroke Family/Other Multiple sclerosis Brother Coronary heart disease Grandfather (Maternal) Heart disease Grandfather (Paternal) Diabetes Aunt Muscular dystrophy Other Gallbladder disease Kidney stones Social History (Updated 12/25/19 @ 16:01 by Alfredo Goldberg) Preferred Language: Khmer Communication Ability: Effective Music Internship Required: No Beliefs That Will Affect Care: None marital status: Current Living Situation: Spouse Current Living Situation Comment: lives in [place] 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: 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 Feels Safe at Home: Yes Safety Concerns: Feels Safe At This Time Smoking Status: Never smoker Second Hand Exposure: No ; Hx Alcohol Use: No Hx Substance Use: No Review of Systems Constitutional: + chills, + sweats (since 2013), + body aches, + fatigue, + weakness, + anorexia and + weight gain; no fever Eyes: + worsening vision (x 2 years) Ear, Nose, Mouth, Throat: + sore throat (every night - since 2012); no dysphagia Respiratory: + dyspnea and + dyspnea on exertion; no cough and no hemoptysis Cardiovascular: as per Subjective / HPI, + chest pain, + paroxysmal nocturnal dyspnea and + edema Gastrointestinal: + heartburn, + constipation and + diarrhea/loose stools; no abdominal pain, no nausea, no vomiting and no blood in stools Genitourinary: + urinary frequency; no dysuria, no abnormal vaginal bleeding and no vaginal discharge Musculoskeletal: + joint pain and + myalgia Integumentary: + dry skin Neurologic: + generalized weakness and + numbness (b/l feet - chronic ) Psychiatric: + depression and + anxiety Endocrine: diabetes - BSGs - <200 Hematologic / Lymphatic: + easy bruising and + night sweats (chronic ); no lymphadenopathy and no unexplained weight loss Physical Exam Constitutional: + obese; no acute distress and no altered mental status Eyes: + anicteric sclerae and PERRL ENMT: external ear and nose normal, oropharynx normal Ears: + unable to visualize TM (Due to cerumen b/l) Neck: trachea midline, no thyromegaly Respiratory: Auscultation: + diminished lung sounds (Bases b/l) and + rales (Faint, b/l bases, fine in nature) Cardiovascular: Rate/Rhythm: regular rate and regular rhythm Heart Sounds: normal S1 and normal S2; no murmur Vessels: posterior tibial pulses present and dorsalis pedis pulses present; no JVD Extremities: + edema (1-2+ b/l) Gastrointestinal (Abdomen): Inspection/Auscultation: + abdomen distended (Upper abdomen) and normal bowel sounds Percussion/Palpation: + abdomen tender (Mild - epigastric region ); no hepatosplenomegaly Musculoskeletal: active synovitis b/l wrists, worse on right; active synovitis b/l ankles, worse on right; gouty tophi DIP right 3rd finger; gouty tophi first toe MTP joint, left foot. several small joints b/l hands with mild synovitis. b/l knees with TKR scars; no effusions of knees. NO tenderness to palpation of any muscles of arms, legs or chest wall/back. Skin: + rash (Stasis changes b/l shins but no cellulitis ) Neurologic: deep tendon reflexes 2+ bilaterally and moves all extremities; no focal motor deficits Psychiatric: Orientation: alert and oriented x 3 Affect: euthymic affect Lymphatic: no cervical lymphadenopathy Results & Data Results & Data ([facility]) Vital Signs (Past 12 Hours) Vital Signs Temp Pulse Pulse Resp BP BP Pulse Ox 12/25/19 15:35 70 18 12/25/19 14:04 70 18 170/92 H 98 12/25/19 12:19 36.6 C 74 22 186/87 H 99 Laboratory Results Laboratory Results - last 24 hr 12/25/19 12/25/19 12/25/19 13:45 13:45 13:45 WBC 5.37 RBC 4.50 Hgb 12.1 Hct 40.5 MCV 90.0 MCH 26.9 MCHC 29.9 L RDW Std Deviation 63.3 H RDW Coeff of Nhi 19.4 H Plt Count 110 L Immature Gran % (Auto) 0.9 Neut % (Auto) 75.6 Lymph % (Auto) 13.8 [place] % (Auto) 7.8 Eos % (Auto) 1.5 Baso % (Auto) 0.4 Immature Gran # (Auto) 0.05 H Neut # (Auto) 4.06 Lymph # (Auto) 0.74 L [place] # (Auto) 0.42 Eos # (Auto) 0.08 Baso # (Auto) 0.02 Absolute Nucleated RBC 0.02 H Nucleated RBC % (auto) 0.3 Platelet Estimate Decreased L Stomatocytes 1+ ESR Sodium 141 Potassium 4.1 Chloride 100 Carbon Dioxide 37 H Anion Gap 4.0 BUN 43 H Creatinine 1.85 H Est Cr Clr Drug Dosing Not Reportable Est GFR ( Amer) 29.7 Est GFR (Non-Af Amer) 25.6 BUN/Creatinine Ratio 23.4 H Glucose 244 H POC Glucose Uric Acid Calcium 9.4 Magnesium 1.9 Total Bilirubin 0.8 AST 19 ALT 29 Alkaline Phosphatase 77 Total Creatine Kinase Troponin I Cancelled 0.054 H* C-Reactive Protein 0.41 H NT-Pro-B Natriuret Pep 5987 H Total Protein 6.6 Albumin 3.5 Globulin 3.1 Albumin/Globulin Ratio 1.1 TSH 1.430 Urine Color Urine Appearance Urine pH Ur Specific [place] Urine Protein Urine Glucose (UA) Urine Ketones Urine Blood Urine Nitrite Urine Bilirubin Urine Urobilinogen Ur Leukocyte Esterase Urine WBC (Auto) Urine RBC (Auto) U Hyaline Cast (Auto) U Epithel Cells (Auto) Urine Bacteria (Auto) Rheumatoid Factor Lyme Disease IgG Ab Lyme Disease IgM Ab 12/25/19 12/25/19 12/25/19 13:45 13:45 13:45 WBC RBC Hgb Hct MCV MCH MCHC RDW Std Deviation RDW Coeff of Nhi Plt Count Immature Gran % (Auto) Neut % (Auto) Lymph % (Auto) [place] % (Auto) Eos % (Auto) Baso % (Auto) Immature Gran # (Auto) Neut # (Auto) Lymph # (Auto) [place] # (Auto) Eos # (Auto) Baso # (Auto) Absolute Nucleated RBC Nucleated RBC % (auto) Platelet Estimate Stomatocytes ESR Sodium Potassium Chloride Carbon Dioxide Anion Gap BUN Creatinine Est Cr Clr Drug Dosing Est GFR ( Amer) Est GFR (Non-Af Amer) BUN/Creatinine Ratio Glucose POC Glucose Uric Acid 11.4 H Calcium Magnesium Total Bilirubin AST ALT Alkaline Phosphatase Total Creatine Kinase 40 Troponin I C-Reactive Protein NT-Pro-B Natriuret Pep Total Protein Albumin Globulin Albumin/Globulin Ratio TSH Urine Color Yellow Urine Appearance Clear Urine pH 6.5 Ur Specific [place] 1.013 Urine Protein Trace H Urine Glucose (UA) Negative Urine Ketones Negative Urine Blood Negative Urine Nitrite Negative Urine Bilirubin Negative Urine Urobilinogen Negative Ur Leukocyte Esterase Trace H Urine WBC (Auto) 5-10 H Urine RBC (Auto) 0-4 U Hyaline Cast (Auto) 0 U Epithel Cells (Auto) 5-10 H Urine Bacteria (Auto) Negative Rheumatoid Factor Lyme Disease IgG Ab Negative Lyme Disease IgM Ab Negative 12/25/19 12/25/19 12/25/19 13:45 17:05 18:26 WBC RBC Hgb Hct MCV MCH MCHC RDW Std Deviation RDW Coeff of Nhi Plt Count Immature Gran % (Auto) Neut % (Auto) Lymph % (Auto) [place] % (Auto) Eos % (Auto) Baso % (Auto) Immature Gran # (Auto) Neut # (Auto) Lymph # (Auto) [place] # (Auto) Eos # (Auto) Baso # (Auto) Absolute Nucleated RBC Nucleated RBC % (auto) Platelet Estimate Stomatocytes ESR 11 Sodium Potassium Chloride Carbon Dioxide Anion Gap BUN Creatinine Est Cr Clr Drug Dosing Est GFR ( Amer) Est GFR (Non-Af Amer) BUN/Creatinine Ratio Glucose POC Glucose 182 H Uric Acid Calcium Magnesium Total Bilirubin AST ALT Alkaline Phosphatase Total Creatine Kinase Troponin I C-Reactive Protein NT-Pro-B Natriuret Pep Total Protein Albumin Globulin Albumin/Globulin Ratio TSH Urine Color Urine Appearance Urine pH Ur Specific [place] Urine Protein Urine Glucose (UA) Urine Ketones Urine Blood Urine Nitrite Urine Bilirubin Urine Urobilinogen Ur Leukocyte Esterase Urine WBC (Auto) Urine RBC (Auto) U Hyaline Cast (Auto) U Epithel Cells (Auto) Urine Bacteria (Auto) Rheumatoid Factor Pending Lyme Disease IgG Ab Lyme Disease IgM Ab 12/25/19 12/25/19 20:13 20:54 WBC RBC Hgb Hct MCV MCH MCHC RDW Std Deviation RDW Coeff of Nhi Plt Count Immature Gran % (Auto) Neut % (Auto) Lymph % (Auto) [place] % (Auto) Eos % (Auto) Baso % (Auto) Immature Gran # (Auto) Neut # (Auto) Lymph # (Auto) [place] # (Auto) Eos # (Auto) Baso # (Auto) Absolute Nucleated RBC Nucleated RBC % (auto) Platelet Estimate Stomatocytes ESR Sodium Potassium Chloride Carbon Dioxide Anion Gap BUN Creatinine Est Cr Clr Drug Dosing Est GFR ( Amer) Est GFR (Non-Af Amer) BUN/Creatinine Ratio Glucose POC Glucose 297 H Uric Acid Calcium Magnesium Total Bilirubin AST ALT Alkaline Phosphatase Total Creatine Kinase Troponin I 0.046 H* C-Reactive Protein NT-Pro-B Natriuret Pep Total Protein Albumin Globulin Albumin/Globulin Ratio TSH Urine Color Urine Appearance Urine pH Ur Specific [place] Urine Protein Urine Glucose (UA) Urine Ketones Urine Blood Urine Nitrite Urine Bilirubin Urine Urobilinogen Ur Leukocyte Esterase Urine WBC (Auto) Urine RBC (Auto) U Hyaline Cast (Auto) U Epithel Cells (Auto) Urine Bacteria (Auto) Rheumatoid Factor Lyme Disease IgG Ab Lyme Disease IgM Ab Diagnostic Findings cxr - cardiomegaly with mild pulmonary edema EKG - ventricularly paced rhythm Code Status & VTE Plan Code Status DNR/DNI VTE Prophylaxis Plan VTE Prophylaxis will be ordered: Yes PG Care Time/CCT Total # of Minutes Spent Total Time Spent with Patient: Total time spent is greater than 50% in coordination of care (as documented) at patient's floor/unit and/or counseling patient: Coding Level of Care Code 22044 Initial Inpt Care Lvl 3 Diagnoses Gout M1A.39X1 Chronicity: chronic Gout etiology: due to renal impairment Gout site: multiple sites Presence of tophus: with tophus Chest pain R07.9 Chest pain type: unspecified Elevated troponin R79.89 Myalgia M79.10 Depression F32.9 Depression Type: unspecified Acute exacerbation of CHF (congestive heart failure) I50.813 Heart failure type: right-sided Chronic respiratory failure with hypoxia J96.11 Coronary artery disease I25.10 Associated angina: without angina Coronary Disease-Associated Artery/Lesion type: [place] artery [place] vs. transplanted heart: [place] heart Hypothyroidism E03.9 Hypothyroidism type: unspecified Thrombocytopenia D69.6 Pacemaker Z95.0 Chronic kidney disease, stage 4 (severe) N18.4 Subdural hematoma S06.5X9A A-fib I48.91 Atrial fibrillation type: unspecified Sleep apnea G47.33 Sleep apnea type: obstructive Dyslipidemia E78.5 Diffuse large B-cell lymphoma of extranodal site C83.39 Diabetes E11.9; Z79.4 Diabetes mellitus complication status: without complication Diabetes mellitus fdc insulin use: with terminal gauger supervisor use Diabetes mellitus type: type 2 DVT prophylaxis Z29.9 (1) Acute exacerbation of CHF (congestive heart failure) Heart failure type: right-sided Qualified Code(s): I50.813 - Acute on chronic right heart failure (2) Sleep apnea Sleep apnea type: obstructive Qualified Code(s): G47.33 - Obstructive sleep apnea (adult) (pediatric) (3) Diabetes Diabetes mellitus complication status: without complication Diabetes mellitus terminal gauger supervisor insulin use: with terminal gauger supervisor use Diabetes mellitus type: type 2 Qualified Code(s): E11.9 - Type 2 diabetes mellitus without complications; 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 (4) Gout Chronicity: chronic Gout etiology: due to renal impairment Gout site: multiple sites Presence of tophus: with tophus Qualified Code(s): M1A.39X1 - Chronic gout due to renal impairment, multiple sites, with tophus (tophi) (5) Coronary artery disease Associated angina: without angina Coronary Disease-Associated Artery/Lesion type: [place] artery [place] vs. transplanted heart: [place] heart Qualified Code(s): I25.10 - Atherosclerotic heart disease of [place] coronary artery without angina pectoris (6) A-fib Atrial fibrillation type: unspecified Qualified Code(s): I48.91 - Unspecified atrial fibrillation (7) Depression Depression Type: unspecified Qualified Code(s): F32.9 - Major depressive disorder, single episode, unspecified (8) Hypothyroidism Hypothyroidism type: unspecified Qualified Code(s): E03.9 - Hypothyroidism, unspecified (9) Chest pain Chest pain type: unspecified Qualified Code(s): R07.9 - Chest pain, unspecified
[2019-12-25 16:09] LABS: C Reactive Protein 0.41 mg/dl (0-0.29)
[2019-12-25] MEDS ORDERED: predniSONE 20 MG TAB PO STA (16:34)
[2019-12-25] MEDS ORDERED: COLCHICINE 0.6 MG TAB PO ONE (16:34)
[2019-12-25 16:49] LABS: Uric Acid 11.4 mg/dl (2.6-7.2)
[2019-12-25] MEDS ORDERED: SODIUM CHLORIDE 0.65% NA SOLN 45 ML (OCEAN) PRN (18:21)
[2019-12-25] MEDS ORDERED: ACETAMINOPHEN 325 MG TAB PO PRN (18:21)
[2019-12-25] MEDS ORDERED: NITROGLYCERIN SL 0.4 MG/TAB TAB SL PRN (18:21)
[2019-12-25] MEDS ORDERED: ALBUT/IPRATROP 3MG/0.5MG NEB 3 ML VIAL NEB PRN (18:21)
[2019-12-25] MEDS ORDERED: ONDANSETRON INJ 2 MG/ML 2 ML VIAL IV PRN (18:21)
[2019-12-25] MEDS ORDERED: GLUCAGON FOR INJ 1 MG VIAL IM PRN (18:45)
[2019-12-25] MEDS ORDERED: CARBOHYDRATES FOR HYPOGLYCEMIA PO PRN (18:45)
[2019-12-25] MEDS ORDERED: DEXTROSE 50% 50 ML SYRINGE IV PRN (18:45)
[2019-12-25] MEDS ORDERED: GLUCOSE 40% GEL 15 GM TUBE PO PRN (18:45)
[2019-12-25] MEDS ORDERED: GLUCOSE 10 TABS/TUBE PO PRN (18:45)
[2019-12-25] MEDS: INSULIN ASPART 100 UNITS/ML 3 ML PEN SC SCH ×2 (19:28→21:11)
[2019-12-25] MEDS ORDERED: INSULIN GLARGINE SOLOSTAR 100 UNITS/ML 3 ML PEN SQ SCH (21:00)
[2019-12-25] MEDS: SERTRALINE HCL 50 MG TABLET PO SCH (21:09)
[2019-12-25] MEDS: APIXABAN 2.5 MG TAB PO SCH (21:09)
[2019-12-25] MEDS: METOPROLOL TARTRATE 50 MG TAB PO SCH (21:10)
[2019-12-25] MEDS: OXYCODONE HCL IR 5 MG TAB (IMMEDIATE RELEASE) PO PRN (21:45)
[2019-12-26 04:58] LABS: BUN Creatinine Ratio 23.2 (10-20); Calcium 8.9 mg/dl (8.5-10.1); Creatinine Clr Calc Pharmacy 24.7 ml/min; Est GFR (African American) 28.6; Est GFR (Non-African American) 24.7; Potassium 4.6 mmol/L (3.5-5.1)
[2019-12-26 05:02] LABS: Troponin I 0.033 ng/ml (0-0.045)
[2019-12-26] MEDS: LEVOTHYROXINE SODIUM 25 MCG TABLET PO SCH (05:49)
[2019-12-26] MEDS: predniSONE 10 MG TABLET PO SCH (08:04)
[2019-12-26] MEDS: ASCORBIC ACID 500 MG TAB PO SCH (08:05)
[2019-12-26] MEDS: MULTIVITAMIN TAB PO SCH (08:05)
[2019-12-26] MEDS: SENNA 8.6 MG TAB PO SCH (08:05)
[2019-12-26] MEDS: CLOPIDOGREL BISULFATE 75 MG TAB PO SCH (08:05)
[2019-12-26] MEDS: METOPROLOL TARTRATE 25 MG TAB PO SCH (08:06)
[2019-12-26] MEDS: APIXABAN 2.5 MG TAB PO SCH ×2 (08:06→21:07)
[2019-12-26] MEDS: INSULIN GLARGINE SOLOSTAR 100 UNITS/ML 3 ML PEN SQ SCH ×2 (08:07→21:07)
[2019-12-26] MEDS: INSULIN ASPART 100 UNITS/ML 3 ML PEN SC SCH ×4 (08:09→21:10)
[2019-12-26] MEDS: POLYETHYLENE (MIRALAX) 17 GM PACK PO SCH (08:14)
--- NOTE | 2019-12-26 09:04 | XCELERA ---
[id number]
[2019-12-26] MEDS ORDERED: FUROSEMIDE 60 MG in SYRINGE 0 ML IV ONE (13:15)
--- NOTE | 2019-12-26 18:38 | Hospitalist Progress Note ---
Date of Service December 26, 2019 Assessment & Plan (1) Gout: Physical exam is c/w long-standing gout given the tophi seen in various joints. Uric acid level is markedly elevated (>11). I believe her polyarticular arthritis is gouty arthritis. Much improved with prednisone 20mg yesterday. Will continue prednisone at 10mg/day starting today. Then would d/c her on 5mg/day and keep her on this for several weeks. Recommend rheumatology referral given the suspected gout and suspected PMR. Can send to Dr Levine or Klever at [facility]. Cannot rule out RA but less likely. RF sent & pending. Consider hand x-rays to check for erosions. Once symptoms and signs are improved would start allopurinol in a few weeks from now. CKD likely contributing to gout issues. (2) Myalgia: diffuse, widespread. DRAMATIC IMPROVEMENT overnight with low-dose prednisone. This would suggest PMR. CPK, vitamin D, vitamin B12 all wnl. She has had diffuse myalgias for months, especially in the arms b/l, c/w with PMR. oddly her inflammatory markers were not high but [id number] she had marked improvement overnight. would d/c on 5mg of prednisone and sent to rheumatology for this and suspected gout post-discharge. patient with depression - this could make myalgias worse as well; SSRI started this admission. (3) Acute exacerbation of CHF (congestive heart failure): acute/chronic right-sided ventricular CHF acute/chronic diastolic CHF echo with ongoing right-sided CHF EF modestly worse this echo as well give another 40mg IV lasix today and re-eval for ongoing IV diuretics tomorrow otherwise resume PO diuretics tomorrow (4) Chest pain: atypical for ischemic chest pain. symptoms do NOT feel like previous episodes of chest pain from CAD. recheck echoed - no wall motion abnormalities no pericardial effusion pain resolved troponins scantly elevated; suspect due to CKD I suspect chest pains were possibly mylagia related rather than ischemic (5) Elevated troponin: see "chest pain" above I do not feel she has had ACS the elevation was likely due to CKD stage 4 (6) Depression: present at least 6 weeks or longer. daily crying spells. lack of energy, considerable fatigue, etc. started zoloft 25mg HS. increase to 50mg in 1 week. strongly consider outpatient counseling. (7) Chronic respiratory failure with hypoxia: on home O2 NC, 2-3 L continuously. 2nd to OHS? 2nd to pulmonary HTN/cor pulmonale? other? (8) Coronary artery disease: history of. follows with Dr Iraheta. cont plavix. cont beta suraj. statin intolerant. see above re: troponins. (9) Hypothyroidism: TSH wnl cont synthroid 25mcg daily. (10) Thrombocytopenia: chronic, low 100s at baseline. low-grade ITP? other? despite level she is stable without any bleeding issues. (11) Pacemaker: stable ventricularly paced (12) Chronic kidney disease, stage 4 (severe): baseline Cr high 1's stable today bmp in am due to diuresis (13) Subdural hematoma: history of such s/p craniotomy CT head w/o ICH (14) A-fib: takes eliquis 2.5mg BID cont beta suraj pacer in place (15) Sleep apnea: on BIPAP at home was not keen on using hospital BIPAP due to lack of comfort JANICE likely contributes to chronic fatigue (16) Dyslipidemia: statin intolerant (17) Diffuse large B-cell lymphoma of extranodal site: history of such, 2012 s/p chemo with remission if fatigue, sweats, etc continue would check CT chest/abd/pelvis to look for enlarged lymph nodes, etc (18) Diabetes: cont lantus but increase to 40 units BID due to prednisone usage novolog - correction factor 12 with carb ratio 1:4 DM diet (19) DVT prophylaxis: eliquis BID PT, OT evals done; cleared for home updated today by phone anticipate d/c home on 12/26 with low-dose prednisone 5mg/day and referral to rheumatology for suspected gout and suspected PMR Admission and Anticipated Discharge Date Admission Date: December 25, 2019 Subjective patient reports DRAMATIC improvement in myalgias and joint pains overnight with prednisone she states she woke up and "felt the best she had in months." when asked specifically what was better she stated -- -right wrist pain/swelling -ankle pains b/l -diffuse muscle aches improved especially in arms -"flu-like" symptoms dramatically better dyspnea improved no chest pains she slept ok last night she is very pleased by progress ! Review of Systems Constitutional: no fever, no chills, no fatigue and no anorexia Respiratory: + dyspnea on exertion (Chronic at baseline); no cough and no dyspnea (None at rest) Cardiovascular: no chest pain Gastrointestinal: no abdominal pain Physical Exam Constitutional: + obese; no acute distress and no altered mental status ENMT: external ear and nose normal, oropharynx normal Respiratory: Auscultation: + diminished lung sounds (Bases b/l) and + rales (Faint, b/l bases, fine in nature) Cardiovascular: Rate/Rhythm: regular rate and regular rhythm Heart Sounds: normal S1 and normal S2; no murmur Vessels: posterior tibial pulses present and dorsalis pedis pulses present; no JVD Extremities: + edema (1+ b/l) Gastrointestinal (Abdomen): Inspection/Auscultation: + abdomen distended (Upper abdomen) and normal bowel sounds Percussion/Palpation: abdomen nontender and no hepatosplenomegaly Musculoskeletal: synovitis of both wrists improved; synovitis both ankles improved; gouty tophi DIP 3rd finger on right Skin: + rash (Stasis changes b/l shins but no cellulitis ) Psychiatric: Orientation: alert and oriented x 3 Results & Data Results & Data ([facility]) Vital Signs (Past 12 Hours) Vital Signs Temp Pulse Pulse Resp BP Pulse Ox 12/26/19 11:59 36.6 C 71 20 150/80 H 95 12/26/19 07:03 70 12/26/19 07:00 36.4 C L 71 20 142/78 H 97 Laboratory Results Laboratory Results - last 24 hr 12/25/19 12/25/19 12/26/19 20:13 20:54 03:52 Sodium 141 Potassium 4.6 Chloride 99 Carbon Dioxide 36 H Anion Gap 6.0 BUN 44 H Creatinine 1.91 H Est Cr Clr Drug Dosing 24.7 Est GFR ( Amer) 28.6 Est GFR (Non-Af Amer) 24.7 BUN/Creatinine Ratio 23.2 H Glucose 293 H POC Glucose 297 H Calcium 8.9 Troponin I 0.046 H* 0.033 12/26/19 12/26/19 12/26/19 07:28 11:38 16:45 Sodium Potassium Chloride Carbon Dioxide Anion Gap BUN Creatinine Est Cr Clr Drug Dosing Est GFR ( Amer) Est GFR (Non-Af Amer) BUN/Creatinine Ratio Glucose POC Glucose 273 H 188 H 175 H Calcium Troponin I PG Care Time/CCT Total # of Minutes Spent Total Time Spent with Patient: Total time spent is greater than 50% in coordination of care (as documented) at patient's floor/unit and/or counseling patient: Coding Level of Care Code 71777 Subseq Hosp Care Lvl 3 Diagnoses Gout M1A.39X1 Chronicity: chronic Gout etiology: due to renal impairment Gout site: multiple sites Presence of tophus: with tophus Myalgia M79.10 Acute exacerbation of CHF (congestive heart failure) I50.813 Heart failure type: right-sided Chest pain R07.9 Chest pain type: unspecified Elevated troponin R79.89 Depression F32.9 Depression Type: unspecified Chronic respiratory failure with hypoxia J96.11 Coronary artery disease I25.10 Associated angina: without angina Coronary Disease-Associated Artery/Lesion type: [place] artery [place] vs. transplanted heart: [place] heart Hypothyroidism E03.9 Hypothyroidism type: unspecified Thrombocytopenia D69.6 Pacemaker Z95.0 Chronic kidney disease, stage 4 (severe) N18.4 Subdural hematoma S06.5X9A A-fib I48.91 Atrial fibrillation type: unspecified Sleep apnea G47.33 Sleep apnea type: obstructive Dyslipidemia E78.5 Diffuse large B-cell lymphoma of extranodal site C83.39 Diabetes E11.9; Z79.4 Diabetes mellitus complication status: without complication Diabetes mellitus continuous churn buttermaker insulin use: with continuous churn buttermaker use Diabetes mellitus type: type 2 DVT prophylaxis Z29.9 (1) Acute exacerbation of CHF (congestive heart failure) Heart failure type: right-sided Qualified Code(s): I50.813 - Acute on chronic right heart failure (2) Sleep apnea Sleep apnea type: obstructive Qualified Code(s): G47.33 - Obstructive sleep apnea (adult) (pediatric) (3) Diabetes Diabetes mellitus complication status: without complication Diabetes mellitus continuous churn buttermaker insulin use: with continuous churn buttermaker use Diabetes mellitus type: type 2 Qualified Code(s): E11.9 - Type 2 diabetes mellitus without complications; Z79.4 - halfway (current) use of insulin (4) Gout Chronicity: chronic Gout etiology: due to renal impairment Gout site: multiple sites Presence of tophus: with tophus Qualified Code(s): M1A.39X1 - Chronic gout due to renal impairment, multiple sites, with tophus (tophi) (5) Coronary artery disease Associated angina: without angina Coronary Disease-Associated Artery/Lesion type: [place] artery [place] vs. transplanted heart: [place] heart Qualified Code(s): I25.10 - Atherosclerotic heart disease of [place] coronary artery without angina pectoris (6) A-fib Atrial fibrillation type: unspecified Qualified Code(s): I48.91 - Unspecified atrial fibrillation (7) Depression Depression Type: unspecified Qualified Code(s): F32.9 - Major depressive disorder, single episode, unspecified (8) Hypothyroidism Hypothyroidism type: unspecified Qualified Code(s): E03.9 - Hypothyroidism, unspecified (9) Chest pain Chest pain type: unspecified Qualified Code(s): R07.9 - Chest pain, unspecified
[2019-12-26] MEDS: OXYCODONE HCL IR 5 MG TAB (IMMEDIATE RELEASE) PO PRN (21:06)
[2019-12-26] MEDS: METOPROLOL TARTRATE 50 MG TAB PO SCH (21:08)
[2019-12-26] MEDS: SERTRALINE HCL 50 MG TABLET PO SCH (21:09)
[2019-12-26] MEDS ORDERED: COLCHICINE 0.6 MG TAB PO ONE (21:30)
[2019-12-27] MEDS: HEPARIN 100 UNIT/ML 5ML FLUSH FLUSH PRN ×4 (00:13→15:34)
[2019-12-27] MEDS: LEVOTHYROXINE SODIUM 25 MCG TABLET PO SCH (05:46)
[2019-12-27 06:51] LABS: BUN Creatinine Ratio 27.4 (10-20); Calcium 8.8 mg/dl (8.5-10.1); Creatinine Clr Calc Pharmacy 23.1 ml/min; Est GFR (African American) 26.7; Potassium 3.9 mmol/L (3.5-5.1)
[2019-12-27] MEDS: APIXABAN 2.5 MG TAB PO SCH (08:15)
[2019-12-27] MEDS: MULTIVITAMIN TAB PO SCH (08:16)
[2019-12-27] MEDS: predniSONE 10 MG TABLET PO SCH (08:17)
[2019-12-27] MEDS: CLOPIDOGREL BISULFATE 75 MG TAB PO SCH (08:17)
[2019-12-27] MEDS: SENNA 8.6 MG TAB PO SCH (08:17)
[2019-12-27] MEDS: ASCORBIC ACID 500 MG TAB PO SCH (08:18)
[2019-12-27] MEDS: POLYETHYLENE (MIRALAX) 17 GM PACK PO SCH (08:18)
[2019-12-27] MEDS: INSULIN ASPART 100 UNITS/ML 3 ML PEN SC SCH ×2 (08:22→13:28)
[2019-12-27] MEDS: INSULIN GLARGINE SOLOSTAR 100 UNITS/ML 3 ML PEN SQ SCH (08:23)
[2019-12-27] MEDS: METOPROLOL TARTRATE 25 MG TAB PO SCH (11:13)
[2019-12-27] MEDS ORDERED: FAMOTIDINE 20 MG TAB PO SCH (12:00)
--- NOTE | 2019-12-27 15:25 | Discharge Summary ---
Date of Service December 27, 2019 Admission HPI Per Admitting Provider 79yo female with chronic hypoxic respiratory failure on home O2, 2-3L, CAD, COPD, morbid obesity, and T2DM - presenting with several complaints after her PCP referred her to the emergency room. She has diffuse muscle aches in "all my muscles" every day. Symptoms are worse in the evening. Muscles are so sore that she feels like she has flu. She has a hard time rising from a seated position and has noted arm weakness as well. She has had associated joint pain as well in several joints - fingers, right wrist, right shoulder, ankles. She has swelling in these joints. Joints are stiff. No fevers. Feels cold all the time. No weight loss. Has had weight gain - 10 pounds - since her left shoulder fracture several months ago. The muscle pain and joint pain is causing ambulation issues. She has had extreme fatigue and is tired all the time despite getting adequate hours of sleep. Napping during the day which is unusual for her. Appetite has been poor. Started 6 weeks ago. No loss of taste or smell. Admits to frequent crying spells starting 6 weeks ago. Feels depressed. "I feel like life is over." The COVID-19 pandemic has caused anxiety and the quarantining has made her depressed. Complains of chest "aches" periodically. Center of chest in location as well as left side of chest. It feels like the same aches she has in her limbs and other regions. Symptoms occur at rest or with activity. Feels completely different than previous CAD pain. No pleuritic component to it. Lastly, she has had worsening dyspnea for 6 weeks. Worse with activity. Dyspnea present at night-time as well. Principal Diagnosis This AM, pt stated she felt mild nausea and "gassy". She states that she takes pepcid PRN at home generally for this. Nursing was at bedside and states this was not ordered. He stated pt ate about 50% of her breakfast. Pt said she felt a bit "dizzy" as well. Nursing states she has not been OOB yet today. Further discussion reveals pt felt a bit lightheaded. She states "I never should have ordered pancakes. I don't like pancakes. My usually helps me with my food and he can't be here." Pt states she feels much better otherwise. No further myalgias or joint pains. Pt denies fever, SOB, chest pain, abd pain, v/c/d, LE pain or swelling. Pt given a pepcid dose. Nursing reports lunch without issue. She was able to walk around the nursing unit without issues and reported feeling much improved. She states she would like to go home. Discharge Exam Constitutional WD/WN, vitals as above Eyes normal visual edmonds by confrontation and + anicteric sclerae Neck normal visual inspection and trachea midline Respiratory normal respiratory effort, lungs clear to auscultation Cardiovascular Rate/Rhythm: regular rate and regular rhythm Gastrointestinal (Abdomen) Inspection/Auscultation: + abdomen distended (pt states usual level of distentio n) Percussion/Palpation: abdomen soft; abdomen nontender Musculoskeletal Head/Neck/Chest: normocephalic and head atraumatic Skin no rashes, warm and dry Neurologic awake; not confused Speech / Cognition: normal speech Psychiatric A+Ox3, euthymic affect Discharge Data Allergies Allergy/AdvReac Type Severity Reaction Status Date / Time eptifibatide Allergy Severe ANAPHYLAXIS Verified 12/25/19 15:43 hornet venom Allergy Severe WASP VENOM Verified 12/25/19 15:43 PROTEIN-ANAPHYLAXIS levofloxacin [From Levaquin] Allergy Severe Hives Verified 12/25/19 15:43 atorvastatin Allergy Unknown MUSCLE PAIN Verified 12/25/19 15:43 ezetimibe Allergy Unknown MUSCLE PAIN Verified 12/25/19 15:43 simvastatin Allergy Unknown MUSCLE PAIN Verified 12/25/19 15:43 amlodipine AdvReac Severe Nausea Verified 12/25/19 15:43 azithromycin AdvReac Intermediate Palpitation Verified 12/25/19 15:43 s warfarin AdvReac Intermediate EXTREME Verified 12/25/19 15:43 BLEEDING TIMES codeine AdvReac Mild VOMITING Verified 12/25/19 15:43 gemfibrozil AdvReac Mild NAUSEA Verified 12/25/19 15:43 meperidine AdvReac Mild VOMITING Verified 12/25/19 15:43 ondansetron AdvReac Mild vomiting Verified 12/25/19 15:43 ranitidine [From Zantac] AdvReac Mild dyspepsia Verified 12/25/19 15:43 cortisone AdvReac Unknown INCREASES Verified 12/25/19 15:43 SUGAR AND VOMITING? hydralazine AdvReac Unknown VOMITING Verified 12/25/19 15:43 ibuprofen AdvReac Unknown VOMITING Verified 12/25/19 15:43 AND DIARRHEA iodine AdvReac Unknown SHELLFISH Verified 12/25/19 15:43 - VOMITING shellfish derived AdvReac Unknown VOMITING Verified 12/25/19 15:43 Sulfa (Sulfonamide AdvReac Unknown VOMITING Verified 12/25/19 15:43 Antibiotics) Consultations 12/25/19 15:20 ED Decision to Admit Stat Ordered Studies 12/25/19 12:59 CT head/brain wo con Stat Hospital Course (1) Gout: Physical exam is c/w long-standing gout given the tophi seen in various joints. Uric acid level is markedly elevated (>11). Polyarticular arthritis is possibly gouty arthritis. Much improved with prednisone 20mg on admission. d/c on 5mg/day and keep her on this for several weeks. Recommend rheumatology referral given the suspected gout and suspected PMR. Referral made on d/c and office to call pt with appt Cannot rule out RA but less likely. RF sent & pending on d/c Consider hand x-rays to check for erosions. Once symptoms and signs are improved t/c starting allopurinol in a few weeks CKD likely contributing to gout issues. (2) Myalgia: diffuse, widespread. DRAMATIC IMPROVEMENT overnight with low-dose prednisone. Suggests PMR. CPK, vitamin D, vitamin B12 all wnl. She has had diffuse myalgias for months, especially in the arms b/l, c/w with PMR. oddly her inflammatory markers were not high but [id number] she had marked improvement overnight. D/C on 5mg of prednisone and sent to rheumatology for this and suspected gout post-discharge. patient with depression - this could make myalgias worse as well; SSRI started this admission. (3) Acute exacerbation of CHF (congestive heart failure): acute/chronic right-sided ventricular CHF acute/chronic diastolic CHF echo with ongoing right-sided CHF EF modestly worse this echo as well resume PO diuretics on d/c (4) Chest pain: atypical for ischemic chest pain. symptoms do NOT feel like previous episodes of chest pain from CAD. recheck echoed - no wall motion abnormalities no pericardial effusion pain resolved troponins scantly elevated; suspect due to CKD I suspect chest pains were possibly mylagia related rather than ischemic (5) Elevated troponin: see "chest pain" above I do not feel she has had ACS the elevation was likely due to CKD stage 4 (6) Depression: present at least 6 weeks or longer. daily crying spells. lack of energy, considerable fatigue, etc. started zoloft 25mg HS. increase to 50mg in 1 week. strongly consider outpatient counseling. (7) Chronic respiratory failure with hypoxia: on home O2 NC, 2-3 L continuously. 2nd to OHS? 2nd to pulmonary HTN/cor pulmonale? other? (8) Coronary artery disease: history noted follows with Dr Iraheta. cont plavix. cont beta suraj. statin intolerant. see above re: troponins. (9) Hypothyroidism: TSH wnl cont synthroid 25mcg daily. (10) Thrombocytopenia: chronic, low 100s at baseline. low-grade ITP? other? despite level she is stable without any bleeding issues. (11) Pacemaker: stable ventricularly paced (12) Chronic kidney disease, stage 4 (severe): baseline Cr high 1's stable today bmp in am due to diuresis (13) Subdural hematoma: history noted s/p craniotomy CT head w/o ICH (14) A-fib: takes eliquis 2.5mg BID cont beta suraj pacer in place (15) Sleep apnea: on BIPAP at home was not keen on using hospital BIPAP due to lack of comfort JANICE likely contributes to chronic fatigue (16) Dyslipidemia: statin intolerant (17) Diffuse large B-cell lymphoma of extranodal site: history of such, 2012 s/p chemo with remission if fatigue, sweats, etc continue would check CT chest/abd/pelvis to look for enlarged lymph nodes, etc (18) Diabetes: Home regimen DM diet (19) DVT prophylaxis: eliquis BID PT, OT evals done; cleared for home Total Time Total Time Spent Total Time Spent (In Minutes): >30 Total Time Includes: Examination of the Patient, Discharge Planning, Medication Reconciliation and Other Discharge Plan Discharge Items Patient Disposition: Home - Self-Care Reason For Visit: ACUTE/CHRONIC CHF,CHEST PAIN,DIFFUSE BODY ACHES Discharge Diagnosis: Diffuse body aches, possibly polymyalgia rheumatica Activity: Resume your previous activity Non-emergency contact: Primary Care Provider Call non-emergency contact if: you have any medication questions, your symptoms worsen and your pain is worsening Follow-up/Referrals: Lizet Jeter, [Primary Care Provider] - 12/31/19 8:10 am (Please, follow up with Dr. Lizet Jeter on TuesdayDecember 30 at 8:10 am. *If you need to change this appointment, call the office at [phone].) Van Hayden MD [Physician] - (Please, follow up at [facility] with Dr. Hayden. *A nurse from this office will contact you with the appointment details. The office is located at [address] [place] [address] in [place]. This is across the road from the entrance to [facility]. If you have any questions, call the office at [phone].) Diet: Carb Consistent or DM2 Addtl Attending Provider Instructions: As we discussed, steroids can cause your blood sugars to elevate, even if you are eating the same foods you would normally eat. You should check your blood sugars before breakfast and each meal to determine if you will need more insulin while you are on steroids, especially if the steroids are going to be a terminal make up operator medication. You should take these numbers with your to your PCP visits. Keep track of your body and joint aches. You have been started on a lower dose of steroids, but some people require more, some people require less. You want to take the least amount of any medication, so if possible, work with the chemical plant technical director to decrease this dose. You have been started on zoloft to help with your depression. You should take 1/2 tablet a day for a week and then increase to a full tablet per day after that time. Our shoe caser called the rheumatology office at [facility]. They are going to call you with an appt time. If you do not hear from them, you should call the number listed above for follow up. Pending Studies at Discharge: Yes Studies:: Autoimmune labs Final blood culture (prelim neg) Stand-Alone Forms: [employer], Smoking Cessation Medications and DC Order Prescriptions: New sertraline 50 mg Tablet 25 mg PO HS Qty: 30 RF: 0 prednisone 10 mg Tablet 5 mg PO QAM Qty: 30 RF: 0 Continued nitroglycerin 0.4 mg tablet, sublingual 0.4 mg SL Q5M PRN (Reason: Chest Pain) Qty: 25 RF: 0 clopidogrel [Plavix] 75 mg tablet 75 mg PO QAM Qty: 90 RF: 3 multivitamin Tablet 1 tab PO QAM RF: 0 ascorbic acid (vitamin C) [Vitamin C] 1,000 mg Tablet 1,000 mg PO QAM RF: 0 ergocalciferol (vitamin D2) [Vitamin D2] 50,000 unit Capsule 50,000 unit PO FR RF: 0 levothyroxine [Synthroid] 25 mcg tablet 25 mcg PO QAM RF: 0 furosemide [Lasix] 40 mg tablet 40 mg PO HS PRN (Reason: Edema) RF: 0 insulin lispro [Humalog KwikPen Insulin] 100 unit/mL insulin pen 18 unit subcut QDL RF: 0 insulin lispro [Humalog KwikPen Insulin] 100 unit/mL insulin pen 11 unit subcut QDB RF: 0 insulin lispro [Humalog KwikPen Insulin] 100 unit/mL insulin pen 28 unit subcut QDD RF: 0 buspirone 10 mg tablet 10 mg PO TID RF: 0 furosemide [Lasix] 80 mg tablet 80 mg PO QAM RF: 0 metoprolol tartrate [Lopressor] 50 mg tablet 50 mg PO UD RF: 0 ipratropium-albuterol 0.5 mg-3 mg(2.5 mg base)/3 mL Solution For Nebulization 3 ml NEB QIDR PRN (Reason: shortness of breath or wheezing) Qty: 90 RF: 0 Eliquis 5 mg tablet 2.5 mg PO BID RF: 0 sennosides [Senokot] 8.6 mg Tablet 17.2 mg PO QAM Qty: 60 RF: 0 polyethylene glycol 3350 [Miralax] 17 gram Powder In Packet 17 g PO DAILY Qty: 1 RF: 0 oxycodone 5 mg Tablet 5 mg PO Q6H PRN (Reason: pain) Qty: 20 RF: 0 (DME) Oxygen Home Liters Per Minute See Rx Instructions .ROUTE .MEDSUPPLY Qty: 1 RF: 0 sodium chloride [Saline Nasal Mist] 0.65 % aerosol,spray 2 sprays INTNAS QID PRN (Reason: nasal congestion or dry nose) Qty: 45 RF: 0 Basaglar KwikPen U-100 Insulin 100 unit/mL (3 mL) insulin pen 30 units subcut BID RF: 0 Discharge Orders: Discharge Order (Routine); Ordered 12/27/19 Ordered By: Bridgette Hernandez Admission Data Admit Date/Time: 12/25/19 16:34 Attending Provider: Bridgette Hernandez Admit Provider: Alfredo Goldberg Primary Care Provider: Lizet Jeter Other Providers: Alfredo Goldberg Other Interventions: Discharge Summary Assessment (RN) Last Done: 12/27/19 15:24 DC Date/Time DO NOT enter until pt leaves facility: 12/27/19 16:41 Coding Level of Care Code D/C Day Management >30 mins Diagnoses Gout M1A.39X1 Chronicity: chronic Gout etiology: due to renal impairment Gout site: multiple sites Presence of tophus: with tophus Myalgia M79.10 Acute exacerbation of CHF (congestive heart failure) I50.813 Heart failure type: right-sided Chest pain R07.9 Chest pain type: unspecified Elevated troponin R79.89 Depression F32.9 Depression Type: unspecified Chronic respiratory failure with hypoxia J96.11 Coronary artery disease I25.10 Associated angina: without angina Coronary Disease-Associated Artery/Lesion type: [place] artery [place] vs. transplanted heart: [place] heart Hypothyroidism E03.9 Hypothyroidism type: unspecified Thrombocytopenia D69.6 Pacemaker Z95.0 Chronic kidney disease, stage 4 (severe) N18.4 Subdural hematoma S06.5X9A A-fib I48.91 Atrial fibrillation type: unspecified Sleep apnea G47.33 Sleep apnea type: obstructive Dyslipidemia E78.5 Diffuse large B-cell lymphoma of extranodal site C83.39 Diabetes E11.9; Z79.4 Diabetes mellitus complication status: without complication Diabetes mellitus terminal make up operator insulin use: with terminal make up operator use Diabetes mellitus type: type 2 DVT prophylaxis Z29.9
== END 2019-12-27 16:41 | disposition home or self-care (01) | DRG 553 ==
LOC: ED 12:13 → 2N 16:34 → SUATTDRO 16:34 → 2N 18:17

== ENCOUNTER 2020-05-08 10:56 | Inpatient (IN) ==
[2020-05-08] MEDS ORDERED: FUROSEMIDE 40 MG/4 ML VIAL IV STA (11:32)
--- NOTE | 2020-05-08 11:35 | Emergency Department Note ---
History of Present Illness General Chief complaint: Shortness of Breath/Dyspnea Stated complaint: PULSE RATE 44, DIZZY SENT BY Time Seen by Provider: 05/08/20 11:23 Source: patient History of Present Illness Provider complaint: Shortness of breath Onset (ago): day(s) Location: chest Severity: moderate Pain Consistency: + constant Maximum Pain Intensity: 7 Quality: + other (Short of breath) Relieved By: + other (Oxygen) Associated symptoms: + nausea/vomiting (Nausea without vomiting); no chest pain, no cough, no fever/chills and no headaches This is a 80-year-old female sent over from her doctor's office for evaluation of shortness of breath with abnormal vital signs. The patient states that she has been short of breath for years due to her CHF and COPD. Her symptoms got worse today. She went to her doctor's office where they noted that her pulse ox dropped into the 80s while walking despite being on oxygen. They also noticed that her heart rate dropped to 44. She states she was lightheaded at the time. She denies having any chest pain or discomfort. She was sent here by her doctors office for hospitalization. The patient denies any fever, cough or cold symptoms, vomiting or urinary symptoms. She does state that her stools are loose and she had some nausea as well. She denies any exposure to COVID-19. She denies any loss of taste or smell. Her doctor noted that she had a 6 pound weight gain in the past week. Home Medications Home Medications Medication Instructions Recorded Confirmed Type ascorbic acid (vitamin C) [Vitamin 1,000 mg PO QAM 06/20/18 05/08/20 History C] ergocalciferol (vitamin D2) 50,000 unit PO WK 06/20/18 05/08/20 History [Vitamin D2] multivitamin 1 tab PO QAM 06/20/18 05/08/20 History nitroglycerin 0.4 mg sublingual 0.4 mg SL Q5M PRN #25 tab 02/26/19 05/08/20 History tablet insulin lispro [Humalog KwikPen 11 unit SUBCUT QDB 04/22/19 05/08/20 History Insulin] insulin lispro [Humalog KwikPen 18 unit SUBCUT QDL 04/22/19 05/08/20 History Insulin] insulin lispro [Humalog KwikPen 20 unit SUBCUT QDD 04/22/19 05/08/20 History Insulin] levothyroxine [Synthroid] 25 mcg PO QAM 06/04/19 05/08/20 History buspirone 10 mg PO BID 07/12/19 05/08/20 History ipratropium-albuterol 3 ml NEB QIDR PRN #90 ml 07/17/19 05/08/20 Rx Oxygen Home #1 ea 09/19/19 04/14/20 Rx sennosides [Senokot] 17.2 mg PO QAM #60 tab 09/19/19 05/08/20 Rx sodium chloride [Saline Nasal Mist] 2 sprays INTNAS QID PRN #45 ml 09/19/19 05/08/20 Rx Basaglar KwikPen U-100 Insulin 30 units SUBCUT BID 12/25/19 05/08/20 History furosemide 40 mg tablet 40 mg PO QAM tab 01/14/20 05/08/20 History metoprolol tartrate 50 mg tablet 25 - 50 mg PO AMPM tab 01/14/20 05/08/20 History acetaminophen [Tylenol Extra 500 mg PO Q6H PRN 02/06/20 05/08/20 History Strength] pregabalin [Lyrica] 200 mg PO BID 02/06/20 05/08/20 History allopurinol 100 mg tablet 100 mg PO QAM 04/09/20 05/08/20 History apixaban 5 mg tablet 5 mg PO BID #60 tab 04/09/20 05/08/20 Rx prednisone 5 mg tablet 5 mg PO QAM 04/09/20 05/08/20 History clopidogrel [Plavix] 75 mg PO QAM 05/08/20 05/08/20 History famotidine 20 mg PO BID 05/08/20 05/08/20 History Allergies Allergy/AdvReac Type Severity Reaction Status Date / Time eptifibatide Allergy Severe ANAPHYLAXIS Verified 05/08/20 12:43 hornet venom Allergy Severe WASP VENOM Verified 05/08/20 12:43 PROTEIN-ANAPHYLAXIS levofloxacin [From Levaquin] Allergy Severe Hives Verified 05/08/20 12:43 atorvastatin Allergy Unknown MUSCLE PAIN Verified 05/08/20 12:43 ezetimibe Allergy Unknown MUSCLE PAIN Verified 05/08/20 12:43 simvastatin Allergy Unknown MUSCLE PAIN Verified 05/08/20 12:43 amlodipine AdvReac Severe Nausea Verified 05/08/20 12:43 azithromycin AdvReac Intermediate Palpitation Verified 05/08/20 12:43 s warfarin AdvReac Intermediate EXTREME Verified 05/08/20 12:43 BLEEDING TIMES codeine AdvReac Mild VOMITING Verified 05/08/20 12:43 gemfibrozil AdvReac Mild NAUSEA Verified 05/08/20 12:43 meperidine AdvReac Mild VOMITING Verified 05/08/20 12:43 ondansetron AdvReac Mild vomiting Verified 05/08/20 12:43 ranitidine [From Zantac] AdvReac Mild dyspepsia Verified 05/08/20 12:43 cortisone AdvReac Unknown INCREASES Verified 05/08/20 12:43 SUGAR AND VOMITING? hydralazine AdvReac Unknown VOMITING Verified 05/08/20 12:43 ibuprofen AdvReac Unknown VOMITING Verified 05/08/20 12:43 AND DIARRHEA iodine AdvReac Unknown SHELLFISH Verified 05/08/20 12:43 - VOMITING shellfish derived AdvReac Unknown VOMITING Verified 05/08/20 12:43 Sulfa (Sulfonamide AdvReac Unknown VOMITING Verified 05/08/20 12:43 Antibiotics) Past Med/Surg History Medical History Angina pectoris Chronic kidney disease, stage 4 (severe) CKD (chronic kidney disease) stage 3, GFR 30-59 ml/min COPD with acute exacerbation Diabetes Diabetic foot ulcer associated with type 2 diabetes mellitus Diastolic CHF 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) Dyslipidemia HTN (hypertension) Hypertrophic cardiomyopathy apical variant Hypothyroidism Knee arthropathy Lung cancer Myocardial infarction X4 Peripheral neuropathy Proteinuria Subdural hematoma Thrombocytopenia chronic; baseline platelets low 100's Vitamin D deficiency Surgical History History of cardioversion MULTIPLE History of cataract surgery History of lung surgery PARTIAL LEFT LOBECTOMY (2013) Hx of brain surgery 2017 S/P FALL/INJURY; SUBSEQUENT BLOOD CLOT EVACUATION Knee joint replacement status S/P cardiac catheterization 7 TOTAL; CARDIAC STENTS X6 S/P hysterectomy S/P tonsillectomy Family History Father Cancer Heart disease Diabetes Mother Stroke Hypertension Grandmother (Maternal) Coronary heart disease Stroke Family/Other Multiple sclerosis Brother Coronary heart disease Grandfather (Maternal) Heart disease Grandfather (Paternal) Diabetes Aunt Muscular dystrophy Other Gallbladder disease Kidney stones Social History Smoking Status: Never smoker Second Hand Exposure: No; Hx Alcohol Use: No Hx Substance Use: No Preferred Language: Kiswahili Communication Ability: Effective [employer] 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 and A total of 10 systems reviewed and were otherwise negative Physical Exam Vital Signs Vital Signs - 24 hr 05/08/20 11:08 05/08/20 11:28 05/08/20 11:30 Temperature 36.7 C Temperature Source Oral Pulse Rate 76 75 75 Pulse Rate from SpO2 Sensor 75 75 Respiratory Rate 20 18 Respiratory Effort / Characteristics Non-Labored Spontaneous Respiratory Depth Normal Respiratory Pattern Blood Pressure 132/72 Blood Pressure Mean 92 Blood Pressure Position Sitting Pulse Oximetry 90 97 99 Oxygen Delivery Method Nasal Cannula Nasal Cannula Nasal Cannula Oxygen Flow Rate 3 3 3 Sepsis Recent Fever Within 48 Hours No Sepsis New/Unexplained Change in Mental Status N/A Sepsis Action Taken by Nursing No Action Required 05/08/20 11:40 05/08/20 11:47 05/08/20 11:50 Temperature Temperature Source Pulse Rate 75 75 Pulse Rate from SpO2 Sensor 75 75 Respiratory Rate 36 H Respiratory Effort / Characteristics Respiratory Depth Respiratory Pattern Blood Pressure Blood Pressure Mean Blood Pressure Position Pulse Oximetry 97 97 Oxygen Delivery Method Nasal Cannula Room Air Nasal Cannula Oxygen Flow Rate 3 3 3 Sepsis Recent Fever Within 48 Hours Sepsis New/Unexplained Change in Mental Status Sepsis Action Taken by Nursing 05/08/20 11:55 05/08/20 12:00 05/08/20 12:10 Temperature Temperature Source Pulse Rate 77 75 78 Pulse Rate from SpO2 Sensor 76 75 74 Respiratory Rate 15 23 23 Respiratory Effort / Characteristics Respiratory Depth Respiratory Pattern Blood Pressure 135/78 145/87 H Blood Pressure Mean 89 109 Blood Pressure Position Pulse Oximetry 94 100 100 Oxygen Delivery Method Nasal Cannula Nasal Cannula Nasal Cannula Oxygen Flow Rate 3 3 3 Sepsis Recent Fever Within 48 Hours Sepsis New/Unexplained Change in Mental Status Sepsis Action Taken by Nursing 05/08/20 12:11 05/08/20 12:20 05/08/20 12:30 Temperature Temperature Source Pulse Rate 74 75 Pulse Rate from SpO2 Sensor 77 75 Respiratory Rate 23 23 Respiratory Effort / Characteristics Non-Labored Respiratory Depth Normal Respiratory Pattern Regular Blood Pressure 151/76 H Blood Pressure Mean 95 Blood Pressure Position Pulse Oximetry 98 97 Oxygen Delivery Method Nasal Cannula Nasal Cannula Oxygen Flow Rate 3 3 Sepsis Recent Fever Within 48 Hours Sepsis New/Unexplained Change in Mental Status Sepsis Action Taken by Nursing 05/08/20 12:40 05/08/20 12:50 05/08/20 13:00 Temperature Temperature Source Pulse Rate 74 74 74 Pulse Rate from SpO2 Sensor 74 74 74 Respiratory Rate 18 6 L Respiratory Effort / Characteristics Respiratory Depth Respiratory Pattern Blood Pressure 152/79 H Blood Pressure Mean 108 Blood Pressure Position Pulse Oximetry 99 97 99 Oxygen Delivery Method Nasal Cannula Nasal Cannula Nasal Cannula Oxygen Flow Rate 3 3 3 Sepsis Recent Fever Within 48 Hours Sepsis New/Unexplained Change in Mental Status Sepsis Action Taken by Nursing 05/08/20 13:10 05/08/20 13:20 05/08/20 13:30 Temperature Temperature Source Pulse Rate 74 75 71 Pulse Rate from SpO2 Sensor 74 75 72 Respiratory Rate 21 19 19 Respiratory Effort / Characteristics Respiratory Depth Respiratory Pattern Blood Pressure 141/76 H Blood Pressure Mean 90 Blood Pressure Position Pulse Oximetry 98 98 97 Oxygen Delivery Method Nasal Cannula Nasal Cannula Nasal Cannula Oxygen Flow Rate 3 3 3 Sepsis Recent Fever Within 48 Hours Sepsis New/Unexplained Change in Mental Status Sepsis Action Taken by Nursing Constitutional: Vital signs reviewed. Eyes: Pupils are equal round reactive to light. Conjunctiva are noninjected. ENT: Pharynx is clear without erythema or exudate. Mucous membranes are moist. Neck supple without meningeal signs. Respiratory: Bibasilar rales. No wheezing. Breath sounds are equal bilaterally. Cardiovascular: Regular rate and rhythm. No rubs or gallops. GI: Soft, nondistended and nontender. Bowel sounds are present. Musculoskeletal: Mild bilateral lower extremity edema. No lower extremity tenderness. Integumentary: No cyanosis. or jaundice. Neurological: The patient is awake and alert. No focal deficits. Psychiatric: Normal affect. Not anxious appearing. Course Administered Medications Discontinued Medications Furosemide (Furosemide 40 Mg/4 Ml Vial) 40 mg IV NOW STA Stop: 05/08/20 11:33 Last Admin: 05/08/20 12:02 Dose: 40 mg Documented by: [id number] Medical Decision Making Differential Diagnosis Hypoxia, CHF exacerbation, COPD exacerbation, pneumonia, bradycardia Medical Records Attestation: I reviewed the patient's medical records. The patient was admitted in December of this year for respiratory failure. She had elevated troponins which were thought to be related to her CKD. Home Medications Current Medication List: was personally reviewed by me Laboratory Data Attestation: I reviewed the patient's lab results. Result diagrams: 05/08/20 11:42 05/08/20 11:42 Lab Results 05/08/20 05/08/20 05/08/20 Range/Units 11:42 11:42 11:42 WBC 5.60 (4.8-10.8) K/uL RBC 3.91 L (4.2-5.4) M/uL Hgb 11.6 L (12.0-16.0) g/dL Hct 38.7 (37-47) % MCV 99.0 (80-100) fL MCH 29.7 (25-34) pg MCHC 30.0 L (32-36) g/dL RDW Std Deviation 64.7 H (36.4-46.3) fL RDW Coeff of Nhi 18.1 H (11.5-14.5) % Plt Count 106 L (130-400) K/uL MPV 11.9 H (7.4-10.4) fL Immature Gran % (Auto) 0.9 % Neut % (Auto) 76.9 % Lymph % (Auto) 9.8 % [place] % (Auto) 9.3 % Eos % (Auto) 2.7 % Baso % (Auto) 0.4 % Neut # (Auto) 4.31 (1.4-6.5) K/uL Lymph # (Auto) 0.55 L (1.2-3.4) K/uL [place] # (Auto) 0.52 (0.11-0.59) K/uL Eos # (Auto) 0.15 (0-0.5) K/uL Baso # (Auto) 0.02 (0-0.2) K/uL Immature Gran # (Auto) 0.05 H (0.00-0.02) K/uL PT 11.3 (9.0-12.0) Seconds INR 1.1 (0.9-1.1) APTT 31.3 H (21.0-31.0) Seconds PTT Ratio 1.1 Sodium 144 (136-145) mmol/L Potassium 4.3 (3.5-5.1) mmol/L Chloride 103 (98-107) mmol/L Carbon Dioxide 37 H (21-32) mmol/L Anion Gap 4.0 (3-11) BUN 56 H (7-18) mg/dl Creatinine 1.99 H (0.6-1.2) mg/dl Est Cr Clr Drug Dosing Not Reportable Est GFR ( Amer) 27.0 Est GFR (Non-Af Amer) 23.3 BUN/Creatinine Ratio 28.1 H (10-20) Glucose 185 H (70-99) mg/dl Calcium 8.7 (8.5-10.1) mg/dl Magnesium 2.2 (1.8-2.4) mg/dl Total Bilirubin 0.5 (0.2-1) mg/dl AST 35 (15-37) U/L ALT 39 (12-78) U/L Alkaline Phosphatase 76 (45-117) U/L Troponin I 0.102 H* (0-0.045) ng/ml NT-Pro-B Natriuret Pep 8092 H (0-1800) pg/ml Total Protein 6.2 L (6.4-8.2) gm/dl Albumin 3.0 L (3.4-5.0) gm/dl Globulin 3.2 (2.5-4.0) gm/dl Albumin/Globulin Ratio 0.9 (0.9-2) Imaging Data Radiologist's Impression: XR chest 1V portable HISTORY: 80 years-old Female Dyspnea acute shortness of breath COMPARISON: Chest radiograph 03/10/2020 TECHNIQUE: Portable AP view of the chest FINDINGS: Cardiac silhouette is moderately enlarged. Left subclavian [id number] catheter. Right subclavian dual lead pacer. Calcified plaque of the thoracic arch. Surgical suture material is again noted projecting over the left upper lung. Pulmonary vascular congestion. No pneumothorax, large pleural effusion or airspace consolidation typical for pneumonia. Degenerative changes of the shoulders and spine. Probable loose bodies of the left axillary recess and right subscapularis recess. IMPRESSION: Cardiomegaly with pulmonary vascular congestion. ACT 112: Negative or not required by law. The above report was generated using voice recognition software. It may contain grammatical, syntax or spelling errors. Electronically signed by: Dipak Tapia M.D. 05/08/2020 11:55 AM Dictated: 05/08/201152 Transcribed: 05/08/201152 ECG Data Attestation: I personally reviewed and interpreted this ECG as follows: Indication: + SOB/dyspnea Rate (beats per minute): 82 Rhythm: + other (Paced rhythm) ECG Findings: + Q waves and + Other (No acute ischemic changes or concordant ST elevations); no PVCs MDM Narrative I did evaluate the patient as noted above. The patient was sent over by her doctor's office for hypoxemia while ambulating and on oxygen. She does complain of increased shortness of breath starting today. She has had a 6 pound weight gain over the past week and has rales on examination of her lungs. IV access was established. I did place an order for continuous cardiac monitoring. The monitor showed normal sinus rhythm at a rate of 70. She was placed on 3 L supplemental oxygen. I did order and personally review the patient's 12-lead EKG as described above. She has no evidence of acute ischemic changes. She does have a paced rhythm. I did order and personally reviewed the images of the patient's chest x-ray as described above. She has evidence of CHF. I did treat her with Lasix IV. I did order and review the patient's blood work as noted in the electronic medical record. CBC shows mild anemia and thrombocytopenia. Electrolytes are unremarkable. Creatinine is elevated at baseline. Troponin is 0.1. I did discuss the test results with the patient. She is feeling better at this time. She has no chest discomfort. She did have elevated troponins on her previous visit which were thought to be related to her CKD rather than ischemic heart disease. She will be hospitalized for further care and evaluation. I did discuss case with hospitalist and case management manager. Impression & Plan Hypoxia, Thrombocytopenia, Anemia, Acute exacerbation of congestive heart failure, Chronic kidney disease Discharge Plan Visit Data Chief Complaint: Shortness of Breath/Dyspnea Stated Complaint: PULSE RATE 44, DIZZY SENT BY ED Provider: Zachery Choi Discharge Problem: Hypoxia, Thrombocytopenia, Anemia, Acute exacerbation of congestive heart failure, Chronic kidney disease Patient Disposition: Being Evaluated by Hospitalist Discharge Instructions Interventions: ED Discharge Assessment Last Done: 05/08/20 15:23
[2020-05-08 11:52] LABS: Basophils # (auto) 0.02 K/uL (0-0.2); Basophils % (auto) 0.4 %; Eosinophils # (auto) 0.15 K/uL (0-0.5); Eosinophils % (auto) 2.7 %; Hematocrit (blood only) 38.7 % (37-47); Hemoglobin 11.6 g/dL (12.0-16.0); Immature Granulocytes # (auto) 0.05 K/uL (0.00-0.02); Immature Granulocytes % (auto) 0.9 %; Lymphocytes # (auto) 0.55 K/uL (1.2-3.4); Lymphocytes % (auto) 9.8 %; Mean Corpuscular Hemoglobin 29.7 pg (25-34); Mean Platelet Volume 11.9 fL (7.4-10.4); Monocytes # (auto) 0.52 K/uL (0.11-0.59); Monocytes % (auto) 9.3 %; Neutrophils # (auto) 4.31 K/uL (1.4-6.5); Neutrophils % (auto) 76.9 %; Platelet Count 106 K/uL (130-400); RDW Coefficient of Variation 18.1 % (11.5-14.5); RDW Standard Deviation 64.7 fL (36.4-46.3); Red Blood Count 3.91 M/uL (4.2-5.4)
--- NOTE | 2020-05-08 11:56 | XRay Report ---
XR chest 1V portable HISTORY: 80 years-old Female Dyspnea acute shortness of breath COMPARISON: Chest radiograph 03/10/2020 TECHNIQUE: Portable AP view of the chest FINDINGS: Cardiac silhouette is moderately enlarged. Left subclavian [id number] catheter. Right subclavian d ual lead pacer. Calcified plaque of the thoracic arch. Surgical suture material is again noted projec ting over the left upper lung. Pulmonary vascular congestion. No pneumothorax, large pleural effusion or airspace consolidation typical for pneumonia. Degenerative changes of the shoulders and spine. Pr obable loose bodies of the left axillary recess and right subscapularis recess. IMPRESSION: Cardiomegaly with pulmonary vascular congestion. ACT 112: Negative or not required by law. The above report was generated using voice recognition software. It may contain grammatical, syntax o r spelling errors. Electronically signed by: Dipak Tapia M.D. 05/08/2020 11:55 AM
[2020-05-08 12:03] LABS: INR 1.1 (0.9-1.1); Partial Thromboplastin Ratio 1.1; Partial Thromboplastin Time 31.3 Seconds (21.0-31.0); Prothrombin Time 11.3 Seconds (9.0-12.0)
[2020-05-08 12:15] LABS: Alanine Aminotransferase 39 U/L (12-78); Aspartate Aminotransferase 35 U/L (15-37); BUN Creatinine Ratio 28.1 (10-20); Blood Urea Nitrogen 56 mg/dl (7-18); Calcium 8.7 mg/dl (8.5-10.1); Carbon Dioxide 37 mmol/L (21-32); Chloride 103 mmol/L (98-107); Est GFR (Non-African American) 23.3; Glucose 185 mg/dl (70-99); Magnesium 2.2 mg/dl (1.8-2.4); Potassium 4.3 mmol/L (3.5-5.1); Sodium 144 mmol/L (136-145)
[2020-05-08 12:22] LABS: Albumin Globulin Ratio 0.9 (0.9-2); Alkaline Phosphatase 76 U/L (45-117); Bilirubin,Total 0.5 mg/dl (0.2-1); Globulin 3.2 gm/dl (2.5-4.0); NT Pro B Type Natriuretic Pept 8092 pg/ml (0-1800); Total Protein 6.2 gm/dl (6.4-8.2); Troponin I 0.102 ng/ml (0-0.045)
--- NOTE | 2020-05-08 13:25 | History & Physical Report ---
Date of Service May 08, 2020 Assessment & Plan (1) Diarrhea: Ongoing for the last week. Monitor BMs here. CT abdomen/pelvis without IV contrast (2) Suprapubic pain: Lower abdominal pain on exam. No previously mentioned on prior exams however unclear how acute this is per patient. CT abdomen/pelvis without IV contrast to further assess with flank pain UA pending (3) Right flank pain: Notably had a CT in January from her PCP which mentions symptoms of flank pain and hematuria. Unclear if this was the same side but the patient does report she has had pain in this area in the past. Work-up as above (4) Dizziness: Patient describes vertigo, disequilibrium and presyncope. No episodes of syncope. Progressively worse over the last 2 weeks but possibly going on for longer than a year. Orthostatics every shift Given her significant hypoxia on exertion I suspect she has presyncope related to this. Hopefully will improve with diuretics. (5) Dysphagia: Progressively worsening dysphagia over the last year. Associated weight loss. Prior history of esophageal stenosis. Soft easy to chew diet here to see how she tolerates food and taking her medication. Consult GI (6) Acute on chronic diastolic heart failure: ?Secondary to no absorbing p.o. Lasix due to dysphagia or above Lasix IV 40 mg twice daily Heart healthy, low-sodium diet, fluid restrict 1500 mL (7) Chronic respiratory failure with hypoxia: (8) Elevated troponin: No acute chest pain or shortness of breath to suggest ACS. We will repeat with a.m. labs to ensure no rising. Appears to be similar to prior hospitalizations due to demand ischemia. (9) Coronary artery disease: Continue clopidogrel, metoprolol, no KAMRAN/ARB due to CKD stage IV, intolerant to statins. S/p remote multivessel stenting and RCA AWILDA x2 (06/2018) (10) Paroxysmal A-fib: Currently has P waves on EKG. Multiple paroxysmal episodes on recent pacemaker check. Continue apixaban 5 mg p.o. twice daily for anticoagulation Continue rate control with metoprolol tartrate 50 mg p.o. every morning, 25 mg every afternoon (11) HTN (hypertension): Continue metoprolol at current dose. (12) Chronic kidney disease, stage 4 (severe): At baseline. Monitor BMP daily with increased dose of Lasix. (13) Diabetes: HbA1c 7.3. We will repeat with a.m. labs. Hold her home insulin regimen at the current time (total daily dose 109 units) Due to her dysphagia she is likely eating less and her carbohydrate intake would likely be less in hospital there for decrease total dose: Lantus 20 units twice daily, NovoLog sliding scale aim 110-140, correction 10, carb ratio 4 (14) Peripheral neuropathy: Suspect secondary to diabetes. Continue Lyrica 200 mg p.o. twice daily (15) Sleep apnea: Patient on BiPAP at home. May use her own here. (16) Hypothyroidism: TSH WNL. Continue levothyroxine 25 mcg p.o. daily. (17) Gout: Recently diagnosed chronic gout earlier this year. Continue allopurinol 100 mg p.o. every morning, prednisone 5 mg p.o. daily. No current exacerbation. (18) DVT prophylaxis: Continue her usual apixaban 5 mg p.o. twice daily Admission and Anticipated Discharge Date Admission Date: 05/08/2020 History of Present Illness Chief Complaint: Shortness of breath, hypoxia Primary Care Provider: DO Maureen Lambert Xiao is a 80-year-old female who presents to the ER on advice from her PCP office due to shortness of breath with acute on chronic hypoxia. The patient has multiple other complaints and initially is more concerned about her dysphagia which has been getting progressively worse over the last 2 weeks to the point where she is now having difficulty swallowing pills and having associated weight loss. In addition she has been having diarrhea for the last week with associated nausea. For the last 2 weeks she is also been complaining of increased dizziness but is unable to distinguish between disequilibrium, vertigo, presyncope and tells me she has all three. Regards to her shortness of breath, she denies any recent weight gain or increased leg swelling. Shortness of breath is only present on exertion. reports this has been getting progressively worse over the last 2 weeks to 1 year to the point she is now significantly short of breath and dizzy after walking just 10 feet. No episodes of syncope. She has multiple other complaints (see below for review of systems), unclear on timeline of most of these. On review of previous notes the majority of these appear to be chronic other than right flank pain, lower abdominal pain, dysuria. He was hospitalized in December due to multiple joint aches and diagnosed with gout. She was started on prednisone and subsequently allopurinol for uric acid reduction. She reports vast improvement in her joint pain since this was initiated. In the ER chest x-ray concerning for pulmonary edema very similar to previous. BNP/troponin elevated in context of worsening shortness of breath patient was suspected to have congestive heart failure and was referred to medicine for admission. Allergies Allergy/AdvReac Type Severity Reaction Status Date / Time eptifibatide Allergy Severe ANAPHYLAXIS Verified 05/08/20 12:43 hornet venom Allergy Severe WASP VENOM Verified 05/08/20 12:43 PROTEIN-ANAPHYLAXIS levofloxacin [From Levaquin] Allergy Severe Hives Verified 05/08/20 12:43 atorvastatin Allergy Unknown MUSCLE PAIN Verified 05/08/20 12:43 ezetimibe Allergy Unknown MUSCLE PAIN Verified 05/08/20 12:43 simvastatin Allergy Unknown MUSCLE PAIN Verified 05/08/20 12:43 amlodipine AdvReac Severe Nausea Verified 05/08/20 12:43 azithromycin AdvReac Intermediate Palpitation Verified 05/08/20 12:43 s warfarin AdvReac Intermediate EXTREME Verified 05/08/20 12:43 BLEEDING TIMES codeine AdvReac Mild VOMITING Verified 05/08/20 12:43 gemfibrozil AdvReac Mild NAUSEA Verified 05/08/20 12:43 meperidine AdvReac Mild VOMITING Verified 05/08/20 12:43 ondansetron AdvReac Mild vomiting Verified 05/08/20 12:43 ranitidine [From Zantac] AdvReac Mild dyspepsia Verified 05/08/20 12:43 cortisone AdvReac Unknown INCREASES Verified 05/08/20 12:43 SUGAR AND VOMITING? hydralazine AdvReac Unknown VOMITING Verified 05/08/20 12:43 ibuprofen AdvReac Unknown VOMITING Verified 05/08/20 12:43 AND DIARRHEA iodine AdvReac Unknown SHELLFISH Verified 05/08/20 12:43 - VOMITING shellfish derived AdvReac Unknown VOMITING Verified 05/08/20 12:43 Sulfa (Sulfonamide AdvReac Unknown VOMITING Verified 05/08/20 12:43 Antibiotics) Home Medications Home Medications Medication Instructions Recorded Confirmed Type ascorbic acid (vitamin C) [Vitamin 1,000 mg PO QAM 06/20/18 05/08/20 History C] ergocalciferol (vitamin D2) 50,000 unit PO WK 06/20/18 05/08/20 History [Vitamin D2] multivitamin 1 tab PO QAM 06/20/18 05/08/20 History nitroglycerin 0.4 mg sublingual 0.4 mg SL Q5M PRN #25 tab 02/26/19 05/08/20 History tablet insulin lispro [Humalog KwikPen 11 unit SUBCUT QDB 04/22/19 05/08/20 History Insulin] insulin lispro [Humalog KwikPen 18 unit SUBCUT QDL 04/22/19 05/08/20 History Insulin] insulin lispro [Humalog KwikPen 20 unit SUBCUT QDD 04/22/19 05/08/20 History Insulin] levothyroxine [Synthroid] 25 mcg PO QAM 06/04/19 05/08/20 History buspirone 10 mg PO BID 07/12/19 05/08/20 History ipratropium-albuterol 3 ml NEB QIDR PRN #90 ml 07/17/19 05/08/20 Rx Oxygen Home #1 ea 09/19/19 04/14/20 Rx sennosides [Senokot] 17.2 mg PO QAM #60 tab 09/19/19 05/08/20 Rx sodium chloride [Saline Nasal Mist] 2 sprays INTNAS QID PRN #45 ml 09/19/19 05/08/20 Rx Basaglar KwikPen U-100 Insulin 30 units SUBCUT BID 12/25/19 05/08/20 History furosemide 40 mg tablet 40 mg PO QAM tab 01/14/20 05/08/20 History metoprolol tartrate 50 mg tablet 25 - 50 mg PO AMPM tab 01/14/20 05/08/20 His tory acetaminophen [Tylenol Extra 500 mg PO Q6H PRN 02/06/20 05/08/20 History Strength] pregabalin [Lyrica] 200 mg PO BID 02/06/20 05/08/20 History allopurinol 100 mg tablet 100 mg PO QAM 04/09/20 05/08/20 History apixaban 5 mg tablet 5 mg PO BID #60 tab 04/09/20 05/08/20 Rx prednisone 5 mg tablet 5 mg PO QAM 04/09/20 05/08/20 History clopidogrel [Plavix] 75 mg PO QAM 05/08/20 05/08/20 History famotidine 20 mg PO BID 05/08/20 05/08/20 History Past Med/Surg History Medical History Angina pectoris Chronic kidney disease, stage 4 (severe) CKD (chronic kidney disease) stage 3, GFR 30-59 ml/min COPD with acute exacerbation Diabetes Diabetic foot ulcer associated with type 2 diabetes mellitus Diastolic CHF 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) Dyslipidemia HTN (hypertension) Hypertrophic cardiomyopathy apical variant Hypothyroidism Knee arthropathy Lung cancer Myocardial infarction X4 Peripheral neuropathy Proteinuria Subdural hematoma Thrombocytopenia chronic; baseline platelets low 100's Vitamin D deficiency Surgical History History of cardioversion MULTIPLE History of cataract surgery History of lung surgery PARTIAL LEFT LOBECTOMY (2013) Hx of brain surgery 2017 S/P FALL/INJURY; SUBSEQUENT BLOOD CLOT EVACUATION Knee joint replacement status S/P cardiac catheterization 7 TOTAL; CARDIAC STENTS X6 S/P hysterectomy S/P tonsillectomy Family History Father Cancer Heart disease Diabetes Mother Stroke Hypertension Grandmother (Maternal) Coronary heart disease Stroke Family/Other Multiple sclerosis Brother Coronary heart disease Grandfather (Maternal) Heart disease Grandfather (Paternal) Diabetes Aunt Muscular dystrophy Other Gallbladder disease Kidney stones Social History Smoking Status: Never smoker Second Hand Exposure: No; Hx Alcohol Use: No Hx Substance Use: No Preferred Language: [place]ian Communication Ability: Effective 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 Teacher Required: No Beliefs That Will Affect Care: None marital status: Current Living Situation: Spouse Current Living Situation Comment: lives in [place] 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: 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 Feels Safe at Home: Yes Assistive Devices: Oxygen - Continuous Review of Systems Review of Systems: All systems reviewed & are unremarkable except as noted in HPI & below Constitutional: + fatigue and + weight loss; no fever and no chills Eyes: + problem reported (Progressively worse poor vision ?due to glaucoma) Ear, Nose, Mouth, Throat: + ear pain (Right) and + nasal congestion Respiratory: + cough and + dyspnea on exertion; no chest congestion Cardiovascular: + dyspnea on exertion and + lightheadedness Gastrointestinal: + abdominal pain, + heartburn, + dysphagia and + diarrhea/loose stools; no blood in stools and no melena Genitourinary: + dysuria Integumentary: no rash Neurologic: + gait abnormality, + unsteadiness, + generalized weakness, + numbness, + lack of coordination, + dizziness and + headache(s) Psychiatric: + irritability Endocrine: + fatigue and + polyuria Allergy / Immunological: + seasonal rhinorrhea (related to rag weed) Physical Exam Constitutional: well developed and + obese; + not well nourished, no acute distress and no altered mental status Eyes: + anicteric sclerae; normal pupil size ENMT: external ear and nose normal, oropharynx normal Ears: + unable to visualize TM (right); no TM abnormality (left) Neck: normal visual inspection and trachea midline Respiratory: normal respiratory effort and able to speak in complete sentences; no respiratory distress, no labored breathing, no retractions, does not use accessory muscles and no cough Auscultation: + crackles (Bibasal equal to mid zone of back); no diminished lung sounds, no rales, no rhonchi and no wheezes Cardiovascular: Rate/Rhythm: regular rate and regular rhythm Heart Sounds: no murmur Vessels: no JVD (Difficult to assess due to neck size) Extremities: normal capillary refill and + pedal edema (2+ equal b/l to knees); no calf tenderness Gastrointestinal (Abdomen): Inspection/Auscultation: + abdomen distended (Patient reports at baseline) and + hyperactive bowel sounds Percussion/Palpation: + abdomen tender (lower abdomen) and abdomen soft; no guarding and abdomen not rigid Musculoskeletal: no cyanosis or clubbing, extremities motor strength 5/5 Skin: no rashes, warm and dry Neurologic: moves all extremities and awake; no focal motor deficits and not confused Motor/Sensory: no tremor Cranial Nerves: normal facial strength Psychiatric: A+Ox3, euthymic affect Genitourinary: + CVA tenderness (right sided) Lymphatic: no cervical or axillary lymphadenopathy Results & Data Results & Data ([facility]) Vital Signs (Past 12 Hours) Vital Signs Temp Pulse Resp BP Pulse Ox 05/08/20 12:50 74 97 05/08/20 12:40 74 18 99 05/08/20 12:30 75 23 151/76 H 97 05/08/20 12:20 74 23 98 05/08/20 12:10 78 23 100 05/08/20 12:00 75 23 145/87 H 100 05/08/20 11:55 77 15 135/78 94 05/08/20 11:50 75 97 05/08/20 11:40 75 36 H 97 05/08/20 11:30 75 99 05/08/20 11:28 75 18 97 05/08/20 11:08 36.7 C 76 20 132/72 90 Diagnostic Findings XR chest 1V portable IMPRESSION: Cardiomegaly with pulmonary vascular congestion. ECG Indication: SOB/dyspnea Rate (beats per minute): 82 Findings: + paced rhythm (Atrial sensed ventricular paced) Comparison ECG Date: from (February 06, 2020) Change: no significant change Code Status & VTE Plan Code Status DNR/DNI VTE Prophylaxis Plan VTE Prophylaxis will be ordered: Yes PG Care Time/CCT Total # of Minutes Spent Total Time Spent with Patient: Total time spent is greater than 50% in coordination of care (as documented) at patient's floor/unit and/or counseling patient: Coding Level of Care Code 84879 Initial Inpt Care Lvl 3 Diagnoses Diarrhea R19.7 Suprapubic pain R10.2 Right flank pain R10.9 Dizziness R42 Dysphagia R13.10 Acute on chronic diastolic heart failure I50.33 Chronic respiratory failure with hypoxia J96.11 Elevated troponin R79.89 Coronary artery disease I25.10 Coronary Disease-Associated Artery/Lesion type: crow artery [place] vs. 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 Diabetes mellitus complication status: without complication Peripheral neuropathy G62.9 Sleep apnea G47.33 Sleep apnea type: obstructive Hypothyroidism E03.9 Hypothyroidism type: unspecified Gout [id number] Gout site: multiple sites Gout etiology: due to renal impairment Chronicity: chronic Presence of tophus: with tophus DVT prophylaxis Z29.9 (1) Gout Gout site: multiple sites Gout etiology: due to renal impairment Chronicity: chronic Presence of tophus: with tophus Qualified Code(s): M1A.39X1 - Chronic gout due to renal impairment, multiple sites, with tophus (tophi) (2) Hypothyroidism Hypothyroidism type: unspecified Qualified Code(s): E03.9 - Hypothyroidism, unspecified (3) HTN (hypertension) Hypertension type: essential hypertension Qualified Code(s): I10 - Essential (primary) hypertension (4) Diabetes Diabetes mellitus type: type 2 Diabetes mellitus fdc insulin use: with truck 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 transplanted heart: crow heart Associated angina: without angina Qualified Code(s): I25.10 - Atherosclerotic heart disease of crow coronary artery without angina pectoris (6) Sleep apnea Sleep apnea type: obstructive Qualified Code(s): G47.33 - Obstructive sleep apnea (adult) (pediatric)
--- NOTE | 2020-05-08 16:17 | CT Scan Report ---
ABDOMEN AND PELVIS CT WITHOUT CONTRAST CT DOSE: 1118.24 mGy.cm HISTORY: Acute left lower quadrant abdominal pain with diarrhea lower abdominal and right flank pain , diarrhea TECHNIQUE: Multiaxial CT images of the abdomen and pelvis were performed without contrast. A dose lo wering technique was utilized adhering to the principles of ALARA. COMPARISON STUDY: CT abdomen pelvis 02/22/2020 FINDINGS: Cardiomegaly. Partially imaged pacer leads. Extensive coronary artery calcifications. Trace left pleural effusion. Subsegmental bibasilar densities suggest atelectasis/scarring. No pneumatosis or pneumoperitoneum. Limited evaluation of the solid abdominal organs without the use of IV contrast . Calcification of the posterior spleen. There are a few indeterminate hypodense splenic lesions iveth uring up to 1.2 cm which are unchanged. Pancreas and adrenal glands are unremarkable. Mildly contract ed gallbladder. Unenhanced liver is unremarkable. Unchanged bilateral perinephric stranding. Mild cortical thinning of the right kidney. Unchanged at l east moderate left renal atrophy. 1.2 cm cyst of the superior pole left kidney. Proteinaceous or hemo rrhagic 5 mm cyst of the inferior pole. Bilateral renal calcifications are likely vascular. Nonobstru cting calculi on the left be difficult to exclude. No ureteral calculi or obstructive uropathy. Mild urinary bladder distention. Hysterectomy. No adnexal mass lesions. Extensive calcified plaque the abd ominal aorta with possible remote calcified dissection flap. No adenopathy. No bowel obstruction or b owel wall thickening. Colonic diverticulosis. Surgically absent appendix. 1.9 cm partially calcified mixed attenuating structure is noted involving the lower abdominal mesentery with areas of fat attenu ation, unchanged from comparison. Degenerative changes of the spine, pelvis and hips. IMPRESSION: 1. No bowel obstruction or bowel wall thickening. 2. Colonic diverticulosis without acute diverticulitis. 3. Unchanged left renal atrophy with bilateral renal calcifications, likely vascular. No ureteral maryuri culi or obstructive uropathy. 4. Cardiomegaly. 5. Trace left pleural effusion. 6. Additional findings as above. ACT 112: Negative or not required by law. The above report was generated using voice recognition software. It may contain grammatical, syntax o r spelling errors. Electronically signed by: Dipak Tapia M.D. 05/08/2020 4:16 PM
[2020-05-08] MEDS ORDERED: POLYETHYLENE (MIRALAX) 17 GM PACK PO PRN (16:22)
[2020-05-08] MEDS ORDERED: ONDANSETRON INJ 2 MG/ML 2 ML VIAL IV PRN (16:22)
[2020-05-08] MEDS ORDERED: SODIUM CHLORIDE 0.65% NA SOLN 45 ML (OCEAN) NAE PRN (16:22)
[2020-05-08] MEDS ORDERED: GLUCOSE 10 TABS/TUBE PO PRN (16:22)
[2020-05-08] MEDS ORDERED: GLUCAGON FOR INJ 1 MG VIAL SQ PRN (16:22)
[2020-05-08] MEDS ORDERED: ACETAMINOPHEN 325 MG TAB PO PRN (16:22)
[2020-05-08] MEDS ORDERED: DEXTROSE 50% 50 ML SYRINGE IV PRN (16:22)
[2020-05-08] MEDS ORDERED: NITROGLYCERIN SL 0.4 MG/TAB TAB SL PRN (16:22)
[2020-05-08] MEDS ORDERED: CARBOHYDRATES FOR HYPOGLYCEMIA PO PRN (16:22)
[2020-05-08] MEDS ORDERED: ACETAMINOPHEN 500 MG TAB PO PRN (16:22)
[2020-05-08] MEDS ORDERED: GLUCOSE 40% GEL 15 GM TUBE PO PRN (16:22)
[2020-05-08] MEDS ORDERED: FUROSEMIDE 40 MG/4 ML VIAL IV SCH (17:00)
[2020-05-08] MEDS: INSULIN ASPART 100 UNITS/ML 3 ML PEN SC SCH ×2 (17:23→21:16)
[2020-05-08] MEDS: FUROSEMIDE 40 MG in SYRINGE 0 ML IV SCH (17:23)
[2020-05-08] MEDS: FEXOFENADINE HCL 180 MG TAB PO SCH (17:24)
[2020-05-08 20:08] LABS: Appearance Urine Clear (Clear); Bacteria Urine Automated Negative (Negative); Bilirubin Urine Negative (Negative); Blood Urine Negative (Negative); Color Urine Yellow; Glucose Urine UA Negative (Negative); Ketones Urine Negative (Negative); Leukocyte Esterase Urine Trace (Negative); Nitrite Urine Negative (Negative); Protein Urine Negative (Negative); RBC Urine Automated 0-4 /hpf (0-4); Specific Gravity Urine 1.011 (1.000-1.030); Urobilinogen Urine Negative (Negative); pH Urine 5.5 (4.5-7.5)
[2020-05-08] MEDS: PREGABALIN 100 MG CAP PO SCH (21:13)
[2020-05-08] MEDS: busPIRone 5 MG TAB PO SCH (21:16)
[2020-05-08] MEDS: FAMOTIDINE 20 MG TAB PO SCH (21:16)
[2020-05-08] MEDS: APIXABAN 5 MG TABLET PO SCH (21:16)
[2020-05-08] MEDS: METOPROLOL TARTRATE 50 MG TAB PO SCH (21:16)
[2020-05-08] MEDS: INSULIN GLARGINE SOLOSTAR 100 UNITS/ML 3 ML PEN SC SCH (21:16)
[2020-05-09] MEDS: LEVOTHYROXINE SODIUM 25 MCG TABLET PO SCH (04:54)
[2020-05-09] MEDS: HEPARIN 100 UNIT/ML 5ML FLUSH FLUSH PRN ×2 (05:46→17:41)
--- NOTE | 2020-05-09 05:54 | Electrocardiogram Report ---
Test Reason : Blood Pressure : / mmHG Vent. Rate : 082 BPM Atrial Rate : 082 BPM P-R Int : 204 ms QRS Dur : 168 ms QT Int : 448 ms P-R-T Axes : 093 -77 110 degrees QTc Int : 523 ms Poor data quality, interpretation may be adversely affected Atrial-sensed ventricular-paced rhythm Abnormal ECG When compared with ECG of 06-FEB-2020 19:16, Vent. rate has increased BY 8 BPM Confirmed by Balbir Ibanez ([id number]) on 05/09/2020 5:54:16 AM Referred By: Confirmed By:Balbir Ibanez
[2020-05-09 06:20] LABS: Estimated Average Glucose 203 mg/dl; Hemoglobin A1C 8.7 % (4.5-5.6)
[2020-05-09 06:38] LABS: Hematocrit (blood only) 39.2 % (37-47); Hemoglobin 11.7 g/dL (12.0-16.0); Mean Corpuscular Hgb Conc 29.8 g/dL (32-36); Mean Corpuscular Volume 100.5 fL (80-100); Mean Platelet Volume 12.7 fL (7.4-10.4); Platelet Count 115 K/uL (130-400); Platelet Estimate Decreased (Normal); White Blood Count 5.05 K/uL (4.8-10.8)
[2020-05-09 06:41] LABS: Calcium 8.5 mg/dl (8.5-10.1); Creatinine Clr Calc Pharmacy 21.9 ml/min; Est GFR (African American) 25.5; Potassium 4.4 mmol/L (3.5-5.1)
[2020-05-09] MEDS: FAMOTIDINE 20 MG TAB PO SCH ×2 (08:37→20:40)
[2020-05-09] MEDS: predniSONE 5 MG TAB PO SCH (08:37)
[2020-05-09] MEDS: allopurinoL 100 MG TAB PO SCH (08:37)
[2020-05-09] MEDS: ASCORBIC ACID 500 MG TAB PO SCH (08:37)
[2020-05-09] MEDS: busPIRone 5 MG TAB PO SCH ×2 (08:37→20:33)
[2020-05-09] MEDS: CLOPIDOGREL BISULFATE 75 MG TAB PO SCH (08:38)
[2020-05-09] MEDS: APIXABAN 5 MG TABLET PO SCH ×2 (08:38→20:34)
[2020-05-09] MEDS: FUROSEMIDE 40 MG in SYRINGE 0 ML IV SCH ×2 (08:39→17:38)
[2020-05-09] MEDS: SENNA 8.6 MG TAB PO SCH (08:39)
[2020-05-09] MEDS: MULTIVITAMIN TAB PO SCH (08:39)
[2020-05-09] MEDS: FEXOFENADINE HCL 180 MG TAB PO SCH (08:39)
[2020-05-09] MEDS: INSULIN ASPART 100 UNITS/ML 3 ML PEN SC SCH ×4 (08:42→20:39)
[2020-05-09] MEDS: INSULIN GLARGINE SOLOSTAR 100 UNITS/ML 3 ML PEN SC SCH ×2 (08:42→20:34)
--- NOTE | 2020-05-09 09:27 | Gastrointestinal Consultation ---
Date of Consultation May 09, 2020 Assessment & Plan (1) Dysphagia: (2) History of esophageal stricture: Dysphagia with history of esophageal stricture - Last EGD available for review 2016 required esophageal dilatation. Patient subjectively reports 6 month worsening of swallowing foods and pills. Denies coughing with or after swallowing. Just feels as though "things get stuck". Acutely admitted for CHF. Also ate breakfast this morning. Unable to perform an EGD today. Will obtain barium swallow to assess for stricture. Please refer to supervising physician addendum for further recommendations. History of Present Illness Attending Physician: Raymundo Lucio MD History of Present Illness The patient is a pleasant 80-year-old female with past medical history to include stage IV chronic kidney disease, COPD, 2 diabetes, diastolic CHF, diffuse large B-cell lymphoma (08/2012), dyslipidemia, hypertension, hypertrophic cardiomyopathy, hypothyroidism, history of myocardial infarction x4, peripheral neuropathy, proteinuria, subdural hematoma, chronic thrombocytopenia, vitamin D deficiency who presented to the emergency department 05/08/2020 with complaints of dizziness and shortness of breath. She was subsequently admitted due to CHF. GI consult was placed due to progressively worsening dysphasia over the last year with associated weight loss. Prior history noted of esophageal stenosis. The patient has been eating a soft easy to chew diet. Exam/interview today, the patient reports that she has had a progressive worsening of dysphasia and weight loss that is worsened over the last 6 months. She is unable to quantify the amount of weight loss. She reports that she has difficulty swallowing foods including hamburger and breads. She also states she has difficulty swallowing pills. She reports that she and her have arguments due to her inability to take her medications. She reports daily nausea. She states that she "just ignores it ". Vomiting. She reports some lower abdominal cramping that has been present for the last 6 months. She states that they feel like "period cramps". Denies melena or hematochezia. Reports history of non-Hodgkin's lymphoma sees Dr. Serrano in the cancer center. She reports last colonoscopy by Dr. Solis. She reports she has had previous EGD by Dr. Rothman. Is unsure if she has had previous swallowing study. Records are reviewed: 06/24/2010: Colonoscopy notes reviewed performed by Dr. Solis demonstrated transverse colon polyp, descending colon polyp, sigmoid colon polyp, diverticulosis 09/30/2015: EGD notes reviewed performed by Dr. Rothman due to complaints of dysphasia demonstrated regular Z line found at 40 cm from incisors; dilation performed with savory dilator with no resistance to 16 mm and 18 mm. Normal stomach. Normal examined duodenum. Allergies Allergy/AdvReac Type Severity Reaction Status Date / Time eptifibatide Allergy Severe ANAPHYLAXIS Verified 05/08/20 12:43 hornet venom Allergy Severe WASP VENOM Verified 05/08/20 12:43 PROTEIN-ANAPHYLAXIS levofloxacin [From Levaquin] Allergy Severe Hives Verified 05/08/20 12:43 atorvastatin Allergy Unknown MUSCLE PAIN Verified 05/08/20 12:43 ezetimibe Allergy Unknown MUSCLE PAIN Verified 05/08/20 12:43 simvastatin Allergy Unknown MUSCLE PAIN Verified 05/08/20 12:43 amlodipine AdvReac Severe Nausea Verified 05/08/20 12:43 azithromycin AdvReac Intermediate Palpitation Verified 05/08/20 12:43 s warfarin AdvReac Intermediate EXTREME Verified 05/08/20 12:43 BLEEDING TIMES codeine AdvReac Mild VOMITING Verified 05/08/20 12:43 gemfibrozil AdvReac Mild NAUSEA Verified 05/08/20 12:43 meperidine AdvReac Mild VOMITING Verified 05/08/20 12:43 ondansetron AdvReac Mild vomiting Verified 05/08/20 12:43 ranitidine [From Zantac] AdvReac Mild dyspepsia Verified 05/08/20 12:43 cortisone AdvReac Unknown INCREASES Verified 05/08/20 12:43 SUGAR AND VOMITING? hydralazine AdvReac Unknown VOMITING Verified 05/08/20 12:43 ibuprofen AdvReac Unknown VOMITING Verified 05/08/20 12:43 AND DIARRHEA iodine AdvReac Unknown SHELLFISH Verified 05/08/20 12:43 - VOMITING shellfish derived AdvReac Unknown VOMITING Verified 05/08/20 12:43 Sulfa (Sulfonamide AdvReac Unknown VOMITING Verified 05/08/20 12:43 Antibiotics) Home Medications Home Medications Medication Instructions Recorded Confirmed Type ascorbic acid (vitamin C) [Vitamin 1,000 mg PO QAM 06/20/18 05/08/20 History C] ergocalciferol (vitamin D2) 50,000 unit PO WK 06/20/18 05/08/20 History [Vitamin D2] multivitamin 1 tab PO QAM 06/20/18 05/08/20 History nitroglycerin 0.4 mg sublingual 0.4 mg SL Q5M PRN #25 tab 02/26/19 05/08/20 History tablet insulin lispro [Humalog KwikPen 11 unit SUBCUT QDB 04/22/19 05/08/20 History Insulin] insulin lispro [Humalog KwikPen 18 unit SUBCUT QDL 04/22/19 05/08/20 History Insulin] insulin lispro [Humalog KwikPen 20 unit SUBCUT QDD 04/22/19 05/08/20 History Insulin] levothyroxine [Synthroid] 25 mcg PO QAM 06/04/19 05/08/20 History buspirone 10 mg PO BID 07/12/19 05/08/20 History ipratropium-albuterol 3 ml NEB QIDR PRN #90 ml 07/17/19 05/08/20 Rx Oxygen Home #1 ea 09/19/19 04/14/20 Rx sennosides [Senokot] 17.2 mg PO QAM #60 tab 09/19/19 05/08/20 Rx sodium chloride [Saline Nasal Mist] 2 sprays INTNAS QID PRN #45 ml 09/19/19 05/08/20 Rx Basaglar KwikPen U-100 Insulin 30 units SUBCUT BID 12/25/19 05/08/20 History furosemide 40 mg tablet 40 mg PO QAM tab 01/14/20 05/08/20 History metoprolol tartrate 50 mg tablet 25 - 50 mg PO AMPM tab 01/14/20 05/08/20 History acetaminophen [Tylenol Extra 500 mg PO Q6H PRN 02/06/20 05/08/20 History Strength] pregabalin [Lyrica] 200 mg PO BID 02/06/20 05/08/20 History allopurinol 100 mg tablet 100 mg PO QAM 04/09/20 05/08/20 History apixaban 5 mg tablet 5 mg PO BID #60 tab 04/09/20 05/08/20 Rx prednisone 5 mg tablet 5 mg PO QAM 04/09/20 05/08/20 History clopidogrel [Plavix] 75 mg PO QAM 05/08/20 05/08/20 History famotidine 20 mg PO BID 05/08/20 05/08/20 History Patient History Medical History Angina pectoris Chronic kidney disease, stage 4 (severe) CKD (chronic kidney disease) stage 3, GFR 30-59 ml/min COPD with acute exacerbation Diabetes Diabetic foot ulcer associated with type 2 diabetes mellitus Diastolic CHF 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) Dyslipidemia HTN (hypertension) Hypertrophic cardiomyopathy apical variant Hypothyroidism Knee arthropathy Lung cancer Myocardial infarction X4 Peripheral neuropathy Proteinuria Subdural hematoma Thrombocytopenia chronic; baseline platelets low 100's Vitamin D deficiency Surgical History History of cardioversion MULTIPLE History of cataract surgery History of lung surgery PARTIAL LEFT LOBECTOMY (2013) Hx of brain surgery 2017 S/P FALL/INJURY; SUBSEQUENT BLOOD CLOT EVACUATION Knee joint replacement status S/P cardiac catheterization 7 TOTAL; CARDIAC STENTS X6 S/P hysterectomy S/P tonsillectomy Family History Father Cancer Heart disease Diabetes Mother Stroke Hypertension Grandmother (Maternal) Coronary heart disease Stroke Family/Other Multiple sclerosis Brother Coronary heart disease Grandfather (Maternal) Heart disease Grandfather (Paternal) Diabetes Aunt Muscular dystrophy Other Gallbladder disease Kidney stones Social History Smoking Status: Never smoker Second Hand Exposure: No; Hx Alcohol Use: No Hx Substance Use: No Preferred Language: Polish Communication Ability: Effective Cdl Driver Required: No Beliefs That Will Affect Care: None marital status: Current Living Situation: Spouse Current Living Situation Comment: lives in [place] 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 Other Information That Helps Us Care for You: No other: 3 children Feels Safe at Home: Hesitant to Answer Safety Concerns: Feels Safe At This Time Assistive Devices: CPAP and Oxygen - Continuous Assistive Devices Comment: 3L chronic Review of Systems Review of Systems: All systems reviewed & are unremarkable except as noted in Subjective Physical Exam Constitutional: + obese Eyes: no conjunctival abnormality ENMT: Ears: no external ear abnormality Nose: no external nose abnormality Neck: normal visual inspection and trachea midline Respiratory: normal respiratory effort; no respiratory distress and no labored breathing Cardiovascular: Rate/Rhythm: regular rate and regular rhythm Gastrointestinal (Abdomen): Inspection/Auscultation: normal bowel sounds Percussion/Palpation: abdomen soft; abdomen nontender, no guarding and abdomen not rigid Musculoskeletal: Extremities: no cyanosis and no clubbing Neurologic: moves all extremities Psychiatric: A+Ox3, euthymic affect Results & Data ([facility]) Vital Signs (Past 12 Hours) Vital Signs Temp Pulse Pulse Resp BP BP Pulse Ox 05/09/20 03:55 36.3 C L 70 18 111/72 97 05/09/20 01:38 71 05/08/20 23:01 70 18 95 05/08/20 22:45 36.3 C L 70 18 129/78 95 Laboratory Results - last 24 hr 05/08/20 05/08/20 05/08/20 11:42 11:42 11:42 WBC 5.60 RBC 3.91 L Hgb 11.6 L Hct 38.7 MCV 99.0 MCH 29.7 MCHC 30.0 L RDW Std Deviation 64.7 H RDW Coeff of Nhi 18.1 H Plt Count 106 L MPV 11.9 H Immature Gran % (Auto) 0.9 Neut % (Auto) 76.9 Lymph % (Auto) 9.8 Tripp % (Auto) 9.3 Eos % (Auto) 2.7 Baso % (Auto) 0.4 Neut # (Auto) 4.31 Lymph # (Auto) 0.55 L Tripp # (Auto) 0.52 Eos # (Auto) 0.15 Baso # (Auto) 0.02 Immature Gran # (Auto) 0.05 H Platelet Estimate PT 11.3 INR 1.1 APTT 31.3 H PTT Ratio 1.1 Sodium 144 Potassium 4.3 Chloride 103 Carbon Dioxide 37 H Anion Gap 4.0 BUN 56 H Creatinine 1.99 H Est Cr Clr Drug Dosing Not Reportable Est GFR ( Amer) 27.0 Est GFR (Non-Af Amer) 23.3 BUN/Creatinine Ratio 28.1 H Glucose 185 H POC Glucose Estimat Average Glucose Hemoglobin A1c Calcium 8.7 Magnesium 2.2 Total Bilirubin 0.5 AST 35 ALT 39 Alkaline Phosphatase 76 Troponin I 0.102 H* NT-Pro-B Natriuret Pep 8092 H Total Protein 6.2 L Albumin 3.0 L Globulin 3.2 Albumin/Globulin Ratio 0.9 Urine Color Urine Appearance Urine pH Ur Specific [place] Urine Protein Urine Glucose (UA) Urine Ketones Urine Blood Urine Nitrite Urine Bilirubin Urine Urobilinogen Ur Leukocyte Esterase Urine WBC (Auto) Urine RBC (Auto) U Hyaline Cast (Auto) U Epithel Cells (Auto) Urine Bacteria (Auto) 05/08/20 05/08/20 05/08/20 11:55 16:30 20:26 WBC RBC Hgb Hct MCV MCH MCHC RDW Std Deviation RDW Coeff of Nhi Plt Count MPV Immature Gran % (Auto) Neut % (Auto) Lymph % (Auto) Tripp % (Auto) Eos % (Auto) Baso % (Auto) Neut # (Auto) Lymph # (Auto) Tripp # (Auto) Eos # (Auto) Baso # (Auto) Immature Gran # (Auto) Platelet Estimate PT INR APTT PTT Ratio Sodium Potassium Chloride Carbon Dioxide Anion Gap BUN Creatinine Est Cr Clr Drug Dosing Est GFR ( Amer) Est GFR (Non-Af Amer) BUN/Creatinine Ratio Glucose POC Glucose 227 H 187 H Estimat Average Glucose Hemoglobin A1c Calcium Magnesium Total Bilirubin AST ALT Alkaline Phosphatase Troponin I NT-Pro-B Natriuret Pep Total Protein Albumin Globulin Albumin/Globulin Ratio Urine Color Yellow Urine Appearance Clear Urine pH 5.5 Ur Specific [place] 1.011 Urine Protein Negative Urine Glucose (UA) Negative Urine Ketones Negative Urine Blood Negative Urine Nitrite Negative Urine Bilirubin Negative Urine Urobilinogen Negative Ur Leukocyte Esterase Trace H Urine WBC (Auto) 5-10 H Urine RBC (Auto) 0-4 U Hyaline Cast (Auto) 1-5 U Epithel Cells (Auto) 10-20 H Urine Bacteria (Auto) Negative 05/09/20 05/09/20 05/09/20 05:50 05:50 05:50 WBC 5.05 RBC 3.90 L Hgb 11.7 L Hct 39.2 MCV 100.5 H MCH 30.0 MCHC 29.8 L RDW Std Deviation 65.0 H RDW Coeff of Nhi 18.0 H Plt Count 115 L MPV 12.7 H Immature Gran % (Auto) Neut % (Auto) Lymph % (Auto) Tripp % (Auto) Eos % (Auto) Baso % (Auto) Neut # (Auto) Lymph # (Auto) Tripp # (Auto) Eos # (Auto) Baso # (Auto) Immature Gran # (Auto) Platelet Estimate Decreased L PT INR APTT PTT Ratio Sodium 145 Potassium 4.4 Chloride 101 Carbon Dioxide 39 H Anion Gap 5.0 BUN 57 H Creatinine 2.09 H Est Cr Clr Drug Dosing 21.9 Est GFR ( Amer) 25.5 Est GFR (Non-Af Amer) 22.0 BUN/Creatinine Ratio 27.0 H Glucose 117 H POC Glucose Estimat Average Glucose 203 Hemoglobin A1c 8.7 H Calcium 8.5 Magnesium Total Bilirubin AST ALT Alkaline Phosphatase Troponin I NT-Pro-B Natriuret Pep 46735 H Total Protein Albumin Globulin Albumin/Globulin Ratio Urine Color Urine Appearance Urine pH Ur Specific [place] Urine Protein Urine Glucose (UA) Urine Ketones Urine Blood Urine Nitrite Urine Bilirubin Urine Urobilinogen Ur Leukocyte Esterase Urine WBC (Auto) Urine RBC (Auto) U Hyaline Cast (Auto) U Epithel Cells (Auto) Urine Bacteria (Auto) 05/09/20 07:40 WBC RBC Hgb Hct MCV MCH MCHC RDW Std Deviation RDW Coeff of Nhi Plt Count MPV Immature Gran % (Auto) Neut % (Auto) Lymph % (Auto) Tripp % (Auto) Eos % (Auto) Baso % (Auto) Neut # (Auto) Lymph # (Auto) Tripp # (Auto) Eos # (Auto) Baso # (Auto) Immature Gran # (Auto) Platelet Estimate PT INR APTT PTT Ratio Sodium Potassium Chloride Carbon Dioxide Anion Gap BUN Creatinine Est Cr Clr Drug Dosing Est GFR ( Amer) Est GFR (Non-Af Amer) BUN/Creatinine Ratio Glucose POC Glucose 174 H Estimat Average Glucose Hemoglobin A1c Calcium Magnesium Total Bilirubin AST ALT Alkaline Phosphatase Troponin I NT-Pro-B Natriuret Pep Total Protein Albumin Globulin Albumin/Globulin Ratio Urine Color Urine Appearance Urine pH Ur Specific [place] Urine Protein Urine Glucose (UA) Urine Ketones Urine Blood Urine Nitrite Urine Bilirubin Urine Urobilinogen Ur Leukocyte Esterase Urine WBC (Auto) Urine RBC (Auto) U Hyaline Cast (Auto) U Epithel Cells (Auto) Urine Bacteria (Auto)
[2020-05-09] MEDS: PROMETHAZINE HCL 25 MG TAB PO PRN (11:55)
[2020-05-09] MEDS: METOPROLOL TARTRATE 50 MG TAB PO SCH ×2 (12:03→20:35)
[2020-05-09] MEDS: PREGABALIN 100 MG CAP PO SCH ×2 (12:04→20:45)
--- NOTE | 2020-05-09 14:57 | Consultation Report ---
DATE OF CONSULTATION: 05/09/2020 Addendum to the consult note done by Lilo Guzman: I interviewed and examined the patient and reviewed the chart and lab work. The patient was admitted with congestive heart failure and has been having a 3-month history of difficulty swallowing both meat and pills. She did have the same problem years ago and had an EGD with dilation by Dr. Rothman, and after which, she reports that her swallowing improved. Currently the patient is very weak and short of breath at rest and not a good candidate for sedation for an endoscopy. When she is a little bit stronger, I recommend that we proceed with a barium swallow to see if we can document a stricture as she may actually just have a motility disorder, in which case an EGD would not be necessary. If she does have a stricture, then we will have to wait until she is more stable medically to tolerate an EGD and sedation. We will continue to follow the patient.
--- NOTE | 2020-05-09 16:51 | Hospitalist Progress Note ---
Date of Service May 09, 2020 Assessment & Plan (1) Acute on chronic diastolic heart failure: BNP elevated to 10,500. - Continue Lasix IV 40 mg twice daily - Heart healthy, low-sodium diet, fluid restrict 1500 mL (2) Dysphagia: Progressively worsening dysphagia over the last year. Associated weight loss. Prior history of esophageal stenosis. Soft easy to chew diet here to see how she tolerates food and taking her medication. - Consulted GI -> Plan for barium swallow and/or EGD when more stable. (3) Diarrhea: Ongoing for the last week. CT a/p on 05/08 without acute issues. - Monitor BMs here. - None noted so far on nursing records. (4) Suprapubic pain: Lower abdominal pain on exam. Not previously mentioned on prior exams however unclear how acute this is per patient. - No further mention of pain today. - UA with a few WBCs, but no bacteria and also with significant contamination from epithelial cells. (5) Right flank pain: Notably had a CT in January from her PCP which mentions symptoms of flank pain and hematuria. Unclear if this was the same side but the patient does report she has had pain in this area in the past. - Work-up as above generally negative and symptoms not mentioned today. (6) Dizziness: Patient describes vertigo, disequilibrium, and presyncope. No episodes of syncope. Progressively worse over the last 2 weeks but possibly going on for longer than a year. - Check orthostatics (7) Elevated troponin: No acute chest pain or shortness of breath to suggest ACS. Likely demand ischemia. - Trend 1 more troponin (8) Coronary artery disease: S/p remote multivessel stenting and RCA AWILDA x2 (06/2018). - Continue clopidogrel, metoprolol - Intolerant to statins. (9) Paroxysmal A-fib: Currently has P waves on EKG. Multiple paroxysmal episodes on recent pacemaker check. - Continue apixaban - Continue rate control with metoprolol tartrate 50 mg p.o. every morning, 25 mg every afternoon (10) HTN (hypertension): BP presently 103/60. - Continue metoprolol at current dose. (11) Chronic kidney disease, stage 4 (severe): Baseline Cr ~2.0. At baseline. - Monitor BMP daily with increased dose of Lasix. (12) Diabetes: HbA1c was 8.7% this admission. - Hold her home insulin regimen at the current time (total daily dose 109 units) - Due to her dysphagia she is likely eating less and her carbohydrate intake would likely be less in hospital there for decrease total dose: - Lantus 20 units twice daily, NovoLog sliding scale (13) Peripheral neuropathy: Suspect secondary to diabetes. - Continue Lyrica 200 mg p.o. twice daily (14) Sleep apnea: Patient on BiPAP at home. May use her own here if allowed by hospital policy. (15) Hypothyroidism: TSH was 1.7 in 01/2020. No signs/symptoms of hypo-/hyperthyroidism. - Continue levothyroxine 25 mcg p.o. daily. (16) Gout: Recently diagnosed chronic gout earlier this year. No current exacerbation. - Continue allopurinol 100 mg p.o. every morning, prednisone 5 mg p.o. daily. (17) DVT prophylaxis: Apixaban as above Admission and Anticipated Discharge Date Admission Date: May 08, 2020 Subjective Feels well today. Did not report any further diarrhea. Reports no fevers/chills, chest pain, shortness of breath, abdominal pain, nausea, or vomiting. Physical Exam Constitutional: WD/WN, vitals as above Eyes: EOM intact bilaterally; no conjunctival abnormality ENMT: external ear and nose normal, oropharynx normal Neck: trachea midline, no thyromegaly normal visual inspection Respiratory: normal respiratory effort, lungs clear to auscultation no respiratory distress Cardiovascular: RRR, no murmur, no edema Gastrointestinal (Abdomen): Inspection/Auscultation: abdomen normal to inspection; abdomen not distended Musculoskeletal: no cyanosis or clubbing, extremities motor strength 5/5 Skin: no rashes, warm and dry Neurologic: moves all extremities and awake Psychiatric: Orientation: alert, oriented to person and cooperative Results & Data Results & Data ([facility]) Vital Signs (Past 12 Hours) Vital Signs Temp Pulse Pulse Resp BP Pulse Ox 05/09/20 16:11 36.5 C 74 18 103/61 96 05/09/20 11:48 36.6 C 79 18 130/76 91 05/09/20 08:30 70 PG Care Time/CCT Total # of Minutes Spent Total Time Spent with Patient: Total time spent is greater than 50% in coordination of care (as documented) at patient's floor/unit and/or counseling patient: Coding Level of Care Code 00830 Subseq Hosp Care Lvl 2 Diagnoses Acute on chronic diastolic heart failure I50.33 Dysphagia R13.10 Diarrhea R19.7 Suprapubic pain R10.2 Right flank pain R10.9 Dizziness R42 Elevated troponin R79.89 Coronary artery disease I25.10 Coronary Disease-Associated Artery/Lesion type: [place] artery [place] vs. transplanted heart: [place] heart Associated angina: without angina Paroxysmal A-fib I48.0 HTN (hypertension) I10 Hypertension type: essential hypertension Chronic kidney disease, stage 4 (severe) N18.4 Diabetes E11.9; Z79.4 Diabetes mellitus type: type 2 Diabetes mellitus [facility] insulin use: with rodent exterminator use Diabetes mellitus complication status: without complication Peripheral neuropathy G62.9 Sleep apnea G47.33 Sleep apnea type: obstructive Hypothyroidism E03.9 Hypothyroidism type: unspecified Gout M1A.[id number] Gout site: multiple sites Gout etiology: due to renal impairment Chronicity: chronic Presence of tophus: with tophus DVT prophylaxis Z29.9 (1) Coronary artery disease Coronary Disease-Associated Artery/Lesion type: [place] artery [place] vs. transplanted heart: [place] heart Associated angina: without angina Qualified Code(s): I25.10 - Atherosclerotic heart disease of [place] coronary artery without angina pectoris (2) HTN (hypertension) Hypertension type: essential hypertension Qualified Code(s): I10 - Essential (primary) hypertension (3) Diabetes Diabetes mellitus type: type 2 Diabetes mellitus [facility] insulin use: with rodent exterminator use Diabetes mellitus complication status: without complication Qualified Code(s): E11.9 - Type 2 diabetes mellitus without complications; Z79.4 - rodent exterminator (current) use of insulin (4) Sleep apnea Sleep apnea type: obstructive Qualified Code(s): G47.33 - Obstructive sleep apnea (adult) (pediatric) (5) Hypothyroidism Hypothyroidism type: unspecified Qualified Code(s): E03.9 - Hypothyroidism, unspecified (6) Gout Gout site: multiple sites Gout etiology: due to renal impairment Chronicity: chronic Presence of tophus: with tophus Qualified Code(s): M1A.39X1 - Chronic gout due to renal impairment, multiple sites, with tophus (tophi)
[2020-05-10] MEDS: PREGABALIN 100 MG CAP PO SCH ×3 (00:36→20:14)
[2020-05-10] MEDS: FAMOTIDINE 20 MG TAB PO SCH ×3 (00:36→20:15)
[2020-05-10] MEDS: busPIRone 5 MG TAB PO SCH ×3 (00:36→20:15)
[2020-05-10] MEDS: METOPROLOL TARTRATE 50 MG TAB PO SCH ×3 (00:36→20:14)
[2020-05-10] MEDS: APIXABAN 5 MG TABLET PO SCH ×2 (00:36→08:33)
[2020-05-10] MEDS: LEVOTHYROXINE SODIUM 25 MCG TABLET PO SCH (06:06)
[2020-05-10 06:59] LABS: Hemoglobin 11.5 g/dL (12.0-16.0); Mean Corpuscular Hemoglobin 29.5 pg (25-34); Mean Corpuscular Hgb Conc 29.5 g/dL (32-36); Mean Platelet Volume 12.6 fL (7.4-10.4); Nucleated RBC # (auto) 0.02 K/uL (0-0); Nucleated RBC % (auto) 0.4 %; Platelet Count 107 K/uL (130-400); RDW Standard Deviation 64.6 fL (36.4-46.3); White Blood Count 4.27 K/uL (4.8-10.8)
[2020-05-10 07:10] LABS: BUN Creatinine Ratio 30.3 (10-20); Calcium 8.9 mg/dl (8.5-10.1); Creatinine Clr Calc Pharmacy 20.9 ml/min; Est GFR (African American) 23.9; Est GFR (Non-African American) 20.6; Magnesium 2.2 mg/dl (1.8-2.4); Potassium 3.9 mmol/L (3.5-5.1)
[2020-05-10] MEDS: SENNA 8.6 MG TAB PO SCH (08:34)
[2020-05-10] MEDS: predniSONE 5 MG TAB PO SCH (08:34)
[2020-05-10] MEDS: CLOPIDOGREL BISULFATE 75 MG TAB PO SCH (08:34)
[2020-05-10] MEDS: ASCORBIC ACID 500 MG TAB PO SCH (08:34)
[2020-05-10] MEDS: MULTIVITAMIN TAB PO SCH (08:35)
[2020-05-10] MEDS: FEXOFENADINE HCL 180 MG TAB PO SCH (08:35)
[2020-05-10] MEDS: allopurinoL 100 MG TAB PO SCH (08:35)
[2020-05-10] MEDS: INSULIN GLARGINE SOLOSTAR 100 UNITS/ML 3 ML PEN SC SCH ×2 (08:39→20:18)
[2020-05-10] MEDS: INSULIN ASPART 100 UNITS/ML 3 ML PEN SC SCH ×4 (09:24→20:19)
[2020-05-10] MEDS: FUROSEMIDE 40 MG in SYRINGE 0 ML IV SCH ×2 (09:25→16:02)
[2020-05-10] MEDS: HEPARIN 100 UNIT/ML 5ML FLUSH FLUSH PRN (16:08)
--- NOTE | 2020-05-10 16:08 | Progress Notes ---
DATE: 05/10/2020 SUBJECTIVE: Patient is sitting in bedside chair, less short of breath today. We tried to schedule a barium swallow yesterday because she is not well enough to be sedated for an EGD and it had to be canceled because she was not able to stand for 3-5 minutes, which is a requirement for the procedure. PHYSICAL EXAMINATION: GENERAL: The patient is overweight. VITAL SIGNS: Blood pressure is 124/72, pulse 75, temperature is 36.9. Nasal cannula 2 liters per minute, oxygen saturation is 97%. LABORATORY DATA: Show white count 4.27, hemoglobin 11.5, platelets are 107,000. Sodium 146, CO2 41, BUN 67, creatinine 2.2. IMPRESSION: The patient is recovering from her congestive heart failure, but still not well enough to have a barium swallow or EGD. I suspect that this will need to be delayed until she is improved enough as an outpatient to come back and undergo a barium swallow first to see if there is a significant stricture and if there is, then we can consider sedating her for an EGD with dilation which will need to be done at the hospital given her significant underlying health risks.
--- NOTE | 2020-05-10 17:22 | Hospitalist Progress Note ---
Date of Service May 10, 2020 Assessment & Plan (1) Acute on chronic diastolic heart failure: BNP elevated to 10,500. - Heart healthy, low-sodium diet, fluid restrict 1500 mL - Improving today. Less edema. Weight down from earlier this year, but not dramatically different from last month. - Continue Lasix IV, but drop to daily given slight bump in Cr, BUN, and CO2. (2) Dysphagia: Progressively worsening dysphagia over the last year. Associated weight loss. Prior history of esophageal stenosis. Soft easy to chew diet here to see how she tolerates food and taking her medication. - Consulted GI -> Plan for barium swallow and/or EGD. - Given stability from pulmonary standpoint, I did enter the barium swallow. Hopefully can get done on Tuesday. (3) Diarrhea: Ongoing for the last week. CT a/p on 05/08 without acute issues. - Monitor BMs here. - No diarrhea noted so far on nursing records or per patient. (4) Suprapubic pain: Lower abdominal pain on exam. Not previously mentioned on prior exams however unclear how acute this is per patient. - No further mention of pain yesterday or today. - UA with a few WBCs, but no bacteria and also with significant contamination from epithelial cells. (5) Right flank pain: Notably had a CT in January from her PCP which mentions symptoms of flank pain and hematuria. Unclear if this was the same side but the patient does report she has had pain in this area in the past. - Work-up as above generally negative and symptoms not mentioned yesterday or today. (6) Dizziness: Patient describes vertigo, disequilibrium, and presyncope. No episodes of syncope. Progressively worse over the last 2 weeks but possibly going on for longer than a year. - Patient up and walking with PT. No further dizziness reported. (7) Elevated troponin: No acute chest pain or shortness of breath to suggest ACS. Likely demand ischemia. - Trend 1 more troponin (8) Coronary artery disease: S/p remote multivessel stenting and RCA AWILDA x2 (06/2018). - Continue clopidogrel, metoprolol - Intolerant to statins. (9) Paroxysmal A-fib: Currently has P waves on EKG. Multiple paroxysmal episodes on recent pacemaker check. - Continue apixaban - Continue rate control with metoprolol tartrate 50 mg p.o. every morning, 25 mg every afternoon (10) HTN (hypertension): BP presently 115/60. - Continue metoprolol at current dose. (11) Chronic kidney disease, stage 4 (severe): Baseline Cr ~2.0. At baseline. - Will drop to daily Lasix today. - Monitor BMP daily with increased dose of Lasix. (12) Diabetes: HbA1c was 8.7% this admission. - Hold her home insulin regimen at the current time (total daily dose 109 units) - Due to her dysphagia she is likely eating less and her carbohydrate intake would likely be less in hospital there for decrease total dose: - Lantus 20 units twice daily, NovoLog sliding scale - Generally good at present. Will need to lower Lantus for being NPO on Tuesday. (13) Peripheral neuropathy: Suspect secondary to diabetes. - Continue Lyrica 200 mg p.o. twice daily (14) Sleep apnea: Patient on BiPAP at home. May use her own here if allowed by hospital policy. (15) Hypothyroidism: TSH was 1.7 in 01/2020. No signs/symptoms of hypo-/hyperthyroidism. - Continue levothyroxine 25 mcg p.o. daily. (16) Gout: Recently diagnosed chronic gout earlier this year. No current exacerbation. - Continue allopurinol 100 mg p.o. every morning, prednisone 5 mg p.o. daily. (17) DVT prophylaxis: Apixaban as above Admission and Anticipated Discharge Date Admission Date: May 08, 2020 Subjective Doing well today. Unable to swallow solid foods still, but feeling more energetic and less shortness of breath. Reports no fevers/chills, chest pain, shortness of breath, abdominal pain, nausea, or vomiting. Physical Exam Constitutional: WD/WN, vitals as above Eyes: EOM intact bilaterally; no conjunctival abnormality ENMT: external ear and nose normal, oropharynx normal Neck: trachea midline, no thyromegaly normal visual inspection Respiratory: normal respiratory effort, lungs clear to auscultation no respiratory distress Cardiovascular: Rate/Rhythm: regular rate and regular rhythm Extremities: + edema (Trace) Gastrointestinal (Abdomen): Inspection/Auscultation: abdomen normal to inspection; abdomen not distended Musculoskeletal: no cyanosis or clubbing, extremities motor strength 5/5 Skin: no rashes, warm and dry Neurologic: moves all extremities and awake Psychiatric: Orientation: alert, oriented to person and cooperative Results & Data [facility] Vital Signs (Past 12 Hours) Vital Signs Temp Pulse Pulse Resp BP Pulse Ox 05/10/20 16:43 36.6 C 79 17 114/62 98 05/10/20 16:00 78 05/10/20 12:39 36.9 C 75 17 124/72 97 05/10/20 09:30 77 05/10/20 06:22 36.6 C 77 20 127/82 96 PG Care Time/CCT Total # of Minutes Spent Total Time Spent with Patient: Total time spent is greater than 50% in coordination of care (as documented) at patient's floor/unit and/or counseling patient: Coding Level of Care Code 53589 Subseq Hosp Care Lvl 3 Diagnoses Acute on chronic diastolic heart failure I50.33 Dysphagia R13.10 Diarrhea R19.7 Suprapubic pain R10.2 Right flank pain R10.9 Dizziness R42 Elevated troponin R79.89 Coronary artery disease I25.10 Coronary Disease-Associated Artery/Lesion type: [place] artery [place] vs. transplanted heart: [place] heart Associated angina: without angina Paroxysmal A-fib I48.0 HTN (hypertension) I10 Hypertension type: essential hypertension Chronic kidney disease, stage 4 (severe) N18.4 Diabetes E11.9; Z79.4 Diabetes mellitus type: type 2 Diabetes mellitus fci insulin use: with fci use Diabetes mellitus complication status: without complication Peripheral neuropathy G62.9 Sleep apnea G47.33 Sleep apnea type: obstructive Hypothyroidism E03.9 Hypothyroidism type: unspecified Gout M1A.39X1 Gout site: multiple sites Gout etiology: due to renal impairment Chronicity: chronic Presence of tophus: with tophus DVT prophylaxis Z29.9 (1) Coronary artery disease Coronary Disease-Associated Artery/Lesion type: [place] artery [place] vs. 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 block assembler insulin use: with terminal block assembler use Diabetes mellitus complication status: without complication Qualified Code(s): E11.9 - Type 2 diabetes mellitus without complications; Z79.4 - [facility] (current) use of insulin (4) Sleep apnea Sleep apnea type: obstructive Qualified Code(s): G47.33 - Obstructive sleep apnea (adult) (pediatric) (5) Hypothyroidism Hypothyroidism type: unspecified Qualified Code(s): E03.9 - Hypothyroidism, unspecified (6) Gout Gout site: multiple sites Gout etiology: due to renal impairment Chronicity: chronic Presence of tophus: with tophus Qualified Code(s): M1A.39X1 - Chronic gout due to renal impairment, multiple sites, with tophus (tophi)
[2020-05-11] MEDS: LEVOTHYROXINE SODIUM 25 MCG TABLET PO SCH (05:58)
[2020-05-11 07:05] LABS: BUN Creatinine Ratio 32.8 (10-20); Calcium 9.1 mg/dl (8.5-10.1); Creatinine Clr Calc Pharmacy 19.4 ml/min; Est GFR (African American) 21.9; Est GFR (Non-African American) 18.9; Hematocrit (blood only) 38.9 % (37-47); Hemoglobin 11.5 g/dL (12.0-16.0); Magnesium 2.2 mg/dl (1.8-2.4); Mean Corpuscular Hemoglobin 29.6 pg (25-34); Mean Corpuscular Hgb Conc 29.6 g/dL (32-36); Mean Corpuscular Volume 100.3 fL (80-100); Mean Platelet Volume 12.9 fL (7.4-10.4); Platelet Count 112 K/uL (130-400); Platelet Estimate Decreased (Normal); Potassium 3.9 mmol/L (3.5-5.1); RDW Coefficient of Variation 18.3 % (11.5-14.5); RDW Standard Deviation 66.6 fL (36.4-46.3); Red Blood Count 3.88 M/uL (4.2-5.4); White Blood Count 4.69 K/uL (4.8-10.8)
[2020-05-11 07:15] LABS: Troponin I 0.072 ng/ml (0-0.045)
[2020-05-11] MEDS: busPIRone 5 MG TAB PO SCH (08:33)
[2020-05-11] MEDS: MULTIVITAMIN TAB PO SCH (08:33)
[2020-05-11] MEDS: ASCORBIC ACID 500 MG TAB PO SCH (08:33)
[2020-05-11] MEDS: allopurinoL 100 MG TAB PO SCH (08:34)
[2020-05-11] MEDS: FAMOTIDINE 20 MG TAB PO SCH ×2 (08:34→20:36)
[2020-05-11] MEDS: predniSONE 5 MG TAB PO SCH (08:34)
[2020-05-11] MEDS: METOPROLOL TARTRATE 50 MG TAB PO SCH ×2 (08:34→20:36)
[2020-05-11] MEDS: SENNA 8.6 MG TAB PO SCH (08:34)
[2020-05-11] MEDS: FEXOFENADINE HCL 180 MG TAB PO SCH (08:35)
[2020-05-11] MEDS: CLOPIDOGREL BISULFATE 75 MG TAB PO SCH (08:35)
[2020-05-11] MEDS: INSULIN GLARGINE SOLOSTAR 100 UNITS/ML 3 ML PEN SC SCH (08:36)
[2020-05-11] MEDS: INSULIN ASPART 100 UNITS/ML 3 ML PEN SC SCH ×4 (08:38→20:38)
[2020-05-11] MEDS: HEPARIN 100 UNIT/ML 5ML FLUSH FLUSH PRN (08:48)
[2020-05-11] MEDS: PREGABALIN 100 MG CAP PO SCH ×2 (08:48→20:35)
[2020-05-11] MEDS ORDERED: FUROSEMIDE 40 MG in SYRINGE 0 ML IV SCH (09:00)
--- NOTE | 2020-05-11 15:42 | Progress Notes ---
DATE: 05/11/2020 SUBJECTIVE: The patient's congestive heart failure is gradually improving. OBJECTIVE: VITAL SIGNS: Blood pressure today 146/72, pulse 72, respirations 20, temperature is 36.5, O2 saturation with 2 liters nasal cannula is 97%. LABORATORY DATA: White count is 4.69, hemoglobin 11.5, platelets are 112,000. BUN 78, creatinine 2.37. Troponin is 0.072. Natriuretic peptide 7239. IMPRESSION: The patient has multiple health problems and barium swallow has been ordered twice, but rejected by x-ray because she could not stand for 3-5 minutes for the test. She is also a poor candidate for sedation currently. We are going to try again on Tuesday for a barium swallow to see if she is able to stand to complete the test to see if there is indeed a stricture that would benefit from EGD with dilation and prefer not to do the EGD and sedate her unless I am sure there is a significant benefit to be gained by dilating the stricture. If she cannot stand for 3-5 minutes tomorrow, then we will wait until she is stronger as an outpatient to try again.
--- NOTE | 2020-05-11 18:46 | Hospitalist Progress Note ---
Date of Service May 11, 2020 Assessment & Plan (1) Acute on chronic diastolic heart failure: BNP elevated to 10,500. - Heart healthy, low-sodium diet, fluid restrict 1500 mL - Seems essentially euvolemic today. - Received Lasix 40 mg IV this morning, but will hold for tomorrow until we see what her Cr is. Presently she appears euvolemic, and her Cr has been edging up over last 2 days. (2) Dysphagia: Progressively worsening dysphagia over the last year. Associated weight loss. Prior history of esophageal stenosis. Soft easy to chew diet here to see how she tolerates food and taking her medication. - Consulted GI -> Plan for barium swallow and/or EGD. - Given stability from pulmonary standpoint, I did enter the barium swallow. Hopefully can get done on Tuesday. (3) Diarrhea: Ongoing for the last week. CT a/p on 05/08 without acute issues. - Monitor BMs here. - No diarrhea noted so far on nursing records or per patient. (4) Suprapubic pain: Lower abdominal pain on exam. Not previously mentioned on prior exams however unclear how acute this is per patient. - No further mention of pain yesterday or today. - UA with a few WBCs, but no bacteria and also with significant contamination from epithelial cells. (5) Right flank pain: Notably had a CT in January from her PCP which mentions symptoms of flank pain and hematuria. Unclear if this was the same side but the patient does report she has had pain in this area in the past. - Work-up as above generally negative and symptoms not mentioned yesterday or today. (6) Dizziness: Patient describes vertigo, disequilibrium, and presyncope. No episodes of syncope. Progressively worse over the last 2 weeks but possibly going on for longer than a year. - Patient up and walking with PT. No further dizziness reported. (7) Elevated troponin: No acute chest pain or shortness of breath to suggest ACS. Likely demand ischemia. - Troponins stable at ~0.07 to 0.1. (8) Coronary artery disease: S/p remote multivessel stenting and RCA AWILDA x2 (06/2018). - Continue clopidogrel, metoprolol - Intolerant to statins. (9) Paroxysmal A-fib: Currently has P waves on EKG. Multiple paroxysmal episodes on recent pacemaker check. - Continue apixaban - Continue rate control with metoprolol tartrate 50 mg p.o. every morning, 25 mg every afternoon (10) HTN (hypertension): BP presently 150/75. - Continue metoprolol at current dose. (11) Chronic kidney disease, stage 4 (severe): Baseline Cr ~2.0. - Only 1 dose of Lasix on 05/11. - Cr up to 2.4 today. Will hold further Lasix until tomorro's labs are back. (12) Diabetes: HbA1c was 8.7% this admission. - Hold her home insulin regimen at the current time (total daily dose 109 units) - Due to her dysphagia she is likely eating less and her carbohydrate intake would likely be less in hospital there for decrease total dose: - Lantus 20 units twice daily, NovoLog sliding scale - Generally good at present. Will need to lower Lantus for being NPO on Tuesday. (13) Peripheral neuropathy: Suspect secondary to diabetes. - Continue Lyrica 200 mg p.o. twice daily (14) Sleep apnea: Patient on BiPAP at home. May use her own here if allowed by hospital policy. (15) Hypothyroidism: TSH was 1.7 in 01/2020. No signs/symptoms of hypo-/hyperthyroidism. - Continue levothyroxine 25 mcg p.o. daily. (16) Gout: Recently diagnosed chronic gout earlier this year. No current exacerbation. - Continue allopurinol 100 mg p.o. every morning, prednisone 5 mg p.o. daily. (17) DVT prophylaxis: Apixaban as above Admission and Anticipated Discharge Date Admission Date: May 08, 2020 Subjective Doing well today. Swelling is essentially resolved. Breathing is near baseline for her. Reports no fevers/chills, chest pain, shortness of breath, abdominal pain, nausea, or vomiting. Physical Exam Constitutional: WD/WN, vitals as above Eyes: EOM intact bilaterally; no conjunctival abnormality ENMT: external ear and nose normal, oropharynx normal Neck: trachea midline, no thyromegaly normal visual inspection Respiratory: normal respiratory effort, lungs clear to auscultation no respiratory distress Cardiovascular: Rate/Rhythm: regular rate and regular rhythm Extremities: + edema (Trace) Gastrointestinal (Abdomen): Inspection/Auscultation: abdomen normal to inspection; abdomen not distended Musculoskeletal: no cyanosis or clubbing, extremities motor strength 5/5 Skin: no rashes, warm and dry Neurologic: moves all extremities and awake Psychiatric: Orientation: alert, oriented to person and cooperative Results & Data Results & Data ([facility]) Vital Signs (Past 12 Hours) Vital Signs Temp Pulse Pulse Resp BP Pulse Ox 05/11/20 16:00 75 05/11/20 15:43 36.6 C 74 18 148/76 H 97 05/11/20 09:25 72 PG Care Time/CCT Total # of Minutes Spent Total Time Spent with Patient: Total time spent is greater than 50% in coordination of care (as documented) at patient's floor/unit and/or counseling patient: Coding Level of Care Code 08188 Subseq Hosp Care Lvl 2 Diagnoses Acute on chronic diastolic heart failure I50.33 Dysphagia R13.10 Diarrhea R19.7 Suprapubic pain R10.2 Right flank pain R10.9 Dizziness R42 Elevated troponin R79.89 Coronary artery disease I25.10 Coronary Disease-Associated Artery/Lesion type: [place] artery [place] vs. transplanted heart: [place] heart Associated angina: without angina Paroxysmal A-fib I48.0 HTN (hypertension) I10 Hypertension type: essential hypertension Chronic kidney disease, stage 4 (severe) N18.4 Diabetes E11.9; Z79.4 Diabetes mellitus type: type 2 Diabetes mellitus [facility] insulin use: with assistant terminal manager use Diabetes mellitus complication status: without complication Peripheral neuropathy G62.9 Sleep apnea G47.33 Sleep apnea type: obstructive Hypothyroidism E03.9 Hypothyroidism type: unspecified Gout M1A.39X1 Gout site: multiple sites Gout etiology: due to renal impairment Chronicity: chronic Presence of tophus: with tophus DVT prophylaxis Z29.9 (1) Coronary artery disease Coronary Disease-Associated Artery/Lesion type: [place] artery [place] vs. transplanted heart: [place] heart Associated angina: without angina Qualified Code(s): I25.10 - Atherosclerotic heart disease of [place] coronary artery without angina pectoris (2) HTN (hypertension) Hypertension type: essential hypertension Qualified Code(s): I10 - Essential (primary) hypertension (3) Diabetes Diabetes mellitus type: type 2 Diabetes mellitus [facility] insulin use: with [facility] use Diabetes mellitus complication status: without complication Randy lified Code(s): E11.9 - Type 2 diabetes mellitus without complications; Z79.4 - assisted (current) use of insulin (4) Sleep apnea Sleep apnea type: obstructive Qualified Code(s): G47.33 - Obstructive sleep apnea (adult) (pediatric) (5) Hypothyroidism Hypothyroidism type: unspecified Qualified Code(s): E03.9 - Hypothyroidism, unspecified (6) Gout Gout site: multiple sites Gout etiology: due to renal impairment Chronicity: chronic Presence of tophus: with tophus Qualified Code(s): M1A.39X1 - Chronic gout due to renal impairment, multiple sites, with tophus (tophi)
[2020-05-11] MEDS: busPIRone 15 MG TAB PO SCH (20:37)
[2020-05-12] MEDS: INSULIN ASPART 100 UNITS/ML 3 ML PEN SC SCH ×4 (07:05→20:09)
[2020-05-12 07:06] LABS: BUN Creatinine Ratio 35.7 (10-20); Calcium 8.8 mg/dl (8.5-10.1); Est GFR (African American) 24.1; Est GFR (Non-African American) 20.8; Magnesium 2.1 mg/dl (1.8-2.4)
[2020-05-12 07:07] LABS: Hemoglobin 11.3 g/dL (12.0-16.0); Mean Corpuscular Hemoglobin 29.6 pg (25-34); Mean Corpuscular Hgb Conc 29.7 g/dL (32-36); Mean Corpuscular Volume 99.5 fL (80-100); Mean Platelet Volume 12.6 fL (7.4-10.4); Platelet Count 103 K/uL (130-400); Platelet Estimate Decreased (Normal); RDW Coefficient of Variation 18.4 % (11.5-14.5); RDW Standard Deviation 66.8 fL (36.4-46.3); Red Blood Count 3.82 M/uL (4.2-5.4); White Blood Count 5.71 K/uL (4.8-10.8)
[2020-05-12] MEDS: INSULIN GLARGINE SOLOSTAR 100 UNITS/ML 3 ML PEN SC SCH (07:52)
--- NOTE | 2020-05-12 08:45 | Gastroenterology Progress Note ---
Date of Service May 12, 2020 Assessment & Plan (1) Dysphagia: (2) History of esophageal stricture: Dysphagia with history of esophageal stricture - Last EGD available for review 2016 required esophageal dilatation. Patient subjectively reports 3-6 month worsening of swallowing foods and pills. Denies coughing with or after swallowing. Just feels as though "things get stuck". Plan is barium swallow to assess for stricture. She has unfortunately not been able to stand the required 3-5 minutes during the two previous attempts. Will attempt again today and if patient is unable to complete, will follow-up as an outpatient. Please refer to supervising physician addendum for further recommendations. Admission and Anticipated Discharge Date Admission Date: May 08, 2020 Subjective Patient denies GI complaints this morning. NPO this morning for barium swallow today. Reports she feels as though she can stand today for testing so hopefully barium swallow can be completed. Alert and oriented. Denies abdominal pain, nausea, vomiting. Reports no difficulty with bowel movements. Review of Systems Review of Systems: All systems reviewed & are unremarkable except as noted in Subjective Physical Exam Constitutional: + obese Eyes: no conjunctival abnormality wears corrective lenses ENMT: Ears: no external ear abnormality Nose: no external nose abnormality Neck: normal visual inspection and trachea midline Respiratory: normal respiratory effort; no respiratory distress and no labored breathing Cardiovascular: Rate/Rhythm: regular rate and regular rhythm Gastrointestinal (Abdomen): Inspection/Auscultation: normal bowel sounds Percussion/Palpation: abdomen soft; abdomen nontender, no guarding and abdomen not rigid Musculoskeletal: Extremities: no cyanosis and no clubbing Neurologic: moves all extremities Psychiatric: A+Ox3, euthymic affect Results & Data ([facility]) Vital Signs (Past 12 Hours) Vital Signs Temp Pulse Pulse Resp BP Pulse Ox 05/12/20 07:12 36.7 C 77 18 125/74 94 05/12/20 03:32 36.6 C 71 16 133/75 96 05/11/20 23:35 71 05/11/20 22:00 36.8 C 70 20 119/76 98 Laboratory Results - last 24 hr 05/11/20 05/11/20 05/11/20 11:46 16:29 20:14 WBC RBC Hgb Hct MCV MCH MCHC RDW Std Deviation RDW Coeff of Nhi Plt Count MPV Platelet Estimate Sodium Potassium Chloride Carbon Dioxide Anion Gap BUN Creatinine Est Cr Clr Drug Dosing Est GFR ( Amer) Est GFR (Non-Af Amer) BUN/Creatinine Ratio Glucose POC Glucose 154 H 118 H 204 H Calcium Magnesium 05/12/20 05/12/20 05/12/20 06:07 06:07 06:52 WBC 5.71 RBC 3.82 L Hgb 11.3 L Hct 38.0 MCV 99.5 MCH 29.6 MCHC 29.7 L RDW Std Deviation 66.8 H RDW Coeff of Nhi 18.4 H Plt Count 103 L MPV 12.6 H Platelet Estimate Decreased L Sodium 143 Potassium 4.0 Chloride 101 Carbon Dioxide 38 H Anion Gap 4.0 BUN 78 H Creatinine 2.19 H Est Cr Clr Drug Dosing 21.0 Est GFR ( Amer) 24.1 Est GFR (Non-Af Amer) 20.8 BUN/Creatinine Ratio 35.7 H Glucose 74 POC Glucose 92 Calcium 8.8 Magnesium 2.1
--- NOTE | 2020-05-12 10:10 | Fluoroscopy Report ---
FL barium swallow CLINICAL HISTORY: Possible stricture COMPARISON STUDY: No previous studies for comparison. Fluoroscopy time: 1.4 minutes. Number of fluoroscopic images: 37. FINDINGS: Mild esophageal dysmotility is noted. No definite esophageal mass or stricture was identifi ed. However, there was persistent holdup of a 13 mm barium tablet within the distal esophagus. Smooth extrinsic narrowing of the mid esophagus is likely related to the right mainstem bronchus. The pill passed beyond this point. No reflux was elicited. No hiatal hernia was identified. Left [id number] and right subclavian pacer are incidentally noted. IMPRESSION: 1. No definite esophageal mass or stricture identified however persistent holdup of a 13 mm barium ta blet within the distal esophagus. Therefore, GI consultation for consideration for endoscopy is recom mended. 2. Mild esophageal dysmotility. ACT 112: Negative or not required by law. Electronically signed by: Jose Mcgregor M.D. 05/12/2020 10:09 AM
[2020-05-12] MEDS: METOPROLOL TARTRATE 50 MG TAB PO SCH ×2 (10:12→20:07)
[2020-05-12] MEDS: ASCORBIC ACID 500 MG TAB PO SCH (10:13)
[2020-05-12] MEDS: SENNA 8.6 MG TAB PO SCH (10:13)
[2020-05-12] MEDS: allopurinoL 100 MG TAB PO SCH (10:13)
[2020-05-12] MEDS: MULTIVITAMIN TAB PO SCH (10:13)
[2020-05-12] MEDS: busPIRone 15 MG TAB PO SCH ×2 (10:13→20:08)
[2020-05-12] MEDS: FAMOTIDINE 20 MG TAB PO SCH ×2 (10:14→20:09)
[2020-05-12] MEDS: predniSONE 5 MG TAB PO SCH (10:14)
[2020-05-12] MEDS: FEXOFENADINE HCL 180 MG TAB PO SCH (10:14)
[2020-05-12] MEDS: CLOPIDOGREL BISULFATE 75 MG TAB PO SCH (10:14)
[2020-05-12] MEDS: PREGABALIN 100 MG CAP PO SCH ×2 (10:14→20:12)
[2020-05-12] MEDS: LEVOTHYROXINE SODIUM 25 MCG TABLET PO SCH (10:14)
--- NOTE | 2020-05-12 16:00 | Progress Notes ---
DATE: 05/12/2020 The patient has been ambulating in the room and is less short of breath. She was able to tolerate a barium swallow today which did not show any discrete strictures. There was mild dysmotility, but a barium tablet did get stuck in the distal esophagus indicating a possible stricture. I discussed with her that we can try scoping her tomorrow and dilating her esophagus if the anesthesiologists are willing to sedate her, so I went ahead and scheduled her pending anesthesiology approval for sedation. We will plan on doing that tomorrow afternoon.
--- NOTE | 2020-05-12 22:22 | Hospitalist Progress Note ---
Date of Service May 12, 2020 Assessment & Plan (1) Acute on chronic diastolic heart failure: BNP elevated to 10,500. - Heart healthy, low-sodium diet, fluid restrict 1500 mL - Seems essentially euvolemic today. - Received Lasix 40 mg IV yesterday, but will hold for today. Presently she appears euvolemic. (2) Dysphagia: Progressively worsening dysphagia over the last year. Associated weight loss. Prior history of esophageal stenosis. Soft easy to chew diet here to see how she tolerates food and taking her medication. - Consulted GI -> Plan for barium swallow and/or EGD. - Barium swallow completed, awaiting input from GI. -Will consult nutrition as well given her weakness. (3) Diarrhea: Ongoing for the last week. CT a/p on 05/08 without acute issues. - Monitor BMs here. - No diarrhea noted so far on nursing records or per patient. (4) Suprapubic pain: Lower abdominal pain on exam. Not previously mentioned on prior exams however unclear how acute this is per patient. - No further mention of pain yesterday or today. - UA with a few WBCs, but no bacteria and also with significant contamination from epithelial cells. (5) Right flank pain: Notably had a CT in January from her PCP which mentions symptoms of flank pain and hematuria. Unclear if this was the same side but the patient does report she has had pain in this area in the past. - Work-up as above generally negative and symptoms not mentioned yesterday or today. (6) Dizziness: Patient describes vertigo, disequilibrium, and presyncope. No episodes of syncope. Progressively worse over the last 2 weeks but possibly going on for longer than a year. - Patient up and walking with PT. No further dizziness reported. (7) Elevated troponin: No acute chest pain or shortness of breath to suggest ACS. Likely demand ischemia. - Troponins stable at ~0.07 to 0.1. (8) Coronary artery disease: S/p remote multivessel stenting and RCA AWILDA x2 (06/2018). - Continue clopidogrel, metoprolol - Intolerant to statins. (9) Paroxysmal A-fib: Currently has P waves on EKG. Multiple paroxysmal episodes on recent pacemaker check. - Continue apixaban - Continue rate control with metoprolol tartrate 50 mg p.o. every morning, 25 mg every afternoon (10) HTN (hypertension): BP presently 150/75. - Continue metoprolol at current dose. (11) Chronic kidney disease, stage 4 (severe): Baseline Cr ~2.0. - Only 1 dose of Lasix on 05/11. - Cr up to 2.4 today. Will hold further Lasix until tomorro's labs are back. (12) Diabetes: HbA1c was 8.7% this admission. - Hold her home insulin regimen at the current time (total daily dose 109 units) - Due to her dysphagia she is likely eating less and her carbohydrate intake would likely be less in hospital there for decrease total dose: - Lantus 20 units twice daily, NovoLog sliding scale - Generally good at present. (13) Peripheral neuropathy: Suspect secondary to diabetes. - Continue Lyrica 200 mg p.o. twice daily (14) Sleep apnea: Patient on BiPAP at home. May use her own here if allowed by hospital policy. (15) Hypothyroidism: TSH was 1.7 in 01/2020. No signs/symptoms of hypo-/hyperthyroidism. - Continue levothyroxine 25 mcg p.o. daily. (16) Gout: Recently diagnosed chronic gout earlier this year. No current exacerbation. - Continue allopurinol 100 mg p.o. every morning, prednisone 5 mg p.o. daily. (17) DVT prophylaxis: Apixaban as above Admission and Anticipated Discharge Date Admission Date: May 08, 2020 Subjective Patient reports feeling well. She has no new complaints at this time. Review of Systems Review of Systems: All systems reviewed & are unremarkable except as noted in HPI & below Physical Exam Physical Exam: Constitutional: WD/WN, vitals as above Eyes: EOM intact bilaterally; no conjunctival abnormality ENMT: external ear and nose normal, oropharynx normal Neck: trachea midline, no thyromegaly normal visual inspection Respiratory: normal respiratory effort, lungs clear to auscultation no respiratory distress Cardiovascular: Rate/Rhythm: regular rate and regular rhythm Extremities: + edema (Trace) Gastrointestinal (Abdomen): Inspection/Auscultation: abdomen normal to inspection; abdomen not distended Musculoskeletal: no cyanosis or clubbing, extremities motor strength 5/5 Skin: no rashes, warm and dry Neurologic: moves all extremities and awake Psychiatric: Orientation: alert, oriented to person and cooperative Results & Data Results & Data ([place]) Vital Signs (Past 12 Hours) Vital Signs Temp Pulse Pulse Resp BP Pulse Ox 05/12/20 22:15 36.7 C 69 18 149/75 H 92 05/12/20 19:00 36.6 C 72 18 182/87 H 97 05/12/20 15:35 70 05/12/20 15:14 36.5 C 71 18 144/74 H 99 05/12/20 11:16 36.7 C 71 18 127/75 97 PG Care Time/CCT Total # of Minutes Spent Total Time Spent with Patient: Total time spent is greater than 50% in coordination of care (as documented) at patient's floor/unit and/or counseling patient: Coding Level of Care Code 49394 Subseq Hosp Care Lvl 3 Diagnoses Acute on chronic diastolic heart failure I50.33 Dysphagia R13.10 Diarrhea R19.7 Suprapubic pain R10.2 Right flank pain R10.9 Dizziness R42 Elevated troponin R79.89 Coronary artery disease I25.10 Associated angina: without angina Coronary Disease-Associated Artery/Lesion type: [place] artery [place] vs. transplanted heart: [place] heart Paroxysmal A-fib I48.0 HTN (hypertension) I10 Hypertension type: essential hypertension Chronic kidney disease, stage 4 (severe) N18.4 Diabetes E11.9; Z79.4 Diabetes mellitus complication status: without complication Diabetes mellitus tank terminal gauger insulin use: with tank terminal gauger use Diabetes mellitus type: type 2 Peripheral neuropathy G62.9 Sleep apnea G47.33 Sleep apnea type: obstructive Hypothyroidism E03.9 Hypothyroidism type: unspecified Gout M1A.39X1 Chronicity: chronic Gout etiology: due to renal impairment Gout site: multiple sites Presence of tophus: with tophus DVT prophylaxis Z29.9 Time Spent (min) 35 (1) Sleep apnea Sleep apnea type: obstructive Qualified Code(s): G47.33 - Obstructive sleep apnea (adult) (pediatric) (2) Diabetes Diabetes mellitus complication status: without complication Diabetes mellitus tank terminal gauger insulin use: with snf use Diabetes mellitus type: type 2 Qualified Code(s): E11.9 - Type 2 diabetes mellitus without complications; Z79.4 - remote computer terminal operator (current) use of insulin (3) Gout Chronicity: chronic Gout etiology: due to renal impairment Gout site: multiple sites Presence of tophus: with tophus Qualified Code(s): M1A.39X1 - Chronic gout due to renal impairment, multiple sites, with tophus (topks) (4) Coronary artery disease Associated angina: without angina Coronary Disease-Associated Artery/Lesion type: [place] artery [place] vs. transplanted heart: [place] heart Qualified Code(s): I25.10 - Atherosclerotic heart disease of [place] coronary artery without angina pectoris (5) Hypothyroidism Hypothyroidism type: unspecified Qualified Code(s): E03.9 - Hypothyroidism, unspecified (6) HTN (hypertension) Hypertension type: essential hypertension Qualified Code(s): I10 - Essential (primary) hypertension
[2020-05-13] MEDS: PROMETHAZINE HCL 25 MG TAB PO PRN (02:43)
[2020-05-13] MEDS: LEVOTHYROXINE SODIUM 25 MCG TABLET PO SCH (06:25)
[2020-05-13] MEDS: INSULIN ASPART 100 UNITS/ML 3 ML PEN SC SCH ×4 (06:43→21:29)
[2020-05-13] MEDS: CLOPIDOGREL BISULFATE 75 MG TAB PO SCH (07:41)
[2020-05-13] MEDS: busPIRone 15 MG TAB PO SCH ×2 (07:41→20:25)
[2020-05-13] MEDS: ASCORBIC ACID 500 MG TAB PO SCH (07:42)
[2020-05-13] MEDS: FAMOTIDINE 20 MG TAB PO SCH ×2 (07:42→20:26)
[2020-05-13] MEDS: METOPROLOL TARTRATE 50 MG TAB PO SCH ×2 (07:42→20:25)
[2020-05-13] MEDS: MULTIVITAMIN TAB PO SCH (07:42)
[2020-05-13] MEDS: FEXOFENADINE HCL 180 MG TAB PO SCH (07:42)
[2020-05-13] MEDS: predniSONE 5 MG TAB PO SCH (07:42)
[2020-05-13] MEDS: allopurinoL 100 MG TAB PO SCH (07:42)
[2020-05-13] MEDS: SENNA 8.6 MG TAB PO SCH (07:42)
[2020-05-13] MEDS: PREGABALIN 100 MG CAP PO SCH ×2 (07:43→20:29)
[2020-05-13] MEDS: INSULIN GLARGINE SOLOSTAR 100 UNITS/ML 3 ML PEN SC SCH (07:43)
--- NOTE | 2020-05-13 08:29 | Gastroenterology Progress Note ---
Date of Service May 13, 2020 Assessment & Plan (1) Dysphagia: (2) History of esophageal stricture: Dysphagia with history of esophageal stricture - Last EGD available for review 2016 required esophageal dilatation. Patient subjectively reports 3-6 month worsening of swallowing foods and pills. Denies coughing with or after swallowing. Just feels as though "things get stuck". Persistent hold up of 13mm barium tablet on barium swallow without mass or stricture. Plan is EGD today if cleared by anesthesia. Please refer to supervising physician addendum for further recommendations. Admission and Anticipated Discharge Date Admission Date: May 08, 2020 Subjective Patient denies GI complaints this morning. Sleepy today. Reports she did not rest well last night. EGD demonstrated no mass or stricture but barium 13mm tablet did not clear. Plan is EGD today if anesthesia clears. Alert and oriented. Denies abdominal pain, nausea, vomiting. Reports no difficulty with bowel movements. Review of Systems Review of Systems: All systems reviewed & are unremarkable except as noted in Subjective Physical Exam Constitutional: + obese Eyes: no conjunctival abnormality ENMT: Ears: no external ear abnormality Nose: no external nose abnormality Neck: normal visual inspection and trachea midline Respiratory: normal respiratory effort; no respiratory distress and no labored breathing Cardiovascular: Rate/Rhythm: regular rate and regular rhythm Gastrointestinal (Abdomen): Inspection/Auscultation: normal bowel sounds Percussion/Palpation: abdomen soft; abdomen nontender, no guarding and abdomen not rigid Musculoskeletal: Extremities: no cyanosis and no clubbing Neurologic: moves all extremities Psychiatric: A+Ox3, euthymic affect Results & Data ([facility]) Vital Signs (Past 12 Hours) Vital Signs Temp Pulse Pulse Resp BP Pulse Ox 05/13/20 07:17 36.6 C 68 20 159/81 H 100 05/13/20 03:38 36.7 C 73 18 157/83 H 94 05/12/20 23:43 75 05/12/20 22:15 36.7 C 69 18 149/75 H 92 Laboratory Results - last 24 hr 05/12/20 05/12/20 05/12/20 11:22 16:31 20:09 POC Glucose 115 H 290 H 118 H 05/13/20 05/13/20 05/13/20 00:00 05:32 07:25 POC Glucose 74 88 95 05/12/2020: [place] barium swallow demonstrated 1. No definite esophageal mass or stricture identified however persistent holdup of a 13 mm barium tablet within the distal esophagus. Therefore, GI consultation for consideration for endoscopy is recommended. 2. Mild esophageal dysmotility.
[2020-05-13 10:09] LABS: BUN Creatinine Ratio 36.3 (10-20); Calcium 9.2 mg/dl (8.5-10.1); Creatinine Clr Calc Pharmacy 23.6 ml/min; Est GFR (African American) 27.7; Est GFR (Non-African American) 23.9; Potassium 4.1 mmol/L (3.5-5.1)
[2020-05-13 10:28] LABS: Hematocrit (blood only) 37.5 % (37-47); Hemoglobin 11.4 g/dL (12.0-16.0); Mean Corpuscular Hemoglobin 30.1 pg (25-34); Mean Corpuscular Hgb Conc 30.4 g/dL (32-36); Mean Corpuscular Volume 98.9 fL (80-100); Mean Platelet Volume 12.8 fL (7.4-10.4); Nucleated RBC # (auto) 0.03 K/uL (0-0); Nucleated RBC % (auto) 0.5 %; Platelet Count 101 K/uL (130-400); RDW Coefficient of Variation 18.4 % (11.5-14.5); RDW Standard Deviation 65.8 fL (36.4-46.3); Red Blood Count 3.79 M/uL (4.2-5.4)
[2020-05-13 10:29] LABS: Platelet Estimate Decreased (Normal)
[2020-05-13 14:05] LABS: Base Excess ABG 7.9 mEq/L (-9-1.8); HCO3 ABG 33 mmol/L (19-24); PCO2 ABG 49 mmHg (35-46); PO2 ABG 52 mmHg (80-95); pH ABG 7.45 (7.35-7.45)
[2020-05-13 14:29] LABS: Allen Test Pos (Pos)
--- NOTE | 2020-05-13 14:32 | Progress Notes ---
DATE: 05/13/2020 The patient was scheduled today for an EGD to evaluate her dysphagia that was symptomatic and shown to be narrowed on barium swallow with inability to pass a 13-mm barium tablet. At the time the patient was scheduled to be called down for the procedure she was felt to be lethargic and hospitalist was summoned and blood gases were obtained. At this point, it was decided by the anesthesiologist and me to cancel her procedure for today and see how she does overnight and consider rescheduling it for tomorrow if she is improved and stable.
--- NOTE | 2020-05-13 22:42 | Hospitalist Progress Note ---
Date of Service May 13, 2020 Assessment & Plan (1) Acute on chronic diastolic heart failure: BNP elevated to 10,500. - Heart healthy, low-sodium diet, fluid restrict 1500 mL - Seems essentially euvolemic today. - Presently she appears euvolemic. (2) Encephalopathy acute: Unsure of the cause, patient has been having elevated CO2 on blood gases. However, on ABG her CO2 was better. This was done after removing oxygen. will continue to monitor her status overnight. Clinically she is better in the afternoon visit at around 17:00 But could not determine the cause. She has not taken any meds that would cause this. (3) Dysphagia: Progressively worsening dysphagia over the last year. Associated weight loss. Prior history of esophageal stenosis. Soft easy to chew diet here to see how she tolerates food and taking her medication. - Consulted GI -> Plan for barium swallow and/or EGD. - Barium swallow completed, awaiting input from GI. -Will consult nutrition as well given her weakness. (4) Diarrhea: Ongoing for the last week. CT a/p on 05/08 without acute issues. - Monitor BMs here. - No diarrhea noted so far on nursing records or per patient. (5) Suprapubic pain: Lower abdominal pain on exam. Not previously mentioned on prior exams however unclear how acute this is per patient. - No further mention of pain yesterday or today. - UA with a few WBCs, but no bacteria and also with significant contamination from epithelial cells. (6) Right flank pain: Notably had a CT in January from her PCP which mentions symptoms of flank pain and hematuria. Unclear if this was the same side but the patient does report she has had pain in this area in the past. - Work-up as above generally negative and symptoms not mentioned yesterday or today. (7) Dizziness: Patient describes vertigo, disequilibrium, and presyncope. No episodes of syncope. Progressively worse over the last 2 weeks but possibly going on for longer than a year. - Patient up and walking with PT. No further dizziness reported. (8) Elevated troponin: No acute chest pain or shortness of breath to suggest ACS. Likely demand ischemia. - Troponins stable at ~0.07 to 0.1. (9) Coronary artery disease: S/p remote multivessel stenting and RCA AWILDA x2 (06/2018). - Continue clopidogrel, metoprolol - Intolerant to statins. (10) Paroxysmal A-fib: Currently has P waves on EKG. Multiple paroxysmal episodes on recent pacemaker check. - Continue apixaban - Continue rate control with metoprolol tartrate 50 mg p.o. every morning, 25 mg every afternoon (11) HTN (hypertension): BP presently 150/75. - Continue metoprolol at current dose. (12) Chronic kidney disease, stage 4 (severe): Baseline Cr ~2.0. - Only 1 dose of Lasix on 05/11. - Cr improved to 1.95. Will hold further Lasix until tomorro's labs are back. (13) Diabetes: HbA1c was 8.7% this admission. - Hold her home insulin regimen at the current time (total daily dose 109 units) - Due to her dysphagia she is likely eating less and her carbohydrate intake would likely be less in hospital there for decrease total dose: - Lantus 20 units twice daily, NovoLog sliding scale - Generally good at present. (14) Peripheral neuropathy: Suspect secondary to diabetes. - Continue Lyrica 200 mg p.o. twice daily (15) Sleep apnea: Patient on BiPAP at home. May use her own here if allowed by hospital policy. (16) Hypothyroidism: TSH was 1.7 in 01/2020. No signs/symptoms of hypo-/hyperthyroidism. - Continue levothyroxine 25 mcg p.o. daily. (17) Gout: Recently diagnosed chronic gout earlier this year. No current exacerbation. - Continue allopurinol 100 mg p.o. every morning, prednisone 5 mg p.o. daily. (18) DVT prophylaxis: Apixaban as above Admission and Anticipated Discharge Date Admission Date: May 08, 2020 Subjective 80 yo female is drowsy today. [facility], she remained sleeping. However, in the evening she awoke. And was able to have a conversation. I discussed the case with her . Review of Systems Review of Systems: All systems reviewed & are unremarkable except as noted in HPI & below Physical Exam Physical Exam: Constitutional: WD/WN, vitals as above Eyes: EOM intact bilaterally; no conjunctival abnormality ENMT: external ear and nose normal, oropharynx normal Neck: trachea midline, no thyromegaly normal visual inspection Respiratory: normal respiratory effort, lungs clear to auscultation no respiratory distress Cardiovascular: Rate/Rhythm: regular rate and regular rhythm Extremities: + edema (Trace) Gastrointestinal (Abdomen): Inspection/Auscultation: abdomen normal to inspection; abdomen not distended Musculoskeletal: no cyanosis or clubbing, extremities motor strength 5/5 Skin: no rashes, warm and dry Neurologic: moves all extremities and awake Psychiatric: Orientation: alert, oriented to person and cooperative Results & Data Results & Data ([facility]) Vital Signs (Past 12 Hours) Vital Signs Temp Pulse Pulse Resp BP Pulse Ox 05/13/20 19:01 36.8 C 94 H 18 121/67 95 05/13/20 15:42 36.7 C 71 20 127/80 91 05/13/20 15:37 72 05/13/20 11:12 37.0 C 45 L 18 151/78 H 96 PG Care Time/CCT Total # of Minutes Spent Total Time Spent with Patient: Total time spent is greater than 50% in coordination of care (as documented) at patient's floor/unit and/or counseling patient: Coding Level of Care Code 25584 Subseq Hosp Care Lvl 3 Diagnoses Acute on chronic diastolic heart failure I50.33 Encephalopathy acute G93.40 Dysphagia R13.10 Diarrhea R19.7 Suprapubic pain R10.2 Right flank pain R10.9 Dizziness R42 Elevated troponin R79.89 Coronary artery disease I25.10 Associated angina: without angina Coronary Disease-Associated Artery/Lesion type: [place] artery [place] vs. transplanted heart: [place] heart Paroxysmal A-fib I48.0 HTN (hypertension) I10 Hypertension type: essential hypertension Chronic kidney disease, stage 4 (severe) N18.4 Diabetes E11.9; Z79.4 Diabetes mellitus complication status: without complication Diabetes mellitus halfway insulin use: with halfway use Diabetes mellitus type: type 2 Peripheral neuropathy G62.9 Sleep apnea G47.33 Sleep apnea type: obstructive Hypothyroidism E03.9 Hypothyroidism type: unspecified Gout M1A.39X1 Chronicity: chronic Gout etiology: due to renal impairment Gout site: multiple sites Presence of tophus: with tophus DVT prophylaxis Z29.9 Time Spent (min) 35 (1) Sleep apnea Sleep apnea type: obstructive Qualified Code(s): G47.33 - Obstructive sleep apnea (adult) (pediatric) (2) Diabetes Diabetes mellitus complication status: without complication Diabetes mellitus manager long term care insulin use: with manager long term care use Diabetes mellitus type: type 2 Qualified Code(s): E11.9 - Type 2 diabetes mellitus without complications; Z79.4 - senior care (current) use of insulin (3) Gout Chronicity: chronic Gout etiology: due to renal impairment Gout site: multiple sites Presence of tophus: with tophus Qualified Code(s): M1A.39X1 - Chronic gout due to renal impairment, multiple sites, with tophus (tophi) (4) Coronary artery disease Associated angina: without angina Coronary Disease-Associated Artery/Lesion type: [place] artery [place] vs. transplanted heart: [place] heart Qualified Code(s): I25.10 - Atherosclerotic heart disease of [place] coronary artery without angina pectoris (5) Hypothyroidism Hypothyroidism type: unspecified Qualified Code(s): E03.9 - Hypothyroidism, unspecified (6) HTN (hypertension) Hypertension type: essential hypertension Qualified Code(s): I10 - Essential (primary) hypertension
[2020-05-14] MEDS: LEVOTHYROXINE SODIUM 25 MCG TABLET PO SCH (05:23)
[2020-05-14] MEDS: HEPARIN 100 UNIT/ML 5ML FLUSH FLUSH PRN (08:09)
[2020-05-14 08:25] LABS: Base Excess VBG 10.9 mEq/L; pH VBG 7.34 (7.36-7.41)
--- NOTE | 2020-05-14 08:36 | Gastroenterology Progress Note ---
Date of Service May 14, 2020 Assessment & Plan (1) Dysphagia: (2) History of esophageal stricture: Dysphagia with history of esophageal stricture - Last EGD available for review 2016 required esophageal dilatation. Patient subjectively reports 3-6 month worsening of swallowing foods and pills. Denies coughing with or after swallowing. Just feels as though "things get stuck". Persistent hold up of 13mm barium tablet on barium swallow without mass or stricture. Plan is EGD today if medically stable and cleared by anesthesia. AM labs are pending for today. Please refer to supervising physician addendum for further recommendations. Admission and Anticipated Discharge Date Admission Date: May 08, 2020 Subjective Patient denies GI complaints this morning. Reports she is feeling well today. Reports slept most of yesterday. EGD demonstrated no mass or stricture but barium 13mm tablet did not clear. Plan is possible EGD today if medically stab le and anesthesia clears. AM labs are pending. Alert and oriented to person, place, time. Denies abdominal pain, nausea, vomiting. Reports no difficulty with bowel movements. Review of Systems Review of Systems: All systems reviewed & are unremarkable except as noted in Subjective Physical Exam Constitutional: + obese Eyes: no conjunctival abnormality ENMT: Ears: no external ear abnormality Nose: no external nose abnormality Neck: normal visual inspection and trachea midline Respiratory: normal respiratory effort; no respiratory distress and no labored breathing Cardiovascular: Rate/Rhythm: regular rate and regular rhythm Gastrointestinal (Abdomen): Inspection/Auscultation: normal bowel sounds Percussion/Palpation: abdomen soft; abdomen nontender, no guarding and abdomen not rigid Musculoskeletal: Extremities: no cyanosis and no clubbing Neurologic: moves all extremities Psychiatric: A+Ox3, euthymic affect Results & Data ([facility]) Vital Signs (Past 12 Hours) Vital Signs Temp Pulse Pulse Resp BP Pulse Ox 05/14/20 08:18 36.5 C 70 18 139/84 93 05/14/20 04:04 36.6 C 74 20 144/77 H 95 05/14/20 03:32 70 05/13/20 22:57 36.7 C 70 18 123/79 95 Abnormal lab results 05/13/20 05/13/20 05/13/20 Range/Units 09:24 09:24 13:55 RBC 3.79 L (4.2-5.4) M/uL Hgb 11.4 L (12.0-16.0) g/dL MCHC 30.4 L (32-36) g/dL RDW Std Deviation 65.8 H (36.4-46.3) fL RDW Coeff of Nhi 18.4 H (11.5-14.5) % Plt Count 101 L (130-400) K/uL MPV 12.8 H (7.4-10.4) fL Absolute Nucleated RBC 0.03 H (0-0) K/uL Platelet Estimate Decreased L (Normal) ABG pCO2 49 H (35-46) mmHg ABG pO2 52 L (80-95) mmHg ABG HCO3 33 H (19-24) mmol/L ABG O2 Saturation 86.0 L (90-95) % ABG Base Excess 7.9 H (-9-1.8) mEq/L Carbon Dioxide 40 H (21-32) mmol/L Anion Gap 2.0 L (3-11) BUN 71 H (7-18) mg/dl Creatinine 1.95 H (0.6-1.2) mg/dl BUN/Creatinine Ratio 36.3 H (10-20) POC Glucose (70-99) mg/dl NT-Pro-B Natriuret Pep 23778 H (0-1800) pg/ml 05/13/20 05/13/20 05/13/20 Range/Units 16:25 18:36 20:52 RBC (4.2-5.4) M/uL Hgb (12.0-16.0) g/dL MCHC (32-36) g/dL RDW Std Deviation (36.4-46.3) fL RDW Coeff of Nhi (11.5-14.5) % Plt Count (130-400) K/uL MPV (7.4-10.4) fL Absolute Nucleated RBC (0-0) K/uL Platelet Estimate (Normal) ABG pCO2 (35-46) mmHg ABG pO2 (80-95) mmHg ABG HCO3 (19-24) mmol/L ABG O2 Saturation (90-95) % ABG Base Excess (-9-1.8) mEq/L Carbon Dioxide (21-32) mmol/L Anion Gap (3-11) BUN (7-18) mg/dl Creatinine (0.6-1.2) mg/dl BUN/Creatinine Ratio (10-20) POC Glucose 105 H 111 H 214 H (70-99) mg/dl NT-Pro-B Natriuret Pep (0-1800) pg/ml 05/14/20 Range/Units 07:44 RBC (4.2-5.4) M/uL Hgb (12.0-16.0) g/dL MCHC (32-36) g/dL RDW Std Deviation (36.4-46.3) fL RDW Coeff of Nhi (11.5-14.5) % Plt Count (130-400) K/uL MPV (7.4-10.4) fL Absolute Nucleated RBC (0-0) K/uL Platelet Estimate (Normal) ABG pCO2 (35-46) mmHg ABG pO2 (80-95) mmHg ABG HCO3 (19-24) mmol/L ABG O2 Saturation (90-95) % ABG Base Excess (-9-1.8) mEq/L Carbon Dioxide (21-32) mmol/L Anion Gap (3-11) BUN (7-18) mg/dl Creatinine (0.6-1.2) mg/dl BUN/Creatinine Ratio (10-20) POC Glucose 110 H (70-99) mg/dl NT-Pro-B Natriuret Pep (0-1800) pg/ml
[2020-05-14] MEDS: FAMOTIDINE 20 MG TAB PO SCH ×2 (08:40→21:32)
[2020-05-14] MEDS: METOPROLOL TARTRATE 50 MG TAB PO SCH ×2 (08:40→21:32)
[2020-05-14] MEDS: predniSONE 5 MG TAB PO SCH (08:41)
[2020-05-14] MEDS: FEXOFENADINE HCL 180 MG TAB PO SCH (08:41)
[2020-05-14] MEDS: ASCORBIC ACID 500 MG TAB PO SCH (08:41)
[2020-05-14] MEDS: MULTIVITAMIN TAB PO SCH (08:42)
[2020-05-14] MEDS: busPIRone 15 MG TAB PO SCH ×2 (08:42→21:32)
[2020-05-14] MEDS: allopurinoL 100 MG TAB PO SCH (08:43)
[2020-05-14] MEDS: CLOPIDOGREL BISULFATE 75 MG TAB PO SCH (08:43)
[2020-05-14 08:59] LABS: Albumin Level 2.8 gm/dl (3.4-5.0); Est GFR (African American) 24.1; Est GFR (Non-African American) 20.8; Potassium 4.4 mmol/L (3.5-5.1)
[2020-05-14 09:03] LABS: Albumin Globulin Ratio 0.8 (0.9-2); Bilirubin,Total 1.1 mg/dl (0.2-1); Globulin 3.6 gm/dl (2.5-4.0); Total Protein 6.4 gm/dl (6.4-8.2)
[2020-05-14 09:19] LABS: Basophils # (auto) 0.02 K/uL (0-0.2); Basophils % (auto) 0.4 %; Eosinophils # (auto) 0.09 K/uL (0-0.5); Eosinophils % (auto) 1.8 %; Hemoglobin 11.5 g/dL (12.0-16.0); Immature Granulocytes # (auto) 0.09 K/uL (0.00-0.02); Immature Granulocytes % (auto) 1.8 %; Lymphocytes % (auto) 12.1 %; Macrocytosis Present; Mean Corpuscular Hemoglobin 30.3 pg (25-34); Mean Corpuscular Hgb Conc 30.3 g/dL (32-36); Monocytes # (auto) 0.55 K/uL (0.11-0.59); Monocytes % (auto) 11.1 %; Neutrophils # (auto) 3.61 K/uL (1.4-6.5); Neutrophils % (auto) 72.8 %; Nucleated RBC # (auto) 0.04 K/uL (0-0); Nucleated RBC % (auto) 0.7 %; Ovalocytes 1+; Platelet Count 97 K/uL (130-400); Platelet Estimate Decreased (Normal); RDW Coefficient of Variation 18.7 % (11.5-14.5); RDW Standard Deviation 67.8 fL (36.4-46.3); White Blood Count 4.96 K/uL (4.8-10.8)
[2020-05-14] MEDS: PREGABALIN 100 MG CAP PO SCH ×2 (09:31→21:31)
[2020-05-14] MEDS: INSULIN GLARGINE SOLOSTAR 100 UNITS/ML 3 ML PEN SC SCH (09:31)
[2020-05-14] MEDS: INSULIN ASPART 100 UNITS/ML 3 ML PEN SC SCH ×4 (09:32→20:30)
[2020-05-14] MEDS: SENNA 8.6 MG TAB PO SCH (10:25)
--- NOTE | 2020-05-14 13:08 | Electrocardiogram Report ---
Test Reason : Blood Pressure : / mmHG Vent. Rate : 070 BPM Atrial Rate : 070 BPM P-R Int : 176 ms QRS Dur : 172 ms QT Int : 458 ms P-R-T Axes : 000 -77 106 degrees QTc Int : 494 ms AV dual-paced rhythm Abnormal ECG When compared with ECG of 08-MAY-2020 11:26, Vent. rate has decreased BY 12 BPM Confirmed by Iggy Fisher ([id number] on 05/14/2020 1:08:27 PM Referred By: REFERRED SELF Confirmed By:Iggy Fisher
--- NOTE | 2020-05-14 14:18 | History & Physical Report ---
Date of Service May 14, 2020 Assessment & Plan Admission and Anticipated Discharge Date Admission Date: May 08, 2020 History of Present Illness Chief Complaint: Dysphagia Primary Care Provider: Lizet Jeter, For EGD Allergies Allergy/AdvReac Type Severity Reaction Status Date / Time eptifibatide Allergy Severe ANAPHYLAXIS Verified 05/08/20 12:43 hornet venom Allergy Severe WASP VENOM Verified 05/08/20 12:43 PROTEIN-ANAPHYLAXIS levofloxacin [From Levaquin] Allergy Severe Hives Verified 05/08/20 12:43 atorvastatin Allergy Unknown MUSCLE PAIN Verified 05/08/20 12:43 ezetimibe Allergy Unknown MUSCLE PAIN Verified 05/08/20 12:43 simvastatin Allergy Unknown MUSCLE PAIN Verified 05/08/20 12:43 amlodipine AdvReac Severe Nausea Verified 05/08/20 12:43 azithromycin AdvReac Intermediate Palpitation Verified 05/08/20 12:43 s warfarin AdvReac Intermediate EXTREME Verified 05/08/20 12:43 BLEEDING TIMES codeine AdvReac Mild VOMITING Verified 05/08/20 12:43 gemfibrozil AdvReac Mild NAUSEA Verified 05/08/20 12:43 meperidine AdvReac Mild VOMITING Verified 05/08/20 12:43 ondansetron AdvReac Mild vomiting Verified 05/08/20 12:43 ranitidine [From Zantac] AdvReac Mild dyspepsia Verified 05/08/20 12:43 cortisone AdvReac Unknown INCREASES Verified 05/08/20 12:43 SUGAR AND VOMITING? hydralazine AdvReac Unknown VOMITING Verified 05/08/20 12:43 ibuprofen AdvReac Unknown VOMITING Verified 05/08/20 12:43 AND DIARRHEA iodine AdvReac Unknown SHELLFISH Verified 05/08/20 12:43 - VOMITING shellfish derived AdvReac Unknown VOMITING Verified 05/08/20 12:43 Sulfa (Sulfonamide AdvReac Unknown VOMITING Verified 05/08/20 12:43 Antibiotics) Home Medications Home Medications Medication Instructions Recorded Confirmed Type ascorbic acid (vitamin C) [Vitamin 1,000 mg PO QAM 06/20/18 05/08/20 History C] ergocalciferol (vitamin D2) 50,000 unit PO WK 06/20/18 05/08/20 History [Vitamin D2] multivitamin 1 tab PO QAM 06/20/18 05/08/20 History nitroglycerin 0.4 mg sublingual 0.4 mg SL Q5M PRN #25 tab 02/26/19 05/08/20 History tablet insulin lispro [Humalog KwikPen 11 unit SUBCUT QDB 04/22/19 05/08/20 History Insulin] insulin lispro [Humalog KwikPen 18 unit SUBCUT QDL 04/22/19 05/08/20 History Insulin] insulin lispro [Humalog KwikPen 20 unit SUBCUT QDD 04/22/19 05/08/20 History Insulin] levothyroxine [Synthroid] 25 mcg PO QAM 06/04/19 05/08/20 History buspirone 10 mg PO BID 07/12/19 05/08/20 History ipratropium-albuterol 3 ml NEB QIDR PRN #90 ml 07/17/19 05/08/20 Rx Oxygen Home #1 ea 09/19/19 04/14/20 Rx sennosides [Senokot] 17.2 mg PO QAM #60 tab 09/19/19 05/08/20 Rx sodium chloride [Saline Nasal Mist] 2 sprays INTNAS QID PRN #45 ml 09/19/19 05/08/20 Rx Basaglar KwikPen U-100 Insulin 30 units SUBCUT BID 12/25/19 05/08/20 History furosemide 40 mg tablet 40 mg PO QAM tab 01/14/20 05/08/20 History metoprolol tartrate 50 mg tablet 25 - 50 mg PO AMPM tab 01/14/20 05/08/20 History acetaminophen [Tylenol Extra 500 mg PO Q6H PRN 02/06/20 05/08/20 History Strength] pregabalin [Lyrica] 200 mg PO BID 02/06/20 05/08/20 History allopurinol 100 mg tablet 100 mg PO QAM 04/09/20 05/08/20 History apixaban 5 mg tablet 5 mg PO BID #60 tab 04/09/20 05/08/20 Rx prednisone 5 mg tablet 5 mg PO QAM 04/09/20 05/08/20 History clopidogrel [Plavix] 75 mg PO QAM 05/08/20 05/08/20 History famotidine 20 mg PO BID 05/08/20 05/08/20 History Past Med/Surg History Medical History Angina pectoris Chronic kidney disease, stage 4 (severe) CKD (chronic kidney disease) stage 3, GFR 30-59 ml/min COPD with acute exacerbation Diabetes Diabetic foot ulcer associated with type 2 diabetes mellitus Diastolic CHF 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) Dyslipidemia HTN (hypertension) Hypertrophic cardiomyopathy apical variant Hypothyroidism Knee arthropathy Lung cancer Myocardial infarction X4 Peripheral neuropathy Proteinuria Subdural hematoma Thrombocytopenia chronic; baseline platelets low 100's Vitamin D deficiency Surgical History History of cardioversion MULTIPLE History of cataract surgery History of lung surgery PARTIAL LEFT LOBECTOMY (2013) Hx of brain surgery 2017 S/P FALL/INJURY; SUBSEQUENT BLOOD CLOT EVACUATION Knee joint replacement status S/P cardiac catheterization 7 TOTAL; CARDIAC STENTS X6 S/P hysterectomy S/P tonsillectomy Family History Father Cancer Heart disease Diabetes Mother Stroke Hypertension Grandmother (Maternal) Coronary heart disease Stroke Family/Other Multiple sclerosis Brother Coronary heart disease Grandfather (Maternal) Heart disease Grandfather (Paternal) Diabetes Aunt Muscular dystrophy Other Gallbladder disease Kidney stones Social History Smoking Status: Never smoker Second Hand Exposure: No; Hx Alcohol Use: No Hx Substance Use: No Preferred Language: Mohawk Communication Ability: Effective Pump Oiler Required: No Beliefs That Will Affect Care: None marital status: Current Living Situation: Spouse Current Living Situation Comment: lives in [place] 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 Other Information That Helps Us Care for You: No other: 3 children Feels Safe at Home: Hesitant to Answer Safety Concerns: Feels Safe At This Time Assistive Devices: Oxygen - Continuous and Walker Assistive Devices Comment: 3L chronic Physical Exam Constitutional: + obese Respiratory: + prolonged expiratory phase Cardiovascular: Rate/Rhythm: regular rate and regular rhythm Gastrointestinal (Abdomen): Percussion/Palpation: abdomen soft Results & Data ([facility]) Vital Signs (Past 12 Hours) Vital Signs Temp Pulse Pulse Resp BP Pulse Ox 05/14/20 11:17 36.4 C L 69 18 148/79 H 96 05/14/20 08:18 36.5 C 70 18 139/84 93 05/14/20 04:04 36.6 C 74 20 144/77 H 95 05/14/20 03:32 70 Code Status & VTE Plan VTE Prophylaxis Plan VTE Prophylaxis will be ordered: Yes
[2020-05-14] MEDS ORDERED: SODIUM CHLORIDE 0.9% 1000ML 1,000 ML IV SCH (14:30)
[2020-05-14] MEDS ORDERED: ATROPINE SULFATE 0.1 MG/ML 10ML SYR IV PRN (14:35)
[2020-05-14] MEDS ORDERED: ePHEDrine sulfate 50 MG/ML AMP IV PRN (14:35)
--- NOTE | 2020-05-14 14:35 | Anesthesiology Consultation ---
Date of Service May 14, 2020 Assessment & Plan ASA ASA4 Proposed Anesthesia Anesthesia Type: MAC Risk / Benefits Reviewed With: PT / POA / Parent / Guardian, Accepts Plan and Informed Consent Obtained History Surgery Operation Date: 05/14/20 16:55 Proposed Procedures p Esophagogastroduodenoscopy Dr Jose Raul Blunt Height/Weight Height: 5 ft 1 in Weight: 88 kg Allergies Allergy/AdvReac Type Severity Reaction Status Date / Time eptifibatide Allergy Severe ANAPHYLAXIS Verified 05/08/20 12:43 hornet venom Allergy Severe WASP VENOM Verified 05/08/20 12:43 PROTEIN-ANAPHYLAXIS levofloxacin [From Levaquin] Allergy Severe Hives Verified 05/08/20 12:43 atorvastatin Allergy Unknown MUSCLE PAIN Verified 05/08/20 12:43 ezetimibe Allergy Unknown MUSCLE PAIN Verified 05/08/20 12:43 simvastatin Allergy Unknown MUSCLE PAIN Verified 05/08/20 12:43 amlodipine AdvReac Severe Nausea Verified 05/08/20 12:43 azithromycin AdvReac Intermediate Palpitation Verified 05/08/20 12:43 s warfarin AdvReac Intermediate EXTREME Verified 05/08/20 12:43 BLEEDING TIMES codeine AdvReac Mild VOMITING Verified 05/08/20 12:43 gemfibrozil AdvReac Mild NAUSEA Verified 05/08/20 12:43 meperidine AdvReac Mild VOMITING Verified 05/08/20 12:43 ondansetron AdvReac Mild vomiting Verified 05/08/20 12:43 ranitidine [From Zantac] AdvReac Mild dyspepsia Verified 05/08/20 12:43 cortisone AdvReac Unknown INCREASES Verified 05/08/20 12:43 SUGAR AND VOMITING? hydralazine AdvReac Unknown VOMITING Verified 05/08/20 12:43 ibuprofen AdvReac Unknown VOMITING Verified 05/08/20 12:43 AND DIARRHEA iodine AdvReac Unknown SHELLFISH Verified 05/08/20 12:43 - VOMITING shellfish derived AdvReac Unknown VOMITING Verified 05/08/20 12:43 Sulfa (Sulfonamide AdvReac Unknown VOMITING Verified 05/08/20 12:43 Antibiotics) Medications Home Medications Medication Instructions Recorded Confirmed Last Taken ascorbic acid (vitamin C) [Vitamin 1,000 mg PO QAM 06/20/18 05/08/20 05/08/20 C] ergocalciferol (vitamin D2) 50,000 unit PO WK 06/20/18 05/08/20 05/03/20 [Vitamin D2] multivitamin 1 tab PO QAM 06/20/18 05/08/20 05/08/20 nitroglycerin 0.4 mg sublingual 0.4 mg SL Q5M PRN #25 tab 02/26/19 05/08/20 Unknown tablet insulin lispro [Humalog KwikPen 11 unit SUBCUT QDB 04/22/19 05/08/20 05/08/20 Insulin] 11 units insulin lispro [Humalog KwikPen 18 unit SUBCUT QDL 04/22/19 05/08/20 05/07/20 Insulin] 18 units insulin lispro [Humalog KwikPen 20 unit SUBCUT QDD 04/22/19 05/08/20 05/07/20 Insulin] 20 units levothyroxine [Synthroid] 25 mcg PO QAM 06/04/19 05/08/20 05/08/20 buspirone 10 mg PO BID 07/12/19 05/08/20 05/08/20 ipratropium-albuterol 3 ml NEB QIDR PRN #90 ml 07/17/19 05/08/20 Unknown Oxygen Home #1 ea 09/19/19 04/14/20 Unknown sennosides [Senokot] 17.2 mg PO QAM #60 tab 09/19/19 05/08/20 05/08/20 sodium chloride [Saline Nasal Mist] 2 sprays INTNAS QID PRN #45 ml 09/19/19 05/08/20 Unknown Basaglar KwikPen U-100 Insulin 30 units SUBCUT BID 12/25/19 05/08/20 05/08/20 30 units furosemide 40 mg tablet 40 mg PO QAM tab 01/14/20 05/08/20 05/08/20 metoprolol tartrate 50 mg tablet 25 - 50 mg PO AMPM tab 01/14/20 05/08/20 05/08/20 50 mg acetaminophen [Tylenol Extra 500 mg PO Q6H PRN 02/06/20 05/08/20 Unknown Strength] pregabalin [Lyrica] 200 mg PO BID 02/06/20 05/08/20 05/08/20 allopurinol 100 mg tablet 100 mg PO QAM 04/09/20 05/08/20 05/08/20 apixaban 5 mg tablet 5 mg PO BID #60 tab 04/09/20 05/08/20 05/08/20 prednisone 5 mg tablet 5 mg PO QAM 04/09/20 05/08/20 05/08/20 clopidogrel [Plavix] 75 mg PO QAM 05/08/20 05/08/20 05/08/20 famotidine 20 mg PO BID 05/08/20 05/08/20 05/08/20 Active Medications Generic Name Dose Route Start Last Admin Trade Name Freq PRN Reason Stop Dose Admin Allopurinol 100 mg 05/09/20 09:00 05/14/20 08:43 Allopurinol 100 Mg Tab PO 06/08/20 08:59 100 mg QAM RAFIA Administration Ascorbic Acid 1,000 mg 05/09/20 09:00 05/14/20 08:41 Ascorbic Acid 500 Mg Tab PO 06/08/20 08:59 1,000 mg QAM RAFIA Administration Buspirone HCl 10 mg 05/11/20 21:00 05/14/20 08:42 Buspirone 15 Mg Tab PO 06/10/20 20:59 10 mg BID RAFIA Administration Clopidogrel Bisulfate 75 mg 05/09/20 09:00 05/14/20 08:43 Clopidogrel Bisulfate 75 Mg Tab PO 06/08/20 08:59 75 mg QAM RAFIA Administration Famotidine 20 mg 05/08/20 21:00 05/14/20 08:40 Famotidine 20 Mg Tab PO 06/07/20 20:59 20 mg BID RAFIA Administration Fexofenadine HCl 180 mg 05/08/20 16:22 05/14/20 08:41 Fexofenadine Hcl 180 Mg Tab PO 06/07/20 16:21 180 mg QAM RAFIA Administration Heparin Sodium (Porcine) 5 ml 05/08/20 22:37 05/14/20 08:09 Heparin 100 Unit/Ml 5ml Flush FLUSH 06/07/20 22:36 5 ml PRN PRN Administration Flush Insulin Aspart 0 units 05/08/20 16:30 05/14/20 13:27 Insulin Aspart 100 Units/Ml 3 Ml Pen SC 06/07/20 16:29 1 units ACHS RAFIA Administration Insulin Glargine 20 units 05/12/20 09:00 05/14/20 09:31 Insulin Glargine Solostar 100 Units/Ml 3 Ml Pen SC 06/11/20 08:59 20 units QAM RAFIA Administration Levothyroxine Sodium 25 mcg 05/09/20 06:30 05/14/20 05:23 Levothyroxine Sodium 25 Mcg Tablet PO 06/08/20 06:29 25 mcg DAILYBB RAFIA Administration Metoprolol Tartrate 50 mg 05/09/20 09:00 05/14/20 08:40 Metoprolol Tartrate 50 Mg Tab PO 06/08/20 08:59 50 mg QAM RAFIA Administration Metoprolol Tartrate 25 mg 05/08/20 21:00 05/13/20 20:25 Metoprolol Tartrate 50 Mg Tab PO 06/07/20 20:59 25 mg PM RAFIA Administration Multivitamins 1 tab 05/09/20 09:00 05/14/20 08:42 Multivitamin Tab PO 06/08/20 08:59 1 tab QAM RAFIA Administration Prednisone 5 mg 05/09/20 09:00 05/14/20 08:41 Prednisone 5 Mg Tab PO 06/08/20 08:59 5 mg QAM RAFIA Administration Pregabalin 200 mg 05/08/20 21:00 05/14/20 09:31 Pregabalin 100 Mg Cap PO 06/07/20 20:59 200 mg BID RAFIA Administration Promethazine HCl 25 mg 05/09/20 10:50 05/13/20 02:43 Promethazine Hcl 25 Mg Tab PO 06/08/20 10:49 25 mg Q6H PRN Administration Nausea And Vomiting Sennosides 17.2 mg 05/09/20 09:00 05/14/20 10:25 Senna 8.6 Mg Tab PO 06/08/20 08:59 Not Given QAM RAFIA NPO Date Last Intake of Fluids: 05/13/20 Time Last Intake of Fluids: 23:59 Last Intake of Fluids Comment: sip of water at 0900 Date Last Intake of Solids: 05/13/20 Time Last Intake of Solids: 17:30 Past Medical History Medical History Angina pectoris Chronic kidney disease, stage 4 (severe) CKD (chronic kidney disease) stage 3, GFR 30-59 ml/min COPD with acute exacerbation Diabetes Diabetic foot ulcer associated with type 2 diabetes mellitus Diastolic CHF 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 (2013) Dyslipidemia HTN (hypertension) Hypertrophic cardiomyopathy apical variant Hypothyroidism Knee arthropathy Lung cancer Myocardial infarction X4 Peripheral neuropathy Proteinuria Subdural hematoma Thrombocytopenia chronic; baseline platelets low 100's Vitamin D deficiency Exercise / Class Metabolic Activity II 4-5 Yardwork/Stairs/Walk up hill Past Family History Family History Father Cancer Heart disease Diabetes Mother Stroke Hypertension Grandmother (Maternal) Coronary heart disease Stroke Family/Other Multiple sclerosis Brother Coronary heart disease Grandfather (Maternal) Heart disease Grandfather (Paternal) Diabetes Aunt Muscular dystrophy Other Gallbladder disease Kidney stones Past Surgical History Surgical History History of cardioversion MULTIPLE History of cataract surgery History of lung surgery PARTIAL LEFT LOBECTOMY (2013) Hx of brain surgery 2017 S/P FALL/INJURY; SUBSEQUENT BLOOD CLOT EVACUATION Knee joint replacement status S/P cardiac catheterization 7 TOTAL; CARDIAC STENTS X6 S/P hysterectomy S/P tonsillectomy Past Anesthesia History No Hx of Anesthesia Complications and No Family Hx of Anesthesia Complications History of PONV No Hx of PONV and No Hx of Motion Sickness Social History Smoking Status: Never smoker Hx Alcohol Use: No Alcohol type: wine alcohol intake frequency: holidays/special occasions only Hx Substance Use: No substance use type: does not use Review of Systems denies fever/cough/ colds/ chest pain/ +SOB/JANICE denies JANICE Physical Exam Vital Signs Last Vital Signs Temp 36.6 C 05/14/20 14:18 Pulse 79 05/14/20 14:18 Resp 18 05/14/20 14:18 BP 157/95 H 05/14/20 14:18 Pulse Ox 99 05/14/20 14:18 ENMT Mouth: + chipped teeth; no TMJ abnormality and no dentition abnormality Thyromental Distance: > or= 3.5 Finger Breadths Mallampati Class: II Neck neck extension not limited Respiratory normal respiratory effort; no respiratory distress Auscultation: lungs clear to auscultation bilaterally Cardiovascular Rate/Rhythm: regular rate and regular rhythm Neurologic moves all extremities Psychiatric Orientation: alert and oriented x 3 Testing Laboratory Results 05/14/20 08:13 05/14/20 08:13 PT 11.3 Seconds (9.0-12.0) 05/08/20 11:42 INR 1.1 (0.9-1.1) 05/08/20 11:42 APTT 31.3 Seconds (21.0-31.0) H 05/08/20 11:42 Hemoglobin A1c 8.7 % (4.5-5.6) H 05/09/20 05:50 Urine Color Yellow 05/08/20 11:55 Urine Appearance Clear (Clear) 05/08/20 11:55 Urine pH 5.5 (4.5-7.5) 05/08/20 11:55 Ur Specific [place] 1.011 (1.000-1.030) 05/08/20 11:55 Urine Protein Negative (Negative) 05/08/20 11:55 Urine Glucose (UA) Negative (Negative) 05/08/20 11:55 Urine Ketones Negative (Negative) 05/08/20 11:55 Urine Nitrite Negative (Negative) 05/08/20 11:55 Ur Leukocyte Esterase Trace (Negative) H 05/08/20 11:55 Urine WBC (Auto) 5-10 /hpf (0-5) H 05/08/20 11:55 Urine RBC (Auto) 0-4 /hpf (0-4) 05/08/20 11:55 U Hyaline Cast (Auto) 1-5 /lpf (0-5) 05/08/20 11:55 U Epithel Cells (Auto) 10-20 /lpf (0-5) H 05/08/20 11:55 Urine Bacteria (Auto) Negative (Negative) 05/08/20 11:55 05/14/20 05/14/20 11:38 07:44 POC Glucose 145 H 110 H
--- NOTE | 2020-05-14 15:06 | GI REPORT ---
Patient Name: Maureen Hagen Procedure Date: 05/14/2020 2:29 PM Date of : 1940 Admit Type: Inpatient Age: 80 Gender: Female Attending MD: Alvin Blunt MD Procedure: Upper GI endoscopy Providers: Alvin Blunt MD Referring MD: Chan Ybarra M.d. Indications: Dysphagia Medicines: Propofol total dose 40 mg IV, Ketamine 10 mg IV, Lidocaine 40 mg IV Complications: Oversedation Estimated Blood Loss: Estimated blood loss: none. Procedure: Pre-Anesthesia Assessment: - Prior to the procedure, a History and Physical was performed, and patient medications, allergies and sensitivities were reviewed. The patient's tolerance of previous anesthesia was reviewed. - The risks and benefits of the procedure and the sedation options and risks were discussed with the patient. All questions were answered and informed consent was obtained. After obtaining informed consent, the endoscope was passed under direct vision. Throughout the procedure, the patient's blood pressure, pulse, and oxygen saturations were monitored continuously. The Endoscope was introduced through the mouth, and advanced to the second part of duodenum. The upper GI endoscopy was accomplished without difficulty. The patient tolerated the procedure poorly due to the patient's respiratory instability (hypoxia). Findings: The Z-line was regular and was found 40 cm from the incisors. The examined esophagus was normal. The entire examined stomach was normal. The examined duodenum was normal. Impression: - Z-line regular, 40 cm from the incisors. - Normal esophagus. - Normal stomach. - Normal examined duodenum. - No specimens collected. Recommendation: - Return patient to hospital [facility] for ongoing care. Alvin Blunt M.D. Alvin Blunt MD 05/14/2020 3:05:15 PM This report has been signed electronically. Note Initiated On: 05/14/2020 2:29 PM Number of Addenda: 0 I attest to the content of the Intraoperative Record and orders documented therein, exceptions below {[id number]}
[2020-05-14] MEDS ORDERED: LIDOCAINE HCL 2% 2 ML VIAL/AMP(20MG/ML) INFIL ONE ×2 (15:12→15:25)
[2020-05-14] MEDS ORDERED: PROPOFOL IV EMULSION 10 MG/ML 20 ML VIAL IV ONE (15:12)
--- NOTE | 2020-05-14 15:44 | Progress Notes ---
DATE: 05/14/2020 Addendum to the progress note by Lilo Guzman: The patient came down to the endoscopy unit today to have her EGD. Her barium swallow earlier showed that a 13-mm barium tablet did hang up a little bit at the lower esophagus and it was felt that possibly she may benefit from a dilation. The patient was sedated with 40 mg of propofol, 40 mg of lidocaine and 10 mg of ketamine. I was able to pass a scope down through the stomach into the small intestine. There was no obvious stricture or other pathology. During this procedure, the patient did have desaturation of her oxygen and the procedure was aborted at that time. She was sent to PACU for recovery because of the low oxygen saturation. Hopefully, she will be able to swallow better. I suspect that she may have a dysmotility as the cause of her dysphagia and not a fixed stricture.
--- NOTE | 2020-05-14 15:51 | Anesthesiology Progress Note ---
Date of Service May 14, 2020 Anesthesia Post Procedure Vital Signs Vital Signs: Temp Pulse Pulse Resp BP Pulse Ox 05/14/20 15:45 36.3 C L 71 24 159/78 H 99 05/14/20 15:35 70 21 157/78 H 99 05/14/20 15:25 70 20 155/82 H 98 05/14/20 15:15 70 17 154/83 H 95 05/14/20 15:13 72 20 100 05/14/20 15:08 36 C L 71 22 152/78 H 99 05/14/20 14:18 36.6 C 79 18 157/95 H 99 05/14/20 11:17 36.4 C L 69 18 148/79 H 96 05/14/20 08:18 36.5 C 70 18 139/84 93 05/14/20 04:04 36.6 C 74 20 144/77 H 95 05/14/20 03:32 70 05/13/20 22:57 36.7 C 70 18 123/79 95 05/13/20 19:01 36.8 C 94 H 18 121/67 95 Pain Intensity Right Flank: Pain Intensity: 4 Transfer of Care Handoff Completed per policy Notes Mental Status: alert / awake / arousable and participated in evaluation Patient Amnestic to Procedure: Yes Nausea / Vomiting: adequately controlled Pain: adequately controlled Airway Patency, RR, SpO2: stable & adequate BP & HR: stable & adequate Hydration State: stable & adequate Anesthetic Complications: no major complications apparent and Pt Satisfied with anesthetic care Notes: pt desaturated to the 60's upon start of anesthesia. pt was stabalized. Procedure was aborted. I feel the patients Pulmonary HTN and low functional reserve capacity limits her ability to sustain her saturations. Pt is not a good candidate for future surgery unless there is a substational improvement in lung function. Pt was recovered in Surgical PACU because she needed her Bipap
--- NOTE | 2020-05-14 22:56 | Hospitalist Progress Note ---
Date of Service May 14, 2020 Assessment & Plan (1) Acute on chronic diastolic heart failure: BNP elevated to 10,500. - Heart healthy, low-sodium diet, fluid restrict 1500 mL - Seems essentially euvolemic today. - Presently she appears euvolemic. (2) Encephalopathy acute: appears to have resolved. There does appear to be some underlying dementia. Will recommend followup with Neuro as outpatient. (3) Dysphagia: Progressively worsening dysphagia over the last year. Associated weight loss. Prior history of esophageal stenosis. Soft easy to chew diet here to see how she tolerates food and taking her medication. - Consulted GI -> Plan for barium swallow and/or EGD. - Barium swallow completed, awaiting input from GI. -Will consult nutrition as well given her weakness. (4) Diarrhea: Ongoing for the last week. CT a/p on 05/08 without acute issues. - Monitor BMs here. - No diarrhea noted so far on nursing records or per patient. (5) Suprapubic pain: Lower abdominal pain on exam. Not previously mentioned on prior exams however unclear how acute this is per patient. - No further mention of pain yesterday or today. - UA with a few WBCs, but no bacteria and also with significant contamination from epithelial cells. (6) Right flank pain: Notably had a CT in January from her PCP which mentions symptoms of flank pain and hematuria. Unclear if this was the same side but the patient does report she has had pain in this area in the past. - Work-up as above generally negative and symptoms not mentioned yesterday or today. (7) Dizziness: Patient describes vertigo, disequilibrium, and presyncope. No episodes of syncope. Progressively worse over the last 2 weeks but possibly going on for longer than a year. - Patient up and walking with PT. No further dizziness reported. (8) Elevated troponin: No acute chest pain or shortness of breath to suggest ACS. Likely demand ischemia. - Troponins stable at ~0.07 to 0.1. (9) Coronary artery disease: S/p remote multivessel stenting and RCA AWILDA x2 (06/2018). - Continue clopidogrel, metoprolol - Intolerant to statins. (10) Paroxysmal A-fib: Currently has P waves on EKG. Multiple paroxysmal episodes on recent pacemaker check. - Continue apixaban - Continue rate control with metoprolol tartrate 50 mg p.o. every morning, 25 mg every afternoon (11) HTN (hypertension): BP presently 150/75. - Continue metoprolol at current dose. (12) Chronic kidney disease, stage 4 (severe): Baseline Cr ~2.0. - Only 1 dose of Lasix on 05/11. - Cr improved to 1.95. Will hold further Lasix until tomorro's labs are back. (13) Diabetes: HbA1c was 8.7% this admission. - Hold her home insulin regimen at the current time (total daily dose 109 units) - Due to her dysphagia she is likely eating less and her carbohydrate intake would likely be less in hospital there for decrease total dose: - Lantus 20 units twice daily, NovoLog sliding scale - Generally good at present. (14) Peripheral neuropathy: Suspect secondary to diabetes. - Continue Lyrica 200 mg p.o. twice daily (15) Sleep apnea: Patient on BiPAP at home. May use her own here if allowed by hospital policy. (16) Hypothyroidism: TSH was 1.7 in 01/2020. No signs/symptoms of hypo-/hyperthyroidism. - Continue levothyroxine 25 mcg p.o. daily. (17) Gout: Recently diagnosed chronic gout earlier this year. No current exacerbation. - Continue allopurinol 100 mg p.o. every morning, prednisone 5 mg p.o. daily. (18) DVT prophylaxis: Apixaban as above Admission and Anticipated Discharge Date Admission Date: May 08, 2020 Subjective 80 yo female reports o new symptoms today. She repors though that she is against going to [facility] as she had a bad experience there. Review of Systems Review of Systems: All systems reviewed & are unremarkable except as noted in HPI & below Physical Exam Physical Exam: Constitutional: WD/WN, vitals as above Eyes: EOM intact bilaterally; no conjunctival abnormality ENMT: external ear and nose normal, oropharynx normal Neck: trachea midline, no thyromegaly normal visual inspection Respiratory: normal respiratory effort, lungs clear to auscultation no respiratory distress Cardiovascular: Rate/Rhythm: regular rate and regular rhythm Extremities: + edema (Trace) Gastrointestinal (Abdomen): Inspection/Auscultation: abdomen normal to inspection; abdomen not distended Musculoskeletal: no cyanosis or clubbing, extremities motor strength 5/5 Skin: no rashes, warm and dry Neurologic: moves all extremities and awake Psychiatric: Orientation: alert, oriented to person and cooperative Results & Data Results & Data ([facility]) Vital Signs (Past 12 Hours) Vital Signs Temp Pulse Pulse Resp BP Pulse Ox 05/14/20 20:00 36.5 C 70 16 158/85 H 95 05/14/20 19:00 36.5 C 70 20 166/89 H 95 05/14/20 16:39 36.6 C 76 18 146/91 H 97 05/14/20 15:45 36.3 C L 71 24 159/78 H 99 05/14/20 15:35 70 21 157/78 H 99 05/14/20 15:25 70 20 155/82 H 98 05/14/20 15:15 70 17 154/83 H 95 05/14/20 15:13 72 20 100 05/14/20 15:08 36 C L 71 22 152/78 H 99 05/14/20 14:18 36.6 C 79 18 157/95 H 99 05/14/20 11:17 36.4 C L 69 18 148/79 H 96 PG Care Time/CCT Total # of Minutes Spent Total Time Spent with Patient: Total time spent is greater than 50% in coordination of care (as documented) at patient's floor/unit and/or counseling patient: Coding Level of Care Code 40280 Subseq Hosp Care Lvl 3 Diagnoses Acute on chronic diastolic heart failure I50.33 Encephalopathy acute G93.40 Dysphagia R13.10 Diarrhea R19.7 Suprapubic pain R10.2 Right flank pain R10.9 Dizziness R42 Elevated troponin R79.89 Coronary artery disease I25.10 Associated angina: without angina Coronary Disease-Associated Artery/Lesion type: [place] artery [place] vs. transplanted heart: [place] heart Paroxysmal A-fib I48.0 HTN (hypertension) I10 Hypertension type: essential hypertension Chronic kidney disease, stage 4 (severe) N18.4 Diabetes E11.9; Z79.4 Diabetes mellitus complication status: without complication Diabetes mellitus termite technician insulin use: with termite technician use Diabetes mellitus type: type 2 Peripheral neuropathy G62.9 Sleep apnea G47.33 Sleep apnea type: obstructive Hypothyroidism E03.9 Hypothyroidism type: unspecified Gout M1A.39X1 Chronicity: chronic Gout etiology: due to renal impairment Gout site: multiple sites Presence of tophus: with tophus DVT prophylaxis Z29.9 Time Spent (min) 35 (1) Sleep apnea Sleep apnea type: obstructive Qualified Code(s): G47.33 - Obstructive sleep apnea (adult) (pediatric) (2) Diabetes Diabetes mellitus complication status: without complication Diabetes mellitus termite technician insulin use: with assisted use Diabetes mellitus type: type 2 Qualified Code(s): E11.9 - Type 2 diabetes mellitus without complications; Z79.4 - terminal operations manager (current) use of insulin (3) Gout Chronicity: chronic Gout etiology: due to renal impairment Gout site: multiple sites Presence of tophus: with tophus Qualified Code(s): M1A.39X1 - Chronic gout due to renal impairment, multiple sites, with tophus (tophi) (4) Coronary artery disease Associated angina: without angina Coronary Disease-Associated Artery/Lesion type: [place] artery [place] vs. transplanted heart: [place] heart Qualified Code(s): I25.10 - Atherosclerotic heart disease of [place] coronary artery without angina pectoris (5) Hypothyroidism Hypothyroidism type: unspecified Qualified Code(s): E03.9 - Hypothyroidism, unspecified (6) HTN (hypertension) Hypertension type: essential hypertension Qualified Code(s): I10 - Essential (primary) hypertension
[2020-05-15] MEDS: LEVOTHYROXINE SODIUM 25 MCG TABLET PO SCH (06:11)
[2020-05-15] MEDS: FEXOFENADINE HCL 180 MG TAB PO SCH (07:52)
[2020-05-15] MEDS: busPIRone 15 MG TAB PO SCH ×2 (07:52→20:52)
[2020-05-15] MEDS: CLOPIDOGREL BISULFATE 75 MG TAB PO SCH (07:53)
[2020-05-15] MEDS: METOPROLOL TARTRATE 50 MG TAB PO SCH ×2 (07:53→20:53)
[2020-05-15] MEDS: predniSONE 5 MG TAB PO SCH (07:53)
[2020-05-15] MEDS: MULTIVITAMIN TAB PO SCH (07:53)
[2020-05-15] MEDS: FAMOTIDINE 20 MG TAB PO SCH ×2 (07:53→20:52)
[2020-05-15] MEDS: SENNA 8.6 MG TAB PO SCH (07:54)
[2020-05-15] MEDS: ASCORBIC ACID 500 MG TAB PO SCH (07:54)
[2020-05-15] MEDS: allopurinoL 100 MG TAB PO SCH (07:54)
[2020-05-15] MEDS: PREGABALIN 100 MG CAP PO SCH ×2 (07:59→20:56)
[2020-05-15] MEDS: INSULIN GLARGINE SOLOSTAR 100 UNITS/ML 3 ML PEN SC SCH (08:03)
[2020-05-15] MEDS: INSULIN ASPART 100 UNITS/ML 3 ML PEN SC SCH ×5 (08:03→21:27)
--- NOTE | 2020-05-15 08:39 | Gastroenterology Progress Note ---
Date of Service May 15, 2020 Assessment & Plan (1) Dysphagia: (2) History of esophageal stricture: Dysphagia with history of esophageal stricture - Last EGD available for review 2016 required esophageal dilatation. Patient subjectively reports 3-6 month worsening of swallowing foods and pills. EGD performed by Dr. Blunt 05/14/2020 demonstrated no evidence of mass or stricture. Swallowing difficulty thought to be related to esophageal dysmotility. If swallowing concerns continue, would recommend speech therapy consult. Spoke to Dr. Ballard with recommendation this morning. Thank you for the consult and please reconsult with further concerns. Please refer to supervising physician addendum for further recommendations. Admission and Anticipated Discharge Date Admission Date: May 08, 2020 Subjective Sleeping upon entry to the room but arouses easily. Patient denies GI complaints this morning. Reports she is feeling well today. EGD 05/14/2020 demonstrated no mass or stricture. Swallowing difficulty thought to be related to esophageal dysmotility. Alert and oriented to person, place, time. Denies abdominal pain, nausea, vomiting. Reports no difficulty with bowel movements. Discharge plan at this time per case management records is to [facility] for rehab. Review of Systems Review of Systems: All systems reviewed & are unremarkable except as noted in Subjective Physical Exam Constitutional: + obese Eyes: no conjunctival abnormality ENMT: Ears: no external ear abnormality Nose: no external nose abnormality Neck: normal visual inspection and trachea midline Respiratory: normal respiratory effort; no respiratory distress and no labored breathing Cardiovascular: Rate/Rhythm: regular rate and regular rhythm Gastrointestinal (Abdomen): Inspection/Auscultation: normal bowel sounds Percussion/Palpation: abdomen soft; abdomen nontender, no guarding and abdomen not rigid Musculoskeletal: Extremities: no cyanosis and no clubbing Neurologic: moves all extremities Psychiatric: A+Ox3, euthymic affect Results & Data ([facility]) Vital Signs (Past 12 Hours) Vital Signs Temp Pulse Pulse Resp BP Pulse Ox 05/15/20 07:25 70 05/15/20 07:24 36.4 C L 71 18 159/82 H 94 05/15/20 03:52 36.4 C L 72 20 143/62 H 98 05/14/20 23:27 36.4 C L 70 20 132/74 97 05/14/20 22:48 70 Abnormal lab results 05/14/20 05/14/20 05/14/20 Range/Units 08:13 08:13 08:13 RBC 3.80 L (4.2-5.4) M/uL Hgb 11.5 L (12.0-16.0) g/dL MCHC 30.3 L (32-36) g/dL RDW Std Deviation 67.8 H (36.4-46.3) fL RDW Coeff of Nhi 18.7 H (11.5-14.5) % Plt Count 97 L (130-400) K/uL MPV 13.0 H (7.4-10.4) fL Lymph # (Auto) 0.60 L (1.2-3.4) K/uL Immature Gran # (Auto) 0.09 H (0.00-0.02) K/uL Absolute Nucleated RBC 0.04 H (0-0) K/uL Platelet Estimate Decreased L (Normal) VBG pH 7.34 L (7.36-7.41) VBG pCO2 75 H (38-50) mmHg Carbon Dioxide 40 H (21-32) mmol/L Anion Gap 2.0 L (3-11) BUN 77 H (7-18) mg/dl Creatinine 2.19 H (0.6-1.2) mg/dl BUN/Creatinine Ratio 35.0 H (10-20) Glucose 101 H (70-99) mg/dl POC Glucose (70-99) mg/dl Total Bilirubin 1.1 H (0.2-1) mg/dl AST 40 H (15-37) U/L Albumin 2.8 L (3.4-5.0) gm/dl Albumin/Globulin Ratio 0.8 L (0.9-2) 05/14/20 05/14/20 05/14/20 Range/Units 11:38 15:16 16:21 RBC (4.2-5.4) M/uL Hgb (12.0-16.0) g/dL MCHC (32-36) g/dL RDW Std Deviation (36.4-46.3) fL RDW Coeff of Nhi (11.5-14.5) % Plt Count (130-400) K/uL MPV (7.4-10.4) fL Lymph # (Auto) (1.2-3.4) K/uL Immature Gran # (Auto) (0.00-0.02) K/uL Absolute Nucleated RBC (0-0) K/uL Platelet Estimate (Normal) VBG pH (7.36-7.41) VBG pCO2 (38-50) mmHg Carbon Dioxide (21-32) mmol/L Anion Gap (3-11) BUN (7-18) mg/dl Creatinine (0.6-1.2) mg/dl BUN/Creatinine Ratio (10-20) Glucose (70-99) mg/dl POC Glucose 145 H 153 H 159 H (70-99) mg/dl Total Bilirubin (0.2-1) mg/dl AST (15-37) U/L Albumin (3.4-5.0) gm/dl Albumin/Globulin Ratio (0.9-2) 05/14/20 05/15/20 Range/Units 20:22 07:28 RBC (4.2-5.4) M/uL Hgb (12.0-16.0) g/dL MCHC (32-36) g/dL RDW Std Deviation (36.4-46.3) fL RDW Coeff of Nhi (11.5-14.5) % Plt Count (130-400) K/uL MPV (7.4-10.4) fL Lymph # (Auto) (1.2-3.4) K/uL Immature Gran # (Auto) (0.00-0.02) K/uL Absolute Nucleated RBC (0-0) K/uL Platelet Estimate (Normal) VBG pH (7.36-7.41) VBG pCO2 (38-50) mmHg Carbon Dioxide (21-32) mmol/L Anion Gap (3-11) BUN (7-18) mg/dl Creatinine (0.6-1.2) mg/dl BUN/Creatinine Ratio (10-20) Glucose (70-99) mg/dl POC Glucose 125 H 111 H (70-99) mg/dl Total Bilirubin (0.2-1) mg/dl AST (15-37) U/L Albumin (3.4-5.0) gm/dl Albumin/Globulin Ratio (0.9-2)
--- NOTE | 2020-05-15 23:18 | Hospitalist Progress Note ---
Date of Service May 15, 2020 Assessment & Plan (1) Acute on chronic diastolic heart failure: BNP elevated to 10,500. - Heart healthy, low-sodium diet, fluid restrict 1500 mL - Seems essentially euvolemic today. - Presently she appears euvolemic. (2) Encephalopathy acute: Waxing and waning. It appears to have resolved however patient is agitated in regards to discharge plan. She may improve with being home, however CM discussed with home health and patient does act strange at home, sometimes refusing her medications. There does appear to be some underlying dementia. Will recommend followup with Neuro as outpatient. May need to consider a psych eval. (3) Dysphagia: Progressively worsening dysphagia over the last year. Associated weight loss. Prior history of esophageal stenosis. Soft easy to chew diet here to see how she tolerates food and taking her medication. - Consulted GI -> Plan for barium swallow and/or EGD. - Barium swallow completed/ EGD completed -appreciate input from GI nutrition. (4) Diarrhea: Ongoing for the last week. CT a/p on 05/08 without acute issues. - Monitor BMs here. - No diarrhea noted so far on nursing records or per patient. (5) Suprapubic pain: Lower abdominal pain on exam. Not previously mentioned on prior exams however unclear how acute this is per patient. - No further mention of pain yesterday or today. - UA with a few WBCs, but no bacteria and also with significant contamination from epithelial cells. Unsure if she may benefit from antibiotics (6) Right flank pain: Notably had a CT in January from her PCP which mentions symptoms of flank pain and hematuria. Unclear if this was the same side but the patient does report she has had pain in this area in the past. - Work-up as above generally negative and symptoms not mentioned yesterday or today. (7) Dizziness: Patient describes vertigo, disequilibrium, and presyncope. No episodes of syncope. Progressively worse over the last 2 weeks but possibly going on for longer than a year. - Patient up and walking with PT. No further dizziness reported. (8) Elevated troponin: No acute chest pain or shortness of breath to suggest ACS. Likely demand ischemia. - Troponins stable at ~0.07 to 0.1. (9) Coronary artery disease: S/p remote multivessel stenting and RCA AWILDA x2 (06/2018). - Continue clopidogrel, metoprolol - Intolerant to statins. (10) Paroxysmal A-fib: Currently has P waves on EKG. Multiple paroxysmal episodes on recent pacemaker check. - Continue apixaban - Continue rate control with metoprolol tartrate 50 mg p.o. every morning, 25 mg every afternoon (11) HTN (hypertension): BP presently 150/75. - Continue metoprolol at current dose. (12) Chronic kidney disease, stage 4 (severe): Baseline Cr ~2.0. - Only 1 dose of Lasix on 05/11. - Cr improved to 1.95. Will hold further Lasix until tomorro's labs are back. (13) Diabetes: HbA1c was 8.7% this admission. - Hold her home insulin regimen at the current time (total daily dose 109 units) - Due to her dysphagia she is likely eating less and her carbohydrate intake would likely be less in hospital there for decrease total dose: - Lantus 20 units twice daily, NovoLog sliding scale - Generally good at present. (14) Peripheral neuropathy: Suspect secondary to diabetes. - Continue Lyrica 200 mg p.o. twice daily (15) Sleep apnea: Patient on BiPAP at home. May use her own here if allowed by hospital policy. (16) Hypothyroidism: TSH was 1.7 in 01/2020. No signs/symptoms of hypo-/hyperthyroidism. - Continue levothyroxine 25 mcg p.o. daily. (17) Gout: Recently diagnosed chronic gout earlier this year. No current exacerbation. - Continue allopurinol 100 mg p.o. every morning, prednisone 5 mg p.o. daily. (18) DVT prophylaxis: Apixaban as above Admission and Anticipated Discharge Date Admission Date: May 08, 2020 Subjective Patient reports feeling better. She wants to go home. She states she wants to watch the debate and wants to be with her dog. She refuses to go to [facility] given how she had a poor experience there. Explained to patient that she may not have a repeat negative experience there. And they may even overcompensate. Also if she does not like it, she could also leave the rehab. However she does not want to go to [facility]. D/W who states he does not feel comfortable taking her home, even though they have home health coming in. Plan was to reconvene tomorrow. However, there appears to have been an argument with the and patient and patient walked out of the room and sat on the [address] refusing to go back in the room. After an extensive discussion and help from security, thankfully one of the guards knew her and was able to calm her down, patient was agreeable to stay in the hospital for the night. I disucssed with case management, though bang does have a component of dementia. I am not sure if we can force her to go to rehab. Review of Systems Review of Systems: All systems reviewed & are unremarkable except as noted in HPI & below Physical Exam Physical Exam: Constitutional: WD/WN, vitals as above Eyes: EOM intact bilaterally; no conjunctival abnormality ENMT: external ear and nose normal, oropharynx normal Neck: trachea midline, no thyromegaly normal visual inspection Respiratory: normal respiratory effort, lungs clear to auscultation no respiratory distress Cardiovascular: Rate/Rhythm: regular rate and regular rhythm Extremities: + edema (Trace) Gastrointestinal (Abdomen): Inspection/Auscultation: abdomen normal to inspection; abdomen not distended Musculoskeletal: no cyanosis or clubbing, extremities motor strength 5/5 Skin: no rashes, warm and dry Neurologic: moves all extremities and awake Psychiatric: Orientation: alert, oriented to person, place Results & Data Results & Data ([facility]) Vital Signs (Past 12 Hours) Vital Signs Temp Pulse Pulse Resp BP BP Pulse Ox 05/15/20 23:12 36.8 C 70 18 148/78 H 96 05/15/20 19:57 36.5 C 73 20 135/71 93 05/15/20 18:54 73 05/15/20 16:16 36.5 C 70 17 167/80 H 97 05/15/20 12:37 36.2 C L 69 16 116/62 97 PG Care Time/CCT Total # of Minutes Spent Total Time Spent with Patient: Total time spent is greater than 50% in coordination of care (as documented) at patient's floor/unit and/or counseling patient: Prolonged Care Time Prolonged Care Time: Yes Total Prolonged Care Time: 65 14:00 to 14:25 17:00 to 17:40 Coding Level of Care Code 21650 Subseq Hosp Care Lvl 3 Diagnoses Acute on chronic diastolic heart failure I50.33 Encephalopathy acute G93.40 Dysphagia R13.10 Diarrhea R19.7 Suprapubic pain R10.2 Right flank pain R10.9 Dizziness R42 Elevated troponin R79.89 Coronary artery disease I25.10 Associated angina: without angina Coronary Disease-Associated Artery/Lesion type: [place] artery [place] vs. transplanted heart: [place] heart Paroxysmal A-fib I48.0 HTN (hypertension) I10 Hypertension type: essential hypertension Chronic kidney disease, stage 4 (severe) N18.4 Diabetes E11.9; Z79.4 Diabetes mellitus complication status: without complication Diabetes mellitus watermaster insulin use: with residential use Diabetes mellitus type: type 2 Peripheral neuropathy G62.9 Sleep apnea G47.33 Sleep apnea type: obstructive Hypothyroidism E03.9 Hypothyroidism type: unspecified Gout M1A.39X1 Chronicity: chronic Gout etiology: due to renal impairment Gout site: multiple sites Presence of tophus: with tophus DVT prophylaxis Z29.9 Additional Codes Prolonged Care Time - Prolonged Care Time: Yes ([id number]) Time Spent (min) 65 (1) Sleep apnea Sleep apnea type: obstructive Qualified Code(s): G47.33 - Obstructive sleep apnea (adult) (pediatric) (2) Diabetes Diabetes mellitus complication status: without complication Diabetes mellitus residential insulin use: with residential use Diabetes mellitus type: type 2 Qualified Code(s): E11.9 - Type 2 diabetes mellitus without complications; Z79.4 - halfway (current) use of insulin (3) Gout Chronicity: chronic Gout etiology: due to renal impairment Gout site: multiple sites Presence of tophus: with tophus Qualified Code(s): M1A.39X1 - Chronic gout due to renal impairment, multiple sites, with tophus (tophi) (4) Coronary artery disease Associated angina: without angina Coronary Disease-Associated Artery/Lesion type: [place] artery [place] vs. transplanted heart: [place] heart Qualified Code(s): I25.10 - Atherosclerotic heart disease of [place] coronary artery without angina pectoris (5) Hypothyroidism Hypothyroidism type: unspecified Qualified Code(s): E03.9 - Hypothyroidism, unspecified (6) HTN (hypertension) Hypertension type: essential hypertension Qualified Code(s): I10 - Essential (primary) hypertension
[2020-05-16] MEDS: LEVOTHYROXINE SODIUM 25 MCG TABLET PO SCH (05:43)
[2020-05-16] MEDS: busPIRone 15 MG TAB PO SCH ×2 (09:18→20:31)
[2020-05-16] MEDS: CLOPIDOGREL BISULFATE 75 MG TAB PO SCH (09:18)
[2020-05-16] MEDS: FAMOTIDINE 20 MG TAB PO SCH ×2 (09:18→20:32)
[2020-05-16] MEDS: INSULIN GLARGINE SOLOSTAR 100 UNITS/ML 3 ML PEN SC SCH (09:18)
[2020-05-16] MEDS: ASCORBIC ACID 500 MG TAB PO SCH (09:20)
[2020-05-16] MEDS: FEXOFENADINE HCL 180 MG TAB PO SCH (09:20)
[2020-05-16] MEDS: SENNA 8.6 MG TAB PO SCH (09:20)
[2020-05-16] MEDS: allopurinoL 100 MG TAB PO SCH (09:20)
[2020-05-16] MEDS: predniSONE 5 MG TAB PO SCH (09:20)
[2020-05-16] MEDS: MULTIVITAMIN TAB PO SCH (09:21)
[2020-05-16] MEDS: METOPROLOL TARTRATE 50 MG TAB PO SCH ×2 (09:21→20:30)
[2020-05-16] MEDS: INSULIN ASPART 100 UNITS/ML 3 ML PEN SC SCH ×4 (09:21→20:39)
[2020-05-16] MEDS: PREGABALIN 100 MG CAP PO SCH ×2 (10:45→20:41)
--- NOTE | 2020-05-16 18:11 | Hospitalist Progress Note ---
Date of Service May 16, 2020 Assessment & Plan (1) Acute on chronic diastolic heart failure: BNP elevated to 10,500. - Heart healthy, low-sodium diet, fluid restrict 1500 mL - Seems essentially euvolemic today. (2) Encephalopathy acute: Waxing and waning. It appears to have resolved however patient was very agitated on 05/15 in regards to discharge plan. She may improve with being home, however CM discussed with home health who states that pt does act unusual at home at times, sometimes refusing her medications. There does appear to be some underlying dementia. Will recommend followup with Neuro as outpatient. May need to consider a psych eval. May also be having acute adjustment reaction given so many recent life changes CBC, CMP, TSH, B12/folate (MCV elevated to 100), UA pending t/c CT head, not urgent and granddaughter states that pt will likely refuse if family is not here when it is done Explained that it would not be done until late tonight given it is not urgent and ED is quite busy--granddaughter agrees to wait until labs are complete and potentially order tomorrow (3) Dysphagia: Progressively worsening dysphagia over the last year. Associated weight loss. Prior history of esophageal stenosis. Soft easy to chew diet here to see how she tolerates food and taking her medication. - Consulted GI -> Plan for barium swallow and/or EGD. - Barium swallow completed/ EGD completed -appreciate input from GI nutrition. t/c ST eval (4) Diarrhea: Ongoing for the last week. CT a/p on 05/08 without acute issues. - Monitor BMs here. - No diarrhea noted so far on nursing records or per patient. (5) Suprapubic pain: Lower abdominal pain on exam. Not previously mentioned on prior exams however unclear how acute this is per patient. - No further mention of pain in later exams - Prior with a few WBCs, but no bacteria and also with significant contamination from epithelial cells. Cx not done, no abx given UA pending (6) Right flank pain: Notably had a CT in January from her PCP which mentions symptoms of flank pain and hematuria. Unclear if this was the same side but the patient does report she has had pain in this area in the past. - Work-up as above generally negative and symptoms not mentioned prior (7) Dizziness: Patient describes vertigo, disequilibrium, and presyncope. No episodes of syncope. Progressively worse over the last 2 weeks but possibly going on for longer than a year. - Patient up and walking with PT. No further dizziness reported. (8) Elevated troponin: No acute chest pain or shortness of breath to suggest ACS. Likely demand ischemia. - Troponins stable at ~0.07 to 0.1. (9) Coronary artery disease: S/p remote multivessel stenting and RCA AWILDA x2 (06/2018). - Continue clopidogrel, metoprolol - Intolerant to statins. (10) Paroxysmal A-fib: Currently has P waves on EKG. Multiple paroxysmal episodes on recent pacemaker check. - Continue apixaban - Continue rate control with metoprolol tartrate 50 mg p.o. every morning, 25 mg every afternoon (11) HTN (hypertension): BP presently 150/75. - Continue metoprolol at current dose. (12) Chronic kidney disease, stage 4 (severe): Baseline Cr ~2.0. - Only 1 dose of Lasix on 05/11. - Cr improved to 1.95. Will hold further Lasix until tomorro's labs are back. (13) Diabetes: HbA1c was 8.7% this admission. - Hold her home insulin regimen at the current time (total daily dose 109 units) - Due to her dysphagia she is likely eating less and her carbohydrate intake would likely be less in hospital there for decrease total dose: - Lantus 20 units twice daily, NovoLog sliding scale - Generally good at present. (14) Peripheral neuropathy: Suspect secondary to diabetes. - Continue Lyrica 200 mg p.o. twice daily (15) Sleep apnea: Patient on BiPAP at home. Home equipment (16) Hypothyroidism: TSH was 1.7 in 01/2020. No signs/symptoms of hypo-/hyperthyroidism. - Continue levothyroxine 25 mcg p.o. daily. (17) Gout: Recently diagnosed chronic gout earlier this year. No current exacerbation. - Continue allopurinol 100 mg p.o. every morning, prednisone 5 mg p.o. daily. (18) DVT prophylaxis: Apixaban as above Admission and Anticipated Discharge Date Admission Date: May 08, 2020 Subjective Pt seen earlier today without family present. 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 She is very frustrated about the potential plans for rehab as she feels like her is "giving up on me". She does agree that she is not strong enough to go home, but doesn't want to be from him. She states that they "gave up their house" and moved recently, which was hard for her. She states that she has an aging pug who she misses and is afraid will pass away while she is in rehab. She also states she is frustrated with her current health status. She states she is eating without issue. Pt denies fever, SOB, chest pain, abd pain, n/v/c/d, LE pain or swelling. Called later this evening by pt's granddaughter who is concerned that pt may have had a head bleed after a fall several weeks ago. She states that her grandmother "isn't herself, but she is fine today". Granddaughter is requesting an MRI. I did ask what specifically is different with pt and she cites the episode yesterday in which pt was upset with her regarding possible rehab placement. She states that pt is intermittently "not with it", but will be fine other times. She states that they do not want pt to make a decision about her d/c status because they don't feel she is capable of being realistic. Granddaughter states her main reason for wanting to go home is her dog. Review of Systems Review of Systems: Pertinent positives and negatives reviewed in HPI--all others negative Physical Exam Constitutional: WD/WN, vitals as above Eyes: normal visual [place] by confrontation and + anicteric sclerae Neck: normal visual inspection and trachea midline Respiratory: normal respiratory effort, lungs clear to auscultation Cardiovascular: Rate/Rhythm: regular rate and regular rhythm Gastrointestinal (Abdomen): Inspection/Auscultation: abdomen not distended Percussion/Palpation: abdomen soft; abdomen nontender Musculoskeletal: Head/Neck/Chest: normocephalic and head atraumatic negative for edema, peripheral pulses intact Skin: no rashes, warm and dry Neurologic: awake; not confused Speech / Cognition: normal speech Psychiatric: Orientation: oriented x 3 and cooperative Speech: normal rate/rhythm/volume of speech Affect: + tearful affect (at times) Results & Data Results & Data ([facility]) Vital Signs (Past 12 Hours) Vital Signs Temp Pulse Pulse Resp BP Pulse Ox 05/16/20 14:51 36.5 C 72 16 114/53 L 95 05/16/20 14:20 71 05/16/20 11:39 36.6 C 70 16 133/76 99 05/16/20 07:26 36.1 C L 70 16 130/70 97 05/16/20 07:00 70 PG Care Time/CCT Total # of Minutes Spent Total Time Spent with Patient: Total time spent is greater than 50% in coordination of care (as documented) at patient's floor/unit and/or counseling patient: Coding Level of Care Code 99065 Subseq Hosp Care Lvl 3 Diagnoses Acute on chronic diastolic heart failure I50.33 Encephalopathy acute G93.40 Dysphagia R13.10 Diarrhea R19.7 Suprapubic pain R10.2 Right flank pain R10.9 Dizziness R42 Elevated troponin R79.89 Coronary artery disease I25.10 Coronary Disease-Associated Artery/Lesion type: [place] artery [place] vs. transplanted heart: [place] heart Associated angina: without angina Paroxysmal A-fib I48.0 HTN (hypertension) I10 Hypertension type: essential hypertension Chronic kidney disease, stage 4 (severe) N18.4 Diabetes E11.9; Z79.4 Diabetes mellitus type: type 2 Diabetes mellitus penitentiary insulin use: with penitentiary use Diabetes mellitus complication status: without complication Peripheral neuropathy G62.9 Sleep apnea G47.33 Sleep apnea type: obstructive Hypothyroidism E03.9 Hypothyroidism type: unspecified Gout M1A.39X1 Gout site: multiple sites Gout etiology: due to renal impairment Chronicity: chronic Presence of tophus: with tophus DVT prophylaxis Z29.9 (1) Coronary artery disease Coronary Disease-Associated Artery/Lesion type: [place] artery [place] vs. transplanted heart: [place] heart Associated angina: without angina Qualified Code(s): I25.10 - Atherosclerotic heart disease of [place] coronary artery without angina pectoris (2) HTN (hypertension) Hypertension type: essential hypertension Qualified Code(s): I10 - Essential (primary) hypertension (3) Diabetes Diabetes mellitus type: type 2 Diabetes mellitus penitentiary insulin use: with penitentiary use Diabetes mellitus complication status: without complication Qualified Code(s): E11.9 - Type 2 diabetes mellitus without complications; Z79.4 - MCFP (current) use of insulin (4) Sleep apnea Sleep apnea type: obstructive Qualified Code(s): G47.33 - Obstructive sleep apnea (adult) (pediatric) (5) Hypothyroidism Hypothyroidism type: unspecified Qualified Code(s): E03.9 - Hypothyroidism, unspecified (6) Gout Gout site: multiple sites Gout etiology: due to renal impairment Chronicity: chronic Presence of tophus: with tophus Qualified Code(s): M1A.39X1 - Chronic gout due to renal impairment, multiple sites, with tophus (tophi)
[2020-05-16] MEDS: HEPARIN 100 UNIT/ML 5ML FLUSH FLUSH PRN (18:23)
[2020-05-16 18:55] LABS: Albumin Level 2.7 gm/dl (3.4-5.0); BUN Creatinine Ratio 39.7 (10-20); Bilirubin Direct 0.3 mg/dl (0-0.2); Calcium 9.2 mg/dl (8.5-10.1); Creatinine Clr Calc Pharmacy 24.7 ml/min; Est GFR (African American) 29.7; Est GFR (Non-African American) 25.6; Magnesium 2.3 mg/dl (1.8-2.4)
[2020-05-16 19:05] LABS: Folate (Folic Acid) > 24.00 ng/ml (>5.38); Vitamin B12 1296 pg/ml (211-911)
[2020-05-16 19:06] LABS: Bilirubin,Total 0.9 mg/dl (0.2-1); Phosphorus 4.5 mg/dl (2.5-4.9); Thyroid Stimulating Hormone 1.1 uIu/ml (0.300-4.500)
[2020-05-16 19:32] LABS: Hematocrit (blood only) 38.4 % (37-47); Hemoglobin 11.1 g/dL (12.0-16.0); Mean Corpuscular Hemoglobin 29.4 pg (25-34); Mean Corpuscular Hgb Conc 28.9 g/dL (32-36); Mean Corpuscular Volume 101.6 fL (80-100); RDW Coefficient of Variation 18.5 % (11.5-14.5); RDW Standard Deviation 68.9 fL (36.4-46.3); Red Blood Count 3.78 M/uL (4.2-5.4)
[2020-05-16 19:37] LABS: Mean Platelet Volume 12.7 fL (7.4-10.4); Nucleated RBC # (auto) 0.04 K/uL (0-0); Nucleated RBC % (auto) 0.9 %; Platelet Count 110 K/uL (130-400)
[2020-05-16 19:38] LABS: Basophilic Stippling Occasional; Basophils # (auto) 0.02 K/uL (0-0.2); Basophils % (auto) 0.5 %; Eosinophils # (auto) 0.05 K/uL (0-0.5); Eosinophils % (auto) 1.2 %; Immature Granulocytes # (auto) 0.11 K/uL (0.00-0.02); Immature Granulocytes % (auto) 2.7 %; Lymphocytes # (auto) 0.47 K/uL (1.2-3.4); Lymphocytes % (auto) 11.5 %; Monocytes # (auto) 0.32 K/uL (0.11-0.59); Monocytes % (auto) 7.8 %; Neutrophils # (auto) 3.13 K/uL (1.4-6.5); Neutrophils % (auto) 76.3 %; Platelet Estimate Decreased (Normal); Polychromasia 1+
[2020-05-17] MEDS: LEVOTHYROXINE SODIUM 25 MCG TABLET PO SCH (06:09)
[2020-05-17 07:01] LABS: Appearance Urine Clear (Clear); Bacteria Urine Automated Negative (Negative); Bilirubin Urine Negative (Negative); Blood Urine Negative (Negative); Color Urine Yellow; Epithelial Cell Urine Auto 20-30 /lpf (0-5); Glucose Urine UA Negative (Negative); Ketones Urine Negative (Negative); Leukocyte Esterase Urine 1+ (Negative); Nitrite Urine Negative (Negative); Protein Urine Trace (Negative); RBC Urine Automated 0-4 /hpf (0-4); Specific Gravity Urine 1.022 (1.000-1.030); Urobilinogen Urine Negative (Negative)
[2020-05-17] MEDS: busPIRone 15 MG TAB PO SCH ×2 (09:05→21:45)
[2020-05-17] MEDS: METOPROLOL TARTRATE 50 MG TAB PO SCH ×2 (09:05→21:47)
[2020-05-17] MEDS: FEXOFENADINE HCL 180 MG TAB PO SCH (09:06)
[2020-05-17] MEDS: ASCORBIC ACID 500 MG TAB PO SCH (09:06)
[2020-05-17] MEDS: SENNA 8.6 MG TAB PO SCH (09:06)
[2020-05-17] MEDS: MULTIVITAMIN TAB PO SCH (09:06)
[2020-05-17] MEDS: CLOPIDOGREL BISULFATE 75 MG TAB PO SCH (09:06)
[2020-05-17] MEDS: FAMOTIDINE 20 MG TAB PO SCH ×2 (09:07→21:47)
[2020-05-17] MEDS: allopurinoL 100 MG TAB PO SCH (09:07)
[2020-05-17] MEDS: predniSONE 5 MG TAB PO SCH (09:07)
[2020-05-17] MEDS: INSULIN GLARGINE SOLOSTAR 100 UNITS/ML 3 ML PEN SC SCH (09:08)
[2020-05-17] MEDS: INSULIN ASPART 100 UNITS/ML 3 ML PEN SC SCH ×4 (09:09→21:45)
[2020-05-17] MEDS: PREGABALIN 100 MG CAP PO SCH ×2 (09:22→21:55)
--- NOTE | 2020-05-17 12:09 | CT Scan Report ---
CT OF THE HEAD WITHOUT CONTRAST CLINICAL HISTORY: Altered mental status. COMPARISON STUDY: Head CT February 06, 2020. CT DOSE: 921.40 mGy.cm TECHNIQUE: Helical axial images of the head were obtained without IV contrast. Automated exposure con trol was utilized for the study. A dose lowering technique was utilized adhering to the principles o f ALARA. FINDINGS: This study is mildly compromised by motion artifact. A right-sided craniotomy is noted. Ext raaxial hyperdensity, measuring 3 mm in thickness, within the operative bed is unchanged from earlier exams. This represents postsurgical change. The ventricular system is normal. The basilar cisterns a re patent. Prominence of the bilateral extra-axial spaces is unchanged. This is chronic. No acute int racranial hemorrhage, midline shift or mass effect is present. Bilateral basal ganglia calcification is noted. There are no findings to suggest acute dural sinus thrombosis or acute territorial infarct. There is no calvarial fracture. IMPRESSION: 1. No acute intracranial findings. No change in appearance of the brain. Stable postoperative finding s following right craniotomy. 2. Exam mildly compromised by motion artifact. ACT 112: Negative or not required by law. Electronically signed by: Jose Mcgregor M.D. 05/17/2020 12:08 PM
--- NOTE | 2020-05-17 21:43 | Hospitalist Progress Note ---
Date of Service May 17, 2020 Assessment & Plan (1) Acute on chronic diastolic heart failure: BNP elevated to 10,500. - Heart healthy, low-sodium diet, fluid restrict 1500 mL - Seems essentially euvolemic today. (2) Encephalopathy acute: Waxing and waning. It appears to have resolved however patient was very agitated on 05/15 in regards to discharge plan. She may improve with being home, however CM discussed with home health who states that pt does act unusual at home at times, sometimes refusing her medications. There does appear to be some underlying dementia. Will recommend followup with Neuro as outpatient. May need to consider a psych eval. May also be having acute adjustment reaction given so many recent life changes CBC, CMP, TSH, B12/folate (MCV elevated to 100) all WNL UA again noted for trace leuk est, neg nitrites Urine cx ordered last night and not completed, again today and not completed. Pending cx CT head neg for acute (3) Dysphagia: Progressively worsening dysphagia over the last year. Associated weight loss. Prior history of esophageal stenosis. Soft easy to chew diet here to see how she tolerates food and taking her medication. - Consulted GI -> Plan for barium swallow and/or EGD. - Barium swallow completed/ EGD completed -appreciate input from GI nutrition. t/c ST eval (4) Diarrhea: Ongoing for the last week. CT a/p on 05/08 without acute issues. - Monitor BMs here. - No diarrhea noted so far on nursing records or per patient. (5) Suprapubic pain: Lower abdominal pain on exam. Not previously mentioned on prior exams however unclear how acute this is per patient. - No further mention of pain in later exams - Prior with a few WBCs, but no bacteria and also with significant contamination from epithelial cells. Cx not done, no abx given eval as above (6) Right flank pain: Notably had a CT in January from her PCP which mentions symptoms of flank pain and hematuria. Unclear if this was the same side but the patient does report she has had pain in this area in the past. - Work-up as above generally negative and symptoms not mentioned prior (7) Dizziness: Patient describes vertigo, disequilibrium, and presyncope. No episodes of syncope. Progressively worse over the last 2 weeks but possibly going on for longer than a year. - Patient up and walking with PT. No further dizziness reported. (8) Elevated troponin: No acute chest pain or shortness of breath to suggest ACS. Likely demand ischemia. - Troponins stable at ~0.07 to 0.1. (9) Coronary artery disease: S/p remote multivessel stenting and RCA AWILDA x2 (06/2018). - Continue clopidogrel, metoprolol - Intolerant to statins. (10) Paroxysmal A-fib: Currently has P waves on EKG. Multiple paroxysmal episodes on recent pacemaker check. Pt's eliquis had been restarted on admission, however held starting 05/10 in anticipation of likely EGD Restart 05/17 - Continue rate control with metoprolol tartrate 50 mg p.o. every morning, 25 mg every afternoon (11) HTN (hypertension): BP presently 150/75. - Continue metoprolol at current dose. (12) Chronic kidney disease, stage 4 (severe): Baseline Cr ~2.0. - Only 1 dose of Lasix on 05/11. - Cr improved to 1.95. Will hold further Lasix until tomorro's labs are back. (13) Diabetes: HbA1c was 8.7% this admission. - Hold her home insulin regimen at the current time (total daily dose 109 units) - Due to her dysphagia she is likely eating less and her carbohydrate intake would likely be less in hospital there for decrease total dose: - Lantus 20 units twice daily, NovoLog sliding scale - Generally good at present. (14) Peripheral neuropathy: Suspect secondary to diabetes. - Continue Lyrica 200 mg p.o. twice daily (15) Sleep apnea: Patient on BiPAP at home. Home equipment (16) Hypothyroidism: TSH was 1.7 in 01/2020. No signs/symptoms of hypo-/hyperthyroidism. - Continue levothyroxine 25 mcg p.o. daily. (17) Gout: Recently diagnosed chronic gout earlier this year. No current exacerba tion. - Continue allopurinol 100 mg p.o. every morning, prednisone 5 mg p.o. daily. (18) DVT prophylaxis: Apixaban as above Admission and Anticipated Discharge Date Admission Date: May 08, 2020 Subjective is present today. He is concerned as pt is "confused like she gets sometimes at home". He states this is how she is with UTI often. He does agree that she was her usual self yesterday. Pt states she feels tired overall. She denies feeling confused. Ate without issue. Pt denies fever, SOB, chest pain, abd pain, n/v/c/d, LE pain or swelling. notes that pt is supposed to be taking eliquis 5mg BID, but that she was not taking it [employer]TE[employer] for some time. He states he is unsure how long as she takes care of her own meds generally. Review of Systems Review of Systems: Pertinent positives and negatives reviewed in HPI--all others negative Physical Exam Constitutional: WD/WN, vitals as above Eyes: normal visual [place] by confrontation and + anicteric sclerae Neck: normal visual inspection and trachea midline Respiratory: normal respiratory effort, lungs clear to auscultation Cardiovascular: Rate/Rhythm: regular rate and regular rhythm Gastrointestinal (Abdomen): Inspection/Auscultation: abdomen not distended Percussion/Palpation: abdomen soft; abdomen nontender Musculoskeletal: Head/Neck/Chest: normocephalic and head atraumatic Skin: no rashes, warm and dry Neurologic: awake and + confused Speech / Cognition: normal speech Pt is lying in bed with her arm over her eyes today. She does answer most questions with apporpriate responses, including person, place, date. At times she states concerns about situations that are not occurring at present or that is unsure as to what event she is referencing. Psychiatric: Orientation: oriented x 3 and cooperative Speech: normal rate/rhythm/volume of speech Results & Data Results & [facility] ([facility]) Vital Signs (Past 12 Hours) Vital Signs Temp Pulse Pulse Pulse Resp BP Pulse Ox 05/17/20 19:05 36.5 C 65 18 165/90 H 98 05/17/20 15:16 36.9 C 76 18 124/72 97 05/17/20 14:20 70 05/17/20 12:00 36.4 C L 73 18 151/72 H 96 PG Care Time/CCT Total # of Minutes Spent Total Time Spent with Patient: Total time spent is greater than 50% in coordination of care (as documented) at patient's floor/unit and/or counseling patient: Coding Level of Care Code 43743 Subseq Hosp Care Lvl 3 Diagnoses Acute on chronic diastolic heart failure I50.33 Encephalopathy acute G93.40 Dysphagia R13.10 Diarrhea R19.7 Suprapubic pain R10.2 Right flank pain R10.9 Dizziness R42 Elevated troponin R79.89 Coronary artery disease I25.10 Coronary Disease-Associated Artery/Lesion type: [place] artery [place] vs. transplanted heart: [place] heart Associated angina: without angina Paroxysmal A-fib I48.0 HTN (hypertension) I10 Hypertension type: essential hypertension Chronic kidney disease, stage 4 (severe) N18.4 Diabetes E11.9; Z79.4 Diabetes mellitus type: type 2 Diabetes mellitus group home insulin use: with group home use Diabetes mellitus complication status: without complication Peripheral neuropathy G62.9 Sleep apnea G47.33 Sleep apnea type: obstructive Hypothyroidism E03.9 Hypothyroidism type: unspecified Gout M1A.39X1 Gout site: multiple sites Gout etiology: due to renal impairment Chronicity: chronic Presence of tophus: with tophus DVT prophylaxis Z29.9 (1) Coronary artery disease Coronary Disease-Associated Artery/Lesion type: [place] artery [place] vs. transplanted heart: [place] heart Associated angina: without angina Qualified Code(s): I25.10 - Atherosclerotic heart disease of [place] coronary artery without angina pectoris (2) HTN (hypertension) Hypertension type: essential hypertension Qualified Code(s): I10 - Essential (primary) hypertension (3) Diabetes Diabetes mellitus type: type 2 Diabetes mellitus group home insulin use: with [place] use Diabetes mellitus complication status: without complication Qualified Code(s): E11.9 - Type 2 diabetes mellitus without complications; Z79.4 - care home (current) use of insulin (4) Sleep apnea Sleep apnea type: obstructive Qualified Code(s): G47.33 - Obstructive sleep apnea (adult) (pediatric) (5) Hypothyroidism Hypothyroidism type: unspecified Qualified Code(s): E03.9 - Hypothyroidism, unspecified (6) Gout Gout site: multiple sites Gout etiology: due to renal impairment Chronicity: chronic Presence of tophus: with tophus Qualified Code(s): M1A.39X1 - Chronic gout due to renal impairment, multiple sites, with tophus (tophi)
[2020-05-17] MEDS: APIXABAN 5 MG TABLET PO SCH (21:46)
[2020-05-18] MEDS: LEVOTHYROXINE SODIUM 25 MCG TABLET PO SCH (05:39)
--- NOTE | 2020-05-18 06:22 | Communication Note ---
Date of Service: May 18, 2020 Notified overnight that pt had an "assisted" fall while attempting to give a urine sample in the bathroom. Of note pt is currently on Eliquis and Plavix. On exam, she seemed to be at baseline. AAO to person, place and knew the year. Was able to move upper extremities without difficulty while laying in bed. She was actively hallucinating stating she saw a little girl in the ceiling with blonde hair. Noted workup for encephalopathy. Consider drawing labs today? 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
[2020-05-18] MEDS: CLOPIDOGREL BISULFATE 75 MG TAB PO SCH (08:50)
[2020-05-18] MEDS: FAMOTIDINE 20 MG TAB PO SCH ×2 (08:50→21:33)
[2020-05-18] MEDS: ASCORBIC ACID 500 MG TAB PO SCH (08:50)
[2020-05-18] MEDS: SENNA 8.6 MG TAB PO SCH (08:50)
[2020-05-18] MEDS: METOPROLOL TARTRATE 50 MG TAB PO SCH ×2 (08:51→21:35)
[2020-05-18] MEDS: FEXOFENADINE HCL 180 MG TAB PO SCH (08:51)
[2020-05-18] MEDS: busPIRone 15 MG TAB PO SCH ×2 (08:51→21:33)
[2020-05-18] MEDS: INSULIN GLARGINE SOLOSTAR 100 UNITS/ML 3 ML PEN SC SCH (08:51)
[2020-05-18] MEDS: allopurinoL 100 MG TAB PO SCH (08:51)
[2020-05-18] MEDS: INSULIN ASPART 100 UNITS/ML 3 ML PEN SC SCH ×4 (08:51→21:36)
[2020-05-18] MEDS: predniSONE 5 MG TAB PO SCH (08:51)
[2020-05-18] MEDS: APIXABAN 5 MG TABLET PO SCH ×2 (08:52→21:32)
[2020-05-18] MEDS: PREGABALIN 100 MG CAP PO SCH ×2 (10:51→21:33)
[2020-05-18] MEDS ORDERED: PIPERACILL/TAZOBAC CONSULT ACTIVE PRN (11:08)
[2020-05-18] MEDS ORDERED: PIPERACILLIN/TAZOBACTAM 3.375 GM in DEXTROSE 5% 100 ML IV ONE (12:00)
[2020-05-18] MEDS: MULTIVITAMIN TAB PO SCH (12:24)
[2020-05-18] MEDS: HEPARIN 100 UNIT/ML 5ML FLUSH FLUSH PRN ×2 (12:26→21:13)
--- NOTE | 2020-05-18 15:07 | Hospitalist Progress Note ---
Date of Service May 18, 2020 Assessment & Plan (1) Acute on chronic diastolic heart failure: BNP elevated to 10,500. - Heart healthy, low-sodium diet, fluid restrict 1500 mL - Seems essentially euvolemic today. (2) Encephalopathy acute: Waxing and waning. It appears to have resolved however patient was very agitated on 05/15 in regards to discharge plan. She may improve with being home, however CM discussed with home health who states that pt does act unusual at home at times, sometimes refusing her medications. There does appear to be some underlying dementia. Will recommend followup with Neuro as outpatient. May need to consider a psych vs neuro eval. May also be having acute adjustment reaction given so many recent life changes CBC, CMP, TSH, B12/folate (MCV elevated to 100) all WNL UA again noted for trace leuk est, neg nitrites urine cx pending CT head neg for acute It is not completely clear why pt's mentation keeps waxing and waning. I have been waiting on a urine cx since Tuesday evening, however there have been collection issues. It has been sent this AM Given 's statement that this seems similar to UTI, will start zosyn today while awaiting cx Also concern that pt is experiencing hypoventilation syndrome due to noncompliance with BIPAP. She has only worn it one night during admission as she takes it off or refuses to wear it. Nursing attempting to have pt wear it today as she has been sleeping during the morning, but pt will not allow it (3) Dysphagia: Progressively worsening dysphagia over the last year. Associated weight loss. Prior history of esophageal stenosis. Soft easy to chew diet here to see how she tolerates food and taking her medication. - Consulted GI -> Plan for barium swallow and/or EGD. - Barium swallow completed/ EGD completed -appreciate input from GI nutrition. t/c ST eval (4) Diarrhea: Ongoing for the last week. CT a/p on 05/08 without acute issues. - Monitor BMs here. - No diarrhea noted so far on nursing records or per patient. (5) Suprapubic pain: Lower abdominal pain on exam. Not previously mentioned on prior exams however unclear how acute this is per patient. - No further mention of pain in later exams - Prior with a few WBCs, but no bacteria and also with significant contamination from epithelial cells. Cx not done, no abx given eval as above (6) Right flank pain: Notably had a CT in January from her PCP which mentions symptoms of flank pa in and hematuria. Unclear if this was the same side but the patient does report she has had pain in this area in the past. - Work-up as above generally negative and symptoms not mentioned prior (7) Dizziness: Patient describes vertigo, disequilibrium, and presyncope. No episodes of syncope. Progressively worse over the last 2 weeks but possibly going on for longer than a year. - Patient up and walking with PT. No further dizziness reported. (8) Elevated troponin: No acute chest pain or shortness of breath to suggest ACS. Likely demand ischemia. - Troponins stable at ~0.07 to 0.1. (9) Coronary artery disease: S/p remote multivessel stenting and RCA AWILDA x2 (06/2018). - Continue clopidogrel, metoprolol - Intolerant to statins. (10) Paroxysmal A-fib: Currently has P waves on EKG. Multiple paroxysmal episodes on recent pacemaker check. Pt's eliquis had been restarted on admission, however held starting 05/10 in anticipation of likely EGD Restart 05/17 - Continue rate control with metoprolol tartrate 50 mg p.o. every morning, 25 mg every afternoon (11) HTN (hypertension): BP presently 150/75. - Continue metoprolol at current dose. (12) Chronic kidney disease, stage 4 (severe): Baseline Cr ~2.0. - Only 1 dose of Lasix on 05/11. - Cr improved to 1.95 (13) Diabetes: HbA1c was 8.7% this admission. - Hold her home insulin regimen at the current time (total daily dose 109 units) - Due to her dysphagia she is likely eating less and her carbohydrate intake would likely be less in hospital there for decrease total dose: - Lantus 20 units twice daily, NovoLog sliding scale - Generally good at present. (14) Peripheral neuropathy: Suspect secondary to diabetes. - Continue Lyrica 200 mg p.o. twice daily (15) Sleep apnea: Patient on BiPAP at home. Home equipment (16) Hypothyroidism: TSH was 1.7 in 01/2020. No signs/symptoms of hypo-/hyperthyroidism. - Continue levothyroxine 25 mcg p.o. daily. (17) Gout: Recently diagnosed chronic gout earlier this year. No current exacerbation. - Continue allopurinol 100 mg p.o. every morning, prednisone 5 mg p.o. daily. (18) DVT prophylaxis: Apixaban as above Admission and Anticipated Discharge Date Admission Date: May 08, 2020 Subjective is present. States she seems confused at times again today, but is also answering questions appropriately at other times. Pt did fall early this AM while in the bathroom with staff. She ate a bit of breakfast. No specific complaints to or nursing. Pt denies fever, SOB, chest pain, abd pain, n/v/c/d, LE pain or swelling. states that this seems similar to her AMS that occurs with UTI. Nursing reports that pt will not leave her BIPAP on at night. states she does use it at home. He has not brought pt's home set up in. Review of Systems Review of Systems: Pertinent positives and negatives reviewed in HPI--all others negative Physical Exam Constitutional: WD/WN, vitals as above Eyes: normal visual [place] by confrontation and + anicteric sclerae Neck: normal visual inspection and trachea midline Respiratory: normal respiratory effort, lungs clear to auscultation Cardiovascular: Rate/Rhythm: regular rate and regular rhythm Gastrointestinal (Abdomen): Inspection/Auscultation: abdomen not distended Percussion/Palpation: abdomen soft; abdomen nontender Musculoskeletal: Head/Neck/Chest: normocephalic and head atraumatic Skin: no rashes, warm and dry Neurologic: awake and + confused Speech / Cognition: normal speech Psychiatric: Orientation: oriented x 3 and cooperative Speech: normal rate/rhythm/volume of speech Results & Data Results & Data ([facility]) Vital Signs (Past 12 Hours) Vital Signs Temp Pulse Pulse Resp BP Pulse Ox 05/18/20 11:39 80 22 93 05/18/20 11:38 36.6 C 69 20 146/78 H 97 05/18/20 07:00 36.4 C L 70 71 20 148/78 H 96 PG Care Time/CCT Total # of Minutes Spent Total Time Spent with Patient: Total time spent is greater than 50% in coordination of care (as documented) at patient's floor/unit and/or counseling patient: Coding Level of Care Code 09313 Subseq Hosp Care Lvl 3 Diagnoses Acute on chronic diastolic heart failure I50.33 Encephalopathy acute G93.40 Dysphagia R13.10 Diarrhea R19.7 Suprapubic pain R10.2 Right flank pain R10.9 Dizziness R42 Elevated troponin R79.89 Coronary artery disease I25.10 Coronary Disease-Associated Artery/Lesion type: [place] artery [place] vs. transplanted heart: [place] heart Associated angina: without angina Paroxysmal A-fib I48.0 HTN (hypertension) I10 Hypertension type: essential hypertension Chronic kidney disease, stage 4 (severe) N18.4 Diabetes E11.9; Z79.4 Diabetes mellitus type: type 2 Diabetes mellitus nursing home insulin use: with nursing home use Diabetes mellitus complication status: without complication Peripheral neuropathy G62.9 Sleep apnea G47.33 Sleep apnea type: obstructive Hypothyroidism E03.9 Hypothyroidism type: unspecified Gout M1A.39X1 Gout site: multiple sites Gout etiology: due to renal impairment Chronicity: chronic Presence of tophus: with tophus DVT prophylaxis Z29.9 (1) Coronary artery disease Coronary Disease-Associated Artery/Lesion type: [place] artery [place] vs. transplanted heart: [place] heart Associated angina: without angina Qualified Code(s): I25.10 - Atherosclerotic heart disease of [place] coronary artery without angina pectoris (2) HTN (hypertension) Hypertension type: essential hypertension Qualified Code(s): I10 - Essential (primary) hypertension (3) Diabetes Diabetes mellitus type: type 2 Diabetes mellitus nursing home insulin use: with terminal superintendent use Diabetes mellitus complication status: without complication Qualified Code(s): E11.9 - Type 2 diabetes mellitus without complications; Z79.4 - detention (current) use of insulin (4) Sleep apnea Sleep apnea type: obstructive Qualified Code(s): G47.33 - Obstructive sleep apnea (adult) (pediatric) (5) Hypothyroidism Hypothyroidism type: unspecified Qualified Code(s): E03.9 - Hypothyroidism, unspecified (6) Gout Gout site: multiple sites Gout etiology: due to renal impairment Chronicity: chronic Presence of tophus: with tophus Qualified Code(s): M1A.39X1 - Chronic gout due to renal impairment, multiple sites, with tophus (tophi)
[2020-05-18] MEDS: PIPERACILLIN/TAZOBACTAM 3.375 GM in DEXTROSE 5% 100 ML IV SCH (17:30)
[2020-05-19] MEDS: PIPERACILLIN/TAZOBACTAM 3.375 GM in DEXTROSE 5% 100 ML IV SCH ×3 (02:21→17:56)
[2020-05-19 05:38] LABS: Base Excess VBG 11.1 mEq/L; Oxygen Saturation VBG 68.3 %; pH VBG 7.37 (7.36-7.41)
[2020-05-19 05:46] LABS: Hematocrit (blood only) 36.4 % (37-47); Hemoglobin 11.1 g/dL (12.0-16.0); Mean Corpuscular Hemoglobin 30.3 pg (25-34); Mean Corpuscular Hgb Conc 30.5 g/dL (32-36); Mean Corpuscular Volume 99.5 fL (80-100); RDW Coefficient of Variation 18.2 % (11.5-14.5); RDW Standard Deviation 66.8 fL (36.4-46.3); Red Blood Count 3.66 M/uL (4.2-5.4); White Blood Count 4.79 K/uL (4.8-10.8)
[2020-05-19 06:11] LABS: Albumin Level 2.7 gm/dl (3.4-5.0); BUN Creatinine Ratio 33.1 (10-20); Bilirubin Direct 0.4 mg/dl (0-0.2); Calcium 9.4 mg/dl (8.5-10.1); Creatinine Clr Calc Pharmacy 24.4 ml/min; Est GFR (African American) 31.5; Est GFR (Non-African American) 27.2; Potassium 4.5 mmol/L (3.5-5.1)
[2020-05-19 06:14] LABS: Albumin Globulin Ratio 0.9 (0.9-2); Globulin 3.1 gm/dl (2.5-4.0); Mean Platelet Volume 11.6 fL (7.4-10.4); Phosphorus 3.4 mg/dl (2.5-4.9); Platelet Count 94 K/uL (130-400); Total Protein 5.8 gm/dl (6.4-8.2)
[2020-05-19 06:15] LABS: Basophils # (auto) 0.02 K/uL (0-0.2); Basophils % (auto) 0.4 %; Eosinophils # (auto) 0.12 K/uL (0-0.5); Eosinophils % (auto) 2.5 %; Immature Granulocytes # (auto) 0.19 K/uL (0.00-0.02); Lymphocytes # (auto) 0.58 K/uL (1.2-3.4); Lymphocytes % (auto) 12.1 %; Monocytes # (auto) 0.45 K/uL (0.11-0.59); Monocytes % (auto) 9.4 %; Neutrophils # (auto) 3.43 K/uL (1.4-6.5); Neutrophils % (auto) 71.6 %
[2020-05-19] MEDS: LEVOTHYROXINE SODIUM 25 MCG TABLET PO SCH (06:18)
[2020-05-19] MEDS: busPIRone 15 MG TAB PO SCH ×2 (08:19→20:53)
[2020-05-19] MEDS: CLOPIDOGREL BISULFATE 75 MG TAB PO SCH (08:19)
[2020-05-19] MEDS: FAMOTIDINE 20 MG TAB PO SCH ×2 (08:19→20:56)
[2020-05-19] MEDS: METOPROLOL TARTRATE 50 MG TAB PO SCH ×2 (08:20→20:54)
[2020-05-19] MEDS: MULTIVITAMIN TAB PO SCH (08:20)
[2020-05-19] MEDS: ASCORBIC ACID 500 MG TAB PO SCH (08:20)
[2020-05-19] MEDS: allopurinoL 100 MG TAB PO SCH (08:20)
[2020-05-19] MEDS: SENNA 8.6 MG TAB PO SCH (08:21)
[2020-05-19] MEDS: predniSONE 5 MG TAB PO SCH (08:21)
[2020-05-19] MEDS: FEXOFENADINE HCL 180 MG TAB PO SCH (08:21)
[2020-05-19] MEDS: APIXABAN 5 MG TABLET PO SCH ×2 (08:21→20:54)
[2020-05-19] MEDS: INSULIN ASPART 100 UNITS/ML 3 ML PEN SC SCH ×4 (08:41→20:55)
[2020-05-19] MEDS: INSULIN GLARGINE SOLOSTAR 100 UNITS/ML 3 ML PEN SC SCH (08:42)
[2020-05-19] MEDS: PREGABALIN 100 MG CAP PO SCH ×2 (08:42→20:55)
--- NOTE | 2020-05-19 12:44 | Hospitalist Progress Note ---
Date of Service May 19, 2020 Assessment & Plan (1) Encephalopathy acute: Etiology for confusion is unclear. A urinary culture is currently pending and patient was empirically started on Zo syn Review of the chart does show that the patient had a previous craniotomy. We will discuss with why patient had a craniotomy She denies any malignancy in the past. Continue to follow metabolic labs. Repeat ABG to look for hypercapnia Continue BiPAP as tolerated (2) History of esophageal stricture: EGD performed this admission with no abnormal findings GI consulted and following Aspiration precautions (3) Acute exacerbation of congestive heart failure: Fluid balance is +5 L per record Not convinced that this is real We will need to check standing weights and follow Home medications include furosemide 40 mg p.o. daily Not receiving any diuretics inpatient We will follow based on clinical examination Most recent echocardiogram is from 12/26/2019 with preserved left ventricular ejection fraction of 50 to 55% and moderately reduced right ventricular systolic function (4) Chronic kidney disease: Baseline creatinine appears to be around 1.8-1.9 Current creatinine level is 1.75 mg/Ashtyn Follow serial labs (5) Coronary artery disease: No chest pain or tightness Continue apixaban, clopidogrel, metoprolol tartrate Echocardiogram from 12/26/2019 as above EKG with ventricular rate of 70 bpm and an AV dual paced rhythm. QTc is 494 ms (6) Sleep apnea: Patient has CPAP at home and states that she is irregular with her use due to agitation Continue CPAP as an inpatient as tolerated (7) Paroxysmal A-fib: Continue apixaban and metoprolol Paced rhythm on EKG (8) DVT prophylaxis: Clopidogrel and apixaban for chemical prophylaxis Out of bed to chair and ambulate as tolerated Admission and Anticipated Discharge Date Admission Date: May 08, [address] Raymundo Lucio This is a 80-year-old female. She was seen at bedside with her present. She presented for admission and when had encephalopathy and has exercised some combativeness. She seems to be doing better at the time of my examination. However, I met with her who said that she has had some episodes of outburst with the staff as well as family members they were visiting. She has a questionable UTI and was started on Zosyn yesterday pending urine culture. She does have some slight hypercapnia and has CPAP prescribed at home. She reports compliance. This is affirmed by her but he does state that oftentimes due to agitation she will take the mask off in her sleep. She is very pleasant at the time of my examination as well as cooperative. She denies any fever or chills. She has no chest pain or tightness. She denies shortness of breath. She has no nausea or vomiting or abdominal pain. She has no trouble with eating. She denies any dysphagia. She is sitting in a bedside chair and appears comfortable. Review of Systems Review of Systems: All systems reviewed & are unremarkable except as noted in Subjective Physical Exam Physical Exam: GENERAL : No acute distress EYES: No icterus, gaze conjugate NOSE: No evidence of epistaxis MOUTH: No lesions or candidiasis NECK: Supple LUNGS: Fine crackles at the bases. No other adventitious breath sounds. HEART: Regular, rate controlled ABDOMEN: Soft, NT, ND, BS Present EXTREMITIES: No LE edema, pedal pulses intact NEURO: A&OX3. Pupils are equal round react light. Tongue is midline. Results & Data Results & Data ([facility]) Vital Signs (Past 12 Hours) Vital Signs Temp Pulse Resp BP BP Pulse Ox 05/19/20 11:06 36.4 C L 76 20 115/71 97 05/19/20 07:01 36.6 C 69 18 175/82 H 97 05/19/20 03:33 36.5 C 70 16 155/82 H 96 Laboratory Results 05/19/20 05:22 05/19/20 05:22 Diagnostic Findings No further diagnostic imaging since 05/17/2020 PG Care Time/CCT Total # of Minutes Spent Total Time Spent with Patient: Total time spent is greater than 50% in coordination of care (as documented) at patient's floor/unit and/or counseling patient: 30 minutes Coding Level of Care Code 86340 Subseq Hosp Care Lvl 2 Diagnoses Encephalopathy acute G93.40 History of esophageal stricture Z87.19 Acute exacerbation of congestive heart failure I50.9 Heart failure type: unspecified Chronic kidney disease N18.9 Chronic kidney disease stage: unspecified stage Coronary artery disease I25.10 Associated angina: without angina Coronary Disease-Associated Artery/Lesion type: [place] artery [place] vs. transplanted heart: [place] heart Sleep apnea G47.33 Sleep apnea type: obstructive Paroxysmal A-fib I48.0 DVT prophylaxis Z29.9 (1) Acute exacerbation of congestive heart failure Heart failure type: unspecified Qualified Code(s): I50.9 - Heart failure, unspecified (2) Sleep apnea Sleep apnea type: obstructive Qualified Code(s): G47.33 - Obstructive sleep apnea (adult) (pediatric) (3) Coronary artery disease Associated angina: without angina Coronary Disease-Associated Artery/Lesion type: [place] artery [place] vs. transplanted heart: [place] heart Qualified Code(s): I25.10 - Atherosclerotic heart disease of [place] coronary artery without angina pectoris (4) Chronic kidney disease Chronic kidney disease stage: unspecified stage Qualified Code(s): N18.9 - Chronic kidney disease, unspecified
[2020-05-20] MEDS: PIPERACILLIN/TAZOBACTAM 3.375 GM in DEXTROSE 5% 100 ML IV SCH ×2 (01:40→11:02)
[2020-05-20] MEDS: LEVOTHYROXINE SODIUM 25 MCG TABLET PO SCH (06:06)
[2020-05-20 07:54] LABS: Allen Test Pos (Pos); Base Excess ABG 11.5 mEq/L (-9-1.8); HCO3 ABG 39 mmol/L (19-24); Oxygen Saturation ABG 97.6 % (90-95); PCO2 ABG 66 mmHg (35-46); PO2 ABG 106 mmHg (80-95); pH ABG 7.38 (7.35-7.45)
[2020-05-20] MEDS: APIXABAN 5 MG TABLET PO SCH (07:54)
[2020-05-20] MEDS: busPIRone 15 MG TAB PO SCH (07:54)
[2020-05-20] MEDS: FEXOFENADINE HCL 180 MG TAB PO SCH (07:55)
[2020-05-20] MEDS: CLOPIDOGREL BISULFATE 75 MG TAB PO SCH (07:55)
[2020-05-20] MEDS: METOPROLOL TARTRATE 50 MG TAB PO SCH (07:55)
[2020-05-20] MEDS: predniSONE 5 MG TAB PO SCH (07:55)
[2020-05-20] MEDS: FAMOTIDINE 20 MG TAB PO SCH (07:55)
[2020-05-20] MEDS: allopurinoL 100 MG TAB PO SCH (07:56)
[2020-05-20] MEDS: ASCORBIC ACID 500 MG TAB PO SCH (07:56)
[2020-05-20] MEDS: MULTIVITAMIN TAB PO SCH (07:56)
[2020-05-20] MEDS: SENNA 8.6 MG TAB PO SCH (07:56)
[2020-05-20 08:20] LABS: Albumin Level 2.6 gm/dl (3.4-5.0); BUN Creatinine Ratio 27.7 (10-20); Bilirubin Direct 0.3 mg/dl (0-0.2); Calcium 9.5 mg/dl (8.5-10.1); Creatinine Clr Calc Pharmacy 23.1 ml/min; Est GFR (African American) 27.5; Est GFR (Non-African American) 23.7; Potassium 4.4 mmol/L (3.5-5.1)
[2020-05-20 08:23] LABS: Bilirubin,Total 0.8 mg/dl (0.2-1); Total Protein 5.8 gm/dl (6.4-8.2)
[2020-05-20] MEDS: INSULIN GLARGINE SOLOSTAR 100 UNITS/ML 3 ML PEN SC SCH (08:28)
[2020-05-20] MEDS: INSULIN ASPART 100 UNITS/ML 3 ML PEN SC SCH ×2 (08:28→13:01)
[2020-05-20] MEDS: PREGABALIN 100 MG CAP PO SCH (11:06)
[2020-05-20] MEDS: HEPARIN 100 UNIT/ML 5ML FLUSH FLUSH PRN (15:44)
--- NOTE | 2020-05-26 08:01 | Discharge Summary ---
Date of Service May 20, 2020 Admission HPI Per Admitting Provider Maureen Hagen is a 80-year-old female who presents to the ER on advice from her PCP office due to shortness of breath with acute on chronic hypoxia. The patient has multiple other complaints and initially is more concerned about her dysphagia which has been getting progressively worse over the last 2 weeks to the point where she is now having difficulty swallowing pills and having associated weight loss. In addition she has been having diarrhea for the last week with associated nausea. For the last 2 weeks she is also been complaining of increased dizziness but is unable to distinguish between disequilibrium, vertigo, presyncope and tells me she has all three. Regards to her shortness of breath, she denies any recent weight gain or increased leg swelling. Shortness of breath is only present on exertion. reports this has been getting progressively worse over the last 2 weeks to 1 year to the point she is now significantly short of breath and dizzy after walking just 10 feet. No episodes of syncope. She has multiple other complaints (see below for review of systems), unclear on timeline of most of these. On review of previous notes the majority of these appear to be chronic other than right flank pain, lower abdominal pain, dysuria. He was hospitalized in December due to multiple joint aches and diagnosed with gout. She was started on prednisone and subsequently allopurinol for uric acid reduction. She reports vast improvement in her joint pain since this was initiated. In the ER chest x-ray concerning for pulmonary edema very similar to previous. BNP/troponin elevated in context of worsening shortness of breath patient was suspected to have congestive heart failure and was referred to medicine for admission. Admission Exam Per Admitting Provider Constitutional: well developed and + obese; + not well nourished, no acute distress and no altered mental status Eyes: + anicteric sclerae; normal pupil size ENMT: external ear and nose normal, oropharynx normal Ears: + unable to visualize TM (right); no TM abnormality (left) Neck: normal visual inspection and trachea midline Respiratory: normal respiratory effort and able to speak in complete sentences; no respiratory distress, no labored breathing, no retractions, does not use accessory muscles and no cough Auscultation: + crackles (Bibasal equal to mid zone of back); no diminished lung sounds, no rales, no rhonchi and no wheezes Cardiovascular: Rate/Rhythm: regular rate and regular rhythm Heart Sounds: no murmur Vessels: no JVD (Difficult to assess due to neck size) Extremities: normal capillary refill and + pedal edema (2+ equal b/l to knees); no calf tenderness Gastrointestinal (Abdomen): Inspection/Auscultation: + abdomen distended (Patient reports at baseline) and + hyperactive bowel sounds Percussion/Palpation: + abdomen tender (lower abdomen) and abdomen soft; no guarding and abdomen not rigid Musculoskeletal: no cyanosis or clubbing, extremities motor strength 5/5 Skin: no rashes, warm and dry Neurologic: moves all extremities and awake; no focal motor deficits and not confused Motor/Sensory: no tremor Cranial Nerves: normal facial strength Psychiatric: A+Ox3, euthymic affect Genitourinary: + CVA tenderness (right sided) Lymphatic: no cervical or axillary lymphadenopathy Principal Diagnosis Diarrhea with suprapubic pain Discharge Exam GENERAL : No acute distress EYES: No icterus, gaze conjugate NOSE: No evidence of epistaxis MOUTH: No lesions or candidiasis NECK: Supple LUNGS: Fine crackles at the bases seem improved from yesterday. No other adventitious breath sounds. HEART: Regular, rate controlled ABDOMEN: Soft, NT, ND, BS Present EXTREMITIES: No LE edema, pedal pulses intact NEURO: A&OX3. Pupils are equal round react light. Tongue is midline. Discharge Data Allergies Allergy/AdvReac Type Severity Reaction Status Date / Time eptifibatide Allergy Severe ANAPHYLAXIS Verified 05/08/20 12:43 hornet venom Allergy Severe WASP VENOM Verified 05/08/20 12:43 PROTEIN-ANAPHYLAXIS levofloxacin [From Levaquin] Allergy Severe Hives Verified 05/08/20 12:43 atorvastatin Allergy Unknown MUSCLE PAIN Verified 05/08/20 12:43 ezetimibe Allergy Unknown MUSCLE PAIN Verified 05/08/20 12:43 simvastatin Allergy Unknown MUSCLE PAIN Verified 05/08/20 12:43 amlodipine AdvReac Severe Nausea Verified 05/08/20 12:43 azithromycin AdvReac Intermediate Palpitation Verified 05/08/20 12:43 s warfarin AdvReac Intermediate EXTREME Verified 05/08/20 12:43 BLEEDING TIMES codeine AdvReac Mild VOMITING Verified 05/08/20 12:43 gemfibrozil AdvReac Mild NAUSEA Verified 05/08/20 12:43 meperidine AdvReac Mild VOMITING Verified 05/08/20 12:43 ondansetron AdvReac Mild vomiting Verified 05/08/20 12:43 ranitidine [From Zantac] AdvReac Mild dyspepsia Verified 05/08/20 12:43 cortisone AdvReac Unknown INCREASES Verified 05/08/20 12:43 SUGAR AND VOMITING? hydralazine AdvReac Unknown VOMITING Verified 05/08/20 12:43 ibuprofen AdvReac Unknown VOMITING Verified 05/08/20 12:43 AND DIARRHEA iodine AdvReac Unknown SHELLFISH Verified 05/08/20 12:43 - VOMITING shellfish derived AdvReac Unknown VOMITING Verified 05/08/20 12:43 Sulfa (Sulfonamide AdvReac Unknown VOMITING Verified 05/08/20 12:43 Antibiotics) Consultations 05/08/20 12:51 ED Decision to Admit Stat 05/08/20 17:58 Consult Gastroenterology Routine 05/13/20 08:25 Consult Anesthesiology Routine Procedures Performed Operation Date: 05/14/20 16:55 Actual Procedures p Esophagogastroduodenoscopy - Alvin Blunt EGD performed by Dr. Blunt 05/14/2020 demonstrated no evidence of mass or stricture. Ordered Studies 05/08/20 14:13 CT abd pelvis wo con Stat 05/12/20 07:00 FL barium swallow Routine 05/17/20 11:22 CT head/brain wo con Urgent Hospital Course (1) Encephalopathy acute: Etiology for confusion is unclear. A urinary culture is currently pending and patient was empirically started on Zosyn * Antibiotics were discontinued as patient's blood cultures x2 as well as urine were negative for bacteria Review of the chart does show that the patient had a previous craniotomy. * This was secondary to subdural hematoma which was [place]. Valle [place] [facility] [place] * Is unclear if this has any worsening which could explain the encephalopathy and confusion * Patient was to follow-up with Dr. Valle as an outpatient. However, she refused MRI * Advised patient to get follow-up MRI and see Dr. Valle for ongoing care Continue BiPAP as tolerated (2) History of esophageal stricture: EGD performed this admission with no abnormal findings GI consulted and following Aspiration precautions (3) Coronary artery disease: No chest pain or tightness Continue apixaban, clopidogrel, metoprolol tartrate Echocardiogram from 12/26/2019 as above EKG with ventricular rate of 70 bpm and an AV dual paced rhythm. QTc is 494 ms (4) Sleep apnea: Patient has CPAP at home and states that she is irregular with her use due to agitation Continue CPAP as an inpatient as tolerated Recommend the patient continue with CPAP If she is claustrophobic or having difficulty with mask comfort, would recommend mask trials through outpatient sleep department Total Time Total Time Spent Total Time Spent (In Minutes): 40 minutes including discussion with Total Time Includes: Examination of the Patient, Discharge Planning, Medication Reconciliation and Communication With Other Providers Discharge Plan Discharge Items Patient Disposition: Transfer Inpatient Rehab Fac Reason For Visit: ACUTE DIASTOLIC CHF Discharge Diagnosis: Acute diastolic congestive heart failure Encephalopathy (confusion) Activity: Resume your previous activity Lifting: Gradually increase as tolerated Bathing: No limitations Exercise/Sports: Gradually increase as tolerated Driving/Machine Use: I would not recommend driving or using heavy machinery until cleared by rehab Weightbearing: Full weightbearing Non-emergency contact: Primary Care Provider Call non-emergency contact if: you have any medication questions and your symptoms worsen Follow-up/Referrals: Lizet Jeter DO [Primary Care Provider] - Diet: Heart Healthy Addtl Attending Provider Instructions: You were admitted with acute congestive heart failure and confusion. The reason for the confusion was unclear. A CT scan of the head was negative. You also did not have any bacteria growing in your blood or in your urine. There was a question about urinary tract infection and you were started on an IV antibiotic. This will be stopped on discharge as there is no growth on the culture. It is noted that you had brain surgery on the CT scan. There is nothing new showing but it is recommended that you get an MRI and follow-up with Dr. Valle. It could be that there are changes that are causing your confusion. We do recommend that you continue with CPAP therapy. A repeat arterial blood gas collected on 05/20/2020 reveals elevated carbon dioxide levels. This can be managed with your CPAP if use for at least 4 hours every night. Elevated carbon dioxide levels will also contribute to periods of confusion. There was a question about difficulty swallowing as well as a history of jose rowing of the esophagus. A barium swallow was completed and showed that there was some hold-up of the barium tablet in the distal portion of the esophagus. You had an EGD (Esophagogastroduodenoscopy) completed by Dr. Blunt. He did not have any abnormalities in the anatomy or in the tissue identified during this procedure. You are being discharged to [facility] for further rehabilitation and should follow-up with your primary care physician on discharge from rehab Pending Studies at Discharge: No Stand-Alone Forms: My [facility] Skilled Items Patient informed of condition?: Yes DNR: Yes Discharge Level of Care: Acute rehab Communicable Disease: No Discharge Prognosis: Improving Lines: None Urinary Catheter: No Medications and DC Order Prescriptions: New metoprolol tartrate 50 mg Tablet 50 mg PO QAM Qty: 30 RF: 0 metoprolol tartrate 50 mg Tablet 25 mg PO PM Qty: 30 RF: 0 Continued nitroglycerin 0.4 mg tablet, sublingual 0.4 mg SL Q5M PRN (Reason: Chest Pain) Qty: 25 RF: 0 allopurinol 100 mg tablet 100 mg PO QAM RF: 0 prednisone 5 mg tablet 5 mg PO QAM RF: 0 Eliquis 5 mg tablet 5 mg PO BID Qty: 60 RF: 11 multivitamin Tablet 1 tab PO QAM RF: 0 ascorbic acid (vitamin C) [Vitamin C] 1,000 mg Tablet 1,000 mg PO QAM RF: 0 ergocalciferol (vitamin D2) [Vitamin D2] 50,000 unit Capsule 50,000 unit PO WK RF: 0 levothyroxine [Synthroid] 25 mcg tablet 25 mcg PO QAM RF: 0 acetaminophen [Tylenol Extra Strength] 500 mg Tablet 500 mg PO Q6H PRN (Reason: Pain) RF: 0 pregabalin [Lyrica] 200 mg capsule 200 mg PO BID RF: 0 furosemide [Lasix] 40 mg tablet 40 mg PO QAM RF: 0 insulin lispro [Humalog KwikPen Insulin] 100 unit/mL insulin pen 18 unit subcut QDL RF: 0 insulin lispro [Humalog KwikPen Insulin] 100 unit/mL insulin pen 11 unit subcut QDB RF: 0 insulin lispro [Humalog KwikPen Insulin] 100 unit/mL insulin pen 20 unit subcut QDD RF: 0 buspirone 10 mg tablet 10 mg PO BID RF: 0 ipratropium-albuterol 0.5 mg-3 mg(2.5 mg base)/3 mL Solution For Nebulization 3 ml NEB QIDR PRN (Reason: shortness of breath or wheezing) Qty: 90 RF: 0 sennosides [Senokot] 8.6 mg Tablet 17.2 mg PO QAM Qty: 60 RF: 0 (DME) Oxygen Home Liters Per Minute See Rx Instructions .ROUTE .MEDSUPPLY Qty: 1 RF: 0 sodium chloride [Saline Nasal Mist] 0.65 % aerosol,spray 2 sprays INTNAS QID PRN (Reason: nasal congestion or dry nose) Qty: 45 RF: 0 Basaglar KwikPen U-100 Insulin 100 unit/mL (3 mL) insulin pen 30 units subcut BID RF: 0 famotidine 20 mg tablet 20 mg PO BID RF: 0 clopidogrel [Plavix] 75 mg tablet 75 mg PO QAM RF: 0 Discontinued metoprolol tartrate [Lopressor] 50 mg tablet 25 - 50 mg PO AMPM RF: 0 Discharge Orders: Discharge Order (Routine); Ordered 05/20/20 Ordered By: Eliceo Yuen/Other Patient Handouts: Managing Type 2 Diabetes Admission Data Admit Date/Time: 05/08/20 13:32 Attending Provider: Raymundo Lucio Admit Provider: Alfredo Arreola Primary Care Provider: Lizet Jeter Other Providers: Alvin Blunt ; Raymundo Lucio ; [facility] ; [facility] ; Alfredo Arreola. Other Interventions: Discharge Summary Assessment (RN) Last Done: 05/20/20 14:36 Supervising Physician Co-Signing Physician Notes I supervised Eliceo Dewitt PA-C on this admission. I interviewed and examined the patient independently of him. We discussed the plan of care. The plan is as written in his note except for any following changes/exceptions: None Doing well on discharge day. Feeling well overall. Will head to [facility] for rehab. Coding Level of Care Code D/C Day Management >30 mins Diagnoses Encephalopathy acute G93.40 History of esophageal stricture Z87.19 Coronary artery disease I25.10 Associated angina: without angina Coronary Disease-Associated Artery/Lesion type: [place] artery [place] vs. transplanted heart: [place] heart Sleep apnea G47.33 Sleep apnea type: obstructive Time Spent (min) 40
== END 2020-05-20 16:30 | DRG 291 ==
LOC: ED 10:56 → SUATTDRO 13:32 → 2W 13:32

== ENCOUNTER 2020-08-08 13:24 | Observation (INO) ==
[2020-08-08] MEDS ORDERED: SODIUM CHLORIDE 0.9% 1000ML 1,000 ML IV SCH (14:15)
--- NOTE | 2020-08-08 14:35 | CT Scan Report ---
CT cervical spine wo con CT DOSE: 1115.60 mGy.cm CLINICAL HISTORY: 80 years-old Female with fall. Acute neck pain status post fall COMPARISON: Head CT of same day, CT cervical spine 09/15/2019 TECHNIQUE: Multiple axial CT images of the cervical spine were obtained without contrast. A dose low ering technique was utilized adhering to the principles of ALARA. FINDINGS: Straightening of the normal cervical lordosis. Demineralized appearance the bones. Severe d isc space narrowing with prominent spondylitic spurring and posterior disc osteophyte complex formati ons noted at C5-C6 and C6-C7 with severe multilevel facet arthrosis. 3 mm anterolisthesis C4 on C5 is likely on a degenerative basis. There is mild convex right curvature of the cervicothoracic junction . No acute cervical spine fracture or subluxation. Multilevel central canal and foraminal narrowing. Right subclavian pacer. Right subclavian catheter is partially imaged. Intralobular septal thickening . No pneumothorax. Scarring of the left lung apex. Calcified plaque of the carotid bulbs. No preverte bral edema. IMPRESSION: No acute fracture or subluxation. ACT 112: Negative or not required by law. The above report was generated using voice recognition software. It may contain grammatical, syntax o r spelling errors. Electronically signed by: Dipak Tapia M.D. 08/08/2020 2:34 PM
--- NOTE | 2020-08-08 14:44 | CT Scan Report ---
HEAD CT NONCONTRAST CT DOSE: HISTORY: fall, posterior impact TECHNIQUE: Multiaxial CT images of the head were performed without the use of intravenous contrast. A utomated exposure control was utilized for this study. A dose lowering technique was utilized adheri ng to the principles of ALARA. Comparison: Head CT 07/17/2020. Findings: The paranasal sinuses and mastoid air cells are clear. Evidence for prior right-sided crani otomy. Focal area of dural thickening and increased density deep to the craniotomy site favors postop erative change. This remains unchanged. Otherwise, there is no mass, hematoma, midline shift, acute i nfarct. Mild atrophy and microvascular ischemic changes are again noted. This is not significantly ch anged. Prominence of the frontal extra-axial spaces remain stable and is likely due to the atrophy. Impression: No significant change compared to the prior study. No acute intracranial abnormality. ACT 112: Negative or not required by law. Electronically signed by: Jeremy Moran M.D. 08/08/2020 2:43 PM
[2020-08-08 14:51] LABS: Basophils # (auto) 0.02 K/uL (0-0.2); Basophils % (auto) 0.3 %; Eosinophils # (auto) 0.18 K/uL (0-0.5); Eosinophils % (auto) 2.4 %; Hemoglobin 11.4 g/dL (12.0-16.0); Immature Granulocytes # (auto) 0.08 K/uL (0.00-0.02); Immature Granulocytes % (auto) 1.1 %; Lymphocytes # (auto) 0.84 K/uL (1.2-3.4); Lymphocytes % (auto) 11.1 %; Mean Corpuscular Hemoglobin 29.2 pg (25-34); Mean Corpuscular Volume 97.4 fL (80-100); Mean Platelet Volume 10.2 fL (7.4-10.4); Monocytes # (auto) 0.35 K/uL (0.11-0.59); Monocytes % (auto) 4.6 %; Neutrophils % (auto) 80.5 %; Platelet Count 187 K/uL (130-400); RDW Coefficient of Variation 18.6 % (11.5-14.5); RDW Standard Deviation 65.1 fL (36.4-46.3); White Blood Count 7.57 K/uL (4.8-10.8)
[2020-08-08 14:52] LABS: Base Excess VBG 6.3 mEq/L; Oxygen Saturation VBG 75.3 %; pH VBG 7.33 (7.36-7.41)
[2020-08-08 15:07] LABS: Albumin Level 3.2 gm/dl (3.4-5.0); Creatinine Clr Calc Pharmacy 26.6 ml/min; Est GFR (African American) 33.1; Est GFR (Non-African American) 28.6; Magnesium 2.3 mg/dl (1.8-2.4); Potassium 4.6 mmol/L (3.5-5.1)
[2020-08-08 15:18] LABS: Albumin Globulin Ratio 0.9 (0.9-2); Bilirubin,Total 0.6 mg/dl (0.2-1); Globulin 3.5 gm/dl (2.5-4.0); Thyroid Stimulating Hormone 3.01 uIu/ml (0.300-4.500); Total Protein 6.7 gm/dl (6.4-8.2)
--- NOTE | 2020-08-08 15:58 | Emergency Department Note ---
Impression & Plan CHI (closed head injury), Fall, Hypercarbia, Acute UTI (urinary tract infection) ED Provider Note INFORMANT: Patient ED PROVIDER(S): Kartik Lees MD CHIEF COMPLAINT: Fall PLAN: Disposition: Admitted Condition: Good Outpatient prescription management: none Referral: None MEDICAL DECISION MAKING: Patient presented emergency room after fall. She was extremely sleepy on evaluation and there was concerns about head injury. She was sent for CAT scan of her head and neck. Thankfully there was no intracranial bleeding noted. The patient was reassessed and stated she was feeling better with only minimal headache however she was still extremely sleepy. Blood work did not reveal any significant abnormalities. She has some baseline renal insufficiency. She was observed and was still very tired. She was unable to really safely get up and move around on her own. A VBG was checked and shows a mild elevation of her CO2 however not significantly different than baseline. Patient was observed for additional time. I discussed things with her . Urinalysis was eventual ly obtained. There was some concern about infection given an positive nitrite. Culture was done. The patient was written for antibiotics. Given her somnolence there was some concern about her taking oral medication so she was given IV Rocephin. She then had an ABG performed. A ABG revealed mild hypercarbia but not significantly different from baseline as well. Adequate oxygenation noted. The patient was arousable to voice but would fall asleep within 10 to 20 seconds repeatedly. At this point the patient is not safe to go home. Looking at her medication she is on a high dose of Lyrica and based upon a creatinine clearance this could be a cause. Further management and investigation will be necessary. I discussed the case with Dr. Hinojosa of internal medicine. The patient will be evaluated for further management in the hospital. I did notify the patient's as well and he was in agreement. Triage Nursing notes reviewed and agree them. Additional history obtained from patient's . Prior medical records reviewed Vital Signs: reviewed and remarkable for no significant abnormalities Differential diagnosis: Concussion, contusion, fracture, subdural hematoma, epidural hematoma, intrapar enchymal hemorrhage, as well as other pathologies. Diagnostics interpreted by me: ECG: Twelve-lead ECG reveals a AV paced rhythm at 70 bpm. No PVCs. No ST elevation. Imaging studies: CT scan of the head and cervical spine were performed and were negative for acute traumatic pathology. Consultation(s): Hospitalist service HPI: The patient is a 80 year old female who presents to the Emergency Room with complaints of a fall. This started just prior to arrival and is accidental as she describes. She states that she lost her balance and fell backwards. She struck the back of her head. Concerns as she is on blood thinners. The patient also notes the following associated symptoms, mild headache and neck pain. The patient has taken no medication for relieving factors. Pt denies LOC, , fevers, chills, diaphoresis, visual changes, chest pain, breathing difficulties, nausea, vomiting, abdominal pain, back pain, melena, hematochezia, urinary symptoms, numbness, focal weakness, lymphadenopathy, rash, or other complaints. ROS: See above HPI for pertinent positives & negatives. A total of 10 systems reviewed and were otherwise negative. PAST MEDICAL HISTORY:See Below , UTI, diabetes, CAD PAST SURGICAL HISTORY:See Below, FAMILY HISTORY:See Below SOCIAL HISTORY:See Below, family HOME MEDICATIONS:See Below ALLERGIES:See Below VITALS:See Below PHYSICAL EXAMINATION: GENERAL: Awake, tired-appearing, in no distress HENT: Normocephalic, occipital tenderness. No lacerations.. Oropharynx unremarkable. EYES: Normal conjunctiva. Sclera non-icteric. PERRLA. EOMI. NECK: Inspection normal. Non-tender. Supple. No nuchal rigidity. FROM. No masses. No step-offs. RESPIRATORY: Clear to auscultation. No wheezes. No rales. Normal respiratory effort. CARDIAC: Normal rate. Normal rhythm. No murmurs. No rubs. Extremities warm and well perfused. Pulses equal. No JVD. GI: Soft, non-distended. No tenderness to palpation. No rebound or guarding. No masses. RECTAL: Deferred. MUSCULOSKELETAL: Atraumatic. Chest examination reveals no tenderness. The back is symmetrical on inspection without obvious abnormality. There is no CVA tenderness to palpation. No joint edema. LOWER EXTREMITIES: Calves are equal size bilaterally and non-tender. No edema. No discoloration. NEURO: Very sleepy but otherwise normal sensorium. No focal sensory or motor deficits noted. SKIN: No rash or jaundice noted. 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) Dyslipidemia Elevated troponin Fracture of head of left humerus Gout HTN (hypertension) Hypertrophic cardiomyopathy apical variant Hypothyroidism Knee arthropathy Lung cancer Myocardial infarction X4 Paroxysmal A-fib Peripheral neuropathy Proteinuria Thrombocytopenia Vitamin D deficiency Surgical History History of cardioversion MULTIPLE History of cataract surgery History of lung surgery PARTIAL LEFT LOBECTOMY (2013) Hx of brain surgery 2017 S/P FALL/INJURY; SUBSEQUENT BLOOD CLOT EVACUATION Knee joint replacement status S/P cardiac catheterization 7 TOTAL; CARDIAC STENTS X6 S/P hysterectomy S/P tonsillectomy Family History Father , Patient age 82 of stomach cancer. Cancer Heart disease Diabetes Mother , age 93 of heart issues Stroke Hypertension Heart disease Grandmother (Maternal) Coronary heart disease Stroke Family/Other Multiple sclerosis Brother Coronary heart disease Grandfather (Maternal) Heart disease Grandfather (Paternal) Diabetes Aunt Muscular dystrophy Other Gallbladder disease Kidney stones Social History Smoking Status: Never smoker Second Hand Exposure: No; Hx Alcohol Use: No Hx Substance Use: No Preferred Language: Mohawk Communication Ability: Effective Cook Relief Required: No Beliefs That Will Affect Care: None marital status: Current Living Situation: Spouse Current Living Situation Comment: lives in [place] 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al status: retired 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 How many Children do You have: 3 other: 3 children Feels Safe at Home: Yes Assistive Devices: Oxygen - Continuous and Walker Allergies Allergies Allergy/AdvReac Type Severity Reaction Status Date / Time eptifibatide Allergy Severe ANAPHYLAXIS Verified 07/16/20 23:58 hornet venom Allergy Severe WASP VENOM Verified 07/16/20 23:58 PROTEIN-ANAPHYLAXIS levofloxacin [From Levaquin] Allergy Severe Hives Verified 07/16/20 23:58 atorvastatin Allergy Intermediate MUSCLE PAIN Verified 07/16/20 23:58 ezetimibe Allergy Intermediate MUSCLE PAIN Verified 07/16/20 23:58 simvastatin Allergy Intermediate MUSCLE PAIN Verified 07/16/20 23:58 amlodipine AdvReac Severe Nausea Verified 07/16/20 23:58 azithromycin AdvReac Intermediate Palpitation Verified 07/16/20 23:58 s cortisone AdvReac Intermediate INCREASES Verified 07/16/20 23:58 SUGAR AND VOMITING? hydralazine AdvReac Intermediate VOMITING Verified 07/16/20 23:58 ibuprofen AdvReac Intermediate VOMITING Verified 07/16/20 23:58 AND DIARRHEA iodine AdvReac Intermediate SHELLFISH Verified 07/16/20 23:58 - VOMITING shellfish derived AdvReac Intermediate VOMITING Verified 07/16/20 23:58 Sulfa (Sulfonamide AdvReac Intermediate VOMITING Verified 07/16/20 23:58 Antibiotics) warfarin AdvReac Intermediate EXTREME Verified 07/16/20 23:58 BLEEDING TIMES codeine AdvReac Mild VOMITING Verified 07/16/20 23:58 gemfibrozil AdvReac Mild NAUSEA Verified 07/16/20 23:58 meperidine AdvReac Mild VOMITING Verified 07/16/20 23:58 ondansetron AdvReac Mild vomiting Verified 07/16/20 23:58 ranitidine [From Zantac] AdvReac Mild dyspepsia Verified 07/16/20 23:58 Home Meds Home Medications Medication Instructions Recorded Confirmed ascorbic acid (vitamin C) [Vitamin 1,000 mg PO QAM 06/20/18 07/17/20 C] ergocalciferol (vitamin D2) 50,000 unit PO WK 06/20/18 07/17/20 [Vitamin D2] multivitamin 1 tab PO QAM 06/20/18 07/17/20 nitroglycerin 0.4 mg sublingual 0.4 mg SL Q5M PRN #25 tab 02/26/19 07/17/20 tablet levothyroxine [Synthroid] 25 mcg PO QAM 06/04/19 07/17/20 buspirone 10 mg PO BID 07/12/19 07/17/20 furosemide 40 mg tablet 40 mg PO QAM tab 01/14/20 07/17/20 acetaminophen [Tylenol Extra 500 mg PO Q6H PRN 02/06/20 07/17/20 Strength] famotidine 20 mg PO BID 05/08/20 07/17/20 sennosides 8.6 mg tablet 8.6 mg PO QAM tab 07/07/20 07/17/20 allopurinol 300 mg PO BID 07/08/20 07/17/20 clopidogrel 75 mg PO DAILY 07/17/20 07/17/20 prednisone 5 mg PO DAILY 07/17/20 07/17/20 escitalopram oxalate 5 mg PO QAM 07/20/20 07/20/20 Previous Rx's Medication Instructions Recorded ipratropium-albuterol 3 ml NEB QIDR PRN #90 ml 07/17/19 sodium chloride [Saline Nasal Mist] 2 sprays INTNAS QID PRN #45 ml 09/19/19 apixaban 5 mg tablet 5 mg PO BID #60 tab 04/09/20 metoprolol tartrate 25 mg PO PM #30 tab 05/20/20 Basaglar KwikPen U-100 Insulin 22 units SUBCUT BID #0 ml 07/24/20 insulin aspart U-100 [Novolog 1 unit SC ACHS #3 ml 07/24/20 Flexpen U-100 Insulin] Results & Data (ED) Vital Signs Vital Signs - 24 hr 08/08/20 13:29 08/08/20 14:40 08/08/20 16:17 Temperature 36.8 C Temperature Source Oral Pulse Rate 77 77 Pulse Rate [Finger] 77 71 Pulse Rate from SpO2 Sensor Respiratory Rate 20 18 18 Respiratory Effort / Characteristics Non-Labored Respiratory Depth Normal Blood Pressure 179/77 H Blood Pressure [Right Arm] 183/83 H 136/84 Blood Pressure Mean 111 Blood Pressure Mean [Right Arm] 116 101 Pulse Oximetry 94 94 96 Oxygen Delivery Method Nasal Cannula Nasal Cannula Nasal Cannula Oxygen Flow Rate 3 4 3 Sepsis Recent Fever Within 48 Hours No Sepsis New/Unexplained Change in Mental Status No Sepsis Action Taken by Nursing No Action Required 08/08/20 17:32 08/08/20 18:00 08/08/20 18:16 Temperature Temperature Source Pulse Rate 71 74 Pulse Rate [Finger] 74 Pulse Rate from SpO2 Sensor 71 73 Respiratory Rate 16 19 20 Respiratory Effort / Characteristics Respiratory Depth Blood Pressure 172/104 H 171/85 H Blood Pressure [Right Arm] 181/79 H Blood Pressure Mean 122 104 Blood Pressure Mean [Right Arm] 113 Pulse Oximetry 95 98 98 Oxygen Delivery Method Nasal Cannula Oxygen Flow Rate 3 Sepsis Recent Fever Within 48 Hours Sepsis New/Unexplained Change in Mental Status Sepsis Action Taken by Nursing 08/08/20 18:30 08/08/20 19:00 Temperature Temperature Source Pulse Rate 73 70 Pulse Rate [Finger] Pulse Rate from SpO2 Sensor 71 Respiratory Rate 17 19 Respiratory Effort / Characteristics Respiratory Depth Blood Pressure 171/77 H 165/85 H Blood Pressure [Right Arm] Blood Pressure Mean 105 95 Blood Pressure Mean [Right Arm] Pulse Oximetry 99 Oxygen Delivery Method Oxygen Flow Rate Sepsis Recent Fever Within 48 Hours Sepsis New/Unexplained Change in Mental Status Sepsis Action Taken by Nursing Laboratory Data Result diagrams: 08/08/20 14:35 08/08/20 14:35 Lab Results 08/08/20 08/08/20 08/08/20 Range/Units 14:35 14:35 14:35 WBC 7.57 (4.8-10.8) K/uL RBC 3.90 L (4.2-5.4) M/uL Hgb 11.4 L (12.0-16.0) g/dL Hct 38.0 (37-47) % MCV 97.4 (80-100) fL MCH 29.2 (25-34) pg MCHC 30.0 L (32-36) g/dL RDW Std Deviation 65.1 H (36.4-46.3) fL RDW Coeff of Nhi 18.6 H (11.5-14.5) % Plt Count 187 (130-400) K/uL MPV 10.2 (7.4-10.4) fL Immature Gran % (Auto) 1.1 % Neut % (Auto) 80.5 % Lymph % (Auto) 11.1 % Monroe % (Auto) 4.6 % Eos % (Auto) 2.4 % Baso % (Auto) 0.3 % Neut # (Auto) 6.10 (1.4-6.5) K/uL Lymph # (Auto) 0.84 L (1.2-3.4) K/uL Monroe # (Auto) 0.35 (0.11-0.59) K/uL Eos # (Auto) 0.18 (0-0.5) K/uL Baso # (Auto) 0.02 (0-0.2) K/uL Immature Gran # (Auto) 0.08 H (0.00-0.02) K/uL ABG pH ABG pCO2 ABG pO2 ABG HCO3 ABG O2 Saturation ABG Base Excess Kobe Test VBG pH 7.33 L (7.36-7.41) VBG pCO2 66 H (38-50) mmHg VBG pO2 53 mmHg VBG HCO3 34 mmol/L VBG O2 Saturation 75.3 % VBG Base Excess 6.3 mEq/L Barometric Pressure 727.1 mm/Hg Oxygen Given Sodium 140 (136-145) mmol/L Potassium 4.6 (3.5-5.1) mmol/L Chloride 103 (98-107) mmol/L Carbon Dioxide 33 H (21-32) mmol/L Anion Gap 4.0 (3-11) BUN 39 H (7-18) mg/dl Creatinine 1.68 H (0.6-1.2) mg/dl Est Cr Clr Drug Dosing 26.6 ml/min Est GFR ( Amer) 33.1 Est GFR (Non-Af Amer) 28.6 BUN/Creatinine Ratio 23.0 H (10-20) Glucose 93 (70-99) mg/dl Calcium 9.0 (8.5-10.1) mg/dl Magnesium 2.3 (1.8-2.4) mg/dl Total Bilirubin 0.6 (0.2-1) mg/dl AST 38 H (15-37) U/L ALT 49 (12-78) U/L Alkaline Phosphatase 82 (45-117) U/L Total Protein 6.7 (6.4-8.2) gm/dl Albumin 3.2 L (3.4-5.0) gm/dl Globulin 3.5 (2.5-4.0) gm/dl Albumin/Globulin Ratio 0.9 (0.9-2) TSH 3.010 (0.300-4.500) uIu/ml Urine Color Urine Appearance (Clear) Urine pH (4.5-7.5) Ur Specific Boomer (1.000-1.030) Urine Protein (Negative) Urine Glucose (UA) (Negative) Urine Ketones (Negative) Urine Blood (Negative) Urine Nitrite (Negative) Urine Bilirubin (Negative) Urine Urobilinogen (Negative) Ur Leukocyte Esterase (Negative) Urine WBC (Auto) (0-5) /hpf Urine RBC (Auto) (0-4) /hpf U Hyaline Cast (Auto) (0-5) /lpf U Epithel Cells (Auto) (0-5) /lpf Urine Bacteria (Auto) (Negative) 08/08/20 08/08/20 08/08/20 Range/Units 16:13 18:15 19:14 WBC (4.8-10.8) K/uL RBC (4.2-5.4) M/uL Hgb (12.0-16.0) g/dL Hct (37-47) % MCV (80-100) fL MCH (25-34) pg MCHC (32-36) g/dL RDW Std Deviation (36.4-46.3) fL RDW Coeff of Nhi (11.5-14.5) % Plt Count (130-400) K/uL MPV (7.4-10.4) fL Immature Gran % (Auto) % Neut % (Auto) % Lymph % (Auto) % Monroe % (Auto) % Eos % (Auto) % Baso % (Auto) % Neut # (Auto) (1.4-6.5) K/uL Lymph # (Auto) (1.2-3.4) K/uL Monroe # (Auto) (0.11-0.59) K/uL Eos # (Auto) (0-0.5) K/uL Baso # (Auto) (0-0.2) K/uL Immature Gran # (Auto) (0.00-0.02) K/uL ABG pH Cancelled 7.34 L ABG pCO2 Cancelled 61 H ABG pO2 Cancelled 200 H ABG HCO3 Cancelled 32 H ABG O2 Saturation Cancelled 99.5 H ABG Base Excess Cancelled 5.1 H Kobe Test Cancelled Pos VBG pH (7.36-7.41) VBG pCO2 (38-50) mmHg VBG pO2 mmHg VBG HCO3 mmol/L VBG O2 Saturation % VBG Base Excess mEq/L Barometric Pressure Cancelled 726.7 mm/Hg Oxygen Given Cancelled 3% Sodium (136-145) mmol/L Potassium (3.5-5.1) mmol/L Chloride (98-107) mmol/L Carbon Dioxide (21-32) mmol/L Anion Gap (3-11) BUN (7-18) mg/dl Creatinine (0.6-1.2) mg/dl Est Cr Clr Drug Dosing ml/min Est GFR ( Amer) Est GFR (Non-Af Amer) BUN/Creatinine Ratio (10-20) Glucose (70-99) mg/dl Calcium (8.5-10.1) mg/dl Magnesium (1.8-2.4) mg/dl Total Bilirubin (0.2-1) mg/dl AST (15-37) U/L ALT (12-78) U/L Alkaline Phosphatase (45-117) U/L Total Protein (6.4-8.2) gm/dl Albumin (3.4-5.0) gm/dl Globulin (2.5-4.0) gm/dl Albumin/Globulin Ratio (0.9-2) TSH (0.300-4.500) uIu/ml Urine Color Dark Yellow Urine Appearance Clear (Clear) Urine pH 5.0 (4.5-7.5) Ur Specific Boomer 1.023 (1.000-1.030) Urine Protein 1+ H (Negative) Urine Glucose (UA) Negative (Negative) Urine Ketones Negative (Negative) Urine Blood Negative (Negative) Urine Nitrite Positive A (Negative) Urine Bilirubin Negative (Negative) Urine Urobilinogen Negative (Negative) Ur Leukocyte Esterase Trace H (Negative) Urine WBC (Auto) 1-5 (0-5) /hpf Urine RBC (Auto) 0-4 (0-4) /hpf U Hyaline Cast (Auto) 1-5 (0-5) /lpf U Epithel Cells (Auto) 10-20 H (0-5) /lpf Urine Bacteria (Auto) Negative (Negative) Administered Medications Sodium Chloride (Nss 1000ml) 1,000 mls @ 125 mls/hr IV .Q8H [facility] Stop: 08/08/20 22:14 Last Admin: 08/08/20 14:30 Dose: 125 mls/hr Documented by: [id number] Discontinued Medications Cephalexin HCl (Cephalexin 250 Mg Cap) 500 mg PO NOW ONE Stop: 08/08/20 17:19 Last Admin: 08/08/20 18:57 Dose: Not Given Documented by: [id number] Ceftriaxone Sodium (Rocephin) 2,000 mg in 70 mls @ 140 mls/hr IV NOW STA Stop: 08/08/20 18:11 Last Infusion: 08/08/20 18:57 Dose: 0 mls/hr Documented by: [id number] Admin: 08/08/20 17:58 Dose: 140 mls/hr Documented by: [id number] Discharge Plan Visit Data Chief Complaint: Fall ED Provider: Kartik Lees Discharge Problem: CHI (closed head injury), Fall, Hypercarbia, Acute UTI (urinary tract infection) Forms Stand Alone Forms: [facility] Prescriptions Prescriptions: No Action nitroglycerin 0.4 mg tablet, sublingual 0.4 mg SL Q5M PRN (Reason: Chest Pain) Qty: 25 RF: 0 sennosides [Senokot] 8.6 mg tablet 8.6 mg PO QAM RF: 0 Eliquis 5 mg tablet 5 mg PO BID Qty: 60 RF: 11 multivitamin Tablet 1 tab PO QAM RF: 0 ascorbic acid (vitamin C) [Vitamin C] 1,000 mg Tablet 1,000 mg PO QAM RF: 0 ergocalciferol (vitamin D2) [Vitamin D2] 50,000 unit Capsule 50,000 unit PO WK RF: 0 levothyroxine [Synthroid] 25 mcg tablet 25 mcg PO QAM RF: 0 acetaminophen [Tylenol Extra Strength] 500 mg Tablet 500 mg PO Q6H PRN (Reason: Pain) RF: 0 allopurinol 300 mg tablet 300 mg PO BID RF: 0 prednisone 5 mg tablet 5 mg PO DAILY RF: 0 clopidogrel 75 mg tablet 75 mg PO DAILY RF: 0 escitalopram oxalate 5 mg tablet 5 mg PO QAM RF: 0 insulin aspart U-100 [Novolog Flexpen U-100 Insulin] 100 unit/mL (3 mL) Insulin Pen 1 unit SC ACHS Qty: 3 RF: 0 Basaglar KwikPen U-100 Insulin 100 unit/mL (3 mL) insulin pen 22 units subcut BID Qty: 0 RF: 0 furosemide [Lasix] 40 mg tablet 40 mg PO QAM RF: 0 buspirone 10 mg tablet 10 mg PO BID RF: 0 ipratropium-albuterol 0.5 mg-3 mg(2.5 mg base)/3 mL Solution For Nebulization 3 ml NEB QIDR PRN (Reason: shortness of breath or wheezing) Qty: 90 RF: 0 sodium chloride [Saline Nasal Mist] 0.65 % aerosol,spray 2 sprays INTNAS QID PRN (Reason: nasal congestion or dry nose) Qty: 45 RF: 0 famotidine 20 mg tablet 20 mg PO BID RF: 0 metoprolol tartrate 50 mg Tablet 25 mg PO PM Qty: 30 RF: 0
[2020-08-08 16:40] LABS: Appearance Urine Clear (Clear); Bacteria Urine Automated Negative (Negative); Bilirubin Urine Negative (Negative); Blood Urine Negative (Negative); Color Urine Dark Yellow; Glucose Urine UA Negative (Negative); Ketones Urine Negative (Negative); Leukocyte Esterase Urine Trace (Negative); Nitrite Urine Positive (Negative); Protein Urine 1+ (Negative); RBC Urine Automated 0-4 /hpf (0-4); Specific Gravity Urine 1.023 (1.000-1.030); Urobilinogen Urine Negative (Negative)
[2020-08-08] MEDS ORDERED: cephALEXin 250 MG CAP PO ONE (17:18)
[2020-08-08] MEDS ORDERED: cefTRIAXone SODIUM 2,000 MG/70 ML BAG IV STA (17:42)
[2020-08-08 19:25] LABS: Base Excess ABG 5.1 mEq/L (-9-1.8); HCO3 ABG 32 mmol/L (19-24); Oxygen Saturation ABG 99.5 % (90-95); PCO2 ABG 61 mmHg (35-46); PO2 ABG 200 mmHg (80-95); pH ABG 7.34 (7.35-7.45)
[2020-08-08 19:26] LABS: Allen Test Pos (Pos)
--- NOTE | 2020-08-08 21:03 | History & Physical Report ---
Date of Service August 08, 2020 Assessment & Plan (1) CHI (closed head injury): Maureen Hagen is a 80-year-old female with past medical history chronic diastolic heart failure, cor pulmonale on chronic oxygen supplementation, coronary artery disease, paroxysmal A. fib on Eliquis status post pacemaker, hypertension, CKD Stage IV, insulin-dependent diabetes mellitus type 2, peripheral neuropathy, obstructive sleep apnea on CPAP, hypothyroidism, gout presents for CC of Fall. - Admission for Neuro checks as on Eliquis for reported head injury, NV checks q4H. - Neuro exam without concern for focal neuro deficits or signs of brain bleed. No Bleed on CT Head. - Will hold Eliquis and hold anti-platelet Plavix. - No signs of acute injury on physical exam. - Tylenol for pain PRN FENGI: Diabetic Diet and Heart Healthy Diet, C/w home Pepcid 20mg BID. No indication for IVF currently. Has received IVF @ 125ml/hr in ED. DVT PPX: SCDs, Anti-coagulation contraindicted in Admit for Head trauma with concerned brain bleed Code: DNR/DNI, she endorses this and is consistent with prior Code status Dispo: Med/surg tele, Obs (2) Fall: Reported mechanical. Suspect with hx of encephalopathy, on busprione, hypercapnic, declining strength from deconditioning at home. Only noted to have head injury with neck pain for ED staff. No current complaints for me during interview. Negative CT Neck for fx, Negative CT head for acute process Fall precautions PT/OT (3) Acute UTI (urinary tract infection): Positive Nitrates in ED on UA, started on abx. Previous positive culture deleon sensitive Not septic or with complaints will treat with Keflex 500mg TID. 7 day course. Await cultures for any needed clinical course adjustment (4) Abdominal distention: Unreliable historian with distention on exam, will get KUB incase she has some sort of obstruction or other pathology continue with home sennokot (5) Hypercarbia: Labs on presentation consistent with Hypercarbia. Chronic. Most likely contributing to AMS/Falls. (6) Chronic kidney disease, stage IV (severe): Creat here appears to be at baseline compared to prior labs. Renal dosing of meds as appropriate Is and Os Monitor fluid status for signs of fluid overload in setting of hx of CHF (7) Hypothyroidism: c/w home Synthroid 25mcg PO (8) Coronary artery disease: noted in hx, hold home antiplatelets. (9) Muscle weakness (generalized): Noted for past year. Was recently at inpatient rehab. Suspect deconditioning since discharge home from that facility. (10) Paroxysmal atrial tachycardia: Will have to hold home eliquis Continue with home metoprolol admit to tele (11) Pacemaker: noted in hx admit to tele (12) CHF (congestive heart failure): c/w home Lasix 40mg PO qAM (13) Chronic respiratory failure with hypoxia and hypercapnia: continue with home O2, signs of hypercapnia on labs. Continue with CPAP. (14) Gout: Hold home Allopurinol, in attempt to limit polypharmacy, not acutely needed in current observation setting. (15) Diabetic polyneuropathy: Noted to be uncontrolled, Will continue prior Lantus order of 22 units SQ BID. SS Novolog with loose control in current setting of head injury. (16) Hallucinations: sleepy currently, noted deliirum with Hallucinations and hx of dementia from previous visit. Will hold home buspirone for now but low threshold to start for agitation during admission. (17) Dyslipidemia: Noted allergies to statins History of Present Illness Chief Complaint: Fall/Head Injury Primary Care Provider: Lizet Jeter DO Caveat: History Limited by - Dementia/AMS Maureen Hagen is a 80-year-old female with past medical history chronic diastolic heart failure, cor pulmonale on chronic oxygen supplementation, coronary artery disease, paroxysmal A. fib on Eliquis status post pacemaker, hypertension, CKD Stage IV, insulin-dependent diabetes mellitus type 2, peripheral neuropathy, obstructive sleep apnea on CPAP, hypothyroidism, gout presents for CC of Fall. She cannot recall events leading to or reason why in hospital. Reported history which was given earlier to ED staff, Maureen had a mechanical fall that was accidental. She backwards and struck the back of her head. Currently she has no headache, no neck pain, no abdominal pain, no chest. She is on O2 suppl emental at home and reports no worsening shortness of breath. She states that she has been dizzy lately. Her only other complaint is weakness over the past year. She recently was hospitalized here from 07/17-07/24 with discharge to inpatient rehab. She states that she was released possible earlier this week. She has no complaints of focal weakness or numbness. She was noted to be sleepy by staff. She does not she has had difficulty with medication compliance at home and missed dosage of medications, but she cannot recall more details. Allergies Allergy/AdvReac Type Severity Reaction Status Date / Time eptifibatide Allergy Severe ANAPHYLAXIS Verified 08/08/20 20:46 hornet venom Allergy Severe WASP VENOM Verified 08/08/20 20:46 PROTEIN-ANAPHYLAXIS levofloxacin [From Levaquin] Allergy Severe Hives Verified 08/08/20 20:46 atorvastatin Allergy Intermediate MUSCLE PAIN Verified 08/08/20 20:46 ezetimibe Allergy Intermediate MUSCLE PAIN Verified 08/08/20 20:46 simvastatin Allergy Intermediate MUSCLE PAIN Verified 08/08/20 20:46 amlodipine AdvReac Severe Nausea Verified 08/08/20 20:46 azithromycin AdvReac Intermediate Palpitation Verified 08/08/20 20:46 s cortisone AdvReac Intermediate INCREASES Verified 08/08/20 20:46 SUGAR AND VOMITING? hydralazine AdvReac Intermediate VOMITING Verified 08/08/20 20:46 ibuprofen AdvReac Intermediate VOMITING Verified 08/08/20 20:47 AND DIARRHEA iodine AdvReac Intermediate SHELLFISH Verified 08/08/20 20:47 - VOMITING shellfish derived AdvReac Intermediate VOMITING Verified 08/08/20 20:47 Sulfa (Sulfonamide AdvReac Intermediate VOMITING Verified 08/08/20 20:47 Antibiotics) warfarin AdvReac Intermediate EXTREME Verified 08/08/20 20:47 BLEEDING TIMES codeine AdvReac Mild VOMITING Verified 08/08/20 20:47 gemfibrozil AdvReac Mild NAUSEA Verified 08/08/20 20:47 meperidine AdvReac Mild VOMITING Verified 08/08/20 20:47 ondansetron AdvReac Mild vomiting Verified 08/08/20 20:47 ranitidine [From Zantac] AdvReac Mild dyspepsia Verified 07/16/20 23:58 Home Medications Medication Instructions Recorded Confirmed Type ascorbic acid (vitamin C) [Vitamin 1,000 mg PO QAM 06/20/18 08/08/20 History C] ergocalciferol (vitamin D2) 50,000 unit PO WK 06/20/18 08/08/20 History [Vitamin D2] multivitamin 1 tab PO QAM 06/20/18 08/08/20 History nitroglycerin 0.4 mg sublingual 0.4 mg SL Q5M PRN #25 tab 02/26/19 08/08/20 History tablet levothyroxine [Synthroid] 25 mcg PO QAM 06/04/19 08/08/20 History buspirone 10 mg PO BID 07/12/19 08/08/20 History ipratropium-albuterol 3 ml NEB QIDR PRN #90 ml 07/17/19 08/08/20 Rx sodium chloride [Saline Nasal Mist] 2 sprays INTNAS QID PRN #45 ml 09/19/19 08/08/20 Rx apixaban 5 mg tablet 5 mg PO BID #60 tab 04/09/20 08/08/20 Rx metoprolol tartrate 25 mg PO PM #30 tab 05/20/20 08/08/20 Rx sennosides 8.6 mg tablet 8.6 mg PO QAM tab 07/07/20 08/08/20 History clopidogrel 75 mg PO DAILY 07/17/20 08/08/20 History prednisone 5 mg PO DAILY 07/17/20 08/08/20 History escitalopram oxalate 5 mg PO QAM 07/20/20 08/08/20 History Basaglar KwikPen U-100 Insulin 22 units SUBCUT BID #0 ml 07/24/20 08/08/20 Rx acetaminophen [Tylenol] 325 mg PO Q4 PRN 08/08/20 08/08/20 History allopurinol 200 mg PO DAILY 08/08/20 08/08/20 History furosemide 20 mg PO DAILY 08/08/20 08/08/20 History insulin glargine [Basaglar KwikPen 22 unit SUBCUT BID 08/08/20 08/08/20 History U-100 Insulin] potassium chloride 10 meq PO BID 08/08/20 08/08/20 History Past Med/Surg History Medical History (Updated 08/09/20 @ 03:25 by Mariely Hinojosa DO) Acute on chronic diastolic heart failure Anemia Angina pectoris Chronic kidney disease, stage IV (severe) Chronic respiratory failure with hypoxia and hypercapnia COPD with acute exacerbation Diabetes Diabetic foot ulcer associated with type 2 diabetes mellitus 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) Dyslipidemia Elevated troponin Fracture of head of left humerus Gout HTN (hypertension) Hypertrophic cardiomyopathy apical variant Hypothyroidism Knee arthropathy Lung cancer Myocardial infarction X4 Paroxysmal A-fib Peripheral neuropathy Proteinuria Thrombocytopenia Vitamin D deficiency Surgical History History of cardioversion MULTIPLE History of cataract surgery History of lung surgery PARTIAL LEFT LOBECTOMY (2013) Hx of brain surgery 2017 S/P FALL/INJURY; SUBSEQUENT BLOOD CLOT EVACUATION Knee joint replacement status S/P cardiac catheterization 7 TOTAL; CARDIAC STENTS X6 S/P hysterectomy S/P tonsillectomy Family History Father , Patient age 82 of stomach cancer. Cancer Heart disease Diabetes Mother , age 93 of heart issues Stroke Hypertension Heart disease Grandmother (Maternal) Coronary heart disease Stroke Family/Other Multiple sclerosis Brother Coronary heart disease Grandfather (Maternal) Heart disease Grandfather (Paternal) Diabetes Aunt Muscular dystrophy Other Gallbladder disease Kidney stones Social History Smoking Status: Never smoker Second Hand Exposure: No; Hx Alcohol Use: No Hx Substance Use: No Preferred Language: Martiniquais Communication Ability: Effective Stock Order Lister Required: No Beliefs That Will Affect Care: None marital status: Current Living Situation: Spouse 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al status: retired 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 How many Children do You have: 3 other: 3 children Feels Safe at Home: Yes Safety Concerns: Feels Safe At This Time Assistive Devices: Oxygen - Continuous and Walker Review of Systems Review of Systems: Limited by: AMS/Dementia Constitutional: no fever and no chills Eyes: no blind spots and no diplopia Ear, Nose, Mouth, Throat: no nasal congestion and no epistaxis Respiratory: no cough and no hemoptysis Cardiovascular: no chest pain and no palpitations Musculoskeletal: no back pain and no neck pain Integumentary: no rash and no lesions Neurologic: as per Subjective / HPI Physical Exam Constitutional: + obese, cooperative and comfortable; not in distress Eyes: PERRL; no conjunctival abnormality and no EOM movement deficit ENMT: external ear and nose normal, oropharynx normal Neck: normal visual inspection and trachea midline Respiratory: no respiratory distress Auscultation: + crackles (mild expiratory at base bilaterally) Cardiovascular: Rate/Rhythm: regular rate and regular rhythm Gastrointestinal (Abdomen): Percussion/Palpation: abdomen soft; abdomen nontender, no guarding and abdomen not rigid Musculoskeletal: Head/Neck/Chest: normocephalic and head atraumatic Ext remities: strength 5/5 throughout Shoulder: no deformity and no joint line tenderness Hip: no joint line tenderness Knee: no deformity and no joint line tenderness Ankle: no deformity and no joint line tenderness (ankle) Skin: no rashes, warm and dry Neurologic: CN's II-XI intact bilaterally and moves all extremities; no focal motor deficits Speech / Cognition: normal speech Cranial Nerves: EOM intact bilaterally Psychiatric: oriented to self, knows she is in a hospital, oriented to time, no oriented to events. Is sleepy but arouses to voice. Answers questions appropriately. Results & Data Results & Data ([facility]) Vital Signs (Past 12 Hours) Vital Signs Temp Pulse Pulse Resp BP BP Pulse Ox 08/08/20 19:00 70 19 165/85 H 99 08/08/20 18:30 73 17 171/77 H 08/08/20 18:16 74 20 171/85 H 98 08/08/20 18:00 71 19 172/104 H 98 08/08/20 17:32 74 16 181/79 H 95 08/08/20 16:17 71 18 136/84 96 08/08/20 14:40 77 77 18 183/83 H 94 08/08/20 13:29 36.8 C 77 20 179/77 H 94 Laboratory Results Laboratory Results - last 24 hr 08/08/20 08/08/20 08/08/20 14:35 14:35 14:35 WBC 7.57 RBC 3.90 L Hgb 11.4 L Hct 38.0 MCV 97.4 MCH 29.2 MCHC 30.0 L RDW Std Deviation 65.1 H RDW Coeff of Nhi 18.6 H Plt Count 187 MPV 10.2 Immature Gran % (Auto) 1.1 Neut % (Auto) 80.5 Lymph % (Auto) 11.1 [place] % (Auto) 4.6 Eos % (Auto) 2.4 Baso % (Auto) 0.3 Neut # (Auto) 6.10 Lymph # (Auto) 0.84 L [place] # (Auto) 0.35 Eos # (Auto) 0.18 Baso # (Auto) 0.02 Immature Gran # (Auto) 0.08 H ABG pH ABG pCO2 ABG pO2 ABG HCO3 ABG O2 Saturation ABG Base Excess Kobe Test VBG pH 7.33 L VBG pCO2 66 H VBG pO2 53 VBG HCO3 34 VBG O2 Saturation 75.3 VBG Base Excess 6.3 Barometric Pressure 727.1 Oxygen Given Sodium 140 Potassium 4.6 Chloride 103 Carbon Dioxide 33 H Anion Gap 4.0 BUN 39 H Creatinine 1.68 H Est Cr Clr Drug Dosing 26.6 Est GFR ( Amer) 33.1 Est GFR (Non-Af Amer) 28.6 BUN/Creatinine Ratio 23.0 H Glucose 93 Calcium 9.0 Magnesium 2.3 Total Bilirubin 0.6 AST 38 H ALT 49 Alkaline Phosphatase 82 Total Protein 6.7 Albumin 3.2 L Globulin 3.5 Albumin/Globulin Ratio 0.9 TSH 3.010 Urine Color Urine Appearance Urine pH Ur Specific [place] Urine Protein Urine Glucose (UA) Urine Ketones Urine Blood Urine Nitrite Urine Bilirubin Urine Urobilinogen Ur Leukocyte Esterase Urine WBC (Auto) Urine RBC (Auto) U Hyaline Cast (Auto) U Epithel Cells (Auto) Urine Bacteria (Auto) COVID-19 Eval Order SARS-CoV-2, RNA, NAAT 08/08/20 08/08/20 08/08/20 16:13 18:15 19:14 WBC RBC Hgb Hct MCV MCH MCHC RDW Std Deviation RDW Coeff of Nhi Plt Count MPV Immature Gran % (Auto) Neut % (Auto) Lymph % (Auto) [place] % (Auto) Eos % (Auto) Baso % (Auto) Neut # (Auto) Lymph # (Auto) [place] # (Auto) Eos # (Auto) Baso # (Auto) Immature Gran # (Auto) ABG pH Cancelled 7.34 L ABG pCO2 Cancelled 61 H ABG pO2 Cancelled 200 H ABG HCO3 Cancelled 32 H ABG O2 Saturation Cancelled 99.5 H ABG Base Excess Cancelled 5.1 H Kobe Test Cancelled Pos VBG pH VBG pCO2 VBG pO2 VBG HCO3 VBG O2 Saturation VBG Base Excess Barometric Pressure Cancelled 726.7 Oxygen Given Cancelled 3% Sodium Potassium Chloride Carbon Dioxide Anion Gap BUN Creatinine Est Cr Clr Drug Dosing Est GFR ( Amer) Est GFR (Non-Af Amer) BUN/Creatinine Ratio Glucose Calcium Magnesium Total Bilirubin AST ALT Alkaline Phosphatase Total Protein Albumin Globulin Albumin/Globulin Ratio TSH Urine Color Dark Yellow Urine Appearance Clear Urine pH 5.0 Ur Specific [place] 1.023 Urine Protein 1+ H Urine Glucose (UA) Negative Urine Ketones Negative Urine Blood Negative Urine Nitrite Positive A Urine Bilirubin Negative Urine Urobilinogen Negative Ur Leukocyte Esterase Trace H Urine WBC (Auto) 1-5 Urine RBC (Auto) 0-4 U Hyaline Cast (Auto) 1-5 U Epithel Cells (Auto) 10-20 H Urine Bacteria (Auto) Negative COVID-19 Eval Order SARS-CoV-2, RNA, NAAT 08/08/20 08/08/20 19:53 19:53 WBC RBC Hgb Hct MCV MCH MCHC RDW Std Deviation RDW Coeff of Nhi Plt Count MPV Immature Gran % (Auto) Neut % (Auto) Lymph % (Auto) [place] % (Auto) Eos % (Auto) Baso % (Auto) Neut # (Auto) Lymph # (Auto) [place] # (Auto) Eos # (Auto) Baso # (Auto) Immature Gran # (Auto) ABG pH ABG pCO2 ABG pO2 ABG HCO3 ABG O2 Saturation ABG Base Excess Kobe Test VBG pH VBG pCO2 VBG pO2 VBG HCO3 VBG O2 Saturation VBG Base Excess Barometric Pressure Oxygen Given Sodium Potassium Chloride Carbon Dioxide Anion Gap BUN Creatinine Est Cr Clr Drug Dosing Est GFR ( Amer) Est GFR (Non-Af Amer) BUN/Creatinine Ratio Glucose Calcium Magnesium Total Bilirubin AST ALT Alkaline Phosphatase Total Protein Albumin Globulin Albumin/Globulin Ratio TSH Urine Color Urine Appearance Urine pH Ur Specific [place] Urine Protein Urine Glucose (UA) Urine Ketones Urine Blood Urine Nitrite Urine Bilirubin Urine Urobilinogen Ur Leukocyte Esterase Urine WBC (Auto) Urine RBC (Auto) U Hyaline Cast (Auto) U Epithel Cells (Auto) Urine Bacteria (Auto) COVID-19 Eval Order Covid19 [facility] SARS-CoV-2, RNA, NAAT Pending Diagnostic Findings Head CT and Cervical Spine CT: No acute process. No intracranial bleed. No fractures. Medications Administered Sodium Chloride (Nss 1000ml) 1,000 mls @ 125 mls/hr IV .Q8H RAFIA Stop: 08/08/20 22:14 Last Admin: 08/08/20 14:30 Dose: 125 mls/hr Documented by: [id number] Code Status & VTE Plan Code Status DNR/DNI VTE Prophylaxis Plan VTE Prophylaxis will be ordered: Yes Reason for no VTE drug order: Contraindicated Supervising Physician Co-Signing Physician Notes Patient seen and examined, chart reviewed, case discussed with Dr. Mann and I agree with his assessment and plan as above. Briefly, patient is a 80yo female presenting after an unwitnessed fall with head trauma. Patient on Eliquis. CT head and C-spine unremarkable. Patient is somnolent but arousable. No focal deficit. On exam she is somnolent, arousable, oriented to person and location, some confusion about date Skin - no rash HEENT - Nontender, no hematoma or laceration, PERRL, facial bones stable, no hemotympanum, neck supple with non-tender cervical spine Heart - +S1/S2, regular Lungs - CTA Abd - Distended, tympanic, mildly tender to palpation without rebound/guarding/peritoneal signs Ext - edema Labs and images reviewed Assessment/Plan: Monitor with neurochecks - minor head trauma on Eliquis therapy Treatment of UTI with Keflex Remainder of plan as above Resident Activity Tracking Resident Involvement: Resident Care Provided Care Provided: Adult Hospital Medicine (1) CHF (congestive heart failure) Heart failure chronicity: chronic Heart failure type: unspecified Qualified Code(s): I50.9 - Heart failure, unspecified
[2020-08-08] MEDS ORDERED: GLUCAGON FOR INJ 1 MG VIAL SQ PRN (22:36)
[2020-08-08] MEDS ORDERED: DEXTROSE 50% 50 ML SYRINGE IV PRN (22:36)
[2020-08-08] MEDS ORDERED: ACETAMINOPHEN 325 MG TAB PO PRN (22:36)
[2020-08-08] MEDS ORDERED: GLUCOSE 10 TABS/TUBE PO PRN (22:36)
[2020-08-08] MEDS ORDERED: GLUCOSE 40% GEL 15 GM TUBE PO PRN (22:36)
[2020-08-08] MEDS ORDERED: METOPROLOL TARTRATE 25 MG TAB PO SCH (22:36)
[2020-08-08] MEDS ORDERED: ALBUT/IPRATROP 3MG/0.5MG NEB 3 ML VIAL NEB PRN (22:36)
[2020-08-08] MEDS ORDERED: NITROGLYCERIN SL 0.4 MG/TAB TAB SL PRN (22:36)
[2020-08-08] MEDS ORDERED: POLYETHYLENE (MIRALAX) 17 GM PACK PO PRN (22:36)
[2020-08-08] MEDS ORDERED: ONDANSETRON INJ 2 MG/ML 2 ML VIAL IV STA (22:36)
[2020-08-08] MEDS ORDERED: CARBOHYDRATES FOR HYPOGLYCEMIA PO PRN (22:36)
[2020-08-08] MEDS ORDERED: MELATONIN 3 MG TAB PO PRN (22:36)
[2020-08-08] MEDS ORDERED: HEPARIN 100 UNIT/ML 5ML FLUSH FLUSH PRN (23:08)
--- NOTE | 2020-08-08 23:25 | Electrocardiogram Report ---
Test Reason : Blood Pressure : / mmHG Vent. Rate : 070 BPM Atrial Rate : 070 BPM P-R Int : 186 ms QRS Dur : 168 ms QT Int : 458 ms P-R-T Axes : 000 -82 103 degrees QTc Int : 494 ms AV dual-paced rhythm Abnormal ECG When compared with ECG of 16-JUL-2020 21:25, Premature ventricular complexes are no longer Present Vent. rate has decreased BY 6 BPM Confirmed by Gregory Watson ([id number]) on 08/08/2020 11:24:52 PM Referred By: REFERRED SELF Confirmed By:Gregory Watson
[2020-08-09] MEDS: FAMOTIDINE 20 MG TAB PO SCH ×3 (00:21→20:26)
[2020-08-09] MEDS: INSULIN ASPART 100 UNITS/ML 3 ML PEN SC SCH ×5 (00:24→20:26)
[2020-08-09] MEDS: INSULIN GLARGINE SOLOSTAR 100 UNITS/ML 3 ML PEN SC SCH ×3 (00:41→20:24)
--- NOTE | 2020-08-09 03:33 | Billing Data ---
Date of Service August 08, 2020 Coding Level of Care Code 67825 OBS Care - Level 3
[2020-08-09] MEDS: LEVOTHYROXINE SODIUM 25 MCG TABLET PO SCH (06:04)
--- NOTE | 2020-08-09 08:06 | XRay Report ---
KUB HISTORY: Abdominal distention COMPARISON: KUB 08/12/2018. FINDINGS: The bowel gas pattern is unremarkable. There are no dilated loops of small bowel to suggest an obstruction. No renal calculi. No ureteral calculi. No pneumoperitoneum or pneumatosis. Moderate well-formed stool within the colon. Scattered densities likely represent residual barium within a fe w colonic diverticula. Pacemaker wires are noted. The heart is enlarged. There is interstitial thicke lis and left lung airspace opacities. Left-sided Port-A-Cath terminates in the SVC. IMPRESSION: No evidence for bowel obstruction. Moderate well-formed stool within the colon. ACT 112: Negative or not required by law. Electronically signed by: Jeremy Moran M.D. 08/09/2020 8:05 AM
[2020-08-09] MEDS: ESCITALOPRAM OXALATE 10 MG TAB PO SCH (08:21)
[2020-08-09] MEDS: predniSONE 5 MG TAB PO SCH (08:21)
[2020-08-09] MEDS: FUROSEMIDE 40 MG TAB PO SCH (08:21)
[2020-08-09] MEDS: SENNA 8.6 MG TAB PO SCH (08:21)
[2020-08-09] MEDS: cephALEXin 250 MG CAP PO SCH ×3 (08:22→20:27)
--- NOTE | 2020-08-09 08:32 | Hospitalist Progress Note ---
Date of Service August 09, 2020 Assessment & Plan (1) CHI (closed head injury): Maureen Hagen is a 80-year-old female with past medical history chronic diastolic heart failure, cor pulmonale on chronic oxygen supplementation, coronary artery disease, paroxysmal A. fib on Eliquis status post pacemaker, hypertension, CKD Stage IV, insulin-dependent diabetes mellitus type 2, peripheral neuropathy, obstructive sleep apnea on CPAP, hypothyroidism, gout presents for CC of Fall. - Admission for Neuro checks as on Eliquis for reported head injury, NV checks q4H. - Neuro exam without concern for focal neuro deficits or signs of brain bleed. No Bleed on CT Head. - Will hold Eliquis and hold anti-platelet Plavix. - No signs of acute injury on physical exam. - Tylenol for pain PRN (2) Fall: Reported mechanical. Suspect with hx of encephalopathy, on busprione, hypercapnic, declining strength from deconditioning at home. Only noted to have head injury with neck pain for ED staff. Negative CT Neck for fx, Negative CT head for acute process Fall precautions PT/OT evaluation with continued ongoing care and considerations for improvement in hospital. Pt prefers in home treatment (3) Acute UTI (urinary tract infection): Positive Nitrates in ED on UA, started on abx. Previous positive culture deleon sensitive Not septic or with complaints will treat with Keflex 500mg TID. 7 day course. (4) Hypercarbia: Labs on presentation consistent with Hypercarbia. Chronic. Most likely contributing to AMS/Falls. (5) Chronic kidney disease, stage IV (severe): Creat here appears to be at baseline compared to prior labs. Renal dosing of meds as appropriate ongoing improvement to 1.55 today (6) Hypothyroidism: c/w home Synthroid 25mcg PO (7) Coronary artery disease: noted in hx, hold home antiplatelets. (8) Paroxysmal atrial tachycardia: Will have to hold home eliquis Continue with home metoprolol admit to tele (9) CHF (congestive heart failure): c/w home Lasix 40mg PO qAM (10) Chronic respiratory failure with hypoxia and hypercapnia: continue with home O2, signs of hypercapnia on labs. Continue with CPAP. (11) HTN (hypertension): change dosing metoprolol to 25 cyndee po bid (12) Gout: Hold home Allopurinol, in attempt to limit polypharmacy, not acutely needed in current observation setting. (13) Diabetic polyneuropathy: Noted to be uncontrolled, Will continue prior Lantus order of 22 units SQ BID. SS Novolog with loose control in current setting of head injury. (14) Hallucinations: sleepy currently, noted deliirum with Hallucinations and hx of dementia from previous visit. Will hold home buspirone for now but low threshold to start for agitation during admission. no reported episodes (15) Dyslipidemia: Noted allergies to statins Admission and Anticipated Discharge Date Admission Date: August 08, 2020 Subjective No new symptoms overnight. Her headache has resolved. No change in vision or hearing. She tolerated breakfast with no difficulties. No new abdominal discomfort or n/v. Multiple falls with recent d/c from Rehab. She wants to get back home vs Rehab denies new pain since admission Review of Systems Review of Systems: All systems reviewed & are unremarkable except as noted in Subjective Physical Exam Physical Exam: Constitutional: WD/WN, vitals as above Respiratory: Effort normal, CTA B/L CV: RRR, no murmur, no edema Abdomen: normal bowel sounds, soft, nontender, no hepatosplenomegaly Neurologic:grossly intact Results & Data Results & Data ([facility]) Vital Signs (Past 12 Hours) Vital Signs Temp Pulse Pulse Resp BP BP BP 08/09/20 07:45 36.8 C 69 20 168/70 H 08/09/20 04:45 36.4 C L 72 20 150/74 H 08/08/20 23:00 36.7 C 88 18 136/75 08/08/20 22:45 36.5 C 71 18 181/73 H 08/08/20 21:30 70 15 159/89 H 08/08/20 21:00 70 19 159/79 H Pulse Ox 08/09/20 07:45 96 08/09/20 04:45 92 08/08/20 23:00 92 08/08/20 22:45 93 08/08/20 21:30 08/08/20 21:00 Laboratory Results Laboratory Results - last 24 hr 08/08/20 08/08/20 08/08/20 14:35 14:35 14:35 WBC 7.57 RBC 3.90 L Hgb 11.4 L Hct 38.0 MCV 97.4 MCH 29.2 MCHC 30.0 L RDW Std Deviation 65.1 H RDW Coeff of Nhi 18.6 H Plt Count 187 MPV 10.2 Immature Gran % (Auto) 1.1 Neut % (Auto) 80.5 Lymph % (Auto) 11.1 [place] % (Auto) 4.6 Eos % (Auto) 2.4 Baso % (Auto) 0.3 Neut # (Auto) 6.10 Lymph # (Auto) 0.84 L [place] # (Auto) 0.35 Eos # (Auto) 0.18 Baso # (Auto) 0.02 Immature Gran # (Auto) 0.08 H ABG pH ABG pCO2 ABG pO2 ABG HCO3 ABG O2 Saturation ABG Base Excess Kobe Test VBG pH 7.33 L VBG pCO2 66 H VBG pO2 53 VBG HCO3 34 VBG O2 Saturation 75.3 VBG Base Excess 6.3 Barometric Pressure 727.1 Oxygen Given Sodium 140 Potassium 4.6 Chloride 103 Carbon Dioxide 33 H Anion Gap 4.0 BUN 39 H Creatinine 1.68 H Est Cr Clr Drug Dosing 26.6 Est GFR ( Amer) 33.1 Est GFR (Non-Af Amer) 28.6 BUN/Creatinine Ratio 23.0 H Glucose 93 POC Glucose Calcium 9.0 Magnesium 2.3 Total Bilirubin 0.6 AST 38 H ALT 49 Alkaline Phosphatase 82 Total Protein 6.7 Albumin 3.2 L Globulin 3.5 Albumin/Globulin Ratio 0.9 TSH 3.010 Urine Color Urine Appearance Urine pH Ur Specific Geys[place] Urine Protein Urine Glucose (UA) Urine Ketones Urine Blood Urine Nitrite Urine Bilirubin Urine Urobilinogen Ur Leukocyte Esterase Urine WBC (Auto) Urine RBC (Auto) U Hyaline Cast (Auto) U Epithel Cells (Auto) Urine Bacteria (Auto) COVID-19 Eval Order SARS-CoV-2, RNA, NAAT 08/08/20 08/08/20 08/08/20 16:13 18:15 19:14 WBC RBC Hgb Hct MCV MCH MCHC RDW Std Deviation RDW Coeff of Nhi Plt Count MPV Immature Gran % (Auto) Neut % (Auto) Lymph % (Auto) [place] % (Auto) Eos % (Auto) Baso % (Auto) Neut # (Auto) Lymph # (Auto) [place] # (Auto) Eos # (Auto) Baso # (Auto) Immature Gran # (Auto) ABG pH Cancelled 7.34 L ABG pCO2 Cancelled 61 H ABG pO2 Cancelled 200 H ABG HCO3 Cancelled 32 H ABG O2 Saturation Cancelled 99.5 H ABG Base Excess Cancelled 5.1 H Kobe Test Cancelled Pos VBG pH VBG pCO2 VBG pO2 VBG HCO3 VBG O2 Saturation VBG Base Excess Barometric Pressure Cancelled 726.7 Oxygen Given Cancelled 3% Sodium Potassium Chloride Carbon Dioxide Anion Gap BUN Creatinine Est Cr Clr Drug Dosing Est GFR ( Amer) Est GFR (Non-Af Amer) BUN/Creatinine Ratio Glucose POC Glucose Calcium Magnesium Total Bilirubin AST ALT Alkaline Phosphatase Total Protein Albumin Globulin Albumin/Globulin Ratio TSH Urine Color Dark Yellow Urine Appearance Clear Urine pH 5.0 Ur Specific [place] 1.023 Urine Protein 1+ H Urine Glucose (UA) Negative Urine Ketones Negative Urine Blood Negative Urine Nitrite Positive A Urine Bilirubin Negative Urine Urobilinogen Negative Ur Leukocyte Esterase Trace H Urine WBC (Auto) 1-5 Urine RBC (Auto) 0-4 U Hyaline Cast (Auto) 1-5 U Epithel Cells (Auto) 10-20 H Urine Bacteria (Auto) Negative COVID-19 Eval Order SARS-CoV-2, RNA, NAAT 08/08/20 08/08/20 08/08/20 19:53 19:53 23:49 WBC RBC Hgb Hct MCV MCH MCHC RDW Std Deviation RDW Coeff of Nhi Plt Count MPV Immature Gran % (Auto) Neut % (Auto) Lymph % (Auto) [place] % (Auto) Eos % (Auto) Baso % (Auto) Neut # (Auto) Lymph # (Auto) [place] # (Auto) Eos # (Auto) Baso # (Auto) Immature Gran # (Auto) ABG pH ABG pCO2 ABG pO2 ABG HCO3 ABG O2 Saturation ABG Base Excess Kobe Test VBG pH VBG pCO2 VBG pO2 VBG HCO3 VBG O2 Saturation VBG Base Excess Barometric Pressure Oxygen Given Sodium Potassium Chloride Carbon Dioxide Anion Gap BUN Creatinine Est Cr Clr Drug Dosing Est GFR ( Amer) Est GFR (Non-Af Amer) BUN/Creatinine Ratio Glucose POC Glucose 84 Calcium Magnesium Total Bilirubin AST ALT Alkaline Phosphatase Total Protein Albumin Globulin Albumin/Globulin Ratio TSH Urine Color Urine Appearance Urine pH Ur Specific Ge[place] Urine Protein Urine Glucose (UA) Urine Ketones Urine Blood Urine Nitrite Urine Bilirubin Urine Urobilinogen Ur Leukocyte Esterase Urine WBC (Auto) Urine RBC (Auto) U Hyaline Cast (Auto) U Epithel Cells (Auto) Urine Bacteria (Auto) COVID-19 Eval [facility] [facility] [place], [place], NAAT NEGATIVE 08/09/20 07:29 WBC RBC Hgb Hct MCV MCH MCHC RDW Std Deviation RDW Coeff of Nhi Plt Count MPV Immature Gran % (Auto) Neut % (Auto) Lymph % (Auto) [place] % (Auto) Eos % (Auto) Baso % (Auto) Neut # (Auto) Lymph # (Auto) [place] # (Auto) Eos # (Auto) Baso # (Auto) Immature Gran # (Auto) ABG pH ABG pCO2 ABG pO2 ABG HCO3 ABG O2 Saturation ABG Base Excess Kobe Test VBG pH VBG pCO2 VBG pO2 VBG HCO3 VBG O2 Saturation VBG Base Excess Barometric Pressure Oxygen Given Sodium Potassium Chloride Carbon Dioxide Anion Gap BUN Creatinine Est Cr Clr Drug Dosing Est GFR ( Amer) Est GFR (Non-Af Amer) BUN/Creatinine Ratio Glucose POC Glucose 111 H Calcium Magnesium Total Bilirubin AST ALT Alkaline Phosphatase Total Protein Albumin Globulin Albumin/Globulin Ratio TSH Urine Color Urine Appearance Urine pH Ur Specific Ge[place] Urine Protein Urine Glucose (UA) Urine Ketones Urine Blood Urine Nitrite Urine Bilirubin Urine Urobilinogen Ur Leukocyte Esterase Urine WBC (Auto) Urine RBC (Auto) U Hyaline Cast (Auto) U Epithel Cells (Auto) Urine Bacteria (Auto) COVID-19 Eval Order SARS-CoV-2, RNA, NAAT Medications Administered Current Inpatient Medications Acetaminophen (Acetaminophen 325 Mg Tab) 650 mg PO Q4H PRN PRN Reason: fever or pain Stop: 09/07/20 22:35 Albuterol (Albut/Ipratrop 3mg/0.5mg Neb 3 Ml Vial) 3 ml NEB QIDR PRN PRN Reason: shortness of breath or wheezing Stop: 09/07/20 22:35 Cephalexin HCl (Cephalexin 250 Mg Cap) 250 mg PO TID RAFIA; Protocol Stop: 08/14/20 08:59 Last Admin: 08/09/20 08:22 Dose: 250 mg Documented by: Dextrose (Dextrose 50% 50 Ml Syringe) 25 - 50 ml IV UD PRN; Protocol PRN Reason: Hypoglycemia Protocol Stop: 09/07/20 22:35 Escitalopram Oxalate (Escitalopram Oxalate 10 Mg Tab) 5 mg PO QAM RAFIA Stop: 09/08/20 08:59 Last Admin: 08/09/20 08:21 Dose: 5 mg Documented by: Famotidine (Famotidine 20 Mg Tab) 20 mg PO BID RAFIA Stop: 09/07/20 22:35 Last Admin: 08/09/20 08:22 Dose: 20 mg Documented by: Furosemide (Furosemide 40 Mg Tab) 40 mg PO QAM RAFIA Stop: 09/08/20 08:59 Last Admin: 08/09/20 08:21 Dose: 40 mg Documented by: Glucagon (Glucagon For Inj 1 Mg Vial) 1 mg SQ UD PRN; Protocol PRN Reason: Hypoglycemia Protocol Stop: 09/07/20 22:35 Glucose (Glucose 10 Tabs/Tube) 4 - 8 tabs PO UD PRN; Protocol PRN Reason: Hypoglycemia Protocol Stop: 09/07/20 22:35 Glucose (Glucose 40% Gel 15 Gm Tube) 15 - 30 gm PO UD PRN; Protocol PRN Reason: Hypoglycemia Protocol Stop: 09/07/20 22:35 Heparin Sodium (Porcine) (Heparin 100 Unit/Ml 5ml Flush) 5 ml FLUSH PRN PRN PRN Reason: Flush Stop: 09/07/20 23:07 Insulin Aspart (Insulin Aspart 100 Units/Ml 3 Ml Pen) 0 units SC ACHS [facility] Stop: 09/07/20 22:35 Last Admin: 08/09/20 08:24 Dose: 1 units Documented by: Insulin Glargine (Insulin Glargine Solostar 100 Units/Ml 3 Ml Pen) 22 units SC BID [facility] Stop: 09/07/20 22:35 Last Admin: 08/09/20 08:26 Dose: 22 units Documented by: Levothyroxine Sodium (Levothyroxine Sodium 25 Mcg Tablet) 25 mcg PO DAILYBB RAFIA Stop: 09/08/20 06:29 Last Admin: 08/09/20 06:04 Dose: 25 mcg Documented by: Melatonin (Melatonin 3 Mg Tab) 3 mg PO HS PRN PRN Reason: Sleep Stop: 09/07/20 22:35 Metoprolol Tartrate (Metoprolol Tartrate 25 Mg Tab) 25 mg PO PM RAFIA Stop: 09/07/20 22:35 Last Admin: 08/09/20 00:25 Dose: Not Given Documented by: Miscellaneous (Carbohydrates For Hypoglycemia ) 15 - 30 gm PO UD PRN PRN Reason: Hypoglycemia Protocol Stop: 09/07/20 22:35 Nitroglycerin (Nitroglycerin Sl 0.4 Mg/Tab Tab) 0.4 mg SL Q5M PRN PRN Reason: Chest Pain Stop: 09/07/20 22:35 Polyethylene Glycol (Polyethylene (Miralax) 17 Gm Pack) 17 gm PO DAILY PRN PRN Reason: Constipation Stop: 09/07/20 22:35 Prednisone (Prednisone 5 Mg Tab) 5 mg PO DAILY [facility] Stop: 09/08/20 08:59 Last Admin: 08/09/20 08:21 Dose: 5 mg Documented by: Sennosides (Senna 8.6 Mg Tab) 8.6 mg PO QAM RAFIA Stop: 09/08/20 08:59 Last Admin: 08/09/20 08:21 Dose: 8.6 mg Documented by: PG Care Time/CCT Total # of Minutes Spent Total Time Spent with Patient: Total time spent is greater than 50% in coordination of care (as documented) at patient's floor/unit and/or counseling patient: Coding Level of Care Code 82966 Subseq Hosp Care Lvl 2 Diagnoses CHI (closed head injury) S09.90XA Fall W19.XXXA Acute UTI (urinary tract infection) N39.0 Hypercarbia R06.89 Chronic kidney disease, stage IV (severe) N18.4 Hypothyroidism E03.9 Coronary artery disease I25.10 Paroxysmal atrial tachycardia I47.1 CHF (congestive heart failure) I50.9 Heart failure chronicity: chronic Heart failure type: unspecified Chronic respiratory failure with hypoxia and hypercapnia J96.11; J96.12 HTN (hypertension) I10 Hypertension type: essential hypertension Gout M10.9 Diabetic polyneuropathy E11.42 Hallucinations R44.3 Dyslipidemia E78.5 (1) CHF (congestive heart failure) Heart failure chronicity: chronic Heart failure type: unspecified Qualified Code(s): I50.9 - Heart failure, unspecified (2) HTN (hypertension) Hypertension type: essential hypertension Qualified Code(s): I10 - Essential (primary) hypertension
[2020-08-09 08:52] LABS: Basophils # (auto) 0.02 K/uL (0-0.2); Basophils % (auto) 0.3 %; Eosinophils # (auto) 0.17 K/uL (0-0.5); Eosinophils % (auto) 2.3 %; Hematocrit (blood only) 35.8 % (37-47); Hemoglobin 10.7 g/dL (12.0-16.0); Immature Granulocytes # (auto) 0.03 K/uL (0.00-0.02); Immature Granulocytes % (auto) 0.4 %; Lymphocytes # (auto) 0.59 K/uL (1.2-3.4); Mean Corpuscular Hemoglobin 29.3 pg (25-34); Mean Corpuscular Hgb Conc 29.9 g/dL (32-36); Mean Corpuscular Volume 98.1 fL (80-100); Mean Platelet Volume 11.3 fL (7.4-10.4); Monocytes # (auto) 0.43 K/uL (0.11-0.59); Monocytes % (auto) 5.9 %; Neutrophils % (auto) 83.1 %; Nucleated RBC # (auto) 0.02 K/uL (0-0); Nucleated RBC % (auto) 0.3 %; Platelet Count 186 K/uL (130-400); RDW Coefficient of Variation 18.6 % (11.5-14.5); RDW Standard Deviation 66.1 fL (36.4-46.3); Red Blood Count 3.65 M/uL (4.2-5.4); White Blood Count 7.34 K/uL (4.8-10.8)
[2020-08-09 09:32] LABS: BUN Creatinine Ratio 19.9 (10-20); Calcium 8.6 mg/dl (8.5-10.1); Creatinine Clr Calc Pharmacy 28.2 ml/min; Est GFR (African American) 36.5; Est GFR (Non-African American) 31.5; Potassium 4.6 mmol/L (3.5-5.1)
--- NOTE | 2020-08-09 19:49 | XRay Report ---
XR hip IRENE 2v w pelvis CLINICAL HISTORY: pain, post fall COMPARISON STUDY: CT of the abdomen and pelvis September 08, 2019. FINDINGS: A few radiodensities within the pelvis are incidentally noted. The sacroiliac joints and sy mphysis pubis are intact. No acute fracture is identified within the pelvis or hips. There is mild dano int space narrowing of both hips. There is moderate osteophytosis of the left hip and mild osteophyto sis of the right hip. IMPRESSION: No acute fracture within the pelvis or hips. ACT 112: Negative or not required by law. Electronically signed by: Jose Mcgregor M.D. 08/09/2020 7:48 PM
[2020-08-09] MEDS: METOPROLOL TARTRATE 25 MG TAB PO SCH (20:27)
[2020-08-10] MEDS: LEVOTHYROXINE SODIUM 25 MCG TABLET PO SCH (06:11)
[2020-08-10] MEDS: METOPROLOL TARTRATE 25 MG TAB PO SCH (08:46)
[2020-08-10] MEDS: FAMOTIDINE 20 MG TAB PO SCH (08:46)
[2020-08-10] MEDS: ESCITALOPRAM OXALATE 10 MG TAB PO SCH (08:47)
[2020-08-10] MEDS: predniSONE 5 MG TAB PO SCH (08:47)
[2020-08-10] MEDS: SENNA 8.6 MG TAB PO SCH (08:47)
[2020-08-10] MEDS: cephALEXin 250 MG CAP PO SCH ×2 (08:47→13:53)
[2020-08-10] MEDS: INSULIN GLARGINE SOLOSTAR 100 UNITS/ML 3 ML PEN SC SCH (08:48)
[2020-08-10] MEDS: FUROSEMIDE 40 MG TAB PO SCH (08:48)
[2020-08-10] MEDS: INSULIN ASPART 100 UNITS/ML 3 ML PEN SC SCH ×2 (08:51→12:44)
--- NOTE | 2020-08-10 12:59 | Discharge Summary ---
Date of Service August 10, 2020 Admission HPI Per Admitting Provider Caveat: History Limited by - Dementia/AMS Maureen Hagen is a 80-year-old female with past medical history chronic diastolic heart failure, cor pulmonale on chronic oxygen supplementation, coronary artery disease, paroxysmal A. fib on Eliquis status post pacemaker, hypertension, CKD Stage IV, insulin-dependent diabetes mellitus type 2, peripheral neuropathy, obstructive sleep apnea on CPAP, hypothyroidism, gout presents for CC of Fall. She cannot recall events leading to or reason why in hospital. Reported history which was given earlier to ED staff, Maureen had a mechanical fall that was accidental. She backwards and struck the back of her head. Currently she has no headache, no neck pain, no abdominal pain, no chest. She is on O2 supplemental at home and reports no worsening shortness of breath. She states that she has been dizzy lately. Her only other complaint is weakness over the past year. She recently was hospitalized here from 07/17-07/24 with discharge to inpatient rehab. She states that she was released possible earlier this week. She has no complaints of focal weakness or numbness. She was noted to be sleepy by staff. She does not she has had difficulty with medication compliance at home and missed dosage of medications, but she cannot recall more details. Admission Exam Per Admitting Provider Constitutional: + obese, cooperative and comfortable; not in distress Eyes: PERRL; no conjunctival abnormality and no EOM movement deficit ENMT: external ear and nose normal, oropharynx normal Neck: normal visual inspection and trachea midline Respiratory: no respiratory distress Auscultation: + crackles (mild expiratory at base bilaterally) Cardiovascular: Rate/Rhythm: regular rate and regular rhythm Gastrointestinal (Abdomen): Percussion/Palpation: abdomen soft; abdomen nontender, no guarding and abdomen not rigid Musculoskeletal: Head/Neck/Chest: normocephalic and head atraumatic E xtremities: strength 5/5 throughout Shoulder: no deformity and no joint line tenderness Hip: no joint line tenderness Knee: no deformity and no joint line tenderness Ankle: no deformity and no joint line tenderness (ankle) Skin: no rashes, warm and dry Neurologic: CN's II-XI intact bilaterally and moves all extremities; no focal motor deficits Speech / Cognition: normal speech Cranial Nerves: EOM intact bilaterally Psychiatric: oriented to self, knows she is in a hospital, oriented to time, no oriented to events. Is sleepy but arouses to voice. Answers questions appropriately. Principal Diagnosis Closed head injury, fall Discharge Exam Constitutional WD/WN, vitals as above no acute distress Respiratory normal respiratory effort, lungs clear to auscultation Auscultation: no crackles, no rales, no rhonchi and no wheezes Cardiovascular RRR, no murmur, no edema Heart Sounds: normal S1 and normal S2 Gastrointestinal (Abdomen) normal bowel sounds, soft, nontender, no hepatosplenomegaly Musculoskeletal Extremities: no cyanosis and no clubbing Muscle strength 4/5 at BLE Skin no rashes, warm and dry Psychiatric A+Ox3, euthymic affect Discharge Data Allergies Allergy/AdvReac Type Severity Reaction Status Date / Time eptifibatide Allergy Severe ANAPHYLAXIS Verified 08/08/20 20:46 hornet venom Allergy Severe WASP VENOM Verified 08/08/20 20:46 PROTEIN-ANAPHYLAXIS levofloxacin [From Levaquin] Allergy Severe Hives Verified 08/08/20 20:46 atorvastatin Allergy Intermediate MUSCLE PAIN Verified 08/08/20 20:46 ezetimibe Allergy Intermediate MUSCLE PAIN Verified 08/08/20 20:46 simvastatin Allergy Intermediate MUSCLE PAIN Verified 08/08/20 20:46 amlodipine AdvReac Severe Nausea Verified 08/08/20 20:46 azithromycin AdvReac Intermediate Palpitation Verified 08/08/20 20:46 s cortisone AdvReac Intermediate INCREASES Verified 08/08/20 20:46 SUGAR AND VOMITING? hydralazine AdvReac Intermediate VOMITING Verified 08/08/20 20:46 ibuprofen AdvReac Intermediate VOMITING Verified 08/08/20 20:47 AND DIARRHEA iodine AdvReac Intermediate SHELLFISH Verified 08/08/20 20:47 - VOMITING shellfish derived AdvReac Intermediate VOMITING Verified 08/08/20 20:47 Sulfa (Sulfonamide AdvReac Intermediate VOMITING Verified 08/08/20 20:47 Antibiotics) warfarin AdvReac Intermediate EXTREME Verified 08/08/20 20:47 BLEEDING TIMES codeine AdvReac Mild VOMITING Verified 08/08/20 20:47 gemfibrozil AdvReac Mild NAUSEA Verified 08/08/20 20:47 meperidine AdvReac Mild VOMITING Verified 08/08/20 20:47 ondansetron AdvReac Mild vomiting Verified 08/08/20 20:47 ranitidine [From Zantac] AdvReac Mild dyspepsia Verified 07/16/20 23:58 Consultations 08/08/20 19:48 ED Decision to Admit Stat Ordered Studies 08/08/20 14:12 CT head/brain wo con Stat 08/08/20 14:15 CT cervical spine wo con Stat Hospital Course (1) CHI (closed head injury): Maureen Hagen is a 80-year-old female with past medical history chronic diastolic heart failure, cor pulmonale on chronic oxygen supplementation, coronary artery disease, paroxysmal A. fib on Eliquis status post pacemaker, hypertension, CKD Stage IV, insulin-dependent diabetes mellitus type 2, peripheral neuropathy, obstructive sleep apnea on CPAP, hypothyroidism, gout who presented for CC of Fall. The cause of her fall was not entirely clear as she is unable to remember much. The patient described the fall as happening while she was heavily asleep on a chair, not wearing CPAP, and was unarousable when found by her . As such, it is possible that she may have been hypercarbic in the setting of her JANICE. Imaging of head found no acute brain bleed, there were no focal neurological deficits, and she worked with PT to an adequate degree. Eliquis and Plavix were both held while admitted due to concerns for bleeds but all work-up resulted negative and medications can be resumed as usual after discharge. Incidentally, a UA was positive for nitrates while in the ED and she was treated with Keflex while admitted. However urine culture showed no growth and so antibiotics were discontinued. All her other chronic problems were stable during admission. As she remained medically stable, workup was negative, and had no further issues during hospitalization, she was discharged home with instructions to follow-up with her PCP. (2) Fall: (3) Acute UTI (urinary tract infection): (4) Hypercarbia: (5) Chronic kidney disease, stage IV (severe): (6) Hypothyroidism: (7) Coronary artery disease: (8) Paroxysmal atrial tachycardia: (9) CHF (congestive heart failure): (10) Chronic respiratory failure with hypoxia and hypercapnia: (11) Gout: (12) Diabetic polyneuropathy: (13) Hallucinations: (14) Dyslipidemia: Total Time Total Time Spent Total Time Spent (In Minutes): see Attending attestation Discharge Plan Discharge Items Patient Disposition: Home - Home Health Services Reason For Visit: FALL Discharge Diagnosis: Fall Activity: Per Instructions section Non-emergency contact: Primary Care Provider Call non-emergency contact if: your symptoms worsen Follow-up/Referrals: Lizet Jeter DO [Primary Care Provider] - Diet: Heart Healthy Addtl Attending Provider Instructions: You were admitted to [facility] for a fall with a head injury. You were evaluated with imaging and no fractures or bleeds in your head were seen. While here, you were evaluated by physical therapy and were found to have adequate strength and ambulation. The cause of your fall is unclear but it is possible that it could have been due to carbon dioxide building up in your brain from not breathing adequately in the setting of your sleep apnea. It is very important that you use your CPAP machine as usual to avoid this possibility in the future. Please follow up with your primary care provider to discuss your hospitalization and management of your chronic conditions. Pending Studies at Discharge: No Stand-Alone Forms: My [employer], Smoking Cessation Medications and DC Order Prescriptions: Continued nitroglycerin 0.4 mg tablet, sublingual 0.4 mg SL Q5M PRN (Reason: Chest Pain) Qty: 25 RF: 0 sennosides [Senokot] 8.6 mg tablet 8.6 mg PO QAM RF: 0 Eliquis 5 mg tablet 5 mg PO BID Qty: 60 RF: 11 multivitamin Tablet 1 tab PO QAM RF: 0 ascorbic acid (vitamin C) [Vitamin C] 1,000 mg Tablet 1,000 mg PO QAM RF: 0 ergocalciferol (vitamin D2) [Vitamin D2] 50,000 unit Capsule 50,000 unit PO WK RF: 0 levothyroxine [Synthroid] 25 mcg tablet 25 mcg PO QAM RF: 0 prednisone 5 mg tablet 5 mg PO DAILY RF: 0 clopidogrel 75 mg tablet 75 mg PO DAILY RF: 0 escitalopram oxalate 5 mg tablet 5 mg PO QAM RF: 0 Basaglar KwikPen U-100 Insulin 100 unit/mL (3 mL) insulin pen 22 units subcut BID Qty: 0 RF: 0 acetaminophen [Tylenol] 325 mg Tablet 325 mg PO Q4 PRN (Reason: Pain) RF: 0 potassium chloride 10 mEq tablet extended release 10 meq PO BID RF: 0 allopurinol 100 mg tablet 200 mg PO DAILY RF: 0 furosemide 20 mg tablet 20 mg PO DAILY RF: 0 Basaglar KwikPen U-100 Insulin 100 unit/mL (3 mL) Insulin Pen 22 unit SUBCUT BID RF: 0 buspirone 10 mg tablet 10 mg PO BID RF: 0 ipratropium-albuterol 0.5 mg-3 mg(2.5 mg base)/3 mL Solution For Nebulization 3 ml NEB QIDR PRN (Reason: shortness of breath or wheezing) Qty: 90 RF: 0 sodium chloride [Saline Nasal Mist] 0.65 % aerosol,spray 2 sprays INTNAS QID PRN (Reason: nasal congestion or dry nose) Qty: 45 RF: 0 metoprolol tartrate 50 mg Tablet 25 mg PO PM Qty: 30 RF: 0 Discharge Orders: Discharge Order (Routine); Ordered 08/10/20 Ordered By: Allan Killian Admission Data Admit Date/Time: 08/08/20 22:21 Attending Provider: Mirna Hankins Admit Provider: Eduar Mann Primary Care Provider: Lizet Jeter Other Providers: Mariely Hinojosa ; [facility] ; [place] Other Interventions: Discharge Summary Assessment (RN) Last Done: 08/10/20 13:58 Supervising Physician Co-Signing Physician Notes Resident Physician Supervision Note: I independently interviewed and examined the patient and verified the [place] history and physical, reviewed labs and image studies, discussed the case with the resident Dr. Salamanca and agree with the findings and care plan. Resident Activity Tracking Resident Involvement: Resident Care Provided Care Provided: Adult Hospital Medicine
== END 2020-08-10 15:20 | disposition home health service (06) ==
LOC: ED 13:24 → 2N 13:24 → SUATTDRO 22:21

== ENCOUNTER 2020-09-19 03:02 | Inpatient (IN) ==
[2020-09-19 04:27] LABS: Basophils # (auto) 0.02 K/uL (0-0.2); Basophils % (auto) 0.4 %; Eosinophils # (auto) 0.19 K/uL (0-0.5); Eosinophils % (auto) 3.7 %; Hematocrit (blood only) 33.4 % (37-47); Hemoglobin 9.7 g/dL (12.0-16.0); Immature Granulocytes # (auto) 0.04 K/uL (0.00-0.02); Immature Granulocytes % (auto) 0.8 %; Lymphocytes % (auto) 13.6 %; Mean Corpuscular Hemoglobin 28.6 pg (25-34); Mean Corpuscular Volume 98.5 fL (80-100); Mean Platelet Volume 12.8 fL (7.4-10.4); Monocytes # (auto) 0.53 K/uL (0.11-0.59); Monocytes % (auto) 10.3 %; Neutrophils # (auto) 3.68 K/uL (1.4-6.5); Neutrophils % (auto) 71.2 %; Nucleated RBC # (auto) 0.04 K/uL (0-0); Nucleated RBC % (auto) 0.9 %; Platelet Count 153 K/uL (130-400); RDW Coefficient of Variation 19.6 % (11.5-14.5); RDW Standard Deviation 69.3 fL (36.4-46.3); Red Blood Count 3.39 M/uL (4.2-5.4); White Blood Count 5.16 K/uL (4.8-10.8)
--- NOTE | 2020-09-19 04:37 | Emergency Department Note ---
History of Present Illness General Chief complaint: Illness Stated complaint: ILLNESS/ALTERED MENTAL STATUS/SHORT OF BREATH Time Seen by Provider: 09/19/20 03:08 History of Present Illness This is a 80-year-old female presenting to the emergency department for evaluation of worsening shortness of breath and confusion over the past week. The patient has extensive past medical history including chronic diastolic heart failure, cor pulmonale, Severe CAD with Cath and Stenting 06/2018 with Hillary Perez on Eliquis with dual pacemaker, hypertension, diabetes, chronic kidney disease, and chronic respiratory failure s/p lobectomy. The patient was at home tonight and her symptoms seemed to worsen, prompting her to contact EMS. Upon arrival the patient states that she feels more short of breath than normal. She does wear oxygen at all times and reportedly has been adherent with wearing her oxygen. She does not report any new medication changes. No fevers or chills. She is not describing distinct chest or abdominal pains. The patient has been admitted to this facility multiple times in the past few months for breathing difficulties, sepsis, and general physical decline. The patient rates her current discomfort an 8/10. Home Medications Medication Instructions Recorded Confirmed Type ascorbic acid (vitamin C) [Vitamin 1,000 mg PO QAM 06/20/18 09/19/20 History C] ergocalciferol (vitamin D2) 50,000 unit PO WK 06/20/18 09/19/20 History [Vitamin D2] multivitamin 1 tab PO QAM 06/20/18 09/19/20 History nitroglycerin 0.4 mg sublingual 0.4 mg SL Q5M PRN #25 tab 02/26/19 09/19/20 History tablet levothyroxine [Synthroid] 25 mcg PO QAM 06/04/19 09/19/20 History buspirone 10 mg PO BID 07/12/19 09/19/20 History ipratropium-albuterol 3 ml NEB QIDR PRN #90 ml 07/17/19 09/19/20 Rx metoprolol tartrate 25 mg PO PM #30 tab 05/20/20 09/19/20 Rx sennosides 8.6 mg tablet 8.6 mg PO QAM tab 07/07/20 09/19/20 History escitalopram oxalate 5 mg PO QAM 07/20/20 09/19/20 History allopurinol 200 mg PO DAILY 08/08/20 09/19/20 History furosemide 20 mg PO DAILY 08/08/20 09/19/20 History potassium chloride 10 meq PO BID 08/08/20 09/19/20 History pregabalin 200 mg capsule 200 mg PO BID 08/14/20 09/19/20 History Basaglalf Moses U-100 Insulin 30 units SUBCUT BID 08/22/20 09/19/20 History prednisone 5 mg tablet 2.5 mg PO DAILY tab 08/22/20 09/19/20 History apixaban 5 mg tablet 5 mg PO BID #60 tab 09/18/20 09/19/20 Rx insulin lispro [Humalog KwikPen See Rx Instructions .ROUTE .COMPLEX 09/19/20 09/19/20 History Insulin] Allergies Allergy/AdvReac Type Severity Reaction Status Date / Time eptifibatide Allergy Severe ANAPHYLAXIS Verified 09/19/20 03:43 hornet venom Allergy Severe WASP VENOM Verified 09/19/20 03:43 PROTEIN-ANAPHYLAXIS levofloxacin [From Levaquin] Allergy Severe Hives Verified 09/19/20 03:43 atorvastatin Allergy Intermediate MUSCLE PAIN Verified 09/19/20 03:43 ezetimibe Allergy Intermediate MUSCLE PAIN Verified 09/19/20 03:43 simvastatin Allergy Intermediate MUSCLE PAIN Verified 09/19/20 03:43 amlodipine AdvReac Severe Nausea Verified 09/19/20 03:43 azithromycin AdvReac Intermediate Palpitation Verified 09/19/20 03:43 s cortisone AdvReac Intermediate INCREASES Verified 09/19/20 03:43 SUGAR AND VOMITING? hydralazine AdvReac Intermediate VOMITING Verified 09/19/20 03:43 ibuprofen AdvReac Intermediate VOMITING Verified 09/19/20 03:43 AND DIARRHEA iodine AdvReac Intermediate SHELLFISH Verified 09/19/20 03:43 - VOMITING shellfish derived AdvReac Intermediate VOMITING Verified 09/19/20 03:43 Sulfa (Sulfonamide AdvReac Intermediate VOMITING Verified 09/19/20 03:43 Antibiotics) warfarin AdvReac Intermediate EXTREME Verified 09/19/20 03:43 BLEEDING TIMES codeine AdvReac Mild VOMITING Verified 09/19/20 03:43 gemfibrozil AdvReac Mild NAUSEA Verified 09/19/20 03:43 meperidine AdvReac Mild VOMITING Verified 09/19/20 03:43 ondansetron AdvReac Mild vomiting Verified 09/19/20 03:43 ranitidine [From Zantac] AdvReac Mild dyspepsia Verified 09/19/20 03:43 Past Med/Surg History Medical History Acute on chronic diastolic heart failure Acute UTI (urinary tract infection) Anemia Angina pectoris CHI (closed head injury) Chronic kidney disease, stage IV (severe) Chronic respiratory failure with hypoxia and hypercapnia COPD with acute exacerbation Diabetes Diabetic foot ulcer associated with type 2 diabetes mellitus 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) Dyslipidemia Elevated troponin Fall Fracture of head of left humerus HTN (hypertension) Hypercarbia Hypertrophic cardiomyopathy apical variant Hypothyroidism Knee arthropathy Lung cancer Myocardial infarction X4 Paroxysmal A-fib Peripheral neuropathy Proteinuria Thrombocytopenia Vitamin D deficiency Surgical History History of cardioversion MULTIPLE History of cataract surgery History of lung surgery PARTIAL LEFT LOBECTOMY (2013) Hx of brain surgery 2017 S/P FALL/INJURY; SUBSEQUENT BLOOD CLOT EVACUATION Knee joint replacement status S/P cardiac catheterization 7 TOTAL; CARDIAC STENTS X6 S/P hysterectomy S/P tonsillectomy Family History Father , Patient age 82 of stomach cancer. Cancer Heart disease Diabetes Mother , age 93 of heart issues Stroke Hypertension Heart disease Grandmother (Maternal) Coronary heart disease Stroke Family/Other Multiple sclerosis Brother Coronary heart disease Grandfather (Maternal) Heart disease Grandfather (Paternal) Diabetes Aunt Muscular dystrophy Other Gallbladder disease Kidney stones Social History Smoking Status: Never smoker Second Hand Exposure: No; Hx Alcohol Use: No Hx Substance Use: No Preferred Language: Setswana Communication Ability: Effective Rug Layer Required: No Beliefs That Will Affect Care: None marital status: Current Living Situation: Spouse 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al status: retired 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 How many Children do You have: 3 other: 3 children Feels Safe at Home: Yes Assistive Devices: Oxygen - Continuous and Walker Review of Systems A total of 10 systems reviewed and were otherwise negative Physical Exam Vital Signs Vital Signs - 24 hr 09/19/20 03:13 Temperature 36.8 C Temperature Source Oral Pulse Rate 72 Pulse Rhythm Regular Pulse Strength Normal Respiratory Rate 23 Respiratory Effort / Characteristics Non-Labored Respiratory Depth Normal Respiratory Pattern Regular Blood Pressure 178/68 H Blood Pressure Mean 104 Pulse Oximetry 93 Oxygen Delivery Method Nasal Cannula Oxygen Flow Rate 3 Sepsis Recent Fever Within 48 Hours No Sepsis New/Unexplained Change in Mental Status N/A Sepsis Action Taken by Nursing No Action Required VITALS: Vitals are noted on the nurse's note and reviewed by myself. Vital signs stable. GENERAL: Chronically unwell appearing female who is at her chronic state of health. She is cooperative with the examination and answering questions appropriately. HEAD: Normocephalic atraumatic. MOUTH: Mucous membranes moist. Tonsils are not enlarged. Pharynx without erythema, blood, or exudate. Uvula midline. Airway patent. NECK: Supple without nuchal rigidity. No lymphadenopathy. No thyromegaly. Cervical spine is nontender. HEART: Regular rate and rhythm without murmurs gallops or rubs. LUNGS: Distant sounds with scattered rhonchi worse on the left than the right. No distinct crackles. ABDOMEN: Positive normal bowel sounds x 4. Soft, nontender, without masses or organomegaly. No guarding or rebound tenderness. MUSCULOSKELETAL: No muscle atrophy, erythema, or edema noted. Full range of motion in all extremities. NEURO: Patient was alert and oriented to person place and time. CN II through XII grossly intact Medical Decision Making Differential Diagnosis Differential diagnosis: Etiologies such as infections, reactive airway disease, COPD, pneumonia, pleural effusion, pulmonary edema, ARDS, pneumothorax, CHF, cardiac ischemia, cardiac tamponade, dysrhythmia, anemia, pulmonary embolism, musculoskeletal, g astrointestinal process, as well as others were entertained. Laboratory Data Result diagrams: 09/19/20 04:13 09/19/20 04:13 Lab Results 09/19/20 09/19/20 09/19/20 Range/Units 03:45 03:45 04:13 WBC 5.16 (4.8-10.8) K/uL RBC 3.39 L (4.2-5.4) M/uL Hgb 9.7 L (12.0-16.0) g/dL Hct 33.4 L (37-47) % MCV 98.5 (80-100) fL MCH 28.6 (25-34) pg MCHC 29.0 L (32-36) g/dL RDW Std Deviation 69.3 H (36.4-46.3) fL RDW Coeff of Nhi 19.6 H (11.5-14.5) % Plt Count 153 (130-400) K/uL MPV 12.8 H (7.4-10.4) fL Immature Gran % (Auto) 0.8 % Neut % (Auto) 71.2 % Lymph % (Auto) 13.6 % [place] % (Auto) 10.3 % Eos % (Auto) 3.7 % Baso % (Auto) 0.4 % Neut # (Auto) 3.68 (1.4-6.5) K/uL Lymph # (Auto) 0.70 L (1.2-3.4) K/uL [place] # (Auto) 0.53 (0.11-0.59) K/uL Eos # (Auto) 0.19 (0-0.5) K/uL Baso # (Auto) 0.02 (0-0.2) K/uL Immature Gran # (Auto) 0.04 H (0.00-0.02) K/uL Absolute Nucleated RBC 0.04 H (0-0) K/uL Nucleated RBC % (auto) 0.9 % PT (9.0-12.0) Seconds INR (0.9-1.1) APTT (21.0-31.0) Seconds PTT Ratio Sodium (136-145) mmol/L Potassium (3.5-5.1) mmol/L Chloride (98-107) mmol/L Carbon Dioxide (21-32) mmol/L Anion Gap (3-11) BUN (7-18) mg/dl Creatinine (0.6-1.2) mg/dl Est Cr Clr Drug Dosing ml/min Est GFR ( Amer) Est GFR (Non-Af Amer) BUN/Creatinine Ratio (10-20) Glucose (70-99) mg/dl Lactate (0.4-2.0) mmol/L Calcium (8.5-10.1) mg/dl Magnesium (1.8-2.4) mg/dl Total Bilirubin (0.2-1) mg/dl AST (15-37) U/L ALT (12-78) U/L Alkaline Phosphatase (45-117) U/L Ammonia (11-32) umol/L Troponin I (0-0.045) ng/ml NT-Pro-B Natriuret Pep (0-1800) pg/ml Total Protein (6.4-8.2) gm/dl Albumin (3.4-5.0) gm/dl Globulin (2.5-4.0) gm/dl Albumin/Globulin Ratio (0.9-2) TSH (0.300-4.500) uIu/ml COVID-19 [facility]-2, RNA, NAAT NEGATIVE (NEGATIVE) 09/19/20 09/19/20 09/19/20 Range/Units 04:13 04:13 04:13 WBC (4.8-10.8) K/uL RBC (4.2-5.4) M/uL Hgb (12.0-16.0) g/dL Hct (37-47) % MCV (80-100) fL MCH (25-34) pg MCHC (32-36) g/dL RDW Std Deviation (36.4-46.3) fL RDW Coeff of Nhi (11.5-14.5) % Plt Count (130-400) K/uL MPV (7.4-10.4) fL Immature Gran % (Auto) % Neut % (Auto) % Lymph % (Auto) % [place] % (Auto) % Eos % (Auto) % Baso % (Auto) % Neut # (Auto) (1.4-6.5) K/uL Lymph # (Auto) (1.2-3.4) K/uL [place] # (Auto) (0.11-0.59) K/uL Eos # (Auto) (0-0.5) K/uL Baso # (Auto) (0-0.2) K/uL Immature Gran # (Auto) (0.00-0.02) K/uL Absolute Nucleated RBC (0-0) K/uL Nucleated RBC % (auto) % PT 10.9 (9.0-12.0) Seconds INR 1.1 (0.9-1.1) APTT 27.2 (21.0-31.0) Seconds PTT Ratio 1.0 Sodium 149 H (136-145) mmol/L Potassium 4.6 (3.5-5.1) mmol/L Chloride 111 H (98-107) mmol/L Carbon Dioxide 36 H (21-32) mmol/L Anion Gap 2.0 L (3-11) BUN 33 H (7-18) mg/dl Creatinine 1.88 H (0.6-1.2) mg/dl Est Cr Clr Drug Dosing 27.1 ml/min Est GFR ( Amer) 28.9 Est GFR (Non-Af Amer) 25.0 BUN/Creatinine Ratio 17.4 (10-20) Glucose 67 L (70-99) mg/dl Lactate (0.4-2.0) mmol/L Calcium 8.8 (8.5-10.1) mg/dl Magnesium 1.8 (1.8-2.4) mg/dl Total Bilirubin 0.5 (0.2-1) mg/dl AST 22 (15-37) U/L ALT 30 (12-78) U/L Alkaline Phosphatase 94 (45-117) U/L Ammonia 13.0 (11-32) umol/L Troponin I 0.048 H* (0-0.045) ng/ml NT-Pro-B Natriuret Pep 9694 H (0-1800) pg/ml Total Protein 6.1 L (6.4-8.2) gm/dl Albumin 3.1 L (3.4-5.0) gm/dl Globulin 3.0 (2.5-4.0) gm/dl Albumin/Globulin Ratio 1.0 (0.9-2) TSH 4.210 (0.300-4.500) uIu/ml COVID-19 Eval Order SARS-CoV-2, RNA, NAAT (NEGATIVE) 09/19/20 Range/Units 04:13 WBC (4.8-10.8) K/uL RBC (4.2-5.4) M/uL Hgb (12.0-16.0) g/dL Hct (37-47) % MCV (80-100) fL MCH (25-34) pg MCHC (32-36) g/dL RDW Std Deviation (36.4-46.3) fL RDW Coeff of Nhi (11.5-14.5) % Plt Count (130-400) K/uL MPV (7.4-10.4) fL Immature Gran % (Auto) % Neut % (Auto) % Lymph % (Auto) % [place] % (Auto) % Eos % (Auto) % Baso % (Auto) % Neut # (Auto) (1.4-6.5) K/uL Lymph # (Auto) (1.2-3.4) K/uL [place] # (Auto) (0.11-0.59) K/uL Eos # (Auto) (0-0.5) K/uL Baso # (Auto) (0-0.2) K/uL Immature Gran # (Auto) (0.00-0.02) K/uL Absolute Nucleated RBC (0-0) K/uL Nucleated RBC % (auto) % PT (9.0-12.0) Seconds INR (0.9-1.1) APTT (21.0-31.0) Seconds PTT Ratio Sodium (136-145) mmol/L Potassium (3.5-5.1) mmol/L Chloride (98-107) mmol/L Carbon Dioxide (21-32) mmol/L Anion Gap (3-11) BUN (7-18) mg/dl Creatinine (0.6-1.2) mg/dl Est Cr Clr Drug Dosing ml/min Est GFR ( Amer) Est GFR (Non-Af Amer) BUN/Creatinine Ratio (10-20) Glucose (70-99) mg/dl Lactate 0.9 (0.4-2.0) mmol/L Calcium (8.5-10.1) mg/dl Magnesium (1.8-2.4) mg/dl Total Bilirubin (0.2-1) mg/dl AST (15-37) U/L ALT (12-78) U/L Alkaline Phosphatase (45-117) U/L Ammonia (11-32) umol/L Troponin I (0-0.045) ng/ml NT-Pro-B Natriuret Pep (0-1800) pg/ml Total Protein (6.4-8.2) gm/dl Albumin (3.4-5.0) gm/dl Globulin (2.5-4.0) gm/dl Albumin/Globulin Ratio (0.9-2) TSH (0.300-4.500) uIu/ml COVID-19 Eval Order SARS-CoV-2, RNA, NAAT (NEGATIVE) ECG Data Attestation: I personally reviewed and interpreted this ECG as follows: Indication: + SOB/dyspnea Additional Comments: AV dual-paced rhythm @74 Abnormal ECG When compared with ECG of 22-AUG-2020 00:30, Vent. rate has decreased BY 9 BPM MDM Narrative Physical exam and history were performed. Nursing notes, EMR, and Medication List were personally reviewed. Patient appears to have difficulty breathing worsening over the past few days. She is a very complicated medical case at baseline with multiple comorbidities. IV access was established and labs were obtained. Chest x-ray was performed. Blood cultures were gathered and Covid swab was performed. An order was placed for continuous cardiac monitoring. The monitor shows a rate of 70 with normal sinus rhythm. The patient's blood work is as above and was reviewed. She does not have a significantly elevated white blood cell count. She is anemic at 9.7, but does have chronic kidney disease, and this is roughly her baseline. INR is 1.1. BUN is 33 and creatinine is 1.88. She does have a slightly elevated troponin at 0.048, however this has occurred in the past but at this time ACS seems unlikely with the longevity of her symptoms. She does appear to be in CHF with a BNP of nearly 10,000. Covid is negative. Due to the complexity of the patient's medical history I did discuss the case with both my attending and the on-call hospitalist team. The patient does have both kidney issues and CHF, and may need diuresis without putting her into [facility]. She certainly may require additional cardiac work-up, however these are likely best performed at the discretion of the hospitalist team. Please see their dictation for further patient course, plan, and disposition. The chart was completed utilizing [employer] Speech Voice Recognition Software. Grammatical errors, random word insertions, pronoun errors, and incomplete sentences are an occasional consequence of this system due to software limitations, ambient noise, and hardware issues. Any formal questions or concerns about the content, text, or information contained within the body of this dictation should be directly addressed to the provider for clarification. . Impression & Plan Acute exacerbation of CHF (congestive heart failure), Dementia, Elevated troponin Discharge Plan Visit Data Chief Complaint: Illness Stated Complaint: ILLNESS/ALTERED MENTAL STATUS/SHORT OF BREATH ED Provider: Avel[facility] ED Midlevel Provider: Ho Guzman Discharge Problem: Acute exacerbation of CHF (congestive heart failure), Dementia, Elevated troponin Patient Disposition: Admitted As Inpatient Discharge Instructions Interventions: ED Discharge Assessment Last Done: 09/19/20 05:57 Discharge Problem: Acute exacerbation of CHF (congestive heart failure) Qualifiers: Heart failure type: unspecified Qualified Code(s): I50.9 - Heart failure, unspecified Dementia Qualifiers: Dementia type: unspecified type
[2020-09-19 04:39] LABS: INR 1.1 (0.9-1.1); Partial Thromboplastin Time 27.2 Seconds (21.0-31.0); Prothrombin Time 10.9 Seconds (9.0-12.0)
[2020-09-19 04:45] LABS: Albumin Level 3.1 gm/dl (3.4-5.0); BUN Creatinine Ratio 17.4 (10-20); Calcium 8.8 mg/dl (8.5-10.1); Creatinine Clr Calc Pharmacy 27.1 ml/min; Est GFR (African American) 28.9; Magnesium 1.8 mg/dl (1.8-2.4); Potassium 4.6 mmol/L (3.5-5.1)
[2020-09-19 05:21] LABS: Bilirubin,Total 0.5 mg/dl (0.2-1); Thyroid Stimulating Hormone 4.21 uIu/ml (0.300-4.500); Total Protein 6.1 gm/dl (6.4-8.2); Troponin I 0.048 ng/ml (0-0.045)
--- NOTE | 2020-09-19 05:46 | History & Physical Report ---
Date of Service September 19, 2020 Assessment & Plan Admission and Anticipated Discharge Date Admission Date: 80 yo F w/ pMHx. of IDDM II c/b polyneuropathy and ulcers, CAD, CKD IV, CHF with diastolic dysfunction and cor pulmonale,atrial flutter s/p AV ablation and pacemaker, HTN, home oxygen requirement, long cancer s/p lobectomy 2012, and hypothyroidism presenting with shortness of breath and confusion and weakness. - admit to med/surg tele Acute CHF exacerbation with shortness of breath 2+ pitting edema, elevated BNP, potentially due to dietary indiscretion prior ECHO from 12/26/2019 EF 50-55% mild biatrial enlargement and moderate pHTN CXR appears to have pulmonary congestion similar to prior CXR, - follow up final CXR read - ECHO ordered - 40 IV Lasix ordered - continue to follow fluid status and PE - continue prn duo nebs - continue oxygen titrate for saturation > 92% - continue to educate on CHF management - low sodium diet ordered - Daily weights and I's & O's Elevated troponin 0.048, in the setting of kidney disease currently chest pain free - continue to trend until down trending or stable Dementia, appears acutely worsened potentially 2/2 disease state Ammonia 13 - continue to monitor and treat underlying cause - blood and urine cultures ordered IDDM, w/ neuropathy and ulcer - held insulin given BSG 67 - continue to monitor sugar and initiate SSI if/when elevated - A1C ordered - continue Pregabalin CKD, appears at baseline - continue to monitor with BMP Atrial fibrillation - continue Metoprolol - continue Apixaban Gout - continue Allopurinol Anxiety/depression - continue Escitalopram, Buspirone Hypothyroid - continue Synthroid Discharge concerns - consulted case mgmt to evaluate if pt. is eligible for any services at home and ensure that she is in a safe environment - PT / OT ordered given reported weakness CODE: full Diet: CC DMII, low sodium DVT prophylaxis: apixaban COVID: negative 09/19 History of Present Illness Chief Complaint: Shortness of breath Primary Care Provider: DO Maureen Lambert Stem is here for worsening shortness of breath, confusion and weakness. She has a past medical history of IDDM II c/b polyneuropathy and ulcers, CAD, CKD IV, CHF with diastolic dysfunction and cor pulmonale, atrial flutter s/p AV ablation and pacemaker, HTN, home oxygen requirement, long cancer s/p lobectomy 2012, and hypothyroidism. She is a poor historian with a history of dementia and potentially delirium. She has had between 1 or 2-3 weeks of worsening shortness of breath and orthopnea. ROS was deleon-positive but patient was unsure of timelines, contradicting herself and when asked again the timelines had changed. She explained that her cooks her meals, and she avoids salt but does eat a handful of chips during the day. Recent hospital visits include: Admissions on 07/17 for CHF exacerbation and again on 08/08-07/31 ED visit on 08/22 for shortness of breath and orthopnea Allergies Allergy/AdvReac Type Severity Reaction Status Date / Time eptifibatide Allergy Severe ANAPHYLAXIS Verified 09/19/20 03:43 hornet venom Allergy Severe WASP VENOM Verified 09/19/20 03:43 PROTEIN-ANAPHYLAXIS levofloxacin [From Levaquin] Allergy Severe Hives Verified 09/19/20 03:43 atorvastatin Allergy Intermediate MUSCLE PAIN Verified 09/19/20 03:43 ezetimibe Allergy Intermediate MUSCLE PAIN Verified 09/19/20 03:43 simvastatin Allergy Intermediate MUSCLE PAIN Verified 09/19/20 03:43 amlodipine AdvReac Severe Nausea Verified 09/19/20 03:43 azithromycin AdvReac Intermediate Palpitation Verified 09/19/20 03:43 s cortisone AdvReac Intermediate INCREASES Verified 09/19/20 03:43 SUGAR AND VOMITING? hydralazine AdvReac Intermediate VOMITING Verified 09/19/20 03:43 ibuprofen AdvReac Intermediate VOMITING Verified 09/19/20 03:43 AND DIARRHEA iodine AdvReac Intermediate SHELLFISH Verified 09/19/20 03:43 - VOMITING shellfish derived AdvReac Intermediate VOMITING Verified 09/19/20 03:43 Sulfa (Sulfonamide AdvReac Intermediate VOMITING Verified 09/19/20 03:43 Antibiotics) warfarin AdvReac Intermediate EXTREME Verified 09/19/20 03:43 BLEEDING TIMES codeine AdvReac Mild VOMITING Verified 09/19/20 03:43 gemfibrozil AdvReac Mild NAUSEA Verified 09/19/20 03:43 meperidine AdvReac Mild VOMITING Verified 09/19/20 03:43 ondansetron AdvReac Mild vomiting Verified 09/19/20 03:43 ranitidine [From Zantac] AdvReac Mild dyspepsia Verified 09/19/20 03:43 Home Medications Medication Instructions Recorded Confirmed Type ascorbic acid (vitamin C) [Vitamin 1,000 mg PO QAM 06/20/18 09/19/20 History C] ergocalciferol (vitamin D2) 50,000 unit PO WK 06/20/18 09/19/20 History [Vitamin D2] multivitamin 1 tab PO QAM 06/20/18 09/19/20 History nitroglycerin 0.4 mg sublingual 0.4 mg SL Q5M PRN #25 tab 02/26/19 09/19/20 History tablet levothyroxine [Synthroid] 25 mcg PO QAM 06/04/19 09/19/20 History buspirone 10 mg PO BID 07/12/19 09/19/20 History ipratropium-albuterol 3 ml NEB QIDR PRN #90 ml 07/17/19 09/19/20 Rx metoprolol tartrate 25 mg PO PM #30 tab 05/20/20 09/19/20 Rx sennosides 8.6 mg tablet 8.6 mg PO QAM tab 07/07/20 09/19/20 History escitalopram oxalate 5 mg PO QAM 07/20/20 09/19/20 History allopurinol 200 mg PO DAILY 08/08/20 09/19/20 History furosemide 20 mg PO DAILY 08/08/20 09/19/20 History potassium chloride 10 meq PO BID 08/08/20 09/19/20 History pregabalin 200 mg capsule 200 mg PO BID 08/14/20 09/19/20 History Basaglar KwikPen U-100 Insulin 30 units SUBCUT BID 08/22/20 09/19/20 History prednisone 5 mg tablet 2.5 mg PO DAILY tab 08/22/20 09/19/20 History apixaban 5 mg tablet 5 mg PO BID #60 tab 09/18/20 09/19/20 Rx insulin lispro [Humalog KwikPen See Rx Instructions .ROUTE .COMPLEX 09/19/20 09/19/20 History Insulin] Past Med/Surg History Medical History Acute on chronic diastolic heart failure Acute UTI (urinary tract infection) Anemia Angina pectoris CHI (closed head injury) Chronic kidney disease, stage IV (severe) Chronic respiratory failure with hypoxia and hypercapnia COPD with acute exacerbation Diabetes Diabetic foot ulcer associated with type 2 diabetes mellitus 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) Dyslipidemia Elevated troponin Fall Fracture of head of left humerus HTN (hypertension) Hypercarbia Hypertrophic cardiomyopathy apical variant Hypothyroidism Knee arthropathy Lung cancer Myocardial infarction X4 Paroxysmal A-fib Peripheral neuropathy Proteinuria Thrombocytopenia Vitamin D deficiency Surgical History History of cardioversion MULTIPLE History of cataract surgery History of lung surgery PARTIAL LEFT LOBECTOMY (2013) Hx of brain surgery 2017 S/P FALL/INJURY; SUBSEQUENT BLOOD CLOT EVACUATION Knee joint replacement status S/P cardiac catheterization 7 TOTAL; CARDIAC STENTS X6 S/P hysterectomy S/P tonsillectomy Family History Father , Patient age 82 of stomach cancer. 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 Beliefs That Will Affect Care: None marital status: Current Living Situation: Spouse 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al status: retired 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 How many Children do You have: 3 Other Information That Helps Us Care for You: No other: 3 children Feels Safe at Home: Yes Safety Concerns: Afraid for Self Assistive Devices: Cane, Glasses and Oxygen - Continuous Review of Systems Review of Systems: Unobtainable due to cognitive status Physical Exam Constitutional: comfortable; no acute distress Eyes: PERRL, conjunctivae normal, anicteric sclerae ENMT: external ear and nose normal, oropharynx normal Neck: normal visual inspection Respiratory: - decreased breath sounds bilaterally - able to speak in full sentences - slight expiratory wheeze vs. transmitted breath sounds Cardiovascular: RRR, no murmur, no edema Chest (Breasts): normal inspection/palpation of breasts Gastrointestinal (Abdomen): Inspection/Auscultation: + abdomen distended Skin: no rashes, warm and dry Neurologic: Speech / Cognition: normal speech Psychiatric: Orientation: + not oriented x 3 (oriented to person, place, not oriented to time or why she is here) Results & Data Results & Data ([facility]) Vital Signs (Past 12 Hours) Vital Signs Temp Pulse Resp BP Pulse Ox 09/19/20 03:13 36.8 C 72 23 178/68 H 93 Supervising Physician Co-Signing Physician Notes Attending addendum: I have physically seen this patient, have supervised the medical residents activities, and agree with the H&P unless as otherwise noted. Assessment and Plan: Acute respiratory failure with hypoxia/acute CHF exacerbation/HFpEF/atrial fibrillation/hypertension- The patient will be admitted to telemetry for serial cardiac enzymes, serial EKG's, cardiac rhythm monitoring and a 2-D echocardiogram with Dopplers. Lasix 40 mg IV every morning Titrate nasal cannula to keep oxygen saturation around 92% to 94% Initial troponin 0.048. Continue metoprolol tartrate with hold parameters Continue apixaban Diabetes mellitus- Glucose 67 upon admission Hold usual insulin Place on Accu-Cheks before meals and at bedtime with NovoLog coverage per scale Check hemoglobin A1c Remaining orders and notations as noted
[2020-09-19] MEDS ORDERED: GLUCOSE 10 TABS/TUBE PO PRN (06:07)
[2020-09-19] MEDS ORDERED: ALBUT/IPRATROP 3MG/0.5MG NEB 3 ML VIAL NEB PRN (06:07)
[2020-09-19] MEDS ORDERED: POLYETHYLENE (MIRALAX) 17 GM PACK PO PRN (06:07)
[2020-09-19] MEDS ORDERED: DEXTROSE 50% 50 ML SYRINGE IV PRN (06:07)
[2020-09-19] MEDS ORDERED: GLUCOSE 40% GEL 15 GM TUBE PO PRN (06:07)
[2020-09-19] MEDS ORDERED: CARBOHYDRATES FOR HYPOGLYCEMIA PO PRN (06:07)
[2020-09-19] MEDS ORDERED: GLUCAGON FOR INJ 1 MG VIAL SQ PRN (06:07)
[2020-09-19] MEDS ORDERED: FUROSEMIDE 40 MG/4 ML VIAL IV STA (06:18)
--- NOTE | 2020-09-19 06:52 | XRay Report ---
XR chest 1V portable CLINICAL HISTORY: Shortness of breath COMPARISON STUDY: August 22, 2020 FINDINGS: The heart is enlarged. There is a right subclavian dual-chamber central venous pacemaker. T here is diffuse elevation of interstitium consistent with congestive failure/fluid overload. Trace pl eural effusions are suspected. Increased basilar markings likely are atelectatic.[There is a left-elliot ed A-Port catheter unchanged in position. IMPRESSION: Cardiomegaly and radiographic evidence of congestive failure/fluid overload. ACT 112: Negative or not required by law. Electronically signed by: Olaf Muir M.D. 09/19/2020 6:51 AM
[2020-09-19] MEDS ORDERED: FUROSEMIDE 20 MG TAB PO SCH (09:00)
[2020-09-19] MEDS: PREGABALIN 100 MG CAP PO SCH ×2 (09:19→21:06)
[2020-09-19] MEDS: LEVOTHYROXINE SODIUM 25 MCG TABLET PO SCH (09:19)
[2020-09-19] MEDS: ESCITALOPRAM OXALATE 10 MG TAB PO SCH (09:20)
[2020-09-19] MEDS: APIXABAN 5 MG TABLET PO SCH ×2 (09:23→21:07)
[2020-09-19] MEDS: allopurinoL 100 MG TAB PO SCH (09:23)
[2020-09-19] MEDS: busPIRone 5 MG TAB PO SCH ×2 (09:24→21:07)
[2020-09-19] MEDS: SENNA 8.6 MG TAB PO SCH (09:24)
[2020-09-19] MEDS: predniSONE 2.5 MG TAB PO SCH (09:24)
--- NOTE | 2020-09-19 12:49 | XCELERA ---
[id number] \\[id number]
[2020-09-19] MEDS: INSULIN GLARGINE SOLOSTAR 100 UNITS/ML 3 ML PEN SC SCH (13:31)
[2020-09-19] MEDS: INSULIN ASPART 100 UNITS/ML 3 ML PEN SC SCH ×3 (13:31→21:07)
[2020-09-19 13:35] LABS: Appearance Urine Clear (Clear); Bilirubin Urine Negative (Negative); Blood Urine Negative (Negative); Color Urine Yellow; Glucose Urine UA Negative (Negative); Ketones Urine Negative (Negative); Leukocyte Esterase Urine Negative (Negative); Nitrite Urine Negative (Negative); Protein Urine Negative (Negative); Specific Gravity Urine 1.013 (1.000-1.030); Urobilinogen Urine Negative (Negative)
--- NOTE | 2020-09-19 14:06 | Electrocardiogram Report ---
Test Reason : Blood Pressure : / mmHG Vent. Rate : 074 BPM Atrial Rate : 073 BPM P-R Int : 186 ms QRS Dur : 168 ms QT Int : 462 ms P-R-T Axes : 054 -89 091 degrees QTc Int : 512 ms AV dual-paced rhythm Abnormal ECG When compared with ECG of 22-AUG-2020 00:30, Vent. rate has decreased BY 9 BPM Confirmed by Mo Manuel ([id number]) on 09/19/2020 2:06:25 PM Referred By: REFERRED SELF Confirmed By:Felix Manuel
[2020-09-19] MEDS ORDERED: FUROSEMIDE 20 MG in SYRINGE 0 ML IV ONE (16:30)
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
[2020-09-19] MEDS: ACETAMINOPHEN 325 MG TAB PO PRN (21:06)
[2020-09-19] MEDS: METOPROLOL TARTRATE 25 MG TAB PO SCH (21:07)
--- NOTE | 2020-09-19 21:44 | Billing Data ---
Date of Service September 19, 2020 Coding Level of Care Code 02884 Initial Inpt Care Lvl 3
[2020-09-20] MEDS: LEVOTHYROXINE SODIUM 25 MCG TABLET PO SCH (06:11)
[2020-09-20 06:31] LABS: Base Excess VBG 8.6 mEq/L; pH VBG 7.28 (7.36-7.41)
[2020-09-20 07:04] LABS: Estimated Average Glucose 157 mg/dl; Hemoglobin A1C 7.1 % (4.5-5.6)
[2020-09-20 07:06] LABS: BUN Creatinine Ratio 16.1 (10-20); Calcium 8.6 mg/dl (8.5-10.1); Creatinine Clr Calc Pharmacy 22.9 ml/min; Est GFR (African American) 27.2; Est GFR (Non-African American) 23.4
[2020-09-20] MEDS: INSULIN ASPART 100 UNITS/ML 3 ML PEN SC SCH ×4 (09:08→20:42)
[2020-09-20] MEDS: INSULIN GLARGINE SOLOSTAR 100 UNITS/ML 3 ML PEN SC SCH (09:09)
[2020-09-20] MEDS: APIXABAN 5 MG TABLET PO SCH ×2 (09:11→20:41)
[2020-09-20] MEDS: busPIRone 5 MG TAB PO SCH (09:11)
[2020-09-20] MEDS: ESCITALOPRAM OXALATE 10 MG TAB PO SCH (09:11)
[2020-09-20] MEDS: PREGABALIN 100 MG CAP PO SCH ×2 (09:12→20:40)
[2020-09-20] MEDS: predniSONE 2.5 MG TAB PO SCH (09:12)
[2020-09-20] MEDS: SENNA 8.6 MG TAB PO SCH (09:12)
[2020-09-20] MEDS: allopurinoL 100 MG TAB PO SCH (09:12)
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
[2020-09-20] MEDS: HEPARIN 100 UNIT/ML 5ML FLUSH FLUSH PRN (12:30)
[2020-09-20] MEDS ORDERED: FUROSEMIDE 40 MG in SYRINGE 0 ML IV ONE (12:30)
--- NOTE | 2020-09-20 19:44 | CT Scan Report ---
CT SCAN OF THE ABDOMEN AND PELVIS WITHOUT IV CONTRAST CLINICAL HISTORY: Right-sided abdominal pain. COMPARISON STUDY: Abdominal CT dated 05/08/2020. TECHNIQUE: CT scan of the abdomen and pelvis is performed from the lung bases to the proximal femora. Images are reviewed in the axial, sagittal, and coronal planes. IV contrast was not administered for this examination. Note that the examination was performed in suboptimal fashion without oral and IV contrast. A dose lowering technique was utilized adhering to the principles of ALARA. CT DOSE: 1200.53 mGy.cm FINDINGS: Lung bases: The heart is enlarged and without pericardial effusion. Pacemaker leads are in place. The coronary arteries are densely calcified. There is lipomatous hypertrophy of the interatrial septum. There is a small hiatal hernia. The lung bases are clear noting bibasilar scarring/atelectasis. Liver: The unenhanced liver is normal in size, contour, and attenuation. There is no intrahepatic uzma iary ductal dilatation. Gallbladder: Unremarkable. Spleen: Normal in size and attenuation. There are calcified splenic granulomas. Pancreas: The unenhanced pancreas is moderately atrophic and grossly unremarkable. Adrenal glands: Unremarkable. Kidneys: The unenhanced kidneys are atrophic and without hydronephrosis. There is asymmetric atrophy of the left kidney as compared to the right. Foci of parenchymal scarring are noted in the left kidne y. There are numerous bilateral renal vascular calcifications. There are likely nonobstructing left r enal calculi. No ureteral stone is seen. Small renal cysts measure up to 1.6 cm. A 0.6 cm complex/hyp erdense cyst is noted in the lower pole of the left kidney. Abdominal vasculature: The abdominal aorta is normal in course and caliber noting advanced atheroscle rotic calcification. Bowel: There is moderate colonic diverticulosis without CT evidence of acute diverticulitis. No bowel obstruction is seen. The appendix is nonvisualized. Peritoneum: There is no intraperitoneal free air or abdominal ascites. Lymphadenopathy: None. Pelvic viscera: The bladder is normal as visualized. The uterus is surgically absent. No adnexal lesi on is seen. Skeletal structures: The skeletal structures are osteopenic. There is moderate to advanced lumbosacra l spondylosis. Large posterior disc osteophyte complexes at L3-L4 and L5-S1 likely contribute to sign ificant acquired compromise of the central canal. No lytic or blastic lesions are seen. IMPRESSION: 1. There are no acute infectious or inflammatory findings in the abdomen or pelvis. 2. Cardiomegaly. 3. Colonic diverticulosis without CT evidence of acute diverticulitis. 4. Additional findings as above. ACT 112: Negative or not required by law. Electronically signed by: Eliceo Hart M.D. 09/20/2020 7:40 PM
[2020-09-20] MEDS: ACETAMINOPHEN 325 MG TAB PO PRN (20:39)
[2020-09-20] MEDS: busPIRone 15 MG TAB PO SCH (20:40)
[2020-09-20] MEDS: METOPROLOL TARTRATE 25 MG TAB PO SCH (20:41)
[2020-09-21] MEDS: HEPARIN 100 UNIT/ML 5ML FLUSH FLUSH PRN ×2 (04:27→12:33)
[2020-09-21] MEDS: LEVOTHYROXINE SODIUM 25 MCG TABLET PO SCH (05:26)
[2020-09-21 06:01] LABS: BUN Creatinine Ratio 18.9 (10-20); Calcium 8.3 mg/dl (8.5-10.1); Creatinine Clr Calc Pharmacy 22.1 ml/min; Est GFR (African American) 26.1; Est GFR (Non-African American) 22.5; Potassium 4.2 mmol/L (3.5-5.1)
[2020-09-21] MEDS: INSULIN ASPART 100 UNITS/ML 3 ML PEN SC SCH ×4 (08:25→20:58)
[2020-09-21] MEDS: INSULIN GLARGINE SOLOSTAR 100 UNITS/ML 3 ML PEN SC SCH (08:25)
[2020-09-21] MEDS: busPIRone 15 MG TAB PO SCH ×2 (08:30→20:48)
[2020-09-21] MEDS: predniSONE 2.5 MG TAB PO SCH (08:31)
[2020-09-21] MEDS: ESCITALOPRAM OXALATE 10 MG TAB PO SCH (08:31)
[2020-09-21] MEDS: APIXABAN 5 MG TABLET PO SCH ×2 (08:31→20:48)
[2020-09-21] MEDS: allopurinoL 100 MG TAB PO SCH (08:32)
[2020-09-21] MEDS: SENNA 8.6 MG TAB PO SCH (08:32)
[2020-09-21] MEDS: PREGABALIN 100 MG CAP PO SCH ×2 (08:34→20:54)
--- NOTE | 2020-09-21 10:17 | XRay Report ---
XR chest 2V PA/lateral CLINICAL HISTORY: pulm edema, interval change COMPARISON STUDY: Chest radiograph September 19, 2020. FINDINGS: A dual lead right subclavian pacer maker and left subclavian [id number] are in place. Ca rdiomegaly is noted. Postoperative findings within the left lung are present. There is no pneumothora x or pleural effusion. Pulmonary vascular congestion is noted. This has slightly improved. There is n o lobar consolidation. IMPRESSION: Pulmonary vascular congestion, slightly improved since prior exam. ACT 112: Negative or not required by law. Electronically signed by: Jose Mcgregor M.D. 09/21/2020 10:16 AM
[2020-09-21] MEDS ORDERED: BUMETANIDE 1 MG in SYRINGE 0 ML IV SCH (11:30)
[2020-09-21] MEDS ORDERED: BUMETANIDE 0.5 MG in SYRINGE 0 ML IV ONE (17:30)
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
[2020-09-21] MEDS: METOPROLOL TARTRATE 25 MG TAB PO SCH (20:49)
[2020-09-21] MEDS: ACETAMINOPHEN 325 MG TAB PO PRN (22:41)
[2020-09-22] MEDS: LEVOTHYROXINE SODIUM 25 MCG TABLET PO SCH (05:28)
[2020-09-22] MEDS: HEPARIN 100 UNIT/ML 5ML FLUSH FLUSH PRN ×2 (06:09→17:19)
[2020-09-22 06:49] LABS: BUN Creatinine Ratio 20.8 (10-20); Calcium 8.5 mg/dl (8.5-10.1); Creatinine Clr Calc Pharmacy 20.3 ml/min; Est GFR (African American) 23.7; Est GFR (Non-African American) 20.4; Potassium 4.1 mmol/L (3.5-5.1)
[2020-09-22 06:53] LABS: Ferritin 22.5 ng/ml (8-388)
[2020-09-22] MEDS: INSULIN GLARGINE SOLOSTAR 100 UNITS/ML 3 ML PEN SC SCH (08:25)
[2020-09-22] MEDS: INSULIN ASPART 100 UNITS/ML 3 ML PEN SC SCH ×4 (08:25→20:59)
[2020-09-22] MEDS: busPIRone 15 MG TAB PO SCH ×2 (08:26→20:58)
[2020-09-22] MEDS: ESCITALOPRAM OXALATE 10 MG TAB PO SCH (08:27)
[2020-09-22] MEDS: APIXABAN 5 MG TABLET PO SCH ×2 (08:27→20:58)
[2020-09-22] MEDS: allopurinoL 100 MG TAB PO SCH (08:28)
[2020-09-22] MEDS: PREGABALIN 100 MG CAP PO SCH ×2 (08:28→20:57)
[2020-09-22] MEDS: SENNA 8.6 MG TAB PO SCH (08:28)
[2020-09-22] MEDS: predniSONE 2.5 MG TAB PO SCH (08:28)
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
--- NOTE | 2020-09-22 17:09 | Ultrasound Report ---
BILATERAL LOWER EXTREMITY VENOUS DOPPLER CLINICAL HISTORY: Lower extremity edema. COMPARISON STUDY: Left lower extremity venous Doppler ultrasound May 10, 2014. Bilateral lower e xtremity venous Doppler ultrasound July 19, 2013. TECHNIQUE: Sonography of the deep venous system of the bilateral lower extremities was performed. Co mpression and augmentation were evaluated. FINDINGS: The bilateral common femoral, superficial femoral and popliteal veins were compressible. A ugmentation was normal. Flow was shown within the deep calf vessels. Bilateral lower extremity edema was noted. IMPRESSION: No evidence of deep venous thrombus within the bilateral lower extremities. ACT 112: Negative or not required by law. Electronically signed by: Jose Mcgregor M.D. 09/22/2020 5:08 PM
[2020-09-22] MEDS: FUROSEMIDE 80 MG in SYRINGE 0 ML IV SCH (17:19)
[2020-09-22] MEDS: METOPROLOL TARTRATE 25 MG TAB PO SCH (20:58)
[2020-09-23] MEDS: LEVOTHYROXINE SODIUM 25 MCG TABLET PO SCH (05:57)
[2020-09-23 07:05] LABS: BUN Creatinine Ratio 23.7 (10-20); Calcium 8.2 mg/dl (8.5-10.1); Creatinine Clr Calc Pharmacy 22.9 ml/min; Est GFR (African American) 27.5; Est GFR (Non-African American) 23.7; Magnesium 1.9 mg/dl (1.8-2.4)
[2020-09-23 07:53] LABS: Hematocrit (blood only) 32.5 % (37-47); Hemoglobin 9.2 g/dL (12.0-16.0); Mean Corpuscular Hgb Conc 28.3 g/dL (32-36); Mean Corpuscular Volume 98.8 fL (80-100); Mean Platelet Volume 13.3 fL (7.4-10.4); Nucleated RBC # (auto) 0.03 K/uL (0-0); Nucleated RBC % (auto) 0.6 %; Platelet Count 165 K/uL (130-400); RDW Coefficient of Variation 19.1 % (11.5-14.5); RDW Standard Deviation 69.3 fL (36.4-46.3); Red Blood Count 3.29 M/uL (4.2-5.4); White Blood Count 4.38 K/uL (4.8-10.8)
[2020-09-23] MEDS: predniSONE 2.5 MG TAB PO SCH ×2 (08:39→09:53)
[2020-09-23] MEDS: ESCITALOPRAM OXALATE 10 MG TAB PO SCH ×2 (08:39→09:52)
[2020-09-23] MEDS: allopurinoL 100 MG TAB PO SCH ×2 (08:39→09:53)
[2020-09-23] MEDS: SENNA 8.6 MG TAB PO SCH ×2 (08:39→09:53)
[2020-09-23] MEDS: FUROSEMIDE 80 MG in SYRINGE 0 ML IV SCH (08:39)
[2020-09-23] MEDS: APIXABAN 5 MG TABLET PO SCH ×3 (08:40→20:42)
[2020-09-23] MEDS: busPIRone 15 MG TAB PO SCH ×3 (08:40→20:42)
[2020-09-23] MEDS: INSULIN GLARGINE SOLOSTAR 100 UNITS/ML 3 ML PEN SC SCH (08:42)
[2020-09-23] MEDS: INSULIN ASPART 100 UNITS/ML 3 ML PEN SC SCH ×5 (08:42→20:43)
[2020-09-23] MEDS: HEPARIN 100 UNIT/ML 5ML FLUSH FLUSH PRN (08:49)
[2020-09-23] MEDS: PREGABALIN 100 MG CAP PO SCH ×3 (08:49→20:43)
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
[2020-09-23] MEDS: METOPROLOL TARTRATE 25 MG TAB PO SCH (20:43)
[2020-09-24] MEDS: LEVOTHYROXINE SODIUM 25 MCG TABLET PO SCH (05:48)
[2020-09-24] MEDS: HEPARIN 100 UNIT/ML 5ML FLUSH FLUSH PRN ×2 (06:02→09:26)
[2020-09-24 06:36] LABS: Hemoglobin 9.3 g/dL (12.0-16.0); Mean Corpuscular Hemoglobin 28.9 pg (25-34); Mean Corpuscular Hgb Conc 29.1 g/dL (32-36); Mean Corpuscular Volume 99.4 fL (80-100); Mean Platelet Volume 13.1 fL (7.4-10.4); Platelet Count 155 K/uL (130-400); RDW Standard Deviation 68.8 fL (36.4-46.3); Red Blood Count 3.22 M/uL (4.2-5.4); White Blood Count 5.04 K/uL (4.8-10.8)
[2020-09-24 07:06] LABS: BUN Creatinine Ratio 26.2 (10-20); Calcium 8.2 mg/dl (8.5-10.1); Creatinine Clr Calc Pharmacy 24.7 ml/min; Est GFR (African American) 30.3; Est GFR (Non-African American) 26.1; Magnesium 1.9 mg/dl (1.8-2.4); Phosphorus 4.5 mg/dl (2.5-4.9); Potassium 3.7 mmol/L (3.5-5.1)
[2020-09-24] MEDS: INSULIN GLARGINE SOLOSTAR 100 UNITS/ML 3 ML PEN SC SCH (09:07)
[2020-09-24] MEDS: INSULIN ASPART 100 UNITS/ML 3 ML PEN SC SCH ×4 (09:08→20:34)
[2020-09-24] MEDS: FUROSEMIDE 80 MG in SYRINGE 0 ML IV SCH (09:08)
[2020-09-24] MEDS: busPIRone 15 MG TAB PO SCH ×2 (12:15→20:30)
[2020-09-24] MEDS: PREGABALIN 100 MG CAP PO SCH ×2 (12:15→20:34)
[2020-09-24] MEDS: ESCITALOPRAM OXALATE 10 MG TAB PO SCH (12:15)
[2020-09-24] MEDS: APIXABAN 5 MG TABLET PO SCH ×2 (12:15→20:31)
[2020-09-24] MEDS: allopurinoL 100 MG TAB PO SCH (12:15)
[2020-09-24] MEDS: predniSONE 2.5 MG TAB PO SCH (12:15)
[2020-09-24] MEDS: SENNA 8.6 MG TAB PO SCH (12:15)
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
[2020-09-24] MEDS: METOPROLOL TARTRATE 25 MG TAB PO SCH (20:30)
[2020-09-25] MEDS: ACETAMINOPHEN 325 MG TAB PO PRN ×2 (05:29→20:47)
[2020-09-25] MEDS: LEVOTHYROXINE SODIUM 25 MCG TABLET PO SCH (05:30)
[2020-09-25] MEDS: HEPARIN 100 UNIT/ML 5ML FLUSH FLUSH PRN ×2 (05:59→08:47)
[2020-09-25 07:01] LABS: BUN Creatinine Ratio 22.1 (10-20); Calcium 8.3 mg/dl (8.5-10.1); Creatinine Clr Calc Pharmacy 21.2 ml/min; Est GFR (African American) 25.5; Magnesium 1.8 mg/dl (1.8-2.4); Phosphorus 4.3 mg/dl (2.5-4.9); Potassium 3.8 mmol/L (3.5-5.1)
[2020-09-25 08:07] LABS: Hematocrit (blood only) 32.5 % (37-47); Hemoglobin 9.4 g/dL (12.0-16.0); Mean Corpuscular Hemoglobin 28.3 pg (25-34); Mean Corpuscular Hgb Conc 28.9 g/dL (32-36); Mean Corpuscular Volume 97.9 fL (80-100); Mean Platelet Volume 12.5 fL (7.4-10.4); Nucleated RBC # (auto) 0.03 K/uL (0-0); Nucleated RBC % (auto) 0.5 %; Platelet Count 144 K/uL (130-400); Platelet Estimate Decreased (Normal); RDW Coefficient of Variation 19.4 % (11.5-14.5); RDW Standard Deviation 69.8 fL (36.4-46.3); Red Blood Count 3.32 M/uL (4.2-5.4); White Blood Count 5.16 K/uL (4.8-10.8)
[2020-09-25] MEDS: INSULIN ASPART 100 UNITS/ML 3 ML PEN SC SCH ×4 (08:40→20:53)
[2020-09-25] MEDS: INSULIN GLARGINE SOLOSTAR 100 UNITS/ML 3 ML PEN SC SCH (08:40)
[2020-09-25] MEDS: APIXABAN 5 MG TABLET PO SCH ×2 (08:41→20:41)
[2020-09-25] MEDS: ESCITALOPRAM OXALATE 10 MG TAB PO SCH (08:41)
[2020-09-25] MEDS: predniSONE 2.5 MG TAB PO SCH (08:41)
[2020-09-25] MEDS: SENNA 8.6 MG TAB PO SCH (08:42)
[2020-09-25] MEDS: busPIRone 15 MG TAB PO SCH ×2 (08:43→20:40)
[2020-09-25] MEDS: allopurinoL 100 MG TAB PO SCH (08:43)
[2020-09-25] MEDS: FUROSEMIDE 80 MG in SYRINGE 0 ML IV SCH (08:44)
[2020-09-25] MEDS: PREGABALIN 100 MG CAP PO SCH ×2 (11:56→20:47)
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
[2020-09-25] MEDS: METOPROLOL TARTRATE 25 MG TAB PO SCH (20:39)
[2020-09-25 20:48] LABS: Appearance Urine Clear (Clear); Bilirubin Urine Negative (Negative); Blood Urine Negative (Negative); Color Urine Yellow; Glucose Urine UA Negative (Negative); Ketones Urine Negative (Negative); Leukocyte Esterase Urine Negative (Negative); Nitrite Urine Negative (Negative); Protein Urine Negative (Negative); Specific Gravity Urine 1.014 (1.000-1.030); Urobilinogen Urine Negative (Negative)
[2020-09-26] MEDS: LEVOTHYROXINE SODIUM 25 MCG TABLET PO SCH (05:42)
[2020-09-26] MEDS: HEPARIN 100 UNIT/ML 5ML FLUSH FLUSH PRN ×4 (05:50→21:16)
[2020-09-26 06:27] LABS: Hematocrit (blood only) 32.9 % (37-47); Hemoglobin 9.5 g/dL (12.0-16.0); Mean Corpuscular Hemoglobin 28.4 pg (25-34); Mean Corpuscular Hgb Conc 28.9 g/dL (32-36); Mean Corpuscular Volume 98.5 fL (80-100); Mean Platelet Volume 12.5 fL (7.4-10.4); Nucleated RBC # (auto) 0.02 K/uL (0-0); Nucleated RBC % (auto) 0.4 %; Platelet Count 145 K/uL (130-400); RDW Coefficient of Variation 19.3 % (11.5-14.5); RDW Standard Deviation 69.4 fL (36.4-46.3); Red Blood Count 3.34 M/uL (4.2-5.4); White Blood Count 4.21 K/uL (4.8-10.8)
[2020-09-26 06:57] LABS: BUN Creatinine Ratio 24.9 (10-20); Calcium 8.1 mg/dl (8.5-10.1); Creatinine Clr Calc Pharmacy 23.3 ml/min; Est GFR (African American) 28.4; Est GFR (Non-African American) 24.5; Phosphorus 4.4 mg/dl (2.5-4.9); Potassium 3.9 mmol/L (3.5-5.1)
[2020-09-26] MEDS: FUROSEMIDE 80 MG in SYRINGE 0 ML IV SCH (08:31)
[2020-09-26] MEDS: INSULIN ASPART 100 UNITS/ML 3 ML PEN SC SCH ×4 (08:31→21:20)
[2020-09-26] MEDS: INSULIN GLARGINE SOLOSTAR 100 UNITS/ML 3 ML PEN SC SCH (09:09)
[2020-09-26] MEDS: busPIRone 15 MG TAB PO SCH ×2 (12:12→21:17)
[2020-09-26] MEDS: ESCITALOPRAM OXALATE 10 MG TAB PO SCH (12:12)
[2020-09-26] MEDS: PREGABALIN 100 MG CAP PO SCH ×2 (12:12→21:22)
[2020-09-26] MEDS: APIXABAN 5 MG TABLET PO SCH ×2 (12:12→21:18)
[2020-09-26] MEDS: allopurinoL 100 MG TAB PO SCH (12:13)
[2020-09-26] MEDS: SENNA 8.6 MG TAB PO SCH (12:13)
[2020-09-26] MEDS: predniSONE 2.5 MG TAB PO SCH (12:13)
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
[2020-09-26] MEDS ORDERED: FUROSEMIDE 80 MG in SYRINGE 0 ML IV SCH (21:00)
[2020-09-26] MEDS: METOPROLOL TARTRATE 25 MG TAB PO SCH (21:18)
[2020-09-27] MEDS: LEVOTHYROXINE SODIUM 25 MCG TABLET PO SCH (06:54)
[2020-09-27] MEDS: predniSONE 2.5 MG TAB PO SCH (07:49)
[2020-09-27] MEDS: allopurinoL 100 MG TAB PO SCH (07:50)
[2020-09-27] MEDS: ESCITALOPRAM OXALATE 10 MG TAB PO SCH (07:50)
[2020-09-27] MEDS: FUROSEMIDE 80 MG TAB PO SCH ×2 (07:51→17:29)
[2020-09-27] MEDS: INSULIN ASPART 100 UNITS/ML 3 ML PEN SC SCH ×4 (07:56→21:59)
[2020-09-27] MEDS: INSULIN GLARGINE SOLOSTAR 100 UNITS/ML 3 ML PEN SC SCH (07:56)
[2020-09-27] MEDS: PREGABALIN 100 MG CAP PO SCH ×2 (07:56→23:01)
[2020-09-27] MEDS: busPIRone 15 MG TAB PO SCH ×2 (08:03→23:01)
[2020-09-27] MEDS: APIXABAN 5 MG TABLET PO SCH ×2 (08:03→23:01)
[2020-09-27] MEDS: SENNA 8.6 MG TAB PO SCH (08:03)
[2020-09-27] MEDS: HEPARIN 100 UNIT/ML 5ML FLUSH FLUSH PRN (08:42)
[2020-09-27 09:03] LABS: Hematocrit (blood only) 32.3 % (37-47); Hemoglobin 9.3 g/dL (12.0-16.0); Mean Corpuscular Hemoglobin 28.3 pg (25-34); Mean Corpuscular Hgb Conc 28.8 g/dL (32-36); Mean Corpuscular Volume 98.2 fL (80-100); Mean Platelet Volume 12.7 fL (7.4-10.4); Nucleated RBC # (auto) 0.04 K/uL (0-0); Nucleated RBC % (auto) 0.8 %; Platelet Count 146 K/uL (130-400); RDW Coefficient of Variation 19.5 % (11.5-14.5); RDW Standard Deviation 70.2 fL (36.4-46.3); Red Blood Count 3.29 M/uL (4.2-5.4); White Blood Count 4.93 K/uL (4.8-10.8)
[2020-09-27 09:40] LABS: BUN Creatinine Ratio 21.8 (10-20); Calcium 8.8 mg/dl (8.5-10.1); Est GFR (African American) 27.5; Est GFR (Non-African American) 23.7; Magnesium 1.9 mg/dl (1.8-2.4); Phosphorus 3.6 mg/dl (2.5-4.9); Potassium 3.7 mmol/L (3.5-5.1)
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
[2020-09-27] MEDS: METOPROLOL TARTRATE 25 MG TAB PO SCH (23:01)
[2020-09-28] MEDS: LEVOTHYROXINE SODIUM 25 MCG TABLET PO SCH (07:42)
[2020-09-28] MEDS: allopurinoL 100 MG TAB PO SCH (07:46)
[2020-09-28] MEDS: predniSONE 2.5 MG TAB PO SCH (07:46)
[2020-09-28] MEDS: SENNA 8.6 MG TAB PO SCH (07:47)
[2020-09-28] MEDS: busPIRone 15 MG TAB PO SCH ×2 (07:47→20:14)
[2020-09-28] MEDS: APIXABAN 5 MG TABLET PO SCH ×2 (07:47→20:14)
[2020-09-28] MEDS: FUROSEMIDE 80 MG TAB PO SCH ×2 (07:48→17:23)
[2020-09-28] MEDS: ESCITALOPRAM OXALATE 10 MG TAB PO SCH (07:48)
[2020-09-28] MEDS: PREGABALIN 100 MG CAP PO SCH ×2 (07:50→20:13)
[2020-09-28] MEDS: INSULIN ASPART 100 UNITS/ML 3 ML PEN SC SCH ×4 (07:52→20:20)
[2020-09-28] MEDS: INSULIN GLARGINE SOLOSTAR 100 UNITS/ML 3 ML PEN SC SCH (07:52)
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
[2020-09-28] MEDS: METOPROLOL TARTRATE 25 MG TAB PO SCH (20:16)
[2020-09-29] MEDS: HEPARIN 100 UNIT/ML 5ML FLUSH FLUSH PRN (06:07)
[2020-09-29] MEDS: LEVOTHYROXINE SODIUM 25 MCG TABLET PO SCH (06:29)
[2020-09-29 06:35] LABS: Basophils # (auto) 0.02 K/uL (0-0.2); Basophils % (auto) 0.4 %; Eosinophils # (auto) 0.09 K/uL (0-0.5); Eosinophils % (auto) 1.9 %; Hematocrit (blood only) 34.4 % (37-47); Hemoglobin 9.7 g/dL (12.0-16.0); Immature Granulocytes # (auto) 0.03 K/uL (0.00-0.02); Immature Granulocytes % (auto) 0.6 %; Lymphocytes # (auto) 0.71 K/uL (1.2-3.4); Lymphocytes % (auto) 15.4 %; Mean Corpuscular Hemoglobin 27.8 pg (25-34); Mean Corpuscular Hgb Conc 28.2 g/dL (32-36); Mean Corpuscular Volume 98.6 fL (80-100); Mean Platelet Volume 11.6 fL (7.4-10.4); Monocytes # (auto) 0.53 K/uL (0.11-0.59); Monocytes % (auto) 11.5 %; Neutrophils # (auto) 3.24 K/uL (1.4-6.5); Neutrophils % (auto) 70.2 %; Nucleated RBC # (auto) 0.02 K/uL (0-0); Nucleated RBC % (auto) 0.5 %; Platelet Count 134 K/uL (130-400); RDW Coefficient of Variation 19.1 % (11.5-14.5); RDW Standard Deviation 69.5 fL (36.4-46.3); Red Blood Count 3.49 M/uL (4.2-5.4); White Blood Count 4.62 K/uL (4.8-10.8)
[2020-09-29 07:22] LABS: BUN Creatinine Ratio 25.1 (10-20); Calcium 9.1 mg/dl (8.5-10.1); Est GFR (African American) 33.1; Est GFR (Non-African American) 28.6; Magnesium 1.9 mg/dl (1.8-2.4); Phosphorus 4.2 mg/dl (2.5-4.9); Potassium 3.7 mmol/L (3.5-5.1)
[2020-09-29] MEDS: ESCITALOPRAM OXALATE 10 MG TAB PO SCH (07:41)
[2020-09-29] MEDS: APIXABAN 5 MG TABLET PO SCH ×2 (07:42→20:22)
[2020-09-29] MEDS: allopurinoL 100 MG TAB PO SCH (07:42)
[2020-09-29] MEDS: busPIRone 15 MG TAB PO SCH ×2 (07:42→20:22)
[2020-09-29] MEDS: predniSONE 2.5 MG TAB PO SCH (07:42)
[2020-09-29] MEDS: SENNA 8.6 MG TAB PO SCH (07:43)
[2020-09-29] MEDS: FUROSEMIDE 80 MG TAB PO SCH (07:43)
[2020-09-29] MEDS: PREGABALIN 100 MG CAP PO SCH ×2 (07:45→20:21)
[2020-09-29] MEDS: INSULIN ASPART 100 UNITS/ML 3 ML PEN SC SCH ×4 (08:02→20:42)
[2020-09-29] MEDS: INSULIN GLARGINE SOLOSTAR 100 UNITS/ML 3 ML PEN SC SCH (08:02)
[2020-09-29] MEDS ORDERED: OLANZapine 10 MG/2.1 ML SDV IM STA (09:12)
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
[2020-09-29] MEDS: METOPROLOL TARTRATE 25 MG TAB PO SCH (20:23)
[2020-09-30] MEDS: LEVOTHYROXINE SODIUM 25 MCG TABLET PO SCH (06:09)
[2020-09-30 07:08] LABS: Hematocrit (blood only) 36.3 % (37-47); Hemoglobin 10.4 g/dL (12.0-16.0); Mean Corpuscular Hemoglobin 28.3 pg (25-34); Mean Corpuscular Hgb Conc 28.7 g/dL (32-36); Mean Corpuscular Volume 98.9 fL (80-100); RDW Coefficient of Variation 18.9 % (11.5-14.5); RDW Standard Deviation 68.4 fL (36.4-46.3); Red Blood Count 3.67 M/uL (4.2-5.4); White Blood Count 5.85 K/uL (4.8-10.8)
[2020-09-30 07:15] LABS: BUN Creatinine Ratio 22.7 (10-20); Calcium 9.6 mg/dl (8.5-10.1); Creatinine Clr Calc Pharmacy 24.3 ml/min; Est GFR (African American) 30.5; Est GFR (Non-African American) 26.3; Potassium 3.5 mmol/L (3.5-5.1); Uric Acid 6.6 mg/dl (2.6-7.2)
[2020-09-30 07:48] LABS: Mean Platelet Volume 13.4 fL (7.4-10.4); Platelet Count 144 K/uL (130-400)
[2020-09-30 07:51] LABS: Basophils # (auto) 0.02 K/uL (0-0.2); Basophils % (auto) 0.3 %; Eosinophils # (auto) 0.14 K/uL (0-0.5); Eosinophils % (auto) 2.4 %; Immature Granulocytes # (auto) 0.04 K/uL (0.00-0.02); Immature Granulocytes % (auto) 0.7 %; Lymphocytes # (auto) 0.77 K/uL (1.2-3.4); Lymphocytes % (auto) 13.2 %; Monocytes % (auto) 6.8 %; Neutrophils # (auto) 4.48 K/uL (1.4-6.5); Neutrophils % (auto) 76.6 %; Nucleated RBC # (auto) 0.02 K/uL (0-0); Nucleated RBC % (auto) 0.3 %; Platelet Estimate Decreased (Normal)
[2020-09-30] MEDS: predniSONE 2.5 MG TAB PO SCH ×2 (08:05→08:57)
[2020-09-30] MEDS: SENNA 8.6 MG TAB PO SCH ×2 (08:05→08:57)
[2020-09-30] MEDS: APIXABAN 5 MG TABLET PO SCH ×2 (08:05→08:57)
[2020-09-30] MEDS: busPIRone 15 MG TAB PO SCH ×2 (08:05→08:56)
[2020-09-30] MEDS: ACETAMINOPHEN 325 MG TAB PO PRN (08:06)
[2020-09-30] MEDS: ESCITALOPRAM OXALATE 10 MG TAB PO SCH ×3 (08:06→08:58)
[2020-09-30] MEDS: allopurinoL 100 MG TAB PO SCH ×2 (08:06→08:57)
[2020-09-30] MEDS: PREGABALIN 100 MG CAP PO SCH ×2 (08:10→08:57)
[2020-09-30] MEDS: INSULIN GLARGINE SOLOSTAR 100 UNITS/ML 3 ML PEN SC SCH ×2 (08:45→08:57)
[2020-09-30] MEDS: INSULIN ASPART 100 UNITS/ML 3 ML PEN SC SCH (08:46)
[2020-09-30] MEDS ORDERED: FUROSEMIDE 40 MG in SYRINGE 0 ML IV SCH (09:00)
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
== END 2020-09-30 11:38 | DRG 291 ==
LOC: ED 03:02 → SUATTDRO 05:36 → 2W 05:36

== ENCOUNTER 2020-11-24 09:55 | Inpatient (IN) ==
[2020-11-24] MEDS ORDERED: PANTOprazole 40 MG in SYRINGE 0 ML IV ONE (11:28)
[2020-11-24 11:54] LABS: INR 1.1 (0.9-1.1); Partial Thromboplastin Time 26.5 Seconds (21.0-31.0); Prothrombin Time 10.7 Seconds (9.0-12.0)
[2020-11-24 11:59] LABS: Albumin Level 2.8 gm/dl (3.4-5.0); BUN Creatinine Ratio 28.3 (10-20); Calcium 8.3 mg/dl (8.5-10.1); Creatinine Clr Calc Pharmacy 24.2 ml/min; Est GFR (African American) 29.3; Est GFR (Non-African American) 25.3; Potassium 4.4 mmol/L (3.5-5.1)
[2020-11-24 12:06] LABS: Bilirubin,Total 0.8 mg/dl (0.2-1); Globulin 2.8 gm/dl (2.5-4.0); Total Protein 5.6 gm/dl (6.4-8.2); Troponin I 0.067 ng/ml (0-0.045)
--- NOTE | 2020-11-24 12:13 | XRay Report ---
XR chest 1V portable CLINICAL HISTORY: SOB COMPARISON STUDY: September 21, 2020 FINDINGS: The heart remains enlarged. There is a right subclavian dual-chamber central venous pacemak er. There is a left-sided Mediport catheter. There is stable left upper lobe atelectasis/scarring. Th ere is continued radiographic evidence of mild congestive failure/fluid overload. Indistinctness of l eft cardiophrenic angle persists.[ IMPRESSION: No significant change from the prior study. Persistent cardiomegaly and radiographic evid ence of mild pulmonary vascular congestion/fluid overload. Postoperative changes present within the l eft upper lung zone. ACT 112: Negative or not required by law. Electronically signed by: Olaf Muir M.D. 11/24/2020 12:12 PM
[2020-11-24 12:14] LABS: Hematocrit (blood only) 33.5 % (37-47); Hemoglobin 9.5 g/dL (12.0-16.0); Mean Corpuscular Hemoglobin 26.8 pg (25-34); Mean Corpuscular Hgb Conc 28.4 g/dL (32-36); Mean Corpuscular Volume 94.6 fL (80-100); Nucleated RBC # (auto) 0.04 K/uL (0-0); Nucleated RBC % (auto) 0.9 %; Platelet Count 86 K/uL (130-400); Platelet Estimate Decreased (Normal); RDW Coefficient of Variation 19.7 % (11.5-14.5); RDW Standard Deviation 67.1 fL (36.4-46.3); Red Blood Count 3.54 M/uL (4.2-5.4); White Blood Count 4.91 K/uL (4.8-10.8)
--- NOTE | 2020-11-24 12:50 | Emergency Department Note ---
Impression & Plan Acute upper gastrointestinal bleeding, Anemia, BARAHONA (dyspnea on exertion), Elevated troponin I level, Thrombocytopenia ED Provider Note NAME: PING VIZCAINO AGE: 80 SEX: F : 1940 ARRIVES VIA: Walk-In INFORMANT: Patient, ED PROVIDER(S): Gerry Barbosa DO CHIEF COMPLAINT: Generalized weakness HPI: The patient is a 80-year-old female who presented to the emergency department for an evaluation of generalized weakness. The patient has been having generalized weakness and lower extremity swelling over the course the last few weeks. She does wear oxygen for history of kidney injury and heart failure. The patient was noted to have black stool over the last few days. She has been using Pepto-Bismol. She says at this time she has no abdominal pain. She is had no nausea or vomiting. She was noted to have black stool by visiting nurse this morning was referred to the emergency department for further evaluation. She denies having any chest pain. She denies having any recent falls. She has been compliant with her outpatient medication regimen which includes apixaban. ROS: See above HPI for pertinent positives & negatives. A total of 10 systems reviewed and were otherwise negative. PAST MEDICAL HISTORY: See Below PAST SURGICAL HISTORY: See Below FAMILY HISTORY: See Below SOCIAL HISTORY: See Below HOME MEDICATIONS: See Below ALLERGIES: See Below VITALS: See Below PHYSICAL EXAMINATION: GENERAL: The patient is awake and alert. She is nonanxious appearing. EYES: The conjunctivae are clear. The pupils are round and reactive. EARS, NOSE, MOUTH AND THROAT: The nose is without any evidence of any deformity. NECK: The neck is nontender and supple. RESPIRATORY: Diminished breath sounds are noted throughout. There are rales in all lung edmonds. CARDIOVASCULAR: Regular rate and rhythm noted there no murmurs rubs or gallops normal S1 normal S2. GASTROINTESTINAL: The abdomen is soft and nondistended. Rectal exam revealed black stool which was heme positive. MUSCULOSKELETAL/EXTREMITIES: There is no evidence of gross deformity full range of motion is noted in the hips and shoulders. SKIN: Skin is warm and dry. Pedal edema is noted bilaterally NEUROLOGIC: Patient is awake alert and oriented x3. MEDICAL DECISION MAKING: The patient is a 80-year-old female who presented to the emergency department for an evaluation of generalized weakness and shortness of breath with exertion. She reported black stool to her home health nurse as was referred to the emergency department for further evaluation. The patient was having significant symptoms of anemia including shortness of breath with exertion and was found to have an elevated troponin. I discussed the patient's laboratory and radiographic studies with her. A type and screen was sent. I consented the patient for blood products. Blood transfusion was ordered. I discussed her case with the on-call [facility]. They have agreed to evaluate the patient in the emergency department for further management and disposition. The patient was also treated with Protonix. Triage Nursing notes reviewed. Prior medical records reviewed Vital Signs: reviewed and remarkable for tachycardia. Differential diagnosis: Infection, dehydration, metabolic abnormality, hypo/hyperglycemia, electrolyte disturbance, anemia, hypoxia, cardiac sources, intracerebral event, toxicologic, neurologic, as well as other pathologies. ER treatment provided: See below Diagnostics interpreted by me: ECG: EKG was obtained in the emergency department. My interpretation is ventricular paced rhythm at 106 bpm. There were no pauma beats. Left bundle branch block pattern was noted. This was compared to a tracing from September 19, 2020. No significant changes were noted. Cardiac Monitoring: An order was placed for continuous cardiac monitoring. The monitor shows a rate of 85 bpm with paced rhythm. Laboratory studies: As stated above and show below. Imaging studies: See below Consultation(s): I discussed this case with Dr. Farrell who is on-call for the [facility]. She will evaluate the patient in the emergency department for further management and disposition. ED COURSE: Procedures: none PDMP:reviewed and no issues Critical Care: I have personally spent greater than 50 minutes of critical care time in the direct management of this patient. This includes bedside care, interpretation of diagnostic studies, and testing, discussion with consultants, patient, and family members, and other required patient management activities. This 50 minutes is in excess of all separately billable procedures. Past Med/Surg History Medical History Acute on chronic diastolic heart failure Acute UTI (urinary tract infection) Anemia Angina pectoris CHI (closed head injury) Chronic kidney disease, stage IV (severe) Chronic respiratory failure with hypoxia and hypercapnia COPD with acute exacerbation Diabetes Diabetic foot ulcer associated with type 2 diabetes mellitus Diffuse large B-cell lymphoma of extranodal site (~08/2012) Dyslipidemia Elevated troponin Elevated troponin Fall Fracture of head of left humerus HTN (hypertension) Hypercarbia Hypertrophic cardiomyopathy Hypothyroidism Knee arthropathy Lung cancer Myocardial infarction Paroxysmal A-fib Peripheral neuropathy Proteinuria Thrombocytopenia Vitamin D deficiency Surgical History History of cardioversion History of cataract surgery History of lung surgery Hx of brain surgery Knee joint replacement status S/P cardiac catheterization S/P hysterectomy S/P tonsillectomy Family History Father Cancer Heart disease Diabetes Mother Stroke Hypertension Heart disease Grandmother (Maternal) Coronary heart disease Stroke Family/Other Multiple sclerosis Brother Coronary heart disease Grandfather (Maternal) Heart disease Grandfather (Paternal) Diabetes Aunt Muscular dystrophy Other Gallbladder disease Kidney stones Social History Smoking Status: Never smoker Second Hand Exposure: No; Hx Alcohol Use: No Hx Substance Use: No Preferred Language: [place] Verdean Communication Ability: Effective 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 Beliefs That Will Affect Care: None marital status: Current Living Situation: Spouse 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al status: retired 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: 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/Disabled - [employer] division How many Children do You have: 3 other: 3 children Feels Safe at Home: Yes Assistive Devices: Glasses and Walker Allergies Allergies Allergy/AdvReac Type Severity Reaction Status Date / Time eptifibatide Allergy Severe ANAPHYLAXIS Verified 10/20/20 11:47 hornet venom Allergy Severe WASP VENOM Verified 10/20/20 11:47 PROTEIN-ANAPHYLAXIS levofloxacin [From Levaquin] Allergy Severe Hives Verified 10/20/20 11:47 atorvastatin Allergy Intermediate MUSCLE PAIN Verified 10/20/20 11:47 ezetimibe Allergy Intermediate MUSCLE PAIN Verified 10/20/20 11:47 simvastatin Allergy Intermediate MUSCLE PAIN Verified 10/20/20 11:47 amlodipine AdvReac Severe Nausea Verified 10/20/20 11:47 azithromycin AdvReac Intermediate Palpitation Verified 10/20/20 11:47 s cortisone AdvReac Intermediate INCREASES Verified 10/20/20 11:47 SUGAR AND VOMITING? hydralazine AdvReac Intermediate VOMITING Verified 10/20/20 11:47 ibuprofen AdvReac Intermediate VOMITING Verified 10/20/20 11:47 AND DIARRHEA iodine AdvReac Intermediate SHELLFISH Verified 10/20/20 11:47 - VOMITING shellfish derived AdvReac Intermediate VOMITING Verified 10/20/20 11:47 Sulfa (Sulfonamide AdvReac Intermediate VOMITING Verified 10/20/20 11:47 Antibiotics) warfarin AdvReac Intermediate EXTREME Verified 10/20/20 11:47 BLEEDING TIMES codeine AdvReac Mild VOMITING Verified 10/20/20 11:47 gemfibrozil AdvReac Mild NAUSEA Verified 10/20/20 11:47 meperidine AdvReac Mild VOMITING Verified 10/20/20 11:47 ondansetron AdvReac Mild vomiting Verified 10/20/20 11:47 ranitidine [From Zantac] AdvReac Mild dyspepsia Verified 10/20/20 11:47 Home Meds Home Medications Medication Instructions Recorded Confirmed ascorbic acid (vitamin C) [Vitamin 1,000 mg PO QAM 06/20/18 10/20/20 C] multivitamin 1 tab PO QAM 06/20/18 10/20/20 nitroglycerin 0.4 mg sublingual 0.4 mg SL Q5M PRN #25 tab 02/26/19 10/20/20 tablet levothyroxine [Synthroid] 25 mcg PO QAM 06/04/19 10/20/20 buspirone 10 mg PO BID 07/12/19 10/20/20 sennosides 8.6 mg tablet 8.6 mg PO QAM tab 07/07/20 10/20/20 escitalopram oxalate 5 mg PO QAM 07/20/20 10/20/20 allopurinol 200 mg PO DAILY 08/08/20 10/20/20 potassium chloride 10 meq PO BID 08/08/20 10/20/20 pregabalin 200 mg capsule 200 mg PO BID 08/14/20 10/20/20 prednisone 5 mg tablet 2.5 mg PO DAILY tab 08/22/20 10/20/20 insulin lispro [Humalog KwikPen See Rx Instructions .ROUTE .COMPLEX 09/19/20 10/20/20 Insulin] acetaminophen 325 mg tablet 650 mg PO Q4H PRN tab 10/20/20 10/20/20 bisacodyl 10 mg rectal suppository 10 mg NH UD PRN ea 10/20/20 10/20/20 insulin glargine 100 unit/mL 30 unit SUBCUT BID ml 10/20/20 10/20/20 subcutaneous solution magnesium hydroxide PO PRN 10/20/20 10/20/20 mineral oil 118 ml NH UD PRN ml 10/20/20 10/20/20 Previous Rx's Medication Instructions Recorded ipratropium-albuterol 3 ml NEB QIDR PRN #90 ml 07/17/19 metoprolol tartrate 25 mg PO PM #30 tab 05/20/20 apixaban 5 mg tablet 5 mg PO BID #60 tab 09/18/20 furosemide 40 mg PO DAILY #0 tab 09/30/20 Results & Data (ED) Vital Signs Vital Signs - 24 hr 11/24/20 10:00 11/24/20 11:10 11/24/20 11:12 Temperature 36.5 C Temperature Source Temporal Artery Scan Pulse Rate 102 H 106 H 106 H Pulse Rate from SpO2 Sensor 106 H 106 H Respiratory Rate 20 15 19 Blood Pressure 116/73 109/62 Blood Pressure Mean 87 77 Blood Pressure Position Pulse Oximetry 94 100 100 Oxygen Delivery Method Nasal Cannula Nasal Cannula Nasal Cannula Oxygen Flow Rate 2 3 3 Sepsis Recent Fever Within 48 Hours No Sepsis New/Unexplained Change in Mental Status No Sepsis Action Taken by Nursing No Action Required 11/24/20 11:30 11/24/20 11:35 11/24/20 11:41 Temperature Temperature Source Pulse Rate 105 H 106 H Pulse Rate from SpO2 Sensor Respiratory Rate 22 22 Blood Pressure 125/82 Blood Pressure Mean 96 Blood Pressure Position Pulse Oximetry 97 96 Oxygen Delivery Method Nasal Cannula Nasal Cannula Nasal Cannula Oxygen Flow Rate 3 3 3 Sepsis Recent Fever Within 48 Hours Sepsis New/Unexplained Change in Mental Status Sepsis Action Taken by Nursing 11/24/20 12:00 11/24/20 12:30 11/24/20 13:00 Temperature Temperature Source Pulse Rate 102 H 103 H 102 H Pulse Rate from SpO2 Sensor 102 H 103 H 102 H Respiratory Rate 24 22 19 Blood Pressure 136/74 127/75 129/81 Blood Pressure Mean 94 92 97 Blood Pressure Position Pulse Oximetry 96 98 100 Oxygen Delivery Method Nasal Cannula Oxygen Flow Rate 3 Sepsis Recent Fever Within 48 Hours Sepsis New/Unexplained Change in Mental Status Sepsis Action Taken by Nursing 11/24/20 13:30 11/24/20 14:00 11/24/20 14:26 Temperature Temperature Source Pulse Rate 105 H 102 H 102 H Pulse Rate from SpO2 Sensor 105 H 102 H 102 H Respiratory Rate 24 20 22 Blood Pressure 130/80 127/77 131/76 Blood Pressure Mean 96 93 94 Blood Pressure Position Pulse Oximetry 100 100 100 Oxygen Delivery Method Nasal Cannula Nasal Cannula Nasal Cannula Oxygen Flow Rate 3 3 3 Sepsis Recent Fever Within 48 Hours Sepsis New/Unexplained Change in Mental Status Sepsis Action Taken by Nursing 11/24/20 14:28 11/24/20 14:30 11/24/20 14:43 Temperature 36.4 C L 36.4 C L Temperature Source Oral Oral Pulse Rate 102 H 102 H 103 H Pulse Rate from SpO2 Sensor 102 H Respiratory Rate 18 21 20 Blood Pressure 131/76 126/69 120/74 Blood Pressure Mean 94 88 89 Blood Pressure Position Sitting Standing Pulse Oximetry 100 100 99 Oxygen Delivery Method Nasal Cannula Oxygen Flow Rate 3 3 3 Sepsis Recent Fever Within 48 Hours Sepsis New/Unexplained Change in Mental Status Sepsis Action Taken by Nursing 11/24/20 14:44 11/24/20 15:00 11/24/20 15:15 Temperature 36.5 C Temperature Source Oral Pulse Rate 103 H 103 H 105 H Pulse Rate from SpO2 Sensor 103 H 98 H 105 H Respiratory Rate 24 10 L 18 Blood Pressure 120/74 130/77 130/83 Blood Pressure Mean 89 94 98 Blood Pressure Position Lying Pulse Oximetry 99 99 98 Oxygen Delivery Method Nasal Cannula Nasal Cannula Nasal Cannula Oxygen Flow Rate 3 3 3 Sepsis Recent Fever Within 48 Hours Sepsis New/Unexplained Change in Mental Status Sepsis Action Taken by Jail Medications Current Medication List: was personally reviewed by me Laboratory Data Attestation: I reviewed the patient's lab results. Result diagrams: 11/24/20 11:13 11/24/20 11:13 Lab Results 11/24/20 11/24/20 11/24/20 Range/Units 11:13 11:13 11:13 WBC 4.91 (4.8-10.8) K/uL RBC 3.54 L (4.2-5.4) M/uL Hgb 9.5 L (12.0-16.0) g/dL Hct 33.5 L (37-47) % MCV 94.6 (80-100) fL MCH 26.8 (25-34) pg MCHC 28.4 L (32-36) g/dL RDW Std Deviation 67.1 H (36.4-46.3) fL RDW Coeff of Nhi 19.7 H (11.5-14.5) % Plt Count 86 L (130-400) K/uL Absolute Nucleated RBC 0.04 H (0-0) K/uL Nucleated RBC % (auto) 0.9 % Platelet Estimate Decreased L (Normal) PT 10.7 (9.0-12.0) Seconds INR 1.1 (0.9-1.1) APTT 26.5 (21.0-31.0) Seconds PTT Ratio 1.0 Sodium (136-145) mmol/L Potassium (3.5-5.1) mmol/L Chloride (98-107) mmol/L Carbon Dioxide (21-32) mmol/L Anion Gap (3-11) BUN (7-18) mg/dl Creatinine (0.6-1.2) mg/dl Est Cr Clr Drug Dosing ml/min Est GFR ( Amer) Est GFR (Non-Af Amer) BUN/Creatinine Ratio (10-20) Glucose (70-99) mg/dl Calcium (8.5-10.1) mg/dl Total Bilirubin (0.2-1) mg/dl AST (15-37) U/L ALT (12-78) U/L Alkaline Phosphatase (45-117) U/L Troponin I (0-0.045) ng/ml Total Protein (6.4-8.2) gm/dl Albumin (3.4-5.0) gm/dl Globulin (2.5-4.0) gm/dl Albumin/Globulin Ratio (0.9-2) COVID-19 Eval Order SARS-CoV-2 (PCR) (Negative) Influenza Type A (PCR) (Neg) Influenza Type B (PCR) (Neg) RSV (RT-PCR) (Neg) Blood Type A Positive Antibody Screen NEGATIVE Crossmatch See Detail 11/24/20 11/24/20 11/24/20 Range/Units 11:13 12:00 12:00 WBC (4.8-10.8) K/uL RBC (4.2-5.4) M/uL Hgb (12.0-16.0) g/dL Hct (37-47) % MCV (80-100) fL MCH (25-34) pg MCHC (32-36) g/dL RDW Std Deviation (36.4-46.3) fL RDW Coeff of Nhi (11.5-14.5) % Plt Count (130-400) K/uL Absolute Nucleated RBC (0-0) K/uL Nucleated RBC % (auto) % Platelet Estimate (Normal) PT (9.0-12.0) Seconds INR (0.9-1.1) APTT (21.0-31.0) Seconds PTT Ratio Sodium 144 (136-145) mmol/L Potassium 4.4 (3.5-5.1) mmol/L Chloride 107 (98-107) mmol/L Carbon Dioxide 36 H (21-32) mmol/L Anion Gap 1.0 L (3-11) BUN 53 H (7-18) mg/dl Creatinine 1.86 H (0.6-1.2) mg/dl Est Cr Clr Drug Dosing 24.2 ml/min Est GFR ( Amer) 29.3 Est GFR (Non-Af Amer) 25.3 BUN/Creatinine Ratio 28.3 H (10-20) Glucose 133 H (70-99) mg/dl Calcium 8.3 L (8.5-10.1) mg/dl Total Bilirubin 0.8 (0.2-1) mg/dl AST 39 H (15-37) U/L ALT 55 (12-78) U/L Alkaline Phosphatase 120 H (45-117) U/L Troponin I 0.067 H* (0-0.045) ng/ml Total Protein 5.6 L (6.4-8.2) gm/dl Albumin 2.8 L (3.4-5.0) gm/dl Globulin 2.8 (2.5-4.0) gm/dl Albumin/Globulin Ratio 1.0 (0.9-2) COVID-19 Eval Order CovFluRsv at [facility] SARS-CoV-2 (PCR) NEGATIVE (Negative) Influenza Type A (PCR) Negative (Neg) Influenza Type B (PCR) Negative (Neg) RSV (RT-PCR) Negative (Neg) Blood Type Antibody Screen Crossmatch Administered Medications Discontinued Medications Pantoprazole Sodium 40 mg/ (Syringe) 10 mls @ 5 mls/min IV NOW ONE Stop: 11/24/20 11:29 Last Admin: 11/24/20 12:09 Dose: 5 mls/min Documented by: [id number] Imaging Data Radiologist's Impression: Chest X-Ray 11/24/20 11:27 XR chest 1V portable CLINICAL HISTORY: SOB COMPARISON STUDY: September 21, 2020 FINDINGS: The heart remains enlarged. There is a right subclavian dual-chamber central venous pacemaker. There is a left-sided Mediport catheter. There is stable left upper lobe atelectasis/scarring. There is continued radiographic ev idence of mild congestive failure/fluid overload. Indistinctness of left cardiophrenic angle persists.[ IMPRESSION: No significant change from the prior study. Persistent cardiomegaly and radiographic evidence of mild pulmonary vascular congestion/fluid overload. Postoperative changes present within the left upper lung zone. ACT 112: Negative or not required by law. Electronically signed by: Olaf Muir M.D. 11/24/2020 12:12 PM Discharge Plan Visit Data Chief Complaint: GI Bleed Stated Complaint: REFERRED DRCurry /ABBY VARGHESE ED Provider: Gerry Barbosa Discharge Problem: Acute upper gastrointestinal bleeding, Anemia, BARAHONA (dyspnea on exertion), Elevated troponin I level, Thrombocytopenia Patient Disposition: Being Evaluated by Hospitalist Condition: Good Forms Stand Alone Forms: [facility] [employer] Prescriptions Prescriptions: No Action pregabalin [Lyrica] 200 mg capsule 200 mg PO BID RF: 0 nitroglycerin 0.4 mg tablet, sublingual 0.4 mg SL Q5M PRN (Reason: Chest Pain) Qty: 25 RF: 0 Eliquis 5 mg tablet 5 mg PO BID Qty: 60 RF: 11 bisacodyl [Dulcolax (bisacodyl)] 10 mg suppository 10 mg NH UD PRN (Reason: constipation) RF: 0 magnesium hydroxide PO PRN (Reason: constipation) RF: 0 mineral oil [Fleet Mineral Oil] Enema 118 ml NH UD PRN (Reason: constipation) RF: 0 acetaminophen 325 mg tablet 650 mg PO Q4H PRN (Reason: fever or pain) RF: 0 Lantus U-100 Insulin 100 unit/mL solution 30 unit subcut BID RF: 0 sennosides [Senokot] 8.6 mg tablet 8.6 mg PO QAM RF: 0 multivitamin Tablet 1 tab PO QAM RF: 0 ascorbic acid (vitamin C) [Vitamin C] 1,000 mg Tablet 1,000 mg PO QAM RF: 0 levothyroxine [Synthroid] 25 mcg tablet 25 mcg PO QAM RF: 0 escitalopram oxalate 5 mg tablet 5 mg PO QAM RF: 0 prednisone 5 mg tablet 2.5 mg PO DAILY RF: 0 potassium chloride 10 mEq tablet extended release 10 meq PO BID RF: 0 allopurinol 100 mg tablet 200 mg PO DAILY RF: 0 insulin lispro [Humalog KwikPen Insulin] 100 unit/mL insulin pen See Rx Instructions .ROUTE .COMPLEX RF: 0 furosemide 20 mg tablet 40 mg PO DAILY Qty: 0 RF: 0 buspirone 10 mg tablet 10 mg PO BID RF: 0 ipratropium-albuterol 0.5 mg-3 mg(2.5 mg base)/3 mL Solution For Nebulization 3 ml NEB QIDR PRN (Reason: shortness of breath or wheezing) Qty: 90 RF: 0 metoprolol tartrate 50 mg Tablet 25 mg PO PM Qty: 30 RF: 0 Referrals Referrals: Lizet Jeter DO [Primary Care Provider] -
[2020-11-24 13:03] LABS: Influenza A virus by PCR Negative (Neg); Influenza B virus by PCR Negative (Neg); RSV by PCR Negative (Neg); SARS CoV2 RNA(COVID-19) InHosp NEGATIVE (Negative)
[2020-11-24] MEDS ORDERED: SODIUM CHLORIDE 0.9% 250 ML IV PRN (13:08)
--- NOTE | 2020-11-24 14:22 | Electrocardiogram Report ---
Test Reason : Blood Pressure : / mmHG Vent. Rate : 106 BPM Atrial Rate : 106 BPM P-R Int : 000 ms QRS Dur : 168 ms QT Int : 412 ms P-R-T Axes : 000 264 095 degrees QTc Int : 547 ms Atrial sensing, ventricular pacing Abnormal ECG When compared with ECG of 19-SEP-2020 03:06, Atrial sensing, ventricular pacing replaces Sequential atrial-ventricular pacing Vent. rate has increased BY 32 BPM Confirmed by Iggy Fisher ([id number]) on 11/24/2020 2:22:39 PM Referred By: REFERRED SELF Confirmed By:Iggy Fisher
--- NOTE | 2020-11-24 16:16 | History & Physical Report ---
Date of Service November 24, 2020 Assessment & Plan (1) Acute upper gastrointestinal bleeding: Presents with melena times at least 3 days, vague history. Also reports of taking Pepto-Bismol recently. However, was noted to be heme positive by ER physician on examination. Hemoglobin down slightly to 9.5 on admission from 11.1 six weeks prior She is on chronic prednisone for her PMR and this does place her at risk for peptic ulcer disease. She is also on Eliquis and is supposed to be on clopidog rel but has not been taking it as per She is hemodynamically stable but had a mildly elevated troponin and was dyspneic on exertion-was given 1 unit PRBCs in the ER Follow CBC this evening and again in the morning Consult GI to see about EGD, but if stabilizes, may not need scoped -N.p.o. after midnight in case of EGD for tomorrow, can have clear liquids diet now -Start Protonix 40 mg IV twice daily and continue home Pepcid -Hold Eliquis -Give usual p.o. Lasix this afternoon after transfusion as she did not take it this morning (2) Anemia: As above, chronic, baseline hemoglobin 9.2-11.9 With drop as above possibly due to GI bleeding -Received 1 unit PRBCs in the ER as above Follow serial CBC (3) BARAHONA (dyspnea on exertion): Secondary to anemia versus CHF (4) Elevated troponin I level: Mildly elevated 0.06 and has had chronically elevated troponins in the past With a history of underlying CAD with multiple percutaneous interventions Denies any chest pain, no ischemic changes acutely on EKG -Trend serial troponin (5) Thrombocytopenia: Platelets low at 86, has been low in the past like this before and typically runs at the low end of normal Spleen noted to be normal on recent CT abdomen/pelvis, normal liver function and appearance on imaging Does have a history of diffuse large B cell lymphoma in the past Follow-up with hematology as an outpatient Follow CBC in the morning (6) Lower extremity edema: With a history of cor pulmonale and chronic diastolic CHF Continue home Lasix Follow daily weights, strict I's and O's, low-sodium diet once diet is resumed (7) Dementia: Mild to moderate in nature Supportive care Has a history of sundowning and hospital delirium in the past (8) Chronic kidney disease, stage IV (severe): CKD stage III-IV Creatinine is at 1.86 which is at or below her baseline -Avoid nephrotoxins -renally dose meds when appropriate -follow BMP -Change home Lyrica dosing from 200 mg p.o. twice daily down to 75 mg p.o. twice daily (9) Hypothyroidism: TSH normal at 1.64 in 10/2020 Continue home dose of levothyroxine (10) Coronary artery disease: As above, with a history of numerous percutaneous interventions Somewhere along the way in the last few months, Plavix is dropped off of her medication list and it is unclear why Given the current GI bleeding, will continue to hold off on restarting this, but does need to be addressed at some point in the near future prior to discharge Continue home metoprolol She is intolerant to statin drugs (11) Chronic respiratory failure with hypoxia and hypercapnia: Is on 3 L nasal cannula chronically and BiPAP at nighttime-continue such while here (12) CHF (congestive heart failure): Chronic diastolic CHF and cor pulmonale Most recent echocardiogram in 08/2020 with borderline reduced LV function, right ventricle mildly dilated with mildly reduced systolic function, elevated RVSP at 40-50 No acute issues at this time but will give p.o. Lasix after her blood transfusion today Continue home p.o. Lasix, blood pressure control (13) Diabetic polyneuropathy: Reduce home dosing of Lyrica to 75 mg p.o. twice daily for renal dosing (14) Pacemaker: Status post AV node ablation with pacemaker placement, she is almost completely dependent on pacemaker Follows with cardiology (15) Paroxysmal A-fib: With persistent atrial fibrillation requiring AV clairsse ablation and pacemaker placement Holding Eliquis as above for GI bleeding Continue metoprolol (16) Polymyalgia rheumatica: Continue chronic prednisone 2.5 mg p.o. once daily No need for stress dose steroids at this time (17) Diabetes: Hemoglobin A1c 7.1% in 07/2020 Basaglar is being prescribed to her but is not included on the home medication reconciliation Unclear what she is actually taking now other than the mealtime insulin listed on her home medication list Accu-Cheks and NovoLog supplemental insulin with meals Consult glycemic pharmacy control (18) Depression with anxiety: Continue home Lexapro, BuSpar No acute issues (19) DVT prophylaxis: SCDs, holding home Eliquis as above for GI bleed Disposition-admit to PCU DNR/DNI History of Present Illness Chief Complaint: Shortness of breath Primary Care Provider: Lizet Jeter DO This patient is a 80-year-old female with a history of chronic systolic CHF, CAD, CKD stage IV, dementia, chronic respiratory failure with hypoxia and hypercapnia on 3 LNC and BiPAP at bedtime and with naps, hypothyroidism, PMR on chronic prednisone, DM 2, ICD/PPM, hyperlipidemia, diffuse large B-cell lymphoma with history of partial left lobectomy in 2013, diabetic polyneuropathy, anxiety/depression, gout, vitamin D deficiency who presents to the ER with generalized weakness and lower extremity swelling of the last few weeks. She also was noted to have black stool for the last few days as per her , but has been using Pepto-Bismol at home as per ER physician report. Most of history obtained from the on the phone as the patient has difficulty giving an accurate history. She reports having some lower "menstrual cramps" type of abdominal pain, but no nausea/vomiting. A visiting nurse noted her black stool this morning and referred her to the ER for further evaluation. She denies any chest pain or recent falls. She is on Eliquis at home for her atrial fibrillation. She was heme positive in the ER and her hemoglobin was noted to be 9.5 down from 11.13 weeks ago. Of note, her baseline hemoglobin is anywhere from 9.2-11.9. Her troponin was mildly elevated at 0.067, however she frequently has mildly elevated troponins in the most of her previous frequent admissions to the hospital. In the ER, she was given 1 unit of PRBCs for symptomatic anemia with GI bleed in the setting of elevated troponin and dyspnea. Her Covid, RSV, influenza test was negative. Her chest x-ray shows persistent cardiomegaly and mild pulmonary vascular con gestion/fluid overload. Allergies Allergy/AdvReac Type Severity Reaction Status Date / Time eptifibatide Allergy Severe ANAPHYLAXIS Verified 11/24/20 16:18 hornet venom Allergy Severe WASP VENOM Verified 11/24/20 16:19 PROTEIN-ANAPHYLAXIS levofloxacin [From Levaquin] Allergy Severe Hives Verified 11/24/20 16:19 atorvastatin Allergy Intermediate MUSCLE PAIN Verified 11/24/20 16:19 ezetimibe Allergy Intermediate MUSCLE PAIN Verified 11/24/20 16:19 simvastatin Allergy Intermediate MUSCLE PAIN Verified 11/24/20 16:19 rosuvastatin [From Crestor] Allergy Rash Unverified 11/24/20 16:23 amlodipine AdvReac Severe Nausea Verified 11/24/20 16:19 azithromycin AdvReac Intermediate Palpitation Verified 11/24/20 16:20 s cortisone AdvReac Intermediate INCREASES Verified 11/24/20 16:20 SUGAR AND VOMITING? hydralazine AdvReac Intermediate VOMITING Verified 11/24/20 16:20 ibuprofen AdvReac Intermediate VOMITING Verified 11/24/20 16:24 AND DIARRHEA iodine AdvReac Intermediate SHELLFISH Verified 11/24/20 16:28 - VOMITING shellfish derived AdvReac Intermediate VOMITING Verified 11/24/20 16:20 Sulfa (Sulfonamide AdvReac Intermediate VOMITING Verified 11/24/20 16:30 Antibiotics) warfarin AdvReac Intermediate EXTREME Verified 11/24/20 16:22 BLEEDING TIMES codeine AdvReac Mild VOMITING Verified 11/24/20 16:21 gemfibrozil AdvReac Mild NAUSEA Verified 11/24/20 16:24 meperidine AdvReac Mild VOMITING Verified 11/24/20 16:23 ondansetron AdvReac Mild vomiting Verified 11/24/20 16:26 ranitidine [From Zantac] AdvReac Mild dyspepsia Verified 10/20/20 11:47 Home Medications Medication Instructions Recorded Confirmed Type multivitamin 1 tab PO QAM 06/20/18 11/24/20 History nitroglycerin 0.4 mg sublingual 0.4 mg SL Q5M PRN #25 tab 02/26/19 11/24/20 History tablet levothyroxine [Synthroid] 25 mcg PO QAM 06/04/19 11/24/20 History buspirone 10 mg PO BID 07/12/19 11/24/20 History sennosides 8.6 mg tablet 8.6 mg PO QAM PRN tab 07/07/20 11/24/20 History escitalopram oxalate 5 mg PO QAM 07/20/20 11/24/20 History allopurinol 200 mg PO QAM 08/08/20 11/24/20 History potassium chloride 10 meq PO BID 08/08/20 11/24/20 History prednisone 5 mg tablet 2.5 mg PO DAILY tab 08/22/20 11/24/20 History apixaban 5 mg tablet 5 mg PO BID #60 tab 09/18/20 11/24/20 Rx insulin lispro [Humalog KwikPen 15 unit SUBCUT TID 09/19/20 11/24/20 History Insulin] furosemide 40 mg PO DAILY #0 tab 09/30/20 11/24/20 Rx acetaminophen 325 mg tablet 325 mg PO Q4H PRN tab 10/20/20 11/24/20 History albuterol sulfate 2.5 mg CONTINUOUS NEBULIZATION Q6H 11/24/20 11/24/20 History PRN clopidogrel 75 mg PO QAM 11/24/20 11/24/20 History ergocalciferol (vitamin D2) 50,000 unit PO WK 11/24/20 11/24/20 History famotidine 20 mg PO BID 11/24/20 11/24/20 History ipratropium-albuterol 3 ml INHALATION Q6H PRN 11/24/20 11/24/20 History metoprolol tartrate 25 mg PO BID 11/24/20 11/24/20 History Past Med/Surg History Medical History Acute on chronic diastolic heart failure Acute UTI (urinary tract infection) Anemia Angina pectoris CHI (closed head injury) Chronic kidney disease, stage IV (severe) Chronic respiratory failure with hypoxia and hypercapnia COPD with acute exacerbation Diabetes Diabetic foot ulcer associated with type 2 diabetes mellitus 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) Dyslipidemia Elevated troponin Elevated troponin Fall Fracture of head of left humerus HTN (hypertension) Hypercarbia Hypertrophic cardiomyopathy apical variant Hypothyroidism Knee arthropathy Lung cancer Myocardial infarction X4 Paroxysmal A-fib Peripheral neuropathy Proteinuria Thrombocytopenia Vitamin D deficiency Surgical History History of cardioversion MULTIPLE History of cataract surgery History of lung surgery PARTIAL LEFT LOBECTOMY (2013) Hx of brain surgery 2017 S/P FALL/INJURY; SUBSEQUENT BLOOD CLOT EVACUATION Knee joint replacement status S/P cardiac catheterization 7 TOTAL; CARDIAC STENTS X6 S/P hysterectomy S/P tonsillectomy Family History Father Cancer Heart disease Diabetes Mother Stroke Hypertension Heart disease Grandmother (Maternal) Coronary heart disease Stroke Family/Other Multiple sclerosis Brother Coronary heart disease Grandfather (Maternal) Heart disease Grandfather (Paternal) Diabetes Aunt Muscular dystrophy Other Gallbladder disease Kidney stones Social History Smoking Status: Never smoker Second Hand Exposure: No; Hx Alcohol Use: No Hx Substance Use: No Preferred Language: Mohawk Communication Ability: Effective Integration Engineer Required: No Beliefs That Will Affect Care: None marital status: Current Living Situation: Spouse 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al status: retired 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: Retired/Disabled - [employer] How many Children do You have: 3 Other Information That Helps Us Care for You: No other: 3 children Feels Safe at Home: Yes Safety Concerns: Feels Safe At This Time Assistive Devices: CPAP, Oxygen - Continuous and Walker Review of Systems Review of Systems: All systems reviewed & are unremarkable except as noted in HPI & below Physical Exam Constitutional: WD/WN, vitals as above Eyes: PERRL, conjunctivae normal, anicteric sclerae ENMT: external ear and nose normal, oropharynx normal Neck: trachea midline, no thyromegaly Respiratory: normal respiratory effort, lungs clear to auscultation Cardiovascular: Rate/Rhythm: regular rate and regular rhythm Heart Sounds: no murmur Extremities: + edema (1+ pitting edema of the legs bilaterally) Chest (Breasts): Chest: normal inspection of chest Gastrointestinal (Abdomen): normal bowel sounds, soft, nontender, no hepatosplenomegaly Musculoskeletal: Extremities: extremities normal to inspection; no cyanosis and no clubbing Skin: no rashes, warm and dry Neurologic: moves all extremities and awake; no focal motor deficits Psychiatric: Orientation: alert, oriented to person and cooperative Eye Contact: good eye contact Speech: normal rate/rhythm/volume of speech Affect: euthymic affect Insight: + limited insight Lymphatic: no lymphedema Results & Data Results & Data ([facility]) Vital Signs (Past 12 Hours) Vital Signs Temp Pulse Resp BP Pulse Ox 11/24/20 15:45 105 H 22 128/70 98 11/24/20 15:30 96 H 20 120/76 98 11/24/20 15:29 36.5 C 96 H 20 120/72 99 11/24/20 15:15 105 H 18 130/83 98 11/24/20 15:00 103 H 10 L 130/77 99 11/24/20 14:59 36.4 C L 100 H 22 130/74 99 11/24/20 14:44 36.5 C 103 H 24 120/74 99 11/24/20 14:43 36.4 C L 103 H 20 120/74 99 11/24/20 14:30 102 H 21 126/69 100 11/24/20 14:28 36.4 C L 102 H 18 131/76 100 11/24/20 14:26 102 H 22 131/76 100 11/24/20 14:00 102 H 20 127/77 100 11/24/20 13:30 105 H 24 130/80 100 11/24/20 13:00 102 H 19 129/81 100 11/24/20 12:30 103 H 22 127/75 98 11/24/20 12:00 102 H 24 136/74 96 11/24/20 11:41 106 H 22 96 11/24/20 11:35 105 H 22 97 11/24/20 11:30 125/82 11/24/20 11:12 106 H 19 100 11/24/20 11:10 106 H 15 109/62 100 11/24/20 10:00 36.5 C 102 H 20 116/73 94 Laboratory Results 11/24/20 11/24/20 11/24/20 Range/Units 12:00 12:00 11:13 WBC (4.8-10.8) K/uL RBC (4.2-5.4) M/uL Hgb (12.0-16.0) g/dL Hct (37-47) % MCV (80-100) fL MCH (25-34) pg MCHC (32-36) g/dL RDW Std Deviation (36.4-46.3) fL RDW Coeff of Nhi (11.5-14.5) % Plt Count (130-400) K/uL Absolute Nucleated RBC (0-0) K/uL Nucleated RBC % (auto) % Platelet Estimate (Normal) PT (9.0-12.0) Seconds INR (0.9-1.1) APTT (21.0-31.0) Seconds PTT Ratio Sodium 144 (136-145) mmol/L Potassium 4.4 (3.5-5.1) mmol/L Chloride 107 (98-107) mmol/L Carbon Dioxide 36 H (21-32) mmol/L Anion Gap 1.0 L (3-11) BUN 53 H (7-18) mg/dl Creatinine 1.86 H (0.6-1.2) mg/dl Est Cr Clr Drug Dosing 24.2 ml/min Est GFR ( Amer) 29.3 Est GFR (Non-Af Amer) 25.3 BUN/Creatinine Ratio 28.3 H (10-20) Glucose 133 H (70-99) mg/dl Calcium 8.3 L (8.5-10.1) mg/dl Total Bilirubin 0.8 (0.2-1) mg/dl AST 39 H (15-37) U/L ALT 55 (12-78) U/L Alkaline Phosphatase 120 H (45-117) U/L Troponin I 0.067 H* (0-0.045) ng/ml Total Protein 5.6 L (6.4-8.2) gm/dl Albumin 2.8 L (3.4-5.0) gm/dl Globulin 2.8 (2.5-4.0) gm/dl Albumin/Globulin Ratio 1.0 (0.9-2) COVID-19 Eval Order CovFluRsv at [facility] SARS-CoV-2 (PCR) NEGATIVE (Negative) Influenza Type A (PCR) Negative (Neg) Influenza Type B (PCR) Negative (Neg) RSV (RT-PCR) Negative (Neg) Blood Type Antibody Screen Crossmatch 11/24/20 11/24/20 11/24/20 Range/Units 11:13 11:13 11:13 WBC 4.91 (4.8-10.8) K/uL RBC 3.54 L (4.2-5.4) M/uL Hgb 9.5 L (12.0-16.0) g/dL Hct 33.5 L (37-47) % MCV 94.6 (80-100) fL MCH 26.8 (25-34) pg MCHC 28.4 L (32-36) g/dL RDW Std Deviation 67.1 H (36.4-46.3) fL RDW Coeff of Nhi 19.7 H (11.5-14.5) % Plt Count 86 L (130-400) K/uL Absolute Nucleated RBC 0.04 H (0-0) K/uL Nucleated RBC % (auto) 0.9 % Platelet Estimate Decreased L (Normal) PT 10.7 (9.0-12.0) Seconds INR 1.1 (0.9-1.1) APTT 26.5 (21.0-31.0) Seconds PTT Ratio 1.0 Sodium (136-145) mmol/L Potassium (3.5-5.1) mmol/L Chloride (98-107) mmol/L Carbon Dioxide (21-32) mmol/L Anion Gap (3-11) BUN (7-18) mg/dl Creatinine (0.6-1.2) mg/dl Est Cr Clr Drug Dosing ml/min Est GFR ( Amer) Est GFR (Non-Af Amer) BUN/Creatinine Ratio (10-20) Glucose (70-99) mg/dl Calcium (8.5-10.1) mg/dl Total Bilirubin (0.2-1) mg/dl AST (15-37) U/L ALT (12-78) U/L Alkaline Phosphatase (45-117) U/L Troponin I (0-0.045) ng/ml Total Protein (6.4-8.2) gm/dl Albumin (3.4-5.0) gm/dl Globulin (2.5-4.0) gm/dl Albumin/Globulin Ratio (0.9-2) COVID-19 Eval Order SARS-CoV-2 (PCR) (Negative) Influenza Type A (PCR) (Neg) Influenza Type B (PCR) (Neg) RSV (RT-PCR) (Neg) Blood Type A Positive Antibody Screen NEGATIVE Crossmatch See Detail Diagnostic Findings Chest X-Ray 11/24/20 11:27 XR chest 1V portable CLINICAL HISTORY: SOB COMPARISON STUDY: September 21, 2020 FINDINGS: The heart remains enlarged. There is a right subclavian dual-chamber central venous pacemaker. There is a left-sided Mediport catheter. There is sta ble left upper lobe atelectasis/scarring. There is continued radiographic evidence of mild congestive failure/fluid overload. Indistinctness of left cardiophrenic angle persists.[ IMPRESSION: No significant change from the prior study. Persistent cardiomegaly and radiographic evidence of mild pulmonary vascular congestion/fluid overload. Postoperative changes present within the left upper lung zone. ACT 112: Negative or not required by law. Electronically signed by: Olaf Muir M.D. 11/24/2020 12:12 PM ECG Additional Comments: ECG on 11/24/2020 at 11:34 AM with atrial sensing, ventricular pacing rhythm, rate 106 Code Status & VTE Plan Code Status DNR/DNI VTE Prophylaxis Plan VTE Prophylaxis will be ordered: Yes PG Care Time/CCT Total # of Minutes Spent Total Time Spent with Patient: Total time spent is greater than 50% in coordination of care (as documented) at patient's floor/unit and/or counseling patient: Coding Level of Care Code 28886 Initial Inpt Care Lvl 3 Diagnoses Acute upper gastrointestinal bleeding K92.2 Anemia D64.9 Anemia type: unspecified type BARAHONA (dyspnea on exertion) R06.00 Elevated troponin I level R77.8 Thrombocytopenia D69.6 Lower extremity edema R60.0 Dementia F03.90 Dementia behavioral disturbance: without behavioral disturbance Dementia type: unspecified type Chronic kidney disease, stage IV (severe) N18.4 Hypothyroidism E03.9 Hypothyroidism type: unspecified Coronary artery disease I25.10 Associated angina: without angina Coronary Disease-Associated Artery/Lesion type: [place] artery [place] vs. transplanted heart: [place] heart Chronic respiratory failure with hypoxia and hypercapnia J96.11; J96.12 CHF (congestive heart failure) I50.9 Heart failure chronicity: chronic Heart failure type: unspecified Diabetic polyneuropathy E11.42 Pacemaker Z95.0 Paroxysmal A-fib I48.0 Polymyalgia rheumatica M35.3 Diabetes E11.9; Z79.4 Diabetes mellitus type: type 2 Diabetes mellitus termite treater helper insulin use: with termite treater helper use Diabetes mellitus complication status: without complication Depression with anxiety F41.8 DVT prophylaxis Z29.9 (1) Coronary artery disease Associated angina: without angina Coronary Disease-Associated Artery/Lesion type: [place] artery [place] vs. transplanted heart: [place] heart Qualified Code(s): I25.10 - Atherosclerotic heart disease of [place] coronary artery without angina pectoris (2) CHF (congestive heart failure) Heart failure chronicity: chronic Heart failure type: unspecified Qualified Code(s): I50.9 - Heart failure, unspecified (3) Anemia Anemia type: unspecified type Qualified Code(s): D64.9 - Anemia, unspecified (4) Dementia Dementia behavioral disturbance: without behavioral disturbance Dementia type: unspecified type Qualified Code(s): F03.90 - Unspecified dementia without behavioral disturbance (5) Hypothyroidism Hypothyroidism type: unspecified Qualified Code(s): E03.9 - Hypothyroidism, unspecified (6) Diabetes Diabetes mellitus type: type 2 Diabetes mellitus residential insulin use: with residential use Diabetes mellitus complication status: without complication Qualified Code(s): E11.9 - Type 2 diabetes mellitus without complications; Z79.4 - assisted (current) use of insulin
[2020-11-24] MEDS ORDERED: PHARMACY GLYCEMIC MGMT CONSULT STA (17:21)
[2020-11-24] MEDS: FUROSEMIDE 20 MG TAB PO SCH (17:59)
[2020-11-24] MEDS ORDERED: NITROGLYCERIN SL 0.4 MG/TAB TAB SL PRN (19:52)
[2020-11-24] MEDS ORDERED: DEXTROSE 50% 50 ML SYRINGE IV PRN (19:52)
[2020-11-24] MEDS ORDERED: CARBOHYDRATES FOR HYPOGLYCEMIA PO PRN (19:52)
[2020-11-24] MEDS ORDERED: SENNA 8.6 MG TAB PO PRN (19:52)
[2020-11-24] MEDS ORDERED: GLUCOSE 40% GEL 15 GM TUBE PO PRN (19:52)
[2020-11-24] MEDS ORDERED: ALBUTEROL 0.083% NEBU SOLN 3 ML VIAL NEB PRN (19:52)
[2020-11-24] MEDS ORDERED: ONDANSETRON INJ 2 MG/ML 2 ML VIAL IV PRN (19:52)
[2020-11-24] MEDS ORDERED: GLUCAGON FOR INJ 1 MG VIAL SQ PRN (19:52)
[2020-11-24] MEDS ORDERED: GLUCOSE 10 TABS/TUBE PO PRN (19:52)
[2020-11-24] MEDS ORDERED: ACETAMINOPHEN 325 MG TAB PO PRN (19:52)
[2020-11-24] MEDS ORDERED: PHARMACY GLYCEMIC MGMT CONSULT PRN (20:10)
[2020-11-24] MEDS: POTASSIUM CHLORIDE 10 MEQ TABCR PO SCH (21:03)
[2020-11-24] MEDS: FAMOTIDINE 20 MG TAB PO SCH (21:03)
[2020-11-24] MEDS: METOPROLOL TARTRATE 25 MG TAB PO SCH (21:04)
[2020-11-24] MEDS: busPIRone 5 MG TAB PO SCH (21:04)
[2020-11-24] MEDS: INSULIN ASPART 100 UNITS/ML 3 ML PEN SC SCH (21:05)
[2020-11-24] MEDS: PREGABALIN 75 MG CAP PO SCH (21:06)
[2020-11-24 22:41] LABS: Hematocrit (blood only) 36.4 % (37-47); Hemoglobin 10.5 g/dL (12.0-16.0); Mean Corpuscular Hemoglobin 27.3 pg (25-34); Mean Corpuscular Hgb Conc 28.8 g/dL (32-36); Mean Corpuscular Volume 94.5 fL (80-100); Platelet Count 72 K/uL (130-400); Platelet Estimate Decreased (Normal); RDW Coefficient of Variation 19.1 % (11.5-14.5); RDW Standard Deviation 64.2 fL (36.4-46.3); Red Blood Count 3.85 M/uL (4.2-5.4)
[2020-11-24] MEDS ORDERED: HEPARIN 100 UNIT/ML 5ML FLUSH FLUSH PRN (23:48)
[2020-11-25 05:58] LABS: Nucleated RBC # (auto) 0.04 K/uL (0-0); Nucleated RBC % (auto) 0.8 %
[2020-11-25 06:13] LABS: Hematocrit (blood only) 37.6 % (37-47); Hemoglobin 10.9 g/dL (12.0-16.0); Mean Corpuscular Hemoglobin 27.6 pg (25-34); Mean Corpuscular Volume 95.2 fL (80-100); RDW Coefficient of Variation 19.1 % (11.5-14.5); RDW Standard Deviation 65.2 fL (36.4-46.3); Red Blood Count 3.95 M/uL (4.2-5.4); White Blood Count 4.81 K/uL (4.8-10.8)
[2020-11-25 06:21] LABS: Estimated Average Glucose 146 mg/dl; Hemoglobin A1C 6.7 % (4.5-5.6)
[2020-11-25 06:24] LABS: Albumin Level 3.1 gm/dl (3.4-5.0); BUN Creatinine Ratio 25.7 (10-20); Calcium 8.5 mg/dl (8.5-10.1); Est GFR (African American) 27.3; Est GFR (Non-African American) 23.6; Potassium 4.7 mmol/L (3.5-5.1)
[2020-11-25 06:26] LABS: Albumin Globulin Ratio 1.1 (0.9-2); Bilirubin,Total 1.2 mg/dl (0.2-1); Globulin 2.8 gm/dl (2.5-4.0); Total Protein 5.9 gm/dl (6.4-8.2)
[2020-11-25 06:33] LABS: Platelet Count 72 K/uL (130-400)
[2020-11-25 06:36] LABS: Basophils # (auto) 0.01 K/uL (0-0.2); Basophils % (auto) 0.2 %; Eosinophils # (auto) 0.05 K/uL (0-0.5); Giant Platelets 3+; Immature Granulocytes # (auto) 0.07 K/uL (0.00-0.02); Immature Granulocytes % (auto) 1.5 %; Lymphocytes # (auto) 0.85 K/uL (1.2-3.4); Lymphocytes % (auto) 17.7 %; Monocytes # (auto) 0.39 K/uL (0.11-0.59); Monocytes % (auto) 8.1 %; Neutrophils # (auto) 3.44 K/uL (1.4-6.5); Neutrophils % (auto) 71.5 %; Platelet Estimate Decreased (Normal); Polychromasia 1+
[2020-11-25] MEDS: FUROSEMIDE 20 MG TAB PO SCH (08:45)
[2020-11-25] MEDS: PANTOprazole 40 MG in SYRINGE 0 ML IV SCH ×2 (08:45→21:41)
[2020-11-25] MEDS: predniSONE 2.5 MG TAB PO SCH (08:46)
[2020-11-25] MEDS: busPIRone 5 MG TAB PO SCH ×2 (08:46→21:12)
[2020-11-25] MEDS: MULTIVITAMIN TAB PO SCH (08:46)
[2020-11-25] MEDS: allopurinoL 100 MG TAB PO SCH (08:46)
[2020-11-25] MEDS: LEVOTHYROXINE SODIUM 25 MCG TABLET PO SCH (08:46)
[2020-11-25] MEDS: POTASSIUM CHLORIDE 10 MEQ TABCR PO SCH ×2 (08:46→21:12)
[2020-11-25] MEDS: FAMOTIDINE 20 MG TAB PO SCH ×2 (08:46→21:12)
[2020-11-25] MEDS: ESCITALOPRAM OXALATE 10 MG TAB PO SCH (08:47)
[2020-11-25] MEDS: METOPROLOL TARTRATE 25 MG TAB PO SCH ×2 (08:47→21:11)
--- NOTE | 2020-11-25 08:47 | Gastrointestinal Consultation ---
Date of Consultation November 25, 2020 Assessment & Plan (1) Complaint of melena: The patient is a pleasant 80-year-old female who is a poor historian who presented to the emergency department with complaints of melena. Heme positive in the emergency department. She received 1 unit of packed red blood cells in the emergency department for symptomatic anemia. She is on Eliquis and chronic prednisone. Prescribed clopidogrel but not taking per her spouse. Plan for today is EGD by Dr. Blunt. Remain n.p.o., continue Protonix IV twice daily. Will continue to follow patient. Please refer to supervising physician addendum for further recommendations. History of Present Illness Attending Physician: Mirna Hankins MD History of Present Illness The patient is a pleasant 80-year-old female with past medical history to include stage IV chronic kidney disease, COPD, 2 diabetes, diastolic CHF, diffuse large B-cell lymphoma (08/2012), dyslipidemia, hypertension, hypertrophic cardiomyopathy, hypothyroidism, history of myocardial infarction x4, peripheral neuropathy, proteinuria, subdural hematoma, chronic thrombocytopenia, vitamin D deficiency who presented to the emergency department 11/24/2020 with complaints of melena. Subsequently admitted and GI consult was placed due to melena. On exam/interview today, the patient reports she is having some bilateral lower abdominal discomfort. She is a poor historian. She reports she is having black stools. Reports ongoing nausea. Denies vomiting. Reports history of non- Hodgkin's lymphoma sees Dr. Serrano in the cancer center. She also was noted to have black stool for the last few days as per her , but has been using Pepto-Bismol at home as per ER physician report. Per history, reports having some lower "menstrual cramps" type of abdominal pain. A visiting nurse noted her black stool this morning and referred her to the ER for further evaluation. She is on Eliquis at home for her atrial fibrillation. Chronic prednisone use. Plavix prescribed but not using. She was heme positive in the ER and her hemoglobin was noted to be 9.5 down from 11.13 weeks ago. In the ER, she was given 1 unit of PRBCs for symptomatic anemia with GI bleed. Records are reviewed: 06/24/2010: Colonoscopy notes reviewed performed by Dr. Solis demonstrated transverse colon polyp, descending colon polyp, sigmoid colon polyp, diverticulosis 09/30/2015: EGD notes reviewed performed by Dr. Rothman due to complaints of dysphasia demonstrated regular Z line found at 40 cm from incisors; dilation performed with savory dilator with no resistance to 16 mm and 18 mm. Normal stomach. Normal examined duodenum. 05/14/2020: EGD demonstrated regular z-line, 40cm from incisors. Normal esophagus. Normal stomach. Normal examined stomach. No specimens were collected. Allergies Allergy/AdvReac Type Severity Reaction Status Date / Time eptifibatide Allergy Severe ANAPHYLAXIS Verified 11/24/20 16:18 hornet venom Allergy Severe WASP VENOM Verified 11/24/20 16:19 PROTEIN-ANAPHYLAXIS levofloxacin [From Levaquin] Allergy Severe Hives Verified 11/24/20 16:19 atorvastatin Allergy Intermediate MUSCLE PAIN Verified 11/24/20 16:19 ezetimibe Allergy Intermediate MUSCLE PAIN Verified 11/24/20 16:19 simvastatin Allergy Intermediate MUSCLE PAIN Verified 11/24/20 16:19 rosuvastatin [From Crestor] Allergy Rash Unverified 11/24/20 16:23 amlodipine AdvReac Severe Nausea Verified 11/24/20 16:19 azithromycin AdvReac Intermediate Palpitation Verified 11/24/20 16:20 s cortisone AdvReac Intermediate INCREASES Verified 11/24/20 16:20 SUGAR AND VOMITING? hydralazine AdvReac Intermediate VOMITING Verified 11/24/20 16:20 ibuprofen AdvReac Intermediate VOMITING Verified 11/24/20 16:24 AND DIARRHEA iodine AdvReac Intermediate SHELLFISH Verified 11/24/20 16:28 - VOMITING shellfish derived AdvReac Intermediate VOMITING Verified 11/24/20 16:20 Sulfa (Sulfonamide AdvReac Intermediate VOMITING Verified 11/24/20 16:30 Antibiotics) warfarin AdvReac Intermediate EXTREME Verified 11/24/20 16:22 BLEEDING TIMES codeine AdvReac Mild VOMITING Verified 11/24/20 16:21 gemfibrozil AdvReac Mild NAUSEA Verified 11/24/20 16:24 meperidine AdvReac Mild VOMITING Verified 11/24/20 16:23 ondansetron AdvReac Mild vomiting Verified 11/24/20 16:26 ranitidine [From Zantac] AdvReac Mild dyspepsia Verified 10/20/20 11:47 Home Medications Medication Instructions Recorded Confirmed Type multivitamin 1 tab PO QAM 06/20/18 11/24/20 History nitroglycerin 0.4 mg sublingual 0.4 mg SL Q5M PRN #25 tab 02/26/19 11/24/20 History tablet levothyroxine [Synthroid] 25 mcg PO QAM 06/04/19 11/24/20 History buspirone 10 mg PO BID 07/12/19 11/24/20 History sennosides 8.6 mg tablet 8.6 mg PO QAM PRN tab 07/07/20 11/24/20 History escitalopram oxalate 5 mg PO QAM 07/20/20 11/24/20 History allopurinol 200 mg PO QAM 08/08/20 11/24/20 History potassium chloride 10 meq PO BID 08/08/20 11/24/20 History prednisone 5 mg tablet 2.5 mg PO DAILY tab 08/22/20 11/24/20 History apixaban 5 mg tablet 5 mg PO BID #60 tab 09/18/20 11/24/20 Rx insulin lispro [Humalog KwikPen 15 unit SUBCUT TID 09/19/20 11/24/20 History Insulin] furosemide 40 mg PO DAILY #0 tab 09/30/20 11/24/20 Rx acetaminophen 325 mg tablet 325 mg PO Q4H PRN tab 10/20/20 11/24/20 History albuterol sulfate 2.5 mg CONTINUOUS NEBULIZATION Q6H 11/24/20 11/24/20 History PRN clopidogrel 75 mg PO QAM 11/24/20 11/24/20 History ergocalciferol (vitamin D2) 50,000 unit PO WK 11/24/20 11/24/20 History famotidine 20 mg PO BID 11/24/20 11/24/20 History ipratropium-albuterol 3 ml INHALATION Q6H PRN 11/24/20 11/24/20 History metoprolol tartrate 25 mg PO BID 11/24/20 11/24/20 History Patient History Medical History (Updated 11/25/20 @ 09:45 by DIEGO White) Acute on chronic diastolic heart failure Acute UTI (urinary tract infection) Anemia Angina pectoris CHI (closed head injury) Chronic kidney disease, stage IV (severe) Chronic respiratory failure with hypoxia and hypercapnia COPD with acute exacerbation Depression with anxiety Diabetes Diabetic foot ulcer associated with type 2 diabetes mellitus 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 (2013) Dyslipidemia Elevated troponin Elevated troponin Fall Fracture of head of left humerus HTN (hypertension) Hypercarbia Hypertrophic cardiomyopathy apical variant Hypothyroidism Knee arthropathy Lung cancer Myocardial infarction X4 Paroxysmal A-fib Peripheral neuropathy Proteinuria Thrombocytopenia Vitamin D deficiency Surgical History History of cardioversion MULTIPLE History of cataract surgery History of lung surgery PARTIAL LEFT LOBECTOMY (2013) Hx of brain surgery 2017 S/P FALL/INJURY; SUBSEQUENT BLOOD CLOT EVACUATION Knee joint replacement status S/P cardiac catheterization 7 TOTAL; CARDIAC STENTS X6 S/P hysterectomy S/P tonsillectomy Family History Father Cancer Heart disease Diabetes Mother Stroke Hypertension Heart disease Grandmother (Maternal) Coronary heart disease Stroke Family/Other Multiple sclerosis Brother Coronary heart disease Grandfather (Maternal) Heart disease Grandfather (Paternal) Diabetes Aunt Muscular dystrophy Other Gallbladder disease Kidney stones Social History Smoking Status: Never smoker Second Hand Exposure: No; Hx Alcohol Use: No Hx Substance Use: No Preferred Language: Wolof Communication Ability: Effective Seat Scooper Machine Required: No Beliefs That Will Affect Care: None marital status: Current Living Situation: Spouse 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al status: retired 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 How many Children do You have: 3 Other Information That Helps Us Care for You: No other: 3 children Feels Safe at Home: Yes Safety Concerns: Feels Safe At This Time Assistive Devices: CPAP, Oxygen - Continuous and Walker Review of Systems Review of Systems: All systems reviewed & are unremarkable except as noted in HPI & below Physical Exam Constitutional: well developed and well nourished; no acute distress Neck: normal visual inspection and trachea midline Respiratory: normal respiratory effort; no respiratory distress and no labored breathing Cardiovascular: Rate/Rhythm: regular rate and regular rhythm Extremities: + edema (BLE +1 edema) Gastrointestinal (Abdomen): Inspection/Auscultation: abdomen normal to inspection and normal bowel sounds; abdomen not distended Percussion/Palpation: + abdomen tender (rlq) and abdomen soft; no guarding and abdomen not rigid Musculoskeletal: Extremities: extremities normal to inspection Psychiatric: Orientation: alert, oriented to person and oriented to place Results & Data ([facility]) Vital Signs (Past 12 Hours) Vital Signs Temp Pulse Pulse Resp BP Pulse Ox 11/25/20 08:03 36.5 C 70 17 121/74 94 11/25/20 07:24 70 11/25/20 05:00 36.2 C L 70 102/69 96 11/25/20 00:00 70 11/24/20 23:28 36.4 C L 111 H 18 114/76 97 Laboratory Results - last 24 hr 11/24/20 11/24/20 11/24/20 11:13 11:13 11:13 WBC 4.91 RBC 3.54 L Hgb 9.5 L Hct 33.5 L MCV 94.6 MCH 26.8 MCHC 28.4 L RDW Std Deviation 67.1 H RDW Coeff of Nhi 19.7 H Plt Count 86 L Immature Gran % (Auto) Neut % (Auto) Lymph % (Auto) Dent % (Auto) Eos % (Auto) Baso % (Auto) Neut # (Auto) Lymph # (Auto) Dent # (Auto) Eos # (Auto) Baso # (Auto) Immature Gran # (Auto) Absolute Nucleated RBC 0.04 H Nucleated RBC % (auto) 0.9 Platelet Estimate Decreased L Giant Platelets Polychromasia PT 10.7 INR 1.1 APTT 26.5 PTT Ratio 1.0 Sodium Potassium Chloride Carbon Dioxide Anion Gap BUN Creatinine Est Cr Clr Drug Dosing Est GFR ( Amer) Est GFR (Non-Af Amer) BUN/Creatinine Ratio Glucose POC Glucose Estimat Average Glucose Hemoglobin A1c Calcium Magnesium Total Bilirubin AST ALT Alkaline Phosphatase Troponin I Total Protein Albumin Globulin Albumin/Globulin Ratio COVID-19 Eval Order SARS-CoV-2 (PCR) Influenza Type A (PCR) Influenza Type B (PCR) RSV (RT-PCR) Blood Type A Positive Antibody Screen NEGATIVE Crossmatch See Detail 11/24/20 11/24/20 11/24/20 11:13 12:00 12:00 WBC RBC Hgb Hct MCV MCH MCHC RDW Std Deviation RDW Coeff of Nhi Plt Count Immature Gran % (Auto) Neut % (Auto) Lymph % (Auto) Dent % (Auto) Eos % (Auto) Baso % (Auto) Neut # (Auto) Lymph # (Auto) Dent # (Auto) Eos # (Auto) Baso # (Auto) Immature Gran # (Auto) Absolute Nucleated RBC Nucleated RBC % (auto) Platelet Estimate Giant Platelets Polychromasia PT INR APTT PTT Ratio Sodium 144 Potassium 4.4 Chloride 107 Carbon Dioxide 36 H Anion Gap 1.0 L BUN 53 H Creatinine 1.86 H Est Cr Clr Drug Dosing 24.2 Est GFR ( Amer) 29.3 Est GFR (Non-Af Amer) 25.3 BUN/Creatinine Ratio 28.3 H Glucose 133 H POC Glucose Estimat Average Glucose Hemoglobin A1c Calcium 8.3 L Magnesium Total Bilirubin 0.8 AST 39 H ALT 55 Alkaline Phosphatase 120 H Troponin I 0.067 H* Total Protein 5.6 L Albumin 2.8 L Globulin 2.8 Albumin/Globulin Ratio 1.0 COVID-19 Eval Order CovFluRsv at [facility] SARS-CoV-2 (PCR) NEGATIVE Influenza Type A (PCR) Negative Influenza Type B (PCR) Negative RSV (RT-PCR) Negative Blood Type Antibody Screen Crossmatch 11/24/20 11/24/20 11/24/20 20:31 20:45 20:45 WBC 5.20 RBC 3.85 L Hgb 10.5 L Hct 36.4 L MCV 94.5 MCH 27.3 MCHC 28.8 L RDW Std Deviation 64.2 H RDW Coeff of Nhi 19.1 H Plt Count 72 L Immature Gran % (Auto) Neut % (Auto) Lymph % (Auto) Dent % (Auto) Eos % (Auto) Baso % (Auto) Neut # (Auto) Lymph # (Auto) Dent # (Auto) Eos # (Auto) Baso # (Auto) Immature Gran # (Auto) Absolute Nucleated RBC Nucleated RBC % (auto) Platelet Estimate Decreased L Giant Platelets Polychromasia PT INR APTT PTT Ratio Sodium Potassium Chloride Carbon Dioxide Anion Gap BUN Creatinine Est Cr Clr Drug Dosing Est GFR ( Amer) Est GFR (Non-Af Amer) BUN/Creatinine Ratio Glucose POC Glucose 108 H Estimat Average Glucose Hemoglobin A1c Calcium Magnesium Total Bilirubin AST ALT Alkaline Phosphatase Troponin I 0.064 H* Total Protein Albumin Globulin Albumin/Globulin Ratio COVID-19 Eval Order SARS-CoV-2 (PCR) Influenza Type A (PCR) Influenza Type B (PCR) RSV (RT-PCR) Blood Type Antibody Screen Crossmatch 11/25/20 11/25/20 11/25/20 05:24 05:24 05:24 WBC 4.81 RBC 3.95 L Hgb 10.9 L Hct 37.6 MCV 95.2 MCH 27.6 MCHC 29.0 L RDW Std Deviation 65.2 H RDW Coeff of Nhi 19.1 H Plt Count 72 L Immature Gran % (Auto) 1.5 Neut % (Auto) 71.5 Lymph % (Auto) 17.7 Dent % (Auto) 8.1 Eos % (Auto) 1.0 Baso % (Auto) 0.2 Neut # (Auto) 3.44 Lymph # (Auto) 0.85 L Dent # (Auto) 0.39 Eos # (Auto) 0.05 Baso # (Auto) 0.01 Immature Gran # (Auto) 0.07 H Absolute Nucleated RBC 0.04 H Nucleated RBC % (auto) 0.8 Platelet Estimate Decreased L Giant Platelets 3+ Polychromasia 1+ PT INR APTT PTT Ratio Sodium 146 H Potassium 4.7 Chloride 107 Carbon Dioxide 39 H Anion Gap 0 L BUN 51 H Creatinine 1.97 H Est Cr Clr Drug Dosing 24.0 Est GFR ( Amer) 27.3 Est GFR (Non-Af Amer) 23.6 BUN/Creatinine Ratio 25.7 H Glucose 109 H POC Glucose Estimat Average Glucose 146 Hemoglobin A1c 6.7 H Calcium 8.5 Magnesium 2.0 Total Bilirubin 1.2 H AST 33 ALT 49 Alkaline Phosphatase 129 H Troponin I Total Protein 5.9 L Albumin 3.1 L Globulin 2.8 Albumin/Globulin Ratio 1.1 COVID-19 Eval Order SARS-CoV-2 (PCR) Influenza Type A (PCR) Influenza Type B (PCR) RSV (RT-PCR) Blood Type Antibody Screen Crossmatch 11/25/20 11/25/20 05:24 07:13 WBC RBC Hgb Hct MCV MCH MCHC RDW Std Deviation RDW Coeff of Nhi Plt Count Immature Gran % (Auto) Neut % (Auto) Lymph % (Auto) Dent % (Auto) Eos % (Auto) Baso % (Auto) Neut # (Auto) Lymph # (Auto) Dent # (Auto) Eos # (Auto) Baso # (Auto) Immature Gran # (Auto) Absolute Nucleated RBC Nucleated RBC % (auto) Platelet Estimate Giant Platelets Polychromasia PT INR APTT PTT Ratio Sodium Potassium Chloride Carbon Dioxide Anion Gap BUN Creatinine Est Cr Clr Drug Dosing Est GFR ( Amer) Est GFR (Non-Af Amer) BUN/Creatinine Ratio Glucose POC Glucose 124 H Estimat Average Glucose Hemoglobin A1c Calcium Magnesium Total Bilirubin AST ALT Alkaline Phosphatase Troponin I 0.062 H* Total Protein Albumin Globulin Albumin/Globulin Ratio COVID-19 Eval Order SARS-CoV-2 (PCR) Influenza Type A (PCR) Influenza Type B (PCR) RSV (RT-PCR) Blood Type Antibody Screen Crossmatch
[2020-11-25] MEDS: INSULIN ASPART 100 UNITS/ML 3 ML PEN SC SCH ×4 (08:48→21:13)
[2020-11-25] MEDS: PREGABALIN 75 MG CAP PO SCH ×2 (09:22→21:16)
--- NOTE | 2020-11-25 09:25 | Hospitalist Progress Note ---
Date of Service November 25, 2020 Assessment & Plan Admission and Anticipated Discharge Date Admission Date: November 24, 2020 Results & Data Results & Data ([facility]) Vital Signs (Past 12 Hours) Vital Signs Temp Pulse Pulse Resp BP Pulse Ox 11/25/20 08:03 36.5 C 70 17 121/74 94 11/25/20 07:24 70 11/25/20 05:00 36.2 C L 70 102/69 96 11/25/20 00:00 70 11/24/20 23:28 36.4 C L 111 H 18 114/76 97
--- NOTE | 2020-11-25 09:53 | Pharmacy Report ---
Pharmacy Glycemic Short Note 2 - Date of Service November 25, 2020 - Glycemic Short BSG Results (Last 24 hours): 11/24/20 11/24/20 11/25/20 11:13 20:31 05:24 Glucose 133 H 109 H POC Glucose 108 H 11/25/20 07:13 Glucose POC Glucose 124 H OUTPATIENT ANTIDIABETIC REGIMEN: * Basaglar 30 units SC BID - unsure if patient is currently taking this as an outpatient as she is a poor historian * Humalog SC 11 units w/ breakfast, 18 units w/ lunch, 28 units w/ dinner * HbA1c = 6.7% (11/25/20) ASSESSMENT: * 80 yo F admitted last evening secondary to melena. Pharmacy has been consulted for assistance with inpatient glycemic management. Patient is currently NPO for an EGD later today. * During most recent admission in August 2020, patient required significantly less insulin than what her outpatient records suggest she is taking. Given her HbA1c from today, will base inpatient regimen on most recent admission data rather than outpatient data. * Fasting BSG was 124 mg/dL this AM. Holding off on any basal insulin until patient is ordered a diet. * Starting Novolog based on previous admission data with a goal of 110-140 mg/dL. PLAN FOR INPATIENT GLYCEMIC CONTROL: * Basal insulin * Holding while NPO * Bolus insulin * NovoLog per scale ACHS or Q6hrs while NPO * Goal Range: Low 110 mg/dL - High 140 mg/dL * Correction Factor: 35 mg/dL/unit * Nutritional / Prandial insulin per carb ratio of 1 unit per 12 grams CHO consumed PLAN FOR DISCHARGE: * To be determined
[2020-11-25] MEDS ORDERED: SODIUM CHLORIDE 0.9% 1000ML 1,000 ML IV SCH ×2 (11:00→15:00)
[2020-11-25] MEDS ORDERED: KETAMINE 50 MG/5 ML SYRINGE ONE (14:36)
--- NOTE | 2020-11-25 14:49 | Anesthesiology Consultation ---
Date of Service November 25, 2020 Assessment & Plan Chart Review Chart Review: Acceptable Risk for Surgery Consults Requested none ASA ASA4 Proposed Anesthesia Anesthesia Type: MAC Risk / Benefits Reviewed With: PT / POA / Parent / Guardian, Accepts Plan and Informed Consent Obtained History Surgery Operation Date: 11/25/20 17:25 Proposed Procedures p Esophagogastroduodenoscopy Dr Jose Raul Blunt Height/Weight Height: 5 ft 1 in Weight: 92.1 kg Allergies Allergy/AdvReac Type Severity Reaction Status Date / Time eptifibatide Allergy Severe ANAPHYLAXIS Verified 11/24/20 16:18 hornet venom Allergy Severe WASP VENOM Verified 11/24/20 16:19 PROTEIN-ANAPHYLAXIS levofloxacin [From Levaquin] Allergy Severe Hives Verified 11/24/20 16:19 atorvastatin Allergy Intermediate MUSCLE PAIN Verified 11/24/20 16:19 ezetimibe Allergy Intermediate MUSCLE PAIN Verified 11/24/20 16:19 simvastatin Allergy Intermediate MUSCLE PAIN Verified 11/24/20 16:19 rosuvastatin [From Crestor] Allergy Rash Unverified 11/24/20 16:23 amlodipine AdvReac Severe Nausea Verified 11/24/20 16:19 azithromycin AdvReac Intermediate Palpitation Verified 11/24/20 16:20 s cortisone AdvReac Intermediate INCREASES Verified 11/24/20 16:20 SUGAR AND VOMITING? hydralazine AdvReac Intermediate VOMITING Verified 11/24/20 16:20 ibuprofen AdvReac Intermediate VOMITING Verified 11/24/20 16:24 AND DIARRHEA iodine AdvReac Intermediate SHELLFISH Verified 11/24/20 16:28 - VOMITING shellfish derived AdvReac Intermediate VOMITING Verified 11/24/20 16:20 Sulfa (Sulfonamide AdvReac Intermediate VOMITING Verified 11/24/20 16:30 Antibiotics) warfarin AdvReac Intermediate EXTREME Verified 11/24/20 16:22 BLEEDING TIMES codeine AdvReac Mild VOMITING Verified 11/24/20 16:21 gemfibrozil AdvReac Mild NAUSEA Verified 11/24/20 16:24 meperidine AdvReac Mild VOMITING Verified 11/24/20 16:23 ondansetron AdvReac Mild vomiting Verified 11/24/20 16:26 ranitidine [From Zantac] AdvReac Mild dyspepsia Verified 10/20/20 11:47 Medications Home Medications Medication Instructions Recorded Confirmed Last Taken multivitamin 1 tab PO QAM 06/20/18 11/24/20 09/18/20 nitroglycerin 0.4 mg sublingual 0.4 mg SL Q5M PRN #25 tab 02/26/19 11/24/20 Unknown tablet levothyroxine [Synthroid] 25 mcg PO QAM 06/04/19 11/24/20 09/18/20 buspirone 10 mg PO BID 07/12/19 11/24/20 09/18/20 sennosides 8.6 mg tablet 8.6 mg PO QAM PRN tab 07/07/20 11/24/20 09/18/20 escitalopram oxalate 5 mg PO QAM 07/20/20 11/24/20 09/18/20 allopurinol 200 mg PO QAM 08/08/20 11/24/20 09/18/20 potassium chloride 10 meq PO BID 08/08/20 11/24/20 09/18/20 prednisone 5 mg tablet 2.5 mg PO DAILY tab 08/22/20 11/24/20 09/18/20 apixaban 5 mg tablet 5 mg PO BID #60 tab 09/18/20 11/24/20 09/18/20 insulin lispro [Humalog KwikPen 15 unit SUBCUT TID 09/19/20 11/24/20 09/18/20 Insulin] furosemide 40 mg PO DAILY #0 tab 09/30/20 11/24/20 09/18/20 acetaminophen 325 mg tablet 325 mg PO Q4H PRN tab 10/20/20 11/24/20 Unknown albuterol sulfate 2.5 mg CONTINUOUS NEBULIZATION Q6H 11/24/20 11/24/20 Unknown PRN clopidogrel 75 mg PO QAM 11/24/20 11/24/20 Unknown ergocalciferol (vitamin D2) 50,000 unit PO WK 11/24/20 11/24/20 Unknown famotidine 20 mg PO BID 11/24/20 11/24/20 Unknown ipratropium-albuterol 3 ml INHALATION Q6H PRN 11/24/20 11/24/20 Unknown metoprolol tartrate 25 mg PO BID 11/24/20 11/24/20 Unknown Active Medications Generic Name Dose Route Start Last Admin Trade Name Freq PRN Reason Stop Dose Admin Allopurinol 200 mg 11/25/20 09:00 11/25/20 08:46 Allopurinol 100 Mg Tab PO 12/25/20 08:59 200 mg QAM RAFIA Administration Buspirone HCl 10 mg 11/24/20 21:00 11/25/20 08:46 Buspirone 5 Mg Tab PO 12/24/20 20:59 10 mg BID RAFIA Administration Escitalopram Oxalate 5 mg 11/25/20 09:00 11/25/20 08:47 Escitalopram Oxalate 10 Mg Tab PO 12/25/20 08:59 5 mg QAM RAFIA Administration Famotidine 20 mg 11/24/20 21:00 11/25/20 08:46 Famotidine 20 Mg Tab PO 12/24/20 20:59 20 mg BID RAFIA Administration Furosemide 40 mg 11/24/20 16:58 11/25/20 08:45 Furosemide 20 Mg Tab PO 12/24/20 16:57 40 mg DAILY RAFIA Administration Pantoprazole Sodium 40 mg/ 10 mls @ 5 mls/min 11/25/20 09:00 11/25/20 08:45 Syringe IV 12/25/20 08:59 5 mls/min BID RAFIA Administration Sodium Chloride 1,000 mls @ 125 mls/hr 11/25/20 11:00 11/25/20 11:51 Nss 1000ml IV 12/25/20 10:59 125 mls/hr .Q8H RAFIA Administration Insulin Aspart 0 units 11/24/20 21:00 11/25/20 12:18 Insulin Aspart 100 Units/Ml 3 Ml Pen SC 12/24/20 20:59 Not Given ACHS RAFIA Protocol Levothyroxine Sodium 25 mcg 11/25/20 06:30 11/25/20 08:46 Levothyroxine Sodium 25 Mcg Tablet PO 12/25/20 06:29 25 mcg DAILYBB RAFIA Administration Metoprolol Tartrate 25 mg 11/24/20 21:00 11/25/20 08:47 Metoprolol Tartrate 25 Mg Tab PO 12/24/20 20:59 25 mg BID RAFIA Administration Multivitamins 1 tab 11/25/20 09:00 11/25/20 08:46 Multivitamin Tab PO 12/25/20 08:59 1 tab QAM RAFIA Administration Potassium Chloride 10 meq 11/24/20 21:00 11/25/20 08:46 Potassium Chloride 10 Meq Tabcr PO 12/24/20 20:59 10 meq BID RAFIA Administration Prednisone 2.5 mg 11/25/20 09:00 11/25/20 08:46 Prednisone 2.5 Mg Tab PO 12/25/20 08:59 2.5 mg DAILY RAFIA Administration Pregabalin 75 mg 11/24/20 21:00 11/25/20 09:22 Pregabalin 75 Mg Cap PO 12/24/20 20:59 75 mg BID RAFIA Administration Sennosides 8.6 mg 11/24/20 19:52 11/25/20 08:46 Senna 8.6 Mg Tab PO 12/24/20 19:51 8.6 mg QAM PRN Administration Constipation NPO Date Last Intake of Fluids: 11/25/20 Time Last Intake of Fluids: 09:00 Date Last Intake of Solids: 11/23/20 Last Intake of Solids Comment: 1800 Past Medical History Medical History Acute on chronic diastolic heart failure Acute UTI (urinary tract infection) Anemia Angina pectoris CHI (closed head injury) Chronic kidney disease, stage IV (severe) Chronic respiratory failure with hypoxia and hypercapnia COPD with acute exacerbation Depression with anxiety Diabetes Diabetic foot ulcer associated with type 2 diabetes mellitus 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) Dyslipidemia Elevated troponin Elevated troponin Fall Fracture of head of left humerus HTN (hypertension) Hypercarbia Hypertrophic cardiomyopathy apical variant Hypothyroidism Knee arthropathy Lung cancer Myocardial infarction X4 Paroxysmal A-fib Peripheral neuropathy Proteinuria Thrombocytopenia Vitamin D deficiency Exercise / Class Metabolic Activity III < 4 Walking/Shop/Light housework Past Family History Family History Father , Patient age 82 of stomach cancer. Cancer Heart disease Diabetes Mother , age 93 of heart issues Stroke Hypertension Heart disease Grandmother (Maternal) Coronary heart disease Stroke Family/Other Multiple sclerosis Brother Coronary heart disease Grandfather (Maternal) Heart disease Grandfather (Paternal) Diabetes Aunt Muscular dystrophy Other Gallbladder disease Kidney stones Past Surgical History Surgical History History of cardioversion MULTIPLE History of cataract surgery History of lung surgery PARTIAL LEFT LOBECTOMY (2014) Hx of brain surgery 2017 S/P FALL/INJURY; SUBSEQUENT BLOOD CLOT EVACUATION Knee joint replacement status S/P cardiac catheterization 7 TOTAL; CARDIAC STENTS X6 S/P hysterectomy S/P tonsillectomy Past Anesthesia History No Hx of Anesthesia Complications and No Family Hx of Anesthesia Complications History of PONV No Hx of PONV and No Hx of Motion Sickness Social History Smoking Status: Never smoker Hx Alcohol Use: No Alcohol type: wine alcohol intake frequency: holidays/special occasions only Hx Substance Use: No substance use type: does not use Physical Exam Vital Signs Last Vital Signs Temp 36.4 C L 11/25/20 14:15 Pulse 75 11/25/20 14:15 Resp 16 11/25/20 14:15 BP 130/57 L 11/25/20 14:15 Pulse Ox 99 11/25/20 14:15 ENMT Mouth: + dentition abnormality (Missing 3 left lower, ,1 left upper); no TMJ abnormality Thyromental Distance: > or= 3.5 Finger Breadths Mallampati Class: III Neck normal visual inspection, trachea midline, + short neck and + thick neck; neck extension not limited Respiratory normal respiratory effort Auscultation: lungs clear to auscultation bilaterally and + diminished lung sounds Cardiovascular Rate/Rhythm: regular rate and regular rhythm Heart Sounds: no murmur Extremities: + edema (BL LE) Musculoskeletal Spine: normal cervical ROM Extremities: full ROM of extremities Neurologic moves all extremities Psychiatric Orientation: alert and oriented x 3 Testing Laboratory Results 11/25/20 05:24 11/25/20 05:24 PT 10.7 Seconds (9.0-12.0) 11/24/20 11:13 INR 1.1 (0.9-1.1) 11/24/20 11:13 APTT 26.5 Seconds (21.0-31.0) 11/24/20 11:13 Hemoglobin A1c 6.7 % (4.5-5.6) H 11/25/20 05:24 Blood Type A Positive 11/24/20 11:13 Antibody Screen NEGATIVE 11/24/20 11:13 11/25/20 11/25/20 11:09 07:13 POC Glucose 133 H 124 H Electrocardiogram Date: 11/24/20 Findings: + ST @ (106) Chest X-Ray Date: 11/24/20 Findings: + cardiomegaly and + pulmonary vascular congestion pacer insitu Echocardiogram Date: 09/19/20 EF: 45-50 LV Function: Mild reduc Valvular Disease: + no significant valvular disease elevated RV pressure
--- NOTE | 2020-11-25 14:59 | History & Physical Report ---
Date of Service November 25, 2020 Assessment & Plan Admission and Anticipated Discharge Date Admission Date: November 24, 2020 History of Present Illness Chief Complaint: Melena, Anemia Primary Care Provider: Lizet Jeter DO For EGD Allergies Allergy/AdvReac Type Severity Reaction Status Date / Time eptifibatide Allergy Severe ANAPHYLAXIS Verified 11/24/20 16:18 hornet venom Allergy Severe WASP VENOM Verified 11/24/20 16:19 PROTEIN-ANAPHYLAXIS levofloxacin [From Levaquin] Allergy Severe Hives Verified 11/24/20 16:19 atorvastatin Allergy Intermediate MUSCLE PAIN Verified 11/24/20 16:19 ezetimibe Allergy Intermediate MUSCLE PAIN Verified 11/24/20 16:19 simvastatin Allergy Intermediate MUSCLE PAIN Verified 11/24/20 16:19 rosuvastatin [From Crestor] Allergy Rash Unverified 11/24/20 16:23 amlodipine AdvReac Severe Nausea Verified 11/24/20 16:19 azithromycin AdvReac Intermediate Palpitation Verified 11/24/20 16:20 s cortisone AdvReac Intermediate INCREASES Verified 11/24/20 16:20 SUGAR AND VOMITING? hydralazine AdvReac Intermediate VOMITING Verified 11/24/20 16:20 ibuprofen AdvReac Intermediate VOMITING Verified 11/24/20 16:24 AND DIARRHEA iodine AdvReac Intermediate SHELLFISH Verified 11/24/20 16:28 - VOMITING shellfish derived AdvReac Intermediate VOMITING Verified 11/24/20 16:20 Sulfa (Sulfonamide AdvReac Intermediate VOMITING Verified 11/24/20 16:30 Antibiotics) warfarin AdvReac Intermediate EXTREME Verified 11/24/20 16:22 BLEEDING TIMES codeine AdvReac Mild VOMITING Verified 11/24/20 16:21 gemfibrozil AdvReac Mild NAUSEA Verified 11/24/20 16:24 meperidine AdvReac Mild VOMITING Verified 11/24/20 16:23 ondansetron AdvReac Mild vomiting Verified 11/24/20 16:26 ranitidine [From Zantac] AdvReac Mild dyspepsia Verified 10/20/20 11:47 Home Medications Medication Instructions Recorded Confirmed Type multivitamin 1 tab PO QAM 06/20/18 11/24/20 History nitroglycerin 0.4 mg sublingual 0.4 mg SL Q5M PRN #25 tab 02/26/19 11/24/20 History tablet levothyroxine [Synthroid] 25 mcg PO QAM 06/04/19 11/24/20 History buspirone 10 mg PO BID 07/12/19 11/24/20 History sennosides 8.6 mg tablet 8.6 mg PO QAM PRN tab 07/07/20 11/24/20 History escitalopram oxalate 5 mg PO QAM 07/20/20 11/24/20 History allopurinol 200 mg PO QAM 08/08/20 11/24/20 History potassium chloride 10 meq PO BID 08/08/20 11/24/20 History prednisone 5 mg tablet 2.5 mg PO DAILY tab 08/22/20 11/24/20 History apixaban 5 mg tablet 5 mg PO BID #60 tab 09/18/20 11/24/20 Rx insulin lispro [Humalog KwikPen 15 unit SUBCUT TID 09/19/20 11/24/20 History Insulin] furosemide 40 mg PO DAILY #0 tab 09/30/20 11/24/20 Rx acetaminophen 325 mg tablet 325 mg PO Q4H PRN tab 10/20/20 11/24/20 History albuterol sulfate 2.5 mg CONTINUOUS NEBULIZATION Q6H 11/24/20 11/24/20 History PRN clopidogrel 75 mg PO QAM 11/24/20 11/24/20 History ergocalciferol (vitamin D2) 50,000 unit PO WK 11/24/20 11/24/20 History famotidine 20 mg PO BID 11/24/20 11/24/20 History ipratropium-albuterol 3 ml INHALATION Q6H PRN 11/24/20 11/24/20 History metoprolol tartrate 25 mg PO BID 11/24/20 11/24/20 History Past Med/Surg History Medical History Acute on chronic diastolic heart failure Acute UTI (urinary tract infection) Anemia Angina pectoris CHI (closed head injury) Chronic kidney disease, stage IV (severe) Chronic respiratory failure with hypoxia and hypercapnia COPD with acute exacerbation Depression with anxiety Diabetes Diabetic foot ulcer associated with type 2 diabetes mellitus 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) Dyslipidemia Elevated troponin Elevated troponin Fall Fracture of head of left humerus HTN (hypertension) Hypercarbia Hypertrophic cardiomyopathy apical variant Hypothyroidism Knee arthropathy Lung cancer Myocardial infarction X4 Paroxysmal A-fib Peripheral neuropathy Proteinuria Thrombocytopenia Vitamin D deficiency Surgical History History of cardioversion MULTIPLE History of cataract surgery History of lung surgery PARTIAL LEFT LOBECTOMY (2013) Hx of brain surgery 2017 S/P FALL/INJURY; SUBSEQUENT BLOOD CLOT EVACUATION Knee joint replacement status S/P cardiac catheterization 7 TOTAL; CARDIAC STENTS X6 S/P hysterectomy S/P tonsillectomy Family History Father , Patient age 82 of stomach cancer. 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 [employer] Required: No Beliefs That Will Affect Care: None marital status: Current Living Situation: Spouse 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al status: retired 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 How many Children do You have: 3 Other Information That Helps Us Care for You: No other: 3 children Feels Safe at Home: Yes Safety Concerns: Feels Safe At This Time Assistive Devices: Walker Physical Exam Constitutional: + obese Respiratory: Auscultation: + diminished lung sounds Cardiovascular: Rate/Rhythm: + irregularly irregular Gastrointestinal (Abdomen): Percussion/Palpation: abdomen soft Results & Data ([facility]) Vital Signs (Past 12 Hours) Vital Signs Temp Pulse Pulse Resp BP Pulse Ox 11/25/20 14:15 36.4 C L 75 16 130/57 L 99 11/25/20 11:49 36.8 C 88 20 130/68 95 11/25/20 08:03 36.5 C 70 17 121/74 94 11/25/20 07:24 70 11/25/20 05:00 36.2 C L 70 102/69 96 Code Status & VTE Plan VTE Prophylaxis Plan VTE Prophylaxis will be ordered: Yes
--- NOTE | 2020-11-25 15:20 | GI REPORT ---
Patient Name: Maureen Hagen Procedure Date: 11/25/2020 2:42 PM Date of : 1940 Admit Type: Inpatient Age: 80 Gender: Female Attending MD: Alvin Blunt MD Procedure: Upper GI endoscopy Providers: Alvin Blunt MD Referring MD: Referred Mirna Monique Indications: Heme positive stool, Melena Medicines: Propofol total dose 20 mg IV, Cetacaine spray, Ketamine 20 mg IV Complications: No immediate complications. Estimated Blood Loss: Estimated blood loss: none. Procedure: Pre-Anesthesia Assessment: - Prior to the procedure, a History and Physical was performed, and patient medications, allergies and sensitivities were reviewed. The patient's tolerance of previous anesthesia was reviewed. - The risks and benefits of the procedure and the sedation options and risks were discussed with the patient. All questions were answered and informed consent was obtained. After obtaining informed consent, the endoscope was passed under direct vision. Throughout the procedure, the patient's blood pressure, pulse, and oxygen saturations were monitored continuously. The Endoscope was introduced through the mouth, and advanced to the second part of duodenum. The upper GI endoscopy was accomplished without difficulty. The patient tolerated the procedure well. Findings: The Z-line was regular and was found 45 cm from the incisors. The examined esophagus was normal. The entire examined stomach was normal. The examined duodenum was normal. Impression: - Z-line regular, 45 cm from the incisors. - Normal esophagus. - Normal stomach. - Normal examined duodenum. - No specimens collected. Recommendation: - Return patient to hospital [facility] for ongoing care. Alvin Blunt M.D. Alvin Blunt MD 11/25/2020 3:19:48 PM This report has been signed electronically. Note Initiated On: 11/25/2020 2:42 PM Number of Addenda: 0 I attest to the content of the Intraoperative Record and orders documented therein, exceptions below {[id number]}
[2020-11-25] MEDS ORDERED: BENZOCAIN/TETRACA/BUTAM SPRAY 200 APPLN/20 GM SPRY EXT ONE (15:24)
[2020-11-25] MEDS ORDERED: PROPOFOL IV EMULSION 10 MG/ML 20 ML VIAL IV ONE (15:24)
--- NOTE | 2020-11-25 15:25 | Anesthesiology Progress Note ---
Date of Service November 25, 2020 Anesthesia Post Procedure Vital Signs Vital Signs: Temp Pulse Pulse Resp BP BP Pulse Ox 11/25/20 14:15 36.4 C L 75 16 130/57 L 99 11/25/20 11:49 36.8 C 88 20 130/68 95 11/25/20 08:03 36.5 C 70 17 121/74 94 11/25/20 07:24 70 11/25/20 05:00 36.2 C L 70 102/69 96 11/25/20 00:00 70 11/24/20 23:28 36.4 C L 111 H 18 114/76 97 11/24/20 19:37 36.4 C L 112 H 15 134/84 100 11/24/20 18:45 108 H 12 130/89 98 11/24/20 18:30 106 H 12 123/83 98 11/24/20 18:15 107 H 16 108/80 100 11/24/20 18:00 98 H 23 137/71 96 11/24/20 17:45 103 H 18 122/76 11/24/20 17:30 105 H 22 127/75 11/24/20 17:15 97 H 13 129/82 11/24/20 17:00 105 H 17 125/72 11/24/20 16:45 104 H 23 119/70 11/24/20 16:30 108 H 18 97 11/24/20 16:15 108 H 20 137/84 97 11/24/20 16:04 104 H 91 11/24/20 15:45 105 H 22 128/70 98 11/24/20 15:30 96 H 20 120/76 98 11/24/20 15:29 36.5 C 96 H 20 120/72 99 Transfer of Care Handoff Completed per policy Notes Mental Status: alert / awake / arousable Patient Amnestic to Procedure: Yes Nausea / Vomiting: adequately controlled Pain: adequately controlled Airway Patency, RR, SpO2: stable & adequate BP & HR: stable & adequate Hydration State: stable & adequate Anesthetic Complications: no major complications apparent and Pt Satisfied with anesthetic care
--- NOTE | 2020-11-25 15:26 | Consultation Report ---
DATE OF CONSULTATION: 11/25/2020 Addendum to the consult note done by Lilo Guzman earlier today: I spoke to the patient, examined her, reviewed the chart, labs and x-rays and performed an EGD. The patient was admitted with melena and anemia and heme-positive stool on Eliquis for AFib. The EGD actually was normal. There was no upper GI source of blood loss identified and there was no blood seen anywhere in the upper digestive tract. At this point, I believe we can resume her Eliquis and observe her. I do not think she is in any shape to be able to tolerate a bowel prep or a colonoscopy to evaluate her lower tract. We will continue to follow the patient during her hospital stay.
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
[2020-11-25] MEDS ORDERED: Nursing to Pharmacy Communication SCH (20:15)
[2020-11-25] MEDS: INSULIN GLARGINE SOLOSTAR 100 UNITS/ML 3 ML PEN SC SCH (21:13)
[2020-11-26] MEDS: LEVOTHYROXINE SODIUM 25 MCG TABLET PO SCH (05:50)
[2020-11-26] MEDS: POTASSIUM CHLORIDE 10 MEQ TABCR PO SCH (08:24)
[2020-11-26] MEDS: allopurinoL 100 MG TAB PO SCH (08:24)
[2020-11-26] MEDS: FAMOTIDINE 20 MG TAB PO SCH (08:24)
[2020-11-26] MEDS: busPIRone 5 MG TAB PO SCH (08:24)
[2020-11-26] MEDS: predniSONE 2.5 MG TAB PO SCH (08:24)
[2020-11-26] MEDS: MULTIVITAMIN TAB PO SCH (08:24)
[2020-11-26] MEDS: ESCITALOPRAM OXALATE 10 MG TAB PO SCH (08:24)
[2020-11-26] MEDS: FUROSEMIDE 20 MG TAB PO SCH (08:24)
[2020-11-26] MEDS: METOPROLOL TARTRATE 25 MG TAB PO SCH (08:25)
[2020-11-26] MEDS: PANTOprazole 40 MG in SYRINGE 0 ML IV SCH (08:25)
[2020-11-26] MEDS: INSULIN ASPART 100 UNITS/ML 3 ML PEN SC SCH ×2 (08:26→11:45)
[2020-11-26] MEDS: INSULIN GLARGINE SOLOSTAR 100 UNITS/ML 3 ML PEN SC SCH (08:28)
[2020-11-26] MEDS: PREGABALIN 75 MG CAP PO SCH (08:35)
--- NOTE | 2020-11-26 08:40 | Gastroenterology Progress Note ---
Date of Service November 26, 2020 Assessment & Plan (1) Complaint of melena: (2) Anemia: The patient presented to the emergency department with complaints of melena, anemia, heme positive stool on Eliquis for A. fib. EGD performed 11/25/[address] Blunt was negative and did not identify a upper GI source of blood loss. Unlikely that patient would tolerate bowel prep or colonoscopy at this time. Eliquis and Plavix was restarted yesterday. Can transition pantoprazole from IV to p.o. Diet as tolerated. Please refer to supervising physician addendum for further recommendations. Admission and Anticipated Discharge Date Admission Date: November 24, 2020 Subjective The patient is sleeping but arouses easily with verbal stimuli. Denies abdominal pain, nausea, vomiting. She reports no bowel movement yet this morning. Nursing reports no further bloody stools noted. Patient tolerated most of her breakfast this morning without difficulty. 11/25/2020: EGD performed by Dr. Blunt demonstrated regular Z-line 45 cm from incisors; normal examined stomach; examined esophagus was normal; examined duodenum was normal; there were no specimens collected. Review of Systems Review of Systems: All systems reviewed & are unremarkable except as noted in Subjective Physical Exam Gastrointestinal (Abdomen): Inspection/Auscultation: abdomen normal to inspection and normal bowel sounds; abdomen not distended Percussion/Palpation: abdomen soft; abdomen nontender, no guarding and abdomen not rigid Results & Data ([facility]) Vital Signs (Past 12 Hours) Vital Signs Temp Pulse Pulse Resp BP Pulse Ox 11/26/20 07:44 36.5 C 70 22 118/71 96 11/26/20 03:49 36.6 C 69 14 139/95 89 L 11/26/20 00:00 70 11/25/20 23:17 36.6 C 69 18 106/57 L 97 Laboratory Results - last 24 hr 11/25/20 11/25/20 11/25/20 11:09 16:10 20:25 WBC RBC Hgb Hct MCV MCH MCHC Plt Count POC Glucose 133 H 151 H 135 H 11/26/20 11/26/20 07:42 07:55 WBC Pending RBC Pending Hgb Pending Hct Pending MCV Pending MCH Pending MCHC Pending Plt Count Pending POC Glucose 129 H (1) Anemia Anemia type: unspecified type Qualified Code(s): D64.9 - Anemia, unspecified
[2020-11-26 08:43] LABS: Basophils # (auto) 0.02 K/uL (0-0.2); Basophils % (auto) 0.4 %; Eosinophils # (auto) 0.05 K/uL (0-0.5); Eosinophils % (auto) 1.1 %; Hemoglobin 10.2 g/dL (12.0-16.0); Immature Granulocytes # (auto) 0.06 K/uL (0.00-0.02); Immature Granulocytes % (auto) 1.3 %; Lymphocytes # (auto) 0.86 K/uL (1.2-3.4); Lymphocytes % (auto) 18.8 %; Mean Corpuscular Hemoglobin 27.2 pg (25-34); Mean Corpuscular Hgb Conc 28.3 g/dL (32-36); Monocytes # (auto) 0.42 K/uL (0.11-0.59); Monocytes % (auto) 9.2 %; Neutrophils # (auto) 3.17 K/uL (1.4-6.5); Neutrophils % (auto) 69.2 %; RBC Morphology Unremarkable; RDW Coefficient of Variation 19.3 % (11.5-14.5); Red Blood Count 3.75 M/uL (4.2-5.4); White Blood Count 4.58 K/uL (4.8-10.8)
[2020-11-26 09:47] LABS: Platelet Count 82 K/uL (130-400)
[2020-11-26] MEDS ORDERED: APIXABAN 5 MG TABLET PO SCH (10:00)
[2020-11-26] MEDS ORDERED: CLOPIDOGREL BISULFATE 75 MG TAB PO SCH (10:00)
--- NOTE | 2020-11-26 10:47 | Pharmacy Report ---
Pharmacy Glycemic Short Note 2 - Date of Service November 26, 2020 - Glycemic Short BSG Results (Last 24 hours): 11/25/20 11/25/20 11/25/20 11:09 16:10 20:25 POC Glucose 133 H 151 H 135 H 11/26/20 07:42 POC Glucose 129 H OUTPATIENT ANTIDIABETIC REGIMEN: * Basaglar 30 units SC BID - unsure if patient is currently taking this as an outpatient as she is a poor historian * Humalog SC 11 units w/ breakfast, 18 units w/ lunch, 28 units w/ dinner * HbA1c = 6.7% (11/25/20) ASSESSMENT: 11/26: * Maureen did not receive any insulin yesterday * She was NPO for an EGD for most of the day. According to data warehouse consultant, she did not eat at all yesterday. * BSGs were: [phone] mg/dL, well controlled * Fasting BSG was 129 mg/dL today, well controlled * She is now ordered a T2DM diet. With diet ordered will add a Lantus scale for this evening. * She continues on her home dose of prednisone. 11/25: * 80 yo F admitted last evening secondary to melena. Pharmacy has been consulted for assistance with inpatient glycemic management. Patient is currently NPO for an EGD later today. * During most recent admission in August 2020, patient required significantly less insulin than what her outpatient records suggest she is taking. Given her HbA1c from today, will base inpatient regimen on most recent admission data rather than outpatient data. * Fasting BSG was 124 mg/dL this AM. Holding off on any basal insulin until patient is ordered a diet. * Starting Novolog based on previous admission data with a goal of 110-140 mg/dL. PLAN FOR INPATIENT GLYCEMIC CONTROL: * Basal insulin - added Lantus * Lantus 0-10 units SC HS * BSG < 110 = 0 units; BSG 110-140 = 5 units; BSG > 140 = 10 units * Bolus insulin * NovoLog per scale ACHS or Q6hrs while NPO * Goal Range: Low 110 mg/dL - High 140 mg/dL * Correction Factor: 35 mg/dL/unit * Nutritional / Prandial insulin per carb ratio of 1 unit per 12 grams CHO consumed PLAN FOR DISCHARGE: * HbA1c = 6.7% from this admission which is at goal for this patient. According to outpatient records, patient takes Basaglar 30 units SC BID and Humalog 06/11/28 units SC with meals + sliding scale. * Given her age, most recent HbA1c, and insulin requirements while inpatient, believe patient requires a decrease in insulin doses at discharge. * Recommend: * Decreasing Basaglar to 10 units SC BID * Decreased Humalog to 7 units SC with meals. Sliding Scale as follows: 0 units for BSG < 200, 2 unit for BSG 201-250, 4 units for BSG 251-300, 6 units for BSG > 300 and call MD. * SMBG at least 3-4 x per day * Close follow-up with outpatient provider
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
[2020-11-26] MEDS ORDERED: INSULIN GLARGINE SOLOSTAR 100 UNITS/ML 3 ML PEN SC SCH (21:00)
[2020-11-29] MEDS ORDERED: ERGOCALCIFEROL 50,000 UNITS 1250 MCG CAP PO SCH (09:00)
== END 2020-11-26 16:30 | disposition home or self-care (01) | DRG 378 ==
LOC: ED 09:55 → 2S 16:58 → SUATTDRO 16:58 → 2S 18:57
DX: Z20.822 Contact with and (suspected) exposure to COVID-19; J96.12 Chronic respiratory failure with hypercapnia; E03.9 Hypothyroidism, unspecified; Z91.013 Allergy to seafood; I25.10 Atherosclerotic heart disease of native coronary artery without angina pectoris; Z66 Do not resuscitate; F41.8 Other specified anxiety disorders; E11.22 Type 2 diabetes mellitus with diabetic chronic kidney disease; Z88.6 Allergy status to analgesic agent; Z88.1 Allergy status to other antibiotic agents; I48.0 Paroxysmal atrial fibrillation; Z95.0 Presence of cardiac pacemaker; F03.90 Unspecified dementia, unspecified severity, without behavioral disturbance, psychotic disturbance, mood disturbance, and anxiety; M10.9 Gout, unspecified; J96.11 Chronic respiratory failure with hypoxia; Z95.5 Presence of coronary angioplasty implant and graft; Z88.5 Allergy status to narcotic agent; E11.42 Type 2 diabetes mellitus with diabetic polyneuropathy; Z91.030 Bee allergy status; Z63.0 Problems in relationship with spouse or partner; I50.32 Chronic diastolic (congestive) heart failure; Z91.410 Personal history of adult physical and sexual abuse; D64.9 Anemia, unspecified; Z88.8 Allergy status to other drugs, medicaments and biological substances; Z79.01 Long term (current) use of anticoagulants; I25.2 Old myocardial infarction; D69.6 Thrombocytopenia, unspecified; Z79.4 Long term (current) use of insulin; Z91.81 History of falling; M35.3 Polymyalgia rheumatica; Z79.899 Other long term (current) drug therapy; N18.4 Chronic kidney disease, stage 4 (severe); Z88.2 Allergy status to sulfonamides; R79.89 Other specified abnormal findings of blood chemistry; Z99.81 Dependence on supplemental oxygen; E55.9 Vitamin D deficiency, unspecified; Z79.52 Long term (current) use of systemic steroids; Z79.890 Hormone replacement therapy; K92.1 Melena; Z85.72 Personal history of non-Hodgkin lymphomas; I27.81 Cor pulmonale (chronic)

== ENCOUNTER 2020-12-10 11:05 | Inpatient (IN) ==
--- NOTE | 2020-12-10 11:20 | Emergency Department Note ---
Impression & Plan GI bleed, Thrombocytopenia ED Provider Note NAME: PING VIZCAINO AGE: 80 SEX: F : 1940 ARRIVES VIA: Walk-In INFORMANT: Patient, ED PROVIDER(S): Johnny Handley MD Chief Complaint: Blood in the urine HPI: Patient does present with concern for blood in urine. The patient was recently seen for similar symptoms. The patient is on anticoagulant medication as well as Plavix. Patient does have a history of dementia and does live with her . Patient reportedly did have a fall on Tuesday but was not seen at that time. The patient denies any fevers or chills. The patient does sleep a fair amount per the at bedside. Reportedly the patient is compliant with medications. Patient has had a prior hysterectomy. The patient is unsure as with the nurses had any rectal bleeding but they have noticed significant bleeding which he uses the bathroom in the toilet bowl. Patient denies any recent trauma to the area. Patient does have chronic oxygen use. ROS: See HPI for pertinent positives and negatives. A total of 10 systems were reviewed and otherwise negative. Past medical history: See below Surgical history: See below Social history: See below Physical Exam: GENERAL: Wearing a mask, nasal cannula in place. NAD, non-toxic. EYE EXAM: Left-sided subconjunctival hemorrhage and mild chemosis without involvement of the anterior chamber or cornea. PERRL, no anisocoria and EOM's grossly intact w/o pain. NECK: Supple, no nuchal rigidity, no adenopathy, non-tender. No signs of menin gismus. LUNGS: Clear to auscultation. Normal chest wall mechanics. HEART: NSR, no MRG. ABDOMEN: Abdomen soft, non-tender, normo-active bowel sounds, no masses, no rebound or guarding. BACK: No CVA TTP. SKIN: No rashes and no bruising. UPPER EXTREMITIES: Upper extremities are grossly normal. LOWER EXTREMITIES: Grossly normal, no edema. Rectal: No obvious hemorrhoids or anal fissures, no melenic stool but not bright red either, heme positive. NEURO EXAM: A&O x3, cranial nerves II-XII grossly intact, normal speech, moves all 4 extremities on command w/o issue. Differential diagnoses: Diverticulosis, AVM, coagulopathy, colitis, inflammatory bowel disease, malignancy, Milagro-Scott tear, esophagitis, peptic ulcer disease, variceal bleed, gastritis, epistaxis, fissure, hemorrhoids, as well as other pathologies. Course: Patient was seen and evaluated the bedside. Full history physical exam was performed. EKG: None Imaging Studies: See below Cardiac monitoring: An order was placed for continuous cardiac monitoring. The monitor shows a rate of 72 with sinus rhythm. MDM: Patient did present with concern for hematuria. Recent diagnosis of a cystitis. I did discuss whether not the patient could have had some rectal bleeding. Rectal exam heme positive. Given the patient's Plavix and anticoagulant use believe the patient would benefit from admission. I did speak with the on-call hospitalist and the patient was admitted to the medicine service by Dr. Lomeli. The patient's blood counts from prior visit are stable. After discussing the case with medicine they do not want PPI bolus and drip started at this time. CKD at baseline. The patient does have thrombocytopenia. Patient CT head negative. Past Med/Surg History Medical History Acute on chronic diastolic heart failure Acute upper gastrointestinal bleeding Acute UTI (urinary tract infection) Anemia Anemia Angina pectoris Blood per rectum CHI (closed head injury) Chronic kidney disease, stage IV (severe) Chronic respiratory failure with hypoxia and hypercapnia COPD with acute exacerbation Depression with anxiety Diabetes Diabetic foot ulcer associated with type 2 diabetes mellitus 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) [place] (dyspnea on exertion) Dyslipidemia Elevated troponin Elevated troponin Elevated troponin I level Fall Fracture of head of left humerus HTN (hypertension) Hypercarbia Hypertrophic cardiomyopathy apical variant Hypothyroidism Knee arthropathy Lung cancer Myocardial infarction X4 Paroxysmal A-fib Peripheral neuropathy Proteinuria Thrombocytopenia Thrombocytopenia Vitamin D deficiency Surgical History History of cardioversion MULTIPLE History of cataract surgery History of lung surgery PARTIAL LEFT LOBECTOMY (2013) Hx of brain surgery 2017 S/P FALL/INJURY; SUBSEQUENT BLOOD CLOT EVACUATION Knee joint replacement status S/P cardiac catheterization 7 TOTAL; CARDIAC STENTS X6 S/P hysterectomy S/P tonsillectomy Family History Father , Patient age 82 of stomach cancer. Cancer Heart disease Diabetes Mother , age 93 of heart issues Stroke Hypertension Heart disease Grandmother (Maternal) Coronary heart disease Stroke Family/Other Multiple sclerosis Brother Coronary heart disease Grandfather (Maternal) Heart disease Grandfather (Paternal) Diabetes Aunt Muscular dystrophy Other Gallbladder disease Kidney stones Social History Smoking Status: Never smoker Second Hand Exposure: No; Hx Alcohol Use: No Hx Substance Use: No Preferred Language: Mongolian Communication Ability: Effective Digital Forensics Investigator Required: No Beliefs That Will Affect Care: None marital status: Current Living Situation: Spouse 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al status: retired 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: Retired/Disabled - [employer] How many Children do You have: 3 other: 3 children Feels Safe at Home: Yes Assistive Devices: BiPap and Oxygen - Continuous Allergies Allergies Allergy/AdvReac Type Severity Reaction Status Date / Time eptifibatide Allergy Severe ANAPHYLAXIS Verified 12/10/20 14:15 hornet venom Allergy Severe WASP VENOM Verified 12/10/20 14:15 PROTEIN-ANAPHYLAXIS levofloxacin [From Levaquin] Allergy Severe Hives Verified 12/10/20 14:15 atorvastatin Allergy Intermediate MUSCLE PAIN Verified 12/10/20 14:15 ezetimibe Allergy Intermediate MUSCLE PAIN Verified 12/10/20 14:15 simvastatin Allergy Intermediate MUSCLE PAIN Verified 12/10/20 14:15 rosuvastatin [From Crestor] Allergy Rash Verified 12/10/20 14:15 amlodipine AdvReac Severe Nausea Verified 12/10/20 14:15 azithromycin AdvReac Intermediate Palpitation Verified 12/10/20 14:15 s cortisone AdvReac Intermediate INCREASES Verified 12/10/20 14:15 SUGAR AND VOMITING? hydralazine AdvReac Intermediate VOMITING Verified 12/10/20 14:15 ibuprofen AdvReac Intermediate VOMITING Verified 12/10/20 14:15 AND DIARRHEA iodine AdvReac Intermediate SHELLFISH Verified 12/10/20 14:15 - VOMITING shellfish derived AdvReac Intermediate VOMITING Verified 12/10/20 14:15 Sulfa (Sulfonamide AdvReac Intermediate VOMITING Verified 12/10/20 14:15 Antibiotics) warfarin AdvReac Intermediate EXTREME Verified 12/10/20 14:15 BLEEDING TIMES codeine AdvReac Mild VOMITING Verified 12/10/20 14:15 gemfibrozil AdvReac Mild NAUSEA Verified 12/10/20 14:15 meperidine AdvReac Mild VOMITING Verified 12/10/20 14:15 ondansetron AdvReac Mild vomiting Verified 12/10/20 14:15 ranitidine [From Zantac] AdvReac Mild dyspepsia Verified 12/10/20 14:15 Home Meds Home Medications Medication Instructions Recorded Confirmed multivitamin 1 tab PO QAM 06/20/18 12/10/20 nitroglycerin 0.4 mg sublingual 0.4 mg SL Q5M PRN #25 tab 02/26/19 12/10/20 tablet levothyroxine [Synthroid] 25 mcg PO QAM 06/04/19 12/10/20 buspirone 10 mg PO BID 07/12/19 12/10/20 sennosides 8.6 mg tablet 8.6 mg PO QAM PRN tab 07/07/20 12/10/20 escitalopram oxalate 5 mg PO QAM 07/20/20 12/10/20 allopurinol 200 mg PO QAM 08/08/20 12/10/20 potassium chloride 10 meq PO BID 08/08/20 12/10/20 prednisone 5 mg tablet 2.5 mg PO DAILY tab 08/22/20 12/10/20 insulin lispro [Humalog KwikPen 15 unit SUBCUT TID 09/19/20 12/10/20 Insulin] acetaminophen 325 mg tablet 325 mg PO Q4H PRN tab 10/20/20 12/10/20 albuterol sulfate 2.5 mg CONTINUOUS NEBULIZATION Q6H 11/24/20 12/10/20 PRN clopidogrel 75 mg PO QAM 11/24/20 12/10/20 ergocalciferol (vitamin D2) 50,000 unit PO WK 11/24/20 12/10/20 famotidine 20 mg PO BID 11/24/20 12/10/20 ipratropium-albuterol 3 ml INHALATION Q6H PRN 11/24/20 12/10/20 metoprolol tartrate 25 mg PO BID 11/24/20 12/10/20 Previous Rx's Medication Instructions Recorded apixaban 5 mg tablet 5 mg PO BID #60 tab 09/18/20 furosemide 40 mg PO DAILY #0 tab 09/30/20 cefdinir 300 mg PO DAILY 6 Days #6 cap 12/10/20 Results & Data (ED) Vital Signs Vital Signs - 24 hr 12/10/20 11:07 12/10/20 12:20 12/10/20 13:37 Temperature 36.0 C L Temperature Source Temporal Artery Scan Pulse Rate 73 78 Pulse Rate [Left Finger] 72 Respiratory Rate 22 24 16 Respiratory Effort / Characteristics Spontaneous Non-Labored Respiratory Depth Shallow Normal Respiratory Pattern Blood Pressure 126/69 Blood Pressure [Left Arm] 123/72 Blood Pressure Mean 88 Blood Pressure Mean [Left Arm] 89 Blood Pressure Position [Left Arm] Pulse Oximetry 90 100 100 Oxygen Delivery Method Nasal Cannula Nasal Cannula Nasal Cannula Oxygen Flow Rate 3 3 3 Sepsis Recent Fever Within 48 Hours No Sepsis New/Unexplained Change in Mental Status No Sepsis Action Taken by Nursing No Action Required 12/10/20 14:46 12/10/20 14:52 12/10/20 16:00 Temperature Temperature Source Pulse Rate Pulse Rate [Left Finger] 70 70 Respiratory Rate 14 16 Respiratory Effort / Characteristics Respiratory Depth Normal Respiratory Pattern Regular Blood Pressure Blood Pressure [Left Arm] 133/67 130/69 Blood Pressure Mean Blood Pressure Mean [Left Arm] 89 89 Blood Pressure Position [Left Arm] Sitting Pulse Oximetry 100 100 100 Oxygen Delivery Method Room Air Nasal Cannula Nasal Cannula Oxygen Flow Rate 3 3 Sepsis Recent Fever Within 48 Hours Sepsis New/Unexplained Change in Mental Status Sepsis Action Taken by Residential Medications Current Medication List: was personally reviewed by me Laboratory Data Attestation: I reviewed the patient's lab results. Result diagrams: 12/11/20 05:26 12/11/20 05:26 Lab Results 12/10/20 12/10/20 12/10/20 Range/Units 12:30 12:30 12:30 WBC 5.31 (4.8-10.8) K/uL RBC 3.60 L (4.2-5.4) M/uL Hgb 9.8 L (12.0-16.0) g/dL Hct 34.5 L (37-47) % MCV 95.8 (80-100) fL MCH 27.2 (25-34) pg MCHC 28.4 L (32-36) g/dL RDW Std Deviation 66.8 H (36.4-46.3) fL RDW Coeff of Nhi 19.3 H (11.5-14.5) % Plt Count 92 L (130-400) K/uL Immature Gran % (Auto) 1.3 % Neut % (Auto) 77.8 % Lymph % (Auto) 12.4 % [place] % (Auto) 7.2 % Eos % (Auto) 0.9 % Baso % (Auto) 0.4 % Neut # (Auto) 4.13 (1.4-6.5) K/uL Lymph # (Auto) 0.66 L (1.2-3.4) K/uL [place] # (Auto) 0.38 (0.11-0.59) K/uL Eos # (Auto) 0.05 (0-0.5) K/uL Baso # (Auto) 0.02 (0-0.2) K/uL Immature Gran # (Auto) 0.07 H (0.00-0.02) K/uL Platelet Estimate Decreased L (Normal) Polychromasia 1+ PT 10.9 (9.0-12.0) Seconds INR 1.1 (0.9-1.1) Sodium 146 H (136-145) mmol/L Potassium 4.7 (3.5-5.1) mmol/L Chloride 106 (98-107) mmol/L Carbon Dioxide 40 H (21-32) mmol/L Anion Gap 0 L (3-11) BUN 42 H (7-18) mg/dl Creatinine 1.78 H (0.6-1.2) mg/dl Est Cr Clr Drug Dosing Not Reportable Est GFR ( Amer) 30.9 ml/min Est GFR (Non-Af Amer) 26.7 ml/min BUN/Creatinine Ratio 23.9 H (10-20) Glucose 168 H (70-99) mg/dl Calcium 8.2 L (8.5-10.1) mg/dl Total Bilirubin 0.8 (0.2-1) mg/dl AST 31 (15-37) U/L ALT 40 (12-78) U/L Alkaline Phosphatase 97 (45-117) U/L Total Protein 5.9 L (6.4-8.2) gm/dl Albumin 3.2 L (3.4-5.0) gm/dl Globulin 2.7 (2.5-4.0) gm/dl Albumin/Globulin Ratio 1.2 (0.9-2) POC Stool Occult Blood (Negative) COVID-19 Eval Order SARS-CoV-2 (PCR) (Negative) 12/10/20 12/10/20 12/10/20 Range/Units 13:39 13:45 13:45 WBC (4.8-10.8) K/uL RBC (4.2-5.4) M/uL Hgb (12.0-16.0) g/dL Hct (37-47) % MCV (80-100) fL MCH (25-34) pg MCHC (32-36) g/dL RDW Std Deviation (36.4-46.3) fL RDW Coeff of Nhi (11.5-14.5) % Plt Count (130-400) K/uL Immature Gran % (Auto) % Neut % (Auto) % Lymph % (Auto) % [place] % (Auto) % Eos % (Auto) % Baso % (Auto) % Neut # (Auto) (1.4-6.5) K/uL Lymph # (Auto) (1.2-3.4) K/uL [place] # (Auto) (0.11-0.59) K/uL Eos # (Auto) (0-0.5) K/uL Baso # (Auto) (0-0.2) K/uL Immature Gran # (Auto) (0.00-0.02) K/uL Platelet Estimate (Normal) Polychromasia PT (9.0-12.0) Seconds INR (0.9-1.1) Sodium (136-145) mmol/L Potassium (3.5-5.1) mmol/L Chloride (98-107) mmol/L Carbon Dioxide (21-32) mmol/L Anion Gap (3-11) BUN (7-18) mg/dl Creatinine (0.6-1.2) mg/dl Est Cr Clr Drug Dosing Est GFR ( Amer) ml/min Est GFR (Non-Af Amer) ml/min BUN/Creatinine Ratio (10-20) Glucose (70-99) mg/dl Calcium (8.5-10.1) mg/dl Total Bilirubin (0.2-1) mg/dl AST (15-37) U/L ALT (12-78) U/L Alkaline Phosphatase (45-117) U/L Total Protein (6.4-8.2) gm/dl Albumin (3.4-5.0) gm/dl Globulin (2.5-4.0) gm/dl Albumin/Globulin Ratio (0.9-2) POC Stool Occult Blood Positive A (Negative) COVID-19 Eval Order Covid19 at [facility] SARS-CoV-2 (PCR) NEGATIVE (Negative) Administered Medications Buspirone HCl (Buspirone 5 Mg Tab) 10 mg PO BID RAFIA Stop: 01/09/21 20:59 Last Admin: 12/10/20 21:42 Dose: Not Given Documented by: Famotidine (Famotidine 20 Mg Tab) 20 mg PO BID RAFIA Stop: 01/09/21 20:59 Last Admin: 12/10/20 21:39 Dose: 20 mg Documented by: Insulin Aspart (Insulin Aspart 100 Units/Ml 3 Ml Pen) 0 units SC ACHS RAFIA Stop: 01/09/21 20:59 Last Admin: 12/10/20 20:47 Dose: Not Given Documented by: Levothyroxine Sodium (Levothyroxine Sodium 25 Mcg Tablet) 25 mcg PO DAILYBB RAFIA Stop: 01/10/21 06:29 Last Admin: 12/11/20 06:31 Dose: Not Given Documented by: [id number] Metoprolol Tartrate (Metoprolol Tartrate 25 Mg Tab) 25 mg PO BID RAFIA Stop: 01/09/21 20:59 Last Admin: 12/10/20 21:40 Dose: 25 mg Documented by: Potassium Chloride (Potassium Chloride 10 Meq Tabcr) 10 meq PO BID RAFIA Stop: 01/09/21 20:59 Last Admin: 12/10/20 21:40 Dose: 10 meq Documented by: [id number] Discontinued Medications Polyethylene Glycol (Polyethylene (Miralax) 17 Gm Pack) 119 gm PO TODAY@ RAFIA Stop: 12/11/20 06:01 Last Admin: 12/11/20 06:31 Dose: 119 gm Documented by: [id number] Admin: 12/10/20 21:46 Dose: 119 gm Documented by: [id number] Polyethylene Glycol/Electrolytes (Lavage Solution 4000ml) 8 dose PO TODAY@ RAFIA Stop: 12/11/20 06:01 Last Admin: 12/11/20 06:31 Dose: 8 dose Documented by: [id number] Admin: 12/10/20 21:47 Dose: 8 dose Documented by: [id number] Discharge Plan Visit Data Chief Complaint: Urinary Symptoms Stated Complaint: UTI/BLADDRE INFECTION STILL PASSING BLOOD ED Provider: Johnny Handley Discharge Problem: GI bleed, Thrombocytopenia Patient Disposition: Admitted As Inpatient Discharge Instructions Interventions: ED Discharge Assessment Last Done: 12/10/20 18:08 Discharge Problem: GI bleed Qualifiers: GI bleed type/associated pathology: unspecified gastrointestinal hemorrhage type Qualified Code(s): K92.2 - Gastrointestinal hemorrhage, unspecified
[2020-12-10 12:56] LABS: INR 1.1 (0.9-1.1); Prothrombin Time 10.9 Seconds (9.0-12.0)
[2020-12-10 13:09] LABS: Alanine Aminotransferase 40 U/L (12-78); Albumin Level 3.2 gm/dl (3.4-5.0); Anion Gap 0 (3-11); Aspartate Aminotransferase 31 U/L (15-37); BUN Creatinine Ratio 23.9 (10-20); Basophils # (auto) 0.02 K/uL (0-0.2); Basophils % (auto) 0.4 %; Blood Urea Nitrogen 42 mg/dl (7-18); Calcium 8.2 mg/dl (8.5-10.1); Carbon Dioxide 40 mmol/L (21-32); Chloride 106 mmol/L (98-107); Eosinophils # (auto) 0.05 K/uL (0-0.5); Eosinophils % (auto) 0.9 %; Est GFR (African American) 30.9 ml/min; Est GFR (Non-African American) 26.7 ml/min; Glucose 168 mg/dl (70-99); Hematocrit (blood only) 34.5 % (37-47); Hemoglobin 9.8 g/dL (12.0-16.0); Immature Granulocytes # (auto) 0.07 K/uL (0.00-0.02); Immature Granulocytes % (auto) 1.3 %; Lymphocytes # (auto) 0.66 K/uL (1.2-3.4); Lymphocytes % (auto) 12.4 %; Mean Corpuscular Hemoglobin 27.2 pg (25-34); Mean Corpuscular Hgb Conc 28.4 g/dL (32-36); Mean Corpuscular Volume 95.8 fL (80-100); Monocytes # (auto) 0.38 K/uL (0.11-0.59); Monocytes % (auto) 7.2 %; Neutrophils # (auto) 4.13 K/uL (1.4-6.5); Neutrophils % (auto) 77.8 %; Platelet Count 92 K/uL (130-400); Platelet Estimate Decreased (Normal); Polychromasia 1+; Potassium 4.7 mmol/L (3.5-5.1); RDW Coefficient of Variation 19.3 % (11.5-14.5); RDW Standard Deviation 66.8 fL (36.4-46.3); Sodium 146 mmol/L (136-145); White Blood Count 5.31 K/uL (4.8-10.8)
[2020-12-10 13:11] LABS: Albumin Globulin Ratio 1.2 (0.9-2); Alkaline Phosphatase 97 U/L (45-117); Bilirubin,Total 0.8 mg/dl (0.2-1); Globulin 2.7 gm/dl (2.5-4.0); Total Protein 5.9 gm/dl (6.4-8.2)
--- NOTE | 2020-12-10 14:15 | CT Scan Report ---
CT SCAN OF THE BRAIN WITHOUT IV CONTRAST CLINICAL HISTORY: Fall. COMPARISON STUDY: CT of the brain dated 08/08/2020. TECHNIQUE: Unenhanced axial CT scan of the brain is performed from the vertex to the skull base. A do se lowering technique was utilized adhering to the principles of ALARA. CT DOSE: 765.09 mGycm FINDINGS: Brain parenchyma: Dural thickening and calcification due to craniotomy site is likely on a postoperat chito basis. There are age-related involutional changes noting minimal microangiopathic change. There is no hemorrhage, mass effect, or evidence of acute territorial ischemia by CT criteria. Finn-white m atter differentiation is preserved. No extra-axial fluid collection is seen. Prominence of the fronta l extra-axial spaces is unchanged from previous. Ventricles, sulci, cisterns: Prominent secondary to involutional change. Intracranial vasculature: There is atherosclerotic calcification of the cavernous carotid and vertebr al arteries. Calvarium: The skeletal structures are osteopenic. No depressed calvarial fracture is identified. The re is postoperative change from right-sided craniotomy. Sinuses and mastoids: The visualized paranasal sinuses are clear. The mastoid air cells are well pneu matized. Orbits: The bony orbits are grossly intact. There are bilateral ocular lens implants. IMPRESSION: 1. There is no hemorrhage, mass effect, or evidence of acute territorial ischemia by CT criteria. 2. Postoperative and age-related changes as above. ACT 112: Negative or not required by law. Electronically signed by: Eliceo Hart M.D. 12/10/2020 2:13 PM
--- NOTE | 2020-12-10 16:16 | History & Physical Report ---
Date of Service December 10, 2020 Assessment & Plan (1) Blood per rectum: As per HPI - HEME positive in ER - GI Consult placed - Hold Plavix and Eliquis - Type and screen - Mediport for access - No evidence of hemodyanmic or organ instability (2) CHF (congestive heart failure): HFrEF- boderline low 40-50% - Continue lasix 40 mg daily as BP supports - Continue metoprolol 25 mg PO BID - Daily weights and IVAN (3) Coronary artery disease: Plavix was recently restarted on previous admission, is not on ASA for primary prevention - Continue BB as above (4) Afib: Ablation with DDD pacemaker - rate controlled as above - Eliquis on hold until picture becomes more clear or has colonoscopy revealed diagnosis - monitor electrolytes - Can add Lopressor 5 mg IV prn if rate becomes elevated without acute blood loss (5) Polymyalgia rheumatica: Continue tylenol and prednisone (6) Shortness of breath: Continue NC Continue combivent inhalers (7) Diabetes: Sliding scale aspart 20 correction factor 1:15 ratio - hypoglycemic protocol - hold if NPO (8) Hyphema of left eye: Patient reports she poked herself in her left eye a week ago whild cleaning her eye - does not involve the iris - vision to eye intact - no pain History of Present Illness Primary Care Provider: Lizet Jeter, DO 80 YOF with past medical history of HFrEF, CAD, CKD IV, afib with ablation and ICD, dementia, COPD on chronic oxygen 3L and BiPAP, PMR on prednisone, DM2 on insulin, diffuse B cell lymphoma with Mediport, depression. Patient recently discharged on 11/26/2020 following admission for melena, where she had an EGD performed and Colonoscopy was waived at that time secondary to intolerance to complete the bowel prep or tolerate a colonoscopy. Her EGD was normal at that time. Patient comes to the emergency room today for complaints of blood per rectum and on hand. She originally thought this was coming from her vagina. She has a history of hysterectomy. She was evalauted in the EMD and had a CXR done as well as CT of the abdomen and pelvis. Patient states that for the past 3-4 days she has been experiencing cramping abdominal pain to her lower abdomen, and that she has also been noticing "allot" of blood in the toilet afterwards. She endorses some dizziness yesterday. In the ER she has been with a HR in the 70s and SBP > 120, with no reports of blood or any bowel movements. She is on her chronic oxygen NC with SPo2 of 100%. Her HGB and HCT are stable at 9.8, where she is normally ~ 10-10.5. She is warm and well perfused with no evidence of shock, her renal function is improved. Patient will be admitted for monitoring of her melena or maxim blood from her rectum. Her plavix and her Eliquis will again be held until her picture becomes more clear. GI has been consulted. Allergies Allergy/AdvReac Type Severity Reaction Status Date / Time eptifibatide Allergy Severe ANAPHYLAXIS Verified 12/10/20 14:15 hornet venom Allergy Severe WASP VENOM Verified 12/10/20 14:15 PROTEIN-ANAPHYLAXIS levofloxacin [From Levaquin] Allergy Severe Hives Verified 12/10/20 14:15 atorvastatin Allergy Intermediate MUSCLE PAIN Verified 12/10/20 14:15 ezetimibe Allergy Intermediate MUSCLE PAIN Verified 12/10/20 14:15 simvastatin Allergy Intermediate MUSCLE PAIN Verified 12/10/20 14:15 rosuvastatin [From Crestor] Allergy Rash Verified 12/10/20 14:15 amlodipine AdvReac Severe Nausea Verified 12/10/20 14:15 azithromycin AdvReac Intermediate Palpitation Verified 12/10/20 14:15 s cortisone AdvReac Intermediate INCREASES Verified 12/10/20 14:15 SUGAR AND VOMITING? hydralazine AdvReac Intermediate VOMITING Verified 12/10/20 14:15 ibuprofen AdvReac Intermediate VOMITING Verified 12/10/20 14:15 AND DIARRHEA iodine AdvReac Intermediate SHELLFISH Verified 12/10/20 14:15 - VOMITING shellfish derived AdvReac Intermediate VOMITING Verified 12/10/20 14:15 Sulfa (Sulfonamide AdvReac Intermediate VOMITING Verified 12/10/20 14:15 Antibiotics) warfarin AdvReac Intermediate EXTREME Verified 12/10/20 14:15 BLEEDING TIMES codeine AdvReac Mild VOMITING Verified 12/10/20 14:15 gemfibrozil AdvReac Mild NAUSEA Verified 12/10/20 14:15 meperidine AdvReac Mild VOMITING Verified 12/10/20 14:15 ondansetron AdvReac Mild vomiting Verified 12/10/20 14:15 ranitidine [From Zantac] AdvReac Mild dyspepsia Verified 12/10/20 14:15 Home Medications Medication Instructions Recorded Confirmed Type multivitamin 1 tab PO QAM 06/20/18 12/10/20 History nitroglycerin 0.4 mg sublingual 0.4 mg SL Q5M PRN #25 tab 02/26/19 12/10/20 History tablet levothyroxine [Synthroid] 25 mcg PO QAM 06/04/19 12/10/20 History buspirone 10 mg PO BID 07/12/19 12/10/20 History sennosides 8.6 mg tablet 8.6 mg PO QAM PRN tab 07/07/20 12/10/20 History escitalopram oxalate 5 mg PO QAM 07/20/20 12/10/20 History allopurinol 200 mg PO QAM 08/08/20 12/10/20 History potassium chloride 10 meq PO BID 08/08/20 12/10/20 History prednisone 5 mg tablet 2.5 mg PO DAILY tab 08/22/20 12/10/20 History apixaban 5 mg tablet 5 mg PO BID #60 tab 09/18/20 12/10/20 Rx insulin lispro [Humalog KwikPen 15 unit SUBCUT TID 09/19/20 12/10/20 History Insulin] furosemide 40 mg PO DAILY #0 tab 09/30/20 12/10/20 Rx acetaminophen 325 mg tablet 325 mg PO Q4H PRN tab 10/20/20 12/10/20 History albuterol sulfate 2.5 mg CONTINUOUS NEBULIZATION Q6H 11/24/20 12/10/20 History PRN clopidogrel 75 mg PO QAM 11/24/20 12/10/20 History ergocalciferol (vitamin D2) 50,000 unit PO WK 11/24/20 12/10/20 History famotidine 20 mg PO BID 11/24/20 12/10/20 History ipratropium-albuterol 3 ml INHALATION Q6H PRN 11/24/20 12/10/20 History metoprolol tartrate 25 mg PO BID 11/24/20 12/10/20 History cefdinir 300 mg PO DAILY 6 Days #6 cap 12/10/20 12/10/20 Rx Past Med/Surg History Medical History (Updated 12/10/20 @ 16:34 by DIEGO Bragg) Acute on chronic diastolic heart failure Acute upper gastrointestinal bleeding Acute UTI (urinary tract infection) Anemia Anemia Angina pectoris Blood per rectum CHI (closed head injury) Chronic kidney disease, stage IV (severe) Chronic respiratory failure with hypoxia and hypercapnia COPD with acute exacerbation Depression with anxiety Diabetes Diabetic foot ulcer associated with type 2 diabetes mellitus 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) [place] (dyspnea on exertion) Dyslipidemia Elevated troponin Elevated troponin Elevated troponin I level Fall Fracture of head of left humerus HTN (hypertension) Hypercarbia Hypertrophic cardiomyopathy apical variant Hypothyroidism Knee arthropathy Lung cancer Myocardial infarction X4 Paroxysmal A-fib Peripheral neuropathy Proteinuria Thrombocytopenia Thrombocytopenia Vitamin D deficiency Surgical History History of cardioversion MULTIPLE History of cataract surgery History of lung surgery PARTIAL LEFT LOBECTOMY (2013) Hx of brain surgery 2017 S/P FALL/INJURY; SUBSEQUENT BLOOD CLOT EVACUATION Knee joint replacement status S/P cardiac catheterization 7 TOTAL; CARDIAC STENTS X6 S/P hysterectomy S/P tonsillectomy Family History Father , Patient age 82 of stomach cancer. 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 Beliefs That Will Affect Care: None marital status: Current Living Situation: Spouse 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al status: retired 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 How many Children do You have: 3 other: 3 children Feels Safe at Home: Yes Assistive Devices: Walker Review of Systems Review of Systems: REVIEW OF SYSTEMS: Constitutional: No fever, sweats or chills Eyes: (+) hyphema to left eye, No diplopia, no worsening or blurred vision ENT: normal hearing, no trouble swallowing Respiratory: No new cough, sputum, dyspnea at rest or on exertion Cardiovascular: (+) dizziness, No chest pain, tightness or palpitations Abdomen: (+) abdominal pain, No nausea, vomiting, diarrhea or constipation Musculoskeletal: (+) chronic multiple joint pain, NO calf pain, swelling Neurologic: No weakness, numbness/tingling, or balance problems Psychiatric: No anxiety or depression Skin: No rash or itch Physical Exam Physical Exam: PHYSICAL EXAM: General: awake, alert, no apparent distress Head: Normocephalic, atraumatic ENT: PERRLA, Hyphema to left eye not involving the Iris, EOMI, no pharyngeal exudate, mucous membranes moist Neuro: AAO x 3, speech clear and appropriate, strength intact bilaterally 5/5, sensation intact and equal all extremities and dermatomes, no pronator drift Chest: equal rise and fall of the chest, no accessory muscle use, no heaves or thrills, scattered crackles throughout, diminished in the bases bilaterally, on 3L NC Cardiac: Vpace rhythm, telemetry reviewed, skin warm dry, cap refill <3 seconds, peripheral pulses +2 no JVD, no murmur, +2 edema bilaterally to lower extremities and feet to just below the knee GI: NABS x 4 quadrants, soft, nontender to palpation, no rebound, guarding or tenderness : Spontaneously voiding, no pain, no CVA tenderness, Extremities: Normal inspection, or erythema, calfs nontender to palpation Psych: Normal mood and affect Skin: no rash or erythema Results & Data Results & Data ([facility]) Vital Signs (Past 12 Hours) Vital Signs Temp Pulse Pulse Resp BP BP Pulse Ox 12/10/20 14:52 100 12/10/20 14:46 70 14 133/67 12/10/20 13:37 72 16 123/72 100 12/10/20 12:20 78 24 12/10/20 11:07 36.0 C L 73 22 126/69 90 Laboratory Results Abnormal lab results 12/10/20 12/10/20 12/10/20 Range/Units 12:30 12:30 13:39 RBC 3.60 L (4.2-5.4) M/uL Hgb 9.8 L (12.0-16.0) g/dL Hct 34.5 L (37-47) % MCHC 28.4 L (32-36) g/dL RDW Std Deviation 66.8 H (36.4-46.3) fL RDW Coeff of Nhi 19.3 H (11.5-14.5) % Plt Count 92 L (130-400) K/uL Lymph # (Auto) 0.66 L (1.2-3.4) K/uL Immature Gran # (Auto) 0.07 H (0.00-0.02) K/uL Platelet Estimate Decreased L (Normal) Sodium 146 H (136-145) mmol/L Carbon Dioxide 40 H (21-32) mmol/L Anion Gap 0 L (3-11) BUN 42 H (7-18) mg/dl Creatinine 1.78 H (0.6-1.2) mg/dl BUN/Creatinine Ratio 23.9 H (10-20) Glucose 168 H (70-99) mg/dl Calcium 8.2 L (8.5-10.1) mg/dl Total Protein 5.9 L (6.4-8.2) gm/dl Albumin 3.2 L (3.4-5.0) gm/dl POC Stool Occult Blood Positive A (Negative) Diagnostic Findings Head CT 12/10/20 13:37 CT SCAN OF THE BRAIN WITHOUT IV CONTRAST CLINICAL HISTORY: Fall. COMPARISON STUDY: CT of the brain dated 08/08/2020. TECHNIQUE: Unenhanced axial CT scan of the brain is performed from the vertex to the skull base. A dose lowering technique was utilized adhering to the principles of ALARA. CT DOSE: 765.09 mGycm FINDINGS: Brain parenchyma: Dural thickening and calcification due to craniotomy site is likely on a postoperative basis. There are age-related involutional changes noting minimal microangiopathic change. There is no hemorrhage, mass effect, or evidence of acute territorial ischemia by CT criteria. Finn-white matter differentiation is preserved. No extra-axial fluid collection is seen. Prominence of the frontal extra-axial spaces is unchanged from previous. Ventricles, sulci, cisterns: Prominent secondary to involutional change. Intracranial vasculature: There is atherosclerotic calcification of the cave rnous carotid and vertebral arteries. Calvarium: The skeletal structures are osteopenic. No depressed calvarial fracture is identified. There is postoperative change from right-sided craniotomy. Sinuses and mastoids: The visualized paranasal sinuses are clear. The mastoid air cells are well pneumatized. Orbits: The bony orbits are grossly intact. There are bilateral ocular lens implants. IMPRESSION: 1. There is no hemorrhage, mass effect, or evidence of acute territorial ischemia by CT criteria. 2. Postoperative and age-related changes as above. Electronically signed by: Eliceo Hart M.D. 12/10/2020 2:[address] SCAN OF THE ABDOMEN AND PELVIS WITHOUT CONTRAST CLINICAL HISTORY: hematuria, abdominal cramping COMPARISON STUDY: September 20, 2020 TECHNIQUE: CT scan of the abdomen and pelvis was performed from the lung bases to the proximal femurs. Images are reviewed in the axial, sagittal, and coronal planes. IV contrast was not administered for this examination. A dose lowering technique was utilized adhering to the principles of ALARA. CT DOSE: 1551.89 mGy.cm FINDINGS: Lower chest: Interval development of small bilateral pleural effusion also associated with compressive atelectasis in dependent portions of bilateral lower lobes, septal thickening and patchy areas of groundglass attenuation. Four-chamber cardiomegaly, severe coronary calcifications/possible stents and distal leads of the pacemaker are again seen. Liver: The unenhanced liver is normal in size, contour, and attenuation. There is no intrahepatic biliary ductal dilatation. Gallbladder: Unremarkable. Spleen: Spleen is normal in size with coarse parenchymal calcification which was also seen on prior. Pancreas: Unremarkable. Adrenal glands: Unremarkable. Kidneys: Left kidney is atrophic. No evidence of hydronephrosis. Multiple calcification within bilateral renal pelvises are most likely vascular. Small left renal cyst is again seen and unchanged since prior. Bowel: The small bowel and colon are normal in course and caliber. Diverticulosis of sigmoid colon is seen without evidence of diverticulitis. Appendix is not well seen. Peritoneum: There is no intraperitoneal free air or abdominal ascites. Vasculature: Heavy calcification of the distal aortic wall are seen with possible luminal narrowing measuring approximately 0.9 cm in diameter. No ev idence of aneurysmal dilatation of aorta are seen. Heavy concentric calcifications are seen extending to bilateral iliac arteries which might also associated with luminal stenosis. Adenopathy: None. Pelvic viscera: Urinary bladder is partially decompressed which limits evaluation. There is mild fat stranding surrounding urinary bladder which might be seen in cystitis. Uterus is surgically absent. Skeletal structures: Multilevel degenerative changes of the spine. There is symmetrical subcutaneous soft tissue edema which is seen bilaterally. IMPRESSION: 1. Interval development of small bilateral pleural effusion. Patchy infiltrative lesion within bilateral lower lobes might represent pneumonia in appropriate clinical settings. Please correlate above-mentioned findings with clinical presentation of pulmonary infectious process. 2. Mild fat stranding is seen surrounding the urinary bladder which could represent cystitis. Please correlate above-mentioned findings with results of ur inalysis. 3. Severe atherosclerosis. Narrowing of the distal aortic lumen. Evaluation is limited due to lack of IV contrast. 4. Atrophic left kidney. No evidence of hydronephrosis. 5. The first diverticulosis of sigmoid colon without evidence of diverticulitis. Medications Administered Home Medications multivitamin 1 tab PO QAM 06/20/18 [History Confirmed 12/10/20] nitroglycerin 0.4 mg sublingual tablet 0.4 mg SL Q5M PRN #25 tab 02/26/19 [History Confirmed 12/10/20] levothyroxine [Synthroid] 25 mcg PO QAM 06/04/19 [History Confirmed 12/10/20] buspirone 10 mg PO BID 07/12/19 [History Confirmed 12/10/20] sennosides 8.6 mg tablet 8.6 mg PO QAM PRN tab 07/07/20 [History Confirmed 12/10/20] escitalopram oxalate 5 mg PO QAM 07/20/20 [History Confirmed 12/10/20] allopurinol 200 mg PO QAM 08/08/20 [History Confirmed 12/10/20] potassium chloride 10 meq PO BID 08/08/20 [History Confirmed 12/10/20] prednisone 5 mg tablet 2.5 mg PO DAILY tab 08/22/20 [History Confirmed 12/10/20] apixaban 5 mg tablet 5 mg PO BID #60 tab 09/18/20 [Rx Confirmed 12/10/20] insulin lispro [Humalog KwikPen Insulin] 15 unit SUBCUT TID 09/19/20 [History Confirmed 12/10/20] furosemide 40 mg PO DAILY #0 tab 09/30/20 [Rx Confirmed 12/10/20] acetaminophen 325 mg tablet 325 mg PO Q4H PRN tab 10/20/20 [History Confirmed 12/10/20] albuterol sulfate 2.5 mg CONTINUOUS NEBULIZATION Q6H PRN 11/24/20 [History Confirmed 12/10/20] clopidogrel 75 mg PO QAM 11/24/20 [History Confirmed 12/10/20] ergocalciferol (vitamin D2) 50,000 unit PO WK 11/24/20 [History Confirmed 12/10/20] famotidine 20 mg PO BID 11/24/20 [History Confirmed 12/10/20] ipratropium-albuterol 3 ml INHALATION Q6H PRN 11/24/20 [History Confirmed 12/10/20] metoprolol tartrate 25 mg PO BID 11/24/20 [History Confirmed 12/10/20] cefdinir 300 mg PO DAILY 6 Days #6 cap 12/10/20 [Rx Confirmed 12/10/20] ECG Additional Comments: P-R Int : 000 ms QRS Dur : 168 ms QT Int : 412 ms P-R-T Axes : 000 264 095 degrees QTc Int : 547 ms Atrial sensing, ventricular pacing Abnormal ECG When compared with ECG of 19-SEP-2020 03:06, Atrial sensing, ventricular pacing replaces Sequential atrial-ventricular pacing Code Status & VTE Plan Code Status CODE: DNR/DNI VTE: SCD's, TEDS Supervising Physician Co-Signing Physician Notes Patient was seen and examined independently I discussed the case with Jesus CORTEZ I reviewed pertinent past medical social family history and also the plan of care and agree with the plan of care. Unfortunately Mrs. couch presents with rectal bleeding she is currently on both Plavix and Eliquis. During her last admission earlier in the month the patient an upper endoscopy without source of active bleeding but the patient cannot tolerate an adequate prep and colonoscopy was reconsidered at that time. She now he presents with persistent rectal bleeding. The patient persistently is on Eliquis due to her atrial fibrillation. Patient's hemoglobin is roughly stable from her discharge however she has been increasingly fatigued Exam finds her to appear more pale than her hemoglobin currently is she does have some diffuse abdominal pain worse in the left lower quadrant her heart sounds to be regular although with her history of A. fib does not sound markedly irregular to me Her is at the bedside and was able to sign consent for her blood if needed Patient will be observed hemoglobin will be checked consideration for reevaluation of colonoscopy. Any exceptions will be noted below PG Care Time/CCT Total # of Minutes Spent Total Time Spent with Patient: Total time spent is greater than 50% in coordination of care (as documented) at patient's floor/unit and/or counseling patient: Coding Level of Care Code 74292 Initial Inpt Care Lvl 3 Diagnoses Blood per rectum K62.5 CHF (congestive heart failure) I50.9 Heart failure chronicity: chronic Heart failure type: unspecified Coronary artery disease I25.10 Associated angina: without angina Coronary Disease-Associated Artery/Lesion type: koi artery [place] vs. 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 transplanted heart: koi heart Qualified Code(s): I25.10 - Atherosclerotic heart disease of koi coronary artery without angina pectoris (3) CHF (congestive heart failure) Heart failure chronicity: chronic Heart failure type: unspecified Qualified Code(s): I50.9 - Heart failure, unspecified (4) Afib Atrial fibrillation type: unspecified Qualified Code(s): I48.91 - Unspecified atrial fibrillation
[2020-12-10] MEDS ORDERED: ONDANSETRON INJ 2 MG/ML 2 ML VIAL IV PRN (20:28)
[2020-12-10] MEDS ORDERED: POLYETHYLENE (MIRALAX) 17 GM PACK PO PRN (20:28)
[2020-12-10] MEDS ORDERED: GLUCOSE 10 TABS/TUBE PO PRN (20:28)
[2020-12-10] MEDS ORDERED: ACETAMINOPHEN 325 MG TAB PO PRN ×2 (20:28)
[2020-12-10] MEDS ORDERED: DEXTROSE 50% 50 ML SYRINGE IV PRN (20:28)
[2020-12-10] MEDS ORDERED: ALBUTEROL 0.083% NEBU SOLN 3 ML VIAL NEB PRN (20:28)
[2020-12-10] MEDS ORDERED: GLUCAGON FOR INJ 1 MG VIAL SQ PRN (20:28)
[2020-12-10] MEDS ORDERED: GLUCOSE 40% GEL 15 GM TUBE PO PRN (20:28)
[2020-12-10] MEDS ORDERED: NITROGLYCERIN SL 0.4 MG/TAB TAB SL PRN (20:28)
[2020-12-10] MEDS ORDERED: CARBOHYDRATES FOR HYPOGLYCEMIA PO PRN (20:28)
[2020-12-10] MEDS ORDERED: ALBUT/IPRATROP 3MG/0.5MG NEB 3 ML VIAL INH PRN (20:28)
[2020-12-10] MEDS ORDERED: PNEUMOCOCCAL POLYSACCHARIDES 25 MCG/0.5 ML VIAL/SYR IM ONE (20:45)
[2020-12-10] MEDS: INSULIN ASPART 100 UNITS/ML 3 ML PEN SC SCH (20:47)
[2020-12-10] MEDS: FAMOTIDINE 20 MG TAB PO SCH (21:39)
[2020-12-10] MEDS: POTASSIUM CHLORIDE 10 MEQ TABCR PO SCH (21:40)
[2020-12-10] MEDS: METOPROLOL TARTRATE 25 MG TAB PO SCH (21:40)
[2020-12-10] MEDS: busPIRone 5 MG TAB PO SCH (21:42)
[2020-12-10] MEDS: POLYETHYLENE (MIRALAX) 17 GM PACK PO SCH (21:46)
[2020-12-10] MEDS: LAVAGE SOLUTION 4000ML PO SCH (21:47)
[2020-12-11 06:12] LABS: Hemoglobin 9.2 g/dL (12.0-16.0); Mean Corpuscular Hemoglobin 27.3 pg (25-34); Mean Corpuscular Hgb Conc 27.9 g/dL (32-36); Mean Corpuscular Volume 97.9 fL (80-100); Nucleated RBC # (auto) 0.02 K/uL (0-0); Nucleated RBC % (auto) 0.3 %; Platelet Count 79 K/uL (130-400); RDW Coefficient of Variation 19.4 % (11.5-14.5); RDW Standard Deviation 69.5 fL (36.4-46.3); Red Blood Count 3.37 M/uL (4.2-5.4); White Blood Count 5.78 K/uL (4.8-10.8)
[2020-12-11 06:13] LABS: Basophils # (auto) 0.01 K/uL (0-0.2); Basophils % (auto) 0.2 %; Eosinophils # (auto) 0.04 K/uL (0-0.5); Eosinophils % (auto) 0.7 %; Immature Granulocytes # (auto) 0.04 K/uL (0.00-0.02); Immature Granulocytes % (auto) 0.7 %; Lymphocytes % (auto) 10.4 %; Monocytes # (auto) 0.41 K/uL (0.11-0.59); Monocytes % (auto) 7.1 %; Neutrophils # (auto) 4.68 K/uL (1.4-6.5); Neutrophils % (auto) 80.9 %; Platelet Estimate Decreased (Normal); Polychromasia 1+; Stomatocytes 1+
[2020-12-11 06:15] LABS: Calcium 7.8 mg/dl (8.5-10.1); Creatinine Clr Calc Pharmacy 25.8 ml/min; Est GFR (African American) 31.5 ml/min; Est GFR (Non-African American) 27.2 ml/min; Magnesium 1.9 mg/dl (1.8-2.4); Potassium 4.5 mmol/L (3.5-5.1)
[2020-12-11] MEDS: LAVAGE SOLUTION 4000ML PO SCH (06:31)
[2020-12-11] MEDS: POLYETHYLENE (MIRALAX) 17 GM PACK PO SCH (06:31)
[2020-12-11] MEDS: LEVOTHYROXINE SODIUM 25 MCG TABLET PO SCH (06:31)
[2020-12-11 08:00] LABS: Estimated Average Glucose 140 mg/dl; Hemoglobin A1C 6.5 % (4.5-5.6)
--- NOTE | 2020-12-11 08:13 | Hospitalist Progress Note ---
Date of Service December 11, 2020 Assessment & Plan (1) Blood per rectum: As per HPI:- HEME positive in ER * GI Consult placed -- no plans for scope and discontinued bowel prep at this time * HD stable * Hgb down to 9.2 however suspect some of this from dilution from volume overloaded state and will improve with diuresis. * Plavix/Eliquis on hold, however bleeding reported to stop/no further hematuria/hematochezia however initially brought her in yesterday AM due to blood clots from urine/stool during bowel movement. Possible fall but not clear on details prior per patient * Will order diet now that no procedures are to be undertaken * *Per ER notes from earlier in day when she first came to ER, bleeding appeared to be coming from urethra. UA with UTI and was to be sent on rx Cefdinir at d/c * CTAP with evidence of cystitis/thickened bladder wall * RBC >30 on UA * Consultation for Urology as well * Appears urine culture from October with enterococcus fac. but no note of treatment for such, especially given increased confusion * --> however, did discuss with CM and confirmed she was treated with amoxicillin from 10/30-11/04 at [facility] * Discussed with nursing as patient was supposed to be sent home on Omnicef after discharge 12/10/2020 when she was discharged from the ER in the early a.m. however no urine culture was ever sent and there is not a urine or culture from admission. Asked nursing to obtain straight cath sample to prevent contamination to see if infected however note she does deny urinary symptoms * --We will hold off on starting any antibiotics at this time until sample and culture are able to be obtained * Will resume Eliquis if no interventions planned given her afib but if continues to bleed would stop and possibly have cysto for eval hem cystitis Iron studies without abnormality B12 708, folate >20 *Also with reported shortness of breath, complicated by anemia/bleeding --> Of note, CTAP with evidence of interval development of small b/ll effusions as well as patchy infiltrates/ground-glass opacities but could be from volume overload. COVID19 negative SpO2 98% however no CXR obtained on admission --> Will check CXR given reports of SOB -->Will also obtain EKG. Troponin 0.045 --> 0.047 --> will trend. Suspect due to demand given CHF exacerbation. BNP 87611 Ordering Lasix 40mg IV x 1 today and will likely utilize 40mg IV BID Not above what appears to be normal weight, however have been getting bed scale weights -> will ask nursing to obtain standing scale (2) CHF (congestive heart failure): Acute on chronic heart failure with reduced ejection fraction Most recent echocardiogram from September 19, 2020 which showed left ventricular systolic function borderline reduced at 45-50%, distal septal hypokinesis. Difficult to exclude additional regional wall motion abnormalities. There is mild concentric left ventricular hypertrophy. The right ventricle is mildly dilated. The right ventricular systolic function is mildly reduced. The left atrium is moderately dilated. The right atrium is mild to moderately dilated. There is mild mitral annular calcification. Right ventricular systolic pressure is elevated 40 to 50 mmHg. Compared to echo from December 2019, minimal change She is typically maintained on Lasix 40 mg by mouth daily and states that her typical weight is around 200 pounds give or take 10 pounds however it does not appear that she checks her weight regularly at home and has not been followed by heart failure clinic in the past which is recommended at discharge. Suspect that her dry weight is actually more likely closer to 170-180 pounds but will assess as diuresis occurs She was admitted in September 2020 for acute on chronic systolic heart failure and required Lasix 80 mg IV daily and was decreased to Lasix 80 mg p.o. twice daily and discharged on 40 mg twice daily due to hyper natremia It is noted that on 09/26/2020 she was doing well with continued diuresis at a weight of 81.8 kg and she is currently 85 kg on standing scale * Patient stated that she had increased lower extremity edema to thighs, shortness of breath, decreased appetite and difficulty lying flat due to shortness of breath raising suspicion for CHF * Given the dose of IV Lasix 40 mg this morning and will schedule twice daily dosing moving forward * She is continued on metoprolol 25 mg by mouth twice daily * BNP elevated to 10,168 * Thyroid function normal * Troponin was 0.045 this a.m. and was not previously checked on admission despite reports of shortness of breath and repeat was 0.047 and will trend these. Suspect demand secondary to volume overload * We will also obtain echocardiogram and EKG * Continue to monitor daily weights and I&Os * Heart healthy diet with 1500 ml fluid restriction * Consultation placed for cardiology for further recommendations and follow-up (3) Coronary artery disease: * Plavix was recently restarted on previous admission, is not on ASA for primary prevention * Extensive cardiac history including stents * Metoprolol continued as above * No chest pain reported (4) Afib: * Ablation with DDD pacemaker * rate controlled as above * Eliquis on hold as above but will restart this evening and see if any recurrance of bleeding Can add Lopressor 5 mg IV prn if rate becomes elevated without acute blood loss but would need moved to monitored bed (5) Polymyalgia rheumatica: * Continue tylenol and prednisone 2.5 mg daily (6) Shortness of breath: * Patient with chronic respiratory failure on 3 L via nasal cannula however suspect reported shortness of breath related to CHF exacerbation as above * Suspect improvement with diuresis as outlined * CXR obtained * --IMPRESSION: Re-demonstration of stable cardiomegaly and possible pulmonary edema. Interval worsening/redistribution bilateral pleural effusion. (compared to exam November 24, 2020) * Continued on her Combivent inhaler * Continue to monitor (7) Diabetes: * Sliding scale aspart 20 correction factor 1:15 ratio. * A1c 6.5, well controlled * Will consult pharmacy for glycemic management while managing the above problems, bsgs [id number] (8) Hyphema of left eye: Patient reports she poked herself in her left eye a week ago while cleaning her eye - does not involve the iris - vision to eye intact - no pain Dispo: continued inpatient stay low threshold for moving to [employer] if becomes HD unstable Admission and Anticipated Discharge Date Admission Date: December 10, 2020 Supervising Physician Co-Signing Physician Notes JEFE Supervision Note: I did not personally see or examine the patient today, but I verified all [place] points of JEFE Jansen's assessment and plan with the following exceptions/additions: None Subjective Patient evaluated this afternoon. Feeling better than admission. No more maxim bleeding but noted "dirt" appearance to her stool today, loose. Denies NSAID use. Still with some sob with ambulation/activity but stable at rest. Difficulty laying flat due to shortness of breath. Dry cough. She is on 3 L chronically for chronic respiratory failure with hypoxia and hypercapnia Admitted to nausea, but she feels this may be related to strssors at home and fighting with her . Increased LE edema. Weight ~200lb per her account. Discussed hgb may be falsely low due to volume overload state but will still monitor her bleeding. Will plan on increasing her diuretics and consultation with cardiology/repeat ECHO. Patient agreeable. GI not planning on doing scope. Urology plans for possible outpt scope. Will plan on st cath for clean sample as prior in ER in AM day of admission with possible UTI and was to start omnicef before representing for worsening bleeding (felt to be combo b/w urethra and + heme occult). Possibly fell at home but does not remember. unwitnessed. Possible she had syncopal episode? No fevers, chills, chest pain, palpitations, vomiting, dysuria/burning/difficulty with urination at this time. Review of Systems Review of Systems: All systems reviewed & are unremarkable except as noted in HPI & below Physical Exam Constitutional: well developed, well nourished, + ill appearing (chronically ill appearing), cooperative and comfortable; no acute distress Eyes: +hyphema of left eye ENMT: Ears: no external ear abnormality Nose: no external nose abnormality Neck: normal visual inspection and trachea midline unable to assess for JVD given body habitus Respiratory: normal respiratory effort and able to speak in complete sentences; no respiratory distress and no audible wheezes Auscultation: + diminished lung sounds (bases bilaterally) and + wheezes (posterior lung edmonds) Chronic oxygen, 3L nasal cannula Cardiovascular: Rate/Rhythm: regular rate and regular rhythm Heart Sounds: + gallop (S3) Vessels: no JVD (unable to assess) Extremities: + edema (+2 pitting edema B/L LE up to thighs); no calf tenderness Gastrointestinal (Abdomen): Inspection/Auscultation: abdomen normal to inspection, + abdomen distended (Obese), normal bowel sounds and + abdominal edema Percussion/Palpation: abdomen soft; abdomen nontender and no guarding Musculoskeletal: Moves all extremities without difficulty. Skin: +ecchymosis to right arm multiple areas of ecchymosis from frequent falls Neurologic: moves all extremities and awake Psychiatric: Orientation: alert, oriented x 3 (2020, [place], michael as president (however whifty at times)) and cooperative Affect: euthymic affect Genitourinary: no CVA tenderness Results & Data Results & Data ([facility]) Vital Signs (Past 12 Hours) Vital Signs Temp Pulse Pulse Resp BP Pulse Ox 12/11/20 07:30 36.7 C 72 18 118/49 L 98 12/10/20 23:12 36.3 C L 74 18 131/74 95 Laboratory Results 12/11/20 12/11/20 12/11/20 Range/Units 05:26 05:26 05:26 WBC 5.78 (4.8-10.8) K/uL RBC 3.37 L (4.2-5.4) M/uL Hgb 9.2 L (12.0-16.0) g/dL Hct 33.0 L (37-47) % MCV 97.9 (80-100) fL MCH 27.3 (25-34) pg MCHC 27.9 L (32-36) g/dL RDW Std Deviation 69.5 H (36.4-46.3) fL RDW Coeff of Nhi 19.4 H (11.5-14.5) % Plt Count 79 L (130-400) K/uL Immature Gran % (Auto) 0.7 % Neut % (Auto) 80.9 % Lymph % (Auto) 10.4 % [place] % (Auto) 7.1 % Eos % (Auto) 0.7 % Baso % (Auto) 0.2 % Neut # (Auto) 4.68 (1.4-6.5) K/uL Lymph # (Auto) 0.60 L (1.2-3.4) K/uL [place] # (Auto) 0.41 (0.11-0.59) K/uL Eos # (Auto) 0.04 (0-0.5) K/uL Baso # (Auto) 0.01 (0-0.2) K/uL Immature Gran # (Auto) 0.04 H (0.00-0.02) K/uL Absolute Nucleated RBC 0.02 H (0-0) K/uL Nucleated RBC % (auto) 0.3 % Platelet Estimate Decreased L (Normal) Polychromasia 1+ Stomatocytes 1+ PT (9.0-12.0) Seconds INR (0.9-1.1) Sodium 145 (136-145) mmol/L Potassium 4.5 (3.5-5.1) mmol/L Chloride 106 (98-107) mmol/L Carbon Dioxide 39 H (21-32) mmol/L Anion Gap 0 L (3-11) BUN 40 H (7-18) mg/dl Creatinine 1.75 H (0.6-1.2) mg/dl Est Cr Clr Drug Dosing 25.8 Est GFR ( Amer) 31.5 ml/min Est GFR (Non-Af Amer) 27.2 ml/min BUN/Creatinine Ratio 23.0 H (10-20) Glucose 189 H (70-99) mg/dl POC Glucose (70-99) mg/dl Estimat Average Glucose 140 mg/dl Hemoglobin A1c 6.5 H (4.5-5.6) % Calcium 7.8 L (8.5-10.1) mg/dl Magnesium 1.9 (1.8-2.4) mg/dl Total Bilirubin (0.2-1) mg/dl AST (15-37) U/L ALT (12-78) U/L Alkaline Phosphatase (45-117) U/L Total Protein (6.4-8.2) gm/dl Albumin (3.4-5.0) gm/dl Globulin (2.5-4.0) gm/dl Albumin/Globulin Ratio (0.9-2) POC Stool Occult Blood (Negative) COVID-19 Eval Order SARS-CoV-2 (PCR) (Negative) Blood Type Antibody Screen 12/10/20 12/10/20 12/10/20 Range/Units 20:42 17:15 16:17 WBC (4.8-10.8) K/uL RBC (4.2-5.4) M/uL Hgb (12.0-16.0) g/dL Hct (37-47) % MCV (80-100) fL MCH (25-34) pg MCHC (32-36) g/dL RDW Std Deviation (36.4-46.3) fL RDW Coeff of Nhi (11.5-14.5) % Plt Count (130-400) K/uL Immature Gran % (Auto) % Neut % (Auto) % Lymph % (Auto) % [place] % (Auto) % Eos % (Auto) % Baso % (Auto) % Neut # (Auto) (1.4-6.5) K/uL Lymph # (Auto) (1.2-3.4) K/uL [place] # (Auto) (0.11-0.59) K/uL Eos # (Auto) (0-0.5) K/uL Baso # (Auto) (0-0.2) K/uL Immature Gran # (Auto) (0.00-0.02) K/uL Absolute Nucleated RBC (0-0) K/uL Nucleated RBC % (auto) % Platelet Estimate (Normal) Polychromasia Stomatocytes PT (9.0-12.0) Seconds INR (0.9-1.1) Sodium (136-145) mmol/L Potassium (3.5-5.1) mmol/L Chloride (98-107) mmol/L Carbon Dioxide (21-32) mmol/L Anion Gap (3-11) BUN (7-18) mg/dl Creatinine (0.6-1.2) mg/dl Est Cr Clr Drug Dosing Est GFR ( Amer) ml/min Est GFR (Non-Af Amer) ml/min BUN/Creatinine Ratio (10-20) Glucose (70-99) mg/dl POC Glucose 146 H 168 H (70-99) mg/dl Estimat Average Glucose mg/dl Hemoglobin A1c (4.5-5.6) % Calcium (8.5-10.1) mg/dl Magnesium (1.8-2.4) mg/dl Total Bilirubin (0.2-1) mg/dl AST (15-37) U/L ALT (12-78) U/L Alkaline Phosphatase (45-117) U/L Total Protein (6.4-8.2) gm/dl Albumin (3.4-5.0) gm/dl Globulin (2.5-4.0) gm/dl Albumin/Globulin Ratio (0.9-2) POC Stool Occult Blood (Negative) COVID-19 Eval Order SARS-CoV-2 (PCR) (Negative) Blood Type A Positive Antibody Screen NEGATIVE 12/10/20 12/10/20 12/10/20 Range/Units 13:45 13:45 13:39 WBC (4.8-10.8) K/uL RBC (4.2-5.4) M/uL Hgb (12.0-16.0) g/dL Hct (37-47) % MCV (80-100) fL MCH (25-34) pg MCHC (32-36) g/dL RDW Std Deviation (36.4-46.3) fL RDW Coeff of Nhi (11.5-14.5) % Plt Count (130-400) K/uL Immature Gran % (Auto) % Neut % (Auto) % Lymph % (Auto) % [place] % (Auto) % Eos % (Auto) % Baso % (Auto) % Neut # (Auto) (1.4-6.5) K/uL Lymph # (Auto) (1.2-3.4) K/uL [place] # (Auto) (0.11-0.59) K/uL Eos # (Auto) (0-0.5) K/uL Baso # (Auto) (0-0.2) K/uL Immature Gran # (Auto) (0.00-0.02) K/uL Absolute Nucleated RBC (0-0) K/uL Nucleated RBC % (auto) % Platelet Estimate (Normal) Polychromasia Stomatocytes PT (9.0-12.0) Seconds INR (0.9-1.1) Sodium (136-145) mmol/L Potassium (3.5-5.1) mmol/L Chloride (98-107) mmol/L Carbon Dioxide (21-32) mmol/L Anion Gap (3-11) BUN (7-18) mg/dl Creatinine (0.6-1.2) mg/dl Est Cr Clr Drug Dosing Est GFR ( Amer) ml/min Est GFR (Non-Af Amer) ml/min BUN/Creatinine Ratio (10-20) Glucose (70-99) mg/dl POC Glucose (70-99) mg/dl Estimat Average Glucose mg/dl Hemoglobin A1c (4.5-5.6) % Calcium (8.5-10.1) mg/dl Magnesium (1.8-2.4) mg/dl Total Bilirubin (0.2-1) mg/dl AST (15-37) U/L ALT (12-78) U/L Alkaline Phosphatase (45-117) U/L Total Protein (6.4-8.2) gm/dl Albumin (3.4-5.0) gm/dl Globulin (2.5-4.0) gm/dl Albumin/Globulin Ratio (0.9-2) POC Stool Occult Blood Positive A (Negative) COVID-19 Eval Order Covid19 at [facility] SARS-CoV-2 (PCR) NEGATIVE (Negative) Blood Type Antibody Screen 12/10/20 12/10/20 12/10/20 Range/Units 12:30 12:30 12:30 WBC 5.31 (4.8-10.8) K/uL RBC 3.60 L (4.2-5.4) M/uL Hgb 9.8 L (12.0-16.0) g/dL Hct 34.5 L (37-47) % MCV 95.8 (80-100) fL MCH 27.2 (25-34) pg MCHC 28.4 L (32-36) g/dL RDW Std Deviation 66.8 H (36.4-46.3) fL RDW Coeff of Nhi 19.3 H (11.5-14.5) % Plt Count 92 L (130-400) K/uL Immature Gran % (Auto) 1.3 % Neut % (Auto) 77.8 % Lymph % (Auto) 12.4 % [place] % (Auto) 7.2 % Eos % (Auto) 0.9 % Baso % (Auto) 0.4 % Neut # (Auto) 4.13 (1.4-6.5) K/uL Lymph # (Auto) 0.66 L (1.2-3.4) K/uL [place] # (Auto) 0.38 (0.11-0.59) K/uL Eos # (Auto) 0.05 (0-0.5) K/uL Baso # (Auto) 0.02 (0-0.2) K/uL Immature Gran # (Auto) 0.07 H (0.00-0.02) K/uL Absolute Nucleated RBC (0-0) K/uL Nucleated RBC % (auto) % Platelet Estimate Decreased L (Normal) Polychromasia 1+ Stomatocytes PT 10.9 (9.0-12.0) Seconds INR 1.1 (0.9-1.1) Sodium 146 H (136-145) mmol/L Potassium 4.7 (3.5-5.1) mmol/L Chloride 106 (98-107) mmol/L Carbon Dioxide 40 H (21-32) mmol/L Anion Gap 0 L (3-11) BUN 42 H (7-18) mg/dl Creatinine 1.78 H (0.6-1.2) mg/dl Est Cr Clr Drug Dosing Not Reportable Est GFR ( Amer) 30.9 ml/min Est GFR (Non-Af Amer) 26.7 ml/min BUN/Creatinine Ratio 23.9 H (10-20) Glucose 168 H (70-99) mg/dl POC Glucose (70-99) mg/dl Estimat Average Glucose mg/dl Hemoglobin A1c (4.5-5.6) % Calcium 8.2 L (8.5-10.1) mg/dl Magnesium (1.8-2.4) mg/dl Total Bilirubin 0.8 (0.2-1) mg/dl AST 31 (15-37) U/L ALT 40 (12-78) U/L Alkaline Phosphatase 97 (45-117) U/L Total Protein 5.9 L (6.4-8.2) gm/dl Albumin 3.2 L (3.4-5.0) gm/dl Globulin 2.7 (2.5-4.0) gm/dl Albumin/Globulin Ratio 1.2 (0.9-2) POC Stool Occult Blood (Negative) COVID-19 Eval Order SARS-CoV-2 (PCR) (Negative) Blood Type Antibody Screen Diagnostic Findings Head CT 12/10/20 13:37 CT SCAN OF THE BRAIN WITHOUT IV CONTRAST CLINICAL HISTORY: Fall. COMPARISON STUDY: CT of the brain dated 08/08/2020. TECHNIQUE: Unenhanced axial CT scan of the brain is performed from the vertex to the skull base. A dose lowering technique was utilized adhering to the principles of ALARA. CT DOSE: 765.09 mGycm FINDINGS: Brain parenchyma: Dural thickening and calcification due to craniotomy site is likely on a postoperative basis. There are age-related involutional changes noting minimal microangiopathic change. There is no hemorrhage, mass effect, or evidence of acute territorial ischemia by CT criteria. Finn-white matter differentiation is preserved. No extra-axial fluid collection is seen. Prominence of the frontal extra-axial spaces is unchanged from previous. Ventricles, sulci, cisterns: Prominent secondary to involutional change. Intracranial vasculature: There is atherosclerotic calcification of the cavernous carotid and vertebral arteries. Calvarium: The skeletal structures are osteopenic. No depressed calvarial fracture is identified. There is postoperative change from right-sided craniotomy. Sinuses and mastoids: The visualized paranasal sinuses are clear. The mastoid air cells are well pneumatized. Orbits: The bony orbits are grossly intact. There are bilateral ocular lens implants. IMPRESSION: 1. There is no hemorrhage, mass effect, or evidence of acute territorial ischemia by CT criteria. 2. Postoperative and age-related changes as above. ACT 112: Negative or not required by law. Electronically signed by: Eliceo Hart M.D. 12/10/2020 2:13 PM PG Care Time/CCT Total # of Minutes Spent Total Time Spent with Patient: Total time spent is greater than 50% in coordination of care (as documented) at patient's floor/unit and/or counseling patient: Prolonged Care Time Prolonged Care Time: Yes Total Prolonged Care Time: 90 additional time spent reviewing chart and previous admissions, coordinating with CM regarding abx for prior UTI and treatment, discussion with GI, discussion with Urology and coordination of care Coding Level of Care Code 68828 Subseq Hosp Care Lvl 3 (25 - SIGNIFICANT, SEPARATELY IDENTIFIABLE ) Diagnoses Blood per rectum K62.5 CHF (congestive heart failure) I50.9 Heart failure chronicity: chronic Heart failure type: unspecified Coronary artery disease I25.10 Associated angina: without angina Coronary Disease-Associated Artery/Lesion type: cheesh-na artery [place] vs. transplanted heart: cheesh-na heart Afib I48.91 Atrial fibrillation type: unspecified Polymyalgia rheumatica M35.3 Shortness of breath R06.02 Diabetes E11.9; Z79.4 Diabetes mellitus complication status: without complication Diabetes mellitus supervising nurse insulin use: with mcfp use Diabetes mellitus type: type 2 Hyphema of left eye H21.02 Additional Codes Prolonged Care Time - Prolonged Care Time: Yes ([id number]) (1) Diabetes Diabetes mellitus complication status: without complication Diabetes mellitus supervising nurse insulin use: with supervising nurse use Diabetes mellitus type: type 2 Qualified Code(s): E11.9 - Type 2 diabetes mellitus without complications; Z79.4 - prison (current) use of insulin (2) Coronary artery disease Associated angina: without angina Coronary Disease-Associated Artery/Lesion type: cheesh-na artery [place] vs. transplanted heart: cheesh-na heart Qualified Code(s): I25.10 - Atherosclerotic heart disease of cheesh-na coronary artery without angina pectoris (3) CHF (congestive heart failure) Heart failure chronicity: chronic Heart failure type: unspecified Qualified Code(s): I50.9 - Heart failure, unspecified (4) Afib Atrial fibrillation type: unspecified Qualified Code(s): I48.91 - Unspecified atrial fibrillation
--- NOTE | 2020-12-11 08:56 | Gastrointestinal Consultation ---
Date of Consultation December 11, 2020 Assessment & Plan (1) Heme positive stool: Concerns for GI bleeding: Concerns for rectal bleeding in a patient on chronic anticoagulation with Plavix and Eliquis. ED notes are reviewed, per ER notes blood on urinary catheter and with physical exam bleeding appeared to be coming from urethra. Urology consult has been placed. GYPSY this morning demonstrated brown liquid stool in rectal vault. Heme + stool testing. ? hemorrhoidal bleeding. Patient remains a very poor candidate for colonoscopy prep and procedural sedation. Await consult. Consider flexible sigmoidoscopy. Will continue to monitor. Case reviewed with Dr. Graves. Please refer to supervising physician addendum for further recommendations. Supervising Physician Co-Signing Physician Notes I have seen and examined the patient. I agree with note above by [facility] except as noted below. HPI Bleeding noted and she presented to ER. She denies abd pain. PE Abdomen pos bs, soft, moderately distended and tympanitic. A/P Bleeding Per ER note there was blood noted coming from urethra, >30 RBCs noted on UA, and stool today brown on rectal exam. Therefore, bleeding from system seems much more likely than rectal bleeding. She is at increased risk for procedures given multiple medical problems so doing a colonoscopy for anything other than life threatening bleeding would not be advised. Even if she had rectal bleeding, given the brown stool today, a local process such as hemorrhoids would be most likely since she bled yesterday. Will sign off. Please call for further questions. History of Present Illness Attending Physician: Catarina Farrell MD History of Present Illness The patient is a pleasant 80-year-old female with past medical history to include stage IV chronic kidney disease, COPD, 2 diabetes, diastolic CHF, diffuse large B-cell lymphoma (08/2012), dyslipidemia, hypertension, hypertrophic cardiomyopathy, hypothyroidism, history of myocardial infarction x4, peripheral neuropathy, proteinuria, subdural hematoma, chronic thrombocytopenia, vitamin D deficiency who presented to the emergency department 12/10/2020 with rectal bleeding. Patient is chronically anticoagulated with Plavix and Eliquis. She was subsequently admitted a GI consult was placed due to concerns for rectal bleeding for evaluation of colonoscopy. Urology has also been consulted as per ER notes, bleeding appeared to be coming from urethra. On exam/interview today, the patient is sleeping but wakes easily with verbal stimuli. She is a poor historian. She denies any abdominal pain. She states she has had continued rectal bleeding through the night. Bleeding has been bright red in nature. She states that she had quite a bit at home. Reports intermittent nausea. Denies vomiting. Reports history of non-Hodgkin's lymphoma sees Dr. Serrano in the cancer center. The patient lives at home with her and he serves as her primary caregiver. She also has visiting home nurses. Records are reviewed: 11/25/2020: EGD was obtained due to heme positive stools and melena which demonstrated a regular Z-line 45 cm from incisors; examined esophagus was normal; examined stomach was normal; examined duodenum was normal. 05/14/2020: EGD demonstrated regular z-line, 40cm from incisors. Normal esophagus. Normal stomach. Normal examined stomach. No specimens were collected. 09/30/2015: EGD notes reviewed performed by Dr. Rothman due to complaints of dysphasia demonstrated regular Z line found at 40 cm from incisors; dilation performed with savory dilator with no resistance to 16 mm and 18 mm. Normal stomach. Normal examined duodenum. 06/24/2010: Colonoscopy notes reviewed performed by Dr. Solsi demonstrated transverse colon polyp, descending colon polyp, sigmoid colon polyp, diverticulosis Allergies Allergy/AdvReac Type Severity Reaction Status Date / Time eptifibatide Allergy Severe ANAPHYLAXIS Verified 12/10/20 14:15 hornet venom Allergy Severe WASP VENOM Verified 12/10/20 14:15 PROTEIN-ANAPHYLAXIS levofloxacin [From Levaquin] Allergy Severe Hives Verified 12/10/20 14:15 atorvastatin Allergy Intermediate MUSCLE PAIN Verified 12/10/20 14:15 ezetimibe Allergy Intermediate MUSCLE PAIN Verified 12/10/20 14:15 simvastatin Allergy Intermediate MUSCLE PAIN Verified 12/10/20 14:15 rosuvastatin [From Crestor] Allergy Rash Verified 12/10/20 14:15 amlodipine AdvReac Severe Nausea Verified 12/10/20 14:15 azithromycin AdvReac Intermediate Palpitation Verified 12/10/20 14:15 s cortisone AdvReac Intermediate INCREASES Verified 12/10/20 14:15 SUGAR AND VOMITING? hydralazine AdvReac Intermediate VOMITING Verified 12/10/20 14:15 ibuprofen AdvReac Intermediate VOMITING Verified 12/10/20 14:15 AND DIARRHEA iodine AdvReac Intermediate SHELLFISH Verified 12/10/20 14:15 - VOMITING shellfish derived AdvReac Intermediate VOMITING Verified 12/10/20 14:15 Sulfa (Sulfonamide AdvReac Intermediate VOMITING Verified 12/10/20 14:15 Antibiotics) warfarin AdvReac Intermediate EXTREME Verified 12/10/20 14:15 BLEEDING TIMES codeine AdvReac Mild VOMITING Verified 12/10/20 14:15 gemfibrozil AdvReac Mild NAUSEA Verified 12/10/20 14:15 meperidine AdvReac Mild VOMITING Verified 12/10/20 14:15 ondansetron AdvReac Mild vomiting Verified 12/10/20 14:15 ranitidine [From Zantac] AdvReac Mild dyspepsia Verified 12/10/20 14:15 Home Medications Medication Instructions Recorded Confirmed Type multivitamin 1 tab PO QAM 06/20/18 12/10/20 History nitroglycerin 0.4 mg sublingual 0.4 mg SL Q5M PRN #25 tab 02/26/19 12/10/20 History tablet levothyroxine [Synthroid] 25 mcg PO QAM 06/04/19 12/10/20 History buspirone 10 mg PO BID 07/12/19 12/10/20 History sennosides 8.6 mg tablet 8.6 mg PO QAM PRN tab 07/07/20 12/10/20 History escitalopram oxalate 5 mg PO QAM 07/20/20 12/10/20 History allopurinol 200 mg PO QAM 08/08/20 12/10/20 History potassium chloride 10 meq PO BID 08/08/20 12/10/20 History prednisone 5 mg tablet 2.5 mg PO DAILY tab 08/22/20 12/10/20 History apixaban 5 mg tablet 5 mg PO BID #60 tab 09/18/20 12/10/20 Rx insulin lispro [Humalog KwikPen 15 unit SUBCUT TID 09/19/20 12/10/20 History Insulin] furosemide 40 mg PO DAILY #0 tab 09/30/20 12/10/20 Rx acetaminophen 325 mg tablet 325 mg PO Q4H PRN tab 10/20/20 12/10/20 History albuterol sulfate 2.5 mg CONTINUOUS NEBULIZATION Q6H 11/24/20 12/10/20 History PRN clopidogrel 75 mg PO QAM 11/24/20 12/10/20 History ergocalciferol (vitamin D2) 50,000 unit PO WK 11/24/20 12/10/20 History famotidine 20 mg PO BID 11/24/20 12/10/20 History ipratropium-albuterol 3 ml INHALATION Q6H PRN 11/24/20 12/10/20 History metoprolol tartrate 25 mg PO BID 11/24/20 12/10/20 History cefdinir 300 mg PO DAILY 6 Days #6 cap 12/10/20 12/10/20 Rx Patient History Medical History Acute on chronic diastolic heart failure Acute upper gastrointestinal bleeding Acute UTI (urinary tract infection) Anemia Anemia Angina pectoris Blood per rectum CHI (closed head injury) Chronic kidney disease, stage IV (severe) Chronic respiratory failure with hypoxia and hypercapnia COPD with acute exacerbation Depression with anxiety Diabetes Diabetic foot ulcer associated with type 2 diabetes mellitus 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) [place] (dyspnea on exertion) Dyslipidemia Elevated troponin Elevated troponin Elevated troponin I level Fall Fracture of head of left humerus HTN (hypertension) Hypercarbia Hypertrophic cardiomyopathy apical variant Hypothyroidism Knee arthropathy Lung cancer Myocardial infarction X4 Paroxysmal A-fib Peripheral neuropathy Proteinuria Thrombocytopenia Thrombocytopenia Vitamin D deficiency Surgical History History of cardioversion MULTIPLE History of cataract surgery History of lung surgery PARTIAL LEFT LOBECTOMY (2013) Hx of brain surgery 2017 S/P FALL/INJURY; SUBSEQUENT BLOOD CLOT EVACUATION Knee joint replacement status S/P cardiac catheterization 7 TOTAL; CARDIAC STENTS X6 S/P hysterectomy S/P tonsillectomy Family History Father , Patient age 82 of stomach cancer. Cancer Heart disease Diabetes Mother , age 93 of heart issues Stroke Hypertension Heart disease Grandmother (Maternal) Coronary heart disease Stroke Family/Other Multiple sclerosis Brother Coronary heart disease Grandfather (Maternal) Heart disease Grandfather (Paternal) Diabetes Aunt Muscular dystrophy Other Gallbladder disease Kidney stones Social History Smoking Status: Never smoker Second Hand Exposure: No; Hx Alcohol Use: No Hx Substance Use: No Preferred Language: Bulgarian Communication Ability: Effective Entry Level Manager Required: No Beliefs That Will Affect Care: None marital status: Current Living Situation: Spouse 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al status: retired 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: Retired/Disabled - [employer] How many Children do You have: 3 other: 3 children Feels Safe at Home: Yes Assistive Devices: BiPap and Oxygen - Continuous Review of Systems Review of Systems: All systems reviewed & are unremarkable except as noted in HPI & below Physical Exam Constitutional: + ill appearing (chronically); no acute distress Eyes: Left sided subconjunctival hemorrhage Neck: normal visual inspection Respiratory: no respiratory distress Cardiovascular: Extremities: + edema (BLE) Gastrointestinal (Abdomen): Inspection/Auscultation: + abdomen distended and normal bowel sounds Percussion/Palpation: abdomen soft and + tympanic to percussion; abdomen nontender, no guarding and abdomen not rigid Rectal Exam: + hemorrhoids Dried bright red drainage noted in incontinence underwear and on perineum without stool noted - cleansed with cleaning cloths; GYPSY with nurse at bedside demonstrated liquid brown stool in rectal vault; Heme + stool Skin: + ecchymosis (right arm) Psychiatric: Orientation: alert, oriented to person and oriented to place Results & Data ([facility]) Vital Signs (Past 12 Hours) Vital Signs Temp Pulse Pulse Resp BP Pulse Ox 12/11/20 07:30 36.7 C 72 18 118/49 L 98 12/10/20 23:12 36.3 C L 74 18 131/74 95 Laboratory Results - last 24 hr 12/10/20 12/10/20 12/10/20 12:30 12:30 12:30 WBC 5.31 RBC 3.60 L Hgb 9.8 L Hct 34.5 L MCV 95.8 MCH 27.2 MCHC 28.4 L RDW Std Deviation 66.8 H RDW Coeff of Nhi 19.3 H Plt Count 92 L Immature Gran % (Auto) 1.3 Neut % (Auto) 77.8 Lymph % (Auto) 12.4 Mcclain % (Auto) 7.2 Eos % (Auto) 0.9 Baso % (Auto) 0.4 Neut # (Auto) 4.13 Lymph # (Auto) 0.66 L Mcclain # (Auto) 0.38 Eos # (Auto) 0.05 Baso # (Auto) 0.02 Immature Gran # (Auto) 0.07 H Absolute Nucleated RBC Nucleated RBC % (auto) Platelet Estimate Decreased L Polychromasia 1+ Stomatocytes PT 10.9 INR 1.1 Sodium 146 H Potassium 4.7 Chloride 106 Carbon Dioxide 40 H Anion Gap 0 L BUN 42 H Creatinine 1.78 H Est Cr Clr Drug Dosing Not Reportable Est GFR ( Amer) 30.9 Est GFR (Non-Af Amer) 26.7 BUN/Creatinine Ratio 23.9 H Glucose 168 H POC Glucose Estimat Average Glucose Hemoglobin A1c Calcium 8.2 L Magnesium Total Bilirubin 0.8 AST 31 ALT 40 Alkaline Phosphatase 97 Troponin I Total Protein 5.9 L Albumin 3.2 L Globulin 2.7 Albumin/Globulin Ratio 1.2 TSH POC Stool Occult Blood COVID-19 Eval Order SARS-CoV-2 (PCR) Blood Type Antibody Screen 12/10/20 12/10/20 12/10/20 13:39 13:45 13:45 WBC RBC Hgb Hct MCV MCH MCHC RDW Std Deviation RDW Coeff of Nhi Plt Count Immature Gran % (Auto) Neut % (Auto) Lymph % (Auto) Mcclain % (Auto) Eos % (Auto) Baso % (Auto) Neut # (Auto) Lymph # (Auto) Mcclain # (Auto) Eos # (Auto) Baso # (Auto) Immature Gran # (Auto) Absolute Nucleated RBC Nucleated RBC % (auto) Platelet Estimate Polychromasia Stomatocytes PT INR Sodium Potassium Chloride Carbon Dioxide Anion Gap BUN Creatinine Est Cr Clr Drug Dosing Est GFR ( Amer) Est GFR (Non-Af Amer) BUN/Creatinine Ratio Glucose POC Glucose Estimat Average Glucose Hemoglobin A1c Calcium Magnesium Total Bilirubin AST ALT Alkaline Phosphatase Troponin I Total Protein Albumin Globulin Albumin/Globulin Ratio TSH POC Stool Occult Blood Positive A COVID-19 Eval Order Covid19 at [facility] SARS-CoV-2 (PCR) NEGATIVE Blood Type Antibody Screen 12/10/20 12/10/20 12/10/20 16:17 17:15 20:42 WBC RBC Hgb Hct MCV MCH MCHC RDW Std Deviation RDW Coeff of Nhi Plt Count Immature Gran % (Auto) Neut % (Auto) Lymph % (Auto) Mcclain % (Auto) Eos % (Auto) Baso % (Auto) Neut # (Auto) Lymph # (Auto) Mcclain # (Auto) Eos # (Auto) Baso # (Auto) Immature Gran # (Auto) Absolute Nucleated RBC Nucleated RBC % (auto) Platelet Estimate Polychromasia Stomatocytes PT INR Sodium Potassium Chloride Carbon Dioxide Anion Gap BUN Creatinine Est Cr Clr Drug Dosing Est GFR ( Amer) Est GFR (Non-Af Amer) BUN/Creatinine Ratio Glucose POC Glucose 168 H 146 H Estimat Average Glucose Hemoglobin A1c Calcium Magnesium Total Bilirubin AST ALT Alkaline Phosphatase Troponin I Total Protein Albumin Globulin Albumin/Globulin Ratio TSH POC Stool Occult Blood COVID-19 Eval Order SARS-CoV-2 (PCR) Blood Type A Positive Antibody Screen NEGATIVE 12/11/20 12/11/20 12/11/20 05:26 05:26 05:26 WBC 5.78 RBC 3.37 L Hgb 9.2 L Hct 33.0 L MCV 97.9 MCH 27.3 MCHC 27.9 L RDW Std Deviation 69.5 H RDW Coeff of Nhi 19.4 H Plt Count 79 L Immature Gran % (Auto) 0.7 Neut % (Auto) 80.9 Lymph % (Auto) 10.4 Mcclain % (Auto) 7.1 Eos % (Auto) 0.7 Baso % (Auto) 0.2 Neut # (Auto) 4.68 Lymph # (Auto) 0.60 L Mcclain # (Auto) 0.41 Eos # (Auto) 0.04 Baso # (Auto) 0.01 Immature Gran # (Auto) 0.04 H Absolute Nucleated RBC 0.02 H Nucleated RBC % (auto) 0.3 Platelet Estimate Decreased L Polychromasia 1+ Stomatocytes 1+ PT INR Sodium 145 Potassium 4.5 Chloride 106 Carbon Dioxide 39 H Anion Gap 0 L BUN 40 H Creatinine 1.75 H Est Cr Clr Drug Dosing 25.8 Est GFR ( Amer) 31.5 Est GFR (Non-Af Amer) 27.2 BUN/Creatinine Ratio 23.0 H Glucose 189 H POC Glucose Estimat Average Glucose 140 Hemoglobin A1c 6.5 H Calcium 7.8 L Magnesium 1.9 Total Bilirubin AST ALT Alkaline Phosphatase Troponin I Total Protein Albumin Globulin Albumin/Globulin Ratio TSH POC Stool Occult Blood COVID-19 Eval Order SARS-CoV-2 (PCR) Blood Type Antibody Screen 12/11/20 12/11/20 05:26 08:21 WBC RBC Hgb Hct MCV MCH MCHC RDW Std Deviation RDW Coeff of Nhi Plt Count Immature Gran % (Auto) Neut % (Auto) Lymph % (Auto) Mcclain % (Auto) Eos % (Auto) Baso % (Auto) Neut # (Auto) Lymph # (Auto) Mcclain # (Auto) Eos # (Auto) Baso # (Auto) Immature Gran # (Auto) Absolute Nucleated RBC Nucleated RBC % (auto) Platelet Estimate Polychromasia Stomatocytes PT INR Sodium Potassium Chloride Carbon Dioxide Anion Gap BUN Creatinine Est Cr Clr Drug Dosing Est GFR ( Amer) Est GFR (Non-Af Amer) BUN/Creatinine Ratio Glucose POC Glucose 194 H Estimat Average Glucose Hemoglobin A1c Calcium Magnesium Total Bilirubin AST ALT Alkaline Phosphatase Troponin I Pending Total Protein Albumin Globulin Albumin/Globulin Ratio TSH Pending POC Stool Occult Blood COVID-19 Eval Order SARS-CoV-2 (PCR) Blood Type Antibody Screen 12/10/2020: CT of the abdomen and pelvis without contrast was obtained demonstrated 1. Interval development of small bilateral pleural effusion. Patchy infiltrative lesion within bilateral lower lobes might represent pneumonia in appropriate clinical settings. Please correlate above-mentioned findings with clinical presentation of pulmonary infectious process. 2. Mild fat stranding is seen surrounding the urinary bladder which could represent cystitis. Please correlate above-mentioned findings with results of urinalysis. 3. Severe atherosclerosis. Narrowing of the distal aortic lumen. Evaluation is limited due to lack of IV contrast. 4. Atrophic left kidney. No evidence of hydronephrosis. 5. The first diverticulosis of sigmoid colon without evidence of diverticulitis.
[2020-12-11] MEDS ORDERED: AMOXICILLIN 500 MG CAP PO SCH (09:00)
[2020-12-11 09:02] LABS: Thyroid Stimulating Hormone 1.6 uIu/ml (0.300-4.500); Troponin I 0.045 ng/ml (0-0.045)
[2020-12-11] MEDS: busPIRone 5 MG TAB PO SCH ×2 (09:49→20:23)
[2020-12-11] MEDS: predniSONE 2.5 MG TAB PO SCH (09:49)
[2020-12-11] MEDS: ESCITALOPRAM OXALATE 10 MG TAB PO SCH (09:49)
[2020-12-11] MEDS: FUROSEMIDE 40 MG TAB PO SCH (09:49)
[2020-12-11] MEDS: POTASSIUM CHLORIDE 10 MEQ TABCR PO SCH (09:49)
[2020-12-11] MEDS: FAMOTIDINE 20 MG TAB PO SCH ×2 (09:50→20:23)
[2020-12-11] MEDS: INSULIN ASPART 100 UNITS/ML 3 ML PEN SC SCH ×4 (09:50→22:27)
[2020-12-11] MEDS: SENNA 8.6 MG TAB PO PRN (09:50)
[2020-12-11] MEDS: METOPROLOL TARTRATE 25 MG TAB PO SCH ×2 (09:50→20:33)
[2020-12-11] MEDS ORDERED: acetaZOLAMIDE 250 MG TAB PO ONE (10:45)
--- NOTE | 2020-12-11 11:06 | Urology Consultation ---
Date of Consultation December 11, 2020 Assessment & Plan (1) Hematuria: (2) Cystitis: 80 year-old female patient, with multiple comorbidities, admitted with blood per rectum with heme positive stool, found to have hematuria. -Plan of care reviewed with Dr. Taylor. -Patient afebrile. -Labs reviewed - white count 5.78, hemoglobin 9.2, creatinine stable at 1.75. -Urinalysis on admission with >30 rbc, recommend obtaining urine culture given recent UTI. -Plan for urine cytology. -Imaging reviewed with Dr. Taylor - no obstructing stones or concerning masses, notes cystitis. -Recommend cystoscopy for further evaluation, will arrange as outpatient. -Continue with supportive care and close monitoring. -Await results of urine culture and treat if indicated. -Will continue to follow while inpatient. History of Present Illness Reason for Consultation: Hematuria Attending Physician: Catarina Farrell MD History of Present Illness 80 year-old female patient, with past medical history of CAD, CKD IV, atrial fibrillation with ablation and ICD, chronic anticoagulation, dementia, COPD on chronic oxygen 3L and BiPAP, polymyalgia rheumatica on prednisone, DM2 on insulin, diffuse B cell lymphoma with Mediport, depression, and other medical conditions listed below, who presented to the emergency room with complaints of rectal bleeding. Of note, patient recently discharged on 11/26/2020 following admission for melena. She states she had a fall this past Tuesday and believed she had vaginal bleeding thereafter. Was seen in the ER for this and per ER notes, there was concern for bleeding coming from the urethra. She was given 3 days of Omnicef. She then returned to ER later that day with then complaints of rectal bleeding. She was admitted to hospital service for further management. Urology consulted for hematuria. Patient was seen by [facility] urology service in 2019 for ureteral stone which she spontaneously passed. Last seen outpatient with our service in August 2018. Chart review: Afebrile Wbc 5.78 Hgb 9.2 (previously 9.8) Creatinine 1.75 (baseline ~1.7-2.0) Urinalysis on admission trace leukocytes, >30 rbc, >30 wbc, >30 epithelial cells, +1 bacteria. Urine culture 10/29 positive for Enterococcus, per patient she was treated for this and per hospital notes, was treated with Amoxicillin 10/30 until 11/04. Repeat urine culture ordered, not collected. Imaging - CT abd/pelvis without contrast - IMPRESSION: 1. Interval development of small bilateral pleural effusion. Patchy infiltrativ e lesion within bilateral lower lobes might represent pneumonia in appropriate clinical settings. Please correlate above-mentioned findings with clinical presentation of pulmonary infectious process. 2. Mild fat stranding is seen surrounding the urinary bladder which could represent cystitis. Please correlate above-mentioned findings with results of urinalysis. 3. Severe atherosclerosis. Narrowing of the distal aortic lumen. Evaluation is limited due to lack of IV contrast. 4. Atrophic left kidney. No evidence of hydronephrosis. 5. The first diverticulosis of sigmoid colon without evidence of diverticulitis. Patient seen and examined at bedside. She is alert, awake, non-toxic. She denies any prior history of hematuria. Does note history of kidney stones but states she has not had surgical intervention for these. She currently denies dysuria or gross hematuria. Does note some urinary frequency/urgency at baseline. Does also have baseline urinary incontinence. Feels she empties her bladder well. Denies bladder pain or pressure. Denies flank or abdominal pain. No personal history of renal/bladder cancers. No history of smoking. She denies fevers or chills. Denies nausea or vomiting. She has seen GI for consult regarding workup for rectal bleeding. Denies additional urologic concerns today. Allergies Allergy/AdvReac Type Severity Reaction Status Date / Time eptifibatide Allergy Severe ANAPHYLAXIS Verified 12/10/20 14:15 hornet venom Allergy Severe WASP VENOM Verified 12/10/20 14:15 PROTEIN-ANAPHYLAXIS levofloxacin [From Levaquin] Allergy Severe Hives Verified 12/10/20 14:15 atorvastatin Allergy Intermediate MUSCLE PAIN Verified 12/10/20 14:15 ezetimibe Allergy Intermediate MUSCLE PAIN Verified 12/10/20 14:15 simvastatin Allergy Intermediate MUSCLE PAIN Verified 12/10/20 14:15 rosuvastatin [From Crestor] Allergy Rash Verified 12/10/20 14:15 amlodipine AdvReac Severe Nausea Verified 12/10/20 14:15 azithromycin AdvReac Intermediate Palpitation Verified 12/10/20 14:15 s cortisone AdvReac Intermediate INCREASES Verified 12/10/20 14:15 SUGAR AND VOMITING? hydralazine AdvReac Intermediate VOMITING Verified 12/10/20 14:15 ibuprofen AdvReac Intermediate VOMITING Verified 12/10/20 14:15 AND DIARRHEA iodine AdvReac Intermediate SHELLFISH Verified 12/10/20 14:15 - VOMITING shellfish derived AdvReac Intermediate VOMITING Verified 12/10/20 14:15 Sulfa (Sulfonamide AdvReac Intermediate VOMITING Verified 12/10/20 14:15 Antibiotics) warfarin AdvReac Intermediate EXTREME Verified 12/10/20 14:15 BLEEDING TIMES codeine AdvReac Mild VOMITING Verified 12/10/20 14:15 gemfibrozil AdvReac Mild NAUSEA Verified 12/10/20 14:15 meperidine AdvReac Mild VOMITING Verified 12/10/20 14:15 ondansetron AdvReac Mild vomiting Verified 12/10/20 14:15 ranitidine [From Zantac] AdvReac Mild dyspepsia Verified 12/10/20 14:15 Home Medications Medication Instructions Recorded Confirmed Type multivitamin 1 tab PO QAM 06/20/18 12/10/20 History nitroglycerin 0.4 mg sublingual 0.4 mg SL Q5M PRN #25 tab 02/26/19 12/10/20 History tablet levothyroxine [Synthroid] 25 mcg PO QAM 06/04/19 12/10/20 History buspirone 10 mg PO BID 07/12/19 12/10/20 History sennosides 8.6 mg tablet 8.6 mg PO QAM PRN tab 07/07/20 12/10/20 History escitalopram oxalate 5 mg PO QAM 07/20/20 12/10/20 History allopurinol 200 mg PO QAM 08/08/20 12/10/20 History potassium chloride 10 meq PO BID 08/08/20 12/10/20 History prednisone 5 mg tablet 2.5 mg PO DAILY tab 08/22/20 12/10/20 History apixaban 5 mg tablet 5 mg PO BID #60 tab 09/18/20 12/10/20 Rx insulin lispro [Humalog KwikPen 15 unit SUBCUT TID 09/19/20 12/10/20 History Insulin] furosemide 40 mg PO DAILY #0 tab 09/30/20 12/10/20 Rx acetaminophen 325 mg tablet 325 mg PO Q4H PRN tab 10/20/20 12/10/20 History albuterol sulfate 2.5 mg CONTINUOUS NEBULIZATION Q6H 11/24/20 12/10/20 History PRN clopidogrel 75 mg PO QAM 11/24/20 12/10/20 History ergocalciferol (vitamin D2) 50,000 unit PO WK 11/24/20 12/10/20 History famotidine 20 mg PO BID 11/24/20 12/10/20 History ipratropium-albuterol 3 ml INHALATION Q6H PRN 11/24/20 12/10/20 History metoprolol tartrate 25 mg PO BID 11/24/20 12/10/20 History cefdinir 300 mg PO DAILY 6 Days #6 cap 12/10/20 12/10/20 Rx Patient History Medical History Acute on chronic diastolic heart failure Acute upper gastrointestinal bleeding Acute UTI (urinary tract infection) Anemia Anemia Angina pectoris Blood per rectum CHI (closed head injury) Chronic kidney disease, stage IV (severe) Chronic respiratory failure with hypoxia and hypercapnia COPD with acute exacerbation Depression with anxiety Diabetes Diabetic foot ulcer associated with type 2 diabetes mellitus 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) [place] (dyspnea on exertion) Dyslipidemia Elevated troponin Elevated troponin Elevated troponin I level Fall Fracture of head of left humerus HTN (hypertension) Hypercarbia Hypertrophic cardiomyopathy apical variant Hypothyroidism Knee arthropathy Lung cancer Myocardial infarction X4 Paroxysmal A-fib Peripheral neuropathy Proteinuria Thrombocytopenia Thrombocytopenia Vitamin D deficiency Surgical History History of cardioversion MULTIPLE History of cataract surgery History of lung surgery PARTIAL LEFT LOBECTOMY (2013) Hx of brain surgery 2017 S/P FALL/INJURY; SUBSEQUENT BLOOD CLOT EVACUATION Knee joint replacement status S/P cardiac catheterization 7 TOTAL; CARDIAC STENTS X6 S/P hysterectomy S/P tonsillectomy Family History Father , Patient age 82 of stomach cancer. Cancer Heart disease Diabetes Mother , age 93 of heart issues Stroke Hypertension Heart disease Grandmother (Maternal) Coronary heart disease Stroke Family/Other Multiple sclerosis Brother Coronary heart disease Grandfather (Maternal) Heart disease Grandfather (Paternal) Diabetes Aunt Muscular dystrophy Other Gallbladder disease Kidney stones Social History Smoking Status: Never smoker Second Hand Exposure: No; Hx Alcohol Use: No Hx Substance Use: No Preferred Language: Armenian Communication Ability: Effective Collateral Analyst Required: No Beliefs That Will Affect Care: None marital status: Current Living Situation: Spouse 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al status: retired 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: Retired/Disabled - [employer] How many Children do You have: 3 other: 3 children Feels Safe at Home: Yes Assistive Devices: BiPap and Oxygen - Continuous Review of Systems Constitutional: as per Subjective / HPI; no fever and no chills Eyes: + problem reported (+hyphema of left eye) Ear, Nose, Mouth, Throat: no dizziness Respiratory: no cough and no dyspnea Cardiovascular: + edema; no chest pain Gastrointestinal: as per Subjective / HPI Genitourinary: as per Subjective / HPI Musculoskeletal: as per Subjective / HPI Neurologic: no dizziness Endocrine: no fatigue Hematologic / Lymphatic: as per Subjective / HPI Physical Exam Constitutional: well developed, well nourished, cooperative and comfortable; no acute distress Non-toxic on exam. Eyes: +hyphema of left eye ENMT: Ears: no external ear abnormality Nose: no external nose abnormality Neck: normal visual inspection and trachea midline Respiratory: normal respiratory effort and able to speak in complete sentences; no respiratory distress and no audible wheezes Chronic oxygen, 3L nasal cannula Cardiovascular: Extremities: + edema (+1 pitting edema to b/l lower extremities); no calf tenderness Gastrointestinal (Abdomen): Inspection/Auscultation: abdomen normal to inspection and + abdomen distended (Obese) Percussion/Palpation: abdomen soft; abdomen nontender and no guarding Musculoskeletal: Moves all extremities without difficulty. Skin: +ecchymosis to right arm. Neurologic: moves all extremities and awake Psychiatric: Orientation: alert, oriented x 3 and cooperative Affect: euthymic affect Genitourinary: no CVA tenderness Results & Data ([facility]) Vital Signs (Past 12 Hours) Vital Signs Temp Pulse Pulse Resp BP Pulse Ox 12/11/20 07:30 36.7 C 72 18 118/49 L 98 12/10/20 23:12 36.3 C L 74 18 131/74 95 PG Care Time/CCT Total # of Minutes Spent Total Time Spent with Patient: Total time spent is greater than 50% in coordination of care (as documented) at patient's floor/unit and/or counseling patient: Coding Level of Care Code 29419 Initial Inpt Care Lvl 2 Diagnoses Hematuria R31.0 Hematuria type: gross Cystitis N30.90 (1) Hematuria Hematuria type: gross Qualified Code(s): R31.0 - Gross hematuria
[2020-12-11 12:41] LABS: Ferritin 37.5 ng/ml (8-388)
[2020-12-11 13:23] LABS: Folate (Folic Acid) > 20.00 ng/ml (>5.38); Vitamin B12 708 pg/ml (193-986)
[2020-12-11] MEDS ORDERED: FUROSEMIDE 40 MG in SYRINGE 0 ML IV ONE (13:30)
--- NOTE | 2020-12-11 13:36 | XRay Report ---
XR chest 1V portable CLINICAL HISTORY: sob COMPARISON STUDY: November 24, 2020 FINDINGS: No pneumothorax. Interval silhouetting of the left hemidiaphragm which could represent small to moder ate left pleural effusion and possible associated with atelectasis or infiltrate within left lower anand ng. Minimal blunting of the right costophrenic angle could represent trace right pleural effusion. Diffus e prominence of pulmonary interstitium is again seen and unchanged since prior. Postoperative changes are again seen within left upper lung. Cardiomediastinal silhouette is mildly enlarged since stable since prior. Aorta is calcified. Pulmonary vasculature is indistinct.. Osseous structures: Degenerative changes of the spine. Deformity of the left shoulder. Stable position of left-sided Chemo-Port and right-sided dual-lead pacemaker. IMPRESSION: 1. Redemonstration of stable cardiomegaly and possible pulmonary edema. Interval worsening/redistrib ution bilateral pleural effusion. ACT 112: Negative or not required by law. The above report was generated using voice recognition software. It may contain grammatical, syntax o r spelling errors. Electronically signed by: Jennifer Hyde DO 12/11/2020 1:34 PM
--- NOTE | 2020-12-11 15:06 | Ultrasound Report ---
ULTRASOUND OF THE CAROTID ARTERIES CLINICAL HISTORY: Frequent falls. COMPARISON STUDY: No priors. TECHNIQUE: Real-time, grayscale, and color Doppler sonography of the carotid arteries is performed. I mages are reviewed in the transverse and longitudinal planes. FINDINGS: Blood pressures were not obtained due to upper extremity edema. The carotid arteries are patent bilaterally and demonstrate antegrade flow. There is moderate echogen ic shadowing atherosclerotic plaque seen bilaterally, right greater than left. Normal doppler arteria l waveforms are seen throughout. Velocity measurements are listed below. Common carotid peak systolic velocity (cm/sec): RIGHT: 76 LEFT: 52 ICA proximal peak systolic velocity (cm/sec): RIGHT: 89 LEFT: 48 ICA mid peak systolic velocity (cm/sec): RIGHT: 80 LEFT: 69 ICA distal peak systolic velocity (cm/sec): RIGHT: 73 LEFT: 78 ICA/CC peak systolic ratio: RIGHT: 1.1 LEFT: 1.5 Antegrade flow was shown in the vertebral arteries. The external carotid arteries are patent. IMPRESSION: 1. Atherosclerotic plaque with no sonographic evidence of hemodynamically significant stenosis in the right or left carotid arterial system by velocity criteria. 2. Antegrade flow is shown in the vertebral arteries. ACT 112: Negative or not required by law. Electronically signed by: Eliceo Hart M.D. 12/11/2020 3:05 PM
[2020-12-11] MEDS ORDERED: PHARMACY GLYCEMIC MGMT CONSULT SCH (16:36)
[2020-12-11] MEDS: FUROSEMIDE 40 MG in SYRINGE 0 ML IV SCH (18:15)
--- NOTE | 2020-12-11 18:27 | Cardiology Consultation ---
Date of Consultation December 11, 2020 Assessment & Plan (1) Acute exacerbation of CHF (congestive heart failure): She appears edematous, hypervolemic and mildly congested. It seems that her home diuretic regimen has not been adequate a controlling her volume. She was started on intravenous diuretics year will monitor her progress. (2) Coronary artery disease: Remote history of intervention to the right coronary artery. No current symptoms suggestive of coronary insufficiency or angina. Continue aggressive secondary prevention to include apixaban, clopidogrel and metoprolol. Previously intolerant to statin therapies. (3) Afib: Permanent. She has adequate rate control. She has a history of AV node ablation. She has had her Eliquis and Plavix held due to the potential for bleeding. We will need to see the results of her testing to determine when it would be safe to reinstitute anticoagulation. (4) Pacemaker: Medtronic dual-chamber History of Present Illness Reason for Consultation: Heart failure Requesting Physician: Inderjit Attending Physician: Catarina Farrell MD History of Present Illness The patient is a 80-year-old woman with a history of coronary artery disease, diastolic heart failure, atrial fibrillation status post AV node ablation and pacemaker. She presents to the hospital due to concerns of bleeding. Patient states that she has noticed a lot of blood in her perineal area. She was unclear as to the source. Possibly vaginal, possibly related to her urinary tract or even rectal bleeding. She was admitted for evaluation. She was felt to have an element of volume overload as well. Patient states that she has been ambulating normally. Recently she has been more weak and somewhat winded. She is limited by breathing difficulty at times. She is very sedentary individual. She did not report symptoms of dizziness or lightheadedness. She has not been aware of any palpitations. She did not endo rse symptoms of chest discomfort. She claims to follow a no sodium diet Allergies Allergy/AdvReac Type Severity Reaction Status Date / Time eptifibatide Allergy Severe ANAPHYLAXIS Verified 12/10/20 14:15 hornet venom Allergy Severe WASP VENOM Verified 12/10/20 14:15 PROTEIN-ANAPHYLAXIS levofloxacin [From Levaquin] Allergy Severe Hives Verified 12/10/20 14:15 atorvastatin Allergy Intermediate MUSCLE PAIN Verified 12/10/20 14:15 ezetimibe Allergy Intermediate MUSCLE PAIN Verified 12/10/20 14:15 simvastatin Allergy Intermediate MUSCLE PAIN Verified 12/10/20 14:15 rosuvastatin [From Crestor] Allergy Rash Verified 12/10/20 14:15 amlodipine AdvReac Severe Nausea Verified 12/10/20 14:15 azithromycin AdvReac Intermediate Palpitation Verified 12/10/20 14:15 s cortisone AdvReac Intermediate INCREASES Verified 12/10/20 14:15 SUGAR AND VOMITING? hydralazine AdvReac Intermediate VOMITING Verified 12/10/20 14:15 ibuprofen AdvReac Intermediate VOMITING Verified 12/10/20 14:15 AND DIARRHEA iodine AdvReac Intermediate SHELLFISH Verified 12/10/20 14:15 - VOMITING shellfish derived AdvReac Intermediate VOMITING Verified 12/10/20 14:15 Sulfa (Sulfonamide AdvReac Intermediate VOMITING Verified 12/10/20 14:15 Antibiotics) warfarin AdvReac Intermediate EXTREME Verified 12/10/20 14:15 BLEEDING TIMES codeine AdvReac Mild VOMITING Verified 12/10/20 14:15 gemfibrozil AdvReac Mild NAUSEA Verified 12/10/20 14:15 meperidine AdvReac Mild VOMITING Verified 12/10/20 14:15 ondansetron AdvReac Mild vomiting Verified 12/10/20 14:15 ranitidine [From Zantac] AdvReac Mild dyspepsia Verified 12/10/20 14:15 Home Medications Medication Instructions Recorded Confirmed Type multivitamin 1 tab PO QAM 06/20/18 12/10/20 History nitroglycerin 0.4 mg sublingual 0.4 mg SL Q5M PRN #25 tab 02/26/19 12/10/20 History tablet levothyroxine [Synthroid] 25 mcg PO QAM 06/04/19 12/10/20 History buspirone 10 mg PO BID 07/12/19 12/10/20 History sennosides 8.6 mg tablet 8.6 mg PO QAM PRN tab 07/07/20 12/10/20 History escitalopram oxalate 5 mg PO QAM 07/20/20 12/10/20 History allopurinol 200 mg PO QAM 08/08/20 12/10/20 History potassium chloride 10 meq PO BID 08/08/20 12/10/20 History prednisone 5 mg tablet 2.5 mg PO DAILY tab 08/22/20 12/10/20 History apixaban 5 mg tablet 5 mg PO BID #60 tab 09/18/20 12/10/20 Rx insulin lispro [Humalog KwikPen 15 unit SUBCUT TID 09/19/20 12/10/20 History Insulin] furosemide 40 mg PO DAILY #0 tab 09/30/20 12/10/20 Rx acetaminophen 325 mg tablet 325 mg PO Q4H PRN tab 10/20/20 12/10/20 History albuterol sulfate 2.5 mg CONTINUOUS NEBULIZATION Q6H 11/24/20 12/10/20 History PRN clopidogrel 75 mg PO QAM 11/24/20 12/10/20 History ergocalciferol (vitamin D2) 50,000 unit PO WK 11/24/20 12/10/20 History famotidine 20 mg PO BID 11/24/20 12/10/20 History ipratropium-albuterol 3 ml INHALATION Q6H PRN 11/24/20 12/10/20 History metoprolol tartrate 25 mg PO BID 11/24/20 12/10/20 History cefdinir 300 mg PO DAILY 6 Days #6 cap 12/10/20 12/10/20 Rx Patient History Medical History Acute on chronic diastolic heart failure Acute upper gastrointestinal bleeding Acute UTI (urinary tract infection) Anemia Anemia Angina pectoris Blood per rectum CHI (closed head injury) Chronic kidney disease, stage IV (severe) Chronic respiratory failure with hypoxia and hypercapnia COPD with acute exacerbation Depression with anxiety Diabetes Diabetic foot ulcer associated with type 2 diabetes mellitus 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) [place] (dyspnea on exertion) Dyslipidemia Elevated troponin Elevated troponin Elevated troponin I level Fall Fracture of head of left humerus HTN (hypertension) Hypercarbia Hypertrophic cardiomyopathy apical variant Hypothyroidism Knee arthropathy Lung cancer Myocardial infarction X4 Paroxysmal A-fib Peripheral neuropathy Proteinuria Thrombocytopenia Thrombocytopenia Vitamin D deficiency Surgical History History of cardioversion MULTIPLE History of cataract surgery History of lung surgery PARTIAL LEFT LOBECTOMY (2013) Hx of brain surgery 2017 S/P FALL/INJURY; SUBSEQUENT BLOOD CLOT EVACUATION Knee joint replacement status S/P cardiac catheterization 7 TOTAL; CARDIAC STENTS X6 S/P hysterectomy S/P tonsillectomy Family History Father , Patient age 82 of stomach cancer. Cancer Heart disease Diabetes Mother , age 93 of heart issues Stroke Hypertension Heart disease Grandmother (Maternal) Coronary heart disease Stroke Family/Other Multiple sclerosis Brother Coronary heart disease Grandfather (Maternal) Heart disease Grandfather (Paternal) Diabetes Aunt Muscular dystrophy Other Gallbladder disease Kidney stones Social History Smoking Status: Never smoker Second Hand Exposure: No; Hx Alcohol Use: No Hx Substance Use: No Preferred Language: Serbian Communication Ability: Effective Comic Illustrator Required: No Beliefs That Will Affect Care: None marital status: Current Living Situation: Spouse 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al status: retired 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: Retired/Disabled - [employer] How many Children do You have: 3 other: 3 children Feels Safe at Home: Yes Assistive Devices: Oxygen - Continuous Review of Systems Review of Systems: Per HPI. Breathing better this afternoon. Physical Exam Physical Exam: She is alert and oriented x3. Mood affect appear normal. She answered all questions appropriately. Obese HEENT: Sclerae are anicteric but the left sclera is injected. Pupils are equal and reactive to light and accommodation. Extraocular movements were intact. Neuro: Cranial nerves intact Lungs: Some pulmonary congestion. No expiratory wheezing. Normal respiratory effort. Cardiac: The rhythm was regular. S1 and S2 were normal. There are no murmurs on examination. The PMI was not markedly displaced on palpation. Abdomen: Obese Extremities: Patient has bilateral radial pulses that are equal in intensity but somewhat diminished. Moderate lower extremity edema. Mild edema both hands. Ecchymosis of the right hand and forearm. Skin: There are no rashes noted on examination today. Results & Data ([facility]) Vital Signs (Past 12 Hours) Vital Signs Temp Pulse Resp BP Pulse Ox 12/11/20 16:00 36.7 C 74 20 141/73 H 100 12/11/20 07:30 36.7 C 72 18 118/49 L 98 Laboratory Results Abnormal Lab Results 12/10/20 12/10/20 12/11/20 16:17 20:42 05:26 WBC 5.78 RBC 3.37 L Hgb 9.2 L Hct 33.0 L MCV 97.9 MCH 27.3 MCHC 27.9 L RDW Std Deviation 69.5 H RDW Coeff of Nhi 19.4 H Plt Count 79 L Immature Gran % (Auto) 0.7 Neut % (Auto) 80.9 Lymph % (Auto) 10.4 Ritchie % (Auto) 7.1 Eos % (Auto) 0.7 Baso % (Auto) 0.2 Neut # (Auto) 4.68 Lymph # (Auto) 0.60 L Ritchie # (Auto) 0.41 Eos # (Auto) 0.04 Baso # (Auto) 0.01 Immature Gran # (Auto) 0.04 H Absolute Nucleated RBC 0.02 H Nucleated RBC % (auto) 0.3 Platelet Estimate Decreased L Polychromasia 1+ Stomatocytes 1+ Sodium Potassium Chloride Carbon Dioxide Anion Gap BUN Creatinine Est Cr Clr Drug Dosing Est GFR ( Amer) Est GFR (Non-Af Amer) BUN/Creatinine Ratio Glucose POC Glucose 146 H Estimat Average Glucose Hemoglobin A1c Calcium Magnesium Iron TIBC Transferrin Transferrin % Sat Ferritin Troponin I NT-Pro-B Natriuret Pep Vitamin B12 Folate TSH Blood Type A Positive Antibody Screen NEGATIVE 12/11/20 12/11/20 12/11/20 05:26 05:26 05:26 WBC RBC Hgb Hct MCV MCH MCHC RDW Std Deviation RDW Coeff of Nhi Plt Count Immature Gran % (Auto) Neut % (Auto) Lymph % (Auto) Ritchie % (Auto) Eos % (Auto) Baso % (Auto) Neut # (Auto) Lymph # (Auto) Ritchie # (Auto) Eos # (Auto) Baso # (Auto) Immature Gran # (Auto) Absolute Nucleated RBC Nucleated RBC % (auto) Platelet Estimate Polychromasia Stomatocytes Sodium 145 Potassium 4.5 Chloride 106 Carbon Dioxide 39 H Anion Gap 0 L BUN 40 H Creatinine 1.75 H Est Cr Clr Drug Dosing 25.8 Est GFR ( Amer) 31.5 Est GFR (Non-Af Amer) 27.2 BUN/Creatinine Ratio 23.0 H Glucose 189 H POC Glucose Estimat Average Glucose 140 Hemoglobin A1c 6.5 H Calcium 7.8 L Magnesium 1.9 Iron TIBC Transferrin Transferrin % Sat Ferritin Troponin I 0.045 NT-Pro-B Natriuret Pep Vitamin B12 Folate TSH 1.600 Blood Type Antibody Screen 12/11/20 12/11/20 12/11/20 08:21 11:17 11:17 WBC RBC Hgb Hct MCV MCH MCHC RDW Std Deviation RDW Coeff of Nhi Plt Count Immature Gran % (Auto) Neut % (Auto) Lymph % (Auto) Ritchie % (Auto) Eos % (Auto) Baso % (Auto) Neut # (Auto) Lymph # (Auto) Ritchie # (Auto) Eos # (Auto) Baso # (Auto) Immature Gran # (Auto) Absolute Nucleated RBC Nucleated RBC % (auto) Platelet Estimate Polychromasia Stomatocytes Sodium Potassium Chloride Carbon Dioxide Anion Gap BUN Creatinine Est Cr Clr Drug Dosing Est GFR ( Amer) Est GFR (Non-Af Amer) BUN/Creatinine Ratio Glucose POC Glucose 194 H Estimat Average Glucose Hemoglobin A1c Calcium Magnesium Iron 101 TIBC 408 Transferrin 297 Transferrin % Sat 24 Ferritin 37.5 Troponin I 0.049 H* NT-Pro-B Natriuret Pep Vitamin B12 Folate TSH Blood Type Antibody Screen 12/11/20 12/11/20 12/11/20 11:17 11:17 12:22 WBC RBC Hgb Hct MCV MCH MCHC RDW Std Deviation RDW Coeff of Nhi Plt Count Immature Gran % (Auto) Neut % (Auto) Lymph % (Auto) Ritchie % (Auto) Eos % (Auto) Baso % (Auto) Neut # (Auto) Lymph # (Auto) Ritchie # (Auto) Eos # (Auto) Baso # (Auto) Immature Gran # (Auto) Absolute Nucleated RBC Nucleated RBC % (auto) Platelet Estimate Polychromasia Stomatocytes Sodium Potassium Chloride Carbon Dioxide Anion Gap BUN Creatinine Est Cr Clr Drug Dosing Est GFR ( Amer) Est GFR (Non-Af Amer) BUN/Creatinine Ratio Glucose POC Glucose 164 H Estimat Average Glucose Hemoglobin A1c Calcium Magnesium Iron TIBC Transferrin Transferrin % Sat Ferritin Troponin I NT-Pro-B Natriuret Pep 04658 H Vitamin B12 708 Folate > 20.00 TSH Blood Type Antibody Screen Diagnostic Findings Scanning of the head, carotid Dopplers, CT scanning of the abdomen and chest x- ray. Some evidence of mild pulmonary vascular congestion and small bilateral pleural effusions. Otherwise unremarkable. 09/19/2020: Ejection fraction of 50%. Mild LVH. Mild right ventricular dysfunction. Moderate left atrial dilation. PG Care Time/CCT Total # of Minutes Spent Total Time Spent with Patient: Total time spent is greater than 50% in coordination of care (as documented) at patient's floor/unit and/or counseling patient: Coding Level of Care Code 89662 Initial Inpt Care Lvl 3 Diagnoses Acute exacerbation of CHF (congestive heart failure) I50.9 Heart failure type: unspecified Coronary artery disease I25.10 Coronary Disease-Associated Artery/Lesion type: [place] artery [place] vs. transplanted heart: [place] heart Associated angina: without angina Afib I48.91 Atrial fibrillation type: unspecified Pacemaker Z95.0 (1) Acute exacerbation of CHF (congestive heart failure) Heart failure type: unspecified Qualified Code(s): I50.9 - Heart failure, unspecified (2) Coronary artery disease Coronary Disease-Associated Artery/Lesion type: [place] artery [place] vs. transplanted heart: [place] heart Associated angina: without angina Qualified Code(s): I25.10 - Atherosclerotic heart disease of [place] coronary artery without angina pectoris (3) Afib Atrial fibrillation type: unspecified Qualified Code(s): I48.91 - Unspecified atrial fibrillation
[2020-12-11] MEDS: AMOXICILLIN 500 MG CAP PO SCH (20:28)
[2020-12-11] MEDS: POTASSIUM CHLORIDE CRTAB 20 MEQ TABCR PO SCH (20:28)
[2020-12-11] MEDS: INSULIN GLARGINE SOLOSTAR 100 UNITS/ML 3 ML PEN SC SCH (22:27)
[2020-12-12 00:01] LABS: Appearance Urine Clear (Clear); Bacteria Urine Automated Negative (Negative); Bilirubin Urine Negative (Negative); Blood Urine 3+ (Negative); Color Urine Yellow; Glucose Urine UA Negative (Negative); Ketones Urine Negative (Negative); Leukocyte Esterase Urine 1+ (Negative); Nitrite Urine Negative (Negative); Protein Urine Negative (Negative); RBC Urine Automated >30 /hpf (0-4); Urobilinogen Urine Negative (Negative)
[2020-12-12 06:15] LABS: Hemoglobin 8.8 g/dL (12.0-16.0); Mean Corpuscular Hemoglobin 27.4 pg (25-34); Mean Corpuscular Hgb Conc 28.4 g/dL (32-36); Mean Corpuscular Volume 96.6 fL (80-100); Mean Platelet Volume 12.3 fL (7.4-10.4); Nucleated RBC # (auto) 0.02 K/uL (0-0); Nucleated RBC % (auto) 0.6 %; Platelet Count 79 K/uL (130-400); RDW Coefficient of Variation 19.3 % (11.5-14.5); RDW Standard Deviation 67.5 fL (36.4-46.3); Red Blood Count 3.21 M/uL (4.2-5.4); White Blood Count 3.87 K/uL (4.8-10.8)
[2020-12-12 06:18] LABS: Basophilic Stippling 1+; Basophils # (auto) 0.01 K/uL (0-0.2); Basophils % (auto) 0.3 %; Eosinophils # (auto) 0.06 K/uL (0-0.5); Eosinophils % (auto) 1.6 %; Giant Platelets 1+; Immature Granulocytes # (auto) 0.06 K/uL (0.00-0.02); Immature Granulocytes % (auto) 1.6 %; Lymphocytes # (auto) 0.81 K/uL (1.2-3.4); Lymphocytes % (auto) 20.9 %; Monocytes # (auto) 0.42 K/uL (0.11-0.59); Monocytes % (auto) 10.9 %; Neutrophils # (auto) 2.51 K/uL (1.4-6.5); Neutrophils % (auto) 64.7 %; Stomatocytes 1+
[2020-12-12 06:21] LABS: BUN Creatinine Ratio 24.2 (10-20); Calcium 8.3 mg/dl (8.5-10.1); Creatinine Clr Calc Pharmacy 25.5 ml/min; Est GFR (African American) 31.1 ml/min; Est GFR (Non-African American) 26.8 ml/min; Magnesium 1.8 mg/dl (1.8-2.4); Potassium 4.6 mmol/L (3.5-5.1)
[2020-12-12] MEDS: LEVOTHYROXINE SODIUM 25 MCG TABLET PO SCH (06:26)
--- NOTE | 2020-12-12 07:56 | Urology Progress Note ---
Date of Service December 12, 2020 Assessment & Plan (1) Hematuria: (2) Cystitis: 80 year-old female patient, with multiple comorbidities, admitted with blood per rectum with heme positive stool, found to have hematuria. -Plan of care reviewed with Dr. Figueroa. -Patient afebrile. -Labs reviewed - white count 3.87, hemoglobin 8.8 (previously 9.2), creatinine stable at 1.77. -Urine culture pending, okay to continue empiric antibiotic therapy. -Order placed for urine cytology. -Per discussion with nursing this morning, patient's urine was clear yellow. -No acute intervention indicated at this time. -Recommend completing hematuria work-up with outpatient cystoscopy. -Okay to restart Eliquis when primary team deems medically stable to resume. -Continue with supportive care and close monitoring. -Will continue to follow while inpatient. Admission and Anticipated Discharge Date Admission Date: December 10, 2020 Subjective Patient seen and examined this AM. She is pleasantly confused this morning, oriented to person and did know it was November. She currently denies flank or abdominal pain. Did discuss urine color with her nurse this morning who stated she recently voided and it was clear yellow. She denies dysuria or further hematuria. Eliquis is currently on hold. Bladder scan last evening was 40 ml. Denies fevers or chills. Denies nausea or vomiting. Chart review: Afebrile Wbc 3.87 Hgb 8.8 (previously 9.2) Creatinine 1.77 (previously 1.75) Urinalysis +1 leukocytes, 10-30 wbc, >30 rbc, negative bacteria, negative nitrates. Urine culture pending. Patient started on empiric Amoxicillin yesterday. Denies additional urologic concerns today. Review of Systems Constitutional: as per Subjective / HPI; no fever and no chills Gastrointestinal: as per Subjective / HPI; no nausea and no vomiting Genitourinary: as per Subjective / HPI Neurologic: as per Subjective / HPI Physical Exam Constitutional: well developed, well nourished, cooperative and comfortable; no acute distress Respiratory: normal respiratory effort and able to speak in complete sentences; no respiratory distress and no audible wheezes On 3 L oxygen via nasal cannula Cardiovascular: Extremities: + edema (+3 pitting edema to b/l lower extremities. ); no calf tenderness Gastrointestinal (Abdomen): Inspection/Auscultation: abdomen normal to inspection and + abdomen distended Percussion/Palpation: abdomen soft; abdomen nontender and no guarding Psychiatric: Orientation: alert, oriented to person, oriented to time and cooperative; + not oriented to place Affect: euthymic affect Genitourinary: no CVA tenderness Results & Data ([facility]) Vital Signs (Past 12 Hours) Vital Signs Temp Pulse Resp BP Pulse Ox 12/11/20 23:07 36.8 C 60 17 119/78 95 PG Care Time/CCT Total # of Minutes Spent Total Time Spent with Patient: Total time spent is greater than 50% in coordination of care (as documented) at patient's floor/unit and/or counseling patient: Coding Level of Care Code 70229 Subseq Hosp Care Lvl 2 Diagnoses Hematuria R31.0 Hematuria type: gross Cystitis N30.90 (1) Hematuria Hematuria type: gross Qualified Code(s): R31.0 - Gross hematuria
[2020-12-12] MEDS: FUROSEMIDE 40 MG in SYRINGE 0 ML IV SCH ×2 (08:40→19:34)
[2020-12-12] MEDS: ESCITALOPRAM OXALATE 10 MG TAB PO SCH (08:41)
[2020-12-12] MEDS: SENNA 8.6 MG TAB PO PRN (08:41)
[2020-12-12] MEDS: predniSONE 2.5 MG TAB PO SCH (08:42)
[2020-12-12] MEDS: AMOXICILLIN 500 MG CAP PO SCH ×2 (08:43→21:12)
[2020-12-12] MEDS: POTASSIUM CHLORIDE CRTAB 20 MEQ TABCR PO SCH ×2 (08:43→21:15)
[2020-12-12] MEDS: THIAMINE HCL 100 MG TAB PO SCH (08:43)
[2020-12-12] MEDS: METOPROLOL TARTRATE 25 MG TAB PO SCH ×2 (08:43→21:15)
[2020-12-12] MEDS: FAMOTIDINE 20 MG TAB PO SCH ×2 (08:44→21:13)
[2020-12-12] MEDS: busPIRone 5 MG TAB PO SCH ×2 (08:44→21:13)
[2020-12-12] MEDS ORDERED: ERGOCALCIFEROL 50,000 UNITS 1250 MCG CAP PO SCH (09:00)
[2020-12-12] MEDS: INSULIN ASPART 100 UNITS/ML 3 ML PEN SC SCH ×4 (09:12→21:15)
--- NOTE | 2020-12-12 09:15 | Hospitalist Progress Note ---
Date of Service December 12, 2020 Assessment & Plan (1) Blood per rectum: As per HPI: HEME positive in ER. Seen earlier that AM with reported blood from urethra, later in day again for blood in stool Baseline hgb ~10, 9.8 on admission * GI Consulted * -- no plans for scope and discontinued bowel prep at this time * -- will start oral iron supplementation (iron was 38 in September 2020, repeat 101 but did get blood in past month). B12 wnl 708 /folate wnl >20 * Urology consulted for hematuria (also noted evidence of cystitis/thickened bladder wall on CTAP) UA RBC >30 * -->no further bleeding reported. cytology pending, plan for outpt cysto * -->UA appeared infected and prior enterocc. species, urine cx pending --> started Amoxicillin (renally dosed) given burning with urination as well. * -->Please note, however, when d/c from ER AM 12/10 was give rx for cefdinir and unclear if patient actually got a dose or not which could make current cx falsely negative (called and left voicemail to call back for clarification) * -->Prior cx from October was treated with Amoxicillin at [facility] from 10/30- 11/04 * Hgb 9.2 on repeat but down to 8.8 on AM labs (note patient volume up as well though so suspect true value slightly higher) -- states shortness of breath actually improved * Eliquis held initially giving bleeding but resumed today 12/12 * --> LOWERED TO 2.5MG PO BID DOSING after discussion with nephrology (age almost 81 this January) given bleeding * Will monitor for any increased bleeding now that Eliquis resumed Continue to hold Plavix -- plt low 79 and could drop further with amox Patient currently pancytopenic -- asking heme/onc to review labs to see if concerns given history of large B-cell lymphoma however CAT scan of abdomen without any evidence of adenopathy --no splenomegaly on imaging to suspect sequestration, no liver dz -- abn neutrophil count not at level for neupogen. recs to continue to monitor counts, likely myelosuppression. if continues to falter, may need to consider bone marrow Monitor labs in AM (2) CHF (congestive heart failure): Acute on chronic heart failure with reduced ejection fraction * Most recent echocardiogram from September 19, 2020 which showed left ventricular systolic function borderline reduced at 45-50%, distal septal hypokinesis. Difficult to exclude additional regional wall motion abnormalities. There is mild concentric left ventricular hypertrophy. The right ventricle is mildly dilated. The right ventricular systolic function is mildly reduced. The left atrium is moderately dilated. The right atrium is mild to moderately dilated. There is mild mitral annular calcification. Right ventricular systolic pressure is elevated 40 to 50 mmHg. Compared to echo from December 2019, minimal change Admitted in September 2020 for acute on chronic systolic heart failure and required Lasix 80 mg IV daily and was decreased to Lasix 80 mg p.o. twice daily and discharged on 40 mg twice daily due to hyper natremia [employer] maintained on Lasix 40 mg by mouth ONCE daily and states that her typical weight is around 200 pounds give or take 10 pounds however it does not appear that she checks her weight regularly at home and has not been followed by heart failure clinic in the past which is recommended at discharge. Suspect that her dry weight is actually more likely closer to 170-180 pounds but will assess as diuresis occurs We will also interrogate her pacemaker Noted that on 09/26/2020 she was doing well with continued diuresis at a weight of 81.8 kg and discharged at 79.9kg on 09/30/20 Admission she admitted to increased lower extremity edema to her thighs, shortness of breath, decreased appetite and difficulty laying flat BNP was obtained at that time and found to be 10,168 12/12 * WT 91.5kg (standing scale on 12/12) --previously 93.4 kg when she was inpatient on November 26 * continue standing scale weights * I&Os * CXR with re-demonstration of stable cardiomegaly and possible pulmonary edema. Interval worsening/redistribution bilateral pleural effusion. * troponin 0.045-->0.049--> 0.047 --suspect demand secondary to volume overload * Maintain heart healthy 1500 mL fluid restriction diet * Cardiology also consultation , continue diuretics * Discussed with CHF clinic and will place formal consultation as patient would benefit from close monitoring of her weights and adjustment of diuretics given repeat hospitalizations for CHF * Continue metoprolol 25 mg twice daily * Repeat echocardiogram with left ventricular systolic function unchanged from previous : EF 45 to 50%, severely hypokinetic septum, right ventricle mildly dilated, right ventricular systolic function mildly reduced, left atrium mildly dilated, moderate mitral annular calcification, mild to moderate mitral regurgitation * Creatinine remains essentially unchanged with diuresis * --already got her 40mg IV this evening and BP able to tolerate additional dose but will increase to 60mg IV BID starting AM 12/13 and monitor response (of note, she tolerated 80mg IV BID in September 2020) * --> Possible benefit from addition of spironolactone? to help with reported hyponatremia from last time which required her typical dose to be decreased to 40 mg p.o. twice daily and her elevated RVSP 52mmHg on prior complete ECHO December 2019 * Continue to monitor (3) Coronary artery disease: * Plavix was recently restarted on previous admission, is not on ASA for primary prevention * Extensive cardiac history including stents * Cardiology okay with continuing to hold Plavix (hx AWILDA 2017) * Metoprolol 25 mg twice daily * No chest pain reported * Minimal troponin elevation secondary to demand as above (4) Afib: * Paroxysmal, history ablation with DDD pacemaker * rate controlled as above with metoprolol twice daily * Eliquis on hold as above but will 2.5 mg by mouth twice daily today as above Can add Lopressor 5 mg IV prn if rate becomes elevated without acute blood loss but would need moved to monitored bed (5) Polymyalgia rheumatica: * Continue tylenol and prednisone 2.5 mg daily (6) Shortness of breath: * Patient with chronic respiratory failure on 3 L via nasal cannula however suspect reported shortness of breath related to CHF exacerbation as above * Suspect improvement with diuresis as outlined * CXR obtained * --IMPRESSION: Re-demonstration of stable cardiomegaly and possible pulmonary edema. Interval worsening/redistribution bilateral pleural effusion. (compared to exam November 24, 2020) * Continued on her Combivent inhaler * Reports improved shortness of breath today96% on her usual 3 L * Instructed to utilize CPAP at all times with napping to prevent CO2 retention given previous history in the past * Continue to monitor (7) Diabetes: * Sliding scale aspart 20 correction factor 1:15 ratio. * A1c 6.5, well controlled pharmacy for glycemic management while managing the above problems (8) Hyphema of left eye: Patient reports she poked herself in her left eye a week ago while cleaning her eye - does not involve the iris - vision to eye intact - no pain Dispo: continued inpatient stay low threshold for moving to med-tele if becomes HD unstable (9) Pancytopenia: will have path do peripheral smear +/- heme/onc as above Admission and Anticipated Discharge Date Admission Date: December 10, 2020 Supervising Physician Co-Signing Physician Notes PA Supervision Note: I did not personally see or examine the patient today, but I verified all [place] points of JEFE Jansen's assessment and plan with the following exceptions/additions: None Subjective Eval this morning. Did not get much sleep but tired now. Breathing improved as well as shortness of breath. Will continue diuresis. She states no further bleeding in urine or stool. She does note some burning with urination at times but denies frequency. Resuming eliquis but at reduced dose after discussion with Dr. Sherman. Monitoring urine cx and maintained on amoxicillin. No fever, chills, chest pain, abdominal pain, nausea, vomiting at this time. Attempted to contact for update/questions -- left voicemail for return call this evening. Review of Systems Review of Systems: All systems reviewed & are unremarkable except as noted in HPI & below Physical Exam Constitutional: well developed, + ill appearing (chronically ill appearing), cooperative and comfortable (sleeping upon entry to room); no acute distress Eyes: + anicteric sclerae and PERRL ENMT: Ears: no external ear abnormality Nose: no external nose abnormality Neck: normal visual inspection and trachea midline Respiratory: normal respiratory effort and able to speak in complete sentences (answering short phrases today due to reported fatigue); no respiratory distress, no labored breathing, does not use accessory muscles and no audible wheezes Auscultation: + diminished lung sounds (bases bilaterally) and + wheezes (posterior lung edmonds, bibasilar crackles) on 3L NC Cardiovascular: Rate/Rhythm: regular rate and regular rhythm Heart Sounds: no murmur Vessels: no JVD (unable to assess) Extremities: + edema (+1 pitting edema B/L LE up to thighs, also to b/l hands); no calf tenderness Chest (Breasts): Additional Comments: L port Gastrointestinal (Abdomen): Inspection/Auscultation: abdomen normal to inspection, + abdomen distended (Obese) and normal bowel sounds Percussion/Palpation: abdomen soft; abdomen nontender and no guarding Skin: large area of ecchymosis R forearm and smaller area to R hand Neurologic: moves all extremities and awake Psychiatric: Orientation: alert, oriented x 3 ([place], but fatigue, pleasantly confused at times) and cooperative Affect: euthymic affect Genitourinary: no CVA tenderness mild erythema , no discharge noted Results & Data Results & Data ([facility]) Vital Signs (Past 12 Hours) Vital Signs Temp Pulse Resp BP Pulse Ox 12/12/20 07:56 36.5 C 69 18 147/71 H 94 12/11/20 23:07 36.8 C 60 17 119/78 95 Laboratory Results 12/12/20 12/12/20 12/12/20 Range/Units 08:17 05:09 05:09 WBC 3.87 L (4.8-10.8) K/uL RBC 3.21 L (4.2-5.4) M/uL Hgb 8.8 L (12.0-16.0) g/dL Hct 31.0 L (37-47) % MCV 96.6 (80-100) fL MCH 27.4 (25-34) pg MCHC 28.4 L (32-36) g/dL RDW Std Deviation 67.5 H (36.4-46.3) fL RDW Coeff of Nhi 19.3 H (11.5-14.5) % Plt Count 79 L (130-400) K/uL MPV 12.3 H (7.4-10.4) fL Immature Gran % (Auto) 1.6 % Neut % (Auto) 64.7 % Lymph % (Auto) 20.9 % [place] % (Auto) 10.9 % Eos % (Auto) 1.6 % Baso % (Auto) 0.3 % Neut # (Auto) 2.51 (1.4-6.5) K/uL Lymph # (Auto) 0.81 L (1.2-3.4) K/uL [place] # (Auto) 0.42 (0.11-0.59) K/uL Eos # (Auto) 0.06 (0-0.5) K/uL Baso # (Auto) 0.01 (0-0.2) K/uL Immature Gran # (Auto) 0.06 H (0.00-0.02) K/uL Absolute Nucleated RBC 0.02 H (0-0) K/uL Nucleated RBC % (auto) 0.6 % Giant Platelets 1+ Basophilic Stippling 1+ Stomatocytes 1+ Sodium 145 (136-145) mmol/L Potassium 4.6 (3.5-5.1) mmol/L Chloride 106 (98-107) mmol/L Carbon Dioxide 39 H (21-32) mmol/L Anion Gap 0 L (3-11) BUN 43 H (7-18) mg/dl Creatinine 1.77 H (0.6-1.2) mg/dl Est Cr Clr Drug Dosing 25.5 ml/min Est GFR ( Amer) 31.1 ml/min Est GFR (Non-Af Amer) 26.8 ml/min BUN/Creatinine Ratio 24.2 H (10-20) Glucose 103 H (70-99) mg/dl POC Glucose 113 H (70-99) mg/dl Calcium 8.3 L (8.5-10.1) mg/dl Magnesium 1.8 (1.8-2.4) mg/dl Iron (35-150) mcg/dl TIBC (250-450) mcg/dl Transferrin (200-360) mg/dl Transferrin % Sat (15-50) % Ferritin (8-388) ng/ml Troponin I (0-0.045) ng/ml NT-Pro-B Natriuret Pep (0-1800) pg/ml Vitamin B1 Vitamin B12 (193-986) pg/ml Folate (>5.38) ng/ml Urine Color Urine Appearance (Clear) Urine pH (4.5-7.5) Ur Specific [place] (1.000-1.030) Urine Protein (Negative) Urine Glucose (UA) (Negative) Urine Ketones (Negative) Urine Blood (Negative) Urine Nitrite (Negative) Urine Bilirubin (Negative) Urine Urobilinogen (Negative) Ur Leukocyte Esterase (Negative) Urine WBC (Auto) (0-5) /hpf Urine RBC (Auto) (0-4) /hpf U Hyaline Cast (Auto) (0-5) /lpf U Epithel Cells (Auto) (0-5) /lpf Urine Bacteria (Auto) (Negative) 12/11/20 12/11/20 12/11/20 Range/Units 23:03 21:29 17:40 WBC (4.8-10.8) K/uL RBC (4.2-5.4) M/uL Hgb (12.0-16.0) g/dL Hct (37-47) % MCV (80-100) fL MCH (25-34) pg MCHC (32-36) g/dL RDW Std Deviation (36.4-46.3) fL RDW Coeff of Nhi (11.5-14.5) % Plt Count (130-400) K/uL MPV (7.4-10.4) fL Immature Gran % (Auto) % Neut % (Auto) % Lymph % (Auto) % [place] % (Auto) % Eos % (Auto) % Baso % (Auto) % Neut # (Auto) (1.4-6.5) K/uL Lymph # (Auto) (1.2-3.4) K/uL [place] # (Auto) (0.11-0.59) K/uL Eos # (Auto) (0-0.5) K/uL Baso # (Auto) (0-0.2) K/uL Immature Gran # (Auto) (0.00-0.02) K/uL Absolute Nucleated RBC (0-0) K/uL Nucleated RBC % (auto) % Giant Platelets Basophilic Stippling Stomatocytes Sodium (136-145) mmol/L Potassium (3.5-5.1) mmol/L Chloride (98-107) mmol/L Carbon Dioxide (21-32) mmol/L Anion Gap (3-11) BUN (7-18) mg/dl Creatinine (0.6-1.2) mg/dl Est Cr Clr Drug Dosing ml/min Est GFR ( Amer) ml/min Est GFR (Non-Af Amer) ml/min BUN/Creatinine Ratio (10-20) Glucose (70-99) mg/dl POC Glucose 158 H (70-99) mg/dl Calcium (8.5-10.1) mg/dl Magnesium (1.8-2.4) mg/dl Iron (35-150) mcg/dl TIBC (250-450) mcg/dl Transferrin (200-360) mg/dl Transferrin % Sat (15-50) % Ferritin (8-388) ng/ml Troponin I 0.047 H* (0-0.045) ng/ml NT-Pro-B Natriuret Pep (0-1800) pg/ml Vitamin B1 Vitamin B12 (193-986) pg/ml Folate (>5.38) ng/ml Urine Color Yellow Urine Appearance Clear (Clear) Urine pH 5.0 (4.5-7.5) Ur Specific [place] 1.010 (1.000-1.030) Urine Protein Negative (Negative) Urine Glucose (UA) Negative (Negative) Urine Ketones Negative (Negative) Urine Blood 3+ H (Negative) Urine Nitrite Negative (Negative) Urine Bilirubin Negative (Negative) Urine Urobilinogen Negative (Negative) Ur Leukocyte Esterase 1+ H (Negative) Urine WBC (Auto) 10-30 H (0-5) /hpf Urine RBC (Auto) >30 H (0-4) /hpf U Hyaline Cast (Auto) 1-5 (0-5) /lpf U Epithel Cells (Auto) 10-20 H (0-5) /lpf Urine Bacteria (Auto) Negative (Negative) 12/11/20 12/11/20 12/11/20 Range/Units 12:22 11:17 11:17 WBC (4.8-10.8) K/uL RBC (4.2-5.4) M/uL Hgb (12.0-16.0) g/dL Hct (37-47) % MCV (80-100) fL MCH (25-34) pg MCHC (32-36) g/dL RDW Std Deviation (36.4-46.3) fL RDW Coeff of Nhi (11.5-14.5) % Plt Count (130-400) K/uL MPV (7.4-10.4) fL Immature Gran % (Auto) % Neut % (Auto) % Lymph % (Auto) % [place] % (Auto) % Eos % (Auto) % Baso % (Auto) % Neut # (Auto) (1.4-6.5) K/uL Lymph # (Auto) (1.2-3.4) K/uL [place] # (Auto) (0.11-0.59) K/uL Eos # (Auto) (0-0.5) K/uL Baso # (Auto) (0-0.2) K/uL Immature Gran # (Auto) (0.00-0.02) K/uL Absolute Nucleated RBC (0-0) K/uL Nucleated RBC % (auto) % Giant Platelets Basophilic Stippling Stomatocytes Sodium (136-145) mmol/L Potassium (3.5-5.1) mmol/L Chloride (98-107) mmol/L Carbon Dioxide (21-32) mmol/L Anion Gap (3-11) BUN (7-18) mg/dl Creatinine (0.6-1.2) mg/dl Est Cr Clr Drug Dosing ml/min Est GFR ( Amer) ml/min Est GFR (Non-Af Amer) ml/min BUN/Creatinine Ratio (10-20) Glucose (70-99) mg/dl POC Glucose 164 H (70-99) mg/dl Calcium (8.5-10.1) mg/dl Magnesium (1.8-2.4) mg/dl Iron (35-150) mcg/dl TIBC (250-450) mcg/dl Transferrin (200-360) mg/dl Transferrin % Sat (15-50) % Ferritin (8-388) ng/ml Troponin I (0-0.045) ng/ml NT-Pro-B Natriuret Pep 20551 H (0-1800) pg/ml Vitamin B1 Pending Vitamin B12 (193-986) pg/ml Folate (>5.38) ng/ml Urine Color Urine Appearance (Clear) Urine pH (4.5-7.5) Ur Specific [place] (1.000-1.030) Urine Protein (Negative) Urine Glucose (UA) (Negative) Urine Ketones (Negative) Urine Blood (Negative) Urine Nitrite (Negative) Urine Bilirubin (Negative) Urine Urobilinogen (Negative) Ur Leukocyte Esterase (Negative) Urine WBC (Auto) (0-5) /hpf Urine RBC (Auto) (0-4) /hpf U Hyaline Cast (Auto) (0-5) /lpf U Epithel Cells (Auto) (0-5) /lpf Urine Bacteria (Auto) (Negative) 12/11/20 12/11/20 12/11/20 Range/Units 11:17 11:17 11:17 WBC (4.8-10.8) K/uL RBC (4.2-5.4) M/uL Hgb (12.0-16.0) g/dL Hct (37-47) % MCV (80-100) fL MCH (25-34) pg MCHC (32-36) g/dL RDW Std Deviation (36.4-46.3) fL RDW Coeff of [place]hi (11.5-14.5) % Plt Count (130-400) K/uL MPV (7.4-10.4) fL Immature Gran % (Auto) % Neut % (Auto) % Lymph % (Auto) % [place] % (Auto) % Eos % (Auto) % Baso % (Auto) % Neut # (Auto) (1.4-6.5) K/uL Lymph # (Auto) (1.2-3.4) K/uL [place] # (Auto) (0.11-0.59) K/uL Eos # (Auto) (0-0.5) K/uL Baso # (Auto) (0-0.2) K/uL Immature Gran # (Auto) (0.00-0.02) K/uL Absolute Nucleated RBC (0-0) K/uL Nucleated RBC % (auto) % Giant Platelets Basophilic Stippling Stomatocytes Sodium (136-145) mmol/L Potassium (3.5-5.1) mmol/L Chloride (98-107) mmol/L Carbon Dioxide (21-32) mmol/L Anion Gap (3-11) BUN (7-18) mg/dl Creatinine (0.6-1.2) mg/dl Est Cr Clr Drug Dosing ml/min Est GFR ( Amer) ml/min Est GFR (Non-Af Amer) ml/min BUN/Creatinine Ratio (10-20) Glucose (70-99) mg/dl POC Glucose (70-99) mg/dl Calcium (8.5-10.1) mg/dl Magnesium (1.8-2.4) mg/dl Iron 101 (35-150) mcg/dl TIBC 408 (250-450) mcg/dl Transferrin 297 (200-360) mg/dl Transferrin % Sat 24 (15-50) % Ferritin 37.5 (8-388) ng/ml Troponin I 0.049 H* (0-0.045) ng/ml NT-Pro-B Natriuret Pep (0-1800) pg/ml Vitamin B1 Vitamin B12 708 (193-986) pg/ml Folate > 20.00 (>5.38) ng/ml Urine Color Urine Appearance (Clear) Urine pH (4.5-7.5) Ur Specific [place] (1.000-1.030) Urine Protein (Negative) Urine Glucose (UA) (Negative) Urine Ketones (Negative) Urine Blood (Negative) Urine Nitrite (Negative) Urine Bilirubin (Negative) Urine Urobilinogen (Negative) Ur Leukocyte Esterase (Negative) Urine WBC (Auto) (0-5) /hpf Urine RBC (Auto) (0-4) /hpf U Hyaline Cast (Auto) (0-5) /lpf U Epithel Cells (Auto) (0-5) /lpf Urine Bacteria (Auto) (Negative) Diagnostic Findings Head CT 12/10/20 13:37 CT SCAN OF THE BRAIN WITHOUT IV CONTRAST CLINICAL HISTORY: Fall. COMPARISON STUDY: CT of the brain dated 08/08/2020. TECHNIQUE: Unenhanced axial CT scan of the brain is performed from the vertex to the skull base. A dose lowering technique was utilized adhering to the principles of ALARA. CT DOSE: 765.09 mGycm FINDINGS: Brain parenchyma: Dural thickening and calcification due to craniotomy site is likely on a postoperative basis. There are age-related involutional changes noting minimal microangiopathic change. There is no hemorrhage, mass effect, or evidence of acute territorial ischemia by CT criteria. Finn-white matter differentiation is preserved. No extra-axial fluid collection is seen. Prominence of the frontal extra-axial spaces is unchanged from previous. Ventricles, sulci, cisterns: Prominent secondary to involutional change. Intracranial vasculature: There is atherosclerotic calcification of the cavernous carotid and vertebral arteries. Calvarium: The skeletal structures are osteopenic. No depressed calvarial fracture is identified. There is postoperative change from right-sided cranioto my. Sinuses and mastoids: The visualized paranasal sinuses are clear. The mastoid air cells are well pneumatized. Orbits: The bony orbits are grossly intact. There are bilateral ocular lens implants. IMPRESSION: 1. There is no hemorrhage, mass effect, or evidence of acute territorial ischemia by CT criteria. 2. Postoperative and age-related changes as above. ACT 112: Negative or not required by law. Electronically signed by: Eliceo Hart M.D. 12/10/2020 2:13 PM Chest X-Ray 12/11/20 08:13 XR chest 1V portable CLINICAL HISTORY: sob COMPARISON STUDY: November 24, 2020 FINDINGS: No pneumothorax. Interval silhouetting of the left hemidiaphragm which could represent small to moderate left pleural effusion and possible associated with atelectasis or infiltrate within left lower lung. Minimal blunting of the right costophrenic angle could represent trace right pleural effusion. Diffuse prominence of pulmonary interstitium is again seen and unchanged since prior. Postoperative changes are again seen within left upper lung. Cardiomediastinal silhouette is mildly enlarged since stable since prior. Aorta is calcified. Pulmonary vasculature is indistinct.. Osseous structures: Degenerative changes of the spine. Deformity of the left shoulder. Stable position of left-sided Chemo-Port and right-sided dual-lead pacemaker. IMPRESSION: 1. Redemonstration of stable cardiomegaly and possible pulmonary edema. Interval worsening/redistribution bilateral pleural effusion. ACT 112: Negative or not required by law. The above report was generated using voice recognition software. It may contain grammatical, syntax or spelling errors. Electronically signed by: Jennifer Hdye DO 12/11/2020 1:34 PM Carotid Doppler Study 12/11/20 13:38 ULTRASOUND OF THE CAROTID ARTERIES CLINICAL HISTORY: Frequent falls. COMPARISON STUDY: No priors. TECHNIQUE: Real-time, grayscale, and color Doppler sonography of the carotid arteries is performed. Images are reviewed in the transverse and longitudinal planes. FINDINGS: Blood pressures were not obtained due to upper extremity edema. The carotid arteries are patent bilaterally and demonstrate antegrade flow. There is moderate echogenic shadowing atherosclerotic plaque seen bilaterally, right greater than left. Normal doppler arterial waveforms are seen throughout. Velocity measurements are listed below. Common carotid peak systolic velocity (cm/sec): RIGHT: 76 LEFT: 52 ICA proximal peak systolic velocity (cm/sec): RIGHT: 89 LEFT: 48 ICA mid peak systolic velocity (cm/sec): RIGHT: 80 LEFT: 69 ICA distal peak systolic velocity (cm/sec): RIGHT: 73 LEFT: 78 ICA/CC peak systolic ratio: RIGHT: 1.1 LEFT: 1.5 Antegrade flow was shown in the vertebral arteries. The external carotid arteries are patent. IMPRESSION: 1. Atherosclerotic plaque with no sonographic evidence of hemodynamically significant stenosis in the right or left carotid arterial system by velocity criteria. 2. Antegrade flow is shown in the vertebral arteries. ACT 112: Negative or not required by law. Electronically signed by: Eliceo Hart M.D. 12/11/2020 3:05 PM PG Care Time/CCT Total # of Minutes Spent Total Time Spent with Patient: Total time spent is greater than 50% in coordination of care (as documented) at patient's floor/unit and/or counseling patient: Coding Level of Care Code 89176 Subseq Hosp Care Lvl 3 Diagnoses Blood per rectum K62.5 CHF (congestive heart failure) I50.9 Heart failure chronicity: chronic Heart failure type: unspecified Coronary artery disease I25.10 Associated angina: without angina Coronary Disease-Associated Artery/Lesion type: [place] artery [place] vs. transplanted heart: [place] heart Afib I48.91 Atrial fibrillation type: unspecified Polymyalgia rheumatica M35.3 Shortness of breath R06.02 Diabetes E11.9; Z79.4 Diabetes mellitus complication status: without complication Diabetes mellitus correction insulin use: with long term care social worker use Diabetes mellitus type: type 2 Hyphema of left eye H21.02 Pancytopenia D61.818 (1) Diabetes Diabetes mellitus complication status: without complication Diabetes mellitus long term care social worker insulin use: with correction use Diabetes mellitus type: type 2 Qualified Code(s): E11.9 - Type 2 diabetes mellitus without complications; 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 transplanted heart: [place] heart Qualified Code(s): I25.10 - Atherosclerotic heart disease of [place] coronary artery without angina pectoris (3) CHF (congestive heart failure) Heart failure chronicity: chronic Heart failure type: unspecified Qualified Code(s): I50.9 - Heart failure, unspecified (4) Afib Atrial fibrillation type: unspecified Qualified Code(s): I48.91 - Unspecified atrial fibrillation
--- NOTE | 2020-12-12 09:39 | Pharmacy Report ---
Pharmacy Glycemic Short Note 2 - Date of Service December 12, 2020 - Glycemic Short BSG Results (Last 24 hours): 12/11/20 12/11/20 12/12/20 12:22 21:29 05:09 Glucose 103 H POC Glucose 164 H 158 H 12/12/20 08:17 Glucose POC Glucose 113 H OUTPATIENT ANTIDIABETIC REGIMEN: * humalog 15 units TID * 6.7% 11/25/20 ASSESSMENT: * Patient initiated on a low dose basal/bolus regimen last evening. BSGs trended down nicely with the patient receiving a total of 15 units of insulin yesterday, 10 of which were basal. * Patient was continued on home low dos prednisone and is tolerating a diet. PLAN FOR INPATIENT GLYCEMIC CONTROL: * Hold outpatient oral diabetes medications * Basal insulin * Lantus 0,5, or 10 units SQ HS based on BSG- See MAR for details * Bolus insulin * NovoLog per scale ACHS or Q6hrs while NPO * Goal Range: Low 110 mg/dL - High 140 mg/dL * Correction Factor: 35 mg/dL/unit * Nutritional / Prandial insulin per carb ratio of 1 unit per 12 grams CHO consumed
[2020-12-12] MEDS ORDERED: acetaZOLAMIDE 250 MG TAB PO ONE (09:42)
[2020-12-12] MEDS ORDERED: APIXABAN 5 MG TABLET PO SCH (10:15)
[2020-12-12 10:17] LABS: INR 1.1 (0.9-1.1); Prothrombin Time 10.7 Seconds (9.0-12.0)
--- NOTE | 2020-12-12 11:22 | XCELERA ---
[id number]
--- NOTE | 2020-12-12 11:35 | Electrocardiogram Report ---
Test Reason : Blood Pressure : / mmHG Vent. Rate : 071 BPM Atrial Rate : 071 BPM P-R Int : 186 ms QRS Dur : 170 ms QT Int : 464 ms P-R-T Axes : 058 -77 110 degrees QTc Int : 504 ms AV dual-paced rhythm with occasional Premature ventricular complexes Abnormal ECG When compared with ECG of 24-NOV-2020 11:34, There is now atrial pacing Confirmed by Mo Manuel ([id number]) on 12/12/2020 11:34:57 AM Referred By: REFERRED SELF Confirmed By:Felix Manuel
[2020-12-12] MEDS: APIXABAN 2.5 MG TAB PO SCH ×2 (11:43→21:12)
--- NOTE | 2020-12-12 13:51 | Cardiology Progress Note ---
Date of Service December 12, 2020 Assessment & Plan (1) Acute exacerbation of CHF (congestive heart failure): 2. Coronary artery disease-- status post remote multivessel stenting and RCA DESx 2 (06/2018) 3. Low normal LV function 4. Permanent atrial fibrillationpost AV clarisse ablation and dual-chamber pacemaker 5. AnemiaGI versus bleeding 6. Chronic renal insufficiency 7. Minimally elevated troponin 8. Thrombocytopenia Well perfused but residual congestion on exam Renal function stable LV function unchanged on echo Okay with continued IV diuresis. Accurate I's and O's, daily weights if possible Agree with holding clopidogrel Can hold Eliquis as needed if concern for continued bleeding. Continue current beta-suraj Admission and Anticipated Discharge Date Admission Date: December 10, 2020 Subjective Patient very sleepy this morning. Gives only 1 word answers. Denied any chest pain. Denies significant shortness of breath. Review of Systems Review of Systems: All systems reviewed & are unremarkable except as noted in HPI & below Physical Exam Physical Exam: HEENT: Sclerae are anicteric Neuro: Sleepy, does not open eyes Lungs: Clear anteriorly, few crackles at bases Cardiac: The rhythm was regular. S1 and S2 were normal. No murmurs Abdomen: Obese Extremities: Normal radial pulses. 1+ lower extremity edema. Mild edema both hands. Ecchymosis of the right hand and forearm. Skin: There are no rashes noted on examination today. Results & Data ([facility]) Vital Signs (Past 12 Hours) Vital Signs Temp Pulse Resp BP Pulse Ox 12/12/20 07:56 97.7 F 69 18 147/71 H 94 PG Care Time/CCT Total # of Minutes Spent Total Time Spent with Patient: Total time spent is greater than 50% in coordination of care (as documented) at patient's floor/unit and/or counseling patient: Coding Level of Care Code 36395 Subseq Hosp Care Lvl 3 Diagnoses Acute exacerbation of CHF (congestive heart failure) I50.9 Heart failure type: unspecified (1) Acute exacerbation of CHF (congestive heart failure) Heart failure type: unspecified Qualified Code(s): I50.9 - Heart failure, unspecified
[2020-12-12 14:48] LABS: Appearance Urine Clear (Clear); Bacteria Urine Automated Negative (Negative); Bilirubin Urine Negative (Negative); Blood Urine 1+ (Negative); Cast Urine Automated 0 /lpf (0-5); Color Urine Yellow; Glucose Urine UA Negative (Negative); Ketones Urine Negative (Negative); Leukocyte Esterase Urine Trace (Negative); Nitrite Urine Negative (Negative); Protein Urine Negative (Negative); Urobilinogen Urine Negative (Negative)
[2020-12-12] MEDS ORDERED: FUROSEMIDE 40 MG in SYRINGE 0 ML IV ONE (18:30)
[2020-12-12] MEDS: FERROUS SULFATE 325 MG TAB PO SCH (18:39)
[2020-12-12] MEDS: INSULIN GLARGINE SOLOSTAR 100 UNITS/ML 3 ML PEN SC SCH (21:16)
[2020-12-13] MEDS: LEVOTHYROXINE SODIUM 25 MCG TABLET PO SCH (05:40)
[2020-12-13] MEDS: AMOXICILLIN 500 MG CAP PO SCH ×2 (08:12→20:25)
[2020-12-13] MEDS: FUROSEMIDE 60 MG in SYRINGE 0 ML IV SCH ×2 (08:12→17:03)
[2020-12-13] MEDS: APIXABAN 2.5 MG TAB PO SCH ×2 (08:12→20:25)
[2020-12-13] MEDS: ESCITALOPRAM OXALATE 10 MG TAB PO SCH (08:13)
[2020-12-13] MEDS: FAMOTIDINE 20 MG TAB PO SCH ×2 (08:13→20:27)
[2020-12-13] MEDS: busPIRone 5 MG TAB PO SCH ×2 (08:13→20:26)
[2020-12-13] MEDS: METOPROLOL TARTRATE 25 MG TAB PO SCH ×2 (08:14→20:27)
[2020-12-13] MEDS: predniSONE 2.5 MG TAB PO SCH (08:14)
[2020-12-13] MEDS: POTASSIUM CHLORIDE CRTAB 20 MEQ TABCR PO SCH ×2 (08:14→20:28)
[2020-12-13] MEDS: FERROUS SULFATE 325 MG TAB PO SCH (08:14)
[2020-12-13] MEDS: THIAMINE HCL 100 MG TAB PO SCH (08:15)
[2020-12-13 08:24] LABS: Nucleated RBC # (auto) 0.03 K/uL (0-0); Nucleated RBC % (auto) 0.7 %
--- NOTE | 2020-12-13 08:26 | Urology Progress Note ---
Date of Service December 13, 2020 Assessment & Plan (1) Hematuria: Tentative plan to complete hematuria work-up as an outpatient We will continue to follow as long as she is inpatient but no immediate plan for any interventions Admission and Anticipated Discharge Date Admission Date: December 10, 2020 Subjective Sleeping upon arrival I was able to wake her, she had her CPAP on She remained quite somnolent throughout She denied any subjective complaints Does not believe she had bleeding last night through her urine Physical Exam Constitutional: well developed and well nourished Respiratory: no respiratory distress Cardiovascular: Extremities: no pedal edema Gastrointestinal (Abdomen): Inspection/Auscultation: abdomen normal to inspection Results & Data ([facility]) Vital Signs (Past 12 Hours) Vital Signs Temp Pulse Resp BP Pulse Ox 12/13/20 07:53 36.3 C L 73 16 132/70 92 12/12/20 23:26 36.8 C 72 12 138/76 93 PG Care Time/CCT Total # of Minutes Spent Total Time Spent with Patient: Total time spent is greater than 50% in coordination of care (as documented) at patient's floor/unit and/or counseling patient: Coding Level of Care Code 56662 Subseq Hosp Care Lvl 2 Diagnoses Hematuria R31.0 Hematuria type: gross (1) Hematuria Hematuria type: gross Qualified Code(s): R31.0 - Gross hematuria
--- NOTE | 2020-12-13 08:29 | Hospitalist Progress Note ---
Date of Service December 13, 2020 Assessment & Plan (1) Blood per rectum: As per HPI: HEME positive in ER. Seen earlier that AM with reported blood from urethra, later in day again for blood in stool secondary to possible fall/injury on eliquis NO FURTHER BLEEDING REPORTED Baseline hgb ~10-->9.8 on admission * GI Consulted * -- no plans for scope and discontinued bowel prep at this time * -- continue oral iron supplementation (iron was 38 in September 2020, repeat 101 but did get blood in past month). B12 wnl 708 /folate wnl >20 * Eliquis held initially giving bleeding but resumed 12/12, --> LOWERED TO 2.5MG PO BID DOSING after discussion with nephrology (age almost 81 this January) given bleeding * Hgb improved to 9.3 on a.m. labs (2) Hematuria: Hematuria/UTI/cystitis * Urology consulted for hematuria (also noted evidence of cystitis/thickened bladder wall on CTAP) UA RBC >30 * -->no further bleeding reported. cytology pending, plan for outpt cysto * -->UA appeared infected and prior enterocc. species, urine cx pending --> Urine culture shows repeat collection recommended * ==>Had already started Amoxicillin on 12/11 (renally dosed) given burning with urination as well. * -->Patient's does state that the patient did receive a dose of IV antibiotics in the emergency room days prior so we will continue treatment with amoxicillin as she was already started. * -->Prior cx from October was treated with Amoxicillin at [facility] from 10/30- 11/04 to have follow up with Urology for outpatient cysto (3) CHF (congestive heart failure): Acute on chronic heart failure with reduced ejection fraction * Most recent echocardiogram from September 19, 2020 which showed left ventricular systolic function borderline reduced at 45-50%, distal septal hypokinesis. Difficult to exclude additional regional wall motion abnormalities. There is mild concentric left ventricular hypertrophy. The right ventricle is mildly dilated. The right ventricular systolic function is mildly reduced. The left atrium is moderately dilated. The right atrium is mild to moderately dilated. There is mild mitral annular calcification. Right ventricular systolic pressure is elevated 40 to 50 mmHg. Compared to echo from December 2019, minimal change * Related HPI: * 1)Admitted in September 2020 for acute on chronic systolic heart failure and required Lasix 80 mg IV daily and was decreased to Lasix 80 mg p.o. 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 Suspect that her dry weight is actually more likely closer to 170-180 pounds but will assess as diuresis occurs. We will also interrogate her pacemaker * 3)Noted that on 09/26/2020 she was doing well with continued diuresis at a weight of 81.8 kg and discharged at 79.9kg on 09/30/20 * On admission she admitted to increased lower extremity edema to her thighs, shortness of breath, decreased appetite and difficulty laying flat * BNP was obtained at that time and found to be 10,168 * CXR with re-demonstration of stable cardiomegaly and possible pulmonary edema. Interval worsening/redistribution bilateral pleural effusion. * troponin 0.045-->0.049--> 0.047 --suspect demand secondary to volume overload * Cardiology also consultation , continue diuretics * Discussed with CHF clinic and will place formal consultation as patient would benefit from close monitoring of her weights and adjustment of diuretics given repeat hospitalizations for CHF * Continue metoprolol 25 mg twice daily * Maintain heart healthy 1500 mL fluid restriction diet * Repeat echocardiogram with left ventricular systolic function unchanged from previous : EF 45 to 50%, severely hypokinetic septum, right ventricle mildly dilated, right ventricular systolic function mildly reduced, left atrium mildly dilated, moderate mitral annular calcification, mild to moderate mitral regurgitation 12/13 * WT 91.5kg (standing scale on 12/12) --previously 93.4 kg when she was inpatient on November 26 * continue standing scale weights -- will ask RN to obtain 12/13 * Increase Lasix to 60 mg IV twice daily this morning as previously needed 80 mg IV twice daily in September 2020 and will increase as tolerated. Her creatinine is less than her typical baseline * States that she is feeling better already this afternoon with increased diuretic dosing and abx * Net -1.5 L over last 24 hours recorded * Continue to monitor (4) Coronary artery disease: * Plavix was recently restarted on previous admission, is not on ASA for primary prevention * Extensive cardiac history including stents * Cardiology okay with continuing to hold Plavix (hx AWILDA 2018) * Metoprolol 25 mg twice daily * No chest pain reported * Minimal troponin elevation secondary to demand as above (5) Afib: * Paroxysmal, history ablation with DDD pacemaker * rate controlled as above with metoprolol twice daily * Eliquis on hold as above but will 2.5 mg by mouth twice daily today as above Can add Lopressor 5 mg IV prn if rate becomes elevated without acute blood loss but would need moved to monitored bed (6) Diabetes: * Sliding scale aspart 20 correction factor 1:15 ratio. * A1c 6.5, well controlled pharmacy for glycemic management while managing the above problems (7) Shortness of breath: * Patient with chronic respiratory failure on 3 L via nasal cannula however suspect reported shortness of breath related to CHF exacerbation as above * Suspect improvement with diuresis as outlined * CXR obtained --IMPRESSION: Re-demonstration of stable cardiomegaly and possible pulmonary edema. Interval worsening/redistribution bilateral pleural effusion. (compared to exam November 24, 2020) * Continued on her Combivent inhaler * Reports improved shortness of breath today * Instructed to utilize CPAP at all times with napping to prevent CO2 retention given previous history in the past -- had increased use 12/12 -- CO2 38 (prior 39) -- continue to utilize as much as possible * Continue to monitor (8) Polymyalgia rheumatica: * Continue tylenol and prednisone 2.5 mg daily (9) Pancytopenia: will have path do peripheral smear +/- heme/onc as above -- -- abn neutrophil count not at level for neupogen. recs to continue to monitor counts, likely myelosuppression. if continues to falter, may need to consider bone marrow . no splenomegaly on imaging to suspect sequestration, no liver dz peripheral smear pending Hgb improving. platelets still low 74 (holding plavix) CBCD in AM Monitor labs in AM (10) Hyphema of left eye: Patient reports she poked herself in her left eye a week ago while cleaning her eye - does not involve the iris - vision to eye intact - no pain DVT Proph - Eliquis resumed as above, SCDs Dispo: continued inpatient stay low threshold for moving to med-tele if becomes HD unstable Admission and Anticipated Discharge Date Admission Date: December 10, 2020 Supervising Physician Co-Signing Physician Notes PA Supervision Note: I did not personally see or examine the patient today, but I verified all [place] points of JEFE Jansen's assessment and plan with the following exceptions/additions: None Subjective Patient evaluated this afternoon. She was upright in the chair much more awake and alert this afternoon. She states her breathing is much improved and she is feeling much better than days past. Discussed improvement in her blood counts and discussion with Dr. Sherman about reducing her Eliquis dosing as this has been resumed and she has reported no further bleeding in either stool or urine.. Regarding episodes of a prior reported fall she is unclear on the details however believes that she was in a different room than she thought at home ended up falling based on the layout of the room she does not remember any specific loss of consciousness or dizziness prior to the fall. She did sustain an area of ecchymosis to her right forearm which is tender to palpation and will have nursing utilize ice for comfort. Per patient did receive a dose of IV antibiotics in the emergency department in days past for suspected UTI and given appearing infected urine despite recommendations for repeat culture as patient is already on antibiotics decision was made to continue those given her improvement. and patient both agree.. Discussed the importance of monitoring daily weights at home and follow-up with CHF clinic as discussed with patient and . They state they do have a scale at home and relates that the patient's edema in her legs was like that when she was discharged from [facility] so much so that she had breaks in her skin due to the swelling. Discussed that edema up to her thighs indicates that she is significantly volume overloaded and follow-up with CHF clinic may allow for titrations at home to prevent rehospitalization in the future. We will obtain PT and OT evaluations to determine safety for patient to discharge home versus repeat rehab. She has been utilizing her CPAP with napping discussed the importance of continuing this prevent CO2 retention. She states decreased burning with urination as well as frequency. She denies fever, chills, chest pain, abdominal discomfort and is eating better today, nausea, vomiting. Review of Systems Review of Systems: All systems reviewed & are unremarkable except as noted in HPI & below Physical Exam Constitutional: well developed, well nourished, cooperative and comfortable (sleeping upon entry to room); no acute distress and not ill appearing (chronically ill appearing) Eyes: + anicteric sclerae and PERRL ENMT: Ears: no external ear abnormality Nose: no external nose abnormality Neck: normal visual inspection and trachea midline Respiratory: normal respiratory effort and able to speak in complete sentences; no respiratory distress, no labored breathing, does not use accessory muscles, no cough, not tachypneic and no audible wheezes Auscultation: + diminished lung sounds (bases bilaterally) and + wheezes (posterior lung edmonds, bibasilar crackles --decreased) Cardiovascular: Rate/Rhythm: regular rate and regular rhythm Heart Sounds: no murmur Vessels: no JVD (unable to assess) Extremities: + edema (+2 pitting edema B/L LE up to thighs, also 1+to b/l hands); no calf tenderness Gastrointestinal (Abdomen): Inspection/Auscultation: abdomen normal to inspection, + abdomen distended (Obese) and normal bowel sounds Percussion/Palpation: abdomen soft; abdomen nontender and no guarding Musculoskeletal: Area of significant ecchymosis/hematoma to right forearm that is tender to palpation Neurologic: moves all extremities and awake Psychiatric: Orientation: alert, oriented x 3 and cooperative Affect: euthymic affect Genitourinary: no CVA tenderness Results & Data Results & Data ([facility]) Vital Signs (Past 12 Hours) Vital Signs Temp Pulse Resp BP Pulse Ox 12/13/20 07:53 36.3 C L 73 16 132/70 92 12/12/20 23:26 36.8 C 72 12 138/76 93 Laboratory Results 12/13/20 12/13/20 12/13/20 Range/Units 08:07 07:51 07:51 WBC (4.8-10.8) K/uL RBC (4.2-5.4) M/uL Hgb (12.0-16.0) g/dL Hct (37-47) % MCV (80-100) fL MCH (25-34) pg MCHC (32-36) g/dL RDW Std Deviation (36.4-46.3) fL RDW Coeff of Nhi (11.5-14.5) % Plt Count (130-400) K/uL Absolute Nucleated RBC (0-0) K/uL Nucleated RBC % (auto) % Neutrophils % (Manual) % Lymphocytes % (Manual) % Monocytes % (Manual) % Eosinophils % (Manual) % Metamyelocytes % (Man) % Myelocytes % (Man) % Neutrophils # (Manual) (1.4-6.5) K/uL Total Absolute Neuts (1.4-6.5) K/uL Lymphocytes # (Manual) (1.2-3.4) K/uL Total Abs Lymphocytes (1.2-3.4) K/uL Monocytes # (Manual) (0.11-0.59) K/uL Eosinophils # (Manual) (0-0.5) K/uL Metamyelocytes # (Man) (0-0) K/uL Myelocytes # (Manual) (0-0) K/uL Platelet Estimate (Normal) Anisocytosis Peripher Smr Path Cons PT (9.0-12.0) Seconds INR (0.9-1.1) Sodium 144 (136-145) mmol/L Potassium 4.7 (3.5-5.1) mmol/L Chloride 104 (98-107) mmol/L Carbon Dioxide 38 H (21-32) mmol/L Anion Gap 2.0 L (3-11) BUN 40 H (7-18) mg/dl Creatinine 1.84 H (0.6-1.2) mg/dl Est Cr Clr Drug Dosing 24.2 ml/min Est GFR ( Amer) 29.7 ml/min Est GFR (Non-Af Amer) 25.6 ml/min BUN/Creatinine Ratio 21.5 H (10-20) Glucose 103 H (70-99) mg/dl POC Glucose 109 H (70-99) mg/dl Calcium 8.7 (8.5-10.1) mg/dl Magnesium 1.9 (1.8-2.4) mg/dl Total Bilirubin 1.1 H (0.2-1) mg/dl Direct Bilirubin 0.3 H (0-0.2) mg/dl AST 20 (15-37) U/L ALT 29 (12-78) U/L Alkaline Phosphatase 88 (45-117) U/L Total Protein 5.6 L (6.4-8.2) gm/dl Albumin 3.0 L (3.4-5.0) gm/dl Cortisol AM Sample Pending Urine Color Urine Appearance (Clear) Urine pH (4.5-7.5) Ur Specific [place] (1.000-1.030) Urine Protein (Negative) Urine Glucose (UA) (Negative) Urine Ketones (Negative) Urine Blood (Negative) Urine Nitrite (Negative) Urine Bilirubin (Negative) Urine Urobilinogen (Negative) Ur Leukocyte Esterase (Negative) Urine WBC (Auto) (0-5) /hpf Urine RBC (Auto) (0-4) /hpf U Hyaline Cast (Auto) (0-5) /lpf U Epithel Cells (Auto) (0-5) /lpf Urine Bacteria (Auto) (Negative) 12/13/20 12/12/20 12/12/20 Range/Units 07:51 21:11 18:35 WBC 4.28 L (4.8-10.8) K/uL RBC 3.42 L (4.2-5.4) M/uL Hgb 9.3 L (12.0-16.0) g/dL Hct 32.1 L (37-47) % MCV 93.9 (80-100) fL MCH 27.2 (25-34) pg MCHC 29.0 L (32-36) g/dL RDW Std Deviation 65.6 H (36.4-46.3) fL RDW Coeff of Nhi 19.3 H (11.5-14.5) % Plt Count 74 L (130-400) K/uL Absolute Nucleated RBC 0.03 H (0-0) K/uL Nucleated RBC % (auto) 0.7 % Neutrophils % (Manual) 77.4 % Lymphocytes % (Manual) 13.9 % Monocytes % (Manual) 3.5 % Eosinophils % (Manual) 2.6 % Metamyelocytes % (Man) 1.7 % Myelocytes % (Man) 0.9 % Neutrophils # (Manual) 3.31 (1.4-6.5) K/uL Total Absolute Neuts 3.31 (1.4-6.5) K/uL Lymphocytes # (Manual) 0.59 L (1.2-3.4) K/uL Total Abs Lymphocytes 0.59 L (1.2-3.4) K/uL Monocytes # (Manual) 0.15 (0.11-0.59) K/uL Eosinophils # (Manual) 0.11 (0-0.5) K/uL Metamyelocytes # (Man) 0.07 H (0-0) K/uL Myelocytes # (Manual) 0.04 H (0-0) K/uL Platelet Estimate Decreased L (Normal) Anisocytosis Present Peripher Smr Path Cons Pending PT (9.0-12.0) Seconds INR (0.9-1.1) Sodium (136-145) mmol/L Potassium (3.5-5.1) mmol/L Chloride (98-107) mmol/L Carbon Dioxide (21-32) mmol/L Anion Gap (3-11) BUN (7-18) mg/dl Creatinine (0.6-1.2) mg/dl Est Cr Clr Drug Dosing ml/min Est GFR ( Amer) ml/min Est GFR (Non-Af Amer) ml/min BUN/Creatinine Ratio (10-20) Glucose (70-99) mg/dl POC Glucose 158 H (70-99) mg/dl Calcium (8.5-10.1) mg/dl Magnesium (1.8-2.4) mg/dl Total Bilirubin (0.2-1) mg/dl Direct Bilirubin (0-0.2) mg/dl AST (15-37) U/L ALT (12-78) U/L Alkaline Phosphatase (45-117) U/L Total Protein (6.4-8.2) gm/dl Albumin (3.4-5.0) gm/dl Cortisol AM Sample Urine Color Urine Appearance (Clear) Urine pH (4.5-7.5) Ur Specific [place] (1.000-1.030) Urine Protein (Negative) Urine Glucose (UA) (Negative) Urine Ketones (Negative) Urine Blood (Negative) Urine Nitrite (Negative) Urine Bilirubin (Negative) Urine Urobilinogen (Negative) Ur Leukocyte Esterase (Negative) Urine WBC (Auto) (0-5) /hpf Urine RBC (Auto) (0-4) /hpf U Hyaline Cast (Auto) (0-5) /lpf U Epithel Cells (Auto) (0-5) /lpf Urine Bacteria (Auto) (Negative) 12/12/20 12/12/20 12/12/20 Range/Units 17:12 13:50 12:00 WBC (4.8-10.8) K/uL RBC (4.2-5.4) M/uL Hgb (12.0-16.0) g/dL Hct (37-47) % MCV (80-100) fL MCH (25-34) pg MCHC (32-36) g/dL RDW Std Deviation (36.4-46.3) fL RDW Coeff of Nhi (11.5-14.5) % Plt Count (130-400) K/uL Absolute Nucleated RBC (0-0) K/uL Nucleated RBC % (auto) % Neutrophils % (Manual) % Lymphocytes % (Manual) % Monocytes % (Manual) % Eosinophils % (Manual) % Metamyelocytes % (Man) % Myelocytes % (Man) % Neutrophils # (Manual) (1.4-6.5) K/uL Total Absolute Neuts (1.4-6.5) K/uL Lymphocytes # (Manual) (1.2-3.4) K/uL Total Abs Lymphocytes (1.2-3.4) K/uL Monocytes # (Manual) (0.11-0.59) K/uL Eosinophils # (Manual) (0-0.5) K/uL Metamyelocytes # (Man) (0-0) K/uL Myelocytes # (Manual) (0-0) K/uL Platelet Estimate (Normal) Anisocytosis Peripher Smr Path Cons PT (9.0-12.0) Seconds INR (0.9-1.1) Sodium (136-145) mmol/L Potassium (3.5-5.1) mmol/L Chloride (98-107) mmol/L Carbon Dioxide (21-32) mmol/L Anion Gap (3-11) BUN (7-18) mg/dl Creatinine (0.6-1.2) mg/dl Est Cr Clr Drug Dosing ml/min Est GFR ( Amer) ml/min Est GFR (Non-Af Amer) ml/min BUN/Creatinine Ratio (10-20) Glucose (70-99) mg/dl POC Glucose 201 H 180 H (70-99) mg/dl Calcium (8.5-10.1) mg/dl Magnesium (1.8-2.4) mg/dl Total Bilirubin (0.2-1) mg/dl Direct Bilirubin (0-0.2) mg/dl AST (15-37) U/L ALT (12-78) U/L Alkaline Phosphatase (45-117) U/L Total Protein (6.4-8.2) gm/dl Albumin (3.4-5.0) gm/dl Cortisol AM Sample Urine Color Yellow Urine Appearance Clear (Clear) Urine pH 5.0 (4.5-7.5) Ur Specific [place] 1.010 (1.000-1.030) Urine Protein Negative (Negative) Urine Glucose (UA) Negative (Negative) Urine Ketones Negative (Negative) Urine Blood 1+ H (Negative) Urine Nitrite Negative (Negative) Urine Bilirubin Negative (Negative) Urine Urobilinogen Negative (Negative) Ur Leukocyte Esterase Trace H (Negative) Urine WBC (Auto) 1-5 (0-5) /hpf Urine RBC (Auto) 10-30 H (0-4) /hpf U Hyaline Cast (Auto) 0 (0-5) /lpf U Epithel Cells (Auto) 5-10 H (0-5) /lpf Urine Bacteria (Auto) Negative (Negative) 12/12/20 Range/Units 09:48 WBC (4.8-10.8) K/uL RBC (4.2-5.4) M/uL Hgb (12.0-16.0) g/dL Hct (37-47) % MCV (80-100) fL MCH (25-34) pg MCHC (32-36) g/dL RDW Std Deviation (36.4-46.3) fL RDW Coeff of Nhi (11.5-14.5) % Plt Count (130-400) K/uL Absolute Nucleated RBC (0-0) K/uL Nucleated RBC % (auto) % Neutrophils % (Manual) % Lymphocytes % (Manual) % Monocytes % (Manual) % Eosinophils % (Manual) % Metamyelocytes % (Man) % Myelocytes % (Man) % Neutrophils # (Manual) (1.4-6.5) K/uL Total Absolute Neuts (1.4-6.5) K/uL Lymphocytes # (Manual) (1.2-3.4) K/uL Total Abs Lymphocytes (1.2-3.4) K/uL Monocytes # (Manual) (0.11-0.59) K/uL Eosinophils # (Manual) (0-0.5) K/uL Metamyelocytes # (Man) (0-0) K/uL Myelocytes # (Manual) (0-0) K/uL Platelet Estimate (Normal) Anisocytosis Peripher Smr Path Cons PT 10.7 (9.0-12.0) Seconds INR 1.1 (0.9-1.1) Sodium (136-145) mmol/L Potassium (3.5-5.1) mmol/L Chloride (98-107) mmol/L Carbon Dioxide (21-32) mmol/L Anion Gap (3-11) BUN (7-18) mg/dl Creatinine (0.6-1.2) mg/dl Est Cr Clr Drug Dosing ml/min Est GFR ( Amer) ml/min Est GFR (Non-Af Amer) ml/min BUN/Creatinine Ratio (10-20) Glucose (70-99) mg/dl POC Glucose (70-99) mg/dl Calcium (8.5-10.1) mg/dl Magnesium (1.8-2.4) mg/dl Total Bilirubin (0.2-1) mg/dl Direct Bilirubin (0-0.2) mg/dl AST (15-37) U/L ALT (12-78) U/L Alkaline Phosphatase (45-117) U/L Total Protein (6.4-8.2) gm/dl Albumin (3.4-5.0) gm/dl Cortisol AM Sample Urine Color Urine Appearance (Clear) Urine pH (4.5-7.5) Ur Specific [place] (1.000-1.030) Urine Protein (Negative) Urine Glucose (UA) (Negative) Urine Ketones (Negative) Urine Blood (Negative) Urine Nitrite (Negative) Urine Bilirubin (Negative) Urine Urobilinogen (Negative) Ur Leukocyte Esterase (Negative) Urine WBC (Auto) (0-5) /hpf Urine RBC (Auto) (0-4) /hpf U Hyaline Cast (Auto) (0-5) /lpf U Epithel Cells (Auto) (0-5) /lpf Urine Bacteria (Auto) (Negative) PG Care Time/CCT Total # of Minutes Spent Total Time Spent with Patient: Total time spent is greater than 50% in coordination of care (as documented) at patient's floor/unit and/or counseling patient: Coding Level of Care Code 00028 Subseq Hosp Care Lvl 3 Diagnoses Blood per rectum K62.5 Hematuria R31.0 Hematuria type: gross CHF (congestive heart failure) I50.9 Heart failure chronicity: chronic Heart failure type: unspecified Coronary artery disease I25.10 Associated angina: without angina Coronary Disease-Associated Artery/Lesion type: [place] artery [place] vs. transplanted heart: [place] heart Afib I48.91 Atrial fibrillation type: unspecified Diabetes E11.9; Z79.4 Diabetes mellitus complication status: without complication Diabetes mellitus half-way insulin use: with half-way use Diabetes mellitus type: type 2 Shortness of breath R06.02 Polymyalgia rheumatica M35.3 Pancytopenia D61.818 Hyphema of left eye H21.02 (1) Hematuria Hematuria type: gross Qualified Code(s): R31.0 - Gross hematuria (2) Diabetes Diabetes mellitus complication status: without complication Diabetes mellitus half-way insulin use: with long winder tender use Diabetes mellitus type: type 2 Qualified Code(s): E11.9 - Type 2 diabetes mellitus without complications; Z79.4 - penitentiary (current) use of insulin (3) Coronary artery disease Associated angina: without angina Coronary Disease-Associated Artery/Lesion type: [place] artery [place] vs. transplanted heart: [place] heart Qualified Code(s): I25.10 - Atherosclerotic heart disease of [place] coronary artery without angina pectoris (4) CHF (congestive heart failure) Heart failure chronicity: chronic Heart failure type: unspecified Qualified Code(s): I50.9 - Heart failure, unspecified (5) Afib Atrial fibrillation type: unspecified Qualified Code(s): I48.91 - Unspecified atrial fibrillation
[2020-12-13 08:33] LABS: Hematocrit (blood only) 32.1 % (37-47); Hemoglobin 9.3 g/dL (12.0-16.0); Mean Corpuscular Hemoglobin 27.2 pg (25-34); Mean Corpuscular Volume 93.9 fL (80-100); RDW Coefficient of Variation 19.3 % (11.5-14.5); RDW Standard Deviation 65.6 fL (36.4-46.3); Red Blood Count 3.42 M/uL (4.2-5.4); White Blood Count 4.28 K/uL (4.8-10.8)
[2020-12-13 08:43] LABS: BUN Creatinine Ratio 21.5 (10-20); Bilirubin Direct 0.3 mg/dl (0-0.2); Calcium 8.7 mg/dl (8.5-10.1); Creatinine Clr Calc Pharmacy 24.2 ml/min; Est GFR (African American) 29.7 ml/min; Est GFR (Non-African American) 25.6 ml/min; Magnesium 1.9 mg/dl (1.8-2.4); Potassium 4.7 mmol/L (3.5-5.1)
[2020-12-13 08:46] LABS: Bilirubin,Total 1.1 mg/dl (0.2-1); Total Protein 5.6 gm/dl (6.4-8.2)
[2020-12-13 08:49] LABS: Platelet Count 74 K/uL (130-400)
[2020-12-13 08:50] LABS: ALC (manual) 0.59 K/uL (1.2-3.4); ANC (manual) 3.31 K/uL (1.4-6.5); Anisocytosis Present; Eosinophils # (manual) 0.11 K/uL (0-0.5); Eosinophils % (manual) 2.6 %; Lymphocytes # (manual) 0.59 K/uL (1.2-3.4); Lymphocytes % (manual) 13.9 %; Metamyelocytes # (manual) 0.07 K/uL (0-0); Metamyelocytes % (manual) 1.7 %; Monocytes # (manual) 0.15 K/uL (0.11-0.59); Monocytes % (manual) 3.5 %; Myelocytes # (manual) 0.04 K/uL (0-0); Myelocytes % (manual) 0.9 %; Neutrophils # (manual) 3.31 K/uL (1.4-6.5); Neutrophils % (manual) 77.4 %; Platelet Estimate Decreased (Normal)
[2020-12-13] MEDS: INSULIN ASPART 100 UNITS/ML 3 ML PEN SC SCH ×4 (09:11→21:34)
--- NOTE | 2020-12-13 10:41 | Ultrasound Report ---
US gallbladder CLINICAL HISTORY: Elevated bilirubin. COMPARISON STUDY: CT of the abdomen and pelvis December 10, 2020 and September 20, 2020. FINDINGS: Liver echogenicity is within normal limits. No hepatic lesions are identified. There is no biliary ductal dilatation. The common bile duct measures 6 mm in caliber. No gallstones are noted. Th ere is no gallbladder wall thickening. Pancreatic body is normal. Head and tail are partially obscure d. IMPRESSION: No gallstones or biliary ductal dilatation. ACT 112: Negative or not required by law. Electronically signed by: Jose Mcgregor M.D. 12/13/2020 10:40 AM
[2020-12-13] MEDS: INSULIN GLARGINE SOLOSTAR 100 UNITS/ML 3 ML PEN SC SCH (21:34)
[2020-12-14] MEDS: HEPARIN 100 UNIT/ML 5ML FLUSH FLUSH PRN (05:23)
[2020-12-14] MEDS: LEVOTHYROXINE SODIUM 25 MCG TABLET PO SCH (06:21)
[2020-12-14 06:32] LABS: Hematocrit (blood only) 31.5 % (37-47); Mean Corpuscular Hemoglobin 27.4 pg (25-34); Mean Corpuscular Hgb Conc 28.6 g/dL (32-36); Nucleated RBC # (auto) 0.03 K/uL (0-0); Nucleated RBC % (auto) 0.7 %; Platelet Count 76 K/uL (130-400); RDW Coefficient of Variation 19.5 % (11.5-14.5); Red Blood Count 3.28 M/uL (4.2-5.4); White Blood Count 4.29 K/uL (4.8-10.8)
[2020-12-14 06:42] LABS: Basophils # (auto) 0.01 K/uL (0-0.2); Basophils % (auto) 0.2 %; Eosinophils # (auto) 0.07 K/uL (0-0.5); Eosinophils % (auto) 1.6 %; Immature Granulocytes # (auto) 0.08 K/uL (0.00-0.02); Immature Granulocytes % (auto) 1.9 %; Lymphocytes # (auto) 0.87 K/uL (1.2-3.4); Lymphocytes % (auto) 20.3 %; Monocytes # (auto) 0.36 K/uL (0.11-0.59); Monocytes % (auto) 8.4 %; Neutrophils % (auto) 67.6 %; Platelet Estimate Decreased (Normal); Polychromasia 1+; Stomatocytes 1+; Tear Drop Cells 1+
[2020-12-14 06:52] LABS: BUN Creatinine Ratio 23.4 (10-20); Calcium 8.8 mg/dl (8.5-10.1); Creatinine Clr Calc Pharmacy 23.3 ml/min; Est GFR (African American) 27.2 ml/min; Est GFR (Non-African American) 23.4 ml/min; Potassium 4.8 mmol/L (3.5-5.1)
[2020-12-14 06:55] LABS: Albumin Globulin Ratio 1.1 (0.9-2); Bilirubin,Total 1.1 mg/dl (0.2-1); Globulin 2.7 gm/dl (2.5-4.0); Total Protein 5.7 gm/dl (6.4-8.2)
--- NOTE | 2020-12-14 08:51 | Hospitalist Progress Note ---
Date of Service December 14, 2020 Assessment & Plan (1) Blood per rectum: As per HPI: HEME positive in ER. Seen earlier that AM with reported blood from urethra, later in day again for blood in stool secondary to possible fall/injury on eliquis NO FURTHER BLEEDING REPORTED Baseline hgb ~10-->9.8 on admission * GI Consulted * -- no plans for scope and discontinued bowel prep at this time * -- continue oral iron supplementation (iron was 38 in September 2020, repeat 101 but did get blood in past month). B12 wnl 708 /folate wnl >20 * Eliquis held initially giving bleeding but resumed 12/12, --> LOWERED TO 2.5MG PO BID DOSING after discussion with nephrology (age almost 81 this January) given bleeding Hgb improved to 9.3 on a.m. labs after eliquis resumed, however now 9.0 with worsening ecchymosis/hematoma to R forearm from prior reported fall --> Obtaining CT FOrearm without contrast due to kidney function (2) Hematoma: ?? 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 cytology pending, plan for outpt cysto * -->UA appeared infected and prior enterocc. species, urine cx pending --> Urine culture shows repeat collection recommended * ==>Had already started Amoxicillin on 12/11 (renally dosed) given burning with urination as well. -- no further burning and would complete course of Amoxicillin * -->Patient's does state that the patient did receive a dose of IV antibiotics in the emergency room days prior so we will continue treatment with amoxicillin as she was already started. * -->Prior cx from October was treated with Amoxicillin at [facility] from 10/30- 11/04 to have follow up with Urology for outpatient cysto (4) CHF (congestive heart failure): Acute on chronic heart failure with reduced ejection fraction * Echo September 19, 2020 showed left ventricular systolic function borderline reduced at 45-50%, distal septal hypokinesis. Difficult to exclude additional regional wall motion abnormalities. There is mild concentric left ventricular hypertrophy. The right ventricle is mildly dilated. The right ventricular systolic function is mildly reduced. The left atrium is moderately dilated. The right atrium is mild to moderately dilated. There is mild mitral annular calcification. Right ventricular systolic pressure is elevated 40 to 50 mmHg. Compared to echo from December 2019, minimal change Related HPI: * Admitted in September 2020 for acute on chronic systolic heart failure and required Lasix 80 mg IV daily and was decreased to Lasix 80 mg p.o. twice daily and discharged on 40 mg twice daily due to hypernatremia. 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 Suspect that her dry weight is actually more likely closer to 170-180 pounds but will assess as diuresis occurs. We will also interrogate her pacemaker. * Noted that on 09/26/2020 she was doing well with continued diuresis at a weight of 81.8 kg and discharged at 79.9kg on 09/30/20 On admission: admitted to increased lower extremity edema to her thighs, shortness of breath, decreased appetite and difficulty laying flat. Wt up on admission in 90kg range, baseline closer to 79.9kg * BNP was obtained at that time and found to be 10,168 * CXR with re-demonstration of stable cardiomegaly and possible pulmonary edema. Interval worsening/redistribution bilateral pleural effusion. * troponin 0.045-->0.049--> 0.047 --suspect demand secondary to volume overload * Cardiology also consultation , continue diuretics * Discussed with CHF clinic and will place formal consultation as patient would benefit from close monitoring of her weights and adjustment of diuretics given repeat hospitalizations for CHF * Continue metoprolol 25 mg twice daily * Maintain heart healthy 1500 mL fluid restriction diet * Repeat echocardiogram with left ventricular systolic function unchanged from previous : EF 45 to 50%, severely hypokinetic septum, right ventricle mildly dilated, right ventricular systolic function mildly reduced, left atrium mildly dilated, moderate mitral annular calcification, mild to moderate mitral regurgitation 12/14 * WT down to 88.6kg -- 95kg recorded on admission (previously 93.4 kg when she was inpatient on November 26) * continue standing scale weights * Increased Lasix to 60 mg IV twice daily this morning as previously needed 80 mg IV twice daily in September 2020 and will increase as tolerated. Her creatinine is less than her typical baseline but will need closely monitored * States that she is feeling better already this afternoon with increased diuretic dosing and abx * Output 3L, net negative 2.5L * Continue to monitor (5) Coronary artery disease: * Plavix was recently restarted on previous admission, is not on ASA for primary prevention * Extensive cardiac history including stents * Cardiology okay with continuing to hold Plavix (hx AWILDA 2017)-- resumed this morning but will monitor platelets * Metoprolol 25 mg twice daily * No chest pain reported * Minimal troponin elevation secondary to demand as above (6) Afib: * Paroxysmal, history ablation with DDD pacemaker * rate controlled as above with metoprolol twice daily * Eliquis on hold as above but now 2.5 mg by mouth twice daily today as above Can add Lopressor 5 mg IV prn if rate becomes elevated without acute blood loss but would need moved to monitored bed (7) Diabetes: * Sliding scale aspart 20 correction factor 1:15 ratio. * A1c 6.5, well controlled pharmacy for glycemic management while managing the above problems (8) Shortness of breath: * Patient with chronic respiratory failure on 3 L via nasal cannula however suspect reported shortness of breath related to CHF exacerbation as above * Suspect improvement with diuresis as outlined * CXR obtained --IMPRESSION: Re-demonstration of stable cardiomegaly and possible pulmonary edema. Interval worsening/redistribution bilateral pleural effusion. (compared to exam November 24, 2020) * Continued on her Combivent inhaler * Reports improved shortness of breath today * Instructed to utilize CPAP at all times with napping to prevent CO2 retention given previous history in the past -- had increased use 12/12 -- CO2 39 --> asked RN to please have pt use with napping again today (9) Polymyalgia rheumatica: * Continue tylenol and prednisone 2.5 mg daily (contributing to wt gain/edema as well) (10) Pancytopenia: * will have path do peripheral smear * +/- heme/onc as above -- -- abn neutrophil count not at level for neupogen. recs to continue to monitor counts, likely myelosuppression. if continues to falter, may need to consider bone marrow . no splenomegaly on imaging to suspect sequestration, no liver dz * peripheral smear pending * Hgb as above. platelets still low 76 but resume plavix and monitor closely * CBC in AM (11) Hyphema of left eye: Patient reports she poked herself in her left eye a week ago while cleaning her eye - does not involve the iris - vision to eye intact - no pain DVT Proph * Eliquis resumed as above (may need continued holding given R arm eccymosis/hematoma) * SCDs PT/OT consultations pending Of note, patient started on B1 for reported hx dementia -- cognition does appear to be improved and B1 level drawn prior to initiation and is pending. Dispo: continued inpatient stay Admission and Anticipated Discharge Date Admission Date: December 10, 2020 Supervising Physician Co-Signing Physician Notes PA Supervision Note: I did not personally see or examine the patient today, but I verified all [place] points of JEFE Jansen's assessment and plan with the following exceptions/additions: None Subjective Patient evaluated this morning. Feeling much better but did have increased eccymosis to her R forearm compared to yesterday. Discussed possible hematoma and source of bleeding as she has had no further hematuria and states she had a formed bowel movement without blood. Discussed utilizing CPAP as much as possible when napping as she is much more "bright eyes and bushy tailed" today. She is hopeful to return home with and home health as soon as possible and hopes for early next week if stable. Agreed to CHF follow up and discussed importance. No fever, chills , chest pain, shortness of breath, abdominal pain, nausea, vomiting or dysuria. Burning resolved and will complete abx for UTI with amoxicillin as already started. Questions/concerns addressed at this time. Review of Systems Review of Systems: All systems reviewed & are unremarkable except as noted in HPI & below Physical Exam Constitutional: well developed, well nourished, cooperative and comfortable (sitting up in chair watching TV); no acute distress and not ill appearing (chronically ill appearing) Eyes: + anicteric sclerae and PERRL ENMT: Ears: no external ear abnormality Nose: no external nose abnormality Neck: normal visual inspection and trachea midline Respiratory: normal respiratory effort and able to speak in complete sentences; no respiratory distress, no labored breathing, does not use accessory muscles, no cough, not tachypneic and no audible wheezes Auscultation: + diminished lung sounds (bases bilaterally) and + wheezes (posterior lung edmonds, bibasilar crackles --decreased) on 3L NC Cardiovascular: Rate/Rhythm: regular rate and regular rhythm Heart Sounds: no murmur Vessels: no JVD (unable to assess) Extremities: + edema (+2 pitting edema B/L LE up to thighs, also 1+to b/l hands IMPROVING); no calf tenderness Gastrointestinal (Abdomen): Inspection/Auscultation: abdomen normal to inspection, + abdomen distended (Obese) and normal bowel sounds Percussion/Palpation: abdomen soft; abdomen nontender and no guarding Musculoskeletal: ecchymosis with hematoma R forearm -- ecchymosis now extending from 2in proximal to R elbow to her wrist on the medial aspect +ice pack and elevation tender to palpation NVI and pulses palpable. 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4 (25-34) pg MCHC 28.6 L (32-36) g/dL RDW Std Deviation 67.0 H (36.4-46.3) fL RDW Coeff of Nhi 19.5 H (11.5-14.5) % Plt Count 76 L (130-400) K/uL Immature Gran % (Auto) 1.9 % Neut % (Auto) 67.6 % Lymph % (Auto) 20.3 % Hodgeman % (Auto) 8.4 % Eos % (Auto) 1.6 % Baso % (Auto) 0.2 % Neut # (Auto) 2.90 (1.4-6.5) K/uL Lymph # (Auto) 0.87 L (1.2-3.4) K/uL Hodgeman # (Auto) 0.36 (0.11-0.59) K/uL Eos # (Auto) 0.07 (0-0.5) K/uL Baso # (Auto) 0.01 (0-0.2) K/uL Immature Gran # (Auto) 0.08 H (0.00-0.02) K/uL Absolute Nucleated RBC 0.03 H (0-0) K/uL Nucleated RBC % (auto) 0.7 % Platelet Estimate Decreased L (Normal) Polychromasia 1+ Tear Drop Cells 1+ Stomatocytes 1+ Sodium 143 (136-145) mmol/L Potassium 4.8 (3.5-5.1) mmol/L Chloride 104 (98-107) mmol/L Carbon Dioxide 39 H (21-32) mmol/L Anion Gap 0 L (3-11) BUN 46 H (7-18) mg/dl Creatinine 1.98 H (0.6-1.2) mg/dl Est Cr Clr Drug Dosing 23.3 ml/min Est GFR ( Amer) 27.2 ml/min Est GFR (Non-Af Amer) 23.4 ml/min BUN/Creatinine Ratio 23.4 H (10-20) Glucose 126 H (70-99) mg/dl POC Glucose 140 H (70-99) mg/dl Calcium 8.8 (8.5-10.1) mg/dl Total Bilirubin 1.1 H (0.2-1) mg/dl AST 20 (15-37) U/L ALT 27 (12-78) U/L Alkaline Phosphatase 86 (45-117) U/L Total Protein 5.7 L (6.4-8.2) gm/dl Albumin 3.0 L (3.4-5.0) gm/dl Globulin 2.7 (2.5-4.0) gm/dl Albumin/Globulin Ratio 1.1 (0.9-2) 12/13/20 12/13/20 12/13/20 Range/Units 20:42 17:32 11:59 WBC (4.8-10.8) K/uL RBC (4.2-5.4) M/uL Hgb (12.0-16.0) g/dL Hct (37-47) % MCV (80-100) fL MCH (25-34) pg MCHC (32-36) g/dL RDW Std Deviation (36.4-46.3) fL RDW Coeff of Nhi (11.5-14.5) % Plt Count (130-400) K/uL Immature Gran % (Auto) % Neut % (Auto) % Lymph % (Auto) % Hodgeman % (Auto) % Eos % (Auto) % Baso % (Auto) % Neut # (Auto) (1.4-6.5) K/uL Lymph # (Auto) (1.2-3.4) K/uL Hodgeman # (Auto) (0.11-0.59) K/uL Eos # (Auto) (0-0.5) K/uL Baso # (Auto) (0-0.2) K/uL Immature Gran # (Auto) (0.00-0.02) K/uL Absolute Nucleated RBC (0-0) K/uL Nucleated RBC % (auto) % Platelet Estimate (Normal) Polychromasia Tear Drop Cells Stomatocytes Sodium (136-145) mmol/L Potassium (3.5-5.1) mmol/L Chloride (98-107) mmol/L Carbon Dioxide (21-32) mmol/L Anion Gap (3-11) BUN (7-18) mg/dl Creatinine (0.6-1.2) mg/dl Est Cr Clr Drug Dosing ml/min Est GFR ( Amer) ml/min Est GFR (Non-Af Amer) ml/min BUN/Creatinine Ratio (10-20) Glucose (70-99) mg/dl POC Glucose 179 H 205 H 199 H (70-99) mg/dl Calcium (8.5-10.1) mg/dl Total Bilirubin (0.2-1) mg/dl AST (15-37) U/L ALT (12-78) U/L Alkaline Phosphatase (45-117) U/L Total Protein (6.4-8.2) gm/dl Albumin (3.4-5.0) gm/dl Globulin (2.5-4.0) gm/dl Albumin/Globulin Ratio (0.9-2) PG Care Time/CCT Total # of Minutes Spent Total Time Spent with Patient: Total time spent is greater than 50% in coordination of care (as documented) at patient's floor/unit and/or counseling patient: Coding Level of Care Code 27406 Subseq Hosp Care Lvl 3 Diagnoses Blood per rectum K62.5 Hematoma T14.8XXA Hematuria R31.0 Hematuria type: gross CHF (congestive heart failure) I50.9 Heart failure chronicity: chronic Heart failure type: unspecified Coronary artery disease I25.10 Associated angina: without angina Coronary Disease-Associated Artery/Lesion type: [place] artery [place] vs. transplanted heart: [place] heart Afib I48.91 Atrial fibrillation type: unspecified Diabetes E11.9; Z79.4 Diabetes mellitus complication status: without complication Diabetes mellitus fpc insulin use: with termination clerk use Diabetes mellitus type: type 2 Shortness of breath R06.02 Polymyalgia rheumatica M35.3 Pancytopenia D61.818 Hyphema of left eye H21.02 (1) Hematuria Hematuria type: gross Qualified Code(s): R31.0 - Gross hematuria (2) Diabetes Diabetes mellitus complication status: without complication Diabetes mellitus fpc insulin use: with termination clerk use Diabetes mellitus type: type 2 Qualified Code(s): E11.9 - Type 2 diabetes mellitus without complications; Z79.4 - long term care pharmacist (current) use of insulin (3) Coronary artery disease Associated angina: without angina Coronary Disease-Associated Artery/Lesion type: [place] artery [place] vs. transplanted heart: [place] heart Qualified Code(s): I25.10 - Atherosclerotic heart disease of [place] coronary artery wi thout angina pectoris (4) CHF (congestive heart failure) Heart failure chronicity: chronic Heart failure type: unspecified Qualified Code(s): I50.9 - Heart failure, unspecified (5) Afib Atrial fibrillation type: unspecified Qualified Code(s): I48.91 - Unspecified atrial fibrillation
--- NOTE | 2020-12-14 09:25 | Urology Progress Note ---
Date of Service December 14, 2020 Assessment & Plan (1) Hematuria: no current hematuria continue empiric UTI treatment we will arrange for outpt f/u please let us know if further assistance is needed during this hospitalization Admission and Anticipated Discharge Date Admission Date: December 10, 2020 Subjective no complaints this am - denies hematuria overnight only subjective complaint has to do with her right arm - severe ecchymosis and swelling somewhat limited mobility, but she is able to move her fingers Physical Exam Physical Exam: severely ecchymotic right arm palpable pulse and moving all digits Constitutional: well developed and well nourished Respiratory: no respiratory distress Cardiovascular: Extremities: no pedal edema Gastrointestinal (Abdomen): Inspection/Auscultation: abdomen normal to inspection Results & Data ([facility]) Vital Signs (Past 12 Hours) Vital Signs Temp Pulse Resp BP Pulse Ox 12/14/20 08:09 36.4 C L 70 19 117/71 100 12/13/20 23:15 36.4 C L 86 14 138/82 99 PG Care Time/CCT Total # of Minutes Spent Total Time Spent with Patient: Total time spent is greater than 50% in coordination of care (as documented) at patient's floor/unit and/or counseling patient: Coding Level of Care Code 02382 Subseq Hosp Care Lvl 2 Diagnoses Hematuria R31.0 Hematuria type: gross (1) Hematuria Hematuria type: gross Qualified Code(s): R31.0 - Gross hematuria
[2020-12-14] MEDS: INSULIN ASPART 100 UNITS/ML 3 ML PEN SC SCH ×4 (09:31→21:16)
[2020-12-14] MEDS: APIXABAN 2.5 MG TAB PO SCH ×2 (09:40→20:05)
[2020-12-14] MEDS: AMOXICILLIN 500 MG CAP PO SCH ×2 (09:40→20:05)
[2020-12-14] MEDS: predniSONE 2.5 MG TAB PO SCH (09:40)
[2020-12-14] MEDS: ESCITALOPRAM OXALATE 10 MG TAB PO SCH (09:40)
[2020-12-14] MEDS: POTASSIUM CHLORIDE CRTAB 20 MEQ TABCR PO SCH ×2 (09:41→20:06)
[2020-12-14] MEDS: FERROUS SULFATE 325 MG TAB PO SCH (09:41)
[2020-12-14] MEDS: FAMOTIDINE 20 MG TAB PO SCH ×2 (09:41→20:06)
[2020-12-14] MEDS: THIAMINE HCL 100 MG TAB PO SCH (09:41)
[2020-12-14] MEDS: FUROSEMIDE 60 MG in SYRINGE 0 ML IV SCH ×2 (09:41→18:02)
[2020-12-14] MEDS: busPIRone 5 MG TAB PO SCH ×2 (09:41→20:06)
[2020-12-14] MEDS: METOPROLOL TARTRATE 25 MG TAB PO SCH ×2 (09:41→20:07)
--- NOTE | 2020-12-14 10:08 | Pharmacy Report ---
Pharmacy Glycemic Short Note 2 - Date of Service December 14, 2020 - Glycemic Short BSG Results (Last 24 hours): 12/13/20 12/13/20 12/13/20 11:59 17:32 20:42 Glucose POC Glucose 199 H 205 H 179 H 12/14/20 12/14/20 05:21 08:30 Glucose 126 H POC Glucose 140 H OUTPATIENT ANTIDIABETIC REGIMEN: * humalog 15 units TID * 6.7% 11/25/20 ASSESSMENT: 12/14: * Patient received total of 28 units of insulin yesterday; 10 units basal + 18 units bolus. * Fasting BSG = 126 mg/dl. Will increase Lantus dose slightly tonight. * Post-prandial BSGs were elevated yesterday. Novolog parameters tightened this AM. * Of note, pt's serum creatinine has been trending up, will adjust insulin doses carefully. Pt's diet intake has improved. 12/12: * Patient initiated on a low dose basal/bolus regimen last evening. BSGs trended down nicely with the patient receiving a total of 15 units of insulin yesterday, 10 of which were basal. * Patient was continued on home low dos prednisone and is tolerating a diet. PLAN FOR INPATIENT GLYCEMIC CONTROL: * Basal insulin: increased * Lantus 12 units SQ HS * Bolus insulin: tightened CF/CR * NovoLog per scale ACHS or Q6hrs while NPO * Goal Range: Low 110 mg/dL - High 140 mg/dL * Correction Factor: 25 mg/dL/unit * Nutritional / Prandial insulin per carb ratio of 1 unit per 8 grams CHO consumed
[2020-12-14] MEDS: CLOPIDOGREL BISULFATE 75 MG TAB PO SCH (10:27)
--- NOTE | 2020-12-14 12:06 | CT Scan Report ---
RIGHT FOREARM CT CT DOSE: 1519.78 mGy.cm HISTORY: Right forearm pain. ecchymosis/hematoma eval s/p fall TECHNIQUE: Multiaxial CT images of the right forearm were performed and reformatted in the sagittal a nd coronal plane without the use of contrast. A dose lowering technique was utilized adhering to the principles of ALARA. COMPARISON: None. FINDINGS: No acute fracture or dislocation within the right forearm. 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 No significant elbow effusion. Extensive posterior media l subcutaneous edema within the forearm. No loculated collection to suggest a hematoma. There is also skin thickening seen within the anterior forearm. No intramuscular hematoma identified. A few vascul ar calcifications are noted. IMPRESSION: 1. No acute fracture or dislocation within the right forearm. 2. Extensive posterior/medial subcutaneous edema within the forearm. No definite hematoma. ACT 112: Negative or not required by law. Electronically signed by: Jeremy Moran M.D. 12/14/2020 12:05 PM
[2020-12-14] MEDS: INSULIN GLARGINE SOLOSTAR 100 UNITS/ML 3 ML PEN SC SCH (21:18)
[2020-12-15] MEDS: HEPARIN 100 UNIT/ML 5ML FLUSH FLUSH PRN (05:28)
[2020-12-15 05:44] LABS: Mean Corpuscular Hgb Conc 29.3 g/dL (32-36); Nucleated RBC # (auto) 0.04 K/uL (0-0); Nucleated RBC % (auto) 0.7 %
[2020-12-15 05:53] LABS: Hematocrit (blood only) 33.8 % (37-47); Hemoglobin 9.9 g/dL (12.0-16.0); Mean Corpuscular Hemoglobin 27.6 pg (25-34); Mean Corpuscular Volume 94.2 fL (80-100); RDW Coefficient of Variation 19.6 % (11.5-14.5); RDW Standard Deviation 64.3 fL (36.4-46.3); Red Blood Count 3.59 M/uL (4.2-5.4)
[2020-12-15] MEDS: LEVOTHYROXINE SODIUM 25 MCG TABLET PO SCH (06:01)
[2020-12-15 06:05] LABS: Platelet Count 79 K/uL (130-400); Prothrombin Time 10.6 Seconds (9.0-12.0)
[2020-12-15 06:07] LABS: Basophils # (auto) 0.02 K/uL (0-0.2); Basophils % (auto) 0.4 %; Eosinophils # (auto) 0.09 K/uL (0-0.5); Eosinophils % (auto) 1.7 %; Immature Granulocytes % (auto) 1.9 %; Lymphocytes # (auto) 0.99 K/uL (1.2-3.4); Monocytes # (auto) 0.39 K/uL (0.11-0.59); Monocytes % (auto) 7.5 %; Neutrophils # (auto) 3.61 K/uL (1.4-6.5); Neutrophils % (auto) 69.5 %; Platelet Estimate Decreased (Normal); Polychromasia 1+; Stomatocytes 1+; Tear Drop Cells Occasional
[2020-12-15 06:09] LABS: Albumin Level 3.2 gm/dl (3.4-5.0); BUN Creatinine Ratio 20.5 (10-20); Calcium 8.8 mg/dl (8.5-10.1); Creatinine Clr Calc Pharmacy 19.2 ml/min; Est GFR (African American) 21.4 ml/min; Est GFR (Non-African American) 18.5 ml/min
[2020-12-15 06:12] LABS: Albumin Globulin Ratio 1.1 (0.9-2); Bilirubin,Total 1.2 mg/dl (0.2-1); Globulin 2.9 gm/dl (2.5-4.0); Total Protein 6.1 gm/dl (6.4-8.2)
[2020-12-15] MEDS: predniSONE 2.5 MG TAB PO SCH (09:25)
[2020-12-15] MEDS: POTASSIUM CHLORIDE CRTAB 20 MEQ TABCR PO SCH ×2 (09:25→21:27)
[2020-12-15] MEDS: METOPROLOL TARTRATE 25 MG TAB PO SCH ×2 (09:25→21:27)
[2020-12-15] MEDS: FAMOTIDINE 20 MG TAB PO SCH ×2 (09:25→21:27)
[2020-12-15] MEDS: AMOXICILLIN 500 MG CAP PO SCH ×2 (09:25→21:27)
[2020-12-15] MEDS: FERROUS SULFATE 325 MG TAB PO SCH (09:25)
[2020-12-15] MEDS: APIXABAN 2.5 MG TAB PO SCH ×2 (09:25→21:27)
[2020-12-15] MEDS: THIAMINE HCL 100 MG TAB PO SCH (09:25)
[2020-12-15] MEDS: CLOPIDOGREL BISULFATE 75 MG TAB PO SCH (09:25)
[2020-12-15] MEDS: busPIRone 5 MG TAB PO SCH ×2 (09:26→21:26)
[2020-12-15] MEDS: ESCITALOPRAM OXALATE 10 MG TAB PO SCH (09:28)
[2020-12-15] MEDS: INSULIN ASPART 100 UNITS/ML 3 ML PEN SC SCH ×4 (09:34→21:31)
--- NOTE | 2020-12-15 12:36 | Pharmacy Report ---
Pharmacy Glycemic Short Note 2 - Date of Service December 15, 2020 - Glycemic Short BSG Results (Last 24 hours): 12/14/20 12/14/20 12/15/20 17:15 20:45 05:27 Glucose 120 H POC Glucose 198 H 187 H 12/15/20 12/15/20 08:21 12:15 Glucose POC Glucose 135 H 161 H OUTPATIENT ANTIDIABETIC REGIMEN: * Humalog 15 units TID * 6.7% 11/25/20 ASSESSMENT: 12/15 * Stressors stable * AM fasting BSG in goal range - no change * Post prandial BSG's elevated yesterday x3 - will tighten CHO ratio 12/14: * Patient received total of 28 units of insulin yesterday; 10 units basal + 18 units bolus. * Fasting BSG = 126 mg/dl. Will increase Lantus dose slightly tonight. * Post-prandial BSGs were elevated yesterday. Novolog parameters tightened this AM. * Of note, pt's serum creatinine has been trending up, will adjust insulin doses carefully. Pt's diet intake has improved. 12/12: * Patient initiated on a low dose basal/bolus regimen last evening. BSGs trended down nicely with the patient receiving a total of 15 units of insulin yesterday, 10 of which were basal. * Patient was continued on home low dos prednisone and is tolerating a diet. PLAN FOR INPATIENT GLYCEMIC CONTROL: * Basal insulin * Lantus 12 units SQ HS * Bolus insulin * NovoLog per scale ACHS or Q6hrs while NPO * Goal Range: Low 110 mg/dL - High 140 mg/dL * Correction Factor: 25 mg/dL/unit * Nutritional / Prandial insulin per carb ratio of 1 unit per 7 grams CHO consumed
--- NOTE | 2020-12-15 17:53 | Hospitalist Progress Note ---
Date of Service December 15, 2020 Assessment & Plan (1) Acute UTI (urinary tract infection): Blood per rectum: - As per HPI: HEME positive in ER (seen earlier that AM with reported blood from urethra, later in day again for blood in stool) - Secondary to possible fall/injury on eliquis - Patient with NO FURTHER BLEEDING REPORTED -- reports soft, formed bowel movement last night without blood - Hgb has been stable and at baseline (~10) GI Consulted -- no plans for scope and discontinued bowel prep at this time -- continue oral iron supplementation (iron was 38 in September 2020, repeat 101 but did get blood in past month). B12 wnl 708 /folate wnl >20 Eliquis held initially giving bleeding but resumed 12/12, --> LOWERED TO 2.5MG PO BID DOSING after discussion with nephrology (age almost 81 this January) given bleeding Hematuria/UTI/cystitis: - Urology consulted for hematuria (also noted evidence of cystitis/thickened bladder wall on CTAP) UA RBC >30 - No further bleeding reported. cytology pending, plan for outpt cysto - Continue Amoxicillin; last dose scheduled for tomorrow, 12/16 - Patient to have follow up with Urology for outpatient cysto CHF (congestive heart failure) -- Acute on chronic heart failure with reduced ejection fraction - Echo September 19, 2020 showed left ventricular systolic function borderline reduced at 45-50%, distal septal hypokinesis. Difficult to exclude additional regional wall motion abnormalities. There is mild concentric left ventricular hypertrophy. The right ventricle is mildly dilated. The right ventricular systolic function is mildly reduced. The left atrium is moderately dilated. The right atrium is mild to moderately dilated. There is mild mitral annular calcification. Right ventricular systolic pressure is elevated 40 to 50 mmHg. Compared to echo from December 2019, minimal change -- Repeat echocardiogram with left ventricular systolic function unchanged from previous : EF 45 to 50%, severely hypokinetic septum, right ventricle mildly dilated, right ventricular systolic function mildly reduced, left atrium mildly dilated, moderate mitral annular calcification, mild to moderate mitral regurgitation - Recent admission 09/2020 for acute on chronic systolic HF and required lasix 80mg IV daily, then decreased to lasix 80mg po BID, then discharged on 40mg BID due to hypernatremia. Noted that on 09/26/2020 she was doing well with continued diuresis at a weight of 81.8 kg and discharged at 79.9kg on 09/30/20 - On admission for this hospitalization, due to admitted to increased lower extremity edema to her thighs, shortness of breath, decreased appetite and difficulty laying flat. Wt up on admission in 90kg range, baseline closer to 79.9kg. BNP was obtained at that time and found to be 10,168. CXR with re- demonstration of stable cardiomegaly and possible pulmonary edema. Interval worsening/redistribution bilateral pleural effusion.. troponin 0.045-->0.049--> 0.047 --suspect demand secondary to volume overload - Cardiology also consultation , continue diuretics - Discussed with CHF clinic and will place formal consultation as patient would benefit from close monitoring of her weights and adjustment of diuretics given repeat hospitalizations for CHF - Continue metoprolol 25 mg twice daily - Maintain heart healthy 1500 mL fluid restriction diet - Continue daily standing scale weights - Received Lasix to 60mg IV BID yesterday but discontinued today - Plan to restart home Lasix tomorrow - Continue to monitor - Awaiting PT/OT eval Coronary artery disease: - Plavix was recently restarted on previous admission, is not on ASA for primary prevention - Extensive cardiac history including stents - Plavix held on admission but restarted 12/14; continue to monitor platelets - Continue Metoprolol 25 mg twice daily - Minimal troponin elevation secondary to demand as above; patient denies any CP Afib: - Paroxysmal, history ablation with DDD pacemaker - Rate controlled as above with metoprolol twice daily - Eliquis at 2.5 mg by mouth twice daily restarted today Right Forearm Ecchymosis: - Suspected due to reported fall [employer] on Eliquis - NVI at this time, pulses palpable, no tenderness to palpation - CT forearm w/o contrast 12/14 with no definitive hematoma - Continue ice, elevation, and supportive care Diabetes: - A1c 6.5, well controlled - Pharmacy for glycemic management while managing the above problems Shortness of breath, resolved - CXR 12/11 --IMPRESSION: Re-demonstration of stable cardiomegaly and possible pulmonary edema. Interval worsening/redistribution bilateral pleural effusion. (compared to exam November 24, 2020) - Patient with chronic respiratory failure on 3 L via nasal cannula; on baseline O2 at this point. - Suspect improvement with diuresis as noted above. Diuresis stopped today, 5/24, due to elevation in Cr. Plan to restart home lasix tomorrow AM - Continued on her Combivent inhaler - Encourage CPAP use when sleeping/napping Polymyalgia rheumatica: - Continue Tylenol and prednisone 2.5 mg daily (contributing to wt gain/edema as well) Pancytopenia: - Peripheral smear pending - Hgb as above - Monitor CBC qAM Hyphema of left eye: - Patient reports she poked herself in her left eye a week ago while cleaning her eye - does not involve the iris; vision to eye intact and no pain - Continue to monitor DVT Proph: Wanda, SCDs Dispo: continued inpatient stayr (2) Pancytopenia: (3) Heme positive stool: (4) Hematuria: (5) Afib: (6) Oxygen dependent: (7) CHF (congestive heart failure): Admission and Anticipated Discharge Date Admission Date: December 10, 2020 Supervising Physician Co-Signing Physician Notes I personally examined the patient and verified all [place] points of history and exam, discussed case, and agree with decision making with Dr Gates. Feeling better overall. Discussed plan. Answered all questions to the best of my ability. notes that occasionally she gets confused about what room she is in, also notes that social isolation during Covid has really caused her to decline. She also notes that she has not gotten the vaccine because she is not sure about how safe it is. Vitals noted, in general she is awake and alert pleasant no distress. HEENT normocephalic atraumatic mucous membranes moist. Breathing unlabored no accessory muscle use good effort. Skin shows no rashes no pallor or icterus. Neuro shows no focal deficits. Bright red blood per rectumhemodynamically stable, hemoglobin appearing overall stable, will resume apixaban tonight, as long as she does not show any rebleeding and her hemoglobin stays stable, likely home tomorrow. Acute on chronic combined systolic and diastolic CHFcompensated. Probably slightly dry at this point, hold diuresis today, resume p.o. tomorrow. Health maintenancediscussed Covid vaccines in depth, and answered all questions to the best my ability. Given her risk level and her social isolation, encouraged her to be vaccinated, as it appears that the benefits would largely outweigh the risk. Subjective Patient seen and evaluated at bedside this morning. Overall feeling well today. Does report persistent intermittent dysuria but states that it has improved since admission. Eating well. Denies SOB, CP, LEOS, lightheadedness, dizziness, abdominal pain, n/v. Review of Systems Review of Systems: See HPI Physical Exam Physical Exam: GENERAL: No acute distress. Well developed and well nourished. Vital signs reviewed as above. A/O x3. EYES: EOMI. Anicteric sclerae. Erythema to left cornea but patient denies changes in visual acuity. HENT: Moist mucous membranes. RESPIRATORY: Clear to auscultation bilaterally. No wheezing, rales, or rhonchi. CARDIOVASCULAR: Regular rate and irregularly irregular rhythm. No murmurs. ABDOMEN: Soft, non-tender and non-distended. Normal bowel sounds. EXTREMITIES: Large ecchymosis to right forearm, non-tender, mild surrounding swelling. NVI. Good distal pulse. BLE with 1-2+ pitting edema to knees. SKIN: Warm, dry. NEUROLOGIC: No focal neurological deficits. PSYCHIATRIC: Cooperative. Appropriate mood and affect. Results & Data Results & Data ([facility]) Vital Signs (Past 12 Hours) Vital Signs Temp Pulse Pulse Resp BP Pulse Ox 12/15/20 16:23 37.1 C 70 16 146/80 H 100 12/15/20 09:20 70 18 108/62 97 12/15/20 07:30 36.6 C 70 18 96/58 L 96 Resident Activity Tracking Resident Involvement: Resident Care Provided Care Provided: Adult Hospital Medicine (1) Hematuria Hematuria type: gross Qualified Code(s): R31.0 - Gross hematuria (2) CHF (congestive heart failure) Heart failure chronicity: chronic Heart failure type: unspecified Qualified Code(s): I50.9 - Heart failure, unspecified (3) Afib Atrial fibrillation type: unspecified Qualified Code(s): I48.91 - Unspecified atrial fibrillation
--- NOTE | 2020-12-15 18:45 | Billing Data ---
Date of Service December 15, 2020 Coding Level of Care Code 72567 Subseq Hosp Care Lvl 3
[2020-12-15] MEDS: INSULIN GLARGINE SOLOSTAR 100 UNITS/ML 3 ML PEN SC SCH (21:30)
[2020-12-16] MEDS: HEPARIN 100 UNIT/ML 5ML FLUSH FLUSH PRN (05:43)
[2020-12-16] MEDS: LEVOTHYROXINE SODIUM 25 MCG TABLET PO SCH (05:52)
[2020-12-16 06:21] LABS: Mean Corpuscular Hgb Conc 29.4 g/dL (32-36); Nucleated RBC # (auto) 0.03 K/uL (0-0); Nucleated RBC % (auto) 0.6 %
[2020-12-16 06:57] LABS: BUN Creatinine Ratio 22.2 (10-20); Calcium 8.5 mg/dl (8.5-10.1); Creatinine Clr Calc Pharmacy 20.4 ml/min; Est GFR (African American) 23.2 ml/min; Potassium 5.6 mmol/L (3.5-5.1)
[2020-12-16 07:31] LABS: Basophils # (auto) 0.01 K/uL (0-0.2); Basophils % (auto) 0.2 %; Eosinophils # (auto) 0.13 K/uL (0-0.5); Eosinophils % (auto) 2.6 %; Hematocrit (blood only) 32.6 % (37-47); Hemoglobin 9.6 g/dL (12.0-16.0); Immature Granulocytes # (auto) 0.09 K/uL (0.00-0.02); Immature Granulocytes % (auto) 1.8 %; Lymphocytes # (auto) 0.95 K/uL (1.2-3.4); Lymphocytes % (auto) 19.1 %; Mean Corpuscular Hemoglobin 27.7 pg (25-34); Mean Corpuscular Volume 94.2 fL (80-100); Monocytes # (auto) 0.47 K/uL (0.11-0.59); Monocytes % (auto) 9.4 %; Neutrophils # (auto) 3.33 K/uL (1.4-6.5); Neutrophils % (auto) 66.9 %; Platelet Count 83 K/uL (130-400); Platelet Estimate Decreased (Normal); RBC Morphology Unremarkable; RDW Coefficient of Variation 20.1 % (11.5-14.5); RDW Standard Deviation 65.6 fL (36.4-46.3); Red Blood Count 3.46 M/uL (4.2-5.4); White Blood Count 4.98 K/uL (4.8-10.8)
[2020-12-16] MEDS: INSULIN ASPART 100 UNITS/ML 3 ML PEN SC SCH ×2 (08:57→13:00)
[2020-12-16] MEDS: AMOXICILLIN 500 MG CAP PO SCH (09:39)
[2020-12-16] MEDS: busPIRone 5 MG TAB PO SCH (09:39)
[2020-12-16] MEDS: METOPROLOL TARTRATE 25 MG TAB PO SCH (09:40)
[2020-12-16] MEDS: ESCITALOPRAM OXALATE 10 MG TAB PO SCH (09:40)
[2020-12-16] MEDS: FAMOTIDINE 20 MG TAB PO SCH (09:40)
[2020-12-16] MEDS: APIXABAN 2.5 MG TAB PO SCH (09:40)
[2020-12-16] MEDS: predniSONE 2.5 MG TAB PO SCH (09:42)
[2020-12-16] MEDS: THIAMINE HCL 100 MG TAB PO SCH (09:43)
[2020-12-16] MEDS: FERROUS SULFATE 325 MG TAB PO SCH (09:43)
[2020-12-16] MEDS: CLOPIDOGREL BISULFATE 75 MG TAB PO SCH (09:43)
[2020-12-16] MEDS: POTASSIUM CHLORIDE CRTAB 20 MEQ TABCR PO SCH (10:31)
[2020-12-16] MEDS: FUROSEMIDE 40 MG TAB PO SCH (11:03)
--- NOTE | 2020-12-16 11:35 | Discharge Summary ---
Date of Service December 16, 2020 Admission HPI Per Admitting Provider 80 YOF with past medical history of HFrEF, CAD, CKD IV, afib with ablation and ICD, dementia, COPD on chronic oxygen 3L and BiPAP, PMR on prednisone, DM2 on insulin, diffuse B cell lymphoma with Mediport, depression. Patient recently discharged on 11/26/2020 following admission for melena, where she had an EGD performed and Colonoscopy was waived at that time secondary to intolerance to complete the bowel prep or tolerate a colonoscopy. Her EGD was normal at that time. Patient comes to the emergency room today for complaints of blood per rectum and on hand. She originally thought this was coming from her vagina. She has a history of hysterectomy. She was evalauted in the EMD and had a CXR done as well as CT of the abdomen and pelvis. Patient states that for the past 3-4 days she has been experiencing cramping abdominal pain to her lower abdomen, and that she has also been noticing "allot" of blood in the toilet afterwards. She endorses some dizziness yesterday. In the ER she has been with a HR in the 70s and SBP > 120, with no reports of blood or any bowel movements. She is on her chronic oxygen NC with SPo2 of 100%. Her HGB and HCT are stable at 9.8, where she is normally ~ 10-10.5. She is warm and well perfused with no evidence of shock, her renal function is improved. Patient will be admitted for monitoring of her melena or maxim blood from her rectum. Her plavix and her Eliquis will again be held until her picture becomes more clear. GI has been consulted. Admission Exam Per Admitting Provider General: awake, alert, no apparent distress Head: Normocephalic, atraumatic ENT: PERRLA, Hyphema to left eye not involving the Iris, EOMI, no pharyngeal exudate, mucous membranes moist Neuro: AAO x 3, speech clear and appropriate, strength intact bilaterally 5/5, sensation intact and equal all extremities and dermatomes, no pronator drift Chest: equal rise and fall of the chest, no accessory muscle use, no heaves or thrills, scattered crackles throughout, diminished in the bases bilaterally, on 3L NC Cardiac: Vpace rhythm, telemetry reviewed, skin warm dry, cap refill <3 seconds, peripheral pulses +2 no JVD, no murmur, +2 edema bilaterally to lower extremities and feet to just below the knee GI: NABS x 4 quadrants, soft, nontender to palpation, no rebound, guarding or tenderness : Spontaneously voiding, no pain, no CVA tenderness, Extremities: Normal inspection, or erythema, calfs nontender to palpation Psych: Normal mood and affect Skin: no rash or erythema Principal Diagnosis blood per rectum, UTI Discharge Exam GENERAL: No acute distress. Well developed and well nourished. Resting comfortably sitting up, supine, in bed. EYES: EOMI. HENT: Moist mucous membranes. No pharyngeal erythema or exudates. No cervical lymphadenopathy. RESPIRATORY: No respiratory distress. Able to speak in full sentences without increased work of breathing. ABDOMEN: Soft, non-tender and non-distended. Normal bowel sounds. EXTREMITIES: 1-2+ BLE. Non-tender. SKIN: Warm, dry. NEUROLOGIC: A/O x3. 5/5 bilateral fitness coordinator strength. No focal neurological deficits. PSYCHIATRIC: Cooperative. Appropriate mood and affect. Discharge Data Allergies Allergy/AdvReac Type Severity Reaction Status Date / Time eptifibatide Allergy Severe ANAPHYLAXIS Verified 12/10/20 14:15 hornet venom Allergy Severe WASP VENOM Verified 12/10/20 14:15 PROTEIN-ANAPHYLAXIS levofloxacin [From Levaquin] Allergy Severe Hives Verified 12/10/20 14:15 atorvastatin Allergy Intermediate MUSCLE PAIN Verified 12/10/20 14:15 ezetimibe Allergy Intermediate MUSCLE PAIN Verified 12/10/20 14:15 simvastatin Allergy Intermediate MUSCLE PAIN Verified 12/10/20 14:15 rosuvastatin [From Crestor] Allergy Rash Verified 12/10/20 14:15 amlodipine AdvReac Severe Nausea Verified 12/10/20 14:15 azithromycin AdvReac Intermediate Palpitation Verified 12/10/20 14:15 s cortisone AdvReac Intermediate INCREASES Verified 12/10/20 14:15 SUGAR AND VOMITING? hydralazine AdvReac Intermediate VOMITING Verified 12/10/20 14:15 ibuprofen AdvReac Intermediate VOMITING Verified 12/10/20 14:15 AND DIARRHEA iodine AdvReac Intermediate SHELLFISH Verified 12/10/20 14:15 - VOMITING shellfish derived AdvReac Intermediate VOMITING Verified 12/10/20 14:15 Sulfa (Sulfonamide AdvReac Intermediate VOMITING Verified 12/10/20 14:15 Antibiotics) warfarin AdvReac Intermediate EXTREME Verified 12/10/20 14:15 BLEEDING TIMES codeine AdvReac Mild VOMITING Verified 12/10/20 14:15 gemfibrozil AdvReac Mild NAUSEA Verified 12/10/20 14:15 meperidine AdvReac Mild VOMITING Verified 12/10/20 14:15 ondansetron AdvReac Mild vomiting Verified 12/10/20 14:15 ranitidine [From Zantac] AdvReac Mild dyspepsia Verified 12/10/20 14:15 Consultations 12/10/20 14:35 ED Decision to Admit Stat 12/10/20 20:28 Consult Gastroenterology Routine 12/11/20 08:24 Consult Urology Routine 12/11/20 13:11 Consult Cardiology Routine 12/12/20 15:27 [facility] CHF Program Referral Routine Ordered Studies 12/10/20 13:37 CT head/brain wo con Stat 12/11/20 13:38 US carotid doppler BI Routine 12/13/20 09:39 US gallbladder Routine 12/14/20 09:31 CT forearm RT wo con Urgent Hospital Course (1) Acute UTI (urinary tract infection): Blood per rectum: - As per HPI: HEME positive in ER (seen earlier that AM with reported blood from urethra, later in day again for blood in stool) - Secondary to possible fall/injury on eliquis - Patient with NO FURTHER BLEEDING REPORTED -- reports soft, formed bowel movement last night without blood - Hgb has been stable and at baseline (~10) GI Consulted -- no plans for scope and discontinued bowel prep at this time -- continue oral iron supplementation (iron was 38 in September 2020, repeat 101 but did get blood in past month). B12 wnl 708 /folate wnl >20 Eliquis held initially giving bleeding but resumed 12/12, --> LOWERED TO 2.5MG PO BID DOSING after discussion with nephrology (age almost 81 this January) given bleeding Hematuria/UTI/cystitis: - Urology consulted for hematuria (also noted evidence of cystitis/thickened bladder wall on CTAP) UA RBC >30 - No further bleeding reported. cytology pending, plan for outpt cysto - Treated with 5 day course of Amoxicillin; last dose 12/16 - Patient to have follow up with Urology for outpatient cysto CHF (congestive heart failure) -- Acute on chronic heart failure with reduced ejection fraction - Echo September 19, 2020 showed left ventricular systolic function borderline reduced at 45-50%, distal septal hypokinesis. Difficult to exclude additional regional wall motion abnormalities. There is mild concentric left ventricular hypertrophy. The right ventricle is mildly dilated. The right ventricular systolic function is mildly reduced. The left atrium is moderately dilated. The right atrium is mild to moderately dilated. There is mild mitral annular calcification. Right ventricular systolic pressure is elevated 40 to 50 mmHg. Compared to echo from December 2019, minimal change -- Repeat echocardiogram with left ventricular systolic function unchanged from previous : EF 45 to 50%, severely hypokinetic septum, right ventricle mildly dilated, right ventricular systolic function mildly reduced, left atrium mildly dilated, moderate mitral annular calcification, mild to moderate mitral regurgitation - Recent admission 09/2020 for acute on chronic systolic HF and required lasix 80mg IV daily, then decreased to lasix 80mg po BID, then discharged on 40mg BID due to hypernatremia. Noted that on 09/26/2020 she was doing well with continued diuresis at a weight of 81.8 kg and discharged at 79.9kg on 09/30/20 - On admission for this hospitalization, due to admitted to increased lower extremity edema to her thighs, shortness of breath, decreased appetite and difficulty laying flat. Wt up on admission in 90kg range, baseline closer to 79.9kg. BNP was obtained at that time and found to be 10,168. CXR with re- demonstration of stable cardiomegaly and possible pulmonary edema. Interval worsening/redistribution bilateral pleural effusion.. troponin 0.045-->0.049--> 0.047 --suspect demand secondary to volume overload - Cardiology consulted. - Discussed with CHF clinic and will place formal consultation as patient would benefit from close monitoring of her weights and adjustment of diuretics given repeat hospitalizations for CHF -- Encourage outpatient CHF clinic follow up - Continue metoprolol 25 mg twice daily - Maintain heart healthy 1500 mL fluid restriction diet - Continue daily standing scale weights - Received Lasix to 60mg IV BID 12/14 - Restarted on home lasix 12/16 Hyperkalemia - Patient with hyperkalemia, K 5.6, on day of discharge - Suspect secondary to diuresis and potassium supplementation - Recommend repeat BMP in 2 days prior to PCP f/u. Patient instructed to go to lab prior to PCP hospital f/u. Order placed in EMR. Coronary artery disease: - Plavix was recently restarted on previous admission, is not on ASA for primary prevention - Extensive cardiac history including stents - Plavix held on admission but restarted 12/14; continue to monitor platelets - Continue Metoprolol 25 mg twice daily - Minimal troponin elevation secondary to demand as above; patient denies any CP Afib: - Paroxysmal, history ablation with DDD pacemaker - Rate controlled as above with metoprolol twice daily - Eliquis at 2.5 mg by mouth twice daily (dose decreased as noted above) Right Forearm Ecchymosis: - Suspected due to reported fall 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 Interval worsening/redistribution bilateral pleural effusion. (compared to exam November 24, 2020) - Patient with chronic respiratory failure on 3 L via nasal cannula; on baseline O2 at this point. - Suspect improvement with diuresis as noted above. Diuresis stopped today, 12/15, due to elevation in Cr. Restarted home lasix 12/16 on day of discharge. - Continued on her Combivent inhaler - Encourage CPAP use when sleeping/napping Polymyalgia rheumatica: - Continue home Tylenol and prednisone 2.5 mg daily (contributing to wt gain/edema as well) Pancytopenia: - Hgb stable around 10 - Peripheral smear report: "The peripheral smear is remarkable for a normocytic anemia, thrombocytopenia, and lymphopenia. The granulocytes are somewhat left- shifted and there are rare nucleated red cells. This mild leukoerythroblastosis picture can be seen in reactive conditions and marrow occupying diseases. While I can't exclude a marrow disorder such as involvement by the patient's DLBCL or early myelodysplasia, I recommend ruling out all other causes of the patient's cytopenias before pursuing potential marrow etiologies. Please correlate clinically. - Carolina Hart MD" - Recommend repeat CBC in 1 week Hyphema of left eye: - Patient reports she poked herself in her left eye a week ago while cleaning her eye - Does not involve the iris; vision to eye intact and no pain. Monitor as needed. Health maintenance: Discussed COVID vaccines in depth, and answered all questions to the best of our ability. Given her risk level and her social isolation, encouraged her to be vaccinated, as it appears that the benefits would largely outweigh the risk. Patient does feel that she wants to get the vaccine. Recommend outpatient follow up for this matter. (2) Pancytopenia: (3) Heme positive stool: (4) Hematuria: (5) Afib: (6) Oxygen dependent: (7) CHF (congestive heart failure): Total Time Total Time Spent Total Time Spent (In Minutes): <30 Discharge Plan Discharge Items Patient Disposition: Home - Home Health Services Reason For Visit: R/O GI BLEED Discharge Diagnosis: blood per rectum, UTI, CHF Activity: Resume your previous activity Non-emergency contact: Primary Care Provider and Coverstitch Elastic Attacher Call non-emergency contact if: you have any medication questions, your symptoms worsen and your pain is concerning for you Follow-up/Referrals: Gopi Figueroa MD [Physician] - (Dr. Guzman office will be contacting you to schedule a follow up appointment.) Lizet Yadav DO [Primary Care Provider] - 12/18/20 10:10 am Gissell Tristan PA-C [Physician Clinical Medical Transcriptionist] - 12/18/20 10:30 am (Congestive Heart Failure Program Appointment Information Early follow up is essential to managing your heart failure. An appointment has been scheduled for you with the [facility] within 7 days of discharge. Anticipate this visit to be 30-60 minutes long. Please expect a hot baller phone call from one of our nurses approximately 48 hours from discharge. They will also be placing an order for lab work to be completed 1-2 days prior to your heart failure follow up appointment. Please be sure to have this done so we can go over the results when you come in. Office Location The cardiology office building is located in front of the hospital at [address] Bring the following with you to your follow-up doctor appointments: Please bring your daily weight log any discharge paperwork all of your medication bottles with you to this visit. ) Diet: Carb Consistent or DM2 Ambulatory Orders: Basic Metabolic Panel (Routine) Timeframe: 2 Days Location: Determined by Patient Ordered By: Nisa Henderson Attending Provider Instructions: Mrs. Hagen, it was our pleasure to care for you at [facility] from 12/10/20 to 12/16/20. You initially presented to the emergency department with concerns of blood from the rectum and blood in the urine. You were diagnosed with a UTI and treated with an antibiotic for 5 days; YOU HAVE ONE DOSE LEFT OF AMOXICILLIN THAT YOU NEED TO TAKE TONIGHT; THIS MEDICATION WAS SENT TO YOUR PHARMACY. You were evaluated by urology who has recommended follow up as outpatient for further evaluation and studies. Please follow up with Dr. Figueroa, urology, in 1-2 weeks. You were also treated for worsening congestive heart failure during this hospitalization with diuresis. Please follow up with the congestive heart failure clinic. PLEASE GET REPEAT BLOOD WORK (BMP) PRIOR TO FOLLOW UP WITH YOUR PRIMARY CARE DOCTOR. YOU HAVE AN APPOINTMENT SCHEDULED WITH YOUR FAMILY DOCTOR, DR. YADAV, FOR HOSPITAL FOLLOW UP ON 12/18/20 at 10:10 AM. Beatriz Family Preservation Officer Provider Instructions: Call your Primary Care doctor if any of the following symptoms or problems start or get worse: * Shortness of breath or difficulty breathing * Wake up at night short of breath * Chest pain * Cough * Swelling of your hands, feet, or legs * More fatigued or tired with your normal activity * Palpitations - sudden fast heart beats WEIGHT * Weigh yourself every morning after using the bathroom. * Use the same scale. * Wear the same amount of clothing. * Write your weight down on a chart. * Call your Primary Care doctor if you gain more than 2-3 pounds in 1-2 days. MEDICATIONS * Use this discharge instruction sheet for medication instructions. * Take your medications at the time your doctor ordered. * Do not skip a dose of your medicines. * If you miss a dose of medicine, take it as soon as possible, but DO NOT DOUBLE A DOSE. * Read your medicine information when you get home. * Know all of the side effects of your medicine. If in doubt, ask your pharmacist * Call your Primary Care doctor's office if you have any side effects. * Be sure all of your doctors know what medicine and herbs you take (including cold, flu, and herbal medicine). Take the following with you to your follow-up doctor appointments: * Weight Chart * Medication List * List of questions Do not drink excessive alcohol, beer or wine. Pending Studies at Discharge: No Stand-Alone Forms: My [facility], Smoking Cessation Medications and DC Order Prescriptions: New Eliquis 2.5 mg Tablet 2.5 mg PO BID 30 Days Qty: 60 RF: 0 thiamine HCl (vitamin B1) [Vitamin B-1] 100 mg Tablet 100 mg PO QAM 30 Days Qty: 30 RF: 0 ferrous sulfate 325 mg (65 mg iron) Tablet,Delayed Release (Dr/Ec) 325 mg PO QAM 30 Days Qty: 30 RF: 0 amoxicillin 500 mg Capsule 500 mg PO ONCE Qty: 1 RF: 0 Continued nitroglycerin 0.4 mg tablet, sublingual 0.4 mg SL Q5M PRN (Reason: Chest Pain) Qty: 25 RF: 0 acetaminophen 325 mg tablet 325 mg PO Q4H PRN (Reason: Fever) RF: 0 sennosides [Senokot] 8.6 mg tablet 8.6 mg PO QAM PRN (Reason: Constipation) RF: 0 multivitamin Tablet 1 tab PO QAM RF: 0 levothyroxine [Synthroid] 25 mcg tablet 25 mcg PO QAM RF: 0 escitalopram oxalate 5 mg tablet 5 mg PO QAM RF: 0 prednisone 5 mg tablet 2.5 mg PO DAILY RF: 0 potassium chloride 10 mEq tablet extended release 10 meq PO BID RF: 0 allopurinol 100 mg tablet 200 mg PO QAM RF: 0 insulin lispro [Humalog KwikPen Insulin] 100 unit/mL insulin pen 15 unit subcut TID RF: 0 furosemide 20 mg tablet 40 mg PO DAILY Qty: 0 RF: 0 buspirone 10 mg tablet 10 mg PO BID RF: 0 albuterol sulfate 2.5 mg /3 mL (0.083 %) Solution For Nebulization 2.5 mg continuous nebulization Q6H PRN (Reason: Wheezing) RF: 0 ipratropium-albuterol 0.5 mg-3 mg(2.5 mg base)/3 mL Solution For Nebulization 3 ml INHALATION Q6H PRN (Reason: Shortness Of Breath Or Wheezing) RF: 0 ergocalciferol (vitamin D2) 1,250 mcg (50,000 unit) capsule 50,000 unit PO WK RF: 0 metoprolol tartrate 50 mg tablet 25 mg PO BID RF: 0 famotidine 20 mg tablet 20 mg PO BID RF: 0 clopidogrel 75 mg tablet 75 mg PO QAM RF: 0 Discontinued Eliquis 5 mg tablet 5 mg PO BID Qty: 60 RF: 11 cefdinir 300 mg capsule 300 mg PO DAILY 6 Days Qty: 6 RF: 0 Discharge Orders: Discharge Order (Routine); Ordered 12/16/20 Ordered By: Nisa Yuen/Other Patient Handouts: High Blood Sugar (Hyperglycemia), Hypoglycemia (Low Blood Sugar), Managing Type 2 Diabetes, A1C Admission Data Admit Date/Time: 12/10/20 16:12 Attending Provider: Raad Villegas Admit Provider: Zachery Lomeli Primary Care Provider: Lizet Yadav Other Providers: Zachery Lomeli ; Alvin Blunt ; [facility] ; Zack Mir ; Balbir Ibanez ; Gissell Tristan Other Interventions: Discharge Summary Assessment (RN) Last Done: 12/16/20 12:44 Supervising Physician Co-Signing Physician Notes I personally examined the patient and verified all [place] points of history and exam, discussed case, and agree with decision making with Dr Gates. Feels up to going home. No new complaints otherwise. Vitals noted, in general she is awake and alert pleasant no distress. HEENT normocephalic atraumatic mucous membranes moist. Breathing unlabored no accessory muscle use good effort. Skin shows no rashes no pallor or icterus. Neuro shows no focal deficits. Bright red blood per rectumhemodynamically stable, hemoglobin appearing overall stable, resumed apixabanno bleeding. Safe for home. Outpatient follow-up. Acute on chronic combined systolic and diastolic CHFcompensated. safe for home. sl hyperkalemia - reduce PO KCL, BMP in ~2 days. Health maintenance on 12/15 discussed Covid vaccines in depth, and answered all questions to the best my ability. Given her risk level and her social isolation, encouraged her to be vaccinated, as it appears that the benefits would largely outweigh the risk. stable for home Resident Activity Tracking Resident Involvement: Resident Care Provided Care Provided: Adult Hospital Medicine
--- NOTE | 2020-12-16 19:40 | Billing Data ---
Date of Service December 16, 2020 Coding Level of Care Code D/C Day Management <30 mins Comment disregard [id number], entered in error
--- NOTE | 2020-12-16 19:40 | Billing Data ---
Date of Service December 16, 2020 Coding Level of Care Code 98812 Subseq Hosp Care Lvl 2
== END 2020-12-16 14:55 | disposition home health service (06) | DRG 377 ==
LOC: ED 11:05 → 3W 16:12 → SUATTDRO 16:12 → 3W 18:08

== ENCOUNTER 2021-10-25 16:06 | Inpatient (IN) ==
--- NOTE | 2021-10-25 16:37 | Emergency Department Note ---
Impression & Plan GI bleed, Anemia ED Provider Note NAME: PING VIZCAINO AGE: 81 SEX: F : 1940 ARRIVES VIA: Walk-In INFORMANT: Patient ED PROVIDER(S): Raad Andre DO CHIEF COMPLAINT: BRBPR HPI: Patient is an 81-year-old female with a PMH of HFrEF, CAD, CKD IV, afib with ablation and ICD,dementia, COPD on chronic oxygen 3L, polymyalgia rheumatica, IDDM2, hypothyroidism who presents the ER for bright red blood per rectum. She was seen and evaluated admitted several days ago for diverticulitis with Dark tarry stools. She was just discharged yesterday. She had an upper endoscopy which was unremarkable. Her hemoglobins have been stable. She was on antibiotics and discharged. She denies any dizziness or lightheadedness. No chest pain or shortness of breath. No dysuria, urgency, or frequency. No other exacerbating remitting factors. She admits to diffuse crampy abdominal pain which she has had since this ordeal started. ROS: See above HPI for pertinent positives & negatives. A total of 10 systems reviewed and were otherwise negative. PAST MEDICAL HISTORY:See Below PAST SURGICAL HISTORY:See Below FAMILY HISTORY:See Below SOCIAL HISTORY:See Below HOME MEDICATIONS:See Below ALLERGIES:See Below VITALS:See Below PHYSICAL EXAMINATION: GENERAL: Sitting up in bed, alert, disheveled, very anxious EYE EXAM: normal conjunctiva. PERRL and EOM's grossly intact. OROPHARYNX: no exudate, no erythema, lips, buccal mucosa, and tongue normal and mucous membranes are moist NECK: supple, no nuchal rigidity, no adenopathy, non-tender LUNGS: Clear to auscultation. Normal chest wall mechanics HEART: no murmurs, S1 normal and S2 normal ABDOMEN: abdomen soft, non-tender, normo-active bowel sounds, no masses, no rebound or guarding. UPPER EXTREMITIES: upper extremities are grossly normal. LOWER EXTREMITIES: No pitting edema. NEURO EXAM: Normal sensorium, cranial nerves II-XII grossly intact, normal speech, no gross weakness of arms, no gross weakness of legs. MEDICAL DECISION MAKING: Patient is an 81-year-old female on NOAC who presents ER for bright red blood per rectum also with passing clots. She just admitted and discharged yesterday. She had upper endoscopy which was unremarkable. Chronically on 3 L. Hemoglobin is 10 consistent with previous. BMP with a creatinine of 2.6 which consistent with previous. LFTs bilirubin and lipase was unremarkable. Patient is a positive. She has benign abdominal exam. She is taking her apixaban. She was updated bedside discussed with Dr. Roldan and admitted for further work- up. Triage Nursing notes reviewed. Limited review of prior medical records performed Vital Signs: reviewed and remarkable for no significant abnormalities Differential diagnosis: Differential diagnoses includes but is not limited to gastritis, peptic ulcer disease, GERD, gallbladder disease, pancreatitis, small bowel obstruction, acute coronary syndrome, pericarditis, ischemic bowel, irritable bowel disease, irritable bowel syndrome, appendicitis, diverticulitis, malignancy, hernia, urinary tract infection, torsion, /ectopic (if female), perforation, trauma, infectious. ER treatment provided: See below Diagnostics interpreted by me: ECG: none Cardiac Monitoring: An order was placed for continuous cardiac monitoring. The monitor shows a rate of 72 with sinus rhythm. Laboratory studies: As stated above and show below. Imaging studies: See below Consultation(s): Discussed with Dr. Roldan for further evaluation Procedures: none Critical Care: None Past Med/Surg History Medical History (Updated 10/25/21 @ 20:54 by Raad Andre DO) Acute on chronic diastolic heart failure Acute upper gastrointestinal bleeding Acute UTI (urinary tract infection) Anemia Anemia Angina pectoris Blood per rectum CHI (closed head injury) Chronic respiratory failure with hypoxia and hypercapnia COPD with acute exacerbation Depression with anxiety Diabetes Diabetic foot ulcer associated with type 2 diabetes mellitus 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) [place] (dyspnea on exertion) Dyslipidemia Elevated troponin Elevated troponin Elevated troponin I level Fall Fracture of head of left humerus Hematuria HTN (hypertension) Hypercarbia Hypertrophic cardiomyopathy apical variant Hypothyroidism Knee arthropathy Lung cancer Myocardial infarction X4 Paroxysmal A-fib Peripheral neuropathy Proteinuria Thrombocytopenia Thrombocytopenia Vitamin D deficiency Surgical History History of cardioversion MULTIPLE History of cataract surgery History of lung surgery PARTIAL LEFT LOBECTOMY (2013) Hx of brain surgery 2017 S/P FALL/INJURY; SUBSEQUENT BLOOD CLOT EVACUATION Knee joint replacement status S/P cardiac catheterization 7 TOTAL; CARDIAC STENTS X6 S/P hysterectomy S/P tonsillectomy Family History Father , Patient age 82 of stomach cancer. Cancer Heart disease Diabetes Mother , age 93 of heart issues Stroke Hypertension Heart disease Grandmother (Maternal) Coronary heart disease Stroke Family/Other Multiple sclerosis Brother Coronary heart disease Grandfather (Maternal) Heart disease Grandfather (Paternal) Diabetes Aunt Muscular dystrophy Other Gallbladder disease Kidney stones Social History Smoking Status: Never smoker Second Hand Exposure: No; Hx Alcohol Use: No Hx Substance Use: No Preferred Language: Irish Communication Ability: Effective Water Manager Required: No Beliefs That Will Affect Care: None marital status: Current Living Situation: Spouse 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al status: retired 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: Retired/Disabled - [employer] How many Children do You have: 3 other: 3 children Feels Safe at Home: Yes Assistive Devices: Oxygen - Continuous and Walker Allergies Allergies Allergy/AdvReac Type Severity Reaction Status Date / Time eptifibatide Allergy Severe ANAPHYLAXIS Verified 10/25/21 17:15 hornet venom Allergy Severe WASP VENOM Verified 10/25/21 17:15 PROTEIN-ANAPHYLAXIS levofloxacin [From Levaquin] Allergy Severe Hives Verified 10/25/21 17:15 atorvastatin Allergy Intermediate MUSCLE PAIN Verified 10/25/21 17:15 ezetimibe Allergy Intermediate MUSCLE PAIN Verified 10/25/21 17:15 simvastatin Allergy Intermediate MUSCLE PAIN Verified 10/25/21 17:15 rosuvastatin [From Crestor] Allergy Rash Verified 10/25/21 17:15 amlodipine AdvReac Severe Nausea Verified 10/25/21 17:15 azithromycin AdvReac Intermediate Palpitation Verified 10/25/21 17:15 s cortisone AdvReac Intermediate INCREASES Verified 10/25/21 17:15 SUGAR AND VOMITING? hydralazine AdvReac Intermediate VOMITING Verified 10/25/21 17:15 ibuprofen AdvReac Intermediate VOMITING Verified 10/25/21 17:15 AND DIARRHEA iodine AdvReac Intermediate SHELLFISH Verified 10/25/21 17:15 - VOMITING shellfish derived AdvReac Intermediate VOMITING Verified 10/25/21 17:15 Sulfa (Sulfonamide AdvReac Intermediate VOMITING Verified 10/25/21 17:15 Antibiotics) warfarin AdvReac Intermediate EXTREME Verified 10/25/21 17:15 BLEEDING TIMES codeine AdvReac Mild VOMITING Verified 10/25/21 17:15 gemfibrozil AdvReac Mild NAUSEA Verified 10/25/21 17:15 meperidine AdvReac Mild VOMITING Verified 10/25/21 17:15 ondansetron AdvReac Mild vomiting Verified 10/25/21 17:15 ranitidine [From Zantac] AdvReac Mild dyspepsia Verified 10/25/21 17:15 Home Meds Home Medications Medication Instructions Recorded Confirmed multivitamin 1 tab PO QAM 06/20/18 10/25/21 nitroglycerin 0.4 mg sublingual 0.4 mg SL Q5M PRN #25 tab 02/26/19 10/25/21 tablet levothyroxine 25 mcg tablet 25 mcg PO QAM 06/04/19 10/25/21 (Synthroid) sennosides 8.6 mg tablet (Senokot) 8.6 mg PO QAM PRN tab 07/07/20 10/25/21 escitalopram oxalate 5 mg tablet 5 mg PO QAM 07/20/20 10/25/21 potassium chloride 10 mEq 10 meq PO BID 08/08/20 10/25/21 tablet,extended release albuterol sulfate 2.5 mg CONTINUOUS NEBULIZATION Q6H 11/24/20 10/25/21 PRN famotidine 20 mg tablet 20 mg PO BID 11/24/20 10/25/21 ipratropium 0.5 mg-albuterol 3 mg 3 ml INHALATION Q6H PRN 11/24/20 10/25/21 (2.5 mg base)/3 mL nebulization soln buspirone 10 mg tablet 10 mg PO BID 01/10/21 10/25/21 pregabalin 25 mg capsule (Lyrica) 25 mg PO BID 04/15/21 10/25/21 allopurinol 300 mg tablet 300 mg PO QAM 07/28/21 10/25/21 insulin aspart U-100 100 unit/mL 11 unit SUBCUT .BID UD 07/28/21 10/25/21 (3 mL) subcutaneous pen (Novolog Flexpen U-100 Insulin aspart) lorazepam 0.5 mg tablet 0.5 mg PO BID PRN 09/07/21 10/25/21 acetaminophen 500 mg tablet 1,000 mg PO AMPM 10/21/21 10/25/21 (Tylenol Extra Strength) insulin aspart U-100 100 unit/mL 0 unit SUBCUT QDD 10/21/21 10/25/21 (3 mL) subcutaneous pen (Novolog Flexpen U-100 Insulin aspart) insulin glargine 100 unit/mL (3 10 unit SUBCUT QPM 10/21/21 10/25/21 mL) subcutaneous pen (Basaglar KwikPen U-100 Insulin) magnesium oxide 400 mg PO DAILY 10/21/21 10/25/21 Previous Rx's Medication Instructions Recorded clopidogrel 75 mg tablet 75 mg PO QAM #90 tab 05/04/21 tramadol 50 mg tablet 50 mg PO BID PRN #14 tab 07/29/21 metoprolol tartrate 50 mg tablet 25 mg PO DAILY #180 tab 08/24/21 bumetanide 2 mg tablet 2 mg PO DAILY #90 tab 09/07/21 apixaban 2.5 mg tablet (Eliquis) 2.5 mg PO BID 30 Days #90 tab 10/05/21 cefdinir 300 mg capsule 300 mg PO DAILY 5 Days #5 cap 10/24/21 metronidazole 500 mg tablet 500 mg PO TID 5 Days #15 tab 10/24/21 pantoprazole 40 mg tablet,delayed 40 mg PO BID 14 Days #28 tab 10/24/21 release Results & Data (ED) Vital Signs Vital Signs - 24 hr 10/25/21 16:15 10/25/21 16:33 10/25/21 17:25 Temperature 36.9 C Temperature Source Temporal Artery Scan Pulse Rate 69 Respiratory Rate 19 Respiratory Effort / Characteristics Non-Labored Spontaneous Respiratory Depth Normal Blood Pressure 161/89 H 134/69 Blood Pressure Mean 113 90 Pulse Oximetry 98 96 Oxygen Delivery Method Nasal Cannula Nasal Cannula Oxygen Flow Rate 2 4 Sepsis Recent Fever Within 48 Hours No Sepsis New/Unexplained Change in Mental Status N/A Sepsis Action Taken by Nursing No Action Required 10/25/21 17:26 10/25/21 17:30 10/25/21 18:16 Temperature Temperature Source Pulse Rate 73 75 79 Respiratory Rate 17 20 Respiratory Effort / Characteristics Respiratory Depth Blood Pressure Blood Pressure Mean Pulse Oximetry 98 Oxygen Delivery Method Oxygen Flow Rate Sepsis Recent Fever Within 48 Hours Sepsis New/Unexplained Change in Mental Status Sepsis Action Taken by Nursing 10/25/21 18:17 10/25/21 18:30 10/25/21 19:00 Temperature Temperature Source Pulse Rate 75 70 70 Respiratory Rate 22 18 24 Respiratory Effort / Characteristics Respiratory Depth Blood Pressure 109/56 L 142/64 H Blood Pressure Mean 73 90 Pulse Oximetry 95 96 Oxygen Delivery Method Oxygen Flow Rate Sepsis Recent Fever Within 48 Hours Sepsis New/Unexplained Change in Mental Status Sepsis Action Taken by Nursing 10/25/21 19:30 Temperature Temperature Source Pulse Rate 70 Respiratory Rate 23 Respiratory Effort / Characteristics Respiratory Depth Blood Pressure Blood Pressure Mean Pulse Oximetry 99 Oxygen Delivery Method Oxygen Flow Rate Sepsis Recent Fever Within 48 Hours Sepsis New/Unexplained Change in Mental Status Sepsis Action Taken by Nursing Laboratory Data Result diagrams: 10/25/21 17:10 10/25/21 18:49 Lab Results 10/25/21 10/25/21 10/25/21 Range/Units 17:10 17:10 17:11 WBC 5.22 (4.8-10.8) K/uL RBC 3.09 L (4.2-5.4) M/uL Hgb 10.1 L (12.0-16.0) g/dL Hct 33.0 L (37-47) % MCV 106.8 H (80-100) fL MCH 32.7 (25-34) pg MCHC 30.6 L (32-36) g/dL RDW Std Deviation 71.1 H (36.4-46.3) fL RDW Coeff of Nhi 18.2 H (11.5-14.5) % Plt Count 170 (130-400) K/uL MPV 12.1 H (7.4-10.4) fL Immature Gran % (Auto) 0.2 % Neut % (Auto) 77.5 % Lymph % (Auto) 12.3 % [place] % (Auto) 5.2 % Eos % (Auto) 4.2 % Baso % (Auto) 0.6 % Neut # (Auto) 4.05 (1.4-6.5) K/uL Lymph # (Auto) 0.64 L (1.2-3.4) K/uL [place] # (Auto) 0.27 (0.11-0.59) K/uL Eos # (Auto) 0.22 (0-0.5) K/uL Baso # (Auto) 0.03 (0-0.2) K/uL Immature Gran # (Auto) 0.01 (0.00-0.02) K/uL Absolute Nucleated RBC 0.04 H (0-0) K/uL Nucleated RBC % (auto) 0.8 % Sodium Cancelled Potassium Cancelled Chloride Cancelled Carbon Dioxide Cancelled Anion Gap Cancelled BUN Cancelled Creatinine Cancelled Est Cr Clr Drug Dosing Cancelled Est GFR ( Amer) Cancelled Est GFR (Non-Af Amer) Cancelled BUN/Creatinine Ratio Cancelled Glucose Cancelled Calcium Cancelled Total Bilirubin Cancelled AST Cancelled ALT Cancelled Alkaline Phosphatase Cancelled Total Protein Cancelled Albumin Cancelled Globulin Cancelled Albumin/Globulin Ratio Cancelled Lipase Cancelled Blood Type A Positive Antibody Screen NEGATIVE 10/25/21 Range/Units 18:49 WBC (4.8-10.8) K/uL RBC (4.2-5.4) M/uL Hgb (12.0-16.0) g/dL Hct (37-47) % MCV (80-100) fL MCH (25-34) pg MCHC (32-36) g/dL RDW Std Deviation (36.4-46.3) fL RDW Coeff of Nhi (11.5-14.5) % Plt Count (130-400) K/uL MPV (7.4-10.4) fL Immature Gran % (Auto) % Neut % (Auto) % Lymph % (Auto) % [place] % (Auto) % Eos % (Auto) % Baso % (Auto) % Neut # (Auto) (1.4-6.5) K/uL Lymph # (Auto) (1.2-3.4) K/uL [place] # (Auto) (0.11-0.59) K/uL Eos # (Auto) (0-0.5) K/uL Baso # (Auto) (0-0.2) K/uL Immature Gran # (Auto) (0.00-0.02) K/uL Absolute Nucleated RBC (0-0) K/uL Nucleated RBC % (auto) % Sodium 145 Potassium 4.0 Chloride 106 Carbon Dioxide 27 Anion Gap 12 H BUN 61 H Creatinine 2.61 H Est Cr Clr Drug Dosing Not Reportable Est GFR ( Amer) 19.3 Est GFR (Non-Af Amer) 16.7 BUN/Creatinine Ratio 23.4 H Glucose 64 L Calcium 8.7 Total Bilirubin 0.8 AST 34 ALT 32 Alkaline Phosphatase 103 Total Protein 6.1 Albumin 3.8 Globulin 2.3 L Albumin/Globulin Ratio 1.7 Lipase 99 H Blood Type Antibody Screen Discharge Plan Visit Data Chief Complaint: Rectal Bleed Stated Complaint: RECTAL BLEEDING, NAUSEA ED Provider: Raad Andre Discharge Problem: GI bleed, Anemia Forms Stand Alone Forms: [facility] Prescriptions Prescriptions: No Action nitroglycerin 0.4 mg tablet, sublingual 0.4 mg SL Q5M PRN (Reason: Chest Pain) Qty: 25 RF: 0 clopidogrel 75 mg tablet 75 mg PO QAM Qty: 90 RF: 3 metoprolol tartrate 50 mg tablet 25 mg PO DAILY Qty: 180 RF: 3 Eliquis 2.5 mg tablet 2.5 mg PO BID 30 Days Qty: 90 RF: 3 sennosides [Senokot] 8.6 mg tablet 8.6 mg PO QAM PRN (Reason: Constipation) RF: 0 lorazepam 0.5 mg tablet 0.5 mg PO BID PRN (Reason: Anxiety) RF: 0 bumetanide 2 mg tablet 2 mg PO DAILY Qty: 90 RF: 3 pregabalin [Lyrica] 25 mg capsule 25 mg PO BID RF: 0 multivitamin Tablet 1 tab PO QAM RF: 0 levothyroxine [Synthroid] 25 mcg tablet 25 mcg PO QAM RF: 0 escitalopram oxalate 5 mg tablet 5 mg PO QAM RF: 0 potassium chloride 10 mEq tablet extended release 10 meq PO BID RF: 0 albuterol sulfate 2.5 mg /3 mL (0.083 %) Solution For Nebulization 2.5 mg continuous nebulization Q6H PRN (Reason: Wheezing) RF: 0 ipratropium-albuterol 0.5 mg-3 mg(2.5 mg base)/3 mL Solution For Nebulization 3 ml INHALATION Q6H PRN (Reason: Shortness Of Breath Or Wheezing) RF: 0 famotidine 20 mg tablet 20 mg PO BID RF: 0 allopurinol 300 mg tablet 300 mg PO QAM RF: 0 insulin aspart U-100 [Novolog Flexpen U-100 Insulin] 100 unit/mL (3 mL) insulin pen 11 unit SUBCUT .BID UD RF: 0 tramadol 50 mg tablet 50 mg PO BID PRN (Reason: pain) Qty: 14 RF: 0 buspirone 10 mg tablet 10 mg PO BID RF: 0 acetaminophen [Tylenol Extra Strength] 500 mg Tablet 1,000 mg PO AMPM RF: 0 insulin aspart U-100 [Novolog Flexpen U-100 Insulin] 100 unit/mL (3 mL) insulin pen 0 unit SUBCUT QDD RF: 0 magnesium oxide 400 mg magnesium Tablet 400 mg PO DAILY RF: 0 Basaglar KwikPen U-100 Insulin 100 unit/mL (3 mL) insulin pen 10 unit SUBCUT QPM RF: 0 metronidazole 500 mg Tablet 500 mg PO TID 5 Days Qty: 15 RF: 0 pantoprazole 40 mg Tablet,Delayed Release (Dr/Ec) 40 mg PO BID 14 Days Qty: 28 RF: 0 cefdinir 300 mg Capsule 300 mg PO DAILY 5 Days Qty: 5 RF: 0 Referrals Referrals: Lizet Jeter DO [Primary Care Provider] - Discharge Problem: GI bleed Qualifiers: GI bleed type/associated pathology: unspecified gastrointestinal hemorrhage type Qualified Code(s): K92.2 - Gastrointestinal hemorrhage, unspecified Anemia Qualifiers: Anemia type: unspecified type Qualified Code(s): D64.9 - Anemia, unspecified
[2021-10-25 17:22] LABS: Basophils # (auto) 0.03 K/uL (0-0.2); Basophils % (auto) 0.6 %; Eosinophils # (auto) 0.22 K/uL (0-0.5); Eosinophils % (auto) 4.2 %; Hemoglobin 10.1 g/dL (12.0-16.0); Immature Granulocytes # (auto) 0.01 K/uL (0.00-0.02); Immature Granulocytes % (auto) 0.2 %; Lymphocytes # (auto) 0.64 K/uL (1.2-3.4); Lymphocytes % (auto) 12.3 %; Mean Corpuscular Hemoglobin 32.7 pg (25-34); Mean Corpuscular Hgb Conc 30.6 g/dL (32-36); Mean Corpuscular Volume 106.8 fL (80-100); Mean Platelet Volume 12.1 fL (7.4-10.4); Monocytes # (auto) 0.27 K/uL (0.11-0.59); Monocytes % (auto) 5.2 %; Neutrophils # (auto) 4.05 K/uL (1.4-6.5); Neutrophils % (auto) 77.5 %; Nucleated RBC # (auto) 0.04 K/uL (0-0); Nucleated RBC % (auto) 0.8 %; Platelet Count 170 K/uL (130-400); RDW Coefficient of Variation 18.2 % (11.5-14.5); RDW Standard Deviation 71.1 fL (36.4-46.3); Red Blood Count 3.09 M/uL (4.2-5.4); White Blood Count 5.22 K/uL (4.8-10.8)
[2021-10-25 20:13] LABS: Alanine Aminotransferase 32 U/L (7-52); Albumin Globulin Ratio 1.7 (0.9-2); Albumin Level 3.8 gm/dl (3.4-5.0); Alkaline Phosphatase 103 U/L (34-104); Anion Gap 12 (3-11); Aspartate Aminotransferase 34 U/L (13-39); BUN Creatinine Ratio 23.4 (10-20); Bilirubin,Total 0.8 mg/dl (0.2-1.0); Blood Urea Nitrogen 61 mg/dl (6-23); Calcium 8.7 mg/dl (8.5-10.1); Carbon Dioxide 27 mmol/L (21-32); Chloride 106 mmol/L (98-107); Est GFR (African American) 19.3 ml/min; Est GFR (Non-African American) 16.7 ml/min; Globulin 2.3 gm/dl (2.5-4.0); Glucose 64 mg/dl (70-99(Fasting)); Lipase 99 U/L (11-82); Sodium 145 mmol/L (136-145); Total Protein 6.1 gm/dl (6.0-8.3)
--- NOTE | 2021-10-25 21:25 | History & Physical Report ---
Date of Service October 25, 2021 Assessment & Plan (1) Rectal bleed: Plan: -Admitted 10/21-10/24, treated for diverticulitis without perforation or abscess, discharged yesterday, IV antibiotics transferred to p.o. cefdinir and Flagyl. Her Plavix and Eliquis was restarted on discharge. -In November 2020, patient presented with GI bleed, at that time GI felt that she did not tolerate a colon prep and therefore colonoscopy was deferred. Patient recommended to get a colonoscopy done on his outpatient basis once diverticulitis has resolved. -We will keep her n.p.o. for now, IVF, PPI and antiemetics, trend H/H, and consult GI. -Repeat CTAP To evaluate for worsening diverticulitis, perforation, or abcess. -Hold Plavix and Eliquis for now, must consider risk versus benefits of continuing anticoagulation in patient who is presented several times GI bleed with anemia of CKD. (2) Diverticulitis large intestine w/o perforation or abscess w/bleeding: Plan: -Per discharge note on 10/24: -CTAP showed acute sigmoid diverticulitis without perforation or abscess at this time. BP, pulse normal. Gentle fluids given EF 45-50% and home Bumex held on admission -Pain control with Tylenol and morphine. Avoiding NSAIDs for pain control d/t CKD + possible UGI bleed. -Last colonoscopy 06/2010, transverse colon polyp, descending colon polyp, sigmoid colon polyp, diverticulosis. Patient does report a family history in her daughter of rectal cancer who recently . Will likely need a colonoscopy as outpatient after recovered from diverticulitis Treated with Zosyn on admission, clinically progressed well. Transition to oral cefdinir/Flagyl. Cefdinir reduced for renal function to daily from twice daily dosing. Flagyl not requiring dose adjustment, but monitor closely for MIS MANAGER side effects due to decreased metabolite clearance EGD: Normal esophagus, no evidence of bleeding, normal stomach, no duodenal abnormalities. Recommended to advance diet as tolerated, has been advanced to low fiber, continue PPI twice daily. Hemoglobin stable and uptrending to 10.4 at time of discharge Would benefit from colonoscopy, given that she is hemodynamically stable, uptrending hemoglobin, and improvement with treatment of diverticulitis should wait until she is recovered from diverticulitis and have this performed as outpatient (3) Anemia: Plan: -With acute blood loss anemia in the setting of likely anemia of chronic kidney disease -At baseline today. -Monitor H/H, transfusion threshold Hgb < 7. -Antiplatelet/anticoagulant resumed on discharge yesterday, will hold for now. (4) Heart failure with reduced ejection fraction: Plan: -Follows closely with heart failure clinic, last echo in November 2020 with EF= 45 - 50% -Patient appears to be euvolemic, some b/l LE edema. Takes Bumex 2 mg QOD, had it today. She will be receiving LRs at 60cc/hr as she is to be NPO overnight in case there is a need for a procedure tomorrow. Continue to monitor for volume overload, hold Bumex as needed. -Monitor renal function and electrolytes on labs daily. -Dry weight reported as both 170 and 190 pounds? Monitor I&O's, daily weights. -Low-sodium diet when tolerating PO intake. (5) Chronic kidney disease, stage 4 (severe): Plan: -Baseline creatinine 2.5, EGFR 18 cc/min. -Stable, asymptomatic anemia of chronic disease, not on any iron supplementation. -Continue potassium supplementation. -Continue to monitor electrolytes, renal function. -Avoid nephrotoxic agents, renally dose all medications. (6) Diabetes: Plan: -Glucose 64 on BMP today, will hold insulin. -Accu-Cheks Q6h while NPO, achs when eating, with sliding scale insulin. -Continue Lyrica 25 mg twice daily for neuropathy. (7) Coronary artery disease: Plan: -Status post remote multivessel stenting in RCA AWILDA x2 in June 2018. -Plavix held with ongoing rectal bleed, continue beta-suraj, statin. (8) Paroxysmal A-fib: Plan: -status post AV clarisse ablation and dual-chamber pacemaker placement. -Continue beta-suraj for rate control. -Holding Eliquis with ongoing rectal bleed. -On telemetry. (9) Hypertension: Plan: -Continue metoprolol, please hold for HR <60 or SBP <100. (10) Hypothyroidism: Plan: -Continue levothyroxine 25 mcg daily. (11) Polymyalgia rheumatica: Plan: -Continue Tylenol as needed for pain. Plan: -OBS med/tele. -SCDs for DVT ppx, holding Eliquis in setting of rectal bleed. -DNR/DNI. History of Present Illness Chief Complaint: rectal bleeding Primary Care Provider: Lizet Jeter DO Patient is 80-year-old female with past medical history of HFrEF, CAD, CKD IV, afib with ablation and ICD, dementia, COPD on chronic oxygen 3L, polymyalgia rheumatica, IDDM2, hypothyroidism and depression, discharged yesterday 10/24 after being admitted and treated for diverticulitis who presents today with complaints of rectal bleeding. Patient states she had bright red blood with BMs since this morning with a clot this morning reported to be the size of the golf ball. She continues to have constant lower abdominal cramping pain associated with nausea for the past 2 to 3 weeks. It has not been significantly worse since discharge. She is otherwise without complaints, no fever/chills, weakness, fatigue, chest pain, palpitations, dyspnea at rest or with exertion, vomiting, diarrhea, hematemesis. Patient is on Eliquis and Plavix, held during last admission but restarted on discharge. She has a history of melena in November 2020, at that time an EGD was performed which was negative, did not identify an upper GI source of blood loss. It was determined to be unlikely that patient would be able to tolerate a bowel prep or colonoscopy at that time therefore it was deferred. In ED, patient's vital signs are within normal notes, stable. Of remarkable for hemoglobin 10.1, at baseline. BUN 61, creatinine 2.61, near baseline. Glucose 64. Lipase mildly elevated at 99. Repeat CT A/P pending. Allergies Allergy/AdvReac Type Severity Reaction Status Date / Time eptifibatide Allergy Severe ANAPHYLAXIS Verified 10/26/21 15:50 hornet venom Allergy Severe WASP VENOM Verified 10/26/21 15:50 PROTEIN-ANAPHYLAXIS levofloxacin [From Levaquin] Allergy Severe Hives Verified 10/26/21 15:50 atorvastatin Allergy Intermediate MUSCLE PAIN Verified 10/26/21 15:50 ezetimibe Allergy Intermediate MUSCLE PAIN Verified 10/26/21 15:50 simvastatin Allergy Intermediate MUSCLE PAIN Verified 10/26/21 15:50 rosuvastatin [From Crestor] Allergy Rash Verified 10/26/21 15:50 amlodipine AdvReac Severe Nausea Verified 10/26/21 15:50 azithromycin AdvReac Intermediate Palpitation Verified 10/26/21 15:50 s cortisone AdvReac Intermediate INCREASES Verified 10/26/21 15:50 SUGAR AND VOMITING? hydralazine AdvReac Intermediate VOMITING Verified 10/26/21 15:50 ibuprofen AdvReac Intermediate VOMITING Verified 10/26/21 15:50 AND DIARRHEA iodine AdvReac Intermediate SHELLFISH Verified 10/26/21 15:50 - VOMITING shellfish derived AdvReac Intermediate VOMITING Verified 10/26/21 15:50 Sulfa (Sulfonamide AdvReac Intermediate VOMITING Verified 10/26/21 15:50 Antibiotics) warfarin AdvReac Intermediate EXTREME Verified 10/26/21 15:50 BLEEDING TIMES codeine AdvReac Mild VOMITING Verified 10/26/21 15:50 gemfibrozil AdvReac Mild NAUSEA Verified 10/26/21 15:50 meperidine AdvReac Mild VOMITING Verified 10/26/21 15:50 ondansetron AdvReac Mild vomiting Verified 10/26/21 15:50 ranitidine [From Zantac] AdvReac Mild dyspepsia Verified 10/26/21 15:50 Home Medications Medication Instructions Recorded Confirmed Type multivitamin 1 tab PO QAM 06/20/18 10/25/21 History nitroglycerin 0.4 mg sublingual 0.4 mg SL Q5M PRN #25 tab 02/26/19 10/25/21 History tablet levothyroxine 25 mcg tablet 25 mcg PO QAM 06/04/19 10/25/21 History (Synthroid) sennosides 8.6 mg tablet (Senokot) 8.6 mg PO QAM PRN tab 07/07/20 10/25/21 History escitalopram oxalate 5 mg tablet 5 mg PO QAM 07/20/20 10/25/21 History potassium chloride 10 mEq 10 meq PO BID 08/08/20 10/25/21 History tablet,extended release albuterol sulfate 2.5 mg CONTINUOUS NEBULIZATION Q6H 11/24/20 10/25/21 History PRN famotidine 20 mg tablet 20 mg PO BID 11/24/20 10/25/21 History ipratropium 0.5 mg-albuterol 3 mg 3 ml INHALATION Q6H PRN 11/24/20 10/25/21 History (2.5 mg base)/3 mL nebulization soln buspirone 10 mg tablet 10 mg PO BID 01/10/21 10/25/21 History pregabalin 25 mg capsule (Lyrica) 25 mg PO BID 04/15/21 10/25/21 History clopidogrel 75 mg tablet 75 mg PO QAM #90 tab 05/04/21 10/25/21 Rx allopurinol 300 mg tablet 300 mg PO QAM 07/28/21 10/25/21 History insulin aspart U-100 100 unit/mL 11 unit SUBCUT .BID UD 07/28/21 10/25/21 History (3 mL) subcutaneous pen (Novolog Flexpen U-100 Insulin aspart) tramadol 50 mg tablet 50 mg PO BID PRN #14 tab 07/29/21 10/25/21 Rx metoprolol tartrate 50 mg tablet 25 mg PO DAILY #180 tab 08/24/21 10/25/21 Rx bumetanide 2 mg tablet 2 mg PO DAILY #90 tab 09/07/21 10/25/21 Rx lorazepam 0.5 mg tablet 0.5 mg PO BID PRN 09/07/21 10/25/21 History apixaban 2.5 mg tablet (Eliquis) 2.5 mg PO BID 30 Days #90 tab 10/05/21 10/25/21 Rx acetaminophen 500 mg tablet 1,000 mg PO AMPM 10/21/21 10/25/21 History (Tylenol Extra Strength) insulin aspart U-100 100 unit/mL 0 unit SUBCUT QDD 10/21/21 10/25/21 History (3 mL) subcutaneous pen (Novolog Flexpen U-100 Insulin aspart) insulin glargine 100 unit/mL (3 10 unit SUBCUT QPM 10/21/21 10/25/21 History mL) subcutaneous pen (Basaglar KwikPen U-100 Insulin) magnesium oxide 400 mg PO DAILY 10/21/21 10/25/21 History cefdinir 300 mg capsule 300 mg PO DAILY 5 Days #5 cap 10/24/21 10/25/21 Rx metronidazole 500 mg tablet 500 mg PO TID 5 Days #15 tab 10/24/21 10/25/21 Rx pantoprazole 40 mg tablet,delayed 40 mg PO BID 14 Days #28 tab 10/24/21 10/25/21 Rx release 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) [place] (dyspnea on exertion) Dyslipidemia Elevated troponin Elevated troponin Elevated troponin I level Fall Fracture of head of left humerus Hematuria HTN (hypertension) Hypercarbia Hypertrophic cardiomyopathy apical variant Hypothyroidism Knee arthropathy Lung cancer Myocardial infarction X4 Paroxysmal A-fib Peripheral neuropathy Proteinuria Thrombocytopenia Thrombocytopenia Vitamin D deficiency Surgical History History of cardioversion MULTIPLE History of cataract surgery History of lung surgery PARTIAL LEFT LOBECTOMY (2013) Hx of brain surgery 2017 S/P FALL/INJURY; SUBSEQUENT BLOOD CLOT EVACUATION Knee joint replacement status S/P cardiac catheterization 7 TOTAL; CARDIAC STENTS X6 S/P hysterectomy S/P tonsillectomy Family History Father , Patient age 82 of stomach cancer. Cancer Heart disease Diabetes Mother , age 93 of heart issues Stroke Hypertension Heart disease Grandmother (Maternal) Coronary heart disease Stroke Family/Other Multiple sclerosis Brother Coronary heart disease Grandfather (Maternal) Heart disease Grandfather (Paternal) Diabetes Aunt Muscular dystrophy Other Gallbladder disease Kidney stones Social History Smoking Status: Never smoker Second Hand Exposure: No; Hx Alcohol Use: No Hx Substance Use: No Preferred Language: Brazilian Communication Ability: Effective Charter Coach Driver Required: No Beliefs That Will Affect Care: None marital status: Current Living Situation: Spouse 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al status: retired 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 How many Children do You have: 3 Other Information That Helps Us Care for You: No other: 3 children Feels Safe at Home: Yes Safety Concerns: Feels Safe At This Time Assistive Devices: Walker Review of Systems Review of Systems: Constitutional: No fever/chills, weakness, fatigue, myalgias, anorexia, night sweats Eyes: No diplopia, no worsening or blurred vision ENT: normal hearing, no trouble swallowing Respiratory: No cough, sputum, dyspnea at rest or on exertion Cardiovascular: No chest pain, tightness or palpitations Abdomen: No pain, nausea, vomiting, diarrhea or constipation : Denies dysuria, hematuria, increased urgency/frequency, urinary retention Musculoskeletal: No joint pain, calf pain, swelling Neurologic: No weakness, numbness/tingling, or balance problems Psychiatric: No anxiety or depression Skin: No rash or itch Physical Exam Physical Exam: General: awake, alert, no apparent distress Head: Normocephalic, atraumatic ENT: PERRL, EOMI, no pharyngeal exudate, mucous membranes moist Chest: Clear to auscultation, on room air, no adventitious breath sounds Cardiac: Regular rate and rhythm, no murmur, no JVD, normal peripheral pulses, good capillary refill Abdominal: NABS x 4 quadrants, soft, nontender to palpation, no rebound, guarding or tenderness Extremities: Normal inspection, no peripheral edema or erythema, calfs nontender to palpation Psych: Normal mood and affect Neuro: AAO x 3, strength intact bilaterally and rated 5/5, no motor deficits, speech is clear, no peripheral sensory deficits Skin: no rash or erythema Results & Data Results & [facility] ([facility]) Vital Signs (Past 12 Hours) Vital Signs Temp Pulse Resp BP Pulse Ox 10/25/21 19:30 70 23 99 10/25/21 19:00 70 24 142/64 H 10/25/21 18:30 70 18 96 10/25/21 18:17 75 22 109/56 L 95 10/25/21 18:16 79 20 10/25/21 17:30 75 98 10/25/21 17:26 73 17 10/25/21 17:25 134/69 10/25/21 16:33 96 10/25/21 16:15 36.9 C 69 19 161/89 H 98 Laboratory Results Abnormal lab results 10/25/21 10/25/21 Range/Units 17:10 18:49 RBC 3.09 L (4.2-5.4) M/uL Hgb 10.1 L (12.0-16.0) g/dL Hct 33.0 L (37-47) % MCV 106.8 H (80-100) fL MCHC 30.6 L (32-36) g/dL RDW Std Deviation 71.1 H (36.4-46.3) fL RDW Coeff of Nhi 18.2 H (11.5-14.5) % MPV 12.1 H (7.4-10.4) fL Lymph # (Auto) 0.64 L (1.2-3.4) K/uL Absolute Nucleated RBC 0.04 H (0-0) K/uL Anion Gap 12 H (3-11) BUN 61 H (6-23) mg/dl Creatinine 2.61 H (0.6-1.2) mg/dl BUN/Creatinine Ratio 23.4 H (10-20) Glucose 64 L (70-99(Fasting)) mg/dl Globulin 2.3 L (2.5-4.0) gm/dl Lipase 99 H (11-82) U/L Code Status & VTE Plan Code Status DNR/DNI. Supervising Physician Co-Signing Physician Notes Attending addendum: I have physically seen this patient, have supervised the AMADOU's activities, and agree with the H&P unless as otherwise noted. Assessment and Plan: Diverticulitis of large bowel without perforation or abscess, with bleeding- Just discharged from [facility] after admission from 10/21-10/24/2021. Hold Plavix and Eliquis Protonix IV Zofran 4 mg IV every 6 hours as needed H&H every [address] scan abdomen pelvis to assess for progressive symptoms caused by p erforation or abscess Zosyn 4.5 g IV every 8 hours Consult gastroenterology NPO except essential medications CAD/hypertension/paroxysmal atrial fibrillation/RCA AWILDA x2- Continue metoprolol with hold parameters Hold Eliquis and clopidogrel as noted above Resume medications as able once GI symptoms are controlled Remaining orders and notations as noted PG Care Time/CCT Total # of Minutes Spent Total Time Spent with Patient: Total time spent is greater than 50% in coordination of care (as documented) at patient's floor/unit and/or counseling patient: Coding Level of Care Code INT OBSERVATION CARE 70M LVL 3 Diagnoses Diverticulitis large intestine w/o perforation or abscess w/bleeding K57.33 Anemia D64.9 Anemia type: unspecified type Heart failure with reduced ejection fraction I50.20 Chronic kidney disease, stage 4 (severe) N18.4 Diabetes E11.9 Coronary artery disease I25.10 Associated angina: without angina Coronary Disease-Associated Artery/Lesion type: [place] artery [place] vs. transplanted heart: [place] heart Paroxysmal A-fib I48.0 Hypertension I10 Hypothyroidism E03.9 Hypothyroidism type: unspecified Polymyalgia rheumatica M35.3 Rectal bleed K62.5 (1) Coronary artery disease Associated angina: without angina Coronary Disease-Associated Artery/Lesion type: [place] artery [place] vs. transplanted heart: [place] heart Qualified Code(s): I25.10 - Atherosclerotic heart disease of [place] coronary artery without angina pectoris (2) Anemia Anemia type: unspecified type Qualified Code(s): D64.9 - Anemia, unspecified (3) Hypothyroidism Hypothyroidism type: unspecified Qualified Code(s): E03.9 - Hypothyroidism, unspecified
[2021-10-25] MEDS ORDERED: ONDANSETRON INJ 2 MG/ML 2 ML VIAL IV PRN (22:19)
[2021-10-25] MEDS ORDERED: LACTATED RINGER'S 1,000 ML IV SCH (22:19)
[2021-10-25] MEDS ORDERED: ALBUTEROL 0.083% NEBU SOLN 3 ML VIAL INH PRN (22:19)
[2021-10-25] MEDS ORDERED: DEXTROSE 50% 50 ML SYRINGE IV PRN (22:19)
[2021-10-25] MEDS ORDERED: ACETAMINOPHEN 325 MG TAB PO PRN (22:19)
[2021-10-25] MEDS ORDERED: GLUCOSE 40% GEL 15 GM TUBE PO PRN (22:19)
[2021-10-25] MEDS ORDERED: POLYETHYLENE (MIRALAX) 17 GM PACK PO PRN (22:19)
[2021-10-25] MEDS ORDERED: ALBUT/IPRATROP 3MG/0.5MG NEB 3 ML VIAL INH PRN (22:19)
[2021-10-25] MEDS ORDERED: GLUCOSE 10 TABS/TUBE PO PRN (22:19)
[2021-10-25] MEDS ORDERED: GLUCAGON FOR INJ 1 MG VIAL SQ PRN (22:19)
[2021-10-25] MEDS ORDERED: traMADol HCL 50 MG TABLET PO PRN (22:19)
[2021-10-25] MEDS ORDERED: CARBOHYDRATES FOR HYPOGLYCEMIA PO PRN (22:19)
[2021-10-25] MEDS ORDERED: NITROGLYCERIN SL 0.4 MG/TAB TAB SL PRN (22:19)
[2021-10-25] MEDS: POTASSIUM CHLORIDE 10 MEQ TABCR PO SCH (23:14)
[2021-10-25] MEDS: PREGABALIN 25 MG CAP PO SCH (23:14)
[2021-10-25] MEDS: metroNIDAZOLE 500 MG TAB PO SCH (23:15)
[2021-10-25] MEDS: PANTOprazole 40 MG TAB PO SCH (23:15)
[2021-10-25] MEDS: FAMOTIDINE 20 MG TAB PO SCH (23:16)
[2021-10-25] MEDS: busPIRone 5 MG TAB PO SCH (23:16)
[2021-10-25] MEDS: ACETAMINOPHEN 500 MG TAB PO SCH (23:17)
[2021-10-25 23:52] LABS: Hematocrit (blood only) 34.1 % (37-47); Hemoglobin 10.6 g/dL (12.0-16.0)
[2021-10-26] MEDS: INSULIN ASPART PER UNIT SC SCH ×4 (01:09→17:41)
[2021-10-26] MEDS: LEVOTHYROXINE SODIUM 25 MCG TABLET PO SCH (06:24)
[2021-10-26 06:41] LABS: Basophils # (auto) 0.03 K/uL (0-0.2); Basophils % (auto) 0.6 %; Eosinophils # (auto) 0.22 K/uL (0-0.5); Eosinophils % (auto) 4.3 %; Hematocrit (blood only) 32.1 % (37-47); Immature Granulocytes # (auto) 0.01 K/uL (0.00-0.02); Immature Granulocytes % (auto) 0.2 %; Lymphocytes # (auto) 0.55 K/uL (1.2-3.4); Lymphocytes % (auto) 10.8 %; Mean Corpuscular Hemoglobin 33.1 pg (25-34); Mean Corpuscular Hgb Conc 31.2 g/dL (32-36); Mean Corpuscular Volume 106.3 fL (80-100); Mean Platelet Volume 11.2 fL (7.4-10.4); Monocytes # (auto) 0.46 K/uL (0.11-0.59); Monocytes % (auto) 9.1 %; Nucleated RBC # (auto) 0.03 K/uL (0-0); Nucleated RBC % (auto) 0.6 %; Platelet Count 151 K/uL (130-400); RDW Coefficient of Variation 18.2 % (11.5-14.5); RDW Standard Deviation 70.1 fL (36.4-46.3); Red Blood Count 3.02 M/uL (4.2-5.4); White Blood Count 5.07 K/uL (4.8-10.8)
[2021-10-26 07:06] LABS: BUN Creatinine Ratio 22.8 (10-20); Calcium 8.8 mg/dl (8.5-10.1); Creatinine Clr Calc Pharmacy 18.9 ml/min; Est GFR (Non-African American) 17.2 ml/min; Potassium 4.1 mmol/L (3.5-5.1)
[2021-10-26 07:25] LABS: Estimated Average Glucose 137 mg/dl; Hemoglobin A1C 6.4 % (4.5-5.6)
[2021-10-26] MEDS: CEFDINIR 300 MG CAP PO SCH (07:30)
[2021-10-26] MEDS ORDERED: INSULIN ASPART PER UNIT SC SCH (07:30)
[2021-10-26] MEDS: POTASSIUM CHLORIDE 10 MEQ TABCR PO SCH ×2 (07:30→17:47)
[2021-10-26] MEDS: PANTOprazole 40 MG TAB PO SCH ×2 (07:30→21:17)
[2021-10-26] MEDS: METOPROLOL TARTRATE 25 MG TAB PO SCH (07:31)
[2021-10-26] MEDS: metroNIDAZOLE 500 MG TAB PO SCH ×3 (07:31→21:17)
[2021-10-26] MEDS: FAMOTIDINE 20 MG TAB PO SCH ×2 (07:31→21:17)
[2021-10-26] MEDS: ESCITALOPRAM OXALATE 10 MG TAB PO SCH (07:31)
[2021-10-26] MEDS: ACETAMINOPHEN 500 MG TAB PO SCH ×2 (07:31→21:17)
[2021-10-26] MEDS: busPIRone 5 MG TAB PO SCH ×2 (07:31→21:18)
[2021-10-26] MEDS: allopurinoL 300 MG TAB PO SCH (07:32)
[2021-10-26] MEDS: MAGNESIUM OXIDE 400 MG TAB PO SCH (07:32)
[2021-10-26] MEDS: BUMETANIDE 1 MG TAB PO SCH (07:32)
[2021-10-26] MEDS: PREGABALIN 25 MG CAP PO SCH ×2 (07:35→21:15)
--- NOTE | 2021-10-26 08:26 | Gastrointestinal Consultation ---
Date of Consultation October 26, 2021 Assessment & Plan (1) Rectal bleed: Rectal bleed: Patient with bright red rectal bleeding with and without bowel movement per her report. Recent diagnosis of acute diverticulitis within the last week. Plan today is flexible sigmoidoscopy. Maintain n.p.o. status. Plan is for unprepped flex sig due to risk of perforation per Dr. Little. Patient agreeable to plan of care. Contacted patient's , Howie, who is also agreeable to plan of care. Procedure and risks explained to patient which include but not limited to medication reaction, bleeding, perforation, aspiration, and missed lesions. Verbalizes understanding and is agreeable to proceed. Continue to hold Plavix and Eliquis anticipating procedure. Anemia: Stable at present. Continue to monitor and transfuse as needed. Continue PPI. Acute diverticulitis: Acute diverticulitis diagnosed within the last week. Initially treated with Zosyn, transitioned to po cefdinir/Flagyl. Case reviewed with Dr. Little. Please refer to supervising physician addendum for further recommendations. I have spent 45 minutes of discrete time performing the activities of this visit which include but are not limited to review of the medical record, obtaining a history, physical exam, and entering information in the electronic record. (2) Anemia: (3) Diverticulitis large intestine w/o perforation or abscess w/bleeding: Supervising Physician Co-Signing Physician Notes I interviewed and examined the patient and reviewed the medical record, with the following observations: Subjective: The patient reports bright red rectal bleeding, no melena, the history seems more compatible with bleeding from hemorrhoids while on anticoagulation and antiplatelet agents, and less compatible with diverticular bleed or ischemic colitis. It is unusual to have bleeding with acute diverticulitis. Also possible that she has a bleeding polyp or mass in the sigmoid, seems unlikely Physical Examination: Rectal exam by Lilo Guzman revealed external hemorrhoids with no stigmata of bleeding, and brown stool in the rectum, no gross blood detected Chart Review: CT scan: improving acute uncomplicated sigmoid diverticulitis I agree with the assessment as outlined in this consultation, with the following observations: Bleeding appears minor, not destabilizing, occurring when the patient takes clopidogrel and Eliquis, compatible but not diagnostic for hemorrhoid bleeding I agree with the plan of care as outlined in this consultation, with the following changes and/or additions: Plan is to proceed with limited sigmoido scopy to try to determine if the bleeding origin is in the rectum (hemorrhoid, proctitis, rectal polyp or mass) or further up in the colon (diverticular bleed or other source) As the supervising physician, I have spent 15 minutes of discrete time performing the activities of this consultation which include, but are not limited to, review of the medical record, obtaining a history, physical e xamination, and entering information into the electronic record. [facility], has reported spending minutes of discrete time with the activities of the consultation. History of Present Illness Attending Physician: Mirna Hankins MD History of Present Illness The patient is a pleasant 81-year-old female with past medical history to include stage IV chronic kidney disease, COPD, dementia, type 2 diabetes, diastolic CHF, diffuse large B-cell lymphoma (08/2012), dyslipidemia, hypertension, hypertrophic cardiomyopathy, hypothyroidism, history of myocardial infarction x4, peripheral neuropathy, proteinuria, subdural hematoma, chronic thrombocytopenia, vitamin D deficiency who presented to the emergency department on 10/25/2021 with complaints of bright red rectal bleeding. Most recently found to have acute diverticulitis on CT abdomen and pelvis 10/21/2021. She was discharged from the hospital 10/24/2021. Upper endoscopy was unremarkable. She was subsequently admitted for further evaluation. GI was consulted due to bright red rectal bleeding. On exam/interview today, the patient is awake alert to person and place sitting in bed and position of comfort. Reports that she has had bright red rectal bleeding both with bowel movements and without bowel movements since discharge 2 days ago. Reports of bilateral lower abdominal pain that was worse on presentation to the emergency department. Denies any current abdominal discomfort. She believes she has been having abdominal pain for last 2 months. She lives at home with her is her primary caregiver. She does have a history of frequent NSAID use due to history of polymyalgia rheumatica. On daily Plavix and Eliquis at home. Denies any nausea or vomiting. She has had some struggles with decreased appetite for a while. History of anemia with stable laboratory findings on admission. Records are reviewed: 06/24/2010: Colonoscopy notes reviewed performed by Dr. Solis demonstrated transverse colon polyp, descending colon polyp, sigmoid colon polyp, diverticulosis 09/30/2015: EGD notes reviewed performed by Dr. Gaslightwala due to complaints of dysphasia demonstrated regular Z line found at 40 cm from incisors; dilation performed with savory dilator with no resistance to 16 mm and 18 mm. Normal stomach. Normal examined duodenum. 05/14/2020: EGD demonstrated regular z-line, 40cm from incisors. Normal esophagus. Normal stomach. Normal examined stomach. No specimens were co llected. 11/25/2020: EGD performed by Dr. Blunt demonstrated regular Z-line 45 cm from incisors; normal examined stomach; examined esophagus was normal; examined duodenum was normal; there were no specimens collected. 10/22/2021: EGD notes are reviewed performed due to history of reported melena with heme positive stool that demonstrated normal esophagus, regular Z-line found 40 cm from the incisors, normal stomach, normal examined duodenum, and no specimens collected. Recommend proton pump inhibitor p.o. twice daily. Allergies Allergy/AdvReac Type Severity Reaction Status Date / Time eptifibatide Allergy Severe ANAPHYLAXIS Verified 10/26/21 15:50 hornet venom Allergy Severe WASP VENOM Verified 10/26/21 15:50 PROTEIN-ANAPHYLAXIS levofloxacin [From Levaquin] Allergy Severe Hives Verified 10/26/21 15:50 atorvastatin Allergy Intermediate MUSCLE PAIN Verified 10/26/21 15:50 ezetimibe Allergy Intermediate MUSCLE PAIN Verified 10/26/21 15:50 simvastatin Allergy Intermediate MUSCLE PAIN Verified 10/26/21 15:50 rosuvastatin [From Crestor] Allergy Rash Verified 10/26/21 15:50 amlodipine AdvReac Severe Nausea Verified 10/26/21 15:50 azithromycin AdvReac Intermediate Palpitation Verified 10/26/21 15:50 s cortisone AdvReac Intermediate INCREASES Verified 10/26/21 15:50 SUGAR AND VOMITING? hydralazine AdvReac Intermediate VOMITING Verified 10/26/21 15:50 ibuprofen AdvReac Intermediate VOMITING Verified 10/26/21 15:50 AND DIARRHEA iodine AdvReac Intermediate SHELLFISH Verified 10/26/21 15:50 - VOMITING shellfish derived AdvReac Intermediate VOMITING Verified 10/26/21 15:50 Sulfa (Sulfonamide AdvReac Intermediate VOMITING Verified 10/26/21 15:50 Antibiotics) warfarin AdvReac Intermediate EXTREME Verified 10/26/21 15:50 BLEEDING TIMES codeine AdvReac Mild VOMITING Verified 10/26/21 15:50 gemfibrozil AdvReac Mild NAUSEA Verified 10/26/21 15:50 meperidine AdvReac Mild VOMITING Verified 10/26/21 15:50 ondansetron AdvReac Mild vomiting Verified 10/26/21 15:50 ranitidine [From Zantac] AdvReac Mild dyspepsia Verified 10/26/21 15:50 Home Medications Medication Instructions Recorded Confirmed Type multivitamin 1 tab PO QAM 06/20/18 10/25/21 History nitroglycerin 0.4 mg sublingual 0.4 mg SL Q5M PRN #25 tab 02/26/19 10/25/21 History tablet levothyroxine 25 mcg tablet 25 mcg PO QAM 06/04/19 10/25/21 History (Synthroid) sennosides 8.6 mg tablet (Senokot) 8.6 mg PO QAM PRN tab 07/07/20 10/25/21 History escitalopram oxalate 5 mg tablet 5 mg PO QAM 07/20/20 10/25/21 History potassium chloride 10 mEq 10 meq PO BID 08/08/20 10/25/21 History tablet,extended release albuterol sulfate 2.5 mg CONTINUOUS NEBULIZATION Q6H 11/24/20 10/25/21 History PRN famotidine 20 mg tablet 20 mg PO BID 11/24/20 10/25/21 History ipratropium 0.5 mg-albuterol 3 mg 3 ml INHALATION Q6H PRN 11/24/20 10/25/21 History (2.5 mg base)/3 mL nebulization soln buspirone 10 mg tablet 10 mg PO BID 01/10/21 10/25/21 History pregabalin 25 mg capsule (Lyrica) 25 mg PO BID 04/15/21 10/25/21 History clopidogrel 75 mg tablet 75 mg PO QAM #90 tab 05/04/21 10/25/21 Rx allopurinol 300 mg tablet 300 mg PO QAM 07/28/21 10/25/21 History insulin aspart U-100 100 unit/mL 11 unit SUBCUT .BID UD 07/28/21 10/25/21 History (3 mL) subcutaneous pen (Novolog Flexpen U-100 Insulin aspart) tramadol 50 mg tablet 50 mg PO BID PRN #14 tab 07/29/21 10/25/21 Rx metoprolol tartrate 50 mg tablet 25 mg PO DAILY #180 tab 08/24/21 10/25/21 Rx bumetanide 2 mg tablet 2 mg PO DAILY #90 tab 09/07/21 10/25/21 Rx lorazepam 0.5 mg tablet 0.5 mg PO BID PRN 09/07/21 10/25/21 History apixaban 2.5 mg tablet (Eliquis) 2.5 mg PO BID 30 Days #90 tab 10/05/21 10/25/21 Rx acetaminophen 500 mg tablet 1,000 mg PO AMPM 10/21/21 10/25/21 History (Tylenol Extra Strength) insulin aspart U-100 100 unit/mL 0 unit SUBCUT QDD 10/21/21 10/25/21 History (3 mL) subcutaneous pen (Novolog Flexpen U-100 Insulin aspart) insulin glargine 100 unit/mL (3 10 unit SUBCUT QPM 10/21/21 10/25/21 History mL) subcutaneous pen (Basaglar KwikPen U-100 Insulin) magnesium oxide 400 mg PO DAILY 10/21/21 10/25/21 History cefdinir 300 mg capsule 300 mg PO DAILY 5 Days #5 cap 10/24/21 10/25/21 Rx metronidazole 500 mg tablet 500 mg PO TID 5 Days #15 tab 10/24/21 10/25/21 Rx pantoprazole 40 mg tablet,delayed 40 mg PO BID 14 Days #28 tab 10/24/21 10/25/21 Rx release Patient History Medical History Acute on chronic diastolic heart failure Acute upper gastrointestinal bleeding Acute UTI (urinary tract infection) Anemia Anemia Angina pectoris Blood per rectum CHI (closed head injury) Chronic respiratory failure with hypoxia and hypercapnia COPD with acute exacerbation Depression with anxiety Diabetes Diabetic foot ulcer associated with type 2 diabetes mellitus 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) [place] (dyspnea on exertion) Dyslipidemia Elevated troponin Elevated troponin Elevated troponin I level Fall Fracture of head of left humerus Hematuria HTN (hypertension) Hypercarbia Hypertrophic cardiomyopathy apical variant Hypothyroidism Knee arthropathy Lung cancer Myocardial infarction X4 Paroxysmal A-fib Peripheral neuropathy Proteinuria Thrombocytopenia Thrombocytopenia Vitamin D deficiency Surgical History History of cardioversion MULTIPLE History of cataract surgery History of lung surgery PARTIAL LEFT LOBECTOMY (2014) Hx of brain surgery 2017 S/P FALL/INJURY; SUBSEQUENT BLOOD CLOT EVACUATION Knee joint replacement status S/P cardiac catheterization 7 TOTAL; CARDIAC STENTS X6 S/P hysterectomy S/P tonsillectomy Family History Father , Patient age 82 of stomach cancer. 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 Beliefs That Will Affect Care: None marital status: Current Living Situation: Spouse 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al status: retired 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: Retired/Disabled - [employer] How many Children do You have: 3 Other Information That Helps Us Care for You: No other: 3 children Feels Safe at Home: Yes Safety Concerns: Feels Safe At This Time Assistive Devices: Oxygen - Continuous Review of Systems Review of Systems: All systems reviewed & are unremarkable except as noted in Subjective Physical Exam Constitutional: WD/WN, vitals as above Eyes: wears corrective lenses Respiratory: normal respiratory effort, lungs clear to auscultation Cardiovascular: RRR, no murmur, no edema Gastrointestinal (Abdomen): normal bowel sounds, soft, nontender, no hepa tosplenomegaly Rectal Exam: + hemorrhoids (non-bleeding, non-thrombosed); no rectal mass and no stool abnormal rectal exam matthew - SHAYY Moon; brown stool noted in rectal vault, stool for occult blood sent to lab Psychiatric: Orientation: alert, oriented to person and oriented to place Results & Data ([facility]) Vital Signs (Past 12 Hours) Vital Signs Temp Pulse Pulse Pulse Resp BP BP 10/26/21 07:40 36.6 C 75 16 165/74 H 10/26/21 04:39 76 10/26/21 03:16 36.5 C 69 16 144/78 H 10/25/21 21:30 73 22 10/25/21 21:21 79 21 152/80 H 10/25/21 21:00 74 18 152/80 H 10/25/21 20:30 70 Pulse Ox 10/26/21 07:40 95 10/26/21 04:39 10/26/21 03:16 100 10/25/21 21:30 10/25/21 21:21 100 10/25/21 21:00 10/25/21 20:30 Laboratory Results Laboratory Results - last 24 hr 10/25/21 10/25/21 10/25/21 17:10 17:10 17:11 WBC 5.22 RBC 3.09 L Hgb 10.1 L Hct 33.0 L MCV 106.8 H MCH 32.7 MCHC 30.6 L RDW Std Deviation 71.1 H RDW Coeff of Nhi 18.2 H Plt Count 170 MPV 12.1 H Immature Gran % (Auto) 0.2 Neut % (Auto) 77.5 Lymph % (Auto) 12.3 Josephine % (Auto) 5.2 Eos % (Auto) 4.2 Baso % (Auto) 0.6 Neut # (Auto) 4.05 Lymph # (Auto) 0.64 L Josephine # (Auto) 0.27 Eos # (Auto) 0.22 Baso # (Auto) 0.03 Immature Gran # (Auto) 0.01 Absolute Nucleated RBC 0.04 H Nucleated RBC % (auto) 0.8 Sodium Cancelled Potassium Cancelled Chloride Cancelled Carbon Dioxide Cancelled Anion Gap Cancelled BUN Cancelled Creatinine Cancelled Est Cr Clr Drug Dosing Cancelled Est GFR ( Amer) Cancelled Est GFR (Non-Af Amer) Cancelled BUN/Creatinine Ratio Cancelled Glucose Cancelled POC Glucose Estimat Average Glucose Hemoglobin A1c Calcium Cancelled Total Bilirubin Cancelled AST Cancelled ALT Cancelled Alkaline Phosphatase Cancelled Total Protein Cancelled Albumin Cancelled Globulin Cancelled Albumin/Globulin Ratio Cancelled Lipase Cancelled SARS-CoV-2, RNA, NAAT Blood Type A Positive Antibody Screen NEGATIVE 10/25/21 10/25/21 10/25/21 18:49 20:53 23:25 WBC RBC Hgb 10.6 L Hct 34.1 L MCV MCH MCHC RDW Std Deviation RDW Coeff of Nhi Plt Count MPV Immature Gran % (Auto) Neut % (Auto) Lymph % (Auto) Josephine % (Auto) Eos % (Auto) Baso % (Auto) Neut # (Auto) Lymph # (Auto) Josephine # (Auto) Eos # (Auto) Baso # (Auto) Immature Gran # (Auto) Absolute Nucleated RBC Nucleated RBC % (auto) Sodium 145 Potassium 4.0 Chloride 106 Carbon Dioxide 27 Anion Gap 12 H BUN 61 H Creatinine 2.61 H Est Cr Clr Drug Dosing Not Reportable Est GFR ( Amer) 19.3 Est GFR (Non-Af Amer) 16.7 BUN/Creatinine Ratio 23.4 H Glucose 64 L POC Glucose Estimat Average Glucose Hemoglobin A1c Calcium 8.7 Total Bilirubin 0.8 AST 34 ALT 32 Alkaline Phosphatase 103 Total Protein 6.1 Albumin 3.8 Globulin 2.3 L Albumin/Globulin Ratio 1.7 Lipase 99 H SARS-CoV-2, RNA, NAAT NEGATIVE Blood Type Antibody Screen 10/26/21 10/26/21 10/26/21 00:04 06:07 06:20 WBC 5.07 RBC 3.02 L Hgb 10.0 L Hct 32.1 L MCV 106.3 H MCH 33.1 MCHC 31.2 L RDW Std Deviation 70.1 H RDW Coeff of Nhi 18.2 H Plt Count 151 MPV 11.2 H Immature Gran % (Auto) 0.2 Neut % (Auto) 75.0 Lymph % (Auto) 10.8 Josephine % (Auto) 9.1 Eos % (Auto) 4.3 Baso % (Auto) 0.6 Neut # (Auto) 3.80 Lymph # (Auto) 0.55 L Josephine # (Auto) 0.46 Eos # (Auto) 0.22 Baso # (Auto) 0.03 Immature Gran # (Auto) 0.01 Absolute Nucleated RBC 0.03 H Nucleated RBC % (auto) 0.6 Sodium Potassium Chloride Carbon Dioxide Anion Gap BUN Creatinine Est Cr Clr Drug Dosing Est GFR ( Amer) Est GFR (Non-Af Amer) BUN/Creatinine Ratio Glucose POC Glucose 177 H 99 Estimat Average Glucose Hemoglobin A1c Calcium Total Bilirubin AST ALT Alkaline Phosphatase Total Protein Albumin Globulin Albumin/Globulin Ratio Lipase SARS-CoV-2, RNA, NAAT Blood Type Antibody Screen 10/26/21 10/26/21 06:20 06:20 WBC RBC Hgb Hct MCV MCH MCHC RDW Std Deviation RDW Coeff of Nhi Plt Count MPV Immature Gran % (Auto) Neut % (Auto) Lymph % (Auto) Josephine % (Auto) Eos % (Auto) Baso % (Auto) Neut # (Auto) Lymph # (Auto) Josephine # (Auto) Eos # (Auto) Baso # (Auto) Immature Gran # (Auto) Absolute Nucleated RBC Nucleated RBC % (auto) Sodium 144 Potassium 4.1 Chloride 106 Carbon Dioxide 29 Anion Gap 9 BUN 58 H Creatinine 2.54 H Est Cr Clr Drug Dosing 18.9 Est GFR ( Amer) 20.0 Est GFR (Non-Af Amer) 17.2 BUN/Creatinine Ratio 22.8 H Glucose 89 POC Glucose Estimat Average Glucose 137 Hemoglobin A1c 6.4 H Calcium 8.8 Total Bilirubin AST ALT Alkaline Phosphatase Total Protein Albumin Globulin Albumin/Globulin Ratio Lipase SARS-CoV-2, RNA, NAAT Blood Type Antibody Screen (1) Anemia Anemia type: unspecified type Qualified Code(s): D64.9 - Anemia, unspecified
--- NOTE | 2021-10-26 08:38 | CT Scan Report ---
ABDOMEN AND PELVIS CT WITH ORAL CONTRAST CT DOSE: 974.21 mGy.cm HISTORY: diverticulitis with worsening abdominal pain TECHNIQUE: Multiaxial CT images of the abdomen and pelvis were performed following the use of oral co ntrast. A dose lowering technique was utilized adhering to the principles of ALARA. COMPARISON STUDY: Abdomen and pelvis CT 10/21/2021. FINDINGS: Chronic interstitial thickening the lung bases with trace bilateral pleural effusions, unch anged. The heart remains enlarged. Pacemaker wires are noted. Moderate body wall edema is noted. The unenhanced liver, gallbladder, adrenal glands, and pancreas unremarkable. There is a punctate calcifi ed granuloma within the spleen. No retroperitoneal lymphadenopathy. Extensive calcified plaque within the aorta and iliac arteries with probable high-grade stenosis at the takeoff of the left iliac dharmesh ry, unchanged. There is again noted an inflamed diverticulum within the proximal to mid sigmoid colon with pericolonic fat stranding and mild bowel wall thickening. This is consistent with acute diverti culitis. This has slightly improved in the interval. No perforation or abscess identified. Small amou nt of ascites has progressed. No evidence for bowel obstruction. Mild bladder wall thickening. Prior hysterectomy. No pneumoperitoneum. No pneumatosis. No acute fractures within the visualized osseous s tructures. Bilateral perinephric stranding without hydronephrosis. Atrophic left kidney containing mu ltiple stones, unchanged. Stable 1.7 cm hypodense lesion within the left kidney which favors a cyst. IMPRESSION: 1. Mild acute sigmoid diverticulitis which has slightly improved. No perforation or abscess at this t edson. 2. Small amount of ascites which has progressed. 3. No evidence for bowel obstruction. 4. Trace bilateral pleural effusions, unchanged. 5. Additional findings as described above. ACT 112: Negative or not required by law. Electronically signed by: Jeremy Moran M.D. 10/26/2021 8:36 AM
[2021-10-26] MEDS ORDERED: SOD PHOSPHATE/SOD BIPHOSPHATE ENEMA 132 ML BTL PR SCH (09:00)
--- NOTE | 2021-10-26 12:46 | Hospitalist Progress Note ---
Date of Service October 26, 2021 Assessment & Plan (1) Rectal bleed: Plan: 81 yo F with pMHx. of HFrEF, CKD stage 4, DM, paroxysmal atrial fibrillation admitted for rectal bleed after recent hospitalization for diverticulitis. Rectal bleed, 2/2 internal hemorrhoids -Admitted 10/21-10/24, treated for diverticulitis without perforation or abscess, IV antibiotics transferred to p.o. cefdinir and Flagyl. Her Plavix and Eliquis was restarted on discharge. -Repeat CT A/P this admission shows improvement in diverticulitis and no abscess or perforation -Holding Plavix and Eliquis, -GI consulted - sigmoidoscopy with finding of internal hemorrhoids and rec. for general surgery evaluation -General surgery consulted for evaluation of surgical management of hemorrhoids - banding while inpatient considering her risks. Anticoagulation already on hold. Diverticulitis large intestine w/o perforation or abscess w/bleeding: -Last colonoscopy 06/2010, transverse colon polyp, descending colon polyp, sigmoid colon polyp, diverticulosis.consider outpatient colo considering f/h of rectal ca -continue oral Cefdinir/Flagyl. -Pain control with Tylenol and morphine. Avoiding NSAIDs for pain control d/t CK Anemia: -With acute blood loss anemia in the setting of likely anemia of chronic kidney disease -At baseline today. -Monitor H/H, transfusion threshold Hgb < 7. -Holding antiplatelet/anticoagulant Chronic Heart failure with reduced ejection fraction: -Follows closely with heart failure clinic, last echo in November 2020 with EF= 45 - 50% -Patient appears to be euvolemic, some b/l LE edema. -Continue home Bumex -Monitor renal function and electrolytes on labs daily. -Dry weight reported as both 170 and 190 pounds? Monitor I&O's, daily weights. -Low-sodium diet when tolerating PO intake. Chronic kidney disease, stage 4 (severe): -Baseline creatinine 2.5, EGFR 18 cc/min. -Avoid nephrotoxic agents, renally dose all medications. Diabetes: -Accu-Cheks Q6h while NPO, achs when eating, with sliding scale insulin. -Continue Lyrica 25 mg twice daily for neuropathy. Coronary artery disease: -Status post remote multivessel stenting in RCA AWILDA x2 in June 2018. -Plavix held with ongoing rectal bleed, continue beta-suraj, statin. Paroxysmal A-fib: -status post AV clarisse ablation and dual-chamber pacemaker placement. -Continue beta-suraj for rate control. -Holding Eliquis with ongoing rectal bleed. -On telemetry. Hypertension: -Continue metoprolol, please hold for HR <60 or SBP <100. Hypothyroidism: -Continue levothyroxine 25 mcg daily. Polymyalgia rheumatica: -Continue Tylenol as needed for pain. Dispo - OBS med/tele. DVT prophylaxis -SCDs for DVT ppx, holding Eliquis in setting of rectal bleed. Code status -DNR/DNI. (2) Diverticulitis large intestine w/o perforation or abscess w/bleeding: Admission and Anticipated Discharge Date Admission Date: October 25, 2021 Supervising Physician Co-Signing Physician Notes Resident Physician Supervision Note: I independently interviewed and examined the patient and verified the [place] history and physical, reviewed labs and image studies and agree with resident Dr. Seo findings and care plan. Subjective Maureen Hagen is doing okay this morning. She has had loose bowels overnight, unclear if she had any blood in her stool at that time. She denies fevers, chest pain, abdominal pain. Review of Systems Review of Systems: All systems reviewed & are unremarkable except as noted in Subjective Physical Exam Constitutional: well developed and well nourished Eyes: PERRL, conjunctivae normal, anicteric sclerae ENMT: external ear and nose normal, oropharynx normal Neck: normal visual inspection Respiratory: normal respiratory effort, lungs clear to auscultation Cardiovascular: RRR, no murmur, no edema Gastrointestinal (Abdomen): - normal bowel sounds - tender to palpation diffusely, worst in the left lower quadrant - abdomen soft - no guarding Musculoskeletal: no cyanosis or clubbing, extremities motor strength 5/5 Skin: no rashes, warm and dry Neurologic: no focal motor deficits Psychiatric: Orientation: alert Eye Contact: good eye contact Speech: normal rate/rhythm/volume of speech Results & Data Results & Data ([facility]) Vital Signs (Past 12 Hours) Vital Signs Temp Pulse Pulse Resp BP Pulse Ox 10/26/21 07:40 36.6 C 75 16 165/74 H 95 10/26/21 04:39 76 10/26/21 03:16 36.5 C 69 16 144/78 H 100 CBC Results Results Complete Blood Count Results: RBC 3.02 M/uL (4.2-5.4) L 10/26/21 WBC 5.07 K/uL (4.8-10.8) 10/26/21 Hgb 10.0 g/dL (12.0-16.0) L 10/26/21 Hct 32.1 % (37-47) L 10/26/21 Plt Count 151 K/uL (130-400) 10/26/21 Chemistry (BMP) Results BMP Results: Sodium 144 mmol/L (136-145) 10/26/21 Potassium 4.1 mmol/L (3.5-5.1) 10/26/21 Chloride 106 mmol/L (98-107) 10/26/21 Carbon Dioxide 29 mmol/L (21-32) 10/26/21 Anion Gap 9 (3-11) 10/26/21 BUN 58 mg/dl (6-23) H 10/26/21 Creatinine 2.54 mg/dl (0.6-1.2) H 10/26/21 Glucose 89 mg/dl (70-99(Fasting)) 10/26/21 Resident Activity Tracking Resident Involvement: Resident Care Provided Care Provided: Adult [facility]
[2021-10-26] MEDS: HEPARIN 100 UNIT/ML 5ML FLUSH FLUSH PRN (12:57)
[2021-10-26 12:58] LABS: Appearance Urine Clear (Clear); Bilirubin Urine Negative (Negative); Blood Urine Negative (Negative); Color Urine Yellow; Glucose Urine UA Negative (Negative); Ketones Urine Negative (Negative); Leukocyte Esterase Urine Negative (Negative); Nitrite Urine Negative (Negative); Protein Urine Negative (Negative); Specific Gravity Urine 1.008 (1.000-1.030); Urobilinogen Urine Negative (Negative); pH Urine 5.5 (4.5-7.5)
[2021-10-26] MEDS ORDERED: LIDOCAINE 2% 2 ML VIAL/AMP(20MG/ML) INFIL ONE (15:38)
[2021-10-26] MEDS ORDERED: PROPOFOL IV EMULSION 10 MG/ML 20 ML VIAL IV ONE (15:38)
--- NOTE | 2021-10-26 15:55 | Anesthesiology Consultation ---
Date of Service October 26, 2021 Assessment & Plan Chart Review Chart Review: Acceptable Risk for Surgery Consults Requested none ASA ASA4 Proposed Anesthesia Anesthesia Type: MAC Risk / Benefits Reviewed With: PT / POA / Parent / Guardian, Accepts Plan and Informed Consent Obtained History Surgery Operation Date: 10/26/21 17:00 Proposed Procedures p Flexible Sigmoidoscopy Dr. Anabel Little MD Height/Weight Height: 5 ft 6 in Weight: 80.3 kg Allergies Allergy/AdvReac Type Severity Reaction Status Date / Time eptifibatide Allergy Severe ANAPHYLAXIS Verified 10/26/21 15:50 hornet venom Allergy Severe WASP VENOM Verified 10/26/21 15:50 PROTEIN-ANAPHYLAXIS levofloxacin [From Levaquin] Allergy Severe Hives Verified 10/26/21 15:50 atorvastatin Allergy Intermediate MUSCLE PAIN Verified 10/26/21 15:50 ezetimibe Allergy Intermediate MUSCLE PAIN Verified 10/26/21 15:50 simvastatin Allergy Intermediate MUSCLE PAIN Verified 10/26/21 15:50 rosuvastatin [From Crestor] Allergy Rash Verified 10/26/21 15:50 amlodipine AdvReac Severe Nausea Verified 10/26/21 15:50 azithromycin AdvReac Intermediate Palpitation Verified 10/26/21 15:50 s cortisone AdvReac Intermediate INCREASES Verified 10/26/21 15:50 SUGAR AND VOMITING? hydralazine AdvReac Intermediate VOMITING Verified 10/26/21 15:50 ibuprofen AdvReac Intermediate VOMITING Verified 10/26/21 15:50 AND DIARRHEA iodine AdvReac Intermediate SHELLFISH Verified 10/26/21 15:50 - VOMITING shellfish derived AdvReac Intermediate VOMITING Verified 10/26/21 15:50 Sulfa (Sulfonamide AdvReac Intermediate VOMITING Verified 10/26/21 15:50 Antibiotics) warfarin AdvReac Intermediate EXTREME Verified 10/26/21 15:50 BLEEDING TIMES codeine AdvReac Mild VOMITING Verified 10/26/21 15:50 gemfibrozil AdvReac Mild NAUSEA Verified 10/26/21 15:50 meperidine AdvReac Mild VOMITING Verified 10/26/21 15:50 ondansetron AdvReac Mild vomiting Verified 10/26/21 15:50 ranitidine [From Zantac] AdvReac Mild dyspepsia Verified 10/26/21 15:50 Medications Home Medications Medication Instructions Recorded Confirmed Last Taken multivitamin 1 tab PO QAM 06/20/18 10/25/21 10/25/21 nitroglycerin 0.4 mg sublingual 0.4 mg SL Q5M PRN #25 tab 02/26/19 10/25/21 Unknown tablet levothyroxine 25 mcg tablet 25 mcg PO QAM 06/04/19 10/25/21 10/25/21 (Synthroid) sennosides 8.6 mg tablet (Senokot) 8.6 mg PO QAM PRN tab 07/07/20 10/25/21 09/18/20 escitalopram oxalate 5 mg tablet 5 mg PO QAM 07/20/20 10/25/21 10/25/21 potassium chloride 10 mEq 10 meq PO BID 08/08/20 10/25/21 10/25/21 08:00 tablet,extended release albuterol sulfate 2.5 mg CONTINUOUS NEBULIZATION Q6H 11/24/20 10/25/21 Unknown PRN famotidine 20 mg tablet 20 mg PO BID 11/24/20 10/25/21 10/25/21 08:00 ipratropium 0.5 mg-albuterol 3 mg 3 ml INHALATION Q6H PRN 11/24/20 10/25/21 Unknown (2.5 mg base)/3 mL nebulization soln buspirone 10 mg tablet 10 mg PO BID 01/10/21 10/25/21 10/25/21 pregabalin 25 mg capsule (Lyrica) 25 mg PO BID 04/15/21 10/25/21 10/25/21 08:00 clopidogrel 75 mg tablet 75 mg PO QAM #90 tab 05/04/21 10/25/21 10/25/21 allopurinol 300 mg tablet 300 mg PO QAM 07/28/21 10/25/21 10/25/21 insulin aspart U-100 100 unit/mL 11 unit SUBCUT .BID UD 07/28/21 10/25/21 10/25/21 12:00 (3 mL) subcutaneous pen (Novolog Flexpen U-100 Insulin aspart) tramadol 50 mg tablet 50 mg PO BID PRN #14 tab 07/29/21 10/25/21 Unknown metoprolol tartrate 50 mg tablet 25 mg PO DAILY #180 tab 08/24/21 10/25/21 10/25/21 bumetanide 2 mg tablet 2 mg PO DAILY #90 tab 09/07/21 10/25/21 10/25/21 lorazepam 0.5 mg tablet 0.5 mg PO BID PRN 09/07/21 10/25/21 Unknown apixaban 2.5 mg tablet (Eliquis) 2.5 mg PO BID 30 Days #90 tab 10/05/21 10/25/21 10/25/21 08:00 acetaminophen 500 mg tablet 1,000 mg PO AMPM 10/21/21 10/25/21 10/25/21 08:00 (Tylenol Extra Strength) insulin aspart U-100 100 unit/mL 0 unit SUBCUT QDD 10/21/21 10/25/21 10/24/21 (3 mL) subcutaneous pen (Novolog Flexpen U-100 Insulin aspart) insulin glargine 100 unit/mL (3 10 unit SUBCUT QPM 10/21/21 10/25/21 10/24/21 mL) subcutaneous pen (Basaglar KwikPen U-100 Insulin) magnesium oxide 400 mg PO DAILY 10/21/21 10/25/21 10/25/21 cefdinir 300 mg capsule 300 mg PO DAILY 5 Days #5 cap 10/24/21 10/25/21 10/25/21 08:00 metronidazole 500 mg tablet 500 mg PO TID 5 Days #15 tab 10/24/21 10/25/21 10/25/21 08:00 pantoprazole 40 mg tablet,delayed 40 mg PO BID 14 Days #28 tab 10/24/21 10/25/21 10/25/21 08:00 release Active Medications Generic Name Dose Route Start Last Admin Trade Name Cornelioq PRN Reason Stop Dose Admin Acetaminophen 1,000 mg 10/25/21 22:19 10/26/21 07:31 Acetaminophen 500 Mg Tab PO 11/24/21 22:18 1,000 mg BID RAFIA Administration Allopurinol 300 mg 10/26/21 09:00 10/26/21 07:32 Allopurinol 300 Mg Tab PO 11/25/21 08:59 300 mg QAM RAFIA Administration Bumetanide 2 mg 10/26/21 09:00 10/26/21 07:32 Bumetanide 1 Mg Tab PO 11/25/21 08:59 2 mg DAILY RAFIA Administration Buspirone HCl 10 mg 10/25/21 22:19 10/26/21 07:31 Buspirone 5 Mg Tab PO 11/24/21 22:18 10 mg BID RAFIA Administration Cefdinir 300 mg 10/26/21 09:00 10/26/21 07:30 Cefdinir 300 Mg Cap PO 11/05/21 08:59 300 mg DAILY RAFIA Administration Escitalopram Oxalate 5 mg 10/26/21 09:00 10/26/21 07:31 Escitalopram Oxalate 10 Mg Tab PO 11/25/21 08:59 5 mg QAM RAFIA Administration Famotidine 20 mg 10/25/21 22:19 10/26/21 07:31 Famotidine 20 Mg Tab PO 11/24/21 22:18 20 mg BID RAFIA Administration Heparin Sodium (Porcine) 5 ml 10/26/21 00:51 10/26/21 12:57 Heparin 100 Unit/Ml 5ml Flush FLUSH 11/25/21 00:50 5 ml PRN PRN Administration Flush Lactated Ringer's 1,000 mls @ 60 mls/hr 10/25/21 22:19 10/26/21 07:53 Lr IV 11/24/21 22:18 0 mls/hr .[id number] RAFIA Infusion Insulin Aspart 0 units 10/26/21 01:00 10/26/21 12:11 Insulin Aspart Per Unit SC 11/25/21 00:59 Not Given Q6 RAFIA Levothyroxine Sodium 25 mcg 10/26/21 06:30 10/26/21 06:24 Levothyroxine Sodium 25 Mcg Tablet PO 11/25/21 06:29 25 mcg DAILYBB RAFIA Administration Magnesium Oxide 400 mg 10/26/21 09:00 10/26/21 07:32 Magnesium Oxide 400 Mg Tab PO 11/25/21 08:59 400 mg DAILY RAFIA Administration Metoprolol Tartrate 25 mg 10/26/21 09:00 10/26/21 07:31 Metoprolol Tartrate 25 Mg Tab PO 11/25/21 08:59 25 mg DAILY RAFIA Administration Metronidazole 500 mg 10/25/21 22:19 10/26/21 14:10 Metronidazole 500 Mg Tab PO 11/04/21 22:18 500 mg TID RAFIA Administration Pantoprazole Sodium 40 mg 10/25/21 22:19 10/26/21 07:30 Pantoprazole 40 Mg Tab PO 11/24/21 22:18 40 mg BID RAFIA Administration Potassium Chloride 10 meq 10/25/21 22:19 10/26/21 07:30 Potassium Chloride 10 Meq Tabcr PO 11/24/21 22:18 10 meq BIDM RAFIA Administration Pregabalin 25 mg 10/25/21 22:19 10/26/21 07:35 Pregabalin 25 Mg Cap PO 11/24/21 22:18 25 mg BID RAFIA Administration NPO Date Last Intake of Fluids: 10/26/21 Time Last Intake of Fluids: 00:01 Date Last Intake of Solids: 10/26/21 Time Last Intake of Solids: 00:01 Past Medical History Medical History Acute on chronic diastolic heart failure Acute upper gastrointestinal bleeding Acute UTI (urinary tract infection) Anemia Anemia Angina pectoris Blood per rectum CHI (closed head injury) Chronic respiratory failure with hypoxia and hypercapnia COPD with acute exacerbation Depression with anxiety Diabetes Diabetic foot ulcer associated with type 2 diabetes mellitus 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) [place] (dyspnea on exertion) Dyslipidemia Elevated troponin Elevated troponin Elevated troponin I level Fall Fracture of head of left humerus Hematuria HTN (hypertension) Hypercarbia Hypertrophic cardiomyopathy apical variant Hypothyroidism Knee arthropathy Lung cancer Myocardial infarction X4 Paroxysmal A-fib Peripheral neuropathy Proteinuria Thrombocytopenia Thrombocytopenia Vitamin D deficiency Exercise / Class Metabolic Activity IV < 2 Limit ADL/Bedbound Past Family History Family History Father , Patient age 82 of stomach cancer. Cancer Heart disease Diabetes Mother , age 93 of heart issues Stroke Hypertension Heart disease Grandmother (Maternal) Coronary heart disease Stroke Family/Other Multiple sclerosis Brother Coronary heart disease Grandfather (Maternal) Heart disease Grandfather (Paternal) Diabetes Aunt Muscular dystrophy Other Gallbladder disease Kidney stones Past Surgical History Surgical History History of cardioversion MULTIPLE History of cataract surgery History of lung surgery PARTIAL LEFT LOBECTOMY (2013) Hx of brain surgery 2017 S/P FALL/INJURY; SUBSEQUENT BLOOD CLOT EVACUATION Knee joint replacement status S/P cardiac catheterization 7 TOTAL; CARDIAC STENTS X6 S/P hysterectomy S/P tonsillectomy Past Anesthesia History No Family Hx of Anesthesia Complications History of PONV No Hx of PONV and No Hx of Motion Sickness Social History Smoking Status: Never smoker Hx Alcohol Use: No Alcohol type: wine alcohol intake frequency: holidays/special occasions only Hx Substance Use: No substance use type: does not use Physical Exam Vital Signs Last Vital Signs Temp 36.4 C L 10/26/21 15:02 Pulse 74 10/26/21 15:02 Resp 16 10/26/21 15:02 BP 106/71 10/26/21 15:02 Pulse Ox 99 10/26/21 15:02 ENMT Mouth: no TMJ abnormality Thyromental Distance: > or= 3.5 Finger Breadths Mallampati Class: III Neck normal visual inspection and trachea midline; neck extension not limited Respiratory normal respiratory effort Auscultation: + diminished lung sounds Cardiovascular Rate/Rhythm: regular rate and regular rhythm Heart Sounds: no murmur no JVD noted Chest (Breasts) Chest: + pacemaker and + vascular access device or port Musculoskeletal Spine: normal cervical ROM Extremities: full ROM of extremities Neurologic moves all extremities Psychiatric Orientation: alert and oriented x 3 Testing Laboratory Results 10/26/21 06:20 10/26/21 06:20 Hemoglobin A1c 6.4 % (4.5-5.6) H 10/26/21 06:20 Urine Color Yellow 10/26/21 12:44 Urine Appearance Clear (Clear) 10/26/21 12:44 Urine pH 5.5 (4.5-7.5) 10/26/21 12:44 Ur Specific [place] 1.008 (1.000-1.030) 10/26/21 12:44 Urine Protein Negative (Negative) 10/26/21 12:44 Urine Glucose (UA) Negative (Negative) 10/26/21 12:44 Urine Ketones Negative (Negative) 10/26/21 12:44 Urine Nitrite Negative (Negative) 10/26/21 12:44 Ur Leukocyte Esterase Negative (Negative) 10/26/21 12:44 Blood Type A Positive 10/25/21 17:11 Antibody Screen NEGATIVE 10/25/21 17:11 10/26/21 10/26/21 11:31 06:07 POC Glucose 103 H 99 Electrocardiogram 10/21/21 Test Reason : Blood Pressure : / mmHG Vent. Rate : 072 BPM Atrial Rate : 072 BPM P-R Int : 188 ms QRS Dur : 178 ms QT Int : 488 ms P-R-T Axes : 000 270 097 degrees QTc Int : 534 ms AV dual-paced rhythm with occasional Premature ventricular complexes Abnormal ECG When compared with ECG of 28-JUL-2021 22:06, Premature ventricular complexes are now Present Confirmed by Gerry Lawler ([id number]) on 10/21/2021 3:44:55 PM Chest X-Ray 07/28/21 IMPRESSION: There is a decreased inspiratory effort with otherwise no acute chest disease. There is again cardiomegaly with pacer in place. Echocardiogram Date: 12/12/20 EF: 45-50 +pacer hypokinetic septum with mild-mod MR Cardiac Catheterization status post remote multivessel stenting and RCA DESx 2 (06/2018)
[2021-10-26] MEDS ORDERED: PHENYLEPHRINE 100MCG/ML 5ML SYR ONE (16:26)
--- NOTE | 2021-10-26 16:36 | Anesthesiology Progress Note ---
Date of Service October 26, 2021 Anesthesia Post Procedure Vital Signs Vital Signs: Temp Pulse Pulse Pulse Resp BP BP 10/26/21 16:30 78 18 115/62 10/26/21 15:51 36.0 C L 75 18 146/85 H 10/26/21 15:02 36.4 C L 74 16 106/71 10/26/21 07:40 36.6 C 75 16 165/74 H 10/26/21 04:39 76 10/26/21 03:16 36.5 C 69 16 144/78 H 10/25/21 21:30 73 22 10/25/21 21:21 79 21 152/80 H 10/25/21 21:00 74 18 152/80 H 10/25/21 20:30 70 10/25/21 20:01 71 20 134/69 10/25/21 20:00 72 16 10/25/21 19:42 22 10/25/21 19:30 70 23 10/25/21 19:00 70 24 142/64 H 10/25/21 18:30 70 18 10/25/21 18:17 75 22 109/56 L 10/25/21 18:16 79 20 10/25/21 17:30 75 10/25/21 17:26 73 17 10/25/21 17:25 134/69 Pulse Ox 10/26/21 16:30 100 10/26/21 15:51 99 10/26/21 15:02 99 10/26/21 07:40 95 10/26/21 04:39 10/26/21 03:16 100 10/25/21 21:30 10/25/21 21:21 100 10/25/21 21:00 10/25/21 20:30 10/25/21 20:01 99 10/25/21 20:00 99 10/25/21 19:42 94 10/25/21 19:30 99 10/25/21 19:00 10/25/21 18:30 96 10/25/21 18:17 95 10/25/21 18:16 10/25/21 17:30 98 10/25/21 17:26 10/25/21 17:25 Transfer of Care Handoff Completed per policy Notes Mental Status: alert / awake / arousable Patient Amnestic to Procedure: Yes Nausea / Vomiting: adequately controlled Pain: adequately controlled Airway Patency, RR, SpO2: stable & adequate BP & HR: stable & adequate Hydration State: stable & adequate Anesthetic Complications: no major complications apparent and Pt Satisfied with anesthetic care
--- NOTE | 2021-10-26 16:41 | GI REPORT ---
Patient Name: Maureen Hagen Procedure Date: 10/26/2021 3:48 PM Date of : 1940 Admit Type: Inpatient Age: 81 Gender: Female Attending MD: uMrray Little MD Procedure: Flexible Sigmoidoscopy Providers: Murray Little MD Referring MD: Mirna Hankins Indications: Rectal hemorrhage Medicines: Monitored Anesthesia Care Complications: No immediate complications. Estimated Blood Loss: Estimated blood loss: none. Procedure: Pre-Anesthesia Assessment: - Prior to the procedure, a History and Physical was performed, and patient medications and allergies were reviewed. The patient is unable to give consent secondary to the patient being legally incompetent to consent. The risks and benefits of the procedure and the sedation options and risks were discussed with the patient's spouse. All questions were answered and informed consent was obtained. Patient identification and proposed procedure were verified by the physician and the nurse in the pre-procedure area. Mental Status Examination: alert but confused. Airway Examination: normal oropharyngeal airway and neck mobility. Respiratory Examination: clear to auscultation. CV Examination: normal. Prophylactic Antibiotics: The patient does not require prophylactic antibiotics. Prior Anticoagulants: The patient has taken Eliquis (apixaban), last dose was 1 day prior to procedure. ASA Grade Assessment: IV - A patient with severe systemic disease that is a constant threat to life. After reviewing the risks and benefits, the patient was deemed in satisfactory condition to undergo the procedure. The anesthesia plan was to use monitored anesthesia care (MAC). Immediately prior to administration of medications, the patient was re-assessed for adequacy to receive sedatives. The heart rate, respiratory rate, oxygen saturations, blood pressure, adequacy of pulmonary ventilation, and response to care were monitored throughout the procedure. The physical status of the patient was re-assessed after the procedure. After obtaining informed consent, the endoscope was passed under direct vision. Throughout the procedure, the patient's blood pressure, pulse, and oxygen saturations were monitored continuously. The Colonoscope was introduced through the anus and advanced to the sigmoid colon. After obtaining informed consent, the endoscope was passed under direct vision. Throughout the procedure, the patient's blood pressure, pulse, and oxygen saturations were monitored continuously. The flexible sigmoidoscopy was accomplished without difficulty. The patient tolerated the procedure well. The quality of the bowel preparation was poor. Findings: The perianal exam findings include non-thrombosed external hemorrhoids, non-thrombosed internal hemorrhoids and internal hemorrhoids that prolapse with straining, but require manual replacement into the anal canal (Grade III). There is no endoscopic evidence of bleeding, inflammation, mass or polyps in the recto-sigmoid colon. Bleeding internal hemorrhoids were found during retroflexion. The hemorrhoids were Grade III (internal hemorrhoids that prolapse but require manual reduction). Impression: - Preparation of the colon was poor. - Non-thrombosed external hemorrhoids, non-thrombosed internal hemorrhoids and internal hemorrhoids that prolapse with straining, but require manual replacement into the anal canal (Grade III) found on perianal exam. - Bleeding internal hemorrhoids. - No specimens collected. Recommendation: - Return patient to hospital [facility] for ongoing care. MD Murray Marcial MD 10/26/2021 4:40:46 PM This report has been signed electronically. Note Initiated On: 10/26/2021 3:48 PM Number of Addenda: 0 I attest to the content of the Intraoperative Record and orders documented therein, exceptions below {[id number]}
--- NOTE | 2021-10-26 16:45 | Post Operative Brief Note ---
Immediate Post Op Note v1 Date of Surgery October 26, 2021 Pre & Post Diagnosis Operation Date: 10/26/21 17:00 Pre-Op Diagnosis: RECTAL BLEED Post-Op Diagnosis: Hemorrhoids I identified the patient and participated in the time-out.: Yes Procedure Operation Date: 10/26/21 17:00 Actual Procedures p Flexible Sigmoidoscopy - Murray Little MD Surgeon Murray Little MD [employer] none Estimated Blood Loss 0 Findings Consistent with Post-Op Diagnosis Mixed Grade III hemorrhoids with Internal Hemorrhoids with fresh blood on the surface. No blood in the rectum or distal sigmoid colon, no lesions detected in these areas, findings compatible with bleeding from internal hemorrhoids. Recommend consult general surgery to consider hemorrhoid banding or hem orrhoidectomy. Complications none noted
[2021-10-27] MEDS: INSULIN ASPART PER UNIT SC SCH ×5 (00:47→20:40)
[2021-10-27] MEDS: HEPARIN 100 UNIT/ML 5ML FLUSH FLUSH PRN (06:32)
[2021-10-27] MEDS: LEVOTHYROXINE SODIUM 25 MCG TABLET PO SCH (06:33)
[2021-10-27 07:03] LABS: Basophils # (auto) 0.02 K/uL (0-0.2); Basophils % (auto) 0.4 %; Eosinophils # (auto) 0.17 K/uL (0-0.5); Eosinophils % (auto) 3.1 %; Immature Granulocytes # (auto) 0.02 K/uL (0.00-0.02); Immature Granulocytes % (auto) 0.4 %; Lymphocytes # (auto) 0.56 K/uL (1.2-3.4); Lymphocytes % (auto) 10.3 %; Mean Corpuscular Hemoglobin 32.8 pg (25-34); Mean Corpuscular Hgb Conc 30.3 g/dL (32-36); Mean Corpuscular Volume 108.2 fL (80-100); Mean Platelet Volume 11.8 fL (7.4-10.4); Monocytes # (auto) 0.41 K/uL (0.11-0.59); Monocytes % (auto) 7.6 %; Neutrophils # (auto) 4.25 K/uL (1.4-6.5); Neutrophils % (auto) 78.2 %; Platelet Count 162 K/uL (130-400); RDW Coefficient of Variation 18.3 % (11.5-14.5); RDW Standard Deviation 70.7 fL (36.4-46.3); Red Blood Count 3.05 M/uL (4.2-5.4); White Blood Count 5.43 K/uL (4.8-10.8)
[2021-10-27 07:33] LABS: BUN Creatinine Ratio 21.2 (10-20); Calcium 8.4 mg/dl (8.5-10.1); Est GFR (African American) 19.1 ml/min; Est GFR (Non-African American) 16.4 ml/min; Potassium 4.3 mmol/L (3.5-5.1)
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
[2021-10-27] MEDS: METOPROLOL TARTRATE 25 MG TAB PO SCH (08:23)
[2021-10-27] MEDS: ESCITALOPRAM OXALATE 10 MG TAB PO SCH (08:23)
[2021-10-27] MEDS: allopurinoL 300 MG TAB PO SCH (08:23)
[2021-10-27] MEDS: ACETAMINOPHEN 500 MG TAB PO SCH ×2 (08:24→20:43)
[2021-10-27] MEDS: CEFDINIR 300 MG CAP PO SCH (08:24)
[2021-10-27] MEDS: BUMETANIDE 1 MG TAB PO SCH (08:24)
[2021-10-27] MEDS: POTASSIUM CHLORIDE 10 MEQ TABCR PO SCH ×2 (08:24→18:40)
[2021-10-27] MEDS: busPIRone 5 MG TAB PO SCH ×2 (08:24→20:44)
[2021-10-27] MEDS: metroNIDAZOLE 500 MG TAB PO SCH ×3 (08:24→20:45)
[2021-10-27] MEDS: PANTOprazole 40 MG TAB PO SCH ×2 (08:24→20:46)
[2021-10-27] MEDS: FAMOTIDINE 20 MG TAB PO SCH ×2 (08:26→20:45)
[2021-10-27] MEDS: PREGABALIN 25 MG CAP PO SCH ×2 (08:29→20:47)
[2021-10-27] MEDS: MAGNESIUM OXIDE 400 MG TAB PO SCH (08:29)
[2021-10-27] MEDS ORDERED: LACTATED RINGER'S 1,000 ML IV SCH (10:15)
--- NOTE | 2021-10-27 11:40 | Surgery Consultation ---
Date of Consultation October 27, 2021 Assessment & Plan (1) Rectal bleed: (2) Diverticulitis large intestine w/o perforation or abscess w/bleedin year-old female with multiple comorbidities presented back to ER with rectal bleeding. Hemoglobin has been stable at her baseline around 10. Flex sigmoidoscopy yesterday showed no active bleeding of internal hemorrhoids and no rectal mass. Likely bleeding due to Eliquis and Plavix. Plan: No acute surgical intervention recommended for hemorrhoids at this time given her hemoglobin is stable and not having any active bleeding. Would recommend hemorrhoid cream and bowel regimen to prevent constipation can follow-up as outpatient for discussion of rubber band ligation vs hemorrhoidectomy if continues to have bleeding reg diet discussed with medicine team needs case management involved for home issues Dr. Lucio has seen patient and discussed above with patient who agreed with plan. Supervising Physician Co-Signing Physician Notes Seen and examined the patient and agree with the above assessment and plan. She has hemorrhoids, which will be dealt with as an outpatient. Please call with any questions or concerns. History of Present Illness Reason for Consultation: Hemorrhoids Requesting Physician: Mirna Hankins MD Attending Physician: Mirna Hankins MD History of Present Illness Maureen is an 81-year-old female with past medical history of stage IV chronic kidney disease, COPD, dementia, type 2 diabetes, diastolic CHF, diffuse large B- cell lymphoma (08/2012), dyslipidemia, hypertension, hypertrophic cardiomyopathy, hypothyroidism, history of myocardial infarction x4, peripheral neuropathy, proteinuria, subdural hematoma, chronic thrombocytopenia, vitamin D deficiency who presented to the emergency department on 10/25/2021 with complaints of bright red rectal bleeding. Most recently found to have acute diverticulitis on CT abdomen and pelvis 10/21/2021. She was discharged from the hospital 10/24/2021.She states she had a bowel movement and there was bright red blood throughout the toilet bowl. She had flex sigmoidoscopy yesterday by GI which showed internal hemorrhoids without any rectal mass or evidence of active bleeding. Our services consulted for possible hemorrhoidectomy vs hemorrhoid banding. Allergies Allergy/AdvReac Type Severity Reaction Status Date / Time eptifibatide Allergy Severe ANAPHYLAXIS Verified 10/26/21 15:50 hornet venom Allergy Severe WASP VENOM Verified 10/26/21 15:50 PROTEIN-ANAPHYLAXIS levofloxacin [From Levaquin] Allergy Severe Hives Verified 10/26/21 15:50 atorvastatin Allergy Intermediate MUSCLE PAIN Verified 10/26/21 15:50 ezetimibe Allergy Intermediate MUSCLE PAIN Verified 10/26/21 15:50 simvastatin Allergy Intermediate MUSCLE PAIN Verified 10/26/21 15:50 rosuvastatin [From Crestor] Allergy Rash Verified 10/26/21 15:50 amlodipine AdvReac Severe Nausea Verified 10/26/21 15:50 azithromycin AdvReac Intermediate Palpitation Verified 10/26/21 15:50 s cortisone AdvReac Intermediate INCREASES Verified 10/26/21 15:50 SUGAR AND VOMITING? hydralazine AdvReac Intermediate VOMITING Verified 10/26/21 15:50 ibuprofen AdvReac Intermediate VOMITING Verified 10/26/21 15:50 AND DIARRHEA iodine AdvReac Intermediate SHELLFISH Verified 10/26/21 15:50 - VOMITING shellfish derived AdvReac Intermediate VOMITING Verified 10/26/21 15:50 Sulfa (Sulfonamide AdvReac Intermediate VOMITING Verified 10/26/21 15:50 Antibiotics) warfarin AdvReac Intermediate EXTREME Verified 10/26/21 15:50 BLEEDING TIMES codeine AdvReac Mild VOMITING Verified 10/26/21 15:50 gemfibrozil AdvReac Mild NAUSEA Verified 10/26/21 15:50 meperidine AdvReac Mild VOMITING Verified 10/26/21 15:50 ondansetron AdvReac Mild vomiting Verified 10/26/21 15:50 ranitidine [From Zantac] AdvReac Mild dyspepsia Verified 10/26/21 15:50 Home Medications Medication Instructions Recorded Confirmed Type multivitamin 1 tab PO QAM 06/20/18 10/25/21 History nitroglycerin 0.4 mg sublingual 0.4 mg SL Q5M PRN #25 tab 02/26/19 10/25/21 History tablet levothyroxine 25 mcg tablet 25 mcg PO QAM 06/04/19 10/25/21 History (Synthroid) sennosides 8.6 mg tablet (Senokot) 8.6 mg PO QAM PRN tab 07/07/20 10/25/21 History escitalopram oxalate 5 mg tablet 5 mg PO QAM 07/20/20 10/25/21 History potassium chloride 10 mEq 10 meq PO BID 08/08/20 10/25/21 History tablet,extended release albuterol sulfate 2.5 mg CONTINUOUS NEBULIZATION Q6H 11/24/20 10/25/21 History PRN famotidine 20 mg tablet 20 mg PO BID 11/24/20 10/25/21 History ipratropium 0.5 mg-albuterol 3 mg 3 ml INHALATION Q6H PRN 11/24/20 10/25/21 History (2.5 mg base)/3 mL nebulization soln buspirone 10 mg tablet 10 mg PO BID 01/10/21 10/25/21 History pregabalin 25 mg capsule (Lyrica) 25 mg PO BID 04/15/21 10/25/21 History clopidogrel 75 mg tablet 75 mg PO QAM #90 tab 05/04/21 10/25/21 Rx allopurinol 300 mg tablet 300 mg PO QAM 07/28/21 10/25/21 History insulin aspart U-100 100 unit/mL 11 unit SUBCUT .BID UD 07/28/21 10/25/21 History (3 mL) subcutaneous pen (Novolog Flexpen U-100 Insulin aspart) tramadol 50 mg tablet 50 mg PO BID PRN #14 tab 07/29/21 10/25/21 Rx metoprolol tartrate 50 mg tablet 25 mg PO DAILY #180 tab 08/24/21 10/25/21 Rx bumetanide 2 mg tablet 2 mg PO DAILY #90 tab 09/07/21 10/25/21 Rx lorazepam 0.5 mg tablet 0.5 mg PO BID PRN 09/07/21 10/25/21 History apixaban 2.5 mg tablet (Eliquis) 2.5 mg PO BID 30 Days #90 tab 10/05/21 10/25/21 Rx acetaminophen 500 mg tablet 1,000 mg PO AMPM 10/21/21 10/25/21 History (Tylenol Extra Strength) insulin aspart U-100 100 unit/mL 0 unit SUBCUT QDD 10/21/21 10/25/21 History (3 mL) subcutaneous pen (Novolog Flexpen U-100 Insulin aspart) insulin glargine 100 unit/mL (3 10 unit SUBCUT QPM 10/21/21 10/25/21 History mL) subcutaneous pen (Basaglar KwikPen U-100 Insulin) magnesium oxide 400 mg PO DAILY 10/21/21 10/25/21 History cefdinir 300 mg capsule 300 mg PO DAILY 5 Days #5 cap 10/24/21 10/25/21 Rx metronidazole 500 mg tablet 500 mg PO TID 5 Days #15 tab 10/24/21 10/25/21 Rx pantoprazole 40 mg tablet,delayed 40 mg PO BID 14 Days #28 tab 10/24/21 10/25/21 Rx release Patient History Medical History Acute on chronic diastolic heart failure Acute upper gastrointestinal bleeding Acute UTI (urinary tract infection) Anemia Anemia Angina pectoris Blood per rectum CHI (closed head injury) Chronic respiratory failure with hypoxia and hypercapnia COPD with acute exacerbation Depression with anxiety Diabetes Diabetic foot ulcer associated with type 2 diabetes mellitus 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) [place] (dyspnea on exertion) Dyslipidemia Elevated troponin Elevated troponin Elevated troponin I level Fall Fracture of head of left humerus Hematuria HTN (hypertension) Hypercarbia Hypertrophic cardiomyopathy apical variant Hypothyroidism Knee arthropathy Lung cancer Myocardial infarction X4 Paroxysmal A-fib Peripheral neuropathy Proteinuria Thrombocytopenia Thrombocytopenia Vitamin D deficiency Surgical History History of cardioversion MULTIPLE History of cataract surgery History of lung surgery PARTIAL LEFT LOBECTOMY (2013) Hx of brain surgery 2017 S/P FALL/INJURY; SUBSEQUENT BLOOD CLOT EVACUATION Knee joint replacement status S/P cardiac catheterization 7 TOTAL; CARDIAC STENTS X6 S/P hysterectomy S/P tonsillectomy Family History Father , Patient age 82 of stomach cancer. 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 Beliefs That Will Affect Care: None marital status: Current Living Situation: Spouse 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al status: retired 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: Retired/Disabled - [employer] 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 [employer] How many Children do You have: 3 Other Information That Helps Us Care for You: No other: 3 children Feels Safe at Home: Yes Safety Concerns: Feels Safe At This Time Assistive Devices: Glasses, Oxygen - Continuous and Walker Physical Exam Constitutional: WD/WN, vitals as above no acute distress and not ill appearing Neck: normal visual inspection and trachea midline Respiratory: normal respiratory effort; no respiratory distress, no labored breathing and no retractions Skin: no rashes, warm and dry Psychiatric: Orientation: alert and oriented x 3 Affect: + tearful affect Results & Data ([facility]) Vital Signs (Past 12 Hours) Vital Signs Temp Pulse Resp BP Pulse Ox 10/27/21 11:27 36.5 C 81 16 143/72 H 93 10/27/21 07:54 36.6 C 76 16 137/65 94 10/27/21 04:08 36.7 C 78 18 135/77 97 Laboratory Results 10/27/21 10/27/21 10/27/21 Range/Units 11:37 06:35 06:35 WBC 5.43 (4.8-10.8) K/uL RBC 3.05 L (4.2-5.4) M/uL Hgb 10.0 L (12.0-16.0) g/dL Hct 33.0 L (37-47) % MCV 108.2 H (80-100) fL MCH 32.8 (25-34) pg MCHC 30.3 L (32-36) g/dL RDW Std Deviation 70.7 H (36.4-46.3) fL RDW Coeff of Nhi 18.3 H (11.5-14.5) % Plt Count 162 (130-400) K/uL MPV 11.8 H (7.4-10.4) fL Immature Gran % (Auto) 0.4 % Neut % (Auto) 78.2 % Lymph % (Auto) 10.3 % [place] % (Auto) 7.6 % Eos % (Auto) 3.1 % Baso % (Auto) 0.4 % Neut # (Auto) 4.25 (1.4-6.5) K/uL Lymph # (Auto) 0.56 L (1.2-3.4) K/uL [place] # (Auto) 0.41 (0.11-0.59) K/uL Eos # (Auto) 0.17 (0-0.5) K/uL Baso # (Auto) 0.02 (0-0.2) K/uL Immature Gran # (Auto) 0.02 (0.00-0.02) K/uL Sodium 143 (136-145) mmol/L Potassium 4.3 (3.5-5.1) mmol/L Chloride 106 (98-107) mmol/L Carbon Dioxide 28 (21-32) mmol/L Anion Gap 9 (3-11) BUN 56 H (6-23) mg/dl Creatinine 2.64 H (0.6-1.2) mg/dl Est Cr Clr Drug Dosing 18.0 ml/min Est GFR ( Amer) 19.1 ml/min Est GFR (Non-Af Amer) 16.4 ml/min BUN/Creatinine Ratio 21.2 H (10-20) Glucose 100 H (70-99(Fasting)) mg/dl POC Glucose 145 H (70-99) mg/dl Calcium 8.4 L (8.5-10.1) mg/dl Urine Color Urine Appearance (Clear) Urine pH (4.5-7.5) Ur Specific [place] (1.000-1.030) Urine Protein (Negative) Urine Glucose (UA) (Negative) Urine Ketones (Negative) Urine Blood (Negative) Urine Nitrite (Negative) Urine Bilirubin (Negative) Urine Urobilinogen (Negative) Ur Leukocyte Esterase (Negative) 10/27/21 10/27/21 10/26/21 Range/Units 06:22 00:06 20:27 WBC (4.8-10.8) K/uL RBC (4.2-5.4) M/uL Hgb (12.0-16.0) g/dL Hct (37-47) % MCV (80-100) fL MCH (25-34) pg MCHC (32-36) g/dL RDW Std Deviation (36.4-46.3) fL RDW Coeff of Nhi (11.5-14.5) % Plt Count (130-400) K/uL MPV (7.4-10.4) fL Immature Gran % (Auto) % Neut % (Auto) % Lymph % (Auto) % [place] % (Auto) % Eos % (Auto) % Baso % (Auto) % Neut # (Auto) (1.4-6.5) K/uL Lymph # (Auto) (1.2-3.4) K/uL [place] # (Auto) (0.11-0.59) K/uL Eos # (Auto) (0-0.5) K/uL Baso # (Auto) (0-0.2) K/uL Immature Gran # (Auto) (0.00-0.02) K/uL Sodium (136-145) mmol/L Potassium (3.5-5.1) mmol/L Chloride (98-107) mmol/L Carbon Dioxide (21-32) mmol/L Anion Gap (3-11) BUN (6-23) mg/dl Creatinine (0.6-1.2) mg/dl Est Cr Clr Drug Dosing ml/min Est GFR ( Amer) ml/min Est GFR (Non-Af Amer) ml/min BUN/Creatinine Ratio (10-20) Glucose (70-99(Fasting)) mg/dl POC Glucose 114 H 121 H 127 H (70-99) mg/dl Calcium (8.5-10.1) mg/dl Urine Color Urine Appearance (Clear) Urine pH (4.5-7.5) Ur Specific [place] (1.000-1.030) Urine Protein (Negative) Urine Glucose (UA) (Negative) Urine Ketones (Negative) Urine Blood (Negative) Urine Nitrite (Negative) Urine Bilirubin (Negative) Urine Urobilinogen (Negative) Ur Leukocyte Esterase (Negative) 10/26/21 10/26/21 Range/Units 17:30 12:44 WBC (4.8-10.8) K/uL RBC (4.2-5.4) M/uL Hgb (12.0-16.0) g/dL Hct (37-47) % MCV (80-100) fL MCH (25-34) pg MCHC (32-36) g/dL RDW Std Deviation (36.4-46.3) fL RDW Coeff of Nhi (11.5-14.5) % Plt Count (130-400) K/uL MPV (7.4-10.4) fL Immature Gran % (Auto) % Neut % (Auto) % Lymph % (Auto) % [place] % (Auto) % Eos % (Auto) % Baso % (Auto) % Neut # (Auto) (1.4-6.5) K/uL Lymph # (Auto) (1.2-3.4) K/uL [place] # (Auto) (0.11-0.59) K/uL Eos # (Auto) (0-0.5) K/uL Baso # (Auto) (0-0.2) K/uL Immature Gran # (Auto) (0.00-0.02) K/uL Sodium (136-145) mmol/L Potassium (3.5-5.1) mmol/L Chloride (98-107) mmol/L Carbon Dioxide (21-32) mmol/L Anion Gap (3-11) BUN (6-23) mg/dl Creatinine (0.6-1.2) mg/dl Est Cr Clr Drug Dosing ml/min Est GFR ( Amer) ml/min Est GFR (Non-Af Amer) ml/min BUN/Creatinine Ratio (10-20) Glucose (70-99(Fasting)) mg/dl POC Glucose 94 (70-99) mg/dl Calcium (8.5-10.1) mg/dl Urine Color Yellow Urine Appearance Clear (Clear) Urine pH 5.5 (4.5-7.5) Ur Specific [place] 1.008 (1.000-1.030) Urine Protein Negative (Negative) Urine Glucose (UA) Negative (Negative) Urine Ketones Negative (Negative) Urine Blood Negative (Negative) Urine Nitrite Negative (Negative) Urine Bilirubin Negative (Negative) Urine Urobilinogen Negative (Negative) Ur Leukocyte Esterase Negative (Negative)
[2021-10-27] MEDS: LORazepam 0.5 MG TAB PO PRN (13:06)
--- NOTE | 2021-10-27 13:59 | XRay Report ---
SINGLE VIEW CHEST CLINICAL HISTORY: Pain at the infusion port site. FINDINGS: An AP, portable, upright chest radiograph is compared to study dated 07/28/2021 and correlate d with chest CT dated 09/15/2019. The examination is degraded by portable technique and apical lordoti c positioning. A 2-lead cardiac pacemaker and a left subclavian central venous infusion port are unch anged in position. The heart is enlarged noting atherosclerotic calcification of the thoracic aorta. The pulmonary vasculature is noncongested. Small pleural effusions are suspected. Bibasilar opacities likely represent atelectasis. Postoperative change is seen at the left apex. No pneumothorax is iden tified. The skeletal structures are osteopenic. The bony thorax is grossly intact. Arthritic change i s seen in the shoulders and thoracic spine. IMPRESSION: 1. Cardiomegaly with no acute cardiopulmonary abnormality. 2. Suspect small pleural effusions. 3. A left subclavian central venous infusion port is unchanged in position. ACT 112: Negative or not required by law. Electronically signed by: Eliceo Hart M.D. 10/27/2021 1:58 PM
[2021-10-28] MEDS: LEVOTHYROXINE SODIUM 25 MCG TABLET PO SCH (05:37)
[2021-10-28] MEDS: BUMETANIDE 1 MG TAB PO SCH (08:09)
[2021-10-28] MEDS: POTASSIUM CHLORIDE 10 MEQ TABCR PO SCH ×2 (08:09→16:56)
[2021-10-28] MEDS: allopurinoL 300 MG TAB PO SCH (08:10)
[2021-10-28] MEDS: CEFDINIR 300 MG CAP PO SCH (08:10)
[2021-10-28 08:11] LABS: Hematocrit (blood only) 30.7 % (37-47); Hemoglobin 9.5 g/dL (12.0-16.0); Mean Corpuscular Hemoglobin 32.6 pg (25-34); Mean Corpuscular Hgb Conc 30.9 g/dL (32-36); Mean Corpuscular Volume 105.5 fL (80-100); Mean Platelet Volume 10.8 fL (7.4-10.4); Platelet Count 148 K/uL (130-400); RDW Coefficient of Variation 18.1 % (11.5-14.5); RDW Standard Deviation 70.4 fL (36.4-46.3); Red Blood Count 2.91 M/uL (4.2-5.4); White Blood Count 5.99 K/uL (4.8-10.8)
[2021-10-28] MEDS: ESCITALOPRAM OXALATE 10 MG TAB PO SCH (08:11)
[2021-10-28] MEDS: MAGNESIUM OXIDE 400 MG TAB PO SCH (08:12)
[2021-10-28] MEDS: METOPROLOL TARTRATE 25 MG TAB PO SCH (08:12)
[2021-10-28] MEDS: metroNIDAZOLE 500 MG TAB PO SCH ×3 (08:13→20:53)
[2021-10-28] MEDS: PANTOprazole 40 MG TAB PO SCH ×2 (08:13→20:54)
[2021-10-28] MEDS: FAMOTIDINE 20 MG TAB PO SCH ×2 (08:14→20:55)
[2021-10-28] MEDS: busPIRone 5 MG TAB PO SCH ×2 (08:15→20:54)
[2021-10-28] MEDS: ACETAMINOPHEN 500 MG TAB PO SCH ×2 (08:15→20:55)
[2021-10-28] MEDS: INSULIN ASPART PER UNIT SC SCH ×4 (08:22→20:50)
[2021-10-28] MEDS: PREGABALIN 25 MG CAP PO SCH ×2 (08:27→21:06)
[2021-10-28 08:41] LABS: BUN Creatinine Ratio 20.9 (10-20); Calcium 8.5 mg/dl (8.5-10.1); Creatinine Clr Calc Pharmacy 15.7 ml/min; Est GFR (African American) 16.2 ml/min; Potassium 4.4 mmol/L (3.5-5.1)
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
[2021-10-28] MEDS: HYDROCORTISONE 1% CRM 30 GM TUBE EXT SCH (21:09)
[2021-10-29] MEDS: LEVOTHYROXINE SODIUM 25 MCG TABLET PO SCH (06:21)
[2021-10-29 06:35] LABS: Hematocrit (blood only) 31.5 % (37-47); Hemoglobin 9.5 g/dL (12.0-16.0)
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
[2021-10-29 06:55] LABS: Calcium 8.5 mg/dl (8.5-10.1); Creatinine Clr Calc Pharmacy 14.8 ml/min; Est GFR (African American) 15.1 ml/min; Potassium 4.4 mmol/L (3.5-5.1)
[2021-10-29] MEDS ORDERED: LACTATED RINGER'S 1,000 ML IV SCH (07:15)
[2021-10-29] MEDS: METOPROLOL TARTRATE 25 MG TAB PO SCH (08:15)
[2021-10-29] MEDS: ESCITALOPRAM OXALATE 10 MG TAB PO SCH (08:15)
[2021-10-29] MEDS: ACETAMINOPHEN 500 MG TAB PO SCH ×2 (08:16→21:57)
[2021-10-29] MEDS: FAMOTIDINE 20 MG TAB PO SCH ×2 (08:16→21:57)
[2021-10-29] MEDS: PANTOprazole 40 MG TAB PO SCH ×2 (08:16→21:58)
[2021-10-29] MEDS: CEFDINIR 300 MG CAP PO SCH (08:16)
[2021-10-29] MEDS: busPIRone 5 MG TAB PO SCH ×2 (08:16→21:59)
[2021-10-29] MEDS: BUMETANIDE 1 MG TAB PO SCH (08:16)
[2021-10-29] MEDS: metroNIDAZOLE 500 MG TAB PO SCH ×3 (08:16→21:58)
[2021-10-29] MEDS: allopurinoL 300 MG TAB PO SCH (08:17)
[2021-10-29] MEDS: POTASSIUM CHLORIDE 10 MEQ TABCR PO SCH ×2 (08:17→17:40)
[2021-10-29] MEDS: MAGNESIUM OXIDE 400 MG TAB PO SCH (08:17)
[2021-10-29] MEDS: PREGABALIN 25 MG CAP PO SCH ×2 (08:37→21:57)
[2021-10-29] MEDS: INSULIN ASPART PER UNIT SC SCH ×4 (08:37→21:59)
[2021-10-29] MEDS: HYDROCORTISONE 1% CRM 30 GM TUBE EXT SCH ×2 (08:38→21:56)
[2021-10-29] MEDS: HEPARIN 100 UNIT/ML 5ML FLUSH FLUSH PRN (17:22)
[2021-10-29 17:58] LABS: BUN Creatinine Ratio 20.1 (10-20); Calcium 8.7 mg/dl (8.5-10.1); Creatinine Clr Calc Pharmacy 15.9 ml/min; Est GFR (African American) 16.5 ml/min; Est GFR (Non-African American) 14.2 ml/min; Potassium 4.4 mmol/L (3.5-5.1)
[2021-10-30] MEDS: LEVOTHYROXINE SODIUM 25 MCG TABLET PO SCH (05:47)
[2021-10-30 06:21] LABS: Basophils # (auto) 0.03 K/uL (0-0.2); Basophils % (auto) 0.6 %; Eosinophils # (auto) 0.24 K/uL (0-0.5); Eosinophils % (auto) 4.5 %; Hematocrit (blood only) 30.7 % (37-47); Hemoglobin 9.5 g/dL (12.0-16.0); Immature Granulocytes # (auto) 0.04 K/uL (0.00-0.02); Immature Granulocytes % (auto) 0.8 %; Lymphocytes % (auto) 11.3 %; Mean Corpuscular Hemoglobin 33.2 pg (25-34); Mean Corpuscular Hgb Conc 30.9 g/dL (32-36); Mean Corpuscular Volume 107.3 fL (80-100); Mean Platelet Volume 12.6 fL (7.4-10.4); Monocytes # (auto) 0.49 K/uL (0.11-0.59); Monocytes % (auto) 9.3 %; Neutrophils # (auto) 3.89 K/uL (1.4-6.5); Neutrophils % (auto) 73.5 %; Nucleated RBC # (auto) 0.02 K/uL (0-0); Nucleated RBC % (auto) 0.4 %; Platelet Count 160 K/uL (130-400); RDW Coefficient of Variation 17.8 % (11.5-14.5); RDW Standard Deviation 69.3 fL (36.4-46.3); Red Blood Count 2.86 M/uL (4.2-5.4); White Blood Count 5.29 K/uL (4.8-10.8)
[2021-10-30 06:49] LABS: BUN Creatinine Ratio 22.7 (10-20); Calcium 8.3 mg/dl (8.5-10.1); Creatinine Clr Calc Pharmacy 16.7 ml/min; Est GFR (African American) 17.3 ml/min; Est GFR (Non-African American) 14.9 ml/min
[2021-10-30] MEDS: PANTOprazole 40 MG TAB PO SCH ×2 (08:43→21:05)
[2021-10-30] MEDS: metroNIDAZOLE 500 MG TAB PO SCH ×3 (08:44→21:06)
[2021-10-30] MEDS: MAGNESIUM OXIDE 400 MG TAB PO SCH (08:44)
[2021-10-30] MEDS: FAMOTIDINE 20 MG TAB PO SCH ×2 (08:44→21:07)
[2021-10-30] MEDS: ESCITALOPRAM OXALATE 10 MG TAB PO SCH (08:44)
[2021-10-30] MEDS: CEFDINIR 300 MG CAP PO SCH (08:45)
[2021-10-30] MEDS: allopurinoL 300 MG TAB PO SCH (08:45)
[2021-10-30] MEDS: busPIRone 5 MG TAB PO SCH ×2 (08:45→21:07)
[2021-10-30] MEDS: ACETAMINOPHEN 500 MG TAB PO SCH ×2 (08:46→21:09)
[2021-10-30] MEDS: POTASSIUM CHLORIDE 10 MEQ TABCR PO SCH ×2 (08:46→18:01)
[2021-10-30] MEDS: HYDROCORTISONE 1% CRM 30 GM TUBE EXT SCH ×2 (08:47→21:10)
[2021-10-30] MEDS: METOPROLOL TARTRATE 25 MG TAB PO SCH (08:47)
[2021-10-30] MEDS: PREGABALIN 25 MG CAP PO SCH ×2 (08:49→21:05)
[2021-10-30] MEDS: INSULIN ASPART PER UNIT SC SCH ×4 (09:49→21:10)
[2021-10-30] MEDS: HEPARIN 100 UNIT/ML 5ML FLUSH FLUSH PRN (14:09)
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
[2021-10-31] MEDS: HEPARIN 100 UNIT/ML 5ML FLUSH FLUSH PRN (05:44)
[2021-10-31] MEDS: LEVOTHYROXINE SODIUM 25 MCG TABLET PO SCH (05:45)
[2021-10-31 06:13] LABS: Basophils # (auto) 0.02 K/uL (0-0.2); Basophils % (auto) 0.4 %; Eosinophils # (auto) 0.15 K/uL (0-0.5); Eosinophils % (auto) 2.9 %; Hematocrit (blood only) 29.3 % (37-47); Hemoglobin 9.2 g/dL (12.0-16.0); Immature Granulocytes # (auto) 0.03 K/uL (0.00-0.02); Immature Granulocytes % (auto) 0.6 %; Lymphocytes # (auto) 0.62 K/uL (1.2-3.4); Lymphocytes % (auto) 12.2 %; Mean Corpuscular Hemoglobin 32.9 pg (25-34); Mean Corpuscular Hgb Conc 31.4 g/dL (32-36); Mean Corpuscular Volume 104.6 fL (80-100); Mean Platelet Volume 12.3 fL (7.4-10.4); Monocytes # (auto) 0.42 K/uL (0.11-0.59); Monocytes % (auto) 8.3 %; Neutrophils # (auto) 3.85 K/uL (1.4-6.5); Neutrophils % (auto) 75.6 %; Nucleated RBC # (auto) 0.04 K/uL (0-0); Nucleated RBC % (auto) 0.7 %; Platelet Count 146 K/uL (130-400); RDW Coefficient of Variation 17.7 % (11.5-14.5); RDW Standard Deviation 68.8 fL (36.4-46.3); White Blood Count 5.09 K/uL (4.8-10.8)
[2021-10-31 06:31] LABS: BUN Creatinine Ratio 26.4 (10-20); Calcium 7.6 mg/dl (8.5-10.1); Creatinine Clr Calc Pharmacy 20.4 ml/min; Est GFR (African American) 21.9 ml/min; Est GFR (Non-African American) 18.9 ml/min; Potassium 3.8 mmol/L (3.5-5.1)
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
[2021-10-31] MEDS: CEFDINIR 300 MG CAP PO SCH (09:57)
[2021-10-31] MEDS: metroNIDAZOLE 500 MG TAB PO SCH (09:57)
[2021-10-31] MEDS: INSULIN ASPART PER UNIT SC SCH ×4 (10:31→20:33)
[2021-10-31] MEDS: HYDROCORTISONE 1% CRM 30 GM TUBE EXT SCH ×2 (10:32→20:32)
[2021-10-31] MEDS: POTASSIUM CHLORIDE 10 MEQ TABCR PO SCH ×2 (10:35→17:44)
[2021-10-31] MEDS: ACETAMINOPHEN 500 MG TAB PO SCH ×2 (10:35→20:30)
[2021-10-31] MEDS: ESCITALOPRAM OXALATE 10 MG TAB PO SCH (10:36)
[2021-10-31] MEDS: allopurinoL 300 MG TAB PO SCH (10:36)
[2021-10-31] MEDS: busPIRone 5 MG TAB PO SCH ×2 (10:36→20:31)
[2021-10-31] MEDS: MAGNESIUM OXIDE 400 MG TAB PO SCH (10:37)
[2021-10-31] MEDS: METOPROLOL TARTRATE 25 MG TAB PO SCH (10:37)
[2021-10-31] MEDS: FAMOTIDINE 20 MG TAB PO SCH ×2 (10:37→20:31)
[2021-10-31] MEDS: PANTOprazole 40 MG TAB PO SCH ×2 (10:37→20:33)
[2021-10-31] MEDS: ADVANCED PROBIOTIC 1250 MG CAPSULE PO SCH (10:37)
[2021-10-31] MEDS: PREGABALIN 25 MG CAP PO SCH ×2 (10:37→20:40)
[2021-10-31] MEDS: CLOPIDOGREL BISULFATE 75 MG TAB PO SCH (18:23)
[2021-11-01] MEDS: LEVOTHYROXINE SODIUM 25 MCG TABLET PO SCH (05:36)
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
[2021-11-01] MEDS: POTASSIUM CHLORIDE 10 MEQ TABCR PO SCH ×2 (09:03→17:50)
[2021-11-01] MEDS: ACETAMINOPHEN 500 MG TAB PO SCH ×2 (09:03→20:02)
[2021-11-01] MEDS: APIXABAN 2.5 MG TAB PO SCH ×2 (09:04→20:02)
[2021-11-01] MEDS: allopurinoL 300 MG TAB PO SCH (09:04)
[2021-11-01] MEDS: busPIRone 5 MG TAB PO SCH ×2 (09:04→20:02)
[2021-11-01] MEDS: CLOPIDOGREL BISULFATE 75 MG TAB PO SCH (09:07)
[2021-11-01] MEDS: ESCITALOPRAM OXALATE 10 MG TAB PO SCH (09:07)
[2021-11-01] MEDS: METOPROLOL TARTRATE 25 MG TAB PO SCH (09:08)
[2021-11-01] MEDS: PANTOprazole 40 MG TAB PO SCH ×2 (09:08→20:02)
[2021-11-01] MEDS: MAGNESIUM OXIDE 400 MG TAB PO SCH (09:08)
[2021-11-01] MEDS: ADVANCED PROBIOTIC 1250 MG CAPSULE PO SCH (09:08)
[2021-11-01] MEDS: FAMOTIDINE 20 MG TAB PO SCH ×2 (09:08→20:02)
[2021-11-01] MEDS: HYDROCORTISONE 1% CRM 30 GM TUBE EXT SCH ×2 (09:09→20:03)
[2021-11-01] MEDS: PREGABALIN 25 MG CAP PO SCH ×2 (09:10→20:02)
[2021-11-01] MEDS: INSULIN ASPART PER UNIT SC SCH ×4 (09:15→20:46)
[2021-11-02] MEDS: LEVOTHYROXINE SODIUM 25 MCG TABLET PO SCH (05:50)
[2021-11-02] MEDS: HEPARIN 100 UNIT/ML 5ML FLUSH FLUSH PRN (06:34)
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
[2021-11-02 07:09] LABS: Basophils # (auto) 0.03 K/uL (0-0.2); Basophils % (auto) 0.5 %; Eosinophils # (auto) 0.23 K/uL (0-0.5); Eosinophils % (auto) 3.8 %; Hematocrit (blood only) 32.4 % (37-47); Hemoglobin 9.9 g/dL (12.0-16.0); Immature Granulocytes # (auto) 0.04 K/uL (0.00-0.02); Immature Granulocytes % (auto) 0.7 %; Lymphocytes # (auto) 0.61 K/uL (1.2-3.4); Mean Corpuscular Hgb Conc 30.6 g/dL (32-36); Mean Corpuscular Volume 104.9 fL (80-100); Monocytes # (auto) 0.62 K/uL (0.11-0.59); Monocytes % (auto) 10.2 %; Neutrophils # (auto) 4.55 K/uL (1.4-6.5); Neutrophils % (auto) 74.8 %; Nucleated RBC # (auto) 0.07 K/uL (0-0); Nucleated RBC % (auto) 1.1 %; Platelet Count 183 K/uL (130-400); RDW Coefficient of Variation 17.8 % (11.5-14.5); RDW Standard Deviation 67.5 fL (36.4-46.3); Red Blood Count 3.09 M/uL (4.2-5.4); White Blood Count 6.08 K/uL (4.8-10.8)
[2021-11-02 07:31] LABS: BUN Creatinine Ratio 26.6 (10-20); Calcium 8.4 mg/dl (8.5-10.1); Creatinine Clr Calc Pharmacy 19.6 ml/min; Est GFR (Non-African American) 18.1 ml/min; Potassium 4.7 mmol/L (3.5-5.1)
[2021-11-02] MEDS: INSULIN ASPART PER UNIT SC SCH ×4 (08:06→20:10)
[2021-11-02] MEDS: POTASSIUM CHLORIDE 10 MEQ TABCR PO SCH ×2 (08:06→17:10)
[2021-11-02] MEDS: CLOPIDOGREL BISULFATE 75 MG TAB PO SCH (08:07)
[2021-11-02] MEDS: APIXABAN 2.5 MG TAB PO SCH ×2 (08:07→20:05)
[2021-11-02] MEDS: ESCITALOPRAM OXALATE 10 MG TAB PO SCH (08:07)
[2021-11-02] MEDS: allopurinoL 300 MG TAB PO SCH (08:07)
[2021-11-02] MEDS: MAGNESIUM OXIDE 400 MG TAB PO SCH (08:07)
[2021-11-02] MEDS: busPIRone 5 MG TAB PO SCH ×2 (08:07→20:04)
[2021-11-02] MEDS: METOPROLOL TARTRATE 25 MG TAB PO SCH (08:07)
[2021-11-02] MEDS: FAMOTIDINE 20 MG TAB PO SCH ×2 (08:07→20:05)
[2021-11-02] MEDS: ADVANCED PROBIOTIC 1250 MG CAPSULE PO SCH (08:07)
[2021-11-02] MEDS: ACETAMINOPHEN 500 MG TAB PO SCH ×2 (08:07→20:04)
[2021-11-02] MEDS: PANTOprazole 40 MG TAB PO SCH ×2 (08:08→20:06)
[2021-11-02] MEDS: PREGABALIN 25 MG CAP PO SCH ×2 (08:08→20:10)
[2021-11-02] MEDS: HYDROCORTISONE 1% CRM 30 GM TUBE EXT SCH ×2 (12:37→20:06)
--- NOTE | 2021-11-02 16:41 | Billing Data ---
Date of Service November 02, 2021 Coding Level of Care Code 64068 Subseq Hosp Care Lvl 2
[2021-11-03] MEDS: LEVOTHYROXINE SODIUM 25 MCG TABLET PO SCH (05:36)
[2021-11-03] MEDS: HEPARIN 100 UNIT/ML 5ML FLUSH FLUSH PRN (05:55)
[2021-11-03 06:08] LABS: Basophils # (auto) 0.02 K/uL (0-0.2); Basophils % (auto) 0.4 %; Eosinophils # (auto) 0.21 K/uL (0-0.5); Eosinophils % (auto) 3.8 %; Hemoglobin 9.8 g/dL (12.0-16.0); Immature Granulocytes # (auto) 0.04 K/uL (0.00-0.02); Immature Granulocytes % (auto) 0.7 %; Lymphocytes # (auto) 0.46 K/uL (1.2-3.4); Lymphocytes % (auto) 8.2 %; Mean Corpuscular Hemoglobin 32.1 pg (25-34); Mean Corpuscular Hgb Conc 30.6 g/dL (32-36); Mean Corpuscular Volume 104.9 fL (80-100); Mean Platelet Volume 11.2 fL (7.4-10.4); Monocytes # (auto) 0.58 K/uL (0.11-0.59); Monocytes % (auto) 10.4 %; Neutrophils # (auto) 4.27 K/uL (1.4-6.5); Neutrophils % (auto) 76.5 %; Nucleated RBC # (auto) 0.03 K/uL (0-0); Nucleated RBC % (auto) 0.5 %; Platelet Count 182 K/uL (130-400); Red Blood Count 3.05 M/uL (4.2-5.4); White Blood Count 5.58 K/uL (4.8-10.8)
[2021-11-03 06:32] LABS: BUN Creatinine Ratio 28.3 (10-20); Calcium 8.6 mg/dl (8.5-10.1); Est GFR (Non-African American) 19.8 ml/min; Potassium 4.5 mmol/L (3.5-5.1)
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
[2021-11-03] MEDS: POTASSIUM CHLORIDE 10 MEQ TABCR PO SCH ×2 (08:21→17:46)
[2021-11-03] MEDS: ACETAMINOPHEN 500 MG TAB PO SCH ×2 (08:21→20:05)
[2021-11-03] MEDS: allopurinoL 300 MG TAB PO SCH (08:22)
[2021-11-03] MEDS: APIXABAN 2.5 MG TAB PO SCH ×2 (08:22→20:06)
[2021-11-03] MEDS: CLOPIDOGREL BISULFATE 75 MG TAB PO SCH (08:22)
[2021-11-03] MEDS: busPIRone 5 MG TAB PO SCH ×2 (08:22→20:06)
[2021-11-03] MEDS: INSULIN ASPART PER UNIT SC SCH ×4 (08:23→21:31)
[2021-11-03] MEDS: ESCITALOPRAM OXALATE 10 MG TAB PO SCH (08:24)
[2021-11-03] MEDS: ADVANCED PROBIOTIC 1250 MG CAPSULE PO SCH (08:24)
[2021-11-03] MEDS: FAMOTIDINE 20 MG TAB PO SCH ×2 (08:24→20:06)
[2021-11-03] MEDS: PANTOprazole 40 MG TAB PO SCH ×2 (08:25→20:07)
[2021-11-03] MEDS: METOPROLOL TARTRATE 25 MG TAB PO SCH (08:25)
[2021-11-03] MEDS: PREGABALIN 25 MG CAP PO SCH ×2 (08:25→20:13)
[2021-11-03] MEDS: MAGNESIUM OXIDE 400 MG TAB PO SCH (08:25)
[2021-11-03] MEDS: HYDROCORTISONE 1% CRM 30 GM TUBE EXT SCH ×2 (11:28→20:08)
--- NOTE | 2021-11-03 16:44 | Billing Data ---
Date of Service November 03, 2021 Coding Level of Care Code 39628 Subseq Hosp Care Lvl 2
[2021-11-04] MEDS: LEVOTHYROXINE SODIUM 25 MCG TABLET PO SCH (05:39)
[2021-11-04 06:30] LABS: Basophils # (auto) 0.03 K/uL (0-0.2); Basophils % (auto) 0.5 %; Eosinophils # (auto) 0.17 K/uL (0-0.5); Eosinophils % (auto) 2.8 %; Hematocrit (blood only) 30.7 % (37-47); Hemoglobin 9.7 g/dL (12.0-16.0); Immature Granulocytes # (auto) 0.02 K/uL (0.00-0.02); Immature Granulocytes % (auto) 0.3 %; Lymphocytes # (auto) 0.69 K/uL (1.2-3.4); Lymphocytes % (auto) 11.4 %; Mean Corpuscular Hgb Conc 31.6 g/dL (32-36); Mean Corpuscular Volume 104.4 fL (80-100); Mean Platelet Volume 11.6 fL (7.4-10.4); Monocytes # (auto) 0.46 K/uL (0.11-0.59); Monocytes % (auto) 7.6 %; Neutrophils # (auto) 4.68 K/uL (1.4-6.5); Neutrophils % (auto) 77.4 %; Nucleated RBC # (auto) 0.04 K/uL (0-0); Nucleated RBC % (auto) 0.6 %; Platelet Count 188 K/uL (130-400); RDW Coefficient of Variation 17.6 % (11.5-14.5); RDW Standard Deviation 67.6 fL (36.4-46.3); Red Blood Count 2.94 M/uL (4.2-5.4); White Blood Count 6.05 K/uL (4.8-10.8)
[2021-11-04 07:02] LABS: BUN Creatinine Ratio 28.3 (10-20); Calcium 8.4 mg/dl (8.5-10.1); Creatinine Clr Calc Pharmacy 21.7 ml/min; Est GFR (Non-African American) 19.8 ml/min; Potassium 4.9 mmol/L (3.5-5.1)
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
[2021-11-04 08:01] LABS: Reticulocyte % 3.4 % (0.5-2.0)
[2021-11-04] MEDS: POTASSIUM CHLORIDE 10 MEQ TABCR PO SCH ×2 (08:10→16:53)
[2021-11-04] MEDS: HEPARIN 100 UNIT/ML 5ML FLUSH FLUSH PRN ×2 (08:10→16:57)
[2021-11-04] MEDS: ESCITALOPRAM OXALATE 10 MG TAB PO SCH (08:11)
[2021-11-04] MEDS: ACETAMINOPHEN 500 MG TAB PO SCH ×2 (08:11→20:34)
[2021-11-04] MEDS: APIXABAN 2.5 MG TAB PO SCH ×2 (08:11→20:34)
[2021-11-04] MEDS: allopurinoL 300 MG TAB PO SCH (08:11)
[2021-11-04] MEDS: busPIRone 5 MG TAB PO SCH ×2 (08:11→20:35)
[2021-11-04] MEDS: CLOPIDOGREL BISULFATE 75 MG TAB PO SCH (08:11)
[2021-11-04] MEDS: FAMOTIDINE 20 MG TAB PO SCH ×2 (08:12→20:35)
[2021-11-04] MEDS: ADVANCED PROBIOTIC 1250 MG CAPSULE PO SCH (08:13)
[2021-11-04] MEDS: MAGNESIUM OXIDE 400 MG TAB PO SCH (08:13)
[2021-11-04] MEDS: HYDROCORTISONE 1% CRM 30 GM TUBE EXT SCH ×2 (08:13→20:36)
[2021-11-04] MEDS: METOPROLOL TARTRATE 25 MG TAB PO SCH (08:14)
[2021-11-04] MEDS: PANTOprazole 40 MG TAB PO SCH ×2 (08:14→20:38)
[2021-11-04] MEDS: PREGABALIN 25 MG CAP PO SCH ×2 (08:14→20:40)
[2021-11-04] MEDS: SENNA 8.6 MG TAB PO PRN ×2 (08:15→20:35)
[2021-11-04] MEDS: INSULIN ASPART PER UNIT SC SCH ×4 (08:17→20:36)
[2021-11-04] MEDS: LORazepam 0.5 MG TAB PO PRN (16:53)
--- NOTE | 2021-11-04 19:14 | Billing Data ---
Date of Service November 04, 2021 Coding Level of Care Code 35200 Subseq Hosp Care Lvl 1
[2021-11-05] MEDS: LEVOTHYROXINE SODIUM 25 MCG TABLET PO SCH (05:49)
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
[2021-11-05] MEDS: MAGNESIUM OXIDE 400 MG TAB PO SCH (08:34)
[2021-11-05] MEDS: INSULIN ASPART PER UNIT SC SCH ×2 (08:34→12:55)
[2021-11-05] MEDS: FAMOTIDINE 20 MG TAB PO SCH (08:34)
[2021-11-05] MEDS: ADVANCED PROBIOTIC 1250 MG CAPSULE PO SCH (08:34)
[2021-11-05] MEDS: PREGABALIN 25 MG CAP PO SCH (08:34)
[2021-11-05] MEDS: CLOPIDOGREL BISULFATE 75 MG TAB PO SCH (08:34)
[2021-11-05] MEDS: HYDROCORTISONE 1% CRM 30 GM TUBE EXT SCH (08:35)
[2021-11-05] MEDS: POTASSIUM CHLORIDE 10 MEQ TABCR PO SCH (08:35)
[2021-11-05] MEDS: ESCITALOPRAM OXALATE 10 MG TAB PO SCH (08:35)
[2021-11-05] MEDS: ACETAMINOPHEN 500 MG TAB PO SCH (08:35)
[2021-11-05] MEDS: busPIRone 5 MG TAB PO SCH (08:35)
[2021-11-05] MEDS: METOPROLOL TARTRATE 25 MG TAB PO SCH (08:35)
[2021-11-05] MEDS: APIXABAN 2.5 MG TAB PO SCH (08:35)
[2021-11-05] MEDS: allopurinoL 300 MG TAB PO SCH (08:35)
[2021-11-05] MEDS: PANTOprazole 40 MG TAB PO SCH (08:35)
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
--- NOTE | 2021-11-05 18:25 | Billing Data ---
Date of Service November 05, 2021 Coding Level of Care Code D/C DAY MANAGEMENT <30 MINS
== END 2021-11-05 13:58 | DRG 394 ==
LOC: ED 16:06 → 2N 21:05 → SUATTDRO 21:05 → 2N 22:09 → 3E 11-04 21:37
DX: K64.8 Other hemorrhoids; M35.3 Polymyalgia rheumatica; I50.22 Chronic systolic (congestive) heart failure; N17.9 Acute kidney failure, unspecified; Z95.810 Presence of automatic (implantable) cardiac defibrillator; I25.2 Old myocardial infarction; I13.0 Hypertensive heart and chronic kidney disease with heart failure and stage 1 through stage 4 chronic kidney disease, or unspecified chronic kidney disease; I48.0 Paroxysmal atrial fibrillation; K62.5 Hemorrhage of anus and rectum; R45.851 Suicidal ideations; I25.10 Atherosclerotic heart disease of native coronary artery without angina pectoris; Z88.1 Allergy status to other antibiotic agents; Z88.5 Allergy status to narcotic agent; J96.11 Chronic respiratory failure with hypoxia; Z91.041 Radiographic dye allergy status; Z63.8 Other specified problems related to primary support group; Z88.8 Allergy status to other drugs, medicaments and biological substances; N18.4 Chronic kidney disease, stage 4 (severe); F03.90 Unspecified dementia, unspecified severity, without behavioral disturbance, psychotic disturbance, mood disturbance, and anxiety; I42.2 Other hypertrophic cardiomyopathy; Z99.81 Dependence on supplemental oxygen; E11.22 Type 2 diabetes mellitus with diabetic chronic kidney disease; Z88.6 Allergy status to analgesic agent; Z66 Do not resuscitate; K57.32 Diverticulitis of large intestine without perforation or abscess without bleeding; Z88.2 Allergy status to sulfonamides; Z79.4 Long term (current) use of insulin; D62 Acute posthemorrhagic anemia; E03.9 Hypothyroidism, unspecified

== ENCOUNTER 2021-12-16 16:55 | Inpatient (IN) ==
--- NOTE | 2021-12-16 17:17 | Emergency Department Note ---
Impression & Plan Pneumonia due to COVID-19 virus, Pancytopenia, KENDELL (acute kidney injury), Volume overload, Elevated troponin I level ED Provider Note NAME: PING VIZCAINO AGE: 81 SEX: F : 1940 ARRIVES VIA: Ambulance INFORMANT: Patient, ED PROVIDER(S): Johnny Handley MD Chief Complaint: SOB, hypoxia, Covid+ HPI: Patient presents from [facility] due to concern for shortness of breath. The patient has had some increasing congestion with nonproductive cough. The patient is unsure as to whether or not she is vaccinated for COVID but was tested positive for COVID this morning. Patient does wear baseline 3 L nasal cannula but was reported to be in the 70s and thus EMS was called. On arrival she was in the high 90s. Patient does state that she has had symptoms for about a week in duration. Patient states that they have been fairly constant and about the same but no real changes in her symptoms. Patient has noted some leg swelling but is unsure as whether or not it is any better or worse from her normal. Patient states she has been compliant with her medications. Patient denies any chest pains or abdominal pain. No nausea vomiting or diarrhea. ROS: See HPI for pertinent positives and negatives. A total of 10 systems were reviewed and otherwise negative. Past medical history: See below Surgical history: See below Social history: See below Physical Exam: GENERAL: NAD, wearing glasses, wearing a mask, non-toxic. EYE EXAM: Normal conjunctiva. PERRL, no anisocoria and EOM's grossly intact w/o pain. OROPHARYNX: Moist mucus membranes. Grossly normal dentition. NECK: Supple, no nuchal rigidity, no adenopathy, non-tender. No signs of meningismus. LUNGS: Sonorous breath sounds throughout. Normal chest wall mechanics. HEART: NSR, no MRG. ABDOMEN: Abdomen soft, non-tender, normo-active bowel sounds, no masses, no rebound or guarding. BACK: No CVA TTP. SKIN: No rashes and no bruising. UPPER EXTREMITIES: Upper extremities are grossly normal. LOWER EXTREMITIES: Grossly normal, 2+ symmetric lower extremity edema without erythema or calf pain. Compartments are soft neurovascular intact distally. NEURO EXAM: A&O x3, cranial nerves II-XII grossly intact, normal speech, moves all 4 extremities on command w/o issue. Differential diagnoses: Reactive airway disease, pneumonia, pneumothorax, COPD, CHF, infections, cardiac ischemia, pulmonary embolism, musculoskeletal, gastrointestinal, as well as other pathologies. Course: Patient was seen and evaluated the bedside. Full history physical exam was performed. EKG interpreted by me AV paced rhythm, rate of 75, wide QRS. Q waves throughout. Imaging Studies: See Below Cardiac monitoring: An order was placed for continuous cardiac monitoring. The monitor shows a rate of 75 with sinus rhythm. MDM: Patient was seen and due to concern for shortness of breath. Blood work was obtained. Patient did recently test positive for COVID. Patient has been satting well on her home 3 L at this time. Initial dose of antibiotics ordered given the concern for concomitant bacterial pneumonia. Procalcitonin and blood cultures also obtained. The patient did have mild leukopenia of 4 with a hemoglobin of 9. Slight thrombocytopenia 119. Kidney function is slightly elevated compared to prior with creatinine 3.4. BNP and troponin are elevated. Believe this may be secondary to volume overload as well as the patient's COVID illness. Patient does not have any chest pains the patient has gained approximately 2 to 3 kg since her last visit. The patient was ordered a dose of Lasix. Chest x-ray shows cardiomegaly with questionable left retrocardiac opacity. I did speak the on-call hospitalist Dr. Banegas and the patient wa s admitted to the medicine service. 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) BAR[place] (dyspnea on exertion) Dyslipidemia Elevated troponin Elevated troponin Elevated troponin I level Fall Fracture of head of left humerus GI bleed Hematuria HTN (hypertension) Hypercarbia Hypertrophic cardiomyopathy apical variant Hypothyroidism Knee arthropathy Lung cancer Myocardial infarction X4 Paroxysmal A-fib Peripheral neuropathy Proteinuria Thrombocytopenia Thrombocytopenia Vitamin D deficiency Surgical History History of cardioversion MULTIPLE History of cataract surgery History of lung surgery PARTIAL LEFT LOBECTOMY (2014) Hx of brain surgery 2017 S/P FALL/INJURY; SUBSEQUENT BLOOD CLOT EVACUATION Knee joint replacement status S/P cardiac catheterization 7 TOTAL; CARDIAC STENTS X6 S/P hysterectomy S/P tonsillectomy Family History Father , Patient age 82 of stomach cancer. 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 Beliefs That Will Affect Care: None marital status: Current Living Situation: Spouse 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al status: retired 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: Retired/Disabled - [employer] How many Children do You have: 3 other: 3 children Feels Safe at Home: Yes Assistive Devices: Walker Allergies Allergies Allergy/AdvReac Type Severity Reaction Status Date / Time eptifibatide Allergy Severe ANAPHYLAXIS Verified 12/16/21 18:46 hornet venom Allergy Severe WASP VENOM Verified 12/16/21 18:46 PROTEIN-ANAPHYLAXIS levofloxacin [From Levaquin] Allergy Severe Hives Verified 12/16/21 18:46 rosuvastatin [From Crestor] Allergy Intermediate Rash Verified 12/16/21 18:46 amlodipine AdvReac Severe Nausea Verified 12/16/21 18:46 atorvastatin AdvReac Intermediate MUSCLE PAIN Verified 12/16/21 18:46 azithromycin AdvReac Intermediate Palpitation Verified 12/16/21 18:46 s codeine AdvReac Intermediate VOMITING Verified 12/16/21 18:46 cortisone AdvReac Intermediate INCREASES Verified 12/16/21 18:46 SUGAR AND VOMITING? ezetimibe AdvReac Intermediate MUSCLE PAIN Verified 12/16/21 18:46 gemfibrozil AdvReac Intermediate NAUSEA Verified 12/16/21 18:46 hydralazine AdvReac Intermediate VOMITING Verified 12/16/21 18:46 ibuprofen AdvReac Intermediate VOMITING Verified 12/16/21 18:46 AND DIARRHEA iodine AdvReac Intermediate SHELLFISH Verified 12/16/21 18:46 - VOMITING meperidine AdvReac Intermediate VOMITING Verified 12/16/21 18:46 ondansetron AdvReac Intermediate vomiting Verified 12/16/21 18:46 ranitidine [From Zantac] AdvReac Intermediate dyspepsia Verified 12/16/21 18:46 shellfish derived AdvReac Intermediate VOMITING Verified 12/16/21 18:46 simvastatin AdvReac Intermediate MUSCLE PAIN Verified 12/16/21 18:46 Sulfa (Sulfonamide AdvReac Intermediate VOMITING Verified 12/16/21 18:46 Antibiotics) warfarin AdvReac Intermediate EXTREME Verified 12/16/21 18:46 BLEEDING TIMES Home Meds Home Medications Medication Instructions Recorded Confirmed multivitamin 1 tab PO QAM 06/20/18 12/16/21 levothyroxine 25 mcg tablet 25 mcg PO DAILYBB 06/04/19 12/16/21 (Synthroid) famotidine 20 mg tablet 20 mg PO BID 11/24/20 12/16/21 ipratropium 0.5 mg-albuterol 3 mg 3 ml INHALATION Q6H PRN 11/24/20 12/16/21 (2.5 mg base)/3 mL nebulization soln pregabalin 25 mg capsule (Lyrica) 25 mg PO BID 04/15/21 12/16/21 allopurinol 300 mg tablet 300 mg PO QAM 07/28/21 12/16/21 insulin aspart U-100 100 unit/mL 11 unit SUBCUT .BID UD 07/28/21 12/16/21 (3 mL) subcutaneous pen (Novolog Flexpen U-100 Insulin aspart) acetaminophen 500 mg tablet 1,000 mg PO AMPM MDD 3 GRAMS/24 10/21/21 12/16/21 (Tylenol Extra Strength) HOURS insulin aspart U-100 100 unit/mL 0 unit SUBCUT QDD 10/21/21 12/16/21 (3 mL) subcutaneous pen (Novolog Flexpen U-100 Insulin aspart) insulin glargine 100 unit/mL (3 10 unit SUBCUT QPM 10/21/21 12/16/21 mL) subcutaneous pen (Basaglar KwikPen U-100 Insulin) magnesium oxide 400 mg PO DAILY 10/21/21 12/16/21 acetaminophen 325 mg tablet 650 mg PO .Q4-6HRS PRN MDD 3 12/16/21 12/16/21 (Tylenol) GRAMS/24 HOURS cephalexin 500 mg capsule 500 mg PO BID 12/16/21 12/16/21 escitalopram oxalate 10 mg tablet 10 mg PO DAILY 12/16/21 12/16/21 (Lexapro) ferrous gluconate 324 mg (37.5 mg 324 mg PO DAILY 12/16/21 12/16/21 iron) tablet pantoprazole 40 mg tablet,delayed 40 mg PO BID 12/16/21 12/16/21 release tramadol 50 mg tablet 50 mg PO Q12H PRN 12/16/21 12/16/21 Previous Rx's Medication Instructions Recorded clopidogrel 75 mg tablet 75 mg PO QAM #90 tab 05/04/21 metoprolol tartrate 50 mg tablet 25 mg PO DAILY #180 tab 08/24/21 bumetanide 2 mg tablet 2 mg PO DAILY #90 tab 09/07/21 apixaban 2.5 mg tablet (Eliquis) 2.5 mg PO BID 30 Days #90 tab 10/05/21 Results & Data (ED) Vital Signs Vital Signs - 24 hr 12/16/21 16:48 12/16/21 16:49 12/16/21 17:17 Temperature Temperature Source Pulse Rate 74 70 Pulse Rate [Apical] Pulse Rate from SpO2 Sensor 69 Respiratory Rate 28 H 15 Respiratory Effort / Characteristics Short of Breath Respiratory Depth Shallow Respiratory Pattern Tachypnea Blood Pressure 147/70 H Blood Pressure [Right Arm] Blood Pressure Mean 95 Blood Pressure Mean [Right Arm] Pulse Oximetry 87 L 100 100 Oxygen Delivery Method Room Air Nasal Cannula Oxygen Flow Rate 4 4 Sepsis Recent Fever Within 48 Hours Yes Sepsis New/Unexplained Change in Mental Status No Sepsis Action Taken by Nursing No Action Required 12/16/21 17:30 12/16/21 17:34 12/16/21 18:00 Temperature 36.6 C Temperature Source Oral Pulse Rate 70 70 Pulse Rate [Apical] Pulse Rate from SpO2 Sensor 70 Respiratory Rate 20 22 Respiratory Effort / Characteristics Respiratory Depth Respiratory Pattern Blood Pressure 145/74 H 139/65 Blood Pressure [Right Arm] Blood Pressure Mean 97 89 Blood Pressure Mean [Right Arm] Pulse Oximetry 100 Oxygen Delivery Method Oxygen Flow Rate Sepsis Recent Fever Within 48 Hours Sepsis New/Unexplained Change in Mental Status Sepsis Action Taken by Nursing 12/16/21 18:30 12/16/21 18:59 12/16/21 19:57 Temperature Temperature Source Pulse Rate 70 Pulse Rate [Apical] 70 Pulse Rate from SpO2 Sensor 69 Respiratory Rate 18 20 Respiratory Effort / Characteristics Respiratory Depth Respiratory Pattern Blood Pressure 143/71 H Blood Pressure [Right Arm] 144/81 H Blood Pressure Mean 95 Blood Pressure Mean [Right Arm] 102 Pulse Oximetry 97 98 95 Oxygen Delivery Method Nasal Cannula Nasal Cannula Oxygen Flow Rate 4 3 Sepsis Recent Fever Within 48 Hours Sepsis New/Unexplained Change in Mental Status Sepsis Action Taken by [facility] Medications Current Medication List: was personally reviewed by me Laboratory Data Attestation: I reviewed the patient's lab results. Result diagrams: 12/16/21 17:48 12/16/21 17:48 Lab Results 12/16/21 12/16/21 12/16/21 Range/Units 17:08 17:48 17:48 WBC 4.07 L (4.8-10.8) K/uL RBC 2.94 L (4.2-5.4) M/uL Hgb 9.1 L (12.0-16.0) g/dL Hct 31.1 L (37-47) % MCV 105.8 H (80-100) fL MCH 31.0 (25-34) pg MCHC 29.3 L (32-36) g/dL RDW Std Deviation 74.7 H (36.4-46.3) fL RDW Coeff of Nhi 19.5 H (11.5-14.5) % Plt Count 119 L (130-400) K/uL MPV 12.0 H (7.4-10.4) fL Immature Gran % (Auto) 0.7 % Neut % (Auto) 69.2 % Lymph % (Auto) 19.4 % Ceiba % (Auto) 8.8 % Eos % (Auto) 1.7 % Baso % (Auto) 0.2 % Neut # (Auto) 2.81 (1.4-6.5) K/uL Lymph # (Auto) 0.79 L (1.2-3.4) K/uL Ceiba # (Auto) 0.36 (0.11-0.59) K/uL Eos # (Auto) 0.07 (0-0.5) K/uL Baso # (Auto) 0.01 (0-0.2) K/uL Immature Gran # (Auto) 0.03 H (0.00-0.02) K/uL Absolute Nucleated RBC 0.05 H (0-0) K/uL Nucleated RBC % (auto) 1.1 % Platelet Estimate Decreased L (Normal) Polychromasia 1+ Hypochromasia Present PT (9.0-12.0) Seconds INR (0.9-1.1) APTT (21.0-31.0) Seconds PTT Ratio Sodium 143 (136-145) mmol/L Potassium 4.0 (3.5-5.1) mmol/L Chloride 101 (98-107) mmol/L Carbon Dioxide 32 (21-32) mmol/L Anion Gap 10 (3-11) BUN 75 H (6-23) mg/dl Creatinine 3.42 H (0.6-1.2) mg/dl Est Cr Clr Drug Dosing 13.7 ml/min Est GFR ( Amer) 13.9 ml/min Est GFR (Non-Af Amer) 12.0 ml/min BUN/Creatinine Ratio 21.9 H (10-20) Glucose 134 H (70-99(Fasting)) mg/dl Lactate (0.4-2.0) mmol/L Calcium 8.4 L (8.5-10.1) mg/dl Magnesium 2.6 H (1.7-2.4) mg/dl Total Bilirubin 0.8 (0.2-1.0) mg/dl AST 21 (13-39) U/L ALT 11 (7-52) U/L Alkaline Phosphatase 127 H (34-104) U/L Troponin I High Sens 69.0 H* (0-14) pg/ml B-Natriuretic Peptide (0-100) pg/ml Total Protein 5.7 L (6.0-8.3) gm/dl Albumin 3.6 (3.4-5.0) gm/dl Globulin 2.1 L (2.5-4.0) gm/dl Albumin/Globulin Ratio 1.7 (0.9-2) SARS-CoV-2, RNA, NAAT POSITIVE A* (NEGATIVE) 12/16/21 12/16/21 12/16/21 Range/Units 17:48 18:47 20:10 WBC (4.8-10.8) K/uL RBC (4.2-5.4) M/uL Hgb (12.0-16.0) g/dL Hct (37-47) % MCV (80-100) fL MCH (25-34) pg MCHC (32-36) g/dL RDW Std Deviation (36.4-46.3) fL RDW Coeff of Nhi (11.5-14.5) % Plt Count (130-400) K/uL MPV (7.4-10.4) fL Immature Gran % (Auto) % Neut % (Auto) % Lymph % (Auto) % Ceiba % (Auto) % Eos % (Auto) % Baso % (Auto) % Neut # (Auto) (1.4-6.5) K/uL Lymph # (Auto) (1.2-3.4) K/uL Ceiba # (Auto) (0.11-0.59) K/uL Eos # (Auto) (0-0.5) K/uL Baso # (Auto) (0-0.2) K/uL Immature Gran # (Auto) (0.00-0.02) K/uL Absolute Nucleated RBC (0-0) K/uL Nucleated RBC % (auto) % Platelet Estimate (Normal) Polychromasia Hypochromasia PT 11.3 (9.0-12.0) Seconds INR 1.1 (0.9-1.1) APTT 37.0 H (21.0-31.0) Seconds PTT Ratio 1.3 Sodium (136-145) mmol/L Potassium (3.5-5.1) mmol/L Chloride (98-107) mmol/L Carbon Dioxide (21-32) mmol/L Anion Gap (3-11) BUN (6-23) mg/dl Creatinine (0.6-1.2) mg/dl Est Cr Clr Drug Dosing ml/min Est GFR ( Amer) ml/min Est GFR (Non-Af Amer) ml/min BUN/Creatinine Ratio (10-20) Glucose (70-99(Fasting)) mg/dl Lactate (0.4-2.0) mmol/L Calcium (8.5-10.1) mg/dl Magnesium (1.7-2.4) mg/dl Total Bilirubin (0.2-1.0) mg/dl AST (13-39) U/L ALT (7-52) U/L Alkaline Phosphatase (34-104) U/L Troponin I High Sens 72.4 H* (0-14) pg/ml B-Natriuretic Peptide 1933 H (0-100) pg/ml Total Protein (6.0-8.3) gm/dl Albumin (3.4-5.0) gm/dl Globulin (2.5-4.0) gm/dl Albumin/Globulin Ratio (0.9-2) SARS-CoV-2, RNA, NAAT (NEGATIVE) 12/16/21 Range/Units 20:10 WBC (4.8-10.8) K/uL RBC (4.2-5.4) M/uL Hgb (12.0-16.0) g/dL Hct (37-47) % MCV (80-100) fL MCH (25-34) pg MCHC (32-36) g/dL RDW Std Deviation (36.4-46.3) fL RDW Coeff of Nhi (11.5-14.5) % Plt Count (130-400) K/uL MPV (7.4-10.4) fL Immature Gran % (Auto) % Neut % (Auto) % Lymph % (Auto) % Ceiba % (Auto) % Eos % (Auto) % Baso % (Auto) % Neut # (Auto) (1.4-6.5) K/uL Lymph # (Auto) (1.2-3.4) K/uL Ceiba # (Auto) (0.11-0.59) K/uL Eos # (Auto) (0-0.5) K/uL Baso # (Auto) (0-0.2) K/uL Immature Gran # (Auto) (0.00-0.02) K/uL Absolute Nucleated RBC (0-0) K/uL Nucleated RBC % (auto) % Platelet Estimate (Normal) Polychromasia Hypochromasia PT (9.0-12.0) Seconds INR (0.9-1.1) APTT (21.0-31.0) Seconds PTT Ratio Sodium (136-145) mmol/L Potassium (3.5-5.1) mmol/L Chloride (98-107) mmol/L Carbon Dioxide (21-32) mmol/L Anion Gap (3-11) BUN (6-23) mg/dl Creatinine (0.6-1.2) mg/dl Est Cr Clr Drug Dosing ml/min Est GFR ( Amer) ml/min Est GFR (Non-Af Amer) ml/min BUN/Creatinine Ratio (10-20) Glucose (70-99(Fasting)) mg/dl Lactate 1.3 (0.4-2.0) mmol/L Calcium (8.5-10.1) mg/dl Magnesium (1.7-2.4) mg/dl Total Bilirubin (0.2-1.0) mg/dl AST (13-39) U/L ALT (7-52) U/L Alkaline Phosphatase (34-104) U/L Troponin I High Sens (0-14) pg/ml B-Natriuretic Peptide (0-100) pg/ml Total Protein (6.0-8.3) gm/dl Albumin (3.4-5.0) gm/dl Globulin (2.5-4.0) gm/dl Albumin/Globulin Ratio (0.9-2) SARS-CoV-2, RNA, NAAT (NEGATIVE) Administered Medications Discontinued Medications Furosemide (Furosemide 40 Mg/4 Ml Vial) 40 mg IV ONE ONE Stop: 12/16/21 19:01 Last Admin: 12/16/21 19:42 Dose: 40 mg Documented by: [id number] Cefepime HCl (Maxipime) 2,000 mg in 20 mls @ 5 mls/min IV NOW STA; Protocol Stop: 12/16/21 17:28 Last Admin: 12/16/21 17:46 Dose: 5 mls/min Documented by: [id number] Imaging Data Radiologist's Impression: Chest X-Ray 12/16/21 17:25 XR chest 1V portable CLINICAL HISTORY: Dyspnea TECHNIQUE: Single frontal radiograph of the chest was obtained. Comparison: Comparison is made to chest radiograph 10/27/2021 FINDINGS: Dual lead pacemaker is seen. A port catheter is unchanged. Cardiomegaly is noted. Questionable left retrocardiac opacity. No evidence of pleural effusion or pneumothorax. IMPRESSION: Cardiomegaly is seen. Questionable left retrocardiac opacity which may represent atelectasis, pneumonia, and/or aspiration. ACT 112: Negative or not required by law. Electronically signed by: Campos Mathur M.D. 12/16/2021 6:11 PM Discharge Plan Visit Data Chief Complaint: Shortness of Breath/Dyspnea ED Provider: Johnny Handley Discharge Problem: Pneumonia due to COVID-19 virus, Pancytopenia, KENDELL (acute kidney injury), Volume overload, Elevated troponin I level Patient Disposition: Admitted As Inpatient Forms Stand Alone Forms: [facility] Prescriptions Prescriptions: No Action clopidogrel 75 mg tablet 75 mg PO QAM Qty: 90 RF: 3 metoprolol tartrate 50 mg tablet 25 mg PO DAILY Qty: 180 RF: 3 Eliquis 2.5 mg tablet 2.5 mg PO BID 30 Days Qty: 90 RF: 3 bumetanide 2 mg tablet 2 mg PO DAILY Qty: 90 RF: 3 pregabalin [Lyrica] 25 mg capsule 25 mg PO BID RF: 0 multivitamin Tablet 1 tab PO QAM RF: 0 levothyroxine [Synthroid] 25 mcg tablet 25 mcg PO DAILYBB RF: 0 ipratropium-albuterol 0.5 mg-3 mg(2.5 mg base)/3 mL Solution For Nebulization 3 ml INHALATION Q6H PRN (Reason: Shortness Of Breath Or Wheezing) RF: 0 famotidine 20 mg tablet 20 mg PO BID RF: 0 allopurinol 300 mg tablet 300 mg PO QAM RF: 0 insulin aspart U-100 [Novolog Flexpen U-100 Insulin] 100 unit/mL (3 mL) insulin pen 11 unit SUBCUT .BID UD RF: 0 acetaminophen [Tylenol] 325 mg Tablet 650 mg PO .Q4-6HRS MDD 3 GRAMS/24 HOURS PRN (Reason: FEVER/PAIN) RF: 0 cephalexin 500 mg capsule 500 mg PO BID RF: 0 pantoprazole 40 mg Tablet,Delayed Release (Dr/Ec) 40 mg PO BID RF: 0 escitalopram oxalate [Lexapro] 10 mg Tablet 10 mg PO DAILY RF: 0 ferrous gluconate 324 mg (37.5 mg iron) Tablet 324 mg PO DAILY RF: 0 tramadol 50 mg tablet 50 mg PO Q12H PRN (Reason: pain) RF: 0 acetaminophen [Tylenol Extra Strength] 500 mg Tablet 1,000 mg PO AMPM MDD 3 GRAMS/24 HOURS RF: 0 insulin aspart U-100 [Novolog Flexpen U-100 Insulin] 100 unit/mL (3 mL) insulin pen 0 unit SUBCUT QDD RF: 0 magnesium oxide 400 mg magnesium Tablet 400 mg PO DAILY RF: 0 Basaglar KwikPen U-100 Insulin 100 unit/mL (3 mL) insulin pen 10 unit SUBCUT QPM RF: 0 Referrals Referrals: Lizet Jeter DO [Primary Care Provider] -
[2021-12-16] MEDS ORDERED: CEFEPIME 2,000 MG/20 ML VIAL IV STA (17:25)
--- NOTE | 2021-12-16 18:12 | XRay Report ---
XR chest 1V portable CLINICAL HISTORY: Dyspnea TECHNIQUE: Single frontal radiograph of the chest was obtained. Comparison: Comparison is made to chest radiograph 10/27/2021 FINDINGS: Dual lead pacemaker is seen. A port catheter is unchanged. Cardiomegaly is noted. Questionable left r etrocardiac opacity. No evidence of pleural effusion or pneumothorax. IMPRESSION: Cardiomegaly is seen. Questionable left retrocardiac opacity which may represent atelectasis, pneumon ia, and/or aspiration. ACT 112: Negative or not required by law. Electronically signed by: Campos Mathur M.D. 12/16/2021 6:11 PM
[2021-12-16 18:52] LABS: Albumin Globulin Ratio 1.7 (0.9-2); Albumin Level 3.6 gm/dl (3.4-5.0); BUN Creatinine Ratio 21.9 (10-20); Bilirubin,Total 0.8 mg/dl (0.2-1.0); Calcium 8.4 mg/dl (8.5-10.1); Creatinine Clr Calc Pharmacy 13.7 ml/min; Est GFR (African American) 13.9 ml/min; Globulin 2.1 gm/dl (2.5-4.0); Magnesium 2.6 mg/dl (1.7-2.4); Total Protein 5.7 gm/dl (6.0-8.3)
[2021-12-16] MEDS ORDERED: FUROSEMIDE 40 MG/4 ML VIAL IV ONE (19:00)
[2021-12-16 19:02] LABS: INR 1.1 (0.9-1.1); Partial Thromboplastin Ratio 1.3; Prothrombin Time 11.3 Seconds (9.0-12.0)
[2021-12-16 19:41] LABS: Hematocrit (blood only) 31.1 % (37-47); Hemoglobin 9.1 g/dL (12.0-16.0); Mean Corpuscular Hgb Conc 29.3 g/dL (32-36); Mean Corpuscular Volume 105.8 fL (80-100); Nucleated RBC # (auto) 0.05 K/uL (0-0); Nucleated RBC % (auto) 1.1 %; Platelet Count 119 K/uL (130-400); RDW Coefficient of Variation 19.5 % (11.5-14.5); RDW Standard Deviation 74.7 fL (36.4-46.3); Red Blood Count 2.94 M/uL (4.2-5.4); White Blood Count 4.07 K/uL (4.8-10.8)
[2021-12-16 19:42] LABS: Basophils # (auto) 0.01 K/uL (0-0.2); Basophils % (auto) 0.2 %; Eosinophils # (auto) 0.07 K/uL (0-0.5); Eosinophils % (auto) 1.7 %; Hypochromasia Present; Immature Granulocytes # (auto) 0.03 K/uL (0.00-0.02); Immature Granulocytes % (auto) 0.7 %; Lymphocytes # (auto) 0.79 K/uL (1.2-3.4); Lymphocytes % (auto) 19.4 %; Monocytes # (auto) 0.36 K/uL (0.11-0.59); Monocytes % (auto) 8.8 %; Neutrophils # (auto) 2.81 K/uL (1.4-6.5); Neutrophils % (auto) 69.2 %; Platelet Estimate Decreased (Normal); Polychromasia 1+
--- NOTE | 2021-12-16 19:58 | History & Physical Report ---
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 Presented to [facility] ED on 12/16 for shortness of breath and hypoxia - found to be positive for COVID-19. Shortness of Breath and Hypoxia, improving; COVID-19; Possible Exacerbation of HFmrEF Unclear etiology of shortness of breath and hypoxia: may be in part due to COVID-19 infection, although patient also reports orthopnea and increased LE edema for last several days. Appears mildly hypervolemic on exam and BNP 1933 (no previous baseline), but CXR without overt pulmonary edema, and without overt pneumonia either. - admit to med/tele with airborne precautions - start Dexamethasone 6mg IV daily - will defer on Remdesivir as patient's eGFR is <30 - Duonebs PRN and Mucinex 600mg PO BID - s/p Lasix 40mg IV x1 in ED - will defer on further doses for now given KENDELL (see below) - ordered TTE (last EF was 45-50% ~1 year ago) - s/p Cefepime in ED - will defer on further abx at this time as minimal evidence for pneumonia and procal normal - strict I/Os, daily weights - trend CBC in AM KENDELL on CKD4 Cr 3.42, BUN:Cr ratio >20, baseline Cr ~2.3-2.8. Suspect pre-renal injury with unclear etiology: per history patient reports decreased fluid intake and overall PO intake in context of current illness, but also does appear mildly fluid overloaded per history/exam/labs. - s/p Lasix in ED - will hold on further doses as stated above - hold home Bumex - avoid nephrotoxic medications - held home Allopurinol - hold on IVFs for now given concern for acute CHF - trend BMP in AM Elevated Troponin Trop 69 --> 72 after 2 hours. No chest pain and EKG without ST/T changes although is paced. Suspect demand ischemia due to dehydration +/- acute CHF in context of COVID-19. - trend again in AM - PRN Nitro and EKG for chest pain Chronic Medical Conditions: A-fib: s/p PPM and ablation. Continue home Eliquis and Lopressor CAD: continue home Plavix T2DM: A1c 6.4 in 10/2021. SSI and basal insulin ordered. Diabetes-associated neuropathy: continue home Pregabalin and PRN Tramadol Hypothyroidism:TSH 3.2 in 07/2021. Continue home Synthroid GERD: continue home Pepcid and Protonix Macrocytic Anemia: ordered B12/folate in AM. continue home ferrous gluconate Depression/Anxiety: continue home Lexapro H/o B-cell lymphoma: treated in 2012, no current chemotherapy, although chest port remains intact. No s/s cellulitis. Monitor. FEN/GI: DM2/heart-healthy/low-sodium diet; no IVFs DVT Prophylaxis: Plavix/Eliquis Code Status: DNR/DNI Disposition: med/tele (2) Shortness of breath: (3) Chronic respiratory failure with hypoxia and hypercapnia: (4) Acute kidney injury superimposed on CKD: (5) Heart failure with mid-range ejection fraction: (6) Pancytopenia: (7) Diffuse large B-cell lymphoma of extranodal site: (8) Paroxysmal A-fib: (9) Pacemaker: (10) Diabetes: (11) Polymyalgia rheumatica: (12) Dementia: (13) Hypothyroidism: (14) Depression with anxiety: (15) Elevated troponin: History of Present Illness Chief Complaint: shortness of breath Primary Care Provider: DO Maureen Lambert Xiao is an 81yo female with PMHx significant for chronic hypoxic hypercapnic respiratory failure (on 3L NC at home), CAD (on Plavix), 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 Patient reports having nasal/sinus congestion, non-productive cough and worsening shortness of breath for the last several days. She tested positive for COVID-19 this morning via home rapid test. She usually has baseline 3L/min NC re quirement but was reportedly hypoxic to 70s on this early today so EMS was called. Patient is unsure if she has been vaccinated for COVID-19. Denies fever/chills or chest pain. In the ED the patient was tachypneic to 28 and hypoxic to 87% initially, although SpO2 has remained in high 90s on 4L NC. Labs significant for moderate lymphopenia 0.79, Hgb 9.1 (~baseline), plts 119. BUN 75/Cr 3.42 (higher than baseline). BNP 1933. hsTrop 69 (EKG showing AV-dual paced rhythm). Repeat 2 hours later was 72 (minimal change) Procal 0.26, Lactate 1.3. COVID-19 positive. CXR with chronic cardiomegaly and some cephalization but without evidence for pulmonary edema or pleural effusions. No overt opacities either although there is questionable left retrocardiac opacity which may represent PNA. Patient was given Cefepime 2g IV x1 and Lasix 40mg IV x1. Allergies Allergy/AdvReac Type Severity Reaction Status Date / Time eptifibatide Allergy Severe ANAPHYLAXIS Verified 12/16/21 18:46 hornet venom Allergy Severe WASP VENOM Verified 12/16/21 18:46 PROTEIN-ANAPHYLAXIS levofloxacin [From Levaquin] Allergy Severe Hives Verified 12/16/21 18:46 rosuvastatin [From Crestor] Allergy Intermediate Rash Verified 12/16/21 18:46 amlodipine AdvReac Severe Nausea Verified 12/16/21 18:46 atorvastatin AdvReac Intermediate MUSCLE PAIN Verified 12/16/21 18:46 azithromycin AdvReac Intermediate Palpitation Verified 12/16/21 18:46 s codeine AdvReac Intermediate VOMITING Verified 12/16/21 18:46 cortisone AdvReac Intermediate INCREASES Verified 12/16/21 18:46 SUGAR AND VOMITING? ezetimibe AdvReac Intermediate MUSCLE PAIN Verified 12/16/21 18:46 gemfibrozil AdvReac Intermediate NAUSEA Verified 12/16/21 18:46 hydralazine AdvReac Intermediate VOMITING Verified 12/16/21 18:46 ibuprofen AdvReac Intermediate VOMITING Verified 12/16/21 18:46 AND DIARRHEA iodine AdvReac Intermediate SHELLFISH Verified 12/16/21 18:46 - VOMITING meperidine AdvReac Intermediate VOMITING Verified 12/16/21 18:46 ondansetron AdvReac Intermediate vomiting Verified 12/16/21 18:46 ranitidine [From Zantac] AdvReac Intermediate dyspepsia Verified 12/16/21 18:46 shellfish derived AdvReac Intermediate VOMITING Verified 12/16/21 18:46 simvastatin AdvReac Intermediate MUSCLE PAIN Verified 12/16/21 18:46 Sulfa (Sulfonamide AdvReac Intermediate VOMITING Verified 12/16/21 18:46 Antibiotics) warfarin AdvReac Intermediate EXTREME Verified 12/16/21 18:46 BLEEDING TIMES Home Medications Medication Instructions Recorded Confirmed Type multivitamin 1 tab PO QAM 06/20/18 12/16/21 History levothyroxine 25 mcg tablet 25 mcg PO DAILYBB 06/04/19 12/16/21 History (Synthroid) famotidine 20 mg tablet 20 mg PO BID 11/24/20 12/16/21 History ipratropium 0.5 mg-albuterol 3 mg 3 ml INHALATION Q6H PRN 11/24/20 12/16/21 History (2.5 mg base)/3 mL nebulization soln pregabalin 25 mg capsule (Lyrica) 25 mg PO BID 04/15/21 12/16/21 History clopidogrel 75 mg tablet 75 mg PO QAM #90 tab 05/04/21 12/16/21 Rx allopurinol 300 mg tablet 300 mg PO QAM 07/28/21 12/16/21 History insulin aspart U-100 100 unit/mL 11 unit SUBCUT .BID UD 07/28/21 12/16/21 History (3 mL) subcutaneous pen (Novolog Flexpen U-100 Insulin aspart) metoprolol tartrate 50 mg tablet 25 mg PO DAILY #180 tab 08/24/21 12/16/21 Rx bumetanide 2 mg tablet 2 mg PO DAILY #90 tab 09/07/21 12/16/21 Rx apixaban 2.5 mg tablet (Eliquis) 2.5 mg PO BID 30 Days #90 tab 10/05/21 12/16/21 Rx acetaminophen 500 mg tablet 1,000 mg PO AMPM MDD 3 GRAMS/24 10/21/21 12/16/21 History (Tylenol Extra Strength) HOURS insulin aspart U-100 100 unit/mL 0 unit SUBCUT QDD 10/21/21 12/16/21 History (3 mL) subcutaneous pen (Novolog Flexpen U-100 Insulin aspart) insulin glargine 100 unit/mL (3 10 unit SUBCUT QPM 10/21/21 12/16/21 History mL) subcutaneous pen (Basaglar KwikPen U-100 Insulin) magnesium oxide 400 mg PO DAILY 10/21/21 12/16/21 History acetaminophen 325 mg tablet 650 mg PO .Q4-6HRS PRN MDD 3 12/16/21 12/16/21 History (Tylenol) GRAMS/24 HOURS cephalexin 500 mg capsule 500 mg PO BID 12/16/21 12/16/21 History escitalopram oxalate 10 mg tablet 10 mg PO DAILY 12/16/21 12/16/21 History (Lexapro) ferrous gluconate 324 mg (37.5 mg 324 mg PO DAILY 12/16/21 12/16/21 History iron) tablet pantoprazole 40 mg tablet,delayed 40 mg PO BID 12/16/21 12/16/21 History release tramadol 50 mg tablet 50 mg PO Q12H PRN 12/16/21 12/16/21 History Past Med/Surg History Medical History (Updated 12/16/21 @ 21:17 by Gennaro Perea MD) Acute on chronic diastolic heart failure Acute upper gastrointestinal bleeding Acute UTI (urinary tract infection) Anemia Anemia Angina pectoris Blood per rectum CHI (closed head injury) Chronic respiratory failure with hypoxia and hypercapnia COPD with acute exacerbation Depression with anxiety Diabetes Diabetic foot ulcer associated with type 2 diabetes mellitus 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) [place] (dyspnea on exertion) Dyslipidemia Elevated troponin Elevated troponin Elevated troponin I level Fall Fracture of head of left humerus GI bleed Hematuria HTN (hypertension) Hypercarbia Hypertrophic cardiomyopathy apical variant Hypothyroidism Knee arthropathy Lung cancer Myocardial infarction X4 Paroxysmal A-fib Peripheral neuropathy Proteinuria Thrombocytopenia Thrombocytopenia Vitamin D deficiency Surgical History History of cardioversion MULTIPLE History of cataract surgery History of lung surgery PARTIAL LEFT LOBECTOMY (2014) Hx of brain surgery 2017 S/P FALL/INJURY; SUBSEQUENT BLOOD CLOT EVACUATION Knee joint replacement status S/P cardiac catheterization 7 TOTAL; CARDIAC STENTS X6 S/P hysterectomy S/P tonsillectomy Family History Father , Patient age 82 of stomach cancer. Cancer Heart disease Diabetes Mother , age 93 of heart issues Stroke Hypertension Heart disease Grandmother (Maternal) Coronary heart disease Stroke Family/Other Multiple sclerosis Brother Coronary heart disease Grandfather (Maternal) Heart disease Grandfather (Paternal) Diabetes Aunt Muscular dystrophy Other Gallbladder disease Kidney stones Social History Smoking Status: Never smoker Second Hand Exposure: No; Hx Alcohol Use: No Hx Substance Use: No Preferred Language: Lao Communication Ability: Effective Recovery Assistant Required: No Beliefs That Will Affect Care: None marital status: Current Living Situation: Longterm 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al status: retired 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 NAD. Cooperative. HEENT: Atraumatic, normocephalic. Pulm: Lungs mildly diminished in bases, -wheezes, -rales, -rhonchi. Symmetrical chest rise. No increase work of breathing. No respiratory distress. Cardiac: RRR, -mrg. Radial pulses intact and symmetrical. No JVD, negative hepatojugular reflux, 2+ pitting edema to shins bilaterally. Abdominal: soft, non-tender, non-distended, BS x 4 Skin: warm, dry, no rash Results & Data Results & Data ([facility]) Vital Signs (Past 12 Hours) Vital Signs Temp Pulse Resp BP Pulse Ox 12/16/21 18:59 98 12/16/21 18:30 70 18 143/71 H 97 12/16/21 18:00 70 22 139/65 100 12/16/21 17:34 36.6 C 12/16/21 17:30 70 20 145/74 H 12/16/21 17:17 70 15 100 12/16/21 16:49 100 12/16/21 16:48 74 28 H 147/70 H 87 L Code Status & VTE Plan Code Status DNR/DNI - discussed with patient Supervising Physician Co-Signing Physician Notes Attending addendum: I have physically seen this patient, have supervised the medical residents activities, and agree with the H&P unless as otherwise noted. Assessment and Plan: Acute on chronic respiratory failure with hypoxia/mild CHF exacerbation/COVID-19 positivity- Admit to monitored bed CHF/elevated troponin/hypertension/A. fib status post PPM and ablation/CAD- The patient will be admitted to telemetry for serial cardiac enzymes, serial EKG's, cardiac rhythm monitoring and a 2-D echocardiogram with Dopplers. Continue Eliquis, Lopressor, clopidogrel Status post furosemide 40 mg IV from the ED, follow response to treatment any further need for furosemide Troponin 69.0, follow serially COVID-19 positivity- Unclear contribution to her symptoms at this point Dexamethasone 6 mg IV daily Not a candidate for remdesivir due to GFR less than 30 Duonebs every 4 hours while awake and every 2 hours when necessary. Guaifenesin extended release 12 mg p.o. twice daily Received 1 dose of cefepime from the ED Diabetes mellitus- Place on Accu-Cheks before meals and at bedtime with NovoLog coverage per scale Continue Basaglar 10 units subcu in the evening Remaining orders and notations as noted Resident Activity Tracking Resident Involvement: Resident Care Provided Care Provided: Adult Hospital Medicine (1) Diabetes Diabetes mellitus complication status: without complication Diabetes mellitus terminal operator insulin use: with terminal operator use Diabetes mellitus type: type 2 Qualified Code(s): E11.9 - Type 2 diabetes mellitus without complications; Z79.4 - skilled nursing (current) use of insulin (2) Dementia Dementia behavioral disturbance: without behavioral disturbance Dementia type: unspecified type Qualified Code(s): F03.90 - Unspecified dementia without behavioral disturbance (3) Hypothyroidism Hypothyroidism type: unspecified Qualified Code(s): E03.9 - Hypothyroidism, unspecified
[2021-12-16] MEDS: dexAMETHasone 6 MG in SYRINGE 0 ML IV SCH (22:00)
[2021-12-16] MEDS: APIXABAN 2.5 MG TAB PO SCH (22:00)
[2021-12-16] MEDS: INSULIN GLARGINE SOLOSTAR 100 UNITS/ML 3 ML PEN SC SCH (22:09)
[2021-12-17] MEDS ORDERED: NITROGLYCERIN SL 0.4 MG/TAB TAB SL PRN (00:25)
[2021-12-17] MEDS ORDERED: CARBOHYDRATES FOR HYPOGLYCEMIA PO PRN (00:25)
[2021-12-17] MEDS ORDERED: ACETAMINOPHEN 325 MG TAB PO PRN (00:25)
[2021-12-17] MEDS ORDERED: GLUCAGON FOR INJ 1 MG VIAL SQ PRN (00:25)
[2021-12-17] MEDS ORDERED: ALBUT/IPRATROP 3MG/0.5MG NEB 3 ML VIAL NEB PRN (00:25)
[2021-12-17] MEDS ORDERED: GLUCOSE 40% GEL 15 GM TUBE PO PRN (00:25)
[2021-12-17] MEDS ORDERED: GLUCOSE 10 TABS/TUBE PO PRN (00:25)
[2021-12-17] MEDS ORDERED: traMADol HCL 50 MG TABLET PO PRN (00:25)
[2021-12-17] MEDS ORDERED: DEXTROSE 50% 50 ML SYRINGE IV PRN (00:25)
[2021-12-17] MEDS: INSULIN ASPART PER UNIT SC SCH ×4 (08:51→21:28)
[2021-12-17] MEDS ORDERED: MAGNESIUM OXIDE 400 MG TAB PO SCH (09:00)
[2021-12-17 09:10] LABS: BUN Creatinine Ratio 24.1 (10-20); Calcium 8.9 mg/dl (8.5-10.1); Creatinine Clr Calc Pharmacy 14.5 ml/min; Est GFR (African American) 15.4 ml/min; Est GFR (Non-African American) 13.3 ml/min; Magnesium 2.6 mg/dl (1.7-2.4); Potassium 4.5 mmol/L (3.5-5.1)
[2021-12-17] MEDS: PREGABALIN 25 MG CAP PO SCH ×2 (09:17→20:39)
[2021-12-17] MEDS: FERROUS GLUCONATE 324 MG TAB PO SCH (09:18)
[2021-12-17] MEDS: APIXABAN 2.5 MG TAB PO SCH ×2 (09:18→20:18)
[2021-12-17] MEDS: LEVOTHYROXINE SODIUM 25 MCG TABLET PO SCH (09:18)
[2021-12-17] MEDS: INSULIN GLARGINE SOLOSTAR 100 UNITS/ML 3 ML PEN SC SCH (09:18)
[2021-12-17] MEDS: CLOPIDOGREL BISULFATE 75 MG TAB PO SCH (09:18)
[2021-12-17] MEDS: guaiFENesin 600 MG TABCR PO SCH ×2 (09:18→20:16)
[2021-12-17] MEDS: FAMOTIDINE 20 MG TAB PO SCH ×2 (09:18→20:22)
[2021-12-17] MEDS: PANTOprazole 40 MG TAB PO SCH ×2 (09:18→20:23)
[2021-12-17] MEDS: ESCITALOPRAM OXALATE 10 MG TAB PO SCH (09:18)
[2021-12-17] MEDS: METOPROLOL TARTRATE 25 MG TAB PO SCH (09:18)
[2021-12-17 09:27] LABS: Hematocrit (blood only) 33.6 % (37-47); Hemoglobin 9.7 g/dL (12.0-16.0); Mean Corpuscular Hemoglobin 30.6 pg (25-34); Mean Corpuscular Hgb Conc 28.9 g/dL (32-36); Mean Platelet Volume 12.2 fL (7.4-10.4); Nucleated RBC # (auto) 0.04 K/uL (0-0); Nucleated RBC % (auto) 1.1 %; Platelet Count 118 K/uL (130-400); RDW Coefficient of Variation 19.6 % (11.5-14.5); RDW Standard Deviation 75.8 fL (36.4-46.3); Red Blood Count 3.17 M/uL (4.2-5.4); White Blood Count 3.18 K/uL (4.8-10.8)
[2021-12-17 09:28] LABS: Anisocytosis Present; Basophils # (auto) 0.01 K/uL (0-0.2); Basophils % (auto) 0.3 %; Immature Granulocytes # (auto) 0.12 K/uL (0.00-0.02); Immature Granulocytes % (auto) 3.8 %; Lymphocytes # (auto) 0.39 K/uL (1.2-3.4); Lymphocytes % (auto) 12.3 %; Macrocytosis Present; Monocytes # (auto) 0.07 K/uL (0.11-0.59); Monocytes % (auto) 2.2 %; Neutrophils # (auto) 2.59 K/uL (1.4-6.5); Neutrophils % (auto) 81.4 %
[2021-12-17] MEDS ORDERED: BUMETANIDE 2 MG in SYRINGE 0 ML IV ONE (16:45)
--- NOTE | 2021-12-17 18:43 | Hospitalist Progress Note ---
Date of Service December 17, 2021 Assessment & Plan (1) Pneumonia due to COVID-19 virus: Plan: Cont supportive care. Day #2 of dexamethasone 6mg IV (or PO) daily. Not a candidate for Remdesivir due to advanced CKD. Does not meet criteria for immune-based therapy at this time. Repeat CXR in am. Defer on IV abx for now for any superimposed bacterial process. (2) Acute and chronic respiratory failure with hypoxia: Plan: acute component 2nd to #1 and #4 dexamethasone for #1 IV bumex for #4 cont NC and supportive care (3) Acute kidney injury superimposed on CKD: Plan: KENDELL likely 2nd to COVID infection, decompensated CHF, etc. BMP daily Supportive care + diuresis (4) Acute on chronic systolic CHF (congestive heart failure): Plan: IV bumex 2mg x [address] PureWick catheter to capture UOP daily weights cont metoprolol (5) Acute metabolic encephalopathy: Plan: 2nd to #1 in setting of underlying dementia supportive care in light of fall (see below) her room will be changed so that she can be watched more carefully (6) Elevated troponin: Plan: myocardial demand ischemia in setting of COVID infection, decompensated CHF, KENDELL/CKD, etc No evidence of ACS (7) Diabetes: Plan: uncontrolled 2nd to #1 increase lantus to 10 units BID tighten Novolog CF + carb coverage (8) Chronic kidney disease, stage 4 (severe): Plan: baseline CrCl about 20 now with superimposed KENDELL daily BMP (9) Pancytopenia: Plan: Pt with chronic anemia, but new onset leukopenia with thrombocytopenia likely from viral suppression from COVID infection daily CBC for stability (10) Paroxysmal A-fib: Plan: on eliquis 2.5mg BID cont metoprolol 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 (11) Dementia: Plan: at baseline (12) Hypothyroidism: Plan: TSH 07/2021 wnl cont synthroid 25mcg daily (13) 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 (14) Dyslipidemia: (15) Fall: Plan: late in the evening (~1830) I received a call from nursing that as they were entering her room she had stood up from the bed, fell and proceeded to hit her head she was placed back in bed the bed alarm had been on staff reported mild swelling to the head and that she was c/o knee pain sent for STAT head CT and cervical spine CT - both neg for fracture; CT head neg for ICH I spoke with the night resident physician and asked him to do a bedside assessment of her to ensure no other injury hold eliquis due to the fall (16) DVT prophylaxis: Plan: had been eliquis, but hold in light of #15 Plan: updated pt's extensively by phone this evening Admission and Anticipated Discharge Date Admission Date: December 16, 2021 Subjective per staff the patient ate 50-75% of her breakfast & lunch was able to ambulate to bathroom early in the day and was somewhat oriented during rounds in the mid-afternoon she was very confused she did not realize she was in the hospital she was moaning when asked if she was in pain she would simply stare at me and not answer she then reported she needed to urinate; I offered to walk her to the bathroom myself - she refused to get out of bed she would not ask other questions unable to obtain ROS due to confusion Review of Systems Review of Systems: Unobtainable due to cognitive status Physical Exam Physical Exam: gen - confused, moaning, obese, NAD neck - ?mild JVD mouth - MMM heart - RRR, s1 s2 lungs - b/l rales L>R; no wheeze; no increased work of breathing abd - distended (body wall edema? ascites?); NT; no HSM; BS+ ext - 1-2+ edema b/l, pulses 2+ b/l psych - oriented to person only Results & Data Results & Data ([facility]) Vital Signs (Past 12 Hours) Vital Signs Temp Pulse Pulse Resp BP Pulse Ox 12/17/21 16:50 36.5 C 71 18 137/55 L 98 12/17/21 10:57 36.9 C 77 20 164/81 H 97 12/17/21 07:39 36.8 C 71 18 147/71 H 100 Laboratory Results Laboratory Results - last 24 hr 12/17/21 12/17/21 12/17/21 07:30 07:30 07:30 WBC 3.18 L RBC 3.17 L Hgb 9.7 L Hct 33.6 L MCV 106.0 H MCH 30.6 MCHC 28.9 L RDW Std Deviation 75.8 H RDW Coeff of Nhi 19.6 H Plt Count 118 L MPV 12.2 H Immature Gran % (Auto) 3.8 Neut % (Auto) 81.4 Lymph % (Auto) 12.3 [place] % (Auto) 2.2 Eos % (Auto) 0.0 Baso % (Auto) 0.3 Neut # (Auto) 2.59 Lymph # (Auto) 0.39 L [place] # (Auto) 0.07 L Eos # (Auto) 0.00 Baso # (Auto) 0.01 Immature Gran # (Auto) 0.12 H Absolute Nucleated RBC 0.04 H Nucleated RBC % (auto) 1.1 Anisocytosis Present Macrocytosis Present Sodium 143 Potassium 4.5 Chloride 100 Carbon Dioxide 31 Anion Gap 12 H BUN 76 H Creatinine 3.15 H Est Cr Clr Drug Dosing 14.5 Est GFR ( Amer) 15.4 Est GFR (Non-Af Amer) 13.3 BUN/Creatinine Ratio 24.1 H Glucose 207 H POC Glucose Calcium 8.9 Magnesium 2.6 H Troponin I High Sens 59.0 H* D Vitamin B12 Folate > 22.30 12/17/21 12/17/21 12/17/21 07:30 07:36 11:19 WBC RBC Hgb Hct MCV MCH MCHC RDW Std Deviation RDW Coeff of Nhi Plt Count MPV Immature Gran % (Auto) Neut % (Auto) Lymph % (Auto) [place] % (Auto) Eos % (Auto) Baso % (Auto) Neut # (Auto) Lymph # (Auto) [place] # (Auto) Eos # (Auto) Baso # (Auto) Immature Gran # (Auto) Absolute Nucleated RBC Nucleated RBC % (auto) Anisocytosis Macrocytosis Sodium Potassium Chloride Carbon Dioxide Anion Gap BUN Creatinine Est Cr Clr Drug Dosing Est GFR ( Amer) Est GFR (Non-Af Amer) BUN/Creatinine Ratio Glucose POC Glucose 229 H 259 H Calcium Magnesium Troponin I High Sens Vitamin B12 1145 H Folate 12/17/21 16:25 WBC RBC Hgb Hct MCV MCH MCHC RDW Std Deviation RDW Coeff of Nhi Plt Count MPV Immature Gran % (Auto) Neut % (Auto) Lymph % (Auto) [place] % (Auto) Eos % (Auto) Baso % (Auto) Neut # (Auto) Lymph # (Auto) [place] # (Auto) Eos # (Auto) Baso # (Auto) Immature Gran # (Auto) Absolute Nucleated RBC Nucleated RBC % (auto) Anisocytosis Macrocytosis Sodium Potassium Chloride Carbon Dioxide Anion Gap BUN Creatinine Est Cr Clr Drug Dosing Est GFR ( Amer) Est GFR (Non-Af Amer) BUN/Creatinine Ratio Glucose POC Glucose 206 H Calcium Magnesium Troponin I High Sens Vitamin B12 Folate PG Care Time/CCT Total # of Minutes Spent Total Time Spent with Patient: Total time spent is greater than 50% in coordination of care (as documented) at patient's floor/unit and/or counseling patient: Coding Level of Care Code 91102 Subseq Hosp Care Lvl 3 Diagnoses Pneumonia due to COVID-19 virus U07.1; J12.82 Acute and chronic respiratory failure with hypoxia J96.21 Acute kidney injury superimposed on CKD N17.9; N18.9 Acute on chronic systolic CHF (congestive heart failure) I50.23 Acute metabolic encephalopathy G93.41 Elevated troponin R79.89 Diabetes E11.9 Chronic kidney disease, stage 4 (severe) N18.4 Pancytopenia D61.818 Paroxysmal A-fib I48.0 Dementia F03.90 Dementia behavioral disturbance: without behavioral disturbance Dementia type: unspecified type Hypothyroidism E03.9 Hypothyroidism type: unspecified Pacemaker Z95.0 Dyslipidemia E78.5 Fall W19.XXXA DVT prophylaxis Z29.9 (1) Dementia Dementia behavioral disturbance: without behavioral disturbance Dementia type: unspecified type Qualified Code(s): F03.90 - Unspecified dementia without behavioral disturbance (2) Hypothyroidism Hypothyroidism type: unspecified Qualified Code(s): E03.9 - Hypothyroidism, unspecified
--- NOTE | 2021-12-17 19:34 | Billing Data ---
Date of Service December 17, 2021 Coding Level of Care Code 66703 Initial Inpt Care Lvl 3
--- NOTE | 2021-12-17 19:44 | CT Scan Report ---
HEAD CT NONCONTRAST CT DOSE: HISTORY: s/p fall, hit head TECHNIQUE: Multiaxial CT images of the head were performed without the use of intravenous contrast. A utomated exposure control was utilized for this study. A dose lowering technique was utilized adheri ng to the principles of ALARA. Comparison: Head CT 07/28/2021. Findings: The paranasal sinuses and mastoid air cells are clear. The calvarium and skull base are int act. There is no mass, hematoma, midline shift, acute infarct. White matter hypodensity is nonspecifi c but suggestive of microvascular ischemic change. The ventricles and sulci demonstrate mild age-rela anjana involutional changes. Prior right craniotomy. Mild left frontal scalp swelling. Impression: No acute intracranial abnormality. Mild left frontal scalp swelling. ACT 112: Negative or not required by law. Electronically signed by: Jeremy Moran M.D. 12/17/2021 7:42 PM
--- NOTE | 2021-12-17 19:46 | CT Scan Report ---
CERVICAL SPINE CT CT DOSE: 1281.32 mGy.cm HISTORY: fall, eval c-spine fracture TECHNIQUE: Multiaxial CT images of the cervical spine were performed and reformatted in the sagittal and coronal plane without the use of contrast. A dose lowering technique was utilized adhering to th e principles of ALARA. COMPARISON: None. FINDINGS: No fractures. No subluxation. Prevertebral soft tissues and the C1-C2 interval are intact. No pneumothorax. IMPRESSION: No fractures within the cervical spine. ACT 112: Negative or not required by law. Electronically signed by: Jeremy Moran M.D. 12/17/2021 7:44 PM
[2021-12-17] MEDS: dexAMETHasone 6 MG in SYRINGE 0 ML IV SCH (20:44)
[2021-12-17] MEDS ORDERED: INSULIN GLARGINE SOLOSTAR 100 UNITS/ML 3 ML PEN SC SCH (21:00)
--- NOTE | 2021-12-18 05:58 | Electrocardiogram Report ---
Test Reason : Blood Pressure : / mmHG Vent. Rate : 075 BPM Atrial Rate : 074 BPM P-R Int : 188 ms QRS Dur : 180 ms QT Int : 490 ms P-R-T Axes : 000 -67 123 degrees QTc Int : 547 ms AV dual-paced rhythm Abnormal ECG When compared with ECG of 16-DEC-2021 17:07, No significant change was found Confirmed by Balbir Ibanez ([id number]) on 12/18/2021 5:58:33 AM Referred By: REFERRED SELF Confirmed By:Balbir Ibanez
[2021-12-18] MEDS: LEVOTHYROXINE SODIUM 25 MCG TABLET PO SCH (06:06)
[2021-12-18 07:06] LABS: Hemoglobin 9.7 g/dL (12.0-16.0); Mean Corpuscular Hemoglobin 31.8 pg (25-34); Mean Corpuscular Hgb Conc 30.3 g/dL (32-36); Mean Corpuscular Volume 104.9 fL (80-100); Mean Platelet Volume 13.2 fL (7.4-10.4); Nucleated RBC # (auto) 0.03 K/uL (0-0); Nucleated RBC % (auto) 0.5 %; Platelet Count 118 K/uL (130-400); RDW Coefficient of Variation 18.9 % (11.5-14.5); RDW Standard Deviation 72.9 fL (36.4-46.3); Red Blood Count 3.05 M/uL (4.2-5.4); White Blood Count 5.16 K/uL (4.8-10.8)
[2021-12-18 07:17] LABS: BUN Creatinine Ratio 26.2 (10-20); Creatinine Clr Calc Pharmacy 15.2 ml/min; Est GFR (African American) 16.3 ml/min; Potassium 4.1 mmol/L (3.5-5.1)
[2021-12-18] MEDS: INSULIN ASPART PER UNIT SC SCH ×4 (08:15→21:40)
[2021-12-18] MEDS ORDERED: BUMETANIDE 3 MG in SYRINGE 0 ML IV ONE (08:30)
--- NOTE | 2021-12-18 08:39 | XRay Report ---
XR chest 1V portable CLINICAL HISTORY: COVID19 pneumonia vs CHF TECHNIQUE: Single frontal radiograph of the chest was obtained. Comparison: Comparison is made to chest radiograph 12/16/2021 FINDINGS: A port catheter is seen. Cardiomegaly is noted. Calcified aortic knob is noted. Prominence and cephal ization of the vasculature is seen. No evidence of pleural effusion or pneumothorax. IMPRESSION: Cardiomegaly with mild pulmonary edema. ACT 112: Negative or not required by law. Electronically signed by: Campos Mathur M.D. 12/18/2021 8:38 AM
[2021-12-18] MEDS: guaiFENesin 600 MG TABCR PO SCH ×2 (09:07→21:19)
[2021-12-18] MEDS: CLOPIDOGREL BISULFATE 75 MG TAB PO SCH (09:07)
[2021-12-18] MEDS: METOPROLOL TARTRATE 25 MG TAB PO SCH (09:07)
[2021-12-18] MEDS: FERROUS GLUCONATE 324 MG TAB PO SCH (09:08)
[2021-12-18] MEDS: PANTOprazole 40 MG TAB PO SCH ×2 (09:08→21:19)
[2021-12-18] MEDS: FAMOTIDINE 20 MG TAB PO SCH ×2 (09:08→21:19)
[2021-12-18] MEDS: ESCITALOPRAM OXALATE 10 MG TAB PO SCH (09:08)
[2021-12-18] MEDS: INSULIN GLARGINE SOLOSTAR 100 UNITS/ML 3 ML PEN SC SCH ×2 (09:28→21:41)
--- NOTE | 2021-12-18 19:41 | Hospitalist Progress Note ---
Date of Service December 18, 2021 Assessment & Plan (1) Pneumonia due to COVID-19 virus: Plan: Stable. Cont supportive care. Remains stable with no increase in O2 requirement. Day #3 of dexamethasone 6mg IV today. Not a candidate for Remdesivir due to advanced CKD. Does not meet criteria for immune-based therapy at this time. Repeat CXR noted - will give additional diuretic IV today. (2) Acute and chronic respiratory failure with hypoxia: Plan: acute component 2nd to #1 and #4 dexamethasone for #1 IV bumex for #4 cont NC and supportive care (3) Acute kidney injury superimposed on CKD: Plan: KENDELL likely 2nd to COVID infection, decompensated CHF, etc. Modestly improved today BMP daily Supportive care + diuresis (4) Acute on chronic systolic CHF (congestive heart failure): Plan: Give IV bumex again today but increase dose to 3mg x 1 daily weights cont metoprolol BMP am (5) Acute metabolic encephalopathy: Plan: 2nd to #1 in setting of underlying dementia supportive care CT head last evening without ICH or acute CVA (6) Elevated troponin: Plan: myocardial demand ischemia in setting of COVID infection, decompensated CHF, KENDELL/CKD, etc No evidence of ACS (7) Diabetes: Plan: uncontrolled 2nd to #1 increase lantus to 15 units BID tighten Novolog CF + carb coverage once again (8) Chronic kidney disease, stage 4 (severe): Plan: baseline CrCl about 20 now with superimposed KENDELL but KENDELL improving daily BMP (9) Pancytopenia: Plan: Pt with chronic anemia, but new onset leukopenia with thrombocytopenia likely from viral suppression from COVID infection - both improved modestly today daily CBC for stability (10) Paroxysmal A-fib: Plan: on eliquis 2.5mg BID but holding due to fall last evening watch her overnight 1 more night if stable from neuropsych standpoint resume AM of 12/19 cont metoprolol 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 (11) Dementia: Plan: at baseline (12) Hypothyroidism: Plan: TSH 07/2021 wnl cont synthroid 25mcg daily (13) 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 (14) Dyslipidemia: (15) Fall: Plan: 12/17/21 CT head and cervical spine negative for fractures, ICH, etc no evidence of injury on exam today fortunately (16) DVT prophylaxis: Plan: had been eliquis, but hold in light of #15 at least 1 more night Plan: updated pt's extensively by phone again this evening Admission and Anticipated Discharge Date Admission Date: December 16, 2021 Subjective pt had a fall last pm while attempting to get out of bed hit her head sent for CT head/c-spine -- both negative night resident assessed her - no other injuries staff this AM report she has no musculoskeletal complaints and otherwise had ok night during the visit she was confused but was pleasant thought she was in the hospital to "get some physical therapy" didn't recall the fall reported mild headache but couldn't give details about when it started denied pain in her face, neck, arms, legs, or hips c/o cough but no dyspnea tele - paced eating fair per nursing flow sheets Review of Systems Review of Systems: cv - no orthopnea, no chest pain pulm - no dyspnea at rest GI - no abd pain Physical Exam Physical Exam: gen - pleasantly confused, NAD head - mild bruise left forehead neck - no tenderness to palpation of c-spine mouth - MMM heart - RRR, s1 s2 lungs - b/l rales L>R but mild; no wheeze; no increased work of breathing abd - softly distended, NT; no HSM; BS+ ext - 1+ edema b/l, pulses 2+ b/l psych - oriented to person and place but not time musculo - no signs of trauma to arms or legs; full ROM of b/l hips and b/l knees; no abnormalities of upper ext joints Results & Data Results & Data ([facility]) Vital Signs (Past 12 Hours) Vital Signs Temp Pulse Pulse Resp BP BP Pulse Ox 12/18/21 19:05 36.3 C L 70 16 135/76 100 12/18/21 16:48 36.6 C 75 19 116/63 97 12/18/21 15:57 76 12/18/21 15:15 94 12/18/21 12:32 36.7 C 78 19 122/66 98 12/18/21 07:58 36.5 C 78 20 144/74 H 99 Laboratory Results Laboratory Results - last 24 hr 12/18/21 12/18/21 12/18/21 06:01 06:01 12:00 WBC 5.16 RBC 3.05 L Hgb 9.7 L Hct 32.0 L MCV 104.9 H MCH 31.8 MCHC 30.3 L RDW Std Deviation 72.9 H RDW Coeff of Nhi 18.9 H Plt Count 118 L MPV 13.2 H Absolute Nucleated RBC 0.03 H Nucleated RBC % (auto) 0.5 Sodium 144 Potassium 4.1 Chloride 100 Carbon Dioxide 35 H Anion Gap 9 BUN 79 H Creatinine 3.01 H Est Cr Clr Drug Dosing 15.2 Est GFR ( Amer) 16.3 Est GFR (Non-Af Amer) 14.0 BUN/Creatinine Ratio 26.2 H Glucose 109 H POC Glucose 167 H Calcium 9.0 12/18/21 16:45 WBC RBC Hgb Hct MCV MCH MCHC RDW Std Deviation RDW Coeff of Nhi Plt Count MPV Absolute Nucleated RBC Nucleated RBC % (auto) Sodium Potassium Chloride Carbon Dioxide Anion Gap BUN Creatinine Est Cr Clr Drug Dosing Est GFR ( Amer) Est GFR (Non-Af Amer) BUN/Creatinine Ratio Glucose POC Glucose 138 H Calcium Diagnostic Findings Chest X-Ray 12/18/21 07:30 XR chest 1V portable CLINICAL HISTORY: COVID19 pneumonia vs CHF TECHNIQUE: Single frontal radiograph of the chest was obtained. Comparison: Comparison is made to chest radiograph 12/16/2021 FINDINGS: A port catheter is seen. Cardiomegaly is noted. Calcified aortic knob is noted. Prominence and cephalization of the vasculature is seen. No evidence of pleural effusion or pneumothorax. IMPRESSION: Cardiomegaly with mild pulmonary edema. ACT 112: Negative or not required by law. Electronically signed by: Campos Mathur M.D. 12/18/2021 8:38 AM PG Care Time/CCT Total # of Minutes Spent Total Time Spent with Patient: Total time spent is greater than 50% in coordination of care (as documented) at patient's floor/unit and/or counseling patient: Coding Level of Care Code 71622 Subseq Hosp Care Lvl 3 Diagnoses Pneumonia due to COVID-19 virus U07.1; J12.82 Acute and chronic respiratory failure with hypoxia J96.21 Acute kidney injury superimposed on CKD N17.9; N18.9 Acute on chronic systolic CHF (congestive heart failure) I50.23 Acute metabolic encephalopathy G93.41 Elevated troponin R79.89 Diabetes E11.9 Chronic kidney disease, stage 4 (severe) N18.4 Pancytopenia D61.818 Paroxysmal A-fib I48.0 Dementia F03.90 Dementia behavioral disturbance: without behavioral disturbance Dementia type: unspecified type Hypothyroidism E03.9 Hypothyroidism type: unspecified Pacemaker Z95.0 Dyslipidemia E78.5 Fall W19.XXXA DVT prophylaxis Z29.9 (1) Dementia Dementia behavioral disturbance: without behavioral disturbance Dementia type: unspecified type Qualified Code(s): F03.90 - Unspecified dementia without behavioral disturbance (2) Hypothyroidism Hypothyroidism type: unspecified Qualified Code(s): E03.9 - Hypothyroidism, unspecified
[2021-12-18 20:55] LABS: Base Excess VBG 9.8 mEq/L; Oxygen Saturation VBG 96.9 %; pH VBG 7.47 (7.36-7.41)
[2021-12-18] MEDS: dexAMETHasone 6 MG in SYRINGE 0 ML IV SCH (21:18)
[2021-12-19] MEDS: LEVOTHYROXINE SODIUM 25 MCG TABLET PO SCH (05:49)
[2021-12-19 07:23] LABS: Calcium 8.4 mg/dl (8.5-10.1); Creatinine Clr Calc Pharmacy 15.2 ml/min; Est GFR (African American) 17.1 ml/min; Est GFR (Non-African American) 14.7 ml/min
[2021-12-19] MEDS: INSULIN ASPART PER UNIT SC SCH ×4 (07:48→20:02)
[2021-12-19] MEDS: guaiFENesin 600 MG TABCR PO SCH ×2 (08:18→20:00)
[2021-12-19] MEDS: PANTOprazole 40 MG TAB PO SCH ×2 (08:18→20:00)
[2021-12-19] MEDS: FAMOTIDINE 20 MG TAB PO SCH ×2 (08:18→20:01)
[2021-12-19] MEDS: CLOPIDOGREL BISULFATE 75 MG TAB PO SCH (08:18)
[2021-12-19] MEDS: FERROUS GLUCONATE 324 MG TAB PO SCH (08:18)
[2021-12-19] MEDS: ESCITALOPRAM OXALATE 10 MG TAB PO SCH (08:19)
[2021-12-19] MEDS: METOPROLOL TARTRATE 25 MG TAB PO SCH (08:20)
[2021-12-19] MEDS: INSULIN GLARGINE SOLOSTAR 100 UNITS/ML 3 ML PEN SC SCH ×2 (08:59→20:11)
[2021-12-19] MEDS ORDERED: BUMETANIDE 2 MG in SYRINGE 0 ML IV STA (09:04)
[2021-12-19] MEDS ORDERED: BUMETANIDE 2 MG in SYRINGE 0 ML IV ONE (19:00)
[2021-12-19] MEDS: ALBUTEROL HFA 8 GM INHALER INH SCH (19:27)
[2021-12-19] MEDS: IPRATROPIUM BROMIDE HFA INHALER INH SCH (19:27)
[2021-12-19] MEDS: APIXABAN 2.5 MG TAB PO SCH (19:59)
[2021-12-19] MEDS: dexAMETHasone 6 MG in SYRINGE 0 ML IV SCH (20:00)
--- NOTE | 2021-12-19 20:41 | Hospitalist Progress Note ---
Date of Service December 19, 2021 Assessment & Plan (1) Pneumonia due to COVID-19 virus: Plan: Stable. NO large changes in status. Cont supportive care. Remains stable with no increase in O2 requirement. Day #4 of dexamethasone 6mg IV today. Not a candidate for Remdesivir due to advanced CKD. Does not meet criteria for immune-based therapy at this time. (2) Acute and chronic respiratory failure with hypoxia: Plan: acute component 2nd to #1 and #4 dexamethasone for #1 IV bumex for #4 cont NC and supportive care (3) Acute kidney injury superimposed on CKD: Plan: KENDELL likely 2nd to COVID infection, decompensated CHF, etc. Continues to improve BMP daily Supportive care + diuresis (4) Acute on chronic systolic CHF (congestive heart failure): Plan: give 2 doses of IV bumex today - AM, and at 5pm BMP in am (5) Acute metabolic encephalopathy: Plan: 2nd to #1 in setting of underlying dementia supportive care CT head 2 evenings ago without ICH or acute CVA (6) Elevated troponin: Plan: myocardial demand ischemia in setting of COVID infection, decompensated CHF, KENDELL/CKD, etc No evidence of ACS (7) Diabetes: Plan: previously uncontrolled 2nd to #1 but improved cont lantus BID cont Novolog CF + carb coverage (8) Chronic kidney disease, stage 4 (severe): Plan: baseline CrCl about 20 now with superimposed KENDELL but KENDELL improving daily BMP (9) Pancytopenia: Plan: Pt with chronic anemia, but new onset leukopenia with thrombocytopenia likely from viral suppression from COVID infection - latter issues improved (10) Paroxysmal A-fib: Plan: on eliquis 2.5mg BID but had been held after her fall remains stable from neuropsych standpoint resume eliquis tonight cont metoprolol 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 (11) Dementia: Plan: at baseline (12) Hypothyroidism: Plan: TSH 07/2021 wnl cont synthroid 25mcg daily (13) 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 (14) Dyslipidemia: (15) Fall: Plan: 12/17/21 CT head and cervical spine negative for fractures, ICH, etc no evidence of injury on subsequent exams (16) DVT prophylaxis: Plan: resume eliquis (17) COPD with acute exacerbation: Plan: add scheduled bronchodilators cont IV dexamethasone supportive care incentive glenys flutter valve Plan: updated pt's extensively by phone again this evening Admission and Anticipated Discharge Date Admission Date: December 16, 2021 Subjective per staff no new issues pleasantly confused she reports worsening cough and congestion with mild dyspnea tele - pacing Review of Systems Review of Systems: gen - tired, weak; eating fair cv - chest tightness but no pain pulm - cough, dyspnea GI - mild bloating Physical Exam Physical Exam: gen - pleasantly confused, NAD head - mild bruise left forehead unchanged mouth - MMM heart - RRR, s1 s2 lungs - minimal rales bases; wheezes b/l; no increased work of breathing abd - softly distended, NT; no HSM; BS+ ext - 1+ edema b/l, pulses 2+ b/l psych - oriented to person and place but not time Results & Data Results & Data ([facility]) Vital Signs (Past 12 Hours) Vital Signs Temp Pulse Pulse Pulse Resp BP BP 12/19/21 20:08 36.7 C 73 18 134/76 12/19/21 19:27 77 18 12/19/21 16:15 36.6 C 75 16 146/84 H 12/19/21 15:18 72 12/19/21 12:06 36.8 C 74 18 119/67 Pulse Ox 12/19/21 20:08 98 12/19/21 19:27 97 12/19/21 16:15 99 12/19/21 15:18 12/19/21 12:06 90 Laboratory Results Laboratory Results - last 24 hr 12/18/21 12/19/21 12/19/21 20:44 06:33 07:10 VBG pH 7.47 H VBG pCO2 49 VBG pO2 86 VBG HCO3 35 VBG O2 Saturation 96.9 VBG Base Excess 9.8 Barometric Pressure 725.6 Sodium 143 Potassium 4.0 Chloride 99 Carbon Dioxide 33 H Anion Gap 11 BUN 78 H Creatinine 2.89 H Est Cr Clr Drug Dosing 15.2 Est GFR ( Amer) 17.1 Est GFR (Non-Af Amer) 14.7 BUN/Creatinine Ratio 27.0 H Glucose 101 H POC Glucose 111 H Calcium 8.4 L 12/19/21 12/19/21 12/19/21 11:52 16:18 19:32 VBG pH VBG pCO2 VBG pO2 VBG HCO3 VBG O2 Saturation VBG Base Excess Barometric Pressure Sodium Potassium Chloride Carbon Dioxide Anion Gap BUN Creatinine Est Cr Clr Drug Dosing Est GFR ( Amer) Est GFR (Non-Af Amer) BUN/Creatinine Ratio Glucose POC Glucose 147 H 92 74 Calcium PG Care Time/CCT Total # of Minutes Spent Total Time Spent with Patient: Total time spent is greater than 50% in coordination of care (as documented) at patient's floor/unit and/or counseling patient: Coding Level of Care Code 79981 Subseq Hosp Care Lvl 2 Diagnoses Pneumonia due to COVID-19 virus U07.1; J12.82 Acute and chronic respiratory failure with hypoxia J96.21 Acute kidney injury superimposed on CKD N17.9; N18.9 Acute on chronic systolic CHF (congestive heart failure) I50.23 Acute metabolic encephalopathy G93.41 Elevated troponin R79.89 Diabetes E11.9 Chronic kidney disease, stage 4 (severe) N18.4 Pancytopenia D61.818 Paroxysmal A-fib I48.0 Dementia F03.90 Dementia behavioral disturbance: without behavioral disturbance Dementia type: unspecified type Hypothyroidism E03.9 Hypothyroidism type: unspecified Pacemaker Z95.0 Dyslipidemia E78.5 Fall W19.XXXA DVT prophylaxis Z29.9 COPD with acute exacerbation J44.1 (1) Dementia Dementia behavioral disturbance: without behavioral disturbance Dementia type: unspecified type Qualified Code(s): F03.90 - Unspecified dementia without behavioral disturbance (2) Hypothyroidism Hypothyroidism type: unspecified Qualified Code(s): E03.9 - Hypothyroidism, unspecified
[2021-12-19] MEDS ORDERED: IPRATROPIUM BROMIDE/ALBUTEROL respimat INH INH SCH (21:00)
[2021-12-20] MEDS: LEVOTHYROXINE SODIUM 25 MCG TABLET PO SCH (05:38)
[2021-12-20] MEDS: IPRATROPIUM BROMIDE HFA INHALER INH SCH ×4 (07:39→20:25)
[2021-12-20] MEDS: ALBUTEROL HFA 8 GM INHALER INH SCH ×4 (07:39→20:24)
[2021-12-20] MEDS: INSULIN ASPART PER UNIT SC SCH ×4 (08:16→21:59)
[2021-12-20] MEDS: CLOPIDOGREL BISULFATE 75 MG TAB PO SCH (09:13)
[2021-12-20] MEDS: dexAMETHasone 6 MG in SYRINGE 0 ML IV SCH (09:13)
[2021-12-20] MEDS: FAMOTIDINE 20 MG TAB PO SCH ×2 (09:13→21:30)
[2021-12-20] MEDS: guaiFENesin 600 MG TABCR PO SCH ×2 (09:14→21:29)
[2021-12-20] MEDS: PANTOprazole 40 MG TAB PO SCH ×2 (09:14→21:30)
[2021-12-20] MEDS: FERROUS GLUCONATE 324 MG TAB PO SCH (09:15)
[2021-12-20] MEDS: METOPROLOL TARTRATE 25 MG TAB PO SCH (09:15)
[2021-12-20] MEDS: ESCITALOPRAM OXALATE 10 MG TAB PO SCH (09:15)
[2021-12-20] MEDS: APIXABAN 2.5 MG TAB PO SCH ×2 (09:15→21:29)
[2021-12-20] MEDS ORDERED: INSULIN GLARGINE SOLOSTAR 100 UNITS/ML 3 ML PEN SC SCH (09:30)
[2021-12-20 09:45] LABS: BUN Creatinine Ratio 29.7 (10-20); Calcium 8.1 mg/dl (8.5-10.1); Creatinine Clr Calc Pharmacy 16.7 ml/min; Est GFR (African American) 19.5 ml/min; Est GFR (Non-African American) 16.8 ml/min; Potassium 3.4 mmol/L (3.5-5.1)
[2021-12-20] MEDS ORDERED: POTASSIUM CHLORIDE CRTAB 20 MEQ TABCR PO STA (10:21)
[2021-12-20] MEDS ORDERED: BUMETANIDE 3 MG in SYRINGE 0 ML IV ONE (10:21)
[2021-12-20] MEDS: HEPARIN 100 UNIT/ML 5ML FLUSH FLUSH PRN (12:42)
--- NOTE | 2021-12-20 13:25 | XCELERA ---
[id number]
--- NOTE | 2021-12-20 19:58 | Hospitalist Progress Note ---
Date of Service December 20, 2021 Assessment & Plan (1) Pneumonia due to COVID-19 virus: Plan: Stable, no significant change. Cont supportive care. Day #5 of dexamethasone 6mg IV today. Was not a candidate for Remdesivir earlier in the stay due to advanced CKD. Has not meet criteria for immune-based therapy. (2) Acute and chronic respiratory failure with hypoxia: Plan: acute component 2nd to #1 and #4 - acute component improved/stable dexamethasone for #1 IV bumex for #4 (3) Acute kidney injury superimposed on CKD: Plan: KENDELL likely 2nd to COVID infection, decompensated CHF, etc. Continues to improve Cr now 2.59 BMP in am (4) Acute on chronic systolic CHF (congestive heart failure): Plan: improving IV bumex again today BMP am (5) Acute metabolic encephalopathy: Plan: 2nd to #1 in setting of underlying dementia stable most recent head CT wnl (6) Elevated troponin: Plan: myocardial demand ischemia in setting of COVID infection, decompensated CHF, KENDELL/CKD, etc No evidence of ACS (7) Diabetes: Plan: previously uncontrolled but now having lows cut lantus to 10 units BID loosen novolog SSI (8) Chronic kidney disease, stage 4 (severe): Plan: baseline CrCl about 20 baseline Creatinine about 2.4 to 2.5 superimposed KENDELL now resolved daily BMP (9) Pancytopenia: Plan: Pt with chronic anemia, but new onset leukopenia with thrombocytopenia likely from viral suppression from COVID infection - latter issues improved (10) Paroxysmal A-fib: Plan: cont eliquis 2.5mg BID cont metoprolol 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 (11) Dementia: Plan: at baseline (12) Hypothyroidism: Plan: TSH 07/2021 wnl cont synthroid 25mcg daily (13) 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 (14) Dyslipidemia: (15) Fall: Plan: 12/17/21 CT head and cervical spine negative for fractures, ICH, etc (16) DVT prophylaxis: Plan: eliquis (17) COPD with acute exacerbation: Plan: cont scheduled bronchodilators cont IV dexamethasone supportive care incentive glenys flutter valve stable Plan: updated pt's extensively by phone again this evening he, too, has COVID but is recovering comfortably at home PT, OT when able Admission and Anticipated Discharge Date Admission Date: December 16, 2021 Subjective staff report ongoing poor appetite ongoing confusion but O2 sats remaining stable on low amount of NC O2 during the visit she was sleeping but easily awoke to name being called reports ongoing cough/congestion/wheezing but she "feels better" than a few days ago Review of Systems Review of Systems: gen - no fever cv - no orthopnea pulm - cough/wheezing/chest tightness GI - no nausea or emesis Physical Exam Physical Exam: gen - pleasantly confused, NAD, coughing (very bronchial cough) head - mild bruise left forehead unchanged mouth - MMM neck - no JVD heart - RRR, s1 s2 lungs - rales bases; wheezes b/l especially when she coughs; no increased work of breathing abd - soft, NT; no HSM; BS+ ext - <1+ edema b/l, pulses 2+ b/l psych - oriented to person and place but not time Results & Data Results & Data ([facility]) Vital Signs (Past 12 Hours) Vital Signs Temp Pulse Pulse Pulse Resp BP Pulse Ox 12/20/21 16:38 36.7 C 70 18 151/72 H 94 12/20/21 15:47 70 12/20/21 15:22 70 18 94 12/20/21 12:21 36.7 C 71 20 147/71 H 97 12/20/21 11:20 70 18 96 12/20/21 09:02 36.7 C 72 19 132/67 94 12/20/21 08:00 70 Laboratory Results Laboratory Results - last 24 hr 12/19/21 12/20/21 12/20/21 19:32 08:09 09:14 Sodium 145 Potassium 3.4 L Chloride 101 Carbon Dioxide 33 H Anion Gap 11 BUN 77 H Creatinine 2.59 H D Est Cr Clr Drug Dosing 16.7 Est GFR ( Amer) 19.5 Est GFR (Non-Af Amer) 16.8 BUN/Creatinine Ratio 29.7 H Glucose 63 L POC Glucose 74 72 Calcium 8.1 L 12/20/21 12/20/21 12:09 16:09 Sodium Potassium Chloride Carbon Dioxide Anion Gap BUN Creatinine Est Cr Clr Drug Dosing Est GFR ( Amer) Est GFR (Non-Af Amer) BUN/Creatinine Ratio Glucose POC Glucose 86 146 H Calcium PG Care Time/CCT Total # of Minutes Spent Total Time Spent with Patient: Total time spent is greater than 50% in coordination of care (as documented) at patient's floor/unit and/or counseling patient: Coding Level of Care Code 09403 Subseq Hosp Care Lvl 2 Diagnoses Pneumonia due to COVID-19 virus U07.1; J12.82 Acute and chronic respiratory failure with hypoxia J96.21 Acute kidney injury superimposed on CKD N17.9; N18.9 Acute on chronic systolic CHF (congestive heart failure) I50.23 Acute metabolic encephalopathy G93.41 Elevated troponin R79.89 Diabetes E11.9 Chronic kidney disease, stage 4 (severe) N18.4 Pancytopenia D61.818 Paroxysmal A-fib I48.0 Dementia F03.90 Dementia behavioral disturbance: without behavioral disturbance Dementia type: unspecified type Hypothyroidism E03.9 Hypothyroidism type: unspecified Pacemaker Z95.0 Dyslipidemia E78.5 Fall W19.XXXA DVT prophylaxis Z29.9 COPD with acute exacerbation J44.1 (1) Dementia Dementia behavioral disturbance: without behavioral disturbance Dementia type: unspecified type Qualified Code(s): F03.90 - Unspecified dementia without behavioral disturbance (2) Hypothyroidism Hypothyroidism type: unspecified Qualified Code(s): E03.9 - Hypothyroidism, unspecified
[2021-12-20] MEDS: INSULIN GLARGINE SOLOSTAR 100 UNITS/ML 3 ML PEN SC SCH (22:00)
[2021-12-21] MEDS: LEVOTHYROXINE SODIUM 25 MCG TABLET PO SCH (05:23)
[2021-12-21 06:47] LABS: BUN Creatinine Ratio 31.6 (10-20); Calcium 8.2 mg/dl (8.5-10.1); Creatinine Clr Calc Pharmacy 15.7 ml/min; Est GFR (African American) 19.1 ml/min; Est GFR (Non-African American) 16.5 ml/min; Potassium 3.8 mmol/L (3.5-5.1)
[2021-12-21] MEDS: INSULIN ASPART PER UNIT SC SCH ×4 (07:11→20:30)
[2021-12-21] MEDS: ALBUTEROL HFA 8 GM INHALER INH SCH ×4 (07:45→19:31)
[2021-12-21] MEDS: IPRATROPIUM BROMIDE HFA INHALER INH SCH ×4 (07:45→19:31)
[2021-12-21] MEDS: INSULIN GLARGINE SOLOSTAR 100 UNITS/ML 3 ML PEN SC SCH ×2 (08:25→21:36)
[2021-12-21] MEDS: CLOPIDOGREL BISULFATE 75 MG TAB PO SCH (08:32)
[2021-12-21] MEDS: METOPROLOL TARTRATE 25 MG TAB PO SCH (08:32)
[2021-12-21] MEDS: ESCITALOPRAM OXALATE 10 MG TAB PO SCH (08:33)
[2021-12-21] MEDS: FAMOTIDINE 20 MG TAB PO SCH ×2 (08:33→20:09)
[2021-12-21] MEDS: APIXABAN 2.5 MG TAB PO SCH ×2 (08:33→20:09)
[2021-12-21] MEDS: guaiFENesin 600 MG TABCR PO SCH ×2 (08:33→20:10)
[2021-12-21] MEDS: FERROUS GLUCONATE 324 MG TAB PO SCH (08:33)
[2021-12-21] MEDS: PANTOprazole 40 MG TAB PO SCH ×2 (08:33→20:10)
[2021-12-21] MEDS: PREGABALIN 25 MG CAP PO SCH ×2 (09:05→21:04)
[2021-12-21] MEDS: dexAMETHasone 6 MG in SYRINGE 0 ML IV SCH (09:05)
[2021-12-21] MEDS ORDERED: haloperidoL 0.5 MG TAB PO STA (14:06)
[2021-12-21] MEDS ORDERED: hydroCHLOROthiazide 25 MG TAB PO STA (22:44)
--- NOTE | 2021-12-21 22:48 | Hospitalist Progress Note ---
Date of Service December 21, 2021 Assessment & Plan (1) Pneumonia due to COVID-19 virus: Plan: Stable, no significant change. Cont supportive care. Day #6 of dexamethasone 6mg IV today. Plan 10 days in total. Was not a candidate for Remdesivir earlier in the stay due to advanced CKD. Has not meet criteria for immune-based therapy. (2) Acute and chronic respiratory failure with hypoxia: Plan: acute component 2nd to #1 and #4 - acute component improving albeit slowly dexamethasone for #1 (3) Acute kidney injury superimposed on CKD: Plan: KENDELL likely 2nd to COVID infection, decompensated CHF, etc. Creatinine had improved, but now trended slightly to 2.6 and Na now 146 hold bumex today re-eval tomorrow BMP in am (4) Acute on chronic right-sided congestive heart failure: Plan: echo this admission w/ severe cor pulmonale looks compensated today or even slightly dry based on labs hold bumex today re-eval tomorrow (5) Acute metabolic encephalopathy: Plan: 2nd to #1 in setting of underlying dementia low-dose haldol needed today x 1 but otherwise stable most recent head CT wnl (6) Elevated troponin: Plan: myocardial demand ischemia in setting of COVID infection, decompensated CHF, KENDELL/CKD, etc No evidence of ACS (7) Diabetes: Plan: controlled w/o lows today cont lantus 10 units BID cont novolog SSI (8) Chronic kidney disease, stage 4 (severe): Plan: baseline CrCl about 20 baseline Creatinine about 2.4 to 2.5 superimposed KENDELL resolved daily BMP no diuretics today (9) Pancytopenia: Plan: Pt with chronic anemia recent leukopenia with thrombocytopenia likely from viral suppression from COVID infection now resolved (10) Paroxysmal A-fib: Plan: cont eliquis 2.5mg BID cont metoprolol 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 (11) Dementia: (12) Hypothyroidism: Plan: TSH 07/2021 wnl cont synthroid 25mcg daily (13) 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 (14) Dyslipidemia: (15) Fall: Plan: 12/17/21 while in COVID isolation [address] head and cervical spine negative for fractures, ICH, etc bruise forehead only fortunately (16) DVT prophylaxis: Plan: eliquis (17) COPD with acute exacerbation: Plan: cont scheduled bronchodilators cont IV dexamethasone supportive care incentive glenys flutter valve stable Plan: updated pt's extensively by phone yesterday evening PT, OT when able Admission and Anticipated Discharge Date Admission Date: December 16, 2021 Subjective patient was a bit agitated and anxious this afternoon haldol 0.5mg po x 1 given tolerated this I saw her several hours after haldol was given - resting comfortably, pleasantly confused c/o cough but no new complaints eating poorly - dinner tray was present and she ate 20% or less she c/o feeling cold Review of Systems Review of Systems: gen - no fevers; cold & tired pulm - cough, no sputum GI - no pain CV - no chest pain Physical Exam Physical Exam: gen - pleasantly confused, NAD, coughing like usual - no worse than prior head - mild bruise left forehead unchanged mouth - MMM neck - no JVD heart - RRR, s1 s2 lungs - rales bases (scant); wheezes b/l; no increased work of breathing abd - soft, NT; no HSM; BS+ ext - trace edema b/l, pulses 2+ b/l psych - oriented to person and place Results & Data Results & Data ([facility]) Vital Signs (Past 12 Hours) Vital Signs Temp Pulse Resp BP Pulse Ox 12/21/21 19:32 75 98 12/21/21 19:00 36.8 C 71 18 149/73 H 98 12/21/21 16:12 76 162/80 H 98 12/21/21 15:16 74 18 98 12/21/21 11:36 36.7 C 71 22 154/72 H 98 12/21/21 11:00 70 18 97 Laboratory Results Laboratory Results - last 24 hr 12/21/21 12/21/21 12/21/21 05:18 11:55 16:11 Sodium 146 H Potassium 3.8 Chloride 100 Carbon Dioxide 36 H Anion Gap 10 BUN 83 H Creatinine 2.63 H Est Cr Clr Drug Dosing 15.7 Est GFR ( Amer) 19.1 Est GFR (Non-Af Amer) 16.5 BUN/Creatinine Ratio 31.6 H Glucose 125 H POC Glucose 139 H 160 H Calcium 8.2 L 12/21/21 20:23 Sodium Potassium Chloride Carbon Dioxide Anion Gap BUN Creatinine Est Cr Clr Drug Dosing Est GFR ( Amer) Est GFR (Non-Af Amer) BUN/Creatinine Ratio Glucose POC Glucose 148 H Calcium PG Care Time/CCT Total # of Minutes Spent Total Time Spent with Patient: Total time spent is greater than 50% in coordination of care (as documented) at patient's floor/unit and/or counseling patient: Coding Level of Care Code 33814 Subseq Hosp Care Lvl 2 Diagnoses Pneumonia due to COVID-19 virus U07.1; J12.82 Acute and chronic respiratory failure with hypoxia J96.21 Acute kidney injury superimposed on CKD N17.9; N18.9 Acute metabolic encephalopathy G93.41 Elevated troponin R79.89 Diabetes E11.9 Chronic kidney disease, stage 4 (severe) N18.4 Pancytopenia D61.818 Paroxysmal A-fib I48.0 Dementia F03.90 Dementia behavioral disturbance: without behavioral disturbance Dementia type: unspecified type Hypothyroidism E03.9 Hypothyroidism type: unspecified Pacemaker Z95.0 Dyslipidemia E78.5 Fall W19.XXXA DVT prophylaxis Z29.9 COPD with acute exacerbation J44.1 Acute on chronic right-sided congestive heart failure I50.813 (1) Dementia Dementia behavioral disturbance: without behavioral disturbance Dementia type: unspecified type Qualified Code(s): F03.90 - Unspecified dementia without behavioral disturbance (2) Hypothyroidism Hypothyroidism type: unspecified Qualified Code(s): E03.9 - Hypothyroidism, unspecified
[2021-12-21] MEDS ORDERED: hydrOXYzine HCl 25 MG TAB PO STA (22:57)
[2021-12-22] MEDS: INSULIN ASPART PER UNIT SC SCH ×4 (00:45→17:42)
[2021-12-22] MEDS: LEVOTHYROXINE SODIUM 25 MCG TABLET PO SCH (05:39)
[2021-12-22] MEDS: IPRATROPIUM BROMIDE HFA INHALER INH SCH ×3 (07:40→17:15)
[2021-12-22] MEDS: ALBUTEROL HFA 8 GM INHALER INH SCH ×2 (07:40→11:06)
[2021-12-22] MEDS: INSULIN GLARGINE SOLOSTAR 100 UNITS/ML 3 ML PEN SC SCH ×2 (09:00→23:45)
[2021-12-22] MEDS: dexAMETHasone 6 MG in SYRINGE 0 ML IV SCH (09:26)
[2021-12-22] MEDS: FERROUS GLUCONATE 324 MG TAB PO SCH (09:27)
[2021-12-22] MEDS: METOPROLOL TARTRATE 25 MG TAB PO SCH (09:27)
[2021-12-22] MEDS: CLOPIDOGREL BISULFATE 75 MG TAB PO SCH (09:27)
[2021-12-22] MEDS: ESCITALOPRAM OXALATE 10 MG TAB PO SCH (09:27)
[2021-12-22] MEDS: APIXABAN 2.5 MG TAB PO SCH ×2 (09:27→23:52)
[2021-12-22] MEDS: guaiFENesin 600 MG TABCR PO SCH ×2 (09:28→23:52)
[2021-12-22] MEDS: FAMOTIDINE 20 MG TAB PO SCH ×2 (09:28→23:52)
[2021-12-22] MEDS: PANTOprazole 40 MG TAB PO SCH ×2 (09:28→23:52)
[2021-12-22 10:16] LABS: BUN Creatinine Ratio 32.7 (10-20); Calcium 8.2 mg/dl (8.5-10.1); Creatinine Clr Calc Pharmacy 16.3 ml/min; Est GFR (Non-African American) 17.2 ml/min; Potassium 3.8 mmol/L (3.5-5.1)
[2021-12-22] MEDS ORDERED: DEXTROSE 5% 500 ML IV SCH (10:30)
[2021-12-22] MEDS: PREGABALIN 25 MG CAP PO SCH (10:34)
[2021-12-22] MEDS ORDERED: ALBUTEROL HFA 8 GM INHALER INH PRN (12:02)
[2021-12-22] MEDS ORDERED: IPRATROPIUM BROMIDE HFA INHALER INH PRN (15:24)
--- NOTE | 2021-12-22 23:38 | Hospitalist Progress Note ---
Date of Service December 22, 2021 Assessment & Plan (1) Pneumonia due to COVID-19 virus: Plan: Stable, no significant change. Having failure to thrive/fatigue/anorexia due to such. Cont supportive care. Day #7 of dexamethasone 6mg IV today. Plan 10 days in total. Was not a candidate for Remdesivir earlier in the stay due to advanced CKD. Never met criteria for immune-based therapy. O2 requirement has been stable. (2) COPD with acute exacerbation: Plan: 2nd to COVID-19 infection cont scheduled bronchodilators cont IV dexamethasone supportive care incentive glenys flutter valve stable O2 requirements stable (3) Acute and chronic respiratory failure with hypoxia: Plan: acute component mainly 2nd to COVID-19 pneumonia. Decompensated CHF likely also contributed. chronic component 2nd to COPD. (4) Hypernatremia: Plan: 2nd to over-diuresis and poor liquid intake. All diuretics stopped. Give D5W at 50cc/hr x 500cc then saline lock. BMP in am. (5) Acute kidney injury superimposed on CKD: Plan: KENDELL likely 2nd to COVID infection, decompensated CHF, etc. Peak Cr 3.4 Cr now 2.5 baseline Cr low 2.2 to 2.5 now also with mild hypernatremia from over-diuresis & poor liquid intake holding diuretics giving some hypotonic fluid back to her today BMP am (6) Acute on chronic right-sided congestive heart failure: Plan: echo this admission w/ severe cor pulmonale looks volume contracted on exam today D5W x 500cc today hold diuretics bmp am (7) Acute metabolic encephalopathy: Plan: 2nd to #1 in setting of underlying dementia fortunately no significant agitation -- pleasant confusion mainly most recent head CT wnl (8) Elevated troponin: Plan: myocardial demand ischemia in setting of COVID infection, decompensated CHF, KENDELL/CKD, etc No evidence of ACS (9) Diabetes: Plan: controlled w/o lows cont lantus 10 units BID cont novolog SSI (10) Chronic kidney disease, stage 4 (severe): Plan: baseline CrCl about 20 baseline Creatinine about 2.2 to 2.5 superimposed KENDELL resolved daily BMP no diuretics today - see above (11) Pancytopenia: Plan: Pt with chronic anemia Then with recent leukopenia with thrombocytopenia -- likely from viral suppression from COVID infection WBC count now normal Last Platelets - 118l last Hemglobin = 9.7 plan to repeat cbc for stability purposes in the next 1-2 days (12) Paroxysmal A-fib: Plan: cont eliquis 2.5mg BID cont metoprolol 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 (13) Dementia: Plan: advanced with superimposed metabolic encephalopathy & probable hospital psychosis fortunately no behavioral disturbance or agitation (14) Hypothyroidism: Plan: TSH 07/2021 wnl cont synthroid 25mcg daily (15) 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 (16) Dyslipidemia: (17) Fall: Plan: 12/17/21 while in COVID isolation CT head and cervical spine negative for fractures, ICH, etc bruise forehead only fortunately bruise resolving (18) DVT prophylaxis: Plan: eliquis Plan: updated pt's extensively by phone this evening he himself has recovered from COVID in the last few days PT, OT mark appreciated likely can't go back to [facility] initially; likely to need rehab at SNF post- discharge Admission and Anticipated Discharge Date Admission Date: December 16, 2021 Subjective per staff - continues to eat very poorly pleasant confusion continues spending nearly all day in bed due to weakness and desire to sleep during the visit she offers no new complaints she occasionally coughs during my assessment has some mild chest tightness but no discrete pain (tightness occurs when coughing) per staff had a "smear" of bowel movement earlier today tele - pacing or a.fib Review of Systems Review of Systems: cv - chest tightness; no orthopnea; no PND pulm - cough, wheeze; no dyspnea at rest GI - c/o abd pain earlier today to the nursing staff but no nausea/emesis Physical Exam Physical Exam: gen - pleasantly confused, NAD, coughing mouth and lips - dry MM neck - no JVD heart - RRR, s1 s2 lungs - rales bases (scant); wheezes b/l (particularly prominent when she coughs); no increased work of breathing abd - soft, NT; no HSM; BS+; mildly distended ext - no edema b/l, pulses 2+ b/l psych - oriented to person and place but not time; states she is in the hospital because of vaginal bleeding Results & Data Results & Data ([facility]) Vital Signs (Past 12 Hours) Vital Signs Temp Pulse Resp BP BP Pulse Ox 12/22/21 22:15 36.4 C L 69 18 159/83 H 98 12/22/21 19:47 36.7 C 69 20 164/98 H 100 12/22/21 18:22 36.5 C 73 19 146/85 H 95 12/22/21 16:56 36.6 C 70 19 160/88 H 98 12/22/21 12:07 36.7 C 69 18 152/73 H 98 Laboratory Results Laboratory Results - last 24 hr 12/22/21 12/22/21 12/22/21 07:35 08:06 12:03 Sodium 147 H Potassium 3.8 Chloride 102 Carbon Dioxide 37 H Anion Gap 8 BUN 83 H Creatinine 2.54 H Est Cr Clr Drug Dosing 16.3 Est GFR ( Amer) 20.0 Est GFR (Non-Af Amer) 17.2 BUN/Creatinine Ratio 32.7 H Glucose 80 POC Glucose 98 179 H Calcium 8.2 L 12/22/21 12/22/21 16:53 22:58 Sodium Potassium Chloride Carbon Dioxide Anion Gap BUN Creatinine Est Cr Clr Drug Dosing Est GFR ( Amer) Est GFR (Non-Af Amer) BUN/Creatinine Ratio Glucose POC Glucose 267 H 207 H Calcium PG Care Time/CCT Total # of Minutes Spent Total Time Spent with Patient: Total time spent is greater than 50% in coordination of care (as documented) at patient's floor/unit and/or counseling patient: Coding Level of Care Code 36123 Subseq Hosp Care Lvl 2 Diagnoses Pneumonia due to COVID-19 virus U07.1; J12.82 Acute and chronic respiratory failure with hypoxia J96.21 Acute kidney injury superimposed on CKD N17.9; N18.9 Acute on chronic right-sided congestive heart failure I50.813 Acute metabolic encephalopathy G93.41 Elevated troponin R79.89 Diabetes E11.9 Chronic kidney disease, stage 4 (severe) N18.4 Pancytopenia D61.818 Paroxysmal A-fib I48.0 Dementia F03.90 Dementia behavioral disturbance: without behavioral disturbance Dementia type: unspecified type Hypothyroidism E03.9 Hypothyroidism type: unspecified Pacemaker Z95.0 Dyslipidemia E78.5 Fall W19.XXXA DVT prophylaxis Z29.9 COPD with acute exacerbation J44.1 Hypernatremia E87.0 (1) Dementia Dementia behavioral disturbance: without behavioral disturbance Dementia type: unspecified type Qualified Code(s): F03.90 - Unspecified dementia without behavioral disturbance (2) Hypothyroidism Hypothyroidism type: unspecified Qualified Code(s): E03.9 - Hypothyroidism, unspecified
[2021-12-22] MEDS: SENNA 8.6 MG TAB PO SCH (23:52)
[2021-12-22] MEDS: POLYETHYLENE (MIRALAX) 17 GM PACK PO SCH (23:52)
[2021-12-23] MEDS: PREGABALIN 25 MG CAP PO SCH ×3 (00:04→21:29)
[2021-12-23] MEDS: LEVOTHYROXINE SODIUM 25 MCG TABLET PO SCH (06:19)
[2021-12-23] MEDS: METOPROLOL TARTRATE 25 MG TAB PO SCH (09:07)
[2021-12-23] MEDS: ESCITALOPRAM OXALATE 10 MG TAB PO SCH (09:07)
[2021-12-23] MEDS: PANTOprazole 40 MG TAB PO SCH ×2 (09:07→21:31)
[2021-12-23] MEDS: CLOPIDOGREL BISULFATE 75 MG TAB PO SCH (09:07)
[2021-12-23] MEDS: dexAMETHasone 6 MG in SYRINGE 0 ML IV SCH (09:07)
[2021-12-23] MEDS: FAMOTIDINE 20 MG TAB PO SCH ×2 (09:08→21:29)
[2021-12-23] MEDS: SENNA 8.6 MG TAB PO SCH (09:08)
[2021-12-23] MEDS: APIXABAN 2.5 MG TAB PO SCH ×2 (09:08→21:29)
[2021-12-23] MEDS: guaiFENesin 600 MG TABCR PO SCH ×2 (09:08→21:30)
[2021-12-23] MEDS: INSULIN ASPART PER UNIT SC SCH ×4 (09:09→21:18)
[2021-12-23] MEDS: POLYETHYLENE (MIRALAX) 17 GM PACK PO SCH (09:09)
[2021-12-23 09:39] LABS: BUN Creatinine Ratio 33.5 (10-20); Creatinine Clr Calc Pharmacy 17.7 ml/min; Est GFR (African American) 22.2 ml/min; Est GFR (Non-African American) 19.1 ml/min; Potassium 3.6 mmol/L (3.5-5.1)
[2021-12-23] MEDS: INSULIN GLARGINE SOLOSTAR 100 UNITS/ML 3 ML PEN SC SCH ×2 (09:47→21:37)
--- NOTE | 2021-12-23 09:59 | Hospitalist Progress Note ---
Date of Service December 23, 2021 Assessment & Plan (1) Pneumonia due to COVID-19 virus: Plan: Not hypoxic, test positive 12/16 supportive care. dexamethasone 6mg IV Was not a candidate for Remdesivir earlier in the stay due to advanced CKD. Has not meet criteria for immune-based therapy. Pancytopenia from covid improving, has baseline chronic anemia (2) Acute and chronic respiratory failure with hypoxia: Plan: covid plus cor pulmonale copd exacerbation, steroids and inhaled bronchodilators and anticholinergics daily assessment for diuretic use (3) Acute kidney injury superimposed on CKD: Plan: KENDELL likely 2nd to COVID infection, decompensated CHF, etc. CKD4 (4) Acute on chronic right-sided congestive heart failure: Plan: echo this admission w/ severe cor pulmonale looks compensated today or even slightly dry based on labs daily assessment for diuretic (5) Acute metabolic encephalopathy: Plan: underlying dementia exacerbated by metabolic stressors 12/17/[address] wnl (6) Elevated troponin: Plan: myocardial demand ischemia in setting of COVID infection, decompensated CHF, KENDELL/CKD, etc No evidence of ACS (7) Diabetes: Plan: basal bolus insulin in acceptable control given steroid use (8) Paroxysmal A-fib: Plan: cont eliquis 2.5mg BID & metoprolol 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 (9) Dementia: (10) Hypothyroidism: Plan: TSH 07/2021 wnl cont synthroid 25mcg daily (11) Fall: Plan: 12/17/21 while in COVID isolation CT head and cervical spine negative for fractures, ICH, etc bruise forehead only fortunately (12) DVT prophylaxis: Plan: eliquis Plan: PT, OT when able Admission and Anticipated Discharge Date Admission Date: December 16, 2021 Subjective Patient is sleepy today she does arouse she goes back to sleep easily she is not having respiratory distress from coughing. Review of Systems Review of Systems: Unobtainable due to cognitive status Physical Exam Physical Exam: The patient appeared stable no respiratory distress Vital signs as documented. Lungs are monitor coarse breath sounds heard bilaterally anteriorly Cardiac exam, Rhythm is regular.. Occasional A. fib on the monitor rate controlled otherwise paced Abdominal exam reveals normal bowel sounds, soft non tender, no masses Extremities are nonedematous and both pedal pulses are normal. Neurologic exam is wakens of voice and tactile stimuli does make eye contact chooses to go back to sleep does not interact otherwise Skin is without bruises or rashes Psychologically is with concerns for significant memory impairment Results & Data Results & Data ([facility]) Vital Signs (Past 12 Hours) Vital Signs Temp Pulse Pulse Resp BP BP Pulse Ox 12/23/21 08:01 97.7 F 69 18 164/94 H 97 12/23/21 03:30 97.9 F 70 20 186/79 H 97 12/22/21 22:20 84 12/22/21 22:15 97.5 F L 69 18 159/83 H 98 PG Care Time/CCT Total # of Minutes Spent Total Time Spent with Patient: Total time spent is greater than 50% in coordination of care (as documented) at patient's floor/unit and/or counseling patient: Coding Level of Care Code 14569 Subseq Hosp Care Lvl 2 Diagnoses Pneumonia due to COVID-19 virus U07.1; J12.82 Acute and chronic respiratory failure with hypoxia J96.21 Acute kidney injury superimposed on CKD N17.9; N18.9 Acute on chronic right-sided congestive heart failure I50.813 Acute metabolic encephalopathy G93.41 Elevated troponin R79.89 Diabetes E11.9 Paroxysmal A-fib I48.0 Dementia F03.90 Dementia behavioral disturbance: without behavioral disturbance Dementia type: unspecified type Hypothyroidism E03.9 Hypothyroidism type: unspecified Fall W19.XXXA DVT prophylaxis Z29.9 (1) Dementia Dementia behavioral disturbance: without behavioral disturbance Dementia type: unspecified type Qualified Code(s): F03.90 - Unspecified dementia without behavioral disturbance (2) Hypothyroidism Hypothyroidism type: unspecified Qualified Code(s): E03.9 - Hypothyroidism, unspecified
[2021-12-23] MEDS: HEPARIN 100 UNIT/ML 5ML FLUSH FLUSH PRN (21:09)
[2021-12-24] MEDS: LEVOTHYROXINE SODIUM 25 MCG TABLET PO SCH (06:07)
--- NOTE | 2021-12-24 07:47 | Hospitalist Progress Note ---
Date of Service December 24, 2021 Assessment & Plan (1) Pneumonia due to COVID-19 virus: Plan: Not hypoxic, test positive 12/16 supportive care. 11 days isolation december 27 dexamethasone 6mg IV Was not a candidate for Remdesivir earlier in the stay due to advanced CKD. Has not meet criteria for immune-based therapy. Pancytopenia from covid improving, has baseline chronic anemia (2) Acute and chronic respiratory failure with hypoxia: Plan: covid plus cor pulmonale copd exacerbation, steroids and inhaled bronchodilators and anticholinergics (3) Acute kidney injury superimposed on CKD: Plan: KENDELL likely 2nd to COVID infection, decompensated CHF, etc. CKD4 (4) Acute on chronic right-sided congestive heart failure: Plan: echo this admission w/ severe cor pulmonale (5) Acute metabolic encephalopathy: Plan: underlying dementia exacerbated by metabolic stressors 12/17/[address] wnl (6) Elevated troponin: Plan: myocardial demand ischemia in setting of COVID infection, decompensated CHF, KENDELL/CKD, etc No evidence of ACS (7) Diabetes: Plan: basal bolus insulin in acceptable control given steroid use (8) Paroxysmal A-fib: Plan: cont eliquis 2.5mg BID & metoprolol 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 (9) Dementia: (10) Hypothyroidism: Plan: TSH 07/2021 wnl cont synthroid 25mcg daily (11) Fall: Plan: 12/17/21 while in COVID isolation CT head and cervical spine negative for fractures, ICH, etc bruise forehead only fortunately (12) DVT prophylaxis: Plan: eliquis Plan: PT, OT when able Admission and Anticipated Discharge Date Admission Date: December 16, 2021 Results & Data Results & Data ([facility]) Vital Signs (Past 12 Hours) Vital Signs Temp Pulse Pulse Resp BP Pulse Ox 12/24/21 07:39 97.9 F 75 20 158/81 H 96 12/24/21 06:10 71 12/24/21 03:59 70 12/23/21 22:00 98.4 F 68 20 157/83 H 99 12/23/21 20:00 97.7 F 70 20 156/75 H 96 PG Care Time/CCT Total # of Minutes Spent Total Time Spent with Patient: Total time spent is greater than 50% in coordination of care (as documented) at patient's floor/unit and/or counseling patient: Coding Diagnoses Pneumonia due to COVID-19 virus U07.1; J12.82 Acute and chronic respiratory failure with hypoxia J96.21 Acute kidney injury superimposed on CKD N17.9; N18.9 Acute on chronic right-sided congestive heart failure I50.813 Acute metabolic encephalopathy G93.41 Elevated troponin R79.89 Diabetes E11.9 Paroxysmal A-fib I48.0 Dementia F03.90 Dementia behavioral disturbance: without behavioral disturbance Dementia type: unspecified type Hypothyroidism E03.9 Hypothyroidism type: unspecified Fall W19.XXXA DVT prophylaxis Z29.9 (1) Dementia Dementia behavioral disturbance: without behavioral disturbance Dementia type: unspecified type Qualified Code(s): F03.90 - Unspecified dementia without behavioral disturbance (2) Hypothyroidism Hypothyroidism type: unspecified Qualified Code(s): E03.9 - Hypothyroidism, unspecified
[2021-12-24] MEDS: INSULIN ASPART PER UNIT SC SCH ×2 (08:42→12:03)
[2021-12-24] MEDS: PREGABALIN 25 MG CAP PO SCH (08:50)
[2021-12-24] MEDS: dexAMETHasone 6 MG in SYRINGE 0 ML IV SCH (08:50)
[2021-12-24] MEDS: POLYETHYLENE (MIRALAX) 17 GM PACK PO SCH (08:50)
[2021-12-24] MEDS: SENNA 8.6 MG TAB PO SCH (08:50)
[2021-12-24] MEDS: METOPROLOL TARTRATE 25 MG TAB PO SCH (08:50)
[2021-12-24] MEDS: FAMOTIDINE 20 MG TAB PO SCH (08:51)
[2021-12-24] MEDS: ESCITALOPRAM OXALATE 10 MG TAB PO SCH (08:51)
[2021-12-24] MEDS: PANTOprazole 40 MG TAB PO SCH (08:51)
[2021-12-24] MEDS: CLOPIDOGREL BISULFATE 75 MG TAB PO SCH (08:51)
[2021-12-24] MEDS: APIXABAN 2.5 MG TAB PO SCH (08:51)
[2021-12-24] MEDS: guaiFENesin 600 MG TABCR PO SCH (08:51)
[2021-12-24] MEDS ORDERED: BUMETANIDE 1 MG TAB PO SCH (09:00)
[2021-12-24] MEDS: INSULIN GLARGINE SOLOSTAR 100 UNITS/ML 3 ML PEN SC SCH (09:23)
--- NOTE | 2021-12-24 17:38 | Discharge Summary ---
Date of Service December 24, 2021 Admission HPI Per Admitting Provider Maureen Hagen is an 81yo female with PMHx significant for chronic hypoxic hypercapnic respiratory failure (on 3L NC at home), CAD (on Plavix), HFmrEF (EF 45-50% in 11/2020), T2DM (A1c 6.4 in 10/2021), a-fib (s/p AV node ablation and s/p PPM, on BB and Eliquis), CKD4 (baseline Cr ~2.3-2.8), h/o B-cell lymphoma (chest port in place, no current chemo), macrocytic anemia, h/o GI bleed, PMR, and depression/anxiety who presented to [facility] ED on 12/16 from [facility] due to shortness of breath. Patient reports having nasal/sinus congestion, non-productive cough and worsening shortness of breath for the last several days. She tested positive for COVID-19 this morning via home rapid test. She usually has baseline 3L/min NC requirement but was reportedly hypoxic to 70s on this early today so EMS was called. Patient is unsure if she has been vaccinated for COVID-19. Denies fever/chills or chest pain. In the ED the patient was tachypneic to 28 and hypoxic to 87% initially, although SpO2 has remained in high 90s on 4L NC. Labs significant for moderate lymphopenia 0.79, Hgb 9.1 (~baseline), plts 119. BUN 75/Cr 3.42 (higher than baseline). BNP 1933. hsTrop 69 (EKG showing AV-dual paced rhythm). Repeat 2 hours later was 72 (minimal change) Procal 0.26, Lactate 1.3. COVID-19 positive. CXR with chronic cardiomegaly and some cephalization but without evidence for pulmonary edema or pleural effusions. No overt opacities either although there is questionable left retrocardiac opacity which may represent PNA. Patient was given Cefepime 2g IV x1 and Lasix 40mg IV x1. Principal Diagnosis acute on chronic respiratory failure with hypoixa copd cor pulmonale covid pneumonia Discharge Exam The patient appeared stable and at her baseline Vital signs as documented. Lungs are clear to auscultation and appear unlabored does still have a loose cough Cardiac exam, Rhythm is regular.. No murmurs, rubs or gallops. Abdominal exam reveals normal bowel sounds, soft non tender, no masses Extremities are nonedematous and both pedal pulses are normal. Neurologic exam is alert and oriented, no focal loss of strength or sensation Skin is without bruises or rashes Psychologically is without concerns for anxiety or depression. Discharge Data Allergies Allergy/AdvReac Type Severity Reaction Status Date / Time eptifibatide Allergy Severe ANAPHYLAXIS Verified 12/16/21 18:46 hornet venom Allergy Severe WASP VENOM Verified 12/16/21 18:46 PROTEIN-ANAPHYLAXIS levofloxacin [From Levaquin] Allergy Severe Hives Verified 12/16/21 18:46 rosuvastatin [From Crestor] Allergy Intermediate Rash Verified 12/16/21 18:46 amlodipine AdvReac Severe Nausea Verified 12/16/21 18:46 atorvastatin AdvReac Intermediate MUSCLE PAIN Verified 12/16/21 18:46 azithromycin AdvReac Intermediate Palpitation Verified 12/16/21 18:46 s codeine AdvReac Intermediate VOMITING Verified 12/16/21 18:46 cortisone AdvReac Intermediate INCREASES Verified 12/16/21 18:46 SUGAR AND VOMITING? ezetimibe AdvReac Intermediate MUSCLE PAIN Verified 12/16/21 18:46 gemfibrozil AdvReac Intermediate NAUSEA Verified 12/16/21 18:46 hydralazine AdvReac Intermediate VOMITING Verified 12/16/21 18:46 ibuprofen AdvReac Intermediate VOMITING Verified 12/16/21 18:46 AND DIARRHEA iodine AdvReac Intermediate SHELLFISH Verified 12/16/21 18:46 - VOMITING meperidine AdvReac Intermediate VOMITING Verified 12/16/21 18:46 ondansetron AdvReac Intermediate vomiting Verified 12/16/21 18:46 ranitidine [From Zantac] AdvReac Intermediate dyspepsia Verified 12/16/21 18:46 shellfish derived AdvReac Intermediate VOMITING Verified 12/16/21 18:46 simvastatin AdvReac Intermediate MUSCLE PAIN Verified 12/16/21 18:46 Sulfa (Sulfonamide AdvReac Intermediate VOMITING Verified 12/16/21 18:46 Antibiotics) warfarin AdvReac Intermediate EXTREME Verified 12/16/21 18:46 BLEEDING TIMES Consultations 12/16/21 19:55 ED Decision to Admit Stat Ordered Studies 12/17/21 19:01 CT cervical spine wo con Stat CT head/brain wo con Stat Hospital Course (1) Pneumonia due to COVID-19 virus: Not hypoxic, test positive 12/16 supportive care. 11 days isolation december 27 dexamethasone 6mg continue as outpt to complete course Was not a candidate for Remdesivir earlier in the stay due to advanced CKD. Has not meet criteria for immune-based therapy. Pancytopenia from covid improving, has baseline chronic anemia (2) Acute and chronic respiratory failure with hypoxia: covid plus cor pulmonale copd exacerbation, steroids and inhaled bronchodilators and anticholinergics (3) Acute kidney injury superimposed on CKD: KENDELL likely 2nd to COVID infection, decompensated CHF, etc. CKD4 (4) Acute on chronic right-sided congestive heart failure: echo this admission w/ severe cor pulmonale (5) Acute metabolic encephalopathy: underlying dementia exacerbated by metabolic stressors 12/17/[address] wnl (6) Elevated troponin: myocardial demand ischemia in setting of COVID infection, decompensated CHF, KENDELL/CKD, etc No evidence of ACS (7) Diabetes: basal bolus insulin in acceptable control given steroid use (8) Paroxysmal A-fib: cont eliquis 2.5mg BID & metoprolol 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 (9) Dementia: (10) Hypothyroidism: TSH 07/2021 wnl cont synthroid 25mcg daily (11) Fall: 12/17/21 while in COVID isolation CT head and cervical spine negative for fractures, ICH, etc bruise forehead only fortunately (12) DVT prophylaxis: eliquis PT, OT when able Total Time Total Time Spent Total Time Spent (In Minutes): It required greater than 30 minutes to prepare this patient for discharge Discharge Plan Discharge Items Patient Disposition: Personal Group Home Reason For Visit: SHORTNESS OF BREATH Discharge Diagnosis: covid pneumonia acute on chronic respiratory failure with hypoxia cor pulmonale elevated troponin from demand ischemia Activity: Per Instructions section Non-emergency contact: Primary Care Provider Call non-emergency contact if: your symptoms worsen and you have a fever Follow-up/Referrals: Lizet Jeter DO [Primary Care Provider] - Diet: Carb Consistent or DM2 Addtl Attending Provider Instructions: You have been diagnosed with covid infection, it would be recommended that you quarantine yourself for 10 days from your first test or first symptoms, and if at the 10th day you have no symptoms the you can come off quarantine but use common sense precautions. Quarantine means attempting to stay away from people who have not had an active covid infection in the past, and if you have to be around others to wear a mask even if you are indoors, do not share a room to sleep in with others until you are out of quarantine. If you still have symptoms at the 10th day, continue to quarantine until you are symptom free for 48 hours Pending Studies at Discharge: No Stand-Alone Forms: My [facility] [place] [employer], Smoking Cessation Skilled Items Patient informed of condition?: Yes DNR: Yes Discharge Level of Care: Other Communicable Disease: Yes (off 10 day covid isolation 12/27/21) Discharge Prognosis: Stable Lines: None Urinary Catheter: No Medications and DC Order Prescriptions: New dexamethasone 6 mg tablet 6 mg PO DAILY Qty: 5 RF: 0 Continued clopidogrel 75 mg tablet 75 mg PO QAM Qty: 90 RF: 3 metoprolol tartrate 50 mg tablet 25 mg PO DAILY Qty: 180 RF: 3 Eliquis 2.5 mg tablet 2.5 mg PO BID 30 Days Qty: 90 RF: 3 pregabalin [Lyrica] 25 mg capsule 25 mg PO BID RF: 0 multivitamin Tablet 1 tab PO QAM RF: 0 levothyroxine [Synthroid] 25 mcg tablet 25 mcg PO DAILYBB RF: 0 ipratropium-albuterol 0.5 mg-3 mg(2.5 mg base)/3 mL Solution For Nebulization 3 ml INHALATION Q6H PRN (Reason: Shortness Of Breath Or Wheezing) RF: 0 famotidine 20 mg tablet 20 mg PO BID RF: 0 allopurinol 300 mg tablet 300 mg PO QAM RF: 0 insulin aspart U-100 [Novolog Flexpen U-100 Insulin] 100 unit/mL (3 mL) insulin pen 11 unit SUBCUT .BID UD RF: 0 acetaminophen [Tylenol] 325 mg Tablet 650 mg PO .Q4-6HRS MDD 3 GRAMS/24 HOURS PRN (Reason: FEVER/PAIN) RF: 0 pantoprazole 40 mg Tablet,Delayed Release (Dr/Ec) 40 mg PO BID RF: 0 escitalopram oxalate [Lexapro] 10 mg Tablet 10 mg PO DAILY RF: 0 ferrous gluconate 324 mg (37.5 mg iron) Tablet 324 mg PO DAILY RF: 0 tramadol 50 mg tablet 50 mg PO Q12H PRN (Reason: pain) RF: 0 acetaminophen [Tylenol Extra Strength] 500 mg Tablet 1,000 mg PO AMPM MDD 3 GRAMS/24 HOURS RF: 0 insulin aspart U-100 [Novolog Flexpen U-100 Insulin] 100 unit/mL (3 mL) insulin pen 0 unit SUBCUT QDD RF: 0 magnesium oxide 400 mg magnesium Tablet 400 mg PO DAILY RF: 0 insulin glargine [Basaglar KwikPen U-100 Insulin] 100 unit/mL (3 mL) insulin pen 10 unit SUBCUT QPM RF: 0 Changed bumetanide 2 mg tablet 1 mg PO DAILY Qty: 90 RF: 3 Discontinued cephalexin 500 mg capsule 500 mg PO BID RF: 0 Discharge Orders: Discharge Order (Routine); Ordered 12/24/21 Ordered By: Zachery Lomeli Admission Data Admit Date/Time: 12/16/21 21:36 Attending Provider: Zachery Lomeli Admit Provider: Gennaro Perea Primary Care Provider: Lizet Jeter Other Providers: Jeffery Del Rio Other Interventions: Discharge Summary Assessment (RN) Last Done: 12/24/21 13:26 Coding Level of Care Code D/C DAY MANAGEMENT >30 MINS Diagnoses Pneumonia due to COVID-19 virus U07.1; J12.82 Acute and chronic respiratory failure with hypoxia J96.21 Acute kidney injury superimposed on CKD N17.9; N18.9 Acute on chronic right-sided congestive heart failure I50.813 Acute metabolic encephalopathy G93.41 Elevated troponin R79.89 Diabetes E11.9 Paroxysmal A-fib I48.0 Dementia F03.90 Dementia behavioral disturbance: without behavioral disturbance Dementia type: unspecified type Hypothyroidism E03.9 Hypothyroidism type: unspecified Fall W19.XXXA DVT prophylaxis Z29.9
== END 2021-12-24 16:23 | disposition home or self-care (01) | DRG 177 ==
LOC: ED 16:55 → EDINP 21:36 → SUATTDRO 21:36 → 2S 12-17 03:39 → 2W 12-22 19:35